=== PATIENT | male | born 1955 | race Caucasian/White ===

== ENCOUNTER 2016-12-28 21:23 | Emergency (ER) | payer MEDICARE ==
[~2016-12-28] VITALS: Ht 167.6 cm; Wt 59.0 kg
[~2016-12-28 21:23] MED LIST: ACHD5005 PO; ALPR.25T PO; ALPR.5T PO; BACL10TA PO; CELE50CA PO; CLCX100C; CLCX200C; CRS350T PO; CYCL10TA9 PO; DULO30CA3 PO; GABA-488 PO; GABA300C PO; HYDR-2890 PO; HYDR-2997 PO; HYDR-3061 PO; HYDR-3583 PO; HYDR-3720; HYDR-3720 PO; HYDR-3731 PO; HYDR-3812 PO; HYDR-3874 PO; HYDR-623 PO; IBUP-15 PO; MECL25TA56 PO; MELO7.5T46 PO; MEPE50TA PO; METH4TAB PO; MIRT15TA6 PO; MORP15TA8 PO; MORP15TA97 PO; NAPR-243 PO; NAPR500T PO; NF-ESOM40C PO; ONDA8TAB9 PO; ORPH100T PO; OXYC-272 PO; OXYC-465 PO; OXYC1CAP3 PO; OXYC1TAB28 PO; PRD20T PO; PREG100C PO; PREG50C PO; SULF1TAB35 PO; TRAM50TA2 PO; TRM50T PO; flexeril PO
[2016-12-28] MEDS ORDERED: DOXYCYCLINE 100 MG (VIBRAMYCIN) TABLET PO SCH (21:45)
[2016-12-28] MEDS ORDERED: DOXY100T2 PO (21:45)
--- NOTE | 2016-12-28 21:46 | ED Integumentary General ---
General Chief Complaint: Bite-Animal/Human/Insect Stated Complaint: TICK BITE Nursing Triage Note: PT TO ED 10 W/ C/O TICK BITE TO BACK. TICK STILL EMBEDDED IN BACK AT THIS TIME PT STATES HE CANNOT REMOVE IT. Source: patient Exam Limitations: no limitations History of Present Illness Time seen by provider: 21:42 Initial Comments To ER with complaints of a tick that is stuck to his back just below the right shoulder blade in such a location that he is unable to reach it himself. Believes this has been present for about 3 days. He complains of some nausea and general malaise but no fevers or joint pains or rash.. Timing/Duration: just prior to arrival Severity: moderate Associated Symptoms: No edema Allergies and Home Medications Allergies Coded Allergies: ibuprofen (Verified Allergy, Unknown, 04/05/15) HYPERTENSION Constitutional: see HPI EENTM: see HPI Respiratory: no symptoms reported Cardiovascular: no symptoms reported Genitourinary: no symptoms reported Musculoskeletal: no symptoms reported Skin: see HPI Endocrine: No Symptoms Reported Past Ijxppbe-Tvpdke-Jifbne Hx Patient Social History Alcohol Use: Denies Use Recreational Drug Use: No (DENIES TO THIS RN) Smoking Status: Current Everyday Smoker Type Used: Cigarettes Recent Foreign Travel: No Contact w/Someone Who Travel: No Recent Infectious Disease Expo: No Recent Hopitalizations: No Immunizations Up To Date Tetanus Booster (TDap): Less than 5yrs PED Vaccines UTD: No Date of Influenza Vaccine: Apr 17, 2014 Seasonal Allergies Seasonal Allergies: No Surgeries HX Surgeries: Yes (back) Surgeries: Appendectomy, Ear Surgery, Gallbladder, Orthopedic Respiratory Hx Respiratory Disorders: Yes (PER OLD RECORDS, PT HAS COPD, BUT PT DENIES) Respiratory Disorders: COPD Cardiovascular Hx Cardiac Disorders: No Neurological Hx Neurological Disorders: Yes (RESTLESS LEG SYNDROME) Reproductive System Hx Reproductive Disorders: No Sexually Transmitted Disease: No HIV/AIDS: No Genitourinary Hx Genitourinary Disorders: No Gastrointestinal Hx Gastrointestinal Disorders: Yes (CHRONIC DYSPHAGIA AND HOARSENESS; ESOPHAGEAL STRICTURE) Gastrointestinal Disorders: Gastroesophageal Reflux Musculoskeletal Hx Musculoskeletal Disorders: Yes (C2-C6 FUSION NECK,ROTATOR CUFF REPAIR; CHRONIC NECK AND BACK PAIN ) Musculoskeletal Disorders: Chronic Back Pain Endocrine Hx Endocrine Disorders: No HEENT HX ENT Disorders: Yes (CHRONIC HOARSENESS. HISTORY OF SKIN CA OF LIP AND EAR) Hearing Impairment: Hard of Hearing Cancer Hx Cancer: Yes Cancer: Skin Psychosocial Hx Psychiatric Problems: Yes (POLYSUBSTANCE ABUSE/OVERDOSES per old records) Behavioral Health Disorders: Anxiety, Suicide Attempts Integumentary HX Skin/Integumentary Disorder: No Blood Transfusions Hx Blood Disorders: No Adverse Reaction to a Blood Tr: No Family Medical History Significant Family History: Cancer Family Medial History: Cancer 03 FATHER (PROSTATE) 03 MOTHER (BREAST CA ) 09 BROTHER (THROAT/PANCREATIC) 09 SISTER (LIVER) DEAFNESS 03 FATHER 09 BROTHER Family history: Breast disease 03 MOTHER (BREAST CA) History of - respiratory disease Prostate cancer 03 FATHER Stroke 03 MOTHER Visual impairment Physical Exam Vital Signs Vital Sign - Last 12Hours 12/28/16 21:31 Temp 99.4 Pulse 82 Resp 20 B/P (MAP) 143/94 Pulse Ox 98 O2 Delivery Room Air Capillary Refill : Less Than 3 Seconds General Appearance: WD/WN, no apparent distress HEENT: PERRL/EOMI, normal ENT inspection Neck: non-tender, full range of motion Respiratory: no respiratory distress, no accessory muscle use Gastrointestinal: normal bowel sounds, non tender, soft Neurologic/Psychiatric: alert, normal mood/affect, oriented x 3 Skin: normal color, warm/dry Skin Problem Location: other (there is a small 2 millimeter in diameter flat brown tick attached to him just inferior to the inferior and medial border of the right scapula. There is about 1 cm of surrounding erythema. No erythema migrans. No other rash. Tick was easily removed with a pair of tweezers.) Progress/Results/Core Measures Results/Orders My Orders Orders - ALBA ROSA APRN Tick Panel With Lyme Eia (12/28/16 21:41) Doxycycline Hyclate Tablet (Vibramycin T (12/28/16 21:45) Vital Signs/I&O Vital Sign - Last 12Hours 12/28/16 21:31 Temp 99.4 Pulse 82 Resp 20 B/P (MAP) 143/94 Pulse Ox 98 O2 Delivery Room Air Blood Pressure Mean: 110 Departure Impression Impression: Primary Impression: Tick bite Disposition: 01 HOME, SELF-CARE Condition: Stable Departure-Patient Inst. Decision time for Depature: 21:45 Referrals: NO,LOCAL PHYSICIAN (PCP/Family) Primary Care Physician Patient Instructions: Insect Bites and Stings (DC) Add. Discharge Instructions: 1. Antibiotics as directed 2. Avoid direct sunlight while you're taking the antibiotics as this may cause a rash 3. Return to ER for any worsening All discharge instructions reviewed with patient and/or family. Voiced understanding. Scripts Doxycycline Hyclate (Doxycycline Hyclate) 100 Mg Tablet 100 MG PO BID, #20 TAB Prov: ALBA ROSA APRN 12/28/16 ALBA ROSA APRN December 28, 2016 21:45
[2016-12-28 21:56] VITALS: BP 0/0
[2016-12-30 13:59] LABS: EHRLICHIA CHAFFEENSIS G ABY <1:16 (<1:16)
[2016-12-30 15:23] LABS: IGG ROCKY MOUNTAIN SPOTTED FEV <1:16 (<1:16); IGM ROCKY MOUNTAIN SPOTTED FEV <1:10 (<1:10); TULAREMIA ANTIBODY <1:20
[2016-12-30 22:03] LABS: LYME AB G M 0.04 Index (0.00-0.89)
[2016-12-31 07:31] LABS: LYME AB INTERP Negative (Negative)
== END 2016-12-28 21:56 | disposition home or self-care (01) ==
LOC: EDUNIT# 21:23 → ER 21:26
DX: S20.461A Insect bite (nonvenomous) of right back wall of thorax, initial encounter (principal); J44.9 Chronic obstructive pulmonary disease, unspecified; F17.210 Nicotine dependence, cigarettes, uncomplicated; W57.XXXA Bitten or stung by nonvenomous insect and other nonvenomous arthropods, initial encounter; Y99.8 Other external cause status
CPT/HCPCS: 36415; 86618; 86666; 86668; 86757; 99283

== ENCOUNTER 2017-01-22 21:33 | Emergency (ER) | payer MEDICARE ==
[~2017-01-22] VITALS: Ht 182.9 cm; Wt 65.8 kg
[~2017-01-22 21:33] MED LIST changes: +DOXY100T2 PO
[2017-01-22 21:59] LABS: BASOPHILS % (AUTO) 1 % (0-10); EOSINOPHILS # (AUTO) 0.1 10^3/uL (0.0-0.3); EOSINOPHILS % (AUTO) 1 % (0-10); LYMPHOCYTES # (AUTO) 3.6 X 10^3 (1.0-4.0); LYMPHOCYTES % (AUTO) 43 % (12-44); MEAN CORPUSCULAR HEMOGLOBIN 32 PG (25-34); MEAN CORPUSCULAR HGB CONC 33 G/DL (32-36); MEAN CORPUSCULAR VOLUME 97 FL (80-99); MEAN PLATELET VOLUME 9.2 FL (7.4-10.4); MONOCYTES # (AUTO) 0.7 X 10^3 (0.0-1.0); MONOCYTES % (AUTO) 8 % (0-12); NEUTROPHILS # (AUTO) 4.1 X 10^3 (1.8-7.8); NEUTROPHILS % (AUTO) 48 % (42-75); PLATELET COUNT 210 10^3/uL (130-400); RED CELL DISTRIBUTION WIDTH 13.6 % (10.0-14.5); WHITE BLOOD COUNT 8.5 10^3/uL (4.3-11.0)
[2017-01-22 22:12] LABS: ALANINE AMINOTRANSFERASE 11 U/L (0-55); ALBUMIN 4.1 G/DL (3.2-4.5); ANION GAP 12 MMOL/L (5-14); ASPARTATE AMINO TRANSFERASE 14 U/L (5-34); BILIRUBIN,TOTAL 0.4 MG/DL (0.1-1.0); BLOOD UREA NITROGEN 18 MG/DL (7-18); BUN/CREATININE RATIO 21; CALCIUM 9.4 MG/DL (8.5-10.1); CARBON DIOXIDE 23 MMOL/L (21-32); CHLORIDE 106 MMOL/L (98-107); CREATININE SERUM 0.85 MG/DL (0.60-1.30); GFR ESTIMATED > 60; GLUCOSE 97 MG/DL (70-105); POTASSIUM 3.4 MMOL/L (3.6-5.0); SODIUM 141 MMOL/L (135-145); TOTAL PROTEIN 7.2 G/DL (6.4-8.2)
[2017-01-22 22:13] LABS: ALCOHOL < 10 MG/DL (<10)
[2017-01-22 22:14] LABS: CREATINE KINASE 109 U/L (30-200)
[2017-01-22 22:20] LABS: MYOGLOBIN SERUM 26.5 NG/ML (10.0-92.0)
[2017-01-22] MEDS: fentaNYL INJECTION 100 MCG/2 ML AMP IVP ONE ×2 (22:43→23:51)
[2017-01-22 23:56] LABS: BILIRUBIN,URINE NEGATIVE (NEGATIVE); KETONES,URINE NEGATIVE (NEGATIVE); LEUKOCYTE ESTERASE ,URINE NEGATIVE (NEGATIVE); NITRITE,URINE NEGATIVE (NEGATIVE); PH,URINE 5 (5-9); PROTEIN,URINE 1+ (NEGATIVE); UROBILINOGEN,URINE 1 MG/DL (NORMAL)
[2017-01-23 00:02] LABS: SQUAMOUS EPITHELIAL CELL,UR RARE /HPF
[2017-01-23 00:03] LABS: CALCIUM OXALATE CRYSTALS,UR FEW /LPF
[2017-01-23] MEDS: IOHEXOL 350 MG/ML 100 ML (OMNIPAQUE 350) VIAL IV ONE (00:12)
[2017-01-23] MEDS: NS 100 ML (IVPB) BAG IV ONE (00:12)
[2017-01-23] MEDS: FAMOTIDINE 20MG/2ML IV (PEPCID) IV STA (01:23)
[2017-01-23] MEDS: ANTACID SUSP 30 ML UDC (MYLANTA) PO ONE (01:23)
[2017-01-23] MEDS: LIDOCAINE 2% VISCOUS 15 ML UDC PO ONE (01:23)
--- NOTE | 2017-01-23 02:01 | ED General ---
General Chief Complaint: Dizziness/Syncope Stated Complaint: DIZZINESS/PT FELL OUTSIDE THE HOSPITAL Nursing Triage Note: PTS FAMILY BROUGHT THE PT TO ED, FAMILY STATES HE FELL IN THE PARKING LOT, C-COLLAR APPLIED UPON ARRIVAL INTO ED. THE PT STATES THAT HE HAS BEEN BLACKING OUT THE PAST FEW DAYS. IS ORIENTED TO PERSON ONLY AND VERY LETHARGIC Nursing Sepsis Screen: No Definite Risk Source of Information: Patient, Family Exam Limitations: No Limitations History of Present Illness Time Seen by Provider: 21:40 Initial Comments This 61-year-old man was brought to the emergency room by his family. They did not stay. They told nursing staff that they had not seen him in many years and did not know his history well. This provider did not have opportunity to visit with family. Patient is relatively poor historian. He reports that he has been having "blacking out" episodes over the past few days. He has generalized weakness. He had some chest pain over the past few days but none now. The symptoms of "blackouts" only happen upon standing. He is a 3 pack per day smoker. He reports head and neck pain at present. He is in a c-collar. He fell in the parking lot on the way into the building. Patient reports that he hurts all over. Allergies and Home Medications Allergies Coded Allergies: ibuprofen (Verified Allergy, Unknown, 04/05/15) HYPERTENSION Home Medications Doxycycline Hyclate 100 Mg Tablet, 100 MG PO BID, #20 Prescribed by: ALBA ROSA on 12/28/16 1975 Omeprazole 20 Mg Tablet.dr, 20 MG PO BID, #30 Prescribed by: KRISTINA GOMES on 01/23/17 0217 Constitutional: see HPI, weakness EENTM: see HPI Respiratory: no symptoms reported Cardiovascular: no symptoms reported Gastrointestinal: no symptoms reported Genitourinary: no symptoms reported Musculoskeletal: see HPI Skin: no symptoms reported Psychiatric/Neurological: See HPI Hematologic/Lymphatic: No Symptoms Reported Past Oescwri-Wavxpk-Xizeoj Hx Patient Social History Alcohol Use: Denies Use Recreational Drug Use: No Smoking Status: Current Everyday Smoker Type Used: Cigarettes Recent Foreign Travel: No Contact w/Someone Who Travel: No Recent Infectious Disease Expo: No Recent Hopitalizations: No Immunizations Up To Date Tetanus Booster (TDap): Less than 5yrs PED Vaccines UTD: No Date of Influenza Vaccine: Apr 17, 2014 Seasonal Allergies Seasonal Allergies: No Surgeries HX Surgeries: Yes (back) Surgeries: Appendectomy, Ear Surgery, Gallbladder, Orthopedic Respiratory Hx Respiratory Disorders: Yes (PER OLD RECORDS, PT HAS COPD, BUT PT DENIES) Respiratory Disorders: COPD Cardiovascular Hx Cardiac Disorders: No Neurological Hx Neurological Disorders: Yes (RESTLESS LEG SYNDROME) Reproductive System Hx Reproductive Disorders: No Sexually Transmitted Disease: No HIV/AIDS: No Genitourinary Hx Genitourinary Disorders: No Gastrointestinal Hx Gastrointestinal Disorders: Yes (CHRONIC DYSPHAGIA AND HOARSENESS; ESOPHAGEAL STRICTURE) Gastrointestinal Disorders: Gastroesophageal Reflux Musculoskeletal Hx Musculoskeletal Disorders: Yes (C2-C6 FUSION NECK,ROTATOR CUFF REPAIR; CHRONIC NECK AND BACK PAIN ) Musculoskeletal Disorders: Chronic Back Pain Endocrine Hx Endocrine Disorders: No HEENT HX ENT Disorders: Yes (CHRONIC HOARSENESS. HISTORY OF SKIN CA OF LIP AND EAR) Hearing Impairment: Hard of Hearing Cancer Hx Cancer: Yes Cancer: Skin Psychosocial Hx Psychiatric Problems: Yes (POLYSUBSTANCE ABUSE/OVERDOSES per old records) Behavioral Health Disorders: Anxiety, Suicide Attempts Integumentary HX Skin/Integumentary Disorder: No Blood Transfusions Hx Blood Disorders: No Adverse Reaction to a Blood Tr: No Family Medical History Significant Family History: Cancer Family Medial History: Cancer 03 FATHER (PROSTATE) 03 MOTHER (BREAST CA ) 09 BROTHER (THROAT/PANCREATIC) 09 SISTER (LIVER) DEAFNESS 03 FATHER 09 BROTHER Family history: Breast disease 03 MOTHER (BREAST CA) History of - respiratory disease Prostate cancer 03 FATHER Stroke 03 MOTHER Visual impairment Physical Exam Vital Signs Vital Sign - Last 12Hours 01/22/17 01/23/17 21:35 02:07 Temp 98.7 Pulse 79 Resp 22 B/P (MAP) 161/89 Pulse Ox 97 Capillary Refill : Less Than 3 Seconds General Appearance: No Apparent Distress, WD/WN HEENT: PERRL/EOMI, Normal ENT Inspection, Pharynx Normal Neck: Normal Inspection, Tender Midline, Other (In c-collar, tender posteriorly ) Respiratory: Lungs Clear, Normal Breath Sounds, No Accessory Muscle Use, No Respiratory Distress Cardiovascular: Regular Rate, Rhythm, No Edema, No Murmur Gastrointestinal: Normal Bowel Sounds, Non Tender, Soft Extremity: Normal Inspection, Non Tender, No Calf Tenderness, No Pedal Edema Neurologic/Psychiatric: Alert, No Motor/Sensory Deficits, pedigree researcher II-XII Norm as Tested, Other (Appears hypersomnolent and mildly confused. Somewhat poor historian) Skin: Normal Color, Warm/Dry Progress/Results/Core Measures Results/Orders Lab Results Laboratory Tests Test 01/22/17 21:39 01/22/17 23:49 Range/Units White Blood Count 8.5 4.3-11.0 10^3/uL Red Blood Count 4.50 4.35-5.85 10^6/uL Hemoglobin 14.5 13.3-17.7 G/DL Hematocrit 44 40-54 % Mean Corpuscular Volume 97 80-99 FL Mean Corpuscular Hemoglobin 32 25-34 PG Mean Corpuscular Hemoglobin Concent 33 32-36 G/DL Red Cell Distribution Width 13.6 10.0-14.5 % Platelet Count 210 130-400 10^3/uL Mean Platelet Volume 9.2 7.4-10.4 FL Neutrophils (%) (Auto) 48 42-75 % Lymphocytes (%) (Auto) 43 12-44 % Monocytes (%) (Auto) 8 0-12 % Eosinophils (%) (Auto) 1 0-10 % Basophils (%) (Auto) 1 0-10 % Neutrophils # (Auto) 4.1 1.8-7.8 X 10^3 Lymphocytes # (Auto) 3.6 1.0-4.0 X 10^3 Monocytes # (Auto) 0.7 0.0-1.0 X 10^3 Eosinophils # (Auto) 0.1 0.0-0.3 10^3/uL Basophils # (Auto) 0.0 0.0-0.1 10^3/uL Prothrombin Time 13.0 12.2-14.7 SEC INR Comment 1.0 0.8-1.4 Activated Partial Thromboplast Time 29 24-35 SEC Sodium Level 141 135-145 MMOL/L Potassium Level 3.4 L 3.6-5.0 MMOL/L Chloride Level 106 98-107 MMOL/L Carbon Dioxide Level 23 21-32 MMOL/L Anion Gap 12 5-14 MMOL/L Blood Urea Nitrogen 18 7-18 MG/DL Creatinine 0.85 0.60-1.30 MG/DL Estimat Glomerular Filtration Rate > 60 BUN/Creatinine Ratio 21 Glucose Level 97 70-105 MG/DL Calcium Level 9.4 8.5-10.1 MG/DL Magnesium Level 2.0 1.8-2.4 MG/DL Total Bilirubin 0.4 0.1-1.0 MG/DL Aspartate Amino Transf (AST/SGOT) 14 5-34 U/L Alanine Aminotransferase (ALT/SGPT) 11 0-55 U/L Alkaline Phosphatase 82 40-136 U/L Total Creatine Kinase 109 30-200 U/L Myoglobin 26.5 10.0-92.0 NG/ML Troponin I < 0.30 <0.30 NG/ML C-Reactive Protein High Sensitivity 0.17 0.00-0.50 MG/DL Total Protein 7.2 6.4-8.2 G/DL Albumin 4.1 3.2-4.5 G/DL Lipase 18 8-78 U/L Free Thyroxine 1.02 0.70-1.48 NG/DL TSH Benzie Testing 0.31 L 0.35-4.94 UIU/ML Serum Alcohol < 10 <10 MG/DL Urine Color YELLOW Urine Clarity CLEAR Urine pH 5 5-9 Urine Specific [place] 1.025 H 1.016-1.022 Urine Protein 1+ H NEGATIVE Urine Glucose (UA) NEGATIVE NEGATIVE Urine Ketones NEGATIVE NEGATIVE Urine Nitrite NEGATIVE NEGATIVE Urine Bilirubin NEGATIVE NEGATIVE Urine Urobilinogen 1 NORMAL MG/DL Urine Leukocyte Esterase NEGATIVE NEGATIVE Urine RBC (Auto) NEGATIVE NEGATIVE Urine RBC NONE /HPF Urine WBC NONE /HPF Urine Squamous Epithelial Cells RARE /HPF Urine Crystals PRESENT H /LPF Urine Calcium Oxalate Crystals FEW H /LPF Urine Bacteria TRACE /HPF Urine Casts NONE /LPF Urine Mucus MODERATE H /LPF Urine Culture Indicated NO Urine Opiates Screen POSITIVE H NEGATIVE Urine Oxycodone Screen NEGATIVE NEGATIVE Urine Methadone Screen NEGATIVE NEGATIVE Urine Propoxyphene Screen NEGATIVE NEGATIVE Urine Barbiturates Screen NEGATIVE NEGATIVE Ur Tricyclic Antidepressants Screen NEGATIVE NEGATIVE Urine Phencyclidine Screen NEGATIVE NEGATIVE Urine Amphetamines Screen NEGATIVE NEGATIVE Urine Methamphetamines Screen NEGATIVE NEGATIVE Urine Benzodiazepines Screen POSITIVE H NEGATIVE Urine Cocaine Screen NEGATIVE NEGATIVE Urine Cannabinoids Screen NEGATIVE NEGATIVE My Orders Orders - KRISTINA MONCADA MD Accucheck Stat ONCE (01/22/17 21:43) Saline Lock/Iv-Start (01/22/17 21:43) Ekg Tracing (01/22/17 21:43) Monitor-Rhythm Ecg Trace Only (01/22/17 21:43) Alcohol (01/22/17 21:43) Cbc With Automated Diff (01/22/17 21:43) Comprehensive Metabolic Panel (01/22/17 21:43) Magnesium (01/22/17 21:43) Thyroid Analyzer (01/22/17 21:43) Ua Culture If Indicated (01/22/17 21:43) Chest 1 View, Ap/Pa Only (01/22/17 21:43) Pelvis (01/22/17 21:43) Ct Head/Cervical Spine Wo (01/22/17 21:46) Cardiac Profile 1 (01/22/17 21:54) Myoglobin Serum (01/22/17 21:54) Protime With Inr (01/22/17 21:54) Partial Thromboplastin Time (01/22/17 21:54) O2 (01/22/17 21:54) Creatine Kinase (01/22/17 21:54) Fentanyl Injection (Sublimaze Injection (01/22/17 22:00) Hs C Reactive Protein (01/22/17 21:56) Tick Panel With Lyme Eia (01/22/17 21:56) Free T4 (Free Thyroxine) (01/22/17 21:39) Drug Screen Stat (Urine) (01/22/17 23:06) Straight Cath (Urinary) (01/22/17 23:43) Fentanyl Injection (Sublimaze Injection (01/22/17 23:45) Lipase (01/22/17 23:45) Ct Abdomen/Pelvis W (01/23/17 00:01) Iohexol Injection (Omnipaque 350 Mg/Ml 1 (01/23/17 00:15) Ns (Ivpb) (Sodium Chloride 0.9% Ivpb Bag (01/23/17 00:15) Lidocaine 2% Viscous 15 Ml (Xylocaine Vi (01/23/17 01:15) Antacid Suspension (Mylanta Suspension (01/23/17 01:15) Famotidine Injection (Pepcid Injection) (01/23/17 01:15) Medications Given in ED Current Medications Medications Dose Ordered Sig/Isabell Route Start Time Stop Time Status Last Admin Dose Admin Al Hydrox/Mg Hydrox/Simethicone 30 ml ONCE ONCE PO 01/23/17 01:15 01/23/17 01:18 DC 01/23/17 01:23 30 ML Fentanyl Citrate 50 mcg ONCE ONCE IVP 01/22/17 22:00 01/22/17 22:01 DC 01/22/17 22:43 50 MCG Fentanyl Citrate 50 mcg ONCE ONCE IVP 01/22/17 23:45 01/22/17 23:46 DC 01/22/17 23:51 50 MCG Iohexol 100 ml ONCE ONCE IV 01/23/17 00:15 01/23/17 00:16 DC 01/23/17 00:12 100 ML Lidocaine HCl 15 ml ONCE ONCE PO 01/23/17 01:15 01/23/17 01:18 DC 01/23/17 01:23 15 ML Sodium Chloride 100 ml ONCE ONCE IV 01/23/17 00:15 01/23/17 00:16 DC 01/23/17 00:12 80 ML Vital Signs/I&O Vital Sign - Last 12Hours 01/22/17 01/23/17 21:35 02:07 Temp 98.7 98.7 Pulse 79 72 Resp 22 18 B/P (MAP) 161/89 Pulse Ox 97 Blood Pressure Mean: 113 Progress Note : Progress Note Patient's workup is relatively unremarkable. His urine did test positive for benzodiazepines and opioids. He denies opioid use but states he does use anxiety medication prescribed by Dr. Lopez. His mentation gradually improved throughout his ER visit which makes benzodiazepine overdose suspicious. Patient was alert and freely ambulatory by the end of his ER stay. He did complain of significant abdominal pain. CT of the abdomen and pelvis showed no abnormalities to account for his pain. Pain improved significantly with GI cocktail and Pepcid. PPI therapy was advised for the abdominal pain ECG Initial ECG Impression Date: Jan 22, 2017 Initial ECG Impression Time: 21:38 Initial ECG Rate: 74 Initial ECG Rhythm: Normal Sinus Initial ECG Intervals: Normal Initial ECG Impression: Normal Comment Normal sinus rhythm with no ST elevation or depression. No abnormal intervals or axis deviation. Diagnostic Imaging Diagonstic Imaging: CT Plain Films/CT/US/NM/MRI: abdomen, pelvis Comments CT abdomen and pelvis viewed by me. Stat rad report reviewed. There were no findings to account for patient's pain. Diagonstic Imaging: CT Plain Films/CT/US/NM/MRI: c-spine, head Comments CT head and C-spine viewed by me. Stat rad report reviewed. No intracranial or school injuries appreciated. Slight loss of height in T2 and T1 without visible fracture. Likely chronic. Departure Impression Impression: Primary Impression: Benzodiazepine overdose Qualified Codes: T42.4X1A - Poisoning by benzodiazepines, accidental ( unintentional), initial encounter Additional Impressions: Altered mental status Qualified Codes: R41.82 - Altered mental status, unspecified Upper abdominal pain Fall on same level Qualified Codes: W18.30XA - Fall on same level, unspecified, initial encounter Disposition: HOME, SELF-CARE Condition: Improved Departure-Patient Inst. Decision time for Depature: 01:58 Referrals: NO,LOCAL PHYSICIAN (PCP/Family) Primary Care Physician Patient Instructions: Acute Abdomen (Belly Pain) Add. Discharge Instructions: Avoid use of any sedating anxiety medication until further conversation with Dr. Lopez. Your altered mental status tonight may have been related to overdose of benzodiazepines. Use your omeprazole as prescribed. Avoid the following: Eating large meals, eating close to bedtime, alcohol, tobacco, tomato products, carbonation, caffeine, chocolate, citrus fruits and juices, spicy foods, mint, NSAID medications such as ibuprofen or naproxen, fatty or greasy foods, or anything else you know irritates your stomach. All discharge instructions reviewed with patient and/or family. Voiced understanding. Scripts Omeprazole (Omeprazole) 20 Mg Tablet. 20 MG PO BID, #30 TAB Prov: KRISTINA MONCADA MD 01/23/17 KRISTINA MONCADA MD Jan 23, 2017 02:01
[2017-01-23 02:07] VITALS: BP 136/87
[2017-01-23] MEDS ORDERED: OMEP20TA7 PO (02:17)
--- NOTE | 2017-01-23 07:25 | Diagnostic Imaging Report ---
PROCEDURE: CT abdomen and pelvis with contrast. TECHNIQUE: Multiple contiguous axial images were obtained through the abdomen and pelvis after administration of intravenous contrast. INDICATION: Fall, left-sided pain. Exam compared 05/03/2015. FINDINGS: There is no hydronephrosis. No stone disease at this postcontrast enhanced exam found. The liver, spleen, adrenals and pancreas are nonacute. There is no biliary dilatation. There is no focal inflammatory process and there is no bowel obstruction. There is no ascites, abscess, hematoma or other fluid collection. The appendix could not be identified. No regional inflammatory changes. There is some thickening of the muñoz of the urinary bladder which may be chronic or reflect cystitis correlate clinically. There are postoperative changes to the lumbar spine. Lung base is nonacute. IMPRESSION: No obstructive features or free fluid. No fluid collection or perforation. Nonidentification of the appendix but no regional inflammation. Thickening of the urinary bladder muñoz may be chronic or reflect cystitis correlate clinically. No other potential acute finding. I agree with the preliminary. Dictated by: Dictated on workstation # [id number]
--- NOTE | 2017-01-23 07:26 | Diagnostic Imaging Report ---
AP view of the pelvis. INDICATION: Fall. FINDINGS: There is no fracture, dislocation or radiopaque foreign body. Mild degenerative changes in the hip joints seen and there is anterior and posterior fusion changes noted involving L3 to L5 levels. IMPRESSION: No acute process. Dictated by: Dictated on workstation # [id number]
--- NOTE | 2017-01-23 07:26 | Diagnostic Imaging Report ---
INDICATION: Fall, neck pain. COMPARISON: 08/17/2015 Lungs showed no focal consolidation with some air trapping similar to the prior. No failure, effusion, pneumothorax or displaced chest wall fracture. IMPRESSION: No acute appearing abnormality. Dictated by: Dictated on workstation # [id number]
--- NOTE | 2017-01-23 07:30 | Diagnostic Imaging Report ---
PROCEDURE: CT head and CT cervical spine without contrast. TECHNIQUE: Multiple contiguous axial images were obtained through the brain and cervical spine without the use of intravenous contrast. Sagittal and coronal reformations through the cervical spine were then performed. INDICATION: Fall, neck pain. Head CT compared 08/10/2016. CT head: Patchy areas of white matter hypodensity bilaterally are redemonstrated and showed no obvious change from the prior. There is no sulcal effacement and no findings of cortical edema. No evidence for elevation of the intracranial pressures. No mass effect. Calvarium is nonacute. There is opacification of right-sided mastoid air cells as well as the middle ear cavity as a new finding from prior. No asymmetry to the nasopharyngeal tissues. The paranasal sinus is clear. CT cervical spine: Study compared 05/03/2015. Cervical anterior and interbody cervical fusions from C3 through C7 levels redemonstrated. C6-C7 interbody fusion appears unincorporated with irregular sclerotic endplates this is unchanged. Solid fusion at C3-C4 present. There is no appreciable bony bridging across the C4-C5 levels. The C5-C6 fusion is solid. Findings all unchanged. Some mild wedging at T2 anteriorly with depression of its superior endplate stable from priors. An acute bony abnormality is not found. IMPRESSION: CT head: Fairly substantial multifocal areas of chronic white matter hypodensity stable from priors. No hemorrhage or acute pathology intracranially. Right-sided mastoid opacification and involvement of the right middle ear cavity. Correlate clinically as process such as otitis media could not be excluded. CT cervical spine: Unchanged from priors, extensive multilevel postoperative changes with levels of chronic pseudoarthrosis unchanged. No acute bony pathology or malalignment. Dictated by: Dictated on workstation # [id number]
== END 2017-01-23 02:08 | disposition home or self-care (01) ==
LOC: EDUNIT# 21:33 → ER 21:37
DX: R41.82 Altered mental status, unspecified (principal); R51 Headache; M54.2 Cervicalgia; R10.9 Unspecified abdominal pain; T42.4X1A Poisoning by benzodiazepines, accidental (unintentional), initial encounter; W18.30XA Fall on same level, unspecified, initial encounter; Y92.238 Other place in hospital as the place of occurrence of the external cause
CPT/HCPCS: 36415; 70450; 71010; 72125; 72170; 74177; 80053; 80306; 80320; 81000; 82550; 83690; 83735; 83874; 84439; 84443; 84484; 85025; 85610; 85730; 86141; 86618; 86666; 86668; 86757; 93041

== ENCOUNTER 2017-04-16 16:50 | Emergency (ER) | payer MEDICARE, MEDICAID ==
[~2017-04-16] VITALS: Ht 167.6 cm; Wt 59.0 kg
[~2017-04-16 16:50] MED LIST changes: +OMEP20TA7 PO
[2017-04-16] MEDS ORDERED: fentaNYL INJECTION 100 MCG/2 ML AMP IM STA (17:56)
[2017-04-16] MEDS ORDERED: CYCLOBENZAPRINE 10 MG (FLEXERIL) TAB PO STA (17:56)
--- NOTE | 2017-04-16 18:03 | ED Back Pain ---
General Chief Complaint: Back Problems Stated Complaint: BACK PAIN Nursing Triage Note: PT HAS HX OF CHRONIC PAIN BACK. STEPPED IN A HOLE YESTERDAY, NOW HAVING INCREASINGLY WORSE LOWER BACK PAIN. PT DENIES HITTING HEAD OR LOC. Nursing Sepsis Screen: No Definite Risk History of Present Illness Time Seen by Provider: 17:45 Initial Comments Patient reports yesterday he was helping a friend lift chicken pens, he stepped in a hole and twisted his lumbar spine. Since then he's been having pain in the lower lumbar spine that radiates into both legs. He denies any bowel or bladder incontinence or retention. He's had 2 previous spine surgeries by Dr. Castillo the last one being approximately 18 months ago. He reports no back pain prior to the injury yesterday. Location: Lumbar Spine, Paraspinous Muscles Timing/Duration: 1 Day Severity: Moderate Pain/Injury Location: Back Radiation: Lower Legs, Upper Legs Method of Injury: Other (twisted back) Modifying Factors: Improves With Rest Associated Symptoms: muscle spasms, numbness in legs/feet, tingling in legs/ feet, lower back pain, No loss of bladder control, No loss of bowel control Allergies and Home Medications Allergies Coded Allergies: ibuprofen (Verified Allergy, Unknown, 04/05/15) HYPERTENSION Home Medications Cyclobenzaprine HCl 10 Mg Tablet, 10 MG PO Q8H PRN for SPASMS, #12 Ref 0 Prescribed by: FRAN MORFIN on 04/16/171908 Doxycycline Hyclate 100 Mg Tablet, 100 MG PO BID, #20 Prescribed by: ALBA ROSA on 12/28/16 2145 Omeprazole 20 Mg Tablet., 20 MG PO BID, #30 Prescribed by: KRISTINA GOMES on 01/23/17 0217 Tramadol HCl 50 Mg Tablet, 50 MG PO Q8H, #12 Ref 0 Prescribed by: FRAN MORFIN on 04/16/171908 Constitutional: no symptoms reported, see HPI Musculoskeletal: see HPI, back pain, other (paresthesias and radicular symptoms bilateral lower extremities.) All Other Systems Reviewed Negative Unless Noted: Yes Past Kityvxg-Lnqalu-Nuryvs Hx Patient Social History Alcohol Use: Denies Use Recreational Drug Use: No Smoking Status: Current Everyday Smoker Type Used: Cigarettes Recent Foreign Travel: No Contact w/Someone Who Travel: No Recent Infectious Disease Expo: No Recent Hopitalizations: No Physical Abuse: No Sexual Abuse: No Immunizations Up To Date Tetanus Booster (TDap): Less than 5yrs PED Vaccines UTD: No Date of Influenza Vaccine: Apr 17, 2014 Seasonal Allergies Seasonal Allergies: No Surgeries History of Surgeries: Yes (BACK, NECK, CARPAL TUNNEL) Surgeries: Appendectomy, Ear Surgery, Gallbladder, Orthopedic Respiratory History of Respiratory Disorde: Yes (PER OLD RECORDS, PT HAS COPD, BUT PT DENIES) Respiratory Disorders: COPD Cardiovascular History of Cardiac Disorders: No Neurological History of Neurological Disord: Yes (RESTLESS LEG SYNDROME) Reproductive System Hx Reproductive Disorders: No Sexually Transmitted Disease: No HIV/AIDS: No Gastrointestinal History of Gastrointestinal Di: Yes (CHRONIC DYSPHAGIA AND HOARSENESS; ESOPHAGEAL STRICTURE) Gastrointestinal Disorders: Gastroesophageal Reflux Musculoskeletal History of Musculoskeletal Dis: Yes (C2-C6 FUSION NECK,ROTATOR CUFF REPAIR; CHRONIC NECK AND BACK PAIN ) Musculoskeletal Disorders: Chronic Back Pain Endocrine History of Endocrine Disorders: No HEENT Hearing Impairment: Hard of Hearing Cancer History of Cancer: Yes Cancer: Skin Psychosocial History of Psychiatric Problem: Yes (POLYSUBSTANCE ABUSE/OVERDOSES per old records) Behavioral Health Disorders: Anxiety, Suicide Attempts Suicide Risk Score: 0 Integumentary History of Skin or Integumenta: No Blood Transfusions History of Blood Disorders: No Adverse Reaction to a Blood Tr: No Reviewed Nursing Assessment Reviewed/Agree w Nursing PMH: Yes Family Medical History Significant Family History: Cancer Family Medial History: Cancer 03 FATHER (PROSTATE) 03 MOTHER (BREAST CA ) 09 BROTHER (THROAT/PANCREATIC) 09 SISTER (LIVER) DEAFNESS 03 FATHER 09 BROTHER Family history: Breast disease 03 MOTHER (BREAST CA) History of - respiratory disease Prostate cancer 03 FATHER Stroke 03 MOTHER Visual impairment Physical Exam Vital Signs Vital Sign - Last 12Hours 04/16/17 17:09 Temp 98.0 Pulse 69 Resp 16 B/P (MAP) 137/84 Pulse Ox 98 O2 Delivery Room Air Capillary Refill : Less Than 3 Seconds General Appearance: No Apparent Distress, WD/WN HEENT: PERRL/EOMI, TMs Normal, Normal ENT Inspection, Pharynx Normal Neck: Full Range of Motion, Normal Inspection, Non Tender, Supple Cardiovascular: Regular Rate, Rhythm, No Edema Respiratory: Chest Non Tender, Lungs Clear, Normal Breath Sounds Gastrointestinal: Normal Bowel Sounds, No Organomegaly, No Pulsatile Mass, Non Tender, Soft Back: Normal Inspection, No CVA Tenderness, Decreased Range of Motion ( secondary to pain), Muscle Spasm (lower lumbar spine), Other (able to ambulate with antalgic gait. Able to rise on tiptoes and heels. Power 5 over 5 L4 to S1. Pain reproduced in low back with straight leg raising.) Extremity: Normal Capillary Refill, Normal Inspection, Normal Range of Motion Neurologic/Psychiatric: Alert, Oriented x3, No Motor/Sensory Deficits, Normal Mood/Affect Skin: Normal Color, Warm/Dry Lymphatic: No Adenopathy Progress/Results/Core Measures Results/Orders My Orders Orders - FRAN MORFIN Cyclobenzaprine Tablet (Flexeril Tablet) (04/16/17 17:56) Fentanyl Injection (Sublimaze Injection (04/16/17 17:56) Lumbar Spine - 2-3 Views (04/16/17 17:56) Vital Signs/I&O Vital Sign - Last 12Hours 04/16/17 17:09 Temp 98.0 Pulse 69 Resp 16 B/P (MAP) 137/84 Pulse Ox 98 O2 Delivery Room Air Blood Pressure Mean: 101 Progress Note : Time: 17:45 Progress Note Initial evaluation completed, we'll do x-rays of the lumbar spine, fentanyl 50 g IM, Flexeril 10 mg by mouth. 1830 patient reports pain has improved significantly. Viewed x-ray results with patient. Discharge planning completed. Diagnostic Imaging Diagonstic Imaging: Xray Plain Films/CT/US/NM/MRI: other (lumbar spine) Comments NAME: LU[facility]LE[facility] REC#: [id number] PT STATUS: REG ER : 1955 PHYSICIAN: FRAN MORFIN ADMIT DATE: 04/16/17/ER Signed Date of Exam: 04/16/17 LUMBAR SPINE - 2-3 VIEWS INDICATION: Fall with low back pain which radiates into both legs. FINDINGS: AP and lateral views of the lumbar spine are obtained. COMPARISON is made to study of 08/03/2016. Posterior interlinked spinal fixation rods with intervening discectomies are present from L3-L5. There has been slight worsening of disc space narrowing and endplate spurring at the L1-2 and L2-3 levels. No fracture is identified. There is no evidence of orthopedic hardware complication. Stimulator device is also in stable position. IMPRESSION: Mild worsening of degenerative disc disease above the fused levels. Otherwise, no acute abnormality or adverse change is seen. Dictated by: Dictated on workstation # [id number] Dict: 04/16/17 1826 Trans: 04/16/171848 Interpreted by: LOUIE DUARTE MD Electronically signed by: LOUIE DUARTE MD 04/16/179 Reviewed: Reviewed by Me Departure Impression Impression: Primary Impression: Back pain Qualified Codes: M54.42 - Lumbago with sciatica, left side; M54.41 - Lumbago with sciatica, right side Additional Impression: Lumbar strain Qualified Codes: S39.012A - Strain of muscle, fascia and tendon of lower back , initial encounter Disposition: 01 HOME, SELF-CARE Condition: Stable Departure-Patient Inst. Decision time for Depature: 18:40 Referrals: NO,LOCAL PHYSICIAN (PCP/Family) Primary Care Physician Patient Instructions: Lumbar Muscle Strain (DC), Low Back Pain (DC) Add. Discharge Instructions: Ice to low back 20 minutes every 2-3 hours. Ibuprofen 600 mg every 8 hours. Use tramadol and Flexeril as needed. Follow-up with Dr. Castillo next week. Return to emergency department if symptoms worsen, inability to control or incontinence of urine or bowel movements, new problems or concerns. All discharge instructions reviewed with patient and/or family. Voiced understanding. Scripts Tramadol HCl (Tramadol HCl) 50 Mg Tablet 50 MG PO Q8H for Pain, #12 TAB 0 Refills Prov: FRAN MORFIN 04/16/17 Cyclobenzaprine HCl (Cyclobenzaprine HCl) 10 Mg Tablet 10 MG PO Q8H Y for SPASMS, #12 TAB 0 Refills Prov: FRAN MORFIN 04/16/17 Copy Copies To 1: KACEY CASTILLO MD, AMY ARNP Apr 16, 2017 18:02
--- NOTE | 2017-04-16 18:49 | Diagnostic Imaging Report ---
INDICATION: Fall with low back pain which radiates into both legs. FINDINGS: AP and lateral views of the lumbar spine are obtained. COMPARISON is made to study of 08/03/2016. Posterior interlinked spinal fixation rods with intervening discectomies are present from L3-L5. There has been slight worsening of disc space narrowing and endplate spurring at the L1-2 and L2-3 levels. No fracture is identified. There is no evidence of orthopedic hardware complication. Stimulator device is also in stable position. IMPRESSION: Mild worsening of degenerative disc disease above the fused levels. Otherwise, no acute abnormality or adverse change is seen. Dictated by: Dictated on workstation # [id number]
[2017-04-16] MEDS ORDERED: TRAM50TA2 PO (19:09)
[2017-04-16] MEDS ORDERED: CYCL10TA9 PO (19:09)
[2017-04-16 19:19] VITALS: BP 0/0
[2017-06-29] MEDS ORDERED: ASPI-586 PO (07:18)
[2017-06-29] MEDS ORDERED: CLOP75TA69 PO (07:18)
[2017-06-29] MEDS ORDERED: ATOR10TA PO (10:14)
== END 2017-04-16 19:21 | disposition home or self-care (01) ==
LOC: EDUNIT# 16:50 → ER 16:51
DX: S39.012A Strain of muscle, fascia and tendon of lower back, initial encounter (principal); J44.9 Chronic obstructive pulmonary disease, unspecified; G25.81 Restless legs syndrome; K21.9 Gastro-esophageal reflux disease without esophagitis; F41.9 Anxiety disorder, unspecified; F17.210 Nicotine dependence, cigarettes, uncomplicated; Z91.5 Personal history of self-harm; Z90.49 Acquired absence of other specified parts of digestive tract; Z80.42 Family history of malignant neoplasm of prostate; Z80.0 Family history of malignant neoplasm of digestive organs; W17.2XXA Fall into hole, initial encounter
CPT/HCPCS: 72100; 96372; 99281

== ENCOUNTER 2017-05-06 18:59 | Emergency (ER) | payer MEDICAID, MEDICARE ==
[~2017-05-06] VITALS: Ht 167.6 cm; Wt 59.0 kg
[2017-05-06] MEDS ORDERED: PRD20T PO (19:10)
[2017-05-06] MEDS ORDERED: CYCL5TAB PO (19:10)
--- NOTE | 2017-05-06 19:10 | ED Back Pain ---
General Stated Complaint: BACK PAIN Source of Information: Patient Exam Limitations: No Limitations History of Present Illness Time Seen by Provider: 19:08 Initial Comments To ER with low back pain radiating down left leg. No saddle anesthesia. No fevers or chills. No loss of bowel or bladder control. This is been ongoing for 3 days. He is brought to ER by his girlfriend would like him to be checked for "drugs" she believes that to be the only reason he is here. However she would like me to do this without telling him. Location: Lumbar Spine Severity: Mild Allergies and Home Medications Allergies Coded Allergies: ibuprofen (Verified Allergy, Unknown, 04/05/15) HYPERTENSION Home Medications Cyclobenzaprine HCl 10 Mg Tablet, 10 MG PO Q8H PRN for SPASMS, #12 Ref 0 Prescribed by: FRAN MORFIN on 04/16/17 190 Doxycycline Hyclate 100 Mg Tablet, 100 MG PO BID, #20 Prescribed by: ALBA ROSA on 12/28/16 2145 Omeprazole 20 Mg Tablet.dr, 20 MG PO BID, #30 Prescribed by: KRISTINA GOMES on 01/23/17 0217 Tramadol HCl 50 Mg Tablet, 50 MG PO Q8H, #12 Ref 0 Prescribed by: FRAN MORFIN on 04/16/171908 Constitutional: see HPI EENTM: see HPI Respiratory: no symptoms reported Cardiovascular: no symptoms reported Genitourinary: no symptoms reported Musculoskeletal: see HPI, back pain Skin: no symptoms reported Psychiatric/Neurological: No Symptoms Reported Past Slpxhtl-Vpevvm-Dhlxhg Hx Patient Social History Type Used: Cigarettes Recent Foreign Travel: No Contact w/Someone Who Travel: No Recent Hopitalizations: No Immunizations Up To Date Tetanus Booster (TDap): Less than 5yrs PED Vaccines UTD: No Date of Influenza Vaccine: Apr 17, 2014 Seasonal Allergies Seasonal Allergies: No Surgeries History of Surgeries: Yes (BACK, NECK, CARPAL TUNNEL) Surgeries: Appendectomy, Ear Surgery, Gallbladder, Orthopedic Respiratory History of Respiratory Disorde: Yes (PER OLD RECORDS, PT HAS COPD, BUT PT DENIES) Respiratory Disorders: COPD Cardiovascular History of Cardiac Disorders: No Neurological History of Neurological Disord: Yes (RESTLESS LEG SYNDROME) Reproductive System Hx Reproductive Disorders: No Sexually Transmitted Disease: No HIV/AIDS: No Gastrointestinal History of Gastrointestinal Di: Yes (CHRONIC DYSPHAGIA AND HOARSENESS; ESOPHAGEAL STRICTURE) Gastrointestinal Disorders: Gastroesophageal Reflux Musculoskeletal History of Musculoskeletal Dis: Yes (C2-C6 FUSION NECK,ROTATOR CUFF REPAIR; CHRONIC NECK AND BACK PAIN ) Musculoskeletal Disorders: Chronic Back Pain Endocrine History of Endocrine Disorders: No HEENT Hearing Impairment: Hard of Hearing Cancer History of Cancer: Yes Cancer: Skin Psychosocial History of Psychiatric Problem: Yes (POLYSUBSTANCE ABUSE/OVERDOSES per old records) Behavioral Health Disorders: Anxiety, Suicide Attempts Integumentary History of Skin or Integumenta: No Blood Transfusions History of Blood Disorders: No Adverse Reaction to a Blood Tr: No Family Medical History Significant Family History: Cancer Family Medial History: Cancer 03 FATHER (PROSTATE) 03 MOTHER (BREAST CA ) 09 BROTHER (THROAT/PANCREATIC) 09 SISTER (LIVER) DEAFNESS 03 FATHER 09 BROTHER Family history: Breast disease 03 MOTHER (BREAST CA) History of - respiratory disease Prostate cancer 03 FATHER Stroke 03 MOTHER Visual impairment Physical Exam Vital Signs Capillary Refill : General Appearance: No Apparent Distress, WD/WN HEENT: PERRL/EOMI, TMs Normal Neck: Full Range of Motion, Normal Inspection Respiratory: No Accessory Muscle Use, No Respiratory Distress Gastrointestinal: Non Tender, Soft Neurologic/Psychiatric: Alert, Oriented x3 Skin: Normal Color, Warm/Dry Departure Impression Impression: Primary Impression: Chronic pain Disposition: 01 HOME, SELF-CARE Condition: Stable Departure-Patient Inst. Decision time for Depature: 19:09 Referrals: NO,LOCAL PHYSICIAN (PCP/Family) Primary Care Physician Patient Instructions: CHRONIC PAIN Add. Discharge Instructions: 1. Call your regular doctor tomorrow to be seen Scripts Cyclobenzaprine HCl (Cyclobenzaprine HCl) 5 Mg Tablet 5 MG PO TID Y for PAIN-SEVERE, #15 TAB Prov: ALBA ROSA EMAIL DEVELOPER 05/06/17 Prednisone (Prednisone) 20 Mg Tab 40 MG PO DAILY, #8 TAB Prov: ALBA ROSA APRN 05/06/17 ALBA ROSA EMAIL DEVELOPER May 06, 2017 19:10
[2017-05-06 19:13] VITALS: BP 132/82
[2017-06-29] MEDS ORDERED: ASPI-586 PO (07:18)
[2017-06-29] MEDS ORDERED: CLOP75TA69 PO (07:18)
[2017-06-29] MEDS ORDERED: ATOR10TA PO (10:14)
== END 2017-05-06 19:15 | disposition home or self-care (01) ==
LOC: EDUNIT# 18:59 → ER 19:01
DX: M54.5 Low back pain; Z91.5 Personal history of self-harm; Z90.49 Acquired absence of other specified parts of digestive tract; F41.9 Anxiety disorder, unspecified; G89.29 Other chronic pain; Z87.39 Personal history of other diseases of the musculoskeletal system and connective tissue; J44.9 Chronic obstructive pulmonary disease, unspecified; K21.9 Gastro-esophageal reflux disease without esophagitis; G25.81 Restless legs syndrome; Z80.42 Family history of malignant neoplasm of prostate
CPT/HCPCS: 99281

== ENCOUNTER → 2017-06-17 | Outpatient (CLI) | payer MEDICAID, MEDICARE ==
[~2017-06-17] VITALS: Ht 167.6 cm; Wt 61.7 kg
[~2017-06-17] MED LIST changes: +CATHETER FLUSH 10 ML SYR IV PRN; +CYCL5TAB PO; +REGADENOSON 0.4 MG/5 ML SYR (LEXISCAN) IV ONE
[2017-06-17 12:49] VITALS: BP 137/83
--- NOTE | 2017-06-17 22:42 | STRESS TEST ---
DATE OF SERVICE: 06/17/2017 LEXISCAN MYOVIEW STRESS TEST REPORT Baseline heart rate is 83. Baseline blood pressure 137/85. Baseline EKG is sinus rhythm with no ischemic changes. SUMMARY: The patient was injected with 10.63 mCi of technetium-99 Myoview and the resting images were obtained. Then, the patient received 0.4 mg of Lexiscan followed by 31.6 mCi of technetium-99 Myoview. Throughout the test, there were no EKG changes. The resting and stress images were reviewed and compared in the short axis, horizontal long axis and vertical long axis views. Review of the images showed diaphragmatic attenuation with fixed defect at the inferior wall. SSS is 3. SDS 1. There is transient ischemic dilatation with TID value 1.22. On the gated images, the left ventricle appeared to be in normal size with normal contractility. Calculated ejection fraction 58%. CONCLUSION: 1. The patient tolerated Lexiscan well. 2. Transient ischemic dilatation with TID value 1.22. 3. Diaphragmatic attenuation with fixed defect at the inferior wall. Job ID: [id number] DocumentID: [id number] Dictated Date: 06/17/2017 14:59:49 Tumbling Barrel Painter Date: 06/17/2017 16:49:45 Dictated By: KEIRY GUIDO MD
== END ==
LOC: CARD 11:58
PROVIDERS: ATTEND Pediatrics
DX: R07.9 Chest pain, unspecified (principal)
CPT/HCPCS: 78452; 93017

== ENCOUNTER → 2017-07-03 | Outpatient (CLI) | payer MEDICARE ==
[~2017-07-03] MED LIST changes: +ASPI-586 PO; +ATOR10TA PO; -CATHETER FLUSH 10 ML SYR IV PRN; +CLOP75TA69 PO; -REGADENOSON 0.4 MG/5 ML SYR (LEXISCAN) IV ONE
--- NOTE | 2017-07-03 10:48 | Diagnostic Imaging Report ---
PROCEDURE: Lung cancer screening CT chest without contrast. TECHNIQUE: Multiple contiguous axial images were obtained through the chest without the use of intravenous contrast. This is performed with a low-dose protocol. INDICATION: Currently asymptomatic patient with 40 pack-year history of smoking COMPARISON: 05/03/2015. FINDINGS: There is a 7-mm nodule in the right lung base near the lateral right costophrenic angle stable from 05/03/2015, compatible with scarring. There is a 3-mm calcified granuloma in the left upper lobe also noted. There is no suspicious nodule, mass, or significant airspace consolidation. Advanced emphysema changes are seen predominantly involving the upper lobes. There is no mediastinal mass. No significantly enlarged lymph nodes are seen in the mediastinum. The hilar vessels are not opacified on this unenhanced exam with no obvious hilar mass seen. No axillary lymphadenopathy is noted. The thoracic aorta is normal in caliber. No cardiac enlargement. No pericardial or pleural effusion. Osseous structures demonstrate mild degenerative changes. Sections in the upper abdomen demonstrate a spine stimulator in the back. Air density in the anterior epidural space is noted in the visualized lumbar spine upper levels, presumably related to recent procedure. IMPRESSION: 1. No suspicious nodule or mass. 2. Advanced emphysema. 3. There is density in the anterior epidural space in the upper lumbar spine seen and is presumably related to recent procedure or air bubble leaked IV line placement. Correlate clinically. Report was faxed to office of Dr. Curry @ 10:47 AM/nimesh. The findings were called to Dr. Jessenia Curry at the time of dictation. Lung Rads Category 2. Benign findings. Recommendations: Annual screening low-dose CT scan. Dictated by: Dictated on workstation # [id number]
== END ==
LOC: RAD 08:40
PROVIDERS: ATTEND Pediatrics
DX: Z12.2 Encounter for screening for malignant neoplasm of respiratory organs (principal); J43.9 Emphysema, unspecified; F17.210 Nicotine dependence, cigarettes, uncomplicated; R93.7 Abnormal findings on diagnostic imaging of other parts of musculoskeletal system

== ENCOUNTER 2017-07-12 15:35 | Emergency (ER) | payer MEDICARE ==
[~2017-07-12] VITALS: Ht 167.6 cm; Wt 59.0 kg
[2017-07-12] MEDS ORDERED: NS IV 1000 ML 1,000 ML IV ONE (15:53)
[2017-07-12] MEDS ORDERED: ONDANSETRON 4 MG/2 ML (SDV) Z0FRAN IVP ONE (16:00)
[2017-07-12] MEDS ORDERED: ASPIRIN 81 MG CHEW (CHILDREN'S ASA) PO ONE (16:00)
--- NOTE | 2017-07-12 16:01 | ED Chest Pain ---
General Chief Complaint: Chest Pain Stated Complaint: CP/SOB Source: patient Exam Limitations: no limitations History of Present Illness Time seen by provider: 15:52 Initial Comments Patient has ER by private conveyance with his sister with a chief complaint of chest pain 30 minutes prior to arrival started in substernal mid chest was severe 7 out of 10. It radiates to his right arm and right neck. He is having nausea. He has no sweats. He has a history of a catheter 3 weeks ago on June 29, [address] Vargas which showed no large vessel obstructive disease but multiple areas of small vascular disease. He is a smoker 2-1/2 packs per day. He is having some shortness of breath but no productive cough recently. He' s had no fevers or chills. He has not been sedentary. No recent surgeries or injuries. He has no thyroid disease but he does have blood pressure and cholesterol disease. He's never had a heart attack or stents placed. He was recently taken off Plavix and just put on baby aspirin daily but he did not take one today. Review of prescription history at [facility] pharmacy shows that metoprolol XL 25 mg was written but the patient states he is not aware of it and has not been on metoprolol. He denies drinking alcohol but previous records demonstrates an overdose of benzodiazepines as well as he gives a history of opiate abuse in the past. He was recently seen at [facility] for back pain and prescribed cyclobenzaprine and tramadol. The patient states he took a couple of the tablets but that didn't help so he is not on them anymore. Allergies and Home Medications Allergies Coded Allergies: ibuprofen (Verified Allergy, Unknown, 04/05/15) HYPERTENSION Home Medications Aspirin 81 Mg Tablet., 81 MG PO HS, (Reported) Atorvastatin Calcium 10 Mg Tablet, 10 MG PO DAILY, #30 Ref 4 Prescribed by: KEIRY VARGAS on 06/29/17 1014 Review of Systems Constitutional: No chills, No diaphoresis EENTM: No Blurred Vision, No Double Vision Respiratory: Cough (baseline nonproductive), Shortness of Air (worse than normal) Cardiovascular: See HPI, Chest Pain, Denies Palpitations, Denies Syncope Gastrointestinal: Denies Constipated, Denies Diarrhea, Nausea, Denies Vomiting Genitourinary: Denies Burning, Denies Discharge, Denies Drainage Musculoskeletal: No back pain, No joint pain Skin: No pruritus, No rash Psychiatric/Neurological: Denies Headache, Denies Numbness, Denies Paresthesia Past Wqixwoh-Ahjbfb-Rjgkgn Hx Patient Social History Alcohol Use: Denies Use Recreational Drug Use: No Smoking Status: Current Everyday Smoker Type Used: Cigarettes (2.5) Recent Foreign Travel: No Contact w/Someone Who Travel: No Recent Hopitalizations: No Immunizations Up To Date Tetanus Booster (TDap): Less than 5yrs PED Vaccines UTD: No Date of Pneumonia Vaccine: May 26, 2017 Date of Influenza Vaccine: May 26, 2017 Seasonal Allergies Seasonal Allergies: No Surgeries History of Surgeries: Yes (BACK, NECK, CARPAL TUNNEL) Surgeries: Appendectomy, Ear Surgery, Gallbladder, Orthopedic Respiratory History of Respiratory Disorde: Yes (PER OLD RECORDS, PT HAS COPD, BUT PT DENIES) Respiratory Disorders: COPD Cardiovascular History of Cardiac Disorders: No Neurological History of Neurological Disord: Yes (RESTLESS LEG SYNDROME) Reproductive System Hx Reproductive Disorders: No Sexually Transmitted Disease: No HIV/AIDS: No Gastrointestinal History of Gastrointestinal Di: Yes (CHRONIC DYSPHAGIA AND HOARSENESS; ESOPHAGEAL STRICTURE) Gastrointestinal Disorders: Gastroesophageal Reflux Musculoskeletal History of Musculoskeletal Dis: Yes (C2-C6 FUSION NECK,ROTATOR CUFF REPAIR; CHRONIC NECK AND BACK PAIN ) Musculoskeletal Disorders: Chronic Back Pain Endocrine History of Endocrine Disorders: No HEENT Hearing Impairment: Hard of Hearing Cancer History of Cancer: Yes Cancer: Skin Psychosocial History of Psychiatric Problem: Yes (POLYSUBSTANCE ABUSE/OVERDOSES per old records) Behavioral Health Disorders: Anxiety, Suicide Attempts Integumentary History of Skin or Integumenta: No Blood Transfusions History of Blood Disorders: No Adverse Reaction to a Blood Tr: No Family Medical History Significant Family History: Cancer Family Medial History: Cancer 03 FATHER (PROSTATE) 03 MOTHER (BREAST CA ) 09 BROTHER (THROAT/PANCREATIC) 09 SISTER (LIVER) DEAFNESS 03 FATHER 09 BROTHER Family history: Breast disease 03 MOTHER (BREAST CA) History of - respiratory disease Prostate cancer 03 FATHER Stroke 03 MOTHER Visual impairment Physical Exam Vital Signs Vital Sign - Last 12Hours 07/12/17 15:37 Temp 97.2 Pulse 76 Resp 20 B/P (MAP) 159/100 Pulse Ox 97 O2 Delivery Room Air O2 Flow Rate 2.0 Capillary Refill : General Appearance: Moderate Distress, Thin HEENT: PERRL/EOMI, Pharynx Normal Neck: Full Range of Motion, Non Tender, Supple Respiratory: Lungs Clear, Decreased Breath Sounds, Respiratory Distress (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), Other (chest tender to palpation over the mid sternum.) Cardiovascular: Regular Rate, Rhythm, No Edema, No Murmur, Normal Peripheral Pulses Gastrointestinal: Normal Bowel Sounds, Non Tender, Soft, Other (no abdominal bruits heard) Extremity: Normal Capillary Refill, Normal Inspection, Non Tender, No Calf Tenderness, No Pedal Edema Neurologic/Psychiatric: Alert, Oriented x3 Skin: Normal Color, Warm/Dry Progress/Results/Core Measures Results/Orders Lab Results Laboratory Tests Test 07/12/17 15:47 07/12/17 17:45 Range/Units White Blood Count 8.5 4.3-11.0 10^3/uL Red Blood Count 4.81 4.35-5.85 10^6/uL Hemoglobin 15.5 13.3-17.7 G/DL Hematocrit 47 40-54 % Mean Corpuscular Volume 98 80-99 FL Mean Corpuscular Hemoglobin 32 25-34 PG Mean Corpuscular Hemoglobin Concent 33 32-36 G/DL Red Cell Distribution Width 13.7 10.0-14.5 % Platelet Count 292 130-400 10^3/uL Mean Platelet Volume 8.7 7.4-10.4 FL Neutrophils (%) (Auto) 62 42-75 % Lymphocytes (%) (Auto) 28 12-44 % Monocytes (%) (Auto) 9 0-12 % Eosinophils (%) (Auto) 1 0-10 % Basophils (%) (Auto) 1 0-10 % Neutrophils # (Auto) 5.3 1.8-7.8 X 10^3 Lymphocytes # (Auto) 2.4 1.0-4.0 X 10^3 Monocytes # (Auto) 0.7 0.0-1.0 X 10^3 Eosinophils # (Auto) 0.1 0.0-0.3 10^3/uL Basophils # (Auto) 0.1 0.0-0.1 10^3/uL Prothrombin Time 13.3 12.2-14.7 SEC INR Comment 1.0 0.8-1.4 Activated Partial Thromboplast Time 29 24-35 SEC Sodium Level 141 135-145 MMOL/L Potassium Level 3.5 L 3.6-5.0 MMOL/L Chloride Level 102 98-107 MMOL/L Carbon Dioxide Level 30 21-32 MMOL/L Anion Gap 9 5-14 MMOL/L Blood Urea Nitrogen 16 7-18 MG/DL Creatinine 0.81 0.60-1.30 MG/DL Estimat Glomerular Filtration Rate > 60 BUN/Creatinine Ratio 20 Glucose Level 114 H 70-105 MG/DL Calcium Level 10.0 8.5-10.1 MG/DL Magnesium Level 2.3 1.8-2.4 MG/DL Total Bilirubin 0.6 0.1-1.0 MG/DL Aspartate Amino Transf (AST/SGOT) 17 5-34 U/L Alanine Aminotransferase (ALT/SGPT) 17 0-55 U/L Alkaline Phosphatase 94 40-136 U/L Myoglobin 18.3 10.0-92.0 NG/ML Troponin I < 0.30 < 0.30 <0.30 NG/ML Total Protein 8.0 6.4-8.2 GM/DL Albumin 4.4 3.2-4.5 GM/DL My Orders Orders - VICKIROXANE J Ekg Tracing (07/12/17 15:39) Cbc With Automated Diff (07/12/17 15:53) Magnesium (07/12/17 15:53) Chest 1 View, Ap/Pa Only (07/12/17 15:53) Cardiac Profile 1 (07/12/17 15:53) Comprehensive Metabolic Panel (07/12/17 15:53) Myoglobin Serum (07/12/17 15:53) Protime With Inr (07/12/17 15:53) Partial Thromboplastin Time (07/12/17 15:53) O2 (07/12/17 15:53) Monitor-Rhythm Ecg Trace Only (07/12/17 15:53) Lipid Panel (07/13/17 06:00) Aspirin Chewable Tablet (Baby Aspirin Ch (07/12/17 16:00) Nitroglycerin 0.4 Mg Btl 25's (Nitrostat (07/12/17 16:00) Saline Lock/Iv-Start (07/12/17 15:53) Saline Lock/Iv-Start (07/12/17 15:53) Ns Iv 1000 Ml (Sodium Chloride 0.9%) (07/12/17 15:53) Ondansetron Injection (Zofran Injectio (07/12/17 16:00) Morphine Injection (Morphine Injection (07/12/17 16:30) Troponin I (07/12/17 17:45) Ekg Tracing (07/12/17 17:45) Medications Given in ED Current Medications Medications Dose Ordered Sig/Isabell Route Start Time Stop Time Status Last Admin Dose Admin Aspirin 324 mg ONCE ONCE PO 07/12/17 16:00 07/12/17 16:01 DC 07/12/17 16:01 324 MG Morphine Sulfate 4 mg ONCE ONCE IVP 07/12/17 16:30 07/12/17 16:31 DC 07/12/17 16:37 4 MG Nitroglycerin 0.4 mg UD PRN SL 07/12/17 16:00 07/12/17 16:23 DC 07/12/17 16:23 0.4 MG Ondansetron HCl 4 mg ONCE ONCE IVP 07/12/17 16:00 07/12/17 16:01 DC 07/12/17 16:01 4 MG Sodium Chloride 1,000 ml @ 0 mls/hr Q0M ONCE IV 07/12/17 15:53 07/12/17 15:56 DC 07/12/17 16:01 999 MLS/HR Vital Signs/I&O Vital Sign - Last 12Hours 07/12/17 07/12/17 07/12/17 15:37 15:37 15:45 Temp 97.2 Pulse 76 Resp 20 B/P (MAP) 159/100 Pulse Ox 97 97 O2 Delivery Room Air Nasal Cannula Nasal Cannula O2 Flow Rate 2.0 2.00 Intake and Output 07/13/17 00:00 Intake Total 1000 ml Balance 1000 ml Progress Note #1: Time: 16:30 Progress Note Patient's pain improved only marginally with nitroglycerin from 7 down to 6, then 4 with subsequent doses. We'll give him some morphine. He is on oxygen and he is received aspirin. Progress Note #2: Time: 16:43 Progress Note ED ACS scores 15. Initial EKG and troponin are normal. We'll discuss with cardiology before attempting to do a delta T and set up outpatient follow-up. Progress Note #3: Time: 17:52 Progress Note Patient is resting comfortable pain 2 out of 10. No shortness of breath. 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 ECG Initial ECG Impression Date: Jul 12, 2017 Initial ECG Impression Time: 15:37 Initial ECG Rate: 78 Initial ECG Rhythm: Normal Sinus Initial ECG Intervals: Normal Initial ECG Impression: Normal Initial ECG Comparisson: Unchanged Comment No T-wave elevation or depression. EKG : EKG Time: 17:43 Rate: 59 Rhythm: Normal Sinus Intervals: Normal ECG Comparisson: Unchanged ECG Impression: Normal Comment No T-wave elevation or depression noted. Diagnostic Imaging Diagonstic Imaging: Xray Plain Films/CT/US/NM/MRI: chest (1v) Comments NAME: LUZ ELENA [facility] REC#: [id number] PHYSICIAN: ROXANE COHEN MD CC: TAMMY JOHNSON MD; ROXANE COHEN Page 1 of 1 RADIOLOGY REPORT VIA [facility]. [place], [place] CC: TAMMY JOHNSON MD; ROXANE COHEN Page 1 of 1 RADIOLOGY REPORT NAME: LUZ ELENA [facility] REC#: [id number] PT STATUS: REG ER : 1955 PHYSICIAN: ROXANE COHEN MD ADMIT DATE: 07/12/17/ER Signed Date of Exam: 07/12/17 CHEST 1 VIEW, AP/PA ONLY INDICATION: Chest pain, short of air. EXAMINATION: Upright chest was obtained. FINDINGS: Normal heart size and vascularity. The lungs are clear. There is no effusion or pneumothorax. IMPRESSION: No acute abnormality is seen with no change from 06/29/2017. Dictated by: Dictated on workstation # [id number] Dict: 07/12/17 1626 Trans: 07/12/17 1634 Interpreted by: TAMMY JOHNSON MD Electronically signed by: TAMMY JOHNSON MD 07/12/17 1634 Reviewed: Reviewed by Me Consults Consults : Consulting Physician: KEIRY VARGAS MD Consults Notes Discussed the case imaging labs and findings with Dr. Vargas, cardiology and he feels it's okay to do a two-hour delta troponin rule out. Follow up tomorrow morning in the clinic. Departure Impression Impression: Primary Impression: Angina pectoris Disposition: HOME, SELF-CARE Condition: Improved Departure-Patient Inst. Decision time for Depature: 18:25 Referrals: ARIADNA ALAS MD (PCP/Family) Primary Care Physician Patient Instructions: Angina (DC) Add. 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 Thursday morning call Dr. Vargas at his clinic at [phone] to get an appointment to be followed up this week. Take an aspirin daily. If you begin to have some chest pain take one tablet of nitroglycerin under the tongue every 5 minutes. If you continue to have pain do this again. If you have to do this 3 times in a row you should return to the ER for evaluation. All discharge instructions reviewed with patient and/or family. Voiced understanding. Copy Copies To 1: ROSE KWONG DO Copies To 2: KEIRY VARGAS MD, TITUS J Jul 12, 2017 16:01
[2017-07-12 16:02] LABS: BASOPHILS # (AUTO) 0.1 10^3/uL (0.0-0.1); BASOPHILS % (AUTO) 1 % (0-10); EOSINOPHILS # (AUTO) 0.1 10^3/uL (0.0-0.3); EOSINOPHILS % (AUTO) 1 % (0-10); LYMPHOCYTES # (AUTO) 2.4 X 10^3 (1.0-4.0); LYMPHOCYTES % (AUTO) 28 % (12-44); MEAN CORPUSCULAR HEMOGLOBIN 32 PG (25-34); MEAN CORPUSCULAR HGB CONC 33 G/DL (32-36); MEAN CORPUSCULAR VOLUME 98 FL (80-99); MEAN PLATELET VOLUME 8.7 FL (7.4-10.4); MONOCYTES # (AUTO) 0.7 X 10^3 (0.0-1.0); MONOCYTES % (AUTO) 9 % (0-12); NEUTROPHILS # (AUTO) 5.3 X 10^3 (1.8-7.8); NEUTROPHILS % (AUTO) 62 % (42-75); PLATELET COUNT 292 10^3/uL (130-400); RED BLOOD COUNT 4.81 10^6/uL (4.35-5.85); RED CELL DISTRIBUTION WIDTH 13.7 % (10.0-14.5); WHITE BLOOD COUNT 8.5 10^3/uL (4.3-11.0)
[2017-07-12] MEDS: NITROGLYCERIN 0.4 MG SL TABS BTL 25'S SL PRN ×3 (16:02→16:23)
[2017-07-12 16:11] LABS: PROTHROMBIN TIME PATIENT 13.3 SEC (12.2-14.7)
[2017-07-12 16:22] LABS: ALANINE AMINOTRANSFERASE 17 U/L (0-55); ALBUMIN 4.4 GM/DL (3.2-4.5); ANION GAP 9 MMOL/L (5-14); ASPARTATE AMINO TRANSFERASE 17 U/L (5-34); BILIRUBIN,TOTAL 0.6 MG/DL (0.1-1.0); BLOOD UREA NITROGEN 16 MG/DL (7-18); BUN/CREATININE RATIO 20; CARBON DIOXIDE 30 MMOL/L (21-32); CHLORIDE 102 MMOL/L (98-107); CREATININE SERUM 0.81 MG/DL (0.60-1.30); GFR ESTIMATED > 60; GLUCOSE 114 MG/DL (70-105); MAGNESIUM 2.3 MG/DL (1.8-2.4); POTASSIUM 3.5 MMOL/L (3.6-5.0); SODIUM 141 MMOL/L (135-145)
[2017-07-12 16:28] LABS: MYOGLOBIN SERUM 18.3 NG/ML (10.0-92.0)
--- NOTE | 2017-07-12 16:28 | Diagnostic Imaging Report ---
INDICATION: Chest pain, short of air. EXAMINATION: Upright chest was obtained. FINDINGS: Normal heart size and vascularity. The lungs are clear. There is no effusion or pneumothorax. IMPRESSION: No acute abnormality is seen with no change from 06/29/2017. Dictated by: Dictated on workstation # [id number]
[2017-07-12] MEDS ORDERED: morphine INJ 10 MG/ML 1ML (SYR OR VIAL) IVP ONE (16:30)
[2017-07-12 18:48] VITALS: BP 117/109
== END 2017-07-12 18:48 | disposition home or self-care (01) ==
LOC: EDUNIT# 15:35 → ER 15:37
DX: I20.9 Angina pectoris, unspecified (principal); F41.9 Anxiety disorder, unspecified; K21.9 Gastro-esophageal reflux disease without esophagitis; G25.81 Restless legs syndrome; J44.9 Chronic obstructive pulmonary disease, unspecified; F17.210 Nicotine dependence, cigarettes, uncomplicated; Z79.82 Long term (current) use of aspirin; Z90.49 Acquired absence of other specified parts of digestive tract; Z91.5 Personal history of self-harm; Z80.3 Family history of malignant neoplasm of breast
CPT/HCPCS: 36415; 71010; 80053; 83735; 83874; 84484; 85025; 85610; 85730; 93005; 93041

== ENCOUNTER 2017-07-25 03:03 | Emergency (ER) | payer MEDICARE ==
[~2017-07-25] VITALS: Ht 167.6 cm; Wt 59.0 kg
[~2017-07-25 03:03] MED LIST changes: -IBUP-15 PO; +IBUP-16 PO; +NAPR-1071 PO; -NAPR500T PO
[2017-07-25] MEDS ORDERED: METO-387 (03:13)
[2017-07-25] MEDS ORDERED: NITR0.4T39 (03:13)
[2017-07-25] MEDS ORDERED: ISOS30TA3 (03:13)
[2017-07-25] MEDS ORDERED: TRAM50TA2 (03:13)
[2017-07-25] MEDS ORDERED: CYCL10TA9 (03:13)
[2017-07-25] MEDS ORDERED: ASPIRIN 81 MG CHEW (CHILDREN'S ASA) PO ONE (03:15)
[2017-07-25 03:21] LABS: BASOPHILS % (AUTO) 0 % (0-10); EOSINOPHILS # (AUTO) 0.1 10^3/uL (0.0-0.3); EOSINOPHILS % (AUTO) 1 % (0-10); LYMPHOCYTES # (AUTO) 3.2 X 10^3 (1.0-4.0); LYMPHOCYTES % (AUTO) 26 % (12-44); MEAN CORPUSCULAR HEMOGLOBIN 33 PG (25-34); MEAN CORPUSCULAR HGB CONC 33 G/DL (32-36); MEAN CORPUSCULAR VOLUME 98 FL (80-99); MEAN PLATELET VOLUME 8.8 FL (7.4-10.4); MONOCYTES # (AUTO) 0.8 X 10^3 (0.0-1.0); MONOCYTES % (AUTO) 7 % (0-12); NEUTROPHILS # (AUTO) 8.1 X 10^3 (1.8-7.8); NEUTROPHILS % (AUTO) 66 % (42-75); PLATELET COUNT 232 10^3/uL (130-400); RED BLOOD COUNT 4.15 10^6/uL (4.35-5.85); RED CELL DISTRIBUTION WIDTH 13.9 % (10.0-14.5); WHITE BLOOD COUNT 12.2 10^3/uL (4.3-11.0)
[2017-07-25 03:26] LABS: INR 0.9 (0.8-1.4); PROTHROMBIN TIME PATIENT 12.7 SEC (12.2-14.7)
[2017-07-25] MEDS ORDERED: NITROGLYCERIN 0.4 MG SL TABS BTL 25'S SL ONE (03:30)
[2017-07-25 03:44] LABS: ALANINE AMINOTRANSFERASE 11 U/L (0-55); ALBUMIN 3.9 GM/DL (3.2-4.5); AMYLASE 51 U/L (25-125); ANION GAP 12 MMOL/L (5-14); ASPARTATE AMINO TRANSFERASE 14 U/L (5-34); BILIRUBIN,TOTAL 0.3 MG/DL (0.1-1.0); BLOOD UREA NITROGEN 17 MG/DL (7-18); BUN/CREATININE RATIO 20; CALCIUM 9.3 MG/DL (8.5-10.1); CARBON DIOXIDE 24 MMOL/L (21-32); CHLORIDE 104 MMOL/L (98-107); CREATINE KINASE 59 U/L (30-200); CREATININE SERUM 0.83 MG/DL (0.60-1.30); GFR ESTIMATED > 60; GLUCOSE 107 MG/DL (70-105); LIPASE 41 U/L (8-78); MAGNESIUM 1.8 MG/DL (1.8-2.4); POTASSIUM 3.3 MMOL/L (3.6-5.0); SODIUM 140 MMOL/L (135-145); TOTAL PROTEIN 6.9 GM/DL (6.4-8.2)
[2017-07-25 03:52] LABS: TROPONIN I < 0.30 NG/ML (<0.30)
[2017-07-25] MEDS ORDERED: morphine INJ 10 MG/ML 1ML (SYR OR VIAL) IVP STA (04:05)
[2017-07-25] MEDS ORDERED: LORazepam INJ 2 MG/ML (ATIVAN) VIAL IVP ONE (04:15)
--- NOTE | 2017-07-25 04:33 | ED Chest Pain ---
General Chief Complaint: Chest Pain Stated Complaint: CP Nursing Triage Note: CHEST PAIN X2HRS Nursing Sepsis Screen: No Definite Risk Source: patient, old records History of Present Illness Time seen by provider: 03:15 Initial Comments PT ARRIVES VIA POV FROM HOME C/O MID CHEST PAIN FOR A COUPLE OF HOURS--RATES PAIN 8-9/10 PAIN BEGAN WHILE LAYING DOWN AND TRYING TO GO TO SLEEP PAIN RADIATES DOWN LEFT ARM AND RIGHT ARM FEELS NUMB ALSO HAS PAIN IN BACK OF NECK C/O SHORTNESS OF BREATH C/O SWEATS C/O NAUSEA AND VOMITED X 2 PT TOOK NTG X 2 WITHOUT RELIEF PT HAS HISTORY OF SAME, MULTIPLE TIMES PT HAD CARDIAC CATH 06/29/[address] GUIDO AND SHOWED MINIMAL/NON-OCCLUSIVE SMALL VESSEL DISEASE. NO INTERVENTION. EF 50% PT SEEN HERE 07/12/17 FOR SAME. WORK UP NEGATIVE AT THAT TIME. WAS SENT HOME WITH NTG AND INSTRUCTED TO FOLLOW UP WITH DR. GUIDO THAT WEEK. PT STATES HE DID FOLLOW UP WITH HIM AND PT STATES HE WAS INSTRUCTED NOT TO DO ANY HEAVY LIFTING. IS SUPPOSED TO FOLLOW UP NEXT MONTH. Allergies and Home Medications Allergies Coded Allergies: ibuprofen (Verified Allergy, Unknown, 04/05/15) HYPERTENSION Home Medications Aspirin 81 Mg Tablet.dr, 81 MG PO HS, (Reported) Atorvastatin Calcium 10 Mg Tablet, 10 MG PO DAILY, #30 Ref 4 Prescribed by: KEIRY GUIDO on 06/29/17 1014 Cyclobenzaprine HCl 10 Mg Tablet, (Reported) Isosorbide Mononitrate 30 Mg Tab.er.24h, (Reported) Metoprolol Succinate 25 Mg Tab.er.24h, (Reported) Nitroglycerin 0.4 Mg Tab.subl, (Reported) Tramadol HCl 50 Mg Tablet, (Reported) Review of Systems Constitutional: see HPI, dizziness EENTM: No Symptoms Reported Respiratory: See HPI, Shortness of Air Cardiovascular: See HPI, Chest Pain, Denies Edema, Denies Lightheadedness, Denies Palpitations Gastrointestinal: See HPI, Denies Abdominal Pain, Nausea, Vomiting Genitourinary: No Symptoms Reported Musculoskeletal: see HPI, neck pain, other (ARM PAIN ) Skin: no symptoms reported Psychiatric/Neurological: See HPI, Anxiety, Numbness, Paresthesia, Tingling Endocrine: No Symptoms Reported Hematologic/Lymphatic: No Symptoms Reported Past Qvrtuhp-Zkbslz-Zcepim Hx Patient Social History Alcohol Use: Denies Use Recreational Drug Use: Yes (PT WITH EXTENSIVE RX DRUG -POLY SUBSTANCE ABUSE/ OVERDOSES, ESPECIALLY BENZODIAZPINES ( XANAX ) AND NARCOTICS. HAS TESTED + FOR METHAPMPHETAMINES WELL. ) Smoking Status: Current Everyday Smoker (2-3 PPD) Type Used: Cigarettes 2nd Hand Smoke Exposure: Yes Recent Foreign Travel: No Contact w/Someone Who Travel: No Recent Infectious Disease Expo: No Recent Hopitalizations: No Immunizations Up To Date Tetanus Booster (TDap): Less than 5yrs PED Vaccines UTD: No Date of Pneumonia Vaccine: May 26, 2017 Date of Influenza Vaccine: May 26, 2017 Seasonal Allergies Seasonal Allergies: No Surgeries History of Surgeries: Yes (LUMBAR SPINE X 2; CERVICAL SPINE X 3; CARPAL TUNNEL ; EGD WITH REMOVAL OF FOOD BOLUS 01/2013; SKIN CANCER REMOVAL--LIP/EAR; BMT'S; ROTATOR CUFF REPAIR; CARDIAC CATH/ NO INTERVENTION--MOST RECENTLY 06/29/17) Surgeries: Appendectomy, Ear Surgery, Gallbladder, Orthopedic Respiratory History of Respiratory Disorde: Yes (PER OLD RECORDS, PT HAS COPD, BUT PT DENIES) Respiratory Disorders: Chronic Bronchitis, COPD, Emphysema Cardiovascular History of Cardiac Disorders: Yes Cardiac Disorders: Coronary Artery Disease, High Cholesterol, Hypertension Neurological History of Neurological Disord: Yes (RESTLESS LEG SYNDROME) Reproductive System Hx Reproductive Disorders: No Sexually Transmitted Disease: No HIV/AIDS: No Genitourinary History of Genitourinary Disor: No Gastrointestinal History of Gastrointestinal Di: Yes (CHRONIC DYSPHAGIA AND HOARSENESS; ESOPHAGEAL STRICTURE) Gastrointestinal Disorders: Gastroesophageal Reflux Musculoskeletal History of Musculoskeletal Dis: Yes (C2-C6 FUSION NECK,ROTATOR CUFF REPAIR; CHRONIC NECK AND BACK PAIN ) Musculoskeletal Disorders: Chronic Back Pain Endocrine History of Endocrine Disorders: No HEENT History of HEENT Disorders: No Hearing Impairment: Hard of Hearing Cancer History of Cancer: Yes Cancer: Skin Did You Recieve Any Treatments: Yes Type of Tx Receive: Surgical Intervention Psychosocial History of Psychiatric Problem: Yes (POLYSUBSTANCE ABUSE/OVERDOSES PER OLD RECORDS) Behavioral Health Disorders: Anxiety, Suicide Attempts, Depression ( POLYSUBSTANCE ABUSE/OVERDOSES PER OLD RECORDS-HX OF GETTING MULTIPLE RX'S FROM MULTIPLE PROVIDERS AND FILLING THEM AT MULTIPLE / DIFFERENT PHARMACIES; MULTIPLE OVERDOSES AND HAS BEEN KICKED OUT OF [facility] FOR NON-COMPLICANCE; MULTIPLE ACCIDENTS FROM "BEING HIGH" WHILE UNDER THE INFLUENCE OF MULTIPLE SUBSTANCES) Integumentary History of Skin or Integumenta: No Blood Transfusions History of Blood Disorders: No Adverse Reaction to a Blood Tr: No Family Medical History Significant Family History: Cancer Family Medial History: Cancer 03 FATHER (PROSTATE) 03 MOTHER (BREAST CA ) 09 BROTHER (THROAT/PANCREATIC) 09 SISTER (LIVER) DEAFNESS 03 FATHER 09 BROTHER Family history: Breast disease 03 MOTHER (BREAST CA) History of - respiratory disease Prostate cancer 03 FATHER Stroke 03 MOTHER Visual impairment Physical Exam Vital Signs Vital Sign - Last 12Hours 07/25/17 07/25/17 03:10 03:13 Temp 98.1 Pulse 81 Resp 22 B/P (MAP) 115/66 (82) Pulse Ox 97 O2 Delivery Room Air Capillary Refill : Less Than 3 Seconds General Appearance: Anxious (VERY ), Thin, Other (REEKS OF CIGARETTES) HEENT: Other (POOR DENTITION) Respiratory: Normal Breath Sounds, No Accessory Muscle Use, No Respiratory Distress, Other (MODERATE TENDERNESS TO MID AND LOWER CHEST/STERNUM--PALPATION DRAMATICALLY REPRODUCES PAIN ) Cardiovascular: Regular Rate, Rhythm, No Edema, No JVD, No Murmur, Normal Peripheral Pulses Gastrointestinal: Normal Bowel Sounds, No Organomegaly, No Pulsatile Mass, Non Tender, Soft Extremity: Normal Range of Motion, Non Tender, No Calf Tenderness, No Pedal Edema Neurologic/Psychiatric: Alert, Oriented x3, No Motor/Sensory Deficits, fagot maker II- XII Norm as Tested, Other (ANXIOUS) Skin: Normal Color, Warm/Dry Progress/Results/Core Measures Results/Orders Lab Results Laboratory Tests Test 07/25/17 03:10 07/25/17 05:40 Range/Units White Blood Count 12.2 H 4.3-11.0 10^3/uL Red Blood Count 4.15 L 4.35-5.85 10^6/uL Hemoglobin 13.5 13.3-17.7 G/DL Hematocrit 41 40-54 % Mean Corpuscular Volume 98 80-99 FL Mean Corpuscular Hemoglobin 33 25-34 PG Mean Corpuscular Hemoglobin Concent 33 32-36 G/DL Red Cell Distribution Width 13.9 10.0-14.5 % Platelet Count 232 130-400 10^3/uL Mean Platelet Volume 8.8 7.4-10.4 FL Neutrophils (%) (Auto) 66 42-75 % Lymphocytes (%) (Auto) 26 12-44 % Monocytes (%) (Auto) 7 0-12 % Eosinophils (%) (Auto) 1 0-10 % Basophils (%) (Auto) 0 0-10 % Neutrophils # (Auto) 8.1 H 1.8-7.8 X 10^3 Lymphocytes # (Auto) 3.2 1.0-4.0 X 10^3 Monocytes # (Auto) 0.8 0.0-1.0 X 10^3 Eosinophils # (Auto) 0.1 0.0-0.3 10^3/uL Basophils # (Auto) 0.0 0.0-0.1 10^3/uL Prothrombin Time 12.7 12.2-14.7 SEC INR Comment 0.9 0.8-1.4 Activated Partial Thromboplast Time 30 24-35 SEC Sodium Level 140 135-145 MMOL/L Potassium Level 3.3 L 3.6-5.0 MMOL/L Chloride Level 104 98-107 MMOL/L Carbon Dioxide Level 24 21-32 MMOL/L Anion Gap 12 5-14 MMOL/L Blood Urea Nitrogen 17 7-18 MG/DL Creatinine 0.83 0.60-1.30 MG/DL Estimat Glomerular Filtration Rate > 60 BUN/Creatinine Ratio 20 Glucose Level 107 H 70-105 MG/DL Calcium Level 9.3 8.5-10.1 MG/DL Magnesium Level 1.8 1.8-2.4 MG/DL Total Bilirubin 0.3 0.1-1.0 MG/DL Aspartate Amino Transf (AST/SGOT) 14 5-34 U/L Alanine Aminotransferase (ALT/SGPT) 11 0-55 U/L Alkaline Phosphatase 97 40-136 U/L Total Creatine Kinase 59 30-200 U/L Creatine Kinase MB 0.4 <6.6 NG/ML Troponin I < 0.30 <0.30 NG/ML B-Type Natriuretic Peptide 12.9 <100.0 PG/ML Total Protein 6.9 6.4-8.2 GM/DL Albumin 3.9 3.2-4.5 GM/DL Amylase Level 51 25-125 U/L Lipase 41 8-78 U/L Serum Alcohol < 10 <10 MG/DL Urine Color YELLOW Urine Clarity CLEAR Urine pH 6 5-9 Urine Specific [place] 1.015 L 1.016-1.022 Urine Protein 1+ H NEGATIVE Urine Glucose (UA) NEGATIVE NEGATIVE Urine Ketones NEGATIVE NEGATIVE Urine Nitrite NEGATIVE NEGATIVE Urine Bilirubin NEGATIVE NEGATIVE Urine Urobilinogen NORMAL NORMAL MG/DL Urine Leukocyte Esterase 1+ H NEGATIVE Urine RBC (Auto) NEGATIVE NEGATIVE Urine RBC NONE /HPF Urine WBC RARE /HPF Urine Squamous Epithelial Cells RARE /HPF Urine Crystals NONE /LPF Urine Bacteria NEGATIVE /HPF Urine Casts NONE /LPF Urine Mucus MODERATE H /LPF Urine Culture Indicated NO Urine Opiates Screen POSITIVE H NEGATIVE Urine Oxycodone Screen NEGATIVE NEGATIVE Urine Methadone Screen NEGATIVE NEGATIVE Urine Propoxyphene Screen NEGATIVE NEGATIVE Urine Barbiturates Screen NEGATIVE NEGATIVE Ur Tricyclic Antidepressants Screen POSITIVE H NEGATIVE Urine Phencyclidine Screen NEGATIVE NEGATIVE Urine Amphetamines Screen NEGATIVE NEGATIVE Urine Methamphetamines Screen NEGATIVE NEGATIVE Urine Benzodiazepines Screen NEGATIVE NEGATIVE Urine Cocaine Screen NEGATIVE NEGATIVE Urine Cannabinoids Screen NEGATIVE NEGATIVE My Orders Orders - TIMI MATTSON DO Amylase (07/25/17 03:15) Cbc With Automated Diff (07/25/17 03:15) Comprehensive Metabolic Panel (07/25/17 03:15) Creatine Kinase (07/25/17 03:15) Creatine Kinase Mb (07/25/17 03:15) Lipase (07/25/17 03:15) Partial Thromboplastin Time (07/25/17 03:15) Protime With Inr (07/25/17 03:15) Troponin I (07/25/17 03:15) Chest 1 View, Ap/Pa Only (07/25/17 03:15) O2 (07/25/17 03:15) Ekg Tracing (07/25/17 03:15) Aspirin Chewable Tablet (Baby Aspirin Ch (07/25/17 03:15) BNP (07/25/17 03:15) Monitor-Rhythm Ecg Trace Only (07/25/17 03:15) Magnesium (07/25/17 03:15) Nitroglycerin 0.4 Mg Btl 25's (Nitrostat (07/25/17 03:30) Lorazepam Injection (Ativan Injection) (07/25/17 04:15) Morphine Injection (Morphine Injection (07/25/17 04:05) Alcohol (07/25/17 04:17) Drug Screen Stat (Urine) (07/25/17 04:17) Ua Culture If Indicated (07/25/17 04:17) Ct Angio Chest W (07/25/17 04:17) Ekg Tracing (07/25/17 04:30) Iohexol Injection (Omnipaque 350 Mg/Ml 1 (07/25/17 05:15) Ns (Ivpb) (Sodium Chloride 0.9% Ivpb Bag (07/25/17 05:15) Medications Given in ED Current Medications Medications Dose Ordered Sig/Isabell Route Start Time Stop Time Status Last Admin Dose Admin Aspirin 324 mg ONCE ONCE PO 07/25/17 03:15 07/25/17 03:16 DC 07/25/17 03:19 324 MG Iohexol 150 ml ONCE ONCE IV 07/25/17 05:15 07/25/17 05:16 DC 07/25/17 05:09 125 ML Lorazepam 2 mg ONCE ONCE IVP 07/25/17 04:15 07/25/17 04:16 DC 07/25/17 04:23 2 MG Nitroglycerin 0.4 mg STK-MED ONCE SL 07/25/17 03:30 07/25/17 03:32 DC 07/25/17 03:32 0.4 MG Sodium Chloride 100 ml ONCE ONCE IV 07/25/17 05:15 07/25/17 05:16 DC 07/25/17 05:09 80 ML Vital Signs/I&O Vital Sign - Last 12Hours 07/25/17 07/25/17 07/25/17 07/25/17 03:10 03:13 03:13 03:19 Temp 98.1 98.1 Pulse 81 Resp 22 B/P (MAP) 115/66 (82) Pulse Ox 97 97 O2 Delivery Room Air Room Air Room Air Blood Pressure Mean: 82 Progress Note : Progress Note ALL SYMPTOMS COMPLETELY RESOLVED WITH MEDICATIONS AND PT SLEPT/ RESTED QUIETLY FOR REMAINDER OF ER STAY PT FEELS COMFORTABLE GOING HOME PT ADVISED TO FOLLOW UP WITH DR GUIDO THIS WEEK AND RETURN TO ER IF SYMPTOMS RETURN ECG Initial ECG Impression Time: 03:10 Initial ECG Rate: 72 Initial ECG Rhythm: Normal Sinus Initial ECG Comparisson: Unchanged EKG : EKG Time: 04:21 Rate: 77 Rhythm: Normal Sinus ECG Comparisson: Unchanged ECG Impression: Nonspecific Changes Diagnostic Imaging Comments CXR--NO ACUTE PROCESS, PENDING RADIOLOGIST REVIEW CT CHEST ANGIOGRAM--NO ACUTE PROCESS, NO P.E. --PER [facility] VIA FAX @ [phone] Reviewed: Reviewed by Me Departure Impression Impression: Primary Impression: Chest pain Additional Impressions: Anxiety Chest wall pain Disposition: HOME, SELF-CARE Condition: Improved Departure-Patient Inst. Referrals: KEIRY GUIDO MD, JULIE A MD (PCP/Family) Primary Care Physician Patient Instructions: Chest Pain (DC), Costochondritis (DC) Add. Discharge Instructions: TAKE YOUR MEDICATIONS PRESCRIBED FOLLOW UP WITH DR. GUIDO NEXT WEEK FOR FURTHER CARE RETURN TO ER IF SYMPTOMS RETURN All discharge instructions reviewed with patient and/or family. Voiced understanding. TIMI MATTSON DO Jul 25, 2017 04:33
[2017-07-25] MEDS ORDERED: NS 100 ML (IVPB) BAG IV ONE (05:15)
[2017-07-25] MEDS ORDERED: IOHEXOL 350 MG/ML 150 ML (OMNIPAQUE 350) VIAL IV ONE (05:15)
[2017-07-25 05:45] LABS: BILIRUBIN,URINE NEGATIVE (NEGATIVE); KETONES,URINE NEGATIVE (NEGATIVE); LEUKOCYTE ESTERASE ,URINE 1+ (NEGATIVE); NITRITE,URINE NEGATIVE (NEGATIVE); PH,URINE 6 (5-9); PROTEIN,URINE 1+ (NEGATIVE); UROBILINOGEN,URINE NORMAL (NORMAL)
[2017-07-25 05:52] LABS: SQUAMOUS EPITHELIAL CELL,UR RARE /HPF; WBC,URINE RARE /HPF
[2017-07-25 06:31] VITALS: BP 118/72
--- NOTE | 2017-07-25 07:22 | Diagnostic Imaging Report ---
INDICATION: Chest pain for 2 hours. Comparison with 07/12/2017. FINDINGS: The lungs are well-aerated. No acute infiltrates are demonstrated. Heart is not enlarged. No pulmonary edema. No hilar adenopathy. No pneumothorax or pleural effusions. IMPRESSION: Normal portable chest without significant change since previous exam. Dictated by: Dictated on workstation # [id number]
--- NOTE | 2017-07-25 07:25 | Diagnostic Imaging Report ---
PROCEDURE: CT angiography of the chest with contrast. TECHNIQUE: Multiple contiguous axial images were obtained through the chest after uneventful bolus administration of intravenous contrast. Reconstructed CTA MIP acquisitions were also performed. INDICATION: New onset of chest pain. Comparison with 07/03/2017. FINDINGS: There is good opacification of the aorta and pulmonary arteries. No evidence of aortic aneurysm or dissection. Pulmonary artery show normal enhancement with no filling defects to suggest pulmonary emboli. The lungs well-aerated. Findings are consistent with central lobar emphysematous changes throughout most prominently in the upper lobes. No mediastinal or hilar adenopathy. No pleural effusions or pericardial effusion. The small well-circumscribed hypodense area noted epidural region of L1 anteriorly measuring approximately 5 mm is again noted unchanged. IMPRESSION: 1. No evidence of pulmonary emboli. 2. Central lobar emphysema with most prominent findings in the upper lobes. Dictated by: Dictated on workstation # [id number]
== END 2017-07-25 06:23 | disposition home or self-care (01) ==
LOC: EDUNIT# 03:03 → ER 03:04
DX: F41.9 Anxiety disorder, unspecified (principal); R07.89 Other chest pain; K21.9 Gastro-esophageal reflux disease without esophagitis; F32.9 Major depressive disorder, single episode, unspecified; I25.10 Atherosclerotic heart disease of native coronary artery without angina pectoris; E78.00 Pure hypercholesterolemia, unspecified; I10 Essential (primary) hypertension; G25.81 Restless legs syndrome; J43.9 Emphysema, unspecified; F17.210 Nicotine dependence, cigarettes, uncomplicated; Z79.82 Long term (current) use of aspirin; Z90.49 Acquired absence of other specified parts of digestive tract; Z91.5 Personal history of self-harm; Z80.42 Family history of malignant neoplasm of prostate
CPT/HCPCS: 36415; 71010; 71275; 80053; 80306; 80320; 81000; 82150; 82550; 82553; 83690; 83735; 83880; 84484; 85025; 85610; 85730; 93041

== ENCOUNTER 2017-08-01 17:48 | Observation (INO) | payer MEDICARE ==
[~2017-08-01] VITALS: Ht 167.6 cm; Wt 61.7 kg
[2017-08-01] VITALS (12 sets, daily range): BP systolic 110–160; BP diastolic 71–105
[~2017-08-01 17:48] MED LIST changes: +ISOS30TA3 PO; +METO-387 PO; +NITR0.4T39 SL
[2017-08-01 18:21] LABS: BASOPHILS % (AUTO) 0 % (0-10); EOSINOPHILS % (AUTO) 1 % (0-10); LYMPHOCYTES # (AUTO) 2.2 X 10^3 (1.0-4.0); LYMPHOCYTES % (AUTO) 26 % (12-44); MEAN CORPUSCULAR HEMOGLOBIN 33 PG (25-34); MEAN CORPUSCULAR HGB CONC 34 G/DL (32-36); MEAN CORPUSCULAR VOLUME 98 FL (80-99); MEAN PLATELET VOLUME 9.1 FL (7.4-10.4); MONOCYTES # (AUTO) 0.6 X 10^3 (0.0-1.0); MONOCYTES % (AUTO) 7 % (0-12); NEUTROPHILS # (AUTO) 5.4 X 10^3 (1.8-7.8); NEUTROPHILS % (AUTO) 66 % (42-75); PLATELET COUNT 261 10^3/uL (130-400); RED BLOOD COUNT 3.96 10^6/uL (4.35-5.85); RED CELL DISTRIBUTION WIDTH 13.6 % (10.0-14.5); WHITE BLOOD COUNT 8.2 10^3/uL (4.3-11.0)
[2017-08-01 18:27] LABS: INR 1.1 (0.8-1.4); PROTHROMBIN TIME PATIENT 14.4 SEC (12.2-14.7)
[2017-08-01 18:40] LABS: ALANINE AMINOTRANSFERASE 12 U/L (0-55); ALBUMIN 3.9 GM/DL (3.2-4.5); AMYLASE 43 U/L (25-125); ANION GAP 13 MMOL/L (5-14); ASPARTATE AMINO TRANSFERASE 17 U/L (5-34); BILIRUBIN,TOTAL 0.4 MG/DL (0.1-1.0); BLOOD UREA NITROGEN 13 MG/DL (7-18); BUN/CREATININE RATIO 18; CALCIUM 8.9 MG/DL (8.5-10.1); CARBON DIOXIDE 23 MMOL/L (21-32); CHLORIDE 105 MMOL/L (98-107); CREATINE KINASE 199 U/L (30-200); CREATININE SERUM 0.74 MG/DL (0.60-1.30); GFR ESTIMATED > 60; GLUCOSE 122 MG/DL (70-105); LIPASE 16 U/L (8-78); MAGNESIUM 1.8 MG/DL (1.8-2.4); POTASSIUM 3.1 MMOL/L (3.6-5.0); SODIUM 141 MMOL/L (135-145); TOTAL PROTEIN 6.7 GM/DL (6.4-8.2)
--- NOTE | 2017-08-01 18:40 | Diagnostic Imaging Report ---
INDICATION: Chest pain. Compared 07/25/2017 FINDINGS: The heart size stable. No gross overdistention of the vascularity. Changes of COPD are chronic with heterogeneous air trapping, lucency greatest at the right upper lobe unchanged. Predominantly basilar interstitial opacity unchanged. No acute pathology. IMPRESSION: Stable chronic findings Dictated by: Dictated on workstation # [id number]
[2017-08-01 18:47] LABS: TROPONIN I < 0.30 NG/ML (<0.30)
--- NOTE | 2017-08-01 18:59 | ED Chest Pain ---
General Chief Complaint: Chest Pain Stated Complaint: CHEST PAIN Nursing Triage Note: chest pain starting last night at 2300. 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 GUIDO, WHICH SHOWED MINIMAL/NON-OCCLUSIVE SMALL VESSEL DISEASE. NO INTERVENTION. EF 50% PT SEEN HERE 07/12 AND 07/25 FOR SAME--WORK UP'S NEGATIVE, INCLUDING CT CHEST ANGIOGRAM ON 07/25/17 PT DOES HAVE EXTENSIVE RX DRUG ABUSE--POLYSUBSTANCE ABUSE/OVERDOSES, ESPECIALLY BENZODIAZEPINES ( XANAX ) AND NARCOTICS --HAS ALSO TESTED + FOR METHAMPHETAMINES WELL PT CONTINUES TO SMOKE 2-3 PPD PCP: [facility], DR. Bill ALAS CAFE MANAGER: DR. GUIDO Allergies and Home Medications Allergies Coded Allergies: ibuprofen (Verified Allergy, Unknown, 04/05/15) HYPERTENSION Home Medications Aspirin 81 Mg Tablet., 81 MG PO HS, (Reported) Atorvastatin Calcium 10 Mg Tablet, 10 MG PO DAILY, #30 Ref 4 Prescribed by: KEIRY GUIDO on 06/29/17 1014 Cyclobenzaprine HCl 10 Mg Tablet, (Reported) Isosorbide Mononitrate 30 Mg Tab.er.24h, (Reported) Metoprolol Succinate 25 Mg Tab.er.24h, (Reported) Nitroglycerin 0.4 Mg Tab.subl, (Reported) Tramadol HCl 50 Mg Tablet, (Reported) Review of Systems Constitutional: see HPI, diaphoresis, dizziness EENTM: No Symptoms Reported Respiratory: See HPI, Shortness of Air, SOA With Exertion, SOA at Rest Cardiovascular: See HPI, Chest Pain, Denies Edema, Lightheadedness, Denies Palpitations, Denies Syncope Gastrointestinal: See HPI, Denies Abdominal Pain, Nausea, Denies Vomiting Genitourinary: No Symptoms Reported Musculoskeletal: see HPI Skin: no symptoms reported Psychiatric/Neurological: Headache, Denies Numbness, Denies Paresthesia Endocrine: No Symptoms Reported Hematologic/Lymphatic: No Symptoms Reported Past Lpmpyxg-Nauipm-Gieytw Hx Patient Social History Alcohol Use: Denies Use Recreational Drug Use: Yes (EXTENSIVE RX DRUG ABUSE/POLYSUBSTANCE ABUSE/ OVERDOSES--BENZODIAZEPINES ( XANAX ), NARCOTICS. HAS ALSO TESTED + FOR METHAMPHETAMINES) Drug of Choice: XANAX, NARCOTICS, HAS ALSO TESTED + FOR METHAMPHETAMIES Smoking Status: Current Everyday Smoker (2-3 PPD) Type Used: Cigarettes (2-3 PPD) 2nd Hand Smoke Exposure: Yes Recent Foreign Travel: No Contact w/Someone Who Travel: No Recent Infectious Disease Expo: No Recent Hopitalizations: No Physical Abuse: No Sexual Abuse: No Immunizations Up To Date Tetanus Booster (TDap): Less than 5yrs PED Vaccines UTD: No Date of Pneumonia Vaccine: May 26, 2017 Date of Influenza Vaccine: May 26, 2017 Seasonal Allergies Seasonal Allergies: No Surgeries History of Surgeries: Yes (LUMBAR SPINE X2; CERVICAL SPINE X 3; CARPAL TUNNEL; EGD WITH REMOVAL OF FOOD BOLUS 01/2013; SKIN CANCER REMOVALS-LIP/EAR; BMT'S ROTATOR CUFF REPAIR; CARDIAC CATHS WITH NO INTERVENTION-MOST RECENTLY 06/29/17) Surgeries: Appendectomy, Ear Surgery, Gallbladder, Orthopedic Respiratory History of Respiratory Disorde: Yes (PER OLD RECORDS, PT HAS COPD, BUT PT DENIES) Respiratory Disorders: Chronic Bronchitis, COPD, Emphysema Cardiovascular History of Cardiac Disorders: Yes Cardiac Disorders: Coronary Artery Disease, High Cholesterol, Hypertension Neurological History of Neurological Disord: Yes (RESTLESS LEG SYNDROME) Reproductive System Hx Reproductive Disorders: No Sexually Transmitted Disease: No HIV/AIDS: No Genitourinary History of Genitourinary Disor: No Gastrointestinal History of Gastrointestinal Di: Yes (CHRONIC DYSPHAGIA AND HOARSENESS; ESOPHAGEAL STRICTURE) Gastrointestinal Disorders: Gastroesophageal Reflux Musculoskeletal History of Musculoskeletal Dis: Yes (C2-C6 FUSION NECK,ROTATOR CUFF REPAIR; CHRONIC NECK AND BACK PAIN ) Musculoskeletal Disorders: Chronic Back Pain Endocrine History of Endocrine Disorders: No HEENT History of HEENT Disorders: Yes (POOR DENTITION) Hearing Impairment: Hard of Hearing Cancer History of Cancer: Yes Cancer: Skin Did You Recieve Any Treatments: Yes Type of Tx Receive: Surgical Intervention Psychosocial History of Psychiatric Problem: Yes (POLYSUBSTANCE ABUSE/OVERDOSES PER OLD RECORDS;HX OF GETTING MULTIPLE RX'S FROM MULTIPLE PROVIDERS AND FILLING THEM AT MULTIPLE DIFFERENT PHARMACIES; MULTIPLE OVERDOSES AND HAS BEEN KICKED OUT OF [facility] FOR NON-COMPLIANCE; MULTIPLE ACCIDENTS FROM BEING "HIGH" WHILE UNDER THE INFLUENCE OF MULTIPLE SUBSTANCES. ) Behavioral Health Disorders: Anxiety, Suicide Attempts, Depression Suicide Risk Score: 0 Integumentary History of Skin or Integumenta: No Blood Transfusions History of Blood Disorders: No Adverse Reaction to a Blood Tr: No Family Medical History Significant Family History: Cancer Family Medial History: Cancer 03 FATHER (PROSTATE) 03 MOTHER (BREAST CA ) 09 BROTHER (THROAT/PANCREATIC) 09 SISTER (LIVER) DEAFNESS 03 FATHER 09 BROTHER Family history: Breast disease 03 MOTHER (BREAST CA) History of - respiratory disease Prostate cancer 03 FATHER Stroke 03 MOTHER Visual impairment Physical Exam Vital Signs Vital Sign - Last 12Hours 08/01/17 18:00 Temp 98.2 Pulse 79 Resp 15 B/P (MAP) 133/83 (100) Pulse Ox 96 Capillary Refill : Less Than 3 Seconds General Appearance: No Apparent Distress, WD/WN, Anxious, Thin, Other (REEKS OF CIGARETTES, DIRTY) HEENT: PERRL/EOMI, Other (EDENTULOUS/POOR DENTITION) Neck: Full Range of Motion, Normal Inspection, Non Tender, Supple Respiratory: Normal Breath Sounds, No Accessory Muscle Use, No Respiratory Distress, Other (MODERATE TENDERNESS TO MID STERNUM--PALPATION REPRODUCES PAIN) Cardiovascular: Regular Rate, Rhythm, No Edema, No JVD, No Murmur, Normal Peripheral Pulses Gastrointestinal: Normal Bowel Sounds, No Organomegaly, No Pulsatile Mass, Non Tender, Soft Extremity: Normal Capillary Refill, Normal Inspection, Normal Range of Motion, Non Tender, No Calf Tenderness Neurologic/Psychiatric: Alert, Oriented x3, No Motor/Sensory Deficits, cytotechnologist/histotechnologist II- XII Norm as Tested Skin: Normal Color, Warm/Dry, Other (MULTIPLE SORES/SCABS/SCARS TO FOREARMS) Progress/Results/Core Measures Results/Orders Lab Results Laboratory Tests Test 08/01/17 17:50 Range/Units White Blood Count 8.2 4.3-11.0 10^3/uL Red Blood Count 3.96 L 4.35-5.85 10^6/uL Hemoglobin 13.0 L 13.3-17.7 G/DL Hematocrit 39 L 40-54 % Mean Corpuscular Volume 98 80-99 FL Mean Corpuscular Hemoglobin 33 25-34 PG Mean Corpuscular Hemoglobin Concent 34 32-36 G/DL Red Cell Distribution Width 13.6 10.0-14.5 % Platelet Count 261 130-400 10^3/uL Mean Platelet Volume 9.1 7.4-10.4 FL Neutrophils (%) (Auto) 66 42-75 % Lymphocytes (%) (Auto) 26 12-44 % Monocytes (%) (Auto) 7 0-12 % Eosinophils (%) (Auto) 1 0-10 % Basophils (%) (Auto) 0 0-10 % Neutrophils # (Auto) 5.4 1.8-7.8 X 10^3 Lymphocytes # (Auto) 2.2 1.0-4.0 X 10^3 Monocytes # (Auto) 0.6 0.0-1.0 X 10^3 Eosinophils # (Auto) 0.0 0.0-0.3 10^3/uL Basophils # (Auto) 0.0 0.0-0.1 10^3/uL Prothrombin Time 14.4 12.2-14.7 SEC INR Comment 1.1 0.8-1.4 Activated Partial Thromboplast Time 31 24-35 SEC Sodium Level 141 135-145 MMOL/L Potassium Level 3.1 L 3.6-5.0 MMOL/L Chloride Level 105 98-107 MMOL/L Carbon Dioxide Level 23 21-32 MMOL/L Anion Gap 13 5-14 MMOL/L Blood Urea Nitrogen 13 7-18 MG/DL Creatinine 0.74 0.60-1.30 MG/DL Estimat Glomerular Filtration Rate > 60 BUN/Creatinine Ratio 18 Glucose Level 122 H 70-105 MG/DL Calcium Level 8.9 8.5-10.1 MG/DL Magnesium Level 1.8 1.8-2.4 MG/DL Total Bilirubin 0.4 0.1-1.0 MG/DL Aspartate Amino Transf (AST/SGOT) 17 5-34 U/L Alanine Aminotransferase (ALT/SGPT) 12 0-55 U/L Alkaline Phosphatase 73 40-136 U/L Total Creatine Kinase 199 30-200 U/L Creatine Kinase MB 1.0 <6.6 NG/ML Troponin I < 0.30 <0.30 NG/ML B-Type Natriuretic Peptide 36.0 <100.0 PG/ML Total Protein 6.7 6.4-8.2 GM/DL Albumin 3.9 3.2-4.5 GM/DL Amylase Level 43 25-125 U/L Lipase 16 8-78 U/L Serum Alcohol < 10 <10 MG/DL My Orders Orders - TIMI MATTSON DO Amylase (08/01/17 18:15) Cbc With Automated Diff (08/01/17 18:15) Comprehensive Metabolic Panel (08/01/17 18:15) Creatine Kinase (08/01/17 18:15) Creatine Kinase Mb (08/01/17 18:15) Lipase (08/01/17 18:15) Partial Thromboplastin Time (08/01/17 18:15) Protime With Inr (08/01/17 18:15) Troponin I (08/01/17 18:15) Chest 1 View, Ap/Pa Only (08/01/17 18:15) O2 (08/01/17 18:15) Ekg Tracing (08/01/17 18:15) BNP (08/01/17 18:15) Monitor-Rhythm Ecg Trace Only (08/01/17 18:15) Magnesium (08/01/17 18:15) Ketorolac Injection (Toradol Injection) (08/01/17 19:00) Orphenadrine Injection (Norflex Injectio (08/01/17 19:00) Medications Given in ED Current Medications Medications Dose Ordered Sig/Isabell Route Start Time Stop Time Status Last Admin Dose Admin Ketorolac Tromethamine 30 mg ONCE ONCE IVP 08/01/17 19:00 08/01/17 19:01 DC 08/01/17 19:08 30 MG Orphenadrine Citrate 60 mg ONCE ONCE IV 08/01/17 19:00 08/01/17 19:01 DC 08/01/17 19:07 60 MG Vital Signs/I&O Vital Sign - Last 12Hours 08/01/17 08/01/17 18:00 18:34 Temp 98.2 Pulse 79 68 75 85 Resp 15 B/P (MAP) 133/83 (100) 128/77 (94) 129/76 (93) 110/79 (89) Pulse Ox 96 Blood Pressure Mean: 89 Progress Note : Progress Note PAIN EASED AT TIME OF ADMIT ECG Initial ECG Impression Time: 17:47 Initial ECG Rate: 83 Initial ECG Rhythm: Normal Sinus EKG : EKG Time: 18:12 Rate: 73 Rhythm: Normal Sinus Diagnostic Imaging Comments CXR--NO ACUTE PROCESS, PER RADIOLOGIST REPORT @ 1125 Reviewed: Reviewed by Me Departure Communication (Admissions) Progress Notes SPOKE WITH DR. LANDRUM, CUSTOMER EXPERIENCE INTERN FOR [facility]. ACCEPTS PT FOR ADMIT SPOKE WITH DR. RAMIREZ FOR CARDIOLOGY CONSULT. HE ADVISES PLAVIX 300 MG PO NOW AND 75MG IN AM AND DAILY Impression Impression: Primary Impression: Chest pain Disposition: ADMITTED INPATIENT Condition: Improved Admissions Decision to Admit Reason: Admit from ER (General) Decision to Admit/Date: Aug 01, 2017 Time/Decision to Admit Time: 19:00 Departure-Patient Inst. Referrals: ARIADNA ALAS MD (PCP/Family) Primary Care Physician TIMI MATTSON DO Aug 01, 2017 18:59
[2017-08-01] MEDS ORDERED: ORPHENADRINE 60 MG/2 ML (NORFLEX) AMP IV ONE (19:00)
[2017-08-01] MEDS ORDERED: KETOROLAC 30 MG/ML VIAL IVP ONE (19:00)
[2017-08-01] MEDS ORDERED: CLOPIDOGREL 300 MG (PLAVIX) TABLET PO ONE (19:15)
[2017-08-01 19:25] LABS: BILIRUBIN,URINE NEGATIVE (NEGATIVE); KETONES,URINE NEGATIVE (NEGATIVE); LEUKOCYTE ESTERASE ,URINE 1+ (NEGATIVE); NITRITE,URINE NEGATIVE (NEGATIVE); PH,URINE 6.5 (5-9); PROTEIN,URINE NEGATIVE (NEGATIVE); UROBILINOGEN,URINE 1 MG/DL (NORMAL)
--- OUTSIDE RECORDS SUMMARY | 2017-08-01 19:25 | XMS REPORT | Clinical Summary ---
Author Author [facility] Organization [facility] Address Unknown Phone Unavailable Care Team Providers Care Stock Repairer Name Role Phone PCP Unavailable Source Comments Some departments are not documenting in the electronic medical record. If you do not see the information that you expected, contact Release of Information in the Health Information Management department at [phone] for further assistance in locating additional records.[facility] Allergies Not on File Current Medications Not on file Active Problems Not on file Social History Tobacco Use Types Packs/Day Years Used Date Never Assessed Sex Assigned at Date Recorded Not on file Last Filed Vital Signs Not on file Plan of Treatment Health Maintenance Due Date Last Done Comments HEPATITIS C SCREENING 1955 PHYSICAL (COMPREHENSIVE) 1962 EXAM PERTUSSIS VACCINE 1966 TETANUS VACCINE 02/14/1972 COLORECTAL CANCER 2005 SCREENING SHINGLES VACCINE 2015 INFLUENZA VACCINE 03/17/2017 Results Not on filefrom Last 3 Months
--- OUTSIDE RECORDS SUMMARY | 2017-08-01 19:30 | XMS REPORT | Continuity of Care Document ---
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 06/11/2017 KACEY BURCH MD Ot 724.02 SPINAL STENOSIS, LUMBAR REG, W/OUT NEURO 06/11/2017 ARNOLD GOFF MD Ot 724.2 LUMBAGO 06/11/2017 ARNOLD GOFF MD Ot 737.30 IDIOPATHIC SCOLIOSIS 06/11/2017 KACEY BURCH MD Ot M48.07 SPINAL STENOSIS, LUMBOSACRAL REGION 06/11/2017 BRADLEY NAYAK, CARYN R Ot R33.9 RETENTION OF URINE, UNSPECIFIED 06/18/2017 ARIADNA DYER MD Ot R07.9 CHEST PAIN, UNSPECIFIED 06/25/2017 ARIADNA DYER MD Ot Z12.2 ENCNTR SCREEN FOR MALIGNANT NEOPLASM OF 06/25/2017 TERESO BROWN MD, I Ot 729.2 NEURALGIA/NEURITIS NOS 06/25/2017 TERESO BROWN MD, I Ot 786.2 COUGH 06/25/2017 TERESO BROWN MD, I Ot V72.84 EXAM PRE-OPERATIVE NOS 06/25/2017 JOÃO KEY, KRISTINA M Ot 338.29 OTHER CHRONIC PAIN 06/25/2017 KRISTINA SERRATO M Ot 719.41 JOINT PAIN-SHLDER 06/25/2017 KRISTINA SERRATO M Ot 723.1 CERVICALGIA 06/25/2017 KRISTINA SERRATO M Ot 726.10 BURSAE TENDONS DIS SHLDER NOS 06/25/2017 JOÃO KEY, KRISTINA M Ot 726.13 PARTIAL TEAR OF ROTATOR CUFF 06/25/2017 KACEY BURCH MD Ot V45.4 ARTHRODESIS STATUS 06/25/2017 KACEY BURCH MD Ot V67.09 SURGERY FOLLOW-UP, OTHER SURGERY 06/25/2017 KACEY BURCH MD Ot 724.02 SPINAL STENOSIS, LUMBAR REG, W/OUT NEURO 06/25/2017 ARNOLD GOFF MD Ot 724.2 LUMBAGO 06/25/2017 ARNOLD OGFF MD Ot 737.30 IDIOPATHIC SCOLIOSIS 06/25/2017 KACEY BURCH MD Ot M48.07 SPINAL STENOSIS, LUMBOSACRAL REGION 06/25/2017 BRADLEY NAYAK, CARYN Grijalva Ot R33.9 RETENTION OF URINE, UNSPECIFIED 06/25/2017 ARIADNA DYER MD Ot R07.9 CHEST PAIN, UNSPECIFIED 06/25/2017 ARIADNA DYER MD Ot Z12.2 ENCNTR SCREEN FOR MALIGNANT NEOPLASM OF 06/30/2017 ARIADNA DYER MD, Ot Z12.2 ENCNTR SCREEN FOR MALIGNANT NEOPLASM OF 07/06/2017 ARIADNA DYER MD Ot F17.210 NICOTINE DEPENDENCE, CIGARETTES, UNCOMPL 07/06/2017 ARIADNA DYER MD Ot J43.9 EMPHYSEMA, UNSPECIFIED 07/06/2017 ARIADNA DYER MD Ot R93.7 ABNORMAL FINDINGS ON DIAGNOSTIC IMAGING 07/06/2017 ARIADNA DYER MD Ot Z12.2 ENCNTR SCREEN FOR MALIGNANT NEOPLASM OF 07/09/2017 ARIADNA DYER MD Ot F17.210 NICOTINE DEPENDENCE, CIGARETTES, UNCOMPL 07/09/2017 ARIADNA DYER MD, Ot J43.9 EMPHYSEMA, UNSPECIFIED 07/09/2017 ARIADNA DYER MD Ot R93.7 ABNORMAL FINDINGS ON DIAGNOSTIC IMAGING 07/09/2017 ARIADNA DYER MD, Ot Z12.2 ENCNTR SCREEN FOR MALIGNANT NEOPLASM OF 07/10/2017 ARIADNA DYER MD Ot R07.9 CHEST PAIN, UNSPECIFIED 07/24/2017 KEIRY GUIDO MD Ot E78.5 HYPERLIPIDEMIA, UNSPECIFIED 07/24/2017 KEIRY GUIDO MD Ot F17.210 NICOTINE DEPENDENCE, CIGARETTES, UNCOMPL 07/24/2017 KEIRY GUIDO MD Ot I10 ESSENTIAL (PRIMARY) HYPERTENSION 07/24/2017 KEIRY GUIDO MD, Ot I25.10 ATHSCL HEART DISEASE OF [place] CORONARY 07/24/2017 KEIRY GUIDO MD Ot M48.061 SPINAL STENOSIS, LUMBAR REGION WITHOUT N 07/24/2017 KERIY GUIDO MD, Ot M51.36 OTHER INTERVERTEBRAL DISC DEGENERATION, 07/24/2017 KEIRY GUIDO MD, Ot M96.1 POSTLAMINECTOMY SYNDROME, NOT ELSEWHERE 07/24/2017 KEIRY GUIDO MD Ot R06.02 SHORTNESS OF BREATH 07/24/2017 KEIRY GUIDO MD Ot R07.9 CHEST PAIN, UNSPECIFIED 07/24/2017 KEIRY GUIDO MD Ot R94.39 ABNORMAL RESULT OF OTHER CARDIOVASCULAR 07/24/2017 KEIRY GUIDO MD, Ot Z79.899 OTHER [employer] (CURRENT) DRUG THERAPY 07/28/2017 ARIADNA DYER MD, Ot F17.210 NICOTINE DEPENDENCE, CIGARETTES, UNCOMPL 07/28/2017 ARIADNA DYER MD, Ot J43.9 EMPHYSEMA, UNSPECIFIED 07/28/2017 ARIADNA DYER MD, Ot R93.7 ABNORMAL FINDINGS ON DIAGNOSTIC IMAGING 07/28/2017 ARIADNA DYER MD, Ot Z12.2 ENCNTR SCREEN FOR MALIGNANT NEOPLASM OF Procedures Code Description [place] [address] MRI EXTREMITY JOINT, UPPER RIGHT, W/O CONTRAST 11/21/2013 [facility] SCREEN 11/21/2013 82859 MRI EXTREMITY JOINT, UPPER RIGHT W & W/O CONTRAST 12/07/2013 [id number] [employer] [facility] SCREEN 12/09/2013 Results Test Result Range Complete blood count (CBC) with automated white blood cell (WBC) differential - 08/10/16 13:24 Blood leukocytes automated count (number/volume) 7.1 10*3/uL 4.3-11.0 Blood erythrocytes automated count (number/volume) 4.87 10*6/uL 4.35-5.85 Venous blood hemoglobin measurement (mass/volume) 15.5 g/dL 13.3-17.7 Blood hematocrit (volume fraction) 46 % 40-54 Automated erythrocyte mean corpuscular volume 95 [foz_us] 80-99 Automated erythrocyte mean corpuscular hemoglobin (mass per erythrocyte) 32 pg 25-34 Automated erythrocyte mean corpuscular hemoglobin concentration measurement ( mass/volume) 33 g/dL 32-36 Automated erythrocyte distribution width ratio 13.5 % 10.0-14.5 Automated blood platelet count (count/volume) 230 10*3/uL 130-400 Automated blood platelet mean volume measurement 9.4 [foz_us] 7.4-10.4 Automated blood neutrophils/100 leukocytes 64 % 42-75 Automated blood lymphocytes/100 leukocytes 29 % 12-44 Blood monocytes/100 leukocytes 7 % 0-12 Automated blood eosinophils/100 leukocytes 0 % 0-10 Automated blood basophils/100 leukocytes 0 % 0-10 Blood neutrophils automated count (number/volume) 4.6 10*3 1.8-7.8 Blood lymphocytes automated count (number/volume) 2.0 10*3 1.0-4.0 Blood monocytes automated count (number/volume) 0.5 10*3 0.0-1.0 Automated eosinophil count 0.0 10*3/uL 0.0-0.3 Automated blood basophil count (count/volume) 0.0 10*3/uL 0.0-0.1 Comprehensive metabolic panel - 08/10/16 13:24 Serum or plasma sodium measurement (moles/volume) 141 mmol/L 135-145 Serum or plasma potassium measurement (moles/volume) 3.3 mmol/L 3.6-5.0 Serum or plasma chloride measurement (moles/volume) 107 mmol/L 98-107 Carbon dioxide 24 mmol/L 21-32 Serum or plasma anion gap determination (moles/volume) 10 mmol/L 5-14 Serum or plasma urea nitrogen measurement (mass/volume) 13 mg/dL 7-18 Serum or plasma creatinine measurement (mass/volume) 0.69 mg/dL 0.60-1.30 Serum or plasma urea nitrogen/creatinine mass ratio 19 NRG Serum or plasma creatinine measurement with calculation of estimated glomerular filtration rate > NRG Serum or plasma glucose measurement (mass/volume) 102 mg/dL 70-105 Serum or plasma calcium measurement (mass/volume) 9.2 mg/dL 8.5-10.1 Serum or plasma total bilirubin measurement (mass/volume) 0.4 mg/dL 0.1-1.0 Serum or plasma alkaline phosphatase measurement (enzymatic activity/volume) 86 U/L 40-136 Serum or plasma aspartate aminotransferase measurement (enzymatic activity/ volume) 18 U/L 5-34 Serum or plasma alanine aminotransferase measurement (enzymatic activity/volume ) 14 U/L 0-55 Serum or plasma protein measurement (mass/volume) 6.9 g/dL 6.4-8.2 Serum or plasma albumin measurement (mass/volume) 4.1 g/dL 3.2-4.5 Serum or plasma ethanol measurement (mass/volume) - 08/10/16 13:24 Serum or plasma ethanol measurement (mass/volume) < mg/dL <10 Urine drug screening test - 08/10/16 14:48 Urine phencyclidine detection by screening method NEGATIVE NEGATIVE Urine benzodiazepines detection by screening method NEGATIVE NEGATIVE Urine cocaine detection NEGATIVE NEGATIVE Urine amphetamines detection by screening method NEGATIVE NEGATIVE Urine methamphetamine detection by screening method NEGATIVE NEGATIVE Urine cannabinoids detection by screening method NEGATIVE NEGATIVE Urine opiates detection by screening method NEGATIVE NEGATIVE Urine barbiturates detection NEGATIVE NEGATIVE Screening urine tricyclic antidepressants detection NEGATIVE NEGATIVE Urine methadone detection by screening method NEGATIVE NEGATIVE Urine oxycodone detection NEGATIVE NEGATIVE Urine propoxyphene detection NEGATIVE NEGATIVE Complete urinalysis with reflex to culture - 08/10/16 14:48 Urine color determination YELLOW NRG Urine clarity determination CLEAR NRG Urine pH measurement by test strip 6 5-9 Specific gravity of urine by test strip 1.020 1.016- 1.022 Urine protein assay by test strip, semi-quantitative NEGATIVE NEGATIVE Urine glucose detection by automated test strip NEGATIVE NEGATIVE Erythrocytes detection in urine sediment by light microscopy 4+ NEGATIVE Urine ketones detection by automated test strip NEGATIVE NEGATIVE Urine nitrite detection by test strip NEGATIVE NEGATIVE Urine total bilirubin detection by test strip NEGATIVE NEGATIVE Urine urobilinogen measurement by automated test strip (mass/volume) NORMAL NORMAL Urine leukocyte esterase detection by dipstick NEGATIVE NEGATIVE Automated urine sediment erythrocyte count by microscopy (number/high power field) [HPF] NRG Automated urine sediment leukocyte count by microscopy (number/high power field ) RARE NRG Bacteria detection in urine sediment by light microscopy FEW NRG Crystals detection in urine sediment by light microscopy NONE NRG Casts detection in urine sediment by light microscopy NONE NRG Mucus detection in urine sediment by light microscopy SMALL NRG Complete urinalysis with reflex to culture NO NRG Tick identification panel - 12/28/16 21:50 Serum Ehrlichia chaffeensis IgG antibody detection <1:16 <1:16 Serum Ehrlichia chaffeensis IgM antibody detection <1:10 <1:10 Serum Rickettsia rickettsii IgG antibody assay (units/volume) < <1:16 [place] spotted fever panel < <1:10 Francisella tularensis antibody assay <1:20 NRG LYME AB G M 0.04 % 0.00-0.89 Interpretation of Lyme disease antibody assay Negative Negative Complete blood count (CBC) with automated white blood cell (WBC) differential - 01/22/17 21:39 Blood leukocytes automated count (number/volume) 8.5 10*3/uL 4.3-11.0 Blood erythrocytes automated count (number/volume) 4.50 10*6/uL 4.35-5.85 Venous blood hemoglobin measurement (mass/volume) 14.5 g/dL 13.3-17.7 Blood hematocrit (volume fraction) 44 % 40-54 Automated erythrocyte mean corpuscular volume 97 [foz_us] 80-99 Automated erythrocyte mean corpuscular hemoglobin (mass per erythrocyte) 32 pg 25-34 Automated erythrocyte mean corpuscular hemoglobin concentration measurement ( mass/volume) 33 g/dL 32-36 Automated erythrocyte distribution width ratio 13.6 % 10.0-14.5 Automated blood platelet count (count/volume) 210 10*3/uL 130-400 Automated blood platelet mean volume measurement 9.2 [foz_us] 7.4-10.4 Automated blood neutrophils/100 leukocytes 48 % 42-75 Automated blood lymphocytes/100 leukocytes 43 % 12-44 Blood monocytes/100 leukocytes 8 % 0-12 Automated blood eosinophils/100 leukocytes 1 % 0-10 Automated blood basophils/100 leukocytes 1 % 0-10 Blood neutrophils automated count (number/volume) 4.1 10*3 1.8-7.8 Blood lymphocytes automated count (number/volume) 3.6 10*3 1.0-4.0 Blood monocytes automated count (number/volume) 0.7 10*3 0.0-1.0 Automated eosinophil count 0.1 10*3/uL 0.0-0.3 Automated blood basophil count (count/volume) 0.0 10*3/uL 0.0-0.1 PT panel in platelet poor plasma by coagulation assay - 01/22/17 21:39 Prothrombin time (PT) in platelet poor plasma by coagulation assay 13.0 s 12.2-14.7 INR in platelet poor plasma or blood by coagulation assay 1.0 0.8-1.4 Activated partial thromboplastin time (aPTT) in platelet poor plasma bycoagulation assay - 01/22/17 21:39 Activated partial thromboplastin time (aPTT) in platelet poor plasma bycoagulation assay 29 s 24-35 Comprehensive metabolic panel - 01/22/17 21:39 Serum or plasma sodium measurement (moles/volume) 141 mmol/L 135-145 Serum or plasma potassium measurement (moles/volume) 3.4 mmol/L 3.6-5.0 Serum or plasma chloride measurement (moles/volume) 106 mmol/L 98-107 Carbon dioxide 23 mmol/L 21-32 Serum or plasma anion gap determination (moles/volume) 12 mmol/L 5-14 Serum or plasma urea nitrogen measurement (mass/volume) 18 mg/dL 7-18 Serum or plasma creatinine measurement (mass/volume) 0.85 mg/dL 0.60-1.30 Serum or plasma urea nitrogen/creatinine mass ratio 21 NRG Serum or plasma creatinine measurement with calculation of estimated glomerular filtration rate > NRG Serum or plasma glucose measurement (mass/volume) 97 mg/dL 70-105 Serum or plasma calcium measurement (mass/volume) 9.4 mg/dL 8.5-10.1 Serum or plasma total bilirubin measurement (mass/volume) 0.4 mg/dL 0.1-1.0 Serum or plasma alkaline phosphatase measurement (enzymatic activity/volume) 82 U/L 40-136 Serum or plasma aspartate aminotransferase measurement (enzymatic activity/ volume) 14 U/L 5-34 Serum or plasma alanine aminotransferase measurement (enzymatic activity/volume ) 11 U/L 0-55 Serum or plasma protein measurement (mass/volume) 7.2 g/dL 6.4-8.2 Serum or plasma albumin measurement (mass/volume) 4.1 g/dL 3.2-4.5 Magnesium - 01/22/17 21:39 Magnesium 2.0 mg/dL 1.8-2.4 Serum or plasma thyroxine (T4) free measurement (mass/volume) - 01/22/17 21:39 Serum or plasma thyroxine (T4) free measurement (mass/volume) 1.02 ng/dL 0.70-1.48 Serum or plasma creatine kinase measurement (enzymatic activity/volume) - 01/22 21:39 Serum or plasma creatine kinase measurement (enzymatic activity/volume) 109 U/L 30-200 Serum or plasma C reactive protein measurement (mass/volume) - 01/22/17 21:39 Serum or plasma C reactive protein measurement (mass/volume) 0.17 mg /dL 0.00-0.50 Serum or plasma troponin i.cardiac measurement (mass/volume) - 01/22/17 21:39 Serum or plasma troponin i.cardiac measurement (mass/volume) < ng/ mL <0.30 Myoglobin, serum - 01/22/17 21:39 Myoglobin, serum 26.5 ng/mL 10.0-92.0 Serum or plasma thyrotropin measurement by detection limit <=0.05 miu/l (units/ volume) - 01/22/17 21:39 Serum or plasma thyrotropin measurement by detection limit <=0.05 miu/l (units/ volume) 0.31 u[iU]/mL 0.35-4.94 Serum or plasma ethanol measurement (mass/volume) - 01/22/17 21:39 Serum or plasma ethanol measurement (mass/volume) < mg/dL <10 Lipase - 01/22/17 21:39 Lipase 18 U/L 8-78 Tick identification panel - 01/22/17 21:39 Serum Ehrlichia chaffeensis IgG antibody detection <1:16 <1:16 Serum Ehrlichia chaffeensis IgM antibody detection <1:10 <1:10 Serum Rickettsia rickettsii IgG antibody assay (units/volume) < <1:16 [place] spotted fever panel < <1:10 Francisella tularensis antibody assay <1:20 NRG LYME AB G M 0.04 % 0.00-0.89 Interpretation of Lyme disease antibody assay Negative Negative Complete urinalysis with reflex to culture - 01/22/17 23:49 Urine color determination YELLOW NRG Urine clarity determination CLEAR NRG Urine pH measurement by test strip 5 5-9 Specific gravity of urine by test strip 1.025 1.016- 1.022 Urine protein assay by test strip, semi-quantitative 1+ NEGATIVE Urine glucose detection by automated test strip NEGATIVE NEGATIVE Erythrocytes detection in urine sediment by light microscopy NEGATIVE NEGATIVE Urine ketones detection by automated test strip NEGATIVE NEGATIVE Urine nitrite detection by test strip NEGATIVE NEGATIVE Urine total bilirubin detection by test strip NEGATIVE NEGATIVE Urine urobilinogen measurement by automated test strip (mass/volume) 1 mg/dL NORMAL Urine leukocyte esterase detection by dipstick NEGATIVE NEGATIVE Automated urine sediment erythrocyte count by microscopy (number/high power field) NONE NRG Automated urine sediment leukocyte count by microscopy (number/high power field ) NONE NRG Bacteria detection in urine sediment by light microscopy TRACE NRG Squamous epithelial cells detection in urine sediment by light microscopy RARE NRG Crystals detection in urine sediment by light microscopy PRESENT NRG Casts detection in urine sediment by light microscopy NONE NRG Mucus detection in urine sediment by light microscopy MODERATE NRG Complete urinalysis with reflex to culture NO NRG Calcium oxalate crystals detection in urine sediment by light microscopy FEW NRG Urine drug screening test - 01/22/17 23:49 Urine phencyclidine detection by screening method NEGATIVE NEGATIVE Urine benzodiazepines detection by screening method POSITIVE NEGATIVE Urine cocaine detection NEGATIVE NEGATIVE Urine amphetamines detection by screening method NEGATIVE NEGATIVE Urine methamphetamine detection by screening method NEGATIVE NEGATIVE Urine cannabinoids detection by screening method NEGATIVE NEGATIVE Urine opiates detection by screening method POSITIVE NEGATIVE Urine barbiturates detection NEGATIVE NEGATIVE Screening urine tricyclic antidepressants detection NEGATIVE NEGATIVE Urine methadone detection by screening method NEGATIVE NEGATIVE Urine oxycodone detection NEGATIVE NEGATIVE Urine propoxyphene detection NEGATIVE NEGATIVE Automated blood complete blood count (hemogram) panel - 06/29/17 07:12 Blood leukocytes automated count (number/volume) 14.4 10*3/uL 4.3-11.0 Blood erythrocytes automated count (number/volume) 4.36 10*6/uL 4.35-5.85 Venous blood hemoglobin measurement (mass/volume) 14.1 g/dL 13.3-17.7 Blood hematocrit (volume fraction) 42 % 40-54 Automated erythrocyte mean corpuscular volume 97 [foz_us] 80-99 Automated erythrocyte mean corpuscular hemoglobin (mass per erythrocyte) 32 pg 25-34 Automated erythrocyte mean corpuscular hemoglobin concentration measurement ( mass/volume) 33 g/dL 32-36 Automated erythrocyte distribution width ratio 13.0 % 10.0-14.5 Automated blood platelet count (count/volume) 307 10*3/uL 130-400 Automated blood platelet mean volume measurement 8.9 [foz_us] 7.4-10.4 PT panel in platelet poor plasma by coagulation assay - 06/29/17 07:12 Prothrombin time (PT) in platelet poor plasma by coagulation assay 13.4 s 12.2-14.7 INR in platelet poor plasma or blood by coagulation assay 1.0 0.8-1.4 Activated partial thromboplastin time (aPTT) in platelet poor plasma bycoagulation assay - 06/29/17 07:12 Activated partial thromboplastin time (aPTT) in platelet poor plasma bycoagulation assay 29 s 24-35 Comprehensive metabolic panel - 06/29/17 07:12 Serum or plasma sodium measurement (moles/volume) 141 mmol/L 135-145 Serum or plasma potassium measurement (moles/volume) 3.2 mmol/L 3.6-5.0 Serum or plasma chloride measurement (moles/volume) 104 mmol/L 98-107 Carbon dioxide 25 mmol/L 21-32 Serum or plasma anion gap determination (moles/volume) 12 mmol/L 5-14 Serum or plasma urea nitrogen measurement (mass/volume) 23 mg/dL 7-18 Serum or plasma creatinine measurement (mass/volume) 0.88 mg/dL 0.60-1.30 Serum or plasma urea nitrogen/creatinine mass ratio 26 NRG Serum or plasma creatinine measurement with calculation of estimated glomerular filtration rate > NRG Serum or plasma glucose measurement (mass/volume) 95 mg/dL 70-105 Serum or plasma calcium measurement (mass/volume) 9.2 mg/dL 8.5-10.1 Serum or plasma total bilirubin measurement (mass/volume) 0.6 mg/dL 0.1-1.0 Serum or plasma alkaline phosphatase measurement (enzymatic activity/volume) 86 U/L 40-136 Serum or plasma aspartate aminotransferase measurement (enzymatic activity/ volume) 14 U/L 5-34 Serum or plasma alanine aminotransferase measurement (enzymatic activity/volume ) 13 U/L 0-55 Serum or plasma protein measurement (mass/volume) 7.2 g/dL 6.4-8.2 Serum or plasma albumin measurement (mass/volume) 4.1 g/dL 3.2-4.5 Lipid 1996 panel - 06/29/17 07:12 Serum or plasma triglyceride measurement (mass/volume) 152 mg/dL <150 Serum or plasma cholesterol measurement (mass/volume) 206 mg/dL < 200 Serum or plasma cholesterol in HDL measurement (mass/volume) 47 mg/ dL 40-60 Cholesterol in LDL [mass/volume] in serum or plasma by direct assay 143 mg/dL 1-129 Serum or plasma cholesterol in VLDL measurement (mass/volume) 30 mg/ dL 5-40 Methicillin resistant Staphylococcus aureus (MRSA) screening culture - 11/13/ 17 07:12 Methicillin resistant Staphylococcus aureus (MRSA) screening culture NEG NRG Complete blood count (CBC) with automated white blood cell (WBC) differential - 07/12/17 15:47 Blood leukocytes automated count (number/volume) 8.5 10*3/uL 4.3-11.0 Blood erythrocytes automated count (number/volume) 4.81 10*6/uL 4.35-5.85 Venous blood hemoglobin measurement (mass/volume) 15.5 g/dL 13.3-17.7 Blood hematocrit (volume fraction) 47 % 40-54 Automated erythrocyte mean corpuscular volume 98 [foz_us] 80-99 Automated erythrocyte mean corpuscular hemoglobin (mass per erythrocyte) 32 pg 25-34 Automated erythrocyte mean corpuscular hemoglobin concentration measurement ( mass/volume) 33 g/dL 32-36 Automated erythrocyte distribution width ratio 13.7 % 10.0-14.5 Automated blood platelet count (count/volume) 292 10*3/uL 130-400 Automated blood platelet mean volume measurement 8.7 [foz_us] 7.4-10.4 Automated blood neutrophils/100 leukocytes 62 % 42-75 Automated blood lymphocytes/100 leukocytes 28 % 12-44 Blood monocytes/100 leukocytes 9 % 0-12 Automated blood eosinophils/100 leukocytes 1 % 0-10 Automated blood basophils/100 leukocytes 1 % 0-10 Blood neutrophils automated count (number/volume) 5.3 10*3 1.8-7.8 Blood lymphocytes automated count (number/volume) 2.4 10*3 1.0-4.0 Blood monocytes automated count (number/volume) 0.7 10*3 0.0-1.0 Automated eosinophil count 0.1 10*3/uL 0.0-0.3 Automated blood basophil count (count/volume) 0.1 10*3/uL 0.0-0.1 PT panel in platelet poor plasma by coagulation assay - 07/12/17 15:47 Prothrombin time (PT) in platelet poor plasma by coagulation assay 13.3 s 12.2-14.7 INR in platelet poor plasma or blood by coagulation assay 1.0 0.8-1.4 Activated partial thromboplastin time (aPTT) in platelet poor plasma bycoagulation assay - 07/12/17 15:47 Activated partial thromboplastin time (aPTT) in platelet poor plasma bycoagulation assay 29 s 24-35 Comprehensive metabolic panel - 07/12/17 15:47 Serum or plasma sodium measurement (moles/volume) 141 mmol/L 135-145 Serum or plasma potassium measurement (moles/volume) 3.5 mmol/L 3.6-5.0 Serum or plasma chloride measurement (moles/volume) 102 mmol/L 98-107 Carbon dioxide 30 mmol/L 21-32 Serum or plasma anion gap determination (moles/volume) 9 mmol/L 5-14 Serum or plasma urea nitrogen measurement (mass/volume) 16 mg/dL 7-18 Serum or plasma creatinine measurement (mass/volume) 0.81 mg/dL 0.60-1.30 Serum or plasma urea nitrogen/creatinine mass ratio 20 NRG Serum or plasma creatinine measurement with calculation of estimated glomerular filtration rate > NRG Serum or plasma glucose measurement (mass/volume) 114 mg/dL 70-105 Serum or plasma calcium measurement (mass/volume) 10.0 mg/dL 8.5-10.1 Serum or plasma total bilirubin measurement (mass/volume) 0.6 mg/dL 0.1-1.0 Serum or plasma alkaline phosphatase measurement (enzymatic activity/volume) 94 U/L 40-136 Serum or plasma aspartate aminotransferase measurement (enzymatic activity/ volume) 17 U/L 5-34 Serum or plasma alanine aminotransferase measurement (enzymatic activity/volume ) 17 U/L 0-55 Serum or plasma protein measurement (mass/volume) 8.0 g/dL 6.4-8.2 Serum or plasma albumin measurement (mass/volume) 4.4 g/dL 3.2-4.5 Magnesium - 07/12/17 15:47 Magnesium 2.3 mg/dL 1.8-2.4 Serum or plasma troponin i.cardiac measurement (mass/volume) - 07/12/17 15:47 Serum or plasma troponin i.cardiac measurement (mass/volume) < ng/ mL <0.30 Myoglobin, serum - 07/12/17 15:47 Myoglobin, serum 18.3 ng/mL 10.0-92.0 Serum or plasma troponin i.cardiac measurement (mass/volume) - 07/12/17 17:45 Serum or plasma troponin i.cardiac measurement (mass/volume) < ng/ mL <0.30 Complete blood count (CBC) with automated white blood cell (WBC) differential - 07/25/17 03:10 Blood leukocytes automated count (number/volume) 12.2 10*3/uL 4.3-11.0 Blood erythrocytes automated count (number/volume) 4.15 10*6/uL 4.35-5.85 Venous blood hemoglobin measurement (mass/volume) 13.5 g/dL 13.3-17.7 Blood hematocrit (volume fraction) 41 % 40-54 Automated erythrocyte mean corpuscular volume 98 [foz_us] 80-99 Automated erythrocyte mean corpuscular hemoglobin (mass per erythrocyte) 33 pg 25-34 Automated erythrocyte mean corpuscular hemoglobin concentration measurement ( mass/volume) 33 g/dL 32-36 Automated erythrocyte distribution width ratio 13.9 % 10.0-14.5 Automated blood platelet count (count/volume) 232 10*3/uL 130-400 Automated blood platelet mean volume measurement 8.8 [foz_us] 7.4-10.4 Automated blood neutrophils/100 leukocytes 66 % 42-75 Automated blood lymphocytes/100 leukocytes 26 % 12-44 Blood monocytes/100 leukocytes 7 % 0-12 Automated blood eosinophils/100 leukocytes 1 % 0-10 Automated blood basophils/100 leukocytes 0 % 0-10 Blood neutrophils automated count (number/volume) 8.1 10*3 1.8-7.8 Blood lymphocytes automated count (number/volume) 3.2 10*3 1.0-4.0 Blood monocytes automated count (number/volume) 0.8 10*3 0.0-1.0 Automated eosinophil count 0.1 10*3/uL 0.0-0.3 Automated blood basophil count (count/volume) 0.0 10*3/uL 0.0-0.1 PT panel in platelet poor plasma by coagulation assay - 07/25/17 03:10 Prothrombin time (PT) in platelet poor plasma by coagulation assay 12.7 s 12.2-14.7 INR in platelet poor plasma or blood by coagulation assay 0.9 0.8-1.4 Activated partial thromboplastin time (aPTT) in platelet poor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
[2017-08-01 19:32] LABS: WBC,URINE 0-2 /HPF
[2017-08-01] MEDS ORDERED: morphine INJ 4 MG/ML 1 ML (VIAL/SYRINGE) ONE (19:50)
[2017-08-01] MEDS ORDERED: NITROGLYCERIN 0.4 MG SL TABS BTL 25'S SL PRN (20:30)
[2017-08-01] MEDS: morphine INJ 4 MG/ML 1 ML (VIAL/SYRINGE) IV PRN (23:57)
[2017-08-02] VITALS: BP 148/83
[2017-08-02 04:00] VITALS: BP 160/100
[2017-08-02] MEDS: morphine INJ 4 MG/ML 1 ML (VIAL/SYRINGE) IV PRN (04:38)
[2017-08-02 05:09] LABS: BASOPHILS % (AUTO) 0 % (0-10); EOSINOPHILS # (AUTO) 0.1 10^3/uL (0.0-0.3); EOSINOPHILS % (AUTO) 2 % (0-10); LYMPHOCYTES # (AUTO) 3.2 X 10^3 (1.0-4.0); LYMPHOCYTES % (AUTO) 40 % (12-44); MEAN CORPUSCULAR HEMOGLOBIN 33 PG (25-34); MEAN CORPUSCULAR HGB CONC 34 G/DL (32-36); MEAN CORPUSCULAR VOLUME 98 FL (80-99); MONOCYTES # (AUTO) 0.7 X 10^3 (0.0-1.0); MONOCYTES % (AUTO) 8 % (0-12); NEUTROPHILS # (AUTO) 3.9 X 10^3 (1.8-7.8); NEUTROPHILS % (AUTO) 49 % (42-75); PLATELET COUNT 238 10^3/uL (130-400); RED CELL DISTRIBUTION WIDTH 13.6 % (10.0-14.5)
[2017-08-02 05:30] LABS: ALANINE AMINOTRANSFERASE 11 U/L (0-55); ALBUMIN 3.5 GM/DL (3.2-4.5); ANION GAP 12 MMOL/L (5-14); ASPARTATE AMINO TRANSFERASE 14 U/L (5-34); BILIRUBIN,TOTAL 0.3 MG/DL (0.1-1.0); BLOOD UREA NITROGEN 15 MG/DL (7-18); BUN/CREATININE RATIO 19; CARBON DIOXIDE 26 MMOL/L (21-32); CHLORIDE 106 MMOL/L (98-107); CHOLESTEROL 140 MG/DL (< 200); CREATININE SERUM 0.77 MG/DL (0.60-1.30); DIRECT LDL 77 MG/DL (1-129); GFR ESTIMATED > 60; GLUCOSE 92 MG/DL (70-105); POTASSIUM 3.2 MMOL/L (3.6-5.0); SODIUM 144 MMOL/L (135-145); TRIGLYCERIDES 137 MG/DL (<150); VLDL CHOLESTEROL 27 MG/DL (5-40)
--- NOTE | 2017-08-02 07:00 | History & Physicial (CHS) ---
HPI History of Present Illness: 62-year-old male presents to [facility] emergency department with chest pain which started during the evening the day prior. He reports the pain is fairly constant and radiates to the left neck as well as his arm. He did take nitroglycerin at home apparently 4 times with 3 times occurring in the last hour to presentation. Patient also admits that he did take aspirin on the day of admission. He does have associated shortness of breath, dizziness and sweats. Patient is a smoker and does have 2-3 pack per history per day. Patient has been seen in the emergency department recently and sent home. He does have history of cardiac catheterization in June 2017 which showed minimal nonocclusive small vessel disease. Source: patient Exam Limitations: clinical condition Date seen by provider: Aug 02, 2017 Time Seen by Provider: 07:20 Attending Physician Didier Landrum MD PCP Jessenia Curry MD Consult Date of Admission Aug 01, 2017 at 19:00 Home Medications Home Medications Reviewed patient Home Medication Reconciliation Form Allergies Coded Allergies: ibuprofen (Verified Allergy, Unknown, 04/05/15) HYPERTENSION UOY-Xckxns-Azcdgs Hx Patient Social History Alcohol Use: Denies Use Recreational Drug Use: Yes Drug of Choice: XANAX, NARCOTICS, HAS ALSO TESTED + FOR METHAMPHETAMIES Smoking Status: Current Everyday Smoker Type Used: Cigarettes 2nd Hand Smoke Exposure: Yes Recent Foreign Travel: No Contact w/other who traveled: No Recent Hopitalizations: No Recent Infectious Disease Expo: No Physical Abuse Screen: No Sexual Abuse: No Immunizations Up To Date Tetanus Booster (TDap): Less than 5yrs Date of Pneumonia Vaccine: May 26, 2017 Date of Influenza Vaccine: May 26, 2017 Family Medical History Significant Family History: Cancer Family History: Cancer 03 FATHER (PROSTATE) 03 MOTHER (BREAST CA ) 09 BROTHER (THROAT/PANCREATIC) 09 SISTER (LIVER) DEAFNESS 03 FATHER 09 BROTHER Family history: Breast disease 03 MOTHER (BREAST CA) History of - respiratory disease Prostate cancer 03 FATHER Stroke 03 MOTHER Visual impairment Review of Systems (CHC) Constitutional: see HPI Reviewed Test Results Reviewed Test Results Lab Laboratory Tests Test 08/01/17 17:50 08/01/17 19:18 08/02/17 00:20 08/02/17 04:35 Range/Units White Blood Count 8.2 8.0 4.3-11.0 10^3/uL Red Blood Count 3.96 L 4.10 L 4.35-5.85 10^6/uL Hemoglobin 13.0 L 13.4 13.3-17.7 G/DL Hematocrit 39 L 40 40-54 % Mean Corpuscular Volume 98 98 80-99 FL Mean Corpuscular Hemoglobin 33 33 25-34 PG Mean Corpuscular Hemoglobin Concent 34 34 32-36 G/DL Red Cell Distribution Width 13.6 13.6 10.0-14.5 % Platelet Count 261 238 130-400 10^3/uL Mean Platelet Volume 9.1 9.0 7.4-10.4 FL Neutrophils (%) (Auto) 66 49 42-75 % Lymphocytes (%) (Auto) 26 40 12-44 % Monocytes (%) (Auto) 7 8 0-12 % Eosinophils (%) (Auto) 1 2 0-10 % Basophils (%) (Auto) 0 0 0-10 % Neutrophils # (Auto) 5.4 3.9 1.8-7.8 X 10^3 Lymphocytes # (Auto) 2.2 3.2 1.0-4.0 X 10^3 Monocytes # (Auto) 0.6 0.7 0.0-1.0 X 10^3 Eosinophils # (Auto) 0.0 0.1 0.0-0.3 10^3/uL Basophils # (Auto) 0.0 0.0 0.0-0.1 10^3/uL Prothrombin Time 14.4 12.2-14.7 SEC INR Comment 1.1 0.8-1.4 Activated Partial Thromboplast Time 31 24-35 SEC Sodium Level 141 144 135-145 MMOL/L Potassium Level 3.1 L 3.2 L 3.6-5.0 MMOL/L Chloride Level 105 106 98-107 MMOL/L Carbon Dioxide Level 23 26 21-32 MMOL/L Anion Gap 13 12 5-14 MMOL/L Blood Urea Nitrogen 13 15 7-18 MG/DL Creatinine 0.74 0.77 0.60-1.30 MG/DL Estimat Glomerular Filtration Rate > 60 > 60 BUN/Creatinine Ratio 18 19 Glucose Level 122 H 92 70-105 MG/DL Calcium Level 8.9 9.0 8.5-10.1 MG/DL Magnesium Level 1.8 1.8-2.4 MG/DL Total Bilirubin 0.4 0.3 0.1-1.0 MG/DL Aspartate Amino Transf (AST/SGOT) 17 14 5-34 U/L Alanine Aminotransferase (ALT/SGPT) 12 11 0-55 U/L Alkaline Phosphatase 73 78 40-136 U/L Total Creatine Kinase 199 30-200 U/L Creatine Kinase MB 1.0 <6.6 NG/ML Troponin I < 0.30 < 0.30 <0.30 NG/ML B-Type Natriuretic Peptide 36.0 <100.0 PG/ML Total Protein 6.7 6.0 L 6.4-8.2 GM/DL Albumin 3.9 3.5 3.2-4.5 GM/DL Amylase Level 43 25-125 U/L Lipase 16 8-78 U/L Serum Alcohol < 10 <10 MG/DL Urine Color YELLOW Urine Clarity CLEAR Urine pH 6.5 5-9 Urine Specific [place] 1.010 L 1.016-1.022 Urine Protein NEGATIVE NEGATIVE Urine Glucose (UA) NEGATIVE NEGATIVE Urine Ketones NEGATIVE NEGATIVE Urine Nitrite NEGATIVE NEGATIVE Urine Bilirubin NEGATIVE NEGATIVE Urine Urobilinogen 1 NORMAL MG/DL Urine Leukocyte Esterase 1+ H NEGATIVE Urine RBC (Auto) NEGATIVE NEGATIVE Urine RBC NONE /HPF Urine WBC 0-2 /HPF Urine Crystals NONE /LPF Urine Bacteria NONE /HPF Urine Casts NONE /LPF Urine Mucus SMALL H /LPF Urine Culture Indicated NO Urine Opiates Screen POSITIVE H NEGATIVE Urine Oxycodone Screen NEGATIVE NEGATIVE Urine Methadone Screen NEGATIVE NEGATIVE Urine Propoxyphene Screen NEGATIVE NEGATIVE Urine Barbiturates Screen NEGATIVE NEGATIVE Ur Tricyclic Antidepressants Screen NEGATIVE NEGATIVE Urine Phencyclidine Screen NEGATIVE NEGATIVE Urine Amphetamines Screen NEGATIVE NEGATIVE Urine Methamphetamines Screen NEGATIVE NEGATIVE Urine Benzodiazepines Screen NEGATIVE NEGATIVE Urine Cocaine Screen NEGATIVE NEGATIVE Urine Cannabinoids Screen NEGATIVE NEGATIVE Myoglobin 27.0 10.0-92.0 NG/ML Triglycerides Level 137 <150 MG/DL Cholesterol Level 140 < 200 MG/DL LDL Cholesterol Direct 77 1-129 MG/DL VLDL Cholesterol 27 5-40 MG/DL HDL Cholesterol 39 L 40-60 MG/DL Radiology NAME: LUZ ELENA CALDWELL [place] REC#: [id number] PT STATUS: REG ER : 1955 PHYSICIAN: TIMI MATTSON DO ADMIT DATE: 08/01/17/ER Signed Date of Exam: 08/01/17 CHEST 1 VIEW, AP/PA ONLY INDICATION: Chest pain. Compared 07/25/2017 FINDINGS: The heart size stable. No gross overdistention of the vascularity. Changes of COPD are chronic with heterogeneous air trapping, lucency greatest at the right upper lobe unchanged. Predominantly basilar interstitial opacity unchanged. No acute pathology. IMPRESSION: Stable chronic findings Dictated by: Dictated on workstation # [id number] Dict: 08/01/171833 Trans: 08/01/171915 Interpreted by: LOUIE ORDONEZ Electronically signed by: LOUIE ORDONEZ 08/01/171915 Physical Exam-(CHC) Physical Exam Vital Signs VS - Last 72 Hours, by Label 08/01/17 08/01/17 08/01/17 08/01/17 18:00 18:34 19:33 19:45 Temp 98.2 98.2 96.9 Pulse 79 68 85 61 75 85 Resp 15 15 20 B/P (MAP) 133/83 (100) 128/77 (94) 139/85 (103) 129/76 (93) 110/79 (89) Pulse Ox 96 96 O2 Delivery Room Air 08/01/17 08/01/17 08/01/17 08/01/17 19:53 20:00 20:15 20:30 Pulse 59 66 62 74 B/P (MAP) 143/84 (103) 140/84 (102) 156/103 (120) O2 Delivery Room Air Room Air Room Air 08/01/17 08/01/17 08/01/17 08/01/17 20:45 21:00 21:00 21:15 Pulse 75 67 74 B/P (MAP) 160/105 (123) 140/85 (103) 141/73 (95) Pulse Ox 97 O2 Delivery Room Air Room Air Room Air Room Air 08/01/17 08/01/17 08/01/17 08/02/17 21:53 22:00 23:00 00:00 Pulse 78 69 B/P (MAP) 147/84 (105) 131/71 (91) Pulse Ox 97 97 O2 Delivery Room Air Room Air Room Air Room Air 08/02/17 08/02/17 08/02/17 08/02/17 00:00 01:00 04:00 04:00 Pulse 66 64 61 B/P (MAP) 148/83 (104) 160/100 (120) Pulse Ox 97 O2 Delivery Room Air Room Air Room Air 08/02/17 08/02/17 07:00 08:00 Pulse 59 54 B/P (MAP) 160/87 (111) O2 Delivery Room Air Capillary Refill : Less Than 3 Seconds General Appearance: no apparent distress HEENT: normal ENT inspection Neck: supple Respiratory: lungs clear Cardiovascular: regular rate, rhythm Gastrointestinal: normal bowel sounds, soft Rectal: deferred Extremities: normal capillary refill Neurologic/Psychiatric: alert, oriented x 3 Skin: normal color Clinical Quality Measures AMI/AHF: ASA po Prior to arrival: Yes DVT/VTE Risk/Contraindication: Risk Factor Score Per Nursin RFS Level Per Nursing on Admit: 3=High Assessment/Plan Assessment/Plan Admission Dx 1. Chest pain 2. History of minimal coronary artery disease 3. Tobaccoism Plan 1. Chest pain -Admit patient to cardiac stepdown -Cardiology consultation -Patient has been started on Plavix through ED at 300 mg and will be started on 75 mg daily 2. History of minimal coronary artery disease -Recent cardiac catheter June 2017 3. Tobaccoism DIDIER LANDRUM MD Aug 02, 2017 07:00
[2017-08-02 08:00] VITALS: BP 160/87
[2017-08-02] MEDS ORDERED: KCL 20 MEQ TAB (K-DUR) PO NR (08:15)
[2017-08-02] MEDS ORDERED: ASPIRIN E.C. 325 MG (ECOTRIN) TABLET PO SCH (09:00)
[2017-08-02] MEDS ORDERED: CLOPIDOGREL 75 MG (PLAVIX) TABLET PO SCH (09:00)
--- NOTE | 2017-08-02 12:00 | Consultation-Cardiology ---
HPI-Cardiology Cardiology Consultation: Date of Consultation 08/02/17 Date of Admission Attending Physician Didier Bajwa MD Admitting Physician Jessenia Curry MD Consulting Physician René RAMIREZ MD HPI: Time Seen by Provider: 11:57 Chief Complaint: chest pain this is a 62-year-old gentleman who has history of active smoking. He has previous history of recurrent chest pain. Coronary angiography was performed by Dr. Vargas in June 2017 which showed mild distal disease. He presents with recurrent chest pain. Patient denies any shortness of breath, syncope, near-syncope, palpitation, lower extremity swelling. Chest pain responded to morphine and has had no further chest pain. Chest pain was moderate in intensity with no significant radiation. There were no significant exacerbating or relieving factors. Review of Systems-Cardiology Review of Systems Constitutional: No As described under HPI, No no symptoms reported, No chills, No fever, No lightheadedness, No malaise, No tiredness, No weight loss, No weight gain, No other Eyes: No As described under HPI, No no symptoms reported, No blindness, No blurred vision, No contact lenses, No drainage, No decreased acuity, No foreign body sensation, No glasses, No inflammation, No pain, No photophobia, No previous injury, No shadows, No tunnel vision, No other, No vision change Ears/Nose/Throat: No As described under HPI, No no symptoms reported, No chronic hearing loss, No epistaxis, No ear discharge, No ear pain, No loose teeth, No mouth pain, No mouth swelling, No nasal drainage, No nose pain, No recent hearing loss, No throat pain, No throat swelling, No ulcerations, No other Respiratory: No no symptoms reported, No As described under HPI, No cough, No orthopnea, No shortness of breath, No SOB with excertion, No SOB at rest, No stridor, No wheezing, No other Cardiovascular: chest pain Gastrointestinal: No no symptoms reported, No As described under HPI, No abdomen distended, No abdominal pain, No blood streaked bowels, No constipation , No diarrhea, No difficulty swallowing, No nausea, No poor appetite, No poor fluid intake, No rectal bleeding, No vomiting, No other, No nausea/vomiting/ diarrhea, No stool coloration changes Genitourinary: No no symptoms reported, No As described under HPI, No burning, No dysuria, No discharge, No frequency, No flank pain, No hematuria, No incontinence, No pain, No urgency, No other, No urine frequency changes, No urine coloration changes Musculoskeletal: No no symptoms reported, No As describe under HPI, No back pain, No gout, No joint pain, No joint swelling, No muscle pain, No muscle stiffness, No neck pain, No other Skin: No no symptoms reported, No As described under HPI, No change in color, No change in hair/nails, No dryness, No lesions, No lumps, No rash, No other, No skin related problems, No ulcerations, No rash on exposed areas, No ulcerations on exposed areas Psychiatric/Neurological: No no symptoms reported, No As described under HPI, No anxiety, No depression, No emotional problems, No headache, No numbness, No pre-existing deficit, No seizure, No tingling, No tremors, No weakness, No other , No focal weakness, No syncope Hematologic: No no symptoms reported, No As described under HPI, No anemia, No blood clots, No easy bleeding, No easy bruising, No swollen glands, No other, No bleeding abnormalities FRR-[id number]-Rzugpp Hx Patient Social History Alcohol Use: Denies Use Recreational Drug Use: Yes Drug of Choice: XANAX, NARCOTICS, HAS ALSO TESTED + FOR METHAMPHETAMIES Smoking Status: Current Everyday Smoker Type Used: Cigarettes 2nd Hand Smoke Exposure: Yes Recent Foreign Travel: No Recent Infectious Disease Expo: No Hospitalization with Isolation: Denies Physical Abuse Screen: No Sexual Abuse: No Immunizations Up To Date Tetanus Booster (TDap): Less than 5yrs Date of Pneumonia Vaccine: May 26, 2017 Date of Influenza Vaccine: May 26, 2017 Past Medical History PMH As described under Assessment. Family Medical History Family History: Cancer 03 FATHER (PROSTATE) 03 MOTHER (BREAST CA ) 09 BROTHER (THROAT/PANCREATIC) 09 SISTER (LIVER) DEAFNESS 03 FATHER 09 BROTHER Family history: Breast disease 03 MOTHER (BREAST CA) History of - respiratory disease Prostate cancer 03 FATHER Stroke 03 MOTHER Visual impairment Allergies and Home Medications Allergies Coded Allergies: ibuprofen (Verified Allergy, Unknown, 04/05/15) HYPERTENSION Home Medications Aspirin 81 Mg Tablet.dr, 81 MG PO HS, (Reported) Atorvastatin Calcium 10 Mg Tablet, 10 MG PO DAILY, #30 Ref 4 Prescribed by: KEIRY VARGAS on 06/29/17 1014 Cyclobenzaprine HCl 10 Mg Tablet, (Reported) Isosorbide Mononitrate 30 Mg Tab.er.24h, (Reported) Metoprolol Succinate 25 Mg Tab.er.24h, (Reported) Nitroglycerin 0.4 Mg Tab.subl, (Reported) Tramadol HCl 50 Mg Tablet, (Reported) Physical Exam-Cardiology Physical Exam Vital Signs/I&O Vital Sign - Last 12Hours 08/02/17 08/02/17 08/02/17 08/02/17 00:00 00:00 01:00 04:00 Pulse 66 64 B/P (MAP) 148/83 (104) Pulse Ox 97 97 O2 Delivery Room Air Room Air Room Air 08/02/17 08/02/17 08/02/17 04:00 07:00 08:00 Pulse 61 59 54 B/P (MAP) 160/100 (120) 160/87 (111) O2 Delivery Room Air Room Air Intake and Output 08/02/17 00:00 Intake Total 300 ml Balance 300 ml Capillary Refill : Less Than 3 Seconds Constitutional: No appears stated age, No AAO x 3, No apparent distress, No PERRL, No well-developed, No well-nourished, No other HEENT: No PERRL, No normal ENT inspection, No TMs normal, No pharynx normal, No scleral icterus (R), No scleral icterus (L), No pale conjunctivae (R), No pale conjunctivae (L), No photophobia, No TM abnormal (R), No TM abnormal (L), No pharyngeal erythema, No tonsillar exudate, No other, No discharge, No EOMI, No hearing is well preserved, No hard of hearing, No oral hygience is good, No ulceration, No xanthelasmas are seen Neck: No non-tender, No full range of motion, No supple, No normal inspection, No carotid bruit, No limited range of motion, No lymphadenopathy (R), No lymphadenopathy (L), No tender lateral, No tender midline, No thyromegaly, No other, No carotid pulses are 2 + bilaterally, No with good upstrokes Respiratory: No accessory muscle use, No respiratory distress, No chest tender , No chest expansion is symmetric, No chest is bilaterally symmetric, No lungs clear to percussion, No lungs clear to auscultation, No crackles, No rhonchi, No rales, No stridor, No wheezing, No pleural rub, No other Cardiovascular: No regular rate-rhythm, No irregularly irregular, No extra beats, No parasternal heave is noted, No JVD, No edema, No bradycardia, No tachycardia, No point of maximal impulse, No cardiac thrills are palpable, No S1 and S2, No gallop/S3, No gallop/S4, No diastolic murmur, No systolic murmur, No friction rub, No click, No other Gastrointestinal: No tender, No soft, No round, No distended, No pulsatile mass , No organomegaly, No guarding, No rebound, No tenderness, No hernia, No mass, No audible bowel sounds, No abnormal bowel sounds, No abdominal bruits, No spleenomegaly, No other Rectal: deferred Extremities: No normal range of motion, No non-tender, No normal inspection, No pedal edema, No calf tenderness, No normal capillary refill, No pelvis stable , No calf tenderness, No inflammation, No pedal edema, No slow capillary refill , No swelling, No other, No abrasion, No clubbing, No cyanosis, No ecchymosis, No laceration, No no lower extremity edema bilateral, No significant edema, No tenderness, No wound Neurologic/Psychiatric: No java software developer II-XII nml as tested, No no motor/sensory deficits, No alert, No normal mood/affect, No oriented x 3, No abnormal cerebellar tests, No abnormal java software developer II-XII, No abnormal gait, No aphasia, No EOM palsy, No facial droop, No motor weakness, No sensory deficit, No depressed affect, No disoriented x 3, No other, No grossly intact, No power is 5/5 both on sides Skin: No normal color, No warm/dry, No cyanosis, No cool, No diaphoresis, No damp, No ecchymosis, No jaundice, No mottled, No pallor, No rash, No tattoos/ piercings, No ulcerations, No rash on exposed areas, No ulcerations on exposed areas, No other Lymphatic: No no adenopathy, No axilla node tender (R), No axilla node tender ( L), No inguinal node tender (R), No inguinal node tender (L), No other Data Review Labs Laboratory Tests 08/01/17 17:50: White Blood Count 8.2, Red Blood Count 3.96L, Hemoglobin 13.0L, Hematocrit 39L, Mean Corpuscular Volume 98, Mean Corpuscular Hemoglobin 33, Mean Corpuscular Hemoglobin Concent 34, Red Cell Distribution Width 13.6, Platelet Count 261, Mean Platelet Volume 9.1, Neutrophils (%) (Auto) 66, Lymphocytes (%) (Auto) 26, Monocytes (%) (Auto) 7, Eosinophils (%) (Auto) 1, Basophils (%) (Auto) 0, Neutrophils # (Auto) 5.4, Lymphocytes # (Auto) 2.2, Monocytes # (Auto) 0.6, Eosinophils # (Auto) 0.0, Basophils # (Auto) 0.0, Prothrombin Time 14.4, INR Comment 1.1, Activated Partial Thromboplast Time 31, Sodium Level 141, Potassium Level 3.1L, Chloride Level 105, Carbon Dioxide Level 23, Anion Gap 13 , Blood Urea Nitrogen 13, Creatinine 0.74, Estimat Glomerular Filtration Rate > 60, BUN/Creatinine Ratio 18, Glucose Level 122H, Calcium Level 8.9, Magnesium Level 1.8, Total Bilirubin 0.4, Aspartate Amino Transf (AST/SGOT) 17, Alanine Aminotransferase (ALT/SGPT) 12, Alkaline Phosphatase 73, Total Creatine Kinase 199, Creatine Kinase MB 1.0, Troponin I < 0.30, B-Type Natriuretic Peptide 36.0 , Total Protein 6.7, Albumin 3.9, Amylase Level 43, Lipase 16, Serum Alcohol < 10 08/01/17 19:18: Urine Color YELLOW, Urine Clarity CLEAR, Urine pH 6.5, Urine Specific [place] 1.010L, Urine Protein NEGATIVE, Urine Glucose (UA) NEGATIVE, Urine Ketones NEGATIVE, Urine Nitrite NEGATIVE, Urine Bilirubin NEGATIVE, Urine Urobilinogen 1 , Urine Leukocyte Esterase 1+H, Urine RBC (Auto) NEGATIVE, Urine RBC NONE, Urine WBC 0-2, Urine Crystals NONE, Urine Bacteria NONE, Urine Casts NONE, Urine Mucus SMALLH, Urine Culture Indicated NO, Urine Opiates Screen POSITIVEH, Urine Oxycodone Screen NEGATIVE, Urine Methadone Screen NEGATIVE, Urine Propoxyphene Screen NEGATIVE, Urine Barbiturates Screen NEGATIVE, Ur Tricyclic Antidepressants Screen NEGATIVE, Urine Phencyclidine Screen NEGATIVE, Urine Amphetamines Screen NEGATIVE, Urine Methamphetamines Screen NEGATIVE, Urine Benzodiazepines Screen NEGATIVE, Urine Cocaine Screen NEGATIVE, Urine Cannabinoids Screen NEGATIVE 08/02/17 00:20: Troponin I < 0.30, Myoglobin 27.0 08/02/17 04:35: White Blood Count 8.0, Red Blood Count 4.10L, Hemoglobin 13.4, Hematocrit 40, Mean Corpuscular Volume 98, Mean Corpuscular Hemoglobin 33, Mean Corpuscular Hemoglobin Concent 34, Red Cell Distribution Width 13.6, Platelet Count 238, Mean Platelet Volume 9.0, Neutrophils (%) (Auto) 49, Lymphocytes (%) (Auto) 40, Monocytes (%) (Auto) 8, Eosinophils (%) (Auto) 2, Basophils (%) (Auto) 0, Neutrophils # (Auto) 3.9, Lymphocytes # (Auto) 3.2, Monocytes # (Auto) 0.7, Eosinophils # (Auto) 0.1, Basophils # (Auto) 0.0, Sodium Level 144, Potassium Level 3.2L, Chloride Level 106, Carbon Dioxide Level 26, Anion Gap 12, Blood Urea Nitrogen 15, Creatinine 0.77, Estimat Glomerular Filtration Rate > 60, BUN/ Creatinine Ratio 19, Glucose Level 92, Calcium Level 9.0, Total Bilirubin 0.3, Aspartate Amino Transf (AST/SGOT) 14, Alanine Aminotransferase (ALT/SGPT) 11, Alkaline Phosphatase 78, Total Protein 6.0L, Albumin 3.5, Triglycerides Level 137, Cholesterol Level 140, LDL Cholesterol Direct 77, VLDL Cholesterol 27, HDL Cholesterol 39L ECG Impression ECG Initial ECG Rhythm: Normal Sinus Initial ECG Impression: Nonspecific Changes A/P-Cardiology Assessment/Admission Diagnosis chest pain, Mild CAD, Active smoking. Plan acute coronary syndrome has been ruled out with negative serial troponin. EKG does not have any significant ST-T wave abnormalities. Patient had a recent coronary angiography which showed mild distal disease. Patient was started on Plavix yesterday. I will discontinue further Plavix. Continue aspirin. Patient can be discharged from a cardiology perspective and follow-up with Dr. Vargas in the next week. Smoking cessation was strongly recommended. Thank you for your consultation. Please call me if you have any questions. M. Champ Khalid, MD, FACP, FACC, FSCAI, FHRS, CCDS Interventional Cardiology Cardiac Electrophysiology Vascular Medicine and Endovascular Interventions Clinical Quality Measures AMI/AHF: ASA po Prior to arrival: Yes DVT/VTE Risk/Contraindication: Risk Factor Score Per Nursin RFS Level Per Nursing on Admit: 3=High René RAMIREZ MD Aug 02, 2017 12:00 pm
[2017-08-02] MEDS ORDERED: ATOR10TA66 PO (12:37)
[2017-08-02 14:19] VITALS: BP 160/87
== END 2017-08-02 12:15 | disposition home or self-care (01) ==
LOC: EDUNIT# 17:48 → ER 17:50 → UNDOADMOB 19:00 → ICU 19:00 → UNDODISOB 08-02 14:05
PROVIDERS: ADMIT Family Medicine; ATTEND Family Medicine
DX: R07.9 Chest pain, unspecified (principal); I25.10 Atherosclerotic heart disease of native coronary artery without angina pectoris; I10 Essential (primary) hypertension; E78.5 Hyperlipidemia, unspecified; F17.210 Nicotine dependence, cigarettes, uncomplicated; K21.9 Gastro-esophageal reflux disease without esophagitis; G25.81 Restless legs syndrome; F41.9 Anxiety disorder, unspecified; F32.9 Major depressive disorder, single episode, unspecified; Z79.82 Long term (current) use of aspirin; Z79.899 Other long term (current) drug therapy
CPT/HCPCS: 36415; 71010; 80053; 80061; 80306; 80320; 81000; 82150; 82550; 82553; 83690; 83735; 83874; 83880; 84484; 85025; 85610; 85730; 93005; 96374; 96375

== ENCOUNTER 2017-08-07 13:22 | Emergency (ER) | payer MEDICARE ==
[~2017-08-07] VITALS: Ht 167.6 cm; Wt 60.8 kg
[~2017-08-07 13:22] MED LIST changes: +ATOR10TA66 PO
--- OUTSIDE RECORDS SUMMARY | 2017-08-07 13:28 | XMS REPORT | Clinical Summary ---
Author Author [facility] Organization [facility] Address Unknown Phone Unavailable Care Team Providers Care Fashion Director Party Plan Sales Name Role Phone PCP Unavailable Source Comments Some departments are not documenting in the electronic medical record. If you do not see the information that you expected, contact Release of Information in the Health Information Management department at [phone] for further assistance in locating additional records.[facility] Allergies Not on File Current [...]
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
[2017-08-07] MEDS ORDERED: ORPHENADRINE 60 MG/2 ML (NORFLEX) AMP IM STA (14:24)
--- NOTE | 2017-08-07 14:29 | ED Back Pain ---
General Chief Complaint: Back Problems Stated Complaint: LOWER BACK PAIN Nursing Triage Note: AMB TO ED C/O LOW BACK PAIN PMH OF CHRONIC PAIN MEDS FOR PAIN NOT HELPING. Nursing Sepsis Screen: No Definite Risk History of Present Illness Time Seen by Provider: 14:15 Initial Comments 62-year-old male reports increased back and leg pain over the last 2 days. He reports that he is nausea after taking his tramadol and cyclobenzaprine. He reports not taking either of these medications for the last 2 days. He had 2 previous spine surgeries. He had no new injuries. Denies bowel or bladder changes. Per [facility], he last filled Tramadol 50 mg #56 on 07/07/17 and prior to that 08/02 Location: [facility] Spine Timing/Duration: 2-3 Days Associated Symptoms: muscle spasms, No numbness in legs/feet, tingling in legs/ feet, lower back pain, No loss of bladder control, No loss of bowel control Allergies and Home Medications Allergies Coded Allergies: ibuprofen (Verified Allergy, Unknown, 04/05/15) HYPERTENSION Home Medications Aspirin 81 Mg Tablet.dr, 81 MG PO HS, (Reported) Atorvastatin Calcium 10 Mg Tablet, 10 MG PO HS, (Reported) Carisoprodol 250 Mg Tablet, 250 MG PO Q8H PRN for SPASMS, #15 Ref 0 Prescribed by: FRAN MORFIN on 08/07/17 1646 Cyclobenzaprine HCl 10 Mg Tablet, 10 MG PO TID PRN for MUSCLE SPASMS, (Reported) Isosorbide Mononitrate 30 Mg Tab.er.24h, 30 MG PO DAILY, (Reported) Metoprolol Succinate 25 Mg Tab.er.24h, 25 MG PO DAILY, (Reported) Nitroglycerin 0.4 Mg Tab.subl, 0.4 MG SL UD PRN for CHEST PAIN, (Reported) Prednisone 10 Mg Tab.ds.pk, 10 MG PO UD, #1 Ref 0 Prescribed by: FRAN MORFIN on 08/07/17 1651 Tramadol HCl 50 Mg Tablet, 50 MG PO BID PRN for PAIN-MODERATE, (Reported) Constitutional: no symptoms reported, see HPI Musculoskeletal: see HPI, back pain All Other Systems Reviewed Negative Unless Noted: Yes Past Ofujkqa-Tnchjs-Wbwckf Hx Patient Social History Alcohol Use: Denies Use Recreational Drug Use: Yes Drug of Choice: XANAX, NARCOTICS, HAS ALSO TESTED + FOR METHAMPHETAMIES Type Used: Cigarettes 2nd Hand Smoke Exposure: Yes Recent Foreign Travel: No Contact w/Someone Who Travel: No Recent Infectious Disease Expo: No Recent Hopitalizations: No Immunizations Up To Date Tetanus Booster (TDap): Less than 5yrs PED Vaccines UTD: No Date of Pneumonia Vaccine: May 26, 2017 Date of Influenza Vaccine: May 26, 2017 Seasonal Allergies Seasonal Allergies: No Surgeries History of Surgeries: Yes Surgeries: Appendectomy, Ear Surgery, Gallbladder, Orthopedic Respiratory History of Respiratory Disorde: Yes (PER OLD RECORDS, PT HAS COPD, BUT PT DENIES) Respiratory Disorders: Chronic Bronchitis, COPD, Emphysema Cardiovascular History of Cardiac Disorders: Yes Cardiac Disorders: Coronary Artery Disease, High Cholesterol, Hypertension Neurological History of Neurological Disord: Yes (RESTLESS LEG SYNDROME) Reproductive System Hx Reproductive Disorders: No Sexually Transmitted Disease: No HIV/AIDS: No Genitourinary History of Genitourinary Disor: No Gastrointestinal History of Gastrointestinal Di: Yes (CHRONIC DYSPHAGIA AND HOARSENESS; ESOPHAGEAL STRICTURE) Gastrointestinal Disorders: Gastroesophageal Reflux Musculoskeletal History of Musculoskeletal Dis: Yes (C2-C6 FUSION NECK,ROTATOR CUFF REPAIR; CHRONIC NECK AND BACK PAIN ) Musculoskeletal Disorders: Chronic Back Pain Endocrine History of Endocrine Disorders: No HEENT History of HEENT Disorders: Yes (POOR DENTITION) Hearing Impairment: Hard of Hearing Cancer History of Cancer: Yes Cancer: Skin Did You Recieve Any Treatments: Yes Type of Tx Receive: Surgical Intervention Psychosocial History of Psychiatric Problem: Yes Behavioral Health Disorders: Anxiety, Suicide Attempts, Depression Integumentary History of Skin or Integumenta: No Blood Transfusions History of Blood Disorders: No Adverse Reaction to a Blood Tr: No Reviewed Nursing Assessment Reviewed/Agree w Nursing PMH: Yes Family Medical History Significant Family History: Cancer Family Medial History: Cancer 03 FATHER (PROSTATE) 03 MOTHER (BREAST CA ) 09 BROTHER (THROAT/PANCREATIC) 09 SISTER (LIVER) DEAFNESS 03 FATHER 09 BROTHER Family history: Breast disease 03 MOTHER (BREAST CA) History of - respiratory disease Prostate cancer 03 FATHER Stroke 03 MOTHER Visual impairment Physical Exam Vital Signs Vital Sign - Last 12Hours 08/07/17 13:39 Temp 97.5 Pulse 94 Resp 18 B/P (MAP) 137/98 (111) Pulse Ox 98 Capillary Refill : Less Than 3 Seconds General Appearance: No Apparent Distress, WD/WN Neck: Full Range of Motion, Normal Inspection, Non Tender, Supple Cardiovascular: Regular Rate, Rhythm, No Edema Respiratory: Chest Non Tender, Lungs Clear Gastrointestinal: Normal Bowel Sounds, Non Tender, Soft Back: Normal Inspection, Decreased Range of Motion, Muscle Spasm, Vertebral Tenderness, Other (LOM lumbar spine secondary to pain. Power V/V L4-S1. Neurovascular status intact bilateral lower extremities.) Extremity: Normal Capillary Refill, Normal Inspection, Normal Range of Motion, Non Tender, No Calf Tenderness, No Pedal Edema Neurologic/Psychiatric: Alert, Oriented x3, No Motor/Sensory Deficits Skin: Normal Color, Warm/Dry Progress/Results/Core Measures Results/Orders Lab Results Laboratory Tests Test 08/07/17 14:30 Range/Units Urine Color YELLOW Urine Clarity CLEAR Urine pH 7 5-9 Urine Specific [place] 1.010 L 1.016-1.022 Urine Protein NEGATIVE NEGATIVE Urine Glucose (UA) NEGATIVE NEGATIVE Urine Ketones NEGATIVE NEGATIVE Urine Nitrite NEGATIVE NEGATIVE Urine Bilirubin NEGATIVE NEGATIVE Urine Urobilinogen NORMAL NORMAL MG/DL Urine Leukocyte Esterase NEGATIVE NEGATIVE Urine RBC (Auto) NEGATIVE NEGATIVE Urine RBC NONE /HPF Urine WBC NONE /HPF Urine Squamous Epithelial Cells 2-5 /HPF Urine Crystals NONE /LPF Urine Bacteria NEGATIVE /HPF Urine Casts NONE /LPF Urine Mucus NEGATIVE /LPF Urine Culture Indicated NO Urine Opiates Screen POSITIVE H NEGATIVE Urine Oxycodone Screen NEGATIVE NEGATIVE Urine Methadone Screen NEGATIVE NEGATIVE Urine Propoxyphene Screen NEGATIVE NEGATIVE Urine Barbiturates Screen NEGATIVE NEGATIVE Ur Tricyclic Antidepressants Screen NEGATIVE NEGATIVE Urine Phencyclidine Screen NEGATIVE NEGATIVE Urine Amphetamines Screen NEGATIVE NEGATIVE Urine Methamphetamines Screen NEGATIVE NEGATIVE Urine Benzodiazepines Screen POSITIVE H NEGATIVE Urine Cocaine Screen NEGATIVE NEGATIVE Urine Cannabinoids Screen NEGATIVE NEGATIVE My Orders Orders - FRAN MORFIN Ua Culture If Indicated (08/07/17 14:24) Drug Screen Stat (Urine) (08/07/17 14:24) Orphenadrine Injection (Norflex Injectio (08/07/17 14:24) Acetaminophen Tablet/Caplet (Tylenol T (08/07/17 16:05) Vital Signs/I&O Vital Sign - Last 12Hours 08/07/17 08/07/17 13:39 16:58 Temp 97.5 97.5 Pulse 94 94 Resp 18 18 B/P (MAP) 137/98 (111) Pulse Ox 98 98 Blood Pressure Mean: 111 Progress Note : Time: 14:15 Progress Note Initial evaluation completed. Recommended Norflex injection, UA and urine drug screen. 1500 patient denies using pain medication besides tramadol and cyclobenzaprine, yet benzodiazepines and opiates + on UDS. Discussed with patient. 1600 Tylenol 650 mg po for pain. 1630 discharge planning discussed with the patient, recommended he seek medical care from a pain specialist. Will use Soma for muscle relaxants at home since the cyclobenzaprine is not helping. Return precautions discussed with patient. All questions answered. Departure Impression Impression: Primary Impression: Lumbar radiculopathy Additional Impression: Back pain Qualified Codes: M54.42 - Lumbago with sciatica, left side; M54.41 - Lumbago with sciatica, right side; G89.29 - Other chronic pain Disposition: HOME, SELF-CARE Condition: Stable Departure-Patient Inst. Decision time for Depature: 16:20 Referrals: ARIADNA ALAS MD (PCP/Family) Primary Care Physician Patient Instructions: Low Back Pain (DC), Radiculopathy (DC) Add. Discharge Instructions: Consider scheduling with pain management at [place] [address] State: call [phone]. Follow-up with Dr. Alas after the holidays. Ice or heat to low back 20 min every 2 hours Take medication as prescribed, use Tylenol 650 mg every 6 hours for pain. Return to emergency department if changes in bowel or bladder habits, new injuries or problems. All discharge instructions reviewed with patient and/or family. Voiced understanding. Scripts Prednisone (Prednisone) 10 Mg Tab.ds.pk 10 MG PO UD, #1 PKG 0 Refills Prov: FRAN MORFIN 08/07/17 Carisoprodol (Soma) 250 Mg Tablet 250 MG PO Q8H Y for SPASMS, #15 TAB 0 Refills Prov: FRAN MORFIN 08/07/17 Copy Copies To 1: ARIADNA ALAS MD, AMY ARNP Aug 07, 2017 14:29
[2017-08-07 14:39] LABS: BILIRUBIN,URINE NEGATIVE (NEGATIVE); KETONES,URINE NEGATIVE (NEGATIVE); LEUKOCYTE ESTERASE ,URINE NEGATIVE (NEGATIVE); NITRITE,URINE NEGATIVE (NEGATIVE); PH,URINE 7 (5-9); PROTEIN,URINE NEGATIVE (NEGATIVE); UROBILINOGEN,URINE NORMAL (NORMAL)
[2017-08-07] MEDS ORDERED: ACETAMINOPHEN 325 MG TABLET/CAPLET (TYLENOL) PO STA (16:05)
[2017-08-07] MEDS ORDERED: CARI250T PO (16:46)
[2017-08-07] MEDS ORDERED: PRED10TA22 PO (16:51)
[2017-08-07 16:58] VITALS: BP 137/98
== END 2017-08-07 17:00 | disposition home or self-care (01) ==
LOC: EDUNIT# 13:22 → ER 13:24
DX: M54.16 Radiculopathy, lumbar region (principal); J43.9 Emphysema, unspecified; I25.10 Atherosclerotic heart disease of native coronary artery without angina pectoris; E78.00 Pure hypercholesterolemia, unspecified; I10 Essential (primary) hypertension; K21.9 Gastro-esophageal reflux disease without esophagitis; F41.9 Anxiety disorder, unspecified; F32.9 Major depressive disorder, single episode, unspecified; Z80.3 Family history of malignant neoplasm of breast; Z80.0 Family history of malignant neoplasm of digestive organs; Z80.59 Family history of malignant neoplasm of other urinary tract organ; Z79.82 Long term (current) use of aspirin; Z87.891 Personal history of nicotine dependence; Z90.79 Acquired absence of other genital organ(s)
CPT/HCPCS: 80306; 81000; 99283

== ENCOUNTER 2017-08-29 12:26 | Emergency (ER) | payer MEDICARE ==
[~2017-08-29] VITALS: Ht 165.1 cm; Wt 81.6 kg
[~2017-08-29 12:26] MED LIST changes: +CARI250T PO; -HYDR-3812 PO; +PRED10TA22 PO
--- OUTSIDE RECORDS SUMMARY | 2017-08-29 12:30 | XMS REPORT | Clinical Summary ---
Author Author [facility] Organization [facility] Address Unknown Phone Unavailable Care Team Providers Care Plug Shaper Hand Name Role Phone PCP Unavailable Source Comments Some departments are not documenting in the electronic medical record. If you do not see the information that you expected, contact Release of Information in the Health Information Management department at [phone] for further assistance in locating additional records.[facility] Allergies Not on File Current Medications Not [...]
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
[2017-08-29] MEDS ORDERED: KETOROLAC 30 MG/ML VIAL IVP ONE (13:30)
--- NOTE | 2017-08-29 13:33 | ED Fall/Injury ---
General Chief Complaint: Trauma-Non Activation Stated Complaint: BACK PAIN FROM FALL Nursing Triage Note: Patient advises he fell at approximately 2200 last night on ice. He advises blurred vision since the incident as well as neck and back pain that has become progressively worse. Source: patient Exam Limitations: no limitations History of Present Illness Time seen by provider: 13:20 Initial Comments Patient presents to ER by private conveyance with chief complaint that last night about 10:30 he was walking through the grass on some ice and he slipped and fell on the back of his head. He did not lose consciousness. He has a history of 2 fusions in his neck as well as some back surgeries and he is having increased amount of pain in his neck without any radiation anywhere as well as pain in his lumbar spine feels like an ice pick, sharp pain that radiates down either buttock and both legs to the level of his ankles. He's had no weakness, further falls, numbness, tingling, incontinence of urine or bowels , urinary hesitancy acutely for symptoms with his upper extremities. He is having no blindness, double vision, blurry vision. He has taken his tramadol that he is prescribed for history and additional back pain and does not feel this helped. He tried Tylenol the past he says he does not believe that it helps. He says he has an allergy to ibuprofen it causes his blood pressure to go up. He states he is taking his blood pressure medicine but is not sure what the name of it is. Location Injury Occurred: patients residence Allergies and Home Medications Allergies Coded Allergies: ibuprofen (Verified Allergy, Unknown, 04/05/15) HYPERTENSION Home Medications Aspirin 81 Mg Tablet.dr, 81 MG PO HS, (Reported) Atorvastatin Calcium 10 Mg Tablet, 10 MG PO HS, (Reported) Carisoprodol 250 Mg Tablet, 250 MG PO Q8H PRN for SPASMS, #15 Ref 0 Prescribed by: FRAN MORFIN on 08/07/17 1279 Cyclobenzaprine HCl 10 Mg Tablet, 10 MG PO TID PRN for MUSCLE SPASMS, (Reported) Isosorbide Mononitrate 30 Mg Tab.er.24h, 30 MG PO DAILY, (Reported) Metoprolol Succinate 25 Mg Tab.er.24h, 25 MG PO DAILY, (Reported) Nitroglycerin 0.4 Mg Tab.subl, 0.4 MG SL UD PRN for CHEST PAIN, (Reported) Prednisone 10 Mg Tab.ds.pk, 10 MG PO UD, #1 Ref 0 Prescribed by: FRAN MORFIN on 08/07/17 1651 Tramadol HCl 50 Mg Tablet, 50 MG PO BID PRN for PAIN-MODERATE, (Reported) Constitutional: No chills, No diaphoresis Eyes: Denies Blindness, Denies Blurred Vision, Denies Decreased Acuity Ears, Nose, Mouth, Throat: denies ear pain, denies ear discharge Respiratory: No cough, No short of breath Cardiovascular: No chest pain, No palpitations Gastrointestinal: No abdominal pain, No constipation, No diarrhea, No nausea, No vomiting Genitourinary: No discharge, No dysuria Musculoskeletal: see HPI, back pain, neck pain Skin: No pruritus, No rash Psychiatric/Neurological: Denies Headache, Denies Numbness, Denies Paresthesia , Denies Pre-Existing Deficit, Denies Seizure, Denies Tingling, Denies Weakness Past Eoolokm-Tvrhxr-Xejheb Hx Patient Social History Alcohol Use: Occasionally Uses Recreational Drug Use: Yes Drug of Choice: XANAX, NARCOTICS, HAS ALSO TESTED + FOR METHAMPHETAMIES Type Used: Cigarettes 2nd Hand Smoke Exposure: Yes Recent Foreign Travel: No Contact w/Someone Who Travel: No Recent Infectious Disease Expo: No Recent Hopitalizations: No Physical Abuse: No Sexual Abuse: No Immunizations Up To Date Tetanus Booster (TDap): Less than 5yrs PED Vaccines UTD: No Date of Pneumonia Vaccine: May 26, 2017 Date of Influenza Vaccine: May 26, 2017 Seasonal Allergies Seasonal Allergies: No Surgeries History of Surgeries: Yes Surgeries: Appendectomy, Ear Surgery, Gallbladder, Orthopedic Respiratory History of Respiratory Disorde: Yes (PER OLD RECORDS, PT HAS COPD, BUT PT DENIES) Respiratory Disorders: Chronic Bronchitis, COPD, Emphysema Cardiovascular History of Cardiac Disorders: Yes Cardiac Disorders: Coronary Artery Disease, High Cholesterol, Hypertension Neurological History of Neurological Disord: Yes (RESTLESS LEG SYNDROME) Reproductive System Hx Reproductive Disorders: No Sexually Transmitted Disease: No HIV/AIDS: No Genitourinary History of Genitourinary Disor: No Gastrointestinal History of Gastrointestinal Di: Yes (CHRONIC DYSPHAGIA AND HOARSENESS; ESOPHAGEAL STRICTURE) Gastrointestinal Disorders: Gastroesophageal Reflux Musculoskeletal History of Musculoskeletal Dis: Yes (C2-C6 FUSION NECK,ROTATOR CUFF REPAIR; CHRONIC NECK AND BACK PAIN ) Musculoskeletal Disorders: Chronic Back Pain Endocrine History of Endocrine Disorders: No HEENT History of HEENT Disorders: Yes (POOR DENTITION) Hearing Impairment: Hard of Hearing Cancer History of Cancer: Yes Cancer: Skin Did You Recieve Any Treatments: Yes Type of Tx Receive: Surgical Intervention Psychosocial History of Psychiatric Problem: Yes Behavioral Health Disorders: Anxiety, Suicide Attempts, Depression Suicide Risk Score: 0 Integumentary History of Skin or Integumenta: No Blood Transfusions History of Blood Disorders: No Adverse Reaction to a Blood Tr: No Family Medical History Significant Family History: Cancer Family Medial History: Cancer 03 FATHER (PROSTATE) 03 MOTHER (BREAST CA ) 09 BROTHER (THROAT/PANCREATIC) 09 SISTER (LIVER) DEAFNESS 03 FATHER 09 BROTHER Family history: Breast disease 03 MOTHER (BREAST CA) History of - respiratory disease Prostate cancer 03 FATHER Stroke 03 MOTHER Visual impairment Physical Exam Vital Signs Vital Sign - Last 12Hours Capillary Refill : Less Than 3 Seconds General Appearance: mild distress, thin HEENT: PERRL/EOMI, normal ENT inspection, TMs normal, pharynx normal Neck: non-tender, supple, normal inspection Cardiovascular: normal peripheral pulses, regular rate, rhythm Respiratory: chest non-tender, lungs clear, normal breath sounds, no respiratory distress, no accessory muscle use Gastrointestinal: normal bowel sounds, non tender, soft Back: normal inspection, vertebral tenderness (lumbar and neck bilateral) Extremities: normal range of motion, non-tender, normal inspection, no pedal edema, no calf tenderness, normal capillary refill 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, no motor/sensory deficits, alert, normal mood/affect, oriented x 3, other (deep tendon reflexes 2+ bilateral upper extremities biceps and 2+ bilateral, symmetric patellar reflexes.) Skin: normal color, warm/dry Emilee Coma Score Best Eye Response: (4) Open Spontaneously Best Verbal Response: (5) Oriented Best Motor Response: (6) Obeys Commands Emilee Total: 15 Progress/Results/Core Measures Results/Orders My Orders Orders - ROXANE COHEN Ct Head/Cervical Spine Wo (08/29/17 13:25) Ct Lumbar Spine Wo (08/29/17 13:25) Ketorolac Injection (Toradol Injection) (08/29/17 13:30) Iv/Invasive Line Insertion .on IV start (08/29/17 13:25) Hydrocodone/Apap 7.5/325 Tab (Lortab 7. (08/29/17 13:45) Medications Given in ED Current Medications Medications Dose Ordered Sig/Isabell Route Start Time Stop Time Status Last Admin Dose Admin Acetaminophen/ Hydrocodone Bitart 1 ea ONCE ONCE PO 08/29/17 13:45 08/29/17 13:46 DC 08/29/17 14:07 1 EA Vital Signs/I&O Vital Sign - Last 12Hours 08/29/17 08/29/17 13:02 13:02 Pulse 90 90 Resp 16 14 B/P (MAP) 174/117 (136) 174/117 (136) Pulse Ox 98 98 O2 Delivery Room Air Room Air Blood Pressure Mean: 136 Progress Note : Time: 13:32 Progress Note Patient with a history of back pain after a fall and possible aggravation of old injuries. We'll obtain CT of his head and neck and lumbar. His blood pressure is pretty high on admission which could partially be from pain but probably also represents under treated hypertension so we'll hold off on NSAIDs at this time. Diagnostic Imaging Diagonstic Imaging: CT Plain Films/CT/US/NM/MRI: c-spine, head Comments NAME: LUZ ELENA CALDWELL MED REC#: [id number] PHYSICIAN: ROXANE COHEN MD CC: JOY GUZMAN; ROXANE COHEN Page 2 of 2 RADIOLOGY REPORT VIA [facility]. [place], [place] CC: JOY GUZMAN; ROXANE COHEN Page 1 of 2 RADIOLOGY REPORT NAME: LUZ ELENA CALDWELL MED REC#: [id number] PT STATUS: REG ER : 1955 PHYSICIAN: ROXANE COHEN MD ADMIT DATE: 08/29/17/ER Signed Date of Exam: 08/29/17 CT HEAD/CERVICAL SPINE WO PROCEDURE: CT head and CT cervical spine without contrast. TECHNIQUE: Multiple contiguous axial images were obtained through the brain and cervical spine without the use of intravenous contrast. Sagittal and coronal reformations through the cervical spine were then performed. INDICATION: Fall, head injury. COMPARISON: None. CT HEAD: The ventricles are normal in size, shape and position. There is no midline shift or mass effect. There is no hemorrhage or evidence of acute ischemia. The bony calvarium is normal. Nonspecific effusion is seen in the right mastoid air cell. There is near complete opacification of the right maxillary sinus. IMPRESSION: 1. No acute intracranial abnormality. 2. Sinus disease. CT CERVICAL SPINE: There has been extensive anterior cervical fusion. Alignment is normal. There is no subluxation or fracture. Orthopedic hardware appears to be well seated. Diffuse degenerative disc disease and facet joint arthropathy is identified and stable. There is no osseous lesion. No paraspinous fluid collection. IMPRESSION: Stable anterior cervical fusion. No traumatic malalignment or fracture. Dictated by: Dictated on workstation # [id number] Dict: 08/29/17 1410 Trans: 08/29/17 141 Interpreted by: JOY GUZMAN Electronically signed by: JOY GUZMAN 08/29/171417 Reviewed: Reviewed by Me Diagonstic Imaging: CT Plain Films/CT/US/NM/MRI: other (lumbar spine w/o) Comments NAME: LUZ ELENA CALDWELL MED REC#: [id number] PHYSICIAN: ROXANE COHEN MD CC: JOY GUZMAN; ROXANE COHEN Page 2 of 2 RADIOLOGY REPORT VIA [place], [place] CC: JOY GUZMAN; ROXANE COHEN Page 1 of 2 RADIOLOGY REPORT NAME: LUZ ELENA CALDWELL MED REC#: [id number] PT STATUS: REG ER : 1955 PHYSICIAN: ROXANE COHEN MD ADMIT DATE: 08/29/17/ER Signed Date of Exam: 08/29/17 CT LUMBAR SPINE WO PROCEDURE: CT lumbar spine without contrast. TECHNIQUE: Multiple contiguous axial images were obtained through the lumbar spine without the use of intravenous contrast. Sagittal and coronal reformations were then performed. INDICATION: Back pain, radiculopathy, history of laminectomy and fusion. COMPARISON: 05/17/2015. FINDINGS: Stable appearing laminectomy and fusion is seen at L3-L4 and L4-L5. Pedicle screws and stabilization rods appear well seated. There are bilateral pars defects at the L4-L5 level. There is worsening diffuse degenerative disc disease and facet joint arthropathy. This is now most pronounced at L1-L2. There is severe disc space narrowing and Modic type endplate changes in posterior broad-based disc bulge. There is facet and ligamentum flavum hypertrophy. There is resultant severe central canal stenosis. Stable disc bulges are seen at L3-L4 and L5-S1. Additional moderate stenosis is seen at the L3-L4 level. There is no traumatic malalignment or fracture. There is some stable subsidence of the interbody fusion device at L4-L5. There is new subsidence or slight subsidence of the interbody fusion device at L3-L4. IMPRESSION: 1. No traumatic malalignment or fracture. 2. Stable laminectomy and fusion L3-L4 and L4-L5. No postoperative fluid collection seen. 3. New severe degenerative disc disease with Modic type endplate changes at L1-L2 with resultant severe central canal stenosis. 4. Degenerative disc disease with broad-based disc bulges at L2-L3 and L5-S1. There is resultant moderate central canal stenosis at the L2-L3 level. Dictated by: Dictated on workstation # [id number] Dict: 08/29/17 1407 Trans: 08/29/17 1418 Interpreted by: JOY GUZMAN Electronically signed by: JOY GUZMAN 08/29/17 1418 Reviewed: Reviewed by Me Departure Impression Impression: Primary Impression: Acute exacerbation of chronic low back pain Additional Impressions: Fall Qualified Codes: W19.XXXA - Unspecified fall, initial encounter Sciatic pain Qualified Codes: M54.30 - Sciatica, unspecified side Asymptomatic hypertension Disposition: 01 HOME, SELF-CARE Condition: Improved Departure-Patient Inst. Decision time for Depature: 15:58 Referrals: ARIADNA ALAS MD (PCP/Family) Primary Care Physician Patient Instructions: Low Back Pain (DC) Add. Discharge Instructions: For the first couple days apply an ice pack over your low back every 4-6 hours as needed for pain. Use heat in between then as well as creams such as icy hot or Biofreeze. Wear your back brace when active. The shot of steroids to kick in about 12-24 hours and last for 4-5 days. Follow-up in 4-5 days with your primary care physician to help decide if you need further steroids are physical therapy or other interventions. Use Tylenol 1000 g every 8 hours as needed for pain if this does not control your pain you may also use the hydrocodone every 6 hours. All discharge instructions reviewed with patient and/or family. Voiced understanding. Scripts Hydrocodone Bit/Acetaminophen (Hydrocodone/Acetaminophen 5/325mg Tablet) 1 Tab Tab 1 EACH PO Q6H Y for BREAKTHROUGH PAIN, #15 TAB 0 Refills Prov: ROXANE COHEN 08/29/17 Copy Copies To 1: ROSE KWONG DO ROXANE COHEN Aug 29, 2017 13:32
[2017-08-29] MEDS ORDERED: HYDROcodone/APAP 7.5 MG/325 MG (LORTAB, LORCET PLUS) TABLET PO ONE (13:45)
--- NOTE | 2017-08-29 14:15 | Diagnostic Imaging Report ---
PROCEDURE: CT head and CT cervical spine without contrast. TECHNIQUE: Multiple contiguous axial images were obtained through the brain and cervical spine without the use of intravenous contrast. Sagittal and coronal reformations through the cervical spine were then performed. INDICATION: Fall, head injury. COMPARISON: None. CT HEAD: The ventricles are normal in size, shape and position. There is no midline shift or mass effect. There is no hemorrhage or evidence of acute ischemia. The bony calvarium is normal. Nonspecific effusion is seen in the right mastoid air cell. There is near complete opacification of the right maxillary sinus. IMPRESSION: 1. No acute intracranial abnormality. 2. Sinus disease. CT CERVICAL SPINE: There has been extensive anterior cervical fusion. Alignment is normal. There is no subluxation or fracture. Orthopedic hardware appears to be well seated. Diffuse degenerative disc disease and facet joint arthropathy is identified and stable. There is no osseous lesion. No paraspinous fluid collection. IMPRESSION: Stable anterior cervical fusion. No traumatic malalignment or fracture. Dictated by: Dictated on workstation # [id number]
--- NOTE | 2017-08-29 14:17 | Diagnostic Imaging Report ---
PROCEDURE: CT lumbar spine without contrast. TECHNIQUE: Multiple contiguous axial images were obtained through the lumbar spine without the use of intravenous contrast. Sagittal and coronal reformations were then performed. INDICATION: Back pain, radiculopathy, history of laminectomy and fusion. COMPARISON: 05/17/2015. FINDINGS: Stable appearing laminectomy and fusion is seen at L3-L4 and L4-L5. Pedicle screws and stabilization rods appear well seated. There are bilateral pars defects at the L4-L5 level. There is worsening diffuse degenerative disc disease and facet joint arthropathy. This is now most pronounced at L1-L2. There is severe disc space narrowing and Modic type endplate changes in posterior broad-based disc bulge. There is facet and ligamentum flavum hypertrophy. There is resultant severe central canal stenosis. Stable disc bulges are seen at L3-L4 and L5-S1. Additional moderate stenosis is seen at the L3-L4 level. There is no traumatic malalignment or fracture. There is some stable subsidence of the interbody fusion device at L4-L5. There is new subsidence or slight subsidence of the interbody fusion device at L3-L4. IMPRESSION: 1. No traumatic malalignment or fracture. 2. Stable laminectomy and fusion L3-L4 and L4-L5. No postoperative fluid collection seen. 3. New severe degenerative disc disease with Modic type endplate changes at L1-L2 with resultant severe central canal stenosis. 4. Degenerative disc disease with broad-based disc bulges at L2-L3 and L5-S1. There is resultant moderate central canal stenosis at the L2-L3 level. Dictated by: Dictated on workstation # [id number]
[2017-08-29] MEDS ORDERED: DEXAMETHASONE 10 MG/ML (DECADRON) 1 ML VIAL IV ONE (16:00)
[2017-08-29] MEDS ORDERED: ACHD5005 PO (16:00)
[2017-08-29 16:57] VITALS: BP 174/106
== END 2017-08-29 16:58 | disposition home or self-care (01) ==
LOC: EDUNIT# 12:26 → ER 12:27
DX: M54.40 Lumbago with sciatica, unspecified side (principal); G89.29 Other chronic pain; I10 Essential (primary) hypertension; F32.9 Major depressive disorder, single episode, unspecified; F41.9 Anxiety disorder, unspecified; K21.9 Gastro-esophageal reflux disease without esophagitis; G25.81 Restless legs syndrome; J43.9 Emphysema, unspecified; I25.10 Atherosclerotic heart disease of native coronary artery without angina pectoris; E78.00 Pure hypercholesterolemia, unspecified; F15.90 Other stimulant use, unspecified, uncomplicated; Z77.22 Contact with and (suspected) exposure to environmental tobacco smoke (acute) (chronic); Z79.82 Long term (current) use of aspirin; Z90.49 Acquired absence of other specified parts of digestive tract; Z91.5 Personal history of self-harm; Z80.3 Family history of malignant neoplasm of breast; Z80.0 Family history of malignant neoplasm of digestive organs; W00.0XXA Fall on same level due to ice and snow, initial encounter
CPT/HCPCS: 70450; 72125; 72131; 99283

== ENCOUNTER 2017-09-02 15:10 | Emergency (ER) | payer MEDICARE ==
[~2017-09-02] VITALS: Ht 167.6 cm; Wt 59.0 kg
[2017-09-02 15:31] LABS: BASOPHILS % (AUTO) 0 % (0-10); EOSINOPHILS # (AUTO) 0.1 10^3/uL (0.0-0.3); EOSINOPHILS % (AUTO) 1 % (0-10); HEMATOCRIT 44 % (40-54); HEMOGLOBIN 14.5 G/DL (13.3-17.7); LYMPHOCYTES # (AUTO) 2.6 X 10^3 (1.0-4.0); LYMPHOCYTES % (AUTO) 24 % (12-44); MEAN CORPUSCULAR HEMOGLOBIN 32 PG (25-34); MEAN CORPUSCULAR HGB CONC 33 G/DL (32-36); MEAN CORPUSCULAR VOLUME 97 FL (80-99); MEAN PLATELET VOLUME 8.5 FL (7.4-10.4); MONOCYTES # (AUTO) 0.8 X 10^3 (0.0-1.0); MONOCYTES % (AUTO) 7 % (0-12); NEUTROPHILS # (AUTO) 7.5 X 10^3 (1.8-7.8); NEUTROPHILS % (AUTO) 68 % (42-75); PLATELET COUNT 319 10^3/uL (130-400); RED BLOOD COUNT 4.54 10^6/uL (4.35-5.85); RED CELL DISTRIBUTION WIDTH 13.6 % (10.0-14.5); WHITE BLOOD COUNT 10.9 10^3/uL (4.3-11.0)
[2017-09-02 15:44] LABS: INR 1.1 (0.8-1.4)
[2017-09-02 15:50] LABS: ALANINE AMINOTRANSFERASE 20 U/L (0-55); ALBUMIN 3.9 GM/DL (3.2-4.5); ALKALINE PHOSPHATASE 87 U/L (40-136); AMYLASE 63 U/L (25-125); BILIRUBIN,TOTAL 0.3 MG/DL (0.1-1.0); BUN/CREATININE RATIO 31; CALCIUM 9.1 MG/DL (8.5-10.1); CARBON DIOXIDE 26 MMOL/L (21-32); CHLORIDE 105 MMOL/L (98-107); CREATINE KINASE 32 U/L (30-200); GFR ESTIMATED > 60; GLUCOSE 95 MG/DL (70-105); LIPASE 42 U/L (8-78); MAGNESIUM 2.1 MG/DL (1.8-2.4); POTASSIUM 3.8 MMOL/L (3.6-5.0); SODIUM 140 MMOL/L (135-145); TOTAL PROTEIN 7.3 GM/DL (6.4-8.2)
[2017-09-02 15:57] LABS: CREATINE KINASE MB 0.5 NG/ML (<6.6)
--- NOTE | 2017-09-02 15:59 | Diagnostic Imaging Report ---
EXAMINATION: Portable erect AP chest at 3:42 p.m. INDICATION: Chest pain. FINDINGS: The heart size is within normal limits and stable when compared to 08/01/2017. The coarse perihilar markings seen on the prior study are again evident and no different. There is no sign of failure, pneumonia, or pleural effusion to suggest an acute abnormality. The mediastinum is not widened. The osseous structures are intact. One of the two sets of the orthopedic hardware overlying the lower cervical spine seen previously is again visualized. The defibrillator device battery pack lying just to the right of midline seen on the previous CT lumbar spine exam of 08/29/2017 is also again visualized. IMPRESSION: There is chronic pulmonary disease, but there is no sign of an acute cardiopulmonary abnormality. Dictated by: Dictated on workstation # [id number]
--- NOTE | 2017-09-02 16:50 | Diagnostic Imaging Report ---
PROCEDURE: CT head without contrast. TECHNIQUE: Multiple contiguous axial images were obtained through the brain without the use of intravenous contrast. INDICATION: Syncope, on blood thinners, possible head injury. COMPARISON: 01/22/2017. FINDINGS: There is extensive periventricular and subcortical white matter disease hypodense, unchanged from the prior exam. There is no intracranial hemorrhage and no acute extra-axial fluid collection. No hydrocephalus. No sulcal effacement. An incidental lipoma at the midline near the splenium of the corpus callosum is unchanged. Sclerosis and opacification of right-sided mastoid air cells are unchanged. There is likely some debris within the right middle ear cavity but not appreciably changed. There is lobular membrane thickening in the right maxillary sinus as a new finding. No paranasal sinus air/fluid level. IMPRESSION: Extensive subcortical and periventricular white matter disease, stable from the prior exam. No intracranial hemorrhage or acute intracerebral pathology. No fracture deformity. Redemonstration of likely chronic right-sided mastoid effusion and at least partial opacification of the right middle ear cavities. New lobular membrane thickening involving the right maxillary sinus without discrete air/fluid levels. Dictated by: Dictated on workstation # [id number]
--- NOTE | 2017-09-02 17:13 | ED Chest Pain ---
General Chief Complaint: Chest Pain Stated Complaint: CP Nursing Triage Note: ARRIVED VIA EMS. PT WENT TO PAY GAS BILL AND STARTED HAVING CHEST PAIN AND PASSED OUT. STATES HE DOES NOT KNOW IF HE HIT HIS HEAD AND IS ON BLOOD THINNERS. CONTINUES TO COMPLAIN OF PAIN DESPIT NITRO X3 AND ASA 324MG GIVEN BY EMS. Nursing Sepsis Screen: No Definite Risk Allergies and Home Medications Allergies Coded Allergies: ibuprofen (Verified Allergy, Unknown, 04/05/15) HYPERTENSION Home Medications Aspirin 81 Mg Tablet.dr, 81 MG PO HS, (Reported) Atorvastatin Calcium 10 Mg Tablet, 10 MG PO HS, (Reported) Carisoprodol 250 Mg Tablet, 250 MG PO Q8H PRN for SPASMS, #15 Ref 0 Prescribed by: FRAN MORFIN on 08/07/17 1646 Cyclobenzaprine HCl 10 Mg Tablet, 10 MG PO TID PRN for MUSCLE SPASMS, (Reported) Hydrocodone Bit/Acetaminophen 1 Tab Tab, 1 EACH PO Q6H PRN for BREAKTHROUGH PAIN , #15 Ref 0 Prescribed by: ROXANE COHEN on 08/29/17 1600 Isosorbide Mononitrate 30 Mg Tab.er.24h, 30 MG PO DAILY, (Reported) Metoprolol Succinate 25 Mg Tab.er.24h, 25 MG PO DAILY, (Reported) Nitroglycerin 0.4 Mg Tab.subl, 0.4 MG SL UD PRN for CHEST PAIN, (Reported) Prednisone 10 Mg Tab.ds.pk, 10 MG PO UD, #1 Ref 0 Prescribed by: FRAN MORFIN on 08/07/17 1651 Tramadol HCl 50 Mg Tablet, 50 MG PO BID PRN for PAIN-MODERATE, (Reported) Past [facility]-Wpaycp Hx Patient Social History Alcohol Use: Denies Use Recreational Drug Use: No Drug of Choice: XANAX, NARCOTICS, HAS ALSO TESTED + FOR METHAMPHETAMIES Smoking Status: Current Everyday Smoker Type Used: Cigarettes 2nd Hand Smoke Exposure: Yes Recent Foreign Travel: No Contact w/Someone Who Travel: No Recent Infectious Disease Expo: No Recent Hopitalizations: No Immunizations Up To Date Tetanus Booster (TDap): Less than 5yrs PED Vaccines UTD: No Date of Pneumonia Vaccine: May 26, 2017 Date of Influenza Vaccine: May 26, 2017 Seasonal Allergies Seasonal Allergies: No Surgeries History of Surgeries: Yes Surgeries: Appendectomy, Ear Surgery, Gallbladder, Orthopedic Respiratory History of Respiratory Disorde: Yes (PER OLD RECORDS, PT HAS COPD, BUT PT DENIES) Respiratory Disorders: Chronic Bronchitis, COPD, Emphysema Cardiovascular History of Cardiac Disorders: Yes Cardiac Disorders: Coronary Artery Disease, High Cholesterol, Hypertension Neurological History of Neurological Disord: Yes (RESTLESS LEG SYNDROME) Reproductive System Hx Reproductive Disorders: No Sexually Transmitted Disease: No HIV/AIDS: No Genitourinary History of Genitourinary Disor: No Gastrointestinal History of Gastrointestinal Di: Yes (CHRONIC DYSPHAGIA AND HOARSENESS; ESOPHAGEAL STRICTURE) Gastrointestinal Disorders: Gastroesophageal Reflux Musculoskeletal History of Musculoskeletal Dis: Yes (C2-C6 FUSION NECK,ROTATOR CUFF REPAIR; CHRONIC NECK AND BACK PAIN ) Musculoskeletal Disorders: Chronic Back Pain Endocrine History of Endocrine Disorders: No HEENT History of HEENT Disorders: Yes (POOR DENTITION) Hearing Impairment: Hard of Hearing Cancer History of Cancer: Yes Cancer: Skin Did You Recieve Any Treatments: Yes Type of Tx Receive: Surgical Intervention Psychosocial History of Psychiatric Problem: Yes Behavioral Health Disorders: Anxiety, Suicide Attempts, Depression Integumentary History of Skin or Integumenta: No Blood Transfusions History of Blood Disorders: No Adverse Reaction to a Blood Tr: No Family Medical History Significant Family History: Cancer Family Medial History: Cancer 03 FATHER (PROSTATE) 03 MOTHER (BREAST CA ) 09 BROTHER (THROAT/PANCREATIC) 09 SISTER (LIVER) DEAFNESS 03 FATHER 09 BROTHER Family history: Breast disease 03 MOTHER (BREAST CA) History of - respiratory disease Prostate cancer 03 FATHER Stroke 03 MOTHER Visual impairment Physical Exam Vital Signs Vital Sign - Last 12Hours 09/02/17 15:10 Temp 97.4 Pulse 88 Resp 18 B/P (MAP) 133/89 (104) Pulse Ox 98 O2 Delivery Room Air Capillary Refill : Less Than 3 Seconds Progress/Results/Core Measures Results/Orders Lab Results Laboratory Tests Test 09/02/17 15:23 Range/Units White Blood Count 10.9 4.3-11.0 10^3/uL Red Blood Count 4.54 4.35-5.85 10^6/uL Hemoglobin 14.5 13.3-17.7 G/DL Hematocrit 44 40-54 % Mean Corpuscular Volume 97 80-99 FL Mean Corpuscular Hemoglobin 32 25-34 PG Mean Corpuscular Hemoglobin Concent 33 32-36 G/DL Red Cell Distribution Width 13.6 10.0-14.5 % Platelet Count 319 130-400 10^3/uL Mean Platelet Volume 8.5 7.4-10.4 FL Neutrophils (%) (Auto) 68 42-75 % Lymphocytes (%) (Auto) 24 12-44 % Monocytes (%) (Auto) 7 0-12 % Eosinophils (%) (Auto) 1 0-10 % Basophils (%) (Auto) 0 0-10 % Neutrophils # (Auto) 7.5 1.8-7.8 X 10^3 Lymphocytes # (Auto) 2.6 1.0-4.0 X 10^3 Monocytes # (Auto) 0.8 0.0-1.0 X 10^3 Eosinophils # (Auto) 0.1 0.0-0.3 10^3/uL Basophils # (Auto) 0.0 0.0-0.1 10^3/uL Prothrombin Time 14.0 12.2-14.7 SEC INR Comment 1.1 0.8-1.4 Activated Partial Thromboplast Time 28 24-35 SEC Sodium Level 140 135-145 MMOL/L Potassium Level 3.8 3.6-5.0 MMOL/L Chloride Level 105 98-107 MMOL/L Carbon Dioxide Level 26 21-32 MMOL/L Anion Gap 9 5-14 MMOL/L Blood Urea Nitrogen 25 H 7-18 MG/DL Creatinine 0.80 0.60-1.30 MG/DL Estimat Glomerular Filtration Rate > 60 BUN/Creatinine Ratio 31 Glucose Level 95 70-105 MG/DL Calcium Level 9.1 8.5-10.1 MG/DL Magnesium Level 2.1 1.8-2.4 MG/DL Total Bilirubin 0.3 0.1-1.0 MG/DL Aspartate Amino Transf (AST/SGOT) 14 5-34 U/L Alanine Aminotransferase (ALT/SGPT) 20 0-55 U/L Alkaline Phosphatase 87 40-136 U/L Total Creatine Kinase 32 30-200 U/L Creatine Kinase MB 0.5 <6.6 NG/ML Troponin I < 0.30 <0.30 NG/ML B-Type Natriuretic Peptide < 10.0 <100.0 PG/ML Total Protein 7.3 6.4-8.2 GM/DL Albumin 3.9 3.2-4.5 GM/DL Amylase Level 63 25-125 U/L Lipase 42 8-78 U/L Serum Alcohol < 10 <10 MG/DL My Orders Orders - TIMI MATTSON DO Ekg Tracing (09/02/17 15:16) Amylase (09/02/17 15:23) Cbc With Automated Diff (09/02/17 15:23) Comprehensive Metabolic Panel (09/02/17 15:23) Creatine Kinase (09/02/17 15:23) Creatine Kinase Mb (09/02/17 15:23) Lipase (09/02/17 15:23) Partial Thromboplastin Time (09/02/17 15:23) Protime With Inr (09/02/17 15:23) Troponin I (09/02/17 15:23) Chest 1 View, Ap/Pa Only (09/02/17 15:23) O2 (09/02/17 15:23) BNP (09/02/17 15:23) Monitor-Rhythm Ecg Trace Only (09/02/17 15:23) Magnesium (09/02/17 15:23) Ct Head Wo (09/02/17 16:09) Alcohol (09/02/17 16:17) Drug Screen Stat (Urine) (09/02/17 16:17) Vital Signs/I&O Vital Sign - Last 12Hours 09/02/17 15:10 Temp 97.4 Pulse 88 Resp 18 B/P (MAP) 133/89 (104) Pulse Ox 98 O2 Delivery Room Air Blood Pressure Mean: 104 Diagnostic Imaging Comments CXR--NO ACUTE PROCESS, PER RADIOLOGIST REPORT CT HEAD--NO ACUTE INTRACRANIAL PROCESS, ACUTE APPEARING MAXILLARY SINUSITIS AND CHRONIC APPEARING RIGHT MASTOID FLUID PER RADIOLOGIST REPORTS @ 1710 Reviewed: Reviewed by Me Departure Impression Impression: Primary Impression: Syncope Additional Impressions: Chest pain Chest wall pain Disposition: HOME, SELF-CARE Condition: Stable Departure-Patient Inst. Referrals: ARIADNA ALAS MD (PCP/Family) Primary Care Physician Patient Instructions: Chest Pain (DC), Costochondritis (DC), Syncope (Fainting ) (DC) Add. Discharge Instructions: TAKE YOUR MEDICATIONS PRESCRIBED--DO NOT MISS DOSES !!!! FOLLOW UP WITH [facility] IN 1-2 DAYS FOR FURTHER CARE RETURN TO ER IF SYMPTOMS WORSEN All discharge instructions reviewed with patient and/or family. Voiced understanding. TIMI MATTSON DO Sep 02, 2017 17:13
[2017-09-02 17:37] VITALS: BP 159/102
[2017-09-02 18:05] LABS: AMPHETAMINE SCREEN, URINE NEGATIVE (NEGATIVE); BARBITURATE SCREEN URINE NEGATIVE (NEGATIVE); BENZODIAZEPINES SCREEN URINE NEGATIVE (NEGATIVE); CANNABINOID SCREEN, URINE NEGATIVE (NEGATIVE); COCAINE SCREEN URINE NEGATIVE (NEGATIVE); METHADONE STAT NEGATIVE (NEGATIVE); METHAMPHETAMINE SCREEN URINE S NEGATIVE (NEGATIVE); OPIATE SCREEN URINE NEGATIVE (NEGATIVE); OXYCODONE STAT NEGATIVE (NEGATIVE); PROPOXYPHENE STAT NEGATIVE (NEGATIVE); TRICYCLIC ANTIDEPRESSANTS SCRE NEGATIVE (NEGATIVE)
== END 2017-09-02 17:40 | disposition home or self-care (01) ==
LOC: EDUNIT# 15:10 → ER 15:11
DX: R55 Syncope and collapse (principal); R07.89 Other chest pain; F41.9 Anxiety disorder, unspecified; F32.9 Major depressive disorder, single episode, unspecified; K21.9 Gastro-esophageal reflux disease without esophagitis; G25.81 Restless legs syndrome; I25.10 Atherosclerotic heart disease of native coronary artery without angina pectoris; E78.00 Pure hypercholesterolemia, unspecified; J43.9 Emphysema, unspecified; I10 Essential (primary) hypertension; F15.90 Other stimulant use, unspecified, uncomplicated; F17.210 Nicotine dependence, cigarettes, uncomplicated; Z79.82 Long term (current) use of aspirin; Z90.49 Acquired absence of other specified parts of digestive tract; Z91.5 Personal history of self-harm
CPT/HCPCS: 36415; 70450; 71045; 80053; 80306; 80320; 82150; 82550; 82553; 83690; 83735; 83880; 84484; 85025; 85610; 85730; 93005; 93041

== ENCOUNTER 2017-11-30 09:56 | Emergency (ER) | payer MEDICARE ==
[~2017-11-30] VITALS: Ht 167.6 cm; Wt 59.0 kg
[~2017-11-30 09:56] MED LIST changes: +HYDR-3870 PO; -HYDR-3874 PO
--- OUTSIDE RECORDS SUMMARY | 2017-11-30 10:02 | XMS REPORT | Clinical Summary ---
Author Author [facility] Organization [facility] Address Unknown Phone Unavailable Care Team Providers Care Car Knocker Name Role Phone Unverified, Unverified Md PCP Unavailable Source Comments Some departments are not documenting in the electronic medical record. If you do not see the information that you expected, contact Release of Information in the Health Information Management department at [phone] for further assistance in locating additional records.[facility] Allergies Not on File Current Medications Not on file Active Problems Not on file Social History Tobacco Use Types Packs/Day Years Used Date Never Assessed Sex Assigned at Date Recorded Not on file Last Filed Vital Signs Not on file Plan of Treatment Health Maintenance Due Date Last Done Comments HEPATITIS C SCREENING 1955 PHYSICAL (COMPREHENSIVE) 1962 EXAM PERTUSSIS VACCINE 1966 HIV SCREENING 1970 TETANUS VACCINE 02/14/1972 COLORECTAL CANCER 2005 SCREENING SHINGLES VACCINE 2015 INFLUENZA VACCINE 05/17/2018 Results Not on filefrom Last 3 Months
--- OUTSIDE RECORDS SUMMARY | 2017-11-30 10:08 | XMS REPORT | Continuity of Care Document ---
Author Author [facility] Address Unknown Phone Unavailable Allergies Active Description Code Type Severity Reaction Onset Reported/Identified Relationship to Patient Clinical Status Yes NKANo Known Allergies NKA Miscellaneous Allergy Unknown N/A 08/03/2006 Yes No Known Drug Allergies [id number] Drug Allergy Mild N/A 12/24/2008 Yes amphetamine Drug Allergy N/A N/A 11/10/2013 Yes Benzodiazepines Drug Allergy N/A N/A 11/10/2013 Yes hydrocodone Drug Allergy N/A N/A 11/10/2013 Yes ibuprofen [id number] Drug Allergy Unknown N/A 04/05/2015 Medications There [...] ADV EFF BENZODIAZ TRANQ 07/02/2013 ALBA ROSA 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 Ot 723.1 CERVICALGIA 07/10/2013 KRISTINA MONCADA MD [...] NOS-PEDEST 10/06/2013 OLIVIA CARDOSO DO Ot V06.1 [id number], COMBINED [ 10/06/2013 WALKER OLIVIA TOPETE Ot [...] OTHER ACUTE POSTOPERATIVE PAIN 06/03/2014 ROSAALBA MERINO 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 Ot 338.18 OTHER ACUTE POSTOPERATIVE PAIN 06/03/2014 ALBA ROSA 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 Ot 724.2 LUMBAGO 07/01/2014 CORAL NAYAK, KRISTINA [...] BURCH MD Ot V67.09 01/25/2015 ALBA ROSA 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 Ot 338.18 OTHER ACUTE POSTOPERATIVE PAIN 01/26/2015 [...] ARNOLD GOFF MD, Ot 724.2 06/04/2015 ARNOLD OGFF MD Ot 737.30 06/08/2015 ARNOLD GOFF MD [...] MOYER PA, KRISTINA M Ot 723.1 10/08/2015 MOYRE PA, KRISTINA M Ot 726.10 10/08/2015 MOYER [...] Ot M54.5 LOW BACK PAIN 03/02/2016 ALBA RSOA APRN Ot F17.210 NICOTINE DEPENDENCE, CIGARETTES, UNCOMPL 03/02/2016 ALBA ROSA APRN Ot G89.29 OTHER CHRONIC PAIN 03/02/2016 ALBA ROSA APRN Ot M54.5 LOW BACK PAIN 03/04/2016 ALBA ROSA APRN Ot F17.210 NICOTINE DEPENDENCE, CIGARETTES, UNCOMPL 03/04/2016 ALBA ROSA APRN Ot G89.29 OTHER CHRONIC PAIN 03/04/2016 ALBA ROSA 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 Ot M54.5 LOW BACK PAIN 04/09/2016 SRINIVASAN [...] Ot G89.29 OTHER CHRONIC PAIN 05/07/2016 SRINIVASAN ITMI TOPETE Ot M54.5 LOW BACK PAIN 05/08/2016 [...] RETENTION OF URINE, UNSPECIFIED 08/10/2016 ALBA ROSA 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 Ot G89.29 OTHER CHRONIC PAIN 08/10/2016 ALBA ROSA 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 Ot R42 DIZZINESS AND GIDDINESS 08/10/2016 ALBA ROSA 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 Ot Z79.899 OTHER SENIOR CARE (CURRENT) DRUG THERAPY 08/12/2016 ALBA ROSA 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 Ot G89.29 OTHER CHRONIC PAIN 08/12/2016 ALBA ROSA 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 Ot R42 DIZZINESS AND GIDDINESS 08/12/2016 ALBA ROSA 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 Ot Z79.899 OTHER SENIOR CARE (CURRENT) DRUG THERAPY 08/27/2016 CARYN HUERTA MD [...] GASTRO-ESOPHAGEAL REFLUX DISEASE WITHOUT 04/16/2017 SHELBIE, FRAN NITROGLYCERIN SEPARATOR OPERATOR Ot M54.5 LOW BACK PAIN 04/16/2017 SHELBIE, FRAN NITROGLYCERIN SEPARATOR OPERATOR Ot S39.012A STRAIN OF MUSCLE, FASCIA AND TENDON OF L 04/16/2017 SHELBIE FRAN NITROGLYCERIN SEPARATOR OPERATOR Ot W17.2XXA FALL INTO HOLE, INITIAL ENCOUNTER 04/16/2017 FRAN MORFIN NITROGLYCERIN SEPARATOR OPERATOR Ot Z80.0 FAMILY HISTORY OF MALIGNANT NEOPLASM OF 04/16/2017 SHELBIE, FRAN NITROGLYCERIN SEPARATOR OPERATOR Ot Z80.42 FAMILY HISTORY OF MALIGNANT NEOPLASM OF 04/16/2017 SHELBIE, FRAN NITROGLYCERIN SEPARATOR OPERATOR Ot Z90.49 ACQUIRED ABSENCE OF OTHER SPECIFIED PART 04/16/2017 SHELBIE, FRAN NITROGLYCERIN SEPARATOR OPERATOR Ot Z91.5 PERSONAL HISTORY OF SELF-HARM 04/20/2017 SHELBIE, FRAN NITROGLYCERIN SEPARATOR OPERATOR Ot F17.210 NICOTINE DEPENDENCE, CIGARETTES, UNCOMPL 04/20/2017 SHELBIE, FRAN NITROGLYCERIN SEPARATOR OPERATOR Ot F41.9 ANXIETY DISORDER, UNSPECIFIED 04/20/2017 SHELBIE, FRAN NITROGLYCERIN SEPARATOR OPERATOR Ot G25.81 RESTLESS LEGS SYNDROME 04/20/2017 SHELBIE FRAN NITROGLYCERIN SEPARATOR OPERATOR Ot J44.9 CHRONIC OBSTRUCTIVE PULMONARY DISEASE, U 04/20/2017 SHELBIE, FRAN NITROGLYCERIN SEPARATOR OPERATOR Ot K21.9 GASTRO-ESOPHAGEAL REFLUX DISEASE WITHOUT 04/20/2017 SHELBIE, FRAN NITROGLYCERIN SEPARATOR OPERATOR Ot M54.5 LOW BACK PAIN 04/20/2017 SHELBIE, FRAN NITROGLYCERIN SEPARATOR OPERATOR Ot S39.012A STRAIN OF MUSCLE, FASCIA AND TENDON OF L 04/20/2017 SHELBIE FRAN NITROGLYCERIN SEPARATOR OPERATOR Ot W17.2XXA FALL INTO HOLE, INITIAL ENCOUNTER 04/20/2017 SHELBIE FRAN NITROGLYCERIN SEPARATOR OPERATOR Ot Z80.0 FAMILY HISTORY OF MALIGNANT NEOPLASM OF 04/20/2017 SHELBIE, FRAN NITROGLYCERIN SEPARATOR OPERATOR Ot Z80.42 FAMILY HISTORY OF MALIGNANT NEOPLASM OF 04/20/2017 SHELBIE, FRAN NITROGLYCERIN SEPARATOR OPERATOR Ot Z90.49 ACQUIRED ABSENCE OF OTHER SPECIFIED PART 04/20/2017 SHELBIE, FRAN NITROGLYCERIN SEPARATOR OPERATOR Ot Z91.5 PERSONAL HISTORY OF SELF-HARM 04/21/2017 SHELBIE, FRAN NITROGLYCERIN SEPARATOR OPERATOR Ot F17.210 NICOTINE DEPENDENCE, CIGARETTES, UNCOMPL 04/21/2017 SHELBIE, FRAN NITROGLYCERIN SEPARATOR OPERATOR Ot F41.9 ANXIETY DISORDER, UNSPECIFIED 04/21/2017 SHELBIE, FRAN NITROGLYCERIN SEPARATOR OPERATOR Ot G25.81 RESTLESS LEGS SYNDROME 04/21/2017 SHELBIE FRAN NITROGLYCERIN SEPARATOR OPERATOR Ot J44.9 CHRONIC OBSTRUCTIVE PULMONARY DISEASE, U [...] MD Ot I25.10 ATHSCL HEART DISEASE OF [place] CORONARY 06/29/2017 KEIRY GUIDO MD Ot M48.061 SPINAL STENOSIS, LUMBAR REGION WITHOUT N 06/29/2017 KEIRY GUIDO MD Ot M51.36 OTHER INTERVERTEBRAL DISC DEGENERATION, 06/29/2017 KEIRY GUIDO MD Ot M96.1 POSTLAMINECTOMY SYNDROME, NOT ELSEWHERE 06/29/2017 KEIRY GUIDO MD Ot R06.02 SHORTNESS OF BREATH 06/29/2017 KEIRY GUIDO MD Ot R07.9 CHEST PAIN, UNSPECIFIED 06/29/2017 KEIRY UGIDO MD Ot R94.39 ABNORMAL RESULT OF OTHER CARDIOVASCULAR 06/29/2017 KEIRY GUIDO MD Ot Z79.899 OTHER SENIOR CARE (CURRENT) DRUG THERAPY 06/30/2017 ARIADNA DYER MD [...] UNSPECIFIED 07/12/2017 ROXANE COHEN MD Ot Z79.82 SENIOR CARE (CURRENT) USE OF ASPIRIN 07/12/2017 ROXANE COHEN [...] MD, Ot I25.10 ATHSCL HEART DISEASE OF [place] CORONARY 07/24/2017 KEIRY GUIDO MD Ot M48.061 [...] 07/24/2017 KEIRY GUIDO MD Ot Z79.899 OTHER ORDNANCE TECHNICIAN (CURRENT) DRUG THERAPY 07/25/2017 TIMI MATTSON DO [...] DO Ot I25.10 ATHSCL HEART DISEASE OF [place] CORONARY 07/25/2017 TIMI MATTSON DO Ot J43.9 EMPHYSEMA, UNSPECIFIED 07/25/2017 TIMI MATTSON DO Ot K21.9 GASTRO-ESOPHAGEAL REFLUX DISEASE WITHOUT 07/25/2017 TIMI MATTSON DO Ot R07.89 OTHER CHEST PAIN 07/25/2017 TIMI MATTSON DO Ot R07.9 CHEST PAIN, UNSPECIFIED 07/25/2017 TIMI MATTSON DO Ot Z79.82 ORDNANCE TECHNICIAN (CURRENT) USE OF ASPIRIN 07/25/2017 TIMI MATTSON [...] F17.210 NICOTINE DEPENDENCE, CIGARETTES, UNCOMPL 08/02/2017 JOY LANDRMU MD, Ot F32.9 MAJOR DEPRESSIVE DISORDER, SINGLE EPISOD 08/02/2017 JOY LANDRUM MD, Ot F41.9 ANXIETY DISORDER, UNSPECIFIED 08/02/2017 JOY LANDRUM MD, Ot G25.81 RESTLESS LEGS SYNDROME 08/02/2017 JOY LANDRUM MD, Ot I10 ESSENTIAL (PRIMARY) HYPERTENSION 08/02/2017 JOY LANDRUM MD, Ot I25.10 ATHSCL HEART DISEASE OF [place] CORONARY 08/02/2017 JOY LANDRUM MD, Ot K21.9 GASTRO-ESOPHAGEAL REFLUX DISEASE WITHOUT 08/02/2017 JOY LANDRUM MD, Ot R07.9 CHEST PAIN, UNSPECIFIED 08/02/2017 JOY LANDRUM MD, Ot Z79.82 ORDNANCE TECHNICIAN (CURRENT) USE OF ASPIRIN 08/02/2017 JOY LANDRUM MD, Ot Z79.899 OTHER SENIOR CARE (CURRENT) DRUG THERAPY 08/02/2017 JOY LANDRUM MD, [...] MD, Ot I25.10 ATHSCL HEART DISEASE OF [place] CORONARY 08/02/2017 JOY LANDRUM MD Ot K21.9 GASTRO-ESOPHAGEAL REFLUX DISEASE WITHOUT 08/02/2017 JOY LANDRUM MD Ot R07.9 CHEST PAIN, UNSPECIFIED 08/02/2017 JOY LANDRUM MD, Ot Z79.82 SENIOR CARE (CURRENT) USE OF ASPIRIN 08/02/2017 JOY LANDRUM MD, Ot Z79.899 OTHER SENIOR CARE (CURRENT) DRUG THERAPY 08/03/2017 SRINIVASAN DO TIMI [...] K Ot I25.10 ATHSCL HEART DISEASE OF [place] CORONARY 08/03/2017 SRINIVASAN TIMI K Ot J43.9 EMPHYSEMA, UNSPECIFIED 08/03/2017 SRINIVASAN TIMI K Ot K21.9 GASTRO-ESOPHAGEAL REFLUX DISEASE WITHOUT 08/03/2017 SRINIVASAN DO TIMI K Ot R07.89 OTHER CHEST PAIN 08/03/2017 SRINIVASAN DO TIMI K Ot R07.9 CHEST PAIN, UNSPECIFIED 08/03/2017 SRINIVASAN DO TIMI K Ot Z79.82 ORDNANCE TECHNICIAN (CURRENT) USE OF ASPIRIN 08/03/2017 SRINIVASAN DO [...] K Ot I25.10 ATHSCL HEART DISEASE OF [place] CORONARY 08/04/2017 TIMI MATTSON DO Ot J43.9 EMPHYSEMA, UNSPECIFIED 08/04/2017 TIMI MATTSON DO Ot K21.9 GASTRO-ESOPHAGEAL REFLUX DISEASE WITHOUT 08/04/2017 TIMI MATTSON DO Ot R07.89 OTHER CHEST PAIN 08/04/2017 TIMI MATTSON DO Ot R07.9 CHEST PAIN, UNSPECIFIED 08/04/2017 TIMI MATTSON DO Ot Z79.82 SENIOR CARE (CURRENT) USE OF ASPIRIN 08/04/2017 TIMI MATTSON [...] MD, Ot I25.10 ATHSCL HEART DISEASE OF [place] CORONARY 08/05/2017 LUCITA MD, JOY J Ot K21.9 GASTRO-ESOPHAGEAL REFLUX DISEASE WITHOUT 08/05/2017 LUCITA NAYAK, JOY Ramires Ot R07.9 CHEST PAIN, UNSPECIFIED 08/05/2017 LUCITA NAYAK, JOY Ramires Ot Z79.82 ORDNANCE TECHNICIAN (CURRENT) USE OF ASPIRIN 08/05/2017 JOY LANDRUM MD Ot Z79.899 OTHER ORDNANCE TECHNICIAN (CURRENT) DRUG THERAPY 08/07/2017 SHELBIE, FRAN NITROGLYCERIN SEPARATOR OPERATOR Ot E78.00 PURE HYPERCHOLESTEROLEMIA, UNSPECIFIED 08/07/2017 SHELBIE, FRAN NITROGLYCERIN SEPARATOR OPERATOR Ot F32.9 MAJOR DEPRESSIVE DISORDER, SINGLE EPISOD 08/07/2017 SHELBIE, FRAN NITROGLYCERIN SEPARATOR OPERATOR Ot F41.9 ANXIETY DISORDER, UNSPECIFIED 08/07/2017 SHELBIE, FRAN NITROGLYCERIN SEPARATOR OPERATOR Ot I10 ESSENTIAL (PRIMARY) HYPERTENSION 08/07/2017 SHELBIE, FRAN NITROGLYCERIN SEPARATOR OPERATOR Ot I25.10 ATHSCL HEART DISEASE OF [place] CORONARY 08/07/2017 SHELBIE, FRAN NITROGLYCERIN SEPARATOR OPERATOR Ot J43.9 EMPHYSEMA, UNSPECIFIED 08/07/2017 SHELBIE, FRAN NITROGLYCERIN SEPARATOR OPERATOR Ot K21.9 GASTRO-ESOPHAGEAL REFLUX DISEASE WITHOUT 08/07/2017 SHELBIE, FRAN NITROGLYCERIN SEPARATOR OPERATOR Ot M54.16 RADICULOPATHY, LUMBAR REGION 08/07/2017 SHELBIE, FRAN NITROGLYCERIN SEPARATOR OPERATOR Ot M54.5 LOW BACK PAIN 08/07/2017 SHELBIE, FRAN NITROGLYCERIN SEPARATOR OPERATOR Ot Z79.82 ORDNANCE TECHNICIAN (CURRENT) USE OF ASPIRIN 08/07/2017 SHELBIE, FRAN NITROGLYCERIN SEPARATOR OPERATOR Ot Z80.0 FAMILY HISTORY OF MALIGNANT NEOPLASM OF 08/07/2017 SHELBIE, FRAN NITROGLYCERIN SEPARATOR OPERATOR Ot Z80.3 FAMILY HISTORY OF MALIGNANT NEOPLASM OF 08/07/2017 SHELBIE, FRAN NITROGLYCERIN SEPARATOR OPERATOR Ot Z80.59 FAMILY HISTORY OF MALIGNANT NEOPLASM OF 08/07/2017 SHELBIE, FRAN NITROGLYCERIN SEPARATOR OPERATOR Ot Z87.891 PERSONAL HISTORY OF NICOTINE DEPENDENCE 08/07/2017 SHELBIE, FRAN NITROGLYCERIN SEPARATOR OPERATOR Ot Z90.79 ACQUIRED ABSENCE OF OTHER GENITAL ORGAN( 08/11/2017 SHELBIE, FRAN NITROGLYCERIN SEPARATOR OPERATOR Ot E78.00 PURE HYPERCHOLESTEROLEMIA, UNSPECIFIED 08/11/2017 SHELBIE, FRAN NITROGLYCERIN SEPARATOR OPERATOR Ot F32.9 MAJOR DEPRESSIVE DISORDER, SINGLE EPISOD 08/11/2017 SHELBIE, FRAN NITROGLYCERIN SEPARATOR OPERATOR Ot F41.9 ANXIETY DISORDER, UNSPECIFIED 08/11/2017 SHELBIE, FRAN NITROGLYCERIN SEPARATOR OPERATOR Ot I10 ESSENTIAL (PRIMARY) HYPERTENSION 08/11/2017 FRAN MORFINP Ot I25.10 ATHSCL HEART DISEASE OF [place] CORONARY 08/11/2017 FRAN MORFINP Ot J43.9 EMPHYSEMA, UNSPECIFIED 08/11/2017 FRAN MORFINP Ot K21.9 GASTRO-ESOPHAGEAL REFLUX DISEASE WITHOUT 08/11/2017 FRAN MORFINP Ot M54.16 RADICULOPATHY, LUMBAR REGION 08/11/2017 FRAN MORFINP Ot M54.5 LOW BACK PAIN 08/11/2017 FRAN MORFIN NITROGLYCERIN SEPARATOR OPERATOR Ot Z79.82 ORDNANCE TECHNICIAN (CURRENT) USE OF ASPIRIN 08/11/2017 FRAN MORFIN NITROGLYCERIN SEPARATOR OPERATOR Ot Z80.0 FAMILY HISTORY OF MALIGNANT NEOPLASM OF 08/11/2017 FRAN MORFINP Ot Z80.3 FAMILY HISTORY OF MALIGNANT NEOPLASM OF 08/11/2017 FRAN MORFINP Ot Z80.59 FAMILY HISTORY OF MALIGNANT NEOPLASM OF 08/11/2017 FRAN MORFINP Ot Z87.891 PERSONAL HISTORY OF NICOTINE DEPENDENCE 08/11/2017 FRAN MORFIN NITROGLYCERIN SEPARATOR OPERATOR Ot Z90.79 ACQUIRED ABSENCE OF OTHER GENITAL ORGAN( 08/29/2017 ROXANE COHEN MD Ot E78.00 PURE HYPERCHOLESTEROLEMIA, UNSPECIFIED 08/29/2017 ROXANE COHEN MD Ot F15.90 OTHER STIMULANT USE, UNSPECIFIED, UNCOMP 08/29/2017 ROXANE COHEN MD Ot F32.9 MAJOR DEPRESSIVE DISORDER, SINGLE EPISOD 08/29/2017 ROXANE COHEN MD Ot F41.9 ANXIETY DISORDER, UNSPECIFIED 08/29/2017 ROXANE COHEN MD Ot G25.81 RESTLESS LEGS SYNDROME 08/29/2017 ROXANE COHEN MD Ot G89.29 OTHER CHRONIC PAIN 08/29/2017 ROXANE COHEN MD Ot I10 ESSENTIAL (PRIMARY) HYPERTENSION 08/29/2017 ROXANE COHEN MD Ot I25.10 ATHSCL HEART DISEASE OF [place] CORONARY 08/29/2017 ROXANE COHEN MD Ot J43.9 EMPHYSEMA, UNSPECIFIED 08/29/2017 ROXANE COHEN MD J Ot K21.9 GASTRO-ESOPHAGEAL REFLUX DISEASE WITHOUT 08/29/2017 ROXANE COHEN MD Ot M54.40 LUMBAGO WITH SCIATICA, UNSPECIFIED SIDE 08/29/2017 ROXANE COHEN MD, Ot M54.5 LOW BACK PAIN 08/29/2017 ROXANE COHEN MD, Ot W00.0XXA FALL ON SAME LEVEL DUE TO ICE AND SNOW, 08/29/2017 ROXANE COHEN MD Ot Z77.22 CNTCT W AND EXPSR TO ENVIRON TOBACCO SMO 08/29/2017 ROXANE COHEN MD, Ot Z79.82 ORDNANCE TECHNICIAN (CURRENT) USE OF ASPIRIN 08/29/2017 ROXANE COHEN MD, Ot Z80.0 FAMILY HISTORY OF MALIGNANT NEOPLASM OF 08/29/2017 ROXANE COHEN MD, Ot Z80.3 FAMILY HISTORY OF MALIGNANT NEOPLASM OF 08/29/2017 ROXANE COHEN MD, Ot Z90.49 ACQUIRED ABSENCE OF OTHER SPECIFIED PART 08/29/2017 ROXANE COHEN MD, Ot Z91.5 PERSONAL HISTORY OF SELF-HARM 09/02/2017 TIMI MATTSON DO Ot E78.00 PURE HYPERCHOLESTEROLEMIA, UNSPECIFIED 09/02/2017 TIMI MATTSON DO Ot F15.90 OTHER STIMULANT USE, UNSPECIFIED, UNCOMP 09/02/2017 DELTA MATTSON DOA Yash Ot F17.210 NICOTINE DEPENDENCE, CIGARETTES, UNCOMPL 09/02/2017 DELTA MATTSON DOA Yash Ot F32.9 MAJOR DEPRESSIVE DISORDER, SINGLE EPISOD 09/02/2017 TIMI MATTSON DO Ot F41.9 ANXIETY DISORDER, UNSPECIFIED 09/02/2017 SRINIVASAN TOPETE TIMI Yash Ot G25.81 RESTLESS LEGS SYNDROME 09/02/2017 DELTA MATTSON DOA Yash Ot I10 ESSENTIAL (PRIMARY) HYPERTENSION 09/02/2017 TIMI MATTSON DO Ot I25.10 ATHSCL HEART DISEASE OF [place] CORONARY 09/02/2017 DELTA MATTSON DOA Yash Ot J43.9 EMPHYSEMA, UNSPECIFIED 09/02/2017 DELTA MATTSON DOA Yash Ot K21.9 GASTRO-ESOPHAGEAL REFLUX DISEASE WITHOUT 09/02/2017 TIMI MATTSON DO Ot R05 COUGH 09/02/2017 DELTA MATTSON DOA Yash Ot R07.89 OTHER CHEST PAIN 09/02/2017 TIMI MATTSON DO Ot R55 SYNCOPE AND COLLAPSE 09/02/2017 TIMI MATTSON DO Ot Z79.82 SENIOR CARE (CURRENT) USE OF ASPIRIN 09/02/2017 SRINIVASAN DO, TIMI K Ot Z90.49 ACQUIRED ABSENCE OF OTHER SPECIFIED PART 09/02/2017 SRINIVASAN DO, TIMI K Ot Z91.5 PERSONAL HISTORY OF SELF-HARM 09/04/2017 SRINIVASAN DO, TIMI K Ot E78.00 PURE HYPERCHOLESTEROLEMIA, UNSPECIFIED 09/04/2017 SRINIVASAN DO, TIMI K Ot F15.90 OTHER STIMULANT USE, UNSPECIFIED, UNCOMP 09/04/2017 SRINIVASAN DO, TIMI K Ot F17.210 NICOTINE DEPENDENCE, CIGARETTES, UNCOMPL 09/04/2017 SHILOH DO, TIMI K Ot F32.9 MAJOR DEPRESSIVE DISORDER, SINGLE EPISOD 09/04/2017 SRINIVASAN DO, TIMI K Ot F41.9 ANXIETY DISORDER, UNSPECIFIED 09/04/2017 SHILOH DO, TIMI K Ot G25.81 RESTLESS LEGS SYNDROME 09/04/2017 SRINIVASAN DO, TIMI K Ot I10 ESSENTIAL (PRIMARY) HYPERTENSION 09/04/[address] [facility], TIMI K Ot I25.10 ATHSCL HEART DISEASE OF [place] CORONARY 09/04/[address] [facility] TIMI K Ot J43.9 EMPHYSEMA, UNSPECIFIED 09/04/[address] [facility], TIMI K Ot K21.9 GASTRO-ESOPHAGEAL REFLUX DISEASE WITHOUT 09/04/2017 SRINIVASAN DO, TIMI K Ot R05 COUGH 09/04/[address] [facility], TIMI K Ot R07.89 OTHER CHEST PAIN 09/04/[address] [facility], TIMI K Ot R55 SYNCOPE AND COLLAPSE 09/04/[address] [facility] TIMI K Ot Z79.82 ORDNANCE TECHNICIAN (CURRENT) USE OF ASPIRIN 09/04/[address] [facility] TIMI K Ot Z90.49 ACQUIRED ABSENCE OF OTHER SPECIFIED PART 09/04/[address] [facility], TIMI K Ot Z91.5 PERSONAL HISTORY OF SELF-HARM 09/08/2017 SRINIVASAN DO, TIMI K Ot E78.00 PURE HYPERCHOLESTEROLEMIA, UNSPECIFIED 09/08/2017 SRINIVASAN DO, TIMI K Ot F15.90 OTHER STIMULANT USE, UNSPECIFIED, UNCOMP 09/08/2017 SRINIVASAN DO, TIMI K Ot F17.210 NICOTINE DEPENDENCE, CIGARETTES, UNCOMPL 09/08/2017 SRINIVASAN DO, TIMI K Ot F32.9 MAJOR DEPRESSIVE DISORDER, SINGLE EPISOD 09/08/2017 SRINIVASAN DO, TIMI K Ot F41.9 ANXIETY DISORDER, UNSPECIFIED 09/08/2017 SRINIVASAN TOPETE TIMI Yash Ot G25.81 RESTLESS LEGS SYNDROME 09/08/2017 SRINIVASAN TOPETE TIMI K Ot I10 ESSENTIAL (PRIMARY) HYPERTENSION 09/08/2017 SRINIVASAN TOPETE TIMI Yash Ot I25.10 ATHSCL HEART DISEASE OF [place] CORONARY 09/08/2017 SRINIVASAN TOPETE TIMI Yash Ot J43.9 EMPHYSEMA, UNSPECIFIED 09/08/2017 SRINIVASAN TOPETE TIMI Yash Ot K21.9 GASTRO-ESOPHAGEAL REFLUX DISEASE WITHOUT 09/08/2017 SRINIVASAN TIMI TOPETE Ot R05 COUGH 09/08/2017 SRINIVASAN TOPETE TIMI Yash Ot R07.89 OTHER CHEST PAIN 09/08/2017 SRINIVASAN DO TIMI K Ot R55 SYNCOPE AND COLLAPSE 09/08/2017 SRINIVASAN TOPETE TIMI K Ot Z79.82 ORDNANCE TECHNICIAN (CURRENT) USE OF ASPIRIN 09/08/2017 SRINIVASAN TIMI Yash Ot Z90.49 ACQUIRED ABSENCE OF OTHER SPECIFIED PART 09/08/2017 SRINIVASAN DO TIMI Yash Chanel Z91.5 PERSONAL HISTORY OF SELF-HARM Procedures Code Description [place] [address] [place] EXTREMITY JOINT, UPPER RIGHT, W/O CONTRAST 11/21/2013 [facility] SCREEN 11/21/2013 [id number] MRI EXTREMITY JOINT, UPPER RIGHT W & W/O CONTRAST 12/07/2013 [id number] [facility] DRUG SCREEN 12/09/2013 Results Test Result [...] rickettsii IgG antibody assay (units/volume) < <1:16 [place] spotted fever panel < <1:10 Francisella tularensis [...] rickettsii IgG antibody assay (units/volume) < <1:16 [place] spotted fever panel < <1:10 Francisella tularensis [...] NEGATIVE NEGATIVE Urine propoxyphene detection NEGATIVE NEGATIVE PATHOLOGY REPORT - 05/28/17 16:45 . NRG . NRG . NRG . NRG . NRG . NRG . NRG . Comment: NRG . NRG . NRG Automated blood complete blood count (hemogram) panel [...] automated white blood cell (WBC) differential - 09/02/17 15:23 Blood leukocytes automated count (number/volume) 10.9 10*3/uL 4.3-11.0 Blood erythrocytes automated count (number/volume) 4.54 10*6/uL 4.35-5.85 Venous blood hemoglobin measurement (mass/volume) 14.5 g/dL 13.3-17.7 Blood hematocrit (volume fraction) 44 % 40-54 Automated erythrocyte mean corpuscular volume 97 [foz_us] 80-99 Automated erythrocyte mean corpuscular hemoglobin (mass per erythrocyte) 32 pg 25-34 Automated erythrocyte mean corpuscular hemoglobin concentration measurement ( mass/volume) 33 g/dL 32-36 Automated erythrocyte distribution width ratio 13.6 % 10.0-14.5 Automated blood platelet count (count/volume) 319 10*3/uL 130-400 Automated blood platelet mean volume measurement 8.5 [foz_us] 7.4-10.4 Automated blood neutrophils/100 leukocytes 68 % 42-75 Automated blood lymphocytes/100 leukocytes 24 % 12-44 Blood monocytes/100 leukocytes 7 % 0-12 Automated blood eosinophils/100 leukocytes 1 % 0-10 Automated blood basophils/100 leukocytes 0 % 0-10 Blood neutrophils automated count (number/volume) 7.5 10*3 1.8-7.8 Blood lymphocytes automated count (number/volume) 2.6 10*3 1.0-4.0 Blood monocytes automated count (number/volume) 0.8 10*3 0.0-1.0 Automated eosinophil count 0.1 10*3/uL 0.0-0.3 Automated blood basophil count (count/volume) 0.0 10*3/uL 0.0-0.1 PT panel in platelet poor plasma by coagulation assay - 09/02/17 15:23 Prothrombin time (PT) in platelet poor plasma by coagulation assay 14.0 s 12.2-14.7 INR in platelet poor plasma or blood by coagulation assay 1.1 0.8-1.4 Activated partial thromboplastin time (aPTT) in platelet poor plasma bycoagulation assay - 09/02/17 15:23 Activated partial thromboplastin time (aPTT) in platelet poor plasma bycoagulation assay 28 s 24-35 Comprehensive metabolic panel - 09/02/17 15:23 Serum or plasma sodium measurement (moles/volume) 140 mmol/L 135-145 Serum or plasma potassium measurement (moles/volume) 3.8 mmol/L 3.6-5.0 Serum or plasma chloride measurement (moles/volume) 105 mmol/L 98-107 Carbon dioxide 26 mmol/L 21-32 Serum or plasma anion gap determination (moles/volume) 9 mmol/L 5-14 Serum or plasma urea nitrogen measurement (mass/volume) 25 mg/dL 7-18 Serum or plasma creatinine measurement (mass/volume) 0.80 mg/dL 0.60-1.30 Serum or plasma urea nitrogen/creatinine mass ratio 31 NRG Serum or plasma creatinine measurement with calculation of estimated glomerular filtration rate > NRG Serum or plasma glucose measurement (mass/volume) 95 mg/dL 70-105 Serum or plasma calcium measurement (mass/volume) 9.1 mg/dL 8.5-10.1 Serum or plasma total bilirubin measurement (mass/volume) 0.3 mg/dL 0.1-1.0 Serum or plasma alkaline phosphatase measurement (enzymatic activity/volume) 87 U/L 40-136 Serum or plasma aspartate aminotransferase measurement (enzymatic activity/ volume) 14 U/L 5-34 Serum or plasma alanine aminotransferase measurement (enzymatic activity/volume ) 20 U/L 0-55 Serum or plasma protein measurement (mass/volume) 7.3 g/dL 6.4-8.2 Serum or plasma albumin measurement (mass/volume) 3.9 g/dL 3.2-4.5 Magnesium - 09/02/17 15:23 Magnesium 2.1 mg/dL 1.8-2.4 Serum or plasma creatine kinase measurement (enzymatic activity/volume) - 09/02 15:23 Serum or plasma creatine kinase measurement (enzymatic activity/volume) 32 U/L 30-200 Serum or plasma creatine kinase MB measurement (enzymatic activity/volume) - 15:23 Serum or plasma creatine kinase MB measurement (enzymatic activity/volume) 0.5 ng/mL <6.6 Serum or plasma troponin i.cardiac measurement (mass/volume) - 09/02/17 15:23 Serum or plasma troponin i.cardiac measurement (mass/volume) < ng/ mL <0.30 Serum or plasma amylase measurement (enzymatic activity/volume) - 09/02/17 15: 23 Serum or plasma amylase measurement (enzymatic activity/volume) 63 U /L 25-125 Lipase - 09/02/17 15:23 Lipase 42 U/L 8-78 Serum or plasma lithium measurement (moles/volume) - 09/02/17 15:23 BNP level < pg/mL <100.0 Serum or plasma ethanol measurement (mass/volume) - 09/02/17 15:23 Serum or plasma ethanol measurement (mass/volume) < mg/dL <10 Urine drug screening test - 09/02/17 17:25 Urine phencyclidine detection by screening method NEGATIVE [...] Status Pt. Type Provider Facility Loc./Unit Complaint [id number] 12/08/2013 12:44:00 12/08/2013 23:59:59 [facility] Outpatient ROSE KWONG DO [id number] 11/21/2013 13:29:00 11/21/2013 23:59:59 [facility] Outpatient ROSE KWONG DO [id number] 09/20/2013 11:00:00 09/20/2013 23:59:59 [facility] [place] [id number] 01/25/2009 16:24:00 01/25/2009 23:59:59 [facility] Outpatient SOLANGE GONZALEZ APRN [facility] 05/17/2015 13:45:38 ACT Document Registration [id number] 09/02/2017 15:11:00 09/02/2017 17:40:00 DIS Emergency SRINIVASAN TIMI TOPETE [facility] ER CP [id number] 08/29/2017 12:27:00 08/29/2017 16:58:00 DIS Emergency ROXANE COHEN MD [facility] ER BACK PAIN FROM FALL [id number] 08/07/2017 13:24:00 08/07/2017 17:00:00 DIS Emergency FRAN MORFINP [facility] ER LOWER BACK PAIN [id number] 08/01/2017 19:40:00 08/02/2017 12:15:00 DIS Inpatient JOY LANDRUM MD [facility] ICU CHEST PAIN [id number] 07/25/2017 03:04:00 07/25/2017 06:23:00 DIS Emergency SRINIVASAN TIMI TOPETE [facility] ER CP [id number] 07/12/2017 15:37:00 07/12/2017 18:48:00 DIS Emergency ROXANE COHEN MD [facility] ER CP/SOB [id number] 07/03/2017 08:40:00 07/03/2017 23:59:59 [facility] Outpatient ARIADNA DYER MD [facility] RAD CT LUNG SCREENING [id number] 06/29/2017 06:45:00 06/29/2017 15:50:00 DIS Outpatient KEIRY GUIDO MD [facility] CATH ABN STRESS,CVP,SOB,CAD, TOBACCOISM [id number] 06/17/2017 11:58:00 06/17/2017 23:59:59 [facility] Outpatient ARIADNA DYER MD [facility] CARD RO7.9 CHEST PAIN [id number] 05/06/2017 19:01:00 05/06/2017 19:15:00 DIS Emergency ROXANE COHEN MD [facility] ER BACK PAIN [id number] 04/16/2017 16:51:00 04/16/2017 19:21:00 DIS Emergency FRAN MORFIN [facility] ER BACK PAIN [id number] 01/22/2017 21:37:00 01/23/2017 02:08:00 DIS Emergency CORAL NAYAK, KRISTINA Garsia Via [facility] ER DIZZINESS/PT FELL OUTSIDE THE HOSPITAL [id number] 08/10/2016 13:14:00 08/10/2016 15:28:00 DIS Emergency ALBA ROSA APRN Via [facility] ER DIZZINESS [id number] 08/05/2016 13:48:00 08/05/2016 23:59:59 CLS Outpatient CARYN HUERTA MD Via [facility] SDC URINARY RETENTION [id number] 08/03/2016 12:52:00 08/03/2016 14:14:00 DIS Emergency MEREDITH GORDON MD Via [facility] ER FALL [id number] 05/07/2016 01:56:00 05/07/2016 02:50:00 DIS Emergency SRINIVASAN DO, TIMI K Via [facility] ER CHRONIC BACK PAIN [id number] 04/09/2016 02:25:00 04/09/2016 03:01:00 DIS Emergency SRINIVASAN DO, TIMI K Via [facility] ER BACK PAIN [id number] 03/02/2016 16:19:00 03/02/2016 18:05:00 DIS Emergency 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 Via [facility] ER BACK PAIN [id number] 10/08/2015 13:41:00 10/08/2015 23:59:59 CLS Outpatient KACEY BURCH MD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
--- NOTE | 2017-11-30 11:00 | ED Back Pain ---
General Chief Complaint: Back Problems Stated Complaint: LOWER BACK PAIN Nursing Triage Note: c/o low back pain. Symptoms worsened yesterday. States pain radiates down both legs. Hx of chronic low back pain. Nursing Sepsis Screen: No Definite Risk Source of Information: Patient Exam Limitations: No Limitations History of Present Illness Date Seen by Provider: Nov 30, 2017 Time Seen by Provider: 10:45 Initial Comments This 62-year-old gentleman presents to the emergency room with exacerbation of chronic back pain. He has not followed up with his primary care provider recently. He reports need for spine surgery which he cannot afford at this time. He has used steroids with some benefit in the past. He uses hydrocodone and tramadol intermittently for control of the chronic pain. He denies any new bowel or bladder dysfunction or new lower extremity weakness. He does have radiculopathy radiating into both legs frequently. He did have one bout of diarrhea recently which has resolved. Patient also has a painful burn blister on the palm of his right hand. Allergies and Home Medications Allergies Coded Allergies: ibuprofen (Verified Allergy, Unknown, 04/05/15) HYPERTENSION Home Medications Aspirin 81 Mg Tablet.dr, 81 MG PO HS, (Reported) Atorvastatin Calcium 10 Mg Tablet, 10 MG PO HS, (Reported) Carisoprodol 250 Mg Tablet, 250 MG PO Q8H PRN for SPASMS Prescribed by: FRAN MORFIN on 08/07/17 1646 Cyclobenzaprine HCl 10 Mg Tablet, 10 MG PO TID PRN for MUSCLE SPASMS, (Reported) Hydrocodone Bit/Acetaminophen 1 Tab Tab, 1 EACH PO Q6H PRN for BREAKTHROUGH PAIN Prescribed by: ROXANE COHEN on 08/29/17 1600 Isosorbide Mononitrate 30 Mg Tab.er.24h, 30 MG PO DAILY, (Reported) Metoprolol Succinate 25 Mg Tab.er.24h, 25 MG PO DAILY, (Reported) Nitroglycerin 0.4 Mg Tab.subl, 0.4 MG SL UD PRN for CHEST PAIN, (Reported) Prednisone 10 Mg Tab.ds.pk, 10 MG PO UD Prescribed by: FRAN MORFIN on 08/07/17 1651 Prednisone 20 Mg Tab, 20 MG PO DAILY Prescribed by: KRISTINA GOMES on 11/30/17 1108 Tramadol HCl 50 Mg Tablet, 50 MG PO BID PRN for PAIN-MODERATE, (Reported) Tramadol HCl 50 Mg Tablet, 50 MG PO Q6H PRN for PAIN-MODERATE TO SEVERE Prescribed by: KRISTINA GOMES on 11/30/17 1108 Patient Home Medication List Home Medication List Reviewed: Yes Constitutional: no symptoms reported EENTM: no symptoms reported Respiratory: no symptoms reported Cardiovascular: no symptoms reported Gastrointestinal: see HPI Genitourinary: no symptoms reported Musculoskeletal: see HPI Skin: no symptoms reported Psychiatric/Neurological: See HPI Past Rivwtxf-Rkotfi-Qvyuha Hx Patient Social History Alcohol Use: Denies Use Recreational Drug Use: Yes Drug of Choice: XANAX, NARCOTICS, HAS ALSO TESTED + FOR METHAMPHETAMIES Smoking Status: Current Everyday Smoker Type Used: Cigarettes 2nd Hand Smoke Exposure: Yes Recent Foreign Travel: No Contact w/Someone Who Travel: No Recent Infectious Disease Expo: No Recent Hopitalizations: No Immunizations Up To Date Tetanus Booster (TDap): Less than 5yrs PED Vaccines UTD: No Date of Pneumonia Vaccine: May 26, 2017 Date of Influenza Vaccine: May 26, 2017 Seasonal Allergies Seasonal Allergies: No Past Medical History Surgeries: Yes Appendectomy, Ear Surgery, Gallbladder, Orthopedic Respiratory: Yes (PER OLD RECORDS, PT HAS COPD, BUT PT DENIES) Chronic Bronchitis, COPD, Emphysema Cardiac: Yes (MINIMAL, NON-OCCLUSIVE SMALL VESSEL DISEASE, EF 50% PER CATH ) Coronary Artery Disease, High Cholesterol, Hypertension Neurological: Yes (RESTLESS LEG SYNDROME) Reproductive Disorders: No Sexually Transmitted Disease: No HIV/AIDS: No Genitourinary: No Gastrointestinal: Yes (CHRONIC DYSPHAGIA AND HOARSENESS; ESOPHAGEAL STRICTURE) Gastroesophageal Reflux Musculoskeletal: Yes Degenerate Disk Disease, Chronic Back Pain Endocrine: No HEENT: Yes (POOR DENTITION; BMT'S ) Chronic Ear Infection Hearing Impairment: Hard of Hearing Cancer: Yes Skin Did You Recieve Any Treatments: Yes What Type of Treatment Did You: Surgical Intervention Psychosocial: Yes Anxiety, Suicide Attempts, Depression Integumentary: No Blood Disorders: No Adverse Reaction/Blood Tranf: No Family Medical History Cancer 03 FATHER (PROSTATE) 03 MOTHER (BREAST CA ) 09 BROTHER (THROAT/PANCREATIC) 09 SISTER (LIVER) DEAFNESS 03 FATHER 09 BROTHER Family history: Breast disease 03 MOTHER (BREAST CA) History of - respiratory disease Prostate cancer 03 FATHER Stroke 03 MOTHER Visual impairment Cancer Physical Exam Vital Signs Vital Signs - First Documented 11/30/17 11/30/17 10:12 11:24 Temp 97.5 Pulse 82 Resp 16 B/P (MAP) 140/90 (107) Pulse Ox 96 O2 Delivery Room Air Capillary Refill : Less Than 3 Seconds General Appearance: No Apparent Distress, WD/WN, Thin HEENT: Normal ENT Inspection Cardiovascular: Regular Rate, Rhythm, No Edema, No Murmur Respiratory: Lungs Clear, Normal Breath Sounds, No Accessory Muscle Use, No Respiratory Distress Back: Vertebral Tenderness (lumbar spine) Extremity: Normal Inspection, No Pedal Edema Neurologic/Psychiatric: Alert, Oriented x3, No Motor/Sensory Deficits, Normal Mood/Affect, residential aide II-XII Norm as Tested Skin: Normal Color, Warm/Dry, Other Progress/Results/Core Measures My Orders Orders - KRISTINA MONCADA MD Tramadol Tablet (Ultram Tablet) (11/30/17 11:15) Medications Given in ED Vital Signs/I&O 11/30/17 11/30/17 10:12 11:24 Temp 97.5 97.5 Pulse 82 65 Resp 16 B/P (MAP) 140/90 (107) 140/89 (107) Pulse Ox 96 96 O2 Delivery Room Air Blood Pressure Mean: 107 Progress Note : Progress Note Patient was given a dose of Tramadol in the ER. A short term prescription was provided. He was encouraged to follow-up with his PCP for chronic pain management. Departure Impression Primary Impression: Acute exacerbation of chronic low back pain Disposition: 01 HOME, SELF-CARE Condition: Improved Departure-Patient Inst. Decision time for Depature: 11:00 Referrals: NO,LOCAL PHYSICIAN (PCP/Family) Primary Care Physician Patient Instructions: Low Back Pain (DC), MANAGING YOUR CHRONIC PAIN Add. Discharge Instructions: For primary pain control, take Tylenol (acetaminophen) up to 650 mg every 6 hours as needed. Add Ultram (tramadol) for pain not controlled by Tylenol. Follow-up with your primary care provider as soon as possible for further chronic pain management. Return to care if symptoms are worsening. All discharge instructions reviewed with patient and/or family. Voiced understanding. Scripts Tramadol HCl (Ultram) 50 Mg Tablet 50 MG PO Q6H PRN for PAIN-MODERATE TO SEVERE, #20 TAB Prov: KRISTINA MONCADA MD 11/30/17 Prednisone (Prednisone) 20 Mg Tab 20 MG PO DAILY, #4 TAB Prov: KRISTINA MONCDAA MD 11/30/17 KRISTINA MONCADA MD Nov 30, 2017 11:00
[2017-11-30] MEDS ORDERED: PRD20T PO (11:08)
[2017-11-30] MEDS ORDERED: TRAM-42 PO (11:08)
[2017-11-30 11:24] VITALS: BP 140/89
== END 2017-11-30 11:24 | disposition home or self-care (01) ==
LOC: EDUNIT# 09:56 → ER 09:58
DX: M54.5 Low back pain (principal); G89.29 Other chronic pain; F41.9 Anxiety disorder, unspecified; F32.9 Major depressive disorder, single episode, unspecified; K21.9 Gastro-esophageal reflux disease without esophagitis; M47.9 Spondylosis, unspecified; G25.81 Restless legs syndrome; I25.10 Atherosclerotic heart disease of native coronary artery without angina pectoris; E78.00 Pure hypercholesterolemia, unspecified; I10 Essential (primary) hypertension; J43.9 Emphysema, unspecified; F15.90 Other stimulant use, unspecified, uncomplicated; F17.210 Nicotine dependence, cigarettes, uncomplicated; Z91.5 Personal history of self-harm; Z85.828 Personal history of other malignant neoplasm of skin; Z90.49 Acquired absence of other specified parts of digestive tract; Z86.79 Personal history of other diseases of the circulatory system; Z87.19 Personal history of other diseases of the digestive system; Z79.82 Long term (current) use of aspirin; Z88.6 Allergy status to analgesic agent
CPT/HCPCS: 99283

== ENCOUNTER 2018-02-27 13:12 | Emergency (ER) | payer MEDICARE ==
[~2018-02-27] VITALS: Ht 167.6 cm; Wt 59.0 kg
[~2018-02-27 13:12] MED LIST changes: +TRAM-42 PO
[2018-02-27] MEDS ORDERED: HYDROcodone/APAP 5 MG/325 MG (LORTAB) TAB PO ONE (13:45)
[2018-02-27] MEDS ORDERED: ORPHENADRINE 60 MG/2 ML (NORFLEX) AMP IM ONE (13:45)
--- NOTE | 2018-02-27 13:53 | ED Back Pain ---
General Chief Complaint: Back Problems Stated Complaint: LOWER BACK PAIN Nursing Triage Note: PT CO OF LOW BACK PAIN , PT STATES HAS CHRONIC BACK PAIN, STATES HAS HAD SURG IN PAST. RATES PAIN 8/. DENIES TAKING ANY MEDS AT THIS X Nursing Sepsis Screen: No Definite Risk Source of Information: Patient Exam Limitations: No Limitations History of Present Illness Date Seen by Provider: Feb 27, 2018 Time Seen by Provider: 13:49 Initial Comments Patient is a 63-year-old male who presents to the emergency room with low back pain. He states he has chronic low back pain and multiple surgeries on his spine in the past. He reports that for the past week his lower back has been sore and feels like his muscles are tight and has had some tingling in the back of his thighs. He denies recent injury, loss of bowel or bladder, and saddle paresthesia. Location: Lumbar Spine Timing/Duration: 1 Week Severity: Mild Pain/Injury Location: Back Radiation: Upper Legs Modifying Factors: Worse With Movement Associated Symptoms: muscle spasms; No fever, No weakness, No numbness in legs/ feet; tingling in legs/feet (to the back of his thighs bilaterally); No sensory/ motor loss; lower back pain; No loss of bladder control, No loss of bowel control Allergies and Home Medications Allergies Coded Allergies: ibuprofen (Verified Allergy, Unknown, 04/05/15) HYPERTENSION Home Medications No Active Prescriptions or Reported Meds Patient Home Medication List Home Medication List Reviewed: Yes Constitutional: see HPI; No chills, No diaphoresis, No fever EENTM: no symptoms reported Respiratory: see HPI; No dyspnea on exertion, No short of breath, No wheezing Cardiovascular: see HPI; No chest pain, No edema Gastrointestinal: see HPI; No abdominal pain, No constipation, No diarrhea, No dysphagia Genitourinary: see HPI; No decreased output, No discharge Musculoskeletal: see HPI, back pain, muscle pain, muscle stiffness Skin: see HPI; No change in color, No change in hair/nails Psychiatric/Neurological: See HPI; Denies Anxiety, Denies Depressed Past Olqtabg-Xoswha-Neswod Hx Past Med/Social Hx: Reviewed Nursing Past Med/Soc Hx Patient Social History Alcohol Use: Denies Use Recreational Drug Use: Yes Drug of Choice: XANAX, NARCOTICS, HAS ALSO TESTED + FOR METHAMPHETAMIES Smoking Status: Current Everyday Smoker Type Used: Cigarettes 2nd Hand Smoke Exposure: Yes Recent Foreign Travel: No Contact w/Someone Who Travel: No Recent Infectious Disease Expo: No Recent Hopitalizations: No Physical Abuse: No Sexual Abuse: No Immunizations Up To Date Tetanus Booster (TDap): Less than 5yrs PED Vaccines UTD: No Date of Pneumonia Vaccine: May 26, 2017 Date of Influenza Vaccine: May 26, 2017 Seasonal Allergies Seasonal Allergies: No Past Medical History Surgeries: Yes Appendectomy, Ear Surgery, Gallbladder, Orthopedic Respiratory: Yes (PER OLD RECORDS, PT HAS COPD, BUT PT DENIES) Chronic Bronchitis, COPD, Emphysema Cardiac: Yes (MINIMAL, NON-OCCLUSIVE SMALL VESSEL DISEASE, EF 50% PER CATH ) Coronary Artery Disease, High Cholesterol, Hypertension Neurological: Yes (RESTLESS LEG SYNDROME) Reproductive Disorders: No Sexually Transmitted Disease: No HIV/AIDS: No Genitourinary: No Gastrointestinal: Yes (CHRONIC DYSPHAGIA AND HOARSENESS; ESOPHAGEAL STRICTURE) Gastroesophageal Reflux Musculoskeletal: Yes Degenerate Disk Disease, Chronic Back Pain Endocrine: No HEENT: Yes (POOR DENTITION; BMT'S ) Chronic Ear Infection Hearing Impairment: Hard of Hearing Cancer: Yes Skin Did You Recieve Any Treatments: Yes What Type of Treatment Did You: Surgical Intervention Psychosocial: Yes Anxiety, Suicide Attempts, Depression Nursing Suicide Risk Score: 0 Integumentary: No Blood Disorders: No Adverse Reaction/Blood Tranf: No Family Medical History Reviewed Nursing Family Hx Cancer 03 FATHER (PROSTATE) 03 MOTHER (BREAST CA ) 09 BROTHER (THROAT/PANCREATIC) 09 SISTER (LIVER) DEAFNESS 03 FATHER 09 BROTHER Family history: Breast disease 03 MOTHER (BREAST CA) History of - respiratory disease Prostate cancer 03 FATHER Stroke 03 MOTHER Visual impairment Cancer Physical Exam Vital Signs Vital Signs - First Documented 02/27/18 13:15 Temp 97.7 Pulse 68 Resp 18 B/P (MAP) 135/90 (105) Pulse Ox 98 Capillary Refill : Less Than 3 Seconds Height, Weight, BMI Height: 5'6.00" Weight: 130lbs. 0.0oz. 58.378892dh; 22.0 BMI Method:Stated General Appearance: No Apparent Distress, WD/WN HEENT: PERRL/EOMI, TMs Normal, Normal ENT Inspection, Pharynx Normal Neck: Full Range of Motion, Normal Inspection, Non Tender, Supple Cardiovascular: Regular Rate, Rhythm, No Edema, No Gallop, No JVD, No Murmur, Normal Peripheral Pulses Respiratory: Chest Non Tender, Lungs Clear, Normal Breath Sounds, No Accessory Muscle Use, No Respiratory Distress Gastrointestinal: Normal Bowel Sounds, No Organomegaly, No Pulsatile Mass, Non Tender, Soft Back: Normal Inspection, No CVA Tenderness, Vertebral Tenderness (lumbar vertebral tenderness on palpation.) Extremity: Normal Capillary Refill, Normal Inspection, Normal Range of Motion, Non Tender, No Calf Tenderness Neurologic/Psychiatric: Alert, Oriented x3, No Motor/Sensory Deficits Skin: Normal Color, Warm/Dry Lymphatic: No Adenopathy Progress/Results/Core Measures Results/Orders My Orders Orders - BERNOT,DONTA Orphenadrine Injection (Norflex Injectio (02/27/18 13:45) Hydrocodone/Apap 5/325 Tablet (Lortab 5 (02/27/18 13:45) Im/Sub-Q Injection Non-Ab Ed (02/27/18 ) Medications Given in ED Vital Signs/I&O 02/27/18 02/27/18 13:15 15:15 Temp 97.7 97.7 Pulse 68 68 Resp 18 18 B/P (MAP) 135/90 (105) 135/90 (105) Pulse Ox 98 98 Blood Pressure Mean: 105 Progress Progress Note : Time: 14:53 Progress Note Patient has had mild relief of pain but is not completely gone with the hydrocodone and Norflex. He is requesting a shot of fentanyl which she was informed that I will not be ordering for him for his pain control. He sees Dr. Alcocer for his primary care physician and has agreed to make an appointment Thursday for follow-up. A prescription for prednisone 20 mg daily for 4 days was given in the emergency room. Departure Impression Primary Impression: Acute exacerbation of chronic low back pain Disposition: HOME, SELF-CARE Condition: Stable/Unchanged Departure-Patient Inst. Decision time for Depature: 14:57 Referrals: MIGUEL ALCOCER,LOCAL PHYSICIAN (PCP) Primary Care Physician Patient Instructions: MANAGING YOUR CHRONIC PAIN, Low Back Pain (DC) Add. Discharge Instructions: Take medications as directed. You may use Tylenol 650 mg every 6 hours as needed for additional pain relief. Follow-up with Dr. Alcocer within 1 week. Call first thing Thursday for an appointment time. Return back to the emergency room for any concerns as needed. All discharge instructions reviewed with patient and/or family. Voiced understanding. Scripts No Active Prescriptions or Reported Meds DONTA MALONEY Feb 27, 2018 13:53
[2018-02-27 15:15] VITALS: BP 135/90
--- OUTSIDE RECORDS SUMMARY | 2018-02-28 16:20 | XMS REPORT | Clinical Summary ---
Author Author [facility] Organization [facility] Address Unknown Phone Unavailable Care Team Providers Care Pharmacology Teacher Name Role Phone Unverified, Unverified Md PCP Unavailable Source Comments Some departments are not documenting in the electronic medical record. If you do not see the information that you expected, contact Release of Information in the Health Information Management department at [phone] for further assistance in locating additional records.[facility] Allergies Not on File Current Medications Not [...] VACCINE 02/14/1972 COLORECTAL CANCER 2005 SCREENING SHINGLES RECOMBINANT 2005 VACCINE (1 of 2) INFLUENZA VACCINE 05/17/2018 Results Not on filefrom Last 3 Months
--- OUTSIDE RECORDS SUMMARY | 2018-02-28 16:21 | XMS REPORT ---
Author Author ARIADNA ALAS Organization [facility] Address [address] 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 06392209 ALLERGIES No Information ENCOUNTERS Encounter Location Date Diagnosis [place] [address] [address] Aug, Degenerative disc disease, lumbar M51.36 ; Blurry vision, bilateral H53.8 ; Bilateral hearing loss, unspecified hearing loss type H91.93 and Essential hypertension I10 [place] [id number] [place] [address] 31619- 0621 Jul, [place] [address] [place] [id number] [place] [address] 99547- 0312 Jul, [place] [address] 61925- 4852 Jun, [place] [address] [place] [id number] [place] [address] 24639- 2789 Jun, Other chronic pain G89.29 [facility] [address] 7[address]- 7524 Jun, [facility] [address] [place] [id number] [place] [address] 59071- 8620 May, 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 [facility] [address] [place] [id number] [place] [address] 90258- 7695 May, Personal history of nicotine dependence Z87.891 ; Nicotine dependence, uncomplicated, unspecified nicotine product type F17.200 ; Chest pain in adult R07.9 ; Other chronic pain G89.29 ; Encounter for immunization Z23 and Chronic dermatitis L30.9 [facility] [address] 43[address]- 0894 May, [facility] [address] 58163 -1652 Apr, Other eczema L30.8 [place] [address] 72066- 8516 Aug, Low back pain M54.5 ; Other chronic pain G89.29 and Lumbosacral radiculopathy M54.17 [facility] [address] 42705 -3382 Jul, Acute left-sided low back pain without sciatica M54.5 and Drug-seeking behavior Z76.5 [facility] [address] 70871 -3638 Jul, Urinary retention R33.9 [facility] [address] [place] [id number] [place] [address] 94388- 2212 Mar, [place] [address] [place] [id number] [place] [address] 73309- 2225 Nov, [place] [address] [place] [id number] [place] [address] 01445- 6706 Nov, [place] [address] 65002- 4798 December, [facility] [address] [place] [id number] [place] [address] 36286- 9353 December, [facility] [address] 40678- 6252 Nov, [facility] [place] [facility] [address] [id number] [place] [address]- 2006 Nov, [facility] [place] [facility] [address] [id number] [place] [address]- 4321 Nov, [facility] [place] [facility] [address] [id number] [place] [address]- 1678 Nov, [facility] [place] [facility] [address] [id number] [place] [address]- 6843 Nov, [facility] [place] [facility] [address] [id number] [place] [address]- 5826 Nov, [facility] [place] [facility] [address] [id number] [place] [address]- 3101 Nov, [facility] [place] [facility] [address] [id number] [place] [address]- 4081 Nov, [facility] [place] [facility] [address] [id number] [place] [address]- 2272 Nov, [facility] [place] [facility] [address] [id number] [place] [address]- 5737 Nov, [facility] [place] [facility] [address] [id number] [place] [address]- 9493 Oct, [facility] [place] [facility] [address] [id number] [place] [address]- 2548 Oct, [facility] [place] [facility] [address] [id number] [place] [address]- 8084 Sep, [facility] [place] [facility] [address] [id number] [place] [address]- 1845 Sep, [facility] [place] [facility] [address] [id number] [place] [address]- 6804 Jul, [facility] [place] [facility] [address] [id number] [place] [address]- 1271 Jul, [facility] [place] [facility] [address] [facility] [id number] [place] [address]- 5406 Jul, [facility] [address] [facility] [id number], [place] [address]- 7246 Jul, [facility] [address] [facility] [id number], [place] [address]- 3223 Jan, [facility] [address] [facility] [id number], [place] [address]- 5001 Nov, IMMUNIZATIONS No Known Immunizations SOCIAL HISTORY Never Assessed REASON FOR VISIT Lab Results PLAN OF CARE VITAL SIGNS MEDICATIONS Medication Instructions Dosage Frequency Start Date End Date Duration Status Fluconazole 150 MG Orally Once a day 1 tablet 24h May, Jun, 28 days Active RESULTS No Results PROCEDURES No Known procedures INSTRUCTIONS MEDICATIONS ADMINISTERED No Known Medications MEDICAL (GENERAL) HISTORY Type Description Date Medical History hypertension Medical History skin cancer Surgical History back surgery 2011 Surgical History back surgery 2013 Surgical History gallbladder 2013 Surgical History carpal tunnel left Surgical History rotator cuff right Surgical History skin cancer removed on right ear and bottom lip Surgical History neck surgery x 3 Surgical History appendectomy 2000 Hospitalization History Surgery(s) Hospitalization History stomach 2004
--- OUTSIDE RECORDS SUMMARY | 2018-02-28 16:21 | XMS REPORT ---
Author Author ARIADNA ALAS Organization [facility] Address [address] 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 42158966 ALLERGIES Substance Reaction Event Type Date Status Ibuprofen elevated blood pressure Drug Allergy May, Active ENCOUNTERS Encounter Location Date Diagnosis [place] [address] [address] Aug, Degenerative disc disease, lumbar M51.36 ; Blurry vision, bilateral H53.8 ; Bilateral hearing loss, unspecified hearing loss type H91.93 and Essential hypertension I10 [facility] [address] [place] [id number] [place] [address] 21500- 6102 Jul, [place] [address] [address] [place] [id number] [place] [address] 99546- 4861 Jul, [facility] [address] [place] [id number] [place] [address] 64818- 9775 Jun, [facility] [address] 81536- 4777 Jun, Other chronic pain G89.29 [facility] [address] [place] [id number] [place] [address] 82511- 0687 Jun, [facility] [address] 31318- 5798 May, 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 [facility] [address] [place] [id number] [place] [address] 95043- 3145 May, Personal history of nicotine dependence Z87.891 ; Nicotine dependence, uncomplicated, unspecified nicotine product type F17.200 ; Chest pain in adult R07.9 ; Other chronic pain G89.29 ; Encounter for immunization Z23 and Chronic dermatitis L30.9 [facility] [address] 9[address]- 1217 May, [facility] [address] 81271 -0863 Apr, Other eczema L30.8 [place] [address] 17139- 4970 Aug, Low back pain M54.5 ; Other chronic pain G89.29 and Lumbosacral radiculopathy M54.17 [facility] [address] 81130 -1508 Jul, Acute left-sided low back pain without sciatica M54.5 and Drug-seeking behavior Z76.5 [facility] [address] 48390 -3026 Jul, Urinary retention R33.9 [place] [address] 70629- 2259 Mar, [place] [address] 48221- 8900 Nov, [facility] [address] 35604- 5723 Nov, [place] [address] 18667- 2546 December, [facility] [address] 27783- 0796 December, [facility] [address] [place] [id number] [place] [address]- 1171 Nov, [facility] [place] [facility] [address] [id number] [place] [address]- 6134 Nov, [facility] [place] [facility] [address] [id number] [place] [address]- 3040 Nov, [facility] [place] [facility] [address] [id number] [place] [address]- 8577 Nov, [facility] [place] [facility] [address] [id number] [place] [address]- 5898 Nov, [facility] [place] [facility] [address] [id number] [place] [address]- 7486 Nov, [facility] [place] [facility] [address] [id number] [place] [address]- 1066 Nov, [facility] [place] [facility] [address] [id number] [place] [address]- 6873 Nov, [facility] [place] [facility] [address] [id number] [place] [address]- 8239 Nov, [facility] [place] [facility] [address] [id number] [place] [address]- 4432 Nov, [facility] [place] [facility] [address] [id number] [place] [address]- 0040 Oct, [facility] [place] [facility] [address] [id number] [place] [address]- 8790 Oct, [facility] [place] [facility] [address] [id number] [place] [address]- 3219 Sep, [facility] [place] [facility] [address] [id number] [place] [address]- 5552 Sep, [facility] [place] [facility] [address] [id number] [place] [address]- 3924 Jul, [facility] [place] [facility] [address] [id number] [place] [address]- 2561 Jul, [facility] [address] [facility] [id number], [place] [address]- 9853 Jul, [facility] [address] [facility] [id number], [place] [address]- 9796 Jul, [facility] [address] [facility] [id number], [place] [address]- 5184 Jan, [facility] [address] [facility] [id number], [place] [address]- 6686 Nov, IMMUNIZATIONS Vaccine Route Administration Date Status FLUARIX QUAD (3 AND UP) 2016 IM Intramuscular May 28, 2017 Administered PPSV23 (PNEUMOVAX) IM Intramuscular May 28, 2017 Administered SOCIAL HISTORY Never Assessed REASON FOR VISIT Establish Care---DBennettRN, chronic low back pain, worsened x 2 months PLAN OF CARE Activity Details Follow Up 4 Weeks Reason:FU test results VITAL SIGNS Height 66 in 2017-05-28 Weight 132 lbs 2017-05-28 Temperature 98.4 degrees Fahrenheit 2017-05-28 Heart Rate 70 bpm 2017-05-28 Respiratory Rate 20 2017-05-28 BMI 21.30 kg/m2 2017-05-28 Blood pressure systolic 144 mmHg 2017-05-28 Blood pressure diastolic 92 mmHg 2017-05-28 MEDICATIONS Medication Instructions Dosage Frequency Start Date End Date Duration Status Tramadol HCl 50 mg Orally 2 times a day 1 tablet as needed 12h May, Aug, 28 days Active Cyclobenzaprine HCl 10 mg Orally Three times a day 1 tablet as needed 8h 12 May, 2017 Aug, 30 days Active Flexeril 10 mg Orally Three times a day 1 tablet as needed 8h 12 May, 2017 Aug, 30 days Active RESULTS No Results PROCEDURES Procedure Date Ordered Result Body Site [facility] VISIT ESTABLISHED PATIENT May 28, 2017 BIOPSY SKIN LESION (SINGLE) 2017-05-28 N/A Counseling visit to discuss need for lung cancer screening using low-dose CT scan New Pt May 28, 2017 LAB NOT BILLED BY [facility] May 28, 2017 IMMUNIZATION ADMIN, EACH ADD (please include units) May 28, 2017 BIOPSY OF SKIN LESION May 28, 2017 PPSV23 (PNEUMOVAX) May 28, 2017 FLUARIX QUAD (3 & UP)--2014May 28, 2017 SINGLE IMMUNIZATION ADMIN May 28, 2017 ADMN PNEUMCOC VAC NO FEE SCHED DAY May 28, 2017 INSTRUCTIONS MEDICATIONS ADMINISTERED No Known Medications MEDICAL (GENERAL) HISTORY Type Description Date Medical History hypertension Medical History skin cancer Surgical History back surgery 2011 Surgical History back surgery 2014 Surgical History gallbladder 2014 Surgical History carpal tunnel left Surgical History rotator cuff right Surgical History skin cancer removed on right ear and bottom lip Surgical History neck surgery x 3 Surgical History appendectomy 2000 Hospitalization History Surgery(s) Hospitalization History stomach 2004
--- OUTSIDE RECORDS SUMMARY | 2018-02-28 16:29 | XMS REPORT ---
Author Author ARIADNA ALAS Organization [facility] Address [address] 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 24243569 ALLERGIES No Information ENCOUNTERS Encounter Location Date Diagnosis [place] [address] [address] Aug, Degenerative disc disease, lumbar M51.36 ; Blurry vision, bilateral H53.8 ; Bilateral hearing loss, unspecified hearing loss type H91.93 and Essential hypertension I10 [place] [address] [place] [id number] [place] [address] 64548- 3383 Jul, [place] [address] [address] [place] [id number] [place] [address] 80996- 7095 Jul, [place] [address] 74719- 0454 Jun, [place] [address] [place] [id number] [place] [address] 62639- 7725 Jun, Other chronic pain G89.29 [facility] [address] 11045- 8132 Jun, [facility] [address] [place] [id number] [place] [address] 13043- 0210 May, 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 [facility] [address] [place] [id number] [place] [address] 85806- 5229 May, Personal history of nicotine dependence Z87.891 ; Nicotine dependence, uncomplicated, unspecified nicotine product type F17.200 ; Chest pain in adult R07.9 ; Other chronic pain G89.29 ; Encounter for immunization Z23 and Chronic dermatitis L30.9 [facility] [address] 28559- 7422 May, [facility] [address] [address] -8109 Apr, Other eczema L30.8 [place] [address] 32199- 2391 Aug, Low back pain M54.5 ; Other chronic pain G89.29 and Lumbosacral radiculopathy M54.17 [facility] [address] 70308 -2562 Jul, Acute left-sided low back pain without sciatica M54.5 and Drug-seeking behavior Z76.5 [facility] [address] 02635 -6156 Jul, Urinary retention R33.9 [facility] [address] [place] [id number] [place] [address] 73504- 7007 Mar, [place] [address] [place] [id number] [place] [address] 81693- 0260 Nov, [place] [address] [place] [id number] [place] [address] 19544- 5063 Nov, [place] [address] 16036- 1006 December, [facility] [address] [place] [id number] [place] [address] 44635- 1826 December, [facility] [address] 10384- 8356 Nov, [facility] [place] [facility] [address] [id number] [place] [address]- 1720 Nov, [facility] [place] [facility] [address] [id number] [place] [address]- 3511 Nov, [facility] [place] [facility] [address] [id number] [place] [address]- 8698 Nov, [facility] [place] [facility] [address] [id number] [place] [address]- 9443 Nov, [facility] [place] [facility] [address] [id number] [place] [address]- 2543 Nov, [facility] [place] [facility] [address] [id number] [place] [address]- 8682 Nov, [facility] [place] [facility] [address] [id number] [place] [address]- 7045 Nov, [facility] [place] [facility] [address] [id number] [place] [address]- 4408 Nov, [facility] [place] [facility] [address] [id number] [place] [address]- 8656 Nov, [facility] [place] [facility] [address] [id number] [place] [address]- 6826 Oct, [facility] [place] [facility] [address] [id number] [place] [address]- 8740 Oct, [facility] [place] [facility] [address] [id number] [place] [address]- 4316 Sep, [facility] [place] [facility] [address] [id number] [place] [address]- 9948 Sep, [facility] [place] [facility] [address] [id number] [place] [address]- 7342 Jul, [facility] [place] [facility] [address] [id number] [place] [address]- 8504 Jul, [facility] [place] [facility] [address] [facility] [id number] [place]- 5395 18 Jul, 2012 [facility] [address] [facility] [id number], [place] [address]- 7367 Jul, [facility] [address] [facility] [id number][place] [address]- 7270 Jan, [facility] [address] [facility] [id number][place] [address]- 3616 Nov, IMMUNIZATIONS No Known Immunizations SOCIAL HISTORY Never Assessed REASON FOR VISIT Requests return call PLAN OF CARE VITAL SIGNS MEDICATIONS No Known Medications RESULTS No Results PROCEDURES No Known procedures [...] neck surgery x 3 Surgical History appendectomy 1999 Hospitalization History Surgery(s) Hospitalization History stomach 2004
--- OUTSIDE RECORDS SUMMARY | 2018-02-28 16:29 | XMS REPORT ---
Author Author ARIADNA ALAS Organization [facility] Address [address] 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 04953716 ALLERGIES No Information ENCOUNTERS Encounter Location Date Diagnosis [place] [address] [address] Aug, Degenerative disc disease, lumbar M51.36 ; Blurry vision, bilateral H53.8 ; Bilateral hearing loss, unspecified hearing loss type H91.93 and Essential hypertension I10 [place] [address] [place] [id number] [place] [address] 43128- 4225 Jul, [place] [address] [place] [id number] [place] [address] 47678- 2926 Jul, [place] [address] 86333- 8377 Jun, [place] [address] [place] [id number] [place] [address] 16164- 8348 Jun, Other chronic pain G89.29 [facility] [address] 81831- 6172 Jun, [facility] [address] [place] [id number] [place] [address] 06548- 4815 May, 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 [facility] [address] [place] [id number] [place] [address] 26647- 5276 May, Personal history of nicotine dependence Z87.891 ; Nicotine dependence, uncomplicated, unspecified nicotine product type F17.200 ; Chest pain in adult R07.9 ; Other chronic pain G89.29 ; Encounter for immunization Z23 and Chronic dermatitis L30.9 [facility] [address] 57963- 2537 May, [facility] [address] 34274 -3470 Apr, Other eczema L30.8 [place] [address] 45412- 5459 Aug, Low back pain M54.5 ; Other chronic pain G89.29 and Lumbosacral radiculopathy M54.17 [facility] [address] 734[address] -5671 Jul, Acute left-sided low back pain without sciatica M54.5 and Drug-seeking behavior Z76.5 [facility] [address] 35789 -9233 Jul, Urinary retention R33.9 [facility] [address] [place] [id number] [place] [address] 14164- 3011 Mar, [place] [address] [place] [id number] [place] [address] 01069- 3870 Nov, [place] [address] [place] [id number] [place] [address] 58387- 0189 Nov, [place] [address] 00480- 8977 December, [facility] [address] [place] [id number] [place] [address] 13913- 5522 December, [facility] [address] 14051- 0908 Nov, [facility] [place] [facility] [address] [id number] [place] [address]- 5239 Nov, [facility] [place] [facility] [address] [id number] [place] [address]- 3313 Nov, [facility] [place] [facility] [address] [id number] [place] [address]- 0650 Nov, [facility] [place] [facility] [address] [id number] [place] [address]- 1480 Nov, [facility] [place] [facility] [address] [id number] [place] [address]- 2783 Nov, [facility] [place] [facility] [address] [id number] [place] [address]- 4630 Nov, [facility] [place] [facility] [address] [id number] [place] [address]- 4461 Nov, [facility] [place] [facility] [address] [id number] [place] [address]- 2730 Nov, [facility] [place] [facility] [address] [id number] [place] [address]- 5080 Nov, [facility] [place] [facility] [address] [id number] [place] [address]- 4291 Oct, [facility] [place] [facility] [address] [id number] [place] [address]- 7903 Oct, [facility] [place] [facility] [address] [id number] [place] [address]- 1749 Sep, [facility] [place] [facility] [address] [id number] [place] [address]- 4203 Sep, [facility] [place] [facility] [address] [id number] [place] [address]- 7621 Jul, [facility] [place] [facility] [address] [id number] [place] [address]- 2459 Jul, [facility] [place] [facility] [address] [facility] [id number] [place] [address]- 1383 Jul, [facility] [address] [facility] [id number], [place] [address]- 5450 Jul, [facility] [address] [facility] [id number][place]- 9751 Jan, [facility] [address] [facility] [id number][place] [address]- 4084 Nov, IMMUNIZATIONS No Known Immunizations SOCIAL HISTORY Never Assessed REASON FOR VISIT CT results PLAN OF CARE VITAL SIGNS MEDICATIONS No [...]
--- OUTSIDE RECORDS SUMMARY | 2018-02-28 16:38 | XMS REPORT ---
Author Author ARIADNA ALAS Organization [facility] Address [address] 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 98572312 ALLERGIES No Information ENCOUNTERS Encounter Location Date Diagnosis [place] [id number] [address] Aug, Degenerative disc disease, lumbar M51.36 ; Blurry vision, bilateral H53.8 ; Bilateral hearing loss, unspecified hearing loss type H91.93 and Essential hypertension I10 [place] [address] [place] [id number] [place] [address]50- [address] Jul, [place] [address] [id number] [place] [address] 25205- 9714 Jul, [place] [address] 28068- 5184 Jun, [place] [address] [place] [id number] [place] [address] 63499- 5060 Jun, Other chronic pain G89.29 [facility] [address] [address]- 4361 Jun, [facility] [address] [place] [id number] [place] [address] 58292- 9072 May, 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 [facility] [address] [id number] [place] [address] 80967- 7896 May, Personal history of nicotine dependence Z87.891 ; Nicotine dependence, uncomplicated, unspecified nicotine product type F17.200 ; Chest pain in adult R07.9 ; Other chronic pain G89.29 ; Encounter for immunization Z23 and Chronic dermatitis L30.9 [facility] [address] [address]- [address]88 May, [facility] [address] 24[address]79 Apr, Other eczema L30.8 [place] [address] 30512- 2538 Aug, Low back pain M54.5 ; Other chronic pain G89.29 and Lumbosacral radiculopathy M54.17 [facility] [address] 24[address]2635 Jul, Acute left-sided low back pain without sciatica M54.5 and Drug-seeking behavior Z76.5 [facility] [address] 25083 [address] Jul, Urinary retention R33.9 [facility] [address] [place] [id number] [place] [address] 87702- 3283 Mar, [place] [address] [id number] [place] [address] 32624- 1793 Nov, [place] [address] [place] [id number] [place] [address] 93369- 1305 Nov, [place] [address] 41392- 7291 December, [facility] [address] [place] [id number] [place] [address] 06090- 9380 December, [facility] [address] 09189- 9096 Nov, [facility] [place] [facility] [address] [id number] [place] [address]- 3206 Nov, [facility] [place] [facility] [address] [id number] [place] [address]- 6846 Nov, [facility] [place] [facility] [address] [id number] [place] [address]- 5184 Nov, [facility] [place] [facility] [address] [id number] [place] [address]- 0293 Nov, [facility] [place] [facility] [address] [id number] [place] [address]- 1342 Nov, [facility] [place] [facility] [address] [id number] [place] [address]- 4164 Nov, [facility] [place] [facility] [address] [id number] [place] [address]- 6812 Nov, [facility] [place] [facility] [address] [id number] [place] [address]- 5937 Nov, [facility] [place] [facility] [address] [id number] [place] [address]- 1180 Nov, [facility] [place] [facility] [address] [id number] [place] [address]- 5180 Oct, [facility] [place] [facility] [address] [id number] [place] [address]- 0563 Oct, [facility] [place] [facility] [address] [id number] [place] [address]- 5245 Sep, [facility] [place] [facility] [address] [id number] [place] [address]- 4702 Sep, [facility] [place] [facility] [address] [id number] [place] [address]- 9761 Jul, [facility] [place] [facility] [address] [id number] [place] [address]- 1009 Jul, [facility] [place] [facility] [address] [facility] [id number] [place] [address]- 3756 18 Jul, 2012 [facility] [address] [facility] [id number], [place] [address]- 6122 Jul, [facility] [address] [facility] [id number], [place] [address]- 6334 Jan, [facility] [address] [facility] [id number] 3061 Nov, IMMUNIZATIONS No Known Immunizations SOCIAL HISTORY Never Assessed REASON FOR VISIT Schedule appt PLAN OF CARE VITAL SIGNS MEDICATIONS No [...]
--- OUTSIDE RECORDS SUMMARY | 2018-02-28 16:38 | XMS REPORT ---
Author Author ARIADNA ALAS Organization [facility] Address [address] 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 12138818 ALLERGIES Substance Reaction Event Type Date Status Ibuprofen elevated blood pressure Drug Allergy May, Active ENCOUNTERS Encounter Location Date Diagnosis [place] [address] [address] Aug, Degenerative disc disease, lumbar M51.36 ; Blurry vision, bilateral H53.8 ; Bilateral hearing loss, unspecified hearing loss type H91.93 and Essential hypertension I10 [facility] [address] [place] [id number] [place] [address] 24031- 0108 Jul, [place] [address] [place] [id number] [place] [address] 91646- 0658 Jul, [facility] [address] [place] [id number] [place] [address] 35247- 1624 Jun, [facility] [address] 76466- 3118 Jun, Other chronic pain G89.29 [facility] [address] [place] [id number] [place] [address] 93798- 1289 Jun, [facility] [address] 38033- 5547 May, 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 [facility] [address] [place] [id number] [place] [address] 44675- 5323 May, Personal history of nicotine dependence Z87.891 ; Nicotine dependence, uncomplicated, unspecified nicotine product type F17.200 ; Chest pain in adult R07.9 ; Other chronic pain G89.29 ; Encounter for immunization Z23 and Chronic dermatitis L30.9 [facility] [address] 21844- 5622 May, [facility] [address] [address] -3244 Apr, Other eczema L30.8 [place] [address] 86807- 2617 Aug, Low back pain M54.5 ; Other chronic pain G89.29 and Lumbosacral radiculopathy M54.17 [facility] [address] 32315 -1140 Jul, Acute left-sided low back pain without sciatica M54.5 and Drug-seeking behavior Z76.5 [facility] [address] 79838 -7878 Jul, Urinary retention R33.9 [place] [address] 48392- 0199 Mar, [place] [address] 43089- 8944 Nov, [facility] [address] 66359- 2391 Nov, [place] [address] 69794- 7598 December, [facility] [address] 69139- 8434 December, [facility] [address] [place] [address] [place] [address]- 6249 Nov, [facility] [place] [facility] [address] [id number] [place] [address]- 2689 Nov, [facility] [place] [facility] [address] [id number] [place] [address]- 1492 Nov, [facility] [place] [facility] [address] [id number] [place] [address]- 7003 Nov, [facility] [place] [facility] [address] [id number] [place] [address]- 7475 Nov, [facility] [place] [facility] [address] [id number] [place] [address]- 8960 Nov, [facility] [place] [facility] [address] [id number] [place] [address]- 9316 Nov, [facility] [place] [facility] [address] [id number] [place] [address]- 7959 Nov, [facility] [place] [facility] [address] [id number] [place] [address]- 2054 Nov, [facility] [place] [facility] [address] [id number] [place] [address]- 9410 Nov, [facility] [place] [facility] [address] [id number] [place] [address]- 9714 Oct, [facility] [place] [facility] [address] [id number] [place] [address]- 5403 Oct, [facility] [place] [facility] [address] [id number] [place] [address]- 4261 Sep, [facility] [place] [facility] [address] [id number] [place] [address]- 3311 Sep, [facility] [place] [facility] [address] [id number] [place] [address]- 7186 Jul, [facility] [place] [facility] [address] [id number] [place] [address]- 0400 Jul, [facility] [address] [facility] [id number], [place] [address]- 2226 Jul, [facility] [address] [facility] [id number], [place] [address]- 6836 Jul, [facility] [address] [facility] [id number], [place] [address]- 5726 Jan, [facility] [address] [facility] [id number], [place] [address]- 9206 Nov, IMMUNIZATIONS No Known Immunizations SOCIAL HISTORY Never Assessed REASON FOR VISIT PMH obtained. Luis Carlos RN PLAN OF CARE VITAL SIGNS MEDICATIONS No Known Medications RESULTS No Results PROCEDURES No Known procedures INSTRUCTIONS MEDICATIONS ADMINISTERED No Known Medications MEDICAL (GENERAL) HISTORY Type Description Date Medical History hypertension Medical History skin cancer Surgical History back surgery 2011 Surgical History back surgery 2013 Surgical History gallbladder 2014 Surgical History carpal tunnel left Surgical History rotator cuff right Surgical History skin cancer removed on right ear and bottom lip Surgical History neck surgery x 3 Surgical History appendectomy 2000 Hospitalization History Surgery(s) Hospitalization History stomach 2004
--- OUTSIDE RECORDS SUMMARY | 2018-02-28 16:42 | XMS REPORT ---
Author Author ARIADNA ALAS Organization [facility] Address [address] 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 68398590 ALLERGIES No Information ENCOUNTERS Encounter Location Date Diagnosis [place] [address] [address]- [address] Aug, Degenerative disc disease, lumbar M51.36 ; Blurry vision, bilateral H53.8 ; Bilateral hearing loss, unspecified hearing loss type H91.93 and Essential hypertension I10 [place] [address] [place] [id number] [place] [address] 13221- 2301 Jul, [place] [address] [place] [id number] [place] [address] 62497- 7385 Jul, [place] [address] 02473- 6052 Jun, [place] [address] [place] [id number] [place] [address] 76757- 0353 Jun, Other chronic pain G89.29 [facility] [address] 38237- 4989 Jun, [facility] [address] [place] [id number] [place] [address] 65732- 1262 May, 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 [facility] [address] [place] [id number] [place] [address] 57452- 4799 May, Personal history of nicotine dependence Z87.891 ; Nicotine dependence, uncomplicated, unspecified nicotine product type F17.200 ; Chest pain in adult R07.9 ; Other chronic pain G89.29 ; Encounter for immunization Z23 and Chronic dermatitis L30.9 [facility] [address] 54003- 6338 May, [facility] [address] 19720 -0296 Apr, Other eczema L30.8 [place] [address] 64653- 1128 Aug, Low back pain M54.5 ; Other chronic pain G89.29 and Lumbosacral radiculopathy M54.17 [facility] [address] 66800 -0175 Jul, Acute left-sided low back pain without sciatica M54.5 and Drug-seeking behavior Z76.5 [facility] [address] 12954 -7959 Jul, Urinary retention R33.9 [facility] [address] [place] [id number] [place] [address] 81691- 0022 Mar, [place] [address] [place] [id number] [place] [address] 31514- 2631 Nov, [place] [address] [place] [id number] [place] [address] 56082- 3453 Nov, [place] [address] 07409- 7053 December, [facility] [address] [place] [id number] [place] [address] 83931- 4677 December, [facility] [address] 84143- 0646 Nov, [facility] [place] [facility] [address] [id number] [place] [address]- 2821 Nov, [facility] [place] [facility] [address] [id number] [place] [address]- 0919 Nov, [facility] [place] [facility] [address] [id number] [place] [address]- 1995 Nov, [facility] [place] [facility] [address] [id number] [place] [address]- 6712 Nov, [facility] [place] [facility] [address] [id number] [place] [address]- 3523 Nov, [facility] [place] [facility] [address] [id number] [place] [address]- 8959 Nov, [facility] [place] [facility] [address] [id number] [place] [address]- 3531 Nov, [facility] [place] [facility] [address] [id number] [place] [address]- 8927 Nov, [facility] [place] [facility] [address] [id number] [place] [address]- 0903 Nov, [facility] [place] [facility] [address] [id number] [place] [address]- 8441 Oct, [facility] [place] [facility] [address] [id number] [place] [address]- 2132 Oct, [facility] [place] [facility] [address] [id number] [place] [address]- 3794 Sep, [facility] [place] [facility] [address] [id number] [place] [address]- 5438 Sep, [facility] [place] [facility] [address] [id number] [place] [address]- 2156 Jul, [facility] [place] [facility] [address] [id number] [place] [address]- 4201 Jul, [facility] [place] [facility] [address] [facility] [id number] [place] [address]- 3540 18 Jul, 2012 [facility] [address] [facility] [id number] [place] [address]- 0722 Jul, [facility] [address] [facility] [id number] [place] [address]- 0812 Jan, [facility] [address] [facility] [id number] [place] [address]- 0368 Nov, IMMUNIZATIONS No Known Immunizations SOCIAL HISTORY Never Assessed REASON FOR VISIT UDS Positive for Opiates in ER PLAN OF CARE VITAL SIGNS MEDICATIONS No [...]
--- OUTSIDE RECORDS SUMMARY | 2018-02-28 16:43 | XMS REPORT ---
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 78256525 ALLERGIES Substance Reaction Event Type Date Status Ibuprofen Unknown Drug Allergy Apr, Active ENCOUNTERS Encounter Location Date Diagnosis [place] [address] [address]- [address]89 Aug, Degenerative disc disease, lumbar M51.36 ; Blurry vision, bilateral H53.8 ; Bilateral hearing loss, unspecified hearing loss type H91.93 and Essential hypertension I10 [place] [address] [place] [id number] [place] [address] 84750- 6219 Jul, [place] [address] [place] [id number] [place] [address] 34564- 8766 Jul, [place] [address] [place] [id number] [place] [address] 29677- 0584 Jun, [place] [address] [place] [id number] [place] [address] 26343- 6959 Jun, Other chronic pain G89.29 [place] [address] [place] [id number] [place] [address] 96930- 4352 Jun, [place] [address] [place] [id number] [place] [address] 95829- 9470 May, 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 [facility] [address] [place] [id number] [place] [address] 33186- 5933 May, Personal history of nicotine dependence Z87.891 ; Nicotine dependence, uncomplicated, unspecified nicotine product type F17.200 ; Chest pain in adult R07.9 ; Other chronic pain G89.29 ; Encounter for immunization Z23 and Chronic dermatitis L30.9 [facility] [address] 49[address]- 4953 May, [facility] [address] 610[address] -3914 Apr, Other eczema L30.8 [place] [address] 57241- 5390 Aug, Low back pain M54.5 ; Other chronic pain G89.29 and Lumbosacral radiculopathy M54.17 [facility] [address] 29924 -0079 Jul, Acute left-sided low back pain without sciatica M54.5 and Drug-seeking behavior Z76.5 [facility] [address] [address] -8763 Jul, Urinary retention R33.9 [place] [address] [place] [id number] [place] [address] 30772- 4585 Mar, [place] [address] 06302- 5777 Nov, [place] [address] 89434- 3030 Nov, [place] [address] 61437- 1304 December, [facility] [address] 17647- 4685 December, [facility] [address] 18462- 1458 Nov, [facility] [address] [id number] [place] [address]- 2451 Nov, [facility] [place] [facility] [address] [id number] [place] [address]- 8658 Nov, [facility] [place] [facility] [address] [id number] [place] [address]- 1140 Nov, [facility] [place] [facility] [address] [id number] [place] [address]- 6119 Nov, [facility] [place] [facility] [address] [id number] [place] [address]- 5174 Nov, [facility] [place] [facility] [address] [id number] [place] [address]- 8616 Nov, [facility] [address] [id number] [place] [address]- 9124 Nov, [facility] [place] [facility] [address] [id number] [place] [address]- 1975 Nov, [facility] [place] [facility] [address] [id number] [place] [address]- 2290 Nov, [facility] [place] [facility] [address] [id number] [place] [address]- 4545 Oct, [facility] [place] [facility] [address] [id number] [place] [address]- 2439 Oct, [facility] [place] [facility] [address] [id number] [place] [address]- 0735 Sep, [facility] [place] [facility] [address] [id number] [place] [address]- 4143 Sep, [facility] [place] [facility] [address] [id number] [place] 3408 Jul, [facility] [place] [facility] [address] [id number] [place] 5349 Jul, [facility] [place] [facility] [address] [facility] [id number] [place] [address]- 6056 Jul, [facility] [address] [facility] [id number] [place] [address]- 9446 Jul, [facility] [address] [facility] [id number] [place] [address] 2546 Jan, [facility] [address] [facility] [id number] [place] [address]- 2786 Nov, IMMUNIZATIONS No Known Immunizations SOCIAL HISTORY Never Assessed REASON FOR VISIT Rash on L. hand that has spread for about 5 years Pam PATEL PLAN OF CARE VITAL SIGNS Height 66 in 2017-04-22 Weight 132.4 lbs 2017-04-22 Temperature 97.3 degrees Fahrenheit 2017-04-22 Heart Rate 80 bpm 2017-04-22 Respiratory Rate 18 2017-04-22 BMI 21.37 kg/m2 2017-04-22 Blood pressure systolic 140 mmHg 2017-04-22 Blood pressure diastolic 88 mmHg 2017-04-22 MEDICATIONS Medication Instructions Dosage Frequency Start Date End Date Duration Status Triamcinolone Acetonide 0.1 % Externally Twice a day 1 application to affected area 12h 06 Apr, 2017 14 days Active RESULTS No Results PROCEDURES Procedure Date Ordered Result Body Site [facility] VISIT ESTABLISHED PATIENT Apr 22, 2017 INSTRUCTIONS MEDICATIONS ADMINISTERED No Known Medications [...]
--- OUTSIDE RECORDS SUMMARY | 2018-02-28 17:41 | XMS REPORT | Continuity of Care Document ---
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 05/18/2013 19:50:00 DIS Inpatient OTONIELRED HYACINTH S [facility] 4TH BENZODIAZEPINE OVERDOSE [id number] 04/08/2013 13:53:00 04/08/2013 23:59:59 CLS Outpatient TERESO BROWN MD, I [facility] CARD C3-6 PLATE REPLACEMENT [id number] 01/25/2013 15:13:00 01/25/2013 23:59:59 CLS Outpatient TERESO BROWN MD, I [facility] RAD CERVICAL RADICULOPATHY [id number] 01/17/2013 17:20:00 01/18/2013 18:25:00 DIS Outpatient JESUS ALBERTO NAYAK, ANDRES Garcia [facility] SDC ESOPHAGEAL FOREIGN BODY [id number] 12/25/2017 11:25:00 Document Registration [id number] 12/25/2017 11:25:00 Document Registration [id number] 12/25/2017 11:25:00 Document Registration [id number] 12/25/2017 11:25:00 Document Registration [id number] 12/25/2017 11:25:00 Document Registration [id number] 12/25/2017 11:25:00 Document Registration [id number] 12/25/2017 11:25:00 Document Registration [id number] 12/25/2017 11:25:00 Document Registration [id number] 12/25/2017 11:25:00 Document Registration [id number] 12/25/2017 11:25:00 Document Registration [id number] 12/25/2017 11:25:00 Document Registration [id number] 12/25/2017 11:25:00 Document Registration [id number] 12/29/2016 10:16:00 Document Registration [id number] 02/03/2016 23:43:00 Document Registration [id number] 12/06/2014 15:32:00 Document Registration [id number] 12/06/2014 15:32:00 Document Registration [id number] 12/06/2014 15:32:00 Document Registration [id number] 12/06/2014 15:32:00 Document Registration [id number] 08/03/2012 18:02:00 Document Registration [id number] 03/12/2012 14:36:00 Document Registration [id number] 01/29/2012 05:38:00 Document Registration [id number] 01/26/2012 08:48:00 Document Registration [id number] 01/25/2012 11:08:00 Document Registration [id number] 08/30/2011 11:14:00 Document Registration [id number] 04/03/2011 16:18:00 Document Registration [id number] 02/18/2011 14:42:00 Document Registration [id number] 09/11/2010 11:03:00 Document Registration [id number] 08/20/2010 10:07:00 Document Registration [id number] 08/18/2010 11:25:00 Document Registration [id number] 08/12/2010 16:16:00 Document Registration [id number] 09/22/2009 15:46:00 Document Registration [id number] 11/08/2008 13:16:00 Document Registration [id number] 10/25/2005 12:46:00 Document Registration [id number] 08/31/2017 16:00:00 08/31/2017 23:59:59 EMILY DYER MD, ARIADNA Epperson [facility] [id number] 05/28/2017 15:00:00 Document Registration
== END 2018-02-27 15:15 | disposition home or self-care (01) ==
LOC: EDUNIT# 13:12 → ER 13:15
DX: M54.5 Low back pain (principal); G89.29 Other chronic pain; J43.9 Emphysema, unspecified; K21.9 Gastro-esophageal reflux disease without esophagitis; F17.210 Nicotine dependence, cigarettes, uncomplicated; F41.9 Anxiety disorder, unspecified; F32.9 Major depressive disorder, single episode, unspecified; Z85.828 Personal history of other malignant neoplasm of skin; Z88.6 Allergy status to analgesic agent; Z90.49 Acquired absence of other specified parts of digestive tract
CPT/HCPCS: 96372; 99284

== ENCOUNTER → 2018-05-22 | Day surgery (SDC) | payer MEDICARE ==
[~2018-05-22] VITALS: Ht 167.6 cm; Wt 59.0 kg
[~2018-05-22] MED LIST changes: +LACTATED RINGERS 1,000 ML IV ONE; +LACTATED RINGERS 1,000 ML IV SCH; +MIDAZOLAM 2 MG/2 ML (VERSED) VIAL ONE; +ONDANSETRON 4 MG/2 ML (SDV) Z0FRAN IVP ONE; +ONDANSETRON 4 MG/2 ML (SDV) Z0FRAN ONE; +PANT40TA2 PO; +SEVOFLURANE (ULTANE) 15 ML INHAL SOLN ONE; +SUCCINYLCHOLINE INJ 100 MG/5 ML SYR ONE; +SUCR1TAB36 PO; +fentaNYL INJECTION 100 MCG/2 ML AMP ONE; +proPOfol 200 MG/20 ML (DIPRIVAN) VIAL IV ONE
--- NOTE | 2018-05-22 12:06 | ED EENT ---
History of Present Illness General Chief Complaint: Oral/Throat Problems Stated Complaint: THROAT BLOCKAGE, TROUBLE SWALLOWING Nursing Triage Note: pt reports he has had difficulty swallowing/deating/drinking since eating fried chicken . pt has hx of esophageal strictures and has had 2 previous scopes to retrieve food boluses before. pt reprots currently he cannot keep down any liquids. Source: patient Exam Limitations: no limitations History of Present Illness Date Seen by Provider: May 22, 2018 Time Seen by Provider: 11:50 Initial Comments Patient is a 63-year-old male who presents to the emergency room with complaints of difficulty swallowing and drinking that started after eating fried chicken on of this week. He reports that he has had this 2 other times that required endo for removal of food bolus. He is unable to swallow his saliva or unable to keep any liquids down. Timing/Duration: other (05/20/18) Location: throat Prearrival Treatment: no prearrival treatment Allergies and Home Medications Allergies Coded Allergies: ibuprofen (Verified Allergy, Unknown, 04/05/15) HYPERTENSION Home Medications Pantoprazole Sodium 40 Mg Tablet.dr, 40 MG PO DAILY Prescribed by: FLORECITA ROMERO on 05/22/18 1556 Sucralfate 1 Gm Tablet, 1 GM PO QID crush pill and mix with teaspoon of water to make a slurry then drink. Prescribed by: FLORECITA ROMERO on 05/22/18 1557 Patient Home Medication List Home Medication List Reviewed: Yes Review of Systems Review of Systems Constitutional: see HPI; No chills, No fever Throat: see HPI, painful swallowing, difficulty with fluids All Other Systems Reviewed Negative Unless Noted: Yes Past Qfzabtl-Guumvt-Ncwvle Hx Patient Social History Alcohol Use: Denies Use Recreational Drug Use: Yes (reports none today) Drug of Choice: XANAX, NARCOTICS, HAS ALSO TESTED + FOR METHAMPHETAMIES Type Used: Cigarettes 2nd Hand Smoke Exposure: Yes Recent Foreign Travel: No Contact w/Someone Who Travel: No Recent Infectious Disease Expo: No Recent Hopitalizations: No Physical Abuse: No Sexual Abuse: No Mistreated: No Fear: No Immunizations Up To Date Tetanus Booster (TDap): Less than 5yrs PED Vaccines UTD: No Date of Pneumonia Vaccine: May 26, 2017 Date of Influenza Vaccine: May 26, 2017 Seasonal Allergies Seasonal Allergies: No Past Medical History Surgeries: Yes (3 upper scopes for food bolus) Appendectomy, Ear Surgery, Gallbladder, Orthopedic Respiratory: Yes (PER OLD RECORDS, PT HAS COPD, BUT PT DENIES) Chronic Bronchitis, COPD, Emphysema Cardiac: Yes (MINIMAL, NON-OCCLUSIVE SMALL VESSEL DISEASE, EF 50% PER CATH ) Coronary Artery Disease, High Cholesterol, Hypertension Neurological: Yes (RESTLESS LEG SYNDROME) Reproductive Disorders: No Sexually Transmitted Disease: No HIV/AIDS: No Genitourinary: No Gastrointestinal: Yes (CHRONIC DYSPHAGIA AND HOARSENESS; ESOPHAGEAL STRICTURE) Gastroesophageal Reflux Musculoskeletal: Yes Degenerate Disk Disease, Chronic Back Pain Endocrine: No HEENT: Yes (POOR DENTITION; BMT'S ) Chronic Ear Infection Hearing Impairment: Hard of Hearing Cancer: Yes Skin Did You Recieve Any Treatments: Yes What Type of Treatment Did You: Surgical Intervention Psychosocial: Yes Anxiety, Suicide Attempts, Depression Integumentary: No Blood Disorders: No Adverse Reaction/Blood Tranf: No Family Medical History Reviewed Nursing Family Hx Cancer 03 FATHER (PROSTATE) 03 MOTHER (BREAST CA ) 09 BROTHER (THROAT/PANCREATIC) 09 SISTER (LIVER) DEAFNESS 03 FATHER 09 BROTHER Family history: Breast disease 03 MOTHER (BREAST CA) History of - respiratory disease Prostate cancer 03 FATHER Stroke 03 MOTHER Visual impairment Cancer Physical Exam Vital Signs Vital Signs - First Documented 05/22/18 11:48 Temp 96.7 Pulse 65 Resp 20 B/P (MAP) 144/89 (107) Pulse Ox 98 Height, Weight, BMI Height: 5'6.00" Weight: 130lbs. 0.0oz. 58.934397vg; 22.0 BMI Method:Stated General Appearance: WD/WN, no apparent distress, mild distress, thin Eyes: bilateral eye normal inspection, bilateral eye PERRL, bilateral eye EOMI Ears: bilateral ear auricle normal, bilateral ear canal normal, bilateral ear TM normal Nose: normal inspection Mouth/Throat: normal mouth inspection, pharynx normal, excessive drooling, foreign body (unable to visualize foreign body suspected.) Cardiovascular: normal peripheral pulses, regular rate, rhythm, no edema, no gallop, no JVD, no murmur Respiratory: chest non-tender, lungs clear, normal breath sounds, no respiratory distress, no accessory muscle use Gastrointestinal: normal bowel sounds, non tender, soft, no organomegaly, no pulsatile mass, tenderness, spleenomegaly Neurologic/Psychiatric: alert, normal mood/affect, oriented x 3 Skin: normal color, warm/dry Progress/Results/Core Measures Results/Orders Lab Results Laboratory Tests Test 05/22/18 12:10 Range/Units White Blood Count 7.1 4.3-11.0 10^3/uL Red Blood Count 4.70 4.35-5.85 10^6/uL Hemoglobin 15.9 13.3-17.7 G/DL Hematocrit 45 40-54 % Mean Corpuscular Volume 96 80-99 FL Mean Corpuscular Hemoglobin 34 25-34 PG Mean Corpuscular Hemoglobin Concent 35 32-36 G/DL Red Cell Distribution Width 13.2 10.0-14.5 % Platelet Count 209 130-400 10^3/uL Mean Platelet Volume 8.9 7.4-10.4 FL Neutrophils (%) (Auto) 71 42-75 % Lymphocytes (%) (Auto) 22 12-44 % Monocytes (%) (Auto) 6 0-12 % Eosinophils (%) (Auto) 1 0-10 % Basophils (%) (Auto) 0 0-10 % Neutrophils # (Auto) 5.0 1.8-7.8 X 10^3 Lymphocytes # (Auto) 1.6 1.0-4.0 X 10^3 Monocytes # (Auto) 0.4 0.0-1.0 X 10^3 Eosinophils # (Auto) 0.0 0.0-0.3 10^3/uL Basophils # (Auto) 0.0 0.0-0.1 10^3/uL Sodium Level 141 135-145 MMOL/L Potassium Level 3.7 3.6-5.0 MMOL/L Chloride Level 106 98-107 MMOL/L Carbon Dioxide Level 23 21-32 MMOL/L Anion Gap 12 5-14 MMOL/L Blood Urea Nitrogen 19 H 7-18 MG/DL Creatinine 0.77 0.60-1.30 MG/DL Estimat Glomerular Filtration Rate > 60 BUN/Creatinine Ratio 25 Glucose Level 103 70-105 MG/DL Calcium Level 9.7 8.5-10.1 MG/DL Corrected Calcium 9.5 8.5-10.1 MG/DL Total Bilirubin 0.8 0.1-1.0 MG/DL Aspartate Amino Transf (AST/SGOT) 16 5-34 U/L Alanine Aminotransferase (ALT/SGPT) 11 0-55 U/L Alkaline Phosphatase 76 40-136 U/L Total Protein 7.5 6.4-8.2 GM/DL Albumin 4.3 3.2-4.5 GM/DL My Orders Orders - DONTA MALONEY Ondansetron Injection (Zofran Injectio (05/22/18 12:00) Comprehensive Metabolic Panel (05/22/18 11:53) Saline Lock/Iv-Start (05/22/18 11:53) Cbc With Automated Diff (05/22/18 11:53) Medications Given in ED Current Medications Medications Dose Ordered Sig/Isabell Route Start Time Stop Time Status Last Admin Dose Admin Ondansetron HCl 4 mg ONCE ONCE IVP 05/22/18 12:00 05/22/18 12:01 DC 05/22/18 12:12 4 MG Vital Signs/I&O 05/22/18 05/22/18 11:48 17:30 Temp 96.7 Pulse 65 68 Resp 20 20 B/P (MAP) 144/89 (107) 153/92 (112) Pulse Ox 98 94 Blood Pressure Mean: 107 Progress Progress Note : Time: 12:06 Progress Note I have seen and evaluated the patient. I have called Dr. Romero the on-call surgeon at this time. He is going to take the patient to Endo for food bolus removal. The patient agrees with plan of care and consent was signed. 1300: Dr. Romero here to see and evaluate the patient. 1630: Patient is back from Endo at this time. Dr. Romero was able to remove the food bolus. He has had his hour postprocedure. He will be discharged home shortly. Departure Impression Primary Impression: ESOPHAGEAL OBSTRUCTION FROM FOOD BOLUS Disposition: 01 HOME, SELF-CARE Condition: Stable/Unchanged Departure-Patient Inst. Decision time for Depature: 12:13 Referrals: FLORECITA ROMERO DO NO,LOCAL PHYSICIAN (PCP) Primary Care Physician Patient Instructions: Food Obstruction Add. Discharge Instructions: Continue Dr. Romero's plan of care for discharge. Liquid diet for 3 days. Follow -up with Dr. Romero within 1 week for recheck. Return back to the emergency room for any worsening symptoms or concerns as needed. All discharge instructions reviewed with patient and/or family. Voiced understanding. Scripts Sucralfate (Carafate) 1 Gm Tablet 1 GM PO QID, #120 TAB crush pill and mix with teaspoon of water to make a slurry then drink. Prov: FLORECITA ROMERO DO 05/22/18 Pantoprazole Sodium (Protonix) 40 Mg Tablet. 40 MG PO DAILY, #30 TAB 3 Refills Prov: FLORECITA ROMERO DO 05/22/18 DONTA MALONEY May 22, 2018 12:06
[2018-05-22 12:16] LABS: BASOPHILS % (AUTO) 0 % (0-10); EOSINOPHILS % (AUTO) 1 % (0-10); HEMATOCRIT 45 % (40-54); HEMOGLOBIN 15.9 G/DL (13.3-17.7); LYMPHOCYTES # (AUTO) 1.6 X 10^3 (1.0-4.0); LYMPHOCYTES % (AUTO) 22 % (12-44); MEAN CORPUSCULAR HEMOGLOBIN 34 PG (25-34); MEAN CORPUSCULAR HGB CONC 35 G/DL (32-36); MEAN CORPUSCULAR VOLUME 96 FL (80-99); MEAN PLATELET VOLUME 8.9 FL (7.4-10.4); MONOCYTES # (AUTO) 0.4 X 10^3 (0.0-1.0); MONOCYTES % (AUTO) 6 % (0-12); NEUTROPHILS % (AUTO) 71 % (42-75); PLATELET COUNT 209 10^3/uL (130-400); RED CELL DISTRIBUTION WIDTH 13.2 % (10.0-14.5); WHITE BLOOD COUNT 7.1 10^3/uL (4.3-11.0)
[2018-05-22 12:35] LABS: ALANINE AMINOTRANSFERASE 11 U/L (0-55); ALBUMIN 4.3 GM/DL (3.2-4.5); ALKALINE PHOSPHATASE 76 U/L (40-136); BILIRUBIN,TOTAL 0.8 MG/DL (0.1-1.0); BUN/CREATININE RATIO 25; CALCIUM 9.7 MG/DL (8.5-10.1); CARBON DIOXIDE 23 MMOL/L (21-32); CHLORIDE 106 MMOL/L (98-107); CREATININE SERUM 0.77 MG/DL (0.60-1.30); GFR ESTIMATED > 60; GLUCOSE 103 MG/DL (70-105); POTASSIUM 3.7 MMOL/L (3.6-5.0); SODIUM 141 MMOL/L (135-145); TOTAL PROTEIN 7.5 GM/DL (6.4-8.2)
--- OUTSIDE RECORDS SUMMARY | 2018-05-22 13:20 | XMS REPORT | Clinical Summary ---
Author Author [facility] Organization [facility] Address Unknown Phone Unavailable Care Team Providers Care Bobbin Cleaner Name Role Phone Unverified, Unverified Md PCP Unavailable Source Comments Some departments are not documenting in the electronic medical record. If you do not see the information that you expected, contact Release of Information in the Health Information Management department at [phone] for further assistance in locating additional records.[facility] Allergies Not on File Current Medications Not [...] 2005 VACCINE (1 of 2) INFLUENZA VACCINE 03/17/2018 Results Not on filefrom Last 3 Months
--- OUTSIDE RECORDS SUMMARY | 2018-05-22 13:29 | XMS REPORT | Clinical Summary ---
Author Author [facility] Organization [facility] Address Unknown Phone Unavailable Care Team Providers Care Hydrometer Calibrator Name Role Phone Unverified, Unverified Md PCP Unavailable Source Comments Some departments are not documenting in the electronic medical record. If you do not see the information that you expected, contact Release of Information in the Health Information Management department at [phone] for further assistance in locating additional records.[facility] Allergies Not on File Current Medications [...]
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
--- OUTSIDE RECORDS SUMMARY | 2018-05-22 13:37 | XMS REPORT | Continuity of Care Document ---
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 KRISTINA Garsia [facility] ER DIZZINESS/WEAKNESS [id number] 05/16/2013 01:00:00 05/18/2013 19:50:00 DIS Inpatient ELIZA TOPETE HYACINTH S [facility] 4TH BENZODIAZEPINE OVERDOSE [id number] 04/08/2013 13:53:00 04/08/2013 23:59:59 CLS Outpatient TERESO BROWN MD, I [facility] CARD C3-6 PLATE REPLACEMENT [id number] 01/25/2013 15:13:00 01/25/2013 23:59:59 CLS Outpatient TERESO BROWN MD, I [facility] RAD CERVICAL RADICULOPATHY [id number] 01/17/2013 17:20:00 01/18/2013 18:25:00 DIS [facility] [id number] 05/22/2018 12:17:00 Document Registration [id number] 12/25/2017 11:25:00 Document Registration [id number] 12/25/2017 11:25:00 Document Registration [id number] 12/25/2017 11:25:00 Document Registration [id number] 12/25/2017 11:25:00 Document Registration [id number] 12/25/2017 11:25:00 Document Registration [id number] 12/25/2017 11:25:00 Document Registration [id number] 12/25/2017 11:25:00 Document Registration [id number] 12/25/2017 11:25:00 Document Registration [id number] 12/25/2017 11:25:00 Document Registration [id number] 12/25/2017 11:25:00 Document Registration [id number] 12/25/2017 11:25:00 Document Registration [id number] 12/25/2017 11:25:00 Document Registration [id number] 12/29/2016 10:16:00 Document Registration [id number] 02/03/2016 23:43:00 Document Registration [id number] 12/06/2014 15:32:00 Document Registration [id number] 12/06/2014 15:32:00 Document Registration [id number] 12/06/2014 15:32:00 Document Registration [id number] 12/06/2014 15:32:00 Document Registration [id number] 08/03/2012 18:02:00 Document Registration [id number] 03/12/2012 14:36:00 Document Registration [id number] 01/29/2012 05:38:00 Document Registration [id number] 01/26/2012 08:48:00 Document Registration [id number] 01/25/2012 11:08:00 Document Registration [id number] 08/30/2011 11:14:00 Document Registration [id number] 04/03/2011 16:18:00 Document Registration [id number] 02/18/2011 14:42:00 Document Registration [id number] 09/11/2010 11:03:00 Document Registration [id number] 08/20/2010 10:07:00 Document Registration [id number] 08/18/2010 11:25:00 Document Registration [id number] 08/12/2010 16:16:00 Document Registration [id number] 09/22/2009 15:46:00 Document Registration [id number] 11/08/2008 13:16:00 Document Registration [id number] 10/25/2005 12:46:00 Document Registration [id number] 08/31/2017 16:00:00 08/31/2017 23:59:59 [facility] Outpatient GOMEZ NAYAK, ARIADNA Epperson [facility] [id number] 05/28/2017 15:00:00 Document Registration
--- NOTE | 2018-05-22 14:09 | Consultation ---
History of Present Illness History of Present Illness Patient Consulted On(shobha/time) 05/22/18 14:06 Date Seen by Provider: May 22, 2018 Time Seen by Provider: 14:06 History of Present Illness Patient seen and evaluated in the emergency department Patient is a 63-year-old male who was eating chicken on and felt like something is stuck in his distal esophagus. Patient states his continued to be there. He's had having problems with drinking any solids and saliva. Patient' s had a couple previous episodes of this. Patient states that he was trying to let it go down by itself but it just wasn't going down. Patient decided go to the emergency department today for further evaluation. Nothing makes it better. Nothing makes it worse. Patient has no other complaints at this time. He denies any fever sweats chills shortness of breath or chest pain. Allergies and Home Medications Allergies Coded Allergies: ibuprofen (Verified Allergy, Unknown, 04/05/15) HYPERTENSION Home Medications No Active Prescriptions or Reported Meds Patient Home Medication List Home Medication List Reviewed: Yes Past Ihvnkyg-Thmndh-Eqmtap Hx Patient Social History Alcohol Use: Denies Use Recreational Drug Use: Yes (reports none today) Drug of Choice: XANAX, NARCOTICS, HAS ALSO TESTED + FOR METHAMPHETAMIES Type Used: Cigarettes 2nd Hand Smoke Exposure: Yes Recent Foreign Travel: No Contact w/Someone Who Travel: No Recent Infectious Disease Expo: No Recent Hopitalizations: No Immunizations Up To Date Tetanus Booster (TDap): Less than 5yrs PED Vaccines UTD: No Date of Pneumonia Vaccine: May 26, 2017 Date of Influenza Vaccine: May 26, 2017 Seasonal Allergies Seasonal Allergies: No Surgeries History of Surgeries: Yes (3 upper scopes for food bolus) Surgeries: Appendectomy, Ear Surgery, Gallbladder, Orthopedic Respiratory History of Respiratory Disorde: Yes (PER OLD RECORDS, PT HAS COPD, BUT PT DENIES) Respiratory Disorders: Chronic Bronchitis, COPD, Emphysema Cardiovascular History of Cardiac Disorders: Yes (MINIMAL, NON-OCCLUSIVE SMALL VESSEL DISEASE , EF 50% PER CATH 06/29/17) Cardiac Disorders: Coronary Artery Disease, High Cholesterol, Hypertension Neurological History of Neurological Disord: Yes (RESTLESS LEG SYNDROME) Reproductive System Hx Reproductive Disorders: No Sexually Transmitted Disease: No HIV/AIDS: No Genitourinary History of Genitourinary Disor: No Gastrointestinal History of Gastrointestinal Di: Yes (CHRONIC DYSPHAGIA AND HOARSENESS; ESOPHAGEAL STRICTURE) Gastrointestinal Disorders: Gastroesophageal Reflux Musculoskeletal History of Musculoskeletal Dis: Yes Musculoskeletal Disorders: Degenerate Disk Disease, Chronic Back Pain Endocrine History of Endocrine Disorders: No HEENT History of HEENT Disorders: Yes (POOR DENTITION; BMT'S ) HEENT Disorders: Chronic Ear Infection Hearing Impairment: Hard of Hearing Cancer History of Cancer: Yes Cancer: Skin Psychosocial History of Psychiatric Problem: Yes Behavioral Health Disorders: Anxiety, Suicide Attempts, Depression Integumentary History of Skin or Integumenta: No Blood Transfusions History of Blood Disorders: No Adverse Reaction to a Blood Tr: No Family Medical History Significant Family History: Cancer Family Medial History: Cancer 03 FATHER (PROSTATE) 03 MOTHER (BREAST CA ) 09 BROTHER (THROAT/PANCREATIC) 09 SISTER (LIVER) DEAFNESS 03 FATHER 09 BROTHER Family history: Breast disease 03 MOTHER (BREAST CA) History of - respiratory disease Prostate cancer 03 FATHER Stroke 03 MOTHER Visual impairment Review of Systems-General Constitutional: no symptoms reported EENTM: no symptoms reported Respiratory: no symptoms reported Cardiovascular: no symptoms reported Gastrointestinal: see HPI Genitourinary: no symptoms reported Musculoskeletal: no symptoms reported Skin: no symptoms reported Psychiatric/Neurological: No Symptoms Reported Physical Exam-General Problems Physical Exam Vital Signs Vital Signs - First Documented 05/22/18 11:48 Temp 96.7 Pulse 65 Resp 20 B/P (MAP) 144/89 (107) Pulse Ox 98 Capillary Refill : Less Than 3 Seconds General Appearance: no apparent distress HEENT: PERRL/EOMI, normal ENT inspection Neck: non-tender, full range of motion Respiratory: no respiratory distress, no accessory muscle use Cardiovascular: regular rate, rhythm Gastrointestinal: non tender, soft Back: normal inspection Extremities: normal range of motion 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, no motor/sensory deficits, alert, normal mood/affect, oriented x 3 Skin: normal color, warm/dry Lymphatic: no adenopathy Data Review Labs Laboratory Tests 05/22/18 12:10: White Blood Count 7.1, Red Blood Count 4.70, Hemoglobin 15.9, Hematocrit 45, Mean Corpuscular Volume 96, Mean Corpuscular Hemoglobin 34, Mean Corpuscular Hemoglobin Concent 35, Red Cell Distribution Width 13.2, Platelet Count 209, Mean Platelet Volume 8.9, Neutrophils (%) (Auto) 71, Lymphocytes (%) (Auto) 22, Monocytes (%) (Auto) 6, Eosinophils (%) (Auto) 1, Basophils (%) (Auto) 0, Neutrophils # (Auto) 5.0, Lymphocytes # (Auto) 1.6, Monocytes # (Auto) 0.4, Eosinophils # (Auto) 0.0, Basophils # (Auto) 0.0, Sodium Level 141, Potassium Level 3.7, Chloride Level 106, Carbon Dioxide Level 23, Anion Gap 12, Blood Urea Nitrogen 19H, Creatinine 0.77, Estimat Glomerular Filtration Rate > 60, BUN /Creatinine Ratio 25, Glucose Level 103, Calcium Level 9.7, Corrected Calcium 9.5, Total Bilirubin 0.8, Aspartate Amino Transf (AST/SGOT) 16, Alanine Aminotransferase (ALT/SGPT) 11, Alkaline Phosphatase 76, Total Protein 7.5, Albumin 4.3 Assessment/Plan Assessment/Plan Assessment/Plan Dysphagia Food bolus esophagus Patient was discuss risk and benefits of having EGD and all other indicated procedures performed. He understands risk and benefits and wishes to proceed consent signed the chart. Patient to endoscopy for procedure. FLORECITA MORALES DO May 22, 2018 14:09
--- NOTE | 2018-05-22 15:56 | Progress Note-Post Operative ---
Post-Operative Progess Note Surgeon (s)/Blood Collector (s) Surgeon FLORECITA MORALES DO Blood Collector: na Pre-Operative Diagnosis dysphagia, esophageal food bolus Post-Operative Diagnosis same Procedure & Operative Findings Date of Procedure 05/22/18 Procedure Performed/Findings egd c removal esophageal food bolus. Anesthesia Type gen Estimated Blood Loss Estimated blood loss (mL): none Specimens/Packing Specimens Removed na FLORECITA MORALES DO May 22, 2018 15:56
--- NOTE | 2018-05-22 16:02 | Discharge Inst-Simple/Standard ---
Discharge Inst-Standard Discharge Medications New, Converted or Re-Newed RX: RX on Chart Patient Instructions/Follow Up Plan of Care/Instructions/FU: 1-2 weeks Heather Activity as Tolerated: Yes Discharge Diet: Liquid Diet (liquid diet for 3 days, then slowly advance as tolerates. Make sure you chew all your food and follow by a drink of water. If any difficulties, be seen at that time.) FLORECITA MORALES DO May 22, 2018 16:02
--- NOTE | 2018-05-22 17:00 | Anesthesia-General Post-Op ---
General Patient Condition Mental Status/LOC: Same as Preop Cardiovascular: Satisfactory Nausea/Vomiting: Absent Respiratory: Satisfactory Pain: Controlled Complications: Absent Post Op Complications Complications None Follow Up Care/Instructions Patient Instructions None needed. Anesthesia/Patient Condition Patient Condition Patient is doing well, no complaints, stable vital signs, no apparent adverse anesthesia problems. No complications reported per nursing. MELISSA VASQUEZ CRNA May 22, 2018 16:59
[2018-05-22 17:30] VITALS: BP 153/92
--- NOTE | 2018-05-22 19:37 | OPERATIVE REPORT ---
DATE OF SERVICE: 05/22/2018 PREOPERATIVE DIAGNOSES: Dysphagia and esophageal food bolus. POSTOPERATIVE DIAGNOSES: Dysphagia and esophageal food bolus. PROCEDURE: EGD with removal of esophageal food bolus. SURGEON: Florecita Romero DO ANESTHESIA: General. ESTIMATED BLOOD LOSS: None. COMPLICATIONS: None. INDICATIONS: The patient is a 63-year-old male, who was eating chicken 2 days ago and felt the chicken get stuck in his esophagus. He was continued to have nausea and inability to swallow liquids and saliva. He understands risks and benefits of procedure and wished to proceed with procedure. Consent was signed on the chart. DESCRIPTION OF PROCEDURE: The patient was taken to the endoscopy suite, placed in the supine position. General endotracheal anesthesia was provided and a timeout was performed. The scope was inserted into the mouth and partially down into esophagus where a lot of food particulate was present and a lot of fluid, this was then suctioned. At this time, the food particulate was then attempted to be removed. This had to be done in multiple insertions and retractions using multiple devices of a biopsy forceps, snare and a basket and the food bolus was continued to be removed in pieces until all of it was removed. Once removed, the scope was inserted down the esophagus, into the stomach and into the duodenum. There were no polyps, masses or ulcerations within the duodenum. Scope was slowly retracted back to the stomach where it is retroflexed noting a small polyp near the GE junction. Scope was returned to its normal position just demonstrating some food particulate as well. Scope was then slowly retracted back into the distal esophagus, which had a fairly normal appearance except for the distal portion did appear to be very tortuous. Scope was slowly retracted back until completely removed, just noting some erythematous changes secondary to the food bolus. There is also a small polyp present. Scope was continued to be slowly retracted back until completely removed, noting no other pathology. The patient tolerated the procedure well without any complications. He was taken to recovery room in stable condition. RECOMMENDATIONS: This patient will be on clear liquid diet for 3 days and slowly advance. We will start him on Protonix 40 mg daily and Carafate 1 gram 4 times a day to be made into slurry. We will follow up with him in 1 to 2 weeks. He will need a repeat EGD in 4 to 6 weeks to reevaluate at that time. Job ID: [id number] DocumentID: [id number] Dictated Date: 05/22/2018 16:06:57 [employer] Consultant Date: 05/22/2018 19:36:58 Dictated By: FLORECITA ROMERO DO
== END | disposition home or self-care (01) ==
LOC: EDUNIT# 11:34 → ER 11:36 → SDC 12:16
PROVIDERS: ATTEND Surgery
DX: T18.108A Unspecified foreign body in esophagus causing other injury, initial encounter (principal); K21.9 Gastro-esophageal reflux disease without esophagitis; J43.9 Emphysema, unspecified; I25.10 Atherosclerotic heart disease of native coronary artery without angina pectoris; I10 Essential (primary) hypertension; E78.00 Pure hypercholesterolemia, unspecified; G25.81 Restless legs syndrome; F17.210 Nicotine dependence, cigarettes, uncomplicated
CPT/HCPCS: 36415; 80053; 85025

== ENCOUNTER 2018-05-25 16:34 | Emergency (ER) | payer MEDICARE ==
[~2018-05-25] VITALS: Ht 167.6 cm; Wt 59.0 kg
[~2018-05-25 16:34] MED LIST changes: -LACTATED RINGERS 1,000 ML IV ONE; -LACTATED RINGERS 1,000 ML IV SCH; -MIDAZOLAM 2 MG/2 ML (VERSED) VIAL ONE; -ONDANSETRON 4 MG/2 ML (SDV) Z0FRAN IVP ONE; -ONDANSETRON 4 MG/2 ML (SDV) Z0FRAN ONE; -SEVOFLURANE (ULTANE) 15 ML INHAL SOLN ONE; -SUCCINYLCHOLINE INJ 100 MG/5 ML SYR ONE; -fentaNYL INJECTION 100 MCG/2 ML AMP ONE; -proPOfol 200 MG/20 ML (DIPRIVAN) VIAL IV ONE
--- NOTE | 2018-05-25 18:07 | Consultation ---
History of Present Illness History of Present Illness Patient Consulted On(shobha/time) 05/25/18 18:02 Date Seen by Provider: May 25, 2018 Time Seen by Provider: 18:02 History of Present Illness Patient seen and evaluated in the emergency department. Consult requested by Dr. Galeano Patient is a 63-year-old male who last Thursday had a food bolus of chicken and was having nausea and vomiting. Patient had this cleared by having EGD and was started on Protonix and Carafate and instructed to stay on a liquid diet for approximately 3 days and then go to more soft foods. Patient states that today he was eating a steak burrito when he felt food gets stuck. This was approximately 11 o'clock this morning. Patient then began having nausea and vomiting and unable to keep secretions down. Anything he drinks causes him to throw up. Nothing is making anything better. Nothing is making it worse. He denies any fever sweats chills shortness of breath or chest pain. Allergies and Home Medications Allergies Coded Allergies: ibuprofen (Verified Allergy, Unknown, 04/05/15) HYPERTENSION Home Medications Pantoprazole Sodium 40 Mg Tablet., 40 MG PO DAILY Prescribed by: FLORECITA MORALES on 05/22/18 [id number] Sucralfate 1 Gm Tablet, 1 GM PO QID crush pill and mix with teaspoon of water to make a slurry then drink. Prescribed by: FLORECITA MORALES on 05/22/181558 Patient Home Medication List Home Medication List Reviewed: Yes Past Faffylt-Wsopff-Reksmh Hx Patient Social History Alcohol Use: Denies Use Recreational Drug Use: Yes Drug of Choice: XANAX, NARCOTICS, HAS ALSO TESTED + FOR METHAMPHETAMIES Smoking Status: Current Everyday Smoker Type Used: Cigarettes 2nd Hand Smoke Exposure: Yes Recent Foreign Travel: No Contact w/Someone Who Travel: No Recent Infectious Disease Expo: No Recent Hopitalizations: No Immunizations Up To Date Tetanus Booster (TDap): Less than 5yrs PED Vaccines UTD: No Date of Pneumonia Vaccine: May 26, 2017 Date of Influenza Vaccine: May 26, 2017 Seasonal Allergies Seasonal Allergies: No Surgeries History of Surgeries: Yes (3 upper scopes for food bolus) Surgeries: Appendectomy, Ear Surgery, Gallbladder, Orthopedic Respiratory History of Respiratory Disorde: Yes (PER OLD RECORDS, PT HAS COPD, BUT PT DENIES) Respiratory Disorders: Chronic Bronchitis, COPD, Emphysema Cardiovascular History of Cardiac Disorders: Yes (MINIMAL, NON-OCCLUSIVE SMALL VESSEL DISEASE , EF 50% PER CATH 06/29/17) Cardiac Disorders: Coronary Artery Disease, High Cholesterol, Hypertension Neurological History of Neurological Disord: Yes (RESTLESS LEG SYNDROME) Reproductive System Hx Reproductive Disorders: No Sexually Transmitted Disease: No HIV/AIDS: No Genitourinary History of Genitourinary Disor: No Gastrointestinal History of Gastrointestinal Di: Yes (CHRONIC DYSPHAGIA AND HOARSENESS; ESOPHAGEAL STRICTURE) Gastrointestinal Disorders: Gastroesophageal Reflux Musculoskeletal History of Musculoskeletal Dis: Yes Musculoskeletal Disorders: Degenerate Disk Disease, Chronic Back Pain Endocrine History of Endocrine Disorders: No HEENT History of HEENT Disorders: Yes (POOR DENTITION; BMT'S ) HEENT Disorders: Chronic Ear Infection Hearing Impairment: Hard of Hearing Cancer History of Cancer: Yes Cancer: Skin Psychosocial History of Psychiatric Problem: Yes Behavioral Health Disorders: Anxiety, Suicide Attempts, Depression Integumentary History of Skin or Integumenta: No Blood Transfusions History of Blood Disorders: No Adverse Reaction to a Blood Tr: No Family Medical History Significant Family History: Cancer Family Medial History: Cancer 03 FATHER (PROSTATE) 03 MOTHER (BREAST CA ) 09 BROTHER (THROAT/PANCREATIC) 09 SISTER (LIVER) DEAFNESS 03 FATHER 09 BROTHER Family history: Breast disease 03 MOTHER (BREAST CA) History of - respiratory disease Prostate cancer 03 FATHER Stroke 03 MOTHER Visual impairment Review of Systems-General Constitutional: no symptoms reported EENTM: no symptoms reported Respiratory: no symptoms reported Cardiovascular: no symptoms reported Gastrointestinal: see HPI Genitourinary: no symptoms reported Musculoskeletal: no symptoms reported Skin: no symptoms reported Psychiatric/Neurological: No Symptoms Reported Physical Exam-General Problems Physical Exam Vital Signs Vital Signs - First Documented 05/25/18 16:48 Temp 96.8 Pulse 68 Resp 16 B/P (MAP) 157/98 (117) Pulse Ox 98 O2 Delivery Room Air Capillary Refill : Less Than 3 Seconds General Appearance: mild distress HEENT: PERRL/EOMI Neck: full range of motion, supple Respiratory: no respiratory distress, no accessory muscle use Cardiovascular: regular rate, rhythm Gastrointestinal: non tender, soft Back: normal inspection Extremities: normal range of motion, non-tender, normal inspection 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 He is unable to keep secretions down. We discussed risk and benefits of having EGD performed again. Patient understands risk and benefits and will proceed with EGD. Patient instructed that he stay on a liquid diet afterwards. To eat foods that are easy to swallow wishes was discussed with him. To avoid chicken and steak and to take small bites chewing well and drink plenty of liquids with it. FLORECITA MORALES DO May 25, 2018 18:07
--- NOTE | 2018-05-25 18:08 | ED GI ---
General Chief Complaint: Oral/Throat Problems Stated Complaint: 'THROAT PLUGGED UP' Nursing Triage Note: PT AMB TO ROOM #4 W/O DIFFICULTY. A&OX4. C/O BURRITO STUCK IN PT THROAT. PT REPORTS HE WAS EATING @ [facility] APPROX 1100 THIS AM AND CAN NOT PASS FOOD BOLUS. PT REPORTS HE HAS HAD THIS ISSUE IN THE PAST THAT REQUIRED SURGICAL INTERVENTION. UPON ARRIVAL TO ED PT NOTED TO BE VOMITING. PT DENIES SOB. Sepsis Screen: No Definite Risk Source of Information: Patient Exam Limitations: No Limitations History of Present Illness Date Seen by Provider: May 25, 2018 Time Seen by Provider: 17:40 Initial Comments Patient presents to ER by private conveyance with chief complaint that he was eating a steak burrito from [employer] today and had a lot of choking sensation and inability to swallow food. Just 3 days ago he had the same experience and had to come to the ER and have Dr. Romero, General Surgery extract the food bolus. He does not recall ever having to have his esophagus dilated. Denies a history of GERD. He does not drink but he does smoke about half pack per day of cigarettes. He's had EGDs before but never had any skin scarring, Hill's, ulcers etc. Allergies and Home Medications Allergies Coded Allergies: ibuprofen (Verified Allergy, Unknown, 04/05/15) HYPERTENSION Home Medications Pantoprazole Sodium 40 Mg Tablet.dr, 40 MG PO DAILY Prescribed by: FLORECITA ROMERO on 05/22/18 4615 Sucralfate 1 Gm Tablet, 1 GM PO QID crush pill and mix with teaspoon of water to make a slurry then drink. Prescribed by: FLORECITA ROMERO on 05/22/18 1904 Patient Home Medication List Home Medication List Reviewed: Yes Review of Systems Review of Systems Constitutional: No chills, No diaphoresis EENTM: No Blurred Vision, No Double Vision Respiratory: Denies Cough, Denies Shortness of Air Cardiovascular: Denies Chest Pain, Denies Edema Gastrointestinal: See HPI; Denies Abdomen Distended, Denies Abdominal Pain Genitourinary: Denies Burning, Denies Discharge Past Cobfoys-Equbvp-Jyrlth Hx Patient Social History Alcohol Use: Denies Use Recreational Drug Use: Yes Drug of Choice: XANAX, NARCOTICS, HAS ALSO TESTED + FOR METHAMPHETAMIES Smoking Status: Current Everyday Smoker Type Used: Cigarettes 2nd Hand Smoke Exposure: Yes Recent Foreign Travel: No Contact w/Someone Who Travel: No Recent Infectious Disease Expo: No Recent Hopitalizations: No Immunizations Up To Date Tetanus Booster (TDap): Less than 5yrs PED Vaccines UTD: No Date of Pneumonia Vaccine: May 26, 2017 Date of Influenza Vaccine: May 26, 2017 Seasonal Allergies Seasonal Allergies: No Past Medical History Surgeries: Yes (3 upper scopes for food bolus) Appendectomy, Ear Surgery, Gallbladder, Orthopedic Respiratory: Yes (PER OLD RECORDS, PT HAS COPD, BUT PT DENIES) Chronic Bronchitis, COPD, Emphysema Cardiac: Yes (MINIMAL, NON-OCCLUSIVE SMALL VESSEL DISEASE, EF 50% PER CATH ) Coronary Artery Disease, High Cholesterol, Hypertension Neurological: Yes (RESTLESS LEG SYNDROME) Reproductive Disorders: No Sexually Transmitted Disease: No HIV/AIDS: No Genitourinary: No Gastrointestinal: Yes (CHRONIC DYSPHAGIA AND HOARSENESS; ESOPHAGEAL STRICTURE) Gastroesophageal Reflux Musculoskeletal: Yes Degenerate Disk Disease, Chronic Back Pain Endocrine: No HEENT: Yes (POOR DENTITION; BMT'S ) Chronic Ear Infection Hearing Impairment: Hard of Hearing Cancer: Yes Skin Did You Recieve Any Treatments: Yes What Type of Treatment Did You: Surgical Intervention Psychosocial: Yes Anxiety, Suicide Attempts, Depression Integumentary: No Blood Disorders: No Adverse Reaction/Blood Tranf: No Family Medical History Cancer 03 FATHER (PROSTATE) 03 MOTHER (BREAST CA ) 09 BROTHER (THROAT/PANCREATIC) 09 SISTER (LIVER) DEAFNESS 03 FATHER 09 BROTHER Family history: Breast disease 03 MOTHER (BREAST CA) History of - respiratory disease Prostate cancer 03 FATHER Stroke 03 MOTHER Visual impairment Cancer Physical Exam Vital Signs Vital Signs - First Documented 05/25/18 16:48 Temp 96.8 Pulse 68 Resp 16 B/P (MAP) 157/98 (117) Pulse Ox 98 O2 Delivery Room Air Capillary Refill : Less Than 3 Seconds Height/Weight/BMI Height: 5'6.00" Weight: 130lbs. 0.0oz. 58.254081ye; 22.0 BMI Method:Stated General Appearance: WD/WN, mild distress HEENT: PERRL/EOMI, TMs normal, pharynx normal Neck: non-tender, full range of motion, supple, normal inspection Respiratory: chest non-tender, lungs clear, normal breath sounds, no respiratory distress, no accessory muscle use Cardiovascular: normal peripheral pulses, regular rate, rhythm Gastrointestinal: non tender, soft Progress/Results/Core Measures Results/Orders My Orders Orders - ROXANE COHEN Succinylcholine Injection (Succinylcholi (05/25/18 18:14) Propofol Injection (Diprivan Injection) (05/25/18 18:14) Fentanyl Injection (Sublimaze Injection (05/25/18 18:14) Midazolam Injection (Versed Injection) (05/25/18 18:14) Lactated Ringers (Lr 1000 Ml Iv Solution (05/25/18 18:23) Propofol Injection (Diprivan Injection) (05/25/18 18:38) Lactated Ringers (Lr 1000 Ml Iv Solution (05/25/18 18:59) Ondansetron Injection (Zofran Injectio (05/25/18 19:11) Glucagon Emergency Kit (Glucagon Emergen (05/25/18 19:12) Vital Signs/I&O 05/25/18 16:48 Temp 96.8 Pulse 68 Resp 16 B/P (MAP) 157/98 (117) Pulse Ox 98 O2 Delivery Room Air Blood Pressure Mean: 117 Progress Progress Note : Time: 20:58 Progress Note Patient is status post EGD and food bolus removal by Dr. Romero. He says he feels much better and has been instructed to be on a full liquid diet for 3 days. We have encouraged him to work his way back up to more solid foods. He has follow-up appointments. Consults : Consulting Physician: FLORECITA ROMERO DO Consults Notes Discussed the case with him and he remembers extracting food bolus 3 days ago putting the patient on a clear liquid diet. He will ready the EGD lab and form another EGD tonight. Departure Impression Primary Impression: ESOPHAGEAL OBSTRUCTION FROM FOOD BOLUS Disposition: 01 HOME, SELF-CARE Condition: Improved Departure-Patient Inst. Decision time for Depature: 20:59 Referrals: FLORECITA ROMERO DO NO,LOCAL PHYSICIAN (PCP) Primary Care Physician Patient Instructions: Food Obstruction Add. Discharge Instructions: Full liquid diet for the next 3 days and then slowly work your way back up to more solid foods. Chew your food very thoroughly before swallowing and cut it up in a very small pieces so even if you do choke on it and it will be a very small chunk and easier to pass. All discharge instructions reviewed with patient and/or family. Voiced understanding. ROXANE COHEN J May 25, 2018 18:08
[2018-05-25] MEDS ORDERED: fentaNYL INJECTION 100 MCG/2 ML AMP ONE (18:14)
[2018-05-25] MEDS ORDERED: MIDAZOLAM 2 MG/2 ML (VERSED) VIAL ONE (18:14)
[2018-05-25] MEDS ORDERED: SUCCINYLCHOLINE INJ 100 MG/5 ML SYR ONE (18:14)
[2018-05-25] MEDS ORDERED: proPOfol 200 MG/20 ML (DIPRIVAN) VIAL IV ONE ×2 (18:14→18:38)
[2018-05-25] MEDS ORDERED: LACTATED RINGERS 1,000 ML IV ONE ×2 (18:23→18:59)
[2018-05-25] MEDS ORDERED: ONDANSETRON 4 MG/2 ML (SDV) Z0FRAN ONE (19:11)
[2018-05-25] MEDS ORDERED: GLUCAGON EMERGENCY 1 MG/KIT ONE (19:12)
--- NOTE | 2018-05-25 19:41 | Discharge Inst-Simple/Standard ---
Discharge Inst-Standard Patient Instructions/Follow Up Plan of Care/Instructions/FU: Call Dr Mally Romero office and make appointment 1 week. Stay on liquid diet, nothing that can not be sucked through a straw for 1 week. No chicken, pork, or steak. Activity as Tolerated: Yes Discharge Diet: Liquid Diet FLORECITA ROMERO DO May 25, 2018 19:41
--- NOTE | 2018-05-25 19:42 | Progress Note-Post Operative ---
Post-Operative Progess Note Surgeon (s)/Periodontal Assistant (s) Surgeon FLORECITA MORALES DO Periodontal Assistant: na Pre-Operative Diagnosis dysphagia, esophageal food bolus Post-Operative Diagnosis same Procedure & Operative Findings Date of Procedure 05/25/18 Procedure Performed/Findings egd c removal food bolus Anesthesia Type gen Estimated Blood Loss Estimated blood loss (mL): none Specimens/Packing Specimens Removed na FLORECITA MOARLES DO May 25, 2018 19:42
[2018-05-25] MEDS ORDERED: MEPERIDINE (DEMEROL) INJ 50 MG/ML IVP ONE (20:00)
[2018-05-25] MEDS ORDERED: ONDANSETRON 4 MG/2 ML (SDV) Z0FRAN IVP PRN (20:00)
[2018-05-25] MEDS ORDERED: morphine INJ 10 MG/ML 1ML (SYR OR VIAL) IVP ONE (20:00)
[2018-05-25 21:09] VITALS: BP 150/91
--- NOTE | 2018-05-27 03:56 | OPERATIVE REPORT ---
DATE OF SERVICE: 05/25/2018 PREOPERATIVE DIAGNOSIS: Food bolus, dysphagia. POSTOPERATIVE DIAGNOSIS: Food bolus, dysphagia. PROCEDURE: EGD with removal of food bolus. SURGEON: Florecita Romero DO ANESTHESIA: General. ESTIMATED BLOOD LOSS: None. COMPLICATIONS: None. INDICATIONS: The patient is a 63-year-old male who 3 days ago had food bolus of chicken. He had EGD to remove the food bolus at that time. He was instructed to follow a liquid diet, but began eating steak burrito earlier today. He had food bolus get stuck again today of steak burrito. He has been unable to keep fluids down or his saliva. He has been having nausea and vomiting. The patient was discussed risks and benefits of procedure and wished to proceed with the procedure. Consent was signed in the chart. DESCRIPTION OF PROCEDURE: The patient was taken to the endoscopy suite, placed in the supine position. General anesthesia was provided with endotracheal tube intubation. A timeout was performed. Scope was inserted in the mouth down the esophagus encountering a large amount of salivary secretions. This was suctioned out. Multiple large pieces of steak was visualized in the distal portion of the esophagus. Using multiple tools, such as a basket endoloop forceps and foreign body grasper, they were all used to continue to remove the food bolus. Lot of this appears to be solid unchewed food. Multiple insertions and withdrawals were made in order to clear the esophagus. The esophagus then was able to be advanced through the esophagus into the stomach without difficulty. The GE junction was widely patent. The scope was inserted in the stomach, which just had some slight erythematous changes. Scope was continued to be inserted through the pylorus and into the duodenum. There were no polyps, masses or ulcerations in the duodenum. Scope was slowly retracted back into the stomach, which again had some slight erythematous changes. Scope was retroflexed noting no other significant pathology. Scope was returned to its normal position, slowly withdrawn back through the GE junction, which again appeared to be widely patent. Scope was slowly retracted back until completely removed. The patient instructed to stay on liquid diet. He is to continue on Protonix and Carafate. One of the major issues appears that the patient is not for some reason able to chew the food. Therefore, we will discuss further options. We will consider getting a barium swallow to see how the function of the esophagus is. The patient will have followup arranged. The patient tolerated the procedure well without complications. Job ID: [id number] DocumentID: [id number] Dictated Date: 05/26/2018 20:25:16 Continuous Dryout Operator Helper Date: 05/26/2018 20:54:53 Dictated By: FLORECITA ROMERO DO
== END 2018-05-25 21:10 | disposition home or self-care (01) ==
LOC: EDUNIT# 16:34 → ER 16:35
DX: T18.120A Food in esophagus causing compression of trachea, initial encounter (principal); J43.9 Emphysema, unspecified; E78.00 Pure hypercholesterolemia, unspecified; I10 Essential (primary) hypertension; G25.81 Restless legs syndrome; K21.9 Gastro-esophageal reflux disease without esophagitis; F41.9 Anxiety disorder, unspecified; F32.9 Major depressive disorder, single episode, unspecified; I25.10 Atherosclerotic heart disease of native coronary artery without angina pectoris; F15.10 Other stimulant abuse, uncomplicated; F17.210 Nicotine dependence, cigarettes, uncomplicated; Z85.828 Personal history of other malignant neoplasm of skin; Z91.5 Personal history of self-harm; Z80.8 Family history of malignant neoplasm of other organs or systems; Z80.3 Family history of malignant neoplasm of breast; Z80.0 Family history of malignant neoplasm of digestive organs; Z88.6 Allergy status to analgesic agent; Z90.89 Acquired absence of other organs
CPT/HCPCS: 99282

== ENCOUNTER 2018-08-15 18:52 | Emergency (ER) | payer MEDICARE ==
[~2018-08-15] VITALS: Ht 167.6 cm; Wt 59.0 kg
--- OUTSIDE RECORDS SUMMARY | 2018-08-15 18:58 | XMS REPORT | Clinical Summary ---
Author Author [facility] Organization [facility] Address Unknown Phone Unavailable Care Team Providers Care Pipeline Construction Inspector Name Role Phone Unverified, Unverified Md PCP Unavailable Source Comments Some departments are not documenting in the electronic medical record. If you do not see the information that you expected, contact Release of Information in the Health Information Management department at [phone] for further assistance in locating additional records.[facility] Allergies Not on File Medications Not on file Active Problems Not on file Social History Date Tobacco Use Types Packs/Day Years Used Never Assessed Sex Assigned at Date Recorded Not on file Industry Job Start Date Occupation Not on file Not on file Not on file Travel End Travel History Travel Start No recent travel history available. Last Filed Vital Signs Not on file Plan of Treatment Health Maintenance Due Date Last Done Comments HEPATITIS C SCREENING 1955 PHYSICAL (COMPREHENSIVE) 1962 EXAM HIV SCREENING 1970 DTAP/TDAP VACCINES (1 - 1973 Tdap) COLORECTAL CANCER 2005 SCREENING SHINGLES RECOMBINANT 2005 VACCINE (1 of 2) INFLUENZA VACCINE 03/17/2018 Results Not on filefrom Last 3 Months
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
[2018-08-15 19:08] VITALS: BP 144/84
[2018-08-15] MEDS ORDERED: GLUCAGON EMERGENCY 1 MG/KIT IV ONE (19:30)
[2018-08-15] MEDS ORDERED: ONDANSETRON 4 MG/2 ML (SDV) Z0FRAN IVP ONE (19:30)
--- NOTE | 2018-08-15 19:35 | ED GI ---
General Chief Complaint: Foreign Body Stated Complaint: FOOD STUCK IN THROAT Source of Information: Patient Exam Limitations: No Limitations History of Present Illness Date Seen by Provider: Aug 15, 2018 Time Seen by Provider: 19:34 Initial Comments To ER with reports of food stuck in his throat. He was eating steak today at 11 AM when it became stuck. He has been unable to swallow since then. He said this happened several times over the past year with several endoscopies done by Dr. Romero. Timing/Duration: 1/2 Hour Severity/Quality: Moderate Radiation: No Radiation Activities at Onset: None Allergies and Home Medications Allergies Coded Allergies: ibuprofen (Verified Allergy, Unknown, 04/05/15) HYPERTENSION Home Medications Pantoprazole Sodium 40 Mg Tablet., 40 MG PO DAILY Prescribed by: FLORECITA ROMERO on 05/22/18 697 Sucralfate 1 Gm Tablet, 1 GM PO QID crush pill and mix with teaspoon of water to make a slurry then drink. Prescribed by: FLORECITA ROMERO on 05/22/18 946 Patient Home Medication List Home Medication List Reviewed: Yes Review of Systems Review of Systems Constitutional: see HPI EENTM: No Symptoms Reported Respiratory: No Symptoms Reported Cardiovascular: No Symptoms Reported Gastrointestinal: See HPI, Other (dysphagia) Genitourinary: No Symptoms Reported Musculoskeletal: no symptoms reported Skin: no symptoms reported Psychiatric/Neurological: No Symptoms Reported Endocrine: No Symptoms Reported Hematologic/Lymphatic: No Symptoms Reported Past Mvvxoyl-Pjjyup-Tfydlg Hx Patient Social History Drug of Choice: XANAX, NARCOTICS, HAS ALSO TESTED + FOR METHAMPHETAMIES Type Used: Cigarettes 2nd Hand Smoke Exposure: Yes Recent Foreign Travel: No Contact w/Someone Who Travel: No Recent Hopitalizations: No Immunizations Up To Date Tetanus Booster (TDap): Less than 5yrs PED Vaccines UTD: No Date of Pneumonia Vaccine: May 26, 2017 Date of Influenza Vaccine: May 26, 2017 Seasonal Allergies Seasonal Allergies: No Past Medical History Surgeries: Yes (3 upper scopes for food bolus) Appendectomy, Ear Surgery, Gallbladder, Orthopedic Respiratory: Yes (PER OLD RECORDS, PT HAS COPD, BUT PT DENIES) Chronic Bronchitis, COPD, Emphysema Cardiac: Yes (MINIMAL, NON-OCCLUSIVE SMALL VESSEL DISEASE, EF 50% PER CATH ) Coronary Artery Disease, High Cholesterol, Hypertension Neurological: Yes (RESTLESS LEG SYNDROME) Reproductive Disorders: No Sexually Transmitted Disease: No HIV/AIDS: No Genitourinary: No Gastrointestinal: Yes (CHRONIC DYSPHAGIA AND HOARSENESS; ESOPHAGEAL STRICTURE) Gastroesophageal Reflux Musculoskeletal: Yes Degenerate Disk Disease, Chronic Back Pain Endocrine: No HEENT: Yes (POOR DENTITION; BMT'S ) Chronic Ear Infection Hearing Impairment: Hard of Hearing Cancer: Yes Skin Did You Recieve Any Treatments: Yes What Type of Treatment Did You: Surgical Intervention Psychosocial: Yes Anxiety, Suicide Attempts, Depression Integumentary: No Blood Disorders: No Adverse Reaction/Blood Tranf: No Family Medical History Cancer 03 FATHER (PROSTATE) 03 MOTHER (BREAST CA ) 09 BROTHER (THROAT/PANCREATIC) 09 SISTER (LIVER) DEAFNESS 03 FATHER 09 BROTHER Family history: Breast disease 03 MOTHER (BREAST CA) History of - respiratory disease Prostate cancer 03 FATHER Stroke 03 MOTHER Visual impairment Cancer Physical Exam Vital Signs Vital Signs - First Documented 08/15/18 19:08 Temp 96.9 Pulse 79 Resp 18 B/P (MAP) 144/84 (104) Pulse Ox 95 O2 Delivery Room Air Capillary Refill : Height/Weight/BMI Height: 5'6.00" Weight: 130lbs. 0.0oz. 58.946254nx; 22.0 BMI Method:Stated General Appearance: WD/WN, no apparent distress HEENT: PERRL/EOMI, normal ENT inspection Neck: non-tender, full range of motion Respiratory: no respiratory distress, no accessory muscle use Cardiovascular: regular rate, rhythm, no murmur Gastrointestinal: normal bowel sounds, non tender, soft Extremities: normal range of motion, non-tender Neurologic/Psychiatric: alert, normal mood/affect, oriented x 3 Skin: normal color, warm/dry Progress/Results/Core Measures Results/Orders Lab Results Laboratory Tests Test 08/15/18 19:45 Range/Units White Blood Count 9.8 4.3-11.0 10^3/uL Red Blood Count 4.59 4.35-5.85 10^6/uL Hemoglobin 14.5 13.3-17.7 G/DL Hematocrit 44 40-54 % Mean Corpuscular Volume 96 80-99 FL Mean Corpuscular Hemoglobin 32 25-34 PG Mean Corpuscular Hemoglobin Concent 33 32-36 G/DL Red Cell Distribution Width 13.5 10.0-14.5 % Platelet Count 225 130-400 10^3/uL Mean Platelet Volume 8.5 7.4-10.4 FL Neutrophils (%) (Auto) 67 42-75 % Lymphocytes (%) (Auto) 25 12-44 % Monocytes (%) (Auto) 7 0-12 % Eosinophils (%) (Auto) 0 0-10 % Basophils (%) (Auto) 0 0-10 % Neutrophils # (Auto) 6.6 1.8-7.8 X 10^3 Lymphocytes # (Auto) 2.4 1.0-4.0 X 10^3 Monocytes # (Auto) 0.7 0.0-1.0 X 10^3 Eosinophils # (Auto) 0.0 0.0-0.3 10^3/uL Basophils # (Auto) 0.0 0.0-0.1 10^3/uL Sodium Level 140 135-145 MMOL/L Potassium Level 3.4 L 3.6-5.0 MMOL/L Chloride Level 103 98-107 MMOL/L Carbon Dioxide Level 24 21-32 MMOL/L Anion Gap 13 5-14 MMOL/L Blood Urea Nitrogen 16 7-18 MG/DL Creatinine 0.79 0.60-1.30 MG/DL Estimat Glomerular Filtration Rate > 60 BUN/Creatinine Ratio 20 Glucose Level 106 H 70-105 MG/DL Calcium Level 9.3 8.5-10.1 MG/DL Corrected Calcium 9.2 8.5-10.1 MG/DL Total Bilirubin 0.4 0.1-1.0 MG/DL Aspartate Amino Transf (AST/SGOT) 14 5-34 U/L Alanine Aminotransferase (ALT/SGPT) 13 0-55 U/L Alkaline Phosphatase 82 40-136 U/L Total Protein 7.2 6.4-8.2 GM/DL Albumin 4.1 3.2-4.5 GM/DL My Orders Orders - ALBA ROSA CUSTOMER DEVELOPMENT MANAGER Ondansetron Injection (Zofran Injectio (08/15/18 19:30) Lorazepam Injection (Ativan Injection) (08/15/18 20:00) Medications Given in ED Current Medications Medications Dose Ordered Sig/Isabell Route Start Time Stop Time Status Last Admin Dose Admin Glucagon 1 mg ONCE ONCE IV 08/15/18 19:30 08/15/18 19:31 DC 08/15/18 19:59 1 MG Lorazepam 0.5 mg ONCE PRN IVP 08/15/18 20:00 08/15/18 19:58 0.5 MG Ondansetron HCl 4 mg ONCE ONCE IVP 08/15/18 19:30 08/15/18 19:31 DC 08/15/18 19:58 4 MG Vital Signs/I&O 08/15/18 19:08 Temp 96.9 Pulse 79 Resp 18 B/P (MAP) 144/84 (104) Pulse Ox 95 O2 Delivery Room Air Departure Communication (Admissions) Time/Spoke to Admitting Phy: 20:34 Discussed the case with Dr. No on-call for surgery. We will admit, IV fluids, glucagon has been attempted in the emergency room without success, Ativan 1 mg IV every 6 hours, Zofran for nausea, Protonix 40 mg IV twice a day, Espinoza at the bedside and scheduled for EGD at 930AM 2100-discussed the plan to admit observation with the patient and do EGD in the morning. Patient states he does not want to stay in the hospital and will sign out AGAINST MEDICAL ADVICE and come back to the emergency room in the morning Impression Primary Impression: ESOPHAGEAL OBSTRUCTION FROM FOOD BOLUS Disposition: 07 AGAINST MEDICAL ADVICE Condition: Against Medical Advice Admissions Decision to Admit Reason: Admit from ER (General) Decision to Admit/Date: Aug 15, 2018 Time/Decision to Admit Time: 20:34 Departure-Patient Inst. Referrals: NO,LOCAL PHYSICIAN (PCP/Family) Primary Care Physician ALBA ROSA APRN Aug 15, 2018 19:35
[2018-08-15 19:55] LABS: BASOPHILS % (AUTO) 0 % (0-10); EOSINOPHILS % (AUTO) 0 % (0-10); HEMATOCRIT 44 % (40-54); HEMOGLOBIN 14.5 G/DL (13.3-17.7); LYMPHOCYTES # (AUTO) 2.4 X 10^3 (1.0-4.0); LYMPHOCYTES % (AUTO) 25 % (12-44); MEAN CORPUSCULAR HEMOGLOBIN 32 PG (25-34); MEAN CORPUSCULAR HGB CONC 33 G/DL (32-36); MEAN CORPUSCULAR VOLUME 96 FL (80-99); MEAN PLATELET VOLUME 8.5 FL (7.4-10.4); MONOCYTES # (AUTO) 0.7 X 10^3 (0.0-1.0); MONOCYTES % (AUTO) 7 % (0-12); NEUTROPHILS # (AUTO) 6.6 X 10^3 (1.8-7.8); NEUTROPHILS % (AUTO) 67 % (42-75); PLATELET COUNT 225 10^3/uL (130-400); RED BLOOD COUNT 4.59 10^6/uL (4.35-5.85); RED CELL DISTRIBUTION WIDTH 13.5 % (10.0-14.5); WHITE BLOOD COUNT 9.8 10^3/uL (4.3-11.0)
[2018-08-15] MEDS ORDERED: LORazepam INJ 2 MG/ML (ATIVAN) VIAL IVP PRN (20:00)
[2018-08-15 20:14] LABS: ALANINE AMINOTRANSFERASE 13 U/L (0-55); ALBUMIN 4.1 GM/DL (3.2-4.5); ALKALINE PHOSPHATASE 82 U/L (40-136); BILIRUBIN,TOTAL 0.4 MG/DL (0.1-1.0); BUN/CREATININE RATIO 20; CALCIUM 9.3 MG/DL (8.5-10.1); CARBON DIOXIDE 24 MMOL/L (21-32); CHLORIDE 103 MMOL/L (98-107); CREATININE SERUM 0.79 MG/DL (0.60-1.30); GFR ESTIMATED > 60; GLUCOSE 106 MG/DL (70-105); POTASSIUM 3.4 MMOL/L (3.6-5.0); SODIUM 140 MMOL/L (135-145); TOTAL PROTEIN 7.2 GM/DL (6.4-8.2)
--- NOTE | 2018-08-15 20:31 | Diagnostic Imaging Report ---
INDICATION: Piece of steak stuck in throat. TECHNIQUE: Two view chest 8:36 PM CORRELATION STUDY: 09/02/2017 FINDINGS: Heart size, mediastinum, and vasculature overall within normal limits. Lung bradley are hyperinflated with changes of COPD. No infiltrate. No radiographic evidence for abnormal density over the trachea. Density posteriorly on the right unchanged, appearing to represent a battery pack. Multifocal cervical spinal fusion hardware present. IMPRESSION: 1. Chronic changes of the lung parenchyma. Negative for acute cardiopulmonary abnormality. Dictated by: Dictated on workstation # [id number]
== END 2018-08-15 21:05 | disposition left against medical advice (07) ==
LOC: EDUNIT# 18:52 → ER 18:54
DX: T18.120A Food in esophagus causing compression of trachea, initial encounter (principal); J43.9 Emphysema, unspecified; I25.10 Atherosclerotic heart disease of native coronary artery without angina pectoris; I10 Essential (primary) hypertension; E78.00 Pure hypercholesterolemia, unspecified; G25.81 Restless legs syndrome; K21.9 Gastro-esophageal reflux disease without esophagitis; F41.9 Anxiety disorder, unspecified; F32.9 Major depressive disorder, single episode, unspecified; Z80.0 Family history of malignant neoplasm of digestive organs; Z80.42 Family history of malignant neoplasm of prostate; Z91.5 Personal history of self-harm; Z92.21 Personal history of antineoplastic chemotherapy; Z85.828 Personal history of other malignant neoplasm of skin; Z87.19 Personal history of other diseases of the digestive system; Z95.9 Presence of cardiac and vascular implant and graft, unspecified; Z88.6 Allergy status to analgesic agent; Z77.22 Contact with and (suspected) exposure to environmental tobacco smoke (acute) (chronic); Z90.49 Acquired absence of other specified parts of digestive tract
CPT/HCPCS: 36415; 71046; 80053; 85025

== ENCOUNTER 2018-08-16 05:45 | Day surgery (SDC) | payer MEDICARE ==
[~2018-08-16] VITALS: Ht 167.6 cm; Wt 59.0 kg
[2018-08-16] MEDS ORDERED: fentaNYL INJECTION 100 MCG/2 ML AMP IVP STA ×2 (06:41→08:42)
[2018-08-16] MEDS ORDERED: NS IV 1000 ML 1,000 ML IV ONE (06:41)
[2018-08-16] MEDS ORDERED: ONDANSETRON 4 MG/2 ML (SDV) Z0FRAN IVP ONE (06:45)
--- NOTE | 2018-08-16 06:47 | ED GI ---
General Chief Complaint: Foreign Body Stated Complaint: THROAT PAIN Nursing Triage Note: STEAK FOOD BOLUS STUCK IN THROAT Sepsis Screen: No Definite Risk Source of Information: Patient Exam Limitations: No Limitations History of Present Illness Date Seen by Provider: Aug 16, 2018 Time Seen by Provider: 06:39 Initial Comments Here with complaint of food bolus still stuck in his throat. He was eating beef and got second-story yesterday at about 11 a.m. He was seen last night but did not want to be admitted and so he went home. Overnight he continued to vomit or spit and mucus. Returns this morning due to persistence of food bolus. This is not his first time with fluid bolus. Denies fever or chills. Timing/Duration: 24 Hours Severity/Quality: Moderate Location: Other (throat) Radiation: No Radiation Activities at Onset: Other (eating) Modifying Factors: Worsens With Eating; Improves With Resting Associated Symptoms: No Back Pain, No Chest Pain, No Fever/Chills; Nausea/ Vomiting; No Shortness of Air, No Swelling/Mass in Abdomen, No Weakness Allergies and Home Medications Allergies Coded Allergies: ibuprofen (Verified Allergy, Unknown, 04/05/15) HYPERTENSION Home Medications Pantoprazole Sodium 40 Mg Tablet.dr, 40 MG PO DAILY Prescribed by: FLORECITA MORALES on 05/22/18 202 Sucralfate 1 Gm Tablet, 1 GM PO QID crush pill and mix with teaspoon of water to make a slurry then drink. Prescribed by: FLORECITA MORALES on 05/22/181558 Patient Home Medication List Home Medication List Reviewed: Yes Review of Systems Review of Systems Constitutional: see HPI; No chills, No fever Respiratory: No Symptoms Reported Cardiovascular: No Symptoms Reported Gastrointestinal: Abdominal Pain ((esophageal), Vomiting Genitourinary: No Symptoms Reported Musculoskeletal: no symptoms reported Skin: no symptoms reported Psychiatric/Neurological: No Symptoms Reported; Denies Weakness Endocrine: No Symptoms Reported All Other Systems Reviewed Negative Unless Noted: Yes Past Rcdrpfj-Aiudjy-Kpmtaw Hx Past Med/Social Hx: Reviewed Nursing Past Med/Soc Hx Patient Social History Alcohol Use: Denies Use Recreational Drug Use: Yes Drug of Choice: XANAX, NARCOTICS, HAS ALSO TESTED + FOR METHAMPHETAMIES Smoking Status: Current Someday Smoker Type Used: Cigarettes 2nd Hand Smoke Exposure: Yes Recent Foreign Travel: No Contact w/Someone Who Travel: No Recent Infectious Disease Expo: No Recent Hopitalizations: No Physical Abuse: No Sexual Abuse: No Immunizations Up To Date Tetanus Booster (TDap): Less than 5yrs PED Vaccines UTD: No Date of Pneumonia Vaccine: May 26, 2017 Date of Influenza Vaccine: May 26, 2017 Seasonal Allergies Seasonal Allergies: No Past Medical History Surgeries: Yes (3 upper scopes for food bolus) Appendectomy, Ear Surgery, Gallbladder, Orthopedic Respiratory: Yes (PER OLD RECORDS, PT HAS COPD, BUT PT DENIES) Chronic Bronchitis, COPD, Emphysema Cardiac: Yes (MINIMAL, NON-OCCLUSIVE SMALL VESSEL DISEASE, EF 50% PER CATH ) Coronary Artery Disease, High Cholesterol, Hypertension Neurological: Yes (RESTLESS LEG SYNDROME) Reproductive Disorders: No Sexually Transmitted Disease: No HIV/AIDS: No Genitourinary: No Gastrointestinal: Yes (CHRONIC DYSPHAGIA AND HOARSENESS; ESOPHAGEAL STRICTURE) Gastroesophageal Reflux Musculoskeletal: Yes Degenerate Disk Disease, Chronic Back Pain Endocrine: No HEENT: Yes (POOR DENTITION; BMT'S ) Chronic Ear Infection Hearing Impairment: Hard of Hearing Cancer: Yes Skin Did You Recieve Any Treatments: Yes What Type of Treatment Did You: Surgical Intervention Psychosocial: Yes Anxiety, Suicide Attempts, Depression Integumentary: No Blood Disorders: No Adverse Reaction/Blood Tranf: No Family Medical History Reviewed Nursing Family Hx Cancer 03 FATHER (PROSTATE) 03 MOTHER (BREAST CA ) 09 BROTHER (THROAT/PANCREATIC) 09 SISTER (LIVER) DEAFNESS 03 FATHER 09 BROTHER Family history: Breast disease 03 MOTHER (BREAST CA) History of - respiratory disease Prostate cancer 03 FATHER Stroke 03 MOTHER Visual impairment Cancer Physical Exam Vital Signs Vital Signs - First Documented 08/16/18 06:14 Temp 97.3 Pulse 67 Resp 20 B/P (MAP) 136/93 (107) Pulse Ox 96 O2 Delivery Room Air Capillary Refill : Less Than 3 Seconds Height/Weight/BMI Height: 5'6.00" Weight: 130lbs. 0.0oz. 58.905828tc; 22.0 BMI Method:Stated General Appearance: WD/WN, no apparent distress Neck: full range of motion, supple Respiratory: lungs clear, normal breath sounds Cardiovascular: regular rate, rhythm, no murmur Gastrointestinal: non tender, soft Extremities: non-tender, normal inspection Back: normal inspection, no CVA tenderness, no vertebral tenderness Neurologic/Psychiatric: alert, oriented x 3 Skin: normal color, warm/dry Progress/Results/Core Measures Results/Orders My Orders Orders - DIEGO NEWBERRY MD Saline Lock/Iv-Start (08/16/18 06:41) Ns Iv 1000 Ml (Sodium Chloride 0.9%) (08/16/18 06:41) Ondansetron Injection (Zofran Injectio (08/16/18 06:45) Fentanyl Injection (Sublimaze Injection (08/16/18 06:41) Fentanyl Injection (Sublimaze Injection (08/16/18 08:42) Medications Given in ED Current Medications Medications Dose Ordered Sig/Isabell Route Start Time Stop Time Status Last Admin Dose Admin Ondansetron HCl 4 mg ONCE ONCE IVP 08/16/18 06:45 08/16/18 06:46 DC 08/16/18 06:48 4 MG Sodium Chloride 1,000 ml @ 0 mls/hr Q0M ONCE IV 08/16/18 06:41 08/16/18 06:43 DC 08/16/18 06:48 0 MLS/HR Vital Signs/I&O 08/16/18 06:14 Temp 97.3 Pulse 67 Resp 20 B/P (MAP) 136/93 (107) Pulse Ox 96 O2 Delivery Room Air Blood Pressure Mean: 107 Progress Progress Note : Progress Note Seen and evaluated. I did discuss the case with Dr. No at 0642. He will take the patient to endoscopy at 930. This was discussed with the patient who agrees. Nursing liquefaction supervisor notified. Departure Communication (Admissions) Time/Spoke to Admitting Phy: 06:42 Impression Primary Impression: Esophageal obstruction due to food impaction Disposition: ADMITTED INPATIENT Condition: Stable Admissions Decision to Admit Reason: Admit from ER (General) Decision to Admit/Date: Aug 16, 2018 Time/Decision to Admit Time: 06:42 Departure-Patient Inst. Referrals: NO,LOCAL PHYSICIAN (PCP/Family) Primary Care Physician DIEGO NEWBERRY MD Aug 16, 2018 06:47
--- OUTSIDE RECORDS SUMMARY | 2018-08-16 09:31 | XMS REPORT | Clinical Summary ---
Author Author [facility] Organization [facility] Address Unknown Phone Unavailable Care Team Providers Care Senior Accounting Specialist Name Role Phone Unverified, Unverified Md PCP Unavailable Source Comments Some departments are not documenting in the electronic medical record. If you do not see the information that you expected, contact Release of Information in the Health Information Management department at [phone] for further assistance in locating additional records.[facility] Allergies Not on File Medications Not on [...]
--- OUTSIDE RECORDS SUMMARY | 2018-08-16 09:39 | XMS REPORT | Continuity of Care Document ---
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 12/25/2017 11:25:00 Document Registration [id number] 12/25/2017 11:25:00 Document Registration [id number] 12/25/2017 11:25:00 Document Registration [id number] 12/25/2017 11:25:00 Document Registration [id number] 12/25/2017 11:25:00 Document Registration [id number] 12/25/2017 11:25:00 Document Registration [id number] 12/25/2017 11:25:00 Document Registration [id number] 12/29/2016 10:16:00 Document Registration [id number] 02/03/2016 23:43:00 Document Registration [id number] 12/06/2014 15:32:00 Document Registration [id number] 12/06/2014 15:32:00 Document Registration [id number] 12/06/2014 15:32:00 Document Registration [id number] 12/06/2014 15:32:00 Document Registration [id number] 08/03/2012 18:02:00 Document Registration [id number] 03/12/2012 14:36:00 Document Registration [id number] 01/29/2012 05:38:00 Document Registration [id number] 01/26/2012 08:48:00 Document Registration [id number] 01/25/2012 11:08:00 Document Registration [id number] 08/30/2011 11:14:00 Document Registration [id number] 04/03/2011 16:18:00 Document Registration [id number] 02/18/2011 14:42:00 Document Registration [id number] 09/11/2010 11:03:00 Document Registration [id number] 08/20/2010 10:07:00 Document Registration [id number] 08/18/2010 11:25:00 Document Registration [id number] 08/12/2010 16:16:00 Document Registration [id number] 09/22/2009 15:46:00 Document Registration [id number] 11/08/2008 13:16:00 Document Registration [id number] 10/25/2005 12:46:00 Document Registration [id number] 08/31/2017 16:00:00 08/31/2017 23:59:59 [facility]AD[facility]YER [facility] [id number] 05/28/2017 15:00:00 Document Registration
[2018-08-16] MEDS ORDERED: NS IV 500 ML 500 ML IV PRN (09:47)
--- NOTE | 2018-08-16 09:50 | NUR ---
PT TRANSFERRED PER CART FROM ED #10 TO ENDO RM #6 FOR EGD WITH REMOVAL OF FOOD BOLUS. PT A/O X4. COLOR PINK, SKIN W/D. RESP. EVEN AND UNLABORED ON RA. ORIENTED TO RM AND STAFF. DENIES PAIN OR DISCOMFORT; NO RESP. DISTRESS NOTED WITH FOOD BOLUS. HL INTACT RT AC SPACE; NO S/SX INFILLTRATION NOTED. 1000 500ml NS HUNG PER GRAVITY TO RT AC HL SITE; INFUSING WITHOUT DIFFICULTY. NO S/SX OF INFILLTRATION NOTED. 1005 PT TRANSFERRED PER CART TO ENDO RM #2 FOR EGD PROC. WITH POSSIBLE DILATATION AND FOREIGN BODY REMOVAL; SIDERAILS UP X2. ACCOMPANIED BY RN; NO CHANGE IN ASSESSMENT.
[2018-08-16] MEDS ORDERED: LIDOCAINE JELLY 2% 6 ML SYRINGE MM PRN (10:00)
[2018-08-16] MEDS ORDERED: NS IV 500 ML 500 ML ONE (10:00)
[2018-08-16] MEDS ORDERED: HURRICAINE EXT TUBE (BENZOCAINE) XX PRN (10:00)
[2018-08-16] MEDS ORDERED: MIDAZOLAM 2 MG/2 ML (VERSED) VIAL IVP ONE (10:00)
[2018-08-16] MEDS ORDERED: fentaNYL INJECTION 100 MCG/2 ML AMP IVP ONE (10:00)
[2018-08-16] MEDS ORDERED: LIDOCAINE JELLY 2% 6 ML SYRINGE ONE (10:09)
[2018-08-16] MEDS ORDERED: MIDAZOLAM 2 MG/2 ML (VERSED) VIAL ONE ×6 (10:09→10:19)
[2018-08-16] MEDS ORDERED: fentaNYL INJECTION 100 MCG/2 ML AMP ONE ×2 (10:09)
[2018-08-16] MEDS ORDERED: HURRICAINE EXT TUBE (BENZOCAINE) ONE (10:10)
--- NOTE | 2018-08-16 10:31 | HISTORY AND PHYSICAL ---
DATE OF SERVICE: HISTORY OF PRESENT ILLNESS: The patient is a 63-year-old male with a history of dysphagia, gastroesophageal reflux disease and noncompliance. He has had esophageal foreign bodies done three previous times and was placed on medication; however, never followed up with any physicians. He came in last night; however, left AMA and returned this morning with the same issue with dysphagia. He does not report any hematemesis, no coffee ground emesis. He does feel substernal pressure sensation. PAST MEDICAL HISTORY: Esophageal stricture, gastroesophageal reflux disease, coronary artery disease, hypercholesterolemia, hypertension, COPD, degenerative joint disease, anxiety, and depression. PAST SURGICAL HISTORY: Cholecystectomy, orthopedic procedure. ALLERGIES: IBUPROFEN. MEDICATIONS: Protonix, Carafate. SOCIAL HISTORY: Positive smoke, history of opioid and other illicit drugs. FAMILY HISTORY: Mother with breast cancer. Father with prostate cancer. Brother with pancreatic cancer. Sister with liver cancer. REVIEW OF SYSTEMS: A well-nourished male, currently in no acute distress. He is not experiencing any shortness of breath or difficulty breathing. He does have substernal chest pressure sensation and difficulty swallowing as well as regurgitation on an intermittent basis of saliva. No hematemesis, no coffee ground emesis, no diarrhea or constipation, no red blood per rectum, and no dark tarry stools. No fever or chills, no recent inadvertent weight loss. All other review of systems is negative. PHYSICAL EXAMINATION: VITAL SIGNS: Temperature is 96.9, blood pressure 144/84, pulse 79, respirations 18, and pulse ox 95% on room air. CHEST: Scattered expiratory wheezes bilaterally. HEART: Regular, no murmurs. EXTREMITIES: No lower extremity edema, negative Homans sign. HEENT: No scleral icterus. NECK: No cervical lymphadenopathy. ABDOMEN: Soft, nondistended. There is mild discomfort in the epigastric region upon deep palpation. No peritoneal signs. SKIN: Warm, dry. ASSESSMENT AND PLAN: A 63-year-old male with a history of esophageal stricture, gastroesophageal reflux disease and history of noncompliance with multiple esophageal foreign bodies as well as noncompliance. He continues to smoke and eat the wrong foods and proceed with the necessary lifestyle changes and also is noncompliant medically. He again presents with esophageal foreign body. We will proceed with EGD, removal of the foreign body as well as dilatation. Job ID: [id number] DocumentID: [id number] Dictated Date: 08/16/2018 10:07:55 Prep Manager Date: 08/16/2018 10:31:09 Dictated By: RIK BRADY MD
--- NOTE | 2018-08-16 10:51 | Conscious Sedation/ASA ---
Conscious Sedation Pre-Proced Time 09:00 ASA Score 3 For ASA 3 and 4: Consider anesthesia and medical clearance. Also, for patients with a history of failed moderate sedation consider anesthesia. Airway Lungs Heart ASA score ASA 1: a normal healthy patient ASA 2: a patient with a mild systemic disease (mid diabetes, controlled hypertension, obesity ASA 3: a patient with a severe systemic disease that limits activity (angina , COPD, prior Myocardial infarction) ASA 4: a patient with an incapacitating disease that is a constant threat to life (CHF, renal failure) ASA 5: a moribund patient not expected to survive 24 hrs. (ruptured aneurysm) ASA 6: a declared brain patient whose organs are being harvested. For emergent operations, add the letter E after the classification Mallampati Classification Grade 2 Sedation Plan Analgesia, Amnesia, Plan communicated to team members, Discussed options with patient/fam, Discussed risks with patient/fam The patient is an appropriate candidate to undergo the planned procedure, sedation, and anesthesia. The patient immediately re-assessed prior to indication. RIK BRADY MD Aug 16, 2018 10:51
--- NOTE | 2018-08-16 10:52 | Progress Note-Pre Operative ---
Pre-Operative Progress Note H&P Reviewed The H&P was reviewed, patient examined and no changes noted. Date Seen by Provider: Aug 16, 2018 Time Seen by Provider: 09:00 Date H&P Reviewed: Aug 16, 2018 Time H&P Reviewed: 09:00 Pre-Operative Diagnosis: GERD, esoph stricture, recurrent FB RIK BRADY MD Aug 16, 2018 10:52
--- NOTE | 2018-08-16 10:54 | Progress Note-Post Operative ---
Post-Operative Progess Note Surgeon (s)/Scale Clerk (s) Surgeon RIK BRADY MD Scale Clerk: none Pre-Operative Diagnosis GERD, esoph stricture, recurrent FB Post-Operative Diagnosis reflux esophagitis(grade 3), esophageal foreign body, esophageal stricture, moderate gastritis. Procedure & Operative Findings Date of Procedure 08/16/18 Procedure Performed/Findings EGD with removal foreign body, biopsy, balloon dilation. Anesthesia Type CS Estimated Blood Loss Estimated blood loss (mL): minimal Specimens/Packing Specimens Removed none RIK BRADY MD Aug 16, 2018 10:54
--- NOTE | 2018-08-16 10:56 | Discharge Inst-Surgical ---
D/C Lap Instructions-CAITLYN Follow Up Appt in 6 weeks Activity as tolerated High Fiber Diet 25g or more per day Avoid Alcohol, Caffeine, Spicy [place] and Acid foods. Drink 64 fluid oz or more of fluids per day. Symptoms to Report: Fever over 101 degree F, Nausea/Vomiting If any problems/questions: Contact your physician or go to Emergency Room RIK BRADY MD Aug 16, 2018 10:55
[2018-08-16] MEDS ORDERED: HYDROcodone/APAP 5 MG/325 MG (LORTAB) TAB PO PRN (11:00)
[2018-08-16] MEDS ORDERED: ONDANSETRON 4 MG/2 ML (SDV) Z0FRAN IV PRN (11:00)
[2018-08-16] MEDS ORDERED: ACETAMINOPHEN 325 MG TABLET PO PRN (11:00)
[2018-08-16] MEDS ORDERED: morphine INJ 10 MG/ML 1ML (SYR OR VIAL) IV PRN (11:00)
[2018-08-16 11:30] VITALS: BP 144/84
[2018-08-16 12:00] VITALS: BP 143/89
[2018-08-16 12:35] VITALS: BP 148/86
[2018-08-16 12:45] VITALS: BP 148/86
--- NOTE | 2018-08-16 15:14 | OPERATIVE REPORT ---
DATE OF SERVICE: 08/16/2018 PREOPERATIVE DIAGNOSIS: Esophageal stricture and gastroesophageal reflux disease and recurrent esophageal foreign body. POSTOPERATIVE DIAGNOSES: Reflux esophagitis grade III, distal esophageal stricture, no hiatal hernia, moderate gastritis. Pylorus and duodenum appeared normal and no distal obstructions. Esophageal foreign body. PROCEDURES: EGD with biopsy and removal of esophageal foreign body and balloon dilation. SURGEON: Rik Brady MD. ANESTHESIA: Conscious sedation. ESTIMATED BLOOD LOSS: Minimal. FINDINGS: As above. INDICATIONS: The patient is a 63-year-old male with a longstanding history of gastroesophageal reflux disease, stricture and esophageal foreign bodies as well as noncompliance. He is currently a smoker and also has had issues with drug abuse in the past. He also has had issues with gastroesophageal reflux disease and known food impaction and esophageal foreign bodies requiring 3 to 4 different esophageal foreign body removals in the past. He is noncompliant and was placed on Protonix and Carafate; however, does not take those medications. He states that he was eating a steak and then he felt a substernal pressure sensation and then was unable to swallow his saliva. DESCRIPTION OF PROCEDURE: The patient was brought to the endoscopy suite and laid in the left lateral decubitus position with the head slightly elevated. After adequate IV pain and sedating medications and conscious sedation anesthesia, the mouthpiece was applied. The endoscope was then placed in the mouth visualizing the pharynx and hypopharyngeal region. Vocal cords, epiglottis and vallecula were identified and appeared to be normal. Endoscope was then gently intubated in the esophageal opening and esophagus was insufflated. The endoscope was then advanced to the first, second and third portion of the esophagus. At the distal esophagus, an esophageal foreign body was identified consistent with a steak. A stricture was also apparent. The steak from the saliva was from the amylase and lipase and the saliva appeared very soft and with gentle pressure, the esophageal foreign body was able to be dislodged distally with minimal pressure. Again, the stricture was identified as well as a reflux esophagitis grade III. A biopsy was taken of the GE junction using forceps with visualization of good hemostasis. The endoscope was then advanced into the stomach and endoscope retroflexed visualizing no significant hiatal hernia. There was moderate severity gastritis. No formal ulcerations, polyps or any neoplasms. A biopsy was taken of the antrum with forceps with visualization of good hemostasis. The endoscope was then advanced to the pylorus and the first and second portion of the duodenum, which appeared normal with no distal obstructions. We then proceeded with the dilatation of the esophageal stricture. A balloon dilator was placed into the stomach under direct visualization and pulled back to the area of the stricture next to the GE junction. The balloon was dilated at first to 2 atmospheres of pressure or 18 mm in diameter with minimal resistance. We then proceeded to 4 atmospheres of pressure with mild to moderate resistance. We then proceeded to 5 atmospheres of pressure or approximately 19.5 mm in circumferential diameter with moderate resistance and left this in place for approximately 60 seconds. The balloon was then desufflated and removed. There were no mucosal tears identified as well as no bleeding. The endoscope was then slowly withdrawn while taking a second look and suctioning of residual air with no additional findings. The patient tolerated the procedure well. We will recommend a proper medical compliance with smoking cessation as well as avoidance of caffeinated beverages, spicy, greasy and acidic foods as well as small and more frequent meals and avoid eating at night. He also needs to take his prescribed medications including the Protonix 40 mg daily as well as Carafate 1 gram q.i.d. for the next 2 weeks, then on a p.r.n. basis. Due to this history, he may benefit from a gradual graded esophageal dilatation procedures if he chooses to be compliant. Job ID: [id number] DocumentID: [id number] Dictated Date: 08/16/2018 10:48:04 Etcher Hand Date: 08/16/2018 15:13:36 Dictated By: RIK BRADY MD [facility]
== END 2018-08-16 12:45 | disposition home or self-care (01) ==
LOC: EDUNIT# 05:45 → ER 05:46 → SDC 09:27
PROVIDERS: ATTEND Surgery
DX: T18.198A Other foreign object in esophagus causing other injury, initial encounter (principal); K22.2 Esophageal obstruction; K21.0 Gastro-esophageal reflux disease with esophagitis; K29.70 Gastritis, unspecified, without bleeding; Z91.19 Patient's noncompliance with other medical treatment and regimen; I10 Essential (primary) hypertension; J44.9 Chronic obstructive pulmonary disease, unspecified; F41.9 Anxiety disorder, unspecified; F32.9 Major depressive disorder, single episode, unspecified; I25.10 Atherosclerotic heart disease of native coronary artery without angina pectoris; E78.00 Pure hypercholesterolemia, unspecified; Z79.899 Other long term (current) drug therapy; Z80.3 Family history of malignant neoplasm of breast; Z80.0 Family history of malignant neoplasm of digestive organs; Z80.42 Family history of malignant neoplasm of prostate; Z85.828 Personal history of other malignant neoplasm of skin

== ENCOUNTER 2018-10-03 16:25 | Emergency (ER) | payer MEDICARE ==
[~2018-10-03] VITALS: Ht 167.6 cm; Wt 61.2 kg
--- OUTSIDE RECORDS SUMMARY | 2018-10-03 16:30 | XMS REPORT | Clinical Summary ---
Author Author [facility] Organization [facility] Address Unknown Phone Unavailable Care Team Providers Care Communication Assistant Name Role Phone Unverified, Unverified Md PCP Unavailable Source Comments Some departments are not documenting in the electronic medical record. If you do not see the information that you expected, contact Release of Information in the Health Information Management department at [phone] for further assistance in locating additional records.[facility] Allergies Not on File Medications Not [...]
--- OUTSIDE RECORDS SUMMARY | 2018-10-03 16:38 | XMS REPORT | Continuity of Care Document ---
Author Author [facility] Address Unknown Phone Unavailable Allergies Active Description Code Type Severity Reaction Onset Reported/Identified Relationship to Patient Clinical Status Yes NKANo Known Allergies NKA Miscellaneous Allergy Unknown N/A 08/03/2006 Yes No Known Drug Allergies [id number] Drug Allergy Mild N/A 12/24/2008 Yes amphetamine Drug Allergy N/A N/A 11/10/2013 Yes Benzodiazepines Drug Allergy N/A N/A 11/10/2013 Yes hydrocodone Drug Allergy N/A N/A 11/10/2013 Yes ibuprofen [id number] Drug Allergy Unknown N/A 04/05/2015 Medications There [...] CAUSE STATUS 08/12/2010 Ot E812.0 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-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 SPECIALIST 08/12/2010 Ot V45.4 ARTHRODESIS STATUS 08/18/2010 Ot 723.1 CERVICALGIA 08/18/2010 Ot 959.09 INJURY OF FACE AND NECK 08/18/2010 Ot E000.8 OTHER EXTERNAL CAUSE STATUS 08/18/2010 Ot E812.0 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-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 SPECIALIST 08/20/2010 Ot 723.1 CERVICALGIA 08/20/2010 Ot 959.09 INJURY OF FACE AND NECK 08/20/2010 Ot E000.8 OTHER EXTERNAL CAUSE STATUS 08/20/2010 Ot E812.0 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-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 SPECIALIST 02/18/2011 Ot 924.11 CONTUSION OF KNEE 02/18/2011 [...] Garcia Ot 935.1 FOREIGN BODY ESOPHAGUS 01/18/2013 ANRDES GRANDA MD Ot E000.8 OTHER EXTERNAL CAUSE [...] NOS-PEDEST 10/06/2013 OLIVIA CARDOSO DO Ot V06.1 ECOSHGYPBB-ZUTDFZE-MXHUGYYWS, COMBINED [ 10/06/2013 OLIVIA CARDOSO DO Ot [...] OTHER ACUTE POSTOPERATIVE PAIN 06/03/2014 ALBA ROSA CALENDER SUPERVISOR Ot 338.18 OTHER ACUTE POSTOPERATIVE PAIN 06/03/2014 ALBA ROSA CALENDER SUPERVISOR Ot 724.2 LUMBAGO 07/01/2014 KRISTINA MONCADA MD [...] Ot E816.0 LOSS CONTROL MV ACC-DRIV 05/03/2015 DEIGO NEWBERRY MD Ot V45.4 ARTHRODESIS STATUS 05/08/2015 [...] GOFF MD Ot 737.30 08/20/2015 ALBA ROSA CALENDER SUPERVISOR Ot F17.210 NICOTINE DEPENDENCE, CIGARETTES, UNCOMPL 08/20/2015 ALBA ROSA CALENDER SUPERVISOR Ot G89.29 OTHER CHRONIC PAIN 08/20/2015 ALBA ROSA CALENDER SUPERVISOR Ot M25.512 PAIN IN LEFT SHOULDER 10/08/2015 [...] M54.5 LOW BACK PAIN 03/02/2016 ALBA ROSA CALENDER SUPERVISOR Ot F17.210 NICOTINE DEPENDENCE, CIGARETTES, UNCOMPL 03/02/2016 ALBA ROSA CALENDER SUPERVISOR Ot G89.29 OTHER CHRONIC PAIN 03/02/2016 ALBA ROSA CALENDER SUPERVISOR Ot M54.5 LOW BACK PAIN 03/04/2016 ALBA ROSA CALENDER SUPERVISOR Ot F17.210 NICOTINE DEPENDENCE, CIGARETTES, UNCOMPL 03/04/2016 ALBA ROSA CALENDER SUPERVISOR Ot G89.29 OTHER CHRONIC PAIN 03/04/2016 ALBA ROSA CALENDER SUPERVISOR Ot M54.5 LOW BACK PAIN 04/09/2016 [...] 08/10/2016 ALBA ROSA APRN Ot 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 08/12/2016 ALBA ROSA APRN Ot G89.29 OTHER CHRONIC PAIN 08/12/2016 ALBA ROSA APRN Ot R42 DIZZINESS AND GIDDINESS 08/12/2016 ALBA ROSA APRN Ot 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 08/27/2016 CARYN HUERTA MD [...] PLACE IN HOSPITAL PLACE 04/16/2017 FRAN MORFIN SALES ORDER ADMINISTRATOR Ot F17.210 NICOTINE DEPENDENCE, CIGARETTES, UNCOMPL 04/16/2017 SHELBIE, FRAN SALES ORDER ADMINISTRATOR Ot F41.9 ANXIETY DISORDER, UNSPECIFIED 04/16/2017 SHELBIE, FRAN SALES ORDER ADMINISTRATOR Ot G25.81 RESTLESS LEGS SYNDROME 04/16/2017 SHELBIE, FRAN SALES ORDER ADMINISTRATOR Ot J44.9 CHRONIC OBSTRUCTIVE PULMONARY DISEASE, U 04/16/2017 SHELBIE, FRAN SALES ORDER ADMINISTRATOR Ot K21.9 GASTRO-ESOPHAGEAL REFLUX DISEASE WITHOUT 04/16/2017 SHELBIE, FRAN SALES ORDER ADMINISTRATOR Ot M54.5 LOW BACK PAIN 04/16/2017 SHELBIE, FRAN SALES ORDER ADMINISTRATOR Ot S39.012A STRAIN OF MUSCLE, FASCIA AND TENDON OF L 04/16/2017 SHELBIE, FRAN SALES ORDER ADMINISTRATOR Ot W17.2XXA FALL INTO HOLE, INITIAL ENCOUNTER 04/16/2017 SHELBIE FRAN SALES ORDER ADMINISTRATOR Ot Z80.0 FAMILY HISTORY OF MALIGNANT NEOPLASM OF 04/16/2017 SHELBIE, FRAN SALES ORDER ADMINISTRATOR Ot Z80.42 FAMILY HISTORY OF MALIGNANT NEOPLASM OF 04/16/2017 SHELBIE FRAN SALES ORDER ADMINISTRATOR Ot Z90.49 ACQUIRED ABSENCE OF OTHER SPECIFIED PART 04/16/2017 SHELBIE FRAN SALES ORDER ADMINISTRATOR Ot Z91.5 PERSONAL HISTORY OF SELF-HARM 04/20/2017 SHELBIE, FRAN SALES ORDER ADMINISTRATOR Ot F17.210 NICOTINE DEPENDENCE, CIGARETTES, UNCOMPL 04/20/2017 SHELBIE, FRAN SALES ORDER ADMINISTRATOR Ot F41.9 ANXIETY DISORDER, UNSPECIFIED 04/20/2017 SHELBIE, FRAN SALES ORDER ADMINISTRATOR Ot G25.81 RESTLESS LEGS SYNDROME 04/20/2017 SHELBIE, FRAN SALES ORDER ADMINISTRATOR Ot J44.9 CHRONIC OBSTRUCTIVE PULMONARY DISEASE, U 04/20/2017 SHELBIE, FRAN SALES ORDER ADMINISTRATOR Ot K21.9 GASTRO-ESOPHAGEAL REFLUX DISEASE WITHOUT 04/20/2017 SHELBIE, FRAN SALES ORDER ADMINISTRATOR Ot M54.5 LOW BACK PAIN 04/20/2017 SHELBIE, FRAN SALES ORDER ADMINISTRATOR Ot S39.012A STRAIN OF MUSCLE, FASCIA AND TENDON OF L 04/20/2017 SHELBIE, FRAN SALES ORDER ADMINISTRATOR Ot W17.2XXA FALL INTO HOLE, INITIAL ENCOUNTER 04/20/2017 FRAN MORFIN SALES ORDER ADMINISTRATOR Ot Z80.0 FAMILY HISTORY OF MALIGNANT NEOPLASM OF 04/20/2017 FRAN MORFIN SALES ORDER ADMINISTRATOR Ot Z80.42 FAMILY HISTORY OF MALIGNANT NEOPLASM OF 04/20/2017 FRAN MORFIN SALES ORDER ADMINISTRATOR Ot Z90.49 ACQUIRED ABSENCE OF OTHER SPECIFIED PART 04/20/2017 FRAN MORFIN SALES ORDER ADMINISTRATOR Ot Z91.5 PERSONAL HISTORY OF SELF-HARM 04/21/2017 SHELBIE FRAN SALES ORDER ADMINISTRATOR Ot F17.210 NICOTINE DEPENDENCE, CIGARETTES, UNCOMPL 04/21/2017 SHELBIE FRAN SALES ORDER ADMINISTRATOR Ot F41.9 ANXIETY DISORDER, UNSPECIFIED 04/21/2017 SHELBIE, FRAN SALES ORDER ADMINISTRATOR Ot G25.81 RESTLESS LEGS SYNDROME 04/21/2017 SHELBIE FRAN SALES ORDER ADMINISTRATOR Ot J44.9 CHRONIC OBSTRUCTIVE PULMONARY DISEASE, U 04/21/2017 FRAN MORFIN SALES ORDER ADMINISTRATOR Ot K21.9 GASTRO-ESOPHAGEAL REFLUX DISEASE WITHOUT 04/21/2017 FRAN MORFIN SALES ORDER ADMINISTRATOR Ot M54.5 LOW BACK PAIN 04/21/2017 SHELBIE FRAN SALES ORDER ADMINISTRATOR Ot S39.012A STRAIN OF MUSCLE, FASCIA AND TENDON OF L 04/21/2017 FRAN MORFIN SALES ORDER ADMINISTRATOR Ot W17.2XXA FALL INTO HOLE, INITIAL ENCOUNTER 04/21/2017 FRAN MORFINP Ot Z80.0 FAMILY HISTORY OF MALIGNANT NEOPLASM OF 04/21/2017 FRAN MORFIN SALES ORDER ADMINISTRATOR Ot Z80.42 FAMILY HISTORY OF MALIGNANT NEOPLASM OF 04/21/2017 FRAN MORFIN SALES ORDER ADMINISTRATOR Ot Z90.49 ACQUIRED ABSENCE OF OTHER SPECIFIED PART 04/21/2017 FRAN MORFIN SALES ORDER ADMINISTRATOR Ot Z91.5 PERSONAL HISTORY OF SELF-HARM 05/06/2017 [...] MD Ot I25.10 ATHSCL HEART DISEASE OF [place] CORONARY 06/29/2017 KEIRY GUIDO MD Ot M48.061 [...] 06/29/2017 KEIRY GUIDO MD Ot 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 06/30/2017 ARIADNA DYER MD, [...] UNSPECIFIED 07/12/2017 ROXANE COHEN MD Ot Z79.82 GROUP HOME (CURRENT) USE OF ASPIRIN 07/12/2017 ROXANE COHEN [...] MD Ot I25.10 ATHSCL HEART DISEASE OF [place] CORONARY 07/24/2017 KEIRY GUIDO MD Ot M48.061 [...] 07/24/2017 KEIRY GUIDO MD Ot Z79.899 OTHER GROUP HOME (CURRENT) DRUG THERAPY 07/25/2017 TIMI MATTSON DO [...] DO Ot I25.10 ATHSCL HEART DISEASE OF [place] CORONARY 07/25/2017 TIMI MATTSON DO Ot J43.9 EMPHYSEMA, UNSPECIFIED 07/25/2017 TIMI MATTSON DO Ot K21.9 GASTRO-ESOPHAGEAL REFLUX DISEASE WITHOUT 07/25/2017 SRINIVASANTIMI Walsh DO Ot R07.89 OTHER CHEST PAIN 07/25/2017 TIMI MATTSON DO Ot R07.9 CHEST PAIN, UNSPECIFIED 07/25/2017 TIMI MATTSON DO Ot Z79.82 LEADERSHIP DEVELOPMENT INSTRUCTOR (CURRENT) USE OF ASPIRIN 07/25/2017 TIMI MATTSON DO Ot Z80.42 FAMILY HISTORY OF MALIGNANT NEOPLASM OF 07/25/2017 TMII MATTSON DO Ot Z90.49 ACQUIRED ABSENCE OF [...] MD Ot I25.10 ATHSCL HEART DISEASE OF [place] CORONARY 08/02/2017 JOY LANDRUM MD Ot K21.9 GASTRO-ESOPHAGEAL REFLUX DISEASE WITHOUT 08/02/2017 LUCITAJOY WELSH MD, Ot R07.9 CHEST PAIN, UNSPECIFIED 08/02/2017 JOY LANDRUM MD, Ot Z79.82 LEADERSHIP DEVELOPMENT INSTRUCTOR (CURRENT) USE OF ASPIRIN 08/02/2017 JOY LANDRUM MD, Ot Z79.899 OTHER GROUP HOME (CURRENT) DRUG THERAPY 08/02/2017 JOY LANDRUM MD [...] MD, Ot I25.10 ATHSCL HEART DISEASE OF [place] CORONARY 08/02/2017 JOY LANDRUM MD Ot K21.9 GASTRO-ESOPHAGEAL REFLUX DISEASE WITHOUT 08/02/2017 JOY LANDRUM MD, Ot R07.9 CHEST PAIN, UNSPECIFIED 08/02/2017 JOY LANDRUM MD, Ot Z79.82 GROUP HOME (CURRENT) USE OF ASPIRIN 08/02/2017 JOY LANDRUM MD, Ot Z79.899 OTHER GROUP HOME (CURRENT) DRUG THERAPY 08/03/2017 SRINIVASAN TOPETE TIMI [...] K Ot I25.10 ATHSCL HEART DISEASE OF [place] CORONARY 08/03/2017 SRINIVASAN TOPETE TIMI K Ot J43.9 EMPHYSEMA, UNSPECIFIED 08/03/2017 SRINIVASAN DELTA TOPETEA K Ot K21.9 GASTRO-ESOPHAGEAL REFLUX DISEASE WITHOUT 08/03/2017 SRINIVASAN TIMI K Ot R07.89 OTHER CHEST PAIN 08/03/2017 SRINIVASAN DELTA TPOETEA K Ot R07.9 CHEST PAIN, UNSPECIFIED 08/03/2017 SRINIVASAN DELTA TOPETEA K Ot Z79.82 GROUP HOME (CURRENT) USE OF ASPIRIN 08/03/2017 SRINIVASAN TIMI [...] K Ot I25.10 ATHSCL HEART DISEASE OF [place] CORONARY 08/04/2017 SRINIVASAN TOPETE TIMI Yash Ot J43.9 EMPHYSEMA, UNSPECIFIED 08/04/2017 SRINIVASAN TIMI K Ot K21.9 GASTRO-ESOPHAGEAL REFLUX DISEASE WITHOUT 08/04/2017 SRINIVASAN TIMI K Ot R07.89 OTHER CHEST PAIN 08/04/2017 SRINIVASAN TIMI K Ot R07.9 CHEST PAIN, UNSPECIFIED 08/04/2017 SRINIVASAN TIMI K Ot Z79.82 LEADERSHIP DEVELOPMENT INSTRUCTOR (CURRENT) USE OF ASPIRIN 08/04/2017 SRINIVASAN TIMI [...] MD, Ot I25.10 ATHSCL HEART DISEASE OF [place] CORONARY 08/05/2017 JOY LANDRUM MD Ot K21.9 GASTRO-ESOPHAGEAL REFLUX DISEASE WITHOUT 08/05/2017 JOY LANDRUM MD Ot R07.9 CHEST PAIN, UNSPECIFIED 08/05/2017 JOY LANDRUM MD, Ot Z79.82 GROUP HOME (CURRENT) USE OF ASPIRIN 08/05/2017 JOY LANDRUM MD, Ot Z79.899 OTHER GROUP HOME (CURRENT) DRUG THERAPY 08/07/2017 SHELBIE FRAN SALES ORDER ADMINISTRATOR Ot E78.00 PURE HYPERCHOLESTEROLEMIA, UNSPECIFIED 08/07/2017 SHELBIE, FRAN SALES ORDER ADMINISTRATOR Ot F32.9 MAJOR DEPRESSIVE DISORDER, SINGLE EPISOD 08/07/2017 SHELBIE, FRAN SALES ORDER ADMINISTRATOR Ot F41.9 ANXIETY DISORDER, UNSPECIFIED 08/07/2017 SHELBIE FRAN SALES ORDER ADMINISTRATOR Ot I10 ESSENTIAL (PRIMARY) HYPERTENSION 08/07/2017 SHELBIE FRAN SALES ORDER ADMINISTRATOR Ot I25.10 ATHSCL HEART DISEASE OF [place] CORONARY 08/07/2017 SHELBIE, FRAN SALES ORDER ADMINISTRATOR Ot J43.9 EMPHYSEMA, UNSPECIFIED 08/07/2017 SHELBIE, FRAN SALES ORDER ADMINISTRATOR Ot K21.9 GASTRO-ESOPHAGEAL REFLUX DISEASE WITHOUT 08/07/2017 SHELBIE, FRAN SALES ORDER ADMINISTRATOR Ot M54.16 RADICULOPATHY, LUMBAR REGION 08/07/2017 SHELBIE, FRAN SALES ORDER ADMINISTRATOR Ot M54.5 LOW BACK PAIN 08/07/2017 SHELBIE FRAN SALES ORDER ADMINISTRATOR Ot Z79.82 GROUP HOME (CURRENT) USE OF ASPIRIN 08/07/2017 SHELBIE FRAN SALES ORDER ADMINISTRATOR Ot Z80.0 FAMILY HISTORY OF MALIGNANT NEOPLASM OF 08/07/2017 FRAN MORFIN SALES ORDER ADMINISTRATOR Ot Z80.3 FAMILY HISTORY OF MALIGNANT NEOPLASM OF 08/07/2017 SHELBIE FRAN SALES ORDER ADMINISTRATOR Ot Z80.59 FAMILY HISTORY OF MALIGNANT NEOPLASM OF 08/07/2017 SHELBIE FRAN SALES ORDER ADMINISTRATOR Ot Z87.891 PERSONAL HISTORY OF NICOTINE DEPENDENCE 08/07/2017 SHELBIE FRNA SALES ORDER ADMINISTRATOR Ot Z90.79 ACQUIRED ABSENCE OF OTHER GENITAL ORGAN( 08/11/2017 SHELBIE, FRAN SALES ORDER ADMINISTRATOR Ot E78.00 PURE HYPERCHOLESTEROLEMIA, UNSPECIFIED 08/11/2017 SHELBIE, FRAN SALES ORDER ADMINISTRATOR Ot F32.9 MAJOR DEPRESSIVE DISORDER, SINGLE EPISOD 08/11/2017 SHELBIE, FRAN SALES ORDER ADMINISTRATOR Ot F41.9 ANXIETY DISORDER, UNSPECIFIED 08/11/2017 SHELBIE FRAN SALES ORDER ADMINISTRATOR Ot I10 ESSENTIAL (PRIMARY) HYPERTENSION 08/11/2017 SHELBIE FRAN SALES ORDER ADMINISTRATOR Ot I25.10 ATHSCL HEART DISEASE OF [place] CORONARY 08/11/2017 SHELBIE FRAN SALES ORDER ADMINISTRATOR Ot J43.9 EMPHYSEMA, UNSPECIFIED 08/11/2017 SHELBIE FRAN SALES ORDER ADMINISTRATOR Ot K21.9 GASTRO-ESOPHAGEAL REFLUX DISEASE WITHOUT 08/11/2017 SHELBIE FRAN SALES ORDER ADMINISTRATOR Ot M54.16 RADICULOPATHY, LUMBAR REGION 08/11/2017 SHELBIE FRAN SALES ORDER ADMINISTRATOR Ot M54.5 LOW BACK PAIN 08/11/2017 SHELBIE FRAN SALES ORDER ADMINISTRATOR Ot Z79.82 GROUP HOME (CURRENT) USE OF ASPIRIN 08/11/2017 SHELBIE FRAN SALES ORDER ADMINISTRATOR Ot Z80.0 FAMILY HISTORY OF MALIGNANT NEOPLASM OF 08/11/2017 FRAN MORFIN SALES ORDER ADMINISTRATOR Ot Z80.3 FAMILY HISTORY OF MALIGNANT NEOPLASM OF 08/11/2017 FRAN MORFIN SALES ORDER ADMINISTRATOR Ot Z80.59 FAMILY HISTORY OF MALIGNANT NEOPLASM OF 08/11/2017 FRAN MORFIN SALES ORDER ADMINISTRATOR Ot Z87.891 PERSONAL HISTORY OF NICOTINE DEPENDENCE 08/11/2017 FRAN MORFIN SALES ORDER ADMINISTRATOR Ot Z90.79 ACQUIRED ABSENCE OF OTHER GENITAL [...] MD Ot I25.10 ATHSCL HEART DISEASE OF [place] CORONARY 08/29/2017 ROXANE COHEN MD Ot J43.9 [...] SMO 08/29/2017 ROXANE COHEN MD Ot Z79.82 LEADERSHIP DEVELOPMENT INSTRUCTOR (CURRENT) USE OF ASPIRIN 08/29/2017 ROXANE COHEN [...] F17.210 NICOTINE DEPENDENCE, CIGARETTES, UNCOMPL 09/02/2017 TIMI MATSTON DO Ot F32.9 MAJOR DEPRESSIVE DISORDER, SINGLE EPISOD 09/02/2017 TIMI MATTSON DO Ot F41.9 ANXIETY DISORDER, UNSPECIFIED 09/02/2017 SRINIVASAN DO, TIMI K Ot G25.81 RESTLESS LEGS SYNDROME 09/02/2017 SRINIVASAN DO, TIMI K Ot I10 ESSENTIAL (PRIMARY) HYPERTENSION 09/02/2017 SRINIVASAN DO TIMI K Ot I25.10 ATHSCL HEART DISEASE OF [place] CORONARY 09/02/2017 SRINIVASAN DO TIMI K Ot J43.9 EMPHYSEMA, UNSPECIFIED 09/02/2017 SRINIVASAN DO TIMI K Ot K21.9 GASTRO-ESOPHAGEAL REFLUX DISEASE WITHOUT 09/02/2017 SRINIVASAN DO TIMI K Ot R05 COUGH 09/02/2017 SRINIVASAN DO, TIMI K Ot R07.89 OTHER CHEST PAIN 09/02/2017 SRINIVASAN DO, TIMI K Ot R55 SYNCOPE AND COLLAPSE 09/02/2017 SRINIVASAN DO TIMI K Ot Z79.82 LEADERSHIP DEVELOPMENT INSTRUCTOR (CURRENT) USE OF ASPIRIN 09/02/2017 SRINIVASAN TIMI [...] K Ot I25.10 ATHSCL HEART DISEASE OF [place] CORONARY 09/04/2017 SRINIVASAN TIMI Berrios Ot J43.9 EMPHYSEMA, UNSPECIFIED 09/04/2017 SRINIVASAN DO TIMI K Ot K21.9 GASTRO-ESOPHAGEAL REFLUX DISEASE WITHOUT 09/04/2017 SRINIVASAN DO TIMI K Ot R05 COUGH 09/04/2017 SRINIVASAN DODELTAA K Ot R07.89 OTHER CHEST PAIN 09/04/2017 SRINIVASAN DO TIMI K Ot R55 SYNCOPE AND COLLAPSE 09/04/2017 SRINIVASAN TIMI K Ot Z79.82 GROUP HOME (CURRENT) USE OF ASPIRIN 09/04/2017 SRINIVASAN TIMI [...] K Ot I25.10 ATHSCL HEART DISEASE OF [place] CORONARY 09/08/2017 SRINIVASAN TOPETE TIMI Berrios Ot J43.9 EMPHYSEMA, UNSPECIFIED 09/08/2017 SRINIVASAN TOPETE TIMI K Ot K21.9 GASTRO-ESOPHAGEAL REFLUX DISEASE WITHOUT 09/08/2017 SRINIVASAN TOPETE TIMI K Ot R05 COUGH 09/08/2017 SRINIVASAN TIMI K Ot R07.89 OTHER CHEST PAIN 09/08/2017 SRINIVASAN TIMI Yash Ot R55 SYNCOPE AND COLLAPSE 09/08/2017 SRINIVASAN TIMI Yash Ot Z79.82 GROUP HOME (CURRENT) USE OF ASPIRIN 09/08/2017 SRINIVASAN TIMI [...] MD Ot I25.10 ATHSCL HEART DISEASE OF [place] CORONARY 11/30/2017 KRISTINA MONCADA MD Ot J43.9 EMPHYSEMA, UNSPECIFIED 11/30/2017 KRISTINA MONCADA MD, Ot K21.9 GASTRO-ESOPHAGEAL REFLUX DISEASE WITHOUT 11/30/2017 KRISTINA MONCADA MD Ot M47.9 SPONDYLOSIS, UNSPECIFIED 11/30/2017 KRISTINA MONCADA MD, Ot M54.5 LOW BACK PAIN 11/30/2017 KRISTINA MONCADA MD, Ot Z79.82 LEADERSHIP DEVELOPMENT INSTRUCTOR (CURRENT) USE OF ASPIRIN 11/30/2017 KRISTINA MONCADA MD Ot Z85.828 PERSONAL HISTORY OF OTHER MALIGNANT NEOP 11/30/2017 KRISTINA MONCADA MD, Ot Z86.79 PERSONAL HISTORY OF OTHER DISEASES OF TH 11/30/2017 KRISTINA MONCADA MD, Ot Z87.19 PERSONAL HISTORY OF OTHER DISEASES OF TH 11/30/2017 KRISTINA MONCADA MD, Ot Z88.6 ALLERGY STATUS TO ANALGESIC AGENT STATUS 11/30/2017 KRISTINA OMNCADA MD, Ot Z90.49 ACQUIRED ABSENCE OF OTHER [...] MD Ot I25.10 ATHSCL HEART DISEASE OF [place] CORONARY 12/02/2017 KRISTINA MONCADA MD, Ot J43.9 EMPHYSEMA, UNSPECIFIED 12/02/2017 KRISTINA MONCADA MD, Ot K21.9 GASTRO-ESOPHAGEAL REFLUX DISEASE WITHOUT 12/02/2017 KRISTINA MONCADA MD, Ot M47.9 SPONDYLOSIS, UNSPECIFIED 12/02/2017 KRISTINA MONCADA MD, Ot M54.5 LOW BACK PAIN 12/02/2017 KRISTINA MONCADA MD Ot Z79.82 LEADERSHIP DEVELOPMENT INSTRUCTOR (CURRENT) USE OF ASPIRIN 12/02/2017 KRISTINA MONCADA [...] ARNOLD Ramires Ot 737.30 IDIOPATHIC SCOLIOSIS 02/27/2018 KIERSETN NAYAK, KACEY Ramires Ot M48.07 SPINAL STENOSIS, [...] 726.13 PARTIAL TEAR OF ROTATOR CUFF [facility]2018 [facility] E78.00 PURE HYPERCHOLESTEROLEMIA, UNSPECIFIED 05/25/2018 [facility] FLORECITA D Ot F17.210 NICOTINE DEPENDENCE, CIGARETTES, UNCOMPL 05/25/2018 MORALES DO FLORECITA D Ot G25.81 RESTLESS LEGS SYNDROME 05/25/2018 MORALES DO FLORECITA D Ot I10 ESSENTIAL (PRIMARY) HYPERTENSION 05/25/2018 [facility] FLORECITA D Ot I25.10 ATHSCL HEART DISEASE OF [place] CORONARY 05/25/2018 [facility] FLORECITA D Ot J43.9 EMPHYSEMA, UNSPECIFIED 05/25/2018 [facility] FLORECITA D Ot K21.9 GASTRO-ESOPHAGEAL REFLUX DISEASE WITHOUT 05/25/2018 [facility] FLORECITA D Ot T18.108A UNSP FOREIGN BODY IN ESOPHAGUS CAUSING O 05/25/2018 ROXANE COHEN MD Ot E78.00 PURE HYPERCHOLESTEROLEMIA, UNSPECIFIED 05/25/2018 ROXANE COHEN MD Ot F15.10 OTHER STIMULANT ABUSE, UNCOMPLICATED 05/25/2018 ROXANE COHEN MD Ot F17.210 NICOTINE DEPENDENCE, CIGARETTES, UNCOMPL 05/25/2018 ROXANE COHEN MD Ot F32.9 MAJOR DEPRESSIVE DISORDER, SINGLE EPISOD 05/25/2018 ROXANE COHEN MD Ot F41.9 ANXIETY DISORDER, UNSPECIFIED 05/25/2018 ROXANE COHEN MD Ot G25.81 RESTLESS LEGS SYNDROME 05/25/2018 ROXANE COHEN MD Ot I10 ESSENTIAL (PRIMARY) HYPERTENSION 05/25/2018 ROXANE COHEN MD Ot I25.10 ATHSCL HEART DISEASE OF [place] CORONARY 05/25/2018 ROXAEN COHEN MD Ot J43.9 EMPHYSEMA, UNSPECIFIED 05/25/2018 ROXANE COHEN MD Ot K21.9 GASTRO-ESOPHAGEAL REFLUX DISEASE WITHOUT 05/25/2018 ROXANE COHEN MD Ot T18.120A FOOD IN ESOPHAGUS CAUSING COMPRESSION OF 05/25/2018 ROXANE COHEN MD Ot Z80.0 FAMILY HISTORY OF MALIGNANT NEOPLASM OF 05/25/2018 ROXANE COHEN MD Ot Z80.3 FAMILY HISTORY OF MALIGNANT NEOPLASM OF 05/25/2018 ROXANE COHEN MD Ot Z80.8 FAMILY HISTORY OF MALIGNANT NEOPLASM OF 05/25/2018 ROXANE COHEN MD Ot Z85.828 PERSONAL HISTORY OF OTHER MALIGNANT NEOP 05/25/2018 ROXANE COHEN MD Ot Z88.6 ALLERGY STATUS TO ANALGESIC AGENT STATUS 05/25/2018 ROXANE COHEN MD Ot Z90.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 05/25/2018 ROXANE COHEN MD Ot Z91.5 PERSONAL HISTORY OF SELF-HARM 05/27/2018 ROXANE COHEN MD Ot E78.00 PURE [...] MD Ot I25.10 ATHSCL HEART DISEASE OF [place] CORONARY 05/27/2018 ROXANE COHEN MD Ot J43.9 [...] Z90.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 05/27/2018 VICKI NAYAK ROXANE Ramires Ot Z91.5 PERSONAL HISTORY OF SELF-HARM 05/28/2018 MORALES DO, FLORECITA D Ot E78.00 PURE HYPERCHOLESTEROLEMIA, UNSPECIFIED 05/28/2018 MORALES DO, FLORECITA D Ot F17.210 NICOTINE DEPENDENCE, CIGARETTES, UNCOMPL 05/28/2018 MORALES DO, FLORECITA D Ot G25.81 RESTLESS LEGS SYNDROME 05/28/2018 MORALES DO, FLORECITA D Ot I10 ESSENTIAL (PRIMARY) HYPERTENSION 05/28/2018 MORALES DO, FLORECITA D Ot I25.10 ATHSCL HEART DISEASE OF [place] CORONARY 05/28/2018 MORALES DO, FLORECITA D Ot [...] D Ot I25.10 ATHSCL HEART DISEASE OF [place] CORONARY 06/15/2018 MORALES DO, FLORECITA D Ot J43.9 EMPHYSEMA, UNSPECIFIED 06/15/2018 MORALES DO, FLORECITA D Ot K21.9 GASTRO-ESOPHAGEAL REFLUX DISEASE WITHOUT 06/15/2018 MORALES DO, FLORECITA D Ot T18.108A UNSP FOREIGN BODY IN ESOPHAGUS CAUSING O 07/30/2018 VICKI NAYAK, ROXANE Ramires Ot E78.00 PURE HYPERCHOLESTEROLEMIA, UNSPECIFIED 07/30/2018 VICKI NAYAK, ROXANE Ramires Ot F15.10 OTHER STIMULANT ABUSE, UNCOMPLICATED 07/30/2018 VICKI NAYAK, ROXANE Ramires Ot F17.210 NICOTINE DEPENDENCE, CIGARETTES, UNCOMPL 07/30/2018 VICKI NAYAK, ROXANE Ramires Ot F32.9 MAJOR DEPRESSIVE DISORDER, SINGLE EPISOD 07/30/2018 VICKI NAYAK, ROXANE Ramires Ot F41.9 ANXIETY DISORDER, UNSPECIFIED 07/30/2018 ROXANE COHEN MD Ot G25.81 RESTLESS LEGS SYNDROME 07/30/2018 ROXANE COHEN MD Ot I10 ESSENTIAL (PRIMARY) HYPERTENSION 07/30/2018 ROXANE COHEN MD Ot I25.10 ATHSCL HEART DISEASE OF [place] CORONARY 07/30/2018 ROXANE COHEN MD Ot J43.9 [...] MD Ot Z91.5 PERSONAL HISTORY OF SELF-HARM 08/15/2018 ALBA ROSA APRN Ot E78.00 PURE HYPERCHOLESTEROLEMIA, UNSPECIFIED 08/15/2018 ALBA ROSA APRN Ot F32.9 MAJOR DEPRESSIVE DISORDER, SINGLE EPISOD 08/15/2018 ALBA ROSA APRN Ot F41.9 ANXIETY DISORDER, UNSPECIFIED 08/15/2018 ALBA ROSA APRN Ot G25.81 RESTLESS LEGS SYNDROME 08/15/2018 ALBA ROSA APRN Ot I10 ESSENTIAL (PRIMARY) HYPERTENSION 08/15/2018 ALBA ROSA APRN Ot I25.10 ATHSCL HEART DISEASE OF [place] CORONARY 08/15/2018 ALBA ROSA APRN Ot J43.9 EMPHYSEMA, UNSPECIFIED 08/15/2018 ALBA ROSA APRN Ot K21.9 GASTRO-ESOPHAGEAL REFLUX DISEASE WITHOUT 08/15/2018 ALBA ROSA APRN Ot T18.120A FOOD IN ESOPHAGUS CAUSING COMPRESSION OF 08/15/2018 ALBA ROSA APRN Ot Z77.22 CNTCT W AND EXPSR TO ENVIRON TOBACCO SMO 08/15/2018 ALBA ROSA APRN Ot Z80.0 FAMILY HISTORY OF MALIGNANT NEOPLASM OF 08/15/2018 ALBA ROSA APRN Ot Z80.42 FAMILY HISTORY OF MALIGNANT NEOPLASM OF 08/15/2018 ALBA ROSA APRN Ot Z85.828 PERSONAL HISTORY OF OTHER MALIGNANT NEOP 08/15/2018 ALBA ROSA APRN Ot Z87.19 PERSONAL HISTORY OF OTHER DISEASES OF TH 08/15/2018 ALBA ROSA APRN Ot Z88.6 ALLERGY STATUS TO ANALGESIC AGENT STATUS 08/15/2018 ALBA ROSA APRN Ot Z90.49 ACQUIRED ABSENCE OF OTHER SPECIFIED PART 08/15/2018 ALBA ROSA APRN Ot Z91.5 PERSONAL HISTORY OF SELF-HARM 08/15/2018 ALBA ROSA APRN Ot Z92.21 PERSONAL HISTORY OF ANTINEOPLASTIC CHEMO 08/15/2018 ALBA ROSA APRN Ot Z95.9 PRESENCE OF CARDIAC AND VASCULAR IMPLANT 08/16/2018 RIK BRADY MD Ot E78.00 PURE HYPERCHOLESTEROLEMIA, UNSPECIFIED 08/16/2018 RIK BRADY MD Ot F32.9 MAJOR DEPRESSIVE DISORDER, SINGLE EPISOD 08/16/2018 RIK BRADY MD, Ot F41.9 ANXIETY DISORDER, UNSPECIFIED 08/16/2018 RIK BRADY MD Ot I10 ESSENTIAL (PRIMARY) HYPERTENSION 08/16/2018 RIK BRADY MD, Ot I25.10 ATHSCL HEART DISEASE OF [place] CORONARY 08/16/2018 RIK BRADY MD, Ot J44.9 CHRONIC OBSTRUCTIVE PULMONARY DISEASE, U 08/16/2018 RIK BRADY MD, Ot K21.0 GASTRO-ESOPHAGEAL REFLUX DISEASE WITH ES 08/16/2018 RIK BRADY MD, Ot K22.2 ESOPHAGEAL OBSTRUCTION 08/16/2018 RIK BRADY MD, Ot K29.70 GASTRITIS, UNSPECIFIED, WITHOUT BLEEDING 08/16/2018 RIK BRADY MD, Ot T18.198A OTH FOREIGN OBJECT IN ESOPHAGUS CAUSING 08/16/2018 RIK BRADY MD, Ot 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 08/16/2018 RIK BRADY MD, Ot Z80.0 FAMILY HISTORY OF MALIGNANT NEOPLASM OF 08/16/2018 RIK BRADY MD, Ot Z80.3 FAMILY HISTORY OF MALIGNANT NEOPLASM OF 08/16/2018 RIK BRADY MD, Ot Z80.42 FAMILY HISTORY OF MALIGNANT NEOPLASM OF 08/16/2018 RIK BRADY MD, Ot Z85.828 PERSONAL HISTORY OF OTHER MALIGNANT NEOP 08/16/2018 RIK BRADY MD, Ot Z91.19 PATIENT'S NONCOMPLIANCE W OT MEDICAL TR 08/18/2018 ALBA ROSA APRN Ot E78.00 PURE HYPERCHOLESTEROLEMIA, UNSPECIFIED 08/18/2018 ALBA ROSA APRN Ot F32.9 MAJOR DEPRESSIVE DISORDER, SINGLE EPISOD 08/18/2018 ALBA ROSA APRN Ot F41.9 ANXIETY DISORDER, UNSPECIFIED 08/18/2018 ALBA ROSA APRN Ot G25.81 RESTLESS LEGS SYNDROME 08/18/2018 ALBA ROSA APRN Ot I10 ESSENTIAL (PRIMARY) HYPERTENSION 08/18/2018 ALBA ROSA APRN Ot I25.10 ATHSCL HEART DISEASE OF [place] CORONARY 08/18/2018 ALBA ROSA APRN, Ot J43.9 EMPHYSEMA, UNSPECIFIED 08/18/2018 ALBA ROSA APRN Ot K21.9 GASTRO-ESOPHAGEAL REFLUX DISEASE WITHOUT 08/18/2018 ALBA ROSA APRN Ot T18.120A FOOD IN ESOPHAGUS CAUSING COMPRESSION OF 08/18/2018 ALBA ROSA APRN Ot Z77.22 CNTCT W AND EXPSR TO ENVIRON TOBACCO SMO 08/18/2018 ALBA ROSA APRN Ot Z80.0 FAMILY HISTORY OF MALIGNANT NEOPLASM OF 08/18/2018 ALBA ROSA APRN, Ot Z80.42 FAMILY HISTORY OF MALIGNANT NEOPLASM OF 08/18/2018 ALBA ROSA APRN, Ot Z85.828 PERSONAL HISTORY OF OTHER MALIGNANT NEOP 08/18/2018 ALBA ROSA APRN, Ot Z87.19 PERSONAL HISTORY OF OTHER DISEASES OF [place] 08/18/2018 ALBA ROSA APRN, Ot Z88.6 ALLERGY STATUS TO ANALGESIC AGENT STATUS 08/18/2018 ALBA ROSA APRN, Ot Z90.49 ACQUIRED ABSENCE OF OTHER SPECIFIED PART 08/18/2018 ALBA ROSA APRN, Ot Z91.5 PERSONAL HISTORY OF SELF-HARM 08/18/2018 ALBA ROSA APRN Ot Z92.21 PERSONAL HISTORY OF ANTINEOPLASTIC CHEMO 08/18/2018 ALBA ROSA APRN Ot Z95.9 PRESENCE OF CARDIAC AND VASCULAR IMPLANT 08/19/2018 RIK BRADY MD, Ot E78.00 PURE HYPERCHOLESTEROLEMIA, UNSPECIFIED 08/19/2018 RIK BRADY MD, Ot F32.9 MAJOR DEPRESSIVE DISORDER, SINGLE EPISOD 08/19/2018 RIK BRADY MD, Ot F41.9 ANXIETY DISORDER, UNSPECIFIED 08/19/2018 RIK BRADY MD, Ot I10 ESSENTIAL (PRIMARY) HYPERTENSION 08/19/2018 RIK BRADY MD, Ot I25.10 ATHSCL HEART DISEASE OF [place] CORONARY 08/19/2018 RIK BRADY MD, Ot J44.9 CHRONIC OBSTRUCTIVE PULMONARY DISEASE, U 08/19/2018 RIK BRADY MD, Ot K21.0 GASTRO-ESOPHAGEAL REFLUX DISEASE WITH ES 08/19/2018 RIK BRADY MD, Ot K22.2 ESOPHAGEAL OBSTRUCTION 08/19/2018 RIK BRADY MD, Ot K29.70 GASTRITIS, UNSPECIFIED, WITHOUT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
[2018-10-03] MEDS ORDERED: HYDROcodone/APAP 5 MG/325 MG (LORTAB) TAB PO ONE (18:00)
[2018-10-03] MEDS ORDERED: ONDN4T PO (18:15)
--- NOTE | 2018-10-03 18:16 | ED EENT ---
History of Present Illness General Chief Complaint: Ear Problems Stated Complaint: EAR PAIN Nursing Triage Note: STATES HE IS SCHEDULED TO HAVE A CANCER REMOVED FROM THE TOP PART OF HIS EAR ON THURSDAY WITH KIDO. STATES HE IS UNABLE TO SLEEP DUE TO THE PAIN. WAS GIVEN TRAMADOL BUT IT MAKES HIM VOMIT. Source: patient Exam Limitations: no limitations History of Present Illness Date Seen by Provider: Oct 03, 2018 Time Seen by Provider: 17:00 Initial Comments 63-year-old male who presents to the emergency room for complaints of pain to the top of his right ear. He does have a skin cancer to the area that he is scheduled to have removed on of this week. He reports that he is unable to sleep due to the pain and was given tramadol but it does make him vomit. He denies trying any Tylenol. He does have an allergy to ibuprofen. Location: ear (R) Prearrival Treatment: prescription meds Allergies and Home Medications Allergies Coded Allergies: ibuprofen (Verified Allergy, Unknown, 04/05/15) HYPERTENSION tramadol (Verified Adverse Reaction, Unknown, VOMIT, 10/03/18) Past Aixygph-Yxlkwi-Bxxmrl Hx Patient Social History Alcohol Use: Denies Use Recreational Drug Use: No Drug of Choice: XANAX, NARCOTICS, HAS ALSO TESTED + FOR METHAMPHETAMIES Smoking Status: Current Everyday Smoker Type Used: Cigarettes 2nd Hand Smoke Exposure: Yes Recent Foreign Travel: No Contact w/Someone Who Travel: No Recent Infectious Disease Expo: No Recent Hopitalizations: No Immunizations Up To Date Tetanus Booster (TDap): Less than 5yrs PED Vaccines UTD: No Date of Pneumonia Vaccine: May 26, 2017 Date of Influenza Vaccine: May 26, 2017 Seasonal Allergies Seasonal Allergies: No Past Medical History Surgeries: Yes (3 upper scopes for food bolus) Appendectomy, Ear Surgery, Gallbladder, Orthopedic Respiratory: Yes (PER OLD RECORDS, PT HAS COPD, BUT PT DENIES) Chronic Bronchitis, COPD, Emphysema Cardiac: Yes (MINIMAL, NON-OCCLUSIVE SMALL VESSEL DISEASE, EF 50% PER CATH ) Coronary Artery Disease, High Cholesterol, Hypertension Neurological: Yes (RESTLESS LEG SYNDROME) Reproductive Disorders: No Sexually Transmitted Disease: No HIV/AIDS: No Genitourinary: No Gastrointestinal: Yes (CHRONIC DYSPHAGIA AND HOARSENESS; ESOPHAGEAL STRICTURE) Gastroesophageal Reflux Musculoskeletal: Yes Degenerate Disk Disease, Chronic Back Pain Endocrine: No HEENT: Yes (POOR DENTITION; BMT'S ) Chronic Ear Infection Hearing Impairment: Hard of Hearing Cancer: Yes Skin Did You Recieve Any Treatments: Yes What Type of Treatment Did You: Surgical Intervention Psychosocial: Yes Anxiety, Suicide Attempts, Depression Integumentary: No Blood Disorders: No Adverse Reaction/Blood Tranf: No Family Medical History Cancer 03 FATHER (PROSTATE) 03 MOTHER (BREAST CA ) 09 BROTHER (THROAT/PANCREATIC) 09 SISTER (LIVER) DEAFNESS 03 FATHER 09 BROTHER Family history: Breast disease 03 MOTHER (BREAST CA) History of - respiratory disease Prostate cancer 03 FATHER Stroke 03 MOTHER Visual impairment Cancer Physical Exam Vital Signs Vital Signs - First Documented 10/03/18 16:38 Temp 98.1 Pulse 86 Resp 16 B/P (MAP) 158/82 (107) Pulse Ox 98 O2 Delivery Room Air Height, Weight, BMI Height: 5'6.00" Weight: 135lbs. 0.0oz. 61.436877zl; 22.0 BMI Method:Stated Progress/Results/Core Measures Results/Orders My Orders Orders - DONTA MALONEY Hydrocodone/Apap 5/325 Tablet (Lortab 5 (10/03/18 18:00) Medications Given in ED Current Medications Medications Dose Ordered Sig/Isabell Route Start Time Stop Time Status Last Admin Dose Admin Acetaminophen/ Hydrocodone Bitart 1 tab ONCE ONCE PO 10/03/18 18:00 10/03/18 18:01 DC 10/03/18 18:07 1 TAB Vital Signs/I&O 10/03/18 16:38 Temp 98.1 Pulse 86 Resp 16 B/P (MAP) 158/82 (107) Pulse Ox 98 O2 Delivery Room Air Blood Pressure Mean: 107 Departure Impression Primary Impression: Cancer of skin of right ear Disposition: HOME, SELF-CARE Condition: Stable/Unchanged Departure-Patient Inst. Decision time for Depature: 18:13 Referrals: NO,LOCAL PHYSICIAN (PCP/Family) Primary Care Physician Patient Instructions: Skin Cancer (Non-Melanoma) (DC) Add. Discharge Instructions: Take medications as directed. You may use khfv-cia-[id number] Tylenol as directed by the bottle for pain relief. I have prescribed use Zofran to take prior to taking her tramadol to prevent nausea vomiting. Keep your appointment with Dr. BRADY on to have the cancer removed. Return back to the emergency room for worsening symptoms or concerns as needed. All discharge instructions reviewed with patient and/or family. Voiced understanding. Scripts Ondansetron HCl (Zofran) 4 Mg Tab 4 MG PO Q4H, #14 TAB Prov: DONTA MALONEY 10/03/18 DONTA MALONEY Oct 03, 2018 18:15
[2018-10-03 18:21] VITALS: BP 158/82
== END 2018-10-03 18:21 | disposition home or self-care (01) ==
LOC: EDUNIT# 16:25 → ER 16:26
DX: C44.202 Unspecified malignant neoplasm of skin of right ear and external auricular canal (principal); J43.9 Emphysema, unspecified; I25.10 Atherosclerotic heart disease of native coronary artery without angina pectoris; E78.00 Pure hypercholesterolemia, unspecified; I10 Essential (primary) hypertension; K21.9 Gastro-esophageal reflux disease without esophagitis; F41.9 Anxiety disorder, unspecified; F32.9 Major depressive disorder, single episode, unspecified; F17.210 Nicotine dependence, cigarettes, uncomplicated; Z85.828 Personal history of other malignant neoplasm of skin; Z90.49 Acquired absence of other specified parts of digestive tract; Z88.6 Allergy status to analgesic agent; Z88.5 Allergy status to narcotic agent; Z80.3 Family history of malignant neoplasm of breast; Z80.42 Family history of malignant neoplasm of prostate
CPT/HCPCS: 99283

== ENCOUNTER 2018-10-07 14:30 | Day surgery (SDC) | payer MEDICARE ==
[~2018-10-07] VITALS: Ht 167.6 cm; Wt 61.2 kg
[~2018-10-07 14:30] MED LIST changes: +ONDN4T PO
--- NOTE | 2018-10-07 14:37 | Progress Note-Pre Operative ---
Pre-Operative Progress Note H&P Reviewed The H&P was reviewed, patient examined and no changes noted. Date Seen by Provider: Oct 07, 2018 Time Seen by Provider: 14:30 Date H&P Reviewed: Oct 07, 2018 Time H&P Reviewed: 14:30 Pre-Operative Diagnosis: sx lesion right ear 2cm, right dorsal hand x2(1 cm) RIK BRADY MD Oct 07, 2018 14:37
[2018-10-07] MEDS ORDERED: HYDR-34 PO (14:39)
[2018-10-07] MEDS ORDERED: LACTATED RINGERS 1,000 ML IV PRN (14:39)
--- NOTE | 2018-10-07 14:40 | Discharge Inst-Surgical ---
D/C Lap Instructions-KIDJillian New, Converted, or Re-Newed RX: RX on Chart Follow Up Appt in 1 week Activity as tolerated Regular Diet Symptoms to Report: Fever over 101 degree F, Nausea/Vomiting Infection Signs and Symptoms to report: Increased redness, Foul odor of wound, Increased drainage Bathing instructions: May shower Operative Area Clean/Dry; Keep incision clean/dry If any problems/questions: Contact your physician or go to Emergency Room RIK BRADY MD Oct 07, 2018 14:40
[2018-10-07] MEDS ORDERED: ONDANSETRON 4 MG/2 ML (SDV) Z0FRAN IVP PRN (14:45)
[2018-10-07] MEDS ORDERED: ceFAZolin 1,000 MG/SWFI 10 ML IV PUSH IV ONE ×2 (14:45)
[2018-10-07] MEDS ORDERED: HYDROcodone/APAP 5 MG/325 MG (LORTAB) TAB PO ONE (14:45)
[2018-10-07] MEDS ORDERED: morphine INJ 10 MG/ML 1ML (SYR OR VIAL) IVP PRN (14:45)
[2018-10-07] MEDS ORDERED: ACETAMINOPHEN 325 MG TABLET PO PRN (14:45)
[2018-10-07 15:00] VITALS: BP 140/87
[2018-10-07] MEDS ORDERED: PROPOFOL INJECTION 50 ML IV ONE (15:15)
[2018-10-07] MEDS ORDERED: fentaNYL INJECTION 100 MCG/2 ML AMP ONE (15:15)
[2018-10-07] MEDS ORDERED: MIDAZOLAM 2 MG/2 ML (VERSED) VIAL ONE (15:16)
[2018-10-07] MEDS ORDERED: ASPI-586 PO (15:22)
[2018-10-07] MEDS ORDERED: BUPIVACAINE 0.5% 30 ML (SENSORCAINE) VIAL ONE (16:01)
--- NOTE | 2018-10-07 17:08 | Progress Note-Post Operative ---
Post-Operative Progess Note Surgeon (s)/Piping Drafter (s) Surgeon RIK BRADY MD Piping Drafter: adan rodrigues FLEXO PRESS OPERATOR Pre-Operative Diagnosis sx lesion right ear 2cm, right dorsal hand x2(1 cm) Post-Operative Diagnosis same(ear lesion 3cm in greatest length) Procedure & Operative Findings Date of Procedure 10/07/18 Procedure Performed/Findings excision sx lesion right ear, right dorsal hand x2 Anesthesia Type MAC with local Estimated Blood Loss Estimated blood loss (mL): minimal Specimens/Packing Specimens Removed right ear lesion, right hand lesion x2 RIK BRADY MD Oct 07, 2018 17:08
[2018-10-07 17:25] VITALS: BP 143/91
[2018-10-07] MEDS ORDERED: HYDROcodone/APAP 5 MG/325 MG (LORTAB) TAB ONE (17:47)
[2018-10-07 17:55] VITALS: BP 138/88
[2018-10-07 18:05] VITALS: BP 138/88
--- NOTE | 2018-10-08 00:49 | OPERATIVE REPORT ---
DATE OF SERVICE: 10/07/2018 PREOPERATIVE DIAGNOSES: Symptomatic skin lesions of the dorsal aspect of the right hand, both approximately 1 cm in size, symptomatic lesion of the right ear along the external superior and lateral aspect, which follows the curvature of the ear on the sun exposed area. This is approximately 3 cm in longest length. POSTOPERATIVE DIAGNOSES: Symptomatic skin lesions of the dorsal aspect of the right hand, both approximately 1 cm in size, symptomatic lesion of the right ear along the external superior and lateral aspect, which follows the curvature of the ear on the sun exposed area. This is approximately 3 cm in longest length. PROCEDURE: Excision dorsal aspect right hand lesion x2, 1 cm in size, excision lesion right ear 3 cm in greatest length. SURGEON: Rik Brady MD LOGISTICS TECH: Rojas Pierson APRN ANESTHESIA: Monitored anesthesia care with local. ESTIMATED BLOOD LOSS: Minimal. FINDINGS: Raised hyperkeratotic lesions, which may indicate benign seborrheic keratosis; however, may also encompassed basal cell or squamous cell skin cancer. DISPOSITION: The patient tolerated the procedure well. INDICATIONS: The patient is a 63-year-old male who we have seen before in the past for significant gastroesophageal reflux disease as well as distal esophageal stricture. He returned to the office with painful, dry symptomatic lesions, which would bleed. There are two lesions along the dorsal aspect of his right hand, which have grown larger in size and painful. He also reports that the similar lesion of the right ear has also developed. This lesion follows along the curvature of the ear along the external pinna starting at the superior aspect of the ear and then following laterally. The length of the lesion was approximately 3 cm in size and is raised and hyperkeratotic and states that this lesion is also painful. DESCRIPTION OF PROCEDURE: The patient was brought to the operating room, laid supine on the table. After adequate IV pain and sedative medications and monitored anesthesia care, the hand and ear were prepped and draped in standard surgical fashion. A 0.5% Marcaine was then used to anesthetize the lesions overlying the right hand and both of them were fully excised using a 15 blade. Good hemostasis was observed with direct pressure and electrocautery. Skin edges were approximated using 4-0 nylon interrupted sutures. We then proceeded with excision of the right ear lesion. The lesion was excised along the length of the ear starting at the superior aspect following along the left lateral aspect and grossly encompassing all the aspects of the lesion. The open superior and lateral aspect of the ear were then sutured using 3-0 and 4-0 nylon running suture. The lesions were then cleaned and covered with sterile gauze. The patient tolerated the procedure well. We will have him follow up in office in approximately 1 week to remove the sutures as well as to discuss the pathology results. Job ID: [id number] DocumentID: [id number] Dictated Date: 10/07/2018 17:20:29 Supervisor Publications Production Date: 10/08/2018 00:48:51 Dictated By: RIK BRADY MD
== END 2018-10-07 18:05 | disposition home or self-care (01) ==
LOC: SDC 14:30
PROVIDERS: ATTEND Surgery
DX: L57.0 Actinic keratosis (principal); K21.9 Gastro-esophageal reflux disease without esophagitis; Z87.891 Personal history of nicotine dependence
CPT/HCPCS: 87081

== ENCOUNTER 2018-11-20 15:35 | Emergency (ER) | payer MEDICARE ==
[~2018-11-20] VITALS: Ht 167.6 cm; Wt 59.0 kg
[~2018-11-20 15:35] MED LIST changes: +HYDR-34 PO
[2018-11-20] MEDS ORDERED: CELE200C PO (15:51)
--- NOTE | 2018-11-20 15:51 | ED Upper Extremity ---
General Stated Complaint: L SHOULDER PAIN Source: patient Exam Limitations: no limitations History of Present Illness Date Seen by Provider: Nov 20, 2018 Time Seen by Provider: 15:46 Initial Comments To ER with left shoulder pain ongoing without known precipitating injury times one month. He was just seen at the walk-in clinic and given an injection in the left shoulder 1 hour ago but denies improvement so came to the emergency room .he is wearing a sling. He also complains of pain to the right inner ear Onset: other Severity: moderate Pain/Injury Location: left shoulder Method of Injury: unknown Modifying Factors: Worse With Movement Allergies and Home Medications Allergies Coded Allergies: ibuprofen (Verified Allergy, Unknown, 04/05/15) HYPERTENSION tramadol (Verified Adverse Reaction, Unknown, VOMIT, 10/03/18) Home Medications Aspirin 81 Mg Tablet.dr, 81 MG PO DAILY, (Reported) Celecoxib 200 Mg Capsule, 200 MG PO DAILY Prescribed by: ALBA ROSA on 11/20/18 1551 Hydrocodone Bit/Acetaminophen 1 Ea Tablet, 1 EACH PO Q4H PRN for PAIN-MODERATE Prescribed by: RIK BRADY on 10/07/18 1439 Patient Home Medication List Home Medication List Reviewed: Yes Review of Systems Constitutional: see HPI EENTM: see HPI Respiratory: no symptoms reported Cardiovascular: no symptoms reported Musculoskeletal: see HPI Skin: no symptoms reported Psychiatric/Neurological: No Symptoms Reported Past Jgktuiy-Hboowp-Ewqvbg Hx Patient Social History Drug of Choice: XANAX, NARCOTICS, HAS ALSO HX OF TESTING + FOR METHAMPHETAMIES Type Used: Cigarettes 2nd Hand Smoke Exposure: Yes Recent Foreign Travel: No Contact w/Someone Who Travel: No Recent Hopitalizations: No Immunizations Up To Date Tetanus Booster (TDap): Less than 5yrs PED Vaccines UTD: No Date of Pneumonia Vaccine: May 26, 2017 Date of Influenza Vaccine: May 24, 2018 Seasonal Allergies Seasonal Allergies: No Past Medical History Surgeries: Yes (3 upper scopes for food bolus, BACK X2, NECK X3, R RCR) Appendectomy, Ear Surgery, Gallbladder, Orthopedic Respiratory: Yes (PER OLD RECORDS, PT HAS COPD, BUT PT DENIES) Chronic Bronchitis, COPD, Emphysema Cardiac: Yes (MINIMAL, NON-OCCLUSIVE SMALL VESSEL DISEASE, EF 50% PER CATH ) Coronary Artery Disease, High Cholesterol, Hypertension Neurological: Yes (RESTLESS LEG SYNDROME) Reproductive Disorders: No Sexually Transmitted Disease: No HIV/AIDS: No Genitourinary: No Gastrointestinal: Yes (CHRONIC DYSPHAGIA AND HOARSENESS; ESOPHAGEAL STRICTURE) Gastroesophageal Reflux Musculoskeletal: Yes Degenerate Disk Disease, Chronic Back Pain Endocrine: No HEENT: Yes (POOR DENTITION; BMT'S ) Chronic Ear Infection Hearing Impairment: Hard of Hearing Cancer: Yes Skin Did You Recieve Any Treatments: Yes What Type of Treatment Did You: Surgical Intervention Psychosocial: Yes Anxiety, Suicide Attempts, Depression Integumentary: No Blood Disorders: No Adverse Reaction/Blood Tranf: No (N/A) Family Medical History Cancer 03 FATHER (PROSTATE) 03 MOTHER (BREAST CA ) 09 BROTHER (THROAT/PANCREATIC) 09 SISTER (LIVER) DEAFNESS 03 FATHER 09 BROTHER Family history: Breast disease 03 MOTHER (BREAST CA) History of - respiratory disease Prostate cancer 03 FATHER Stroke 03 MOTHER Visual impairment Cancer Physical Exam Vital Signs Capillary Refill : Height, Weight, BMI Height: 5'6.00" Weight: 135lbs. 0.0oz. 61.025919ey; 21.8 BMI Method:Stated General Appearance: WD/WN, no apparent distress HEENT: PERRL/EOMI, normal ENT inspection, other (right TM is dull and bulging with a moist and swollen outer ear canal) Neck: non-tender, full range of motion Respiratory: no respiratory distress, no accessory muscle use Shoulder: normal inspection, non-tender, limited ROM, pain Elbow/Forearm: normal inspection, non-tender Wrist: Yes normal inspection, Yes non-tender Hand: normal inspection, non-tender Neurologic/Psychiatric: alert, normal mood/affect, oriented x 3 Skin: normal color, warm/dry Departure Impression Primary Impression: Shoulder pain, left Qualified Codes: M25.512 - Pain in left shoulder; G89.29 - Other chronic pain Additional Impression: Otitis externa of right ear Qualified Codes: H60.501 - Unspecified acute noninfective otitis externa, right ear Disposition: 01 HOME, SELF-CARE Condition: Stable Departure-Patient Inst. Decision time for Depature: 15:47 Referrals: LUPE SUH MD, BRIAN J MD NO,LOCAL PHYSICIAN (PCP) Primary Care Physician EMILIA DAO MD, ROBERT F DO ZAFUTA,SEN Maya MD Patient Instructions: Shoulder Pain (DC), Outer Ear Infection (DC) Add. Discharge Instructions: 1. Anti-inflammatories as directed 2. Wear the sling as needed 3. Call one of the orthopedic surgeons listed to make an appointment to be seen for follow-up or call [facility] to make an appointment to be seen and referral to an orthopedist. Scripts Ofloxacin (Floxin (Non-Formulary)) 5 Ml Drops 5 DROPS RIGHT EAR BID for 5 Days, #1 DROPS 0 Refills Prov: ALBA ROSA APRN 11/20/18 Amoxicillin (Amoxicillin) 500 Mg Capsule 500 MG PO TID, #21 CAP Prov: ALBA ROSA APRN 11/20/18 Celecoxib (Celebrex) 200 Mg Capsule 200 MG PO DAILY, #14 EA Prov: ALBA ROSA APRN 11/20/18 ALBA ROSA APRN Nov 20, 2018 15:51
[2018-11-20] MEDS ORDERED: OFLO5DRO7 RIGHT EAR (15:53)
[2018-11-20] MEDS ORDERED: AMOX500C2 PO (15:53)
[2018-11-20] MEDS ORDERED: HYDROcodone/APAP 5 MG/325 MG (LORTAB) TAB PO ONE (16:00)
--- NOTE | 2018-11-20 16:21 | Diagnostic Imaging Report ---
INDICATION: Shoulder pain. EXAMINATION: Three views of the left shoulder were obtained. FINDINGS: There is kyphosis of the acromioclavicular joint. Alignment is otherwise normal. There is no fracture dislocation. Left lung is clear. Soft tissues are unremarkable. IMPRESSION: Arthrosis of the left acromioclavicular joint, otherwise unremarkable. Dictated by: Dictated on workstation # [id number]
[2018-11-20 16:45] VITALS: BP 145/76
[2018-11-24] MEDS ORDERED: PANT40TA2 PO (17:08)
== END 2018-11-20 16:45 | disposition home or self-care (01) ==
LOC: EDUNIT# 15:35 → ER 15:36
DX: M25.512 Pain in left shoulder (principal); H60.91 Unspecified otitis externa, right ear; J43.9 Emphysema, unspecified; I25.10 Atherosclerotic heart disease of native coronary artery without angina pectoris; E78.00 Pure hypercholesterolemia, unspecified; K21.9 Gastro-esophageal reflux disease without esophagitis; I10 Essential (primary) hypertension; G25.81 Restless legs syndrome; F41.9 Anxiety disorder, unspecified; F32.9 Major depressive disorder, single episode, unspecified; Z88.6 Allergy status to analgesic agent; Z79.82 Long term (current) use of aspirin; Z85.828 Personal history of other malignant neoplasm of skin; Z80.3 Family history of malignant neoplasm of breast; Z80.0 Family history of malignant neoplasm of digestive organs; Z80.42 Family history of malignant neoplasm of prostate; Z82.49 Family history of ischemic heart disease and other diseases of the circulatory system; Z91.5 Personal history of self-harm; Z77.22 Contact with and (suspected) exposure to environmental tobacco smoke (acute) (chronic); Z90.49 Acquired absence of other specified parts of digestive tract; Z98.890 Other specified postprocedural states; X58.XXXA Exposure to other specified factors, initial encounter
CPT/HCPCS: 73030

== ENCOUNTER → 2018-11-24 | Day surgery (SDC) | payer MEDICARE ==
[~2018-11-24] VITALS: Ht 167.6 cm; Wt 59.0 kg
[~2018-11-24] MED LIST changes: +ACETAMINOPHEN 325 MG TABLET PO PRN; +AMOX500C2 PO; +CELE200C PO; +HURRICAINE EXT TUBE (BENZOCAINE) ONE; +HURRICAINE EXT TUBE (BENZOCAINE) XX ONE; +HYDROcodone/APAP 5 MG/325 MG (LORTAB) TAB PO PRN; +LACTATED RINGERS 1,000 ML IV ONE; +LACTATED RINGERS 1,000 ML IV PRN; +LACTATED RINGERS 1,000 ML IV SCH; +LIDOCAINE JELLY 2% 6 ML SYRINGE ONE; +LIDOCAINE JELLY 2% 6 ML SYRINGE TOP ONE; +MIDAZOLAM 2 MG/2 ML (VERSED) VIAL IVP ONE; +MIDAZOLAM 2 MG/2 ML (VERSED) VIAL ONE; +OFLO5DRO7 RIGHT EAR; +ONDANSETRON 4 MG/2 ML (SDV) Z0FRAN IV PRN; +fentaNYL INJECTION 100 MCG/2 ML AMP IVP ONE; +fentaNYL INJECTION 100 MCG/2 ML AMP ONE; +morphine INJ 10 MG/ML 1ML (SYR OR VIAL) IV PRN
--- NOTE | 2018-11-24 16:39 | ED GI ---
General Stated Complaint: TROUBLE SWALLOWING Source of Information: Patient Exam Limitations: No Limitations History of Present Illness Date Seen by Provider: Nov 24, 2018 Time Seen by Provider: 16:34 Initial Comments To ER with inability to swallow any foods or liquids or his own saliva and eating a turkey sandwich yesterday at about 1 PM when he felt this become lodged in his in his esophagus. This is a recurrent problem for him, most recently had EGD in July 2018 for the same, stricture was noted and balloon dilated Timing/Duration: 1-2 Days Severity/Quality: Moderate Location: Epigastric Radiation: No Radiation Activities at Onset: None Associated Symptoms: Denies Symptoms Allergies and Home Medications Allergies Coded Allergies: ibuprofen (Verified Allergy, Unknown, 04/05/15) HYPERTENSION tramadol (Verified Adverse Reaction, Unknown, VOMIT, 10/03/18) Home Medications Amoxicillin 500 Mg Capsule, 500 MG PO TID Prescribed by: ALBA ROSA on 11/20/18 1553 Aspirin 81 Mg Tablet.dr, 81 MG PO DAILY, (Reported) Celecoxib 200 Mg Capsule, 200 MG PO DAILY Prescribed by: ALBA ROSA on 11/20/18 1551 Hydrocodone Bit/Acetaminophen 1 Ea Tablet, 1 EACH PO Q4H PRN for PAIN-MODERATE Prescribed by: RIK BRADY on 10/07/18 1439 Ofloxacin 5 Ml Drops, 5 DROPS RIGHT EAR BID Prescribed by: ALBA ROSA on 11/20/18 1553 Pantoprazole Sodium 40 Mg Tablet.dr, 40 MG PO DAILY Prescribed by: RIK BRADY on 11/24/18 1708 Patient Home Medication List Home Medication List Reviewed: Yes Review of Systems Review of Systems Constitutional: see HPI EENTM: No Symptoms Reported Respiratory: No Symptoms Reported Cardiovascular: No Symptoms Reported Gastrointestinal: See HPI Genitourinary: No Symptoms Reported Musculoskeletal: no symptoms reported Skin: no symptoms reported Psychiatric/Neurological: No Symptoms Reported Endocrine: No Symptoms Reported Past Gcohddg-Mdjyde-Ddhiys Hx Patient Social History Drug of Choice: XANAX, NARCOTICS, HAS ALSO HX OF TESTING + FOR METHAMPHETAMIES Type Used: Cigarettes 2nd Hand Smoke Exposure: Yes Recent Foreign Travel: No Contact w/Someone Who Travel: No Recent Hopitalizations: No Immunizations Up To Date Tetanus Booster (TDap): Less than 5yrs PED Vaccines UTD: No Date of Pneumonia Vaccine: May 26, 2017 Date of Influenza Vaccine: May 24, 2018 Seasonal Allergies Seasonal Allergies: No Past Medical History Surgeries: Yes (3 upper scopes for food bolus, BACK X2, NECK X3, R RCR) Appendectomy, Ear Surgery, Gallbladder, Orthopedic Respiratory: Yes (PER OLD RECORDS, PT HAS COPD, BUT PT DENIES) Chronic Bronchitis, COPD, Emphysema Cardiac: Yes (MINIMAL, NON-OCCLUSIVE SMALL VESSEL DISEASE, EF 50% PER CATH ) Coronary Artery Disease, High Cholesterol, Hypertension Neurological: Yes (RESTLESS LEG SYNDROME) Reproductive Disorders: No Sexually Transmitted Disease: No HIV/AIDS: No Genitourinary: No Gastrointestinal: Yes (CHRONIC DYSPHAGIA AND HOARSENESS; ESOPHAGEAL STRICTURE) Gastroesophageal Reflux Musculoskeletal: Yes Degenerate Disk Disease, Chronic Back Pain Endocrine: No HEENT: Yes (POOR DENTITION; BMT'S ) Chronic Ear Infection Hearing Impairment: Hard of Hearing Cancer: Yes Skin Did You Recieve Any Treatments: Yes What Type of Treatment Did You: Surgical Intervention Psychosocial: Yes Anxiety, Suicide Attempts, Depression Integumentary: No Blood Disorders: No Adverse Reaction/Blood Tranf: No (N/A) Family Medical History Cancer 03 FATHER (PROSTATE) 03 MOTHER (BREAST CA ) 09 BROTHER (THROAT/PANCREATIC) 09 SISTER (LIVER) DEAFNESS 03 FATHER 09 BROTHER Family history: Breast disease 03 MOTHER (BREAST CA) History of - respiratory disease Prostate cancer 03 FATHER Stroke 03 MOTHER Visual impairment Cancer Physical Exam Vital Signs Vital Signs - First Documented 11/24/18 16:23 Temp 98.1 Pulse 78 Resp 16 B/P (MAP) 153/98 (116) Pulse Ox 97 Capillary Refill : Height/Weight/BMI Height: 5'6.00" Weight: 130lbs. 0.0oz. 58.387187hg; 21.8 BMI Method:Stated General Appearance: WD/WN, no apparent distress, other HEENT: PERRL/EOMI, normal ENT inspection Respiratory: no respiratory distress, no accessory muscle use Gastrointestinal: normal bowel sounds, non tender, soft Extremities: normal range of motion, non-tender Neurologic/Psychiatric: alert, normal mood/affect, oriented x 3 Skin: normal color, warm/dry Progress/Results/Core Measures Results/Orders My Orders Orders - ALBA ROSA APRN Iv Heplock-Insert (Order) (11/24/18 16:28) Lactated Ringers (Lr 1000 Ml Iv Solution (11/24/18 16:30) Vital Signs/I&O 11/24/18 16:23 Temp 98.1 Pulse 78 Resp 16 B/P (MAP) 153/98 (116) Pulse Ox 97 Departure Communication (Admissions) 2150-I discussed the case with Dr. Brady, recommends notifying endoscopy crew with intent to do upper GI scope/removal. Impression Primary Impression: Dysphagia Qualified Codes: R13.10 - Dysphagia, unspecified Disposition: HOME, SELF-CARE Condition: Stable Departure-Patient Inst. Decision time for Depature: 19:40 Referrals: NO,LOCAL PHYSICIAN (PCP/Family) Primary Care Physician Patient Instructions: Dysphagia Add. Discharge Instructions: . Follow-up with Dr. Brady.soft diet for the next 1-2 days.follow any other dietary restrictions given to you by Dr. Brady Scripts Pantoprazole Sodium (Protonix) 40 Mg Tablet. 40 MG PO DAILY, #90 TAB Prov: RIK BRADY MD 11/24/18 ALBA ROSA APRN Nov 24, 2018 16:39
--- OUTSIDE RECORDS SUMMARY | 2018-11-24 16:42 | XMS REPORT ---
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 98712806 Problem Bilateral hearing loss, unspecified hearing loss type H91.93 Active 95984950 ALLERGIES No Information ENCOUNTERS Encounter Location Date Diagnosis [place] [address] [address] Aug, Degenerative disc disease, lumbar M51.36 ; Blurry vision, bilateral H53.8 ; Bilateral hearing loss, unspecified hearing loss type H91.93 and Essential hypertension I10 [place] [address] [place] [id number] [place] [address] Jul, [place] [address] [address] Jul, [place] [address] [place] [id number] [place] [address] Jun, [facility] [address] [address] Jun, Other chronic pain G89.29 [facility] [address] [place] [id number] [place] [address] Jun, [place] [address] [address] May, 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 [address] [address] Apr, Other eczema L30.8 [facility] [address] [address] Aug, Low back pain M54.5 ; Other chronic pain G89.29 and Lumbosacral radiculopathy M54.[address] [facility] [address] [address] Jul, Acute left-sided low back pain without sciatica M54.5 and Drug-seeking behavior Z76.[address] [facility] [address] [address] Jul, Urinary retention R33.9 [facility] [address] [address] Mar, [facility] [address] [place] [id number] [place] [address] Nov, [facility] [address] [place] [id number] [place] [address] Nov, [facility] [address] [place] [id number] [place] [address] December, [facility] [address] [address] December, [facility] [address] [place] [id number] [place] [address] Nov, [facility] [address] [address] Nov, [facility] [address] [id number] [place] [address] Nov, [facility] [place] [facility] [address] [id number] [place] [address] Nov, [facility] [place] [facility] [address] [id number] [place] [address] Nov, [facility] [place] [facility] [address] [id number] [place] [address] Nov, [facility] [place] [facility] [address] [id number] [place] [address] Nov, [facility] [place] [facility] [address] [id number] [place] [address] Nov, [facility] [place] [facility] [address] [id number] [place] [address] Nov, [facility] [place] [facility] [address] [id number] [place] [address] Nov, [facility] [place] [facility] [address] [id number] [place] [address] Oct, [facility] [place] [facility] [address] [id number] [place] [address] Oct, [facility] [place] [facility] [address] [id number] [place] [address] Sep, [facility] [place] [facility] [address] [id number] [place] [address] Sep, [facility] [place] [facility] [address] [id number] [place] [address] Jul, [facility] [place] [facility] [address] [id number] [place] [address] Jul, [facility] [place] [facility] [address] [id number] [place] [address] Jul, [facility] [place] [facility] [address] [facility] [id number] [place] [address] Jul, [facility] [address] [facility] [id number], [place] [address] Jan, [facility] [address] [facility] [id number] [place] [address] Nov, IMMUNIZATIONS No Known Immunizations SOCIAL HISTORY Never Assessed REASON FOR VISIT [facility] [place] VITAL SIGNS MEDICATIONS Medication Instructions Dosage Frequency Start Date End Date Duration Status Hydrocodone-Acetaminophen 5-325 mg take 1 tablet by Oral route every 6 hours as needed for pain PRN Must last 15 days Nov, Active RESULTS No Results PROCEDURES No Known [...]
--- OUTSIDE RECORDS SUMMARY | 2018-11-24 16:42 | XMS REPORT | Clinical Summary ---
Author Author [facility] Organization [facility] Address Unknown Phone Unavailable Care Team Providers Care Lehr Cutter Name Role Phone Unverified, Unverified Md PCP Unavailable Source Comments Some departments are not documenting in the electronic medical record. If you do not see the information that you expected, contact Release of Information in the Health Information Management department at [phone] for further assistance in locating additional records.[facility] Allergies Not on File Medications Not [...] 2005 VACCINE (1 of 2) INFLUENZA VACCINE 03/17/2019 Results Not on filefrom Last 3 Months
--- NOTE | 2018-11-24 16:48 | NUR ---
MEHUL CALLED PER DR BRADY
--- OUTSIDE RECORDS SUMMARY | 2018-11-24 16:52 | XMS REPORT | Continuity of Care Document ---
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 [facility] SURGICAL HEAD INJURY, CHEST CONTUSION, NECK PAIN [id number] 09/10/2013 09:21:00 09/10/2013 12:38:00 DIS Emergency TIMI MATTSON DO [facility] ER THROAT PAIN [id number] 07/20/2013 21:11:00 07/21/2013 18:15:00 DIS Inpatient JULIETA GUAMAN MD [facility] SURGICAL MULTIPLE BLUNT TRAUMA;DRUG OVERDOSE [id number] 07/10/2013 20:00:00 07/10/2013 21:13:00 DIS Emergency KRISTINA MONCADA MD [facility] ER ANXIETY [id number] 07/02/2013 16:50:00 07/02/2013 18:17:00 DIS Emergency ALBA ROSA APRN [facility] ER NECK PAIN [id number] 06/01/2013 14:51:00 06/01/2013 19:02:00 DIS Emergency KRISTINA MONCADA MD [facility] ER DIZZINESS/WEAKNESS [id number] 05/16/2013 01:00:00 05/18/2013 19:50:00 DIS Inpatient ELIZA TOPETE HYACINTH Garcia [facility] 4TH BENZODIAZEPINE OVERDOSE [id number] 04/08/2013 13:53:00 04/08/2013 23:59:59 CLS Outpatient TERESO BROWN MD, I [facility] CARD C3-6 PLATE REPLACEMENT [id number] 01/25/2013 15:13:00 01/25/2013 23:59:59 CLS Outpatient TERESO BROWN MD, I [facility] RAD CERVICAL RADICULOPATHY [id number] 01/17/2013 17:20:00 01/18/2013 18:25:00 DIS Outpatient ANDRES GRANDA MD [facility] SDC ESOPHAGEAL FOREIGN BODY [id number] 11/24/2018 16:38:00 ACT Outpatient RIK BRADY MD [facility] ENDO SCOPE [id number] 12/25/2017 11:25:00 Document Registration [id number] 12/25/2017 11:25:00 Document Registration [id number] 12/25/2017 11:25:00 Document Registration [id number] 12/25/2017 11:25:00 Document Registration [id number] 12/25/2017 11:25:00 Document Registration [id number] 12/25/2017 11:25:00 Document Registration [id number] 12/25/2017 11:25:00 Document Registration [id number] 12/25/2017 11:25:00 Document Registration [id number] 12/25/2017 11:25:00 Document Registration [id number] 12/25/2017 11:25:00 Document Registration [id number] 12/25/2017 11:25:00 Document Registration [id number] 12/25/2017 11:25:00 Document Registration [id number] 12/29/2016 10:16:00 Document Registration [id number] 02/03/2016 23:43:00 Document Registration [id number] 12/06/2014 15:32:00 Document Registration [id number] 12/06/2014 15:32:00 Document Registration [id number] 12/06/2014 15:32:00 Document Registration [id number] 12/06/2014 15:32:00 Document Registration [id number] 08/03/2012 18:02:00 Document Registration [id number] 03/12/2012 14:36:00 Document Registration [id number] 01/29/2012 05:38:00 Document Registration [id number] 01/26/2012 08:48:00 Document Registration [id number] 01/25/2012 11:08:00 Document Registration [id number] 08/30/2011 11:14:00 Document Registration [id number] 04/03/2011 16:18:00 Document Registration [id number] 02/18/2011 14:42:00 Document Registration [id number] 09/11/2010 11:03:00 Document Registration [id number] 08/20/2010 10:07:00 Document Registration [id number] 08/18/2010 11:25:00 Document Registration [id number] 08/12/2010 16:16:00 Document Registration [id number] 09/22/2009 15:46:00 Document Registration [id number] 11/08/2008 13:16:00 Document Registration [id number] 10/25/2005 12:46:00 Document Registration [id number] 11/20/2018 14:40:00 11/20/2018 23:59:59 [facility] Outpatient GOMEZ NAYAK, ARIADNA PAYNE [facility] [id number] 05/28/2017 15:00:00 Document Registration
--- NOTE | 2018-11-24 17:06 | Conscious Sedation/ASA ---
Conscious Sedation Pre-Proced Time 17:00 ASA Score 2 For ASA 3 and 4: Consider anesthesia and medical clearance. Also, for patients with a history of failed moderate sedation consider anesthesia. Airway Lungs Heart ASA score ASA 1: a normal healthy patient ASA 2: a patient with a mild systemic disease (mid diabetes, controlled hypertension, obesity ASA 3: a patient with a severe systemic disease that limits activity (angina , COPD, prior Myocardial infarction) ASA 4: a patient with an incapacitating disease that is a constant threat to life (CHF, renal failure) ASA 5: a moribund patient not expected to survive 24 hrs. (ruptured aneurysm) ASA 6: a declared brain- patient whose organs are being harvested. For emergent operations, add the letter E after the classification Mallampati Classification Grade 2 Sedation Plan Analgesia, Amnesia, Plan communicated to team members, Discussed options with patient/fam, Discussed risks with patient/fam The patient is an appropriate candidate to undergo the planned procedure, sedation, and anesthesia. The patient immediately re-assessed prior to indication. RIK BRADY MD Nov 24, 2018 17:06
--- NOTE | 2018-11-24 17:07 | Progress Note-Pre Operative ---
Pre-Operative Progress Note H&P Reviewed The H&P was reviewed, patient examined and no changes noted. Date Seen by Provider: Nov 24, 2018 Time Seen by Provider: 17:00 Date H&P Reviewed: Nov 24, 2018 Time H&P Reviewed: 17:00 Pre-Operative Diagnosis: dysphagia, esopageal FB, recurrent stricture RIK BRADY MD Nov 24, 2018 17:07
--- NOTE | 2018-11-24 17:09 | Discharge Inst-Surgical ---
D/C Lap Instructions-KIDO New, Converted, or Re-Newed RX: RX on Chart Follow Up Appt in 6 weeks Activity as tolerated High Fiber Diet 25g or more per day Avoid Alcohol, Caffeine, Spicy [place] and Acid foods. Drink 64 fluid oz or more of fluids per day. Symptoms to Report: Fever over 101 degree F, Nausea/Vomiting If any problems/questions: Contact your physician or go to Emergency Room RIK BRADY MD Nov 24, 2018 17:09
--- NOTE | 2018-11-24 17:21 | NUR ---
TO ENDO PER W/C
--- NOTE | 2018-11-24 18:23 | Progress Note-Post Operative ---
Post-Operative Progess Note Surgeon (s)/Account Administrator (s) Surgeon RIK BRADY MD Account Administrator: none Pre-Operative Diagnosis dysphagia, esopageal FB, recurrent stricture Post-Operative Diagnosis esophageal FB, reflux esophagitis(stage2-3), mild distal esophageal stricture, moderate gastritis, small HH(1cm). Procedure & Operative Findings Date of Procedure 11/24/18 Procedure Performed/Findings EGD, removal FB, balloon dilatation. Anesthesia Type cs Estimated Blood Loss Estimated blood loss (mL): minimal Specimens/Packing Specimens Removed none RIK BRADY MD Nov 24, 2018 18:23
--- NOTE | 2018-11-24 18:44 | NUR ---
BACK FROM ENDO Addendum: 11/24/18 at 1847 by PMCCLURE STAFF REPORTS THAT NOTHING FOUND IN ESOPHAGUS DID DILATE OK FOR HIM TO DRINK NOW.
[2018-11-24 20:40] VITALS: BP 155/108
--- NOTE | 2018-11-25 04:16 | OPERATIVE REPORT ---
DATE OF SERVICE: 11/24/2018 PREOPERATIVE DIAGNOSES: Recurrent dysphagia, stricture, as well as esophageal foreign body. POSTOPERATIVE DIAGNOSES: 1. Distal esophageal foreign body. 2. Mild distal esophageal stricture. 3. Reflux esophagitis between stage II and III. 4. Mild gastritis. 5. No distal obstructions. PROCEDURE: EGD with removal of foreign body and balloon dilatation. SURGEON: Rik Brady MD ANESTHESIA: Conscious sedation. ESTIMATED BLOOD LOSS: Minimal. FINDINGS: Distal esophageal foreign body, mild distal esophageal stricture, reflux esophagitis between stage II and III. Small hiatal hernia, less than 1 cm in size, moderate severity gastritis. Pylorus and duodenum appeared normal with no distal obstructions. DISPOSITION: The patient tolerated the procedure well. INDICATIONS: The patient is a 63-year-old male with a longstanding history of gastroesophageal reflux disease, dysphagia, esophageal stricture and recurrent esophageal foreign bodies as well as noncompliance. He has undergone approximately 5 to 6 previous EGDs as well as removal of esophageal foreign body. The last one was done on 08/16/2018 by us where the food bolus was removed and esophageal dilatation was first performed. He was started on Protonix; however, this gentleman has a longstanding history of noncompliance, did not fill the prescription. He does take multiple nonsteroidal anti-inflammatories as well as other narcotic pain medications. He also does smoke and drink alcoholic beverages. He states that he was eating a sandwich at around 1 p.m. and then felt a pressure sensation in the substernal region and was then unable to swallow any liquids as well as saliva. DESCRIPTION OF PROCEDURE: The patient was brought to the endoscopy suite, laid in the left lateral decubitus position with the head slightly elevated. After adequate IV pain and sedative medications and conscious sedation anesthesia, the mouthpiece was applied. The endoscope was placed in the mouth, visualizing the pharynx and hypopharyngeal region. Vocal cords, epiglottis and vallecula identified, appeared to be normal. The endoscope was then gently intubated in the esophageal opening and esophagus insufflated. The endoscope was then advanced to the first, second and third portions of esophagus at the level of the GE junction. A distal esophageal foreign body was identified, which was reduced with pressure of the endoscope. A reflux esophagitis stage between stage II and III identified. There was also a mild distal esophageal stricture. The endoscope was then advanced into the stomach and endoscope retroflexed, visualizing a small hiatal hernia, less than 1 cm in size. There was moderate gastritis. No formal ulcerations or polyps or neoplasms. Pylorus and duodenum appeared normal with no distal obstructions. We then proceeded with dilatation of esophageal stricture. The balloon was placed in the stomach and pulled back to the area of the stricture. We first proceeded to two atmospheres of pressure with no resistance. We then proceeded to 4 atmospheres of pressure with mild resistance. We then proceeded to 6 atmospheres of pressure with mild to moderate resistance and left this in place for approximately 60 seconds. The balloon was then desufflated and removed with visualization of good hemostasis as well as no mucosal tears. The endoscope was then slowly withdrawn while taking a second look and suctioning residual air with no additional findings. The patient tolerated the procedure well. We will start him on Protonix 40 mg daily as well as again recommend the necessary lifestyle and diet accommodation including smoking, alcohol cessation as well as small and more frequent meals, avoidance of eating at night as well as head elevation while lying supine. He also needs to avoid caffeinated beverages, spicy, greasy and acidic foods. 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 We will recommend that he follow up in approximately 6 weeks. Job ID: [id number] DocumentID: [id number] Dictated Date: 11/24/2018 18:17:52 Coal [employer]er Date: 11/25/2018 04:15:59 Dictated By: RIK BRADY MD
== END | disposition home or self-care (01) ==
LOC: EDUNIT# 16:20 → ER 16:21 → ENDO 16:38
PROVIDERS: ATTEND Surgery
DX: T18.198A Other foreign object in esophagus causing other injury, initial encounter (principal); K22.2 Esophageal obstruction; K21.0 Gastro-esophageal reflux disease with esophagitis; K29.70 Gastritis, unspecified, without bleeding; Z91.19 Patient's noncompliance with other medical treatment and regimen; I10 Essential (primary) hypertension; F41.9 Anxiety disorder, unspecified; F32.9 Major depressive disorder, single episode, unspecified; I25.10 Atherosclerotic heart disease of native coronary artery without angina pectoris; E78.00 Pure hypercholesterolemia, unspecified; Z79.899 Other long term (current) drug therapy; Z80.3 Family history of malignant neoplasm of breast; Z80.0 Family history of malignant neoplasm of digestive organs; Z80.42 Family history of malignant neoplasm of prostate; Z85.828 Personal history of other malignant neoplasm of skin; J43.9 Emphysema, unspecified; F17.210 Nicotine dependence, cigarettes, uncomplicated

== ENCOUNTER 2019-01-06 04:12 | Emergency (ER) | payer MEDICARE ==
[~2019-01-06] VITALS: Ht 167.6 cm; Wt 61.2 kg
[~2019-01-06 04:12] MED LIST changes: -ACETAMINOPHEN 325 MG TABLET PO PRN; -HURRICAINE EXT TUBE (BENZOCAINE) ONE; -HURRICAINE EXT TUBE (BENZOCAINE) XX ONE; -HYDROcodone/APAP 5 MG/325 MG (LORTAB) TAB PO PRN; -LACTATED RINGERS 1,000 ML IV ONE; -LACTATED RINGERS 1,000 ML IV PRN; -LACTATED RINGERS 1,000 ML IV SCH; -LIDOCAINE JELLY 2% 6 ML SYRINGE ONE; -LIDOCAINE JELLY 2% 6 ML SYRINGE TOP ONE; -MIDAZOLAM 2 MG/2 ML (VERSED) VIAL IVP ONE; -MIDAZOLAM 2 MG/2 ML (VERSED) VIAL ONE; -ONDANSETRON 4 MG/2 ML (SDV) Z0FRAN IV PRN; -fentaNYL INJECTION 100 MCG/2 ML AMP IVP ONE; -fentaNYL INJECTION 100 MCG/2 ML AMP ONE; -morphine INJ 10 MG/ML 1ML (SYR OR VIAL) IV PRN
[2019-01-06] MEDS ORDERED: methylPREDNISolone 125 MG (Solu-MEDROL) VIAL IM ONE (04:30)
[2019-01-06] MEDS ORDERED: CYCL10TA9 PO (04:33)
[2019-01-06] MEDS ORDERED: METH4TAB PO (04:33)
--- NOTE | 2019-01-06 04:33 | ED Back Pain ---
General Chief Complaint: Back Problems Stated Complaint: LOWER BACK PAIN Nursing Triage Note: PT STATES X 2 DAYS, LOWER BACK PAIN, MOVING A POOL. STATES WOKE FROM SLEEP Nursing Sepsis Screen: No Definite Risk Source of Information: Patient, Old Records History of Present Illness Date Seen by Provider: January 06, 2019 Time Seen by Provider: 04:25 Initial Comments PT ARRIVES VIA POV IN EXTREME WEATHER CONDITIONS C/O LOWER BACK PAIN IS CHRONIC PROBLEM FOR YEARS AND IS NO DIFFERENT THAN PAIN HE HAS HAD BEFORE--GOT WORSE TONIGHT PT HAS HAD 2 LOWER BACK SURGERIES IN THE PAST DENIES ANY INJURY TO ME--TOLD RN HE WAS "MOVING A POOL" PT ALWAYS HAS SOME NUMBNESS/TINGLING IN BOTH LEGS FOR YEARS AND IS NO DIFFERENT TODAY NO CHANGES IN BOWEL OR BLADDER FUNCTION HAS NOT TAKEN ANYTHING FOR PAIN AT ANY TIME ON ARRIVAL, PT STATES "I CAN'T TAKE TORADOL" BUT CANNOT GIVE REASON WHY HE CANNOT TAKE IT PT HAS HAD A MULTITUDE OF VISITS TO THIS ER FOR SAME, WELL VARIOUS OTHER COMPLAINTS PT HAS BEEN ADVISED MULTIPLE TIMES THAT HE NEEDS TO ESTABLISH WITH PCP FOR ONGOING CARE OF THIS AND OTHER CHRONIC PROBLEMS, AND PT HAS REFUSED TO DO SO. PT HAS AN EXTENSIVE HISTORY OF NON-COMPLIANCE IN ALL ASPECTS OF CARE Other Comments PCP: PT STATES "NONE"--BUT PT HAS BEEN A [facility] [place], DR. 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 Allergies and Home Medications Allergies Coded Allergies: ibuprofen (Verified Allergy, Unknown, 04/05/15) HYPERTENSION tramadol (Verified Adverse Reaction, Unknown, VOMIT, 10/03/18) Home Medications Amoxicillin 500 Mg Capsule, 500 MG PO TID Prescribed by: ALBA ROSA on 11/20/18 1553 Aspirin 81 Mg Tablet.dr, 81 MG PO DAILY, (Reported) Celecoxib 200 Mg Capsule, 200 MG PO DAILY Prescribed by: ALBA ROSA on 11/20/18 1551 Cyclobenzaprine HCl 10 Mg Tablet, 10 MG PO Q8H Prescribed by: TIMI MATTSON on 01/06/19 0433 Hydrocodone Bit/Acetaminophen 1 Ea Tablet, 1 EACH PO Q4H PRN for PAIN-MODERATE Prescribed by: RIK BRADY on 10/07/18 1439 Methylprednisolone 4 Mg Tab.ds.pk, 4 MG PO UD Prescribed by: TIMI MATTSON on 01/06/19 0433 Ofloxacin 5 Ml Drops, 5 DROPS RIGHT EAR BID Prescribed by: ALBA ROSA on 11/20/18 1553 Pantoprazole Sodium 40 Mg Tablet.dr, 40 MG PO DAILY Prescribed by: RIK BRADY on 11/24/18 1708 Patient Home Medication List Home Medication List Reviewed: Yes Review of Systems Constitutional: no symptoms reported Respiratory: no symptoms reported Cardiovascular: no symptoms reported Gastrointestinal: no symptoms reported Genitourinary: no symptoms reported Musculoskeletal: see HPI, back pain Skin: no symptoms reported Psychiatric/Neurological: See HPI Past Wxtrmql-Vvplgt-Nszekj Hx Patient Social History Alcohol Use: Denies Use Recreational Drug Use: Yes (EXTENSIVE POLYSUBSTANCE ABUSE AND OVERDOSES, ESPECIALLY XANAX/BENZODIAZEPINES AND NARCOTICS; ALSO TESTED + FOR METHAMPHETAMINES) Drug of Choice: XANAX, NARCOTICS, HAS ALSO HX OF TESTING + FOR METHAMPHETAMIES Smoking Status: Current Everyday Smoker (2-3 PPD) Type Used: Cigarettes (2-3 PPD) 2nd Hand Smoke Exposure: Yes Recent Foreign Travel: No Contact w/Someone Who Travel: No Recent Infectious Disease Expo: No Recent Hopitalizations: No Immunizations Up To Date Tetanus Booster (TDap): Less than 5yrs PED Vaccines UTD: No Date of Pneumonia Vaccine: May 26, 2017 Date of Influenza Vaccine: May 24, 2018 Seasonal Allergies Seasonal Allergies: No Past Medical History Surgeries: Yes (LUMBAR SPINE SURGERY X 2; CERVICAL SPINE SURGERY X 3; RIGHT ROTATOR CUFF REPAIR;BILATERAL CARPAL TUNNEL REPAIR; MULTIPLE EGD'S/DILATIONS AND REMOVAL OF FOOD BOLUSES; SKIN CANCER REMOVALS-LIP/EAR; BMT'S; CARDIAC CATHS- NO INTERVENTION--LAST ONE 06/29/17) Appendectomy, Ear Surgery, Gallbladder, Orthopedic Respiratory: Yes (PER OLD RECORDS, PT HAS COPD, BUT PT DENIES) Chronic Bronchitis, COPD, Emphysema Cardiac: Yes (MINIMAL, NON-OCCLUSIVE SMALL VESSEL DISEASE, EF 50% PER CATH 06/29/17) Coronary Artery Disease, High Cholesterol, Hypertension Neurological: Yes (RESTLESS LEG SYNDROME) Reproductive Disorders: No Sexually Transmitted Disease: No HIV/AIDS: No Genitourinary: No Gastrointestinal: Yes (CHRONIC DYSPHAGIA AND HOARSENESS; ESOPHAGEAL STRICTURE; MULTIPLE EGD'S / DILATIONS WITH REMOVAL OF FOOD BOLUSES) Gastroesophageal Reflux Musculoskeletal: Yes (CHRONIC NECK AND BACK PAIN ; C2-C6 CERVICAL SPINE FUSION- X 3 SURGERIES; LUMBAR SPINE SURGERY X 2; RIGHT ROTATOR CUFF REPAIR; BILATERAL CARPAL TUNNEL REPAIR) Degenerate Disk Disease, Chronic Back Pain Endocrine: No HEENT: Yes (POOR DENTITION; BMT'S ) Chronic Ear Infection Hearing Impairment: Hard of Hearing Cancer: Yes Skin Did You Recieve Any Treatments: Yes What Type of Treatment Did You: Surgical Intervention Psychosocial: Yes (EXTENSIVE POLYSUBSTANCE ABUSE/OVERDOSES--RIKKI. BENZODIAZEPINES/XANAX, OPIATES AND HAS TESTED + FOR METH; MULTIPLE ACCIDENTS DUE TO SUBSTANCE ABUSE; HX OF GETTING MULTIPLE RX'S FOR MULTIPLE PROVIDERS USING MULTIPLE PHARMACIES; HAS BEEN EVICTED FOR MULTIPLE REHAB TREATMENT FACILITIES, INCLUDING [facility]; DUE TO EXTREME NON-COMPLIANCE. ) Anxiety, Suicide Attempts, Depression Integumentary: No Blood Disorders: No Adverse Reaction/Blood Tranf: No (N/A) Family Medical History Cancer 03 FATHER (PROSTATE) 03 MOTHER (BREAST CA ) 09 BROTHER (THROAT/PANCREATIC) 09 SISTER (LIVER) DEAFNESS 03 FATHER 09 BROTHER Family history: Breast disease 03 MOTHER (BREAST CA) History of - respiratory disease Prostate cancer 03 FATHER Stroke 03 MOTHER Visual impairment Cancer Physical Exam Vital Signs Vital Signs - First Documented 01/06/19 04:21 Temp 98.0 Pulse 75 Resp 18 B/P (MAP) 164/91 (115) Pulse Ox 100 O2 Delivery Room Air Capillary Refill : Less Than 3 Seconds Height, Weight, BMI Height: 5'6.00" Weight: 135lbs. 0.0oz. 61.746175hk; 21.8 BMI Method:Stated General Appearance: No Apparent Distress, WD/WN, Other (REEKS OF CIGARETTES; DIRTY, UNKEMPT. AMBULATES WITHOUT DIFFICULTY. DOES NOT APPEAR TO BE IN ANY DISCOMFORT. 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 Norm as Tested, Other (DTR'S INTACT BILATERALLY) Skin: Normal Color, Warm/Dry; No Rash Progress/Results/Core Measures Results/Orders My Orders Orders - TIMI MATTSON DO Methylprednisolone Sod Succ (Solu-Medrol (01/06/19 04:30) Vital Signs/I&O 01/06/19 04:21 Temp 98.0 Pulse 75 Resp 18 B/P (MAP) 164/91 (115) Pulse Ox 100 O2 Delivery Room Air Blood Pressure Mean: 115 Progress Progress Note : Progress Note PT REFUSES TO GIVE URINE SAMPLE PT WALKS UPRIGHT AND MOVES WITHOUT DIFFICULTY, DOES NOT APPEAR TO BE IN ANY DISCOMFORT Departure Impression Primary Impression: Acute exacerbation of chronic low back pain Disposition: HOME, SELF-CARE Condition: Stable Departure-Patient Inst. Referrals: NO,LOCAL PHYSICIAN (PCP/Family) Primary Care Physician Patient Instructions: MANAGING YOUR CHRONIC PAIN, Low Back Pain (DC) Add. Discharge Instructions: ESTABLISH WITH LOCAL DR FOR ONGOING CARE OF CHRONIC PROBLEMS--CALL TODAY TO MAKE APPOINTMENT--LIST PROVIDED All discharge instructions reviewed with patient and/or family. Voiced understanding. Scripts Cyclobenzaprine HCl (Cyclobenzaprine HCl) 10 Mg Tablet 10 MG PO Q8H, #15 TAB Prov: TIMI MATTSON DO 01/06/19 Methylprednisolone (Medrol) 4 Mg Tab.ds.pk 4 MG PO UD, #1 PKG Prov: TIMI MATTSON DO 01/06/19 TIMI MATTSON DO January 06, 2019 04:33
[2019-01-06 04:40] VITALS: BP 164/91
== END 2019-01-06 04:41 | disposition home or self-care (01) ==
LOC: EDUNIT# 04:12 → ER 04:14
DX: M54.5 Low back pain (principal); G89.29 Other chronic pain; G56.03 Carpal tunnel syndrome, bilateral upper limbs; J43.9 Emphysema, unspecified; I25.10 Atherosclerotic heart disease of native coronary artery without angina pectoris; E78.00 Pure hypercholesterolemia, unspecified; I10 Essential (primary) hypertension; F41.9 Anxiety disorder, unspecified; F32.9 Major depressive disorder, single episode, unspecified; G25.81 Restless legs syndrome; K21.9 Gastro-esophageal reflux disease without esophagitis; F19.10 Other psychoactive substance abuse, uncomplicated; F15.10 Other stimulant abuse, uncomplicated; F17.210 Nicotine dependence, cigarettes, uncomplicated; Z80.42 Family history of malignant neoplasm of prostate; Z98.890 Other specified postprocedural states; Z80.3 Family history of malignant neoplasm of breast; Z80.0 Family history of malignant neoplasm of digestive organs; Z91.5 Personal history of self-harm; Z98.1 Arthrodesis status; Z87.19 Personal history of other diseases of the digestive system; Z85.828 Personal history of other malignant neoplasm of skin; Z95.9 Presence of cardiac and vascular implant and graft, unspecified; Z91.19 Patient's noncompliance with other medical treatment and regimen; Z88.6 Allergy status to analgesic agent; Z88.8 Allergy status to other drugs, medicaments and biological substances; Z79.82 Long term (current) use of aspirin; Z79.52 Long term (current) use of systemic steroids
CPT/HCPCS: 96372; 99284

== ENCOUNTER 2019-03-26 12:37 | Day surgery (SDC) | payer MEDICARE ==
[~2019-03-26] VITALS: Ht 167.6 cm; Wt 61.3 kg
--- NOTE | 2019-03-26 12:42 | NUR ---
. pt here by self alert gcs 15. pt does say other people here with him. not in room currently. 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 pt relates he ate steak 2 days ago and since then when he drinks " it comes back up". pt has h/o same. no sridor or wheezes noted. pt speaks full sentences. no cyanosis or duskiness noted. no rhonchi in bronchi noted. pt c/o throat pain and dyspnea and no acute sighns of dyspnea noted. pt denies chest and abd pain. lungs equal cta bilaterally. abd soft nondistended neg pain with palpation. pt also wants right wrist ? wound looked at for " precancerous" done ilir pt at 1248.
--- OUTSIDE RECORDS SUMMARY | 2019-03-26 12:42 | XMS REPORT ---
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 05441128 Problem Bilateral hearing loss, unspecified hearing loss type H91.93 Active 95723370 ALLERGIES No Information ENCOUNTERS Encounter Location Date Diagnosis [facility] [address] [address] Nov, Left anterior shoulder pain M25.512 [place] [address] [address] Aug, Degenerative disc disease, lumbar M51.36 ; Blurry vision, bilateral H53.8 ; Bilateral hearing loss, unspecified hearing loss type H91.93 and Essential hypertension I10 [facility] [address] [address] Jul, [facility] [address] [address] Jul, [facility] [address] [address] Jun, [facility] [address] [address] Jun, Other chronic pain G89.29 [facility] [address] [address] Jun, [facility] [address] [address] May, 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 [facility] [address] [place] [id number] [place] [address] May, Personal history of nicotine dependence Z87.891 ; Nicotine dependence, uncomplicated, unspecified nicotine product type F17.200 ; Chest pain in adult R07.9 ; Other chronic pain G89.29 ; Encounter for immunization Z23 and Chronic dermatitis L30.9 [facility] [address] [address] May, [facility] [address] [address] Apr, Other eczema L30.8 [place] [address] [address] Aug, Low back pain M54.5 ; Other chronic pain G89.29 and Lumbosacral radiculopathy M54.17 [facility] [address] [address] Jul, Acute left-sided low back pain without sciatica M54.5 and Drug-seeking behavior Z76.5 [facility] [address] [address] Jul, Urinary retention R33.9 [place] [address] [address] Mar, [place] [address] [address] Nov, [facility] [address] [address] Nov, [place] [address] [address] December, [facility] [address] [address] December, [facility] [address] [place] [address] [place] [address] Nov, [facility] [place] [facility] [address] [id number] [place] [address] Nov, [facility] [place] [facility] [address] [id number] [place] [address] Nov, [facility] [place] [facility] [address] [id number] [place] [address] Nov, [facility] [place] [facility] [address] [id number] [place] [address] Nov, [facility] [place] [facility] [address] [id number] [place] [address] Nov, [facility] [place] [facility] [address] [id number] [place] [address] Nov, [facility] [place] [facility] [address] [id number] [place] [address] Nov, [facility] [place] [facility] [address] [id number] [place] [address] Nov, [facility] [place] [facility] [address] [id number] [place] [address] Nov, [facility] [place] [facility] [address] [id number] [place] [address] Oct, [facility] [place] [facility] [address] [id number] [place] [address] Oct, [facility] [place] [facility] [address] [id number] [place] [address] Sep, [facility] [place] [facility] [address] [id number] [place] [address] Sep, [facility] [place] [facility] [address] [id number] [place] [address] Jul, [facility] [place] [facility] [address] [id number] [place] [address] Jul, [facility] [address] [facility] [id number] [place] [address] Jul, [facility] [address] [facility] [id number] [place] [address] Jul, [facility] [address] [facility] [id number] [place] [address] Jan, [facility] [address] [facility] [id number] [place] [address] Nov, IMMUNIZATIONS No Known Immunizations SOCIAL HISTORY Never Assessed REASON FOR VISIT EMR-[facility] PLAN OF CARE VITAL SIGNS MEDICATIONS No [...] 1999 Hospitalization History Surgery(s) Hospitalization History stomach 2003 Hospitalization History [facility] ED- CP/SOB 07/12/2017 Hospitalization History [facility] ED- CP 07/25/2017 Hospitalization History [facility] ED- Chest Pain 08/01/2017 Hospitalization History [facility] ED- Chest Pain 08/02/2017 Hospitalization History [facility] ED- Lower Back Pain 08/07/2017 Hospitalization History [facility] ED- Back pain from fall 08/29/2017 Hospitalization History [facility] ED- Chest Pain 09/02/2017 Hospitalization History [facility] ED- Lower back pain 11/30/2017 Hospitalization History [facility] ED- Lower back pain 02/27/2018
--- OUTSIDE RECORDS SUMMARY | 2019-03-26 12:42 | XMS REPORT | Clinical Summary ---
Author Author [facility] Organization [facility] Address Unknown Phone Unavailable Care Team Providers Care Category Planner Name Role Phone Unverified, Unverified Md PCP Unavailable Source Comments Some departments are not documenting in the electronic medical record. If you d o not see the information that you expected, contact Release of Information in [facility] Information Management department at [phone] for further assistan ce in locating additional records.[facility] Allergies Not on File Medications Not [...] 2005 VACCINE (1 of 2) INFLUENZA VACCINE 05/17/2019 Results Not on filefrom Last 3 Months
--- OUTSIDE RECORDS SUMMARY | 2019-03-26 12:52 | XMS REPORT | Continuity of Care Document ---
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 DISEASES OF TH 08/18/2018 ALBA ROSA APRN Ot Z88.6 ALLERGY STATUS TO ANALGESIC AGENT STATUS 08/18/2018 ALBA ROSA APRN Ot Z90.49 ACQUIRED ABSENCE OF OTHER SPECIFIED PART 08/18/2018 ALBA ROSA APRN Ot Z91.5 PERSONAL HISTORY OF SELF-HARM 08/18/2018 [...] MD, Ot I25.10 ATHSCL HEART DISEASE OF [place] CORONARY 08/19/2018 RIK BRADY MD, Ot J44.9 CHRONIC OBSTRUCTIVE PULMONARY DISEASE, U 08/19/2018 RIK BRADY MD, Ot K21.0 GASTRO-ESOPHAGEAL REFLUX DISEASE WITH ES 08/19/2018 RIK BRADY MD, Ot K22.2 ESOPHAGEAL OBSTRUCTION 08/19/2018 RIK BRADY MD, Ot K29.70 GASTRITIS, UNSPECIFIED, WITHOUT BLEEDING 08/19/2018 RIK BRADY MD, Ot T18.198A OT FOREIGN OBJECT IN ESOPHAGUS CAUSING 08/19/2018 RIK BRADY MD, Ot Z79.899 OTHER DETENTION (CURRENT) DRUG THERAPY 08/19/2018 RIK BRADY MD, [...] MD, Ot I25.10 ATHSCL HEART DISEASE OF [place] CORONARY 08/22/2018 RIK BRADY MD, Ot J44.9 CHRONIC OBSTRUCTIVE PULMONARY DISEASE, U 08/22/2018 RIK BRADY MD, Ot K21.0 GASTRO-ESOPHAGEAL REFLUX DISEASE WITH ES 08/22/2018 RIK BRADY MD, Ot K22.2 ESOPHAGEAL OBSTRUCTION 08/22/2018 RIK BRADY MD, Ot K29.70 GASTRITIS, UNSPECIFIED, WITHOUT BLEEDING 08/22/2018 RIK BRADY MD, Ot T18.198A OTH FOREIGN OBJECT IN ESOPHAGUS CAUSING 08/22/2018 RIK BRADY MD, Ot Z79.899 OTHER DETENTION (CURRENT) DRUG THERAPY 08/22/2018 RIK BRADY MD, Ot Z80.0 FAMILY HISTORY OF MALIGNANT NEOPLASM OF 08/22/2018 RIK BRADY MD, Ot Z80.3 FAMILY HISTORY OF MALIGNANT NEOPLASM OF 08/22/2018 RIK BRADY MD, Ot Z80.42 FAMILY HISTORY OF MALIGNANT NEOPLASM OF 08/22/2018 RIK BRADY MD, Ot Z85.828 PERSONAL HISTORY OF OTHER MALIGNANT NEOP 08/22/2018 RIK BRADY MD, Ot Z91.19 [facility] 10/03/2018 DONTA MALONEY Ot C44.202 [...] MALONEY Ot I25.10 ATHSCL HEART DISEASE OF [place] CORONARY 10/03/2018 DONTA MALONEY Ot J43.9 EMPHYSEMA, UNSPECIFIED 10/03/2018 DONTA MALONEY Ot K21.9 GASTRO- ESOPHAGEAL REFLUX DISEASE WITHOUT 10/03/2018 DONTA MALONEY Ot [...] 726.13 PARTIAL TEAR OF ROTATOR CUFF 10/03/2018 KACEY BURCH MD Ot V45.4 ARTHRODESIS STATUS 10/03/2018 KACEY BURCH MD Ot V67.09 SURGERY FOLLOW-UP, OTHER SURGERY 10/03/2018 KACEY BURCH MD Ot 724.02 SPINAL STENOSIS, LUMBAR REG, W/OUT NEURO 10/03/2018 ARNOLD GOFF MD Ot 724.2 LUMBAGO 10/03/2018 ARNOLD GOFF MD Ot 737.30 IDIOPATHIC SCOLIOSIS 10/03/2018 KACEY BURCH MD Ot M48.07 SPINAL STENOSIS, LUMBOSACRAL REGION 10/03/2018 BRADLEY NAYAK, CARYN Grijalva Ot R33.9 RETENTION OF URINE, UNSPECIFIED 10/03/2018 ARIADNA DYER MD Ot R07.9 CHEST PAIN, UNSPECIFIED 10/03/2018 ARIADNA DYER MD Ot F17.210 NICOTINE DEPENDENCE, CIGARETTES, UNCOMPL 10/03/2018 ARIADNA DYER MD Ot J43.9 EMPHYSEMA, UNSPECIFIED 10/03/2018 ARIADNA DYER MD Ot R93.7 ABNORMAL FINDINGS ON DIAGNOSTIC IMAGING 10/03/2018 ARIADNA DYER MD Ot Z12.2 ENCNTR SCREEN FOR MALIGNANT NEOPLASM OF 10/03/2018 MORALES DO, FLORECITA D Ot E78.00 PURE HYPERCHOLESTEROLEMIA, UNSPECIFIED 10/03/2018 MORALES DOFLORECITA D Ot F17.210 NICOTINE DEPENDENCE, CIGARETTES, UNCOMPL 10/03/2018 MORALES DOMARY CARMENTT D Ot G25.81 RESTLESS LEGS SYNDROME 10/03/2018 MORALES DO FLORECITA D Ot I10 ESSENTIAL (PRIMARY) HYPERTENSION 10/03/2018 MORALES DO FLORECITA D Ot I25.10 ATHSCL HEART DISEASE OF [place] CORONARY 10/03/2018 MORALES DOMARY CARMENTT D Ot J43.9 EMPHYSEMA, UNSPECIFIED 10/03/2018 MORALES DO FLORECITA D Ot K21.9 GASTRO-ESOPHAGEAL REFLUX DISEASE WITHOUT 10/03/2018 MORALES DO, FLORECITA D Ot T18.108A UNSP [...] MALONEY Ot I25.10 ATHSCL HEART DISEASE OF [place] CORONARY 10/05/2018 DONTA MALONEY Ot J43.9 EMPHYSEMA, UNSPECIFIED 10/05/2018 DONTA MALONEY Ot K21.9 GASTRO- ESOPHAGEAL REFLUX DISEASE WITHOUT 10/05/2018 DONTA MALONEY Ot [...] Z01.818 ENCOUNTER FOR OTHER PREPROCEDURAL EXAMIN 10/07/2018 JOÃO KEY, KRISTINA M Ot 338.29 OTHER CHRONIC PAIN 10/07/2018 KRISTINA SERRATO Ot 719.41 JOINT PAIN-SHLDER 10/07/2018 KRISTINA SERRATO Ot 723.1 CERVICALGIA 10/07/2018 KRISTINA SERRATO Ot 726.10 BURSAE TENDONS DIS SHLDER NOS 10/07/2018 KRISTINA SERRATO M Ot 726.13 PARTIAL TEAR [...] DYER MD Ot J43.9 EMPHYSEMA, UNSPECIFIED 10/07/2018 ARIADNA DYER MD Ot R93.7 ABNORMAL FINDINGS ON DIAGNOSTIC IMAGING 10/07/2018 GOMEZ NAYAK, ARIADNA Epperson Ot Z12.2 ENCNTR SCREEN FOR MALIGNANT NEOPLASM OF 10/07/2018 MORALES FLORECITA D Ot E78.00 PURE HYPERCHOLESTEROLEMIA, UNSPECIFIED 10/07/2018 [facility] FLORECITA D Ot F17.210 NICOTINE DEPENDENCE, CIGARETTES, UNCOMPL 10/07/2018 MORALES FLORECITA D Ot G25.81 RESTLESS LEGS SYNDROME 10/07/2018 MORALES FLORECITA Ot I10 ESSENTIAL (PRIMARY) HYPERTENSION 10/07/2018 [facility] FLORECITA D Ot I25.10 ATHSCL HEART DISEASE OF [place] CORONARY 10/07/2018 [facility] J43.9 EMPHYSEMA, UNSPECIFIED 10/07/2018 [facility] Ot K21.9 GASTRO-ESOPHAGEAL REFLUX DISEASE WITHOUT 10/07/2018 [facility] FLORECITA Ot T18.108A UNSP FOREIGN BODY IN ESOPHAGUS CAUSING O 10/07/2018 RIK BRADY MD, Ot K21.9 GASTRO-ESOPHAGEAL REFLUX DISEASE WITHOUT 10/07/2018 RIK BRADY MD Ot L57.0 ACTINIC KERATOSIS 10/07/2018 RIK BRADY MD Ot Z87.891 PERSONAL HISTORY OF NICOTINE DEPENDENCE 10/12/2018 RIK BRADY MD, Ot K21.9 GASTRO-ESOPHAGEAL REFLUX DISEASE WITHOUT 10/12/2018 RIK BRADY MD Ot L57.0 ACTINIC KERATOSIS 10/12/2018 RIK BRADY MD, Ot Z87.891 PERSONAL HISTORY OF NICOTINE DEPENDENCE 10/12/2018 RIK BRADY MD, Ot K21.9 GASTRO-ESOPHAGEAL REFLUX DISEASE WITHOUT 10/12/2018 RIK BRADY MD Ot L57.0 ACTINIC KERATOSIS 10/12/2018 RIK BRADY MD, Ot Z87.891 PERSONAL HISTORY OF NICOTINE DEPENDENCE 11/20/2018 ALBA ROSA APRN Ot E78.00 PURE HYPERCHOLESTEROLEMIA, UNSPECIFIED 11/20/2018 ALBA ROSA APRN Ot F32.9 MAJOR DEPRESSIVE DISORDER, SINGLE EPISOD 11/20/2018 ALBA ROSA APRN Ot F41.9 ANXIETY DISORDER, UNSPECIFIED 11/20/2018 ALBA ROSA APRN Ot G25.81 RESTLESS LEGS SYNDROME 11/20/2018 ALBA ROSA APRN Ot H60.91 UNSPECIFIED OTITIS EXTERNA, RIGHT EAR 11/20/2018 ALBA ROSA APRN Ot I10 ESSENTIAL (PRIMARY) HYPERTENSION 11/20/2018 ALBA ROSA APRN Ot I25.10 ATHSCL HEART DISEASE OF [place] CORONARY 11/20/2018 ALBA ROSA APRN Ot J43.9 EMPHYSEMA, UNSPECIFIED 11/20/2018 ALBA ROSA APRN Ot K21.9 GASTRO-ESOPHAGEAL REFLUX DISEASE WITHOUT 11/20/2018 ALBA ROSA APRN Ot M25.512 PAIN IN LEFT SHOULDER 11/20/2018 ALBA ROSA APRN Ot X58.XXXA EXPOSURE TO OTHER SPECIFIED FACTORS, INI 11/20/2018 ALBA ROSA APRN Ot Z77.22 CNTCT W AND EXPSR TO ENVIRON TOBACCO SMO 11/20/2018 ALBA ROSA APRN Ot Z79.82 DETENTION (CURRENT) USE OF ASPIRIN 11/20/2018 ALBA ROSA APRN Ot Z80.0 FAMILY HISTORY OF MALIGNANT NEOPLASM OF 11/20/2018 ALBA ROSA APRN Ot Z80.3 FAMILY HISTORY OF MALIGNANT NEOPLASM OF 11/20/2018 ALBA ROSA APRN Ot Z80.42 FAMILY HISTORY OF MALIGNANT NEOPLASM OF 11/20/2018 ALBA ROSA APRN Ot Z82.49 FAMILY HX OF ISCHEM HEART DIS AND OTH DI 11/20/2018 ALBA ROSA APRN Ot Z85.828 PERSONAL HISTORY OF OTHER MALIGNANT NEOP 11/20/2018 ALBA ROSA APRN Ot Z88.6 ALLERGY STATUS TO ANALGESIC AGENT STATUS 11/20/2018 ALBA ROSA APRN Ot Z90.49 ACQUIRED ABSENCE OF OTHER SPECIFIED PART 11/20/2018 ALBA ROSA APRN Ot Z91.5 PERSONAL HISTORY OF SELF-HARM 11/20/2018 ALBA ROSA APRN Ot Z98.890 OTHER SPECIFIED POSTPROCEDURAL STATES 11/23/2018 ALBA ROSA APRN Ot E78.00 PURE [...] APRN Ot I25.10 ATHSCL HEART DISEASE OF [place] CORONARY 11/23/2018 ALBA ROSA APRN Ot J43.9 EMPHYSEMA, UNSPECIFIED 11/23/2018 ALBA ROSA APRN Ot K21.9 GASTRO-ESOPHAGEAL REFLUX DISEASE WITHOUT 11/23/2018 ALBA ROSA APRN Ot M25.512 PAIN IN LEFT SHOULDER 11/23/2018 ALBA ROSA APRN Ot X58.XXXA EXPOSURE TO OTHER SPECIFIED FACTORS, INI 11/23/2018 ALBA ROSA APRN Ot Z77.22 CNTCT W AND EXPSR TO ENVIRON TOBACCO SMO 11/23/2018 ALBA ROSA APRN Ot Z79.82 RIFFLER TENDER (CURRENT) USE OF ASPIRIN 11/23/2018 ALBA ROSA [...] APRN Ot Z98.890 OTHER SPECIFIED POSTPROCEDURAL STATES 11/25/2018 RIK BRADY MD Ot E78.00 PURE HYPERCHOLESTEROLEMIA, UNSPECIFIED 11/25/2018 RIK BRADY MD Ot F17.210 NICOTINE DEPENDENCE, CIGARETTES, UNCOMPL 11/25/2018 RIK BRADY MD, Ot F32.9 MAJOR DEPRESSIVE DISORDER, SINGLE EPISOD 11/25/2018 RIK BRADY MD, Ot F41.9 ANXIETY DISORDER, UNSPECIFIED 11/25/2018 RIK BRADY MD, Ot I10 ESSENTIAL (PRIMARY) HYPERTENSION 11/25/2018 RIK BRADY MD, Ot I25.10 ATHSCL HEART DISEASE OF [place] CORONARY 11/25/2018 RIK BRADY MD, Ot J43.9 EMPHYSEMA, UNSPECIFIED 11/25/2018 RIK BRADY MD, Ot K21.0 GASTRO-ESOPHAGEAL REFLUX DISEASE WITH ES 11/25/2018 RIK BRADY MD, Ot K22.2 ESOPHAGEAL OBSTRUCTION 11/25/2018 RIK BRADY MD, Ot K29.70 GASTRITIS, UNSPECIFIED, WITHOUT BLEEDING 11/25/2018 RIK BRADY MD, Ot T18.198A OTH FOREIGN OBJECT IN ESOPHAGUS CAUSING 11/25/2018 RIK BRADY MD, Ot Z79.899 OTHER RIFFLER TENDER (CURRENT) DRUG THERAPY 11/25/2018 RIK BRADY MD, Ot Z80.0 FAMILY HISTORY OF MALIGNANT NEOPLASM OF 11/25/2018 RIK BRADY MD, Ot Z80.3 FAMILY HISTORY OF MALIGNANT NEOPLASM OF 11/25/2018 RIK BRADY MD, Ot Z80.42 FAMILY HISTORY OF MALIGNANT NEOPLASM OF 11/25/2018 RIK BRADY MD, Ot Z85.828 PERSONAL HISTORY OF OTHER MALIGNANT NEOP 11/25/2018 RIK BRADY MD, Ot Z91.19 PATIENT'S NONCOMPLIANCE W OT MEDICAL TR 11/30/2018 RIK BRADY MD, Ot E78.00 PURE HYPERCHOLESTEROLEMIA, UNSPECIFIED 11/30/2018 RIK BRADY MD Ot F17.210 NICOTINE DEPENDENCE, CIGARETTES, UNCOMPL 11/30/2018 RIK BRADY MD, Ot F32.9 MAJOR DEPRESSIVE DISORDER, SINGLE EPISOD 11/30/2018 RIK BRADY MD, Ot F41.9 ANXIETY DISORDER, UNSPECIFIED 11/30/2018 RIK BRADY MD Ot I10 ESSENTIAL (PRIMARY) HYPERTENSION 11/30/2018 RIK BRADY MD, Ot I25.10 ATHSCL HEART DISEASE OF [place] CORONARY 11/30/2018 RIK BRADY MD, Ot J43.9 EMPHYSEMA, UNSPECIFIED 11/30/2018 RIK BRADY MD, Ot K21.0 GASTRO-ESOPHAGEAL REFLUX DISEASE WITH ES 11/30/2018 RIK BRADY MD, Ot K22.2 ESOPHAGEAL OBSTRUCTION 11/30/2018 RIK BRADY MD, Ot K29.70 GASTRITIS, UNSPECIFIED, WITHOUT BLEEDING 11/30/2018 RIK BRADY MD, Ot T18.198A OTH FOREIGN OBJECT IN ESOPHAGUS CAUSING 11/30/2018 RIK BRADY MD, Ot Z79.899 OTHER DETENTION (CURRENT) DRUG THERAPY 11/30/2018 RIK BRADY MD, Ot Z80.0 FAMILY HISTORY OF MALIGNANT NEOPLASM OF 11/30/2018 RIK BRADY MD, Ot Z80.3 FAMILY HISTORY OF MALIGNANT NEOPLASM OF 11/30/2018 RIK BRADY MD, Ot Z80.42 FAMILY HISTORY OF MALIGNANT NEOPLASM OF 11/30/2018 RIK BRADY MD, Ot Z85.828 PERSONAL HISTORY OF OTHER MALIGNANT NEOP 11/30/2018 RIK BRADY MD, Ot Z91.19 PATIENT'S NONCOMPLIANCE W OT MEDICAL TR 12/14/2018 RIK BRADY MD, Ot E78.00 PURE HYPERCHOLESTEROLEMIA, UNSPECIFIED 12/14/2018 RIK BRADY MD, Ot F17.210 NICOTINE DEPENDENCE, CIGARETTES, UNCOMPL 12/14/2018 RIK BRADY MD, Ot F32.9 MAJOR DEPRESSIVE DISORDER, SINGLE EPISOD 12/14/2018 RIK BRADY MD, Ot F41.9 ANXIETY DISORDER, UNSPECIFIED 12/14/2018 RIK BRADY MD, Ot I10 ESSENTIAL (PRIMARY) HYPERTENSION 12/14/2018 RIK BRADY MD, Ot I25.10 ATHSCL HEART DISEASE OF [place] CORONARY 12/14/2018 RIK BRADY MD, Ot J43.9 EMPHYSEMA, UNSPECIFIED 12/14/2018 RIK BRADY MD, Ot K21.0 GASTRO-ESOPHAGEAL REFLUX DISEASE WITH ES 12/14/2018 RIK BRADY MD, Ot K22.2 ESOPHAGEAL OBSTRUCTION 12/14/2018 RIK BRADY MD, Ot K29.70 GASTRITIS, UNSPECIFIED, WITHOUT BLEEDING 12/14/2018 RIK BRADY MD, Ot T18.198A OTH FOREIGN OBJECT IN ESOPHAGUS CAUSING 12/14/2018 RIK BRADY MD, Ot Z79.899 OTHER DETENTION (CURRENT) DRUG THERAPY 12/14/2018 RIK BRADY MD, Ot Z80.0 FAMILY HISTORY OF MALIGNANT NEOPLASM OF 12/14/2018 RIK BRADY MD, Ot Z80.3 FAMILY HISTORY OF MALIGNANT NEOPLASM OF 12/14/2018 RIK BRADY MD, Ot Z80.42 FAMILY HISTORY OF MALIGNANT NEOPLASM OF 12/14/2018 RIK BRADY MD, Ot Z85.828 PERSONAL HISTORY OF OTHER MALIGNANT NEOP 12/14/2018 RIK BRADY MD, Ot Z91.19 [facility]'S [facility]COMPL[facility] 01/06/2019 KRISTINA SERRATO Ot 338.29 OTHER CHRONIC PAIN 01/06/2019 KRISTINA SERRATO Ot 719.41 JOINT PAIN-SHLDER 01/06/2019 KRISTINA SERRATO Ot 723.1 CERVICALGIA 01/06/2019 KRISTINA SERRATO Ot 726.10 BURSAE TENDONS DIS SHLDER NOS 01/06/2019 KRISTINA SERRATO Ot 726.13 PARTIAL TEAR OF ROTATOR CUFF 01/06/2019 KACEY BURCH MD Ot V45.4 ARTHRODESIS STATUS 01/06/2019 KACEY BURCH MD Ot V67.09 SURGERY FOLLOW-UP, OTHER SURGERY 01/06/2019 KACEY BURCH MD Ot 724.02 SPINAL STENOSIS, LUMBAR REG, W/OUT NEURO 01/06/2019 ARNOLD GOFF MD Ot 724.2 LUMBAGO 01/06/2019 ARNOLD GOFF MD Ot 737.30 IDIOPATHIC SCOLIOSIS 01/06/2019 KACEY BURCH MD Ot M48.07 SPINAL STENOSIS, LUMBOSACRAL REGION 01/06/2019 BRADLEY NAYAK, CARYN Grijalva Ot R33.9 RETENTION OF URINE, UNSPECIFIED 01/06/2019 ARIADNA DYER MD Ot R07.9 CHEST PAIN, UNSPECIFIED 01/06/2019 RAIADNA DYER MD Ot F17.210 NICOTINE DEPENDENCE, CIGARETTES, UNCOMPL 01/06/2019 ARIADNA DYER MD, Ot J43.9 EMPHYSEMA, UNSPECIFIED 01/06/2019 ARIADNA DYER MD Ot R93.7 ABNORMAL FINDINGS ON DIAGNOSTIC IMAGING 01/06/2019 GOMEZ MD, ARIADNA A Ot Z12.2 ENCNTR SCREEN FOR MALIGNANT NEOPLASM OF 01/06/2019 MORALES DOMARY CARMENTT D Ot E78.00 PURE HYPERCHOLESTEROLEMIA, UNSPECIFIED 01/06/2019 MORALES DO FLORECITA D Ot F17.210 NICOTINE DEPENDENCE, CIGARETTES, UNCOMPL 01/06/2019 [facility] FLORECITA D Ot G25.81 RESTLESS LEGS SYNDROME 01/06/2019 MORALES DO FLORECITA D Ot I10 ESSENTIAL (PRIMARY) HYPERTENSION 01/06/2019 [facility] FLORECITA D Ot I25.10 ATHSCL HEART DISEASE OF [place] CORONARY 01/06/2019 [facility] FLORECITA D Ot J43.9 EMPHYSEMA, UNSPECIFIED 01/06/2019 [facility] FLORECITA D Ot K21.9 GASTRO-ESOPHAGEAL REFLUX DISEASE WITHOUT 01/06/2019 [facility], FLORECITA D Ot T18.108A UNSP FOREIGN BODY IN ESOPHAGUS CAUSING O 01/06/2019 RIK BRADY MD, Ot E78.00 PURE HYPERCHOLESTEROLEMIA, UNSPECIFIED 01/06/2019 RIK BRADY MD, Ot F17.210 NICOTINE DEPENDENCE, CIGARETTES, UNCOMPL 01/06/2019 RIK BRADY MD, Ot F32.9 MAJOR DEPRESSIVE DISORDER, SINGLE EPISOD 01/06/2019 RIK BRADY MD, Ot F41.9 ANXIETY DISORDER, UNSPECIFIED 01/06/2019 RIK BRADY MD Ot I10 ESSENTIAL (PRIMARY) HYPERTENSION 01/06/2019 RIK BRADY MD, Ot I25.10 ATHSCL HEART DISEASE OF [place] CORONARY 01/06/2019 RIK BRADY MD, Ot J43.9 EMPHYSEMA, UNSPECIFIED 01/06/2019 RIK BRADY MD, Ot K21.0 GASTRO-ESOPHAGEAL REFLUX DISEASE WITH ES 01/06/2019 RIK BRADY MD, Ot K22.2 ESOPHAGEAL OBSTRUCTION 01/06/2019 RIK BRADY MD, Ot K29.70 GASTRITIS, UNSPECIFIED, WITHOUT BLEEDING 01/06/2019 RIK BRADY MD, Ot T18.198A OTH FOREIGN OBJECT IN ESOPHAGUS CAUSING 01/06/2019 RIK BRADY MD, Ot Z79.899 OTHER RIFFLER TENDER (CURRENT) DRUG THERAPY 01/06/2019 RIK BRADY MD, Ot Z80.0 FAMILY HISTORY OF MALIGNANT NEOPLASM OF 01/06/2019 RIK BRADY MD, Ot Z80.3 FAMILY HISTORY OF MALIGNANT NEOPLASM OF 01/06/2019 RIK BRADY MD, Ot Z80.42 FAMILY HISTORY OF MALIGNANT NEOPLASM OF 01/06/2019 RIK BRADY MD, Ot Z85.828 PERSONAL HISTORY OF OTHER MALIGNANT NEOP 01/06/2019 RIK BRADY MD, Ot Z91.19 PATIENT'S NONCOMPLIANCE W OT MEDICAL TR 01/06/2019 TIMI MATTSON DO Ot E78.00 PURE HYPERCHOLESTEROLEMIA, UNSPECIFIED 01/06/2019 TIMI MATTSON DO Ot F15.10 OTHER STIMULANT ABUSE, UNCOMPLICATED 01/06/2019 TIMI MATTSON DO Ot F17.210 NICOTINE DEPENDENCE, CIGARETTES, UNCOMPL 01/06/2019 TIMI MATTSON DO Ot F19.10 OTHER PSYCHOACTIVE SUBSTANCE ABUSE, UNCO 01/06/2019 TIMI MATTSON DO Ot F32.9 MAJOR DEPRESSIVE DISORDER, SINGLE EPISOD 01/06/2019 TIMI MATTSON DO Ot F41.9 ANXIETY DISORDER, UNSPECIFIED 01/06/2019 TIMI MATTSON DO Ot G25.81 RESTLESS LEGS SYNDROME 01/06/2019 TIMI MATTSON DO Ot G56.03 CARPAL TUNNEL SYNDROME, BILATERAL UPPER 01/06/2019 TIMI MATTSON DO Ot G89.29 OTHER CHRONIC PAIN 01/06/2019 TIMI MATTSON DO Ot I10 ESSENTIAL (PRIMARY) HYPERTENSION 01/06/2019 TIMI MATTSON DO Ot I25.10 ATHSCL HEART DISEASE OF [place] CORONARY 01/06/2019 TIMI MATTSON DO Ot J43.9 EMPHYSEMA, UNSPECIFIED 01/06/2019 TIMI MATTSON DO Ot K21.9 GASTRO-ESOPHAGEAL REFLUX DISEASE WITHOUT 01/06/2019 TIMI MATTSON DO Ot M54.5 LOW BACK PAIN 01/06/2019 TIMI MATTSON DO Ot Z79.52 RIFFLER TENDER (CURRENT) USE OF SYSTEMIC STER 01/06/2019 TIMI MATTSON DO Ot Z79.82 DETENTION (CURRENT) USE OF ASPIRIN 01/06/2019 TIMI MATTSON DO Ot Z80.0 FAMILY HISTORY OF MALIGNANT NEOPLASM OF 01/06/2019 TIMI MATTSON DO Ot Z80.3 FAMILY HISTORY OF MALIGNANT NEOPLASM OF 01/06/2019 SRINIVASAN TOPETE TIMI Yash Ot Z80.42 FAMILY HISTORY OF MALIGNANT NEOPLASM OF 01/06/2019 TIMI MATTSON DO Ot Z85.828 PERSONAL HISTORY OF OTHER MALIGNANT NEOP 01/06/2019 TIMI MATTSON DO Ot Z87.19 PERSONAL HISTORY OF OTHER DISEASES OF TH 01/06/2019 SRINIVASAN TIMI TOPETE Ot Z88.6 ALLERGY STATUS TO ANALGESIC AGENT STATUS 01/06/2019 TIMI AMTTSON DO Ot Z88.8 ALLERGY STATUS TO OTH DRUG/MEDS/BIOL SUB 01/06/2019 TIMI MATTSON DO Ot Z91.19 PATIENT'S NONCOMPLIANCE W OT MEDICAL TR 01/06/2019 TIMI MATTSON DO Ot Z91.5 PERSONAL HISTORY OF SELF-HARM 01/06/2019 TIMI MATTSON DO Ot Z95.9 PRESENCE OF CARDIAC AND VASCULAR IMPLANT 01/06/2019 TIMI MATTSON DO Ot Z98.1 ARTHRODESIS STATUS 01/06/2019 TIMI MATTSON DO Ot Z98.890 OTHER SPECIFIED POSTPROCEDURAL STATES 01/12/2019 TIMI MATTSON DO Ot E78.00 PURE HYPERCHOLESTEROLEMIA, UNSPECIFIED 01/12/2019 TIMI MATTSON DO Ot F15.10 OTHER STIMULANT ABUSE, UNCOMPLICATED 01/12/2019 TIMI MATTSON DO Ot F17.210 NICOTINE DEPENDENCE, CIGARETTES, UNCOMPL 01/12/2019 TIMI MATTSON DO Ot F19.10 OTHER PSYCHOACTIVE SUBSTANCE ABUSE, UNCO 01/12/2019 TIMI MATTSON DO Ot F32.9 MAJOR DEPRESSIVE DISORDER, SINGLE EPISOD 01/12/2019 TIMI MATTSON DO Ot F41.9 ANXIETY DISORDER, UNSPECIFIED 01/12/2019 TIMI MATTSON DO Ot G25.81 RESTLESS LEGS SYNDROME 01/12/2019 TIMI MATTSON DO Ot G56.03 CARPAL TUNNEL SYNDROME, BILATERAL UPPER 01/12/2019 TIMI MATTSON DO Ot G89.29 OTHER CHRONIC PAIN 01/12/2019 TIMI MATTSON DO Ot I10 ESSENTIAL (PRIMARY) HYPERTENSION 01/12/2019 TIMI MATTSON DO Ot I25.10 ATHSCL HEART DISEASE OF [place] CORONARY 01/12/2019 SRINIVASAN TOPETE TIMI K Ot J43.9 EMPHYSEMA, UNSPECIFIED 01/12/2019 SRINIVASAN TOPETE TIMI K Ot K21.9 GASTRO-ESOPHAGEAL REFLUX DISEASE WITHOUT 01/12/2019 SRINIVASAN TOPETE TIMI Yash Ot M54.5 LOW BACK PAIN 01/12/2019 SRINIVASAN TOPETETIMI Ot Z79.52 DETENTION (CURRENT) USE OF SYSTEMIC STER 01/12/2019 SRINIVASAN TOPETETIMI Ot Z79.82 RIFFLER TENDER (CURRENT) USE OF ASPIRIN 01/12/2019 SRINIVASAN TIMI K Ot Z80.0 FAMILY HISTORY OF MALIGNANT NEOPLASM OF 01/12/2019 SRINIVASAN TOPETETIMI Ot Z80.3 FAMILY HISTORY OF MALIGNANT NEOPLASM OF 01/12/2019 SRINIVASAN TOPETE TIMI Yash Chanel Z80.42 FAMILY HISTORY OF MALIGNANT NEOPLASM OF 01/12/2019 SRINIVASAN TOPETETIMI Ot Z85.828 PERSONAL HISTORY OF OTHER MALIGNANT NEOP 01/12/2019 SRINIVASAN TOPETETIMI Ot Z87.19 PERSONAL HISTORY OF OTHER DISEASES OF 01/12/2019 SRINIVASAN TOPETETIMI Ot Z88.6 ALLERGY STATUS TO ANALGESIC AGENT STATUS 01/12/2019 SRINIVASAN TOPETETIMI Ot Z88.8 ALLERGY STATUS TO OT DRUG/MEDS/BIOL SUB 01/12/2019 SRINIVASAN TOPETETIMI Ot Z91.19 PATIENT'S NONCOMPLIANCE W OT MEDICAL TR 01/12/2019 SRINIVASAN TOPETETIMI Ot Z91.5 PERSONAL HISTORY OF SELF-HARM 01/12/2019 SRINIVASAN DOTIMI Ot Z95.9 PRESENCE OF CARDIAC AND VASCULAR IMPLANT 01/12/2019 SRINIVASAN DOTIMI Ot Z98.1 ARTHRODESIS STATUS 01/12/2019 SRINIVASAN DOTIMI Ot Z98.890 OTHER SPECIFIED POSTPROCEDURAL STATES 02/08/2019 RIK BRADY MD, Ot E78.00 PURE HYPERCHOLESTEROLEMIA, UNSPECIFIED 02/08/2019 RIK BRADY MD, Ot F17.210 NICOTINE DEPENDENCE, CIGARETTES, UNCOMPL 02/08/2019 RIK BRADY MD, Ot F32.9 MAJOR DEPRESSIVE DISORDER, SINGLE EPISOD 02/08/2019 RIK BRADY MD, Ot F41.9 ANXIETY DISORDER, UNSPECIFIED 02/08/2019 RIK BRADY MD, Ot I10 ESSENTIAL (PRIMARY) HYPERTENSION 02/08/2019 RIK BRADY MD, Ot I25.10 ATHSCL HEART DISEASE OF [place] CORONARY 02/08/2019 RIK BRADY MD, Ot J43.9 EMPHYSEMA, UNSPECIFIED 02/08/2019 RIK BRADY MD, Ot K21.0 GASTRO-ESOPHAGEAL REFLUX DISEASE WITH ES 02/08/2019 RIK BRADY MD, Ot K22.2 ESOPHAGEAL OBSTRUCTION 02/08/2019 RIK BRADY MD, Ot K29.70 GASTRITIS, UNSPECIFIED, WITHOUT BLEEDING 02/08/2019 RIK BRADY MD, Ot T18.198A OTH FOREIGN OBJECT IN ESOPHAGUS CAUSING 02/08/2019 RIK BRADY MD, Ot Z79.899 OTHER DETENTION (CURRENT) DRUG THERAPY 02/08/2019 RIK BRADY MD, Ot Z80.0 FAMILY HISTORY OF MALIGNANT NEOPLASM OF 02/08/2019 RIK BRADY MD, Ot Z80.3 FAMILY HISTORY OF MALIGNANT NEOPLASM OF 02/08/2019 RIK BRADY MD, Ot Z80.42 FAMILY HISTORY OF MALIGNANT NEOPLASM OF 02/08/2019 RIK BRADY MD, Ot Z85.828 PERSONAL HISTORY OF OTHER MALIGNANT NEOP 02/08/2019 RIK BRADY MD, Ot Z91.19 PAT[facility]'S [facility]COMPLIANCE [facility] Procedures Code Description Performed By Performed On 45.16 ESOPHAGOGASTRODUODENOSCOPY [EGD] W/CLOSE 09/25/2009 48949 MRI EXTREMITY JOINT, UPPER RIGHT, W/O CONTRAST 11/21/2013 [employer] SCREEN 11/21/2013 71020 MRI EXTREMITY JOINT, UPPER RIGHT W & W/O CONTRAST 12/07/2013 [id number] [employer] DRUG SCREEN 12/09/2013 Results Test Result [...] Automated erythrocyte mean corpuscular hemoglobin concentration measurement (mass/volume) 33 g/dL 32-36 Automated erythrocyte distribution width ratio 13.5 % 10.0- 14.5 Automated blood platelet count (count/volume) 230 10*3/uL [...] Blood monocytes automated count (number/volume) 0.5 10*3 0.0- 1.0 Automated eosinophil count 0.0 10*3/uL 0.0-0.3 Automated [...] Serum or plasma aspartate aminotransferase measurement (enzymatic activity/volume) 18 U/L 5-34 Serum or plasma alanine aminotransferase measurement (enzymatic activity/volume) 14 U/L 0-55 Serum or plasma protein [...] gravity of urine by test strip 1.020 1.016-1.022 Urine protein assay by test strip, semi-quantitative [...] sediment leukocyte count by microscopy (number/high power field) RARE NRG Bacteria detection in urine sediment [...] rickettsii IgG antibody assay (units/volume) < <1:16 [place] spotted fever panel < <1:10 Francisella tularensis [...] Automated erythrocyte mean corpuscular hemoglobin concentration measurement (mass/volume) 33 g/dL 32-36 Automated erythrocyte distribution width ratio 13.6 % 10.0- 14.5 Automated blood platelet count (count/volume) 210 10*3/uL [...] Blood monocytes automated count (number/volume) 0.7 10*3 0.0- 1.0 Automated eosinophil count 0.1 10*3/uL 0.0-0.3 Automated [...] Serum or plasma aspartate aminotransferase measurement (enzymatic activity/volume) 14 U/L 5-34 Serum or plasma alanine aminotransferase measurement (enzymatic activity/volume) 11 U/L 0-55 Serum or plasma protein measurement (mass/volume) 7.2 g/dL 6.4-8.2 Serum or plasma albumin measurement (mass/volume) 4.1 g/dL 3.2-4.5 Magnesium - 01/22/17 21:39 Magnesium 2.0 mg/dL 1.8-2.4 Serum or plasma thyroxine (T4) free measurement (mass/volume) - 01/22/17 21:39 Serum or plasma thyroxine (T4) free measurement (mass/volume) 1.02 ng/dL 0.70-1.48 Serum or plasma creatine kinase measurement (enzymatic activity/volume) - 01/22/17 21:39 Serum or plasma creatine kinase measurement (enzymatic activity/volume) 109 U/L 30-200 Serum or plasma C reactive protein measurement (mass/volume) - 01/22/17 21:39 Serum or plasma C reactive protein measurement (mass/volume) 0.17 mg/dL 0.00-0.50 Serum or plasma troponin i.cardiac measurement (mass/volume) - 01/22/17 21:39 Serum or plasma troponin i.cardiac measurement (mass/volume) < ng/mL <0.30 Myoglobin, serum - 01/22/17 21:39 Myoglobin, serum 26.5 ng/mL 10.0-92.0 Serum or plasma thyrotropin measurement by detection limit <=0.05 miu/l (units/volume) - 01/22/17 21:39 Serum or plasma thyrotropin measurement by detection limit <=0.05 miu/l (units/volume) 0.31 u[iU]/mL 0.35-4.94 Serum or plasma ethanol measurement (mass/volume) - 01/22/17 21:39 Serum or plasma ethanol measurement (mass/volume) < mg/dL <10 Lipase - 01/22/17 21:39 Lipase 18 U/L 8-78 Tick identification panel - 01/22/17 21:39 Serum Ehrlichia chaffeensis IgG antibody detection <1:16 <1:16 Serum Ehrlichia chaffeensis IgM antibody detection <1:10 <1:10 Serum Rickettsia rickettsii IgG antibody assay (units/volume) < <1:16 [place] spotted fever panel < <1:10 Francisella tularensis antibody assay <1:20 NRG LYME AB G M 0.04 % 0.00-0.89 Interpretation of Lyme disease antibody assay Negative Negative Complete urinalysis with reflex to culture - 01/22/17 23:49 Urine color determination YELLOW NRG Urine clarity determination CLEAR NRG Urine pH measurement by test strip 5 5-9 Specific gravity of urine by test strip 1.025 1.016-1.022 Urine protein assay by test strip, semi-quantitative [...] sediment leukocyte count by microscopy (number/high power field) NONE NRG Bacteria detection in urine sediment [...] Automated erythrocyte mean corpuscular hemoglobin concentration measurement (mass/volume) 33 g/dL 32-36 Automated erythrocyte distribution width ratio 13.0 % 10.0- 14.5 Automated blood platelet count (count/volume) 307 10*3/uL [...] Serum or plasma aspartate aminotransferase measurement (enzymatic activity/volume) 14 U/L 5-34 Serum or plasma alanine aminotransferase measurement (enzymatic activity/volume) 13 U/L 0-55 Serum or plasma protein measurement (mass/volume) 7.2 g/dL 6.4-8.2 Serum or plasma albumin measurement (mass/volume) 4.1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
[2019-03-26] MEDS ORDERED: NS IV 1000 ML 1,000 ML IV ONE ×2 (12:59→13:42)
[2019-03-26] MEDS ORDERED: fentaNYL INJECTION 100 MCG/2 ML AMP IVP STA (12:59)
[2019-03-26] MEDS ORDERED: ONDANSETRON 4 MG/2 ML (SDV) Z0FRAN IVP ONE (13:00)
[2019-03-26] MEDS ORDERED: DEXAMETHASONE 4 MG/ML SDV (DECADRON) IV ONE (13:00)
[2019-03-26] MEDS ORDERED: GLUCAGON EMERGENCY 1 MG/KIT IV ONE (13:00)
--- NOTE | 2019-03-26 13:03 | ED GI ---
General Chief Complaint: Oral/Throat Problems Stated Complaint: STEAK STUCK IN THROAT Nursing Triage Note: f/b throat x 2 days Sepsis Screen: No Definite Risk Source of Information: Patient Exam Limitations: No Limitations History of Present Illness Date Seen by Provider: Mar 26, 2019 Time Seen by Provider: 13:03 Initial Comments 64-year-old male patient presents to the emergency Department with reports of a piece of steak in the esophagus 2 days. Patient states he did not come to the emergency department due to "not wanting to bother rest." Patient states he is not able to eat or drink anything. He is not able to swallow saliva. Patient has a history of esophageal stricture, multiple foreign bodies of the esophagus, and multiple EGD"s with dilations. The last EGD with dilation was in November [address] No. Timing/Duration: Constant, Other (2 day onset) Severity/Quality: Severe Location: Other (esophageal) Activities at Onset: Other (heating) Modifying Factors: Worsens With Eating, Worsens With Other (drinking) Allergies and Home Medications Allergies Coded Allergies: ibuprofen (Verified Allergy, Unknown, 04/05/15) HYPERTENSION tramadol (Verified Adverse Reaction, Unknown, VOMIT, 10/03/18) Home Medications Amoxicillin 500 Mg Capsule, 500 MG PO TID Prescribed by: ALBA ROSA on 11/20/18 155 Aspirin 81 Mg Tablet., 81 MG PO DAILY, (Reported) Celecoxib 200 Mg Capsule, 200 MG PO DAILY Prescribed by: ALBA ROSA on 11/20/18 1551 Cyclobenzaprine HCl 10 Mg Tablet, 10 MG PO Q8H Prescribed by: TIMI MATTSON on 01/06/19 0433 Hydrocodone Bit/Acetaminophen 1 Ea Tablet, 1 EACH PO Q4H PRN for PAIN-MODERATE Prescribed by: RIK NO on 10/07/18 1439 Methylprednisolone 4 Mg Tab.ds.pk, 4 MG PO UD Prescribed by: TIMI MATTSON on 01/06/19 0433 Ofloxacin 5 Ml Drops, 5 DROPS RIGHT EAR BID Prescribed by: ALBA ROSA on 11/20/18 155 Pantoprazole Sodium 40 Mg Tablet., 40 MG PO DAILY Prescribed by: RIK NO on 11/24/18 1708 Patient Home Medication List Home Medication List Reviewed: Yes Review of Systems Review of Systems Constitutional: No chills, No diaphoresis, No dizziness, No fever, No malaise Respiratory: Denies Cough, Denies Orthopnea, Denies Shortness of Air, Denies Stridor, Denies Wheezing Cardiovascular: Denies Chest Pain, Denies Lightheadedness, Denies Palpitations, Denies Syncope Gastrointestinal: See HPI Genitourinary: No Symptoms Reported Musculoskeletal: no symptoms reported Skin: no symptoms reported Psychiatric/Neurological: No Symptoms Reported All Other Systems Reviewed Negative Unless Noted: Yes (Negative excepted noted.) Past Enuxtez-Brqvhe-Mmoiph Hx Past Med/Social Hx: Reviewed and Corrections made Patient Social History Alcohol Use: Denies Use Recreational Drug Use: No Drug of Choice: XANAX, NARCOTICS, HAS ALSO HX OF TESTING + FOR METHAMPHETAMIES Smoking Status: Current Everyday Smoker Type Used: Cigarettes 2nd Hand Smoke Exposure: Yes Recent Foreign Travel: No Contact w/Someone Who Travel: No Recent Infectious Disease Expo: No Recent Hopitalizations: No Physical Abuse: No Sexual Abuse: No Immunizations Up To Date Tetanus Booster (TDap): Less than 5yrs PED Vaccines UTD: No Date of Pneumonia Vaccine: May 26, 2017 Date of Influenza Vaccine: May 24, 2018 Seasonal Allergies Seasonal Allergies: No Past Medical History Surgeries: Yes Appendectomy, Ear Surgery, Gallbladder, Orthopedic Respiratory: Yes (PER OLD RECORDS, PT HAS COPD, BUT PT DENIES) Chronic Bronchitis, COPD, Emphysema Cardiac: Yes (MINIMAL, NON-OCCLUSIVE SMALL VESSEL DISEASE, EF 50% PER CATH 06/29/17) Coronary Artery Disease, High Cholesterol, Hypertension Neurological: Yes (RESTLESS LEG SYNDROME) Reproductive Disorders: No Sexually Transmitted Disease: No HIV/AIDS: No Genitourinary: No Gastrointestinal: Yes (esophageal stricture) Gastroesophageal Reflux Musculoskeletal: Yes Degenerate Disk Disease, Chronic Back Pain Endocrine: No HEENT: Yes (POOR DENTITION; BMT'S ) Chronic Ear Infection Hearing Impairment: Hard of Hearing Cancer: Yes Skin Did You Recieve Any Treatments: Yes What Type of Treatment Did You: Surgical Intervention Psychosocial: Yes Anxiety, Suicide Attempts, Depression Integumentary: No Blood Disorders: No Adverse Reaction/Blood Tranf: No (N/A) Family Medical History Reviewed Nursing Family Hx Cancer 03 FATHER (PROSTATE) 03 MOTHER (BREAST CA ) 09 BROTHER (THROAT/PANCREATIC) 09 SISTER (LIVER) DEAFNESS 03 FATHER 09 BROTHER Family history: Breast disease 03 MOTHER (BREAST CA) History of - respiratory disease Prostate cancer 03 FATHER Stroke 03 MOTHER Visual impairment No Pertinent Family Hx, Cancer Physical Exam Vital Signs Vital Signs - First Documented 03/26/19 12:42 Temp 98.2 Pulse 76 Resp 20 B/P (MAP) 150/81 (104) Pulse Ox 97 O2 Delivery Room Air Capillary Refill : Less Than 3 Seconds Height/Weight/BMI Height: 5'6.00" Weight: 130lbs. 0.0oz. [id number]; 21.8 BMI Method:Stated General Appearance: WD/WN, no apparent distress HEENT: PERRL/EOMI, pharynx normal Neck: supple, normal inspection Respiratory: lungs clear, normal breath sounds, no respiratory distress, no accessory muscle use Cardiovascular: normal peripheral pulses, regular rate, rhythm, no edema, no murmur Gastrointestinal: normal bowel sounds, non tender, soft, no organomegaly; No other (patient is not able to swallow his own saliva.) Extremities: no pedal edema, normal capillary refill Neurologic/Psychiatric: alert, normal mood/affect, oriented x 3 Skin: normal color, warm/dry Progress/Results/Core Measures Results/Orders Lab Results Laboratory Tests Test 03/26/19 13:10 Range/Units White Blood Count 6.6 4.3-11.0 10^3/uL Red Blood Count 4.63 4.35-5.85 10^6/uL Hemoglobin 14.9 13.3-17.7 G/DL Hematocrit 45 40-54 % Mean Corpuscular Volume 97 80-99 FL Mean Corpuscular Hemoglobin 32 25-34 PG Mean Corpuscular Hemoglobin Concent 33 32-36 G/DL Red Cell Distribution Width 13.8 10.0-14.5 % Platelet Count 212 130-400 10^3/uL Mean Platelet Volume 8.8 7.4-10.4 FL Neutrophils (%) (Auto) 68 42-75 % Lymphocytes (%) (Auto) 24 12-44 % Monocytes (%) (Auto) 7 0-12 % Eosinophils (%) (Auto) 0 0-10 % Basophils (%) (Auto) 0 0-10 % Neutrophils # (Auto) 4.5 1.8-7.8 X 10^3 Lymphocytes # (Auto) 1.6 1.0-4.0 X 10^3 Monocytes # (Auto) 0.5 0.0-1.0 X 10^3 Eosinophils # (Auto) 0.0 0.0-0.3 10^3/uL Basophils # (Auto) 0.0 0.0-0.1 10^3/uL Prothrombin Time 14.1 12.2-14.7 SEC INR Comment 1.1 0.8-1.4 Activated Partial Thromboplast Time 30 24-35 SEC Sodium Level 140 135-145 MMOL/L Potassium Level 4.2 3.6-5.0 MMOL/L Chloride Level 104 98-107 MMOL/L Carbon Dioxide Level 25 21-32 MMOL/L Anion Gap 11 5-14 MMOL/L Blood Urea Nitrogen 10 7-18 MG/DL Creatinine 0.77 0.60-1.30 MG/DL Estimat Glomerular Filtration Rate > 60 BUN/Creatinine Ratio 13 Glucose Level 103 70-105 MG/DL Calcium Level 9.9 8.5-10.1 MG/DL Corrected Calcium 9.9 8.5-10.1 MG/DL Total Bilirubin 0.4 0.1-1.0 MG/DL Aspartate Amino Transf (AST/SGOT) 16 5-34 U/L Alanine Aminotransferase (ALT/SGPT) 16 0-55 U/L Alkaline Phosphatase 74 40-136 U/L Total Protein 7.3 6.4-8.2 GM/DL Albumin 4.0 3.2-4.5 GM/DL My Orders Orders - GIDEON THAKUR Ed Iv/Invasive Line Start (03/26/19 12:59) Cbc With Automated Diff (03/26/19 12:59) Comprehensive Metabolic Panel (03/26/19 12:59) Protime With Inr (03/26/19 12:59) Partial Thromboplastin Time (03/26/19 12:59) Ondansetron Injection (Zofran Injectio (03/26/19 13:00) Fentanyl Injection (Sublimaze Injection (03/26/19 12:59) Ns Iv 1000 Ml (Sodium Chloride 0.9%) (03/26/19 12:59) Glucagon Emergency Kit (Glucagon Emergen (03/26/19 13:00) Dexamethasone Injection (Decadron Inject (03/26/19 13:00) Chest Pa/Lat (2 View) (03/26/19 13:22) Medications Given in ED Current Medications Medications Dose Ordered Sig/Isabell Route Start Time Stop Time Status Last Admin Dose Admin Dexamethasone Sodium Phosphate 4 mg ONCE ONCE IV 03/26/19 13:00 03/26/19 13:02 DC 03/26/19 13:22 4 MG Glucagon 1 mg ONCE ONCE IV 03/26/19 13:00 03/26/19 13:02 DC 03/26/19 13:26 1 MG Ondansetron HCl 4 mg ONCE ONCE IVP 03/26/19 13:00 03/26/19 13:02 DC 03/26/19 13:18 4 MG Sodium Chloride 1,000 ml @ 0 mls/hr Q0M ONCE IV 03/26/19 12:59 03/26/19 13:02 DC 03/26/19 13:15 1,000 MLS/HR Vital Signs/I&O 03/26/19 12:42 Temp 98.2 Pulse 76 Resp 20 B/P (MAP) 150/81 (104) Pulse Ox 97 O2 Delivery Room Air Blood Pressure Mean: 104 Diagnostic Imaging Diagonstic Imaging: Xray Plain Films/CT/US/NM/MRI: chest Comments CHEST PA/LAT (2 VIEW) EXAMINATION: Chest, PA and lateral views. INDICATION: Foreign body sensation in throat. Patient reports a piece of steak getting caught in his esophagus. Patient reports coughing ever since then. COMPARISON: Multiple priors, most recent performed on 08/15/2018. FINDINGS: There is mild biapical pleural-parenchymal scarring. There is flattening of the hemidiaphragms and mild hyperexpansion of lungs, likely reflecting chronic changes of COPD. No focal consolidation is demonstrated. No pneumothorax or pleural effusion. The cardiomediastinal silhouette is normal. No acute osseous abnormality is identified. Spinal stimulator is demonstrated in the superficial soft tissues in the lower back. Partially visualized cervical spinal fusion hardware is demonstrated. IMPRESSION: No radiographic evidence of acute chest disease. No significant change from prior. Dictated on workstation # [id number] Reviewed: Reviewed by Me (radiology report reviewed by me) Departure Communication (Admissions) Time/Spoke to Admitting Phy: 13:17 Dr. No graciously accepts patient to his surgical service for IV fluids, pain control, antiemetics, and EGD with dilation in the a.m. Patient seen and evaluated. Initial labs and CXR obtained. Patient given fentanyl, decadron, glucagon, 1 liter NS, and zofran. Patient reports mild improvement in esophageal spasms and pain. All laboratory findings, diagnostic study findings, and plan for admission discussed with the patient. Patient verbalizes understanding and agrees with the treatment plan. Plan for admission discussed with Dr. Arteaga, he agrees with the plan of care. Impression Primary Impression: Foreign body in esophagus Qualified Codes: T18.108A - Unspecified foreign body in esophagus causing other injury, initial encounter Additional Impressions: Esophageal stricture Personal history of chronic obstructive pulmonary disease Disposition: ADMITTED INPATIENT Condition: Stable Admissions Decision to Admit Reason: Admit from ER (General) Decision to Admit/Date: Mar 26, 2019 Time/Decision to Admit Time: 13:17 Departure-Patient Inst. Referrals: NO,LOCAL PHYSICIAN (PCP/Family) Primary Care Physician GIDEON THAKUR Mar 26, 2019 13:03
--- NOTE | 2019-03-26 13:20 | NUR ---
pt has no t had any loss of saliva control in er visit thus far.
--- NOTE | 2019-03-26 13:20 | NUR ---
DR DID NOT HAVE PT DRINK ANYTHING YET AND I HERE AUDIBLE RHONCHI IN THE BRONCHI. NO OTHER ACUTE SIGHNS OF DYSPNEA NOTED.
[2019-03-26 13:24] LABS: BASOPHILS % (AUTO) 0 % (0-10); EOSINOPHILS % (AUTO) 0 % (0-10); HEMATOCRIT 45 % (40-54); HEMOGLOBIN 14.9 G/DL (13.3-17.7); LYMPHOCYTES # (AUTO) 1.6 X 10^3 (1.0-4.0); LYMPHOCYTES % (AUTO) 24 % (12-44); MEAN CORPUSCULAR HEMOGLOBIN 32 PG (25-34); MEAN CORPUSCULAR HGB CONC 33 G/DL (32-36); MEAN CORPUSCULAR VOLUME 97 FL (80-99); MEAN PLATELET VOLUME 8.8 FL (7.4-10.4); MONOCYTES # (AUTO) 0.5 X 10^3 (0.0-1.0); MONOCYTES % (AUTO) 7 % (0-12); NEUTROPHILS # (AUTO) 4.5 X 10^3 (1.8-7.8); NEUTROPHILS % (AUTO) 68 % (42-75); PLATELET COUNT 212 10^3/uL (130-400); RED CELL DISTRIBUTION WIDTH 13.8 % (10.0-14.5); WHITE BLOOD COUNT 6.6 10^3/uL (4.3-11.0)
[2019-03-26 13:34] LABS: INR 1.1 (0.8-1.4); PROTHROMBIN TIME PATIENT 14.1 SEC (12.2-14.7)
[2019-03-26 13:40] LABS: ALANINE AMINOTRANSFERASE 16 U/L (0-55); ALKALINE PHOSPHATASE 74 U/L (40-136); BILIRUBIN,TOTAL 0.4 MG/DL (0.1-1.0); BUN/CREATININE RATIO 13; CALCIUM 9.9 MG/DL (8.5-10.1); CARBON DIOXIDE 25 MMOL/L (21-32); CHLORIDE 104 MMOL/L (98-107); CREATININE SERUM 0.77 MG/DL (0.60-1.30); GFR ESTIMATED > 60; GLUCOSE 103 MG/DL (70-105); POTASSIUM 4.2 MMOL/L (3.6-5.0); SODIUM 140 MMOL/L (135-145); TOTAL PROTEIN 7.3 GM/DL (6.4-8.2)
[2019-03-26] MEDS ORDERED: LORazepam INJ 2 MG/ML (ATIVAN) VIAL IVP ONE (13:45)
--- NOTE | 2019-03-26 13:50 | NUR ---
2nd ns bolus piggybacked into 1st one which is 1/2 - 3/4 completed.
--- NOTE | 2019-03-26 14:11 | Diagnostic Imaging Report ---
EXAMINATION: Chest, PA and lateral views. INDICATION: Foreign body sensation in throat. Patient reports a piece of steak getting caught in his esophagus. Patient reports coughing ever since then. COMPARISON: Multiple priors, most recent performed on 08/15/2018. FINDINGS: There is mild biapical pleural-parenchymal scarring. There is flattening of the hemidiaphragms and mild hyperexpansion of lungs, likely reflecting chronic changes of COPD. No focal consolidation is demonstrated. No pneumothorax or pleural effusion. The cardiomediastinal silhouette is normal. No acute osseous abnormality is identified. Spinal stimulator is demonstrated in the superficial soft tissues in the lower back. Partially visualized cervical spinal fusion hardware is demonstrated. IMPRESSION: No radiographic evidence of acute chest disease. No significant change from prior. Dictated by: Dictated on workstation # [id number]
--- NOTE | 2019-03-26 14:39 | NUR ---
pt remains here by self alert gcs 15. no stridor or wheezes or acute sighns of dyspnea noted. pt relates he has had no loss of saliva control in er visit thus far. no rhonchi in bronchi noted. bp machine is 159/91 ausc hr 60 reg ausc resp 16 normal recheck temp 98.2 p ox r/a is 96. 1500 of 2 liter bolus completed.
--- NOTE | 2019-03-26 14:49 | NUR ---
i just called report to admit nurse celaya. someone will take pt to admit room anna. the 2 liter. bolus might be completed before pt gets to the admit room
--- NOTE | 2019-03-26 14:55 | NUR ---
i am taking pt to admit room now. bolus has 50-100 left . i will cory it off now.
--- NOTE | 2019-03-26 15:01 | NUR ---
SOMEONE ELSE TAKING PT TO ADMIT ROOM AND 2 LITER BOLUS HAS BEEN COMPLETED.
--- OUTSIDE RECORDS SUMMARY | 2019-03-26 15:05 | XMS REPORT | Clinical Summary ---
Author Author [facility] Organization [facility] Address Unknown Phone Unavailable Care Team Providers Care Java Sy[employer] Developer Name Role Phone Unverified, Unverified Md PCP Unavailable Source Comments Some departments are not documenting in the electronic medical record. If you d o not see the information that you expected, contact Release of Information in [facility] [employer] Information Management department at [phone] for further assistan ce in locating additional records.[facility] Allergies Not on File Medications Not on [...]
--- NOTE | 2019-03-26 15:10 | NUR ---
LUZ ELENA CALDWELL admitted to room 423-1, with an admitting diagnosis of FOREIGN BODY ESOPHAGUS, ESOPAGEALSTRICTURE, COPD, on 03/26/19 from ER via W/C, accompanied by ER STAFF.LUZ ELENA CALDWELL introduced to surroundings, call light, bed controls, phone, TV, temperature control, lights, meal times, smoking policy, visitor policy, side rail policy, bathrooms and showers. Patient Rights given to patient in the handbook. LUZ ELENA CALDWELL verbalizes understanding that [facility] is not responsible for the loss or damage to any personal effects or valuables that are kept in the patients posession during their hospitalization. The following Patient Care Plans were discussed with the PT: Discharge Planning, ANX, DSYSPHAGIA, FATIGUE, FEAR, HIGH RISK ASPIRATION, HIGH RISK FL VOL DEFICIT . LUZ ELENA CALDWELL verbalizes understanding of Interdisciplinary Patient Education. Patient and/or family were informed about the Rapid Response Team and its purpose. PT CAME TO FLOOR FROM ER W/ IV IN
[2019-03-26 15:15] VITALS: BP 162/88
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
[2019-03-26 15:18] VITALS: BP 162/88
[2019-03-26] MEDS: NS IV 1000 ML 1,000 ML IV SCH ×2 (15:59→20:20)
[2019-03-26] MEDS ORDERED: fentaNYL INJECTION 100 MCG/2 ML AMP IV PRN (16:00)
[2019-03-26] MEDS ORDERED: PANTOPRAZOLE 40 MG (PROTONIX) VIAL IV SCH (16:00)
--- NOTE | 2019-03-26 16:45 | NUR ---
NOTE THAT PT VOICED HE HD BEEN OFF FLOOR TO SMOKE REMINDED PT THAT THIS IS A NON SMOKING FACILITY AND THAT DUE TO HIS SWALLOWING PROBLEMS HE CAN NOT BE GOING DOWN TO SMOKE DUE TO CHOKING AND ASPIRATION RISK, AND THAT HE IS GETTING SCHEDULED ATIVAN AND NEEDS TO STAY IN HIS ROOM -- REMINDED HIM HE IS ON BEDREST WITH [facility] -- PT VOICED HE WOULD STAY ON FLOOR
--- NOTE | 2019-03-26 18:39 | Conscious Sedation/ASA ---
Conscious Sedation Pre-Proced Time 18:00 ASA Score 2 For ASA 3 and 4: Consider anesthesia and medical clearance. Also, for patients with a history of failed moderate sedation consider anesthesia. Airway Lungs Heart ASA score ASA 1: a normal healthy patient ASA 2: a patient with a mild systemic disease (mid diabetes, controlled hypertension, obesity ASA 3: a patient with a severe systemic disease that limits activity (angina, COPD, prior Myocardial infarction) ASA 4: a patient with an incapacitating disease that is a constant threat to life (CHF, renal failure) ASA 5: a moribund patient not expected to survive 24 hrs. (ruptured aneurysm) ASA 6: a declared brain- patient whose organs are being harvested. For emergent operations, add the letter E after the classification Mallampati Classification Grade 2 Sedation Plan Analgesia, Amnesia, Plan communicated to team members, Discussed options with patient/fam, Discussed risks with patient/fam The patient is an appropriate candidate to undergo the planned procedure, sedation, and anesthesia. The patient immediately re-assessed prior to indication. RIK BRADY MD Mar 26, 2019 18:39
[2019-03-26] MEDS: ONDANSETRON 4 MG/2 ML (SDV) Z0FRAN IV SCH (18:40)
--- NOTE | 2019-03-26 18:41 | Progress Note-Pre Operative ---
Pre-Operative Progress Note H&P Reviewed The H&P was reviewed, patient examined and no changes noted. Date Seen by Provider: Mar 26, 2019 Time Seen by Provider: 18:00 Date H&P Reviewed: Mar 26, 2019 Time H&P Reviewed: 18:00 Pre-Operative Diagnosis: recurrent GERD, stricture, sx eosphageal FB RIK BRADY MD Mar 26, 2019 18:40
--- NOTE | 2019-03-26 19:50 | HISTORY AND PHYSICAL ---
DATE OF SERVICE: HISTORY OF PRESENT ILLNESS: The patient is a 64-year-old male well known to us. He has a longstanding history of gastroesophageal reflux disease as well as multiple episodes of dysphagia and impacted esophageal foreign body requiring removal of foreign body as well as balloon dilatation. His last one was done on 11/24/2018. He again does have a longstanding history of gastroesophageal reflux disease, however, is noncompliant. It appears that he has had a total of 6 esophageal foreign bodies in the past requiring removal as well as dilatation. He has been placed on PPI acid reducers as well as Carafate, however, has been noncompliant with medications. He also does have risk factors including alcohol as well as greater than 40 pack years of smoking. He also takes celecoxib as well as hydrocodone for degenerative joint disease pain. He again presented with dysphagia and substernal pressure sensation for the past two days. He states that this lingers, so he decided to come to the Emergency Department. His vital signs are stable and his laboratory work is normal. PAST MEDICAL HISTORY: Esophageal stricture, gastroesophageal reflux disease, coronary artery disease, hypercholesterolemia, hypertension, COPD, degenerative joint disease, anxiety, depression. PAST SURGICAL HISTORY: Cholecystectomy, orthopedic procedures, multiple EGDs as well as removal of foreign body and dilatation. ALLERGIES: IBUPROFEN. MEDICATIONS: Aspirin 81 mg daily, celecoxib 200 mg daily, hydrocodone p.r.n., ofloxacin ear drops b.i.d. SOCIAL HISTORY: 40 pack year, social alcohol. FAMILY HISTORY: Father prostate cancer, mother breast cancer. REVIEW OF SYSTEMS: Well-nourished male, currently in no acute distress. He is not experiencing any shortness of breath or difficulty breathing. No chest pain, palpitations or diaphoresis. Substernal pressure sensation as well as dysphagia and mild regurgitation of saliva. No hematemesis, no coffee ground emesis. He is having regular bowel movements. No fever or chills. No recent inadvertent weight loss. All other review of systems negative. PHYSICAL EXAMINATION: VITAL SIGNS: Temperature 98.1, blood pressure 155/108, pulse 73, respirations 17, pulse ox 96% on room air. CHEST: Distant breath sounds and scattered wheezes bilaterally. HEART: Regular, no murmurs. EXTREMITIES: No lower extremity edema, negative Homans sign. HEENT: No scleral icterus. NECK: No cervical lymphadenopathy. ABDOMEN: Soft, nontender, nondistended. There is mild discomfort in the epigastric region upon deep palpation. SKIN: Warm, dry. LABORATORY DATA: WBC 6.6, hemoglobin 14.9, hematocrit 45, platelets 212. BUN 10, creatinine 0.77. ASSESSMENT AND PLAN: A 64-year-old male with medical noncompliance and longstanding history of gastroesophageal reflux disease as well as recurrent episodes of esophageal foreign body secondary to stricture formation. We will start IV fluids as well as glucagon and antinausea medications as well as antipain and antianxiety medications and hopefully allowing this to reduce on its own. Either way, we will proceed with an EGD as well as balloon dilatation of the stricture. Due to his noncompliance as well, he may need further consultation with a thoracic surgeon for the recurrent symptomatic episodes of stricture and esophageal foreign body and the further evaluation may encompass potential esophageal resection and anastomosis. Job ID: [id number] DocumentID: [id number] Dictated Date: 03/26/2019 18:38:02 Pole Framer Machine Date: 03/26/2019 19:50:06 Dictated By: RIK BRADY MD
[2019-03-26 20:00] VITALS: BP 162/80
[2019-03-26] MEDS: LORazepam INJ 2 MG/ML (ATIVAN) VIAL IV SCH (20:17)
[2019-03-26] MEDS: FAMOTIDINE 20MG/2ML IV (PEPCID) IV SCH (22:15)
[2019-03-26] MEDS ORDERED: NICOTINE 21 MG (NICODERM) PATCH ONE (22:20)
[2019-03-26] MEDS ORDERED: HALOPERIDOL 5 MG/ML (HALDOL) AMP IM/IV PRN (22:30)
[2019-03-26] MEDS ORDERED: HALOPERIDOL 5 MG/ML (HALDOL) AMP IM/IV ONE (22:30)
[2019-03-27] VITALS (24 sets, daily range): BP systolic 138–173; BP diastolic 63–80
[2019-03-27] MEDS: ONDANSETRON 4 MG/2 ML (SDV) Z0FRAN IV SCH ×2 (01:13→08:00)
[2019-03-27] MEDS: NS IV 1000 ML 1,000 ML IV SCH ×4 (01:13→12:02)
[2019-03-27] MEDS: LORazepam INJ 2 MG/ML (ATIVAN) VIAL IV SCH ×2 (01:14→07:53)
[2019-03-27 06:00] LABS: BASOPHILS % (AUTO) 0 % (0-10); EOSINOPHILS % (AUTO) 0 % (0-10); HEMATOCRIT 41 % (40-54); HEMOGLOBIN 13.4 G/DL (13.3-17.7); LYMPHOCYTES # (AUTO) 1.5 X 10^3 (1.0-4.0); LYMPHOCYTES % (AUTO) 18 % (12-44); MEAN CORPUSCULAR HEMOGLOBIN 32 PG (25-34); MEAN CORPUSCULAR HGB CONC 33 G/DL (32-36); MEAN CORPUSCULAR VOLUME 96 FL (80-99); MONOCYTES # (AUTO) 0.5 X 10^3 (0.0-1.0); MONOCYTES % (AUTO) 6 % (0-12); NEUTROPHILS # (AUTO) 6.5 X 10^3 (1.8-7.8); NEUTROPHILS % (AUTO) 76 % (42-75); PLATELET COUNT 209 10^3/uL (130-400); RED CELL DISTRIBUTION WIDTH 13.8 % (10.0-14.5); WHITE BLOOD COUNT 8.6 10^3/uL (4.3-11.0)
[2019-03-27 06:26] LABS: ALANINE AMINOTRANSFERASE 11 U/L (0-55); ALBUMIN 3.5 GM/DL (3.2-4.5); ALKALINE PHOSPHATASE 71 U/L (40-136); BILIRUBIN,TOTAL 0.6 MG/DL (0.1-1.0); BUN/CREATININE RATIO 16; CALCIUM 8.9 MG/DL (8.5-10.1); CARBON DIOXIDE 18 MMOL/L (21-32); CHLORIDE 107 MMOL/L (98-107); CREATININE SERUM 0.75 MG/DL (0.60-1.30); GFR ESTIMATED > 60; GLUCOSE 102 MG/DL (70-105); SODIUM 139 MMOL/L (135-145); TOTAL PROTEIN 6.2 GM/DL (6.4-8.2)
[2019-03-27] MEDS: FAMOTIDINE 20MG/2ML IV (PEPCID) IV SCH (08:04)
[2019-03-27] MEDS ORDERED: MIDAZOLAM 2 MG/2 ML (VERSED) VIAL ONE ×4 (08:53→09:45)
[2019-03-27] MEDS ORDERED: LIDOCAINE JELLY 2% 6 ML SYRINGE ONE (08:53)
[2019-03-27] MEDS ORDERED: HURRICAINE EXT TUBE (BENZOCAINE) ONE (08:53)
[2019-03-27] MEDS ORDERED: fentaNYL INJECTION 100 MCG/2 ML AMP ONE (08:58)
[2019-03-27] MEDS ORDERED: NICOTINE 21 MG (NICODERM) PATCH TD SCH (09:00)
[2019-03-27] MEDS ORDERED: NS IV 500 ML 500 ML IV PRN (09:09)
[2019-03-27] MEDS ORDERED: MIDAZOLAM 2 MG/2 ML (VERSED) VIAL IVP ONE (09:15)
[2019-03-27] MEDS ORDERED: fentaNYL INJECTION 100 MCG/2 ML AMP IVP ONE (09:15)
[2019-03-27] MEDS ORDERED: LIDOCAINE JELLY 2% 6 ML SYRINGE MM PRN (09:15)
[2019-03-27] MEDS ORDERED: HURRICAINE EXT TUBE (BENZOCAINE) XX PRN (09:15)
--- NOTE | 2019-03-27 10:32 | Progress Note-Post Operative ---
Post-Operative Progess Note Surgeon (s)/Warehouse Pricing And Inventory Clerk (s) Surgeon RIK BRADY MD Warehouse Pricing And Inventory Clerk: none Pre-Operative Diagnosis recurrent GERD, stricture, sx eosphageal FB Post-Operative Diagnosis same with passed esophageal FB Procedure & Operative Findings Date of Procedure 03/27/19 Procedure Performed/Findings EGD with bx and balloon dilatation. Anesthesia Type cs Estimated Blood Loss Estimated blood loss (mL): minimal Specimens/Packing Specimens Removed ge jxn, antrum RIK BRADY MD Mar 27, 2019 10:32
[2019-03-27] MEDS ORDERED: PANT40TA2 PO (10:34)
--- NOTE | 2019-03-27 10:35 | Discharge Inst-Surgical ---
D/C Lap Instructions-KIDO New, Converted, or Re-Newed RX: RX on Chart Follow Up Appt in 6-8 weeks Activity as tolerated High Fiber Diet 25g or more per day Avoid Alcohol, Caffeine, Spicy [place] and Acid foods. Drink 64 fluid oz or more of fluids per day. Symptoms to Report: Fever over 101 degree F, Nausea/Vomiting If any problems/questions: Contact your physician or go to Emergency Room RIK BRADY MD Mar 27, 2019 10:35
--- NOTE | 2019-03-27 13:12 | NUR ---
reported of patient attempting to drive home , staff redirect for the girlfriend to drive, staff waited till they drove off the parking - patient left with girlfriend driving him home
--- NOTE | 2019-03-27 14:04 | OPERATIVE REPORT ---
DATE OF SERVICE: 03/27/2019 PREOPERATIVE DIAGNOSES: Dysphagia, esophageal foreign body. POSTOPERATIVE DIAGNOSES: Reflux esophagitis stage III with distal esophageal stricture, passed foreign body, no hiatal hernia, moderate gastritis, no distal obstructions. PROCEDURE: EGD with biopsy and balloon dilatation. SURGEON: Rik Brady MD ANESTHESIA: Conscious sedation. ESTIMATED BLOOD LOSS: Minimal. FINDINGS: Reflux esophagitis stage III with distal esophageal stricture, passed foreign body, no hiatal hernia, moderate gastritis, no distal obstructions. DISPOSITION: The patient tolerated the procedure well. INDICATIONS: The patient is a 64-year-old male known to us. He has had multiple issues with gastroesophageal reflux disease, distal esophageal stricture and recurrent episodes of dysphagia and impacted esophageal foreign body. He has had approximately five foreign bodies removed in the past; however, the patient is noncompliant, does have risk factors including smoking as well as caffeinated beverages. He states that he was eating steak, felt a pressure sensation two days ago; however, tried a lot of time to pass; however, it did not. He was otherwise doing well. Vital signs are stable and no respiratory issues. DESCRIPTION OF PROCEDURE: The patient was brought to the endoscopy suite, laid in the left lateral decubitus position. After adequate IV pain and sedative medications and conscious sedation anesthesia, the mouthpiece was applied. The endoscope was then placed in the mouth, visualizing the pharynx and hypopharyngeal region. Vocal cords, epiglottis and vallecula were identified and appeared to be normal. The endoscope was then gently intubated. The esophageal opening and esophagus was insufflated. The endoscope was then advanced to the first, second and third portions of the esophagus. There was no esophageal foreign body identified, which had passed. There was a reflux esophagitis stage III with a mild distal esophageal stricture. This was biopsied to rule out Hill's esophagus with visualization of good hemostasis. The endoscope was then advanced into the stomach and endoscope was retroflexed. There was no significant hiatal hernia identified. There was a moderate gastritis identified throughout the majority of the stomach; however, more focal in the antrum. There were no formal ulcerations, polyps or any neoplasms. A biopsy was taken of the antrum to rule out H. pylori. The endoscope was then advanced to the pylorus and the first and second portion of the duodenum, which appeared normal with no distal obstructions. We then proceeded with balloon dilatation of the distal esophageal stricture. The balloon was placed in the stomach and pulled back to the area of the stricture. We first proceeded to two atmospheres of pressure with no resistance. We then proceeded to four, then six atmospheres of pressure until moderate resistance was met and left this in place for approximately 60 seconds. The balloon was then desufflated and removed with visualization of good hemostasis as well as no mucosal tears. The endoscope was then slowly withdrawn while taking a second look and suctioning of residual air with no additional findings. The patient tolerated the procedure well. We will recommend medical compliance with smoking cessation as well as avoidance of caffeinated beverages as well as taking in small and more frequent meals, avoidance of eating at night as well as head elevation while lying supine. He also needs to proceed with smoking cessation. 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 We will start him on pantoprazole 40 mg daily. Job ID: [id number] DocumentID: [id number] Dictated Date: 03/27/2019 10:19:10 Mdm Sr Date: 03/27/2019 14:04:07 Dictated By: RIK BRADY MD
== END 2019-03-27 13:16 | disposition home or self-care (01) ==
LOC: EDUNIT# 12:37 → ER 12:38 → 4TH 13:26 → UNDOADMOB 13:26 → 4TH 13:26 → SDC 13:26 → 4TH 03-27 09:00 → UNDODISOB 03-27 13:16 → 4TH 03-27 13:16 → SDC 03-27 13:16
PROVIDERS: ATTEND Surgery
DX: K21.0 Gastro-esophageal reflux disease with esophagitis (principal); K22.2 Esophageal obstruction; K29.70 Gastritis, unspecified, without bleeding; K31.89 Other diseases of stomach and duodenum; I25.10 Atherosclerotic heart disease of native coronary artery without angina pectoris; E78.00 Pure hypercholesterolemia, unspecified; I10 Essential (primary) hypertension; J44.9 Chronic obstructive pulmonary disease, unspecified; F41.9 Anxiety disorder, unspecified; F32.9 Major depressive disorder, single episode, unspecified; M19.91 Primary osteoarthritis, unspecified site; H91.90 Unspecified hearing loss, unspecified ear; F17.210 Nicotine dependence, cigarettes, uncomplicated; Z79.82 Long term (current) use of aspirin; Z79.899 Other long term (current) drug therapy; Z80.3 Family history of malignant neoplasm of breast; Z80.42 Family history of malignant neoplasm of prostate; Z91.19 Patient's noncompliance with other medical treatment and regimen; Z85.828 Personal history of other malignant neoplasm of skin
CPT/HCPCS: 36415; 71046; 80053; 85025; 85610; 85730; 88305; 88312; 96374; 96375

== ENCOUNTER 2019-04-01 15:03 | Emergency (ER) | payer MEDICARE ==
[~2019-04-01] VITALS: Ht 167.6 cm; Wt 59.0 kg
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
[2019-04-01] MEDS ORDERED: HOLD METFORMIN - RECEIVED CONTRAST 20 ML VIAL IV SCH (15:30)
[2019-04-01] MEDS ORDERED: NS 100 ML (IVPB) BAG IV ONE (15:30)
[2019-04-01] MEDS ORDERED: IOHEXOL 350 MG/ML 100 ML (OMNIPAQUE 350) VIAL IV ONE (15:30)
[2019-04-01 15:31] LABS: BASOPHILS % (AUTO) 0 % (0-10); EOSINOPHILS # (AUTO) 0.1 10^3/uL (0.0-0.3); EOSINOPHILS % (AUTO) 1 % (0-10); HEMATOCRIT 42 % (40-54); HEMOGLOBIN 13.8 G/DL (13.3-17.7); LYMPHOCYTES # (AUTO) 2.5 X 10^3 (1.0-4.0); LYMPHOCYTES % (AUTO) 26 % (12-44); MEAN CORPUSCULAR HEMOGLOBIN 32 PG (25-34); MEAN CORPUSCULAR HGB CONC 33 G/DL (32-36); MEAN CORPUSCULAR VOLUME 99 FL (80-99); MEAN PLATELET VOLUME 8.8 FL (7.4-10.4); MONOCYTES # (AUTO) 0.8 X 10^3 (0.0-1.0); MONOCYTES % (AUTO) 9 % (0-12); NEUTROPHILS # (AUTO) 6.2 X 10^3 (1.8-7.8); NEUTROPHILS % (AUTO) 65 % (42-75); PLATELET COUNT 242 10^3/uL (130-400); RED CELL DISTRIBUTION WIDTH 13.8 % (10.0-14.5); WHITE BLOOD COUNT 9.6 10^3/uL (4.3-11.0)
[2019-04-01 15:54] LABS: ALANINE AMINOTRANSFERASE 13 U/L (0-55); ALBUMIN 3.9 GM/DL (3.2-4.5); ALKALINE PHOSPHATASE 68 U/L (40-136); BILIRUBIN,TOTAL 0.4 MG/DL (0.1-1.0); BUN/CREATININE RATIO 19; CALCIUM 8.9 MG/DL (8.5-10.1); CARBON DIOXIDE 29 MMOL/L (21-32); CHLORIDE 104 MMOL/L (98-107); CREATININE SERUM 0.79 MG/DL (0.60-1.30); GFR ESTIMATED > 60; GLUCOSE 119 MG/DL (70-105); POTASSIUM 3.6 MMOL/L (3.6-5.0); SODIUM 139 MMOL/L (135-145); TOTAL PROTEIN 7.2 GM/DL (6.4-8.2)
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
--- NOTE | 2019-04-01 16:20 | Diagnostic Imaging Report ---
INDICATION: Injury to left thumb. AP, oblique, and lateral views of the left thumb are obtained. There appears to be underlying degenerative change of the first carpometacarpal joint and first MCP joint. There is however partial subluxation of the first MCP joint. On the lateral view, there appear to be small calcifications adjacent to the MCP joint which may represent small avulsions versus chronic change. IMPRESSION: Underlying degenerative findings as described above. There is partial subluxation of the first MCP joint of uncertain chronicity. There are small calcifications adjacent to the MCP joint of the first digit on the lateral view which may represent small avulsions or chronic calcifications. Correlate for point tenderness in this area and consider follow-up as clinically warranted. Dictated by: Dictated on workstation # [id number]
[2019-04-01] MEDS ORDERED: HYDR-4226 PO (16:27)
[2019-04-01] MEDS ORDERED: HYDROcodone/APAP 5 MG/325 MG (LORTAB) TAB PO ONE (16:30)
--- NOTE | 2019-04-01 16:39 | NUR ---
Velcro Splint placed on left thumb and hand. Patient verbalized comfort.
[2019-04-01 16:40] VITALS: BP 158/96
== END 2019-04-01 16:41 | disposition home or self-care (01) ==
LOC: EDUNIT# 15:03 → ER 15:04
DX: S62.502A Fracture of unspecified phalanx of left thumb, initial encounter for closed fracture (principal); S00.83XA Contusion of other part of head, initial encounter; I10 Essential (primary) hypertension; I25.10 Atherosclerotic heart disease of native coronary artery without angina pectoris; E78.00 Pure hypercholesterolemia, unspecified; J43.9 Emphysema, unspecified; K21.9 Gastro-esophageal reflux disease without esophagitis; F41.9 Anxiety disorder, unspecified; F32.9 Major depressive disorder, single episode, unspecified; R40.2142 Coma scale, eyes open, spontaneous, at arrival to emergency department; R40.2252 Coma scale, best verbal response, oriented, at arrival to emergency department; R40.2362 Coma scale, best motor response, obeys commands, at arrival to emergency department; Z91.5 Personal history of self-harm; Z90.49 Acquired absence of other specified parts of digestive tract; Z85.828 Personal history of other malignant neoplasm of skin; Z88.6 Allergy status to analgesic agent; Z79.82 Long term (current) use of aspirin; Z77.22 Contact with and (suspected) exposure to environmental tobacco smoke (acute) (chronic); Z88.5 Allergy status to narcotic agent; Z80.42 Family history of malignant neoplasm of prostate; V86.99XA Unspecified occupant of other special all-terrain or other off-road motor vehicle injured in nontraffic accident, initial encounter
CPT/HCPCS: 36415; 71260; 73130; 74177; 80053; 85025

== ENCOUNTER 2019-04-15 19:45 | Emergency (ER) | payer MEDICARE ==
[~2019-04-15] VITALS: Ht 167.6 cm; Wt 59.0 kg
[~2019-04-15 19:45] MED LIST changes: +HYDR-4226 PO
--- NOTE | 2019-04-15 19:53 | ED Cardiac General ---
History of Present Illness General Chief Complaint: Chest Pain Stated Complaint: CP,SOB Source: patient Exam Limitations: no limitations History of Present Illness Date Seen by Provider: Apr 15, 2019 Time Seen by Provider: 19:51 Initial Comments To ER per EMS from home with reports of chest pain shortness of breath. The pain is left-sided worsened by deep breathing feels like an elephant sitting on his chest. It radiates to the right arm. No history of this. He was given aspirin in route. He was given 2 nitroglycerin sublingual which reduced the pain from 9 out of 10-6 out of 10. Chest pain has been constant for the past 4 hours. EKG done by EMS shows no ST segment changes Timing/Duration: 4-6 hours Severity: moderate Location: central Activities at Onset: none NTG SL CLOTH WINDER: Yes ASA po CLOTH WINDER: Yes Allergies and Home Medications Allergies Coded Allergies: ibuprofen (Verified Allergy, Unknown, 04/05/15) HYPERTENSION tramadol (Verified Adverse Reaction, Unknown, VOMIT, 10/03/18) Patient Home Medication List Home Medication List Reviewed: Yes Review of Systems Review of Systems Constitutional: see HPI EENTM: No Symptoms Reported Respiratory: No Symptoms Reported Cardiovascular: See HPI, Chest Pain Gastrointestinal: See HPI, Abdominal Pain Genitourinary: No Symptoms Reported Musculoskeletal: no symptoms reported Skin: no symptoms reported Psychiatric/Neurological: No Symptoms Reported Endocrine: No Symptoms Reported Hematologic/Lymphatic: No Symptoms Reported Past Qmplxbw-Sddyfk-Zlelmd Hx Patient Social History Drug of Choice: XANAX, NARCOTICS, HAS ALSO HX OF TESTING + FOR METHAMPHETAMIES Type Used: Cigarettes 2nd Hand Smoke Exposure: Yes Recent Foreign Travel: No Contact w/Someone Who Travel: No Recent Hopitalizations: No Immunizations Up To Date Tetanus Booster (TDap): Less than 5yrs PED Vaccines UTD: Yes Date of Pneumonia Vaccine: May 26, 2017 Date of Influenza Vaccine: May 24, 2018 Seasonal Allergies Seasonal Allergies: No Past Medical History Surgeries: Yes (3 back and 3 neck surgeries ) Appendectomy, Ear Surgery, Gallbladder, Orthopedic Respiratory: Yes (PER OLD RECORDS, PT HAS COPD, BUT PT DENIES) Chronic Bronchitis, COPD, Emphysema Cardiac: Yes (MINIMAL, NON-OCCLUSIVE SMALL VESSEL DISEASE, EF 50% PER CATH 06/29/17) Coronary Artery Disease, High Cholesterol, Hypertension Neurological: Yes (RESTLESS LEG SYNDROME) Reproductive Disorders: No Sexually Transmitted Disease: No HIV/AIDS: No Genitourinary: No Gastrointestinal: Yes (esophageal stricture) Gastroesophageal Reflux Musculoskeletal: Yes Degenerate Disk Disease, Chronic Back Pain Endocrine: No HEENT: Yes (POOR DENTITION; BMT'S ) Chronic Ear Infection Hearing Impairment: Hard of Hearing Cancer: Yes Skin Did You Recieve Any Treatments: Yes What Type of Treatment Did You: Surgical Intervention Psychosocial: Yes Anxiety, Suicide Attempts, Depression Integumentary: No Blood Disorders: No Adverse Reaction/Blood Tranf: No (N/A) Family Medical History Cancer 03 FATHER (PROSTATE) 03 MOTHER (BREAST CA ) 09 BROTHER (THROAT/PANCREATIC) 09 SISTER (LIVER) DEAFNESS 03 FATHER 09 BROTHER Family history: Breast disease 03 MOTHER (BREAST CA) History of - respiratory disease Prostate cancer 03 FATHER Stroke 03 MOTHER Visual impairment No Pertinent Family Hx, Cancer Physical Exam Vital Signs Vital Signs - First Documented 04/15/19 04/15/19 19:45 19:55 Temp 97.8 Pulse 89 Resp 26 B/P (MAP) 111/78 (89) Pulse Ox 94 O2 Delivery Room Air O2 Flow Rate 2.00 Capillary Refill : Height, Weight, BMI Height: 5'6.00" Weight: 130lbs. 2.0oz. 58.305639pe; 21.8 BMI Method:Stated General Appearance: No Apparent Distress, WD/WN HEENT: PERRL/EOMI, Normal ENT Inspection Respiratory: Chest Non Tender, Normal Breath Sounds, No Accessory Muscle Use, No Respiratory Distress Cardiovascular: Regular Rate, Rhythm, Normal Peripheral Pulses Gastrointestinal: Normal Bowel Sounds, Non Tender, Soft Extremity: Normal Capillary Refill, Normal Inspection Neurologic/Psychiatric: Alert, Oriented x3 Skin: Normal Color, Warm/Dry Progress/Results/Core Measures Results/Orders Lab Results Laboratory Tests Test 04/15/19 19:55 04/15/19 21:35 Range/Units White Blood Count 6.6 4.3-11.0 10^3/uL Red Blood Count 4.40 4.35-5.85 10^6/uL Hemoglobin 13.8 13.3-17.7 G/DL Hematocrit 42 40-54 % Mean Corpuscular Volume 96 80-99 FL Mean Corpuscular Hemoglobin 31 25-34 PG Mean Corpuscular Hemoglobin Concent 33 32-36 G/DL Red Cell Distribution Width 14.0 10.0-14.5 % Platelet Count 264 130-400 10^3/uL Mean Platelet Volume 8.9 7.4-10.4 FL Neutrophils (%) (Auto) 48 42-75 % Lymphocytes (%) (Auto) 40 12-44 % Monocytes (%) (Auto) 11 0-12 % Eosinophils (%) (Auto) 1 0-10 % Basophils (%) (Auto) 0 0-10 % Neutrophils # (Auto) 3.2 1.8-7.8 X 10^3 Lymphocytes # (Auto) 2.6 1.0-4.0 X 10^3 Monocytes # (Auto) 0.7 0.0-1.0 X 10^3 Eosinophils # (Auto) 0.1 0.0-0.3 10^3/uL Basophils # (Auto) 0.0 0.0-0.1 10^3/uL Prothrombin Time 14.0 12.2-14.7 SEC INR Comment 1.0 0.8-1.4 Activated Partial Thromboplast Time 32 24-35 SEC D-Dimer 0.51 H 0.00-0.49 UG/ML Sodium Level 142 135-145 MMOL/L Potassium Level 3.5 L 3.6-5.0 MMOL/L Chloride Level 107 98-107 MMOL/L Carbon Dioxide Level 22 21-32 MMOL/L Anion Gap 13 5-14 MMOL/L Blood Urea Nitrogen 20 H 7-18 MG/DL Creatinine 0.87 0.60-1.30 MG/DL Estimat Glomerular Filtration Rate > 60 BUN/Creatinine Ratio 23 Glucose Level 122 H 70-105 MG/DL Calcium Level 9.4 8.5-10.1 MG/DL Corrected Calcium 9.4 8.5-10.1 MG/DL Magnesium Level 1.9 1.6-2.4 MG/DL Total Bilirubin 0.5 0.1-1.0 MG/DL Aspartate Amino Transf (AST/SGOT) 16 5-34 U/L Alanine Aminotransferase (ALT/SGPT) 12 0-55 U/L Alkaline Phosphatase 78 40-136 U/L Myoglobin 26.4 10.0-92.0 NG/ML Troponin I < 0.028 < 0.028 <0.028 NG/ML Total Protein 7.0 6.4-8.2 GM/DL Albumin 4.0 3.2-4.5 GM/DL My Orders Orders - ALBA ROSA APRN Cbc With Automated Diff (04/15/19 19:50) Magnesium (04/15/19 19:50) Chest 1 View, Ap/Pa Only (04/15/19 19:50) Ekg Tracing (04/15/19 19:50) Cardiac Profile 1 (04/15/19 19:50) Comprehensive Metabolic Panel (04/15/19 19:50) Myoglobin Serum (04/15/19 19:50) Protime With Inr (04/15/19 19:50) Partial Thromboplastin Time (04/15/19 19:50) O2 (04/15/19 19:50) Monitor-Rhythm Ecg Trace Only (04/15/19 19:50) Lipid Panel (04/16/19 06:00) Ed Iv/Invasive Line Start (04/15/19 19:50) Aspirin Chewable Tablet (Baby Aspirin Ch (04/15/19 20:00) Fentanyl Injection (Sublimaze Injection (04/15/19 20:00) Fibrin Degradation Products (04/15/19 19:55) Troponin I (04/15/19 21:55) Medications Given in ED Current Medications Medications Dose Ordered Sig/Isabell Route Start Time Stop Time Status Last Admin Dose Admin Fentanyl Citrate 50 mcg ONCE ONCE IVP 04/15/19 20:00 04/15/19 20:01 DC 04/15/19 20:01 50 MCG Vital Signs/I&O 04/15/19 04/15/19 04/15/19 19:45 19:45 19:55 Temp 97.8 Pulse 89 Resp 26 B/P (MAP) 111/78 (89) Pulse Ox 94 97 O2 Delivery Room Air Room Air Nasal Cannula O2 Flow Rate 2.00 Departure Impression Primary Impression: Chest pain Qualified Codes: R07.9 - Chest pain, unspecified Disposition: HOME, SELF-CARE Condition: Stable Departure-Patient Inst. Decision time for Depature: 22:13 Referrals: NO,LOCAL PHYSICIAN (PCP/Family) Primary Care Physician Patient Instructions: Chest Pain (DC) ALBA ROSA APRN Apr 15, 2019 19:53
[2019-04-15] MEDS ORDERED: ASPIRIN 81 MG CHEW (CHILDREN'S ASA) PO ONE (20:00)
[2019-04-15] MEDS ORDERED: fentaNYL INJECTION 100 MCG/2 ML AMP IVP ONE (20:00)
[2019-04-15 20:03] LABS: BASOPHILS % (AUTO) 0 % (0-10); EOSINOPHILS # (AUTO) 0.1 10^3/uL (0.0-0.3); EOSINOPHILS % (AUTO) 1 % (0-10); HEMATOCRIT 42 % (40-54); HEMOGLOBIN 13.8 G/DL (13.3-17.7); LYMPHOCYTES # (AUTO) 2.6 X 10^3 (1.0-4.0); LYMPHOCYTES % (AUTO) 40 % (12-44); MEAN CORPUSCULAR HEMOGLOBIN 31 PG (25-34); MEAN CORPUSCULAR HGB CONC 33 G/DL (32-36); MEAN CORPUSCULAR VOLUME 96 FL (80-99); MEAN PLATELET VOLUME 8.9 FL (7.4-10.4); MONOCYTES # (AUTO) 0.7 X 10^3 (0.0-1.0); MONOCYTES % (AUTO) 11 % (0-12); NEUTROPHILS # (AUTO) 3.2 X 10^3 (1.8-7.8); NEUTROPHILS % (AUTO) 48 % (42-75); PLATELET COUNT 264 10^3/uL (130-400); WHITE BLOOD COUNT 6.6 10^3/uL (4.3-11.0)
[2019-04-15 20:15] LABS: FIBRIN DEGRADATION PRODUCTS 0.51 UG/ML (0.00-0.49)
[2019-04-15 20:21] LABS: ALANINE AMINOTRANSFERASE 12 U/L (0-55); ALKALINE PHOSPHATASE 78 U/L (40-136); BILIRUBIN,TOTAL 0.5 MG/DL (0.1-1.0); BUN/CREATININE RATIO 23; CALCIUM 9.4 MG/DL (8.5-10.1); CARBON DIOXIDE 22 MMOL/L (21-32); CREATININE SERUM 0.87 MG/DL (0.60-1.30); GFR ESTIMATED > 60; GLUCOSE 122 MG/DL (70-105); MAGNESIUM 1.9 MG/DL (1.6-2.4)
[2019-04-15 20:35] LABS: CHLORIDE 107 MMOL/L (98-107); POTASSIUM 3.5 MMOL/L (3.6-5.0); SODIUM 142 MMOL/L (135-145)
--- NOTE | 2019-04-15 20:46 | Diagnostic Imaging Report ---
INDICATION: Right-sided chest pain. EXAMINATION: A single view of the chest was obtained. FINDINGS: Normal heart size and vascularity. The lungs are clear. There is no effusion or pneumothorax. There is no acute bony abnormality. IMPRESSION: No acute abnormality is seen with no change from 03/26/2019. Dictated by: Dictated on workstation # [id number]
[2019-04-15] MEDS ORDERED: fentaNYL INJECTION 100 MCG/2 ML AMP IVP PRN (22:30)
[2019-04-15 22:43] VITALS: BP 128/85
== END 2019-04-15 22:45 | disposition home or self-care (01) ==
LOC: EDUNIT# 19:46 → ER 19:48
DX: R07.9 Chest pain, unspecified (principal); J43.9 Emphysema, unspecified; I10 Essential (primary) hypertension; E78.00 Pure hypercholesterolemia, unspecified; I25.10 Atherosclerotic heart disease of native coronary artery without angina pectoris; K21.9 Gastro-esophageal reflux disease without esophagitis; F41.9 Anxiety disorder, unspecified; F32.9 Major depressive disorder, single episode, unspecified; Z80.3 Family history of malignant neoplasm of breast; Z80.0 Family history of malignant neoplasm of digestive organs; Z80.8 Family history of malignant neoplasm of other organs or systems; Z80.42 Family history of malignant neoplasm of prostate; Z85.828 Personal history of other malignant neoplasm of skin; Z88.5 Allergy status to narcotic agent; Z88.6 Allergy status to analgesic agent; Z77.22 Contact with and (suspected) exposure to environmental tobacco smoke (acute) (chronic); Z90.49 Acquired absence of other specified parts of digestive tract
CPT/HCPCS: 36415; 71045; 80053; 83735; 83874; 84484; 85025; 85379; 85610; 85730; 93005; 93041

== ENCOUNTER 2019-07-25 14:35 | Emergency (ER) | payer MEDICARE ==
[~2019-07-25] VITALS: Ht 167.7 cm; Wt 60.8 kg
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
[2019-07-25] MEDS ORDERED: PROMETHAZINE/ CODEINE SYRUP 5 ML UDC PO ONE (15:45)
--- NOTE | 2019-07-25 15:55 | Diagnostic Imaging Report ---
INDICATION: Productive cough. Febrile. COMPARISON: 04/15/2019. FINDINGS: Frontal and lateral views of the chest demonstrate normal heart size and pulmonary vascularity. The lungs are clear. There are no signs of infiltrate, pleural effusions or pneumothoraces. The visualized osseous structures show no acute abnormalities. IMPRESSION: 1. No acute process. No signs of infiltrates, effusions or pneumothoraces. Dictated by: Dictated on workstation # [id number]
--- NOTE | 2019-07-25 15:58 | Diagnostic Imaging Report ---
INDICATION: Thumb injury and pain AP, oblique and lateral views of the left thumb are obtained. There is joint space narrowing, subchondral sclerosis and marginal spurring with subluxation at the first metacarpophalangeal joint. There is flattening of the articular surfaces. This is likely related to chronic underlying ligamentous injury. Otherwise, no acute fracture or malalignment is seen. IMPRESSION: Degenerative changes with subluxation at first metatarsophalangeal joint. This may be related to chronic ligamentous injury with flattening of the articular surfaces. Dictated by: Dictated on workstation # [id number]
[2019-07-25] MEDS ORDERED: PROM118S4 PO (16:26)
[2019-07-25] MEDS ORDERED: PRD20T PO (16:26)
[2019-07-25 16:52] VITALS: BP 141/90
== END 2019-07-25 16:52 | disposition home or self-care (01) ==
LOC: EDUNIT# 14:35 → ER 14:38
DX: J40 Bronchitis, not specified as acute or chronic (principal); G89.29 Other chronic pain; M79.645 Pain in left finger(s); I25.10 Atherosclerotic heart disease of native coronary artery without angina pectoris; E78.00 Pure hypercholesterolemia, unspecified; I10 Essential (primary) hypertension; J44.0 Chronic obstructive pulmonary disease with (acute) lower respiratory infection; K21.9 Gastro-esophageal reflux disease without esophagitis; F41.9 Anxiety disorder, unspecified; F32.9 Major depressive disorder, single episode, unspecified; F17.210 Nicotine dependence, cigarettes, uncomplicated; Z90.49 Acquired absence of other specified parts of digestive tract; Z88.5 Allergy status to narcotic agent; Z88.6 Allergy status to analgesic agent; Z85.828 Personal history of other malignant neoplasm of skin; Z87.828 Personal history of other (healed) physical injury and trauma; Z87.81 Personal history of (healed) traumatic fracture
CPT/HCPCS: 71046; 73140; 87804

== ENCOUNTER 2019-10-12 00:15 | Emergency (ER) | payer MEDICARE ==
[~2019-10-12] VITALS: Ht 168 cm; Wt 60.2 kg
[~2019-10-12 00:15] MED LIST changes: -METO-387 PO; +MTP25TSR PO; +OFLO5DRO33 RIGHT EAR; -OFLO5DRO7 RIGHT EAR; +PROM118S4 PO
[2019-10-12] MEDS ORDERED: PRD20T PO (01:25)
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
[2019-10-12] MEDS ORDERED: HYDROcodone/APAP 5 MG/325 MG (LORTAB) TAB PO ONE (01:30)
[2019-10-12 01:32] VITALS: BP 125/90
--- NOTE | 2019-10-12 07:44 | Diagnostic Imaging Report ---
Indication: Left shoulder pain 3 views of left shoulder show no fracture, dislocation or other acute abnormalities. IMPRESSION: Negative left shoulder Dictated by: Dictated on workstation # [id number]
== END 2019-10-12 01:32 | disposition home or self-care (01) ==
LOC: EDUNIT# 00:15 → ER 00:19
DX: M25.512 Pain in left shoulder (principal); G89.29 Other chronic pain; J43.9 Emphysema, unspecified; F17.210 Nicotine dependence, cigarettes, uncomplicated; Z80.3 Family history of malignant neoplasm of breast; Z80.0 Family history of malignant neoplasm of digestive organs; Z85.828 Personal history of other malignant neoplasm of skin; Z88.6 Allergy status to analgesic agent; Z88.5 Allergy status to narcotic agent; Z80.8 Family history of malignant neoplasm of other organs or systems
CPT/HCPCS: 73030

== ENCOUNTER 2019-10-30 16:52 | Emergency (ER) | payer MEDICARE ==
[~2019-10-30] VITALS: Ht 167.4 cm; Wt 61.2 kg
[2019-10-30] VITALS (7 sets, daily range): BP systolic 128–162; BP diastolic 79–94
[2019-10-30] MEDS ORDERED: LACTATED RINGERS 1,000 ML IV ONE (17:11)
[2019-10-30] MEDS ORDERED: HYOSCYAMINE 0.125 MG (LEVSIN) TAB PO ONE (17:15)
[2019-10-30 17:21] LABS: BASOPHILS # (AUTO) 0.1 10^3/uL (0.0-0.1); BASOPHILS % (AUTO) 1 % (0-10); EOSINOPHILS # (AUTO) 0.1 10^3/uL (0.0-0.3); EOSINOPHILS % (AUTO) 1 % (0-10); HEMATOCRIT 49 % (40-54); LYMPHOCYTES # (AUTO) 3.2 X 10^3 (1.0-4.0); LYMPHOCYTES % (AUTO) 40 % (12-44); MEAN CORPUSCULAR HEMOGLOBIN 32 PG (25-34); MEAN CORPUSCULAR HGB CONC 33 G/DL (32-36); MEAN CORPUSCULAR VOLUME 97 FL (80-99); MEAN PLATELET VOLUME 8.9 FL (7.4-10.4); MONOCYTES # (AUTO) 0.6 X 10^3 (0.0-1.0); MONOCYTES % (AUTO) 7 % (0-12); NEUTROPHILS # (AUTO) 4.2 X 10^3 (1.8-7.8); NEUTROPHILS % (AUTO) 52 % (42-75); PLATELET COUNT 245 10^3/uL (130-400); RED CELL DISTRIBUTION WIDTH 14.2 % (10.0-14.5)
--- NOTE | 2019-10-30 17:26 | ED GI ---
General Chief Complaint: Foreign Body Stated Complaint: FOOD STUCK IN THROAT Nursing Triage Note: piece of hotdog and bun in throat. Sepsis Screen: No Definite Risk History of Present Illness Date Seen by Provider: Oct 30, 2019 Time Seen by Provider: 17:03 Initial Comments 64-year-old male with history of esophageal strictures and multiple EGDs to remove food boluses, reports that he ate a hotdog and bun yesterday at approximately 1900. Since then has been unable to swallow water and feels something is stuck in his throat. He last had an EGD for steak in his throat November 2018. He can swallow saliva but can not swallow water or any food. He is not taking any medications and denies having a medical provider. Normally smokes 1 pack of cigarettes daily, has only smoked 1/2 pack today. Timing/Duration: 12-24 Hours Severity/Quality: Mild Associated Symptoms: Denies Symptoms Allergies and Home Medications Allergies Coded Allergies: ibuprofen (Verified Allergy, Unknown, 04/05/15) HYPERTENSION tramadol (Verified Adverse Reaction, Unknown, VOMIT, 10/03/18) Home Medications Prednisone 20 Mg Tab, 20 MG PO DAILY Prescribed by: KRISTINA GOMES on 10/12/19 0125 Patient Home Medication List Home Medication List Reviewed: Yes Review of Systems Review of Systems Constitutional: no symptoms reported, see HPI Gastrointestinal: See HPI, Difficulty Swallowing, Nausea All Other Systems Reviewed Negative Unless Noted: Yes Past Xqezmro-Luxrwv-Suokxu Hx Past Med/Social Hx: Reviewed Nursing Past Med/Soc Hx Patient Social History Alcohol Use: Denies Use Recreational Drug Use: No Drug of Choice: denies Smoking Status: Current Everyday Smoker Type Used: Cigarettes 2nd Hand Smoke Exposure: Yes Recent Foreign Travel: No Contact w/Someone Who Travel: No Recent Infectious Disease Expo: No Recent Hopitalizations: No Physical Abuse: No Sexual Abuse: No Mistreated: No Fear: No Immunizations Up To Date Tetanus Booster (TDap): Less than 5yrs PED Vaccines UTD: Yes Date of Pneumonia Vaccine: May 26, 2017 Date of Influenza Vaccine: May 24, 2018 Seasonal Allergies Seasonal Allergies: No Past Medical History Surgeries: Yes Appendectomy, Ear Surgery, Gallbladder, Orthopedic Respiratory: Yes Chronic Bronchitis, COPD, Emphysema Cardiac: Yes Coronary Artery Disease, High Cholesterol, Hypertension Neurological: No Reproductive Disorders: No Sexually Transmitted Disease: No HIV/AIDS: No Genitourinary: No Gastrointestinal: Yes Gastroesophageal Reflux Musculoskeletal: Yes (chronic left shoulder pain) Degenerate Disk Disease, Arthritis, Chronic Back Pain Endocrine: No HEENT: Yes (POOR DENTITION; BMT'S ) Chronic Ear Infection Hearing Impairment: Hard of Hearing Cancer: Yes Skin Did You Recieve Any Treatments: Yes What Type of Treatment Did You: Surgical Intervention Psychosocial: Yes Anxiety, Suicide Attempts, Depression Integumentary: No Blood Disorders: No Adverse Reaction/Blood Tranf: No (N/A) Family Medical History Cancer 03 FATHER (PROSTATE) 03 MOTHER (BREAST CA ) 09 BROTHER (THROAT/PANCREATIC) 09 SISTER (LIVER) DEAFNESS 03 FATHER 09 BROTHER Family history: Breast disease 03 MOTHER (BREAST CA) History of - respiratory disease Prostate cancer 03 FATHER Stroke 03 MOTHER Visual impairment No Pertinent Family Hx, Cancer Physical Exam Vital Signs Vital Signs - First Documented 10/30/19 16:57 Temp 36.5 Pulse 87 Resp 22 B/P (MAP) 174/100 (124) Pulse Ox 98 O2 Delivery Room Air Capillary Refill : Less Than 3 Seconds Height/Weight/BMI Height: 5'6.00" Weight: 130lbs. 2.0oz. 59.502166yl; 21.00 BMI Method:Stated General Appearance: WD/WN, no apparent distress HEENT: PERRL/EOMI, normal ENT inspection, TMs normal, pharynx normal, other (No teeth present in mouth) Neck: non-tender, full range of motion, supple, normal inspection Respiratory: chest non-tender, lungs clear, normal breath sounds Cardiovascular: normal peripheral pulses, regular rate, rhythm Gastrointestinal: normal bowel sounds, non tender, soft Neurologic/Psychiatric: no motor/sensory deficits, alert, normal mood/affect, oriented x 3 Skin: normal color, warm/dry Progress/Results/Core Measures Results/Orders Lab Results Laboratory Tests Test 10/30/19 17:00 Range/Units White Blood Count 8.0 4.3-11.0 10^3/uL Red Blood Count 5.02 4.35-5.85 10^6/uL Hemoglobin 16.0 13.3-17.7 G/DL Hematocrit 49 40-54 % Mean Corpuscular Volume 97 80-99 FL Mean Corpuscular Hemoglobin 32 25-34 PG Mean Corpuscular Hemoglobin Concent 33 32-36 G/DL Red Cell Distribution Width 14.2 10.0-14.5 % Platelet Count 245 130-400 10^3/uL Mean Platelet Volume 8.9 7.4-10.4 FL Neutrophils (%) (Auto) 52 42-75 % Lymphocytes (%) (Auto) 40 12-44 % Monocytes (%) (Auto) 7 0-12 % Eosinophils (%) (Auto) 1 0-10 % Basophils (%) (Auto) 1 0-10 % Neutrophils # (Auto) 4.2 1.8-7.8 X 10^3 Lymphocytes # (Auto) 3.2 1.0-4.0 X 10^3 Monocytes # (Auto) 0.6 0.0-1.0 X 10^3 Eosinophils # (Auto) 0.1 0.0-0.3 10^3/uL Basophils # (Auto) 0.1 0.0-0.1 10^3/uL Sodium Level 143 135-145 MMOL/L Potassium Level 3.4 L 3.6-5.0 MMOL/L Chloride Level 106 98-107 MMOL/L Carbon Dioxide Level 23 21-32 MMOL/L Anion Gap 14 5-14 MMOL/L Blood Urea Nitrogen 9 7-18 MG/DL Creatinine 0.81 0.60-1.30 MG/DL Estimat Glomerular Filtration Rate > 60 BUN/Creatinine Ratio 11 Glucose Level 76 70-105 MG/DL Calcium Level 9.2 8.5-10.1 MG/DL Corrected Calcium 9.0 8.5-10.1 MG/DL Total Bilirubin 0.3 0.1-1.0 MG/DL Aspartate Amino Transf (AST/SGOT) 14 5-34 U/L Alanine Aminotransferase (ALT/SGPT) 11 0-55 U/L Alkaline Phosphatase 94 40-136 U/L Total Protein 7.5 6.4-8.2 GM/DL Albumin 4.3 3.2-4.5 GM/DL My Orders Orders - FRAN MORFIN Hyoscyamine Sl Tablet (Levsin Sl Tablet) (10/30/19 17:15) Ed Iv/Invasive Line Start (10/30/19 17:11) Lactated Ringers (Lr 1000 Ml Iv Solution (10/30/19 17:11) Cbc With Automated Diff (10/30/19 17:16) Comprehensive Metabolic Panel (10/30/19 17:16) Succinylcholine Injection (Succinylcholi (10/30/19 17:55) Propofol Injection (Diprivan Injection) (10/30/19 17:55) Ondansetron Injection (Zofran Injectio (10/30/19 17:55) Fentanyl Injection (Sublimaze Injection (10/30/19 17:55) Midazolam Injection (Versed Injection) (10/30/19 17:55) Lidocaine 2% Pf 5 Ml (Xylocaine 2% Pf) (10/30/19 18:27) Propofol Injection (Diprivan Injection) (10/30/19 18:46) Sevoflurane (15 Min) Inhal Jaimee (Ultane ( (10/30/19 18:46) Medications Given in ED Current Medications Medications Dose Ordered Sig/Isabell Route Start Time Stop Time Status Last Admin Dose Admin Hyoscyamine Sulfate 0.125 mg ONCE ONCE PO 10/30/19 17:15 10/30/19 17:16 DC 10/30/19 17:19 0.125 MG Lactated Ringer's 1,000 ml @ 0 mls/hr Q0M ONCE IV 10/30/19 17:11 10/30/19 17:12 DC 10/30/19 17:20 0 MLS/HR Vital Signs/I&O 10/30/19 10/30/19 10/30/19 10/30/19 16:57 19:06 19:06 19:10 Temp 36.5 36.9 Pulse 87 Resp 22 16 18 B/P (MAP) 174/100 (124) 128/83 (98) 136/89 (105) Pulse Ox 98 99 98 O2 Delivery Room Air OxyMask OxyMask OxyMask O2 Flow Rate 10 10 6 10/30/19 10/30/19 10/30/19 10/30/19 19:20 19:20 19:30 19:35 Resp 21 18 B/P (MAP) 138/87 (104) 135/83 (100) Pulse Ox 97 96 O2 Delivery OxyMask OxyMask Room Air Room Air O2 Flow Rate 3 3 10/30/19 10/30/19 10/30/19 19:40 19:50 19:50 Resp 18 17 B/P (MAP) 135/82 (99) 129/79 (96) Pulse Ox 96 93 O2 Delivery Room Air Room Air Room Air Blood Pressure Mean: 124 Progress Progress Note : Time: 17:03 Progress Note Patient seen and evaluated, will obtain labs, LR 1 L per IV, Levsin one tab sublingual. [address] Romero by phone, agreed with recommendation for EGD. Anesthesia will be notified and endoscopy nurse by greenhouse grower. 1749 Anesthesia here to evaluate patient. 1814 Dr. Romero here to evaluate patient. 2004 Patient returned from [facility] on cart, no complaints at this time. 2014 take ice chips, no dysphagia. 2034 discharge instructions and return precautions reviewed with the patient. He does have a family member who will be driving him home and staying with him. Departure Impression Primary Impression: ESOPHAGEAL OBSTRUCTION FROM FOOD BOLUS Disposition: HOME, SELF-CARE Condition: Improved Departure-Patient Inst. Decision time for Depature: 20:15 Ref[place]: [facility] [place] Primary Care Physician Patient Instructions: EGD-ESOPHAGOGASTRODUODENOSCOPY, Foreign Body, Swallowed, Adult (DC) Add. Discharge Instructions: Ice chips and clear liquid diet for the next 4-6 hours. Then bland, blended to soft food as tolerated. Follow up at [facility] to see about dentures. Follow-up with your primary care provider if symptoms are not improving or worsen. You may alternate between Tylenol 650 mg and ibuprofen 600 mg every 4 hours for pain. You may use Cepacol lozenges for throat pain. Return to the emergency department for new, urgent health care needs. All discharge instructions reviewed with patient and/or family. Voiced understanding. Copy Copies To 1: FLORECITA ROMERO AMY ARNP Oct 30, 2019 17:26
[2019-10-30 17:43] LABS: ALANINE AMINOTRANSFERASE 11 U/L (0-55); ALBUMIN 4.3 GM/DL (3.2-4.5); ALKALINE PHOSPHATASE 94 U/L (40-136); BILIRUBIN,TOTAL 0.3 MG/DL (0.1-1.0); BUN/CREATININE RATIO 11; CALCIUM 9.2 MG/DL (8.5-10.1); CARBON DIOXIDE 23 MMOL/L (21-32); CHLORIDE 106 MMOL/L (98-107); CREATININE SERUM 0.81 MG/DL (0.60-1.30); GFR ESTIMATED > 60; GLUCOSE 76 MG/DL (70-105); POTASSIUM 3.4 MMOL/L (3.6-5.0); SODIUM 143 MMOL/L (135-145); TOTAL PROTEIN 7.5 GM/DL (6.4-8.2)
--- NOTE | 2019-10-30 17:44 | NUR ---
MELISSA MONTES HERE TO SEE PT
[2019-10-30] MEDS ORDERED: SUCCINYLCHOLINE INJ 100 MG/5 ML SYR ONE (17:55)
[2019-10-30] MEDS ORDERED: MIDAZOLAM 2 MG/2 ML (VERSED) VIAL ONE (17:55)
[2019-10-30] MEDS ORDERED: proPOfol 200 MG/20 ML (DIPRIVAN) VIAL IV ONE ×2 (17:55→18:46)
[2019-10-30] MEDS ORDERED: ONDANSETRON 4 MG/2 ML (SDV) Z0FRAN ONE (17:55)
[2019-10-30] MEDS ORDERED: fentaNYL INJECTION 100 MCG/2 ML AMP ONE (17:55)
--- NOTE | 2019-10-30 18:05 | NUR ---
DR MORALES HERE TO SEE PT, CONSENT FORM FILLED OUT. CONSENT FORM SIGNED BY PT
--- NOTE | 2019-10-30 18:24 | NUR ---
PT TO ENDO PER BED, PLAN TO RETURN TO ED FOR DISCHARGE
--- NOTE | 2019-10-30 18:26 | History & Physical-Surgical ---
[facility] 10/30/19 1826: History of Present Illness History of Present Illness Reason for visit/HPI C/C: food stuck in throat Anjel is a 64 y/o male that presented to the [facility] ER with food stuck in his throat. The patient was eating a hot dog last night 10/29/2019 around 7pm when it became stuck in throat. The patient has been unable to clear it since yesterday. He admits to this being the sixth time this has happened. He michael de león has pain that is 6-7/10 and is located mid esophagus. Denies radiation of pain. Nothing he has done has made it better and drinking fluids to wash it down makes it worse. He has associated symptoms of nausea and shortness of breath. Date of Admission Date Seen by a Provider: Oct 30, 2019 Time Seen by a Provider: 18:00 I consulted on this patient on 10/30/19 18:21 Attending Physician Admitting Physician [place] [place] [place] Allergies and Home Medications Allergies Coded Allergies: ibuprofen (Verified Allergy, Unknown, 04/05/15) HYPERTENSION tramadol (Verified Adverse Reaction, Unknown, VOMIT, 10/03/18) Home Medications Prednisone 20 Mg Tab, 20 MG PO DAILY Prescribed by: KRISTINA GOMES on 10/12/19 0125 Past Iiepgco-Yctiey-Zelilo Hx Patient Social History Alcohol Use: Denies Use Recreational Drug Use: No Drug of Choice: denies Smoking Status: Current Everyday Smoker Type Used: Cigarettes 2nd Hand Smoke Exposure: Yes Recent Foreign Travel: No Contact w/Someone Who Travel: No Recent Infectious Disease Expo: No Recent Hopitalizations: No Immunizations Up To Date Tetanus Booster (TDap): Less than 5yrs PED Vaccines UTD: Yes Date of Pneumonia Vaccine: May 26, 2017 Date of Influenza Vaccine: May 24, 2018 Seasonal Allergies Seasonal Allergies: No Surgeries History of Surgeries: Yes Surgeries: Appendectomy, Ear Surgery, Gallbladder, Orthopedic Respiratory History of Respiratory Disorde: Yes Respiratory Disorders: Chronic Bronchitis, COPD, Emphysema Cardiovascular History of Cardiac Disorders: Yes Cardiac Disorders: Coronary Artery Disease, High Cholesterol, Hypertension Neurological History of Neurological Disord: No Reproductive System Hx Reproductive Disorders: No Sexually Transmitted Disease: No HIV/AIDS: No Genitourinary History of Genitourinary Disor: No Gastrointestinal History of Gastrointestinal Di: Yes Gastrointestinal Disorders: Gastroesophageal Reflux Musculoskeletal History of Musculoskeletal Dis: Yes (chronic left shoulder pain) Musculoskeletal Disorders: Degenerate Disk Disease, Arthritis, Chronic Back Pain Endocrine History of Endocrine Disorders: No HEENT History of HEENT Disorders: Yes (POOR DENTITION; BMT'S ) HEENT Disorders: Chronic Ear Infection Hearing Impairment: Hard of Hearing Cancer History of Cancer: Yes Cancer: Skin Psychosocial History of Psychiatric Problem: Yes Behavioral Health Disorders: Anxiety, Suicide Attempts, Depression Integumentary History of Skin or Integumenta: No Blood Transfusions History of Blood Disorders: No Adverse Reaction to a Blood Tr: No (N/A) Family Medical History Significant Family History: No Pertinent Family Hx, Cancer Family Medial History: Cancer 03 FATHER (PROSTATE) 03 MOTHER (BREAST CA ) 09 BROTHER (THROAT/PANCREATIC) 09 SISTER (LIVER) DEAFNESS 03 FATHER 09 BROTHER Family history: Breast disease 03 MOTHER (BREAST CA) History of - respiratory disease Prostate cancer 03 FATHER Stroke 03 MOTHER Visual impairment Review of Systems Constitutional: No chills, No weight loss EENTM: hoarseness; No blurred vision Respiratory: No cough; short of breath Cardiovascular: No chest pain, No palpitations Gastrointestinal: No abdominal pain; dysphagia; No hematemesis; nausea; No vomiting Physical Exam Vital Signs Vital Signs - First Documented 10/30/19 16:57 Temp 36.5 Pulse 87 Resp 22 B/P (MAP) 174/100 (124) Pulse Ox 98 O2 Delivery Room Air Capillary Refill : Less Than 3 Seconds Height, Weight, BMI Height: 5'6.00" Weight: 130lbs. 2.0oz. [id number]; 21.00 BMI Method:Stated General Appearance: WD/WN, Mild Distress HEENT: PERRL/EOMI, Moist Mucous Membranes Neck: Normal Inspection, Non Tender Respiratory: Chest Non Tender, No Accessory Muscle Use Cardiovascular: No Edema, Normal Peripheral Pulses Gastrointestinal: Non Tender, Soft; No Distended, No Guarding Extremity: Normal Capillary Refill, No Calf Tenderness, No Pedal Edema Neurologic/Psychiatric: Alert, Oriented x3 Skin: Normal Color, Warm/Dry Lymphatic: No Adenopathy (No anterior or posterior cervical lymphadenothy ) Data Review Labs Laboratory Tests 10/30/19 17:00: White Blood Count 8.0, Red Blood Count 5.02, Hemoglobin 16.0, Hematocrit 49, Mean Corpuscular Volume 97, Mean Corpuscular Hemoglobin 32, Mean Corpuscular Hemoglobin Concent 33, Red Cell Distribution Width 14.2, Platelet Count 245, Mean Platelet Volume 8.9, Neutrophils (%) (Auto) 52, Lymphocytes (%) (Auto) 40, Monocytes (%) (Auto) 7, Eosinophils (%) (Auto) 1, Basophils (%) (Auto) 1, Neutrophils # (Auto) 4.2, Lymphocytes # (Auto) 3.2, Monocytes # (Auto) 0.6, Eosinophils # (Auto) 0.1, Basophils # (Auto) 0.1, Sodium Level 143, Potassium Level 3.4L, Chloride Level 106, Carbon Dioxide Level 23, Anion Gap 14, Blood Urea Nitrogen 9, Creatinine 0.81, Estimat Glomerular Filtration Rate > 60, BUN/Creatinine Ratio 11, Glucose Level 76, Calcium Level 9.2, Corrected Calcium 9.0, Total Bilirubin 0.3, Aspartate Amino Transf (AST/SGOT) 14, Alanine Aminotransferase (ALT/SGPT) 11, Alkaline Phosphatase 94, Total Protein 7.5, Albumin 4.3 Assessment/Plan Assessment/Plan Assessment/Plan Esophageal food bolus obstruction Nausua Shortness of breath The patient will need EGD with disimpaction. The patient was informed of the risk and benefits of this procedure. He understands and wishes to proceed. Educated on obtaining dentures, and properly organizing food at home to avoid these types of situations. FLORECITA MORALES DO 10/30/191936: History of Present Illness History of Present Illness Reason for visit/HPI Seen and evaluated in ER for esophageal food bolus 64 year old male with history of multiple esophageal obstructions. Unable to chew food for he has no teeth. Has been eating hot dog and bun last night around 7 and it got stuck. Unable to swallow now and having discomfort. Had a hard time sleeping last night. Having nausea and shortness of breath. Date of Admission N Allergies and Home Medications Allergies Coded Allergies: ibuprofen (Verified Allergy, Unknown, 04/05/15) HYPERTENSION tramadol (Verified Adverse Reaction, Unknown, VOMIT, 10/03/18) Home Medications Prednisone 20 Mg Tab, 20 MG PO DAILY Prescribed by: KRISTINA GOMES on 10/12/19 4469 Patient Home Medication List Home Medication List Reviewed: Yes Past Bubqaqr-Iswmzb-Rdavfb Hx Reviewed Nursing Assessment Reviewed/Agree w Nursing PMH: Yes Family Medical History Significant Family History: No Pertinent Family Hx Family Medial History: Cancer 03 FATHER (PROSTATE) 03 MOTHER (BREAST CA ) 09 BROTHER (THROAT/PANCREATIC) 09 SISTER (LIVER) DEAFNESS 03 FATHER 09 BROTHER Family history: Breast disease 03 MOTHER (BREAST CA) History of - respiratory disease Prostate cancer 03 FATHER Stroke 03 MOTHER Visual impairment Review of Systems Constitutional: No chills, No diaphoresis EENTM: hoarseness; No blurred vision Respiratory: No cough; short of breath Cardiovascular: No chest pain, No palpitations Gastrointestinal: No abdominal pain; dysphagia; No hematemesis; nausea; No vomiting Genitourinary: no symptoms reported; No decreased output, No discharge Musculoskeletal: no symptoms reported Skin: no symptoms reported Psychiatric/Neurological: No Symptoms Reported Physical Exam General Appearance: WD/WN, Mild Distress HEENT: Other (edentulous) Neck: Normal Inspection, Non Tender Respiratory: Chest Non Tender, No Accessory Muscle Use, No Respiratory Distress Cardiovascular: Regular Rate, Rhythm Gastrointestinal: No Distended, No Guarding Rectal: Deferred Extremity: Normal Capillary Refill, No Calf Tenderness Neurologic/Psychiatric: Alert, Oriented x3 Skin: Normal Color, Warm/Dry Lymphatic: No Adenopathy (No anterior or posterior cervical lymphadenothy ) Assessment/Plan Assessment/Plan Admission Diagonsis esophageal food bolus/obstruction Admission Status: Other (Outpt Proc) Assessment/Plan Esophageal food bolus/obstruction Nausea Shortness of breath secondary to above discussed risks and benefits of egd to remove food bolus and he understands and wishes to proceed patient discuss getting with [facility] dentist to work on dentures, he has had multiple episodes where this would likely be solved if could chew his food. Supervisory-Addendum Brief Verification & Attestation Participated in pt care: history, MDM, physical Personally performed: exam, history, MDM, supervision of care Care discussed with: Medical Student Procedures: n/a Results interpretation: Verified all documentation Verification and Attestation of Medical Student E/M Service A medical student performed and documented this service in my presence. I reviewed and verified all information documented by the medical student and made modifications to such information, when appropriate. I personally performed the physical exam and medical decision making. Florecita Morales, Oct 30, 2019,18:01 NICOLE MONTES Oct 30, 2019 18:26 FLORECITA MORALES DO Oct 30, 2019 19:37
[2019-10-30] MEDS ORDERED: LIDOCAINE PF 2% 5 ML (XYLOCAINE) VIAL ONE (18:27)
[2019-10-30] MEDS ORDERED: SEVOFLURANE (ULTANE) 15 ML INHAL SOLN ONE (18:46)
--- NOTE | 2019-10-30 19:00 | NUR ---
assumed primary nurse role.
[2019-10-30] MEDS ORDERED: morphine INJ 10 MG/ML 1ML (SYR OR VIAL) IVP ONE (19:15)
[2019-10-30] MEDS ORDERED: MEPERIDINE (DEMEROL) INJ 50 MG/ML IVP ONE (19:15)
--- NOTE | 2019-10-30 19:15 | NUR ---
REPORT RECIEVED FROM OMER CARVER. DARREN THAT PT IS RECOVERING WELL IN HER DEPT. ETA 30MIN TO THIS DEPT.
--- NOTE | 2019-10-30 19:23 | Progress Note-Post Operative ---
Post-Operative Progess Note Surgeon (s)/Career Development Specialist (s) Surgeon FLORECITA MORALES DO Career Development Specialist: NA Pre-Operative Diagnosis Esophageal food bolus Post-Operative Diagnosis same Procedure & Operative Findings Date of Procedure 10/30/19 Procedure Performed/Findings EGD with removal of food bolus Anesthesia Type general Estimated Blood Loss Estimated blood loss (mL): none Specimens/Packing Specimens Removed none FLORECITA MORALES DO Oct 30, 2019 19:23
--- NOTE | 2019-10-30 19:27 | Discharge Inst-Simple/Standard ---
Discharge Inst-Standard Patient Instructions/Follow Up Plan of Care/Instructions/FU: 1 week Heather Follow up with Dentist in regards to dentures. If not able to go to dentist look into [facility] dental Activity as Tolerated: Yes Discharge Diet: Soft Diet FLORECITA MORALES DO Oct 30, 2019 19:27
--- NOTE | 2019-10-30 20:58 | OPERATIVE REPORT ---
DATE OF SERVICE: 10/30/2019 PREOPERATIVE DIAGNOSIS: Esophageal food bolus. POSTOPERATIVE DIAGNOSIS: Esophageal food bolus. PROCEDURE: EGD with removal of food bolus of esophagus. SURGEON: Florecita Romero DO ANESTHESIA: General. ESTIMATED BLOOD LOSS: None. COMPLICATIONS: None. INDICATIONS: The patient is a 64-year-old male who is edentulous and has issues with chewing. He yesterday evening around 7 p.m. was eating hot dog and bread, which then got stuck and the patient has been having difficulty since he is unable to tolerate any food or liquids, which he just vomits back up. The patient has had multiple episodes in the last 2 years. The patient does not have any dentures and unable to chew his food. The patient understands risks and benefits of procedure and wished to proceed with procedure. Consent was signed in the chart. DESCRIPTION OF PROCEDURE: The patient was taken to the operating suite. He was intubated for airway protection. Timeout was performed. Scope was inserted in the mouth and esophagus demonstrating significant food bolus, which was able to be suctioned and then once the fluid and part of the food particulate was suctioned and removed, the food bolus was able to be pushed into the stomach without any difficulty. Scope was continued to be inserted into the stomach and then through the pylorus into the duodenum without difficulties. There were no polyps, masses or ulcerations visualized within the duodenum. Scope was slowly retracted back into the stomach, further insufflated noting food particulate. Scope was retroflexed noting no other pathology. Scope was returned to its normal position, slowly withdrawn to the distal esophagus, which had open appearance. No evidence of any stricture at this point. Scope was then slowly retracted back noting no other pathology. The patient tolerated procedure well without any complications. He was taken to recovery room in stable condition. RECOMMENDATIONS: The patient had recommended to see dentist to work on dentures. The patient recommended a soft diet and stats that he is able to tolerate chewing to swallow. The patient will follow up with myself in approximately 1 to 2 weeks to make sure he is arranging the services. Job ID: [id number] DocumentID: [id number] Dictated Date: 10/30/2019 19:30:07 Lasting Machine Operator Date: 10/30/2019 20:56:50 Dictated By: FLORECITA ROMERO DO
--- NOTE | 2019-10-31 06:56 | Anesthesia-General Post-Op ---
General Patient Condition Mental Status/LOC: Same as Preop Cardiovascular: Satisfactory Nausea/Vomiting: Absent Respiratory: Satisfactory Pain: Controlled Complications: Absent Post Op Complications Complications None Follow Up Care/Instructions Patient Instructions None needed. Anesthesia/Patient Condition Patient Condition Patient is doing well, no complaints, stable vital signs, no apparent adverse anesthesia problems. No complications reported per nursing. MELISSA VASQUEZ CRNA Oct 31, 2019 06:56
== END 2019-10-30 20:30 | disposition home or self-care (01) ==
LOC: EDUNIT# 16:52 → ER 16:53
DX: T18.128A Food in esophagus causing other injury, initial encounter (principal); J43.9 Emphysema, unspecified; F17.210 Nicotine dependence, cigarettes, uncomplicated; Z88.6 Allergy status to analgesic agent; Z88.5 Allergy status to narcotic agent; Z85.828 Personal history of other malignant neoplasm of skin; Z80.3 Family history of malignant neoplasm of breast; Z80.0 Family history of malignant neoplasm of digestive organs; Z80.8 Family history of malignant neoplasm of other organs or systems; Z80.42 Family history of malignant neoplasm of prostate
CPT/HCPCS: 36415; 80053; 85025

== ENCOUNTER → 2020-01-31 | Outpatient (CLI) | payer MEDICARE ==
[~2020-01-31] MED LIST changes: -PROM118S4 PO; +PROM118S5 PO
--- NOTE | 2020-01-31 16:10 | Diagnostic Imaging Report ---
PROCEDURE: MRI lumbar spine without contrast. TECHNIQUE: Multiplanar, multisequence MRI of the lumbar spine was performed without contrast. INDICATION: Back pain with left-sided sciatica. COMPARISON: 10/08/2015. FINDINGS: 5 lumbar type vertebral bodies are visualized with the last well-formed disc space designated L5-S1. Posterior fusion changes are visualized from L3 to L5. No acute fracture or dislocation is seen in the lumbar spine. There is straightening of the lumbar spine with reversal of the normal lordotic curvature centered at the L1-L2 level. Vertebral body heights are well-maintained. Endplate degenerative changes are present at the L1-L2 level. The conus terminates at the L1 level. No masses are seen associated with the conus or nerve roots of the cauda equina. No epidural collections are identified. Multilevel degenerative changes are seen in the lumbar spine with disc bulges, facet hypertrophy, and buckling of the ligamentum flavum. T12-L1: No significant spinal canal or foraminal stenosis. L1-L2: Broad-based disc bulge, facet hypertrophy, and buckling of ligamentum flavum results in vxhjmpye-wg-uqbivb spinal canal stenosis and timmsrmv-cu-zuskdn left and moderate right foraminal stenosis. L2-L3: Broad-based disc bulge, facet hypertrophy, and buckling of ligamentum flavum results in severe spinal canal stenosis and funnkqov-mj-kquwwz bilateral foraminal stenosis. L3-L4: Facet hypertrophy and marginal osteophytes result in no significant spinal canal narrowing and mild bilateral foraminal narrowing. L4-L5: Facet hypertrophy and buckling of the ligamentum flavum results in no significant spinal canal narrowing and yxfrkkat-hi-rltvhv bilateral foraminal stenosis. L5-S1: Broad-based disc bulge, facet hypertrophy, and buckling of the ligamentum flavum results in no significant spinal canal narrowing and moderate left and fxjn-xr-bxrhrdsj right foraminal stenosis. Paravertebral soft tissues are unremarkable. IMPRESSION: 1. No acute fracture or dislocation in the lumbar spine. 2. Multilevel degenerative changes in the lumbar spine, greatest at L1-L2 and L2-L3. Endplate degenerative changes are also present at the L1-L2 level. These degenerative changes have progressed since the prior exam in 2016. 3. Postsurgical changes of posterior fusion from L3 to L5. Dictated by: Dictated on workstation # [id number]
== END ==
LOC: RAD 13:58
PROVIDERS: ATTEND Physician Assistant
DX: M54.42 Lumbago with sciatica, left side (principal); M47.896 Other spondylosis, lumbar region; Z98.1 Arthrodesis status
CPT/HCPCS: 72148

== ENCOUNTER 2020-03-09 13:33 | Emergency (ER) | payer MEDICARE ==
[~2020-03-09] VITALS: Ht 167.7 cm; Wt 55.3 kg
[2020-03-09 13:35] VITALS: BP 180/102
[2020-03-09] MEDS ORDERED: LACTATED RINGERS 1,000 ML IV ONE (13:39)
[2020-03-09] MEDS ORDERED: ACETAMINOPHEN 325 MG TABLET PO ONE (13:45)
--- NOTE | 2020-03-09 13:51 | ED General ---
General Chief Complaint: General Problems/Pain Stated Complaint: HEAT EXHAUSTION Nursing Triage Note: PT BROUGHT IN BY [facility] AFTER FOUND WALKING DOWN THE ROAD. PER PT, HE WAS WALKING FROM [place] BACK TO [place]. PT IS COMPLAINING OF LEG PAIN. STATES HAS NOT HAD WATER SINCE THIS MORNING AND HAS NOT EATEN SINCE THURSDAY. Nursing Sepsis Screen: No Definite Risk Source of Information: Patient Exam Limitations: No Limitations History of Present Illness Date Seen by Provider: Mar 09, 2020 Time Seen by Provider: 13:31 Initial Comments Patient presents to ER by [facility] with chief complaint he was walking on the [place] from [facility] back to [place] today with no water on his person. Police found and gave him a bottle of water. He is having cramping sharp stabbing pains in both legs. He denies history of drug use but does smoke cigarettes about pack a day. He denies any alcohol use. He has a history of high blood pressure but no other significant medical problems. He has not had anything for the pain yet. He rates pain as an 8 out of 10. No chest pain shortness of breath fevers chills or nausea. Allergies and Home Medications Allergies Coded Allergies: ibuprofen (Verified Allergy, Unknown, 04/05/15) HYPERTENSION tramadol (Verified Adverse Reaction, Unknown, VOMIT, 10/03/18) Home Medications Prednisone 20 Mg Tab, 20 MG PO DAILY Prescribed by: KRISTINA GOMES on 10/12/19 0125 Patient Home Medication List Home Medication List Reviewed: Yes Review of Systems Review of Systems Constitutional: No chills, No diaphoresis EENTM: No ear discharge, No eye pain Respiratory: No cough, No short of breath Cardiovascular: No chest pain, No edema Gastrointestinal: No abdominal pain, No constipation, No diarrhea, No nausea Genitourinary: No discharge, No dysuria Musculoskeletal: No back pain, No joint pain Skin: No pruritus, No rash All Other Systems Reviewed Negative Unless Noted: Yes Past Yxzedht-Gimhmo-Ebcbdi Hx Patient Social History Alcohol Use: Denies Use Recreational Drug Use: No Drug of Choice: denies Smoking Status: Current Everyday Smoker Type Used: Cigarettes 2nd Hand Smoke Exposure: Yes Recent Foreign Travel: No Contact w/Someone Who Travel: No Recent Infectious Disease Expo: No Recent Hopitalizations: No Immunizations Up To Date Tetanus Booster (TDap): Less than 5yrs PED Vaccines UTD: Yes Date of Pneumonia Vaccine: May 26, 2017 Date of Influenza Vaccine: May 24, 2018 Seasonal Allergies Seasonal Allergies: No Past Medical History Surgeries: Yes Appendectomy, Ear Surgery, Gallbladder, Orthopedic Respiratory: Yes Chronic Bronchitis, COPD, Emphysema Cardiac: Yes Coronary Artery Disease, High Cholesterol, Hypertension Neurological: No Reproductive Disorders: No Sexually Transmitted Disease: No HIV/AIDS: No Genitourinary: No Gastrointestinal: Yes Gastroesophageal Reflux Musculoskeletal: Yes (chronic left shoulder pain) Degenerate Disk Disease, Arthritis, Chronic Back Pain Endocrine: No HEENT: Yes (POOR DENTITION; BMT'S ) Chronic Ear Infection Hearing Impairment: Hard of Hearing Cancer: Yes Skin Did You Recieve Any Treatments: Yes What Type of Treatment Did You: Surgical Intervention Psychosocial: Yes Anxiety, Suicide Attempts, Depression Integumentary: No Blood Disorders: No Adverse Reaction/Blood Tranf: No (N/A) Family Medical History Cancer 03 FATHER (PROSTATE) 03 MOTHER (BREAST CA ) 09 BROTHER (THROAT/PANCREATIC) 09 SISTER (LIVER) DEAFNESS 03 FATHER 09 BROTHER Family history: Breast disease 03 MOTHER (BREAST CA) History of - respiratory disease Prostate cancer 03 FATHER Stroke 03 MOTHER Visual impairment No Pertinent Family Hx Physical Exam Vital Signs Vital Signs - First Documented 03/09/20 13:35 Temp 36.9 Pulse 63 Resp 20 B/P (MAP) 180/102 (128) Pulse Ox 99 O2 Delivery Room Air Capillary Refill : Less Than 3 Seconds Height, Weight, BMI Height: 5'6.00" Weight: 130lbs. 2.0oz. [id number]; 19.00 BMI Method:Stated General Appearance: WD/WN, Mild Distress Eyes: Bilateral Eye Normal Inspection, Bilateral Eye PERRL, Bilateral Eye EOMI HEENT: PERRL/EOMI, Normal ENT Inspection, Pharynx Normal; No Moist Mucous Membranes Neck: Full Range of Motion, Normal Inspection Respiratory: Lungs Clear, Normal Breath Sounds, No Accessory Muscle Use, No Respiratory Distress Cardiovascular: Regular Rate, Rhythm, No Edema, Normal Peripheral Pulses Gastrointestinal: Normal Bowel Sounds, Non Tender, Soft Extremity: Normal Capillary Refill, Normal Inspection, No Pedal Edema Neurologic/Psychiatric: Alert, Oriented x3, No Motor/Sensory Deficits, Normal Mood/Affect Skin: Normal Color, Warm/Dry Progress/Results/Core Measures Suspected Sepsis Recent Fever Within 48 Hours: No Infection Criteria Present: None New/Unexplained Altered Menta: No Sepsis Screen: No Definite Risk SIRS Temperature: Pulse: 63 Respiratory Rate: 20 Laboratory Tests 03/09/20 13:58: White Blood Count 6.7 Blood Pressure 180 /102 Mean: 128 Laboratory Tests 03/09/20 13:58: Creatinine 0.78, Platelet Count 203, Total Bilirubin 0.8 Results/Orders Lab Results Laboratory Tests Test 03/09/20 13:58 Range/Units White Blood Count 6.7 4.3-11.0 10^3/uL Red Blood Count 4.43 4.35-5.85 10^6/uL Hemoglobin 14.2 13.3-17.7 G/DL Hematocrit 43 40-54 % Mean Corpuscular Volume 98 80-99 FL Mean Corpuscular Hemoglobin 32 25-34 PG Mean Corpuscular Hemoglobin Concent 33 32-36 G/DL Red Cell Distribution Width 14.0 10.0-14.5 % Platelet Count 203 130-400 10^3/uL Mean Platelet Volume 8.9 7.4-10.4 FL Neutrophils (%) (Auto) 65 42-75 % Lymphocytes (%) (Auto) 25 12-44 % Monocytes (%) (Auto) 9 0-12 % Eosinophils (%) (Auto) 0 0-10 % Basophils (%) (Auto) 0 0-10 % Neutrophils # (Auto) 4.4 1.8-7.8 X 10^3 Lymphocytes # (Auto) 1.7 1.0-4.0 X 10^3 Monocytes # (Auto) 0.6 0.0-1.0 X 10^3 Eosinophils # (Auto) 0.0 0.0-0.3 10^3/uL Basophils # (Auto) 0.0 0.0-0.1 10^3/uL Sodium Level 144 135-145 MMOL/L Potassium Level 3.5 L 3.6-5.0 MMOL/L Chloride Level 110 H 98-107 MMOL/L Carbon Dioxide Level 29 21-32 MMOL/L Anion Gap 5 5-14 MMOL/L Blood Urea Nitrogen 11 7-18 MG/DL Creatinine 0.78 0.60-1.30 MG/DL Estimat Glomerular Filtration Rate > 60 BUN/Creatinine Ratio 14 Glucose Level 89 70-105 MG/DL Calcium Level 8.6 8.5-10.1 MG/DL Corrected Calcium 8.6 8.5-10.1 MG/DL Magnesium Level 1.9 1.6-2.4 MG/DL Total Bilirubin 0.8 0.1-1.0 MG/DL Aspartate Amino Transf (AST/SGOT) 14 5-34 U/L Alanine Aminotransferase (ALT/SGPT) 9 0-55 U/L Alkaline Phosphatase 70 40-136 U/L Total Creatine Kinase 89 30-200 U/L Total Protein 6.7 6.4-8.2 GM/DL Albumin 4.0 3.2-4.5 GM/DL My Orders Orders - ROXANE COHEN Cbc With Automated Diff (03/09/20 13:39) Comprehensive Metabolic Panel (03/09/20 13:39) Creatine Kinase (03/09/20 13:39) Acetaminophen Tablet/Caplet (Tylenol T (03/09/20 13:45) Magnesium (03/09/20 13:39) Ed Iv/Invasive Line Start (03/09/20 13:39) Lactated Ringers (Lr 1000 Ml Iv Solution (03/09/20 13:39) Ketorolac Injection (Toradol Injection) (03/09/20 14:45) Vital Signs/I&O 03/10/20 00:00 Intake Total 2000 ml Balance 2000 ml Capillary Refill : Less Than 3 Seconds Blood Pressure Mean: 128 Progress Note #1: Time: 13:50 Progress Note Heat exposure/exhaustion. Patient has aseptic vital signs and elevated blood pressure with no temperature lability and no neurologic symptoms. Liter lactated Ringer's in addition to the liter he is already receiving from EMS. Tylenol for his pain. He states ibuprofen allergy is that it causes his heart stop. If his kidney functions okay and he still having significant pain then we can give him Toradol. We'll check a magnesium level as well. The bottle of water provided to him by police has about one or 2 ounces missing out of it. Progress Note #2: Time: 15:00 Progress Note Patient decided he felt better and did not have any understanding waiting for his labs. He left AGAINST MEDICAL ADVICE before we could speak to him. Departure Impression Primary Impression: Dehydration Additional Impression: Leg cramps Disposition: 07 AGAINST MEDICAL ADVICE Condition: Against Medical Advice Departure-Patient Inst. Decision time for Depature: 06:26 Referrals: [facility] (PCP/Family) Primary Care Physician Patient Instructions: Dehydration, Adult (DC) Add. Discharge Instructions: Follow-up with primary care doctor. Return to the ER should you experience intractable pain, chest pain, shortness of air. All discharge instructions reviewed with patient and/or family. Voiced understanding. ROXANE COHEN Mar 09, 2020 13:51
[2020-03-09 14:03] LABS: BASOPHILS % (AUTO) 0 % (0-10); EOSINOPHILS % (AUTO) 0 % (0-10); HEMATOCRIT 43 % (40-54); HEMOGLOBIN 14.2 G/DL (13.3-17.7); LYMPHOCYTES # (AUTO) 1.7 X 10^3 (1.0-4.0); LYMPHOCYTES % (AUTO) 25 % (12-44); MEAN CORPUSCULAR HEMOGLOBIN 32 PG (25-34); MEAN CORPUSCULAR HGB CONC 33 G/DL (32-36); MEAN CORPUSCULAR VOLUME 98 FL (80-99); MEAN PLATELET VOLUME 8.9 FL (7.4-10.4); MONOCYTES # (AUTO) 0.6 X 10^3 (0.0-1.0); MONOCYTES % (AUTO) 9 % (0-12); NEUTROPHILS # (AUTO) 4.4 X 10^3 (1.8-7.8); NEUTROPHILS % (AUTO) 65 % (42-75); PLATELET COUNT 203 10^3/uL (130-400); WHITE BLOOD COUNT 6.7 10^3/uL (4.3-11.0)
[2020-03-09 14:14] LABS: CHLORIDE 110 MMOL/L (98-107); POTASSIUM 3.5 MMOL/L (3.6-5.0); SODIUM 144 MMOL/L (135-145)
[2020-03-09 14:15] LABS: CALCIUM 8.6 MG/DL (8.5-10.1)
[2020-03-09 14:16] LABS: GLUCOSE 89 MG/DL (70-105); TOTAL PROTEIN 6.7 GM/DL (6.4-8.2)
[2020-03-09 14:17] LABS: CARBON DIOXIDE 29 MMOL/L (21-32)
[2020-03-09 14:18] LABS: BILIRUBIN,TOTAL 0.8 MG/DL (0.1-1.0)
[2020-03-09 14:19] LABS: ALKALINE PHOSPHATASE 70 U/L (40-136)
[2020-03-09 14:20] LABS: CREATININE SERUM 0.78 MG/DL (0.60-1.30); GFR ESTIMATED > 60
[2020-03-09 14:21] LABS: BUN/CREATININE RATIO 14
[2020-03-09 14:22] LABS: ALANINE AMINOTRANSFERASE 9 U/L (0-55)
[2020-03-09 14:23] LABS: MAGNESIUM 1.9 MG/DL (1.6-2.4)
[2020-03-09 14:24] LABS: CREATINE KINASE 89 U/L (30-200)
[2020-03-09] MEDS ORDERED: KETOROLAC 30 MG/ML VIAL IVP ONE (14:45)
== END 2020-03-09 15:27 | disposition left against medical advice (07) ==
LOC: EDUNIT# 13:33 → ER 13:34
DX: E86.0 Dehydration (principal); R25.2 Cramp and spasm; J43.9 Emphysema, unspecified; F17.210 Nicotine dependence, cigarettes, uncomplicated; I10 Essential (primary) hypertension; Z88.6 Allergy status to analgesic agent; Z88.5 Allergy status to narcotic agent; Z79.52 Long term (current) use of systemic steroids; Z85.828 Personal history of other malignant neoplasm of skin; Z80.3 Family history of malignant neoplasm of breast; Z80.42 Family history of malignant neoplasm of prostate; Z80.0 Family history of malignant neoplasm of digestive organs; Z80.8 Family history of malignant neoplasm of other organs or systems
CPT/HCPCS: 36415; 80053; 82550; 83735; 85025

== ENCOUNTER 2020-06-26 13:04 | Emergency (ER) | payer MEDICARE ==
[~2020-06-26] VITALS: Ht 167 cm; Wt 61.0 kg
[2020-06-26] VITALS (9 sets, daily range): BP systolic 132–145; BP diastolic 79–95
[~2020-06-26 13:04] MED LIST changes: -OXYC-465 PO; +OXYC-556 PO
--- NOTE | 2020-06-26 13:48 | ED EENT ---
History of Present Illness General Chief Complaint: Oral/Throat Problems Stated Complaint: FOOD STUCK IN THROAT Source: patient Exam Limitations: no limitations History of Present Illness Date Seen by Provider: Jun 26, 2020 Time Seen by Provider: 13:28 Initial Comments Here with complaint of food bolus stuck in his throat. States that he was eating breakfast at around 9 AM and was eating potato wedges when it became lodged. He has not been able to swallow anything since. He is not even able to drink bits of water. He has had this problem previously and required endoscopy to remove the bolus. Denies fever, chills, upper respiratory symptoms or contact with COVID-19. Timing/Duration: abrupt Severity: moderate Modifying Factors: Improves With Rest; Worse With Other (Swallowing) Associated Symptoms: No cough, No fever, No nasal congestion/drainage, No voice change Allergies and Home Medications Allergies Coded Allergies: ibuprofen (Verified Allergy, Unknown, 04/05/15) HYPERTENSION tramadol (Verified Adverse Reaction, Unknown, VOMIT, 10/03/18) Home Medications Prednisone 20 Mg Tab, 20 MG PO DAILY Prescribed by: KRISTINA GOMES on 10/12/19 0125 Patient Home Medication List Home Medication List Reviewed: Yes Review of Systems Review of Systems Constitutional: No chills, No fever Ears: No Symptoms Reported Nose: no symptoms reported Mouth: no symptoms reported Throat: see HPI; denies hoarse; other (Food bolus and unable to swallow) Respiratory: No cough, No short of breath Cardiovascular: no symptoms reported Gastrointestinal: No abdominal pain, No nausea, No vomiting Musculoskeletal: no symptoms reported Neurological: No Symptoms Reported Past Sxxkoxj-Lraejl-Fsmhwe Hx Past Med/Social Hx: Reviewed Nursing Past Med/Soc Hx Patient Social History Alcohol Use: Denies Use Recreational Drug Use: No Drug of Choice: denies Smoking Status: Current Everyday Smoker Type Used: Cigarettes 2nd Hand Smoke Exposure: Yes Recent Foreign Travel: No Contact w/Someone Who Travel: No Recent Hopitalizations: No Immunizations Up To Date Tetanus Booster (TDap): Less than 5yrs PED Vaccines UTD: Yes Date of Pneumonia Vaccine: May 26, 2017 Date of Influenza Vaccine: May 24, 2018 Seasonal Allergies Seasonal Allergies: No Past Medical History Surgeries: Yes Appendectomy, Ear Surgery, Gallbladder, Orthopedic Respiratory: Yes Chronic Bronchitis, COPD, Emphysema Cardiac: Yes Coronary Artery Disease, High Cholesterol, Hypertension Neurological: No Reproductive Disorders: No Sexually Transmitted Disease: No HIV/AIDS: No Genitourinary: No Gastrointestinal: Yes Gastroesophageal Reflux Musculoskeletal: Yes (chronic left shoulder pain) Degenerate Disk Disease, Arthritis, Chronic Back Pain Endocrine: No HEENT: Yes (POOR DENTITION; BMT'S ) Chronic Ear Infection Hearing Impairment: Hard of Hearing Cancer: Yes Skin Did You Recieve Any Treatments: Yes What Type of Treatment Did You: Surgical Intervention Psychosocial: Yes Anxiety, Suicide Attempts, Depression Integumentary: No Blood Disorders: No Adverse Reaction/Blood Tranf: No (N/A) Family Medical History Reviewed Nursing Family Hx Cancer 03 FATHER (PROSTATE) 03 MOTHER (BREAST CA ) 09 BROTHER (THROAT/PANCREATIC) 09 SISTER (LIVER) DEAFNESS 03 FATHER 09 BROTHER Family history: Breast disease 03 MOTHER (BREAST CA) History of - respiratory disease Prostate cancer 03 FATHER Stroke 03 MOTHER Visual impairment No Pertinent Family Hx Physical Exam Height, Weight, BMI Height: 5'6.00" Weight: 130lbs. 2.0oz. 59.197046yl; 19.00 BMI Method:Stated General Appearance: WD/WN, mild distress Nose: normal inspection Mouth/Throat: pharynx normal, other (Unable to swallow saliva) Neck: full range of motion, supple Cardiovascular: regular rate, rhythm, no murmur Respiratory: lungs clear, normal breath sounds Gastrointestinal: non tender, soft Neurologic/Psychiatric: alert, oriented x 3 Skin: normal color, warm/dry Progress/Results/Core Measures Results/Orders My Orders Orders - DIEGO NEWBERRY MD Covid 19 Inhouse Test (06/26/20 13:41) Progress Progress Note : Progress Note Seen and evaluated. IV established. I did discuss the case with Dr. Romero at 1338. He request Covid screening test which was ordered. He will take the patient to endoscopy to remove food bolus. Monitor patient. Departure Communication (Admissions) Time/Spoke to Admitting Phy: 13:38 Impression Primary Impression: Esophageal obstruction due to food impaction Disposition: ADMITTED INPATIENT Condition: Stable Admissions Decision to Admit Reason: Admit from ER (General) Decision to Admit/Date: Jun 26, 2020 Time/Decision to Admit Time: 13:38 Departure-Patient Inst. Referrals: [facility] (PCP/Family) Primary Care Physician DIEGO NEWBERRY MD Jun 26, 2020 13:47
--- NOTE | 2020-06-26 14:26 | History & Physical-Surgical ---
MARY PHELAN MED STUDENT 06/26/20 1426: History of Present Illness History of Present Illness Reason for visit/HPI CC: food bolus HPI: Anjel Tidwell is a 65 YO male who presented to the ED after getting potato wedges stuck in his throat at around 9:00 this morning. Pt throws up any liquid he tries to drink. Has pain in his throat that worsens with talking, but denies any fever, chills, chest pain, or abdominal pain. Says he feels like he is having some difficulty breathing, but O2 sat is 98% on room air. Pt says this has happened multiple times in the past with foods like hot dogs and steak. Previous abdominal surgeries include appendectomy and cholecystectomy. Has history of HTN, but is unsure what medication he takes for it. Not on blood thinners. Smokes 1/2 ppd for the past 45 years. Hard of hearing. Date of Admission 06/26/2020 Time Seen by a Provider: 14:15 I consulted on this patient on 06/26/20 14:20 Attending Physician Admitting Physician [place]/Pending Sale To [facility] Consult Allergies and Home Medications Allergies Coded Allergies: ibuprofen (Verified Allergy, Unknown, 04/05/15) HYPERTENSION tramadol (Verified Adverse Reaction, Unknown, VOMIT, 10/03/18) Home Medications Prednisone 20 Mg Tab, 20 MG PO DAILY Prescribed by: KRISTINA GOMES on 10/12/19 0125 Past Sanbngp-Gzkllz-Qvwngy Hx Patient Social History Alcohol Use: Denies Use Recreational Drug Use: No Drug of Choice: denies Smoking Status: Current Everyday Smoker Type Used: Cigarettes 2nd Hand Smoke Exposure: Yes Recent Foreign Travel: No Contact w/Someone Who Travel: No Recent Infectious Disease Expo: No Recent Hopitalizations: No Immunizations Up To Date Tetanus Booster (TDap): Less than 5yrs PED Vaccines UTD: Yes Date of Pneumonia Vaccine: Jun 05, 2020 Date of Influenza Vaccine: Jun 05, 2020 Seasonal Allergies Seasonal Allergies: No Surgeries History of Surgeries: Yes Surgeries: Appendectomy, Ear Surgery, Gallbladder, Orthopedic Respiratory History of Respiratory Disorde: Yes Respiratory Disorders: Chronic Bronchitis Cardiovascular History of Cardiac Disorders: Yes Cardiac Disorders: Coronary Artery Disease, High Cholesterol, Hypertension Neurological History of Neurological Disord: No Reproductive System Hx Reproductive Disorders: No Sexually Transmitted Disease: No HIV/AIDS: No Genitourinary History of Genitourinary Disor: No Gastrointestinal History of Gastrointestinal Di: Yes Gastrointestinal Disorders: Gastroesophageal Reflux Musculoskeletal History of Musculoskeletal Dis: Yes (chronic left shoulder pain) Musculoskeletal Disorders: Degenerate Disk Disease, Arthritis, Chronic Back Pain Endocrine History of Endocrine Disorders: No HEENT History of HEENT Disorders: Yes (POOR DENTITION; BMT'S ) HEENT Disorders: Chronic Ear Infection Hearing Impairment: Hard of Hearing Cancer History of Cancer: Yes Cancer: Skin Psychosocial History of Psychiatric Problem: Yes Behavioral Health Disorders: Anxiety, Suicide Attempts, Depression Integumentary History of Skin or Integumenta: No Blood Transfusions History of Blood Disorders: No Adverse Reaction to a Blood Tr: No (N/A) Family Medical History Significant Family History: No Pertinent Family Hx Family Medial History: Cancer 03 FATHER (PROSTATE) 03 MOTHER (BREAST CA ) 09 BROTHER (THROAT/PANCREATIC) 09 SISTER (LIVER) DEAFNESS 03 FATHER 09 BROTHER Family history: Breast disease 03 MOTHER (BREAST CA) History of - respiratory disease Prostate cancer 03 FATHER Stroke 03 MOTHER Visual impairment Review of Systems Constitutional: No chills, No fever EENTM: No blurred vision, No double vision Respiratory: No cough, No hemoptysis Cardiovascular: No chest pain, No palpitations Gastrointestinal: No abdominal pain; dysphagia Genitourinary: No frequency, No hematuria Musculoskeletal: No back pain, No joint pain Skin: No change in color, No change in hair/nails Psychiatric/Neurological: Denies Headache, Denies Numbness All Other Systems Reviewed Negative Unless Noted: Yes Physical Exam Vital Signs Vital Signs - First Documented 06/26/20 13:31 Temp 36.7 Pulse 77 Resp 24 B/P (MAP) 179/99 (125) Pulse Ox 98 O2 Delivery Room Air Capillary Refill : Less Than 3 Seconds Height, Weight, BMI Height: 5'6.00" Weight: 130lbs. 2.0oz. 59.106383ei; 21.00 BMI Method:Stated General Appearance: WD/WN, Other (appears uncomfortable) Eyes: Bilateral Eye Normal Inspection, Bilateral Eye EOMI HEENT: PERRL/EOMI, Pharynx Normal, Moist Mucous Membranes, Other (hard of hearing; edentulous) Neck: Normal Inspection, Supple Respiratory: Lungs Clear, Normal Breath Sounds, No Accessory Muscle Use, No Respiratory Distress Cardiovascular: Regular Rate, Rhythm, No Edema, No Murmur Gastrointestinal: Non Tender, Soft; No Distended Back: No No CVA Tenderness, No No Vertebral Tenderness Extremity: Normal Inspection, No Calf Tenderness, No Pedal Edema Neurologic/Psychiatric: Alert, Oriented x3, No Motor/Sensory Deficits, Normal Mood/Affect Skin: Normal Color, Warm/Dry Lymphatic: No Adenopathy Data Review Labs Laboratory Tests 06/26/20 13:42: Coronavirus 2019 ([facility]) Negative Assessment/Plan Assessment/Plan Admission Diagonsis food bolus Assessment/Plan food bolus GERD egd to retrieve food bolus CARMENFLORECITA Luz DO 06/26/20 1519: History of Present Illness History of Present Illness Reason for visit/HPI eating potato wedged today around 9 am. Couldn't get them down. Tried water no luck. Having to spit up secretions. Has difficulty chewing food. Multiple issues with esophageal obstructions. Denies fever sweats chills shortness of breath or chest pain. Allergies and Home Medications Allergies Coded Allergies: ibuprofen (Verified Allergy, Unknown, 04/05/15) HYPERTENSION tramadol (Verified Adverse Reaction, Unknown, VOMIT, 10/03/18) Home Medications Prednisone 20 Mg Tab, 20 MG PO DAILY Prescribed by: KRISTINA GOMES on 10/12/19 0125 Patient Home Medication List Home Medication List Reviewed: Yes Past Lzcipzo-Acfhkr-Wswsrw Hx Reviewed Nursing Assessment Reviewed/Agree w Nursing PMH: Yes Family Medical History Significant Family History: No Pertinent Family Hx Family Medial History: Cancer 03 FATHER (PROSTATE) 03 MOTHER (BREAST CA ) 09 BROTHER (THROAT/PANCREATIC) 09 SISTER (LIVER) DEAFNESS 03 FATHER 09 BROTHER Family history: Breast disease 03 MOTHER (BREAST CA) History of - respiratory disease Prostate cancer 03 FATHER Stroke 03 MOTHER Visual impairment Review of Systems Constitutional: No chills, No fever EENTM: other (spits up secretions); No blurred vision, No double vision Respiratory: No cough, No hemoptysis Cardiovascular: No chest pain, No palpitations Gastrointestinal: No abdominal pain; dysphagia Genitourinary: No frequency, No hematuria Musculoskeletal: No back pain, No joint pain Skin: No change in color, No change in hair/nails Psychiatric/Neurological: Denies Headache, Denies Numbness All Other Systems Reviewed Negative Unless Noted: Yes (Negative excepted noted.) Physical Exam General Appearance: WD/WN, Other (appears uncomfortable) HEENT: PERRL/EOMI, Moist Mucous Membranes, Other (hard of hearing; edentulous) Neck: Normal Inspection, Supple Respiratory: Lungs Clear, No Accessory Muscle Use, No Respiratory Distress Cardiovascular: Regular Rate, Rhythm, No Edema Gastrointestinal: Non Tender, Soft; No Distended Rectal: Deferred Back: No No CVA Tenderness, No No Vertebral Tenderness Extremity: Normal Inspection, No Calf Tenderness Neurologic/Psychiatric: Alert, Oriented x3, No Motor/Sensory Deficits, Normal Mood/Affect Skin: Normal Color, Warm/Dry Lymphatic: No Adenopathy Assessment/Plan Assessment/Plan Admission Diagonsis esophageal obstruction food bolus Admission Status: Other (Same Day Surgery) Assessment/Plan esophageal obstruction food bolus discussed risks and benefits of EGD to further evaluate and remove food bolus patient agrees with plan to or Supervisory-Addendum Brief Verification & Attestation Participated in pt care: history, MDM, physical Personally performed: exam, history, MDM, supervision of care Care discussed with: Medical Student Procedures: n/a Results interpretation: Verified all documentation Verification and Attestation of Medical Student E/M Service A medical student performed and documented this service in my presence. I reviewed and verified all information documented by the medical student and made modifications to such information, when appropriate. I personally performed the physical exam and medical decision making. Florecita Morales, Jun 26, 2020,15:17 MARY PHELAN MED STUDENT Jun 26, 2020 14:26 FLORECITA MORALES DO Jun 26, 2020 15:19
[2020-06-26] MEDS ORDERED: fentaNYL INJECTION 100 MCG/2 ML AMP ONE (14:37)
[2020-06-26] MEDS ORDERED: MIDAZOLAM 2 MG/2 ML (VERSED) VIAL ONE (14:38)
[2020-06-26] MEDS ORDERED: ONDANSETRON 4 MG/2 ML (SDV) Z0FRAN ONE (14:42)
[2020-06-26] MEDS ORDERED: LIDOCAINE PF 0.5% 50 ML (XYLOCAINE) VIAL ONE (14:43)
[2020-06-26] MEDS ORDERED: proPOfol 200 MG/20 ML (DIPRIVAN) VIAL IV ONE (14:43)
[2020-06-26] MEDS ORDERED: NITROGLYCERIN 0.4 MG SL TABS BTL 25'S SL ONE (15:02)
--- NOTE | 2020-06-26 15:05 | NUR ---
TO EGD WITH KORY MOLINA RN
--- NOTE | 2020-06-26 15:33 | NUR ---
Anamaria Wang RN came to get patients belongings, clothes, shoes, sunglasses, because he is going to same day surgery and not coming back to ER.
[2020-06-26] MEDS ORDERED: LACTATED RINGERS 1,000 ML IV PRN (15:34)
[2020-06-26] MEDS ORDERED: SEVOFLURANE (ULTANE) 15 ML INHAL SOLN ONE (15:35)
--- NOTE | 2020-06-26 15:39 | Anesthesia-General Post-Op ---
General Patient Condition Mental Status/LOC: Same as Preop Cardiovascular: Satisfactory Nausea/Vomiting: Absent Respiratory: Satisfactory Pain: Controlled Complications: Absent Post Op Complications Complications None Follow Up Care/Instructions Patient Instructions None needed. Anesthesia/Patient Condition Patient Condition Patient is doing well, no complaints, stable vital signs, no apparent adverse anesthesia problems. No complications reported per nursing. D/C home per [facility] Criteria: Yes MURTAZA SANCHEZ CRNA Jun 26, 2020 15:39
[2020-06-26] MEDS ORDERED: ONDANSETRON 4 MG/2 ML (SDV) Z0FRAN IVP PRN (15:45)
[2020-06-26] MEDS ORDERED: HYDROmorphone 2 MG/ML VIAL (DILAUDID) IV ONE (15:45)
--- NOTE | 2020-06-26 15:46 | Discharge Inst-Simple/Standard ---
Discharge Inst-Standard Discharge Medications New, Converted or Re-Newed RX: RX on Chart Patient Instructions/Follow Up Plan of Care/Instructions/FU: 2 weeks Heather Activity as Tolerated: Yes Discharge Diet: Regular Diet FLORECITA MORALES DO Jun 26, 2020 15:46
--- NOTE | 2020-06-26 15:49 | Progress Note-Post Operative ---
Post-Operative Progess Note Surgeon (s)/Residential Sales Associate (s) Surgeon FLORECITA MORALES DO Residential Sales Associate: na Pre-Operative Diagnosis Esophageal food bolus Post-Operative Diagnosis normal egd Procedure & Operative Findings Date of Procedure 06/26/20 Procedure Performed/Findings egd Anesthesia Type gen Estimated Blood Loss Estimated blood loss (mL): none Specimens/Packing Specimens Removed na FLORECITA MORALES DO Jun 26, 2020 15:49
--- NOTE | 2020-06-26 16:30 | NUR ---
TO AMB SURG FROM PAR PER CART. FULLY ALERT, DENIES PAIN. HARD OF HEARING. ABLE TO TAKE SIPS OF WATER WITHOUT PROBLEM. PO FLUIDS PROVIDED.
--- NOTE | 2020-06-26 17:20 | NUR ---
PT HAD PROVIDED PHONE NUMBER TO CONTACT FAMILY MEMBER FOR [facility] HOME AFTER BEING TOLD HE IS NOT TO DRIVE. PT DROVE HIMSELF TO ED TODAY. CONTACTED FAMILY MEMBER, JENISE, FOR PICKUP, HOWEVER JENISE STATES HE CANNOT COME PICK PT UP. PT STATES HE HAS NO OTHER WAY TO LEAVE HOSPITAL. CONTACTED MACHINE WORKER, ARRANGEMENTS MADE FOR HOSPITAL PAID TAXI TO PICK PT UP FOR TRANSPORT TO JENISE' HOME. PT REMAINS ALERT, DENIES COMPLAINTS.
--- NOTE | 2020-06-27 00:30 | OPERATIVE REPORT ---
DATE OF SERVICE: 06/26/2020 PREOPERATIVE DIAGNOSIS: Esophageal food bolus. POSTOPERATIVE DIAGNOSIS: Normal esophagogastroduodenoscopy. PROCEDURE: EGD. SURGEON: Florecita Romero DO ANESTHESIA: General. ESTIMATED BLOOD LOSS: None. COMPLICATIONS: None. SPECIMENS: None. INDICATIONS: The patient is a 65-year-old male who was eating potatoes at approximately 9 a.m. He is unable to pass potatoes and was spitting secretions. The patient understands risks and benefits of procedure and wished to proceed with procedure. Consent was signed in the chart. DESCRIPTION OF PROCEDURE: The patient was taken to the OR and he was intubated for airway protection. Timeout was performed. Scope was inserted in mouth, down the esophagus without any food bolus or obstruction. Scope was continued to be advanced into the stomach and into the duodenum without difficulty. No polyps, masses or ulcerations of the duodenum. Scope was slowly retracted back into the stomach where it was further insufflated. No polyps, masses or ulcerations. Scope was retroflexed noting just some slight erythematous changes around the GE junction. Scope was returned to its normal position, slowly withdrawn to distal esophagus, which had normal appearance. No polyps, masses or ulcerations. No evidence of any stricture. Scope was then slowly retracted back until completely removed. The patient tolerated procedure well without any complications, taken to recovery room in stable condition. RECOMMENDATIONS: The patient is edentulous. We will consider working on better mastication and will have the patient follow up in 2 weeks to discuss further. Job ID: [id number] DocumentID: [id number] Dictated Date: 06/26/2020 16:06:06 Fur Finisher Tailor Date: 06/27/2020 00:29:13 Dictated By: FLORECITA ROMERO DO
== END 2020-06-26 17:20 | disposition home or self-care (01) ==
LOC: EDUNIT# 13:04 → ER 13:06
DX: K22.2 Esophageal obstruction (principal); J44.9 Chronic obstructive pulmonary disease, unspecified; F17.210 Nicotine dependence, cigarettes, uncomplicated; Z20.828 Contact with and (suspected) exposure to other viral communicable diseases; Z80.42 Family history of malignant neoplasm of prostate; Z80.3 Family history of malignant neoplasm of breast; Z80.0 Family history of malignant neoplasm of digestive organs; Z85.828 Personal history of other malignant neoplasm of skin; Z88.5 Allergy status to narcotic agent; Z88.6 Allergy status to analgesic agent; Z79.52 Long term (current) use of systemic steroids
CPT/HCPCS: 99284; U0002; 87635

== ENCOUNTER 2021-01-11 16:39 | Emergency (ER) | payer MEDICARE ==
[~2021-01-11] VITALS: Ht 167.7 cm; Wt 58.9 kg
[~2021-01-11 16:39] MED LIST changes: -ISOS30TA3 PO; +ISOS30TA82 PO
[2021-01-11] MEDS ORDERED: ASPIRIN 81 MG CHEW (CHILDREN'S ASA) PO ONE (16:45)
[2021-01-11 16:52] VITALS: BP_SYST 120; BP_SYST 126; BP_SYST 136; BP_DIAS 71; BP_DIAS 77; BP_DIAS 79
[2021-01-11 16:52] LABS: BASOPHILS % (AUTO) 1 % (0-10); EOSINOPHILS # (AUTO) 0.1 10^3/uL (0.0-0.3); EOSINOPHILS % (AUTO) 1 % (0-10); HEMATOCRIT 43 % (40-54); HEMOGLOBIN 13.9 g/dL (13.3-17.7); LYMPHOCYTES # (AUTO) 2.2 10^3/uL (1.0-4.0); LYMPHOCYTES % (AUTO) 31 % (12-44); MEAN CORPUSCULAR HEMOGLOBIN 31 pg (25-34); MEAN CORPUSCULAR HGB CONC 32 g/dL (32-36); MEAN CORPUSCULAR VOLUME 95 fL (80-99); MEAN PLATELET VOLUME 8.8 fL (9.0-12.2); MONOCYTES # (AUTO) 0.6 10^3/uL (0.0-1.0); MONOCYTES % (AUTO) 9 % (0-12); NEUTROPHILS # (AUTO) 4.2 10^3/uL (1.8-7.8); NEUTROPHILS % (AUTO) 59 % (42-75); PLATELET COUNT 242 10^3/uL (130-400); WHITE BLOOD COUNT 7.2 10^3/uL (4.3-11.0)
--- NOTE | 2021-01-11 16:53 | ED Chest Pain ---
General Chief Complaint: Chest Pain Stated Complaint: PASSING OUT,CP Source: patient Exam Limitations: no limitations (ALBA ROSA APRN) History of Present Illness Date Seen by Provider: January 11, 2021 Time Seen by Provider: 16:00 Initial Comments To ER by private vehicle with reports of syncope and chest pain. He said sy ncope about 5-10 times a day every day. He states that he passes out for a few seconds and then comes back to consciousness. He has occasionally fallen striking the back of his head. He states that he feels lightheaded and then collapses. Denies palpitations or shortness of breath or chest pain preceding syncopal events. Today he developed some chest pain about 1 hour prior to arrival. Chest pain is gone now. He smokes 1 pack of cigarettes per day. He states that the syncopal event has been ongoing since he had back surgery fairly recently Timing/Duration: changing over time Severity/Quality: moderate Radiation: no radiation Activities at Onset: none ASA po JAVA DEVELOPER: No NTG SL JAVA DEVELOPER: No (ALBA ROSA APRN) Allergies and Home Medications Allergies Coded Allergies: ibuprofen (Verified Allergy, Unknown, 04/05/15) HYPERTENSION tramadol (Verified Adverse Reaction, Unknown, VOMIT, 10/03/18) Home Medications Amoxicillin/Potassium Clav 1 Each Tablet, 1 EACH PO BID Prescribed by: ALBA ROSA on 01/11/211815 Ofloxacin 5 Ml Drops, 5 DROPS RIGHT EAR BID Prescribed by: ALBA ROSA on 01/11/211815 Prednisone 20 Mg Tab, 20 MG PO DAILY Prescribed by: KRISTINA GOMES on 10/12/19 0125 Patient Home Medication List Home Medication List Reviewed: Yes (ALBA ROSA APRN) Review of Systems Review of Systems Constitutional: see HPI EENTM: No Symptoms Reported Respiratory: No Symptoms Reported Cardiovascular: See HPI, Chest Pain; Denies Irregular Heart Rate; Lightheadedness; Denies Palpitations; Syncope Gastrointestinal: No Symptoms Reported Genitourinary: No Symptoms Reported Musculoskeletal: no symptoms reported Skin: no symptoms reported Psychiatric/Neurological: No Symptoms Reported Endocrine: No Symptoms Reported Hematologic/Lymphatic: No Symptoms Reported (He is pain-free now) (ALBA ROSA APRN) Past Ztckgll-Sxooba-Kzpaxo Hx Patient Social History Drug of Choice: denies Type Used: Cigarettes 2nd Hand Smoke Exposure: Yes Recent Hopitalizations: No (ALBA ROSA APRN) Immunizations Up To Date Tetanus Booster (TDap): Less than 5yrs PED Vaccines UTD: Yes Date of Pneumonia Vaccine: Jun 05, 2020 Date of Influenza Vaccine: Jun 05, 2020 (ALBA ROSA APRN) Seasonal Allergies Seasonal Allergies: No (ALBA ROSA APRN) Past Medical History Surgeries: Yes Appendectomy, Ear Surgery, Gallbladder, Orthopedic Respiratory: Yes Chronic Bronchitis Currently Using CPAP: No Currently Using BIPAP: No Cardiac: Yes Coronary Artery Disease, High Cholesterol, Hypertension Neurological: No Reproductive Disorders: No Sexually Transmitted Disease: No HIV/AIDS: No Genitourinary: No Gastrointestinal: Yes Gastroesophageal Reflux Musculoskeletal: Yes (chronic left shoulder pain) Degenerate Disk Disease, Arthritis, Chronic Back Pain Endocrine: No HEENT: Yes (POOR DENTITION; BMT'S ) Chronic Ear Infection Hearing Impairment: Hard of Hearing Cancer: Yes Skin Did You Recieve Any Treatments: Yes What Type of Treatment Did You: Surgical Intervention Psychosocial: Yes Anxiety, Suicide Attempts, Depression Integumentary: No Blood Disorders: No Adverse Reaction/Blood Tranf: No (N/A) (ALBA ROSA APRN) Family Medical History Cancer 03 FATHER (PROSTATE) 03 MOTHER (BREAST CA ) 09 BROTHER (THROAT/PANCREATIC) 09 SISTER (LIVER) DEAFNESS 03 FATHER 09 BROTHER Family history: Breast disease 03 MOTHER (BREAST CA) History of - respiratory disease Prostate cancer 03 FATHER Stroke 03 MOTHER Visual impairment No Pertinent Family Hx (ALBA ROSA APRN) Physical Exam Vital Signs Vital Signs - First Documented (KRISTINA MONCADA MD) Vital Signs Capillary Refill : (ALBA ROSA APRN) Height, Weight, BMI Height: 5'6.00" Weight: 130lbs. 2.0oz. 59.049621fx; 21.00 BMI Method:Stated General Appearance: No Apparent Distress, WD/WN, Thin, Other (Alert and oriented no distress heart rate is 73 sinus without ectopy blood pressure 140s systolic mentating well ambulatory to room 6 on his own accord without assistive device) HEENT: PERRL/EOMI, Other (Bilat t-tubes in place, on the right there is purulent drainage in canal. No mastoid tenderness or erythema. ) Neck: Full Range of Motion, Normal Inspection Respiratory: Normal Breath Sounds, No Accessory Muscle Use, No Respiratory Distress Cardiovascular: Regular Rate, Rhythm, Normal Peripheral Pulses Gastrointestinal: Normal Bowel Sounds, Non Tender, Soft Extremity: Normal Capillary Refill, Normal Inspection Neurologic/Psychiatric: Alert, Oriented x3 Skin: Normal Color, Warm/Dry (ALBA ROSA APRN) Progress/Results/Core Measures Results/Orders Lab Results Laboratory Tests Test 01/11/21 16:42 01/11/21 18:10 Range/Units White Blood Count 7.2 4.3-11.0 10^3/uL Red Blood Count 4.53 4.30-5.52 10^6/uL Hemoglobin 13.9 13.3-17.7 g/dL Hematocrit 43 40-54 % Mean Corpuscular Volume 95 80-99 fL Mean Corpuscular Hemoglobin 31 25-34 pg Mean Corpuscular Hemoglobin Concent 32 32-36 g/dL Red Cell Distribution Width 15.1 H 10.0-14.5 % Platelet Count 242 130-400 10^3/uL Mean Platelet Volume 8.8 L 9.0-12.2 fL Immature Granulocyte % (Auto) 0 % Neutrophils (%) (Auto) 59 42-75 % Lymphocytes (%) (Auto) 31 12-44 % Monocytes (%) (Auto) 9 0-12 % Eosinophils (%) (Auto) 1 0-10 % Basophils (%) (Auto) 1 0-10 % Neutrophils # (Auto) 4.2 1.8-7.8 10^3/uL Lymphocytes # (Auto) 2.2 1.0-4.0 10^3/uL Monocytes # (Auto) 0.6 0.0-1.0 10^3/uL Eosinophils # (Auto) 0.1 0.0-0.3 10^3/uL Basophils # (Auto) 0.0 0.0-0.1 10^3/uL Immature Granulocyte # (Auto) 0.0 0.0-0.1 10^3/uL Prothrombin Time 13.7 12.2-14.7 SEC INR Comment 1.0 0.8-1.4 Activated Partial Thromboplast Time 29 24-35 SEC Sodium Level 140 135-145 MMOL/L Potassium Level 4.0 3.6-5.0 MMOL/L Chloride Level 103 98-107 MMOL/L Carbon Dioxide Level 25 21-32 MMOL/L Anion Gap 12 5-14 MMOL/L Blood Urea Nitrogen 14 7-18 MG/DL Creatinine 0.83 0.60-1.30 MG/DL Estimat Glomerular Filtration Rate > 60 BUN/Creatinine Ratio 17 Glucose Level 90 70-105 MG/DL Calcium Level 9.3 8.5-10.1 MG/DL Corrected Calcium 9.2 8.5-10.1 MG/DL Magnesium Level 1.9 1.6-2.4 MG/DL Total Bilirubin 0.4 0.1-1.0 MG/DL Aspartate Amino Transf (AST/SGOT) 16 5-34 U/L Alanine Aminotransferase (ALT/SGPT) 9 0-55 U/L Alkaline Phosphatase 77 40-136 U/L Myoglobin 19.8 10.0-92.0 NG/ML Troponin I < 0.028 < 0.028 <0.028 NG/ML B-Type Natriuretic Peptide 46.6 <100.0 PG/ML Total Protein 7.4 6.4-8.2 GM/DL Albumin 4.1 3.2-4.5 GM/DL (KRISTINA MONCADA MD) Vital Signs/I&O 01/11/21 01/11/21 01/11/21 01/11/21 16:40 16:40 16:52 19:20 Temp 36.5 Pulse 77 72 74 79 80 Resp 18 16 B/P (MAP) 143/89 (107) 136/77 (96) 139/81 126/79 (95) 120/71 (87) Pulse Ox 97 97 O2 Delivery Room Air Room Air Room Air (KRISTINA MONCADA MD) Progress Progress Note : Progress Note I was the attending physician physically present in the emergency department during the care of this patient. I was not directly involved in this patient's care. (KRISTINA MONCADA MD) Diagnostic Imaging Diagonstic Imaging: Xray, CT Comments NAME: LUZ ELENA [facility]WELL [facility] REC#: [id number] PT STATUS: REG ER : 1955 PHYSICIAN: ALBA ROSA APRN ADMIT DATE: 01/11/21/ER Draft Date of Exam:01/11/21 CHEST 1 VIEW, AP/PA ONLY INDICATION: Chest pain. FINDINGS: The heart size is normal. There is air trapping compatible with COPD. There is no pleural effusion, pneumothorax or pneumonia. Mediastinum is unremarkable. There are postsurgical changes in the thoracolumbar spine. IMPRESSION: COPD, otherwise unremarkable. Dictated on workstation # [id number] Dict: 01/11/21 1708 Trans: 01/11/21 1711 PJE [id number] Interpreted by: ASHA KAN MD Electronically signed by: (ALBA ROSA APRN) Departure Communication (Admissions) Family Conversation NAME: LUZ ELENA CALDWELL [facility] REC#: [id number] PT STATUS: REG ER : 1955 PHYSICIAN: ALBA ROSA APRN ADMIT DATE: 01/11/21/ER Draft Date of Exam:01/11/21 CT HEAD/CERVICAL SPINE WO PROCEDURE: CT head and CT cervical spine without contrast. TECHNIQUE: Multiple contiguous axial images were obtained through the brain and cervical spine without the use of intravenous contrast. Sagittal and coronal reformations through the cervical spine were then performed. Auto Exposure Controls were utilized during the CT exam to meet ALARA standards for radiation dose reduction. INDICATION: Head and neck pain after fall. FINDINGS: The ventricles and sulci are within normal limits. There is no hydrocephalus. There is no midline shift. There is no mass, hemorrhage or extra-axial fluid collection. There is some mild chronic microvascular ischemic disease. The calvarium is intact. The sinuses and mastoid air cells are clear. There are previous postsurgical changes in the anterocervical fusion from C3 through C7. The hardware is intact. The vertebral body heights are well maintained. There is no acute fracture or traumatic subluxation. Odontoids intact and the lateral masses well aligned. The prevertebral soft tissues are within normal limits. IMPRESSION: 1. Atrophy and some chronic microvascular ischemic disease; however, no acute intracranial abnormality. 2. Stable postsurgical changes in the cervical spine without acute fracture or traumatic subluxation. Dictated on workstation # [id number] Dict: 01/11/21 170 Trans: 01/11/21 171 PJE [id number] Interpreted by: ASHA KAN MD Electronically signed by: 1654-orthostatic vital signs were as follows, lying 136/77 heart rate 72, sitting 126/79 heart rate 79, standing 120/71 heart rate 80. On arrival to room he was 143/89. From his initial blood pressure of 143/89 down to 120/71 is a drop of 23 mmHg. Consistent with orthostatic hypotension. We will give him some fluids. (ALBA ROSA APRN) Impression Primary Impression: Otitis media Qualified Codes: H66.11 - Chronic tubotympanic suppurative otitis media, right ear Additional Impressions: Chest pain Qualified Codes: R07.9 - Chest pain, unspecified Chronic pain Qualified Codes: G89.29 - Other chronic pain Orthostatic hypotension Disposition: HOME, SELF-CARE Condition: Stable Departure-Patient Inst. Decision time for Depature: 18:14 (ALBA ROSA APRN) [place]: [facility] [place] Primary Care Physician Patient Instructions: Ear Infection ED Add. Discharge Instructions: 1. Eardrops and oral antibiotics as directed. Return to ER for any concerns. Follow-up with your doctor next week. All discharge instructions reviewed with patient and/or family. Voiced understanding. Scripts Amoxicillin/Potassium Clav (Augmentin 875-125 Tablet) 1 Each Tablet 1 EACH PO BID, #14 TAB 0 Refills Prov: ALBA ROSA APRN 01/11/21 Ofloxacin (Floxin (Non-Formulary)) 5 Ml Drops 5 DROPS RIGHT EAR BID for 5 Days, #1 DROPS 1 Refill Prov: ALBA ROSA APRN 01/11/21 ALBA ROSA APRN January 11, 2021 16:53 KRISTINA MONCADA MD January 13, 2021 07:12
[2021-01-11] MEDS ORDERED: LACTATED RINGERS 1,000 ML IV SCH (17:00)
[2021-01-11 17:05] LABS: ALBUMIN 4.1 GM/DL (3.2-4.5); CHLORIDE 103 MMOL/L (98-107); PROTHROMBIN TIME PATIENT 13.7 SEC (12.2-14.7); SODIUM 140 MMOL/L (135-145)
[2021-01-11 17:06] LABS: CALCIUM 9.3 MG/DL (8.5-10.1)
[2021-01-11 17:08] LABS: GLUCOSE 90 MG/DL (70-105); TOTAL PROTEIN 7.4 GM/DL (6.4-8.2)
[2021-01-11 17:09] LABS: BILIRUBIN,TOTAL 0.4 MG/DL (0.1-1.0); CARBON DIOXIDE 25 MMOL/L (21-32)
[2021-01-11 17:11] LABS: ALKALINE PHOSPHATASE 77 U/L (40-136); CREATININE SERUM 0.83 MG/DL (0.60-1.30); GFR ESTIMATED > 60
--- NOTE | 2021-01-11 17:11 | Diagnostic Imaging Report ---
INDICATION: Chest pain. FINDINGS: The heart size is normal. There is air trapping compatible with COPD. There is no pleural effusion, pneumothorax or pneumonia. Mediastinum is unremarkable. There are postsurgical changes in the thoracolumbar spine. IMPRESSION: COPD, otherwise unremarkable. Dictated by: Dictated on workstation # [id number]
[2021-01-11 17:12] LABS: BUN/CREATININE RATIO 17
[2021-01-11 17:14] LABS: ALANINE AMINOTRANSFERASE 9 U/L (0-55); MAGNESIUM 1.9 MG/DL (1.6-2.4)
[2021-01-11] MEDS ORDERED: HYDROcodone/APAP 5 MG/325 MG (LORTAB) TAB PO ONE ×2 (17:15→17:30)
--- NOTE | 2021-01-11 17:15 | Diagnostic Imaging Report ---
PROCEDURE: CT head and CT cervical spine without contrast. TECHNIQUE: Multiple contiguous axial images were obtained through the brain and cervical spine without the use of intravenous contrast. Sagittal and coronal reformations through the cervical spine were then performed. Auto Exposure Controls were utilized during the CT exam to meet ALARA standards for radiation dose reduction. INDICATION: Head and neck pain after fall. FINDINGS: The ventricles and sulci are within normal limits. There is no hydrocephalus. There is no midline shift. There is no mass, hemorrhage or extra-axial fluid collection. There is some mild chronic microvascular ischemic disease. The calvarium is intact. The sinuses and mastoid air cells are clear. There are previous postsurgical changes in the anterocervical fusion from C3 through C7. The hardware is intact. The vertebral body heights are well maintained. There is no acute fracture or traumatic subluxation. Odontoids intact and the lateral masses well aligned. The prevertebral soft tissues are within normal limits. IMPRESSION: 1. Atrophy and some chronic microvascular ischemic disease; however, no acute intracranial abnormality. 2. Stable postsurgical changes in the cervical spine without acute fracture or traumatic subluxation. Dictated by: Dictated on workstation # [id number]
[2021-01-11] MEDS ORDERED: cefTRIAXone FOR IV USE 1,000 MG in WATER (STERILE) FOR INJECTION 10 ML IV ONE (17:30)
[2021-01-11] MEDS ORDERED: OFLO5DRO33 RIGHT EAR (18:16)
[2021-01-11] MEDS ORDERED: AMOX-358 PO (18:16)
[2021-01-11 19:20] VITALS: BP 139/81
== END 2021-01-11 19:20 | disposition home or self-care (01) ==
LOC: EDUNIT# 16:39 → ER 16:41
DX: R07.9 Chest pain, unspecified (principal); I95.1 Orthostatic hypotension; G89.29 Other chronic pain; H66.91 Otitis media, unspecified, right ear; I10 Essential (primary) hypertension; F17.210 Nicotine dependence, cigarettes, uncomplicated; Z98.890 Other specified postprocedural states
CPT/HCPCS: 36415; 70450; 71045; 72125; 80053; 83735; 83874; 83880; 84484; 85025; 85610; 85730; 87070; 93005; 93041

== ENCOUNTER 2021-01-24 21:38 | Inpatient (IN) | payer MEDICARE ==
[~2021-01-24] VITALS: Ht 172 cm; Wt 57.7 kg
[2021-01-24 21:38] VITALS: BP 91/66
[~2021-01-24 21:38] MED LIST changes: +AMOX-358 PO
[2021-01-24 21:54] LABS: BASOPHILS % (AUTO) 0 % (0-10); EOSINOPHILS # (AUTO) 0.1 10^3/uL (0.0-0.3); EOSINOPHILS % (AUTO) 0 % (0-10); HEMATOCRIT 42 % (40-54); HEMOGLOBIN 13.8 g/dL (13.3-17.7); LYMPHOCYTES # (AUTO) 2.8 10^3/uL (1.0-4.0); LYMPHOCYTES % (AUTO) 21 % (12-44); MEAN CORPUSCULAR HEMOGLOBIN 31 pg (25-34); MEAN CORPUSCULAR HGB CONC 33 g/dL (32-36); MEAN CORPUSCULAR VOLUME 95 fL (80-99); MEAN PLATELET VOLUME 8.5 fL (9.0-12.2); MONOCYTES # (AUTO) 1.5 10^3/uL (0.0-1.0); MONOCYTES % (AUTO) 11 % (0-12); NEUTROPHILS # (AUTO) 8.8 10^3/uL (1.8-7.8); NEUTROPHILS % (AUTO) 67 % (42-75); PLATELET COUNT 238 10^3/uL (130-400); WHITE BLOOD COUNT 13.1 10^3/uL (4.3-11.0)
[2021-01-24] MEDS ORDERED: NALOXONE 0.4 MG/ML 1 ML (NARCAN) VIAL IV ONE (22:00)
[2021-01-24 22:10] LABS: FIBRIN DEGRADATION PRODUCTS 0.61 UG/ML (0.00-0.49); INR 1.1 (0.8-1.4); PROTHROMBIN TIME PATIENT 14.4 SEC (12.2-14.7)
[2021-01-24 22:18] LABS: ALANINE AMINOTRANSFERASE 11 U/L (0-55); ALKALINE PHOSPHATASE 80 U/L (40-136); BILIRUBIN,TOTAL 0.3 MG/DL (0.1-1.0); BUN/CREATININE RATIO 9; CALCIUM 9.3 MG/DL (8.5-10.1); CARBON DIOXIDE 24 MMOL/L (21-32); CHLORIDE 105 MMOL/L (98-107); CREATINE KINASE 44 U/L (30-200); CREATININE SERUM 1.79 MG/DL (0.60-1.30); GFR ESTIMATED 38; GLUCOSE 122 MG/DL (70-105); POTASSIUM 3.6 MMOL/L (3.6-5.0); SODIUM 140 MMOL/L (135-145); TOTAL PROTEIN 7.4 GM/DL (6.4-8.2)
[2021-01-24 22:18] LABS: SALICYLATE < 5.0 MG/DL (5.0-20.0)
[2021-01-24 22:19] LABS: ACETAMINOPHEN < 10 UG/ML (10-30)
[2021-01-24] MEDS ORDERED: LACTATED RINGERS 1,000 ML IV ONE (22:30)
[2021-01-24 22:50] LABS: BILIRUBIN,URINE NEGATIVE (NEGATIVE); CLARITY,URINE CLEAR; COLOR,URINE YELLOW; GLUCOSE, URINE (UA) NEGATIVE (NEGATIVE); KETONES,URINE NEGATIVE (NEGATIVE); LEUKOCYTE ESTERASE ,URINE TRACE (NEGATIVE); NITRITE,URINE NEGATIVE (NEGATIVE); PROTEIN,URINE 2+ (NEGATIVE)
[2021-01-24 23:07] LABS: BACTERIA,URINE NEGATIVE /HPF; RBC,URINE RARE /HPF; WBC,URINE RARE /HPF
[2021-01-24 23:08] LABS: AMPHETAMINE SCREEN, URINE NEGATIVE (NEGATIVE); BARBITURATE SCREEN URINE NEGATIVE (NEGATIVE); BENZODIAZEPINES SCREEN URINE POSITIVE (NEGATIVE); CANNABINOID SCREEN, URINE NEGATIVE (NEGATIVE); COCAINE SCREEN URINE NEGATIVE (NEGATIVE); METHADONE STAT NEGATIVE (NEGATIVE); METHAMPHETAMINE SCREEN URINE S NEGATIVE (NEGATIVE); OPIATE SCREEN URINE POSITIVE (NEGATIVE); OXYCODONE STAT NEGATIVE (NEGATIVE); PROPOXYPHENE STAT NEGATIVE (NEGATIVE); TRICYCLIC ANTIDEPRESSANTS SCRE NEGATIVE (NEGATIVE)
--- NOTE | 2021-01-25 00:54 | ED Neurological Problem ---
General Chief Complaint: Neuro-Stroke Like Symptoms Stated Complaint: STROKE Nursing Triage Note: PATIENT FOUND SITTING ON PORCH BY FAMILY AT 1630, FAMILY CALLED EMS AROUND 21 DUE TO PATIENT NOT RESPONDING TO FAMILY. FAMILY STATES LAST KNOWN WELL TIME LAST NIGHT. STATES THEY THOUGHT HE WAS JUST BEING STUBBORN AND NOT TALKING TO THEM. PT HAS GENERALIZED WEAKNESS. EMS STARTED IVF AND PLACED PT ON OXYGEN DUE TO 88 TO 89 PERCENT OXYGEN UPON THEIR ARRIVAL. Nursing Sepsis Screen: No Definite Risk Source: patient, family, EMS, old records Exam Limitations: clinical condition History of Present Illness Date Seen by Provider: Jan 24, 2021 Time Seen by Provider: 21:42 Initial Comments This 65-year-old gentleman presents to the emergency room via EMS after being found by his niece at her home with decreased responsiveness. He was at their house when they returned home somewhere around 16:15. They had not seen him for about a week prior to that. Patient was sitting on the porch and would not respond to them. Initially they thought this was elective behavior, but they later determined he was having a problem and activated EMS. On arrival patient is minimally responsive and does answer some questions with 1 word answers. He seems globally weak. Family notes a history of problems with inappropriate use of prescribed medications. They described him as a "pill popper". Vital signs are stable on nasal cannula oxygen with borderline hypotension. Blood sugar was 116. Oxygen saturation on room air was about 88%. There was no known trauma. FSBS by EMS was 116. Allergies and Home Medications Allergies Coded Allergies: ibuprofen (Verified Allergy, Unknown, 04/05/15) HYPERTENSION tramadol (Verified Adverse Reaction, Unknown, VOMIT, 10/03/18) Home Medications No Active Prescriptions or Reported Meds Patient Home Medication List Home Medication List Reviewed: Yes Review of Systems Review of Systems Constitutional: see HPI Eyes: See HPI, Other (Left eye pain and drainage) Ears, Nose, Mouth, Throat: no symptoms reported Respiratory: see HPI Cardiovascular: see HPI Gastrointestinal: no symptoms reported Genitourinary: no symptoms reported Musculoskeletal: no symptoms reported Skin: no symptoms reported Psychiatric/Neurological: See HPI Endocrine: No Symptoms Reported Hematologic/Lymphatic: No Symptoms Reported Past Dfaiwxc-Snatqi-Hbbwge Hx Past Med/Social Hx: Reviewed Nursing Past Med/Soc Hx Patient Social History Alcohol Use: Denies Use Drug of Choice: denies Type Used: Cigarettes 2nd Hand Smoke Exposure: Yes Recent Infectious Disease Expo: No Recent Hopitalizations: No Immunizations Up To Date Tetanus Booster (TDap): Less than 5yrs PED Vaccines UTD: Yes Date of Pneumonia Vaccine: Jun 05, 2020 Date of Influenza Vaccine: Jun 05, 2020 Seasonal Allergies Seasonal Allergies: No Past Medical History Surgeries: Yes Appendectomy, Ear Surgery, Gallbladder, Orthopedic Respiratory: Yes Chronic Bronchitis Currently Using CPAP: No Currently Using BIPAP: No Cardiac: Yes Coronary Artery Disease, High Cholesterol, Hypertension Neurological: No Reproductive Disorders: No Sexually Transmitted Disease: No HIV/AIDS: No Genitourinary: No Gastrointestinal: Yes Gastroesophageal Reflux Musculoskeletal: Yes (chronic left shoulder pain) Degenerate Disk Disease, Arthritis, Chronic Back Pain Endocrine: No HEENT: Yes (POOR DENTITION; BMT'S ) Chronic Ear Infection Hearing Impairment: Hard of Hearing Cancer: Yes Skin Did You Recieve Any Treatments: Yes What Type of Treatment Did You: Surgical Intervention Psychosocial: Yes Anxiety, Suicide Attempts, Depression Integumentary: No Blood Disorders: No Adverse Reaction/Blood Tranf: No (N/A) Family Medical History Cancer 03 FATHER (PROSTATE) 03 MOTHER (BREAST CA ) 09 BROTHER (THROAT/PANCREATIC) 09 SISTER (LIVER) DEAFNESS 03 FATHER 09 BROTHER Family history: Breast disease 03 MOTHER (BREAST CA) History of - respiratory disease Prostate cancer 03 FATHER Stroke 03 MOTHER Visual impairment No Pertinent Family Hx Physical Exam Vital Signs Vital Signs - First Documented 01/24/21 01/24/21 21:38 21:40 Temp 37.0 Pulse 77 Resp 17 B/P (MAP) 91/66 Pulse Ox 92 O2 Delivery Nasal Cannula O2 Flow Rate 2.00 Capillary Refill : Less Than 3 Seconds Height, Weight, BMI Height: 5'6.00" Weight: 130lbs. 2.0oz. 59.732807gh; 24.00 BMI Method:Stated General Appearance: WD/WN, no apparent distress, thin HEENT: PERRL/EOMI, normal ENT inspection, other (Mucous membranes somewhat dry. Purulent drainage on the conjunctiva of the left eye) Neck: non-tender, normal inspection Respiratory: lungs clear, normal breath sounds, no respiratory distress, no accessory muscle use Cardiovascular: regular rate, rhythm, no edema, no murmur Gastrointestinal: other (Firm, slightly distended abdomen with tenderness on the right lower aspect) Neurologic/Psychiatric: pocket builder II-XII nml as tested, motor weakness (Right upper and lower extremity), sensory deficit (Decreased sensation on the right extremities) Crainal Nerves: normal speech, PERRL, hearing deficit (R), hearing deficit (L) Coordination/Gait: normal finger to nose (Slightly sluggish mwtduw-gd-[id number] on the right) Skin: normal color, warm/dry Stroke NIH Stroke Scale Assessment Select: Post CT Level of Consciousness: 0=Alert (0), Level of Consciousness- Questions: 1=Answers one question (1), LOC Commands: 0=Performs both tasks (0), Gaze: Normal (0), Visual Davalos: 0=No visual loss (0), Facial Movement (Facial Paresis): 0=Normal symmetrical mnt (0), Motor Function-Arms Right: 1=Drift (1), Motor Function-Arms Left: 0=No drift (0), Motor Function-Legs Right: 3=No effort/gravity (3), Motor Function-Legs Left: 0=No drift (0), Limb Ataxia: 1=Present in one limb (1), Sensory: 1=Mild to Moderate loss (1), Dysarthria: 0=Normal (0), Extinction & Inattention: 0=No abnormality (0), Total: 7 Progress/Results/Core Measures Results/Orders Lab Results Laboratory Tests Test 01/24/21 21:40 01/24/21 21:50 01/24/21 21:51 01/24/21 22:35 Range/Units White Blood Count 13.1 H 4.3-11.0 10^3/uL Red Blood Count 4.46 4.30-5.52 10^6/uL Hemoglobin 13.8 13.3-17.7 g/dL Hematocrit 42 40-54 % Mean Corpuscular Volume 95 80-99 fL Mean Corpuscular Hemoglobin 31 25-34 pg Mean Corpuscular Hemoglobin Concent 33 32-36 g/dL Red Cell Distribution Width 15.6 H 10.0-14.5 % Platelet Count 238 130-400 10^3/uL Mean Platelet Volume 8.5 L 9.0-12.2 fL Immature Granulocyte % (Auto) 0 % Neutrophils (%) (Auto) 67 42-75 % Lymphocytes (%) (Auto) 21 12-44 % Monocytes (%) (Auto) 11 0-12 % Eosinophils (%) (Auto) 0 0-10 % Basophils (%) (Auto) 0 0-10 % Neutrophils # (Auto) 8.8 H 1.8-7.8 10^3/uL Lymphocytes # (Auto) 2.8 1.0-4.0 10^3/uL Monocytes # (Auto) 1.5 H 0.0-1.0 10^3/uL Eosinophils # (Auto) 0.1 0.0-0.3 10^3/uL Basophils # (Auto) 0.0 0.0-0.1 10^3/uL Immature Granulocyte # (Auto) 0.0 0.0-0.1 10^3/uL Prothrombin Time 14.4 12.2-14.7 SEC INR Comment 1.1 0.8-1.4 Activated Partial Thromboplast Time 22 L 24-35 SEC D-Dimer 0.61 H 0.00-0.49 UG/ML Sodium Level 140 135-145 MMOL/L Potassium Level 3.6 3.6-5.0 MMOL/L Chloride Level 105 98-107 MMOL/L Carbon Dioxide Level 24 21-32 MMOL/L Anion Gap 11 5-14 MMOL/L Blood Urea Nitrogen 16 7-18 MG/DL Creatinine 1.79 H 0.60-1.30 MG/DL Estimat Glomerular Filtration Rate 38 BUN/Creatinine Ratio 9 Glucose Level 122 H 70-105 MG/DL Calcium Level 9.3 8.5-10.1 MG/DL Corrected Calcium 9.3 8.5-10.1 MG/DL Total Bilirubin 0.3 0.1-1.0 MG/DL Aspartate Amino Transf (AST/SGOT) 15 5-34 U/L Alanine Aminotransferase (ALT/SGPT) 11 0-55 U/L Alkaline Phosphatase 80 40-136 U/L Total Creatine Kinase 44 30-200 U/L Troponin I < 0.028 <0.028 NG/ML Total Protein 7.4 6.4-8.2 GM/DL Albumin 4.0 3.2-4.5 GM/DL Serum Alcohol < 10 <10 MG/DL C-Reactive Protein High Sensitivity 0.29 0.00-0.50 MG/DL Salicylates Level < 5.0 L 5.0-20.0 MG/DL Acetaminophen Level < 10 L 10-30 UG/ML Influenza Type A (RT-PCR) Not Detected Not Detecte Influenza Type B (RT-PCR) Not Detected Not Detecte SARS-CoV-2 RNA (RT-PCR) Not Detected Not Detecte Urine Color YELLOW Urine Clarity CLEAR Urine pH 6.0 5-9 Urine Specific Protection 1.025 H 1.016-1.022 Urine Protein 2+ H NEGATIVE Urine Glucose (UA) NEGATIVE NEGATIVE Urine Ketones NEGATIVE NEGATIVE Urine Nitrite NEGATIVE NEGATIVE Urine Bilirubin NEGATIVE NEGATIVE Urine Urobilinogen 0.2 < = 1.0 MG/DL Urine Leukocyte Esterase TRACE H NEGATIVE Urine RBC (Auto) TRACE-I NEGATIVE Urine RBC RARE /HPF Urine WBC RARE /HPF Urine Squamous Epithelial Cells 10-25 H /HPF Urine Crystals NONE /LPF Urine Bacteria NEGATIVE /HPF Urine Casts PRESENT /LPF Urine Hyaline Casts 10-25 H /LPF Urine Mucus LARGE H /LPF Urine Culture Indicated NO Urine Opiates Screen POSITIVE H NEGATIVE Urine Oxycodone Screen NEGATIVE NEGATIVE Urine Methadone Screen NEGATIVE NEGATIVE Urine Propoxyphene Screen NEGATIVE NEGATIVE Urine Barbiturates Screen NEGATIVE NEGATIVE Ur Tricyclic Antidepressants Screen NEGATIVE NEGATIVE Urine Phencyclidine Screen NEGATIVE NEGATIVE Urine Amphetamines Screen NEGATIVE NEGATIVE Urine Methamphetamines Screen NEGATIVE NEGATIVE Urine Benzodiazepines Screen POSITIVE H NEGATIVE Urine Cocaine Screen NEGATIVE NEGATIVE Urine Cannabinoids Screen NEGATIVE NEGATIVE Test 01/24/21 22:47 Range/Units Glucometer 109 70-110 MG/DL My Orders Orders - KRISTINA MONCADA MD Cbc With Automated Diff (01/24/21 21:43) Protime With Inr (01/24/21 21:43) Partial Thromboplastin Time (01/24/21 21:43) Comprehensive Metabolic Panel (01/24/21 21:43) Fibrin Degradation Products (01/24/21 21:43) Troponin I (01/24/21 21:43) Ua Culture If Indicated (01/24/21 21:43) Chest 1 View, Ap/Pa Only (01/24/21 21:43) Ekg Tracing (01/24/21 21:43) Nothing By Mouth (01/25/21 Breakfast) Accucheck Stat ONCE (01/24/21 21:43) Ed Iv/Invasive Line Start (01/24/21 21:43) Ed Iv/Invasive Line Start (01/24/21 21:43) Vital Signs Stroke Patient Q15M (01/24/21 21:43) Ct Head Wo-R/O Stroke (01/24/21 21:43) O2 (01/24/21 21:43) Intake & Output 06,14,22 (01/24/21 21:43) Monitor-Rhythm Ecg Trace Only (01/24/21 21:43) Dysphagia Screening Tool (01/24/21 21:43) Post Thrombolytic Adminstratio (01/24/21 21:43) Lipid Panel (01/25/21 06:00) Alcohol (01/24/21 21:43) Drug Screen Stat (Urine) (01/24/21 21:43) Creatine Kinase (01/24/21 21:43) Covid 19 Inhouse Test (01/24/21 21:45) Influenza A And B By Pcr (01/24/21 21:45) Ct Cervical Spine Wo (01/24/21 21:46) Acetaminophen (01/24/21 21:52) Hs C Reactive Protein (01/24/21 21:52) Salicylate (01/24/21 21:52) Naloxone Injection (Narcan Injection) (01/24/21 22:00) Ed Iv/Invasive Line Start (01/24/21 22:30) Lactated Ringers (Lr 1000 Ml Iv Solution (01/24/21 22:30) Ct Chest/Abdomen/Pelvis Wo (01/24/21 23:22) Tetracaine 0.5% Ophth Jaimee Sdv (Tetracai (01/25/21 01:00) Fluorescein Strips (Twkxh-W-Sbubbf) (01/25/21 01:00) Balanced Salt Irrigation Soln (Bss Irrig (01/25/21 01:00) Lactated Ringers (Lr 1000 Ml Iv Solution (01/25/21 01:15) Gentamicin 0.3% Ophth Solution (Garamyci (01/25/21 01:30) Medications Given in ED Vital Signs/I&O 01/24/21 01/24/21 01/24/21 21:38 21:38 21:40 Temp 37.0 Pulse 77 77 Resp 17 17 B/P (MAP) 91/66 91/66 (74) Pulse Ox 92 91 91 O2 Delivery Nasal Cannula Room Air O2 Flow Rate 2.00 01/25/21 00:00 Intake Total 1200 ml Balance 1200 ml Blood Pressure Mean: 74 FSBG Bedside Testing Finger Stick Blood Glucose: 108 Progress Progress Note : Time: 01:10 Progress Note Nasal cannula was applied and patient's hypoxia resolved. Stroke activation was paged and c-collar was applied. Patient was taken to CT. No acute findings were seen on CT of the head or cervical spine. C-collar was cleared. When patient returned from CT he was given Narcan 0.4 mg IV. This had a positive result and patient became conversational. He went through a brief period of withdrawal with tremors. He remained alert afterward. NIH score could then be obtained. He scored a 7 for deficits on the right side. IV fluids were infused due to acute kidney injury and marginal blood pressures. He is now receiving his third liter of IV fluid with minimal urine output. After patient became alert he complained of right-sided abdominal pain. He does have some firmness and fullness in that region. CT is pending at this time. I did discuss this case with Dr. Castillo, stroke neurologist at [facility] at 23:15. Because of the prolonged time from last known well status and his notable renal dysfunction, CT angiogram of the head and neck was not recommended. At this time we are awaiting CT results for disposition on admission. I also evaluated his left eye. Jhony-Pen measurement was 17. I was evaluated with fluorescein. No abrasions were noted but there is a general haziness of the cornea. There appears to be a stye on the lower left eyelid upon retraction. No foreign b odies were appreciated. Vision is grossly intact. Eye was irrigated with balanced saline and gentamicin drops were applied. Initial ECG Impression Date: Jan 24, 2021 Initial ECG Impression Time: 21:40 Initial ECG Rate: 77 Initial ECG Rhythm: Normal Sinus Initial ECG Intervals: Normal Initial ECG Impression: Normal Comment Normal sinus rhythm with no ST elevation or depression. No abnormal intervals or axis deviation. Diagnostic Imaging Diagonstic Imaging: Xray Plain Films/CT/US/NM/MRI: chest Comments Chest x-ray viewed by me. Report not yet available. Chronic fibrotic changes noted appearing interstitial changes noted without acute abnormality. Diagonstic Imaging: CT Plain Films/CT/US/NM/MRI: c-spine, head Comments CT head and C-spine viewed by me. Stat rad report reviewed and discussed with the radiologist. No acute findings appreciated. Diagonstic Imaging: CT Plain Films/CT/US/NM/MRI: chest, abdomen, pelvis Comments CT chest, abdomen, and pelvis viewed by me. Stat rad report reviewed. Departure Communication (Admissions) Time/Spoke to Admitting Phy: 02:00 Dr. Fitzgerald Impression Primary Impression: Right sided weakness Additional Impressions: Altered mental status Qualified Codes: R41.82 - Altered mental status, unspecified Acute kidney injury Right-sided abdominal pain of unknown cause Opioid overdose Qualified Codes: T40.2X4A - Poisoning by other opioids, undetermined, initial encounter Hordeolum of left eye Qualified Codes: H00.025 - Hordeolum internum left lower eyelid Disposition: ADMITTED INPATIENT Condition: Improved Admissions Decision to Admit Reason: Admit from ER (General) Decision to Admit/Date: Jan 24, 2021 Time/Decision to Admit Time: 23:00 Departure-Patient Inst. Referrals: [facility] (PCP/Family) Primary Care Physician Scripts No Active Prescriptions or Reported Meds KRISTINA MONCADA MD Jan 25, 2021 00:54
[2021-01-25] MEDS ORDERED: TETRACAINE 0.5% OPHTH SOLN 4 ML BTL (SINGLE DOSE ONLY) OU ONE (01:00)
[2021-01-25] MEDS ORDERED: BSS 15 ML IR ONE (01:00)
[2021-01-25] MEDS ORDERED: FLUORESCEIN (FLUOR-I-STRIPS) 1 MG STRP OU ONE (01:00)
[2021-01-25] MEDS ORDERED: LACTATED RINGERS 1,000 ML IV ONE (01:15)
[2021-01-25] MEDS: GENTAMICIN 0.3% OPHTH SOLN 5 ML OP SCH ×13 (01:23→22:59)
[2021-01-25] MEDS ORDERED: ASPIRIN 325 MG (5 GR) TABLET PO ONE (02:30)
[2021-01-25] MEDS ORDERED: ONDANSETRON 4 MG/2 ML (SDV) Z0FRAN IV PRN (04:15)
[2021-01-25] MEDS ORDERED: ACETAMINOPHEN 500 MG TAB (TYLENOL) PO PRN ×2 (04:15→18:00)
[2021-01-25] MEDS ORDERED: ASPIRIN 325 MG (5 GR) TABLET ONE (04:49)
[2021-01-25] MEDS: NS IV 1000 ML 1,000 ML IV SCH ×5 (04:53→19:53)
[2021-01-25 05:19] LABS: CHLORIDE 105 MMOL/L (98-107); SODIUM 140 MMOL/L (135-145)
[2021-01-25 05:21] LABS: GLUCOSE 101 MG/DL (70-105); TRIGLYCERIDES 186 MG/DL (<150); VLDL CHOLESTEROL 37 MG/DL (5-40)
[2021-01-25 05:22] LABS: CARBON DIOXIDE 22 MMOL/L (21-32)
[2021-01-25 05:25] LABS: CREATININE SERUM 1.15 MG/DL (0.60-1.30); GFR ESTIMATED > 60
[2021-01-25 05:26] LABS: BUN/CREATININE RATIO 14; CHOLESTEROL 191 MG/DL (< 200)
[2021-01-25 05:27] LABS: HDL CHOLESTEROL 36 MG/DL (40-60)
--- NOTE | 2021-01-25 06:20 | History & Physical-Hospitalist ---
History of Present Illness HPI/Chief Complaint Chief complaint: Right-sided weakness History of present illness: This is a 65-year-old white male patient of [facility] who presented with to the ER with right-sided weakness and acute kidney injury. He underwent the stroke protocol revealing no acute CVA but needed risk ratification with echocardiogram and MRI with ultrasound of carotids to fully evaluate. Sisters are at the bedside currently. Patient is very hard of hearing making it difficult to communicate. IV fluids were given for elevated creatinine and dehydration. He has worked with PT and OT and actually done very well. We will try to move to fourth floor. Spoke with cardiology. Source: patient, family Exam Limitations: clinical condition Date Seen 01/25/21 Time Seen by a Provider: 11:00 Attending Physician Mercedez Fitzgerald MD [facility] Referring Physician Date of Admission Jan 25, 2021 at 02:13 Home Medications & Allergies Home Medications Reviewed patient Home Medication Reconciliation performed by pharmacy medication reconciliations quick service technician and/or nursing. Patients Allergies have been reviewed. Allergies Allergies Coded Allergies ibuprofen (Verified Allergy, Unknown, 04/05/15) HYPERTENSION tramadol (Verified Adverse Reaction, Unknown, VOMIT, 10/03/18) Past Tozaysf-Iotzkd-Grlufp Hx Patient Social History Marrital Status: single Employed/Student: unemployed Tobacco Use?: Yes Tobacco type used: Cigarettes Smoking Status: Current Everyday Smoker Use of E-Cig and/or Vaping dev: No Substance use?: No Alcohol Use?: No Pt feels they are or have been: No Immunizations Up To Date Date of Influenza Vaccine: Jun 05, 2020 Tetanus Booster (TDap): Less Than 5 Years Hepatitis A: No Hepatitis B: No PED Vaccines UTD: Yes Date of Pneumonia Vaccine: Jun 05, 2020 Seasonal Allergies Seasonal Allergies: No Current Status Advance Directives: No Communicates: Verbally Primary Language: Gabonese Preferred Spoken Language: Gabonese Is interpretation needed?: No Implanted or Applied Medical D: None Past Medical History Surgeries: Appendectomy, Ear Surgery, Gallbladder, Orthopedic Chronic Bronchitis Currently Using CPAP: No Currently Using BIPAP: No Coronary Artery Disease, High Cholesterol, Hypertension Sexually Transmitted Disease: No HIV/AIDS: No Gastroesophageal Reflux Degenerate Disk Disease, Arthritis, Chronic Back Pain Chronic Ear Infection Hearing Impairment: Hard of Hearing Skin Did You Recieve Any Treatments: Yes What Type of Treatment Did You: Surgical Intervention Anxiety, Suicide Attempts, Depression Blood Disorders: No Adverse Reaction/Blood Tranf: No (N/A) Family Medical History Cancer 03 FATHER (PROSTATE) 03 MOTHER (BREAST CA ) 09 BROTHER (THROAT/PANCREATIC) 09 SISTER (LIVER) DEAFNESS 03 FATHER 09 BROTHER Family history: Breast disease 03 MOTHER (BREAST CA) History of - respiratory disease Prostate cancer 03 FATHER Stroke 03 MOTHER Visual impairment No Pertinent Family Hx Review of Systems Constitutional: malaise, weakness Psychiatric/Neurological: Depressed Physical Exam Physical Exam Vital Signs Vital Signs - First Documented 01/24/21 01/24/21 21:38 21:40 Temp 37.0 Pulse 77 Resp 17 B/P (MAP) 91/66 Pulse Ox 92 O2 Delivery Nasal Cannula O2 Flow Rate 2.00 Capillary Refill : Less Than 3 Seconds Height, Weight, BMI Height: 5'6.00" Weight: 130lbs. 2.0oz. 59.923739lu; 22.07 BMI Method:Stated General Appearance: No Apparent Distress, Chronically ill Eyes: Right Eye Normal Inspection, Right Eye PERRL HEENT: PERRL/EOMI, Normal ENT Inspection, Pharynx Normal, Moist Mucous Membranes, Other (Hard of hearing) Neck: Full Range of Motion, Normal Inspection, Non Tender Respiratory: Chest Non Tender, Lungs Clear, Normal Breath Sounds, No Accessory Muscle Use, No Respiratory Distress Cardiovascular: Regular Rate, Rhythm, No Edema, No Gallop, No JVD, No Murmur, Normal Peripheral Pulses Gastrointestinal: Normal Bowel Sounds, No Organomegaly, No Pulsatile Mass, Non Tender, Soft Back: Normal Inspection, No CVA Tenderness, No Vertebral Tenderness Extremity: Normal Capillary Refill, Normal Inspection, Normal Range of Motion, Non Tender, No Calf Tenderness, No Pedal Edema Neurologic/Psychiatric: Alert, Oriented x3, No Motor/Sensory Deficits, Normal Mood/Affect, Abnormal Gait, Motor Weakness (Generalized) Skin: Normal Color, Warm/Dry Lymphatic: No Adenopathy Results Results/Procedures Labs Laboratory Tests 01/24/21 21:40 01/25/21 04:35 01/26/21 03:25 Patient resulted labs reviewed. Assessment/Plan Admission Diagnosis Assessment: Right-sided weakness now improved CAD Hypertension Hyperlipidemia Severe presbycusis Current smoker COPD Plan: Appreciate cardiology consult Echo MRI PT and OT Admission Status: Inpatient Order (span 2 midnights) Reason for Inpatient Admission: Neurological deficit Diagnosis/Problems Diagnosis/Problems (1) Right sided weakness Status: Acute (2) Acute kidney injury Status: Acute (3) Altered mental status Status: Acute Qualifiers: Altered mental status type: unspecified Qualified Codes: R41.82 - Altered mental status, unspecified STALIN KISER DO Jan 25, 2021 06:20
--- NOTE | 2021-01-25 06:23 | Diagnostic Imaging Report ---
INDICATION: Hypoxemia Portable chest 10:13 PM There are emphysematous changes in the lungs. There are no infiltrates, effusions or pneumothoraces. IMPRESSION: COPD. No acute abnormality seen. Dictated by: Dictated on workstation # [id number]
--- NOTE | 2021-01-25 06:39 | Diagnostic Imaging Report ---
Clinical indications: Patient with altered mental status. Unknown fall. Exam: Axial CT scan of the brain without IV contrast with coronal and sagittal reformatted images. Auto Exposure Controls were utilized during the CT exam to meet ALARA standards for radiation dose reduction. Comparison: Head CT without contrast dated 01/11/2021. Findings: There is no evidence of acute cerebral infarct, intracranial hemorrhage, or gross mass effect. The brain parenchymal volume appears appropriate for patient's age. There is no significant change to the patchy areas of low-attenuation white matter changes involving both cerebral hemispheres, likely representing chronic small vessel ischemic disease. There is normal aguilar-white matter distinction. There is no significant midline shift or herniation. There is no evidence of hydrocephalus. The basal cisterns are unremarkable. The skull, extracranial soft tissue, and orbits are unremarkable. The paranasal sinuses are unremarkable. There is stable complete consolidation of the right mastoid air cells and right middle ear region. Impression: 1: There is no evidence of acute intracranial process. 2: Stable complete consolidation of the right middle ear and right mastoid air cells which may related to otomastoiditis. I agree with [facility] report. Dictated by: Dictated on workstation # [id number]
--- NOTE | 2021-01-25 06:59 | Diagnostic Imaging Report ---
CLINICAL INDICATION: Patient with altered mental status. Unknown fall. EXAM: Axial CT scan of the cervical spine performed without IV contrast. Sagittal and coronal reformatted images were created. Auto Exposure Controls were utilized during the CT exam to meet ALARA standards for radiation dose reduction. COMPARISON: Axial CT scan of the cervical spine without contrast dated 01/11/2021. CT scan of the cervical spine without contrast dated 08/29/2017. FINDINGS: There is no acute cervical spine fracture or dislocation. Again seen C3-C5 anterior cervical disk fusion and C6-C7 anterior cervical disk fusion. There is solid bony bridging/fusion seen at the C3-C4 region and C5-C6 region. The other regions show no significant bony bridging/fusion and pseudoarthrosis may be considered. Patient was noted to have this cervical spine hardware on comparison CT scan of the cervical spine dated 08/29/2017. There is a fracture of the right C5 screw which is new compared to the prior study. There is no evidence of ostial lysis. There are hypertrophic anterior spurs involving the upper cervical and lower cervical spine regions. There is no significant bony central canal stenosis. There is stable moderate to severe right C4-C5 and C5-C6 bilateral neural foramen narrowing from facet arthropathy and uncinate spurs. Multiple low-density areas involving the thyroid gland is seen bilaterally. Emphysematous lung disease is partially visualized. IMPRESSION: 1: There is no evidence of acute cervical spine fracture or dislocation. 2: C3-C5 and C6-C7 anterior cervical disk fusion hardware is seen. There is no significant bony bridging/fusion at the C5-C6 and C6-C7 levels which correlates to pseudoarthrosis. There is interval fracture of the right C5 screw. 3: Multiple thyroid lobe nodules. Nonemergent thyroid ultrasound would better evaluate. 4: Emphysematous lung disease. I agree with [facility] report. Dictated by: Dictated on workstation # [id number]
--- NOTE | 2021-01-25 07:25 | Diagnostic Imaging Report ---
PROCEDURE: CT chest, abdomen, and pelvis without contrast. TECHNIQUE: Multiple contiguous axial images were obtained through the chest, abdomen, and pelvis without the use of intravenous contrast. Auto Exposure Controls were utilized during the CT exam to meet ALARA standards for radiation dose reduction. INDICATION: Abdominal pain and distention. There are emphysematous changes in the lungs. There are no infiltrates, effusions or pneumothoraces. There are no mediastinal masses. Liver appears normal. Gallbladder surgically absent. Spleen is not enlarged. Pancreas is unremarkable. There is atherosclerosis of aorta. Kidneys and adrenals appear normal. Patient has had extensive fusion of the thoracolumbar spine. Small bowel is not dilated. Colon is unremarkable. There is diffuse thickening of the urinary bladder wall. Urinary bladder is decompressed with Parada catheter. IMPRESSION: Cystitis. COPD. Agree with preliminary interpretation. Dictated by: Dictated on workstation # [id number]
[2021-01-25] MEDS ORDERED: ASPIRIN 300 MG (5 GR) SUPPOSITORY PR PRN (09:00)
[2021-01-25] MEDS: ASPIRIN E.C. 325 MG (ECOTRIN) TABLET PO SCH (09:09)
[2021-01-25] MEDS: DOCUSATE SODIUM 100 MG (COLACE) CAP PO SCH ×2 (09:31→19:50)
--- NOTE | 2021-01-25 10:12 | Physical Therapy Evaluation ---
PT Evaluation-General Medical Diagnosis Admission Date Jan 25, 2021 at 02:13 Medical Diagnosis: right sided weakness/DAKOTA/opoid OD Onset Date: Jan 25, 2021 Therapy Diagnosis Therapy Diagnosis: generalized weakness Height/Weight Height (Feet): 5 Height (Inches): 6.00 Weight (Pounds): 130 Weight (Ounces): 2.0 Precautions Precautions/Isolations: Fall Prevention, Standard Precautions Referral Physician: Amilcar Reason for Referral: Evaluation/Treatment Medical History Pertinent Medical History: CAD, HTN Additional Medical History suicide attempts Current History EMS secondary family found patient sitting on the porch minimally responsive Reviewed History: Yes Social History Home: Single Level Current Living Status: Alone Prior Prior Level of Function SCALE: Activities may be completed with or without assistive devices. 8-Vgalscdnkx-gghoobd completes the activity by him/herself with no assistance from a helper. 5-Set-up or Clean-up Assistance-helper sets up or cleans up; patient completes activity. [place] assists only prior to or following the activity. 4-Supervision or Touching Assistance-helper provides verbal cues and/or touching/steadying and/or contact guard assistance as patient completes activity. Assistance may be provided throughout the activity or intermittently. 3-Partial/Moderate Assistance-helper does LESS THAN HALF the effort. [place] lifts, holds or supports trunk or limbs, but provides less than half the effort. 2-Substantial/Maximal Assistance-helper does MORE THAN HALF the effort. [place] l ifts or holds trunk or limbs and provides more than half the effort. 0-Sowsoezjk-hoppjx does ALL the effort. Patient does none of the effort to complete the activity. Or, the assistance of 2 or more helpers is required for the patient to complete the activity. If activity was not attempted, code reason: 7-Patient Refused. 9-Not Applicable-not attempted and the patient did not perform the activity before the current illness, exacerbation or injury. 10-Not Attempted due to Environmental Limitations-(lack of equipment, weather restraints, etc.). 88-Not Attempted due to Medical Conditions or Safety Concerns. Bed Mobility: 6 Transfers (B,C,W/C): 6 Gait: 6 Stairs: 6 Indoor Mobility (Ambulation): Independent Stairs: Independent Prior Devices Use: None PT Evaluation-Current Subjective Patient reluctantly agrees to PT. Patient very PILOT STATION and states, "My right leg doesn't work." Objective Patient Orientation: Person, Time, Situation Attachments: Parada Catheter, IV ROM/Strength ROM Lower Extremities bilateral LE WFL Strength Lower Extremities 4/5 grossly bilateral LE all planes Integumentary/Posture Bowel Incontinence: No Bladder Incontinence: Parada Cath Posture flexed bilateral knees and trunk in stand to FWW Neuromuscular (Tone, Coordination, Reflexes) grossly intact Sensory Vision: Functional Hearing: Impaired Transfers Roll Left to Right (QC): 6 Sit to Lying (QC): 6 Lying to Sitting/Side of Bed(Q: 6 Sit to Stand (QC): 4 (CGA for safety) Chair/Kbz-se-Dkwsq Xfer(QC): 4 (CGA for safety) Gait Does the Patient Walk?: Yes Mode of Locomotion: Walk Anticipated Mode of Locomotion: Walk Walk 10 feet (QC): 4 (CGA for safety) Walk 50 ft with 2 Turns(QC): 4 (CGA for safety) Walk 150 ft (QC): 4 (CGA for safety) Distance: 300' Gait Assistive Device: FWW Comments/Gait Description NBOS, shuffle gait sequence/flexed knees Balance Sitting Static: Normal Sitting Dynamic: Normal Standing Static: Normal Standing Dynamic: Normal Assessment/Needs 65 y.o. male, will be seen short term by skilled PT to address functional strength and mobility to improve current LOF to safely return to home at maximum LOF. Rehab Potential: Fair PT Elevated Guard Goals Long-Term Goals PT Long-Term Goals Time Frame: Feb 02, 2021 Roll Left & Right (QC): 6 Sit to Lying (QC): 6 Lying-Sitting on Side/Bed(QC): 6 Sit to Stand (QC): 6 Chair/Zbs-qz-Zzsux Xfer(QC): 6 Toilet Transfer (QC): 6 Does the Patient Walk: Yes Walk 10 feet (QC): 6 Walk 50ft with 2 Turns (QC): 6 Walk 150 ft (QC): 6 PT Plan Problem List Problem List: Activity Tolerance, Functional Strength, Safety, Balance, Gait, Transfer, Bed Mobility Treatment/Plan Treatment Plan: Continue Plan of Care Treatment Plan: Bed Mobility, Education, Functional Activity Lizett, Functional Strength, Gait, Safety, Therapeutic Exercise, Transfers Treatment Duration: Feb 02, 2021 Frequency: 6 times per week Estimated Hrs Per Day: .25 hour per day Time/GCodes Time In: 805 Time Out: 823 Total Billed Treatment Time: 15 Total Billed Treatment 1 visit EVModC 15 min MAG ZULETA PT Jan 25, 2021 10:12
--- NOTE | 2021-01-25 11:42 | Consultation-Cardiology ---
HPI-Cardiology Cardiology Consultation: Date of Consultation 01/25/21 Date of Admission Attending Physician Mercedez Fitzgerald MD Admitting Physician [place] Consulting Physician LUZ ELENA ARVIZU JR, MD HPI: Time Seen by a Provider: 11:36 Chief Complaint: Reason for consultation: Possible transient ischemic attack. He is a pleasant 65-year-old male with no known history of coronary artery disease or previous cerebrovascular disease. He has a history of hypertension, hyperlipidemia, chronic obstructive pulmonary disease noted on previous chest x- rays, and cigarette smoking. Yesterday he was visiting one of his nieces and according to his sister who was at the bedside, he had been sitting outside on the porch for approximately 4 hours. He remembers sitting there and tells me he was smoking cigarettes and drinking Mountain Dew. After a while, his niece went to check on him and he was sitting on the porch but unresponsive. He was not following commands. His niece called her aunt who then went to the house to check on him. He was also unresponsive to his sister so she called 911 and he was brought to the hospital for further evaluation. Overnight, his neurologic symptoms resolved spontaneously. When I saw the patient he was alert and oriented x3. He told me he needs to quit smoking because he has been having worsening dyspnea on exertion. He denies any chest discomfort. He denies any paroxysmal nocturnal dyspnea, orthopnea, palpitations, lightheadedness, or syncope. He tells me he gets occasional mild ankle edema and this is because he does a lot of walking. He tells me 5 or 6 days a week he will walk 15 miles a day. He smokes approximately 1 pack of cigarettes per day. He does not drink alcohol or use any illegal drugs. Review of Systems-Cardiology Review of Systems Other comments Review of 10 organ systems is as per the history of present illness, otherwise negative. IZU-Xrbuvw-Eyghot Hx Patient Social History Smoking Status: Current Everyday Smoker 2nd Hand Smoke Exposure: Yes Have you traveled recently?: No Alcohol Use?: No Substance type: Caffeine Pt feels they are or have been: No Tobacco type used: Cigarettes Immunizations Up To Date Tetanus Booster (TDap): Less than 5yrs Date of Pneumonia Vaccine: Jun 05, 2020 Date of Influenza Vaccine: Jun 05, 2020 Past Medical History PMH As described under Assessment. Family Medical History Family Medical History: He does not know of any family history of premature coronary artery disease. Family History: Cancer 03 FATHER (PROSTATE) 03 MOTHER (BREAST CA ) 09 BROTHER (THROAT/PANCREATIC) 09 SISTER (LIVER) DEAFNESS 03 FATHER 09 BROTHER Family history: Breast disease 03 MOTHER (BREAST CA) History of - respiratory disease Prostate cancer 03 FATHER Stroke 03 MOTHER Visual impairment Allergies and Home Medications Allergies Coded Allergies: ibuprofen (Verified Allergy, Unknown, 04/05/15) HYPERTENSION tramadol (Verified Adverse Reaction, Unknown, VOMIT, 10/03/18) Home Medications Amoxicillin/Potassium Clav 1 Each Tablet, 1 EACH PO BID Prescribed by: ALBA ROSA on 01/11/211815 Ofloxacin 5 Ml Drops, 5 DROPS RIGHT EAR BID Prescribed by: ALBA ROSA on 01/11/211815 Prednisone 20 Mg Tab, 20 MG PO DAILY Prescribed by: KRISTINA GOMES on 10/12/19 0125 Patient Home Medication List Home Medication List Reviewed: Yes Physical Exam-Cardiology Physical Exam Vital Signs/I&O 01/25/21 01/25/21 01/25/21 01/25/21 03:45 03:55 04:00 04:05 Temp 37.2 Pulse 72 72 66 Resp 16 18 B/P (MAP) 120/70 135/80 (98) Pulse Ox 94 94 93 O2 Delivery Nasal Cannula Room Air Room Air O2 Flow Rate 2.00 01/25/21 01/25/21 01/25/21 01/25/21 07:00 07:39 08:00 12:00 Temp 36.3 Pulse 69 69 Resp 18 B/P (MAP) 141/77 (98) Pulse Ox 95 O2 Delivery Room Air Room Air Room Air 01/25/21 01/25/21 12:14 12:47 Temp 37.4 Pulse 65 66 Resp 18 B/P (MAP) 117/76 (90) Pulse Ox 95 O2 Delivery Room Air 01/25/21 00:00 Intake Total 1200 ml Balance 1200 ml Capillary Refill : Less Than 3 Seconds Constitutional: appears stated age, AAO x 3, apparent distress, well-developed, well-nourished HEENT: EOMI Neck: non-tender, full range of motion, supple, normal inspection, carotid pulses are 2 + bilaterally, with good upstrokes Respiratory: chest expansion is symmetric (Scattered inspiratory wheezes. No crackles or rhonchi.), other Cardiovascular: regular rate-rhythm, other (No murmurs, rubs or gallops appreciated.) Gastrointestinal: other (The abdomen is soft, nontender and nondistended.) Rectal: deferred Extremities: normal range of motion, non-tender, normal inspection, no lower extremity edema bilateral Neurologic/Psychiatric: precipitator II-XII nml as tested, alert, normal mood/affect, oriented x 3, power is 5/5 both on sides Skin: normal color, warm/dry Data Review Labs Laboratory Tests 01/24/21 21:40: White Blood Count 13.1H, Red Blood Count 4.46, Hemoglobin 13.8, Hematocrit 42, Mean Corpuscular Volume 95, Mean Corpuscular Hemoglobin 31, Mean Corpuscular Hemoglobin Concent 33, Red Cell Distribution Width 15.6H, Platelet Count 238, Mean Platelet Volume 8.5L, Immature Granulocyte % (Auto) 0, Neutrophils (%) (Auto) 67, Lymphocytes (%) (Auto) 21, Monocytes (%) (Auto) 11, Eosinophils (%) (Auto) 0, Basophils (%) (Auto) 0, Neutrophils # (Auto) 8.8H, Lymphocytes # (Auto) 2.8, Monocytes # (Auto) 1.5H, Eosinophils # (Auto) 0.1, Basophils # (Auto) 0.0, Immature Granulocyte # (Auto) 0.0, Prothrombin Time 14.4, INR Comment 1.1, Activated Partial Thromboplast Time 22L, D-Dimer 0.61H, Sodium Le ang 140, Potassium Level 3.6, Chloride Level 105, Carbon Dioxide Level 24, Anion Gap 11, Blood Urea Nitrogen 16, Creatinine 1.79H, Estimat Glomerular Filtration Rate 38, BUN/Creatinine Ratio 9, Glucose Level 122H, Calcium Level 9.3, Corrected Calcium 9.3, Total Bilirubin 0.3, Aspartate Amino Transf (AST/SGOT) 15, Alanine Aminotransferase (ALT/SGPT) 11, Alkaline Phosphatase 80, Total Creatine Kinase 44, Troponin I < 0.028, Total Protein 7.4, Albumin 4.0, Serum Alcohol < 10 01/24/21 21:50: C-Reactive Protein High Sensitivity 0.29, Salicylates Level < 5.0L, Acetaminophen Level < 10L 01/24/21 21:51: Influenza Type A (RT-PCR) Not Detected, Influenza Type B (RT-PCR) Not Detected, SARS-CoV-2 RNA (RT-PCR) Not Detected 01/24/21 22:35: Urine Color YELLOW, Urine Clarity CLEAR, Urine pH 6.0, Urine Specific [place] 1.025H, Urine Protein 2+H, Urine Glucose (UA) NEGATIVE, Urine Ketones NEGATIVE, Urine Nitrite NEGATIVE, Urine Bilirubin NEGATIVE, Urine Urobilinogen 0.2, Urine Leukocyte Esterase TRACEH, Urine RBC (Auto) TRACE-I, Urine RBC RARE, Urine WBC RARE, Urine Squamous Epithelial Cells 10-25H, Urine Crystals NONE, Urine Bacteria NEGATIVE, Urine Casts PRESENT, Urine Hyaline Casts 10-25H, Urine Mucus LARGEH, Urine Culture Indicated NO, Urine Opiates Screen POSITIVEH, Urine Oxycodone Screen NEGATIVE, Urine Methadone Screen NEGATIVE, Urine Propoxyphene Screen NEGATIVE, Urine Barbiturates Screen NEGATIVE, Ur Tricyclic Antidepressants Screen NEGATIVE, Urine Phencyclidine Screen NEGATIVE, Urine Amphetamines Screen NEGATIVE, Urine Methamphetamines Screen NEGATIVE, Urine Benzodiazepines Screen POSITIVEH, Urine Cocaine Screen NEGATIVE, Urine Cannabinoids Screen NEGATIVE 01/24/21 22:47: Glucometer 109 01/25/21 04:35: Sodium Level 140, Potassium Level 4.0, Chloride Level 105, Carbon Dioxide Level 22, Anion Gap 13, Blood Urea Nitrogen 16, Creatinine 1.15, Estimat Glomerular Filtration Rate > 60, BUN/Creatinine Ratio 14, Glucose Level 101, Calcium Level 9.0, Triglycerides Level 186H, Cholesterol Level 191, LDL Cholesterol Direct 134H, VLDL Cholesterol 37, HDL Cholesterol 36L ECG Impression ECG Comment Sinus rhythm. A/P-Cardiology Assessment/Admission Diagnosis Transient ischemic attack. Unclear whether or not he had a transient ischemic attack or possibly just was suffering from heat stroke. His head CT did not show any evidence of subacute stroke. He should be undergoing an MRI of the brain later today. I recommend he start on low strength aspirin and statin medication. His echocardiogram did not show a room in the structural heart disease to explain the symptoms. We may need to consider an outpatient event monitor after discharge. We will await the results of the brain MRI. Essential hypertension. He tells me he has not taken his blood pressure medications for 3 months. He ran out of refills and did not go back to the doctor for more refills. He will need to be placed on the appropriate antihypertensive therapy. Mixed hyperlipidemia. Start high-dose statin in light of the acute neurologic findings. Cigarette smoker. Cigarette smoking cessation was strongly encouraged. He seems like he really knows he needs to quit. LUZ ELENA ARVIZU JR, MD Jan 25, 2021 11:42
--- NOTE | 2021-01-25 12:48 | Diagnostic Imaging Report ---
PROCEDURE: US carotid duplex, bilateral. INDICATION: Right-sided weakness. History of tobacco use and hypertension. TECHNIQUE: Multiple real-time grayscale images were obtained over the carotid arteries in various projections bilaterally. Additional spectral analysis and color Doppler and Duplex images were also obtained. CORRELATION: None FINDINGS: Right carotid circulation: The right common carotid artery is normal in course and caliber. Very mild calcification at the carotid bifurcation including origin of the internal and external carotid artery. No hemodynamically significant stenosis is present. Left carotid circulation: The left common carotid artery is normal in course and caliber. Very mild calcification at the carotid bifurcation including origin of the internal and external carotid artery. No hemodynamically significant stenosis is present. Antegrade flow in the bilateral vertebral arteries. DOPPLER (peak systolic velocity M/S Right Left CCA .45 .71 ICA Proximal .61 .53 ICA Mid .74 .62 ICA Distal .65 .92 RATIO 1.6 1.3 ECA 1.4 .80 VERT .50 .53 IMPRESSION: 1. Mild atherosclerosis involving carotid bifurcation and proximal internal and external carotid arteries. 2. No sonographic evidence of hemodynamically significant stenosis based on flow velocity criteria. Parameters based on the consensus panel Orta-Scale and Doppler ultrasound criteria published June 2003, Radiology, Volume 229. Dictated by: Dictated on workstation # [id number]
--- NOTE | 2021-01-25 14:44 | Diagnostic Imaging Report ---
PROCEDURE: MR imaging of the brain without contrast. TECHNIQUE: Multiplanar, multisequence MR imaging of the brain was performed without contrast. INDICATION: Strokelike symptoms. Left-sided weakness. Opioid overdose. COMPARISON: CT head on 01/24/2021. Findings: No acute ischemia, mass, or hemorrhage. Focal and confluent areas of T2 hyperintense signal are seen throughout the periventricular and subcortical white matter of the bilateral cerebral hemispheres. The ventricles, cortical sulci, and basilar cisterns are symmetric and unremarkable. The sellar and suprasellar regions have a normal appearance. The brainstem and posterior fossa are unremarkable. The paranasal sinuses demonstrate normal signal characteristics. Fluid is seen throughout the right mastoid air cells and right middle ear cavity. The globes and orbits are symmetric and unremarkable. The scalp and calvarium have a normal appearance. Impression: 1. No acute ischemia, mass, or hemorrhage. 2. Chronic microvascular disease. 3. Fluid in the right mastoid air cells and right middle ear cavity, which may represent otomastoiditis. Dictated by: Dictated on workstation # [id number]
--- NOTE | 2021-01-25 14:49 | Diagnostic Imaging Report ---
PROCEDURE: MR imaging cervical spine without contrast. TECHNIQUE: Multiplanar, multisequence MR imaging of the cervical spine was performed without contrast. INDICATION: Right-sided weakness. Stroke like symptoms. Opioid overdose. COMPARISON: 01/24/2021. 01/25/2013. FINDINGS: No acute fracture or dislocation is seen in the cervical spine. ACDF changes are visualized from C3 to C5 and C6 to C7. The vertebral body heights are well maintained. No focal osseous lesions. The craniocervical junction is maintained. The cervical spinal cord demonstrates normal intrinsic signal. No epidural collections are seen. The included brainstem and posterior fossa have normal appearance. Multilevel degenerative changes are seen in the cervical spine with posterior disc bulges and uncovertebral arthropathy. C2-C3: Posterior disc bulge, buckling of ligamentum flavum, and uncovertebral arthropathy results in moderate spinal canal stenosis and moderate right and mild left foraminal stenosis. C3-C4: Uncovertebral arthropathy results in no significant spinal canal narrowing and mild bilateral foraminal narrowing. C4-C5: Uncovertebral arthropathy and buckling of ligamentum flavum results in mild spinal canal narrowing and mild to moderate right and mild left foraminal narrowing. C5-C6: Uncovertebral arthropathy results in mild spinal canal narrowing and errt-bl-jtvsoxzw bilateral foraminal narrowing. C6-C7: Buckling of ligamentum flavum and uncovertebral arthropathy results in moderate spinal canal stenosis and mild to moderate right and moderate left foraminal stenosis. C7-T1: Posterior disc bulge and buckling of ligamentum flavum results in mild spinal canal narrowing and no significant foraminal narrowing. The soft tissues of neck are unremarkable. Impression: 1. No acute fracture or dislocation of the cervical spine. 2. Multilevel degenerative changes in the cervical spine, greatest at C2-C3 and C6-C7. Findings have progressed since the prior MRI cervical spine from 2012, particularly at the C2-C3 level. 3. ACDF changes from C3 to C5 and C6 to C7. Dictated by: Dictated on workstation # [id number]
--- NOTE | 2021-01-25 14:56 | Occupational Therapy Eval ---
OT Evaluation-General/PLF Medical Diagnosis Admission Date Jan 25, 2021 at 02:13 Medical Diagnosis: right sided weakness/DAKOTA/opoid OD Onset Date: Jan 24, 2021 Therapy Diagnosis Therapy Diagnosis: decreased self care, weakness, decr activity brenda, decr funct mobility Height/Weight Height (Feet): 5 Height (Inches): 6.00 Weight (Pounds): 130 Weight (Ounces): 2.0 Precautions Precautions/Isolations: Fall Prevention, Standard Precautions Referral Physician: Amilcar Referral Reason: Evaluation/Treatment Medical History Pertinent Medical History: Arthritis, CAD, GERD, HTN, Smoking Additional Medical History Chronic bronchitis. Chronic L shoulder pain. Degenerative disc disease. Chronic back pain. Chronic ear infection. Hard of hearing. Anxiety, suicide attempts, depression. Current History Unresponsive on porch. EMS admission.R sided weakness, altered mental status. Acute kidney injury. Opioid overdose Reviewed History: Yes Social History Home: Single Level Current Living Status: Friend ADL-Prior Level of Function SCALE: Activities may be completed with or without assistive devices. 2-Rsouuejwae-uuewtwk completes the activity by him/herself with no assistance from a helper. 5-Set-up or Clean-up Assistance-helper sets up or cleans up; patient completes activity. [place] assists only prior to or following the activity. 4-Supervision or Touching Assistance-helper provides verbal cues and/or touching/steadying and/or contact guard assistance as patient completes activity. Assistance may be provided throughout the activity or intermittently. 3-Partial/Moderate Assistance-helper does LESS THAN HALF the effort. [place] lifts, holds or supports trunk or limbs, but provides less than half the effort. 2-Substantial/Maximal Assistance-helper does MORE THAN HALF the effort. [place] lifts or holds trunk or limbs and provides more than half the effort. 5-Yltlhtybh-anrxtr does ALL the effort. Patient does none of the effort to complete the activity. Or, the assistance of 2 or more helpers is required for the patient to complete the activity. If activity was not attempted, code reason: 7-Patient Refused. 9-Not Applicable-not attempted and the patient did not perform the activity before the current illness, exacerbation or injury. 10-Not Attempted due to Environmental Limitations-(lack of equipment, weather restraints, etc.). 88-Not Attempted due to Medical Conditions or Safety Concerns. ADL PLOF Comments Pt reported that he has been able to manage his basic self care needs. He helps around the house and is able to do dishes, laundry, simple cooking. 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 He is able to drive currently. Self Care: Independent Functional Cognition: Independent OT Current Status Subjective Pt seen in room, up in bed, agreeable to OT. No pain mentioned. Appearance Alert, cooperative Mental Status/Objective Attachments: Parada Catheter, Saline Lock, Telemetry Current Glasses/Contacts: No Hearing Aids: No Dentures/Partials: No (no teeth) Hand Dominance: Right Upper Extremity ROM Grossly WFL bilat. No lag on R side. Some arthritic changes in hands Upper Extremity Strength Grossly 5/5 bilaterally ADL-Treatment ADL-Current Pt declined ADLs. Per PT eval, he was able to walk 300" CGA, FWW with narrow base of support. He was able to transition to sitting EOB without help for testing and also able to lie back down without assistance. Education OT Patient Education: Purpose of tx/functional activities, Rehab process Teaching Recipient: Patient Teaching Methods: Discussion Response to Teaching: Verbalize Understanding OT Long-Term Goals Long-Term Goals Time Frame: Feb 01, 2021 Eating (QC): 6 Oral Hygiene (QC): 6 Toileting Hygiene (QC): 6 Shower/Bathe Self (QC): 5 Upper Body Dressing (QC): 5 Lower Body Dressing (QC): 5 On/Off Footwear (QC): 5 Additional Goals: 1-Demonstrate ADL Tasks, 2-Verbalize Understanding, 3-ImproveStrength/[place] 1=Demonstrate adherence to instructed precautions during ADL tasks. 2=Patient will verbalize/demonstrate understanding of assistive devices/modifications for ADL. 3=Patient will improve strength/tolerance for activity to enable patient to perform ADL's. OT Education/Plan Problem List/Assessment Assessment: Decreased Activ Tolerance, Decreased UE Strength (generalized weakness), Dependent Transfers, Impaired Funct Balance, Impaired Self-Care Skills Pt would benefit from skilled OT to increase his independence in basic self care to allow him to safely return home. Discharge Recommendations Plan/Recommendations: Continue POC Treatment Plan/Plan of Care Treatment,Training & Education: Yes Patient would benefit from OT for education, treatment and training to promote independence in ADL's, mobility, safety and/or upper extremity function for ADL's. Plan of Care: ADL Retraining, Functional Mobility, UE Funct Exercise/Act Treatment Duration: Feb 01, 2021 Frequency: 5 times per week Estimated Hrs Per Day: .25 hour per day Agreement: Yes Rehab Potential: Fair Time/GCodes Start Time: 14:30 Stop Time: 14:41 Total Time Billed (hr/min): 11 Billed Treatment Time visit, 11 minutes evaluation moderate intensity MARCELA GONZALEZ OT Jan 25, 2021 14:56
[2021-01-25] MEDS ORDERED: CALCIUM CARBONATE 500 MG (TUMS) TAB.CHEW PO PRN (18:00)
[2021-01-25] MEDS ORDERED: diphenhydrAMINE 25 MG TAB (BENADRYL) PO PRN (18:00)
[2021-01-25] MEDS ORDERED: ONDANSETRON 4 MG/2 ML (SDV) Z0FRAN IVP PRN (18:00)
[2021-01-25] MEDS ORDERED: DOCUSATE SODIUM 100 MG (COLACE) CAP PO PRN (18:00)
[2021-01-25] MEDS ORDERED: MELATONIN 3 MG TABLET PO PRN (18:00)
[2021-01-25] MEDS ORDERED: LOPERAMIDE 2 MG (IMODIUM) TABLET PO PRN (18:00)
[2021-01-25] MEDS ORDERED: ALPRAZolam 0.25 MG (XANAX) TAB PO PRN (18:00)
[2021-01-25] MEDS ORDERED: ACETAMINOPHEN 325 MG TABLET PO PRN (18:15)
[2021-01-25] MEDS: ENOXAPARIN 40 MG/0.4 ML (LOVENOX) SYR SC SCH (18:51)
[2021-01-25] MEDS: SENNA W/DOCUSATE (SENOKOT S) TABLET PO SCH (19:50)
[2021-01-25] MEDS: HYDROcodone/APAP 5 MG/325 MG (LORTAB) TAB PO PRN (22:57)
[2021-01-26] MEDS: GENTAMICIN 0.3% OPHTH SOLN 5 ML OP SCH ×11 (01:18→21:23)
[2021-01-26] MEDS: HYDROcodone/APAP 5 MG/325 MG (LORTAB) TAB PO PRN ×3 (02:46→19:54)
[2021-01-26 03:58] LABS: BASOPHILS % (AUTO) 0 % (0-10); EOSINOPHILS # (AUTO) 0.1 10^3/uL (0.0-0.3); EOSINOPHILS % (AUTO) 1 % (0-10); HEMATOCRIT 36 % (40-54); HEMOGLOBIN 11.6 g/dL (13.3-17.7); LYMPHOCYTES # (AUTO) 2.4 10^3/uL (1.0-4.0); LYMPHOCYTES % (AUTO) 34 % (12-44); MEAN CORPUSCULAR HEMOGLOBIN 30 pg (25-34); MEAN CORPUSCULAR HGB CONC 32 g/dL (32-36); MEAN CORPUSCULAR VOLUME 95 fL (80-99); MEAN PLATELET VOLUME 9.1 fL (9.0-12.2); MONOCYTES # (AUTO) 0.7 10^3/uL (0.0-1.0); MONOCYTES % (AUTO) 10 % (0-12); NEUTROPHILS # (AUTO) 3.9 10^3/uL (1.8-7.8); NEUTROPHILS % (AUTO) 55 % (42-75); PLATELET COUNT 166 10^3/uL (130-400); WHITE BLOOD COUNT 7.1 10^3/uL (4.3-11.0)
[2021-01-26 04:09] LABS: ALBUMIN 3.2 GM/DL (3.2-4.5); CHLORIDE 108 MMOL/L (98-107); POTASSIUM 3.5 MMOL/L (3.6-5.0); SODIUM 139 MMOL/L (135-145)
[2021-01-26 04:11] LABS: CALCIUM 8.8 MG/DL (8.5-10.1)
[2021-01-26 04:12] LABS: GLUCOSE 87 MG/DL (70-105)
[2021-01-26 04:13] LABS: CARBON DIOXIDE 21 MMOL/L (21-32)
[2021-01-26 04:14] LABS: BILIRUBIN,TOTAL 0.6 MG/DL (0.1-1.0)
[2021-01-26 04:15] LABS: ALKALINE PHOSPHATASE 68 U/L (40-136); CREATININE SERUM 0.74 MG/DL (0.60-1.30); GFR ESTIMATED > 60
[2021-01-26 04:16] LABS: BUN/CREATININE RATIO 18
[2021-01-26 04:18] LABS: ALANINE AMINOTRANSFERASE 11 U/L (0-55)
--- NOTE | 2021-01-26 06:27 | Progress Note - Hospitalist ---
Subjective HPI/CC On Admission Date Seen by Provider: Jan 26, 2021 Time Seen by Provider: 10:00 Chief complaint: Right-sided weakness History of present illness: This is a 65-year-old white male [facility] who presented with to the ER with right-sided weakness and acute kidney injury. He underwent the stroke protocol revealing no acute CVA but needed risk ratification with echocardiogram and MRI with ultrasound of carotids to fully evaluate. Sisters are at the bedside currently. Patient is very hard of hearing making it difficult to communicate. IV fluids were given for elevated creatinine and dehydration. He has worked with PT and OT and actually done very well. We will try to move to fourth floor. Spoke with cardiology. Subjective/Events-last exam Patient doing well Weakness still very vague MRI no CVA reported and I updated him on that Family reports he takes all sorts of pills of any type that are not rxed to him Checked meds and labs Review of Systems General: Fatigue, Malaise Neurological: Weakness, Incoordination Objective Exam Vital Signs Vital Signs Date Time Temp Pulse Resp B/P (MAP) Pulse Ox O2 Delivery O2 Flow Rate FiO2 01/27/21 04:03 36.7 42 18 159/65 (96) 97 Room Air 01/25/21 03:45 2.00 Capillary Refill : Less Than 3 Seconds General Appearance: No Apparent Distress, WD/WN, Chronically ill Respiratory: Lungs Clear Cardiovascular: Regular Rate, Rhythm Neurologic/Psychiatric: Alert, Oriented x3, Depressed Affect Results/Procedures Lab Patient resulted labs reviewed. Assessment/Plan Assessment and Plan Assess & Plan/Chief Complaint Assessment: Right-sided weakness now improved CAD Hypertension Hyperlipidemia Severe presbycusis Current smoker COPD Plan: Appreciate cardiology consult Echo MRI PT and OT 01/26/21: Monitor closely No CVA on MRI Diagnosis/Problems Diagnosis/Problems (1) Right sided weakness Status: Acute (2) Acute kidney injury Status: Acute (3) Altered mental status Status: Acute Qualifiers: Altered mental status type: unspecified Qualified Codes: R41.82 - Altered mental status, unspecified STALIN KISER DO Jan 26, 2021 06:27
[2021-01-26] MEDS: SENNA W/DOCUSATE (SENOKOT S) TABLET PO SCH ×2 (09:57→21:23)
[2021-01-26] MEDS: ASPIRIN E.C. 325 MG (ECOTRIN) TABLET PO SCH (09:57)
[2021-01-26] MEDS: DOCUSATE SODIUM 100 MG (COLACE) CAP PO SCH ×2 (09:57→21:23)
[2021-01-26] MEDS: NS IV 1000 ML 1,000 ML IV SCH (11:31)
--- NOTE | 2021-01-26 12:35 | Physical Therapy Progress Note ---
Therapy Progress Note Pt. in bed, refuses PT this date saying "I just don't feel like it today. I'm not feeling that good." Therapist respects patient request, we will return 01/28 for PT treatment. [id number] CHRISTAL CARVER PT Jan 26, 2021 12:35
--- NOTE | 2021-01-26 13:13 | Cardiology Progress Note ---
Cardiology Progess Note Progress Date Seen by Provider: Jan 26, 2021 Time Seen by Provider: 13:08 We are seeing him due to possible transient ischemic attack. Overnight he had been having some bradycardia down into the 30-40 bpm range both while he was asleep and while awake. He was asymptomatic with this. He denies chest pain, dyspnea, palpitations, syncope, or lower extremity edema. He wants to go home. Focused Exam Respiratory: Lungs Clear Cardiovascular: Regular Rate, Rhythm, No Edema, No Gallop, No JVD, No Murmur Skin: normal color, warm/dry A/P-Cardiology Assessment/Plan Plan See below. Diagnosis/Problems Diagnosis/Problems (1) Transient ischemic attack Assessment & Plan: No recurrent neurologic symptoms. His brain MRI did not show any evidence of a stroke. In light of the surrounding circumstances, I suspect he may have had heat stroke. Nonetheless, since we cannot be completely sure of the etiology of his altered mental status at the time of admission, I will have my office set him up for a 30-day outpatient event recorder. (2) Sinus bradycardia Status: Acute Assessment & Plan: He has had asymptomatic sinus bradycardia. He is not on any AV yaya blocking agents. Despite his disheveled appearance, I would question whether or not he might actually be in very good physical shape given that he walks 8 hours a day many days of the week. There is no indication for permanent pacing at this time. I will add a TSH level to his labs from this morning just to be sure he does not have hypothyroidism. (3) Essential hypertension Status: Chronic Assessment & Plan: Blood pressures are intermittently elevated. He states he had been on blood pressure medication this past but stopped this prior to admission because he did not have refills. I am concerned about an GURJIT inhibitor or ARB given his acute kidney injury at the time of admission. Beta- blockers could worsen the bradycardia. I will start him on low-dose amlodipine. (4) Mixed hyperlipidemia Status: Chronic Assessment & Plan: He has been started on high-dose statin medication in light of the possible transient ischemic attack. (5) Cigarette smoker Assessment & Plan: He was again encouraged to quit smoking (6) Acute kidney injury Status: Acute Assessment & Plan: This improved with IV fluids. The IV fluids can probably be stopped at this point in time. I will leave this up to the discretion of the hospital physician LUZ ELENA ARVIZU JR, MD Jan 26, 2021 13:13
[2021-01-26] MEDS ORDERED: amLODIPine 2.5MG (NORVASC) TAB PO ONE (13:15)
[2021-01-26 16:00] VITALS: BP 116/66
[2021-01-26] MEDS: ENOXAPARIN 40 MG/0.4 ML (LOVENOX) SYR SC SCH (17:45)
[2021-01-26 19:47] VITALS: BP 120/61
[2021-01-27] MEDS: HYDROcodone/APAP 5 MG/325 MG (LORTAB) TAB PO PRN ×4 (00:06→12:09)
[2021-01-27] MEDS: GENTAMICIN 0.3% OPHTH SOLN 5 ML OP SCH ×7 (00:07→11:46)
[2021-01-27 00:09] VITALS: BP 148/73
[2021-01-27] MEDS: NS IV 1000 ML 1,000 ML IV SCH (01:40)
[2021-01-27 04:03] VITALS: BP 159/65
[2021-01-27 05:55] LABS: BASOPHILS # (AUTO) 0.1 10^3/uL (0.0-0.1); BASOPHILS % (AUTO) 1 % (0-10); EOSINOPHILS # (AUTO) 0.1 10^3/uL (0.0-0.3); EOSINOPHILS % (AUTO) 2 % (0-10); HEMATOCRIT 36 % (40-54); HEMOGLOBIN 11.6 g/dL (13.3-17.7); LYMPHOCYTES % (AUTO) 38 % (12-44); MEAN CORPUSCULAR HEMOGLOBIN 31 pg (25-34); MEAN CORPUSCULAR HGB CONC 32 g/dL (32-36); MEAN CORPUSCULAR VOLUME 94 fL (80-99); MEAN PLATELET VOLUME 9.2 fL (9.0-12.2); MONOCYTES # (AUTO) 0.6 10^3/uL (0.0-1.0); MONOCYTES % (AUTO) 11 % (0-12); NEUTROPHILS # (AUTO) 2.5 10^3/uL (1.8-7.8); NEUTROPHILS % (AUTO) 48 % (42-75); PLATELET COUNT 164 10^3/uL (130-400); WHITE BLOOD COUNT 5.2 10^3/uL (4.3-11.0)
[2021-01-27 06:15] LABS: ALBUMIN 3.2 GM/DL (3.2-4.5)
[2021-01-27 06:16] LABS: CHLORIDE 109 MMOL/L (98-107); POTASSIUM 3.6 MMOL/L (3.6-5.0); SODIUM 139 MMOL/L (135-145)
[2021-01-27 06:17] LABS: CALCIUM 8.5 MG/DL (8.5-10.1)
[2021-01-27 06:18] LABS: GLUCOSE 90 MG/DL (70-105); TOTAL PROTEIN 5.9 GM/DL (6.4-8.2)
[2021-01-27 06:19] LABS: CARBON DIOXIDE 22 MMOL/L (21-32)
[2021-01-27 06:20] LABS: BILIRUBIN,TOTAL 0.4 MG/DL (0.1-1.0)
[2021-01-27 06:21] LABS: ALKALINE PHOSPHATASE 63 U/L (40-136)
[2021-01-27 06:22] LABS: CREATININE SERUM 0.72 MG/DL (0.60-1.30); GFR ESTIMATED > 60
[2021-01-27 06:23] LABS: BUN/CREATININE RATIO 21
[2021-01-27 06:25] LABS: ALANINE AMINOTRANSFERASE 10 U/L (0-55)
[2021-01-27] MEDS: ASPIRIN E.C. 325 MG (ECOTRIN) TABLET PO SCH (08:04)
[2021-01-27] MEDS: SENNA W/DOCUSATE (SENOKOT S) TABLET PO SCH (08:04)
[2021-01-27] MEDS: DOCUSATE SODIUM 100 MG (COLACE) CAP PO SCH (08:04)
[2021-01-27 08:20] VITALS: BP 159/76
[2021-01-27] MEDS ORDERED: amLODIPine 2.5MG (NORVASC) TAB PO SCH (09:00)
--- NOTE | 2021-01-27 09:34 | Progress Note - Hospitalist ---
Subjective HPI/CC On Admission Date Seen by Provider: Jan 27, 2021 Chief complaint: Right-sided weakness History of present illness: This is a 65-year-old white male patient of [facility] who presented with to the ER with right-sided weakness and acute kidney injury. He underwent the stroke protocol revealing no acute CVA but needed risk ratification with echocardiogram and MRI with ultrasound of carotids to fully evaluate. Sisters are at the bedside currently. Patient is very hard of hearing making it difficult to communicate. IV fluids were given for elevated creatinine and dehydration. He has worked with PT and OT and actually done very well. We will try to move to fourth floor. Spoke with cardiology. Objective Exam Vital Signs Vital Signs Date Time Temp Pulse Resp B/P (MAP) Pulse Ox O2 Delivery O2 Flow Rate FiO2 01/27/21 08:20 35.9 48 18 159/76 (103) 97 Room Air 01/25/21 03:45 2.00 Capillary Refill : Less Than 3 Seconds Results/Procedures Lab Laboratory Tests 01/27/21 05:30 Patient resulted labs reviewed. Assessment/Plan Assessment and Plan Assess & Plan/Chief Complaint Assessment: Right-sided weakness now improved CAD Hypertension Hyperlipidemia Severe presbycusis Current smoker COPD Plan: Appreciate cardiology consult Echo MRI PT and OT 01/26/21: Monitor closely No CVA on MRI Diagnosis/Problems Diagnosis/Problems (1) Right sided weakness Status: Acute (2) Acute kidney injury Status: Acute (3) Altered mental status Status: Acute Qualifiers: Altered mental status type: unspecified Qualified Codes: R41.82 - Altered mental status, unspecified STALIN KISER DO Jan 27, 2021 09:34
[2021-01-27] MEDS ORDERED: ASPI325T32 PO (10:46)
[2021-01-27] MEDS ORDERED: ATOR80TA76 PO (10:46)
[2021-01-27] MEDS ORDERED: AMLO2.5T4 PO (10:46)
--- NOTE | 2021-01-27 10:47 | Discharge Summary ---
Discharge Summary Hospital Course Was the Problem List Reviewed?: Yes Problems/Dx: (1) Transient ischemic attack (2) Sinus bradycardia Status: Acute (3) Essential hypertension Status: Chronic (4) Mixed hyperlipidemia Status: Chronic (5) Cigarette smoker (6) Acute kidney injury Status: Acute Hospital Course Date of Admission: Jan 25, 2021 at 02:13 Admission Diagnosis : Family Physician/Provider: [place] Date of Discharge: 01/27/21 Discharge Diagnosis: Heatstroke, right-sided weakness resolved with MRI negative for CVA, illicit drug use prescription type of meds, severe presbycusis, smoker Hospital Course: Patient had a lengthy hospital course he was admitted for right-sided weakness and underwent stroke work-up and MRI ultimately showed no evidence of an acute stroke. Right-sided weakness resolved. PT and OT were able to work with him. IV fluids and supportive care initiated with good results and patient was discharged in improved condition. Labs and Pending Lab Test: Laboratory Tests 01/27/21 05:30: White Blood Count 5.2, Red Blood Count 3.80L, Hemoglobin 11.6L, Hematocrit 36L, Mean Corpuscular Volume 94, Mean Corpuscular Hemoglobin 31, Mean Corpuscular Hemoglobin Concent 32, Red Cell Distribution Width 15.2H, Platelet Count 164, Mean Platelet Volume 9.2, Immature Granulocyte % (Auto) 0, Neutrophils (%) (Auto) 48, Lymphocytes (%) (Auto) 38, Monocytes (%) (Auto) 11, Eosinophils (%) (Auto) 2, Basophils (%) (Auto) 1, Neutrophils # (Auto) 2.5, Lymphocytes # (Auto) 2.0, Monocytes # (Auto) 0.6, Eosinophils # (Auto) 0.1, Basophils # (Auto) 0.1, Immature Granulocyte # (Auto) 0.0, Sodium Level 139, Potassium Level 3.6, Chloride Level 109H, Carbon Dioxide Level 22, Anion Gap 8, Blood Urea Nitrogen 15, Creatinine 0.72, Estimat Glomerular Filtration Rate > 60, BUN/Creatinine Ratio 21, Glucose Level 90, Calcium Level 8.5, Corrected Calcium 9.1, Total Bilirubin 0.4, Aspartate Amino Transf (AST/SGOT) 14, Alanine Aminotransferase (ALT/SGPT) 10, Alkaline Phosphatase 63, Total Protein 5.9L, Albumin 3.2 Home Meds Active Aspirin EC (Aspirin) 325 Mg Tablet. 325 Mg PO DAILY Amlodipine Besylate 2.5 Mg Tablet 2.5 Mg PO DAILY Atorvastatin Calcium 80 Mg Tablet 80 Mg PO DAILY Assessment/Pt Instructions [facility] clinic in 1 week Discharge Planning: <30 minutes discharge planning Discharge Instructions Discharge Diet: No Restrictions Activity as Tolerated: Yes Discharge Physical Examination Vital Signs Vital Signs Date Time Temp Pulse Resp B/P (MAP) Pulse Ox O2 Delivery O2 Flow Rate FiO2 01/27/21 08:20 35.9 48 18 159/76 (103) 97 Room Air 01/25/21 03:45 2.00 General Appearance: No Apparent Distress, WD/WN, Chronically ill Respiratory: Lungs Clear Cardiovascular: Regular Rate, Rhythm Neurologic/Psychiatric: Alert, Oriented x3, No Motor/Sensory Deficits, Normal Mood/Affect Allergies: Coded Allergies: ibuprofen (Verified Allergy, Unknown, 04/05/15) HYPERTENSION tramadol (Verified Adverse Reaction, Unknown, VOMIT, 10/03/18) Discharge Summary Date of Admission Jan 25, 2021 at 02:13 Date of Discharge Discharge Date: Jan 27, 2021 Admission Diagnosis Assessment: Right-sided weakness now improved CAD Hypertension Hyperlipidemia Severe presbycusis Current smoker COPD Plan: Appreciate cardiology consult Echo MRI PT and OT Discharge Diagnosis Assessment: Right-sided weakness now improved CAD Hypertension Hyperlipidemia Severe presbycusis Current smoker COPD Plan: Appreciate cardiology consult Echo MRI PT and OT 01/26/21: Monitor closely No CVA on MRI (1) Transient ischemic attack Assessment & Plan: No recurrent neurologic symptoms. His brain MRI did not show any evidence of a stroke. In light of the surrounding circumstances, I suspect he may have had heat stroke. Nonetheless, since we cannot be completely sure of the etiology of his altered mental status at the time of admission, I will have my office set him up for a 30-day outpatient event recorder. (2) Sinus bradycardia Status: Acute Assessment & Plan: He has had asymptomatic sinus bradycardia. He is not on any AV yaya blocking agents. Despite his disheveled appearance, I would question whether or not he might actually be in very good physical shape given that he walks 8 hours a day many days of the week. There is no indication for permanent pacing at this time. I will add a TSH level to his labs from this morning just to be sure he does not have hypothyroidism. (3) Essential hypertension Status: Chronic Assessment & Plan: Blood pressures are intermittently elevated. He states he had been on blood pressure medication this past but stopped this prior to admission because he did not have refills. I am concerned about an GURJIT inhibitor or ARB given his acute kidney injury at the time of admission. Beta- blockers could worsen the bradycardia. I will start him on low-dose amlodipine. (4) Mixed hyperlipidemia Status: Chronic Assessment & Plan: He has been started on high-dose statin medication in light of the possible transient ischemic attack. (5) Cigarette smoker Assessment & Plan: He was again encouraged to quit smoking (6) Acute kidney injury Status: Acute Assessment & Plan: This improved with IV fluids. The IV fluids can probably be stopped at this point in time. I will leave this up to the discretion of the hospital physician STALIN KISER DO Jan 27, 2021 10:47
--- NOTE | 2021-01-27 12:05 | Cardiology Progress Note ---
Subjective Date Seen by Provider: Jan 27, 2021 Time Seen by Provider: 12:00 Subjective/Events-last exam We are seeing him due to a possible transient ischemic attack. He has been up ambulating in his room. He denies chest discomfort, dyspnea, palpitations, lightheadedness, syncope, or ankle edema. He wants to go home. Objective-Cardiology Exam Last Set of Vital Signs Vital Signs 01/25/21 01/27/21 03:45 08:20 Temp 35.9 Pulse 48 Resp 18 B/P (MAP) 159/76 (103) Pulse Ox 97 O2 Delivery Room Air O2 Flow Rate 2.00 Capillary Refill : Less Than 3 Seconds I&O Intake and Output 01/27/21 00:00 Intake Total 1590 ml Output Total 1100 ml Balance 490 ml Intake Oral 590 ml IV Total 1000 ml Output Urine Total 1100 ml # Voids 1 General: Alert, Oriented X3, Cooperative, No Acute Distress, Other (He is very hard of hearing.) HEENT: Atraumatic, EOMI Neck: Supple, No JVD Lungs: Clear to Auscultation, Normal Air Movement Heart: Regular Rate, Normal S1, Normal S2, No Murmurs Abdomen: Normal Bowel Sounds, Soft, No Tenderness Extremities: No Clubbing, No Cyanosis, No Edema Skin: No Rashes Neuro: Normal Gait, Normal Speech, Cranial Nerves 3-12 NL Psych/Mental Status: Mental Status NL, Mood NL Results Lab Laboratory Tests 01/27/21 05:30 A/P-Cardiology Admission Diagnosis (1) Transient ischemic attack Assessment & Plan: No recurrent neurologic symptoms. Exact etiology of his presenting symptoms is unclear. His MRI of the brain did not show any evidence of an acute stroke. This may still have been a transient ischemic attack. My office will arrange for a 30-day event recorder as an outpatient and then I will plan to see him in about 6 weeks in the office. From a cardiac standpoint, he can be discharged to home today. (2) Sinus bradycardia Status: Acute Assessment & Plan: He continues to have asymptomatic sinus bradycardia. His TSH level was normal. He has normal ejection fraction. His heart rate does go up with activity. We will monitor this with the outpatient event recorder. At this time, there are no indications for permanent pacing. (3) Essential hypertension Status: Chronic Assessment & Plan: I started him on low-dose amlodipine on 01/26. He will need to be discharged with this. I can follow his blood pressures after discharge. (4) Mixed hyperlipidemia Status: Chronic Assessment & Plan: In light of the possible transient ischemic attack, he has been started on high-dose statin medication. He should be discharged with this medication. I will arrange for a follow-up lipid panel in approximately 6 weeks. (5) Cigarette smoker Assessment & Plan: He tells me he plans to quit smoking after discharge. Assessment/Plan See below. LUZ ELENA ARVIZU JR, MD Jan 27, 2021 12:05
[2021-01-27 12:18] VITALS: BP 146/82
== END 2021-01-27 14:00 | disposition home or self-care (01) | DRG 923 ==
LOC: EDUNIT# 21:41 → ER 21:42 → CSD 01-25 02:13 → 4TH 01-26 15:25
PROVIDERS: ADMIT Family Medicine; ATTEND Family Medicine
DX: T67.01XA Heatstroke and sunstroke, initial encounter (principal); N17.9 Acute kidney failure, unspecified; R41.82 Altered mental status, unspecified; R29.898 Other symptoms and signs involving the musculoskeletal system; R29.707 NIHSS score 7; E86.0 Dehydration; J44.9 Chronic obstructive pulmonary disease, unspecified; F11.90 Opioid use, unspecified, uncomplicated; Z20.822 Contact with and (suspected) exposure to COVID-19; I25.10 Atherosclerotic heart disease of native coronary artery without angina pectoris; E78.00 Pure hypercholesterolemia, unspecified; E78.2 Mixed hyperlipidemia; I10 Essential (primary) hypertension; F17.210 Nicotine dependence, cigarettes, uncomplicated; R00.1 Bradycardia, unspecified; K21.9 Gastro-esophageal reflux disease without esophagitis; M19.91 Primary osteoarthritis, unspecified site; F41.9 Anxiety disorder, unspecified; F32.9 Major depressive disorder, single episode, unspecified; H00.015 Hordeolum externum left lower eyelid; Z88.6 Allergy status to analgesic agent; H91.10 Presbycusis, unspecified ear; Z82.5 Family history of asthma and other chronic lower respiratory diseases; Z82.3 Family history of stroke; X30.XXXA Exposure to excessive natural heat, initial encounter
CPT/HCPCS: 36415; 51702; 70450; 70551; 71045; 71250; 72125; 72141; 74176; 80048; 80053; 80061; 80306; 80320; 80329; 81000; 82550; 82947; 84443; 84484; 85025; 85379; 85610; 85730; 86141; 87636; 93005; 93041; 93306; 93880

== ENCOUNTER 2021-02-20 14:17 | Emergency (ER) | payer MEDICARE ==
[~2021-02-20] VITALS: Ht 167 cm; Wt 58.9 kg
[~2021-02-20 14:17] MED LIST changes: +AMLO2.5T4 PO; +ASPI325T32 PO; +ATOR80TA76 PO
[2021-02-20 14:51] LABS: BASOPHILS % (AUTO) 0 % (0-10); EOSINOPHILS # (AUTO) 0.1 10^3/uL (0.0-0.3); EOSINOPHILS % (AUTO) 1 % (0-10); HEMATOCRIT 43 % (40-54); HEMOGLOBIN 13.9 g/dL (13.3-17.7); LYMPHOCYTES # (AUTO) 1.9 10^3/uL (1.0-4.0); LYMPHOCYTES % (AUTO) 19 % (12-44); MEAN CORPUSCULAR HEMOGLOBIN 31 pg (25-34); MEAN CORPUSCULAR HGB CONC 33 g/dL (32-36); MEAN CORPUSCULAR VOLUME 95 fL (80-99); MEAN PLATELET VOLUME 9.2 fL (9.0-12.2); MONOCYTES % (AUTO) 10 % (0-12); NEUTROPHILS # (AUTO) 7.1 10^3/uL (1.8-7.8); NEUTROPHILS % (AUTO) 71 % (42-75); PLATELET COUNT 230 10^3/uL (130-400); WHITE BLOOD COUNT 10.1 10^3/uL (4.3-11.0)
[2021-02-20 14:58] LABS: CHLORIDE 107 MMOL/L (98-107); POTASSIUM 3.5 MMOL/L (3.6-5.0); SODIUM 144 MMOL/L (135-145)
[2021-02-20 14:59] LABS: CALCIUM 9.3 MG/DL (8.5-10.1); GLUCOSE 107 MG/DL (70-105)
[2021-02-20 15:01] LABS: CARBON DIOXIDE 28 MMOL/L (21-32)
[2021-02-20 15:03] LABS: CREATININE SERUM 0.77 MG/DL (0.60-1.30); GFR ESTIMATED > 60
[2021-02-20 15:04] LABS: BUN/CREATININE RATIO 23
[2021-02-20 15:06] LABS: CREATINE KINASE 312 U/L (30-200)
[2021-02-20 15:14] LABS: CREATINE KINASE MB 0.5 NG/ML (<6.6)
--- NOTE | 2021-02-20 15:39 | Diagnostic Imaging Report ---
INDICATION: Syncope and chest tightness. Frontal chest obtained 3:11 p.m. and compared to 01/24/2021. Heart is normal in size. Mediastinal silhouette is unremarkable. There are chronic appearing increased residual markings. There is no pneumothorax or pleural fluid or new infiltrate. IMPRESSION: COPD changes and chronic increased interstitial markings in the lung bases. No acute infiltrate. Dictated by: Dictated on workstation # [id number]
--- NOTE | 2021-02-20 16:03 | ED Syncope ---
General Chief Complaint: Dizziness/Syncope Stated Complaint: SYNCOPE,DIZZINESS Nursing Triage Note: PT PRESENTS TO ED WITH COMPLAINTS OF SYNCOPAL EPISODES X 2 WEEKS. PT ALSO REPORTS DIAHRREA X 3-4 DAYS. Source of Information: Patient Exam Limitations: No Limitations History of Present Illness Date Seen by Provider: Feb 20, 2021 Time Seen by Provider: 14:30 Initial Comments Patient is a 66-year-old male who presents to the emergency department today with a chief complaint of multiple syncopal episodes today. Patient states that he has had at least 5 episodes today where he just "drops". He states it is like "a light switch going off". Patient states that he scraped up his arms today when he fell walking his dog. He does not know how long he is unconscious for. He has not injured himself. He mentions that he believes it is with activity and sometimes occasionally with sitting. He states that he talk to his bingo usher about it when he was in the hospital a few weeks ago and was told that it was because his pulse was "too low". Patient denies any antecedent s ymptoms such as lightheadedness dizziness nausea chest pain. He states he seems to be having these more often since he had lower back surgery a couple of months ago. Patient denies any numbness tingling or weakness unilaterally. He has never seen a neurologist. He denies any recent illnesses such as fevers, chills, cough or congestion. He has been having diarrhea for the last couple of days. He states occasionally he is incontinent of urine but he was not today. All other review of systems reviewed and negative except as stated above. Timing/Prior Episodes: Multiple Episodes Today Symptoms Prior to Episode: None Precipitating Factors: Activity Loss of Consciousness: Unsure Current Symptoms: Back to Normal, Weakness Allergies and Home Medications Allergies Coded Allergies: ibuprofen (Verified Allergy, Unknown, 04/05/15) HYPERTENSION tramadol (Verified Adverse Reaction, Unknown, VOMIT, 10/03/18) Home Medications Amlodipine Besylate 2.5 Mg Tablet, 2.5 MG PO DAILY Prescribed by: STALIN KISER on 01/27/21 1046 Aspirin 325 Mg Tablet.dr, 325 MG PO DAILY Prescribed by: STALIN KISER on 01/27/21 1046 Atorvastatin Calcium 80 Mg Tablet, 80 MG PO DAILY Prescribed by: STALIN KISER on 01/27/21 1046 Patient Home Medication List Home Medication List Reviewed: Yes Review of Systems Constitutional: see HPI EENTM: no symptoms reported Respiratory: no symptoms reported Cardiovascular: no symptoms reported Gastrointestinal: no symptoms reported Genitourinary: no symptoms reported Musculoskeletal: no symptoms reported Skin: no symptoms reported Psychiatric/Neurological: Weakness, Other (syncope) All Other Systems Reviewed Negative Unless Noted: Yes Past Yabeurt-Ontmtn-Wxistf Hx Patient Social History Tobacco Use?: Yes Tobacco type used: Cigarettes Smoking Status: Current Everyday Smoker Use of E-Cig and/or Vaping dev: No Substance use?: No Alcohol Use?: No Pt feels they are or have been: No Immunizations Up To Date Tetanus Booster (TDap): Less than 5yrs PED Vaccines UTD: Yes Seasonal Allergies Seasonal Allergies: No Past Medical History Surgeries: Yes Appendectomy, Ear Surgery, Gallbladder, Orthopedic Respiratory: Yes Chronic Bronchitis Currently Using CPAP: No Currently Using BIPAP: No Cardiac: Yes Coronary Artery Disease, High Cholesterol, Hypertension Neurological: No Reproductive Disorders: No Sexually Transmitted Disease: No HIV/AIDS: No Genitourinary: No Gastrointestinal: Yes Gastroesophageal Reflux Musculoskeletal: Yes (chronic left shoulder pain) Degenerate Disk Disease, Arthritis, Chronic Back Pain Endocrine: No HEENT: Yes (POOR DENTITION; BMT'S ) Chronic Ear Infection Hearing Impairment: Hard of Hearing Cancer: Yes Skin Did You Recieve Any Treatments: Yes What Type of Treatment Did You: Surgical Intervention Psychosocial: Yes Anxiety, Suicide Attempts, Depression Integumentary: No Blood Disorders: No Adverse Reaction/Blood Tranf: No (N/A) Family Medical History Cancer 03 FATHER (PROSTATE) 03 MOTHER (BREAST CA ) 09 BROTHER (THROAT/PANCREATIC) 09 SISTER (LIVER) DEAFNESS 03 FATHER 09 BROTHER Family history: Breast disease 03 MOTHER (BREAST CA) History of - respiratory disease Prostate cancer 03 FATHER Stroke 03 MOTHER Visual impairment No Pertinent Family Hx Physical Exam Vital Signs Vital Signs - First Documented 02/20/21 14:22 Temp 37.1 Pulse 85 Resp 14 B/P (MAP) 126/84 (98) Pulse Ox 97 O2 Delivery Room Air Capillary Refill : Less Than 3 Seconds Height, Weight, BMI Height: 5'6.00" Weight: 130lbs. 2.0oz. [id number]; 21.00 BMI Method:Stated General Appearance: No Apparent Distress, WD/WN HEENT: PERRL/EOMI, Normal ENT Inspection Neck: Normal Inspection, Non Tender, Supple Cardiovascular: Regular Rate, Rhythm, Normal Peripheral Pulses Respiratory: Lungs Clear, Normal Breath Sounds, No Accessory Muscle Use, No Respiratory Distress Gastrointestinal: Non Tender, Soft Extremities: Normal Capillary Refill, Normal Inspection, Normal Range of Motion Neurologic/Psychiatric: Alert, Oriented x3, No Motor/Sensory Deficits, Normal Mood/Affect Cranial Nerves: Normal Hearing, Normal Speech, PERRL Coordination/Gait: Normal Finger to Nose, Negative Romberg's Sign Motor/Sensory: No Motor Deficit, No Sensory Deficit, No Pronator Drift, Other (Patient is unable to straight leg raise with either leg secondary to chronic longstanding back pain) Skin: Normal Color, Warm/Dry, Other (Some small abrasions noted to the bilateral forearms) Progress/Results/Core Measures Results/Orders Lab Results Laboratory Tests Test 02/20/21 14:24 Range/Units White Blood Count 10.1 4.3-11.0 10^3/uL Red Blood Count 4.51 4.30-5.52 10^6/uL Hemoglobin 13.9 13.3-17.7 g/dL Hematocrit 43 40-54 % Mean Corpuscular Volume 95 80-99 fL Mean Corpuscular Hemoglobin 31 25-34 pg Mean Corpuscular Hemoglobin Concent 33 32-36 g/dL Red Cell Distribution Width 15.0 H 10.0-14.5 % Platelet Count 230 130-400 10^3/uL Mean Platelet Volume 9.2 9.0-12.2 fL Immature Granulocyte % (Auto) 0 % Neutrophils (%) (Auto) 71 42-75 % Lymphocytes (%) (Auto) 19 12-44 % Monocytes (%) (Auto) 10 0-12 % Eosinophils (%) (Auto) 1 0-10 % Basophils (%) (Auto) 0 0-10 % Neutrophils # (Auto) 7.1 1.8-7.8 10^3/uL Lymphocytes # (Auto) 1.9 1.0-4.0 10^3/uL Monocytes # (Auto) 1.0 0.0-1.0 10^3/uL Eosinophils # (Auto) 0.1 0.0-0.3 10^3/uL Basophils # (Auto) 0.0 0.0-0.1 10^3/uL Immature Granulocyte # (Auto) 0.0 0.0-0.1 10^3/uL Sodium Level 144 135-145 MMOL/L Potassium Level 3.5 L 3.6-5.0 MMOL/L Chloride Level 107 98-107 MMOL/L Carbon Dioxide Level 28 21-32 MMOL/L Anion Gap 9 5-14 MMOL/L Blood Urea Nitrogen 18 7-18 MG/DL Creatinine 0.77 0.60-1.30 MG/DL Estimat Glomerular Filtration Rate > 60 BUN/Creatinine Ratio 23 Glucose Level 107 H 70-105 MG/DL Calcium Level 9.3 8.5-10.1 MG/DL Total Creatine Kinase 312 H 30-200 U/L Creatine Kinase MB 0.5 <6.6 NG/ML Troponin I < 0.028 <0.028 NG/ML My Orders Orders - LUCIA COLEMAN MD Ed Iv/Invasive Line Start (02/20/21 14:37) Cbc With Automated Diff (02/20/21 14:37) Basic Metabolic Panel (02/20/21 14:37) Troponin I (02/20/21 14:37) Creatine Kinase Mb (02/20/21 14:37) Creatine Kinase (02/20/21 14:37) Chest 1 View, Ap/Pa Only (02/20/21 14:37) Ekg Tracing (02/20/21 14:37) Ns Iv 1000 Ml (Sodium Chloride 0.9%) (02/20/21 16:30) Vital Signs/I&O 02/20/21 02/20/21 14:22 16:17 Temp 37.1 Pulse 85 70 87 84 Resp 14 B/P (MAP) 126/84 (98) 124/85 (98) 91/71 (78) 134/82 (99) Pulse Ox 97 O2 Delivery Room Air Blood Pressure Mean: 98 Progress Progress Note : Time: 16:09 Progress Note Discussion with [facility] neurology, . He recommended checking orthostatics lying and standing and then 3 minutes after the second blood pressure recheck them. He recommended the patient have telemetry/Holter monitor for 48 hours or perhaps longer an implanted loop recorder to monitor these episo clint. He recommends that the patient drink 32 ounces of water daily. He states that if the patient is indeed orthostatic and abdominal binder can be helpful in preventing orthostasis. He states that outpatient neurology follow-up would be appropriate and [facility] can refer him to neurology. [phone]. patient noted to have orthostasis on standing, became very symptomatic. will gi ve a liter of NS and follow up with [facility], I will recommend an abdominal binder that he can get from the pharmacy and it will probably help him and refer him back to Luz Cisneros for further evaluatin and management of his orthostasis. 1722 I was told by the patient that he is having a pacemaker placed on Thursday. I reassured him that this would likely cure his syncopal episodes. I did again recommend that he get an abdominal binder in the interim. This may help his orthostasis. Patient is to continue his other medications. He verbalizes understanding. He does have a roommate that can help watch him over the course of the next couple of days until he follows up for his pacemaker. All questions have been sought and answered. Patient is stable for discharge. Initial ECG Impression Date: Feb 20, 2021 Initial ECG Impression Time: 14:30 Initial ECG Rate: 80 Initial ECG Rhythm: Normal Sinus Initial ECG Intervals: Normal Initial ECG Impression: Normal Initial ECG Comparisson: Unchanged Diagnostic Imaging Diagonstic Imaging: Xray Plain Films/CT/US/NM/MRI: chest Comments [facility], [place] NAME: LUZ ELENA CALDWELL [facility] REC#: [id number] PT STATUS: REG ER : 1955 PHYSICIAN: LUCIA COLEMAN MD ADMIT DATE: 02/20/21/ER Signed Date of Exam:02/20/21 CHEST 1 VIEW, AP/PA ONLY INDICATION: Syncope and chest tightness. Frontal chest obtained 3:11 p.m. and compared to 01/24/2021. Heart is normal in size. Mediastinal silhouette is unremarkable. There are chronic appearing increased residual markings. There is no pneumothorax or pleural fluid or new infiltrate. IMPRESSION: COPD changes and chronic increased interstitial markings in the lung bases. No acute infiltrate. Dictated by: Dictated on workstation # [id number] Dict: 02/20/21 1535 Trans: 02/20/21 1559 CVB [id number] Interpreted by: ANDRES WATSON MD Electronically signed by: ANDRES WATSON MD 02/20/21 1559 Departure Impression Primary Impression: Syncope Qualified Codes: R55 - Syncope and collapse Additional Impression: Orthostasis Disposition: 01 HOME, SELF-CARE Condition: Stable Departure-Patient Inst. Decision time for Depature: 17:23 Referrals: [facility] [place] (PCP/Family) Primary Care Physician LUZ ELENA CISNEROS JR, MD Patient Instructions: Orthostatic Hypotension, Syncope (Fainting) (DC) Add. Discharge Instructions: Please follow-up with your pacemaker on Thursday with Dr. Cisneros as scheduled. Get an abdominal binder from [facility] or [facility] pharmacy where this to help prevent your blood pressure from dropping and having passing out spells. Return to the emergency room for any new, concerning or emergent complaints. LUCIA COLEMAN MD Feb 20, 2021 16:03
[2021-02-20 16:17] VITALS: BP_SYST 124; BP_SYST 134; BP_SYST 91; BP_DIAS 71; BP_DIAS 82; BP_DIAS 85
[2021-02-20] MEDS ORDERED: NS IV 1000 ML 1,000 ML IV SCH (16:30)
[2021-02-20 18:12] VITALS: BP 148/83
== END 2021-02-20 18:12 | disposition home or self-care (01) ==
LOC: EDUNIT# 14:17 → ER 14:19
DX: S50.812A Abrasion of left forearm, initial encounter (principal); S50.811A Abrasion of right forearm, initial encounter; R55 Syncope and collapse; I10 Essential (primary) hypertension; E78.00 Pure hypercholesterolemia, unspecified; I25.10 Atherosclerotic heart disease of native coronary artery without angina pectoris; F17.210 Nicotine dependence, cigarettes, uncomplicated; Z79.83 Long term (current) use of bisphosphonates; Z79.899 Other long term (current) drug therapy; W18.30XA Fall on same level, unspecified, initial encounter; Y93.K1 Activity, walking an animal
CPT/HCPCS: 36415; 71045; 80048; 82550; 82553; 84484; 85025; 93005

== ENCOUNTER 2021-02-25 12:30 | Outpatient (RCR) | payer MEDICARE ==
[2021-03-03] MEDS ORDERED: CEFD300C3 PO (19:26)
[2021-03-13] MEDS ORDERED: OFLO5DRO33 LEFT EAR (14:11)
[2021-03-13] MEDS ORDERED: PRD20T PO (14:11)
[2021-03-13] MEDS ORDERED: AMOX-358 PO (14:11)
--- NOTE | 2021-03-28 19:22 | 30 Day Event Recorder ---
30-DAY EVENT RECORDER 30-DAY EVENT RECORDER DATE OF PROCEDURE: 02/25/2021-03/26/2021. INDICATION: Transient ischemic attack. PROCEDURE: A 30-day mobile cardiac outpatient telemetry was obtained for a total of 1 day and 14 hours. 6 rhythm strips were presented for review. The study quality is limited due to the patient only wearing the device for just over one day. RESULTS: 1. Baseline sinus rhythm with an average heart rate of 78 bpm, ranging from 50- 120 bpm with rare, isolated premature supraventricular and premature ventricular complexes each representing less than 1% of the total recording time. 2. There were no pauses exceeding 2 seconds in duration. 3. There was no evidence of atrial fibrillation. 4. There were 3 patient events that correlated to sinus rhythm with heart rates ranging from 78-88 bpm with no arrhythmias. IMPRESSION; 1. This is a 30-day mobile cardiac outpatient telemetry report that was obtained for 1 day and 14 hours. The study was compromised by limited data. 2. Baseline sinus rhythm with an average heart rate of 78 bpm, ranging from 50- 120 bpm with rare, isolated premature supraventricular and premature ventricular complexes each representing less than 1% of the total recording time. 3. There was no evidence of atrial fibrillation. 4. There were 3 patient events that correlated to sinus rhythm with heart rates ranging from 78-88 bpm with no arrhythmias. Certain portions of this document may have been dictated utilizing voice recognition technology. Inherent to this technology, typographical and grammatical errors may exist. As much as I am diligent to identify and correct these mistakes, some errors may remain in the document. LUZ ELENA ARVIZU JR, MD Mar 28, 2021 19:22
== END 2021-05-26 | disposition home or self-care (01) ==
LOC: CARD 12:30
PROVIDERS: ATTEND Internal Medicine Cardiovascular Disease
DX: G45.9 Transient cerebral ischemic attack, unspecified (principal)

== ENCOUNTER 2021-03-03 17:09 | Emergency (ER) | payer MEDICARE ==
[~2021-03-03] VITALS: Ht 167.7 cm; Wt 59.0 kg
--- NOTE | 2021-03-03 17:19 | ED Syncope ---
General Chief Complaint: Dizziness/Syncope Stated Complaint: SYNCOPE Source of Information: Patient, EMS, Old Records (TIMI MATTSON DO) History of Present Illness Date Seen by Provider: Mar 03, 2021 Time Seen by Provider: 17:07 Initial Comments PT ARRIVES VIA [facility] FROM A FRIEND'S HOUSE PT HAS HAD 5 SYNCOPAL EPISODES THIS AFTERNOON--WAS WALKING THE FIRST TIME, THEN WAS SITTING IN A CHAIR THE OTHER TIMES NO INJURY FROM THE EPISODES PT STATES HE IS REAL DIZZY AND WORSE WHEN HE GETS UP AND WALKS STATES IT FEELS REAL DIZZY AND FEELS LIKE HIS HEART IS "RACING LIKE A FREIGHT TRAIN" PRIOR TO THE EPISODES NO CHEST PAIN NO CHANGE IN CHRONIC SHORTNESS OF BREATH NO SWEATS MILD NAUSEA NO COUGH NO FEVER OR RECENT ILLNESS NO SWELLING IN LEGS/ FEET OR PAIN IN CALVES NO HEADACHE NO VISION CHANGES NO PARESTHESIAS OR MOTOR DEFICITS NO REPORTED SEIZURE ACTIVITY NO POST ICTAL SYMPTOMS NO INCONTINENCE HAS BEEN EATING AND DRINKING NORMALLY URINATING NORMALLY PT STATES SHE HAS BEEN PASSING OUT EVERY DAY FOR THE LAST MONTH--OCCURS A COUPLE OF TIMES A DAY, BUT TODAY IT HAPPENED 5 TIMES STATES HE IS NOT SURE HOW LONG THE EPISODES LASTED TODAY--MAYBE A FEW SECONDS, BUT STATES "SOMETIMES IT'S 45 MINUTES, AND THE LAST TIME I CAME HERE I WAS OUT FOR 4 HOURS" WAS HOSPITALIZED HERE LAST WEEK FOR SAME AND HOLTER MONITOR/EVENT RECORDER WAS PLACED OUTPATIENT ON 02/25/21--PT TOOK IT OFF HIMSELF 2 DAYS AGO, FOR NO PARTICULAR REASON--STATES HE THOUGHT HE COULD TAKE IT OFF FOR THE WEEKEN D--STATES HE LEFT IT AT HOME. 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 ALCOCER TENTERING MACHINE OFF BEARER: DR. CISNEROS (TIMI MATTSON DO) Initial Comments I agree with the above documented history and physical exam. Echocardiogram by Dr. Cisneros from 1 month ago demonstrating EF of 65 to 70% and grade 1 diastolic dysfunction. Mild dilatation of the aortic root. (ROXANE COHEN) Allergies and Home Medications Allergies Coded Allergies: ibuprofen (Verified Allergy, Unknown, 04/05/15) HYPERTENSION tramadol (Verified Adverse Reaction, Unknown, VOMIT, 10/03/18) Home Medications Amlodipine Besylate 2.5 Mg Tablet, 2.5 MG PO DAILY Prescribed by: STALIN KISER on 01/27/21 1046 Aspirin 325 Mg Tablet.dr, 325 MG PO DAILY Prescribed by: STALIN KISER on 01/27/21 1046 Atorvastatin Calcium 80 Mg Tablet, 80 MG PO DAILY Prescribed by: STALIN KISER on 01/27/21 1046 Cefdinir 300 Mg Capsule, 300 MG PO BID Prescribed by: ROXANE COHEN on 03/03/21 192 Patient Home Medication List Home Medication List Reviewed: Yes (ROXANE COHEN) Review of Systems Constitutional: see HPI; No diaphoresis; dizziness; No fever EENTM: no symptoms reported Respiratory: see HPI; No cough; short of breath Cardiovascular: see HPI; No chest pain, No edema; palpitations, syncope Gastrointestinal: see HPI; No abdominal pain; nausea; No vomiting Genitourinary: no symptoms reported Musculoskeletal: no symptoms reported Skin: no symptoms reported Psychiatric/Neurological: See HPI (SYNCOPE); Denies Headache, Denies Numbness, Denies Paresthesia, Denies Seizure, Denies Tingling, Denies Weakness (TIMI MATTSON DO) Past Dhunlju-Prnpif-Jasgxu Hx Patient Social History Tobacco Use?: Yes (1 PPD) Tobacco type used: Cigarettes Smoking Status: Current Everyday Smoker Substance use?: No (DENIES, BUT FAMILY REPORTS HE IS A "PILL POPPER" ) Alcohol Use?: No (DENIES) (TIMI MATTSON DO) Immunizations Up To Date Tetanus Booster (TDap): Less than 5yrs PED Vaccines UTD: Yes (TIMI MATTSON DO) Seasonal Allergies Seasonal Allergies: No (TIMI MATTSON DO) Past Medical History Surgery/Hospitalization HX: CERVICAL SPINE SURGERY X 3 LUMBAR SPINE SURGERY X 3 CHOLECYSTECTOMY APPENDECTOMY SKIN CANCERS/LESIONS REMOVED FROM LIPS, EARS, HANDS BMT'S EGD'S WITH ESOPHAGEAL DILATIONS Surgeries: Yes Appendectomy, Ear Surgery, Gallbladder, Orthopedic Respiratory: Yes Chronic Bronchitis Currently Using CPAP: No Currently Using BIPAP: No Cardiac: Yes Coronary Artery Disease, High Cholesterol, Hypertension, Syncope Neurological: Yes (TIA 01/2021) TIA Reproductive Disorders: No Sexually Transmitted Disease: No HIV/AIDS: No Genitourinary: No Gastrointestinal: Yes (ESOPAGEAL STRICTURE/DILATIONS) Gastroesophageal Reflux Musculoskeletal: Yes (chronic left shoulder pain;CHRONIC NECK/BACK PAIN ) Degenerate Disk Disease, Arthritis, Chronic Back Pain Endocrine: No HEENT: Yes (POOR DENTITION; BMT'S ) Chronic Ear Infection Hearing Impairment: Hard of Hearing Cancer: Yes Skin Did You Recieve Any Treatments: Yes What Type of Treatment Did You: Surgical Intervention Psychosocial: Yes Anxiety, Suicide Attempts, Depression Integumentary: No Blood Disorders: No Adverse Reaction/Blood Tranf: No (N/A) (TIMI MATTSON DO) Family Medical History Cancer 03 FATHER (PROSTATE) 03 MOTHER (BREAST CA ) 09 BROTHER (THROAT/PANCREATIC) 09 SISTER (LIVER) DEAFNESS 03 FATHER 09 BROTHER Family history: Breast disease 03 MOTHER (BREAST CA) History of - respiratory disease Prostate cancer 03 FATHER Stroke 03 MOTHER Visual impairment No Pertinent Family Hx (TIMI MATTSON DO) Physical Exam Vital Signs Vital Signs - First Documented 03/03/21 03/03/21 17:10 19:32 Temp 36.1 Pulse 88 Resp 17 B/P (MAP) 132/85 (101) Pulse Ox 96 O2 Delivery Room Air (ROXANE COHEN) Vital Signs Capillary Refill : (TIMI MATTSON DO) Height, Weight, BMI Height: 5'6.00" Weight: 130lbs. 2.0oz. 59.485525gx; 21.00 BMI Method:Stated General Appearance: Thin, Other (DIRTY, MALODOROUS, UNKEMPT, DOES NOT APPEAR TO BE ILL OR TO BE IN ANY DISCOMFORT OR DISTRESS. ) HEENT: PERRL/EOMI Neck: Full Range of Motion, Normal Inspection, Non Tender, Supple; No Carotid Bruit, No JVD Cardiovascular: Regular Rate, Rhythm, No Edema, No JVD, No Murmur, Normal Peripheral Pulses Respiratory: Normal Breath Sounds, No Accessory Muscle Use, No Respiratory Distress Gastrointestinal: Normal Bowel Sounds, No Organomegaly, No Pulsatile Mass, Non Tender, Soft Extremities: Normal Capillary Refill, Normal Inspection, Normal Range of Motion, Non Tender, No Calf Tenderness, No Pedal Edema Neurologic/Psychiatric: Alert, Oriented x3, No Motor/Sensory Deficits, Normal Mood/Affect, powerhouse attendant II-XII Norm as Tested; No Abnormal Cerebellar Tests; Other (DIFFICULTY RAISING BOTH LEGS OFF BED, DUE TO BACK PAIN--STATES IS NORMAL FOR HIM) Cranial Nerves: Normal Hearing, Normal Speech, PERRL Motor/Sensory: No Motor Deficit, No Sensory Deficit Skin: Normal Color, Warm/Dry (TIMI MATTSON DO) Progress/Results/Core Measures Results/Orders Lab Results Laboratory Tests Test 03/03/21 17:20 03/03/21 17:44 Range/Units White Blood Count 7.6 4.3-11.0 10^3/uL Red Blood Count 4.49 4.30-5.52 10^6/uL Hemoglobin 13.7 13.3-17.7 g/dL Hematocrit 42 40-54 % Mean Corpuscular Volume 93 80-99 fL Mean Corpuscular Hemoglobin 31 25-34 pg Mean Corpuscular Hemoglobin Concent 33 32-36 g/dL Red Cell Distribution Width 14.4 10.0-14.5 % Platelet Count 256 130-400 10^3/uL Mean Platelet Volume 9.1 9.0-12.2 fL Immature Granulocyte % (Auto) 0 % Neutrophils (%) (Auto) 57 42-75 % Lymphocytes (%) (Auto) 31 12-44 % Monocytes (%) (Auto) 10 0-12 % Eosinophils (%) (Auto) 1 0-10 % Basophils (%) (Auto) 1 0-10 % Neutrophils # (Auto) 4.3 1.8-7.8 10^3/uL Lymphocytes # (Auto) 2.4 1.0-4.0 10^3/uL Monocytes # (Auto) 0.7 0.0-1.0 10^3/uL Eosinophils # (Auto) 0.1 0.0-0.3 10^3/uL Basophils # (Auto) 0.1 0.0-0.1 10^3/uL Immature Granulocyte # (Auto) 0.0 0.0-0.1 10^3/uL Sodium Level 141 135-145 MMOL/L Potassium Level 3.4 L 3.6-5.0 MMOL/L Chloride Level 104 98-107 MMOL/L Carbon Dioxide Level 23 21-32 MMOL/L Anion Gap 14 5-14 MMOL/L Blood Urea Nitrogen 18 7-18 MG/DL Creatinine 0.81 0.60-1.30 MG/DL Estimat Glomerular Filtration Rate > 60 BUN/Creatinine Ratio 22 Glucose Level 109 H 70-105 MG/DL Calcium Level 9.1 8.5-10.1 MG/DL Corrected Calcium 9.2 8.5-10.1 MG/DL Magnesium Level 1.9 1.6-2.4 MG/DL Total Bilirubin 0.5 0.1-1.0 MG/DL Aspartate Amino Transf (AST/SGOT) 19 5-34 U/L Alanine Aminotransferase (ALT/SGPT) 20 0-55 U/L Alkaline Phosphatase 92 40-136 U/L Total Creatine Kinase 84 30-200 U/L Creatine Kinase MB 0.9 <6.6 NG/ML Myoglobin 16.1 10.0-92.0 NG/ML Troponin I < 0.028 <0.028 NG/ML B-Type Natriuretic Peptide < 10.0 <100.0 PG/ML Total Protein 7.1 6.4-8.2 GM/DL Albumin 3.9 3.2-4.5 GM/DL TSH Smyer Testing 0.52 0.35-4.94 UIU/ML Salicylates Level < 5.0 L 5.0-20.0 MG/DL Acetaminophen Level < 10 L 10-30 UG/ML Serum Alcohol 18 H <10 MG/DL Urine Color YELLOW Urine Clarity CLEAR Urine pH 6.0 5-9 Urine Specific [place] >=1.030 1.016-1.022 Urine Protein NEGATIVE NEGATIVE Urine Glucose (UA) NEGATIVE NEGATIVE Urine Ketones NEGATIVE NEGATIVE Urine Nitrite POSITIVE H NEGATIVE Urine Bilirubin NEGATIVE NEGATIVE Urine Urobilinogen 0.2 < = 1.0 MG/DL Urine Leukocyte Esterase 1+ H NEGATIVE Urine RBC (Auto) TRACE-I NEGATIVE Urine RBC NONE /HPF Urine WBC 10-25 H /HPF Urine Squamous Epithelial Cells NONE /HPF Urine Crystals NONE /LPF Urine Bacteria LARGE H /HPF Urine Casts NONE /LPF Urine Mucus NEGATIVE /LPF Urine Culture Indicated YES Urine Opiates Screen NEGATIVE NEGATIVE Urine Oxycodone Screen NEGATIVE NEGATIVE Urine Methadone Screen NEGATIVE NEGATIVE Urine Propoxyphene Screen NEGATIVE NEGATIVE Urine Barbiturates Screen NEGATIVE NEGATIVE Ur Tricyclic Antidepressants Screen NEGATIVE NEGATIVE Urine Phencyclidine Screen NEGATIVE NEGATIVE Urine Amphetamines Screen NEGATIVE NEGATIVE Urine Methamphetamines Screen NEGATIVE NEGATIVE Urine Benzodiazepines Screen NEGATIVE NEGATIVE Urine Cocaine Screen NEGATIVE NEGATIVE Urine Cannabinoids Screen NEGATIVE NEGATIVE (ROXANE COHEN) My Orders Orders - ROXANE COHEN Hydrocodone/Apap 5/325 Tablet (Lortab 5 (03/03/21 19:30) Cefdinir Capsule (Omnicef Capsule) (03/03/21 19:30) (ROXANE COHEN) Medications Given in ED Current Medications Medications Dose Ordered Sig/Isabell Route Start Time Stop Time Status Last Admin Dose Admin Acetaminophen/ Hydrocodone Bitart 1 ea ONCE ONCE PO 03/03/21 19:30 03/03/21 19:31 DC 03/03/21 19:26 1 EA Cefdinir 300 mg ONCE ONCE PO 03/03/21 19:30 03/03/21 19:31 DC 03/03/21 19:25 300 MG (ROXANE COHEN) Vital Signs/I&O 03/03/21 03/03/21 03/03/21 17:10 17:38 19:32 Temp 36.1 Pulse 88 86 71 94 98 Resp 17 17 B/P (MAP) 132/85 (101) 117/73 (88) 117/68 102/72 (82) 103/72 (82) Pulse Ox 96 O2 Delivery Room Air Room Air 03/03/21 23:59 Intake Total 1000 ml Balance 1000 ml (ROXANE COHEN) Progress Progress Note : Progress Note ORTHOSTATICS MILDLY ABNORMAL--IV FLUIDS ORDERED 1800--CARE TURNED OVER TO DR. COHEN AT SHIFT CHANGE, LAB PENDING (TIMI MATTSON DO) Progress Note #1: Progress Note Assumed care of the patient at shift change. Labs are pending. Patient has yet to produce a urine. LR is going. Borderline orthostatics noted. No stress test on file. Patient is on the monitor. After he recovers her labs we will discussed the case with cardiology, Dr. Cisneros. Progress Note #2: Time: 19:18 Progress Note Patient has concerns about his back pain and says he has DrMally BURCH is a surgeon and Luz Elena Jang is a primary care provider. He says he is out of his hydrocodone and would like to. We will give him a single dose to address his pain presently but have directed him back to his doctors to address chronic pain issues. We have suggested to him that his back pain may be exacerbated by his bladder infection and will be giving him some antibiotics. The patient has aseptic vital signs. We discussed the case with Dr. Cisneros his certified hyperbaric technician he says the patient needs to get his monitor back on and wear it for the full 30 days. He already has a scheduled appointment and the patient is aware of this. We are going to allow him to go home and the patient is okay with this plan. (ROXANE COHEN) Initial ECG Impression Date: Mar 03, 2021 Initial ECG Impression Time: 17:12 Initial ECG Rate: 86 Initial ECG Rhythm: Normal Sinus Initial ECG Impression: Normal (TIMI MATTSON DO) Comment Normal sinus rhythm without clinically relevant ST changes. (ROXANE COHEN) Departure Impression Primary Impression: Syncope Qualified Codes: R55 - Syncope and collapse Additional Impression: UTI (urinary tract infection) Qualified Codes: N30.00 - Acute cystitis without hematuria Disposition: 01 HOME, SELF-CARE Condition: Stable Departure-Patient Inst. Decision time for Depature: 19:23 (ROXANE COHEN) Referrals: [facility] [place] (PCP/Family) Primary Care Physician LUZ ELENA CISNEROS JR, MD Patient Instructions: Urinary Tract Infection, Adult ED Add. Discharge Instructions: Cefdinir 1 capsule twice a day for the next 10 days to treat your bladder infec tion. This will help with your back pain. Take it with food. Drink lots of fluids. Follow-up with your primary care doctor as necessary to address your chronic pain issues. Immediately put your monitor back on when you get home and continue to wear it for the next 30 days until your scheduled appointment with Dr. Cisneros. Return to the ER for chest pain, shortness of air or other worrisome symptoms. All discharge instructions reviewed with patient and/or family. Voiced understanding. Scripts Cefdinir (Cefdinir) 300 Mg Capsule 300 MG PO BID for 10 Days, #20 CAP 0 Refills Prov: ROXANE COHEN 03/03/21 Copy Copies To 1: LUZ ELENA CISNEROS JR, TIMI BIRCH DO Mar 03, 2021 17:19 ROXANE COHEN Mar 03, 2021 18:15
[2021-03-03 17:38] VITALS: BP_SYST 102; BP_SYST 103; BP_SYST 117; BP_DIAS 72; BP_DIAS 73
[2021-03-03] MEDS ORDERED: LACTATED RINGERS 1,000 ML IV ONE (17:45)
[2021-03-03 17:51] LABS: BASOPHILS # (AUTO) 0.1 10^3/uL (0.0-0.1); BASOPHILS % (AUTO) 1 % (0-10); EOSINOPHILS # (AUTO) 0.1 10^3/uL (0.0-0.3); EOSINOPHILS % (AUTO) 1 % (0-10); HEMATOCRIT 42 % (40-54); HEMOGLOBIN 13.7 g/dL (13.3-17.7); LYMPHOCYTES # (AUTO) 2.4 10^3/uL (1.0-4.0); LYMPHOCYTES % (AUTO) 31 % (12-44); MEAN CORPUSCULAR HEMOGLOBIN 31 pg (25-34); MEAN CORPUSCULAR HGB CONC 33 g/dL (32-36); MEAN CORPUSCULAR VOLUME 93 fL (80-99); MEAN PLATELET VOLUME 9.1 fL (9.0-12.2); MONOCYTES # (AUTO) 0.7 10^3/uL (0.0-1.0); MONOCYTES % (AUTO) 10 % (0-12); NEUTROPHILS # (AUTO) 4.3 10^3/uL (1.8-7.8); NEUTROPHILS % (AUTO) 57 % (42-75); PLATELET COUNT 256 10^3/uL (130-400); WHITE BLOOD COUNT 7.6 10^3/uL (4.3-11.0)
[2021-03-03 18:02] LABS: ALBUMIN 3.9 GM/DL (3.2-4.5); CHLORIDE 104 MMOL/L (98-107); POTASSIUM 3.4 MMOL/L (3.6-5.0); SODIUM 141 MMOL/L (135-145)
[2021-03-03 18:04] LABS: CALCIUM 9.1 MG/DL (8.5-10.1)
[2021-03-03 18:05] LABS: GLUCOSE 109 MG/DL (70-105); TOTAL PROTEIN 7.1 GM/DL (6.4-8.2)
[2021-03-03 18:06] LABS: CARBON DIOXIDE 23 MMOL/L (21-32)
[2021-03-03 18:07] LABS: BILIRUBIN,TOTAL 0.5 MG/DL (0.1-1.0)
[2021-03-03 18:09] LABS: ALKALINE PHOSPHATASE 92 U/L (40-136); CREATININE SERUM 0.81 MG/DL (0.60-1.30); GFR ESTIMATED > 60
[2021-03-03 18:10] LABS: BUN/CREATININE RATIO 22
[2021-03-03 18:12] LABS: ALANINE AMINOTRANSFERASE 20 U/L (0-55); MAGNESIUM 1.9 MG/DL (1.6-2.4); SALICYLATE < 5.0 MG/DL (5.0-20.0)
[2021-03-03 18:13] LABS: CREATINE KINASE 84 U/L (30-200)
[2021-03-03 18:21] LABS: CREATINE KINASE MB 0.9 NG/ML (<6.6)
[2021-03-03 18:28] LABS: ACETAMINOPHEN < 10 UG/ML (10-30)
[2021-03-03 18:29] LABS: BILIRUBIN,URINE NEGATIVE (NEGATIVE); CLARITY,URINE CLEAR; COLOR,URINE YELLOW; GLUCOSE, URINE (UA) NEGATIVE (NEGATIVE); KETONES,URINE NEGATIVE (NEGATIVE); LEUKOCYTE ESTERASE ,URINE 1+ (NEGATIVE); NITRITE,URINE POSITIVE (NEGATIVE); PROTEIN,URINE NEGATIVE (NEGATIVE)
[2021-03-03 18:33] LABS: TSH (THYROID ANALYZER) 0.52 UIU/ML (0.35-4.94)
[2021-03-03 18:36] LABS: BACTERIA,URINE LARGE /HPF
[2021-03-03 18:50] LABS: AMPHETAMINE SCREEN, URINE NEGATIVE (NEGATIVE); BARBITURATE SCREEN URINE NEGATIVE (NEGATIVE); BENZODIAZEPINES SCREEN URINE NEGATIVE (NEGATIVE); CANNABINOID SCREEN, URINE NEGATIVE (NEGATIVE); COCAINE SCREEN URINE NEGATIVE (NEGATIVE); METHADONE STAT NEGATIVE (NEGATIVE); METHAMPHETAMINE SCREEN URINE S NEGATIVE (NEGATIVE); OPIATE SCREEN URINE NEGATIVE (NEGATIVE); OXYCODONE STAT NEGATIVE (NEGATIVE); PROPOXYPHENE STAT NEGATIVE (NEGATIVE); TRICYCLIC ANTIDEPRESSANTS SCRE NEGATIVE (NEGATIVE)
[2021-03-03] MEDS ORDERED: CEFD300C3 PO (19:26)
[2021-03-03] MEDS ORDERED: HYDROcodone/APAP 5 MG/325 MG (LORTAB) TAB PO ONE (19:30)
[2021-03-03] MEDS ORDERED: CEFDINIR 300 MG (OMNICEF) CAP PO ONE (19:30)
[2021-03-03 19:32] VITALS: BP 117/68
== END 2021-03-03 19:32 | disposition home or self-care (01) ==
LOC: EDUNIT# 17:09 → ER 17:10
DX: R55 Syncope and collapse (principal); N39.0 Urinary tract infection, site not specified; I10 Essential (primary) hypertension; E78.00 Pure hypercholesterolemia, unspecified; I25.10 Atherosclerotic heart disease of native coronary artery without angina pectoris; F17.210 Nicotine dependence, cigarettes, uncomplicated; Z86.73 Personal history of transient ischemic attack (TIA), and cerebral infarction without residual deficits; Z79.899 Other long term (current) drug therapy; Z79.82 Long term (current) use of aspirin
CPT/HCPCS: 80053; 80306; 81000; 82550; 82553; 83735; 83874; 83880; 84443; 84484; 85025; 87077; 87088; 87186; 93005; 93041; 96360; 99284; G0480 ×3; 36415; 80320; 80329

== ENCOUNTER 2021-03-13 12:59 | Emergency (ER) | payer MEDICARE ==
[~2021-03-13] VITALS: Ht 177 cm; Wt 54.0 kg
[~2021-03-13 12:59] MED LIST changes: +CEFD300C3 PO
[2021-03-13] MEDS ORDERED: PRD20T PO (14:11)
[2021-03-13] MEDS ORDERED: AMOX-358 PO (14:11)
[2021-03-13] MEDS ORDERED: OFLO5DRO33 LEFT EAR (14:11)
--- NOTE | 2021-03-13 14:12 | ED EENT ---
History of Present Illness General Chief Complaint: Ear Problems Stated Complaint: EAR INFECTION;STOMACH PAIN Nursing Triage Note: THE PT IS AMBULATORY TO THE ROOM WITHOUT DIFFICULTY. NO DISTRESS IS SEEN ON ARRIVAL. LOC IS NORMAL FOR THE PT. THE PT C/O OF LOSS OF HEARING IN BOTH EARS. Source: patient Exam Limitations: no limitations (ALBA ROSA APRN) History of Present Illness Date Seen by Provider: Mar 13, 2021 Time Seen by Provider: 14:07 Initial Comments bilat hearing loss, left ear drainage, bilat ear pain x a few days. Timing/Duration: gradual Location: ear (R), ear (L) Prearrival Treatment: no prearrival treatment Associated Symptoms: ear drainage (ALBA ROSA APRN) Allergies and Home Medications Allergies Coded Allergies: ibuprofen (Verified Allergy, Unknown, 04/05/15) HYPERTENSION tramadol (Verified Adverse Reaction, Unknown, VOMIT, 10/03/18) Home Medications Amlodipine Besylate 2.5 Mg Tablet, 2.5 MG PO DAILY Prescribed by: STALIN KISER on 01/27/21 1046 Amoxicillin/Potassium Clav 1 Each Tablet, 1 EACH PO BID Prescribed by: ALBA ROSA on 03/13/21 141 Aspirin 325 Mg Tablet.dr, 325 MG PO DAILY Prescribed by: STALIN KISER on 01/27/21 104 Atorvastatin Calcium 80 Mg Tablet, 80 MG PO DAILY Prescribed by: STALIN KISER on 01/27/21 104 Cefdinir 300 Mg Capsule, 300 MG PO BID Prescribed by: ROXANE COHEN on 03/03/21 192 Ofloxacin 5 Ml Drops, 5 DROPS LEFT EAR BID Prescribed by: ALBA ROSA on 03/13/21 141 Prednisone 20 Mg Tab, 40 MG PO DAILY Prescribed by: ALBA ROSA on 03/13/21 141 Patient Home Medication List Home Medication List Reviewed: Yes (ALBA ROSA APRN) Review of Systems Review of Systems Constitutional: see HPI Eyes: No Symptoms Reported Ears: See HPI, Pain, Purulent Discharge Nose: no symptoms reported Mouth: no symptoms reported Throat: no symptoms reported Respiratory: no symptoms reported Cardiovascular: no symptoms reported Musculoskeletal: no symptoms reported Skin: no symptoms reported (ALBA ROSA APRN) Past Iwxagjq-Nfbepz-Yrbobz Hx Immunizations Up To Date Tetanus Booster (TDap): Less than 5yrs PED Vaccines UTD: Yes (ALBA ROSA APRN) Seasonal Allergies Seasonal Allergies: No (ALBA ROSA APRN) Past Medical History Surgery/Hospitalization HX: CERVICAL SPINE SURGERY X 3 LUMBAR SPINE SURGERY X 3 CHOLECYSTECTOMY APPENDECTOMY SKIN CANCERS/LESIONS REMOVED FROM LIPS, EARS, HANDS BMT'S EGD'S WITH ESOPHAGEAL DILATIONS Surgeries: Yes Appendectomy, Ear Surgery, Gallbladder, Orthopedic Respiratory: Yes Chronic Bronchitis Currently Using CPAP: No Currently Using BIPAP: No Cardiac: Yes Coronary Artery Disease, High Cholesterol, Hypertension, Syncope Neurological: Yes (TIA 01/2021) TIA Reproductive Disorders: No Sexually Transmitted Disease: No HIV/AIDS: No Genitourinary: No Gastrointestinal: Yes (ESOPAGEAL STRICTURE/DILATIONS) Gastroesophageal Reflux Musculoskeletal: Yes (chronic left shoulder pain;CHRONIC NECK/BACK PAIN ) Degenerate Disk Disease, Arthritis, Chronic Back Pain Endocrine: No HEENT: Yes (POOR DENTITION; BMT'S ) Chronic Ear Infection Hearing Impairment: Hard of Hearing Cancer: Yes Skin Did You Recieve Any Treatments: Yes What Type of Treatment Did You: Surgical Intervention Psychosocial: Yes Anxiety, Suicide Attempts, Depression Integumentary: No Blood Disorders: No Adverse Reaction/Blood Tranf: No (N/A) (ALBA ROSA APRN) Family Medical History Cancer 03 FATHER (PROSTATE) 03 MOTHER (BREAST CA ) 09 BROTHER (THROAT/PANCREATIC) 09 SISTER (LIVER) DEAFNESS 03 FATHER 09 BROTHER Family history: Breast disease 03 MOTHER (BREAST CA) History of - respiratory disease Prostate cancer 03 FATHER Stroke 03 MOTHER Visual impairment No Pertinent Family Hx (ALBA ROSA APRN) Physical Exam Vital Signs Vital Signs - First Documented 03/13/21 13:17 Temp 36.8 Pulse 87 Resp 18 B/P (MAP) 150/90 (110) Pulse Ox 97 (KRISTINA MONCADA MD) Height, Weight, BMI Height: 5'6.00" Weight: 130lbs. 2.0oz. 59.317603wi; 17.00 BMI Method:Stated General Appearance: WD/WN, no apparent distress Eyes: bilateral eye normal inspection, bilateral eye PERRL, bilateral eye EOMI Ears: right ear TM red, right ear TM bulging; left ear discharge, left ear other (The right ear canal is normal with a bulging and erythematous tympanic membrane. The left ear canal is swollen and with purulent discharge that obscures view of the tympanic membrane.); bilateral ear auricle normal Mouth/Throat: normal mouth inspection, pharynx normal Neck: non-tender, full range of motion Respiratory: no respiratory distress, no accessory muscle use Gastrointestinal: normal bowel sounds, non tender Neurologic/Psychiatric: alert, normal mood/affect, oriented x 3 Skin: normal color, warm/dry (ALBA ROSA APRN) Progress/Results/Core Measures Results/Orders Vital Signs/I&O 03/13/21 03/13/21 13:17 14:31 Temp 36.8 36.8 Pulse 87 87 Resp 18 18 B/P (MAP) 150/90 (110) 150/90 Pulse Ox 97 97 (KRISTINA MONCADA MD) 2 Blood Pressure Mean: 110 Departure Impression Primary Impression: Otitis externa Additional Impression: Otitis media Disposition: 01 HOME, SELF-CARE Condition: Stable Departure-Patient Inst. Decision time for Depature: 14:09 (ALBA ROSA APRN) Referrals: [facility] [place] (PCP/Family) Primary Care Physician Patient Instructions: Ear Infection ED Add. Discharge Instructions: 1. Eardrops as directed 5 drops into the left ear twice a day for 7 days. Oral antibiotics as directed. All discharge instructions reviewed with patient and/or family. Voiced understanding. Scripts Ofloxacin (Floxin (Non-Formulary)) 5 Ml Drops 5 DROPS LEFT EAR BID for 5 Days, #1 DROPS 0 Refills Prov: ALBA ROSA APRN 03/13/21 Amoxicillin/Potassium Clav (Augmentin 875-125 Tablet) 1 Each Tablet 1 EACH PO BID, #14 TAB 0 Refills Prov: ALBA ROSA APRN 03/13/21 Prednisone (Prednisone) 20 Mg Tab 40 MG PO DAILY, #8 TAB 0 Refills Prov: ALBA ROSA APRN 03/13/21 ATTENDING PHYSICIAN NOTE: I was physically present as attending physician in the emergency department during the care of this patient, but I was not directly involved in the decision making or delivery of care for this patient. (KRISTINA MONCADA MD) ALBA ROSA APRN Mar 13, 2021 14:12 KRISTINA MONCADA MD Mar 13, 2021 19:13
[2021-03-13 14:31] VITALS: BP 150/90
== END 2021-03-13 14:33 | disposition home or self-care (01) ==
LOC: EDUNIT# 12:59 → ER 13:01
DX: H60.91 Unspecified otitis externa, right ear (principal); H66.91 Otitis media, unspecified, right ear; I10 Essential (primary) hypertension; I25.10 Atherosclerotic heart disease of native coronary artery without angina pectoris; Z86.73 Personal history of transient ischemic attack (TIA), and cerebral infarction without residual deficits; Z88.6 Allergy status to analgesic agent; Z79.82 Long term (current) use of aspirin; Z79.899 Other long term (current) drug therapy
CPT/HCPCS: 99282

== ENCOUNTER 2021-09-01 22:04 | Inpatient (IN) | payer MEDICARE ==
[~2021-09-01] VITALS: Ht 167.7 cm; Wt 63.7 kg
[~2021-09-01 22:04] MED LIST changes: +CYCL10TA25 PO; +OFLO5DRO33 LEFT EAR
[2021-09-01] MEDS ORDERED: LACTATED RINGERS 1,000 ML IV STA (22:30)
[2021-09-01] MEDS ORDERED: ACETAMINOPHEN 325 MG TABLET PO STA (22:30)
[2021-09-01 22:40] LABS: BASOPHILS % (AUTO) 0 % (0-10); EOSINOPHILS % (AUTO) 0 % (0-10); HEMATOCRIT 44 % (40-54); HEMOGLOBIN 14.7 g/dL (13.3-17.7); LYMPHOCYTES % (AUTO) 18 % (12-44); MEAN CORPUSCULAR HEMOGLOBIN 35 pg (25-34); MEAN CORPUSCULAR HGB CONC 33 g/dL (32-36); MEAN CORPUSCULAR VOLUME 105 fL (80-99); MEAN PLATELET VOLUME 8.9 fL (9.0-12.2); MONOCYTES # (AUTO) 0.4 10^3/uL (0.0-1.0); MONOCYTES % (AUTO) 8 % (0-12); NEUTROPHILS # (AUTO) 3.7 10^3/uL (1.8-7.8); NEUTROPHILS % (AUTO) 73 % (42-75); PLATELET COUNT 152 10^3/uL (130-400); WHITE BLOOD COUNT 5.2 10^3/uL (4.3-11.0)
[2021-09-01 22:41] LABS: SMEAR SCAN COMMENT YES
[2021-09-01 22:42] LABS: ALBUMIN 3.8 GM/DL (3.2-4.5); CHLORIDE 103 MMOL/L (98-107); POTASSIUM 3.1 MMOL/L (3.6-5.0); SODIUM 142 MMOL/L (135-145)
[2021-09-01 22:43] LABS: CALCIUM 9.3 MG/DL (8.5-10.1)
[2021-09-01 22:45] LABS: GLUCOSE 113 MG/DL (70-105); TOTAL PROTEIN 7.1 GM/DL (6.4-8.2)
[2021-09-01 22:46] LABS: BILIRUBIN,TOTAL 0.5 MG/DL (0.1-1.0); CARBON DIOXIDE 23 MMOL/L (21-32)
[2021-09-01 22:48] LABS: ALKALINE PHOSPHATASE 241 U/L (40-136); CREATININE SERUM 0.82 MG/DL (0.60-1.30); GFR ESTIMATED 97
[2021-09-01 22:50] LABS: BUN/CREATININE RATIO 17
[2021-09-01 22:51] LABS: ALANINE AMINOTRANSFERASE 47 U/L (0-55); SALICYLATE < 5.0 MG/DL (5.0-20.0)
[2021-09-01 22:53] LABS: ACETAMINOPHEN < 10 UG/ML (10-30); FIBRIN DEGRADATION PRODUCTS 0.98 UG/ML (0.00-0.49); INR 0.9 (0.8-1.4); PROTHROMBIN TIME PATIENT 12.9 SEC (12.2-14.7)
[2021-09-01 22:57] LABS: BILIRUBIN,URINE NEGATIVE (NEGATIVE); CLARITY,URINE CLEAR; COLOR,URINE YELLOW; GLUCOSE, URINE (UA) NEGATIVE (NEGATIVE); KETONES,URINE NEGATIVE (NEGATIVE); LEUKOCYTE ESTERASE ,URINE 1+ (NEGATIVE); NITRITE,URINE NEGATIVE (NEGATIVE); PROTEIN,URINE 1+ (NEGATIVE)
--- NOTE | 2021-09-01 23:02 | ED General ---
General Chief Complaint: General Problems/Pain Stated Complaint: COLD EXPOSURE X5 HOURS Nursing Triage Note: PT TO ER WITH NEPHEW BY WC WITH C/O BEING FOUND OUTSIDE FOR NUMEROUS HOURS AND PT STATES HE HAS HAD DIARRHIA FOR A MONTH AND HAS BEEN TAKING OVER A BOTTLE OF NYQUIL DAILY FOR A WHILE. PT ALSO IS A DAILY WHISKEY DRINKER Source of Information: Patient Exam Limitations: No Limitations History of Present Illness Date Seen by Provider: Sep 01, 2021 Time Seen by Provider: 22:19 Initial Comments Here after being brought in by nephew with report of being outside for many hours this evening. Also has had diarrhea for the last month. He is drinking NyQuil daily, at least a whole bottle, for some concern of symptoms. He is a known alcoholic is also reportedly drinking quite a bit. He says he was outside looking for his little dog who cannot handle the cold. The dog was apparently in the house the whole time. Arrives febrile with chills. He admits to diarrhea. Patient is moderately confused and this makes history limited. Denies chest pain or breathing problems. Does state that he did get COVID vaccination completed 2 series and this was verified May of this year with [email or web address]. Patient reports he is too weak to walk and he had to be assisted from car to wheelchair and wheelchair to bed. He has to be assisted to sit up due to weakness. Timing/Duration: 4-6 Hours (Tonight), 1 Week, Getting Worse Severity: Moderate, Severe Associated Systoms: No Chest Pain, No Cough; Fever/Chills; No Nausea/Vomiting, No Shortness of Air; Weakness Allergies and Home Medications Allergies Coded Allergies: ibuprofen (Verified Allergy, Unknown, 04/05/15) HYPERTENSION tramadol (Verified Adverse Reaction, Unknown, VOMIT, 10/03/18) Patient Home Medication List Home Medication List Reviewed: Yes Amlodipine Besylate (Amlodipine Besylate) 2.5 Mg Tablet, 2.5 MG PO DAILY Prescribed by: STALIN KISER on 01/27/21 1046 Amoxicillin/Potassium Clav (Augmentin 875-125 Tablet) 1 Each Tablet, 1 EACH PO BID Prescribed by: ALBA ROSA on 03/13/21 1411 Aspirin (Aspirin EC) 325 Mg Tablet.dr, 325 MG PO DAILY Prescribed by: STALIN KISER on 01/27/21 1046 Atorvastatin Calcium (Atorvastatin Calcium) 80 Mg Tablet, 80 MG PO DAILY Prescribed by: STALIN KISER on 01/27/21 1046 Cefdinir (Cefdinir) 300 Mg Capsule, 300 MG PO BID Prescribed by: ROXANE COHEN on 03/03/21 1926 Ofloxacin (Floxin (Non-Formulary)) 5 Ml Drops, 5 DROPS LEFT EAR BID Prescribed by: ALBA ROSA on 03/13/21 141 Prednisone (Prednisone) 20 Mg Tab, 40 MG PO DAILY Prescribed by: ALBA ROSA on 03/13/21 1411 Review of Systems Review of Systems Constitutional: see HPI, fever, malaise, weakness EENTM: No nose congestion, No throat pain Respiratory: No cough, No short of breath Cardiovascular: No chest pain, No edema Gastrointestinal: No abdominal pain; diarrhea; No nausea, No vomiting Genitourinary: no symptoms reported Musculoskeletal: No back pain; muscle weakness Skin: no symptoms reported Psychiatric/Neurological: Tremors, Weakness All Other Systems Reviewed Negative Unless Noted: No (Review of systems limited due to underlying altered mental status and current illness.) Past Iixlhyf-Fgijsa-Fxdhqw Hx Patient Social History Tobacco Use?: Yes Tobacco type used: Cigarettes Smoking Status: Current Everyday Smoker Substance use?: No Alcohol Use?: Yes Alcohol type: Hard Liquor Alcohol Frequency: Daily Pt feels they are or have been: No Immunizations Up To Date Tetanus Booster (TDap): Less than 5yrs PED Vaccines UTD: Yes Influenza Vaccine Up-to-Date: No; Not Current First/Initial COVID19 Vaccinat: 04/06 Second COVID19 Vaccination Jl: 05/07 COVID19 Vaccine [employer]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: [employer] Seasonal Allergies Seasonal Allergies: No Past Medical History Surgery/Hospitalization HX: CERVICAL SPINE SURGERY X 3 LUMBAR SPINE SURGERY X 3 CHOLECYSTECTOMY APPENDECTOMY SKIN CANCERS/LESIONS REMOVED FROM LIPS, EARS, HANDS BMT'S EGD'S WITH ESOPHAGEAL DILATIONS Surgeries: Yes Appendectomy, Ear Surgery, Gallbladder, Orthopedic Respiratory: Yes Chronic Bronchitis Currently Using CPAP: No Currently Using BIPAP: No Cardiac: Yes Coronary Artery Disease, High Cholesterol, Hypertension, Syncope Neurological: Yes (TIA 01/2021) TIA Reproductive Disorders: No Sexually Transmitted Disease: No HIV/AIDS: No Genitourinary: No Gastrointestinal: Yes (ESOPAGEAL STRICTURE/DILATIONS) Gastroesophageal Reflux Musculoskeletal: Yes (chronic left shoulder pain;CHRONIC NECK/BACK PAIN ) Degenerate Disk Disease, Arthritis, Chronic Back Pain Endocrine: No HEENT: Yes (POOR DENTITION; BMT'S ) Chronic Ear Infection Hearing Impairment: Hard of Hearing Cancer: Yes Skin Did You Recieve Any Treatments: Yes What Type of Treatment Did You: Surgical Intervention Psychosocial: Yes Anxiety, Suicide Attempts, Depression Integumentary: No Blood Disorders: No Adverse Reaction/Blood Tranf: No (N/A) Family Medical History Reviewed Nursing Family Hx Cancer 03 FATHER (PROSTATE) 03 MOTHER (BREAST CA ) 09 BROTHER (THROAT/PANCREATIC) 09 SISTER (LIVER) DEAFNESS 03 FATHER 09 BROTHER Family history: Breast disease 03 MOTHER (BREAST CA) History of - respiratory disease Prostate cancer 03 FATHER Stroke 03 MOTHER Visual impairment No Pertinent Family Hx Physical Exam-Suspected Sepsis Physical Exam Vital Signs Vital Signs - First Documented 09/01/21 22:10 Temp 39.1 Pulse 104 Resp 20 B/P (MAP) 171/102 (125) Pulse Ox 97 O2 Delivery Nasal Cannula O2 Flow Rate 2.00 Capillary Refill : Blood Pressure Mean: 125 Height, Weight, BMI Height: 5'6.00" Weight: 130lbs. 2.0oz. [id number]; 17.00 BMI Method:Stated General Appearance: Moderate Distress, Thin HEENT: PERRL/EOMI, Other (Mucous membranes dry) Neck: Full Range of Motion, Normal Inspection, Non Tender, Supple Respiratory: No Accessory Muscle Use; No Crackles; Decreased Breath Sounds; No Wheezing Cardiovascular: No Murmur, Tachycardia Gastrointestinal: Non Tender, Soft, Abnormal Bowel Sounds (Hyperactive bowel sounds) Back: Normal Inspection, No CVA Tenderness, No Vertebral Tenderness Extremity: Normal Range of Motion, Non Tender Neurologic/Psychiatric: Alert, Motor Weakness (Global), Other (Confused as to time and situation but knows self) Skin: other (Very warm skin with abrasion to the left boyer anterior area approximately 2 cm with some surrounding erythema and without purulent drainage) Focused Exam Lactate Level 09/01/21 22:19: Lactic Acid Level 3.28*H Lactic Acid Level Laboratory Tests Test 09/01/21 22:19 Lactic Acid Level 3.28 MMOL/L (0.50-2.00) *H Progress/Results/Core Measures Suspected Sepsis SIRS Temperature: Pulse: 104 Respiratory Rate: 20 Laboratory Tests 09/01/21 22:19: White Blood Count 5.2 Blood Pressure 171 /102 Mean: 125 09/01/21 22:19: Lactic Acid Level 3.28*H Laboratory Tests 09/01/21 22:19: Creatinine 0.82, INR Comment 0.9, Platelet Count 152, Total Bilirubin 0.5 Results/Orders Lab Results Laboratory Tests Test 09/01/21 22:19 09/01/21 22:23 09/01/21 22:24 Range/Units White Blood Count 5.2 4.3-11.0 10^3/uL Red Blood Count 4.20 L 4.30-5.52 10^6/uL Hemoglobin 14.7 13.3-17.7 g/dL Hematocrit 44 40-54 % Mean Corpuscular Volume 105 H 80-99 fL Mean Corpuscular Hemoglobin 35 H 25-34 pg Mean Corpuscular Hemoglobin Concent 33 32-36 g/dL Red Cell Distribution Width 13.9 10.0-14.5 % Platelet Count 152 130-400 10^3/uL Mean Platelet Volume 8.9 L 9.0-12.2 fL Immature Granulocyte % (Auto) 0 % Neutrophils (%) (Auto) 73 42-75 % Lymphocytes (%) (Auto) 18 12-44 % Monocytes (%) (Auto) 8 0-12 % Eosinophils (%) (Auto) 0 0-10 % Basophils (%) (Auto) 0 0-10 % Neutrophils # (Auto) 3.7 1.8-7.8 10^3/uL Lymphocytes # (Auto) 1.0 1.0-4.0 10^3/uL Monocytes # (Auto) 0.4 0.0-1.0 10^3/uL Eosinophils # (Auto) 0.0 0.0-0.3 10^3/uL Basophils # (Auto) 0.0 0.0-0.1 10^3/uL Immature Granulocyte # (Auto) 0.0 0.0-0.1 10^3/uL Prothrombin Time 12.9 12.2-14.7 SEC INR Comment 0.9 0.8-1.4 Activated Partial Thromboplast Time 21 L 24-35 SEC D-Dimer 0.98 H 0.00-0.49 UG/ML Sodium Level 142 135-145 MMOL/L Potassium Level 3.1 L 3.6-5.0 MMOL/L Chloride Level 103 98-107 MMOL/L Carbon Dioxide Level 23 21-32 MMOL/L Anion Gap 16 H 5-14 MMOL/L Blood Urea Nitrogen 14 7-18 MG/DL Creatinine 0.82 0.60-1.30 MG/DL Estimat Glomerular Filtration Rate 97 BUN/Creatinine Ratio 17 Glucose Level 113 H 70-105 MG/DL Lactic Acid Level 3.28 *H 0.50-2.00 MMOL/L Calcium Level 9.3 8.5-10.1 MG/DL Corrected Calcium 9.5 8.5-10.1 MG/DL Total Bilirubin 0.5 0.1-1.0 MG/DL Aspartate Amino Transf (AST/SGOT) 94 H 5-34 U/L Alanine Aminotransferase (ALT/SGPT) 47 0-55 U/L Alkaline Phosphatase 241 H 40-136 U/L C-Reactive Protein High Sensitivity 1.36 H 0.00-0.50 MG/DL Total Protein 7.1 6.4-8.2 GM/DL Albumin 3.8 3.2-4.5 GM/DL Procalcitonin 0.08 <0.10 NG/ML Salicylates Level < 5.0 L 5.0-20.0 MG/DL Acetaminophen Level < 10 L 10-30 UG/ML Serum Alcohol < 10 <10 MG/DL Smear Scan YES Influenza Type A (RT-PCR) Not Detected Not Detecte Influenza Type B (RT-PCR) Not Detected Not Detecte SARS-CoV-2 RNA (RT-PCR) Detected H Not Detecte Urine Color YELLOW Urine Clarity CLEAR Urine pH 6.0 5-9 Urine Specific [place] 1.025 H 1.016-1.022 Urine Protein 1+ H NEGATIVE Urine Glucose (UA) NEGATIVE NEGATIVE Urine Ketones NEGATIVE NEGATIVE Urine Nitrite NEGATIVE NEGATIVE Urine Bilirubin NEGATIVE NEGATIVE Urine Urobilinogen 0.2 < = 1.0 MG/DL Urine Leukocyte Esterase 1+ H NEGATIVE Urine RBC (Auto) TRACE-I H NEGATIVE Urine RBC NONE /HPF Urine WBC 25-50 H /HPF Urine Crystals NONE /LPF Urine Bacteria LARGE H /HPF Urine Casts NONE /LPF Urine Mucus NEGATIVE /LPF Urine Culture Indicated CULTURE PENDING Urine Opiates Screen POSITIVE H NEGATIVE Urine Oxycodone Screen NEGATIVE NEGATIVE Urine Methadone Screen NEGATIVE NEGATIVE Urine Propoxyphene Screen NEGATIVE NEGATIVE Urine Barbiturates Screen NEGATIVE NEGATIVE Ur Tricyclic Antidepressants Screen NEGATIVE NEGATIVE Urine Phencyclidine Screen NEGATIVE NEGATIVE Urine Amphetamines Screen NEGATIVE NEGATIVE Urine Methamphetamines Screen NEGATIVE NEGATIVE Urine Benzodiazepines Screen POSITIVE H NEGATIVE Urine Cocaine Screen NEGATIVE NEGATIVE Urine Cannabinoids Screen NEGATIVE NEGATIVE My Orders Orders - DIEGO NEWBERRY MD Cbc With Automated Diff (09/01/21 22:30) Comprehensive Metabolic Panel (09/01/21 22:30) Blood Culture (09/01/21 22:30) Sputum Culture (09/01/21 22:30) Urinalysis (09/01/21 22:30) Urine Culture (09/01/21 22:30) Protime With Inr (09/01/21 22:30) Partial Thromboplastin Time (09/01/21 22:30) Chest 1 View, Ap/Pa Only (09/01/21 22:30) Ed Iv/Invasive Line Start (09/01/21 22:30) Ed Iv/Invasive Line Start (09/01/21 22:30) Vital Signs Adult Sepsis Patie Q15M (09/01/21 22:30) O2 (09/01/21 22:30) Remove Rings In Anticipation O (09/01/21 22:30) Lactic Acid Analyzer (09/01/21 22:30) Influenza A And B By Pcr (09/01/21 22:30) Fibrin Degradation Products (09/01/21 22:30) Procalcitonin (Pct) (09/01/21 22:30) Hs C Reactive Protein (09/01/21 22:30) Covid 19 Inhouse Test (09/01/21 22:30) Lactated Ringers (Lr 1000 Ml Iv Solution (09/01/21 22:30) Acetaminophen Tablet/Caplet (Tylenol T (09/01/21 22:30) Acetaminophen (09/01/21 22:30) Alcohol (09/01/21 22:30) Drug Screen Stat (Urine) (09/01/21 22:30) Salicylate (09/01/21 22:30) Ceftriaxone 1 Gm Pre-Mix (Rocephin 1 Gm (09/01/21 23:51) Dexamethasone Injection (Decadron Inje (09/02/21 00:00) Vital Signs/I&O 09/01/21 1 22:10 22:20 Temp 39.1 Pulse 104 Resp 20 B/P (MAP) 171/102 (125) Pulse Ox 97 98 O2 Delivery Nasal Cannula Nasal Cannula O2 Flow Rate 2.00 2.00 09/02/21 00:00 Intake Total 1000 ml Balance 1000 ml Capillary Refill : Blood Pressure Mean: 125 Progress Note : Progress Note Seen and evaluated. Sepsis protocol initiated. LR 1 L bolus. We will check influenza and COVID screens. Parada catheter placed as patient is too weak to sit up and for accurate output. Monitor patient. 2350: Patient is COVID- positive. Does have findings consistent with urinary tract infection. We will give Rocephin 1 g IV. He is not hypotensive and is not in septic shock so does not require high-volume fluid resuscitation but did receive 1 L of LR. We will continue that inpatient. There is concerns about alcohol withdrawal and his alcohol was negative currently. I did discuss the case with Dr. Cramer, on- call for [facility]. We will initiate Decadron 6 mg IV and initiate COVID order set as well as continue Rocephin daily and treat possible UTI until cult ure results obtained. Procalcitonin is negative and white count is normal so I do not believe he has bacterial septic findings and do not believe he has bacterial pneumonia at this point. He will also be on alcohol withdrawal protocol. Admit to [facility], inpatient status. Patient and family agree with plan. Diagnostic Imaging Diagonstic Imaging: Xray Plain Films/CT/US/NM/MRI: chest Comments Bilateral infiltrates consistent with COVID infection. Departure Communication (Admissions) Time/Spoke to Admitting Phy: 23:50 Impression Primary Impression: Pneumonia due to COVID-19 virus Additional Impressions: Urinary tract infection Qualified Codes: N30.00 - Acute cystitis without hematuria ETOH abuse Disposition: ADMITTED INPATIENT Condition: Stable Admissions Decision to Admit Reason: Admit from ER (General) Decision to Admit/Date: Sep 01, 2021 Time/Decision to Admit Time: 23:50 Departure-Patient Inst. Ref[facility]: [facility] [place] Primary Care Physician DIEGO NEWBERRY MD Sep 01, 2021 23:02
[2021-09-01 23:11] LABS: BACTERIA,URINE LARGE /HPF; WBC,URINE 25-50 /HPF
[2021-09-01 23:12] LABS: AMPHETAMINE SCREEN, URINE NEGATIVE (NEGATIVE); BARBITURATE SCREEN URINE NEGATIVE (NEGATIVE); BENZODIAZEPINES SCREEN URINE POSITIVE (NEGATIVE); CANNABINOID SCREEN, URINE NEGATIVE (NEGATIVE); COCAINE SCREEN URINE NEGATIVE (NEGATIVE); METHADONE STAT NEGATIVE (NEGATIVE); METHAMPHETAMINE SCREEN URINE S NEGATIVE (NEGATIVE); OPIATE SCREEN URINE POSITIVE (NEGATIVE); OXYCODONE STAT NEGATIVE (NEGATIVE); PROPOXYPHENE STAT NEGATIVE (NEGATIVE); TRICYCLIC ANTIDEPRESSANTS SCRE NEGATIVE (NEGATIVE)
[2021-09-01] MEDS ORDERED: cefTRIAXone 1 GM PRE-MIX 50 ML IV STA (23:51)
[2021-09-02] VITALS (7 sets, daily range): BP systolic 120–171; BP diastolic 61–102
[2021-09-02] MEDS ORDERED: LACTATED RINGERS 1,000 ML IV ONE (01:02)
[2021-09-02] MEDS ORDERED: ACETAMINOPHEN 325 MG TABLET ONE (01:15)
[2021-09-02] MEDS ORDERED: ONDANSETRON 4 MG/5 ML ORAL SOLN (ZOFRAN) 5 ML PO PRN (02:00)
[2021-09-02] MEDS ORDERED: ACETAMINOPHEN 325 MG TABLET PO PRN (02:00)
[2021-09-02] MEDS ORDERED: ONDANSETRON 4 MG/2 ML (SDV) Z0FRAN IV PRN (02:00)
[2021-09-02] MEDS ORDERED: ACETAMINOPHEN 650 MG SUPP (TYLENOL) PR PRN (02:00)
[2021-09-02] MEDS ORDERED: RT-ALBUTEROL HFA 8.5 GM INHALER IH PRN ×2 (02:15→03:30)
[2021-09-02] MEDS ORDERED: LORazepam INJ 2 MG/ML (ATIVAN) VIAL IM/IV PRN (02:15)
[2021-09-02] MEDS ORDERED: LORazepam INJ 2 MG/ML (ATIVAN) VIAL IV PRN (02:15)
[2021-09-02] MEDS ORDERED: SENNA W/DOCUSATE (SENOKOT S) TABLET PO PRN (02:15)
[2021-09-02] MEDS ORDERED: ANTACID SUSP 30 ML UDC (MYLANTA) PO PRN (02:15)
[2021-09-02] MEDS ORDERED: 1/2 NS IV SOLUTION 1,000 ML IV PRN (02:15)
[2021-09-02] MEDS ORDERED: D5 1/2 NS 1000 ML IV SOLUTION 1,000 ML IV PRN (02:15)
[2021-09-02] MEDS: LACTATED RINGERS 1,000 ML IV SCH ×3 (02:24→18:37)
[2021-09-02 06:31] LABS: BASOPHILS % (AUTO) 0 % (0-10); EOSINOPHILS % (AUTO) 0 % (0-10); HEMATOCRIT 42 % (40-54); LYMPHOCYTES # (AUTO) 0.6 10^3/uL (1.0-4.0); LYMPHOCYTES % (AUTO) 29 % (12-44); MEAN CORPUSCULAR HEMOGLOBIN 36 pg (25-34); MEAN CORPUSCULAR HGB CONC 34 g/dL (32-36); MEAN CORPUSCULAR VOLUME 105 fL (80-99); MEAN PLATELET VOLUME 9.1 fL (9.0-12.2); MONOCYTES # (AUTO) 0.1 10^3/uL (0.0-1.0); MONOCYTES % (AUTO) 6 % (0-12); NEUTROPHILS # (AUTO) 1.4 10^3/uL (1.8-7.8); NEUTROPHILS % (AUTO) 65 % (42-75); PLATELET COUNT 126 10^3/uL (130-400); WHITE BLOOD COUNT 2.1 10^3/uL (4.3-11.0)
[2021-09-02 06:59] LABS: POTASSIUM 3.1 MMOL/L (3.6-5.0)
[2021-09-02 07:00] LABS: CALCIUM 8.7 MG/DL (8.5-10.1)
[2021-09-02] MEDS ORDERED: MULTIVIT W/MINERALS TAB (THERAGRAN M) PO SCH (07:00)
[2021-09-02] MEDS ORDERED: THIAMINE 100 MG (VITAMIN B-1) TAB PO SCH (07:00)
[2021-09-02 07:05] LABS: CREATININE SERUM 0.76 MG/DL (0.60-1.30)
--- NOTE | 2021-09-02 07:06 | Diagnostic Imaging Report ---
INDICATION: Sepsis. Comparison made with prior examination of 02/20/2021. FINDINGS: There is cardiomegaly. There is mild venous congestion. There are bibasilar infiltrates. No pleural effusion or pneumothorax. Mediastinum unremarkable. IMPRESSION: Bibasilar pulmonary infiltrates, right greater than left. Cardiomegaly and some central pulmonary venous congestion. Dictated by: Dictated on workstation # [id number]
[2021-09-02] MEDS: RT-ALBUTEROL HFA 8.5 GM INHALER IH SCH ×3 (08:39→22:08)
[2021-09-02] MEDS: UMECLIDINIUM BROMIDE (INCRUSE ELLIPTA) 7'S IH SCH (08:39)
[2021-09-02] MEDS ORDERED: RT-ALBUTEROL HFA 8.5 GM INHALER IH SCH (09:00)
[2021-09-02] MEDS ORDERED: MAGNESIUM OXIDE (MAG-OX)400 MG TAB PO SCH (09:00)
[2021-09-02] MEDS ORDERED: FOLIC ACID 1 MG TAB PO SCH (09:00)
[2021-09-02] MEDS: ENOXAPARIN 40 MG/0.4 ML (LOVENOX) SYR SC SCH (09:24)
[2021-09-02] MEDS: THIAMINE INJECTION 100 MG, FOLIC ACID INJECTION 1 MG, VITAMIN MULTI INJECTION 10 ML, MA... IV SCH ×5 (09:24)
[2021-09-02] MEDS: dexAMETHasone 6 MG TAB (DECADRON) PO SCH (09:27)
--- NOTE | 2021-09-02 12:16 | History & Physical-Hospitalist ---
History of Present Illness HPI/Chief Complaint Here after being brought in by nephew with report of being outside for many hours this evening. Also has had diarrhea for the last month. He is drinking NyQuil daily, at least a whole bottle, for some concern of symptoms. He is a known alcoholic is also reportedly drinking quite a bit. He says he was outside looking for his little dog who cannot handle the cold. The dog was apparently in the house the whole time. Arrives febrile with chills. He admits to diarrhea. Patient is moderately confused and this makes history limited. Denies chest pain or breathing problems. Does state that he did get COVID vacc ination completed 2 series and this was verified May of this year with [employer]. Patient reports he is too weak to walk and he had to be assisted from car to wheelchair and wheelchair to bed. He has to be assisted to sit up due to weakness Patient was sleeping soundly on my arrival last reported agitation per staff with no evidence for urinary retention and no patient complaints this morning t olerating liquids.Gait reportedly not ataxic no nystagmus noted. Date Seen 09/02/21 Time Seen by a Provider: 07:00 Attending Physician Chris Acuña MD PCP Center/[facility] Referring Physician Date of Admission Sep 01, 2021 at 23:55 Home Medications & Allergies Home Medications Reviewed patient Home Medication Reconciliation performed by pharmacy medication reconciliations data communications technician and/or nursing. Patients Allergies have been reviewed. Allergies Allergies Coded Allergies ibuprofen (Verified Allergy, Unknown, 04/05/15) HYPERTENSION tramadol (Verified Adverse Reaction, Unknown, VOMIT, 10/03/18) Past Gxjxjph-Ekwcrt-Jnazdr Hx Patient Social History Tobacco Use?: Yes Tobacco type used: Cigarettes Smoking Status: Current Everyday Smoker Use of E-Cig and/or Vaping dev: No Substance use?: Yes Substance type: Caffeine, Opiates/Opioids Alcohol Use?: Yes Alcohol type: Hard Liquor Alcohol Frequency: Daily Pt feels they are or have been: No Immunizations Up To Date Date of Influenza Vaccine: Jun 05, 2020 First/Initial COVID19 Vaccinat: 03/2021 Second COVID19 Vaccination Jl: 04/2021 Tetanus Booster (TDap): Less Than 5 Years Hepatitis A: No Hepatitis B: No PED Vaccines UTD: Yes Date of Pneumonia Vaccine: Jun 05, 2020 Seasonal Allergies Seasonal Allergies: No Current Status Advance Directives: Yes Communicates: Verbally Primary Language: Ukrainian Preferred Spoken Language: Ukrainian Is interpretation needed?: No Sensory deficits: Hearing impairment Implanted or Applied Medical D: Orthopedic hardware Past Medical History Surgeries: Appendectomy, Ear Surgery, Gallbladder, Orthopedic Chronic Bronchitis Currently Using CPAP: No Currently Using BIPAP: No Coronary Artery Disease, High Cholesterol, Hypertension, Syncope TIA Sexually Transmitted Disease: No HIV/AIDS: No Gastroesophageal Reflux Degenerate Disk Disease, Arthritis, Chronic Back Pain Chronic Ear Infection Hearing Impairment: Hard of Hearing Skin Did You Recieve Any Treatments: Yes What Type of Treatment Did You: Surgical Intervention Anxiety, Suicide Attempts, Depression Blood Disorders: No Adverse Reaction/Blood Tranf: No (N/A) Family Medical History Reviewed Nursing Family Hx Cancer 03 FATHER (PROSTATE) 03 MOTHER (BREAST CA ) 09 BROTHER (THROAT/PANCREATIC) 09 SISTER (LIVER) DEAFNESS 03 FATHER 09 BROTHER Family history: Breast disease 03 MOTHER (BREAST CA) History of - respiratory disease Prostate cancer 03 FATHER Stroke 03 MOTHER Visual impairment No Pertinent Family Hx Review of Systems Constitutional: see HPI Physical Exam Physical Exam Vital Signs Vital Signs - First Documented 09/01/21 22:10 Temp 39.1 Pulse 104 Resp 20 B/P (MAP) 171/102 (125) Pulse Ox 97 O2 Delivery Nasal Cannula O2 Flow Rate 2.00 Capillary Refill : Height, Weight, BMI Height: 5'6.00" Weight: 130lbs. 2.0oz. 59.509953me; 22.65 BMI Method:Stated General Appearance: No Apparent Distress, Chronically ill, Thin Neck: Full Range of Motion, Normal Inspection, Non Tender Respiratory: No Accessory Muscle Use, No Respiratory Distress, Other (Few dry sounding basilar rales chest clear otherwise) Cardiovascular: Regular Rate, Rhythm, No Edema, No Gallop, No JVD, No Murmur, Normal Peripheral Pulses Gastrointestinal: Normal Bowel Sounds, No Pulsatile Mass, Non Tender, Soft Extremity: Normal Capillary Refill, Normal Inspection, Normal Range of Motion, Non Tender, No Calf Tenderness, No Pedal Edema Results Results/Procedures Labs Laboratory Tests 09/01/21 22:19 09/02/21 06:21 Patient resulted labs reviewed. Assessment/Plan Admission Diagnosis 1. Probable COVID-related pneumonia in addition to underlying urinary tract infection resulting in elevated procalcitonin level with sepsis. Lactic acid has returned to normal vital signs are stable so underlying sepsis criteria have resolved we will continue Rocephin and Decadron. Stable oxygenation requirement. 2. Delirium secondary to #1 as well as diphenhydramine as the patient was reportedly drinking a bottle of NyQuil daily for an unknown length of time. Agitation improving. 3. Alcohol use disorder underlying malnutrition continue IV thiamine re placement etc. in the form of banana bag for the next 3 days and then switch to oral replacement and monitor for evidence for withdrawal currently no evidence for. Admission Status: Inpatient Order (span 2 midnights) Reason for Inpatient Admission: See admission diagnosis CHRIS ACUÑA MD Sep 02, 2021 12:16
[2021-09-02] MEDS: cefTRIAXone 1 GM IV (PRE-MIX) 50 ML IV SCH (21:40)
[2021-09-03] VITALS (7 sets, daily range): BP systolic 134–164; BP diastolic 67–84
[2021-09-03] MEDS: RT-ALBUTEROL HFA 8.5 GM INHALER IH SCH ×4 (02:40→21:24)
[2021-09-03] MEDS: LACTATED RINGERS 1,000 ML IV SCH ×2 (06:35→09:26)
[2021-09-03 06:43] LABS: BASOPHILS % (AUTO) 0 % (0-10); EOSINOPHILS % (AUTO) 0 % (0-10); HEMATOCRIT 37 % (40-54); HEMOGLOBIN 12.4 g/dL (13.3-17.7); LYMPHOCYTES # (AUTO) 0.9 10^3/uL (1.0-4.0); LYMPHOCYTES % (AUTO) 15 % (12-44); MEAN CORPUSCULAR HEMOGLOBIN 35 pg (25-34); MEAN CORPUSCULAR HGB CONC 34 g/dL (32-36); MEAN CORPUSCULAR VOLUME 105 fL (80-99); MEAN PLATELET VOLUME 9.7 fL (9.0-12.2); MONOCYTES # (AUTO) 0.5 10^3/uL (0.0-1.0); MONOCYTES % (AUTO) 9 % (0-12); NEUTROPHILS # (AUTO) 4.3 10^3/uL (1.8-7.8); NEUTROPHILS % (AUTO) 76 % (42-75); PLATELET COUNT 130 10^3/uL (130-400); WHITE BLOOD COUNT 5.7 10^3/uL (4.3-11.0)
[2021-09-03 07:05] LABS: BILIRUBIN,TOTAL 0.3 MG/DL (0.1-1.0); CALCIUM 8.4 MG/DL (8.5-10.1); CREATININE SERUM 0.66 MG/DL (0.60-1.30); POTASSIUM 2.9 MMOL/L (3.6-5.0); TOTAL PROTEIN 5.8 GM/DL (6.4-8.2)
[2021-09-03] MEDS: UMECLIDINIUM BROMIDE (INCRUSE ELLIPTA) 7'S IH SCH (08:38)
[2021-09-03] MEDS: THIAMINE INJECTION 100 MG, FOLIC ACID INJECTION 1 MG, VITAMIN MULTI INJECTION 10 ML, MA... IV SCH ×5 (09:24)
[2021-09-03] MEDS: ENOXAPARIN 40 MG/0.4 ML (LOVENOX) SYR SC SCH (09:26)
[2021-09-03] MEDS: dexAMETHasone 6 MG TAB (DECADRON) PO SCH (09:26)
--- NOTE | 2021-09-03 09:42 | Progress Note - Hospitalist ---
Subjective HPI/CC On Admission Date Seen by Provider: Sep 03, 2021 Time Seen by Provider: 10:00 Here after being brought in by nephew with report of being outside for many hours this evening. Also has had diarrhea for the last month. He is drinking NyQuil daily, at least a whole bottle, for some concern of symptoms. He is a known alcoholic is also reportedly drinking quite a bit. He says he was outside looking for his little dog who cannot handle the cold. The dog was apparently in the house the whole time. Arrives febrile with chills. He admits to diarrhea. Patient is moderately confused and this makes history limited. Denies chest pain or breathing problems. Does state that he did get COVID vaccination completed 2 series and this was verified May of this year with [facility]. Patient reports he is too weak to walk and he had to be assisted from car to wheelchair and wheelchair to bed. He has to be assisted to sit up due to weakness Patient was sleeping soundly on my arrival last reported agitation per staff with no evidence for urinary retention and no patient complaints this morning tolerating liquids.Gait reportedly not ataxic no nystagmus noted. Subjective/Events-last exam Pt is doing about the same Feels like he is doing better He doesn't use oxygen at home Alcohol abuse He has telesitter Banana bag will be changed to a multivitamin Feels pretty good otherwise and wants to go home soon Checked meds and labs Review of Systems General: Fatigue, Malaise Pulmonary: Dyspnea Neurological: Confusion Focused Exam Lactate Level 09/01/21 22:19: Lactic Acid Level 3.28*H 09/02/21 01:10: Lactic Acid Level 0.98 Objective Exam Vital Signs Vital Signs Date Time Temp Pulse Resp B/P (MAP) Pulse Ox O2 Delivery O2 Flow Rate FiO2 09/04/21 02:40 97 Nasal Cannula 2.00 09/03/21 23:57 36.0 60 20 164/84 (110) Capillary Refill : General Appearance: No Apparent Distress, WD/WN, Anxious, Chronically ill Respiratory: No Accessory Muscle Use, No Respiratory Distress, Decreased Breath Sounds Cardiovascular: Regular Rate, Rhythm Neurologic/Psychiatric: Alert, Oriented x3, No Motor/Sensory Deficits, Normal Mood/Affect Results/Procedures Lab Laboratory Tests 09/03/21 06:30 Patient resulted labs reviewed. Assessment/Plan Assessment and Plan Assess & Plan/Chief Complaint Assessment: 1. COVID-related pneumonia in addition to underlying urinary tract infection resulting in elevated procalcitonin level with sepsis. Lactic acid has returned to normal vital signs are stable so underlying sepsis criteria have resolved we will continue Rocephin and Decadron. Stable oxygenation requirement. 2. Delirium secondary to #1 as well as diphenhydramine as the patient was reportedly drinking a bottle of NyQuil daily for an unknown length of time. Agitation improving. 3. Alcohol use disorder underlying malnutrition continue IV thiamine replacement etc. in the form of banana bag for the next 3 days and then switch to oral replacement and monitor for evidence for withdrawal currently no evidence for. 4. Hypokalemia Plan: Replace potassium Monitor etoh withdrawal STALIN KISER DO Sep 03, 2021 09:42
[2021-09-03] MEDS ORDERED: KCL 20 MEQ TAB (K-DUR) PO ONE (14:30)
[2021-09-03] MEDS ORDERED: LOPERAMIDE 2 MG (IMODIUM) TABLET PO PRN (14:30)
[2021-09-03] MEDS: LACTOBACILLUS ACIDOPHILUS (PROBIOTIC) CAPSULE PO SCH ×2 (14:43→20:20)
[2021-09-03] MEDS: KCL 20 MEQ TAB (K-DUR) PO SCH (17:59)
[2021-09-03] MEDS: LORazepam 1 MG (ATIVAN) TAB PO PRN (20:20)
[2021-09-03] MEDS: cefTRIAXone 1 GM IV (PRE-MIX) 50 ML IV SCH (20:23)
[2021-09-04] VITALS (7 sets, daily range): BP systolic 134–190; BP diastolic 81–99
[2021-09-04] MEDS: RT-ALBUTEROL HFA 8.5 GM INHALER IH SCH ×4 (02:40→21:27)
[2021-09-04] MEDS: MULTIVIT W/MINERALS TAB (THERAGRAN M) PO SCH (05:50)
[2021-09-04] MEDS: THIAMINE 100 MG (VITAMIN B-1) TAB PO SCH (05:50)
[2021-09-04] MEDS: LACTOBACILLUS ACIDOPHILUS (PROBIOTIC) CAPSULE PO SCH ×4 (05:50→21:24)
[2021-09-04 06:46] LABS: BASOPHILS % (AUTO) 0 % (0-10); EOSINOPHILS % (AUTO) 0 % (0-10); HEMOGLOBIN 12.5 g/dL (13.3-17.7)
[2021-09-04 06:48] LABS: HEMATOCRIT 38 % (40-54); LYMPHOCYTES % (AUTO) 13 % (12-44); MEAN CORPUSCULAR HEMOGLOBIN 35 pg (25-34); MEAN CORPUSCULAR HGB CONC 33 g/dL (32-36); MEAN CORPUSCULAR VOLUME 107 fL (80-99); MEAN PLATELET VOLUME 9.6 fL (9.0-12.2); MONOCYTES # (AUTO) 0.5 10^3/uL (0.0-1.0); MONOCYTES % (AUTO) 7 % (0-12); NEUTROPHILS # (AUTO) 5.7 10^3/uL (1.8-7.8); NEUTROPHILS % (AUTO) 79 % (42-75); PLATELET COUNT 133 10^3/uL (130-400); WHITE BLOOD COUNT 7.3 10^3/uL (4.3-11.0)
--- NOTE | 2021-09-04 06:57 | Progress Note - Hospitalist ---
Subjective HPI/CC On Admission Date Seen by Provider: Sep 04, 2021 Time Seen by Provider: 11:00 Here after being brought in by nephew with report of being outside for many hours this evening. Also has had diarrhea for the last month. He is drinking NyQuil daily, at least a whole bottle, for some concern of symptoms. He is a known alcoholic is also reportedly drinking quite a bit. He says he was outside looking for his little dog who cannot handle the cold. The dog was apparently in the house the whole time. Arrives febrile with chills. He admits to diarrhea. Patient is moderately confused and this makes history limited. Denies chest pain or breathing problems. Does state that he did get COVID vaccination completed 2 series and this was verified May of this year with [employer]. Patient reports he is too weak to walk and he had to be assisted from car to wheelchair and wheelchair to bed. He has to be assisted to sit up due to weakness Patient was sleeping soundly on my arrival last reported agitation per staff with no evidence for urinary retention and no patient complaints this morning tolerating liquids.Gait reportedly not ataxic no nystagmus noted. Subjective/Events-last exam Pt is doing about the same Remains on oxygen Hydrocodone requested Alcohol withdrawal still maintained with a high score Elevated BP will be managed with addition of Norvasc 5 mg BID first dose now and Clonidine Review of Systems General: Fatigue, Malaise Pulmonary: Dyspnea, Cough Focused Exam Lactate Level Objective Exam Vital Signs Vital Signs Date Time Temp Pulse Resp B/P (MAP) Pulse Ox O2 Delivery O2 Flow Rate FiO2 09/05/21 03:58 35.9 80 100 21 09/05/21 03:15 Room Air 09/05/21 00:14 20 161/89 (113) 09/04/21 15:30 2.00 Capillary Refill : General Appearance: No Apparent Distress, WD/WN, Chronically ill Respiratory: No Accessory Muscle Use, No Respiratory Distress, Decreased Breath Sounds Cardiovascular: Regular Rate, Rhythm Neurologic/Psychiatric: Alert, Oriented x3, No Motor/Sensory Deficits, Normal Mood/Affect Results/Procedures Lab Laboratory Tests 09/04/21 06:37 Patient resulted labs reviewed. Assessment/Plan Assessment and Plan Assess & Plan/Chief Complaint Assessment: 1. COVID-related pneumonia in addition to underlying urinary tract infection resulting in elevated procalcitonin level with sepsis. Lactic acid has returned to normal vital signs are stable so underlying sepsis criteria have resolved we will continue Rocephin and Decadron. Stable oxygenation requirement. 2. Delirium secondary to #1 as well as diphenhydramine as the patient was reportedly drinking a bottle of NyQuil daily for an unknown length of time. Agitation improving. 3. Alcohol use disorder underlying malnutrition continue IV thiamine replacem ent etc. in the form of banana bag for the next 3 days and then switch to oral replacement and monitor for evidence for withdrawal currently no evidence for. 4. Hypokalemia Plan: Replace potassium Monitor etoh withdrawal 09/04/2021: Blood pressure control Oxygen COVID protocol Alcohol withdrawal protocol STALIN KISER DO Sep 04, 2021 06:57
[2021-09-04 07:07] LABS: ALBUMIN 3.2 GM/DL (3.2-4.5); BILIRUBIN,TOTAL 0.3 MG/DL (0.1-1.0); CALCIUM 8.3 MG/DL (8.5-10.1); CREATININE SERUM 0.69 MG/DL (0.60-1.30); MAGNESIUM 1.8 MG/DL (1.6-2.4); TOTAL PROTEIN 5.8 GM/DL (6.4-8.2)
[2021-09-04] MEDS: ENOXAPARIN 40 MG/0.4 ML (LOVENOX) SYR SC SCH (09:07)
[2021-09-04] MEDS: FOLIC ACID 1 MG TAB PO SCH (09:07)
[2021-09-04] MEDS: dexAMETHasone 6 MG TAB (DECADRON) PO SCH (09:07)
[2021-09-04] MEDS: LORazepam 1 MG (ATIVAN) TAB PO PRN ×2 (09:07→11:57)
[2021-09-04] MEDS: KCL 20 MEQ TAB (K-DUR) PO SCH ×2 (09:08→17:30)
[2021-09-04] MEDS: UMECLIDINIUM BROMIDE (INCRUSE ELLIPTA) 7'S IH SCH (10:49)
[2021-09-04] MEDS ORDERED: cloNIDine 0.1 MG (CATAPRES) TAB PO PRN (12:15)
[2021-09-04] MEDS ORDERED: amLODIPine 5 MG (NORVASC) TAB PO NR (12:30)
[2021-09-04] MEDS: amLODIPine 5 MG (NORVASC) TAB PO SCH (21:24)
[2021-09-04] MEDS: cefTRIAXone 1 GM IV (PRE-MIX) 50 ML IV SCH (21:25)
[2021-09-05] VITALS (9 sets, daily range): BP systolic 114–170; BP diastolic 72–103
[2021-09-05] MEDS: RT-ALBUTEROL HFA 8.5 GM INHALER IH SCH ×3 (03:15→19:20)
[2021-09-05] MEDS: THIAMINE 100 MG (VITAMIN B-1) TAB PO SCH (05:17)
[2021-09-05] MEDS: LACTOBACILLUS ACIDOPHILUS (PROBIOTIC) CAPSULE PO SCH ×4 (05:17→19:55)
[2021-09-05] MEDS: MULTIVIT W/MINERALS TAB (THERAGRAN M) PO SCH (05:17)
--- NOTE | 2021-09-05 05:56 | Progress Note - Hospitalist ---
Subjective HPI/CC On Admission Date Seen by Provider: Sep 05, 2021 Time Seen by Provider: 11:00 Here after being brought in by nephew with report of being outside for many hours this evening. Also has had diarrhea for the last month. He is drinking NyQuil daily, at least a whole bottle, for some concern of symptoms. He is a known alcoholic is also reportedly drinking quite a bit. He says he was outside looking for his little dog who cannot handle the cold. The dog was apparently in the house the whole time. Arrives febrile with chills. He admits to diarrhea. Patient is moderately confused and this makes history limited. Denies chest pain or breathing problems. Does state that he did get COVID vaccination completed 2 series and this was verified May of this year with [employer]. Patient reports he is too weak to walk and he had to be assisted from car to wheelchair and wheelchair to bed. He has to be assisted to sit up due to weakness Patient was sleeping soundly on my arrival last reported agitation per staff with no evidence for urinary retention and no patient complaints this morning tolerating liquids.Gait reportedly not ataxic no nystagmus noted. Subjective/Events-last exam Patient doing really well On room air now Home O2 eval completed since we were preparing for discharge and he did not need home oxygen Alcohol withdrawal is the biggest problem he has right now Will need to continue supportive care for alcohol withdrawal not discharge today Review of Systems General: Fatigue Objective Exam Vital Signs Vital Signs Date Time Temp Pulse Resp B/P (MAP) Pulse Ox O2 Delivery O2 Flow Rate FiO2 09/05/21 23:54 36.4 69 20 161/89 (113) 100 Room Air 09/05/21 03:58 21 09/04/21 15:30 2.00 Capillary Refill : General Appearance: Anxious, Moderate Distress, Thin Respiratory: No Accessory Muscle Use, No Respiratory Distress, Decreased Breath Sounds Cardiovascular: Regular Rate, Rhythm Neurologic/Psychiatric: Alert, Oriented x3, No Motor/Sensory Deficits, Normal Mood/Affect Results/Procedures Lab Laboratory Tests 09/05/21 05:53 Patient resulted labs reviewed. Assessment/Plan Assessment and Plan Assess & Plan/Chief Complaint Assessment: 1. COVID-related pneumonia in addition to underlying urinary tract infection resulting in elevated procalcitonin level with sepsis. Lactic acid has returned to normal vital signs are stable so underlying sepsis criteria have resolved we will continue Rocephin and Decadron. Stable oxygenation requirement. 2. Delirium secondary to #1 as well as diphenhydramine as the patient was reportedly drinking a bottle of NyQuil daily for an unknown length of time. Agitation improving. 3. Alcohol use disorder underlying malnutrition continue IV thiamine replacement etc. in the form of banana bag for the next 3 days and then switch to oral replacement and monitor for evidence for withdrawal currently no evidence for. 4. Hypokalemia Plan: Replace potassium Monitor etoh withdrawal 09/04/2021: Blood pressure control Oxygen COVID protocol Alcohol withdrawal protocol 09/05/2021: Doing well from the COVID standpoint Supportive care for alcohol withdrawal Attempt to discharge tomorrow perhaps STALIN KISER DO Sep 05, 2021 05:56
[2021-09-05 06:11] LABS: BASOPHILS % (AUTO) 0 % (0-10); EOSINOPHILS % (AUTO) 0 % (0-10)
[2021-09-05 06:12] LABS: HEMATOCRIT 42 % (40-54); HEMOGLOBIN 13.9 g/dL (13.3-17.7); LYMPHOCYTES # (AUTO) 0.9 10^3/uL (1.0-4.0); LYMPHOCYTES % (AUTO) 21 % (12-44); MEAN CORPUSCULAR HEMOGLOBIN 35 pg (25-34); MEAN CORPUSCULAR HGB CONC 33 g/dL (32-36); MEAN CORPUSCULAR VOLUME 105 fL (80-99); MEAN PLATELET VOLUME 9.2 fL (9.0-12.2); MONOCYTES # (AUTO) 0.6 10^3/uL (0.0-1.0); MONOCYTES % (AUTO) 14 % (0-12); NEUTROPHILS # (AUTO) 2.7 10^3/uL (1.8-7.8); NEUTROPHILS % (AUTO) 65 % (42-75); PLATELET COUNT 142 10^3/uL (130-400); WHITE BLOOD COUNT 4.2 10^3/uL (4.3-11.0)
[2021-09-05 06:52] LABS: ALBUMIN 3.5 GM/DL (3.2-4.5)
[2021-09-05 06:53] LABS: POTASSIUM 3.6 MMOL/L (3.6-5.0)
[2021-09-05 06:54] LABS: CALCIUM 8.6 MG/DL (8.5-10.1)
[2021-09-05 06:55] LABS: TOTAL PROTEIN 6.7 GM/DL (6.4-8.2)
[2021-09-05 06:57] LABS: BILIRUBIN,TOTAL 0.4 MG/DL (0.1-1.0)
[2021-09-05 06:58] LABS: CREATININE SERUM 0.65 MG/DL (0.60-1.30)
[2021-09-05] MEDS: UMECLIDINIUM BROMIDE (INCRUSE ELLIPTA) 7'S IH SCH (07:45)
[2021-09-05] MEDS: KCL 20 MEQ TAB (K-DUR) PO SCH ×2 (08:56→17:41)
[2021-09-05] MEDS: ENOXAPARIN 40 MG/0.4 ML (LOVENOX) SYR SC SCH (08:56)
[2021-09-05] MEDS: FOLIC ACID 1 MG TAB PO SCH (08:57)
[2021-09-05] MEDS: amLODIPine 5 MG (NORVASC) TAB PO SCH ×2 (08:57→19:55)
[2021-09-05] MEDS: dexAMETHasone 6 MG TAB (DECADRON) PO SCH (08:57)
[2021-09-05] MEDS: LORazepam 1 MG (ATIVAN) TAB PO PRN ×2 (08:58→15:41)
[2021-09-05] MEDS: cefTRIAXone 1 GM IV (PRE-MIX) 50 ML IV SCH (19:51)
[2021-09-06 04:59] VITALS: BP 155/93
[2021-09-06] MEDS: THIAMINE 100 MG (VITAMIN B-1) TAB PO SCH (05:22)
[2021-09-06] MEDS: MULTIVIT W/MINERALS TAB (THERAGRAN M) PO SCH (05:22)
[2021-09-06] MEDS: LACTOBACILLUS ACIDOPHILUS (PROBIOTIC) CAPSULE PO SCH ×2 (05:22→12:21)
[2021-09-06 06:30] LABS: BASOPHILS % (AUTO) 0 % (0-10); EOSINOPHILS % (AUTO) 0 % (0-10); HEMATOCRIT 41 % (40-54); HEMOGLOBIN 13.8 g/dL (13.3-17.7); LYMPHOCYTES % (AUTO) 20 % (12-44); MEAN CORPUSCULAR HEMOGLOBIN 35 pg (25-34); MEAN CORPUSCULAR HGB CONC 33 g/dL (32-36); MEAN CORPUSCULAR VOLUME 105 fL (80-99); MONOCYTES % (AUTO) 20 % (0-12); NEUTROPHILS # (AUTO) 2.9 10^3/uL (1.8-7.8); NEUTROPHILS % (AUTO) 59 % (42-75); PLATELET COUNT 137 10^3/uL (130-400); WHITE BLOOD COUNT 4.9 10^3/uL (4.3-11.0)
--- NOTE | 2021-09-06 06:46 | Progress Note - Hospitalist ---
Subjective HPI/CC On Admission Date Seen by Provider: Sep 06, 2021 Here after being brought in by nephew with report of being outside for many hours this evening. Also has had diarrhea for the last month. He is drinking NyQuil daily, at least a whole bottle, for some concern of symptoms. He is a known alcoholic is also reportedly drinking quite a bit. He says he was outside looking for his little dog who cannot handle the cold. The dog was apparently in the house the whole time. Arrives febrile with chills. He admits to diarrhea. Patient is moderately confused and this makes history limited. Denies chest pain or breathing problems. Does state that he did get COVID vaccination completed 2 series and this was verified May of this year with [employer]. Patient reports he is too weak to walk and he had to be assisted from car to wheelchair and wheelchair to bed. He has to be assisted to sit up due to weakness Patient was sleeping soundly on my arrival last reported agitation per staff with no evidence for urinary retention and no patient complaints this morning tolerating liquids.Gait reportedly not ataxic no nystagmus noted. Objective Exam Vital Signs Vital Signs Date Time Temp Pulse Resp B/P (MAP) Pulse Ox O2 Delivery O2 Flow Rate FiO2 09/06/21 08:49 Room Air 09/06/21 08:45 92 09/06/21 07:55 36.8 82 17 142/80 (100) 09/05/21 03:58 21 09/04/21 15:30 2.00 Capillary Refill : Results/Procedures Lab Laboratory Tests 09/06/21 06:25 Patient resulted labs reviewed. Assessment/Plan Assessment and Plan Assess & Plan/Chief Complaint Assessment: 1. COVID-related pneumonia in addition to underlying urinary tract infection resulting in elevated procalcitonin level with sepsis. Lactic acid has returned to normal vital signs are stable so underlying sepsis criteria have resolved we will continue Rocephin and Decadron. Stable oxygenation requirement. 2. Delirium secondary to #1 as well as diphenhydramine as the patient was reportedly drinking a bottle of NyQuil daily for an unknown length of time. Agitation improving. 3. Alcohol use disorder underlying malnutrition continue IV thiamine replacement etc. in the form of banana bag for the next 3 days and then switch to oral replacement and monitor for evidence for withdrawal currently no evidence for. 4. Hypokalemia Plan: Replace potassium Monitor etoh withdrawal 09/04/2021: Blood pressure control Oxygen COVID protocol Alcohol withdrawal protocol 09/05/2021: Doing well from the COVID standpoint Supportive care for alcohol withdrawal Attempt to discharge tomorrow perhaps STALIN KISER DO Sep 06, 2021 06:46
[2021-09-06 06:52] LABS: ALBUMIN 3.4 GM/DL (3.2-4.5); BILIRUBIN,TOTAL 0.4 MG/DL (0.1-1.0); CALCIUM 8.9 MG/DL (8.5-10.1); CREATININE SERUM 0.67 MG/DL (0.60-1.30); POTASSIUM 4.2 MMOL/L (3.6-5.0); TOTAL PROTEIN 6.5 GM/DL (6.4-8.2)
[2021-09-06 07:55] VITALS: BP 142/80
[2021-09-06] MEDS: RT-ALBUTEROL HFA 8.5 GM INHALER IH SCH (08:45)
[2021-09-06] MEDS: UMECLIDINIUM BROMIDE (INCRUSE ELLIPTA) 7'S IH SCH (08:45)
[2021-09-06] MEDS: KCL 20 MEQ TAB (K-DUR) PO SCH (09:14)
[2021-09-06] MEDS: amLODIPine 5 MG (NORVASC) TAB PO SCH (09:14)
[2021-09-06] MEDS: FOLIC ACID 1 MG TAB PO SCH (09:14)
[2021-09-06] MEDS: ENOXAPARIN 40 MG/0.4 ML (LOVENOX) SYR SC SCH (09:15)
[2021-09-06] MEDS: dexAMETHasone 6 MG TAB (DECADRON) PO SCH (09:15)
[2021-09-06] MEDS ORDERED: VITA-189 PO (11:37)
[2021-09-06] MEDS ORDERED: ATOR40TA PO (11:37)
[2021-09-06] MEDS ORDERED: ACHYD1T PO (11:37)
[2021-09-06] MEDS ORDERED: AMLO-250 PO (11:37)
[2021-09-06] MEDS ORDERED: LORA-404 PO (11:37)
[2021-09-06] MEDS ORDERED: DEXA6TAB PO (11:37)
--- NOTE | 2021-09-06 11:55 | Discharge Summary ---
Discharge Summary Hospital Course Was the Problem List Reviewed?: Yes Problems/Dx: (1) Pneumonia due to COVID-19 virus Status: Acute (2) ETOH abuse Status: Acute Hospital Course Date of Admission: Sep 01, 2021 at 23:55 Admission Diagnosis : Family Physician/Provider: [facility] Date of Discharge: 09/06/21 Discharge Diagnosis: Acute hypoxic respiratory failure, COVID-19 pneumonia, alcohol withdrawal, hypertension Hospital Course: Pt had a lengthy hospital course for 6 days after he was admitted for COVID-19 pneumonia with alcohol abuse and diarrhea. Pt did go through alcohol withdrawal. He completed his antibiotics and Decadron. He was needing additional 4 days at discharge. I did send all medications in including anti-hypertensives and recommended alcohol cessation. Labs and Pending Lab Test: Laboratory Tests 09/06/21 06:25: White Blood Count 4.9, Red Blood Count 3.93L, Hemoglobin 13.8, Hematocrit 41, Mean Corpuscular Volume 105H, Mean Corpuscular Hemoglobin 35H, Mean Corpuscular Hemoglobin Concent 33, Red Cell Distribution Width 13.8, Platelet Count 137, Mean Platelet Volume 9.0, Immature Granulocyte % (Auto) 1, Neutrophils (%) (Auto) 59, Lymphocytes (%) (Auto) 20, Monocytes (%) (Auto) 20H, Eosinophils (%) (Auto) 0, Basophils (%) (Auto) 0, Neutrophils # (Auto) 2.9, Lymphocytes # (Auto) 1.0, Monocytes # (Auto) 1.0, Eosinophils # (Auto) 0.0, Basophils # (Auto) 0.0, Immature Granulocyte # (Auto) 0.0, Sodium Level 135, Potassium Level 4.2, Chloride Level 99, Carbon Dioxide Level 24, Anion Gap 12, Blood Urea Nitrogen 18, Creatinine 0.67, Estimat Glomerular Filtration Rate 103, BUN/Creatinine Ratio 27, Glucose Level 107H, Calcium Level 8.9, Corrected Calcium 9.4, Total Bilirubin 0.4, Aspartate Amino Transf (AST/SGOT) 28, Alanine Aminotransferase (ALT/SGPT) 29, Alkaline Phosphatase 116, Total Protein 6.5, Albumin 3.4 Microbiology 09/01/21 Blood Culture - Preliminary, Resulted No growth 09/01/21 Urine Culture - Final, Complete Klebsiella aerogenes Home Meds Active Ativan (Lorazepam) 0.5 Mg Tablet 0.5 Mg PO TID PRN B Complex (Vitamin B Complex) 1 Each Tablet 1 Each PO DAILY Dexamethasone 6 Mg Tablet 6 Mg PO DAILY HYDROcodone/APAP 10/325 TABLET (Acetaminophen/Hydrocodone Bitart) 1 Ea Tab 1 Ea PO Q4H PRN Amlodipine Besylate 5 Mg Tablet 5 Mg PO DAILY Lipitor (Atorvastatin Calcium) 40 Mg Tablet 40 Mg PO HS Assessment/Pt Instructions PCP in 1 week Discharge Planning: <30 minutes discharge planning Discharge Instructions Discharge Diet: No Restrictions Activity as Tolerated: Yes Discharge Physical Examination Vital Signs Vital Signs Date Time Temp Pulse Resp B/P (MAP) Pulse Ox O2 Delivery O2 Flow Rate FiO2 09/06/21 08:49 Room Air 09/06/21 08:45 92 09/06/21 07:55 36.8 82 17 142/80 (100) 09/05/21 03:58 21 09/04/21 15:30 2.00 General Appearance: No Apparent Distress, WD/WN, Chronically ill Respiratory: Lungs Clear, Normal Breath Sounds Neurologic/Psychiatric: Alert, Oriented x3, No Motor/Sensory Deficits, Normal Mood/Affect Allergies: Coded Allergies: ibuprofen (Verified Allergy, Unknown, 04/05/15) HYPERTENSION tramadol (Verified Adverse Reaction, Unknown, VOMIT, 10/03/18) Discharge Summary Date of Admission Sep 01, 2021 at 23:55 Date of Discharge Discharge Date: Sep 06, 2021 Admission Diagnosis 1. Probable COVID-related pneumonia in addition to underlying urinary tract infection resulting in elevated procalcitonin level with sepsis. Lactic acid has returned to normal vital signs are stable so underlying sepsis criteria have resolved we will continue Rocephin and Decadron. Stable oxygenation requirement. 2. Delirium secondary to #1 as well as diphenhydramine as the patient was reportedly drinking a bottle of NyQuil daily for an unknown length of time. Agitation improving. 3. Alcohol use disorder underlying malnutrition continue IV thiamine replacement etc. in the form of banana bag for the next 3 days and then switch to oral replacement and monitor for evidence for withdrawal currently no evidence for. Discharge Diagnosis Assessment: 1. COVID-related pneumonia in addition to underlying urinary tract infection resulting in elevated procalcitonin level with sepsis. Lactic acid has returned to normal vital signs are stable so underlying sepsis criteria have resolved we will continue Rocephin and Decadron. Stable oxygenation requirement. 2. Delirium secondary to #1 as well as diphenhydramine as the patient was reportedly drinking a bottle of NyQuil daily for an unknown length of time. Agitation improving. 3. Alcohol use disorder underlying malnutrition continue IV thiamine replacement etc. in the form of banana bag for the next 3 days and then switch to oral replacement and monitor for evidence for withdrawal currently no evidence for. 4. Hypokalemia Plan: Replace potassium Monitor etoh withdrawal 09/04/2021: Blood pressure control Oxygen COVID protocol Alcohol withdrawal protocol 09/05/2021: Doing well from the COVID standpoint Supportive care for alcohol withdrawal Attempt to discharge tomorrow perhaps STALIN KISER DO Sep 06, 2021 11:55
== END 2021-09-06 13:14 | disposition home or self-care (01) | DRG 177 ==
LOC: EDUNIT# 22:04 → ER 22:07 → 4TH 23:55
PROVIDERS: ADMIT Internal Medicine; ATTEND Internal Medicine
DX: U07.1 COVID-19 (principal); J12.82 Pneumonia due to coronavirus disease 2019; J96.01 Acute respiratory failure with hypoxia; N39.0 Urinary tract infection, site not specified; F10.139 Alcohol abuse with withdrawal, unspecified; Z79.82 Long term (current) use of aspirin; Z79.899 Other long term (current) drug therapy; F17.210 Nicotine dependence, cigarettes, uncomplicated; I25.10 Atherosclerotic heart disease of native coronary artery without angina pectoris; E78.00 Pure hypercholesterolemia, unspecified; I10 Essential (primary) hypertension; K21.9 Gastro-esophageal reflux disease without esophagitis; M19.90 Unspecified osteoarthritis, unspecified site; G89.29 Other chronic pain; M54.9 Dorsalgia, unspecified; F41.9 Anxiety disorder, unspecified; F32.A Depression, unspecified; E87.6 Hypokalemia; R19.7 Diarrhea, unspecified
CPT/HCPCS: 36415; 51702; 71045; 80048; 80053; 80306; 80320; 80329; 81000; 83605; 83735; 84145; 85025; 85379; 85610; 85730; 86141; 87040; 87077; 87088; 87186; 87636; 94640; 94760; 94761; 96361; 96365; 96375

== ENCOUNTER 2021-10-28 19:21 | Emergency (ER) | payer MEDICARE ==
[~2021-10-28] VITALS: Ht 167 cm; Wt 58.9 kg
[~2021-10-28 19:21] MED LIST changes: +ACHYD1T PO; +AMLO-250 PO; +ATOR40TA PO; +DEXA6TAB PO; +LORA-404 PO; +VITA-189 PO
--- NOTE | 2021-10-28 19:29 | ED General ---
General Stated Complaint: N/V/D Source of Information: Patient Exam Limitations: No Limitations History of Present Illness Date Seen by Provider: Oct 28, 2021 Time Seen by Provider: 19:28 Initial Comments To ER by EMS from home with reports of nausea vomiting diarrhea for 2 weeks. He is not called a primary care provider about this because he states he does not have one. He is well-known to the emergency room. Timing/Duration: 1-2 Days Severity: Moderate Associated Systoms: Nausea/Vomiting Allergies and Home Medications Allergies Coded Allergies: ibuprofen (Verified Allergy, Unknown, 04/05/15) HYPERTENSION tramadol (Verified Adverse Reaction, Unknown, VOMIT, 10/03/18) Patient Home Medication List Home Medication List Reviewed: Yes Amlodipine Besylate (Amlodipine Besylate) 5 Mg Tablet, 5 MG PO DAILY Prescribed by: STALIN KISER on 09/06/21 113 Atorvastatin Calcium (Lipitor) 40 Mg Tablet, 40 MG PO HS Prescribed by: STALIN KISER on 09/06/21 113 Dexamethasone (Dexamethasone) 6 Mg Tablet, 6 MG PO DAILY Prescribed by: STALIN KISER on 09/06/21 113 Hydrocodone Bit/Acetaminophen (HYDROcodone/APAP 10/325 TABLET) 1 Ea Tab, 1 EA PO Q4H PRN for PAIN-MODERATE (5-7) Prescribed by: STALIN KISER on 09/06/21 113 Loperamide HCl (Imodium A-D) 2 Mg Tablet, 2 MG PO TID Prescribed by: ALBA ROSA on 10/28/212009 Lorazepam (Ativan) 0.5 Mg Tablet, 0.5 MG PO TID PRN for ANXIETY Prescribed by: STALIN KISER on 09/06/21 113 Ondansetron (Ondansetron Odt) 8 Mg Tab.rapdis, 8 MG PO Q6H PRN for NAUSEA/V OMITING Prescribed by: ALBA ROSA on 10/28/212009 Potassium Chloride (Potassium Chloride) 20 Meq Tablet.er, 20 MEQ PO BID Prescribed by: ALBA ROSA on 10/28/212009 Vitamin B Complex (B Complex) 1 Each Tablet, 1 EACH PO DAILY Prescribed by: STALIN KISER on 09/06/21 113 Review of Systems Review of Systems Constitutional: see HPI EENTM: see HPI Respiratory: no symptoms reported Cardiovascular: no symptoms reported Genitourinary: no symptoms reported Musculoskeletal: no symptoms reported Past Jnzezlv-Rcwije-Sojoty Hx Immunizations Up To Date Tetanus Booster (TDap): Less than 5yrs PED Vaccines UTD: Yes First/Initial COVID19 Vaccinat: 03/2021 Second COVID19 Vaccination Jl: 04/2021 Seasonal Allergies Seasonal Allergies: No Past Medical History Surgery/Hospitalization HX: CERVICAL SPINE SURGERY X 3 LUMBAR SPINE SURGERY X 3 CHOLECYSTECTOMY APPENDECTOMY SKIN CANCERS/LESIONS REMOVED FROM LIPS, EARS, HANDS BMT'S EGD'S WITH ESOPHAGEAL DILATIONS Surgeries: Yes Appendectomy, Ear Surgery, Gallbladder, Orthopedic Respiratory: Yes Chronic Bronchitis Currently Using CPAP: No Currently Using BIPAP: No Cardiac: Yes Coronary Artery Disease, High Cholesterol, Hypertension, Syncope Neurological: Yes (TIA 01/2021) TIA Reproductive Disorders: No Sexually Transmitted Disease: No HIV/AIDS: No Genitourinary: No Gastrointestinal: Yes (ESOPAGEAL STRICTURE/DILATIONS) Gastroesophageal Reflux Musculoskeletal: Yes (chronic left shoulder pain;CHRONIC NECK/BACK PAIN ) Degenerate Disk Disease, Arthritis, Chronic Back Pain Endocrine: No HEENT: Yes (POOR DENTITION; BMT'S ) Chronic Ear Infection Hearing Impairment: Hard of Hearing Cancer: Yes Skin Did You Recieve Any Treatments: Yes What Type of Treatment Did You: Surgical Intervention Psychosocial: Yes Anxiety, Suicide Attempts, Depression Integumentary: No Blood Disorders: No Adverse Reaction/Blood Tranf: No (N/A) Family Medical History Cancer 03 FATHER (PROSTATE) 03 MOTHER (BREAST CA ) 09 BROTHER (THROAT/PANCREATIC) 09 SISTER (LIVER) DEAFNESS 03 FATHER 09 BROTHER Family history: Breast disease 03 MOTHER (BREAST CA) History of - respiratory disease Prostate cancer 03 FATHER Stroke 03 MOTHER Visual impairment No Pertinent Family Hx Physical Exam Vital Signs Vital Signs - First Documented 10/28/21 19:23 Temp 36.3 Pulse 87 Resp 18 B/P (MAP) 140/90 (107) Pulse Ox 97 O2 Delivery Room Air Capillary Refill : Height, Weight, BMI Height: 5'6.00" Weight: 130lbs. 2.0oz. 59.489607kv; 22.65 BMI Method:Stated General Appearance: No Apparent Distress, WD/WN, Chronically ill Eyes: Bilateral Eye Normal Inspection, Bilateral Eye PERRL, Bilateral Eye EOMI Neck: Full Range of Motion, Normal Inspection Respiratory: Normal Breath Sounds, No Accessory Muscle Use, No Respiratory Distress Cardiovascular: Regular Rate, Rhythm, Normal Peripheral Pulses Gastrointestinal: Normal Bowel Sounds, Non Tender, Soft Extremity: Normal Capillary Refill, No Calf Tenderness Neurologic/Psychiatric: Alert, Oriented x3 Skin: Normal Color, Warm/Dry Progress/Results/Core Measures Suspected Sepsis SIRS Temperature: Pulse: Respiratory Rate: Laboratory Tests 10/28/21 19:28: White Blood Count 4.4 Blood Pressure / Mean: Laboratory Tests 10/28/21 19:28: Creatinine 0.75, Platelet Count 188, Total Bilirubin 0.8 Results/Orders Lab Results Laboratory Tests Test 10/28/21 19:28 10/28/21 21:36 Range/Units White Blood Count 4.4 4.3-11.0 10^3/uL Red Blood Count 4.67 4.30-5.52 10^6/uL Hemoglobin 15.7 13.3-17.7 g/dL Hematocrit 47 40-54 % Mean Corpuscular Volume 100 H 80-99 fL Mean Corpuscular Hemoglobin 34 25-34 pg Mean Corpuscular Hemoglobin Concent 34 32-36 g/dL Red Cell Distribution Width 12.8 10.0-14.5 % Platelet Count 188 130-400 10^3/uL Mean Platelet Volume 8.7 L 9.0-12.2 fL Immature Granulocyte % (Auto) 1 % Neutrophils (%) (Auto) 59 42-75 % Lymphocytes (%) (Auto) 27 12-44 % Monocytes (%) (Auto) 11 0-12 % Eosinophils (%) (Auto) 1 0-10 % Basophils (%) (Auto) 1 0-10 % Neutrophils # (Auto) 2.6 1.8-7.8 10^3/uL Lymphocytes # (Auto) 1.2 1.0-4.0 10^3/uL Monocytes # (Auto) 0.5 0.0-1.0 10^3/uL Eosinophils # (Auto) 0.1 0.0-0.3 10^3/uL Basophils # (Auto) 0.0 0.0-0.1 10^3/uL Immature Granulocyte # (Auto) 0.0 0.0-0.1 10^3/uL Sodium Level 139 135-145 MMOL/L Potassium Level 2.7 L 3.6-5.0 MMOL/L Chloride Level 99 98-107 MMOL/L Carbon Dioxide Level 26 21-32 MMOL/L Anion Gap 14 5-14 MMOL/L Blood Urea Nitrogen 7 7-18 MG/DL Creatinine 0.75 0.60-1.30 MG/DL Estimat Glomerular Filtration Rate 100 BUN/Creatinine Ratio 9 Glucose Level 112 H 70-105 MG/DL Calcium Level 8.6 8.5-10.1 MG/DL Corrected Calcium 9.2 8.5-10.1 MG/DL Total Bilirubin 0.8 0.1-1.0 MG/DL Aspartate Amino Transf (AST/SGOT) 20 5-34 U/L Alanine Aminotransferase (ALT/SGPT) 13 0-55 U/L Alkaline Phosphatase 128 40-136 U/L Total Protein 6.6 6.4-8.2 GM/DL Albumin 3.2 3.2-4.5 GM/DL Lipase 159 H 8-78 U/L Urine Color YELLOW Urine Clarity SL CLOUDY Urine pH 6.0 5-9 Urine Specific [place] <=1.005 1.016-1.022 Urine Protein NEGATIVE NEGATIVE Urine Glucose (UA) NEGATIVE NEGATIVE Urine Ketones NEGATIVE NEGATIVE Urine Nitrite NEGATIVE NEGATIVE Urine Bilirubin NEGATIVE NEGATIVE Urine Urobilinogen 0.2 < = 1.0 MG/DL Urine Leukocyte Esterase 2+ H NEGATIVE Urine RBC (Auto) TRACE-I H NEGATIVE Urine RBC 2-5 H /HPF Urine WBC 25-50 H /HPF Urine Crystals PRESENT H /LPF Urine Amorphous Sediment FEW [place] URATES H /LPF Urine Bacteria LARGE H /HPF Urine Casts NONE /LPF Urine Mucus NEGATIVE /LPF Urine Culture Indicated YES Urine Opiates Screen NEGATIVE NEGATIVE Urine Oxycodone Screen NEGATIVE NEGATIVE Urine Methadone Screen NEGATIVE NEGATIVE Urine Propoxyphene Screen NEGATIVE NEGATIVE Urine Barbiturates Screen NEGATIVE NEGATIVE Ur Tricyclic Antidepressants Screen NEGATIVE NEGATIVE Urine Phencyclidine Screen NEGATIVE NEGATIVE Urine Amphetamines Screen NEGATIVE NEGATIVE Urine Methamphetamines Screen NEGATIVE NEGATIVE Urine Benzodiazepines Screen NEGATIVE NEGATIVE Urine Cocaine Screen NEGATIVE NEGATIVE Urine Cannabinoids Screen NEGATIVE NEGATIVE Micro Results Microbiology 10/28/21 Urine Culture - Preliminary, Resulted Gram Negative James My Orders Orders - ALBA ROSA [employer] Cbc With Automated Diff (10/28/21 19:27) Comprehensive Metabolic Panel (10/28/21 19:27) Ua Culture If Indicated (10/28/21 19:27) Lipase (10/28/21 19:27) Ed Iv/Invasive Line Start (10/28/21 19:27) Drug Screen Stat (Urine) (10/28/21 19:27) Lactated Ringers (Lr 1000 Ml Iv Solution (10/28/21 19:30) Promethazine Injection (Phenergan Injec (10/28/21 19:30) Potassium Cl 10meq/50ml Ivpb (Kcl 10 Meq (10/28/21 20:15) Potassium Chloride (Tablet) (K Dur Table (10/28/21 20:15) Ns Iv 500 Ml (Sodium Chloride 0.9%) (10/28/21 20:15) Loperamide Tablet (Imodium Tablet) (10/28/21 20:15) Urine Culture (10/28/21 21:36) Medications Given in ED Vital Signs/I&O 10/28/21 10/28/21 19:23 21:56 Temp 36.3 36.5 Pulse 87 73 Resp 18 16 B/P (MAP) 140/90 (107) 156/90 Pulse Ox 97 98 O2 Delivery Room Air Room Air Capillary Refill : Departure Impression Primary Impression: Nausea & vomiting Additional Impressions: Diarrhea Hypokalemia Disposition: 01 HOME, SELF-CARE Condition: Stable Departure-Patient Inst. Decision time for Depature: 20:08 Referrals: [facility] (PCP/Family) Primary Care Physician Patient Instructions: Nausea and Vomiting, Adult Add. Discharge Instructions: 1. Call critical access hospital to make an appointment to be seen. Medication as directed. Scripts Potassium Chloride (Potassium Chloride) 20 Meq Tablet.er 20 MEQ PO BID, #8 TAB Prov: ALBA ROSA APRN 10/28/21 Loperamide HCl (Imodium A-D) 2 Mg Tablet 2 MG PO TID, #10 TAB Prov: ALBA ROSA APRN 10/28/21 Ondansetron (Ondansetron Odt) 8 Mg Tab.rapdis 8 MG PO Q6H PRN for NAUSEA/VOMITING, #14 TAB Prov: ALBA ROSA APRN 10/28/21 ALBA ROSA APRN Oct 28, 2021 19:29
[2021-10-28] MEDS ORDERED: PROMETHAZINE INJ 25 MG/ML (PHENERGAN) AMP IVP ONE (19:30)
[2021-10-28] MEDS ORDERED: LACTATED RINGERS 1,000 ML IV SCH (19:30)
[2021-10-28 19:37] LABS: BASOPHILS % (AUTO) 1 % (0-10); EOSINOPHILS # (AUTO) 0.1 10^3/uL (0.0-0.3); EOSINOPHILS % (AUTO) 1 % (0-10); HEMATOCRIT 47 % (40-54); HEMOGLOBIN 15.7 g/dL (13.3-17.7); LYMPHOCYTES # (AUTO) 1.2 10^3/uL (1.0-4.0); LYMPHOCYTES % (AUTO) 27 % (12-44); MEAN CORPUSCULAR HEMOGLOBIN 34 pg (25-34); MEAN CORPUSCULAR HGB CONC 34 g/dL (32-36); MEAN CORPUSCULAR VOLUME 100 fL (80-99); MEAN PLATELET VOLUME 8.7 fL (9.0-12.2); MONOCYTES # (AUTO) 0.5 10^3/uL (0.0-1.0); MONOCYTES % (AUTO) 11 % (0-12); NEUTROPHILS # (AUTO) 2.6 10^3/uL (1.8-7.8); NEUTROPHILS % (AUTO) 59 % (42-75); PLATELET COUNT 188 10^3/uL (130-400); WHITE BLOOD COUNT 4.4 10^3/uL (4.3-11.0)
[2021-10-28 19:50] LABS: ALBUMIN 3.2 GM/DL (3.2-4.5); BILIRUBIN,TOTAL 0.8 MG/DL (0.1-1.0); CALCIUM 8.6 MG/DL (8.5-10.1); CREATININE SERUM 0.75 MG/DL (0.60-1.30); POTASSIUM 2.7 MMOL/L (3.6-5.0); TOTAL PROTEIN 6.6 GM/DL (6.4-8.2)
[2021-10-28] MEDS ORDERED: ONDA8TAB13 PO (20:10)
[2021-10-28] MEDS ORDERED: POTA-51 PO (20:10)
[2021-10-28] MEDS ORDERED: LOPE-134 PO (20:10)
[2021-10-28] MEDS ORDERED: POTASSIUM CL 10MEQ/50ML IVPB 50 ML IV ONE (20:15)
[2021-10-28] MEDS ORDERED: KCL 20 MEQ TAB (K-DUR) PO ONE (20:15)
[2021-10-28] MEDS ORDERED: NS IV 500 ML 500 ML IV SCH (20:15)
[2021-10-28] MEDS ORDERED: LOPERAMIDE 2 MG (IMODIUM) TABLET PO ONE (20:15)
[2021-10-28 21:44] LABS: BILIRUBIN,URINE NEGATIVE (NEGATIVE); CLARITY,URINE SL CLOUDY; COLOR,URINE YELLOW; GLUCOSE, URINE (UA) NEGATIVE (NEGATIVE); KETONES,URINE NEGATIVE (NEGATIVE); LEUKOCYTE ESTERASE ,URINE 2+ (NEGATIVE); NITRITE,URINE NEGATIVE (NEGATIVE); PROTEIN,URINE NEGATIVE (NEGATIVE)
[2021-10-28 21:56] VITALS: BP 156/90
[2021-10-28 22:20] LABS: AMORPHOUS SEDIMENT,UR FEW AMOR URATES /LPF; BACTERIA,URINE LARGE /HPF; WBC,URINE 25-50 /HPF
[2021-10-28 22:30] LABS: AMPHETAMINE SCREEN, URINE NEGATIVE (NEGATIVE); BARBITURATE SCREEN URINE NEGATIVE (NEGATIVE); BENZODIAZEPINES SCREEN URINE NEGATIVE (NEGATIVE); CANNABINOID SCREEN, URINE NEGATIVE (NEGATIVE); COCAINE SCREEN URINE NEGATIVE (NEGATIVE); METHADONE STAT NEGATIVE (NEGATIVE); METHAMPHETAMINE SCREEN URINE S NEGATIVE (NEGATIVE); OPIATE SCREEN URINE NEGATIVE (NEGATIVE); OXYCODONE STAT NEGATIVE (NEGATIVE); PROPOXYPHENE STAT NEGATIVE (NEGATIVE); TRICYCLIC ANTIDEPRESSANTS SCRE NEGATIVE (NEGATIVE)
== END 2021-10-28 21:58 | disposition home or self-care (01) ==
LOC: EDUNIT# 19:21 → ER 19:22
DX: R11.2 Nausea with vomiting, unspecified (principal); R19.7 Diarrhea, unspecified; E87.6 Hypokalemia
CPT/HCPCS: 36415; 80053; 80306; 81000; 83690; 85025; 87088

== ENCOUNTER 2021-11-04 02:42 | Inpatient (IN) | payer MEDICARE ==
[~2021-11-04] VITALS: Ht 167 cm; Wt 59.0 kg
[~2021-11-04 02:42] MED LIST changes: +LOPE-134 PO; +ONDA8TAB13 PO; +POTA-51 PO
[2021-11-04 03:09] LABS: BASOPHILS % (AUTO) 0 % (0-10); EOSINOPHILS % (AUTO) 0 % (0-10); HEMATOCRIT 44 % (40-54); HEMOGLOBIN 14.8 g/dL (13.3-17.7); LYMPHOCYTES # (AUTO) 0.7 10^3/uL (1.0-4.0); LYMPHOCYTES % (AUTO) 4 % (12-44); MEAN CORPUSCULAR HEMOGLOBIN 34 pg (25-34); MEAN CORPUSCULAR HGB CONC 34 g/dL (32-36); MEAN CORPUSCULAR VOLUME 101 fL (80-99); MEAN PLATELET VOLUME 9.3 fL (9.0-12.2); MONOCYTES # (AUTO) 1.2 10^3/uL (0.0-1.0); MONOCYTES % (AUTO) 7 % (0-12); NEUTROPHILS # (AUTO) 14.6 10^3/uL (1.8-7.8); NEUTROPHILS % (AUTO) 88 % (42-75); PLATELET COUNT 252 10^3/uL (130-400); WHITE BLOOD COUNT 16.5 10^3/uL (4.3-11.0)
[2021-11-04 03:13] LABS: ALBUMIN 3.4 GM/DL (3.2-4.5); POTASSIUM 2.7 MMOL/L (3.6-5.0)
[2021-11-04] MEDS ORDERED: LORazepam INJ 2 MG/ML (ATIVAN) VIAL IVP ONE ×2 (03:15→07:30)
[2021-11-04 03:16] LABS: TOTAL PROTEIN 6.5 GM/DL (6.4-8.2)
[2021-11-04 03:17] LABS: INR 1.1 (0.8-1.4); PROTHROMBIN TIME PATIENT 14.3 SEC (12.2-14.7)
[2021-11-04 03:19] LABS: CREATININE SERUM 1.16 MG/DL (0.60-1.30)
[2021-11-04 03:22] LABS: MAGNESIUM 1.4 MG/DL (1.6-2.4)
[2021-11-04 03:29] LABS: LYMPHOCYTES % (MANUAL) 3 %; MONOCYTES % (MANUAL) 9 %; NEUTROPHILS % (MANUAL) 88 %; RBC MORPH NORMAL
[2021-11-04 03:31] LABS: CREATINE KINASE MB 0.8 NG/ML (<6.6)
--- NOTE | 2021-11-04 03:57 | ED Chest Pain ---
General Chief Complaint: Chest Pain Stated Complaint: CHEST PAIN Nursing Triage Note: Patient presented to the ER tonight via EMS with complaints of heavy, sharp chest pain for approx. 4-5 hours, patient states pain radiates to his back. Rating pain 8/10 improved to a 5/10 post nitro, fentanyl adm Source: patient (VERY LIMITED AND POOR HISTORIAN. ), EMS, old records (ALL PMH IS FROM OLD RECORDS) History of Present Illness Date Seen by Provider: Nov 04, 2021 Time Seen by Provider: 02:45 Initial Comments PT ARRIVES VIA EMS FROM HOME PT WALKED OUT TO AMBULANCE ON HIS OWN AT THE SCENE. PT WANTING WATER HE IS BEING WHEELED IN TO ER PT C/O MID CHEST PAIN AND SHORTNESS OF BREATH X 4-5 HOURS PAIN RADIATES INTO HIS BACK PT HAD NAUSEA AND VOMITED AT HOME NO ABDOMINAL PAIN NO COUGH EMS GAVE 4 BABY ASPIRIN PT RATED CHEST PAIN 8/10 AT HOME, EMS GAVE NTG X 1, WITH DROP IN BP FROM 166 SYSTOLIC TO 114 SYSTOLIC, AND PAIN DOWN TO 6/10 EMS THEN GAVE FENTANYL 50 MCG AND PT STATES PAIN IS BETTER ON ARRIVAL, AND NAUSEA IS BETTER ON ARRIVAL, PT STATES HE HAS NO MEDICAL PROBLEMS,TAKES NO MEDICATIONS, HAS NOT HAD ANY SURGERIES, HAS NOT SEEN A DR IN "20 YEARS" CLAIMS HE SMOKES, BUT CLAIMS HE HAS NEVER DRANK ALCOHOL IN HIS LIFE AND NEVER USED DRUGS IN HIS LIFE. HOWEVER ON REVIEW OF OLD CHARTS, PT HAS HAD MULTIPLE VISITS HERE AND ADMITS FOR VARIOUS COMPLAINTS PT WAS JUST HERE IN ER 10/28/21 FOR COMPLAINT OF NAUSEA/VOMITING/DIARRHEA AND WAS GIVEN RX'S FOR ZOFRAN, KCL, AND IMMODIUM PT WAS ADMITTED HERE 09/01/21-09/07/21 FOR COVID-19 PNEUMONIA AND ALCOHOL ABUSE AND HAD ALCOHOL WITHDRAWL SYMPTOMS WHILE HOSPITALIZED. PT HAS ALSO HAD MULTIPLE SURGERIES INCLUDING BACK SURGERY X 3, APPENDECTOMY, CHOLECYSTECTOMY AND ROTATOR CUFF SURGERY. PT HAS LONG HISTORY OF DRUG ABUSE WELL, INCLUDING METHAMPHETAMINES. Allergies and Home Medications Allergies Coded Allergies: ibuprofen (Verified Adverse Reaction, Unknown, Hypertension, pt has rec ASA in the past, 11/05/21) HYPERTENSION tramadol (Verified Adverse Reaction, Unknown, VOMIT, 10/03/18) Patient Home Medication List Home Medication List Reviewed: Yes No Active Prescriptions or Reported Meds Review of Systems Review of Systems Constitutional: no symptoms reported Respiratory: See HPI Cardiovascular: See HPI Gastrointestinal: See HPI Psychiatric/Neurological: Anxiety Past Fbltlam-Pwbahd-Bhtqvi Hx Patient Social History Tobacco Use?: Yes Tobacco type used: Cigarettes Smoking Status: Current Everyday Smoker Substance use?: Yes Alcohol Use?: Yes Immunizations Up To Date Tetanus Booster (TDap): Less than 5yrs PED Vaccines UTD: Yes First/Initial COVID19 Vaccinat: 09/2021 Second COVID19 Vaccination Jl: 09/2021 Third COVID19 Vaccination Date: 09/2021 Seasonal Allergies Seasonal Allergies: No Past Medical History Surgery/Hospitalization HX: BACK X 3, ROTATOR CUFF X 3, APPENDIX, GALLBLADDER Surgeries: Yes Appendectomy, Ear Surgery, Gallbladder, Orthopedic Respiratory: Yes (COVID PNEUMONIA 08/2021) Chronic Bronchitis Currently Using CPAP: No Currently Using BIPAP: No Cardiac: Yes Coronary Artery Disease, High Cholesterol, Hypertension, Syncope Neurological: Yes (TIA 01/2021; RESTLESS LEG SYNDROME) TIA Reproductive Disorders: No Sexually Transmitted Disease: No HIV/AIDS: No Genitourinary: No Gastrointestinal: Yes (ESOPHAGEAL STRICTURES/DILATIONS) Gastroesophageal Reflux Musculoskeletal: Yes (CHRONIC LEFT SHOULDER PAIN;CHRONIC NECK/BACK PAIN ) Degenerate Disk Disease, Arthritis, Chronic Back Pain Endocrine: No HEENT: Yes (POOR DENTITION; BMT'S;CHRONIC DYSPHAGIA AND HOARSENESS ) Dysphagia, Chronic Ear Infection Hearing Impairment: Hard of Hearing Cancer: Yes Skin Did You Recieve Any Treatments: Yes What Type of Treatment Did You: Surgical Intervention Psychosocial: Yes (POLYSUBSTANCE ABUSE AND OVERDOSES) Anxiety, Suicide Attempts, Depression Integumentary: No Blood Disorders: No Adverse Reaction/Blood Tranf: No (N/A) Family Medical History Cancer 03 FATHER (PROSTATE) 03 MOTHER (BREAST CA ) 09 BROTHER (THROAT/PANCREATIC) 09 SISTER (LIVER) DEAFNESS 03 FATHER 09 BROTHER Family history: Breast disease 03 MOTHER (BREAST CA) History of - respiratory disease Prostate cancer 03 FATHER Stroke 03 MOTHER Visual impairment No Pertinent Family Hx LONG HISTORY OF EXTREME NON-COMPLIANCE IN ALL ASPECTS OF CARE SOCIAL HISTORY: -SMOKES 2-3 PPD -ETOH--ABUSE/DAILY USE--ALSO DRINKS LARGE AMOUNTS OF NYQUIL DAILY -DRUGS-EXTENSIVE POLYSUBSTANCE ABUSE AND OVERDOSES--ESPECIALLY XANAX/BENZODIAZEPINES AND NARCOTICS/OPIATES; METHAMPHETAMINES -HAS HAD A MULTITUDE OF ACCIDENTS DUE TO SUBSTANCE ABUSE, HISTORY OF GETTING MULTIPLE RX'S FROM MULTIPROVIDERS USING MULTIPLE PHARMACIES; -HAS BEEN EVICTED FROM MULTIPLE REHAB /SUBSTANCE ABUSE TREATMENT FACILITIES, INCLUDING [facility], FOR EXTREME NON-COMPLIANCE. 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 2.0oz. 59.026885mn; 21.00 BMI Method:Stated General Appearance: Anxious, Thin, Other (VERY ANXIOUS AND VERY TREMULOUS. VERY HARD OF HEARING. PT IS DIRTY, VERY UNKEMPT AND REEKS OF CIGARETTES. 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 Norm as Tested Skin: Normal Color, Warm/Dry; No Rash Progress/Results/Core Measures Results/Orders Lab Results Laboratory Tests Test 11/04/21 02:46 11/04/21 06:28 Range/Units White Blood Count 16.5 H 4.3-11.0 10^3/uL Red Blood Count 4.37 4.30-5.52 10^6/uL Hemoglobin 14.8 13.3-17.7 g/dL Hematocrit 44 40-54 % Mean Corpuscular Volume 101 H 80-99 fL Mean Corpuscular Hemoglobin 34 25-34 pg Mean Corpuscular Hemoglobin Concent 34 32-36 g/dL Red Cell Distribution Width 13.0 10.0-14.5 % Platelet Count 252 130-400 10^3/uL Mean Platelet Volume 9.3 9.0-12.2 fL Immature Granulocyte % (Auto) 0 % Neutrophils (%) (Auto) 88 H 42-75 % Lymphocytes (%) (Auto) 4 L 12-44 % Monocytes (%) (Auto) 7 0-12 % Eosinophils (%) (Auto) 0 0-10 % Basophils (%) (Auto) 0 0-10 % Neutrophils # (Auto) 14.6 H 1.8-7.8 10^3/uL Lymphocytes # (Auto) 0.7 L 1.0-4.0 10^3/uL Monocytes # (Auto) 1.2 H 0.0-1.0 10^3/uL Eosinophils # (Auto) 0.0 0.0-0.3 10^3/uL Basophils # (Auto) 0.0 0.0-0.1 10^3/uL Immature Granulocyte # (Auto) 0.1 0.0-0.1 10^3/uL Neutrophils % (Manual) 88 % Lymphocytes % (Manual) 3 % Monocytes % (Manual) 9 % Blood Morphology Comment NORMAL Prothrombin Time 14.3 12.2-14.7 SEC INR Comment 1.1 0.8-1.4 Activated Partial Thromboplast Time 31 24-35 SEC D-Dimer 2.09 H 0.00-0.49 UG/ML Sodium Level 137 135-145 MMOL/L Potassium Level 2.7 L 3.6-5.0 MMOL/L Chloride Level 97 L 98-107 MMOL/L Carbon Dioxide Level 13 L 21-32 MMOL/L Anion Gap 27 H 5-14 MMOL/L Blood Urea Nitrogen 13 7-18 MG/DL Creatinine 1.16 0.60-1.30 MG/DL Estimat Glomerular Filtration Rate 69 BUN/Creatinine Ratio 11 Glucose Level 234 H 70-105 MG/DL Calcium Level 9.0 8.5-10.1 MG/DL Corrected Calcium 9.5 8.5-10.1 MG/DL Magnesium Level 1.4 L 1.6-2.4 MG/DL Total Bilirubin 1.0 0.1-1.0 MG/DL Aspartate Amino Transf (AST/SGOT) 18 5-34 U/L Alanine Aminotransferase (ALT/SGPT) 12 0-55 U/L Alkaline Phosphatase 127 40-136 U/L Total Creatine Kinase 109 30-200 U/L Creatine Kinase MB 0.8 <6.6 NG/ML Myoglobin 55.5 10.0-92.0 NG/ML Troponin I < 0.028 <0.028 NG/ML B-Type Natriuretic Peptide 17.1 <100.0 PG/ML Total Protein 6.5 6.4-8.2 GM/DL Albumin 3.4 3.2-4.5 GM/DL Amylase Level 117 25-125 U/L Lipase 744 H 8-78 U/L Serum Alcohol < 10 <10 MG/DL Influenza Type A (RT-PCR) Not Detected Not Detecte Influenza Type B (RT-PCR) Not Detected Not Detecte SARS-CoV-2 RNA (RT-PCR) Not Detected Not Detecte Urine Color YELLOW Urine Clarity SL CLOUDY Urine pH 6.0 5-9 Urine Specific [place] 1.020 1.016-1.022 Urine Protein 1+ H NEGATIVE Urine Glucose (UA) 1+ H NEGATIVE Urine Ketones NEGATIVE NEGATIVE Urine Nitrite POSITIVE H NEGATIVE Urine Bilirubin NEGATIVE NEGATIVE Urine Urobilinogen 0.2 < = 1.0 MG/DL Urine Leukocyte Esterase 1+ H NEGATIVE Urine RBC (Auto) TRACE-I H NEGATIVE Urine RBC 2-5 H /HPF Urine WBC 25-50 H /HPF Urine Crystals NONE /LPF Urine Bacteria FEW H /HPF Urine Casts NONE /LPF Urine Mucus NEGATIVE /LPF Urine Culture Indicated YES Urine Opiates Screen NEGATIVE NEGATIVE Urine Oxycodone Screen NEGATIVE NEGATIVE Urine Methadone Screen NEGATIVE NEGATIVE Urine Propoxyphene Screen NEGATIVE NEGATIVE Urine Barbiturates Screen NEGATIVE NEGATIVE Ur Tricyclic Antidepressants Screen NEGATIVE NEGATIVE Urine Phencyclidine Screen NEGATIVE NEGATIVE Urine Amphetamines Screen NEGATIVE NEGATIVE Urine Methamphetamines Screen NEGATIVE NEGATIVE Urine Benzodiazepines Screen NEGATIVE NEGATIVE Urine Cocaine Screen NEGATIVE NEGATIVE Urine Cannabinoids Screen NEGATIVE NEGATIVE Micro Results Microbiology 11/04/21 Urine Culture - Final, Complete Klebsiella aerogenes My Orders Orders - TIMI MATTSON DO Cbc With Automated Diff (11/04/21 02:59) Magnesium (11/04/21 02:59) Chest 1 View, Ap/Pa Only (11/04/21 02:59) Ekg Tracing (11/04/21 02:59) Comprehensive Metabolic Panel (11/04/21 02:59) Myoglobin Serum (11/04/21 02:59) Protime With Inr (11/04/21 02:59) Partial Thromboplastin Time (11/04/21 02:59) O2 (11/04/21 02:59) Monitor-Rhythm Ecg Trace Only (11/04/21 02:59) Ed Iv/Invasive Line Start (11/04/21 02:59) Creatine Kinase (11/04/21 02:59) Creatine Kinase Mb (11/04/21 02:59) Lipase (11/04/21 02:59) Amylase (11/04/21 02:59) Bnp [place] (11/04/21 02:59) Fibrin Degradation Products (11/04/21 02:59) Troponin I [place] (11/04/21 02:59) Covid 19 Inhouse Test (11/04/21 02:59) Influenza A And B By Pcr (11/04/21 02:59) Isolation Central Supply Req (11/04/21 02:59) Alcohol (11/04/21 03:02) Drug Screen Stat (Urine) (11/04/21 03:02) Ua Culture If Indicated (11/04/21 03:02) Lorazepam Injection (Ativan Injection) (11/04/21 03:15) Manual Differential (11/04/21 02:46) Ct Mylene Chest/Noang Abd-Pelv W (11/04/21 03:39) Ed Iv/Invasive Line Start (11/04/21 03:49) Lactated Ringers (Lr 1000 Ml Iv Solution (11/04/21 04:00) Magnesium 1 Gm/100 Ml Ivpb (Magnesium [place] (11/04/21 04:15) Iohexol Injection (Omnipaque 350 Mg/Ml 1 (11/04/21 06:00) Received Contrast (Hold Metformin- Contr (11/04/21 06:00) Ns (Ivpb) (Sodium Chloride 0.9% Ivpb Bag (11/04/21 06:00) Ed Iv/Invasive Line Start (11/04/21 05:48) Ns Iv 1000 Ml (Sodium Chloride 0.9%) (11/04/21 06:00) Catheter(Urinary) Insert & Ass 03,15 (11/04/21 05:48) Urine Culture (11/04/21 06:28) Medications Given in ED Vital Signs/I&O 11/04/21 11/04/21 02:45 02:47 Temp 36.5 Pulse 113 Resp 18 B/P (MAP) 136/100 (112) Pulse Ox 97 98 O2 Delivery Room Air Room Air Blood Pressure Mean: 112 Progress Progress Note : Progress Note NO COMPLAINTS FOR ENTIRE ER STAY. PT DENIES CHEST PAIN OR SHORTNESS OF BREATH FOR REMAINDER OF ER STAY GIVEN ATIVAN FOR ANXIETY AND TREMORS WITH IMPROVEMENT UNEVENTFUL ER STAY Initial ECG Impression Date: Nov 04, 2021 Initial ECG Impression Time: 02:47 Initial ECG Rate: 109 Initial ECG Rhythm: S.Tach Diagnostic Imaging Comments CXR--NO ACUTE PROCESS, PENDING RADIOLOGIST REVIEW CT ANGIO CHEST/ABDOMEN AND PELVIS--NO P.E., CHRONIC EMPHYSEMATOUS CHANGES. + ACUTE PANCREATITIS. URINARY BLADDER WALL THICKENING. PER [facility] VIA FAX AT [phone] Reviewed: Reviewed by Me Departure Communication (Admissions) 0607--SPOKE WITH DR. KISER, HOSPITALIST FOR [facility]. ACCEPTS PT FOR ADMIT. SHE WILL DO ADMIT ORDERS. WOULD LIKE DR. BRADY AND DR. ARVIZU CONSULTED. 0610--SPOKE WITH DR. BRADY FOR SURGICAL CONSULT 0612--SPOKE WITH DR. ARVIZU FOR CARDIOLOGY CONSULT. Impression Primary Impression: Pancreatitis Additional Impressions: Alcoholism Chest pain Hyperglycemia Hypokalemia Hypomagnesemia Urinary tract infection Disposition: ADMITTED INPATIENT Condition: Improved Admissions Decision to Admit Reason: Admit from ER (General) Decision to Admit/Date: Nov 04, 2021 Time/Decision to Admit Time: 06:10 Departure-Patient Inst. Referrals: [facility] (PCP/Family) Primary Care Physician Scripts No Active Prescriptions or Reported Meds TIMI MATTSON DO Nov 04, 2021 03:57
[2021-11-04] MEDS ORDERED: LACTATED RINGERS 1,000 ML IV ONE (04:00)
[2021-11-04] MEDS ORDERED: MAGNESIUM 1 GM/100 ML IVPB 100 ML IV ONE ×2 (04:15→11:45)
--- NOTE | 2021-11-04 05:42 | Diagnostic Imaging Report ---
INDICATION: Chest pain COMPARISON: 09/01/2021 FINDINGS: Single frontal view of the chest demonstrates normal heart size and pulmonary vascularity. The lungs are well aerated and clear. No large pleural effusion or pneumothorax is seen. The visualized osseous structures show no acute abnormalities. IMPRESSION: 1. No acute cardiopulmonary process. Dictated by: Dictated on workstation # [id number]
[2021-11-04] MEDS ORDERED: IOHEXOL 350 MG/ML 100 ML (OMNIPAQUE 350) VIAL IV ONE (06:00)
[2021-11-04] MEDS ORDERED: NS IV 1000 ML 1,000 ML IV SCH (06:00)
[2021-11-04] MEDS ORDERED: HOLD METFORMIN - RECEIVED CONTRAST 20 ML VIAL IV SCH (06:00)
[2021-11-04] MEDS ORDERED: NS 100 ML (IVPB) BAG IV ONE (06:00)
--- NOTE | 2021-11-04 06:33 | Diagnostic Imaging Report ---
INDICATION: Chest pain CTA chest, abdomen and pelvis Thin axial sections through the chest, abdomen and pelvis are obtained following intravenous contrast bolus. Multiplanar MIP images were reconstructed and reviewed. All CT scans use one or more of the following dose optimizing techniques: automated exposure control, MA and/or KvP adjustment based on patient size and exam type or iterative reconstruction. FINDINGS: CTA chest: Evaluation of the thoracic aorta demonstrates moderate scattered calcified and noncalcified atherosclerosis. By NASCET criteria, there is no focal significant stenosis. Additionally, there is no dissection or aneurysm. Pulmonary arteries are suboptimally opacified to assess for PE. This is due to poor opacification by the contrast bolus. Heart size is within normal limits. There is no large pericardial effusion. No pathologically enlarged or morphologically abnormal adenopathy is seen within the mediastinum, prashant, nor axilla. Evaluation of the lung bradley demonstrates background advanced emphysematous disease. There is otherwise moderate image degradation secondary to motion artifact. Mild dependent posterior atelectasis is present. There is no large effusion or pneumothorax. No suspicious pulmonary nodules or masses are seen. Osseous structures show no acute abnormalities. CT ABDOMEN: There is moderate stranding of the peripancreatic fat. Evaluation of the pancreas is partially obscured secondary to beam hardening artifact from indwelling thoracolumbar fusion hardware, but no distinct pancreatic mass type lesion is seen. There is no loculated fluid collection to suggest abscess. There is no evidence of hypoenhancement to suggest pancreatic necrosis. The kidneys, adrenal glands, spleen, and liver have a normal CT appearance. Small bowel loops are nondistended. Normal appendix cannot be adequately identified, but there is no pericecal inflammation. No abnormal mesenteric or retroperitoneal adenopathy is seen. There is moderate diffuse calcified aortic and arterial atherosclerosis. Osseous structures show no acute abnormalities. CT PELVIS: Urinary bladder wall is mildly thickened in appearance. It measures 6 mm. Urinary bladder is unopacified. No calculi are seen within the urinary bladder. There is no loculated fluid collection, free fluid or free air within the pelvis. No abnormal adenopathy is seen. Osseous structures show no acute abnormalities. IMPRESSION: 1. No acute abnormalities of the thoracic aorta. 2. Exam is nondiagnostic for pulmonary emboli. 3. No additional acute cardiopulmonary process. 4. Advanced moderate emphysematous disease. 5. Probable acute pancreatitis. No evidence of pseudocyst, abscess, nor pancreatic necrosis. 6. Thickened appearance to the urinary bladder wall. Findings may be exaggerated by under distention. Appearance, however, may also be seen with cystitis. Clinical correlation is recommended. Dictated by: Dictated on workstation # [id number]
[2021-11-04 06:35] LABS: BILIRUBIN,URINE NEGATIVE (NEGATIVE); CLARITY,URINE SL CLOUDY; COLOR,URINE YELLOW; GLUCOSE, URINE (UA) 1+ (NEGATIVE); KETONES,URINE NEGATIVE (NEGATIVE); LEUKOCYTE ESTERASE ,URINE 1+ (NEGATIVE); NITRITE,URINE POSITIVE (NEGATIVE); PROTEIN,URINE 1+ (NEGATIVE)
[2021-11-04 06:49] LABS: BACTERIA,URINE FEW /HPF; WBC,URINE 25-50 /HPF
[2021-11-04 06:50] LABS: AMPHETAMINE SCREEN, URINE NEGATIVE (NEGATIVE); BARBITURATE SCREEN URINE NEGATIVE (NEGATIVE); BENZODIAZEPINES SCREEN URINE NEGATIVE (NEGATIVE); CANNABINOID SCREEN, URINE NEGATIVE (NEGATIVE); COCAINE SCREEN URINE NEGATIVE (NEGATIVE); METHADONE STAT NEGATIVE (NEGATIVE); METHAMPHETAMINE SCREEN URINE S NEGATIVE (NEGATIVE); OPIATE SCREEN URINE NEGATIVE (NEGATIVE); OXYCODONE STAT NEGATIVE (NEGATIVE); PROPOXYPHENE STAT NEGATIVE (NEGATIVE); TRICYCLIC ANTIDEPRESSANTS SCRE NEGATIVE (NEGATIVE)
[2021-11-04] MEDS ORDERED: cefTRIAXone 1 GM PRE-MIX 50 ML IV ONE (08:15)
[2021-11-04] MEDS ORDERED: ONDANSETRON 4 MG (ZOFRAN) ORAL DISSOLVE TAB PO PRN (09:45)
[2021-11-04] MEDS ORDERED: MILK OF MAGNESIA 400 MG/5 ML 30 ML UDC PO PRN (09:45)
[2021-11-04] MEDS ORDERED: BISACODYL 10 MG SUPP (DULCOLAX) PR PRN (09:45)
[2021-11-04] MEDS ORDERED: ONDANSETRON 4 MG/2 ML (SDV) Z0FRAN IV PRN (09:45)
[2021-11-04] MEDS ORDERED: LACTULOSE SYRUP 10GM/15ML (ENULOSE) 30ML UDC PO PRN (09:45)
[2021-11-04] MEDS ORDERED: diphenhydrAMINE 25 MG TAB (BENADRYL) PO PRN (09:45)
[2021-11-04] MEDS ORDERED: ANTACID SUSP 30 ML UDC (MYLANTA) PO PRN (09:45)
[2021-11-04] MEDS ORDERED: ACETAMINOPHEN 325 MG TABLET PO PRN (09:45)
[2021-11-04] MEDS ORDERED: CALCIUM CARBONATE 500 MG (TUMS) TAB.CHEW PO PRN (09:45)
[2021-11-04] MEDS ORDERED: D5 1/2 NS 1000 ML IV SOLUTION 1,000 ML IV PRN (09:45)
[2021-11-04] MEDS ORDERED: diphenhydrAMINE 50 MG/ML INJ (BENADRYL) IVP PRN (09:45)
[2021-11-04] MEDS ORDERED: polyethylene glycoL POWDER 17 GM (MIRALAX) PACK PO PRN (09:45)
[2021-11-04] MEDS ORDERED: MELATONIN 3 MG TABLET PO PRN (09:45)
[2021-11-04] MEDS ORDERED: LORazepam INJ 2 MG/ML (ATIVAN) VIAL IM/IV PRN (09:45)
[2021-11-04] MEDS ORDERED: 1/2 NS IV SOLUTION 1,000 ML IV PRN (09:45)
[2021-11-04] MEDS: ENOXAPARIN 40 MG/0.4 ML (LOVENOX) SYR SC SCH (10:14)
[2021-11-04 10:32] VITALS: BP 144/88
[2021-11-04] MEDS ORDERED: 1/2 NS W/KCL 20 MEQ/L 0 ML IV ONE (10:50)
[2021-11-04] MEDS ORDERED: NS W/KCL 20 MEQ/L 1,000 ML IV ONE (11:27)
[2021-11-04] MEDS: FOLIC ACID 1 MG TAB PO SCH (11:29)
[2021-11-04] MEDS: MAGNESIUM OXIDE (MAG-OX)400 MG TAB PO SCH ×2 (11:29→20:32)
[2021-11-04] MEDS: MULTIVIT W/MINERALS TAB (THERAGRAN M) PO SCH (11:29)
[2021-11-04] MEDS: THIAMINE 100 MG (VITAMIN B-1) TAB PO SCH (11:29)
[2021-11-04 11:34] VITALS: BP 156/80
[2021-11-04] MEDS: inSUlin ASPART (NovoLOG) 1 UNIT/0.01 ML (CHARGE PER UNIT) SC SCH ×3 (11:40→21:00)
[2021-11-04] MEDS: POTASSIUM CL 10MEQ/50ML IVPB 50 ML IV SCH ×3 (11:48→15:55)
--- NOTE | 2021-11-04 11:59 | History & Physical-Hospitalist ---
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 initial labs on 11/04 show WBC elevated at 16.5, Troponin I normal, CKMB normal, BNP normal. amylase normal, Lipase elevated at 744. Toxicology screen is unremarkable. Urinalysis is nitrite positive and leukocyte esterase positive. D-dimer is elevated at 2.5. INR at 1.1. CXR is unremarkable. CTA is negative for pulmonary embolism, and shows probable acute pancreatitis wi th no pseudocyst or necroses, also a thickened bladder wall. When visiting the patient he appears in no acute distress and is hard of hearing. Is still having chest pain that has not improved since admission, points just inferiorly to the xiphoid process and says that the pain radiates to his back. Source: patient, other (ER notes reviewed) Exam Limitations: other Date Seen 11/04/21 Time Seen by a Provider: 11:21 Attending Physician Brittnee Garcia DO [facility] Referring Physician Date of Admission Nov 04, 2021 at 09:23 Home Medications & Allergies Home Medications Reviewed patient Home Medication Reconciliation performed by pharmacy medication reconciliations pathology lab technician and/or nursing. Patients Allergies have been reviewed. Allergies Allergies Coded Allergies ibuprofen (Verified Allergy, Unknown, 04/05/15) HYPERTENSION tramadol (Verified Adverse Reaction, Unknown, VOMIT, 10/03/18) Past Ipsuvfc-Ritutk-Gjdwou Hx Patient Social History Tobacco Use?: Yes Tobacco type used: Cigarettes Smoking Status: Current Everyday Smoker Substance use?: No Alcohol Use?: No Pt feels they are or have been: Unable to obtain Immunizations Up To Date Date of Influenza Vaccine: Jun 05, 2020 First/Initial COVID19 Vaccinat: 09/2021 Second COVID19 Vaccination Jl: 09/2021 Tetanus Booster (TDap): Less Than 5 Years Hepatitis A: No Hepatitis B: No PED Vaccines UTD: Yes Date of Pneumonia Vaccine: Jun 05, 2020 Seasonal Allergies Seasonal Allergies: No Current Status Advance Directives: No Communicates: Verbally Primary Language: Estonian Preferred Spoken Language: Estonian Past Medical History Surgeries: Appendectomy, Ear Surgery, Gallbladder, Orthopedic Chronic Bronchitis Currently Using CPAP: No Currently Using BIPAP: No Coronary Artery Disease, High Cholesterol, Hypertension, Syncope TIA Sexually Transmitted Disease: No HIV/AIDS: No Gastroesophageal Reflux Degenerate Disk Disease, Arthritis, Chronic Back Pain Dysphagia, Chronic Ear Infection Hearing Impairment: Hard of Hearing Skin Did You Recieve Any Treatments: Yes What Type of Treatment Did You: Surgical Intervention Anxiety, Suicide Attempts, Depression Blood Disorders: No Adverse Reaction/Blood Tranf: No (N/A) Family Medical History Cancer 03 FATHER (PROSTATE) 03 MOTHER (BREAST CA ) 09 BROTHER (THROAT/PANCREATIC) 09 SISTER (LIVER) DEAFNESS 03 FATHER 09 BROTHER Family history: Breast disease 03 MOTHER (BREAST CA) History of - respiratory disease Prostate cancer 03 FATHER Stroke 03 MOTHER Visual impairment No Pertinent Family Hx LONG HISTORY OF EXTREME NON-COMPLIANCE IN ALL ASPECTS OF CARE SOCIAL HISTORY: -SMOKES 2-3 PPD -ETOH--ABUSE/DAILY USE--ALSO DRINKS LARGE AMOUNTS OF NYQUIL DAILY -DRUGS-EXTENSIVE POLYSUBSTANCE ABUSE AND OVERDOSES--ESPECIALLY XANAX/BENZODIAZEPINES AND NARCOTICS/OPIATES; METHAMPHETAMINES -HAS HAD A MULTITUDE OF ACCIDENTS DUE TO SUBSTANCE ABUSE, HISTORY OF GETTING MULTIPLE RX'S FROM MULTIPROVIDERS USING MULTIPLE PHARMACIES; -HAS BEEN EVICTED FROM MULTIPLE REHAB /SUBSTANCE ABUSE TREATMENT FACILITIES, INCLUDING [facility], FOR EXTREME NON-COMPLIANCE. 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 % Review of Systems Constitutional: No chills, No diaphoresis, No fever EENTM: No hearing loss, No blurred vision Respiratory: No cough, No dyspnea on exertion, No short of breath Cardiovascular: chest pain (pain just inferior to xiphoid process that radiates to the back.) Gastrointestinal: abdominal pain (pain just inferior to xiphoid process that radiates to the back.); No diarrhea, No nausea, No vomiting Genitourinary: No decreased output, No dysuria Musculoskeletal: back pain Skin: No change in color, No dryness Psychiatric/Neurological: Denies Anxiety, Denies Depressed, Denies Headache, Denies Numbness, Denies Paresthesia Physical Exam Physical Exam Vital Signs Vital Signs - First Documented 11/04/21 11/04/21 11/04/21 02:45 11:03 12:52 Temp 36.5 Pulse 113 Resp 18 B/P (MAP) 136/100 (112) Pulse Ox 97 O2 Delivery Room Air O2 Flow Rate 2.00 FiO2 21 Capillary Refill : Less Than 3 Seconds Height, Weight, BMI Height: 5'6.00" Weight: 130lbs. 2.0oz. [id number]; 21.15 BMI Method:Stated General Appearance: Moderate Distress HEENT: PERRL/EOMI Neck: Full Range of Motion Respiratory: Chest Non Tender, Lungs Clear, Normal Breath Sounds, No Accessory Muscle Use, No Respiratory Distress Cardiovascular: Regular Rate, Rhythm Gastrointestinal: Normal Bowel Sounds, No Organomegaly, No Pulsatile Mass, Tenderness (just inferior to the xiphoid process) Extremity: No Pedal Edema Neurologic/Psychiatric: Alert, Oriented x3, No Motor/Sensory Deficits, Normal Mood/Affect Skin: Normal Color, Warm/Dry Results Results/Procedures Labs Laboratory Tests 11/04/21 02:46 Patient resulted labs reviewed. Assessment/Plan Admission Diagnosis Assessment: Pancreatitis Hyperglycemia Hypokalemia Leukocytosis HTN Assessment and Plan Assessment: Pancreatitis- CTA on 11/04 Hyperglycemia Hypokalemia Leukocytosis- WBC 16.5 on 11/04 HTN Plan: Consult surgery pain control supportive care Novolog sliding scale IV abx Clinical Quality Measures AMI/AHF: ASA po Prior to arrival: Yes BRITTNEE GARCIA DO 11/05/21 0522: History of Present Illness HPI/Chief Complaint Chief complaint: Acute pancreatitis History of present illness: This is a 66-year-old white male clinic patient [facility] who has a past medical history of alcoholism who presen ts to the ER with complaints of chest pain and abdominal pain. ER work-up ensued patient was found to have acute pancreatitis. General surgery and cardiology consulted due to risk factors of decompensation from pancreatitis and CAD respectively. Patient is a poor historian no other details obtained Source: patient Past Yvycohg-Oevtgk-Gmifmu Hx Patient Social History Marrital Status: single Employed/Student: unemployed Smoking Status: Current Everyday Smoker Alcohol type: Hard Liquor Alcohol Frequency: Daily Past Medical History High Cholesterol, Hypertension Family Medical History Cancer 03 FATHER (PROSTATE) 03 MOTHER (BREAST CA ) 09 BROTHER (THROAT/PANCREATIC) 09 SISTER (LIVER) DEAFNESS 03 FATHER 09 BROTHER Family history: Breast disease 03 MOTHER (BREAST CA) History of - respiratory disease Prostate cancer 03 FATHER Stroke 03 MOTHER Visual impairment Review of Systems Constitutional: see HPI, malaise, weakness Gastrointestinal: abdominal pain (pain just inferior to xiphoid process that ra diates to the back.), loss of appetite, nausea, vomiting Physical Exam Physical Exam General Appearance: Anxious, Chronically ill, Mild Distress Respiratory: Lungs Clear, Normal Breath Sounds Cardiovascular: Regular Rate, Rhythm Neurologic/Psychiatric: Alert, Disoriented Assessment/Plan Admission Diagnosis Assessment: Pancreatitis Alcoholism Abdominal pain Hypokalemia Plan: Pain control IV fluids General surgery consult Admission Status: Inpatient Order (span 2 midnights) Reason for Inpatient Admission: Pancreatitis Supervisory-Addendum Brief Verification & Attestation Participated in pt care: history, MDM, physical Personally performed: exam, history, MDM, supervision of care Care discussed with: Medical Student Procedures: n/a Results interpretation: Verified all documentation Verification and Attestation of Medical Student E/M Service A medical student performed and documented this service in my presence. I reviewed and verified all information documented by the medical student and made modifications to such information, when appropriate. I personally performed the physical exam and medical decision making. Brittnee Garcia Nov 05, 2021,05:22 CHANDANA WEST Nov 04, 2021 11:59 BRITTNEE GARCIA DO Nov 05, 2021 05:22
[2021-11-04] MEDS: NS W/KCL 20 MEQ/L 1,000 ML IV SCH ×2 (12:21→20:44)
[2021-11-04] MEDS: LORazepam INJ 2 MG/ML (ATIVAN) VIAL IV PRN ×2 (12:45→23:55)
[2021-11-04 12:52] VITALS: BP 136/100
[2021-11-04] MEDS ORDERED: RT-ALBUTEROL SULF 2.5 MG/3 ML PRE-MIX VIAL INH PRN (14:00)
[2021-11-04] MEDS ORDERED: NS W/KCL 20 MEQ/L 1,000 ML IV SCH (14:00)
[2021-11-04 14:16] LABS: BILIRUBIN,URINE NEGATIVE (NEGATIVE); CLARITY,URINE CLEAR; COLOR,URINE YELLOW; GLUCOSE, URINE (UA) NEGATIVE (NEGATIVE); KETONES,URINE NEGATIVE (NEGATIVE); LEUKOCYTE ESTERASE ,URINE TRACE (NEGATIVE); NITRITE,URINE POSITIVE (NEGATIVE); PROTEIN,URINE 1+ (NEGATIVE)
[2021-11-04 14:20] LABS: BACTERIA,URINE TRACE /HPF; WBC,URINE 25-50 /HPF
[2021-11-04 16:00] VITALS: BP 137/82
--- NOTE | 2021-11-04 16:39 | Consultation-Cardiology ---
HPI-Cardiology Cardiology Consultation: Date of Consultation 11/04/21 Date of Admission 11/04/21 Attending Physician Brittnee Garcia DO Admitting Physician [place] Consulting Physician LUZ ELENA ARVIZU JR, MD HPI: Time Seen by a Provider: 16:34 Chief Complaint: Reason for consultation: Chest pain. I had the pleasure of seeing Luz Elena on the medical/surgical unit at [facility] in [place], [place] this afternoon. He is known to me from previous hospitalizations as well as being seen in my office in the past. However, the last time I saw him in the office was in February 2021. At that time I ordered a 30-day event recorder which he only wore for about 1 day and then he never returned for his follow-up appointment. He has a history of a possible transient ischemic attack in January 2021, hypertension, hyperlipidemia, gastroesophageal reflux disease with previous strictures requiring dilatation, chronic back pain, hearing loss, polysubstance abuse, and cigarette smoking. He presented to the hospital early this morning with chest pain. Due to his hearing loss, it is very difficult to communicate with him. It also appears as though he has some altered mental status at the present time. While he was being evaluated in the emergency room, his lipase was found to be elevated and he was felt to be suffering pancreatitis and was admitted for further treatment and evaluation. He is also being treated for alcohol detox although is ethanol level was undetectable at the time of admission. When I saw him this afternoon, he tells me he still has substernal chest discomfort. He also has bilateral upper quadrant abdominal pain. He states that he has been very fatigued and short of breath when he tries to walk. He does not report paroxysmal nocturnal dyspnea or orthopnea. After I started asking him a few more questions, he see med to become more confused and was not answering any of my subsequent questions appropriately. Again, unclear whether or not this was due to his extreme hearing loss or altered mental status. Certain portions of this document may have been dictated utilizing voice recognition technology. Inherent to this technology, typographical and grammatical errors may exist. As much as I am diligent to identify and correct these mistakes, some errors may remain in the document. Review of Systems-Cardiology Review of Systems Other comments Review of 10 organ systems is as per the history of present illness, otherwise negative. However, his answers may not be entirely reliable due to some baseline confusion as well as his hearing loss. JMH-Lonimi-Dgbcck Hx Patient Social History Marrital Status: single Smoking Status: Current Everyday Smoker 2nd Hand Smoke Exposure: Yes Have you traveled recently?: No Alcohol Use?: No Pt feels they are or have been: Unable to obtain Tobacco type used: Cigarettes Immunizations Up To Date Tetanus Booster (TDap): Less than 5yrs Date of Pneumonia Vaccine: Jun 05, 2020 Date of Influenza Vaccine: Jun 05, 2020 Past Medical History PMH As described under Assessment. Family Medical History Family Medical History: He does not know of any family history of premature coronary artery disease. Family History: Cancer 03 FATHER (PROSTATE) 03 MOTHER (BREAST CA ) 09 BROTHER (THROAT/PANCREATIC) 09 SISTER (LIVER) DEAFNESS 03 FATHER 09 BROTHER Family history: Breast disease 03 MOTHER (BREAST CA) History of - respiratory disease Prostate cancer 03 FATHER Stroke 03 MOTHER Visual impairment Allergies and Home Medications Allergies Coded Allergies: ibuprofen (Verified Allergy, Unknown, 04/05/15) HYPERTENSION tramadol (Verified Adverse Reaction, Unknown, VOMIT, 10/03/18) Patient Home Medication List Home Medication List Reviewed: Yes Amlodipine Besylate (Amlodipine Besylate) 5 Mg Tablet, 5 MG PO DAILY Prescribed by: BRITTNEE GARCIA on 09/06/21 113 Atorvastatin Calcium (Lipitor) 40 Mg Tablet, 40 MG PO HS Prescribed by: BRITTNEE GARCIA on 09/06/21 113 Dexamethasone (Dexamethasone) 6 Mg Tablet, 6 MG PO DAILY Prescribed by: BRITTNEE GARCIA on 09/06/21 113 Hydrocodone Bit/Acetaminophen (HYDROcodone/APAP 10/325 TABLET) 1 Ea Tab, 1 EA PO Q4H PRN for PAIN-MODERATE (5-7) Prescribed by: BRITTNEE GARCIA on 09/06/21 113 Loperamide HCl (Imodium A-D) 2 Mg Tablet, 2 MG PO TID Prescribed by: ALBA ROSA on 10/28/212009 Lorazepam (Ativan) 0.5 Mg Tablet, 0.5 MG PO TID PRN for ANXIETY Prescribed by: BRITTNEE GARCIA on 09/06/21 113 Ondansetron (Ondansetron Odt) 8 Mg Tab.rapdis, 8 MG PO Q6H PRN for NAUSEA/V OMITING Prescribed by: ALBA ROSA on 10/28/212009 Potassium Chloride (Potassium Chloride) 20 Meq Tablet.er, 20 MEQ PO BID Prescribed by: ALBA ROSA on 10/28/212009 Vitamin B Complex (B Complex) 1 Each Tablet, 1 EACH PO DAILY Prescribed by: BRITTNEE GARCIA on 09/06/21 1137 Exam Vital Signs Vital Signs Date Time Temp Pulse Resp B/P (MAP) Pulse Ox O2 Delivery O2 Flow Rate FiO2 11/04/21 16:00 37.5 96 16 137/82 (100) 91 Room Air 11/04/21 12:52 21 11/04/21 11:03 2.00 Physical Exam General: Alert. No acute distress. He is disheveled. Well nourished and appears stated age. He is extremely hard of hearing. Eye: Extraocular movements are intact. Conjunctivae are clear. There are no xanthelasma. HENT: Normocephalic. Atraumatic. Carotid pulsations 2/2 without bruits. Neck: Jugular venous pressure does not appear elevated. No thyromegaly appreciated. Respiratory: Lungs are clear to auscultation. Respirations are non-labored. Breath sounds are equal. Symmetrical chest wall expansion. Cardiovascular: Normal rate. Regular rhythm. No murmur. No gallop. Point of maximal impulse is not appear displaced. Good pulses equal in all extremities. No edema. Gastrointestinal: Soft. Normal bowel sounds. Skin: Skin turgor is normal. There is no pallor. Musculoskeletal: No kyphosis or scoliosis appreciated. Neurologic: Alert and oriented to person only. Cranial nerves 3-12 appear grossly intact. The patient has good motor tone strength in the upper and lower extremities bilaterally. Psychiatric: Cooperative but seems somewhat confused. Labs Laboratory Tests Test 11/04/21 02:46 11/04/21 06:28 11/04/21 11:13 11/04/21 11:47 Range/Units White Blood Count 16.5 H 4.3-11.0 10^3/uL Red Blood Count 4.37 4.30-5.52 10^6/uL Hemoglobin 14.8 13.3-17.7 g/dL Hematocrit 44 40-54 % Mean Corpuscular Volume 101 H 80-99 fL Mean Corpuscular Hemoglobin 34 25-34 pg Mean Corpuscular Hemoglobin Concent 34 32-36 g/dL Red Cell Distribution Width 13.0 10.0-14.5 % Platelet Count 252 130-400 10^3/uL Mean Platelet Volume 9.3 9.0-12.2 fL Immature Granulocyte % (Auto) 0 % Neutrophils (%) (Auto) 88 H 42-75 % Lymphocytes (%) (Auto) 4 L 12-44 % Monocytes (%) (Auto) 7 0-12 % Eosinophils (%) (Auto) 0 0-10 % Basophils (%) (Auto) 0 0-10 % Neutrophils # (Auto) 14.6 H 1.8-7.8 10^3/uL Lymphocytes # (Auto) 0.7 L 1.0-4.0 10^3/uL Monocytes # (Auto) 1.2 H 0.0-1.0 10^3/uL Eosinophils # (Auto) 0.0 0.0-0.3 10^3/uL Basophils # (Auto) 0.0 0.0-0.1 10^3/uL Immature Granulocyte # (Auto) 0.1 0.0-0.1 10^3/uL Neutrophils % (Manual) 88 % Lymphocytes % (Manual) 3 % Monocytes % (Manual) 9 % Blood Morphology Comment NORMAL Prothrombin Time 14.3 12.2-14.7 SEC INR Comment 1.1 0.8-1.4 Activated Partial Thromboplast Time 31 24-35 SEC D-Dimer 2.09 H 0.00-0.49 UG/ML Sodium Level 137 135-145 MMOL/L Potassium Level 2.7 L 3.6-5.0 MMOL/L Chloride Level 97 L 98-107 MMOL/L Carbon Dioxide Level 13 L 21-32 MMOL/L Anion Gap 27 H 5-14 MMOL/L Blood Urea Nitrogen 13 7-18 MG/DL Creatinine 1.16 0.60-1.30 MG/DL Estimat Glomerular Filtration Rate 69 BUN/Creatinine Ratio 11 Glucose Level 234 H 70-105 MG/DL Calcium Level 9.0 8.5-10.1 MG/DL Corrected Calcium 9.5 8.5-10.1 MG/DL Magnesium Level 1.4 L 1.7 1.6-2.4 MG/DL Total Bilirubin 1.0 0.1-1.0 MG/DL Aspartate Amino Transf (AST/SGOT) 18 5-34 U/L Alanine Aminotransferase (ALT/SGPT) 12 0-55 U/L Alkaline Phosphatase 127 40-136 U/L Total Creatine Kinase 109 30-200 U/L Creatine Kinase MB 0.8 <6.6 NG/ML Myoglobin 55.5 10.0-92.0 NG/ML Troponin I < 0.028 <0.028 NG/ML B-Type Natriuretic Peptide 17.1 <100.0 PG/ML Total Protein 6.5 6.4-8.2 GM/DL Albumin 3.4 3.2-4.5 GM/DL Amylase Level 117 25-125 U/L Lipase 744 H 8-78 U/L Serum Alcohol < 10 <10 MG/DL Influenza Type A (RT-PCR) Not Detected Not Detecte Influenza Type B (RT-PCR) Not Detected Not Detecte SARS-CoV-2 RNA (RT-PCR) Not Detected Not Detecte Urine Color YELLOW Urine Clarity SL CLOUDY Urine pH 6.0 5-9 Urine Specific [place] 1.020 1.016-1.022 Urine Protein 1+ H NEGATIVE Urine Glucose (UA) 1+ H NEGATIVE Urine Ketones NEGATIVE NEGATIVE Urine Nitrite POSITIVE H NEGATIVE Urine Bilirubin NEGATIVE NEGATIVE Urine Urobilinogen 0.2 < = 1.0 MG/DL Urine Leukocyte Esterase 1+ H NEGATIVE Urine RBC (Auto) TRACE-I H NEGATIVE Urine RBC 2-5 H /HPF Urine WBC 25-50 H /HPF Urine Crystals NONE /LPF Urine Bacteria FEW H /HPF Urine Casts NONE /LPF Urine Mucus NEGATIVE /LPF Urine Culture Indicated YES Urine Opiates Screen NEGATIVE NEGATIVE Urine Oxycodone Screen NEGATIVE NEGATIVE Urine Methadone Screen NEGATIVE NEGATIVE Urine Propoxyphene Screen NEGATIVE NEGATIVE Urine Barbiturates Screen NEGATIVE NEGATIVE Ur Tricyclic Antidepressants Screen NEGATIVE NEGATIVE Urine Phencyclidine Screen NEGATIVE NEGATIVE Urine Amphetamines Screen NEGATIVE NEGATIVE Urine Methamphetamines Screen NEGATIVE NEGATIVE Urine Benzodiazepines Screen NEGATIVE NEGATIVE Urine Cocaine Screen NEGATIVE NEGATIVE Urine Cannabinoids Screen NEGATIVE NEGATIVE Glucometer 134 H 70-110 MG/DL Radiology 30-DAY EVENT MONITOR (02/25/2021-03/26/2021): 1. This is a 30-day mobile cardiac outpatient telemetry report that was obtained for 1 day and 14 hours. The study was compromised by limited data. 2. Baseline sinus rhythm with an average heart rate of 78 bpm, ranging from 50- 120 bpm with rare, isolated premature supraventricular and premature ventricular complexes each representing less than 1% of the total recording time. 3. There was no evidence of atrial fibrillation. 4. There were 3 patient events that correlated to sinus rhythm with heart rates ranging from 78-88 bpm with no arrhythmias. ELECTROCARDIOGRAM (02/01/2021): Sinus rhythm with a ventricular rate of 73 bpm with prominent voltages, otherwise unremarkable tracing. LABS (01/27/2021): Hemoglobin 11.6. Platelets 164,000. Potassium 3.6. Creatinine 0.72. MRI BRAIN WITHOUT CONTRAST (01/25/2021): 1. No acute ischemia, mass, or hemorrhage. 2. Chronic microvascular disease. 3. Fluid in the right mastoid air cells and right middle ear cavity, which may represent otomastoiditis. CT HEAD WITHOUT-RULE OUT STROKE (01/24/2021): 1. There is no evidence of acute intracranial process. 2. Stable complete consolidation of the right middle ear and right mastoid air cells which may be related to otomastoiditis. ECHOCARDIOGRAM (01/25/2021): 1. Normal left ventricular chamber size and wall thickness with normal left ventricular systolic function with an estimated ejection fraction of 65-70%. 2. Grade 1 left ventricular diastolic dysfunction. 3. Mild mitral regurgitation. 4. The estimated pulmonary artery pressure is [address] CHEST/ABDOMEN/PELVIS WITHOUT CONTRAST (01/24/2021): 1. Cystitis. 2. Chronic obstructive pulmonary disease. CHEST 1 VIEW, AP/PA ONLY (01/24/2021): 1. Chronic obstructive pulmonary disease. 2. No acute abnormality seen. ELECTROCARDIOGRAM (01/24/2021): Sinus rhythm with nonspecific T wave changes. ECG Impression ECG Comment Electrocardiogram from the emergency room earlier this morning shows sinus tachycardia at a heart rate of [address] depression in diffuse leads. Diagnosis/Problems Diagnosis/Problems (1) Chest pain Status: Acute Assessment & Plan: As above, obtaining a history from this patient is very difficult as it has been in the past. I cannot quite gather whether or not this chest pain sounds consistent with cardiac chest pain versus noncardiac chest pain. He is being treated for pancreatitis which could certainly cause some chest pain. Nonetheless, given his cardiac risk factors, I recommend further evaluation with a nuclear stress test. I will start him on low strength aspirin and restart his outpatient dose of atorvastatin. (2) Abnormal electrocardiogram Assessment & Plan: He has nonspecific ST depression on his electrocardiogram from this morning but no signs of a prior infarct or obvious ischemic changes. In light of his chest pain, we will proceed with a stress test as above. (3) Primary hypertension Assessment & Plan: Blood pressures have been intermittently elevated. If this persists, we may need to restart his outpatient antihypertensive medication. However, I am not sure that he was even taking any medication as prescribed prior to admission. (4) Mixed hyperlipidemia Status: Chronic Assessment & Plan: He is supposed to be taking atorvastatin at home which I will restart. I have also added a lipid panel to blood work from this morning. (5) Sinus bradycardia Status: Acute Assessment & Plan: He has a previous history of profound sinus bradycardia. I had previously felt that this may have contributed to his lightheaded spells. Beta-kelly and diltiazem should be avoided. (6) Cigarette smoker Assessment & Plan: He tells me he cannot remember the last time he had a cigarette although again, his history was very difficult to obtain. LUZ ELENA ARVIZU JR, MD Nov 04, 2021 16:39
[2021-11-04] MEDS ORDERED: REGADENOSON 0.4 MG/5 ML SYR (LEXISCAN) IV ONE (17:00)
[2021-11-04 17:37] LABS: TRIGLYCERIDES 93 MG/DL (<150); VLDL CHOLESTEROL 19 MG/DL (5-40)
[2021-11-04 17:42] LABS: CHOLESTEROL 122 MG/DL (< 200); HDL CHOLESTEROL 43 MG/DL (40-60)
--- NOTE | 2021-11-04 18:03 | CONSULTATION REPORT ---
DATE OF SERVICE: DATE OF ADMISSION: 11/04/2021 ATTENDING PRIMARY CARE PHYSICIAN: Dr. Garcia. HISTORY OF PRESENT ILLNESS: The patient is a 66-year-old male who presented to the Emergency Department by EMS with epigastric as well as chest pain. He has had this before in the past; however, is a very poor historian. He underwent a CT scan, which did show inflammation of the pancreas consistent with acute pancreatitis. No signs of any pancreatic necrosis. The patient has had multiple issues with alcohol abuse, requiring admission. He was also admitted in September 07 for COVID pneumonia and did have alcohol withdrawal symptoms during that hospitalization. PAST MEDICAL HISTORY: Coronary artery disease, hypercholesterolemia, history of TIA, gastroesophageal reflux disease, history of esophageal stricture, degenerative joint disease, history of polysubstance abuse as well as alcohol abuse. PAST SURGICAL HISTORY: Back surgery x3, rotator cuff repair x3, appendectomy, laparoscopic cholecystectomy, bilateral carpal tunnel release, bilateral myringotomy, cardiac catheterization. SOCIAL HISTORY: Positive smoke 40 pack years. Positive alcohol. FAMILY HISTORY: Father with prostate cancer. Mother, breast cancer. Brother, pancreatic cancer. Sister with liver cancer. VITAL SIGNS: Temperature 37.5, blood pressure 137/82, pulse 96, respirations 16, pulse ox 91% on room air. REVIEW OF SYSTEMS: Well-nourished male currently in no acute distress. He is not experiencing any shortness of breath or difficulty breathing. No chest pain, palpitations, diaphoresis. No nausea, vomiting, no diarrhea or constipation. No red blood per rectum, no dark tarry stools. No fever, chills, no recent inadvertent weight loss. All other review of systems negative. PHYSICAL EXAMINATION: CHEST: Distant breath sounds and scattered wheezes bilaterally. HEART: Regular, no murmurs. EXTREMITIES: No lower extremity edema, negative Homans sign. HEENT: No scleral icterus. NECK: No cervical lymphadenopathy. ABDOMEN: Soft, nondistended. There is pain in the epigastric region with radiation towards the back. SKIN: Warm, dry. LABORATORY DATA: WBC 16.5, hemoglobin 14.8, hematocrit 44, platelets 252. BUN 13, creatinine 1.16. Potassium 2.7, lipase 744, amylase 117. Urinalysis, nitrite positive, leukocyte esterase positive, few bacteria. ASSESSMENT AND PLAN: A 66-year-old male with alcohol-induced acute pancreatitis. He will need to proceed with refraining from alcohol and for now, treatment with IV hydration and pain control as well as alcohol withdrawal therapy with thiamine, riboflavin and benzodiazepines for agitation. Job ID: [id number] DocumentID: [id number] Dictated Date: 11/04/2021 17:40:29 Development Coach Date: 11/04/2021 18:02:43 Dictated By: RIK BRADY MD MTDD
[2021-11-04 20:00] VITALS: BP 151/92
[2021-11-04] MEDS: PANTOPRAZOLE 40 MG (PROTONIX) VIAL IV SCH (20:32)
[2021-11-04] MEDS: DOCUSATE SODIUM 100 MG (COLACE) CAP PO SCH (20:33)
[2021-11-04] MEDS: LORazepam 1 MG (ATIVAN) TAB PO PRN (20:33)
[2021-11-04] MEDS: SENNOSIDES 8.6 MG (SENOKOT) TAB PO SCH (20:33)
[2021-11-04] MEDS: morphine INJ 4 MG/ML 1 ML (VIAL/SYRINGE) IV PRN (23:08)
[2021-11-05 00:21] VITALS: BP 136/76
[2021-11-05 03:30] VITALS: BP 137/86
[2021-11-05] MEDS: NS W/KCL 20 MEQ/L 1,000 ML IV SCH ×3 (03:44→14:51)
[2021-11-05] MEDS: LORazepam INJ 2 MG/ML (ATIVAN) VIAL IV PRN ×5 (03:45→22:25)
[2021-11-05 05:48] LABS: BASOPHILS % (AUTO) 0 % (0-10); EOSINOPHILS % (AUTO) 0 % (0-10); HEMATOCRIT 40 % (40-54); HEMOGLOBIN 13.1 g/dL (13.3-17.7); LYMPHOCYTES # (AUTO) 0.9 10^3/uL (1.0-4.0); LYMPHOCYTES % (AUTO) 9 % (12-44); MEAN CORPUSCULAR HEMOGLOBIN 34 pg (25-34); MEAN CORPUSCULAR HGB CONC 33 g/dL (32-36); MEAN CORPUSCULAR VOLUME 101 fL (80-99); MEAN PLATELET VOLUME 9.7 fL (9.0-12.2); MONOCYTES # (AUTO) 0.5 10^3/uL (0.0-1.0); MONOCYTES % (AUTO) 5 % (0-12); NEUTROPHILS % (AUTO) 84 % (42-75); PLATELET COUNT 137 10^3/uL (130-400); WHITE BLOOD COUNT 9.6 10^3/uL (4.3-11.0)
[2021-11-05] MEDS: FOLIC ACID 1 MG TAB PO SCH (05:57)
[2021-11-05] MEDS: MULTIVIT W/MINERALS TAB (THERAGRAN M) PO SCH (05:57)
[2021-11-05] MEDS: THIAMINE 100 MG (VITAMIN B-1) TAB PO SCH (05:57)
[2021-11-05 06:24] LABS: ALBUMIN 2.6 GM/DL (3.2-4.5)
[2021-11-05 06:25] LABS: POTASSIUM 3.5 MMOL/L (3.6-5.0)
[2021-11-05 06:26] LABS: CALCIUM 7.9 MG/DL (8.5-10.1)
[2021-11-05 06:27] LABS: TOTAL PROTEIN 5.3 GM/DL (6.4-8.2)
[2021-11-05 06:29] LABS: BILIRUBIN,TOTAL 1.4 MG/DL (0.1-1.0)
[2021-11-05] MEDS: inSUlin ASPART (NovoLOG) 1 UNIT/0.01 ML (CHARGE PER UNIT) SC SCH ×4 (06:30→20:12)
[2021-11-05 06:31] LABS: CREATININE SERUM 0.6 MG/DL (0.60-1.30)
[2021-11-05] MEDS: morphine INJ 4 MG/ML 1 ML (VIAL/SYRINGE) IV PRN ×3 (06:37→20:12)
[2021-11-05] MEDS ORDERED: POTASSIUM CL 10MEQ/50ML IVPB 50 ML IV ONE (06:44)
[2021-11-05] MEDS: POTASSIUM CL 10MEQ/50ML IVPB 50 ML IV SCH ×4 (06:46→10:52)
[2021-11-05 07:17] VITALS: BP 140/87
[2021-11-05] MEDS ORDERED: PANTOPRAZOLE 40 MG (PROTONIX) VIAL IV SCH (09:00)
[2021-11-05] MEDS ORDERED: THIAMINE INJECTION 100 MG, FOLIC ACID INJECTION 1 MG, MAGNESIUM SULFATE 2 GM, VITAMIN M... IV SCH ×5 (09:00)
--- NOTE | 2021-11-05 09:18 | Cardiology Progress Note ---
Progress Note-Cardiology Events since last exam Date Seen by Provider: Nov 05, 2021 Time Seen by Provider: 09:17 Events since last exam I am following him due to the chest pain. He remains on the medical floor. He is still very confused. However, he denies chest pain. He denies lightheadedness, syncope, dyspnea at rest, palpitations, or ankle edema. However, due to his confusion and extreme hearing loss, his answers may not be reliable. Certain portions of this document may have been dictated utilizing voice recognition technology. Inherent to this technology, typographical and grammatical errors may exist. As much as I am diligent to identify and correct these mistakes, some errors may remain in the document. Vitals Last set of Vitals Signs Vital Signs 11/04/21 11/05/21 12:52 11:53 Temp 38.0 Pulse 96 Resp 20 B/P (MAP) 155/88 (110) Pulse Ox 94 O2 Delivery Nasal Cannula O2 Flow Rate 4.00 FiO2 21 Labs Labs Laboratory Tests 11/05/21 05:00 Exam Vital Signs Vital Signs Date Time Temp Pulse Resp B/P (MAP) Pulse Ox O2 Delivery O2 Flow Rate FiO2 11/05/21 11:53 38.0 96 20 155/88 (110) 94 Nasal Cannula 4.00 11/04/21 12:52 21 Physical Exam General: Alert but confused. No acute distress. Eye: No xanthelasma. HENT: Normocephalic. Neck: Jugular venous pressure does not appear elevated. Respiratory: Lungs are clear to auscultation. Respirations are non-labored. Breath sounds are equal. Symmetrical chest wall expansion. Cardiovascular: Normal rate. Regular rhythm. No murmur. No gallop. No edema. Gastrointestinal: Soft. Normal bowel sounds. Skin: Warm. Dry. Neurologic: Alert and oriented to person only. He cannot even tell me where he lives. Cranial nerves 3-11 grossly intact. Psychiatric: Cooperative but confused. Labs Laboratory Tests Test 11/04/21 16:34 11/04/21 20:58 11/05/21 05:00 11/05/21 10:49 Range/Units Glucometer 106 115 H 86 70-110 MG/DL White Blood Count 9.6 4.3-11.0 10^3/uL Red Blood Count 3.91 L 4.30-5.52 10^6/uL Hemoglobin 13.1 L 13.3-17.7 g/dL Hematocrit 40 40-54 % Mean Corpuscular Volume 101 H 80-99 fL Mean Corpuscular Hemoglobin 34 25-34 pg Mean Corpuscular Hemoglobin Concent 33 32-36 g/dL Red Cell Distribution Width 13.2 10.0-14.5 % Platelet Count 137 130-400 10^3/uL Mean Platelet Volume 9.7 9.0-12.2 fL Immature Granulocyte % (Auto) 0 % Neutrophils (%) (Auto) 84 H 42-75 % Lymphocytes (%) (Auto) 9 L 12-44 % Monocytes (%) (Auto) 5 0-12 % Eosinophils (%) (Auto) 0 0-10 % Basophils (%) (Auto) 0 0-10 % Neutrophils # (Auto) 8.0 H 1.8-7.8 10^3/uL Lymphocytes # (Auto) 0.9 L 1.0-4.0 10^3/uL Monocytes # (Auto) 0.5 0.0-1.0 10^3/uL Eosinophils # (Auto) 0.0 0.0-0.3 10^3/uL Basophils # (Auto) 0.0 0.0-0.1 10^3/uL Immature Granulocyte # (Auto) 0.0 0.0-0.1 10^3/uL Sodium Level 137 135-145 MMOL/L Potassium Level 3.5 L 3.6-5.0 MMOL/L Chloride Level 103 98-107 MMOL/L Carbon Dioxide Level 23 21-32 MMOL/L Anion Gap 11 5-14 MMOL/L Blood Urea Nitrogen 8 7-18 MG/DL Creatinine 0.60 0.60-1.30 MG/DL Estimat Glomerular Filtration Rate 106 BUN/Creatinine Ratio 13 Glucose Level 90 70-105 MG/DL Calcium Level 7.9 L 8.5-10.1 MG/DL Corrected Calcium 9.0 8.5-10.1 MG/DL Total Bilirubin 1.4 H 0.1-1.0 MG/DL Aspartate Amino Transf (AST/SGOT) 21 5-34 U/L Alanine Aminotransferase (ALT/SGPT) 9 0-55 U/L Alkaline Phosphatase 99 40-136 U/L Total Protein 5.3 L 6.4-8.2 GM/DL Albumin 2.6 L 3.2-4.5 GM/DL Lipase 391 H 8-78 U/L Diagnosis/Problems Diagnosis/Problems (1) Chest pain Status: Acute Assessment & Plan: As above, obtaining a history from this patient is very difficult as it has been in the past. I cannot quite gather whether or not this chest pain sounds consistent with cardiac chest pain versus noncardiac chest pain. He is being treated for pancreatitis which could certainly cause some chest pain. Nonetheless, given his cardiac risk factors, I recommend further evaluation with a nuclear stress test. I directed him on low strength aspirin and restarted his outpatient dose of atorvastatin. I had him scheduled for a stress test today but he was too confused to undergo the test. We will get this rescheduled for another day. If his stress test is abnormal, I would be inclined to treat him medically. He would not be a good candidate for revascularization due to his history of noncompliance with medication and follow-up visits. (2) Abnormal electrocardiogram Assessment & Plan: He has nonspecific ST depression on his electrocardiogram from admission but no signs of a prior infarct or obvious ischemic changes. In light of his chest pain, we will proceed with a stress test as above. However, as above, this is now on hold until his mental status improves. (3) Primary hypertension Assessment & Plan: Blood pressures have been intermittently elevated. If this persists, we may need to restart his outpatient antihypertensive medication. However, I am not sure that he was even taking any medication as prescribed prior to admission. (4) Mixed hyperlipidemia Status: Chronic Assessment & Plan: He is supposed to be taking atorvastatin at home which I I have restarted. His LDL level is well controlled on blood work from this admission although unclear whether or not he was taking statin medication at home. (5) Sinus bradycardia Status: Acute Assessment & Plan: He has a previous history of profound sinus bradycardia. I had previously felt that this may have contributed to his lightheaded spells. Beta-kelly and diltiazem should be avoided. (6) Cigarette smoker Assessment & Plan: He tells me he cannot remember the last time he had a cigarette although again, his history was very difficult to obtain. (7) Encephalopathy acute Assessment & Plan: He has no electrolyte derangements to explain encephalopathy. He has been treated for alcohol withdrawal during this admiss ion but his alcohol level was undetectable at the time of admission. Because of the mental status changes, we will have to hold off on additional cardiac testing until this clears. The primary hospitalist is managing this condition. LUZ ELENA ARVIZU JR, MD Nov 05, 2021 09:18
[2021-11-05] MEDS: PANTOPRAZOLE 40 MG (PROTONIX) VIAL IV SCH ×2 (09:31→20:10)
[2021-11-05] MEDS: DOCUSATE SODIUM 100 MG (COLACE) CAP PO SCH ×2 (09:32→19:44)
[2021-11-05] MEDS: ENOXAPARIN 40 MG/0.4 ML (LOVENOX) SYR SC SCH (09:32)
[2021-11-05] MEDS: SENNOSIDES 8.6 MG (SENOKOT) TAB PO SCH ×2 (09:32→19:45)
[2021-11-05] MEDS: cefTRIAXone 1 GM PRE-MIX 50 ML IV SCH (09:46)
[2021-11-05] MEDS ORDERED: CATHETER FLUSH 10 ML SYR IVP PRN (10:30)
--- NOTE | 2021-11-05 10:30 | Progress Note - Hospitalist ---
CHANDANA WEST 11/05/21 1030: Subjective HPI/CC On Admission Date Seen by Provider: Nov 05, 2021 Time Seen by Provider: 08:38 Subjective/Events-last exam Chief complaint: Acute pancreatitis History of present illness: This is a 66-year-old white male clinic patient [facility] who has a past medical history of alcoholism who presents to the ER with complaints of chest pain and abdominal pain. ER work-up ensued patient was found to have acute pancreatitis. General surgery and cardio logy consulted due to risk factors of decompensation from pancreatitis and CAD respectively. Patient is a poor historian no other details obtained. Subjective/Events-last exam Patient barely awakened when I visited and his speech is not fully comprehensive. Vitals and labs are stable. Review of Systems General: Malaise Neurological: Weakness, Confusion Patient is not fully understandable and ROS obtained from him is limited Objective Exam Vital Signs Vital Signs Date Time Temp Pulse Resp B/P (MAP) Pulse Ox O2 Delivery O2 Flow Rate FiO2 11/05/21 21:24 Nasal Cannula 4.00 11/05/21 20:41 36.9 91 18 100/98 (99) 91 11/04/21 12:52 21 Capillary Refill : Less Than 3 Seconds General Appearance: Anxious, Chronically ill, Mild Distress Respiratory: Lungs Clear, Normal Breath Sounds Cardiovascular: Regular Rate, Rhythm Neurologic/Psychiatric: Disoriented (He was able to awake when I entered though barely and seeming less alert than yesterday.) Skin: Normal Color, Warm/Dry Results/Procedures Lab Laboratory Tests 11/05/21 05:00 Patient resulted labs reviewed. Assessment/Plan Assessment and Plan Assess & Plan/Chief Complaint Assessment: Pancreatitis Alcoholism Abdominal pain Hypokalemia Plan: Pain control IV fluids General surgery consult 11/05/2021 Alcohol withdrawal protocol pain control IV fluids General surgery has been consulted Clinical Quality Measures AMI/AHF: ASA po Prior to arrival: Yes BRITTNEE KISER DO 11/06/21 0521: Subjective Subjective/Events-last exam Pt is sleeping soundly Detox protocol maintained Lipase down to 391 Overall doing okay Review of Systems General: Fatigue, Malaise Neurological: Confusion Objective Exam General Appearance: Anxious, Chronically ill, Mild Distress Respiratory: Lungs Clear, Normal Breath Sounds Cardiovascular: Regular Rate, Rhythm Neurologic/Psychiatric: Alert Assessment/Plan Assessment and Plan Assess & Plan/Chief Complaint Supportive care Pain control Alcohol withdrawal protocol Supervisory-Addendum Brief Verification & Attestation Participated in pt care: history, MDM, physical Personally performed: exam, history, MDM, supervision of care Care discussed with: Medical Student Procedures: n/a Results interpretation: Verified all documentation Verification and Attestation of Medical Student E/M Service A medical student performed and documented this service in my presence. I reviewed and verified all information documented by the medical student and made modifications to such information, when appropriate. I personally performed the physical exam and medical decision making. Brittnee Kiser, Nov 06, 2021,05:20 CHANDANA WEST Nov 05, 2021 10:30 BRITTNEE KISER DO Nov 06, 2021 05:21
[2021-11-05 11:53] VITALS: BP 155/88
[2021-11-05] MEDS: MAGNESIUM OXIDE (MAG-OX)400 MG TAB PO SCH ×3 (12:26→19:45)
[2021-11-05] MEDS: ASPIRIN E.C. 81 MG (ECOTRIN) TAB PO SCH ×2 (12:26→12:33)
[2021-11-05 15:33] VITALS: BP 161/95
--- NOTE | 2021-11-05 18:54 | Progress Note ---
Subjective Date Seen by a Provider: Nov 05, 2021 Time Seen by a Provider: 18:00 Subjective/Events-last exam still very much confused. mild abd pain. VSS. labs about the same. Objective Exam Vital Signs Date Time Temp Pulse Resp B/P (MAP) Pulse Ox O2 Delivery O2 Flow Rate FiO2 11/05/21 15:33 37.0 90 20 161/95 (117) 93 Room Air 11/05/21 13:00 94 11/05/21 11:53 38.0 96 20 155/88 (110) 94 Nasal Cannula 4.00 11/05/21 08:00 Room Air 11/05/21 07:17 37.3 99 20 140/87 (104) 91 Nasal Cannula 4.00 11/05/21 07:00 98 11/05/21 03:30 37.8 107 20 137/86 (103) 92 Nasal Cannula 4.00 11/05/21 01:53 99 11/05/21 00:21 37.7 95 18 136/76 (96) 90 Nasal Cannula 2.00 11/04/21 20:00 37.2 92 16 151/92 (111) 87 Room Air 11/04/21 20:00 Room Air 11/04/21 19:00 95 I & O 11/05/21 07:00 Intake Total 3900 ml Output Total 1050 ml Balance 2850 ml Capillary Refill : Less Than 3 Seconds General Appearance: No Apparent Distress HEENT: PERRL/EOMI Neck: Full Range of Motion Respiratory: Decreased Breath Sounds, Rhonci Cardiovascular: Regular Rate, Rhythm Gastrointestinal: soft, tenderness Extremity: Normal Capillary Refill Neurologic/Psychiatric: Alert, Oriented x3 Skin: Normal Color Lymphatic: No Adenopathy Results Lab Laboratory Tests 11/04/21 20:58: Glucometer 115H 11/05/21 05:00: White Blood Count 9.6, Red Blood Count 3.91L, Hemoglobin 13.1L, Hematocrit 40, Mean Corpuscular Volume 101H, Mean Corpuscular Hemoglobin 34, Mean Corpuscular Hemoglobin Concent 33, Red Cell Distribution Width 13.2, Platelet Count 137, Mean Platelet Volume 9.7, Immature Granulocyte % (Auto) 0, Neutrophils (%) (Auto) 84H, Lymphocytes (%) (Auto) 9L, Monocytes (%) (Auto) 5, Eosinophils (%) (Auto) 0, Basophils (%) (Auto) 0, Neutrophils # (Auto) 8.0H, Lymphocytes # (Auto) 0.9L, Monocytes # (Auto) 0.5, Eosinophils # (Auto) 0.0, Basophils # (Auto) 0.0, Immature Granulocyte # (Auto) 0.0, Sodium Level 137, Potassium Level 3.5L, Chloride Level 103, Carbon Dioxide Level 23, Anion Gap 11, Blood Urea Nitrogen 8, Creatinine 0.60, Estimat Glomerular Filtration Rate 106, BUN/Creatinine Ratio 13, Glucose Level 90, Calcium Level 7.9L, Corrected Calcium 9.0, Total Bilirubin 1.4H, Aspartate Amino Transf (AST/SGOT) 21, Alanine Aminotransferase (ALT/SGPT) 9, Alkaline Phosphatase 99, Total Protein 5.3L, Albumin 2.6L, Lipase 391H 11/05/21 10:49: Glucometer 86 11/05/21 15:38: Glucometer 92 Microbiology 11/04/21 Urine Culture - Preliminary, Resulted Klebsiella aerogenes Assessment/Plan Assessment/Plan Assess & Plan/Chief Complaint ETOH induced pancreatitis. IV fluids, bowel rest, PPI. DT prophylaxis. Clinical Quality Measures AMI/AHF: ASA po Prior to arrival: Yes RIK BRADY MD Nov 05, 2021 18:54
[2021-11-05 20:41] VITALS: BP 100/98
[2021-11-06 00:06] VITALS: BP 144/105
[2021-11-06] MEDS: LORazepam INJ 2 MG/ML (ATIVAN) VIAL IV PRN ×6 (01:33→06:48)
[2021-11-06] MEDS: NS W/KCL 20 MEQ/L 1,000 ML IV SCH ×3 (01:34→22:45)
[2021-11-06 04:04] VITALS: BP 156/97
[2021-11-06] MEDS ORDERED: DEXTROSE 50% 50 ML (IMS) SYR IV PRN (05:15)
[2021-11-06 05:45] LABS: LYMPHOCYTES # (AUTO) 1.1 10^3/uL (1.0-4.0); MEAN CORPUSCULAR VOLUME 102 fL (80-99); NEUTROPHILS % (AUTO) 79 % (42-75)
[2021-11-06 05:47] LABS: BASOPHILS # (AUTO) 0.1 10^3/uL (0.0-0.1); BASOPHILS % (AUTO) 1 % (0-10); EOSINOPHILS # (AUTO) 0.1 10^3/uL (0.0-0.3); EOSINOPHILS % (AUTO) 1 % (0-10); HEMATOCRIT 38 % (40-54); HEMOGLOBIN 12.6 g/dL (13.3-17.7); LYMPHOCYTES % (AUTO) 13 % (12-44); MEAN CORPUSCULAR HEMOGLOBIN 34 pg (25-34); MEAN CORPUSCULAR HGB CONC 33 g/dL (32-36); MEAN PLATELET VOLUME 9.7 fL (9.0-12.2); MONOCYTES # (AUTO) 0.5 10^3/uL (0.0-1.0); MONOCYTES % (AUTO) 6 % (0-12); NEUTROPHILS # (AUTO) 6.7 10^3/uL (1.8-7.8); PLATELET COUNT 133 10^3/uL (130-400); WHITE BLOOD COUNT 8.4 10^3/uL (4.3-11.0)
[2021-11-06] MEDS: THIAMINE 100 MG (VITAMIN B-1) TAB PO SCH (05:49)
[2021-11-06] MEDS: inSUlin ASPART (NovoLOG) 1 UNIT/0.01 ML (CHARGE PER UNIT) SC SCH ×4 (05:49→20:21)
[2021-11-06] MEDS: MULTIVIT W/MINERALS TAB (THERAGRAN M) PO SCH (05:49)
[2021-11-06] MEDS: FOLIC ACID 1 MG TAB PO SCH (05:49)
[2021-11-06 06:03] LABS: ALBUMIN 2.7 GM/DL (3.2-4.5); POTASSIUM 4.7 MMOL/L (3.6-5.0)
[2021-11-06 06:04] LABS: CALCIUM 8.3 MG/DL (8.5-10.1)
[2021-11-06 06:06] LABS: TOTAL PROTEIN 5.6 GM/DL (6.4-8.2)
[2021-11-06 06:08] LABS: BILIRUBIN,TOTAL 1.3 MG/DL (0.1-1.0)
[2021-11-06 06:09] LABS: CREATININE SERUM 0.57 MG/DL (0.60-1.30)
[2021-11-06 08:00] VITALS: BP 161/96
--- NOTE | 2021-11-06 08:35 | Cardiology Progress Note ---
Progress Note-Cardiology Events since last exam Date Seen by Provider: Nov 06, 2021 Time Seen by Provider: 08:34 Events since last exam I am following him due to chest pain. He has somnolent but arousable to light touch. He is still very confused. He was not answering any of my questions this morning. As such, I cannot obtain any interval history from the patient today. Certain portions of this document may have been dictated utilizing voice recognition technology. Inherent to this technology, typographical and grammatical errors may exist. As much as I am diligent to identify and correct these mistakes, some errors may remain in the document. Vitals Last set of Vitals Signs Vital Signs 11/04/21 11/06/21 11/06/21 11/06/21 12:52 04:04 07:00 09:17 Temp 36.8 Pulse 83 Resp 22 B/P (MAP) 156/97 (116) Pulse Ox 91 O2 Delivery Nasal Cannula O2 Flow Rate 4.00 FiO2 21 Labs Labs Laboratory Tests 11/06/21 05:10 Exam Vital Signs Vital Signs Date Time Temp Pulse Resp B/P (MAP) Pulse Ox O2 Delivery O2 Flow Rate FiO2 11/06/21 09:17 91 Nasal Cannula 4.00 11/06/21 07:00 83 11/06/21 04:04 36.8 22 156/97 (116) 11/04/21 12:52 21 Physical Exam General: Somnolent but arousable to light touch. No acute distress. Extremely hard of hearing. Confused. Eye: No xanthelasma. HENT: Normocephalic. Neck: Jugular venous pressure does not appear elevated. Respiratory: Lungs are clear to auscultation. Respirations are non-labored. Breath sounds are equal. Symmetrical chest wall expansion. Cardiovascular: Normal rate. Regular rhythm. No murmur. No gallop. No edema. Gastrointestinal: Soft. Normal bowel sounds. Skin: Warm. Dry. Neurologic: Confused. Cranial nerves 3-11 grossly intact. Psychiatric: Confused. Labs Laboratory Tests Test 11/05/21 10:49 11/05/21 15:38 11/05/21 20:09 11/06/21 05:01 Range/Units Glucometer 86 92 75 58 *L 70-110 MG/DL Test 11/06/21 05:10 11/06/21 05:43 Range/Units White Blood Count 8.4 4.3-11.0 10^3/uL Red Blood Count 3.74 L 4.30-5.52 10^6/uL Hemoglobin 12.6 L 13.3-17.7 g/dL Hematocrit 38 L 40-54 % Mean Corpuscular Volume 102 H 80-99 fL Mean Corpuscular Hemoglobin 34 25-34 pg Mean Corpuscular Hemoglobin Concent 33 32-36 g/dL Red Cell Distribution Width 12.8 10.0-14.5 % Platelet Count 133 130-400 10^3/uL Mean Platelet Volume 9.7 9.0-12.2 fL Immature Granulocyte % (Auto) 0 % Neutrophils (%) (Auto) 79 H 42-75 % Lymphocytes (%) (Auto) 13 12-44 % Monocytes (%) (Auto) 6 0-12 % Eosinophils (%) (Auto) 1 0-10 % Basophils (%) (Auto) 1 0-10 % Neutrophils # (Auto) 6.7 1.8-7.8 10^3/uL Lymphocytes # (Auto) 1.1 1.0-4.0 10^3/uL Monocytes # (Auto) 0.5 0.0-1.0 10^3/uL Eosinophils # (Auto) 0.1 0.0-0.3 10^3/uL Basophils # (Auto) 0.1 0.0-0.1 10^3/uL Immature Granulocyte # (Auto) 0.0 0.0-0.1 10^3/uL Percent Immature Platelet Fraction 2.8 0.0-7.6 % Sodium Level 135 135-145 MMOL/L Potassium Level 4.7 3.6-5.0 MMOL/L Chloride Level 103 98-107 MMOL/L Carbon Dioxide Level 22 21-32 MMOL/L Anion Gap 10 5-14 MMOL/L Blood Urea Nitrogen 7 7-18 MG/DL Creatinine 0.57 L 0.60-1.30 MG/DL Estimat Glomerular Filtration Rate 108 BUN/Creatinine Ratio 12 Glucose Level 60 *L 70-105 MG/DL Calcium Level 8.3 L 8.5-10.1 MG/DL Corrected Calcium 9.3 8.5-10.1 MG/DL Total Bilirubin 1.3 H 0.1-1.0 MG/DL Aspartate Amino Transf (AST/SGOT) 34 5-34 U/L Alanine Aminotransferase (ALT/SGPT) 12 0-55 U/L Alkaline Phosphatase 91 40-136 U/L Total Protein 5.6 L 6.4-8.2 GM/DL Albumin 2.7 L 3.2-4.5 GM/DL Glucometer 183 H 70-110 MG/DL Diagnosis/Problems Diagnosis/Problems (1) Chest pain Status: Acute Assessment & Plan: As above, obtaining a history from this patient is very difficult as it has been in the past. I cannot quite gather whether or not this chest pain sounds consistent with cardiac chest pain versus noncardiac chest pain. He is being treated for pancreatitis which could certainly cause some chest pain. Nonetheless, given his cardiac risk factors, I recommend further evaluation with a nuclear stress test. I started him on low strength aspirin and restarted his outpatient dose of atorvastatin. I had him scheduled for a stress test on 11/05 but he was too confused to undergo the test. We will get this rescheduled for another day. If his stress test is abnormal, I would be inclined to treat him medically. He would not be a good candidate for revascularization due to his history of noncompliance with medication and follow-up visits. However, knowing whether or not he has evidence of coronary ischemia on a stress test will be helpful if he presents to the emergency room again in the future with chest pain. If we can get a stress test and he does have evidence of ischemia, then I would consider starting long-acting nitrates. Due to previous bradycardia, he is not a good candidate for beta-kelly. (2) Abnormal electrocardiogram Assessment & Plan: He has nonspecific ST depression on his electrocardiogram from admission but no signs of a prior infarct or obvious ischemic changes. In light of his chest pain, we will proceed with a stress test as above. However, as above, this is now on hold until his mental status improves. (3) Primary hypertension Assessment & Plan: Blood pressures have been intermittently elevated. If this persists, we may need to restart his outpatient antihypertensive medication. However, I am not sure that he was even taking any medication as prescribed prior to admission. I suspect he may have a tendency towards developing dehydration when he has home. This did happen to him in the past that resulted in at least one hospitalization. We may want to allow for some permissive hypertension while he is here in the hospital to help avoid hypotension when he is ultimately discharged to home. (4) Mixed hyperlipidemia Status: Chronic Assessment & Plan: He is supposed to be taking atorvastatin at home which I I have restarted. His LDL level is well controlled on blood work from this admission although unclear whether or not he was taking statin medication at home. (5) Sinus bradycardia Status: Acute Assessment & Plan: He has a previous history of profound sinus bradycardia. I had previously felt that this may have contributed to his lightheaded spells in the past. Beta-kelly and diltiazem should be avoided. (6) Cigarette smoker Assessment & Plan: He tells me he cannot remember the last time he had a cigarette although again, his history was very difficult to obtain. (7) Encephalopathy acute Assessment & Plan: He has no electrolyte derangements to explain encephalopathy although his blood sugar has been intermittently low. He has been treated for alcohol withdrawal during this admission but his alcohol level was undetectable at the time of admission. Because of the mental status changes, we will have to hold off on additional cardiac testing until this clears. The primary hospitalist is managing this condition. LUZ ELENA ARVIZU JR, MD Nov 06, 2021 08:35
[2021-11-06] MEDS: cefTRIAXone 1 GM PRE-MIX 50 ML IV SCH (09:17)
[2021-11-06] MEDS: ENOXAPARIN 40 MG/0.4 ML (LOVENOX) SYR SC SCH (09:18)
[2021-11-06] MEDS: MAGNESIUM OXIDE (MAG-OX)400 MG TAB PO SCH ×2 (09:18→20:19)
[2021-11-06] MEDS: DOCUSATE SODIUM 100 MG (COLACE) CAP PO SCH ×2 (09:18→20:19)
[2021-11-06] MEDS: ASPIRIN E.C. 81 MG (ECOTRIN) TAB PO SCH (09:18)
[2021-11-06] MEDS: SENNOSIDES 8.6 MG (SENOKOT) TAB PO SCH ×2 (09:19→20:19)
[2021-11-06] MEDS: PANTOPRAZOLE 40 MG (PROTONIX) VIAL IV SCH ×2 (09:19→20:19)
--- NOTE | 2021-11-06 11:35 | Progress Note - Hospitalist ---
CHANDANA WEST 11/06/21 1135: Subjective HPI/CC On Admission Date Seen by Provider: Nov 06, 2021 Time Seen by Provider: 08:58 Chief complaint: Acute pancreatitis History of present illness: This is a 66-year-old white male clinic patient [facility] who has a past medical history of alcoholism who presents to the ER with complaints of chest pain and abdominal pain. ER work-up ensued patient was found to have acute pancreatitis. General surgery and cardiology consulted due to risk factors of decompensation from pancreatitis and CAD respectively. Patient is a poor historian no other details obtained. Subjective/Events-last exam Patient sleeping heavily when I visited. Has some coughing as well as wheezing in the right lung. Vitals and labs are stable. Review of Systems General: Fatigue, Malaise Neurological: Weakness, Confusion Patient is not fully understandable and ROS obtained from him is limited Objective Exam Vital Signs Vital Signs Date Time Temp Pulse Resp B/P (MAP) Pulse Ox O2 Delivery O2 Flow Rate FiO2 11/06/21 13:00 75 11/06/21 11:37 36.1 20 160/98 (118) 94 Nasal Cannula 3.50 11/04/21 12:52 21 Capillary Refill : Less Than 3 Seconds General Appearance: Chronically ill, Mild Distress, Thin, Other (Sleeping heavily) Respiratory: No Accessory Muscle Use, No Respiratory Distress, Wheezing, Other (Snoring during sleep) Cardiovascular: Regular Rate, Rhythm, No Edema, No Murmur Skin: Normal Color, Warm/Dry Results/Procedures Lab Laboratory Tests 11/06/21 05:10 Patient resulted labs reviewed. Assessment/Plan Assessment and Plan Assess & Plan/Chief Complaint Assessment: Pancreatitis Alcoholism Abdominal pain Hypokalemia Plan: Pain control IV fluids General surgery consult 11/05/2021: Supportive care Pain control Alcohol withdrawal protocol 11/06/2021: Supportive care Pain control Alcohol withdrawal protocol Clinical Quality Measures AMI/AHF: ASA po Prior to arrival: Yes BRITTNEE KISER DO 11/07/21 0525: Subjective Subjective/Events-last exam Pt is still very sedated Woke up enough to take some pills today by nurse Overall seems to be in deep alcohol withdrawal but no concerns about vital signs stability Review of Systems General: Fatigue, Malaise Neurological: Confusion Objective Exam General Appearance: Chronically ill Respiratory: Lungs Clear, Normal Breath Sounds Cardiovascular: Regular Rate, Rhythm Assessment/Plan Assessment and Plan Assess & Plan/Chief Complaint Supportive care Long alcohol withdrawal process Supervisory-Addendum Brief Verification & Attestation Participated in pt care: history, MDM, physical Personally performed: exam, history, MDM, supervision of care Care discussed with: Medical Student Procedures: n/a Results interpretation: Verified all documentation Verification and Attestation of Medical Student E/M Service A medical student performed and documented this service in my presence. I reviewed and verified all information documented by the medical student and made modifications to such information, when appropriate. I personally performed the physical exam and medical decision making. Brittnee Kiser, Nov 07, 2021,05:24 CHANDANA WEST Nov 06, 2021 11:35 BRITTNEE KISER DO Nov 07, 2021 05:25
[2021-11-06 11:37] VITALS: BP 160/98
[2021-11-06 16:00] VITALS: BP 168/85
--- NOTE | 2021-11-06 17:17 | Progress Note ---
Subjective Date Seen by a Provider: Nov 06, 2021 Time Seen by a Provider: 17:00 Subjective/Events-last exam doing ok. states pain issues improved. still somewhat confused and feels tired. tolerating clears. no vomiting. Objective Exam Vital Signs Date Time Temp Pulse Resp B/P (MAP) Pulse Ox O2 Delivery O2 Flow Rate FiO2 11/06/21 13:00 75 11/06/21 11:37 36.1 76 20 160/98 (118) 94 Nasal Cannula 3.50 11/06/21 09:17 91 Nasal Cannula 4.00 11/06/21 08:00 36.6 82 18 161/96 (117) 96 Nasal Cannula 4.00 11/06/21 08:00 Nasal Cannula 2.00 11/06/21 07:00 83 11/06/21 04:04 36.8 92 22 156/97 (116) 91 Nasal Cannula 4.00 4.00 11/06/21 01:00 85 11/06/21 00:06 36.8 88 20 144/105 (118) 93 Nasal Cannula 4.00 11/05/21 21:24 Nasal Cannula 4.00 11/05/21 20:41 36.9 91 18 100/98 (99) 91 Nasal Cannula 4.00 11/05/21 20:30 Room Air 11/05/21 19:00 92 I & O 11/06/21 07:00 Intake Total 230 ml Output Total 1800 ml Balance -1570 ml Capillary Refill : Less Than 3 Seconds General Appearance: No Apparent Distress HEENT: PERRL/EOMI Neck: Full Range of Motion Respiratory: Decreased Breath Sounds, Rhonci Cardiovascular: Regular Rate, Rhythm Gastrointestinal: normal bowel sounds, soft, tenderness Extremity: Normal Capillary Refill Neurologic/Psychiatric: Alert Skin: Normal Color Lymphatic: No Adenopathy Results Lab Laboratory Tests 11/05/21 20:09: Glucometer 75 11/06/21 05:01: Glucometer 58*L 11/06/21 05:10: White Blood Count 8.4, Red Blood Count 3.74L, Hemoglobin 12.6L, Hematocrit 38L, Mean Corpuscular Volume 102H, Mean Corpuscular Hemoglobin 34, Mean Corpuscular Hemoglobin Concent 33, Red Cell Distribution Width 12.8, Platelet Count 133, Mean Platelet Volume 9.7, Immature Granulocyte % (Auto) 0, Neutrophils (%) (Auto) 79H, Lymphocytes (%) (Auto) 13, Monocytes (%) (Auto) 6, Eosinophils (%) (Auto) 1, Basophils (%) (Auto) 1, Neutrophils # (Auto) 6.7, Lymphocytes # (Auto) 1.1, Monocytes # (Auto) 0.5, Eosinophils # (Auto) 0.1, Basophils # (Auto) 0.1, Immature Granulocyte # (Auto) 0.0, Percent Immature Platelet Fraction 2.8, Sodium Level 135, Potassium Level 4.7, Chloride Level 103, Carbon Dioxide Level 22, Anion Gap 10, Blood Urea Nitrogen 7, Creatinine 0.57L, Estimat Glomerular Filtration Rate 108, BUN/Creatinine Ratio 12, Glucose Level 60*L, Calcium Level 8.3L, Corrected Calcium 9.3, Total Bilirubin 1.3H, Aspartate Amino Transf (AST/SGOT) 34, Alanine Aminotransferase (ALT/SGPT) 12, Alkaline Phosphatase 91, Total Protein 5.6L, Albumin 2.7L 11/06/21 05:43: Glucometer 183H 11/06/21 11:23: Glucometer 70 11/06/21 15:32: Glucometer 66L 11/06/21 16:21: Glucometer 82 Microbiology 11/04/21 Urine Culture - Final, Complete Klebsiella aerogenes Assessment/Plan Assessment/Plan Assess & Plan/Chief Complaint ETOH induced pancreatitis. IV fluids, bowel rest, PPI. DT prophylaxis. cont clears for now until speech therapy. Clinical Quality Measures AMI/AHF: ASA po Prior to arrival: Yes RIK BRADY MD Nov 06, 2021 17:17
[2021-11-06 19:51] VITALS: BP 159/93
[2021-11-07] VITALS: BP 147/90
[2021-11-07 04:00] VITALS: BP 170/100
[2021-11-07] MEDS: inSUlin ASPART (NovoLOG) 1 UNIT/0.01 ML (CHARGE PER UNIT) SC SCH ×4 (05:31→21:41)
[2021-11-07 06:05] LABS: BASOPHILS % (AUTO) 1 % (0-10); EOSINOPHILS # (AUTO) 0.1 10^3/uL (0.0-0.3); EOSINOPHILS % (AUTO) 1 % (0-10); HEMATOCRIT 39 % (40-54); HEMOGLOBIN 12.9 g/dL (13.3-17.7); LYMPHOCYTES # (AUTO) 0.7 10^3/uL (1.0-4.0); LYMPHOCYTES % (AUTO) 11 % (12-44); MEAN CORPUSCULAR HEMOGLOBIN 33 pg (25-34); MEAN CORPUSCULAR HGB CONC 33 g/dL (32-36); MEAN CORPUSCULAR VOLUME 101 fL (80-99); MEAN PLATELET VOLUME 9.2 fL (9.0-12.2); MONOCYTES # (AUTO) 0.6 10^3/uL (0.0-1.0); MONOCYTES % (AUTO) 9 % (0-12); NEUTROPHILS # (AUTO) 4.9 10^3/uL (1.8-7.8); NEUTROPHILS % (AUTO) 78 % (42-75); PLATELET COUNT 142 10^3/uL (130-400); WHITE BLOOD COUNT 6.3 10^3/uL (4.3-11.0)
--- NOTE | 2021-11-07 06:06 | Progress Note - Hospitalist ---
Subjective HPI/CC On Admission Date Seen by Provider: Nov 07, 2021 Time Seen by Provider: 10:00 Chief complaint: Acute pancreatitis History of present illness: This is a 66-year-old white male clinic patient [facility] who has a past medical history of alcoholism who presents to the ER with complaints of chest pain and abdominal pain. ER work-up ensued patient was found to have acute pancreatitis. General surgery and cardiology consulted due to risk factors of decompensation from pancreatitis and CAD respectively. Patient is a poor historian no other details obtained. Subjective/Events-last exam Patient waking up a bit but then goes back to sleep No pain reported Labs reviewed Very poor prognosis Review of Systems General: Fatigue, Malaise Neurological: Confusion Objective Exam Vital Signs Vital Signs Date Time Temp Pulse Resp B/P (MAP) Pulse Ox O2 Delivery O2 Flow Rate FiO2 11/08/21 03:56 37.5 68 18 179/84 (115) 95 Nasal Cannula 3.00 11/07/21 03:13 2 Capillary Refill : Less Than 3 Seconds General Appearance: No Apparent Distress, WD/WN, Chronically ill Respiratory: Decreased Breath Sounds Cardiovascular: Regular Rate, Rhythm Results/Procedures Lab Laboratory Tests 11/07/21 05:56 Patient resulted labs reviewed. Assessment/Plan Assessment and Plan Assess & Plan/Chief Complaint Assessment: Acute pancreatitis Alcoholism Alcohol withdrawal Plan: Supportive care IV fluid Clinical Quality Measures AMI/AHF: ASA po Prior to arrival: Yes STALIN KISER DO Nov 07, 2021 06:06
[2021-11-07 06:16] LABS: ALBUMIN 2.7 GM/DL (3.2-4.5); POTASSIUM 4.6 MMOL/L (3.6-5.0)
[2021-11-07 06:17] LABS: CALCIUM 8.5 MG/DL (8.5-10.1)
[2021-11-07 06:18] LABS: TOTAL PROTEIN 5.8 GM/DL (6.4-8.2)
[2021-11-07 06:20] LABS: BILIRUBIN,TOTAL 1.1 MG/DL (0.1-1.0)
[2021-11-07 06:22] LABS: CREATININE SERUM 0.59 MG/DL (0.60-1.30)
[2021-11-07 08:00] VITALS: BP 169/94
--- NOTE | 2021-11-07 08:54 | ST Dysphagia Evaluation ---
Speech Evaluation-General Medical Diagnosis Acute Pancreatitis Onset Date: Nov 04, 2021 Therapy Diagnosis Therapy Diagnosis: Suspected Oral Dysphagia Precautions Precautions: Fall, Aspiration Precautions/Isolations: Aspiration, Fall Prevention, Standard Precautions Referral Referring Physician: Dr. Brittnee Garcia Reason for Referral: Evaluation/Treatment Medical History Pertinent Medical History: Arthritis, CAD, GERD, HTN, Smoking Current History The patient is a 66 year-old male with a past medical history of CAD, HTN, high cholesterol, syncope, GERD, arthritis, and dysphagia, who presented to [facility] on 11/04/21 with complaints of sharp chest pain which radiates to his back. The patient was diagnosed with acute pancreatitis and admitted to acute inpatient care for additional care and monitoring. CXR: 11/04/21: IMPRESSION: 1. No acute cardiopulmonary process. Speech PLF/Current-Dysphagia Prior Level of Function The patient reports consumption of a regular consistency diet with thin liquids prior to hospitalization. Regardless of edentulous state, the patient reports appropriate and adequate mastication of dry solid consistencies (the patient denied the presence of dentures). Subjective The patient was lying in bed, awake and alert upon entrance to the patient's room. The patient has his breakfast tray with clear liquids present at bedside. The patient greeted the clinician appropriately and was agreeable to participation in the clinical bedside swallowing evaluation. The patient remains significantly confused, requiring consistent redirection to task and topic. The patient displays a productive cough at baseline in isolation of P.O. trials. Cognitive Status Patient Orientation: Confused Oral Motor Skills Dentition: Edentalous (Denies the presence of dentures.) Current Food Consistancy: Clear Liquids Ability to Follow Directions: Fair Oral Expression Ability: Moderate Impairment Voice Voice Phonatory-Based Quality: Weak Voice Pitch: Normal Voice Loudness: Mildly Soft/Quiet Face Facial Symmetry: Symmetrical Oral-Facial Assessment Oral-Facial Dentition: Normal Labial Seal Description: Normal Smile: Normal Lingual Protrusion: Normal Lingual ROM: Normal Lingual Strength: Normal Pharynx Velopharyngeal Move.: Normal Volitional Dry Swallow: Yes Voluntary Cough: Yes Can Clear Throat Volitionally: Yes Productive Cough: Yes Productive Throat Clear: Yes Dysphagia Evaluation Consistencies Presented: Regular (One saltine cracker.), Thin Liquid (Two cup drinks.), Pureed (Two teaspoons of pudding.) Increased mastication and prolonged bolus formation and posterior transfer time were appreciated of solid consistencies. Pharyngeal Phase: Clears Throat The patient displayed throat clearing behavior prior to, throughout, and following P.O. bolus trials. The presence of the throat clear does not appear to increase in frequency or intensity throughout the P.O. bolus trials. Recommendations: - Due to the patient's consistent refusal, the clinician is unable to provide recommendations for the least restrictive diet consistency. - Increased appropriate participation will be necessary prior to the recommendation of a diet consistency from this clinician. - The patient did consume two puree boluses without s/s of suspected aspiration. If essential medications are necessary, speech pathology would recommend medication crushed and placed in puree. The RN was able to observe the interactions between the patient and the clinician throughout the evaluation attempt. ST will reattempt as appropriate. Dysphagia Evaluation Summary The patient demonstrated probable oral dysphagia, however, full evaluation could not be completed secondary to patient refusal. The patient was offered multiple different consistencies and options in attempts to improve participation and cooperation. The patient continuously refused. The patient consumed two cup edge drinks, two teaspoons of puree, and one saltine cracker. Additional P.O. trials are necessary for completion of a full assessment. Speech Short Term Goals Short Term Goals Short Term Goals 1. The patient will appropriately participate in a clinical bedside swallowing evaluation for determination of the least restrictive diet consistency. Time Frame-STG: Three Days. Speech Skilled Nursing Goals Manager Corporate Marketing Goals 1. The patient will tolerate the least restrictive diet consistency without s/s of suspected aspiration. Time Frame: One Week. Speech-Plan Treatment Plan Speech Therapy Treatment Plan: Continue Plan of Care Treatment Duration: Nov 14, 2021 Frequency: 2 times per week Estimated Hrs Per Day: .25 hour per day Rehab Potential: Poor Safety Risks/Education Teaching Recipient: Patient Teaching Methods: Discussion Response to Teaching: Unable to Comprehend Education Topics Provided: Rationale for Speech Pathology Swallowing Evaluation, Recommendations Time Speech Therapy Time In: 08:17 Speech Therapy Time Out: 08:35 Total Billed Time: 18 Billed Treatment Time 1, BEBETO FAYE ELIZABETH ST Nov 07, 2021 08:54
[2021-11-07] MEDS: cefTRIAXone 1 GM PRE-MIX 50 ML IV SCH (09:02)
[2021-11-07] MEDS: NS W/KCL 20 MEQ/L 1,000 ML IV SCH ×3 (09:02→21:45)
[2021-11-07] MEDS: LORazepam 1 MG (ATIVAN) TAB PO PRN (09:03)
[2021-11-07] MEDS: ENOXAPARIN 40 MG/0.4 ML (LOVENOX) SYR SC SCH (09:03)
[2021-11-07] MEDS: ASPIRIN E.C. 81 MG (ECOTRIN) TAB PO SCH (09:03)
[2021-11-07] MEDS: SENNOSIDES 8.6 MG (SENOKOT) TAB PO SCH ×2 (09:03→21:44)
[2021-11-07] MEDS: PANTOPRAZOLE 40 MG (PROTONIX) VIAL IV SCH ×2 (09:04→21:44)
[2021-11-07] MEDS: DOCUSATE SODIUM 100 MG (COLACE) CAP PO SCH ×2 (09:04→21:43)
--- NOTE | 2021-11-07 09:05 | Cardiology Progress Note ---
Progress Note-Cardiology Events since last exam Date Seen by Provider: Nov 07, 2021 Time Seen by Provider: 09:03 Events since last exam I am following him due to chest pain. He is much more awake today but still seems confused. Up related but it is difficult to tell if this is due to his hearing loss or confusion. He denies chest pain. His main complaint is neck and back pain and he wants to go home to feed his dog. He does not report dyspnea, palpitations, syncope, or ankle edema. Certain portions of this document may have been dictated utilizing voice recognition technology. Inherent to this technology, typographical and grammatical errors may exist. As much as I am diligent to identify and correct these mistakes, some errors may remain in the document. Vitals Last set of Vitals Signs Vital Signs 11/07/21 11/07/21 11/07/21 11/07/21 00:00 03:13 08:00 08:25 Temp 36.8 Pulse 87 Resp 22 B/P (MAP) 169/94 (119) Pulse Ox 92 O2 Delivery Room Air O2 Flow Rate 3.50 3.50 FiO2 2 Labs Labs Laboratory Tests 11/07/21 05:56 Exam Vital Signs Vital Signs Date Time Temp Pulse Resp B/P (MAP) Pulse Ox O2 Delivery O2 Flow Rate FiO2 11/07/21 08:25 92 Room Air 11/07/21 08:00 36.8 87 22 169/94 (119) 11/07/21 03:13 2 11/07/21 00:00 3.50 3.50 Physical Exam General: Alert but confused. No acute distress. Extreme hearing loss. Eye: No xanthelasma. HENT: Normocephalic. Neck: Jugular venous pressure does not appear elevated. Respiratory: Lungs are clear to auscultation. Respirations are non-labored. Breath sounds are equal. Symmetrical chest wall expansion. Cardiovascular: Normal rate. Regular rhythm. No murmur. No gallop. No edema. Gastrointestinal: Soft. Normal bowel sounds. Skin: Warm. Dry. Neurologic: Alert and oriented to person only. Cranial nerves 3-11 grossly intact. Psychiatric: Cooperative but confused. Labs Laboratory Tests Test 11/06/21 11:23 11/06/21 15:32 11/06/21 16:21 11/06/21 20:02 Range/Units Glucometer 70 66 L 82 73 70-110 MG/DL Test 11/07/21 05:14 11/07/21 05:56 Range/Units Glucometer 75 70-110 MG/DL White Blood Count 6.3 4.3-11.0 10^3/uL Red Blood Count 3.86 L 4.30-5.52 10^6/uL Hemoglobin 12.9 L 13.3-17.7 g/dL Hematocrit 39 L 40-54 % Mean Corpuscular Volume 101 H 80-99 fL Mean Corpuscular Hemoglobin 33 25-34 pg Mean Corpuscular Hemoglobin Concent 33 32-36 g/dL Red Cell Distribution Width 12.8 10.0-14.5 % Platelet Count 142 130-400 10^3/uL Mean Platelet Volume 9.2 9.0-12.2 fL Immature Granulocyte % (Auto) 0 % Neutrophils (%) (Auto) 78 H 42-75 % Lymphocytes (%) (Auto) 11 L 12-44 % Monocytes (%) (Auto) 9 0-12 % Eosinophils (%) (Auto) 1 0-10 % Basophils (%) (Auto) 1 0-10 % Neutrophils # (Auto) 4.9 1.8-7.8 10^3/uL Lymphocytes # (Auto) 0.7 L 1.0-4.0 10^3/uL Monocytes # (Auto) 0.6 0.0-1.0 10^3/uL Eosinophils # (Auto) 0.1 0.0-0.3 10^3/uL Basophils # (Auto) 0.0 0.0-0.1 10^3/uL Immature Granulocyte # (Auto) 0.0 0.0-0.1 10^3/uL Sodium Level 135 135-145 MMOL/L Potassium Level 4.6 3.6-5.0 MMOL/L Chloride Level 101 98-107 MMOL/L Carbon Dioxide Level 20 L 21-32 MMOL/L Anion Gap 14 5-14 MMOL/L Blood Urea Nitrogen 5 L 7-18 MG/DL Creatinine 0.59 L 0.60-1.30 MG/DL Estimat Glomerular Filtration Rate 107 BUN/Creatinine Ratio 8 Glucose Level 65 L 70-105 MG/DL Calcium Level 8.5 8.5-10.1 MG/DL Corrected Calcium 9.5 8.5-10.1 MG/DL Total Bilirubin 1.1 H 0.1-1.0 MG/DL Aspartate Amino Transf (AST/SGOT) 31 5-34 U/L Alanine Aminotransferase (ALT/SGPT) 14 0-55 U/L Alkaline Phosphatase 86 40-136 U/L Total Protein 5.8 L 6.4-8.2 GM/DL Albumin 2.7 L 3.2-4.5 GM/DL Diagnosis/Problems Diagnosis/Problems (1) Chest pain Status: Acute Assessment & Plan: As above, obtaining a history from this patient is very difficult as it has been in the past. I cannot quite gather whether or not this chest pain sounds consistent with cardiac chest pain versus noncardiac chest pain. He is being treated for pancreatitis which could certainly cause some chest pain. Nonetheless, given his cardiac risk factors, I recommend further evaluation with a nuclear stress test. I started him on low strength aspirin and restarted his outpatient dose of atorvastatin. I had him scheduled for a stress test on 11/05 but he was too confused to undergo the test. We will get this rescheduled for another day. If his stress test is abnormal, I would be inclined to treat him medically. He would not be a good candidate for revascularization due to his history of noncompliance with medication and follow-up visits. However, knowing whether or not he has evidence of coronary ischemia on a stress test will be helpful if he presents to the emergency room again in the future with chest pain. If we can get a stress test and he does have evidence of ischemia, then I would consider starting long-acting nitrates. Due to previous bradycardia, he is not a good candidate for beta-kelly. I will wait to schedule a stress test when he is more oriented. (2) Abnormal electrocardiogram Assessment & Plan: He has nonspecific ST depression on his electrocardiogram from admission but no signs of a prior infarct or obvious ischemic changes. In light of his chest pain, we will proceed with a stress test as above. However, as above, this is now on hold until his mental status improves. (3) Primary hypertension Assessment & Plan: Blood pressures are remaining elevated elevated. I will start him on a moderate dose of lisinopril. However, I am not sure that he was even taking any medication as prescribed prior to admission. I suspect he may have a tendency towards developing dehydration when he is home. This did happen to him in the past that resulted in at least one hospitalization. We may want to allow for some permissive hypertension while he is here in the hospital to help avoid hypotension when he is ultimately discharged to home. (4) Mixed hyperlipidemia Status: Chronic Assessment & Plan: He is supposed to be taking atorvastatin at home which I I have restarted. His LDL level is well controlled on blood work from this admission although unclear whether or not he was taking statin medication at home. (5) Sinus bradycardia Status: Acute Assessment & Plan: He has a previous history of profound sinus bradycardia. I had previously felt that this may have contributed to his lightheaded spells in the past. Beta-kelly and diltiazem should be avoided. (6) Cigarette smoker Assessment & Plan: He tells me he cannot remember the last time he had a cigarette although again, his history was very difficult to obtain. (7) Encephalopathy acute Assessment & Plan: He has no electrolyte derangements to explain encephalopathy although his blood sugar has been intermittently low. He has been treated for alcohol withdrawal during this admission but his alcohol level was undetectable at the time of admission. Because of the mental status changes, we will have to hold off on additional cardiac testing until this clears. The primary hospitalist is managing this condition. (8) Noncompliance with medication regimen Assessment & Plan: We need to keep this in mind when considering long-term treatment and medications. LUZ ELENA ARVIZU JR, MD Nov 07, 2021 09:04
[2021-11-07] MEDS ORDERED: lisINopril 20 MG (PRINIVIL) TABLET PO ONE (09:45)
[2021-11-07 12:00] VITALS: BP 170/76
--- NOTE | 2021-11-07 15:16 | Progress Note ---
Subjective Date Seen by a Provider: Nov 07, 2021 Time Seen by a Provider: 15:00 Subjective/Events-last exam Patient seen with Dr. No. Patient reports doing ok. Denies any abdominal pain. Tolerating clear liquid diet. Objective Exam Vital Signs Date Time Temp Pulse Resp B/P (MAP) Pulse Ox O2 Delivery O2 Flow Rate FiO2 11/07/21 12:29 90 11/07/21 12:00 36.0 75 22 170/76 (107) 94 Nasal Cannula 3.50 11/07/21 10:44 93 Nasal Cannula 3.00 11/07/21 08:25 92 Room Air 11/07/21 08:00 36.8 87 22 169/94 (119) 93 Nasal Cannula 11/07/21 06:43 82 11/07/21 04:00 37.3 84 18 170/100 (123) 92 Room Air 11/07/21 03:13 36.1 76 94 2 11/07/21 01:00 70 11/07/21 00:00 37.2 82 18 147/90 (109) 98 Nasal Cannula 3.50 3.50 11/06/21 19:51 36.1 83 18 159/93 (115) 93 Nasal Cannula 3.50 11/06/21 19:39 Nasal Cannula 2.00 11/06/21 19:15 94 Nasal Cannula 3.50 11/06/21 19:00 77 11/06/21 16:00 35.9 68 18 168/85 (112) 95 Nasal Cannula 3.50 I & O 11/07/21 06:59 Intake Total 195 ml Output Total 3900 ml Balance -3705 ml Capillary Refill : Less Than 3 Seconds General Appearance: No Apparent Distress, WD/WN Neck: Normal Inspection, Supple Respiratory: No Accessory Muscle Use, No Respiratory Distress Cardiovascular: Regular Rate, Rhythm, No Edema Gastrointestinal: normal bowel sounds, non tender, soft Extremity: Normal Inspection, Normal Range of Motion Neurologic/Psychiatric: Alert Skin: Normal Color, Warm/Dry Results Lab Laboratory Tests 11/06/21 15:32: Glucometer 66L 11/06/21 16:21: Glucometer 82 11/06/21 20:02: Glucometer 73 11/07/21 05:14: Glucometer 75 11/07/21 05:56: White Blood Count 6.3, Red Blood Count 3.86L, Hemoglobin 12.9L, Hematocrit 39L, Mean Corpuscular Volume 101H, Mean Corpuscular Hemoglobin 33, Mean Corpuscular Hemoglobin Concent 33, Red Cell Distribution Width 12.8, Platelet Count 142, Mean Platelet Volume 9.2, Immature Granulocyte % (Auto) 0, Neutrophils (%) (Auto) 78H, Lymphocytes (%) (Auto) 11L, Monocytes (%) (Auto) 9, Eosinophils (%) (Auto) 1, Basophils (%) (Auto) 1, Neutrophils # (Auto) 4.9, Lymphocytes # (Auto) 0.7L, Monocytes # (Auto) 0.6, Eosinophils # (Auto) 0.1, Basophils # (Auto) 0.0, Immature Granulocyte # (Auto) 0.0, Sodium Level 135, Potassium Level 4.6, Chloride Level 101, Carbon Dioxide Level 20L, Anion Gap 14, Blood Urea Nitrogen 5L, Creatinine 0.59L, Estimat Glomerular Filtration Rate 107, BUN/Creatinine Ratio 8, Glucose Level 65L, Calcium Level 8.5, Corrected Calcium 9.5, Total Bilirubin 1.1H, Aspartate Amino Transf (AST/SGOT) 31, Alanine Aminotransferase (ALT/SGPT) 14, Alkaline Phosphatase 86, Total Protein 5.8L, Albumin 2.7L Microbiology 11/04/21 Urine Culture - Final, Complete Klebsiella aerogenes Assessment/Plan Assessment/Plan Assess & Plan/Chief Complaint A 66 year old male with ETOH induced pancreatitis. VSS IV fluids, bowel rest, PPI. DT prophylaxis. cont clears for now until speech therapy. Clinical Quality Measures AMI/AHF: ASA po Prior to arrival: Yes TEJ CHOW PRODUCT MARKETING MANAGER Nov 07, 2021 15:16
[2021-11-07 16:00] VITALS: BP 167/96
[2021-11-07 19:23] VITALS: BP 134/85
[2021-11-08] VITALS: BP 175/95
[2021-11-08 03:56] VITALS: BP 179/84
[2021-11-08] MEDS: NS W/KCL 20 MEQ/L 1,000 ML IV SCH (04:38)
[2021-11-08] MEDS: inSUlin ASPART (NovoLOG) 1 UNIT/0.01 ML (CHARGE PER UNIT) SC SCH ×4 (05:51→20:31)
--- NOTE | 2021-11-08 06:08 | Progress Note - Hospitalist ---
Subjective HPI/CC On Admission Date Seen by Provider: Nov 08, 2021 Time Seen by Provider: 12:30 Chief complaint: Acute pancreatitis History of present illness: This is a 66-year-old white male clinic patient [facility] who has a past medical history of alcoholism who presents to the ER with complaints of chest pain and abdominal pain. ER work-up ensued patient was found to have acute pancreatitis. General surgery and cardiology consulted due to risk factors of decompensation from pancreatitis and CAD respectively. Patient is a poor historian no other details obtained. Subjective/Events-last exam Pt is much improved PT and OT ordered Discontinue catheter Hep lock IV fluid Much improved after sleeping for 3 days Review of Systems General: Fatigue, Malaise Objective Exam Vital Signs Vital Signs Date Time Temp Pulse Resp B/P (MAP) Pulse Ox O2 Delivery O2 Flow Rate FiO2 11/08/21 20:25 37.5 73 20 155/81 (105) 93 Room Air 11/08/21 10:55 3.00 11/07/21 03:13 2 Capillary Refill : Less Than 3 Seconds General Appearance: No Apparent Distress, WD/WN, Chronically ill Respiratory: Lungs Clear, Normal Breath Sounds Cardiovascular: Regular Rate, Rhythm Neurologic/Psychiatric: Alert, Oriented x3 Results/Procedures Lab Laboratory Tests 11/08/21 05:36 Patient resulted labs reviewed. Assessment/Plan Assessment and Plan Assess & Plan/Chief Complaint Assessment: Acute pancreatitis Alcoholism Alcohol withdrawal Plan: Supportive care IV fluid 11/08/2021: Supportive care PT and OT Clinical Quality Measures AMI/AHF: ASA po Prior to arrival: Yes STALIN KISER DO Nov 08, 2021 06:08
[2021-11-08 06:12] LABS: BASOPHILS % (AUTO) 0 % (0-10); EOSINOPHILS # (AUTO) 0.1 10^3/uL (0.0-0.3); EOSINOPHILS % (AUTO) 1 % (0-10); HEMATOCRIT 38 % (40-54); HEMOGLOBIN 12.6 g/dL (13.3-17.7); LYMPHOCYTES # (AUTO) 0.7 10^3/uL (1.0-4.0); LYMPHOCYTES % (AUTO) 12 % (12-44); MEAN CORPUSCULAR HEMOGLOBIN 33 pg (25-34); MEAN CORPUSCULAR HGB CONC 33 g/dL (32-36); MEAN CORPUSCULAR VOLUME 101 fL (80-99); MEAN PLATELET VOLUME 9.5 fL (9.0-12.2); MONOCYTES # (AUTO) 0.6 10^3/uL (0.0-1.0); MONOCYTES % (AUTO) 11 % (0-12); NEUTROPHILS # (AUTO) 4.3 10^3/uL (1.8-7.8); NEUTROPHILS % (AUTO) 76 % (42-75); PLATELET COUNT 146 10^3/uL (130-400); WHITE BLOOD COUNT 5.6 10^3/uL (4.3-11.0)
[2021-11-08 06:32] LABS: ALBUMIN 2.8 GM/DL (3.2-4.5); POTASSIUM 4.3 MMOL/L (3.6-5.0)
[2021-11-08 06:33] LABS: CALCIUM 8.4 MG/DL (8.5-10.1)
[2021-11-08 06:35] LABS: TOTAL PROTEIN 5.8 GM/DL (6.4-8.2)
[2021-11-08 06:36] LABS: BILIRUBIN,TOTAL 0.8 MG/DL (0.1-1.0)
[2021-11-08 06:38] LABS: CREATININE SERUM 0.6 MG/DL (0.60-1.30)
[2021-11-08 08:00] VITALS: BP 187/96
[2021-11-08] MEDS: DOCUSATE SODIUM 100 MG (COLACE) CAP PO SCH ×2 (08:08→20:11)
[2021-11-08] MEDS: ASPIRIN E.C. 81 MG (ECOTRIN) TAB PO SCH (08:08)
[2021-11-08] MEDS: PANTOPRAZOLE 40 MG (PROTONIX) VIAL IV SCH (08:09)
[2021-11-08] MEDS: cefTRIAXone 1 GM PRE-MIX 50 ML IV SCH (08:09)
[2021-11-08] MEDS ORDERED: REGADENOSON 0.4 MG/5 ML SYR (LEXISCAN) IV ONE (08:45)
[2021-11-08] MEDS ORDERED: lisINopril 20 MG (PRINIVIL) TABLET PO SCH (09:00)
--- NOTE | 2021-11-08 09:12 | Cardiology Progress Note ---
Progress Note-Cardiology Events since last exam Date Seen by Provider: Nov 08, 2021 Time Seen by Provider: 09:11 Events since last exam I am following him due to chest pain. He is awake and alert but still very difficult to obtain a history either due to some baseline confusion or extreme hearing loss. He denies chest pain. He does not report dyspnea, palpitations, syncope, or ankle edema. He wants to know when he can go home. Certain portions of this document may have been dictated utilizing voice rec ognition technology. Inherent to this technology, typographical and grammatical errors may exist. As much as I am diligent to identify and correct these mistakes, some errors may remain in the document. Vitals Last set of Vitals Signs Vital Signs 11/07/21 11/08/21 03:13 08:00 Temp 36.0 Pulse 88 Resp 18 B/P (MAP) 187/96 (126) Pulse Ox 96 O2 Delivery Nasal Cannula O2 Flow Rate 3.00 FiO2 2 Labs Labs Laboratory Tests 11/08/21 05:36 Exam Vital Signs Vital Signs Date Time Temp Pulse Resp B/P (MAP) Pulse Ox O2 Delivery O2 Flow Rate FiO2 11/08/21 08:00 36.0 88 18 187/96 (126) 96 Nasal Cannula 3.00 11/07/21 03:13 2 Physical Exam General: Alert. No acute distress. Extremely hard of hearing. Eye: No xanthelasma. HENT: Normocephalic. Neck: Jugular venous pressure does not appear elevated. Respiratory: Lungs are clear to auscultation. Respirations are non-labored. Breath sounds are equal. Symmetrical chest wall expansion. Cardiovascular: Normal rate. Regular rhythm. No murmur. No gallop. No edema. Gastrointestinal: Soft. Normal bowel sounds. Skin: Warm. Dry. Neurologic: Alert and oriented to person only. Cranial nerves 3-11 grossly intact. Psychiatric: Cooperative. Seems confused. Labs Laboratory Tests Test 11/07/21 16:03 11/07/21 20:06 11/08/21 05:35 11/08/21 05:36 Range/Units Glucometer 98 91 95 70-110 MG/DL White Blood Count 5.6 4.3-11.0 10^3/uL Red Blood Count 3.81 L 4.30-5.52 10^6/uL Hemoglobin 12.6 L 13.3-17.7 g/dL Hematocrit 38 L 40-54 % Mean Corpuscular Volume 101 H 80-99 fL Mean Corpuscular Hemoglobin 33 25-34 pg Mean Corpuscular Hemoglobin Concent 33 32-36 g/dL Red Cell Distribution Width 12.8 10.0-14.5 % Platelet Count 146 130-400 10^3/uL Mean Platelet Volume 9.5 9.0-12.2 fL Immature Granulocyte % (Auto) 0 % Neutrophils (%) (Auto) 76 H 42-75 % Lymphocytes (%) (Auto) 12 12-44 % Monocytes (%) (Auto) 11 0-12 % Eosinophils (%) (Auto) 1 0-10 % Basophils (%) (Auto) 0 0-10 % Neutrophils # (Auto) 4.3 1.8-7.8 10^3/uL Lymphocytes # (Auto) 0.7 L 1.0-4.0 10^3/uL Monocytes # (Auto) 0.6 0.0-1.0 10^3/uL Eosinophils # (Auto) 0.1 0.0-0.3 10^3/uL Basophils # (Auto) 0.0 0.0-0.1 10^3/uL Immature Granulocyte # (Auto) 0.0 0.0-0.1 10^3/uL Sodium Level 134 L 135-145 MMOL/L Potassium Level 4.3 3.6-5.0 MMOL/L Chloride Level 101 98-107 MMOL/L Carbon Dioxide Level 20 L 21-32 MMOL/L Anion Gap 13 5-14 MMOL/L Blood Urea Nitrogen 4 L 7-18 MG/DL Creatinine 0.60 0.60-1.30 MG/DL Estimat Glomerular Filtration Rate 106 BUN/Creatinine Ratio 7 Glucose Level 94 70-105 MG/DL Calcium Level 8.4 L 8.5-10.1 MG/DL Corrected Calcium 9.4 8.5-10.1 MG/DL Total Bilirubin 0.8 0.1-1.0 MG/DL Aspartate Amino Transf (AST/SGOT) 24 5-34 U/L Alanine Aminotransferase (ALT/SGPT) 13 0-55 U/L Alkaline Phosphatase 74 40-136 U/L Total Protein 5.8 L 6.4-8.2 GM/DL Albumin 2.8 L 3.2-4.5 GM/DL Diagnosis/Problems Diagnosis/Problems (1) Chest pain Status: Acute Assessment & Plan: As above, obtaining a history from this patient is very difficult as it has been in the past. I cannot quite gather whether or not this chest pain sounds consistent with cardiac chest pain versus noncardiac chest pain. He is being treated for pancreatitis which could certainly cause some chest pain. He also has chronic neck and back pain which could be causing chest pain. Nonetheless, given his cardiac risk factors, I recommend further evaluation with a nuclear stress test. I started him on low strength aspirin and restarted his outpatient dose of atorvastatin. I had him scheduled for a stress test on 11/05 but he was too confused to undergo the test. We will get this rescheduled for another day. If his stress test is abnormal, I would be inclined to treat him medically. He would not be a good candidate for revascularization due to his history of noncompliance with medication and follow-up visits. However, knowing whether or not he has evidence of coronary ischemia on a stress test will be helpful if he presents to the emergency room again in the future with chest pain. If we can get a stress test and he does have evidence of ischemia, then I would consider starting long-acting nitrates. Due to previous bradycardia, he is not a good candidate for beta-kelly. I will wait to schedule a stress test when he is more oriented. I have his stress test tentatively scheduled for Thursday. However, if he is ready to go home before then, he can be discharged home. He does not need to wait in the hospital for a stress test. I can attempt to arrange this through my office if he goes home before Thursday. Has telemetry can be discontinued at this point in time. (2) Abnormal electrocardiogram Assessment & Plan: He has nonspecific ST depression on his electrocardiogram from admission but no signs of a prior infarct or obvious ischemic changes. In light of his chest pain, we will proceed with a stress test as above. However, as above, this is now on hold until his mental status improves. (3) Primary hypertension Assessment & Plan: Blood pressures are remaining elevated elevated. I started him on a moderate dose of lisinopril on 11/07 but his blood pressure still remains quite elevated. I will increase the dose of lisinopril to 40 mg daily and give him an extra dose of 20 mg today so that he receives a total of 40 mg today. I suspect he may have a tendency towards developing dehydration when he is home. This did happen to him in the past that resulted in at least one hospitalization. We may want to allow for some permissive hypertension while he is here in the hospital to help avoid hypotension when he is ultimately discharged to home. (4) Mixed hyperlipidemia Status: Chronic Assessment & Plan: He is supposed to be taking atorvastatin at home which I restarted. His LDL level is well controlled on blood work from this admission although unclear whether or not he was taking statin medication at home. (5) Sinus bradycardia Status: Acute Assessment & Plan: He has a previous history of profound sinus bradycardia. I had previously felt that this may have contributed to his lightheaded spells in the past. Beta-kelly and diltiazem should be avoided. (6) Cigarette smoker Assessment & Plan: He tells me he cannot remember the last time he had a cigare tte although again, his history was very difficult to obtain. (7) Encephalopathy acute Assessment & Plan: He has no electrolyte derangements to explain encephalopathy although his blood sugar has been intermittently low. He has been treated for alcohol withdrawal during this admission but his alcohol level was undetectable at the time of admission. Because of the mental status changes, we will have to hold off on additional cardiac testing until this clears. The primary hospitalist is managing this condition. (8) Noncompliance with medication regimen Assessment & Plan: We need to keep this in mind when considering long-term treatment and medications. LUZ ELENA ARVIZU JR, MD Nov 08, 2021 09:12
[2021-11-08] MEDS: SENNOSIDES 8.6 MG (SENOKOT) TAB PO SCH ×2 (09:14→20:11)
[2021-11-08] MEDS: ENOXAPARIN 40 MG/0.4 ML (LOVENOX) SYR SC SCH (09:15)
[2021-11-08] MEDS ORDERED: lisINopril 20 MG (PRINIVIL) TABLET PO ONE (09:30)
--- NOTE | 2021-11-08 11:01 | Progress Note ---
Subjective Date Seen by a Provider: Nov 08, 2021 Time Seen by a Provider: 11:00 Subjective/Events-last exam doing ok. weak with limited ambulatory ability. tolerating diet. no fev er/chills. Objective Exam Vital Signs Date Time Temp Pulse Resp B/P (MAP) Pulse Ox O2 Delivery O2 Flow Rate FiO2 11/08/21 10:55 92 Nasal Cannula 3.00 11/08/21 08:00 Room Air 11/08/21 08:00 36.0 88 18 187/96 (126) 96 Nasal Cannula 3.00 11/08/21 07:00 70 11/08/21 03:56 37.5 68 18 179/84 (115) 95 Nasal Cannula 3.00 11/08/21 01:00 53 11/08/21 00:00 36.6 67 19 175/95 (121) 95 Nasal Cannula 3.00 11/07/21 20:59 Room Air 11/07/21 19:23 36.1 76 18 134/85 (101) 94 Nasal Cannula 3.00 11/07/21 19:06 92 Nasal Cannula 3.00 11/07/21 19:00 67 11/07/21 16:00 35.9 74 18 167/96 (119) 96 Nasal Cannula 3.00 11/07/21 12:29 90 11/07/21 12:00 36.0 75 22 170/76 (107) 94 Nasal Cannula 3.50 I & O 11/08/21 07:00 Intake Total 1920 ml Output Total 2775 ml Balance -855 ml Capillary Refill : Less Than 3 Seconds General Appearance: No Apparent Distress HEENT: PERRL/EOMI Neck: Full Range of Motion Respiratory: Chest Non Tender, Decreased Breath Sounds Cardiovascular: Regular Rate, Rhythm Gastrointestinal: soft, tenderness Extremity: Normal Capillary Refill Neurologic/Psychiatric: Alert, Oriented x3 Skin: Normal Color Lymphatic: No Adenopathy Results Lab Laboratory Tests 11/07/21 16:03: Glucometer 98 11/07/21 20:06: Glucometer 91 11/08/21 05:35: Glucometer 95 11/08/21 05:36: White Blood Count 5.6, Red Blood Count 3.81L, Hemoglobin 12.6L, Hematocrit 38L, Mean Corpuscular Volume 101H, Mean Corpuscular Hemoglobin 33, Mean Corpuscular Hemoglobin Concent 33, Red Cell Distribution Width 12.8, Platelet Count 146, Mean Platelet Volume 9.5, Immature Granulocyte % (Auto) 0, Neutrophils (%) (Auto) 76H, Lymphocytes (%) (Auto) 12, Monocytes (%) (Auto) 11, Eosinophils (%) (Auto) 1, Basophils (%) (Auto) 0, Neutrophils # (Auto) 4.3, Lymphocytes # (Auto) 0.7L, Monocytes # (Auto) 0.6, Eosinophils # (Auto) 0.1, Basophils # (Auto) 0.0, Immature Granulocyte # (Auto) 0.0, Sodium Level 134L, Potassium Level 4.3, Chloride Level 101, Carbon Dioxide Level 20L, Anion Gap 13, Blood Urea Nitrogen 4L, Creatinine 0.60, Estimat Glomerular Filtration Rate 106, BUN/Creatinine Ratio 7, Glucose Level 94, Calcium Level 8.4L, Corrected Calcium 9.4, Total Bilirubin 0.8, Aspartate Amino Transf (AST/SGOT) 24, Alanine Aminotransferase (ALT/SGPT) 13, Alkaline Phosphatase 74, Total Protein 5.8L, Albumin 2.8L Microbiology 11/04/21 Urine Culture - Final, Complete Klebsiella aerogenes Assessment/Plan Assessment/Plan Assess & Plan/Chief Complaint ETOH induced pancreatitis. IV fluids, bowel rest, PPI. DT prophylaxis. cont clears for now until speech therapy continues with repeat testing and therapy. Clinical Quality Measures AMI/AHF: ASA po Prior to arrival: Yes RIK BRADY MD Nov 08, 2021 11:01
--- NOTE | 2021-11-08 11:38 | Speech Therapy Daily Note ---
Speech Daily Progress Note Subjective Date Seen by Provider: Nov 08, 2021 Time Seen by Provider: 10:50 The patient was seated upright in his bed, awake and alert upon entrance to his room by the clinician. The patient greeted the clinician appropriately and was agreeable to participation in the dysphagia treatment session. The patient was consuming pills via water upon entrance (administered by RN). Overt s/s of suspected aspiration were not demonstrated with pill administration. The patient's RN reported the patient has tolerated pill administration well. Objective The patient's confusion appears decreased on this date. The appearance of confusion may be compounded by the patient's significant hard of hearing status. Elevated vocal intensity is required for participation in the evaluation. The patient consumes multiple straw drinks of thin liquid (water and Sprite), four teaspoons of pudding, and two saltine crackers. The patient demonstrated one delayed throat clear following a straw drink of Sprite. To note, the patient does display a throat clearing behavior at baseline. Additional overt s/s of suspected aspiration were not demonstrated with additional P.O. trials. The patient's vocal quality remained consistently clear throughout the evaluation and following P.O. trials. Per patient, "I don't know what all this swallowing stuff is all about. I eat cheeseburgers, pork chops, all of it." Recommendations: - Following physician clearance from a clear liquid diet, the patient appears to tolerate: - Dysphagia two consistency diet with thin liquids, as tolerated. - Fully upright and alert for P.O. intake. - Small, single bites and sips. - Monitor for s/s of suspected aspiration with P.O. intake. If demonstrated, contact speech pathology. - Speech pathology to assess diet tolerance two times weekly or as appropriate. The results and recommendations were discussed with the patient and the patient's RN immediately following the evaluation. Assessment Assessment Current Status: Fair Progress Treatment Plan Continue Plan of Care Speech Short Term Goals Short Term Goals Short Term Goals 1. The patient will appropriately participate in a clinical bedside swallowing evaluation for determination of the least restrictive diet consistency. Time Frame-STG: Three Days. Speech Seafood Technology Specialist Goals Seafood Technology Specialist Goals 1. The patient will tolerate the least restrictive diet consistency without s/s of suspected aspiration. Time Frame: One Week. Speech-Plan Treatment Plan Speech Therapy Treatment Plan: Continue Plan of Care Treatment Duration: Nov 14, 2021 Frequency: 2 times per week Estimated Hrs Per Day: .25 hour per day Rehab Potential: Poor Safety Risks/Education Teaching Recipient: Patient Teaching Methods: Discussion Response to Teaching: Verbalize Understanding Education Topics Provided: Results and Recommendations, Safe Swallowing Strategies Time Speech Therapy Time In: 10:50 Speech Therapy Time Out: 11:07 Total Billed Time: 17 Billed Treatment Time 1BEBETO OSCAR MARI Nov 08, 2021 11:38
[2021-11-08 12:00] VITALS: BP 137/78
--- NOTE | 2021-11-08 13:01 | Physical Therapy Daily Note ---
PT Daily Note-Current Subjective Nursing was with patient prior to tx. Patient consented to PT. Pain Location: No Pain Reported Comment: no pain verbalized Mental Status Patient Orientation: Person, Place, Situation Attachments: Oxygen, Parada Catheter Transfers SCALE: Activities may be completed with or without assistive devices. 7-Grhnnapctg-kpseafd completes the activity by him/herself with no assistance from a helper. 5-Set-up or Clean-up Assistance-helper sets up or cleans up; patient completes activity. [place] assists only prior to or following the activity. 4-Supervision or Touching Assistance-helper provides verbal cues and/or touching/steadying and/or contact guard assistance as patient completes activity. Assistance may be provided throughout the activity or intermittently. 3-Partial/Moderate Assistance-helper does LESS THAN HALF the effort. [place] lifts, holds or supports trunk or limbs, but provides less than half the effort. 2-Substantial/Maximal Assistance-helper does MORE THAN HALF the effort. [place] lifts or holds trunk or limbs and provides more than half the effort. 1-Tgytlchmh-kjzfzj does ALL the effort. Patient does none of the effort to complete the activity. Or, the assistance of 2 or more helpers is required for the patient to complete the activity. If activity was not attempted, code reason: 7-Patient Refused. 9-Not Applicable-not attempted and the patient did not perform the activity before the current illness, exacerbation or injury. 10-Not Attempted due to Environmental Limitations-(lack of equipment, weather restraints, etc.). 88-Not Attempted due to Medical Conditions or Safety Concerns. Lying to Sitting/Side of Bed(Q: 5 Sit to Stand (QC): 5 Gait Training Does the Patient Walk?: Yes Distance: 10' Walk 10 feet (QC): 4 Gait Assistive Device: FWW Wheelchair Training Does the Pt Use a Wheelchair?: No Type of Wheelchair: N/A Treatments Ambulation, transfers Assessment Current Status: Fair Progress Patient was had difficulty following directions, secondary to difficulty of hearing. Patient was SBA with transfers, and ambulation. PT Plan Problem List Problem List: Activity Tolerance, Functional Strength, Safety, Balance, Gait, Transfer, ROM Treatment/Plan Treatment Plan: Continue Plan of Care Treatment Plan: Education, Functional Activity Lizett, Functional Strength, Gait, Safety, Therapeutic Exercise, Transfers Treatment Duration: Oct 25, 2021 Frequency: 6 times per week Estimated Hrs Per Day: .25 hour per day MAG ZULETA PT Nov 08, 2021 13:01
--- NOTE | 2021-11-08 13:08 | Physical Therapy Evaluation ---
PT Evaluation-General Medical Diagnosis Admission Date Nov 04, 2021 at 09:23 Medical Diagnosis: Acute Pancreatitis Onset Date: Nov 04, 2021 Therapy Diagnosis Therapy Diagnosis: Impaired Strength, activity tolerance Height/Weight Height (Feet): 5 Height (Inches): 6.00 Weight (Pounds): 130 Weight (Ounces): 2.0 Precautions Precautions/Isolations: Fall Prevention, Standard Precautions Weight Bear Status Full Weight Bearing Full Weight Bearing Referral Physician: Jose Reason for Referral: Evaluation/Treatment Medical History Pertinent Medical History: Alcoholism, Arthritis, CAD, GERD, HTN, Smoking Current History EMS secondary to CP Reviewed History: Yes Social History Home: Single Level Prior Prior Level of Function SCALE: Activities may be completed with or without assistive devices. 6-Jsptieiatg-zlcoihb completes the activity by him/herself with no assistance from a helper. 5-Set-up or Clean-up Assistance-helper sets up or cleans up; patient completes activity. [place] assists only prior to or following the activity. 4-Supervision or Touching Assistance-helper provides verbal cues and/or touching/steadying and/or contact guard assistance as patient completes activity. Assistance may be provided throughout the activity or intermittently. 3-Partial/Moderate Assistance-helper does LESS THAN HALF the effort. [place] lifts, holds or supports trunk or limbs, but provides less than half the effort. 2-Substantial/Maximal Assistance-helper does MORE THAN HALF the effort. [place] lifts or holds trunk or limbs and provides more than half the effort. 4-Tugbvmsdz-yqbxxq does ALL the effort. Patient does none of the effort to complete the activity. Or, the assistance of 2 or more helpers is required for the patient to complete the activity. If activity was not attempted, code reason: 7-Patient Refused. 9-Not Applicable-not attempted and the patient did not perform the activity before the current illness, exacerbation or injury. 10-Not Attempted due to Environmental Limitations-(lack of equipment, weather restraints, etc.). 88-Not Attempted due to Medical Conditions or Safety Concerns. Bed Mobility: 6 Transfers (B,C,W/C): 6 Gait: 6 Stairs: 6 Indoor Mobility (Ambulation): Independent Stairs: Independent PT Evaluation-Current Subjective Patient was with nursing upon entering and consented to PT Objective Patient Orientation: Person, Place, Situation Attachments: Parada Catheter, IV chair alarm ROM/Strength ROM Lower Extremities Grossly Bilaterally WFL Strength Lower Extremities Grossly Bilaterally WFL Neuromuscular (Tone, Coordination, Reflexes) Grossly intact Sensory Vision: Functional Hearing: Impaired Transfers Roll Left to Right (QC): 4 Lying to Sitting/Side of Bed(Q: 4 Sit to Stand (QC): 4 Gait Does the Patient Walk?: Yes Mode of Locomotion: Walk Anticipated Mode of Locomotion: Walk Walk 10 feet (QC): 4 Distance: 10' Gait Assistive Device: FWW Wheelchair Training Does the Pt Use a Wheelchair?: No Balance Sitting Static: Normal Sitting Dynamic: Good Standing Static: Good Standing Dynamic: Good Assessment/Needs Patient had difficulty following instructions secondary to hearing difficulties. Patient demonstrated good strength with transfers and walking, requiring only SBA. Patient was left in chair with tray, call light, and all needs met. Rehab Potential: Fair PT Scada Operator Goals Alf Goals PT Scada Operator Goals Time Frame: Nov 22, 2021 Roll Left & Right (QC): 6 Sit to Lying (QC): 6 Lying-Sitting on Side/Bed(QC): 6 Sit to Stand (QC): 6 Chair/Bcu-ne-Omiag Xfer(QC): 6 Toilet Transfer (QC): 6 Car Transfer (QC): 6 Does the Patient Walk: Yes Walk 10 feet (QC): 6 Walk 50ft with 2 Turns (QC): 6 Walk 150 ft (QC): 6 Does the Pt use WC or Scooter?: No Type: N/A Type: N/A PT Plan Problem List Problem List: Activity Tolerance, Functional Strength, Safety, Balance, Gait, Transfer, Bed Mobility Treatment/Plan Treatment Plan: Continue Plan of Care Treatment Plan: Education, Functional Activity Lizett, Functional Strength, Gait, Safety, Therapeutic Exercise, Transfers Treatment Duration: Nov 22, 2021 Frequency: 6 times per week Estimated Hrs Per Day: .25 hour per day Safety Risks/Education Patient Education: Gait Training, Transfer Techniques, Correct Positioning, Safety Issues Teaching Recipient: Patient Teaching Methods: Discussion Response to Teaching: Verbalize Understanding Time/GCodes Time In: 1233 Time Out: 1243 Total Billed Treatment Time: 10 Total Billed Treatment 1 Visit EV Low 10min MAG ZULETA PT Nov 08, 2021 13:08
--- NOTE | 2021-11-08 13:21 | Occupational Therapy Eval ---
OT Evaluation-General/PLF Medical Diagnosis Admission Date Nov 04, 2021 at 09:23 Medical Diagnosis: Acute Pancreatitis Onset Date: Nov 04, 2021 Therapy Diagnosis Therapy Diagnosis: decreased ADL status Height/Weight Height (Feet): 5 Height (Inches): 6.00 Weight (Pounds): 130 Weight (Ounces): 2.0 Precautions Precautions/Isolations: Fall Prevention, Standard Precautions Referral Physician: Jose Referral Reason: Evaluation/Treatment Medical History Pertinent Medical History: Arthritis, CAD, GERD, HTN, Smoking Additional Medical History chronic bronchitis, CAD, HTN, syncope, TIA, GERD, DDD, arthritis, dysphagia, skin cancer, anxiety, depression, suicide attempts. Current History ED 11/04/21 via EMS with heavy, sharp chest pain that radiates to his back for 4- 5 hours. Social History Home: Single Level Current Living Status: Alone Entry Into Home: Level Entry ADL-Prior Level of Function SCALE: Activities may be completed with or without assistive devices. 8-Ckyeefktuu-frubcfd completes the activity by him/herself with no assistance from a helper. 5-Set-up or Clean-up Assistance-helper sets up or cleans up; patient completes activity. [place] assists only prior to or following the activity. 4-Supervision or Touching Assistance-helper provides verbal cues and/or touching/steadying and/or contact guard assistance as patient completes activity. Assistance may be provided throughout the activity or intermittently. 3-Partial/Moderate Assistance-helper does LESS THAN HALF the effort. [place] lifts, holds or supports trunk or limbs, but provides less than half the effort. 2-Substantial/Maximal Assistance-helper does MORE THAN HALF the effort. [place] lifts or holds trunk or limbs and provides more than half the effort. 3-Fiykhcmuu-bpybow does ALL the effort. Patient does none of the effort to complete the activity. Or, the assistance of 2 or more helpers is required for the patient to complete the activity. If activity was not attempted, code reason: 7-Patient Refused. 9-Not Applicable-not attempted and the patient did not perform the activity before the current illness, exacerbation or injury. 10-Not Attempted due to Environmental Limitations-(lack of equipment, weather restraints, etc.). 88-Not Attempted due to Medical Conditions or Safety Concerns. ADL PLOF Comments Pt reports IND with ADLs at PLOF using a cane. Self Care: Independent Functional Cognition: Independent DME/Equipment Comments cane OT Current Status Subjective Pt up in recliner eating lunch, agreeable to OT Tx. Telesitter present. Mental Status/Objective Patient Orientation: Person, Confused Current Upper Extremity ROM WFL, BUE shoulder flexion to approx 160 degrees Upper Extremity Strength grossly 3/5 ADL-Treatment Eating (QC): 5 (set up with dysphagia 2 diet) Oral Hygiene (QC): 4 (per clinical judgment.) Other Treatments Pt up in recliner, very SUN'AQ. Pt had difficulty with hearing OT, often answering a question similar to the topic, but not fully answering the question as he didn't hear the question completely. Pt participated in UE screening and provided information about PLOF and home set up to his ability. Pt continued eating lunch throughout tx, able to bring milk carton to his lips with BUEs in order to take drink, pt able to use utensils to eat dysphagia 2 diet. Per PT report, pt required SBA with transfers and mobility using FWW (10'). Post tx, pt in bed, call light in reach and all needs met. telesitter present. Education OT Patient Education: Correct positioning, Energy conservation, Modified ADL techniques, Progress toward Goal/Update tx plan, Purpose of tx/functional activities, Rehab process Teaching Recipient: Patient Teaching Methods: Discussion Response to Teaching: Verbalize Understanding OT Day Trader Goals Retirement Goals Time Frame: Nov 15, 2021 Eating (QC): 6 Oral Hygiene (QC): 6 Toileting Hygiene (QC): 4 Shower/Bathe Self (QC): 4 Upper Body Dressing (QC): 5 Lower Body Dressing (QC): 4 On/Off Footwear (QC): 4 Additional Goals: 1-Demonstrate ADL Tasks, 2-Verbalize Understanding, 3- ImproveStrength/Lizett 1=Demonstrate adherence to instructed precautions during ADL tasks. 2=Patient will verbalize/demonstrate understanding of assistive devices/modifications for ADL. 3=Patient will improve strength/tolerance for activity to enable patient to perform ADL's. OT Education/Plan Problem List/Assessment Assessment: Decreased Activ Tolerance, Decreased Safety Aware, Decreased UE Strength, Impaired Cognition, Impaired Coordination, Impaired Funct Balance, Impaired I ADL's, Impaired Self-Care Skills Discharge Recommendations Plan/Recommendations: Continue POC Treatment Plan/Plan of Care Patient would benefit from OT for education, treatment and training to promote independence in ADL's, mobility, safety and/or upper extremity function for ADL' s. Plan of Care: ADL Retraining, Functional Mobility, UE Funct Exercise/Act Treatment Duration: Nov 15, 2021 Frequency: 3 times per week (3-5 times per week) Estimated Hrs Per Day: .25 hour per day Agreement: Yes Rehab Potential: Fair Time/GCodes Start Time: 12:55 Stop Time: 13:05 Total Time Billed (hr/min): 10 Billed Treatment Time 1, RENE RENEE OT Nov 08, 2021 13:21
[2021-11-08 17:00] VITALS: BP 156/77
[2021-11-08] MEDS: PANTOPRAZOLE 40 MG (PROTONIX) TAB PO SCH (20:11)
[2021-11-08 20:25] VITALS: BP 155/81
[2021-11-09] VITALS (7 sets, daily range): BP systolic 139–172; BP diastolic 77–101
[2021-11-09] MEDS: inSUlin ASPART (NovoLOG) 1 UNIT/0.01 ML (CHARGE PER UNIT) SC SCH ×4 (05:57→20:21)
[2021-11-09 06:08] LABS: BASOPHILS % (AUTO) 1 % (0-10); EOSINOPHILS # (AUTO) 0.1 10^3/uL (0.0-0.3); EOSINOPHILS % (AUTO) 1 % (0-10); HEMATOCRIT 38 % (40-54); HEMOGLOBIN 12.5 g/dL (13.3-17.7); LYMPHOCYTES # (AUTO) 0.8 10^3/uL (1.0-4.0); LYMPHOCYTES % (AUTO) 13 % (12-44); MEAN CORPUSCULAR HEMOGLOBIN 33 pg (25-34); MEAN CORPUSCULAR HGB CONC 33 g/dL (32-36); MEAN CORPUSCULAR VOLUME 98 fL (80-99); MEAN PLATELET VOLUME 9.3 fL (9.0-12.2); MONOCYTES # (AUTO) 0.8 10^3/uL (0.0-1.0); MONOCYTES % (AUTO) 13 % (0-12); NEUTROPHILS # (AUTO) 4.5 10^3/uL (1.8-7.8); NEUTROPHILS % (AUTO) 72 % (42-75); PLATELET COUNT 187 10^3/uL (130-400); WHITE BLOOD COUNT 6.3 10^3/uL (4.3-11.0)
[2021-11-09 06:28] LABS: POTASSIUM 3.6 MMOL/L (3.6-5.0)
[2021-11-09 06:29] LABS: CALCIUM 8.8 MG/DL (8.5-10.1)
[2021-11-09 06:30] LABS: TOTAL PROTEIN 6.1 GM/DL (6.4-8.2)
[2021-11-09 06:32] LABS: BILIRUBIN,TOTAL 0.8 MG/DL (0.1-1.0)
[2021-11-09 06:34] LABS: CREATININE SERUM 0.62 MG/DL (0.60-1.30)
[2021-11-09] MEDS: DOCUSATE SODIUM 100 MG (COLACE) CAP PO SCH ×2 (08:32→20:21)
[2021-11-09] MEDS: cefTRIAXone 1 GM PRE-MIX 50 ML IV SCH (08:32)
[2021-11-09] MEDS: SENNOSIDES 8.6 MG (SENOKOT) TAB PO SCH ×2 (08:32→20:21)
[2021-11-09] MEDS: PANTOPRAZOLE 40 MG (PROTONIX) TAB PO SCH ×2 (08:33→20:21)
[2021-11-09] MEDS: ASPIRIN E.C. 81 MG (ECOTRIN) TAB PO SCH (08:33)
[2021-11-09] MEDS: ENOXAPARIN 40 MG/0.4 ML (LOVENOX) SYR SC SCH (08:33)
[2021-11-09] MEDS: lisINopril 20 MG (PRINIVIL) TABLET PO SCH (08:33)
--- NOTE | 2021-11-09 09:10 | Physical Therapy Daily Note ---
PT Daily Note-Current Subjective Pt sitting up in bed finishing breakfast upon arrival to room, pt agreeable to PT treatment. Appearance Following session. pt sitting up in chair with call light, tray table and phone within reach. Chair alarm activated, all needs met at this time, Mental Status Patient Orientation: Person Attachments: Parada Catheter Transfers SCALE: Activities may be completed with or without assistive devices. 8-Dcwmuuwcwo-nybnfzk completes the activity by him/herself with no assistance from a helper. 5-Set-up or Clean-up Assistance-helper sets up or cleans up; patient completes activity. [place] assists only prior to or following the activity. 4-Supervision or Touching Assistance-helper provides verbal cues and/or harry stephanie/steadying and/or contact guard assistance as patient completes activity. Assistance may be provided throughout the activity or intermittently. 3-Partial/Moderate Assistance-helper does LESS THAN HALF the effort. [place] lifts, holds or supports trunk or limbs, but provides less than half the effort. 2-Substantial/Maximal Assistance-helper does MORE THAN HALF the effort. [place] lifts or holds trunk or limbs and provides more than half the effort. 5-Dinjzfxhv-cjdtos does ALL the effort. Patient does none of the effort to complete the activity. Or, the assistance of 2 or more helpers is required for the patient to complete the activity. If activity was not attempted, code reason: 7-Patient Refused. 9-Not Applicable-not attempted and the patient did not perform the activity before the current illness, exacerbation or injury. 10-Not Attempted due to Environmental Limitations-(lack of equipment, weather restraints, etc.). 88-Not Attempted due to Medical Conditions or Safety Concerns. Roll Left & Right (QC): 4 Sit to Lying (QC): 4 Sit to Stand (QC): 4 Weight Bearing Full Weight Bearing Full Weight Bearing Gait Training Distance: 300' Walk 10 feet (QC): 4 Walk 50 ft with 2 Turns(QC): 4 Walk 150 ft (QC): 4 Gait Assistive Device: FWW Pt required occasional cueing for wider LILLY, as he occasionally had scissoring gait. Pt tolerated well, no LOB noted. Assessment Current Status: Good Progress Pt able to increase ambulation distance this date, no LOB noted. PT Chief Cloth Finishing Range Operator Goals Penitentiary Goals PT Penitentiary Goals Time Frame: Nov 22, 2021 Roll Left & Right (QC): 6 Sit to Lying (QC): 6 Lying-Sitting on Side/Bed(QC): 6 Sit to Stand (QC): 6 Chair/Fil-es-Zqagj Xfer(QC): 6 Toilet Transfer (QC): 6 Car Transfer (QC): 6 Does the Patient Walk: Yes Walk 10 feet (QC): 6 Walk 50ft with 2 Turns (QC): 6 Walk 150 ft (QC): 6 Does the Pt use WC or Scooter?: No Type: N/A Type: N/A PT Plan Problem List Problem List: Activity Tolerance, Functional Strength, Safety, Balance, Gait, Transfer, Bed Mobility, ROM Treatment/Plan Treatment Plan: Continue Plan of Care Treatment Plan: Education, Functional Activity Lizett, Functional Strength, Gait, Safety, Therapeutic Exercise, Transfers Treatment Duration: Nov 22, 2021 Frequency: 6 times per week Estimated Hrs Per Day: .25 hour per day Time/GCodes Time In: 810 Time Out: 823 Total Billed Treatment 1 visit GT (10') JN GALAN PT Nov 09, 2021 09:10
--- NOTE | 2021-11-09 09:40 | Progress Note - Surgery ---
RUTHIE PETERS 11/09/21 0940: Subjective Date Seen by a Provider: Nov 09, 2021 Time Seen by a Provider: 09:06 Subjective/Events-last exam Pt reports that he is doing well this morning and is improving. States that his epigastric pain is a 6/10 and seems to be controlled with pain medication. He is on a regular diet which he says he is tolerating well. Denies any nausea, vomiting, or diarrhea. Reports that he has been getting up and walking, says that it is going well. Denies having any other concerns when asked. Review of Systems General: No Chills, No Night Sweats HEENT: No Head Aches, No Visual Changes Pulmonary: No Dyspnea, No Cough Cardiovascular: No: Chest Pain, Palpitations Gastrointestinal: Abdominal Pain; No: Nausea, Vomiting, Diarrhea Genitourinary: No Dysuria, No Frequency Musculoskeletal: No: neck pain, back pain Neurological: No: Weakness, Numbness Objective Exam Vital Signs Date Time Temp Pulse Resp B/P (MAP) Pulse Ox O2 Delivery O2 Flow Rate FiO2 11/09/21 08:44 Room Air 11/09/21 08:00 37.6 86 18 139/101 (114) 96 Room Air 11/09/21 07:00 75 11/09/21 04:00 36.9 73 19 165/90 (115) 93 Room Air 11/09/21 01:00 67 11/09/21 00:00 36.8 79 17 159/79 (105) 94 Room Air 11/08/21 21:19 93 Nasal Cannula 3.00 11/08/21 20:25 37.5 73 20 155/81 (105) 93 Room Air 11/08/21 20:20 Room Air 11/08/21 19:00 77 11/08/21 17:00 37.5 62 17 156/77 (103) 92 Room Air 11/08/21 12:29 70 11/08/21 12:00 36.7 59 18 137/78 (97) 97 Room Air 11/08/21 11:32 96 Room Air 11/08/21 10:55 92 Nasal Cannula 3.00 I & O 11/09/21 07:00 Intake Total 1390 ml Output Total 1875 ml Balance -485 ml Capillary Refill : Less Than 3 Seconds General Appearance: No Apparent Distress, WD/WN, Chronically ill Neck: Non Tender, Supple Respiratory: Lungs Clear, Normal Breath Sounds, No Accessory Muscle Use, No Respiratory Distress Cardiovascular: Regular Rate, Rhythm, No Murmur, Normal Peripheral Pulses Gastrointestinal: soft, tenderness (RUQ and LUQ, worse over epigastric region) Extremity: Normal Capillary Refill, Non Tender, No Calf Tenderness, No Pedal Edema Neurologic/Psychiatric: Alert, Oriented x3 Skin: Normal Color, Warm/Dry Lymphatic: No Adenopathy (cervical ) Results Lab Laboratory Tests 11/08/21 11:09: Glucometer 135H 11/08/21 17:03: Glucometer 115H 11/08/21 20:26: Glucometer 135H 11/09/21 05:16: Glucometer 130H 11/09/21 05:26: White Blood Count 6.3, Red Blood Count 3.81L, Hemoglobin 12.5L, Hematocrit 38L, Mean Corpuscular Volume 98, Mean Corpuscular Hemoglobin 33, Mean Corpuscular Hemoglobin Concent 33, Red Cell Distribution Width 13.1, Platelet Count 187, Mean Platelet Volume 9.3, Immature Granulocyte % (Auto) 1, Neutrophils (%) (Auto) 72, Lymphocytes (%) (Auto) 13, Monocytes (%) (Auto) 13H, Eosinophils (%) (Auto) 1, Basophils (%) (Auto) 1, Neutrophils # (Auto) 4.5, Lymphocytes # (Auto) 0.8L, Monocytes # (Auto) 0.8, Eosinophils # (Auto) 0.1, Basophils # (Auto) 0.0, Immature Granulocyte # (Auto) 0.0, Sodium Level 134L, Potassium Level 3.6, Chloride Level 101, Carbon Dioxide Level 21, Anion Gap 12, Blood Urea Nitrogen 4L, Creatinine 0.62, Estimat Glomerular Filtration Rate 105, BUN/Creatinine Ratio 6, Glucose Level 109H, Calcium Level 8.8, Corrected Calcium 9.6, Total Bilirubin 0.8, Aspartate Amino Transf (AST/SGOT) 19, Alanine Aminotransferase (ALT/SGPT) 13, Alkaline Phosphatase 78, Total Protein 6.1L, Albumin 3.0L Microbiology 11/04/21 Urine Culture - Final, Complete Klebsiella aerogenes Assessment/Plan Assessment/Plan Assessment/Plan ETOH induced pancreatitis. Alcoholism Alcohol withdrawal Plan Continue IV fluids, pain control, protonix, sliding scale insulin On CIWA protocol Continue Lovenox for DVT prophylaxis Tolerating regular diet well, continue PT Clinical Quality Measures AMI/AHF: ASA po Prior to arrival: Yes FLORECITA ROMERO DO 11/10/21 1320: Subjective Subjective/Events-last exam Patient still with epigastric abdominal pain. Pain medication is keeping it fairly under control. He is tolerating diet. He is not having nausea or vomiting no fever sweats chills shortness of breath or chest pain at this time. Objective Exam General Appearance: No Apparent Distress, Chronically ill HEENT: PERRL/EOMI, Normal ENT Inspection, Other (Hard of hearing) Neck: Non Tender, Supple Respiratory: Chest Non Tender, No Accessory Muscle Use, No Respiratory Distress Cardiovascular: Regular Rate, Rhythm, No JVD Gastrointestinal: soft, tenderness (RUQ and LUQ, worse over epigastric region) Extremity: Normal Capillary Refill, Non Tender, No Calf Tenderness Neurologic/Psychiatric: Alert, Oriented x3 Skin: Normal Color, Warm/Dry Lymphatic: No Adenopathy (cervical ) Assessment/Plan Assessment/Plan Assessment/Plan ETOH induced pancreatitis. Alcoholism Alcohol withdrawal Chest pain Plan Continue IV fluids, pain control, protonix, sliding scale insulin On CIWA protocol Continue Lovenox for DVT prophylaxis Tolerating regular diet well, continue PT Stress test planned Thursday. Supervisory-Addendum Brief Verification & Attestation Participated in pt care: history, MDM, physical Personally performed: exam, history, MDM, supervision of care Care discussed with: Medical Student Procedures: n/a Results interpretation: Verified all documentation Verification and Attestation of Medical Student E/M Service A medical student performed and documented this service in my presence. I reviewed and verified all information documented by the medical student and made modifications to such information, when appropriate. I personally performed the physical exam and medical decision making. Florecita Romero, Nov 09, 2021,13:20 RUTHIE PETERS Nov 09, 2021 09:40 FLORECITA ROMERO DO Nov 10, 2021 13:20
--- NOTE | 2021-11-09 10:46 | Progress Note - Hospitalist ---
Subjective HPI/CC On Admission Date Seen by Provider: Nov 09, 2021 Time Seen by Provider: 10:00 Chief complaint: Acute pancreatitis History of present illness: This is a 66-year-old white male clinic patient [facility] who has a past medical history of alcoholism who presents to the ER with complaints of chest pain and abdominal pain. ER work-up ensued patient was found to have acute pancreatitis. General surgery and cardiology consulted due to risk factors of decompensation from pancreatitis and CAD respectively. Patient is a poor historian no other details obtained. Subjective/Events-last exam Patient reports abdominal pain about a 4 out of 10 which is improved. He denies confusion but nursing staff report that there was some confusion last night without agitation and he was easily redirected. He denies dysuria and denies chest pain with chronic neck and low back pain longstanding. Objective Exam Vital Signs Vital Signs Date Time Temp Pulse Resp B/P (MAP) Pulse Ox O2 Delivery O2 Flow Rate FiO2 11/09/21 08:44 Room Air 11/09/21 08:00 37.6 86 18 139/101 (114) 96 11/08/21 21:19 3.00 11/07/21 03:13 2 Capillary Refill : Less Than 3 Seconds General Appearance: No Apparent Distress Respiratory: Chest Non Tender, Lungs Clear, Normal Breath Sounds, No Accessory Muscle Use, No Respiratory Distress Cardiovascular: Regular Rate, Rhythm, No Edema, No Gallop, No JVD, No Murmur, Normal Peripheral Pulses Gastrointestinal: Other (Epigastric and periumbilical discomfort to palpation abdomen is somewhat firm diffusely there is no rebound or guarding bowel sounds are positive. ) Extremity: Normal Inspection, No Pedal Edema Results/Procedures Lab Laboratory Tests 11/09/21 05:26 Patient resulted labs reviewed. Assessment/Plan Assessment and Plan Assess & Plan/Chief Complaint Assessment: Acute pancreatitis Alcoholism Alcohol withdrawal Plan: Supportive care IV fluid 11/08/2021: Supportive care PT and OT 11/08/2021 Acute pancreatitis resolving patient reports it has been 2 weeks since his last drink that he is through with alcohol and understands that it is the cause of his current hospitalization and discussed the fact that acute pancreatitis with severe abdominal pain would return if he went back to drinking. Delirium appears to be improving if he has had a reasonable night tonight consider discharge tomorrow with cardiology follow-up per the recommendation versus stress test inpatient before discharge again per their recommendation. Clinical Quality Measures AMI/AHF: ASA po Prior to arrival: Yes RUSSELL ACUÑA MD Nov 09, 2021 10:46
[2021-11-10 04:00] VITALS: BP 177/86
[2021-11-10] MEDS: inSUlin ASPART (NovoLOG) 1 UNIT/0.01 ML (CHARGE PER UNIT) SC SCH ×3 (05:01→16:07)
[2021-11-10 06:37] LABS: BASOPHILS % (AUTO) 0 % (0-10); EOSINOPHILS # (AUTO) 0.1 10^3/uL (0.0-0.3); EOSINOPHILS % (AUTO) 2 % (0-10); HEMATOCRIT 39 % (40-54); HEMOGLOBIN 12.9 g/dL (13.3-17.7); LYMPHOCYTES # (AUTO) 0.9 10^3/uL (1.0-4.0); LYMPHOCYTES % (AUTO) 14 % (12-44); MEAN CORPUSCULAR HEMOGLOBIN 33 pg (25-34); MEAN CORPUSCULAR HGB CONC 34 g/dL (32-36); MEAN CORPUSCULAR VOLUME 99 fL (80-99); MEAN PLATELET VOLUME 9.2 fL (9.0-12.2); MONOCYTES # (AUTO) 0.8 10^3/uL (0.0-1.0); MONOCYTES % (AUTO) 13 % (0-12); NEUTROPHILS # (AUTO) 4.5 10^3/uL (1.8-7.8); NEUTROPHILS % (AUTO) 70 % (42-75); PLATELET COUNT 216 10^3/uL (130-400); WHITE BLOOD COUNT 6.4 10^3/uL (4.3-11.0)
[2021-11-10 07:16] LABS: ALBUMIN 3.6 GM/DL (3.2-4.5); POTASSIUM 3.8 MMOL/L (3.6-5.0)
[2021-11-10 07:17] LABS: CALCIUM 9.6 MG/DL (8.5-10.1)
[2021-11-10 07:18] LABS: TOTAL PROTEIN 7.1 GM/DL (6.4-8.2)
[2021-11-10 07:20] LABS: BILIRUBIN,TOTAL 0.8 MG/DL (0.1-1.0)
[2021-11-10 07:22] LABS: CREATININE SERUM 0.68 MG/DL (0.60-1.30)
[2021-11-10 07:30] VITALS: BP 157/94
--- NOTE | 2021-11-10 07:39 | Progress Note - Surgery ---
DOM IVEY A MED STUDENT 11/10/21 0739: Subjective Date Seen by a Provider: Nov 10, 2021 Time Seen by a Provider: 07:00 Subjective/Events-last exam Pt up in chair this morning, asking when he can be discharged from hospital. Pt states his abdominal pain is 8/10, but oral pain medication is helping. Pt reports he is tolerating regular diet well. Last BM was this morning and it was solid. Pt denies fever, chills, CP, palpitations, SOA, cough, N/V/D. Pt has no further concerns. Review of Systems General: No Chills, No Fatigue HEENT: No Head Aches, No Visual Changes Pulmonary: No Dyspnea, No Cough Cardiovascular: No: Chest Pain, Palpitations Gastrointestinal: Abdominal Pain; No: Nausea, Vomiting Genitourinary: No Dysuria, No Frequency Neurological: No: Weakness, Numbness Objective Exam Vital Signs Date Time Temp Pulse Resp B/P (MAP) Pulse Ox O2 Delivery O2 Flow Rate FiO2 11/10/21 07:00 75 11/10/21 04:00 36.2 73 17 177/86 (116) 93 Room Air 11/10/21 01:00 70 11/09/21 23:59 36.1 78 18 168/93 (118) 96 Room Air 11/09/21 21:53 Room Air 11/09/21 20:20 Room Air 11/09/21 19:44 36.8 94 20 153/91 (111) 92 Room Air 11/09/21 16:22 35.9 84 18 172/93 (119) 92 Room Air 11/09/21 13:00 87 11/09/21 11:15 37.4 65 18 143/77 (99) 95 Room Air 11/09/21 09:18 95 Room Air 11/09/21 08:44 Room Air 11/09/21 08:00 37.6 86 18 139/101 (114) 96 Room Air I & O 11/10/21 07:00 Intake Total 1040 ml Output Total 1625 ml Balance -585 ml Capillary Refill : Less Than 3 Seconds General Appearance: No Apparent Distress, Thin HEENT: PERRL/EOMI Neck: Non Tender, Supple Respiratory: Chest Non Tender, Lungs Clear, Normal Breath Sounds, No Accessory Muscle Use, No Respiratory Distress Cardiovascular: Regular Rate, Rhythm, No JVD, No Murmur Gastrointestinal: non tender, soft Extremity: Normal Inspection, No Pedal Edema Neurologic/Psychiatric: Alert, Normal Mood/Affect Skin: Normal Color, Warm/Dry Lymphatic: No Adenopathy (cervical ) Results Lab Laboratory Tests 11/09/21 10:38: Glucometer 117H 11/09/21 15:26: Glucometer 126H 11/09/21 20:21: Glucometer 132H 11/10/21 04:57: Glucometer 130H 11/10/21 06:15: White Blood Count 6.4, Red Blood Count 3.88L, Hemoglobin 12.9L, Hematocrit 39L, Mean Corpuscular Volume 99, Mean Corpuscular Hemoglobin 33, Mean Corpuscular Hemoglobin Concent 34, Red Cell Distribution Width 13.2, Platelet Count 216, Mean Platelet Volume 9.2, Immature Granulocyte % (Auto) 1, Neutrophils (%) (Auto) 70, Lymphocytes (%) (Auto) 14, Monocytes (%) (Auto) 13H, Eosinophils (%) (Auto) 2, Basophils (%) (Auto) 0, Neutrophils # (Auto) 4.5, Lymphocytes # (Auto) 0.9L, Monocytes # (Auto) 0.8, Eosinophils # (Auto) 0.1, Basophils # (Auto) 0.0, Immature Granulocyte # (Auto) 0.0 11/10/21 06:26: Sodium Level 134L, Potassium Level 3.8, Chloride Level 102, Carbon Dioxide Level 24, Anion Gap 8, Blood Urea Nitrogen 7, Creatinine 0.68, Estimat Glomerular Filtration Rate 103, BUN/Creatinine Ratio 10, Glucose Level 141H, Calcium Level 9.6, Corrected Calcium 9.9, Total Bilirubin 0.8, Aspartate Amino Transf (AST/ SGOT) 17, Alanine Aminotransferase (ALT/SGPT) 13, Alkaline Phosphatase 77, Total Protein 7.1, Albumin 3.6 Microbiology 11/04/21 Urine Culture - Final, Complete Klebsiella aerogenes Assessment/Plan Assessment/Plan Assessment/Plan ETOH induced pancreatitis Alcoholism Alcohol withdrawal Plan Continue IV fluids, oral pain control, protonix, sliding scale insulin On CIWA protocol Continue Lovenox for DVT prophylaxis Tolerating regular diet well, continue PT Consider d/c today with outpatient stress test tomorrow. Clinical Quality Measures AMI/AHF: ASA po Prior to arrival: Yes FLORECITA ROMERO DO 11/10/21 1324: Subjective Subjective/Events-last exam Patient up in the chair. Willing to be discharged home. Still with abdominal pain but he states that it is under good control with oral pain medication. He is tolerating diet. He is having bowel function. Denies nausea vomiting fever sweats chills shortness of breath or chest pain at this time. Objective Exam General Appearance: No Apparent Distress, Thin HEENT: PERRL/EOMI, Normal ENT Inspection Neck: Non Tender, Supple Respiratory: Chest Non Tender, No Accessory Muscle Use, No Respiratory Distress Cardiovascular: Regular Rate, Rhythm, No JVD Gastrointestinal: non tender, soft Extremity: Normal Inspection, Non Tender Neurologic/Psychiatric: Alert, Normal Mood/Affect Skin: Normal Color, Warm/Dry Lymphatic: No Adenopathy (cervical ) Assessment/Plan Assessment/Plan Assessment/Plan ETOH induced pancreatitis Alcoholism Alcohol withdrawal Chest pain Plan oral pain control, protonix, sliding scale insulin On CIWA protocol Continue Lovenox for DVT prophylaxis Tolerating regular diet well, continue PT Consider d/c today with outpatient stress test tomorrow with cardiology. Supervisory-Addendum Brief Verification & Attestation Participated in pt care: history, MDM, physical Personally performed: exam, history, MDM, supervision of care Care discussed with: Medical Student Procedures: n/a Results interpretation: Verified all documentation Verification and Attestation of Medical Student E/M Service A medical student performed and documented this service in my presence. I reviewed and verified all information documented by the medical student and made modifications to such information, when appropriate. I personally performed the physical exam and medical decision making. Florecita Romero, Nov 10, 2021,13:23 DOM IVEY MED STUDENT Nov 10, 2021 07:39 FLORECITA ROMERO DO Nov 10, 2021 13:24
[2021-11-10] MEDS: lisINopril 20 MG (PRINIVIL) TABLET PO SCH (07:57)
[2021-11-10] MEDS: ASPIRIN E.C. 81 MG (ECOTRIN) TAB PO SCH (07:57)
[2021-11-10] MEDS: DOCUSATE SODIUM 100 MG (COLACE) CAP PO SCH (07:58)
[2021-11-10] MEDS: PANTOPRAZOLE 40 MG (PROTONIX) TAB PO SCH (07:58)
[2021-11-10] MEDS: SENNOSIDES 8.6 MG (SENOKOT) TAB PO SCH (07:58)
[2021-11-10] MEDS ORDERED: ASPI-1238 PO ×2 (09:07→15:14)
[2021-11-10] MEDS ORDERED: ATOR40TA PO ×2 (09:07→15:14)
[2021-11-10] MEDS ORDERED: LISI20TA26 PO ×2 (09:07→15:14)
[2021-11-10] MEDS ORDERED: OXC5T PO (09:07)
[2021-11-10 11:00] VITALS: BP 166/76
[2021-11-10] MEDS: ENOXAPARIN 40 MG/0.4 ML (LOVENOX) SYR SC SCH (11:59)
--- NOTE | 2021-11-10 15:05 | Progress Note - Cardiology ---
Cardiology SOAP Progress Note Subjective: Wishes to home. Does not want to be in the hosp any longer No cp Continue mid abd pain, but much improved No palp or syncope No shortness of breath No swelling Gen malaise and weakness present, but has improved compared to time of admission Objective: I&O/Vital Signs 11/10/21 11/10/21 11/10/21 11/10/21 04:00 07:00 07:30 08:12 Temp 36.2 37.3 Pulse 73 75 78 Resp 17 20 B/P (MAP) 177/86 (116) 157/94 (115) Pulse Ox 93 95 O2 Delivery Room Air Room Air Room Air 11/10/21 11/10/21 09:16 11:00 Temp 36.9 Pulse 82 Resp 18 B/P (MAP) 166/76 (106) Pulse Ox 95 O2 Delivery Room Air Room Air O2 Flow Rate 0.00 11/10/21 00:00 Intake Total 790 ml Output Total 1025 ml Balance -235 ml Weight (Pounds): 130 Weight (Ounces): 2.0 Weight (Calculated Kilograms): 59.597229 Constitutional: AAO x 3, well-developed, well-nourished Respiratory: No accessory muscle use; other (fair, bilat air entry) Cardiovascular: regular rate-rhythm, S1 and S2, systolic murmur (soft GUILLERMO at card base) Gastrointestional: No tender; soft; No guarding, No rebound; audible bowel sounds Extremities: No clubbing, No cyanosis, No significant edema Neurologic/Psychiatric: other (moves all limbs equally) Skin: No rash, No ulcerations Results/Procedures: Labs Laboratory Tests 11/09/21 15:26: Glucometer 126H 11/09/21 20:21: Glucometer 132H 11/10/21 04:57: Glucometer 130H 11/10/21 06:15: White Blood Count 6.4, Red Blood Count 3.88L, Hemoglobin 12.9L, Hematocrit 39L, Mean Corpuscular Volume 99, Mean Corpuscular Hemoglobin 33, Mean Corpuscular Hemoglobin Concent 34, Red Cell Distribution Width 13.2, Platelet Count 216, Mean Platelet Volume 9.2, Immature Granulocyte % (Auto) 1, Neutrophils (%) (Auto) 70, Lymphocytes (%) (Auto) 14, Monocytes (%) (Auto) 13H, Eosinophils (%) (Auto) 2, Basophils (%) (Auto) 0, Neutrophils # (Auto) 4.5, Lymphocytes # (Auto) 0.9L, Monocytes # (Auto) 0.8, Eosinophils # (Auto) 0.1, Basophils # (Auto) 0.0, Immature Granulocyte # (Auto) 0.0 11/10/21 06:26: Sodium Level 134L, Potassium Level 3.8, Chloride Level 102, Carbon Dioxide Level 24, Anion Gap 8, Blood Urea Nitrogen 7, Creatinine 0.68, Estimat Glomerular Filtration Rate 103, BUN/Creatinine Ratio 10, Glucose Level 141H, Calcium Level 9.6, Corrected Calcium 9.9, Total Bilirubin 0.8, Aspartate Amino Transf (AST/SGOT) 17, Alanine Aminotransferase (ALT/SGPT) 13, Alkaline Phosphatase 77, Total Protein 7.1, Albumin 3.6 11/10/21 11:29: Glucometer 109 Microbiology 11/04/21 Urine Culture - Final, Complete Klebsiella aerogenes Laboratory Tests 11/09/21 05:26 11/10/21 06:15 11/10/21 06:26 A/P: Assessment: Alcohol-related pancreatitis, improving, managed by Med and Surg svces Non-specific chest discomfort, none currently - nonspecific ST depression on his electrocardiogram from admission but no signs of a prior infarct or obvious ischemic changes Hypertension - treated with lisinopril Mixed hyperlipidemia - treated with atorvastatin H/o tobacco and alcohol abuse - advised to refrain Acute encephalopathy, probably alcohol-related, managed by the Med Svce, resolved H/o noncompliance - compliance advised Plan: * I interviewed and examined the patient and reviewed his records * Advised avoidance of tobacco and alcohol use * Advised compliance with meds * Dr Cisneros, his detective and intelligence analyst, plans stress test for tomorrow. Orders written and compliance advised Clinical Quality Measures AMI/AHF: ASA po Prior to arrival: Yes CHITO RAE MD FACP [facility]S Nov 10, 2021 15:05
[2021-11-10 15:46] VITALS: BP 146/90
== END 2021-11-10 16:25 | disposition home or self-care (01) | DRG 439 ==
LOC: EDUNIT# 02:42 → ER 02:43 → 4TH 09:23
PROVIDERS: ADMIT Internal Medicine; ATTEND Internal Medicine
DX: K85.20 Alcohol induced acute pancreatitis without necrosis or infection (principal); F10.239 Alcohol dependence with withdrawal, unspecified; E87.6 Hypokalemia; F17.210 Nicotine dependence, cigarettes, uncomplicated; E78.00 Pure hypercholesterolemia, unspecified; I10 Essential (primary) hypertension; R73.9 Hyperglycemia, unspecified; D72.829 Elevated white blood cell count, unspecified; I25.10 Atherosclerotic heart disease of native coronary artery without angina pectoris; K21.9 Gastro-esophageal reflux disease without esophagitis; M19.90 Unspecified osteoarthritis, unspecified site; G89.29 Other chronic pain; R13.10 Dysphagia, unspecified; Z86.73 Personal history of transient ischemic attack (TIA), and cerebral infarction without residual deficits; R07.9 Chest pain, unspecified; E78.2 Mixed hyperlipidemia; R00.1 Bradycardia, unspecified; Z91.14 Patient's other noncompliance with medication regimen; G31.2 Degeneration of nervous system due to alcohol; Z20.822 Contact with and (suspected) exposure to COVID-19
CPT/HCPCS: 36415; 71045; 71275; 74177; 80053; 80061; 80306; 80320; 81000; 82150; 82550; 82553; 82947; 83690; 83735; 83874; 83880; 84484; 85007; 85025; 85027; 85379; 85610; 85730; 87077; 87088; 87186; 87636; 93005; 93041; 94760; 96361; 96365; 96375; 96376

== ENCOUNTER 2021-12-07 18:15 | Emergency (ER) | payer MEDICARE ==
[~2021-12-07] VITALS: Ht 167.7 cm; Wt 58.9 kg
[~2021-12-07 18:15] MED LIST changes: +ASPI-1238 PO; +LISI20TA26 PO; +OMEP20TA56 PO; -OMEP20TA7 PO; +OXC5T PO
[2021-12-07] MEDS ORDERED: ONDANSETRON 4 MG/2 ML (SDV) Z0FRAN IVP ONE (18:30)
[2021-12-07 18:37] LABS: BASOPHILS % (AUTO) 1 % (0-10); EOSINOPHILS # (AUTO) 0.1 10^3/uL (0.0-0.3); EOSINOPHILS % (AUTO) 1 % (0-10); HEMATOCRIT 43 % (40-54); HEMOGLOBIN 14.6 g/dL (13.3-17.7); LYMPHOCYTES # (AUTO) 1.8 10^3/uL (1.0-4.0); LYMPHOCYTES % (AUTO) 37 % (12-44); MEAN CORPUSCULAR HEMOGLOBIN 33 pg (25-34); MEAN CORPUSCULAR HGB CONC 34 g/dL (32-36); MEAN CORPUSCULAR VOLUME 96 fL (80-99); MEAN PLATELET VOLUME 8.6 fL (9.0-12.2); MONOCYTES # (AUTO) 0.5 10^3/uL (0.0-1.0); MONOCYTES % (AUTO) 9 % (0-12); NEUTROPHILS # (AUTO) 2.5 10^3/uL (1.8-7.8); NEUTROPHILS % (AUTO) 52 % (42-75); PLATELET COUNT 172 10^3/uL (130-400); WHITE BLOOD COUNT 4.8 10^3/uL (4.3-11.0)
[2021-12-07 18:49] LABS: ALBUMIN 3.3 GM/DL (3.2-4.5)
[2021-12-07 18:50] LABS: CALCIUM 8.6 MG/DL (8.5-10.1)
[2021-12-07 18:52] LABS: TOTAL PROTEIN 6.2 GM/DL (6.4-8.2)
[2021-12-07 18:53] LABS: BILIRUBIN,TOTAL 0.4 MG/DL (0.1-1.0)
[2021-12-07 18:55] LABS: CREATININE SERUM 0.78 MG/DL (0.60-1.30); PROTHROMBIN TIME PATIENT 13.2 SEC (12.2-14.7)
[2021-12-07 18:58] LABS: MAGNESIUM 1.7 MG/DL (1.6-2.4)
[2021-12-07 19:06] LABS: CREATINE KINASE MB 0.3 NG/ML (<6.6)
[2021-12-07] MEDS ORDERED: NS IV 1000 ML 1,000 ML IV SCH (19:15)
[2021-12-07] MEDS ORDERED: NITROGLYCERIN 0.4 MG SL TABS BTL 25'S SL PRN (19:15)
[2021-12-07] MEDS ORDERED: HOLD METFORMIN - RECEIVED CONTRAST 20 ML VIAL IV SCH (19:30)
[2021-12-07] MEDS ORDERED: CATHETER FLUSH 10 ML SYR IV PRN (19:30)
[2021-12-07] MEDS ORDERED: NS 100 ML (IVPB) BAG IV ONE (19:30)
[2021-12-07] MEDS ORDERED: IOHEXOL 350 MG/ML 100 ML (OMNIPAQUE 350) VIAL IV ONE (19:30)
--- NOTE | 2021-12-07 19:35 | Diagnostic Imaging Report ---
EXAMINATION: Chest radiograph, portable AP view. DATE: 12/07/2021 6:48 PM INDICATION: 66-year-old male, chest pain. COMPARISON: November 04, 2021. FINDINGS: Heart size and mediastinal contours are unchanged. There is no identified pneumothorax. There is no large pleural effusion. There is thoracolumbar spine hardware. There is incompletely imaged cervical spine hardware. There is no identified interval focal airspace consolidation. There are right upper quadrant surgical clips. IMPRESSION: No identified acute cardiopulmonary abnormality. Dictated by: Dictated on workstation # [id number]
--- NOTE | 2021-12-07 20:04 | ED Cardiac General ---
History of Present Illness General Chief Complaint: Chest Pain Stated Complaint: CHEST PAIN Nursing Triage Note: PT ARRIVES BY [facility] FROM HOME. PT STATES HE HAS HAD CP, WEAKNESS, AND NO APPETITE FOR 3 DAYS. PT STATES HIS CP IS MIDDLE STERNUM TO RIGHT SIDED PAIN. PT STATES NOTHING BRINGS THE PAIN ON OR RELIEVES IT, AND HAS BEEN NONSTOP FOR THE 3 DAYS. PT WAS GIVEN 4 BABY ASPIRIN EN ROUTE Source: patient (POOR/LIMITED/DIFFICULT HISTORIAN), EMS, old records History of Present Illness Date Seen by Provider: Dec 07, 2021 Time Seen by Provider: 18:23 Initial Comments PT ARRIVES VIA EMS FROM HOME C/O CHEST PAIN X 3 DAYS HAS ALSO HAD GENERALIZED WEAKNESS AND NO APPETITE PAIN IS FROM MID STERNUM TO RIGHT CHEST NOTHING WORSENS OR IMPROVES PAIN PAIN IS CONSTANT C/O NAUSEA, NO VOMITING HAS HAD SOME EPIGASTRIC DISCOMFORT WELL EMS GAVE 4 BABY ASPIRIN, NO OTHER MEDICATIONS NO EKG BY EMS. PT ADMITTED 11/04-11/10/21 FOR PANCREATITIS PT ADMITTED IN AUGUST 2021 FOR COVID-19 PNEUMONIA PT HAS LONGSTANDING AND EXTENSIVE HISTORY OF ALCOHOL AND DRUG ABUSE--INCLUDING METHAMPHETAMINES-- NOTED IN PREVIOUS RECORDS, BUT PT DENIES EVER USING ALCOHOL OR DRUGS IN HIS WHOLE LIFE ASA po BELLMAN: Yes (324 ASA GIVEN PER EMS) PCP: CAMELIA-K Allergies and Home Medications Allergies Coded Allergies: ibuprofen (Verified Adverse Reaction, Unknown, Hypertension, pt has rec ASA in the past, 11/05/21) HYPERTENSION tramadol (Verified Adverse Reaction, Unknown, VOMIT, 10/03/18) Patient Home Medication List Home Medication List Reviewed: Yes Aspirin (Aspirin EC) 81 Mg Tablet.dr, 81 MG PO DAILY Prescribed by: KAYLIN BURDEN on 11/10/211513 Atorvastatin Calcium (Lipitor) 40 Mg Tablet, 40 MG PO HS Prescribed by: KAYLIN BURDEN on 11/10/211513 Ciprofloxacin HCl (Ciprofloxacin HCl) 500 Mg Tablet, 500 MG PO BID Prescribed by: TIMI MATTSNO on 12/07/212233 Lisinopril (Lisinopril) 20 Mg Tablet, 40 MG PO DAILY Prescribed by: KAYLIN BURDEN on 11/10/211513 Metronidazole (Metronidazole) 500 Mg Tablet, 500 MG PO QID Prescribed by: TIMI MATTSON on 12/07/212233 Ondansetron (Ondansetron Odt) 4 Mg Tab.rapdis, 4 MG PO Q4H Prescribed by: TIMI MATTSON on 12/07/212234 Oxycodone Hcl (Oxyir Tablet) 5 Mg Tab, 5 MG PO Q4HR PRN for PAIN-SEE DOSE INSTRUCTIONS Prescribed by: RUSSELL ACUÑA on 11/10/21 09 Pantoprazole Sodium (Protonix) 40 Mg Tablet.dr, 40 MG PO DAILY Prescribed by: TIMI MATTSON on 12/07/212234 Review of Systems Review of Systems Constitutional: malaise, weakness Respiratory: No Symptoms Reported Cardiovascular: See HPI, Chest Pain Gastrointestinal: See HPI, Abdominal Pain, Nausea, Vomiting Genitourinary: No Symptoms Reported Musculoskeletal: back pain Skin: no symptoms reported Psychiatric/Neurological: No Symptoms Reported Endocrine: No Symptoms Reported Hematologic/Lymphatic: No Symptoms Reported Past Pmyxafo-Vngqno-Kdedpr Hx Patient Social History Tobacco Use?: Yes Tobacco type used: Cigarettes Smoking Status: Current Everyday Smoker Use of E-Cig and/or Vaping dev: No Substance use?: Yes Alcohol Use?: Yes Alcohol Frequency: Daily Immunizations Up To Date Tetanus Booster (TDap): Less than 5yrs PED Vaccines UTD: Yes Influenza Vaccine Up-to-Date: Yes; Up-to-Date First/Initial COVID19 Vaccinat: 09/2021 Second COVID19 Vaccination Jl: 09/2021 Third COVID19 Vaccination Date: 09/2021 Seasonal Allergies Seasonal Allergies: No Past Medical History Surgery/Hospitalization HX: BACK X 3, ROTATOR CUFF X 3, APPENDIX, GALLBLADDER Surgeries: Yes Appendectomy, Ear Surgery, Gallbladder, Orthopedic Respiratory: Yes (COVID PNEUMONIA 08/2021) Chronic Bronchitis Currently Using CPAP: No Currently Using BIPAP: No Cardiac: Yes High Cholesterol, Hypertension Neurological: Yes (TIA 01/2021; RESTLESS LEG SYNDROME) TIA Reproductive Disorders: No Sexually Transmitted Disease: No HIV/AIDS: No Genitourinary: No Gastrointestinal: Yes (ESOPHAGEAL STRICTURES/DILATIONS) Gastroesophageal Reflux Musculoskeletal: Yes (CHRONIC LEFT SHOULDER PAIN;CHRONIC NECK/BACK PAIN ) Degenerate Disk Disease, Arthritis, Chronic Back Pain Endocrine: No HEENT: Yes (POOR DENTITION; BMT'S;CHRONIC DYSPHAGIA AND HOARSENESS ) Dysphagia, Chronic Ear Infection Hearing Impairment: Hard of Hearing Cancer: Yes Skin Did You Recieve Any Treatments: Yes What Type of Treatment Did You: Surgical Intervention Psychosocial: Yes (POLYSUBSTANCE ABUSE AND OVERDOSES) Anxiety, Suicide Attempts, Depression Integumentary: No Blood Disorders: No Adverse Reaction/Blood Tranf: No (N/A) Family Medical History Cancer 03 FATHER (PROSTATE) 03 MOTHER (BREAST CA ) 09 BROTHER (THROAT/PANCREATIC) 09 SISTER (LIVER) DEAFNESS 03 FATHER 09 BROTHER Family history: Breast disease 03 MOTHER (BREAST CA) History of - respiratory disease Prostate cancer 03 FATHER Stroke 03 MOTHER Visual impairment No Pertinent Family Hx LONG HISTORY OF EXTREME NON-COMPLIANCE IN ALL ASPECTS OF CARE SOCIAL HISTORY: -SMOKES 2-3 PPD -ETOH--ABUSE/DAILY USE--ALSO DRINKS LARGE AMOUNTS OF NYQUIL DAILY; WITH HISTORY OF ALCOHOL WITHDRAWL SYMPTOMS -DRUGS-EXTENSIVE POLYSUBSTANCE ABUSE AND OVERDOSES--ESPECIALLY XANAX/BENZODIAZEPINES AND NARCOTICS/OPIATES; METHAMPHETAMINES -HAS HAD A MULTITUDE OF ACCIDENTS DUE TO SUBSTANCE ABUSE, HISTORY OF GETTING MULTIPLE RX'S FROM MULTIPROVIDERS USING MULTIPLE PHARMACIES; -HAS BEEN EVICTED FROM MULTIPLE REHAB /SUBSTANCE ABUSE TREATMENT FACILITIES, INCLUDING [facility], FOR EXTREME NON-COMPLIANCE. 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 % Physical Exam Vital Signs Vital Signs - First Documented 12/07/21 12/07/21 18:19 18:44 Temp 36.7 Pulse 93 Resp 20 B/P (MAP) 128/81 (97) Pulse Ox 97 O2 Delivery Nasal Cannula O2 Flow Rate 2.50 Capillary Refill : Height, Weight, BMI Height: 5'6.00" Weight: 130lbs. 2.0oz. 59.943637ir; 20.00 BMI Method:Stated General Appearance: No Apparent Distress, WD/WN, Chronically ill (LOOKS MUCH OLDER THAN STATED AGE), Other (DIRTY, REEKS OF CIGARETTES AND ALCOHOL) HEENT: Other (POOR DENTITION) Neck: Normal Inspection Respiratory: Normal Breath Sounds, No Accessory Muscle Use, No Respiratory Distress Cardiovascular: Regular Rate, Rhythm, No Edema, No Murmur Gastrointestinal: Soft Extremity: Normal Capillary Refill, No Calf Tenderness, No Pedal Edema Neurologic/Psychiatric: Alert, Oriented x3 (BUT POOR MEMORY), No Motor/Sensory Deficits, mineral mixer II-XII Norm as Tested Skin: Normal Color, Warm/Dry Progress/Results/Core Measures Results/Orders Lab Results Laboratory Tests Test 12/07/21 18:27 12/07/21 21:15 12/07/21 21:28 Range/Units White Blood Count 4.8 4.3-11.0 10^3/uL Red Blood Count 4.44 4.30-5.52 10^6/uL Hemoglobin 14.6 13.3-17.7 g/dL Hematocrit 43 40-54 % Mean Corpuscular Volume 96 80-99 fL Mean Corpuscular Hemoglobin 33 25-34 pg Mean Corpuscular Hemoglobin Concent 34 32-36 g/dL Red Cell Distribution Width 13.8 10.0-14.5 % Platelet Count 172 130-400 10^3/uL Mean Platelet Volume 8.6 L 9.0-12.2 fL Immature Granulocyte % (Auto) 0 % Neutrophils (%) (Auto) 52 42-75 % Lymphocytes (%) (Auto) 37 12-44 % Monocytes (%) (Auto) 9 0-12 % Eosinophils (%) (Auto) 1 0-10 % Basophils (%) (Auto) 1 0-10 % Neutrophils # (Auto) 2.5 1.8-7.8 10^3/uL Lymphocytes # (Auto) 1.8 1.0-4.0 10^3/uL Monocytes # (Auto) 0.5 0.0-1.0 10^3/uL Eosinophils # (Auto) 0.1 0.0-0.3 10^3/uL Basophils # (Auto) 0.0 0.0-0.1 10^3/uL Immature Granulocyte # (Auto) 0.0 0.0-0.1 10^3/uL Prothrombin Time 13.2 12.2-14.7 SEC INR Comment 1.0 0.8-1.4 Activated Partial Thromboplast Time 28 24-35 SEC D-Dimer 1.08 H 0.00-0.49 UG/ML Sodium Level 139 135-145 MMOL/L Potassium Level 3.0 L 3.6-5.0 MMOL/L Chloride Level 95 L 98-107 MMOL/L Carbon Dioxide Level 23 21-32 MMOL/L Anion Gap 21 H 5-14 MMOL/L Blood Urea Nitrogen 11 7-18 MG/DL Creatinine 0.78 0.60-1.30 MG/DL Estimat Glomerular Filtration Rate 98 BUN/Creatinine Ratio 14 Glucose Level 106 H 70-105 MG/DL Calcium Level 8.6 8.5-10.1 MG/DL Corrected Calcium 9.2 8.5-10.1 MG/DL Magnesium Level 1.7 1.6-2.4 MG/DL Total Bilirubin 0.4 0.1-1.0 MG/DL Aspartate Amino Transf (AST/SGOT) 19 5-34 U/L Alanine Aminotransferase (ALT/SGPT) 14 0-55 U/L Alkaline Phosphatase 116 40-136 U/L Total Creatine Kinase 38 30-200 U/L Creatine Kinase MB 0.3 <6.6 NG/ML Myoglobin 27.6 10.0-92.0 NG/ML Troponin I < 0.028 < 0.028 <0.028 NG/ML B-Type Natriuretic Peptide < 10.0 <100.0 PG/ML Total Protein 6.2 L 6.4-8.2 GM/DL Albumin 3.3 3.2-4.5 GM/DL Amylase Level 42 25-125 U/L Lipase 80 H 8-78 U/L Serum Alcohol 155 H <10 MG/DL Urine Color YELLOW Urine Clarity CLOUDY Urine pH 6.0 5-9 Urine Specific [place] >=1.030 1.016-1.022 Urine Protein 2+ H NEGATIVE Urine Glucose (UA) NEGATIVE NEGATIVE Urine Ketones NEGATIVE NEGATIVE Urine Nitrite POSITIVE H NEGATIVE Urine Bilirubin NEGATIVE NEGATIVE Urine Urobilinogen 1.0 < = 1.0 MG/DL Urine Leukocyte Esterase 2+ H NEGATIVE Urine RBC (Auto) 2+ H NEGATIVE Urine RBC 25-50 H /HPF Urine WBC 50-100 H /HPF Urine Squamous Epithelial Cells RARE /HPF Urine Crystals NONE /LPF Urine Bacteria LARGE H /HPF Urine Casts NONE /LPF Urine Mucus SMALL H /LPF Urine Culture Indicated YES Urine Opiates Screen NEGATIVE NEGATIVE Urine Oxycodone Screen NEGATIVE NEGATIVE Urine Methadone Screen NEGATIVE NEGATIVE Urine Propoxyphene Screen NEGATIVE NEGATIVE Urine Barbiturates Screen NEGATIVE NEGATIVE Ur Tricyclic Antidepressants Screen NEGATIVE NEGATIVE Urine Phencyclidine Screen NEGATIVE NEGATIVE Urine Amphetamines Screen NEGATIVE NEGATIVE Urine Methamphetamines Screen NEGATIVE NEGATIVE Urine Benzodiazepines Screen NEGATIVE NEGATIVE Urine Cocaine Screen NEGATIVE NEGATIVE Urine Cannabinoids Screen NEGATIVE NEGATIVE My Orders Orders - TIMI MATTSON DO Ondansetron Injection (Zofran Injectio (12/07/21 18:30) Cbc With Automated Diff (12/07/21 18:) Magnesium (12/07/21 18:) Chest 1 View, Ap/Pa Only (12/07/21 18:) Ekg Tracing (12/07/21 18:) Comprehensive Metabolic Panel (12/07/21 18:) Myoglobin Serum (12/07/21:) Protime With Inr (12/07/21:) Partial Thromboplastin Time (12/07/21:) O2 (12/07/21:) Monitor-Rhythm Ecg Trace Only (12/07/21:) Ed Iv/Invasive Line Start (12/07/21:) Creatine Kinase (12/07/21 18:) Creatine Kinase Mb (12/07/21 18:) Lipase (12/07/21 18:) Amylase (12/07/21 18:) Bnp [place] (12/07/21:) Fibrin Degradation Products (12/07/21 18:) Troponin I [place] (12/07/21 18:) Ct Mylene Chest/Noang Abd-Pelv W (12/07/21 19:14) Ns Iv 1000 Ml (Sodium Chloride 0.9%) (12/07/21 19:15) Nitroglycerin 0.4 Mg Btl 25's (Nitrostat (12/07/21 19:15) Iohexol Injection (Omnipaque 350 Mg/Ml 1 (12/07/21 19:30) Received Contrast (Hold Metformin- Contr (12/07/21 19:30) Sodium Chloride Flush (Catheter Flush Sy (12/07/21 19:30) Ns (Ivpb) (Sodium Chloride 0.9% Ivpb Bag (12/07/21 19:30) Alcohol (12/07/21 20:04) Drug Screen Stat (Urine) (12/07/21 20:04) Ua Culture If Indicated (4/23/22 20:04) Pantoprazole Injection (Protonix Injecti (12/07/21 20:15) Ekg Tracing (12/07/21 20:29) Ed Iv/Invasive Line Start (12/07/21 20:45) Lactated Ringers (Lr 1000 Ml Iv Solution (12/07/21 20:45) Ketorolac Injection (Toradol Injection) (12/07/21 21:15) Ekg Tracing (12/07/21 21:27) Troponin I [place] (12/07/21 21:27) Urine Culture (12/07/21 21:15) Ceftriaxone 1 Gm Pre-Mix (Rocephin 1 Gm (12/07/21 22:30) Hydrocodone/Apap 5/325 Tablet (Lortab 5 (12/07/21 22:45) Medications Given in ED Current Medications Medications Dose Ordered Sig/Isabell Route Start Time Stop Time Status Last Admin Dose Admin Acetaminophen/ Hydrocodone Bitart 1 ea ONCE ONCE PO 12/07/21 22:45 12/07/21 22:46 DC 12/07/21 22:56 1 EA Ceftriaxone Sodium/Dextrose 50 ml @ 100 mls/hr ONCE ONCE IV 12/07/21 22:30 12/07/21 22:59 DC 12/07/21 22:33 100 MLS/HR Iohexol 100 ml ONCE ONCE IV 12/07/21 19:30 12/07/21 19:31 DC 12/07/21 19:39 59 ML Lactated Ringer's 1,000 ml @ 0 mls/hr Q0M ONCE IV 12/07/21 20:45 12/07/21 20:46 DC 12/07/21 21:23 0 MLS/HR Nitroglycerin 0.4 mg UD PRN SL 12/07/21 19:15 12/07/21 23:10 DC 12/07/21 19:26 0.4 MG Ondansetron HCl 4 mg ONCE ONCE IVP 12/07/21 18:30 12/07/21 18:31 DC 12/07/21 18:32 4 MG Pantoprazole 40 mg ONCE ONCE IV 12/07/21 20:15 12/07/21 20:16 DC 12/07/21 20:23 40 MG Sodium Chloride 10 ml NEEDED PRN IV 12/07/21 19:30 12/07/21 23:10 DC 12/07/21 19:40 10 ML Sodium Chloride 100 ml ONCE ONCE IV 12/07/21 19:30 12/07/21 19:31 DC 12/07/21 19:40 80 ML Vital Signs/I&O 12/07/21 12/07/21 12/07/21 18:19 18:44 23:00 Temp 36.7 Pulse 93 89 Resp 20 14 B/P (MAP) 128/81 (97) 143/94 Pulse Ox 97 94 96 O2 Delivery Nasal Cannula O2 Flow Rate 2.50 12/07/21 23:59 Intake Total 0 ml Balance 2049 ml Blood Pressure Mean: 97 Progress Progress Note : Progress Note PT RAPIDLY COMPLAINING OF A MULTITUDE OF GENERALIZED PAIN COMPLAINTS SHORTLY AFTER ARRIVAL--STATES HE "HURTS EVERYWHERE" NO SPECIFIC COMPLAINTS OF CHEST OR ABDOMINAL PAIN AT ANY OTHER TIME DURING ER STAY FIXATED ON CHRONIC LOW BACK PAIN FOR REMAINDER OF ER STAY REPEATEDLY WANTING PAIN MEDICATIONS FOR CHRONIC GENERALIZED PAIN ORDERED TORADOL, THEN PT REFUSED STATING "IT'S A WASTE" OFFERED HYDROCODONE, WHICH PT TOOK, BUT STATES "IF IT'S ONLY A "5" IT'S NOT GOING TO WORK" --WANTING "SOMETHING STRONGER THAN THAT" ADVISED THAT HE WOULD NEED TO FOLLOW UP WITH HIS DR FOR ANY FURTHER PAIN MEDICATION FOR HIS CHRONIC PAIN ISSUES. PT HELD FOR REPEAT EKG AND TROPONIN, BOTH WERE UNCHANGED AND ESSENTIALLY NORMAL NO FURTHER NAUSEA WITH ZOFRAN NO DETERIORATION IN PT'S CONDITION DURING ER STAY Initial ECG Impression Date: Dec 07, 2021 Initial ECG Impression Time: 18:27 Initial ECG Rate: 93 Initial ECG Rhythm: Normal Sinus (PVC'S) EKG : EKG Time: 18:32 Rate: 90 Rhythm: Normal Sinus (PVC'S) Comment EKG #3 AT 2131--NSR RATE 79, UNCHANGED, NO PVC'S Diagnostic Imaging Comments CXR--PER RADIOLOGIST REPORT FINDINGS: Heart size and mediastinal contours are unchanged. There is no identified pneumothorax. There is no large pleural effusion. There is thoracolumbar spine hardware. There is incompletely imaged cervical spine hardware. There is no identified interval focal airspace consolidation. There are right upper quadrant surgical clips. IMPRESSION: No identified acute cardiopulmonary abnormality. CT CHEST ANGIOGRAM/ABDOMEN-PELVIS--PER RADIOLOGIST REPORT AT 2007 Findings: There is mild pleural parenchymal scarring in the lung apices. There are findings of emphysema. There is a 3 mm calcified left upper lobe granuloma on axial image 58. There is no identified focal airspace consolidation. There is no pneumothorax. There is no pleural effusion. The central airways are patent. There is no identified pulmonary embolus. The heart is not enlarged. There is no pericardial effusion. There are atherosclerotic calcifications. There is no identified abnormally enlarged mediastinal, hilar or axillary lymph node meeting CT size criteria for adenopathy. The liver is unremarkable in size and contour. There is no identified liver lesion. The main, right and left portal veins are patent. The gallbladder is surgically absent. There is no intrahepatic or extrahepatic bile duct dilation. The main pancreatic duct is not abnormally dilated. Unremarkable appearance of the pancreatic parenchyma. The spleen is normal in size. The adrenal glands are unremarkable. Unremarkable appearance of the renal parenchyma. The urinary collecting systems are not distended. There is no identified renal or ureteral stone. There is very mild diffuse urinary bladder wall thickening which may reflect cystitis and/or chronic outlet obstruction. There is diffuse mild wall thickening of the colon. There is no free intraperitoneal air. There is no drainable fluid collection. There is no free pelvic fluid. The intestinal tract is not distended. There are atherosclerotic calcifications. There is no identified abnormally enlarged lymph node in the abdomen or pelvis which meets CT size criteria for adenopathy. There are postoperative findings of the lumbar spine and thoracic spine with hardware present. There is hardware at the level of the cervical spine. Impression: 1. No identified pulmonary embolus or other acute cardiopulmonary abnormality. 2. Findings of emphysema. 3. Mild diffuse urinary bladder wall thickening which may reflect cystitis and/or chronic outlet obstruction. 4. Diffuse wall thickening of the colon likely reflecting a nonspecific colitis. Infectious and inflammatory etiologies would be favored. Reviewed: Reviewed by Me Departure Impression Primary Impression: UTI (urinary tract infection) Additional Impressions: Chest pain Alcohol intoxication in active alcoholic Chronic generalized pain Colitis Disposition: 01 HOME, SELF-CARE Condition: Stable Departure-Patient Inst. Decision time for Depature: 22:20 Referrals: [facility] (PCP/Family) Primary Care Physician Patient Instructions: Alcohol Intoxication ED, Chest Pain, Adult ED, Urinary Tract Infection, Adult ED, Chronic Pain, Colitis (DC) Add. Discharge Instructions: NO ALCOHOL TYLENOL NEEDED FOR PAIN CONTINUE YOUR REGULAR MEDICATIONS PRESCRIBED CLEAR LIQUIDS--WATER, BROTH, JELLO, GATORADE BRAFOREIGN DIET--BANANAS, RICE, APPLESAUCE, TOAST, SALTINES FOLLOW UP WITH YOUR DR IN 2-3 DAYS IF NO BETTER, RETURN TO ER IF WORSE All discharge instructions reviewed with patient and/or family. Voiced understanding. Scripts Pantoprazole Sodium (Protonix) 40 Mg Tablet.dr 40 MG PO DAILY, #15 TAB Prov: TIMI MATTSON DO 12/07/21 Ondansetron (Ondansetron Odt) 4 Mg Tab.rapdis 4 MG PO Q4H for Nausea/Vomiting, #10 TAB Prov: TIMI MATTSON DO 12/07/21 Metronidazole (Metronidazole) 500 Mg Tablet 500 MG PO QID, #28 TAB 0 Refills Prov: TIMI MATTSON DO 12/07/21 Ciprofloxacin HCl (Ciprofloxacin HCl) 500 Mg Tablet 500 MG PO BID, #14 TAB Prov: TIMI MATTSON DO 12/07/21 TIMI MATTSON DO Dec 07, 2021 20:04
--- NOTE | 2021-12-07 20:05 | Diagnostic Imaging Report ---
Exam: CT angiography of the chest, abdomen and pelvis with intravenous contrast. Date: December 07, 2021. Indication: 66-year-old male, chest pain, weakness. Abdominal pain. Comparison: CT chest, abdomen and pelvis November 04, 2021. Technique: Axial CT angiographic images of the chest, abdomen and pelvis were obtained with intravenous contrast. Coronal and sagittal reformats were obtained and provided. All CT scans use one or more of the following dose optimizing techniques: automated exposure control, MA and/or KvP adjustment based on patient size and exam type or iterative reconstruction. Findings: There is mild pleural parenchymal scarring in the lung apices. There are findings of emphysema. There is a 3 mm calcified left upper lobe granuloma on axial image 58. There is no identified focal airspace consolidation. There is no pneumothorax. There is no pleural effusion. The central airways are patent. There is no identified pulmonary embolus. The heart is not enlarged. There is no pericardial effusion. There are atherosclerotic calcifications. There is no identified abnormally enlarged mediastinal, hilar or axillary lymph node meeting CT size criteria for adenopathy. The liver is unremarkable in size and contour. There is no identified liver lesion. The main, right and left portal veins are patent. The gallbladder is surgically absent. There is no intrahepatic or extrahepatic bile duct dilation. The main pancreatic duct is not abnormally dilated. Unremarkable appearance of the pancreatic parenchyma. The spleen is normal in size. The adrenal glands are unremarkable. Unremarkable appearance of the renal parenchyma. The urinary collecting systems are not distended. There is no identified renal or ureteral stone. There is very mild diffuse urinary bladder wall thickening which may reflect cystitis and/or chronic outlet obstruction. There is diffuse mild wall thickening of the colon. There is no free intraperitoneal air. There is no drainable fluid collection. There is no free pelvic fluid. The intestinal tract is not distended. There are atherosclerotic calcifications. There is no identified abnormally enlarged lymph node in the abdomen or pelvis which meets CT size criteria for adenopathy. There are postoperative findings of the lumbar spine and thoracic spine with hardware present. There is hardware at the level of the cervical spine. Impression: 1. No identified pulmonary embolus or other acute cardiopulmonary abnormality. 2. Findings of emphysema. 3. Mild diffuse urinary bladder wall thickening which may reflect cystitis and/or chronic outlet obstruction. 4. Diffuse wall thickening of the colon likely reflecting a nonspecific colitis. Infectious and inflammatory etiologies would be favored. Dictated by: Dictated on workstation # [id number]
[2021-12-07] MEDS ORDERED: PANTOPRAZOLE 40 MG (PROTONIX) VIAL IV ONE (20:15)
[2021-12-07] MEDS ORDERED: LACTATED RINGERS 1,000 ML IV ONE (20:45)
[2021-12-07] MEDS ORDERED: KETOROLAC 30 MG/ML VIAL IVP ONE (21:15)
[2021-12-07 21:21] LABS: BILIRUBIN,URINE NEGATIVE (NEGATIVE); CLARITY,URINE CLOUDY; COLOR,URINE YELLOW; GLUCOSE, URINE (UA) NEGATIVE (NEGATIVE); KETONES,URINE NEGATIVE (NEGATIVE); LEUKOCYTE ESTERASE ,URINE 2+ (NEGATIVE); NITRITE,URINE POSITIVE (NEGATIVE); PROTEIN,URINE 2+ (NEGATIVE)
[2021-12-07 21:37] LABS: BACTERIA,URINE LARGE /HPF; RBC,URINE 25-50 /HPF; SQUAMOUS EPITHELIAL CELL,UR RARE /HPF; WBC,URINE 50-100 /HPF
[2021-12-07 21:41] LABS: AMPHETAMINE SCREEN, URINE NEGATIVE (NEGATIVE); BARBITURATE SCREEN URINE NEGATIVE (NEGATIVE); BENZODIAZEPINES SCREEN URINE NEGATIVE (NEGATIVE); CANNABINOID SCREEN, URINE NEGATIVE (NEGATIVE); COCAINE SCREEN URINE NEGATIVE (NEGATIVE); METHADONE STAT NEGATIVE (NEGATIVE); OPIATE SCREEN URINE NEGATIVE (NEGATIVE); OXYCODONE STAT NEGATIVE (NEGATIVE); PROPOXYPHENE STAT NEGATIVE (NEGATIVE); TRICYCLIC ANTIDEPRESSANTS SCRE NEGATIVE (NEGATIVE)
[2021-12-07] MEDS ORDERED: cefTRIAXone 1 GM PRE-MIX 50 ML IV ONE (22:30)
[2021-12-07] MEDS ORDERED: CIPR500T5 PO (22:34)
[2021-12-07] MEDS ORDERED: METR-145 PO (22:34)
[2021-12-07] MEDS ORDERED: PANT40TA2 PO (22:35)
[2021-12-07] MEDS ORDERED: ONDA4TAB11 PO (22:35)
[2021-12-07] MEDS ORDERED: HYDROcodone/APAP 5 MG/325 MG (LORTAB) TAB PO ONE (22:45)
[2021-12-07 23:00] VITALS: BP 143/94
== END 2021-12-07 23:10 | disposition home or self-care (01) ==
LOC: EDUNIT# 18:15 → ER 18:16
DX: R07.9 Chest pain, unspecified (principal); N39.0 Urinary tract infection, site not specified; K52.9 Noninfective gastroenteritis and colitis, unspecified; F10.229 Alcohol dependence with intoxication, unspecified; G89.29 Other chronic pain; F17.210 Nicotine dependence, cigarettes, uncomplicated; Y90.6 Blood alcohol level of 120-199 mg/100 ml; Z86.79 Personal history of other diseases of the circulatory system
CPT/HCPCS: 71045; 71275; 74177; 80053; 80306; 81000; 82150; 82550; 82553; 83690; 83735; 83874; 83880; 84484; 85025; 85379; 85610; 85730; 87077; 87088; 87186; 93005; 93041; 96361; 96365; 96375; 99284; G0480; 36415; 80320

== ENCOUNTER 2022-01-03 15:48 | Inpatient (IN) | payer MEDICARE ==
[~2022-01-03] VITALS: Ht 172 cm; Wt 54.9 kg
[~2022-01-03 15:48] MED LIST changes: +CIPR500T5 PO; +METR-145 PO; +ONDA4TAB11 PO
[2022-01-03] MEDS ORDERED: FAMOTIDINE 20MG/2ML IV (PEPCID) IVP ONE (16:00)
[2022-01-03] MEDS ORDERED: LACTATED RINGERS 1,000 ML IV ONE (16:00)
[2022-01-03] MEDS ORDERED: fentaNYL INJ 100 MCG/2 ML AMP IVP ONE ×2 (16:00→19:00)
[2022-01-03 16:08] LABS: BASOPHILS % (AUTO) 0 % (0-10); EOSINOPHILS # (AUTO) 0.1 10^3/uL (0.0-0.3); EOSINOPHILS % (AUTO) 1 % (0-10); HEMATOCRIT 41 % (40-54); HEMOGLOBIN 13.6 g/dL (13.3-17.7); LYMPHOCYTES # (AUTO) 1.2 X 10^3 (1.0-4.0); LYMPHOCYTES % (AUTO) 18 % (12-44); MEAN CORPUSCULAR HEMOGLOBIN 33 pg (25-34); MEAN CORPUSCULAR HGB CONC 33 g/dL (32-36); MEAN CORPUSCULAR VOLUME 99 fL (80-99); MEAN PLATELET VOLUME 9.4 fL (9.0-12.2); MONOCYTES # (AUTO) 0.5 X 10^3 (0.0-1.0); MONOCYTES % (AUTO) 7 % (0-12); NEUTROPHILS # (AUTO) 5.1 X 10^3 (1.8-7.8); NEUTROPHILS % (AUTO) 74 % (42-75); PLATELET COUNT 104 10^3/uL (130-400); WHITE BLOOD COUNT 6.9 10^3/uL (4.3-11.0)
[2022-01-03 16:26] LABS: ALBUMIN 3.4 GM/DL (3.2-4.5)
[2022-01-03 16:27] LABS: POTASSIUM 3.1 MMOL/L (3.6-5.0)
[2022-01-03 16:28] LABS: CALCIUM 8.9 MG/DL (8.5-10.1)
[2022-01-03 16:29] LABS: TOTAL PROTEIN 6.5 GM/DL (6.4-8.2)
[2022-01-03] MEDS ORDERED: NS IV 1000 ML 1,000 ML IV SCH (16:30)
[2022-01-03] MEDS ORDERED: POTASSIUM CL 10MEQ/50ML IVPB 50 ML IV ONE (16:30)
[2022-01-03 16:31] LABS: BILIRUBIN,TOTAL 0.9 MG/DL (0.1-1.0)
[2022-01-03 16:33] LABS: CREATININE SERUM 0.72 MG/DL (0.60-1.30)
[2022-01-03 16:36] LABS: MAGNESIUM 1.4 MG/DL (1.6-2.4)
[2022-01-03] MEDS ORDERED: ONDANSETRON 4 MG/2 ML (SDV) Z0FRAN IVP ONE (17:00)
[2022-01-03] MEDS ORDERED: ANTACID SUSP 30 ML UDC (MYLANTA) PO ONE (17:00)
[2022-01-03] MEDS ORDERED: LIDOCAINE 2% VISCOUS 15 ML UDC PO ONE (17:00)
[2022-01-03] MEDS ORDERED: MAGNESIUM 1 GM/100 ML IVPB 100 ML IV ONE (17:00)
[2022-01-03 17:27] LABS: CLARITY,URINE CLEAR; COLOR,URINE YELLOW; GLUCOSE, URINE (UA) NEGATIVE (NEGATIVE); KETONES,URINE TRACE (NEGATIVE); LEUKOCYTE ESTERASE ,URINE TRACE (NEGATIVE); NITRITE,URINE NEGATIVE (NEGATIVE); PH,URINE 6.5 (5-9); PROTEIN,URINE 1+ (NEGATIVE)
[2022-01-03 17:45] LABS: AMPHETAMINE SCREEN, URINE NEGATIVE (NEGATIVE); BARBITURATE SCREEN URINE NEGATIVE (NEGATIVE); BENZODIAZEPINES SCREEN URINE NEGATIVE (NEGATIVE); CANNABINOID SCREEN, URINE NEGATIVE (NEGATIVE); COCAINE SCREEN URINE NEGATIVE (NEGATIVE); METHADONE STAT NEGATIVE (NEGATIVE); OPIATE SCREEN URINE NEGATIVE (NEGATIVE); OXYCODONE STAT NEGATIVE (NEGATIVE); PROPOXYPHENE STAT NEGATIVE (NEGATIVE); TRICYCLIC ANTIDEPRESSANTS SCRE NEGATIVE (NEGATIVE)
[2022-01-03 17:47] LABS: BACTERIA,URINE TRACE /HPF; BILIRUBIN,URINE 1+ (NEGATIVE); CALCIUM OXALATE CRYSTALS,UR RARE /LPF; SQUAMOUS EPITHELIAL CELL,UR RARE /HPF; WBC,URINE 0-2 /HPF
[2022-01-03 17:48] LABS: HYALINE CASTS, URINE RARE /LPF
--- NOTE | 2022-01-03 18:55 | ED General ---
General Chief Complaint: General Problems/Pain Stated Complaint: GENERALIZED WEAKNESS/PAIN Nursing Triage Note: pt states he is weak, dizzy, can't keep anything down x 1 week Source of Information: Patient, EMS, Old Records Exam Limitations: No Limitations History of Present Illness Date Seen by Provider: January 03, 2022 Time Seen by Provider: 15:49 Initial Comments This 66-year-old gentleman presents to the emergency room with 2 months of abdominal pain, nausea, vomiting, and diarrhea. Symptoms have been much worse at over the past 1 to 2 weeks. He is now getting dizzy and weak. He reports he has not able to keep anything down. He has had some recent admissions that include diagnosis of pancreatitis. He was most recently admitted in October. Allergies and Home Medications Allergies Coded Allergies: ibuprofen (Verified Adverse Reaction, Unknown, Hypertension, pt has rec ASA in the past, 11/05/21) HYPERTENSION tramadol (Verified Adverse Reaction, Unknown, VOMIT, 10/03/18) Patient Home Medication List Home Medication List Reviewed: Yes Aspirin (Aspirin EC) 81 Mg Tablet., 81 MG PO DAILY Prescribed by: KAYLIN BURDEN on 11/10/21 151 Atorvastatin Calcium (Lipitor) 40 Mg Tablet, 40 MG PO HS Prescribed by: KAYLIN BURDEN on 11/10/211513 Ciprofloxacin HCl (Ciprofloxacin HCl) 500 Mg Tablet, 500 MG PO BID Prescribed by: TIMI MATTSON on 12/07/212233 Lisinopril (Lisinopril) 20 Mg Tablet, 40 MG PO DAILY Prescribed by: KAYLIN BURDEN on 11/10/21 151 Metronidazole (Metronidazole) 500 Mg Tablet, 500 MG PO QID Prescribed by: TIMI MATTSON on 12/07/212233 Ondansetron (Ondansetron Odt) 4 Mg Tab.rapdis, 4 MG PO Q4H Prescribed by: TIMI MATTSON on 12/07/212234 Oxycodone Hcl (Oxyir Tablet) 5 Mg Tab, 5 MG PO Q4HR PRN for PAIN-SEE DOSE INSTRUCTIONS Prescribed by: RUSSELL CRAMER on 11/10/21 09 Pantoprazole Sodium (Protonix) 40 Mg Tablet.dr, 40 MG PO DAILY Prescribed by: TIMI MATTSON on 12/07/212234 Review of Systems Review of Systems Constitutional: see HPI; No fever; weakness EENTM: no symptoms reported Respiratory: no symptoms reported Cardiovascular: see HPI, other (Dizzy) Gastrointestinal: see HPI Genitourinary: no symptoms reported Musculoskeletal: no symptoms reported Skin: no symptoms reported Psychiatric/Neurological: No Symptoms Reported Hematologic/Lymphatic: No Symptoms Reported Immunological/Allergic: no symptoms reported Past Yanwsdm-Hwkgnd-Bhordo Hx Patient Social History Tobacco Use?: Yes Use of E-Cig and/or Vaping dev: No Substance use?: No Alcohol Use?: Yes Alcohol Frequency: Rarely Pt feels they are or have been: No Immunizations Up To Date Tetanus Booster (TDap): Less than 5yrs PED Vaccines UTD: Yes First/Initial COVID19 Vaccinat: 09/2021 Second COVID19 Vaccination Jl: 10/2021 Third COVID19 Vaccination Date: 09/2021 Seasonal Allergies Seasonal Allergies: No Past Medical History Surgery/Hospitalization HX: BACK X 3, ROTATOR CUFF X 3, APPENDIX, GALLBLADDER Surgeries: Yes Appendectomy, Ear Surgery, Gallbladder, Orthopedic Respiratory: Yes (COVID PNEUMONIA 08/2021) Chronic Bronchitis Currently Using CPAP: No Currently Using BIPAP: No Cardiac: Yes High Cholesterol, Hypertension Neurological: Yes (TIA 01/2021; RESTLESS LEG SYNDROME) TIA Reproductive Disorders: No Sexually Transmitted Disease: No HIV/AIDS: No Genitourinary: No Gastrointestinal: Yes (ESOPHAGEAL STRICTURES/DILATIONS) Gastroesophageal Reflux Musculoskeletal: Yes (CHRONIC LEFT SHOULDER PAIN;CHRONIC NECK/BACK PAIN ) Degenerate Disk Disease, Arthritis, Chronic Back Pain Endocrine: No HEENT: Yes (POOR DENTITION; BMT'S;CHRONIC DYSPHAGIA AND HOARSENESS ) Dysphagia, Chronic Ear Infection Hearing Impairment: Hard of Hearing Cancer: Yes Skin Did You Recieve Any Treatments: Yes What Type of Treatment Did You: Surgical Intervention Psychosocial: Yes (POLYSUBSTANCE ABUSE AND OVERDOSES) Anxiety, Suicide Attempts, Depression Integumentary: No Blood Disorders: No Adverse Reaction/Blood Tranf: No (N/A) Family Medical History Reviewed Nursing Family Hx Cancer 03 FATHER (PROSTATE) 03 MOTHER (BREAST CA ) 09 BROTHER (THROAT/PANCREATIC) 09 SISTER (LIVER) DEAFNESS 03 FATHER 09 BROTHER Family history: Breast disease 03 MOTHER (BREAST CA) History of - respiratory disease Prostate cancer 03 FATHER Stroke 03 MOTHER Visual impairment No Pertinent Family Hx LONG HISTORY OF EXTREME NON-COMPLIANCE IN ALL ASPECTS OF CARE SOCIAL HISTORY: -SMOKES 2-3 PPD -ETOH--ABUSE/DAILY USE--ALSO DRINKS LARGE AMOUNTS OF NYQUIL DAILY; WITH HISTORY OF ALCOHOL WITHDRAWL SYMPTOMS -DRUGS-EXTENSIVE POLYSUBSTANCE ABUSE AND OVERDOSES--ESPECIALLY XANAX/BENZODIAZEPINES AND NARCOTICS/OPIATES; METHAMPHETAMINES -HAS HAD A MULTITUDE OF ACCIDENTS DUE TO SUBSTANCE ABUSE, HISTORY OF GETTING MULTIPLE RX'S FROM MULTIPROVIDERS USING MULTIPLE PHARMACIES; -HAS BEEN EVICTED FROM MULTIPLE REHAB /SUBSTANCE ABUSE TREATMENT FACILITIES, INCLUDING [facility], FOR EXTREME NON-COMPLIANCE. 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 % Physical Exam Vital Signs Vital Signs - First Documented 01/03/22 16:03 Temp 36.2 Pulse 95 Resp 20 B/P (MAP) 127/95 (106) Pulse Ox 95 O2 Delivery Room Air Capillary Refill : Less Than 3 Seconds Height, Weight, BMI Height: 5'6.00" Weight: 130lbs. 2.0oz. [id number]; 18.00 BMI Method:Stated General Appearance: No Apparent Distress, WD/WN, Thin HEENT: PERRL/EOMI, Normal ENT Inspection Neck: Normal Inspection Respiratory: Lungs Clear, Normal Breath Sounds, No Accessory Muscle Use Cardiovascular: Regular Rate, Rhythm, No Edema, No Murmur Gastrointestinal: Normal Bowel Sounds, Soft; No Distended; Tenderness (Across the upper abdomen, right greater than left) Extremity: Normal Inspection, No Pedal Edema Neurologic/Psychiatric: Alert, Oriented x3, No Motor/Sensory Deficits, Normal Mood/Affect, trimmer loader II-XII Norm as Tested Skin: Normal Color, Warm/Dry Progress/Results/Core Measures Suspected Sepsis SIRS Temperature: Pulse: 95 Respiratory Rate: 20 Laboratory Tests 01/03/22 15:55: White Blood Count 6.9 Blood Pressure 127 /95 Mean: 106 Laboratory Tests 01/03/22 15:55: Creatinine 0.72, Platelet Count 104L, Total Bilirubin 0.9 Results/Orders Lab Results Laboratory Tests Test 01/03/22 15:51 01/03/22 15:55 01/03/22 17:13 Range/Units Influenza Type A (RT-PCR) Not Detected Not Detecte Influenza Type B (RT-PCR) Not Detected Not Detecte SARS-CoV-2 RNA (RT-PCR) Not Detected Not Detecte White Blood Count 6.9 4.3-11.0 10^3/uL Red Blood Count 4.10 L 4.30-5.52 10^6/uL Hemoglobin 13.6 13.3-17.7 g/dL Hematocrit 41 40-54 % Mean Corpuscular Volume 99 80-99 fL Mean Corpuscular Hemoglobin 33 25-34 pg Mean Corpuscular Hemoglobin Concent 33 32-36 g/dL Red Cell Distribution Width 15.6 H 10.0-14.5 % Platelet Count 104 L 130-400 10^3/uL Mean Platelet Volume 9.4 9.0-12.2 fL Immature Granulocyte % (Auto) 0 % Neutrophils (%) (Auto) 74 42-75 % Lymphocytes (%) (Auto) 18 12-44 % Monocytes (%) (Auto) 7 0-12 % Eosinophils (%) (Auto) 1 0-10 % Basophils (%) (Auto) 0 0-10 % Neutrophils # (Auto) 5.1 1.8-7.8 X 10^3 Lymphocytes # (Auto) 1.2 1.0-4.0 X 10^3 Monocytes # (Auto) 0.5 0.0-1.0 X 10^3 Eosinophils # (Auto) 0.1 0.0-0.3 10^3/uL Basophils # (Auto) 0.0 0.0-0.1 10^3/uL Immature Granulocyte # (Auto) 0.0 0.0-0.1 10^3/uL Sodium Level 139 135-145 MMOL/L Potassium Level 3.1 L 3.6-5.0 MMOL/L Chloride Level 100 98-107 MMOL/L Carbon Dioxide Level 24 21-32 MMOL/L Anion Gap 15 H 5-14 MMOL/L Blood Urea Nitrogen 16 7-18 MG/DL Creatinine 0.72 0.60-1.30 MG/DL Estimat Glomerular Filtration Rate 101 BUN/Creatinine Ratio 22 Glucose Level 119 H 70-105 MG/DL Calcium Level 8.9 8.5-10.1 MG/DL Corrected Calcium 9.4 8.5-10.1 MG/DL Magnesium Level 1.4 L 1.6-2.4 MG/DL Total Bilirubin 0.9 0.1-1.0 MG/DL Aspartate Amino Transf (AST/SGOT) 18 5-34 U/L Alanine Aminotransferase (ALT/SGPT) 9 0-55 U/L Alkaline Phosphatase 100 40-136 U/L C-Reactive Protein High Sensitivity 2.11 H 0.00-0.50 MG/DL Total Protein 6.5 6.4-8.2 GM/DL Albumin 3.4 3.2-4.5 GM/DL Lipase 300 H 8-78 U/L Serum Alcohol < 10 <10 MG/DL Urine Color YELLOW Urine Clarity CLEAR Urine pH 6.5 5-9 Urine Specific [place] 1.020 1.016-1.022 Urine Protein 1+ H NEGATIVE Urine Glucose (UA) NEGATIVE NEGATIVE Urine Ketones TRACE H NEGATIVE Urine Nitrite NEGATIVE NEGATIVE Urine Bilirubin 1+ H NEGATIVE Urine Urobilinogen 0.2 < = 1.0 MG/DL Urine Leukocyte Esterase TRACE H NEGATIVE Urine RBC (Auto) NEGATIVE NEGATIVE Urine RBC NONE /HPF Urine WBC 0-2 /HPF Urine Squamous Epithelial Cells RARE /HPF Urine Crystals PRESENT H /LPF Urine Calcium Oxalate Crystals RARE H /LPF Urine Bacteria TRACE /HPF Urine Casts PRESENT /LPF Urine Hyaline Casts RARE /LPF Urine Mucus MODERATE H /LPF Urine Culture Indicated NO Urine Opiates Screen NEGATIVE NEGATIVE Urine Oxycodone Screen NEGATIVE NEGATIVE Urine Methadone Screen NEGATIVE NEGATIVE Urine Propoxyphene Screen NEGATIVE NEGATIVE Urine Barbiturates Screen NEGATIVE NEGATIVE Ur Tricyclic Antidepressants Screen NEGATIVE NEGATIVE Urine Phencyclidine Screen NEGATIVE NEGATIVE Urine Amphetamines Screen NEGATIVE NEGATIVE Urine Methamphetamines Screen NEGATIVE NEGATIVE Urine Benzodiazepines Screen NEGATIVE NEGATIVE Urine Cocaine Screen NEGATIVE NEGATIVE Urine Cannabinoids Screen NEGATIVE NEGATIVE My Orders Orders - KRISTINA MONCADA MD Cbc With Automated Diff (01/03/22 15:53) Comprehensive Metabolic Panel (01/03/22 15:53) Hs C Reactive Protein (01/03/22 15:53) Lipase (01/03/22 15:53) Magnesium (01/03/22 15:53) Ua Culture If Indicated (01/03/22 15:53) Ed Iv/Invasive Line Start (01/03/22 15:53) Lactated Ringers (Lr 1000 Ml Iv Solution (01/03/22 16:00) Covid 19 Inhouse Test (01/03/22 15:53) Influenza A And B By Pcr (01/03/22 15:53) Famotidine Injection (Pepcid Injection) (01/03/22 16:00) Fentanyl Inj (Sublimaze Injection) (01/03/22 16:00) Potassium Cl 10meq/50ml Ivpb (Kcl 10 Meq (01/03/22 16:30) Ns Iv 1000 Ml (Sodium Chloride 0.9%) (01/03/22 16:30) Magnesium 1 Gm/100 Ml Ivpb (Magnesium Eubanks (01/03/22 17:00) Alcohol (01/03/22 16:49) Drug Screen Stat (Urine) (01/03/22 16:49) Ondansetron Injection (Zofran Injectio (01/03/22 17:00) Lidocaine 2% Viscous 15 Ml (Xylocaine Vi (01/03/22 17:00) Antacid Suspension (Mylanta Suspension (01/03/22 17:00) Hyoscyamine Sl Tablet (Levsin Sl Tablet) (01/03/22 19:00) Fentanyl Inj (Sublimaze Injection) (01/03/22 19:00) Stool Culture (01/03/22 18:57) Fecal Wbc (01/03/22 18:57) C Difficile Ag + Toxin A/B. (01/03/22 18:57) Occult Blood Stool (01/03/22 19:06) Medications Given in ED Current Medications Medications Dose Ordered Sig/Isabell Route Start Time Stop Time Status Last Admin Dose Admin Al Hydrox/Mg Hydrox/Simethicone 30 ml ONCE ONCE PO 01/03/22 17:00 01/03/22 17:01 DC 01/03/22 17:17 30 ML Famotidine 20 mg ONCE ONCE IVP 01/03/22 16:00 01/03/22 16:01 DC 01/03/22 16:12 20 MG Fentanyl Citrate 50 mcg ONCE ONCE IVP 01/03/22 16:00 01/03/22 16:01 DC 01/03/22 16:13 50 MCG Fentanyl Citrate 50 mcg ONCE ONCE IVP 01/03/22 19:00 01/03/22 19:01 DC 01/03/22 19:08 50 MCG Hyoscyamine Sulfate 0.25 mg ONCE ONCE SL 01/03/22 19:00 01/03/22 19:01 DC 01/03/22 19:08 0.25 MG Lactated Ringer's 1,000 ml @ 0 mls/hr Q0M ONCE IV 01/03/22 16:00 01/03/22 16:01 DC 01/03/22 16:13 999 MLS/HR Lidocaine HCl 15 ml ONCE ONCE PO 01/03/22 17:00 01/03/22 17:01 DC 01/03/22 17:17 15 ML Magnesium Sulfate/ Dextrose 100 ml @ 100 mls/hr ONCE ONCE IV 01/03/22 17:00 01/03/22 17:59 DC 01/03/22 16:52 100 MLS/HR Ondansetron HCl 8 mg ONCE ONCE IVP 01/03/22 17:00 01/03/22 17:01 DC 01/03/22 17:17 8 MG Potassium Chloride 50 ml @ 50 mls/hr ONCE ONCE IV 01/03/22 16:30 01/03/22 17:29 DC 01/03/22 16:52 50 MLS/HR Vital Signs/I&O 01/03/22 16:03 Temp 36.2 Pulse 95 Resp 20 B/P (MAP) 127/95 (106) Pulse Ox 95 O2 Delivery Room Air Capillary Refill : Less Than 3 Seconds Blood Pressure Mean: 106 Progress Note : Time: 19:02 Progress Note Patient was seen and examined upon arrival. Fentanyl was used to treat his pain. He did receive a second dose later in the ER visit. Zofran was used for nausea. A GI cocktail was used as a trial therapy. He did not notice any improvement with GI cocktail. Stool specimen was sent. He received a liter of LR initially. When hypokalemia was noted, he also received a liter of normal saline accompanying 10 mEq of potassium chloride. He additionally received a gram of magnesium sulfate to treat hypomagnesemia. Patient did not feel he could tolerate his symptoms at home. Even though he was concerned about leaving his dog at home, he felt admission was necessary as he was not able to tolerate his symptoms at home. Patient did have a history of alcohol and substance abuse but denies any recent use. He had a couple drinks of alcohol more than a week ago to try to treat the pain. It was not effective so he did not drink any further. I discussed CODE STATUS with the patient, and he elects full code. Departure Communication (Admissions) Time/Spoke to Admitting Phy: 18:45 Dr. Cramer Impression Primary Impression: Pancreatitis Qualified Codes: K85.90 - Acute pancreatitis without necrosis or infection, unspecified Additional Impressions: Upper abdominal pain Hypokalemia Hypomagnesemia Nausea vomiting and diarrhea Disposition: ADMITTED INPATIENT Condition: Improved Admissions Decision to Admit Reason: Admit from ER (General) Decision to Admit/Date: January 03, 2022 Time/Decision to Admit Time: 18:45 Departure-Patient Inst. Referrals: [facility]/LAY (PCP/Family) Primary Care Physician Copy Copies To 1: [facility]/KRISTINA SANCHEZ MD January 03, 2022 18:55
[2022-01-03] MEDS ORDERED: HYOSCYAMINE 0.125 MG (LEVSIN) TAB SL ONE (19:00)
[2022-01-03 20:46] VITALS: BP 156/92
[2022-01-03] MEDS ORDERED: HYOSCYAMINE 0.125 MG (LEVSIN) TAB SL PRN (21:30)
[2022-01-03] MEDS ORDERED: ONDANSETRON 4 MG/2 ML (SDV) Z0FRAN IV PRN (21:30)
[2022-01-03] MEDS: NS W/KCL 40 MEQ/L 1,000 ML IV SCH (21:35)
[2022-01-03] MEDS: fentaNYL INJ 100 MCG/2 ML AMP IV PRN (21:41)
[2022-01-04] MEDS: fentaNYL INJ 100 MCG/2 ML AMP IV PRN ×4 (00:01→06:06)
[2022-01-04 00:26] VITALS: BP 160/97
[2022-01-04] MEDS: NS W/KCL 40 MEQ/L 1,000 ML IV SCH ×3 (04:06→16:50)
[2022-01-04 04:29] VITALS: BP 163/68
[2022-01-04 06:31] LABS: NEUTROPHILS % (AUTO) 58 % (42-75)
[2022-01-04 06:33] LABS: BASOPHILS % (AUTO) 1 % (0-10); EOSINOPHILS # (AUTO) 0.1 10^3/uL (0.0-0.3); EOSINOPHILS % (AUTO) 2 % (0-10); HEMATOCRIT 36 % (40-54); HEMOGLOBIN 11.6 g/dL (13.3-17.7); LYMPHOCYTES # (AUTO) 1.5 10^3/uL (1.0-4.0); LYMPHOCYTES % (AUTO) 32 % (12-44); MEAN CORPUSCULAR HEMOGLOBIN 33 pg (25-34); MEAN CORPUSCULAR HGB CONC 33 g/dL (32-36); MEAN CORPUSCULAR VOLUME 102 fL (80-99); MEAN PLATELET VOLUME 10.4 fL (9.0-12.2); MONOCYTES # (AUTO) 0.3 10^3/uL (0.0-1.0); MONOCYTES % (AUTO) 7 % (0-12); NEUTROPHILS # (AUTO) 2.8 10^3/uL (1.8-7.8); PLATELET COUNT 85 10^3/uL (130-400); WHITE BLOOD COUNT 4.8 10^3/uL (4.3-11.0)
[2022-01-04 06:48] LABS: ALBUMIN 2.8 GM/DL (3.2-4.5); BILIRUBIN,TOTAL 0.7 MG/DL (0.1-1.0); CALCIUM 7.7 MG/DL (8.5-10.1); CREATININE SERUM 0.59 MG/DL (0.60-1.30); MAGNESIUM 1.7 MG/DL (1.6-2.4); POTASSIUM 4.1 MMOL/L (3.6-5.0); TOTAL PROTEIN 5.3 GM/DL (6.4-8.2)
[2022-01-04 07:44] VITALS: BP 156/68
[2022-01-04] MEDS: morphine INJ 4 MG/ML 1 ML (VIAL/SYRINGE) IV PRN ×4 (08:42→20:57)
[2022-01-04] MEDS: PANTOPRAZOLE 40 MG (PROTONIX) VIAL IV SCH (08:42)
[2022-01-04] MEDS ORDERED: HOLD METFORMIN - RECEIVED CONTRAST 20 ML VIAL IV SCH (10:00)
[2022-01-04] MEDS ORDERED: NS 100 ML (IVPB) BAG IV ONE (10:00)
[2022-01-04] MEDS ORDERED: IOHEXOL 350 MG/ML 100 ML (OMNIPAQUE 350) VIAL IV ONE (10:00)
--- NOTE | 2022-01-04 10:31 | History & Physical-Hospitalist ---
History of Present Illness HPI/Chief Complaint This 66-year-old gentleman presents to the emergency room with 2 months of abdominal pain, nausea, vomiting, and diarrhea. Symptoms have been much worse at over the past 1 to 2 weeks. He is now getting dizzy and weak. He reports he has not able to keep anything down. He has had some recent admissions that include diagnosis of pancreatitis. He was most recently admitted in October. Upon my arrival the patient reports pain predominantly left precordial and has been that way for the past several months worse with inspiration. He reports stable cough and sputum production nonpurulent without blood. He reports it does not matter whether he eats or not he was still having watery diarrhea although he has only been once since admission yesterday evening. He has had no night sweats chills or fever but over the past 2 months has had a 3 kg weight loss reporting poor p.o. intake. He is noted no melena or bright red blood per rectum. Date Seen 01/04/22 Time Seen by a Provider: 09:00 Attending Physician [facility] PCP Admitting Physician: Chris Acuña MD Attending Physician: Chris Acuña MD Referring Physician Date of Admission January 03, 2022 at 18:53 Home Medications & Allergies Home Medications Reviewed patient Home Medication Reconciliation performed by pharmacy medication reconciliations library technician and/or nursing. Patients Allergies have been reviewed. Allergies Allergies Coded Allergies ibuprofen (Verified Adverse Reaction, Unknown, Hypertension, pt has rec ASA in the past, 11/05/21) HYPERTENSION tramadol (Verified Adverse Reaction, Unknown, VOMIT, 10/03/18) Past Ntuczhg-Lwxdqu-Cgizdm Hx Patient Social History Tobacco Use?: Yes Tobacco type used: Cigarettes Smoking Status: Current Everyday Smoker Use of E-Cig and/or Vaping dev: No Substance use?: No Alcohol Use?: No Alcohol Frequency: Rarely Pt feels they are or have been: No Immunizations Up To Date Date of Influenza Vaccine: Jun 05, 2020 First/Initial COVID19 Vaccinat: 09/2021 Second COVID19 Vaccination Jl: 10/2021 Tetanus Booster (TDap): Less Than 5 Years Hepatitis A: No Hepatitis B: No PED Vaccines UTD: Yes Date of Pneumonia Vaccine: Jun 05, 2020 Seasonal Allergies Seasonal Allergies: No Current Status Advance Directives: No Communicates: Verbally Primary Language: Faroese Preferred Spoken Language: Faroese Is interpretation needed?: No Implanted or Applied Medical D: None Past Medical History Surgeries: Appendectomy, Ear Surgery, Gallbladder, Orthopedic Chronic Bronchitis Currently Using CPAP: No Currently Using BIPAP: No High Cholesterol, Hypertension TIA Sexually Transmitted Disease: No HIV/AIDS: No Gastroesophageal Reflux Degenerate Disk Disease, Arthritis, Chronic Back Pain Dysphagia, Chronic Ear Infection Hearing Impairment: Hard of Hearing Skin Did You Recieve Any Treatments: Yes What Type of Treatment Did You: Surgical Intervention Anxiety, Suicide Attempts, Depression Blood Disorders: No Adverse Reaction/Blood Tranf: No (N/A) Family Medical History Reviewed Nursing Family Hx Cancer 03 FATHER (PROSTATE) 03 MOTHER (BREAST CA ) 09 BROTHER (THROAT/PANCREATIC) 09 SISTER (LIVER) DEAFNESS 03 FATHER 09 BROTHER Family history: Breast disease 03 MOTHER (BREAST CA) History of - respiratory disease Prostate cancer 03 FATHER Stroke 03 MOTHER Visual impairment No Pertinent Family Hx LONG HISTORY OF EXTREME NON-COMPLIANCE IN ALL ASPECTS OF CARE SOCIAL HISTORY: -SMOKES 2-3 PPD -ETOH--ABUSE/DAILY USE--ALSO DRINKS LARGE AMOUNTS OF NYQUIL DAILY; WITH HISTORY OF ALCOHOL WITHDRAWL SYMPTOMS -DRUGS-EXTENSIVE POLYSUBSTANCE ABUSE AND OVERDOSES--ESPECIALLY XANAX/BENZODIAZEPINES AND NARCOTICS/OPIATES; METHAMPHETAMINES -HAS HAD A MULTITUDE OF ACCIDENTS DUE TO SUBSTANCE ABUSE, HISTORY OF GETTING MULTIPLE RX'S FROM MULTIPROVIDERS USING MULTIPLE PHARMACIES; -HAS BEEN EVICTED FROM MULTIPLE REHAB /SUBSTANCE ABUSE TREATMENT FACILITIES, INCLUDING [facility], FOR EXTREME NON-COMPLIANCE. 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 % Review of Systems Constitutional: see HPI Physical Exam Physical Exam Vital Signs Vital Signs - First Documented 01/03/22 16:03 Temp 36.2 Pulse 95 Resp 20 B/P (MAP) 127/95 (106) Pulse Ox 95 O2 Delivery Room Air Capillary Refill : Less Than 3 Seconds Height, Weight, BMI Height: 5'6.00" Weight: 130lbs. 2.0oz. 59.395428mo; 18.55 BMI Method:Stated General Appearance: Mild Distress Respiratory: No Accessory Muscle Use, No Respiratory Distress, Other (Scattered rhonchi with mild inspiratory and expiratory wheezing no focal consolidative findings noted. Left chest wall pain to palpation predominantly over the ribs no costochondral pain to palpation. No overt bony abnormality noted to palpation.) Cardiovascular: Regular Rate, Rhythm, No Edema, No Gallop, No JVD, No Murmur ( Difficult to hear however over breath sounds), Normal Peripheral Pulses Gastrointestinal: Normal Bowel Sounds, No Organomegaly, No Pulsatile Mass, Non Tender, Soft Extremity: Normal Capillary Refill, Normal Inspection, Normal Range of Motion, Non Tender, No Calf Tenderness, No Pedal Edema Results Results/Procedures Labs Laboratory Tests 01/03/22 15:55 01/04/22 05:14 Patient resulted labs reviewed. Assessment/Plan Admission Diagnosis Probable pancreatitis however now with predominant chest pain and a heavy smoker with no significant abdominal pain reported or noted to palpation diagnosis is questionable. Will obtain CT scan of the chest and abdomen with oral and IV contrast for further investigation. Diarrhea with bouts of pancreatitis is not classic for steatorrhea will observe quantity of volume etc. in the hospital as he is only gone once I will hold pancreatic replacement for now but if significant diarrhea is noted we will likely give a trial this will also be pending what is noted on above CT results. Stool for C. difficile and fecal leukocytes negative. Dehydration secondary to diarrhea improving on IV fluids. Hypomagnesemia and hypokalemia corrected also likely due to diarrhea. Patient also reports that he does not wish to be resuscitated in any way or end up on a ventilator so we will initiate DNR status. Admission Status: Inpatient Order (span 2 midnights) Reason for Inpatient Admission: See admission diagnosis CHRIS ACUÑA MD January 04, 2022 10:31
--- NOTE | 2022-01-04 10:52 | Diagnostic Imaging Report ---
PROCEDURE: CT abdomen with contrast only. TECHNIQUE: Multiple contiguous axial images were obtained through the abdomen after the administration of intravenous contrast. Auto Exposure Controls were utilized during the CT exam to meet ALARA standards for radiation dose reduction. Date: January 04, 2022. Indication: 66-year-old male, pancreatitis. Abdominal pain. Comparison: CT chest, abdomen and pelvis December 07, 2021. Findings: There is a 5 mm nodular opacity in the right lower lobe which is fairly para middle in shape. This is unchanged since the comparison study. The heart is not enlarged. There is no pericardial effusion. The liver is unremarkable in size and contour. There is a 3 mm low-attenuation lesion of the left lobe of liver on axial image 42 which is too small to characterize as well as the lesion on axial image 26 in the left lobe of liver also measuring 3 mm in size. The main, right, and left portal veins are patent. There is mild to moderate intrahepatic bile duct dilation. The common bile duct is not abnormally dilated. The gallbladder surgically absent. The main pancreatic duct is not abnormally dilated. There is very mild inflammatory stranding adjacent to the pancreas without loss of normal pancreatic parenchymal architecture. There is no evidence of pancreatic necrosis. The spleen is normal in size. The adrenal glands are unremarkable. Unremarkable appearance of the renal parenchyma. The urinary collecting systems are not distended. The imaged portions of the intestinal tract are not distended. There is no free intraperitoneal air. There is no drainable fluid collection. There is no sizable volume free fluid in the abdomen. There are atherosclerotic calcifications. There is no identified abnormally enlarged lymph node in the abdomen meeting CT size criteria for adenopathy. There is spinal hardware noted. There is no identified acute bony abnormality. Impression: 1. Very mild inflammatory stranding adjacent to the pancreas without loss of pancreatic parenchymal architecture. This potentially could reflect mild acute pancreatitis. Recommend correlation with laboratory values. No evidence of pancreatic necrosis. 2. Mild to moderate intrahepatic bile duct dilation which is a new finding since December 07, 2021. There is no dilation of the common bile duct. Dictated by: Dictated on workstation # [id number]
[2022-01-04 11:05] VITALS: BP 129/72
[2022-01-04 15:36] VITALS: BP 147/75
[2022-01-04 19:20] VITALS: BP 134/64
[2022-01-05] VITALS: BP 126/70
[2022-01-05] MEDS: morphine INJ 4 MG/ML 1 ML (VIAL/SYRINGE) IV PRN ×3 (00:37→08:48)
[2022-01-05] MEDS: NS W/KCL 40 MEQ/L 1,000 ML IV SCH ×3 (01:27→12:39)
[2022-01-05 04:00] VITALS: BP 159/93
[2022-01-05 07:46] VITALS: BP 126/79
[2022-01-05] MEDS: PANTOPRAZOLE 40 MG (PROTONIX) VIAL IV SCH (08:48)
[2022-01-05] MEDS ORDERED: NICOTINE 14 MG (NICODERM) PATCH TD ONE (09:30)
--- NOTE | 2022-01-05 10:55 | Discharge Summary ---
Diagnosis/Chief Complaint Date of Admission January 03, 2022 at 18:53 Date of Discharge Admission Diagnosis Probable pancreatitis however now with predominant chest pain and a heavy smoker with no significant abdominal pain reported or noted to palpation diagnosis is questionable. Will obtain CT scan of the chest and abdomen with oral and IV contrast for further investigation. Diarrhea with bouts of pancreatitis is not classic for steatorrhea will observe quantity of volume etc. in the hospital as he is only gone once I will hold pancreatic replacement for now but if significant diarrhea is noted we will likely give a trial this will also be pending what is noted on above CT results. Stool for C. difficile and fecal leukocytes negative. Dehydration secondary to diarrhea improving on IV fluids. Hypomagnesemia and hypokalemia corrected also likely due to diarrhea. Patient also reports that he does not wish to be resuscitated in any way or end up on a ventilator so we will initiate DNR status. Primary Care Center/[facility] Discharge Summary Discharge Physical Exam Allergies: Coded Allergies: ibuprofen (Verified Adverse Reaction, Unknown, Hypertension, pt has rec ASA in the past, 11/05/21) HYPERTENSION tramadol (Verified Adverse Reaction, Unknown, VOMIT, 10/03/18) Vitals & I&Os Vital Signs Date Time Temp Pulse Resp B/P (MAP) Pulse Ox O2 Delivery O2 Flow Rate FiO2 01/05/22 08:00 97 Room Air 01/05/22 07:46 36.8 73 18 126/79 (95) General Appearance: No Apparent Distress Respiratory: Chest Non Tender, Lungs Clear, Normal Breath Sounds, No Accessory Muscle Use, No Respiratory Distress Cardiovascular: Regular Rate, Rhythm, No Edema, No Gallop, No JVD, No Murmur, Normal Peripheral Pulses Gastrointestinal: Normal Bowel Sounds, No Organomegaly, No Pulsatile Mass, Non Tender, Soft Neurologic/Psychiatric: Alert, Oriented x3 Hospital Course Was the Problem List Reviewed?: Yes This 66-year-old gentleman presents to the emergency room with 2 months of abdominal pain, nausea, vomiting, and diarrhea. Symptoms have been much worse at over the past 1 to 2 weeks. He is now getting dizzy and weak. He reports he has not able to keep anything down. He has had some recent admissions that i nclude diagnosis of pancreatitis. He was most recently admitted in October. Upon my arrival the patient reports pain predominantly left precordial and has been that way for the past several months worse with inspiration. He reports stable cough and sputum production nonpurulent without blood. He reports it does not matter whether he eats or not he was still having watery diarrhea although he has only been once since admission yesterday evening. He has had no night sweats chills or fever but over the past 2 months has had a 3 kg weight loss reporting poor p.o. intake. He is noted no melena or bright red blood per rectum.During his hospital stay he exhibited no diarrhea and complained of no abdominal pain. Repeat CT scan of the abdomen compared to November did reveal some stranding about the head of the pancreas without evidence for mass. The common duct was not dilated but intrahepatic ducts did appear to be dilated. CT scan specifically CTA done in November was reviewed and did not reveal any evidence for malignancy and no bony abnormalities were noted with no evidence for pulmonary embolism. Emphysema changes were noted. Patient has a long history of polysubstance abuse including alcohol with longstanding noncompliance. Did discuss need to see a GI specialist for consideration for endoscopic ultrasound and/or ERCP considering recurrent pancreatitis and intrahepatic ductal dilatati on. Discussed today's CT scan in no way rule out the possibility of common duct stone stricturing or pancreatic duct stones as well as the fact that underlying malignancy has not been ruled out either. He was strongly encouraged to follow- up with Dr. Denton at [facility]. Labs (last 24 hrs) Microbiology 01/03/22 Fecal Leukocyte Stain - Final, Resulted 01/03/22 C. difficile GDH Antigen & Toxins - Final, Resulted 01/03/22 Stool Culture, Resulted Pending Patient resulted labs reviewed. Discussion & Recommendations Discharge Planning: >30 minutes discharge planning Discharge Home Medications: Active Scripts Active Protonix (Pantoprazole Sodium) 40 Mg Tablet. 40 Mg PO DAILY Ondansetron Odt (Ondansetron) 4 Mg Tab.rapdis 4 Mg PO Q4H Metronidazole 500 Mg Tablet 500 Mg PO QID Ciprofloxacin HCl 500 Mg Tablet 500 Mg PO BID Aspirin EC (Aspirin) 81 Mg Tablet. 81 Mg PO DAILY 30 Days SENT TO [facility] Lisinopril 20 Mg Tablet 40 Mg PO DAILY 30 Days SENT TO [facility] Lipitor (Atorvastatin Calcium) 40 Mg Tablet 40 Mg PO HS 30 Days SENT TO [facility] Oxyir Tablet (Oxycodone HCl) 5 Mg Tab 5 Mg PO Q4HR PRN 7 Days Instructions to patient/family Please see electronic discharge instructions given to patient. Copy Copies To 1: LUZ ELENA DENTON MD, MARK D MD January 05, 2022 10:55
[2022-01-05 11:00] VITALS: BP 126/79
[2022-01-06] MEDS ORDERED: NICOTINE PATCH REMOVAL TP SCH (08:59)
[2022-01-06] MEDS ORDERED: NICOTINE 14 MG (NICODERM) PATCH TD SCH (09:00)
--- NOTE | 2022-01-06 14:35 | Physician Query-Final Dx ---
MARY ROWE 01/06/22 1435: Final Diagnosis Give Final Diagnosis Please give Final Diagnosis RUSSELL ACUÑA MD 01/07/22 1101: Final Diagnosis Give Final Diagnosis acute pancreatitis MARY ROWE January 06, 2022 14:35 RUSSELL ACUÑA MD January 07, 2022 11:01
== END 2022-01-05 13:40 | disposition home or self-care (01) | DRG 440 ==
LOC: EDUNIT# 15:48 → ER 15:49 → 4TH 18:53
PROVIDERS: ADMIT Internal Medicine; ATTEND Internal Medicine
DX: K85.90 Acute pancreatitis without necrosis or infection, unspecified (principal); E86.0 Dehydration; E87.6 Hypokalemia; E83.42 Hypomagnesemia; J43.9 Emphysema, unspecified; F17.210 Nicotine dependence, cigarettes, uncomplicated; K21.9 Gastro-esophageal reflux disease without esophagitis; G25.81 Restless legs syndrome; Z66 Do not resuscitate; I10 Essential (primary) hypertension; E78.00 Pure hypercholesterolemia, unspecified; F41.9 Anxiety disorder, unspecified; F32.A Depression, unspecified; F19.10 Other psychoactive substance abuse, uncomplicated; F10.10 Alcohol abuse, uncomplicated; Y90.0 Blood alcohol level of less than 20 mg/100 ml; K76.89 Other specified diseases of liver; Z91.19 Patient's noncompliance with other medical treatment and regimen; Z88.6 Allergy status to analgesic agent; Z88.5 Allergy status to narcotic agent; Z79.82 Long term (current) use of aspirin; Z86.73 Personal history of transient ischemic attack (TIA), and cerebral infarction without residual deficits
CPT/HCPCS: 36415; 74160; 80053; 80306; 80320; 81000; 82274; 83690; 83735; 85025; 86141; 87015; 87045; 87046; 87077; 87324; 87449; 87636; 87899; 89055; 96374; 96375; 96376

== ENCOUNTER 2022-03-11 17:54 | Emergency (ER) | payer MEDICARE ==
[~2022-03-11] VITALS: Ht 167.7 cm; Wt 55.0 kg
[2022-03-11 18:15] VITALS: BP_SYST 104; BP_SYST 99; BP_DIAS 64; BP_DIAS 71
[2022-03-11] MEDS ORDERED: NS IV 1000 ML 1,000 ML IV SCH ×2 (18:15→18:45)
[2022-03-11 18:20] LABS: BASOPHILS # (AUTO) 0.1 10^3/uL (0.0-0.1); BASOPHILS % (AUTO) 1 % (0-10); EOSINOPHILS % (AUTO) 0 % (0-10); HEMATOCRIT 48 % (40-54); HEMOGLOBIN 15.7 g/dL (13.3-17.7); LYMPHOCYTES # (AUTO) 2.6 10^3/uL (1.0-4.0); LYMPHOCYTES % (AUTO) 27 % (12-44); MEAN CORPUSCULAR HEMOGLOBIN 34 pg (25-34); MEAN CORPUSCULAR HGB CONC 32 g/dL (32-36); MEAN CORPUSCULAR VOLUME 105 fL (80-99); MEAN PLATELET VOLUME 9.5 fL (9.0-12.2); MONOCYTES # (AUTO) 0.7 10^3/uL (0.0-1.0); MONOCYTES % (AUTO) 8 % (0-12); NEUTROPHILS # (AUTO) 6.4 10^3/uL (1.8-7.8); NEUTROPHILS % (AUTO) 65 % (42-75); PLATELET COUNT 370 10^3/uL (130-400); WHITE BLOOD COUNT 9.9 10^3/uL (4.3-11.0)
[2022-03-11 18:25] LABS: ALBUMIN 4.7 GM/DL (3.2-4.5)
[2022-03-11 18:26] LABS: CHLORIDE 104 MMOL/L (98-107); POTASSIUM 3.7 MMOL/L (3.6-5.0); SODIUM 139 MMOL/L (135-145)
[2022-03-11 18:27] LABS: CALCIUM 10.1 MG/DL (8.5-10.1)
[2022-03-11 18:28] LABS: GLUCOSE 158 MG/DL (70-105); TOTAL PROTEIN 8.1 GM/DL (6.4-8.2)
[2022-03-11 18:29] LABS: CARBON DIOXIDE 20 MMOL/L (21-32)
[2022-03-11 18:30] LABS: BILIRUBIN,TOTAL 0.5 MG/DL (0.1-1.0)
[2022-03-11 18:31] LABS: ALKALINE PHOSPHATASE 82 U/L (40-136)
[2022-03-11 18:32] LABS: CREATININE SERUM 2.07 MG/DL (0.60-1.30); GFR ESTIMATED 34
[2022-03-11 18:33] LABS: BUN/CREATININE RATIO 11
[2022-03-11 18:35] LABS: ALANINE AMINOTRANSFERASE 26 U/L (0-55)
--- NOTE | 2022-03-11 18:37 | ED Syncope ---
General Chief Complaint: Dizziness/Syncope Stated Complaint: SYNCOPE, HYPOTENSION Nursing Triage Note: pt to room by [facility]. ems reports pt passes out this am, hit his head on a curb, and is complaining of neck pain. pt reports having neck pain for a month or more, but this fall made the neck pain worse. pt arrived with c-collar in place. ems report pt passed out again this afternoon and was caught by a friend with no trauma reported. pt A&Ox4, speech normal on arrival Source of Information: Patient Exam Limitations: No Limitations History of Present Illness Date Seen by Provider: Mar 11, 2022 Time Seen by Provider: 18:08 Initial Comments Patient to ER by EMS from home with chief complaint he was in his apartment in her conditioning when he had a syncopal episode this afternoon and was caught by a friend. Another time where he hit his head this morning on a curb while outside. He has a history of chronic neck and low back pain that has been aggravated by this. Has had surgery on his neck. He has constant problems with loose stools and poor control of his bowels going on for years. No numbness or tingling but he feels weak all over and says that he walks back and forth from [place] to [place] on a daily basis for the past 3 days. He has been taking lisinopril for blood pressure but denies taking it recently. He has a history of esophageal strictures and had Dr. Elise scoped him in the past. He has not seen anybody recently but he feels like it is getting bad again. Allergies and Home Medications Allergies Coded Allergies: ibuprofen (Verified Adverse Reaction, Unknown, Hypertension, pt has rec ASA in the past, 11/05/21) HYPERTENSION tramadol (Verified Adverse Reaction, Unknown, VOMIT, 10/03/18) Patient Home Medication List Home Medication List Reviewed: Yes Aspirin (Aspirin EC) 81 Mg Tablet.dr 81 MG PO DAILY Prescribed by: KAYLIN BURDEN on 11/10/211513 Atorvastatin Calcium (Lipitor) 40 Mg Tablet, 40 MG PO HS Prescribed by: KAYLIN BURDEN on 11/10/211513 Lisinopril (Lisinopril) 20 Mg Tablet, 40 MG PO DAILY Prescribed by: KAYLIN BURDEN on 11/10/21 151 Ondansetron (Ondansetron Odt) 4 Mg Tab.rapdis, 4 MG PO Q4H Prescribed by: TIMI MATTSON on 12/07/212234 Pantoprazole Sodium (Protonix) 40 Mg Tablet.dr, 40 MG PO DAILY Prescribed by: TIMI MATTSON on 12/07/212234 Review of Systems Constitutional: No chills, No diaphoresis; dizziness; No fever EENTM: No ear discharge, No hearing loss Respiratory: No cough, No short of breath Cardiovascular: No chest pain, No edema Gastrointestinal: see HPI; No abdominal pain, No constipation, No diarrhea, No nausea Genitourinary: No discharge, No dysuria Past Knuezkz-Pusags-Avzpuf Hx Patient Social History Tobacco Use?: No Use of E-Cig and/or Vaping dev: No Substance use?: No Immunizations Up To Date Tetanus Booster (TDap): Less than 5yrs PED Vaccines UTD: Yes First/Initial COVID19 Vaccinat: 09/2021 Second COVID19 Vaccination Jl: 10/2021 Third COVID19 Vaccination Date: 09/2021 Seasonal Allergies Seasonal Allergies: No Past Medical History Surgery/Hospitalization HX: BACK X 3, ROTATOR CUFF X 3, APPENDIX, GALLBLADDER Surgeries: Yes Appendectomy, Ear Surgery, Gallbladder, Orthopedic Respiratory: Yes (COVID PNEUMONIA 08/2021) Chronic Bronchitis Currently Using CPAP: No Currently Using BIPAP: No Cardiac: Yes High Cholesterol, Hypertension Neurological: Yes (TIA 01/2021; RESTLESS LEG SYNDROME) TIA Reproductive Disorders: No Sexually Transmitted Disease: No HIV/AIDS: No Genitourinary: No Gastrointestinal: Yes (ESOPHAGEAL STRICTURES/DILATIONS) Gastroesophageal Reflux Musculoskeletal: Yes (CHRONIC LEFT SHOULDER PAIN;CHRONIC NECK/BACK PAIN ) Degenerate Disk Disease, Arthritis, Chronic Back Pain Endocrine: No HEENT: Yes (POOR DENTITION; BMT'S;CHRONIC DYSPHAGIA AND HOARSENESS ) Dysphagia, Chronic Ear Infection Hearing Impairment: Hard of Hearing Cancer: Yes Skin Did You Recieve Any Treatments: Yes What Type of Treatment Did You: Surgical Intervention Psychosocial: Yes (POLYSUBSTANCE ABUSE AND OVERDOSES) Anxiety, Suicide Attempts, Depression Integumentary: No Blood Disorders: No Adverse Reaction/Blood Tranf: No (N/A) Family Medical History Cancer 03 FATHER (PROSTATE) 03 MOTHER (BREAST CA ) 09 BROTHER (THROAT/PANCREATIC) 09 SISTER (LIVER) DEAFNESS 03 FATHER 09 BROTHER Family history: Breast disease 03 MOTHER (BREAST CA) History of - respiratory disease Prostate cancer 03 FATHER Stroke 03 MOTHER Visual impairment No Pertinent Family Hx LONG HISTORY OF EXTREME NON-COMPLIANCE IN ALL ASPECTS OF CARE SOCIAL HISTORY: -SMOKES 2-3 PPD -ETOH--ABUSE/DAILY USE--ALSO DRINKS LARGE AMOUNTS OF NYQUIL DAILY; WITH HISTORY OF ALCOHOL WITHDRAWL SYMPTOMS -DRUGS-EXTENSIVE POLYSUBSTANCE ABUSE AND OVERDOSES--ESPECIALLY XANAX/BENZODIAZEPINES AND NARCOTICS/OPIATES; METHAMPHETAMINES -HAS HAD A MULTITUDE OF ACCIDENTS DUE TO SUBSTANCE ABUSE, HISTORY OF GETTING MULTIPLE RX'S FROM MULTIPROVIDERS USING MULTIPLE PHARMACIES; -HAS BEEN EVICTED FROM MULTIPLE REHAB /SUBSTANCE ABUSE TREATMENT FACILITIES, INCLUDING [facility], FOR EXTREME NON-COMPLIANCE. 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 % Physical Exam Vital Signs Vital Signs - First Documented 03/11/22 17:55 Temp 36.8 Pulse 74 Resp 21 B/P (MAP) 98/69 (79) Pulse Ox 98 Capillary Refill : Height, Weight, BMI Height: 5'6.00" Weight: 130lbs. 2.0oz. 59.145032to; 19.00 BMI Method:Stated General Appearance: No Apparent Distress, WD/WN HEENT: PERRL/EOMI; No Pharynx Normal (Dry oral mucosa), No Moist Mucous Membranes Neck: Full Range of Motion, Normal Inspection Cardiovascular: Regular Rate, Rhythm, No Edema, Normal Peripheral Pulses Respiratory: Lungs Clear, Normal Breath Sounds, No Accessory Muscle Use, No Respiratory Distress Gastrointestinal: Normal Bowel Sounds, Non Tender, Soft Extremities: Normal Capillary Refill, Normal Inspection, No Pedal Edema Neurologic/Psychiatric: Alert, Oriented x3 Cranial Nerves: Normal Hearing, Normal Speech, PERRL Motor/Sensory: No Motor Deficit, No Sensory Deficit Skin: Normal Color, Warm/Dry Progress/Results/Core Measures Results/Orders Lab Results Laboratory Tests Test 03/11/22 18:01 Range/Units White Blood Count 9.9 4.3-11.0 10^3/uL Red Blood Count 4.60 4.30-5.52 10^6/uL Hemoglobin 15.7 13.3-17.7 g/dL Hematocrit 48 40-54 % Mean Corpuscular Volume 105 H 80-99 fL Mean Corpuscular Hemoglobin 34 25-34 pg Mean Corpuscular Hemoglobin Concent 32 32-36 g/dL Red Cell Distribution Width 13.7 10.0-14.5 % Platelet Count 370 130-400 10^3/uL Mean Platelet Volume 9.5 9.0-12.2 fL Immature Granulocyte % (Auto) 0 % Neutrophils (%) (Auto) 65 42-75 % Lymphocytes (%) (Auto) 27 12-44 % Monocytes (%) (Auto) 8 0-12 % Eosinophils (%) (Auto) 0 0-10 % Basophils (%) (Auto) 1 0-10 % Neutrophils # (Auto) 6.4 1.8-7.8 10^3/uL Lymphocytes # (Auto) 2.6 1.0-4.0 10^3/uL Monocytes # (Auto) 0.7 0.0-1.0 10^3/uL Eosinophils # (Auto) 0.0 0.0-0.3 10^3/uL Basophils # (Auto) 0.1 0.0-0.1 10^3/uL Immature Granulocyte # (Auto) 0.0 0.0-0.1 10^3/uL Sodium Level 139 135-145 MMOL/L Potassium Level 3.7 3.6-5.0 MMOL/L Chloride Level 104 98-107 MMOL/L Carbon Dioxide Level 20 L 21-32 MMOL/L Anion Gap 15 H 5-14 MMOL/L Blood Urea Nitrogen 23 H 7-18 MG/DL Creatinine 2.07 H 0.60-1.30 MG/DL Estimat Glomerular Filtration Rate 34 BUN/Creatinine Ratio 11 Glucose Level 158 H 70-105 MG/DL Calcium Level 10.1 8.5-10.1 MG/DL Corrected Calcium 8.5-10.1 MG/DL Total Bilirubin 0.5 0.1-1.0 MG/DL Aspartate Amino Transf (AST/SGOT) 25 5-34 U/L Alanine Aminotransferase (ALT/SGPT) 26 0-55 U/L Alkaline Phosphatase 82 40-136 U/L Total Creatine Kinase 57 30-200 U/L Total Protein 8.1 6.4-8.2 GM/DL Albumin 4.7 H 3.2-4.5 GM/DL Serum Alcohol < 10 <10 MG/DL My Orders Orders - ROXANE COHEN Ike Cbc With Automated Diff (03/11/22 18:09) Comprehensive Metabolic Panel (03/11/22 18:09) Orthostatic Vital Signs (Adult (03/11/22 18:09) Ed Iv/Invasive Line Start (03/11/22 18:09) Ns Iv 1000 Ml (Sodium Chloride 0.9%) (03/11/22 18:15) Ct Head/Cervical Spine Wo (03/11/22 18:09) Ed Iv/Invasive Line Start (03/11/22 18:34) Ns Iv 1000 Ml (Sodium Chloride 0.9%) (03/11/22 18:45) Ua Culture If Indicated (03/11/22 18:34) Drug Screen Stat (Urine) (03/11/22 18:34) Alcohol (03/11/22 18:34) Creatine Kinase (03/11/22 18:34) Thoracic Spine, 2 Views Only (03/11/22 18:44) Lumbar Spine - 2-3 Views (03/11/22 18:44) Vital Signs/I&O 03/11/22 03/11/22 17:55 18:15 Temp 36.8 Pulse 74 80 75 Resp 21 B/P (MAP) 98/69 (79) 104/71 (82) 99/64 (76) Pulse Ox 98 Blood Pressure Mean: 76 Progress Progress Note #1: Time: 20:14 Progress Note After 2 L of normal saline his mouth is not as dry. We will get him up and walk him and if he does not have any more near syncope can go home and follow-up with general surgery, Dr. Rosa to discuss esophageal strictures and appropriate endoscopy. Progress Note #2: Time: 20:22 Progress Note About shelter down the [place] the patient was stumbling with nurse standby assist. He is very unstable on his feet. His creatinine is elevated with an DAKOTA. We recommend that he stay overnight for some IV fluids and monitoring given his history of frequent falls in the last day. The patient declined stating he really just wants to go home and he will follow-up outpatient. We will make this recommendation that he can go AGAINST MEDICAL ADVICE as long as he has someone to take him home and look after him which she does have someone will come for him. We have encouraged him strongly to drink lots of fluids tonight which she said he would do. He also declined any further fluids here in the ER Initial ECG Impression Date: Mar 11, 2022 Initial ECG Impression Time: 17:59 Initial ECG Rate: 80 Initial ECG Rhythm: Normal Sinus Initial ECG Intervals: Normal Initial ECG Impression: Normal Comment Normal sinus rhythm without clinically relevant ST changes Diagnostic Imaging Diagonstic Imaging: Xray Plain Films/CT/US/NM/MRI: other (Thoracic spine) Comments [facility] [place] NAME: LUZ ELENA [facility] REC#: [id number] PT STATUS: REG ER : 1955 PHYSICIAN: ROXANE COHEN MD ADMIT DATE: 03/11/22/ER Signed Date of Exam:03/11/22 THORACIC SPINE, 2 VIEWS ONLY INDICATION: Back pain and fall. CORRELATION made with lumbar radiographs from the same day. FINDINGS: There are previous operative changes of a thoracolumbar spinal fusion. Pedicle screws in the thoracic spine begin at the T10 level. There is an interbody device at L1-L2. AP and lateral alignment of the thoracic spine appear appropriate. The T12 vertebral body demonstrates compression with no further height loss compared to a prior CT of the abdomen and pelvis from January 042021. The remainder of the vertebral body heights appear maintained. There are no findings of a screw fracture. IMPRESSION: Thoracolumbar fusion construct with chronic depression of the superior endplate of T12. The remainder of the vertebral body heights are maintained. Alignment appears appropriate. No hardware complication is evident. Dictated by: Dictated on workstation # [id number] Dict: 03/11/221918 Trans: 03/11/221929 [facility] [id number] Interpreted by: MIYA GARCIA MD Electronically signed by: MIYA GARCIA MD 03/11/221929 Reviewed: Reviewed by Me Diagonstic Imaging: Xray Plain Films/CT/US/NM/MRI: other (Lumbar) Comments [facility] [place] [place] NAME: LUZ ELENA [facility] REC#: [id number] PT STATUS: REG ER : 1955 PHYSICIAN: ROXANE COHEN MD ADMIT DATE: 03/11/22/ER Draft Date of Exam:03/11/22 LUMBAR SPINE - 2-3 VIEWS EXAMINATION: Lumbosacral spine 2 or 3 views HISTORY: Low back pain COMPARISON: 11/14/2016 FINDINGS: There has been posterior spinal fusion and anterior spinal fusion of the lumbar spine. Vertebral body heights are normal. No acute fracture is seen. IMPRESSION: 1. Lumbar spine fusion, no acute fracture. Dictated on workstation # [id number] Dict: 03/11/221918 Trans: 03/11/221920 [facility] [id number] Interpreted by: EMILIA SOW MD Electronically signed by: Reviewed: Reviewed by Ga Diagonstic Imaging: CT Plain Films/CT/US/NM/MRI: c-spine, head Comments [facility] [place] [place] NAME: LUZ ELENA [facility] REC#: [id number] PT STATUS: REG ER : 1955 PHYSICIAN: ROXANE COHEN MD ADMIT DATE: 03/11/22/ER Draft Date of Exam:03/11/22 CT HEAD/CERVICAL SPINE WO EXAMINATION: CT head and CT cervical spine without contrast. TECHNIQUE: Multiple contiguous axial images were obtained through the brain and cervical spine without the use of intravenous contrast. Sagittal and coronal reformations through the cervical spine were then performed. All CT scans use one or more of the following dose optimizing techniques: automated exposure control, MA and/or KvP adjustment based on patient size and exam type or iterative reconstruction. HISTORY: Head and neck injury. COMPARISON: 01/24/2021 FINDINGS: The aguilar-white matter differentiation is normal. No mass effect or midline shift. The ventricles are normal in size and configuration. Basilar cisterns are patent. There are no intra- or extra-axial fluid collections. There is no intracranial hemorrhage. White matter hypoattenuation is in keeping with chronic small vessel ischemic changes. The orbits are normal. Paranasal sinuses are normal. Mastoid air cells are clear. No soft tissue abnormality is seen. No osseus lesions or fractures are seen. The alignment of the cervical spine is normal. No fracture is seen. Vertebral body heights are normal. The craniocervical junction is normal. There is anterior fusion of C2-C6. No soft tissue abnormality is seen in the neck. Limited views of the superior thorax are normal. IMPRESSION: 1. No acute intracranial abnormality. 2. No cervical spine fracture. Dictated on workstation # [id number] Dict: 03/11/22 1834 Trans: 03/11/22 1840 [facility] [id number] Interpreted by: EMILIA SOW MD Electronically signed by: Departure Impression Primary Impression: Syncope Qualified Codes: T67.1XXA - Heat syncope, initial encounter Additional Impressions: Esophageal stricture Dehydration Disposition: AGAINST MEDICAL ADVICE Condition: Against Medical Advice Departure-Patient Inst. Decision time for Depature: 20:23 Referrals: [facility] (PCP/Family) Primary Care Physician JAIME ROSA DO Patient Instructions: Orthostatic Hypotension (DC), Esophageal Dilation Add. Discharge Instructions: Go home and drink lots of fluids. Be careful getting up after seated or laying down for long periods as you may be more prone to passing out or near passing out. Call Dr. Rosa, general surgery at your leisure and request follow-up for your potential esophageal dilatation. Return to the ER for chest pain, continued passing out episodes or other worrisome symptoms. All discharge instructions reviewed with patient and/or family. Voiced und erstanding. Copy Copies To 1: JAIME ROSA DO ROXANE COHEN Mar 11, 2022 18:37
--- NOTE | 2022-03-11 18:40 | Diagnostic Imaging Report ---
EXAMINATION: CT head and CT cervical spine without contrast. TECHNIQUE: Multiple contiguous axial images were obtained through the brain and cervical spine without the use of intravenous contrast. Sagittal and coronal reformations through the cervical spine were then performed. All CT scans use one or more of the following dose optimizing techniques: automated exposure control, MA and/or KvP adjustment based on patient size and exam type or iterative reconstruction. HISTORY: Head and neck injury. COMPARISON: 01/24/2021 FINDINGS: The aguilar-white matter differentiation is normal. No mass effect or midline shift. The ventricles are normal in size and configuration. Basilar cisterns are patent. There are no intra- or extra-axial fluid collections. There is no intracranial hemorrhage. White matter hypoattenuation is in keeping with chronic small vessel ischemic changes. The orbits are normal. Paranasal sinuses are normal. Mastoid air cells are clear. No soft tissue abnormality is seen. No osseus lesions or fractures are seen. The alignment of the cervical spine is normal. No fracture is seen. Vertebral body heights are normal. The craniocervical junction is normal. There is anterior fusion of C2-C6. No soft tissue abnormality is seen in the neck. Limited views of the superior thorax are normal. IMPRESSION: 1. No acute intracranial abnormality. 2. No cervical spine fracture. Dictated by: Dictated on workstation # [id number]
[2022-03-11 18:55] LABS: CREATINE KINASE 57 U/L (30-200)
--- NOTE | 2022-03-11 19:21 | Diagnostic Imaging Report ---
EXAMINATION: Lumbosacral spine 2 or 3 views HISTORY: Low back pain COMPARISON: 11/14/2016 FINDINGS: There has been posterior spinal fusion and anterior spinal fusion of the lumbar spine. Vertebral body heights are normal. No acute fracture is seen. IMPRESSION: 1. Lumbar spine fusion, no acute fracture. Dictated by: Dictated on workstation # [id number]
--- NOTE | 2022-03-11 19:25 | Diagnostic Imaging Report ---
INDICATION: Back pain and fall. CORRELATION made with lumbar radiographs from the same day. FINDINGS: There are previous operative changes of a thoracolumbar spinal fusion. Pedicle screws in the thoracic spine begin at the T10 level. There is an interbody device at L1-L2. AP and lateral alignment of the thoracic spine appear appropriate. The T12 vertebral body demonstrates compression with no further height loss compared to a prior CT of the abdomen and pelvis from January 042021. The remainder of the vertebral body heights appear maintained. There are no findings of a screw fracture. IMPRESSION: Thoracolumbar fusion construct with chronic depression of the superior endplate of T12. The remainder of the vertebral body heights are maintained. Alignment appears appropriate. No hardware complication is evident. Dictated by: Dictated on workstation # [id number]
[2022-03-11 20:30] VITALS: BP 133/83
[2022-03-11 20:43] LABS: BILIRUBIN,URINE NEGATIVE (NEGATIVE); CLARITY,URINE CLEAR; COLOR,URINE YELLOW; GLUCOSE, URINE (UA) NEGATIVE (NEGATIVE); KETONES,URINE NEGATIVE (NEGATIVE); LEUKOCYTE ESTERASE ,URINE NEGATIVE (NEGATIVE); NITRITE,URINE NEGATIVE (NEGATIVE); PH,URINE 5.5 (5-9); PROTEIN,URINE NEGATIVE (NEGATIVE)
[2022-03-11 21:04] LABS: AMPHETAMINE SCREEN, URINE NEGATIVE (NEGATIVE); BARBITURATE SCREEN URINE NEGATIVE (NEGATIVE); BENZODIAZEPINES SCREEN URINE POSITIVE (NEGATIVE); CANNABINOID SCREEN, URINE NEGATIVE (NEGATIVE); COCAINE SCREEN URINE NEGATIVE (NEGATIVE); METHADONE STAT NEGATIVE (NEGATIVE); OPIATE SCREEN URINE NEGATIVE (NEGATIVE); OXYCODONE STAT NEGATIVE (NEGATIVE); PROPOXYPHENE STAT NEGATIVE (NEGATIVE); TRICYCLIC ANTIDEPRESSANTS SCRE NEGATIVE (NEGATIVE)
[2022-03-11 21:09] LABS: BACTERIA,URINE FEW /HPF; RBC,URINE RARE /HPF; SQUAMOUS EPITHELIAL CELL,UR RARE /HPF; WBC,URINE RARE /HPF
== END 2022-03-11 20:33 | disposition left against medical advice (07) ==
LOC: EDUNIT# 17:54 → ER 17:57
DX: T67.1XXA Heat syncope, initial encounter (principal); E86.0 Dehydration; K22.2 Esophageal obstruction; I10 Essential (primary) hypertension; T46.4X6A Underdosing of angiotensin-converting-enzyme inhibitors, initial encounter; Z91.14 Patient's other noncompliance with medication regimen; Z87.19 Personal history of other diseases of the digestive system; Z90.49 Acquired absence of other specified parts of digestive tract; Z86.16 Personal history of COVID-19; Z79.899 Other long term (current) drug therapy
CPT/HCPCS: 70450; 72070; 72100; 72125; 80053; 80306; 81000; 82550; 85025; 87088; G0480; 36415; 80320; 93005

== ENCOUNTER 2022-05-22 09:25 | Emergency (ER) | payer MEDICARE ==
[~2022-05-22] VITALS: Ht 175 cm; Wt 55.0 kg
[2022-05-22 09:26] VITALS: BP 168/105
--- NOTE | 2022-05-22 09:40 | ED General ---
General Chief Complaint: General Problems/Pain Stated Complaint: WEAKNESS Nursing Triage Note: PT TO [facility] BY [facility] WITH CC OF WEAKNESS FOR A COUPLE WEEKS, PAIN IN NECK, BACK, DISORIENTED, EYES WATERING, DIZZY, COULDN'T HARDLY STAND OR WALK, DIABETIC (GLUCOSE 101), STATES CARDIAC ISSUES. WAS SITTING OUTSIDE WITH FRIENDS SMOKING ON EMS ARRIVAL Source of Information: Patient, EMS History of Present Illness Date Seen by Provider: May 22, 2022 Time Seen by Provider: 09:28 Initial Comments Patient is a 67-year-old male who appears older than stated age presents by ambulance to the emergency department for increasing generalized weakness, his eyes are "watering" he has felt dizzy and nauseous. EMS reports that he was having a "smoke" prior to their arrival. He was able to ambulate to the ambulance. No chest pain, he denies shortness of breath. He is extremely hard of hearing. No headache. No recent trauma or falls. Suffers from longstanding chronic back pain after multiple back surgeries. Pleasant in no acute distress. Vital signs are stable, oxygen saturations at 94 to 96% on room air. No increased work of breathing. He does have bilateral expiratory wheezes. Denies fevers or chills. No known sick contacts. Review of systems in HPI are difficult secondary the patient's hearing impaired status and overall debility. Timing/Duration: Getting Worse Associated Systoms: Malaise, Nausea/Vomiting, Weakness Allergies and Home Medications Allergies Coded Allergies: ibuprofen (Verified Adverse Reaction, Unknown, Hypertension, pt has rec ASA in the past, 11/05/21) HYPERTENSION tramadol (Verified Adverse Reaction, Unknown, VOMIT, 10/03/18) Patient Home Medication List Home Medication List Reviewed: Yes Aspirin (Aspirin EC) 81 Mg Tablet.dr, 81 MG PO DAILY Prescribed by: KAYLIN BURDEN on 11/10/21 151 Atorvastatin Calcium (Lipitor) 40 Mg Tablet, 40 MG PO HS Prescribed by: KAYLIN BURDEN on 11/10/21 151 Lisinopril (Lisinopril) 20 Mg Tablet, 40 MG PO DAILY Prescribed by: KAYLIN BURDEN on 11/10/21 151 Ondansetron (Ondansetron Odt) 4 Mg Tab.rapdis, 4 MG PO Q4H Prescribed by: TIMI MATTSON on 4/23/22 2235 Ondansetron (Ondansetron Odt) 4 Mg Tab.rapdis, 4 MG SL Q8H PRN for NAUSEA/ VOMITING Prescribed by: LUCIA COLEMAN on 05/22/22 1151 Pantoprazole Sodium (Protonix) 40 Mg Tablet.dr, 40 MG PO DAILY Prescribed by: TIMI MATTSON on 12/07/21 2235 Review of Systems Review of Systems Constitutional: see HPI EENTM: no symptoms reported Respiratory: no symptoms reported Cardiovascular: no symptoms reported Gastrointestinal: nausea, vomiting Genitourinary: no symptoms reported Musculoskeletal: back pain (chronic) Skin: no symptoms reported Psychiatric/Neurological: No Symptoms Reported All Other Systems Reviewed Negative Unless Noted: Yes Past Cwxtemn-Coiing-Bgroxd Hx Immunizations Up To Date Tetanus Booster (TDap): Less than 5yrs PED Vaccines UTD: Yes First/Initial COVID19 Vaccinat: 09/2021 Second COVID19 Vaccination Lj: 10/2021 Third COVID19 Vaccination Date: 09/2021 Seasonal Allergies Seasonal Allergies: No Past Medical History Surgery/Hospitalization HX: BACK X 3, ROTATOR CUFF X 3, APPENDIX, GALLBLADDER Surgeries: Yes Appendectomy, Ear Surgery, Gallbladder, Orthopedic Respiratory: Yes (COVID PNEUMONIA 08/2021) Chronic Bronchitis Currently Using CPAP: No Currently Using BIPAP: No Cardiac: Yes High Cholesterol, Hypertension Neurological: Yes (TIA 01/2021; RESTLESS LEG SYNDROME) TIA Reproductive Disorders: No Sexually Transmitted Disease: No HIV/AIDS: No Genitourinary: No Gastrointestinal: Yes (ESOPHAGEAL STRICTURES/DILATIONS) Gastroesophageal Reflux Musculoskeletal: Yes (CHRONIC LEFT SHOULDER PAIN;CHRONIC NECK/BACK PAIN ) Degenerate Disk Disease, Arthritis, Chronic Back Pain Endocrine: No HEENT: Yes (POOR DENTITION; BMT'S;CHRONIC DYSPHAGIA AND HOARSENESS ) Dysphagia, Chronic Ear Infection Hearing Impairment: Hard of Hearing Cancer: Yes Skin Did You Recieve Any Treatments: Yes What Type of Treatment Did You: Surgical Intervention Psychosocial: Yes (POLYSUBSTANCE ABUSE AND OVERDOSES) Anxiety, Suicide Attempts, Depression Integumentary: No Blood Disorders: No Adverse Reaction/Blood Tranf: No (N/A) Family Medical History Cancer 03 FATHER (PROSTATE) 03 MOTHER (BREAST CA ) 09 BROTHER (THROAT/PANCREATIC) 09 SISTER (LIVER) DEAFNESS 03 FATHER 09 BROTHER Family history: Breast disease 03 MOTHER (BREAST CA) History of - respiratory disease Prostate cancer 03 FATHER Stroke 03 MOTHER Visual impairment No Pertinent Family Hx LONG HISTORY OF EXTREME NON-COMPLIANCE IN ALL ASPECTS OF CARE SOCIAL HISTORY: -SMOKES 2-3 PPD -ETOH--ABUSE/DAILY USE--ALSO DRINKS LARGE AMOUNTS OF NYQUIL DAILY; WITH HISTORY OF ALCOHOL WITHDRAWL SYMPTOMS -DRUGS-EXTENSIVE POLYSUBSTANCE ABUSE AND OVERDOSES--ESPECIALLY XANAX/BENZODIAZEPINES AND NARCOTICS/OPIATES; METHAMPHETAMINES -HAS HAD A MULTITUDE OF ACCIDENTS DUE TO SUBSTANCE ABUSE, HISTORY OF GETTING MULTIPLE RX'S FROM MULTIPROVIDERS USING MULTIPLE PHARMACIES; -HAS BEEN EVICTED FROM MULTIPLE REHAB /SUBSTANCE ABUSE TREATMENT FACILITIES, INCLUDING [facility], FOR EXTREME NON-COMPLIANCE. 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 2.0oz. 59.283138gk; 17.00 BMI Method:Stated General Appearance: No Apparent Distress, Chronically ill, Thin Eyes: Bilateral Eye Normal Inspection, Bilateral Eye PERRL, Bilateral Eye EOMI HEENT: PERRL/EOMI, Pharynx Normal, Other (dried vomit noted to chin) Neck: Normal Inspection Respiratory: No Accessory Muscle Use, No Respiratory Distress, Wheezing (bilateral scant expiratory wheezing noted) Cardiovascular: Regular Rate, Rhythm, Normal Peripheral Pulses Gastrointestinal: Normal Bowel Sounds, Non Tender, Soft Back: Normal Inspection, No Vertebral Tenderness; No Vertebral Tenderness Extremity: Normal Inspection, Normal Range of Motion Neurologic/Psychiatric: Alert, Oriented x3, No Motor/Sensory Deficits, Normal Mood/Affect, 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 II-XII Norm as Tested Skin: Normal Color, Warm/Dry Focused Exam Lactate Level 05/22/22 09:52: Lactic Acid Level 1.22 Lactic Acid Level Laboratory Tests Test 05/22/22 09:52 Lactic Acid Level 1.22 MMOL/L (0.50-2.00) Progress/Results/Core Measures Suspected Sepsis SIRS Temperature: Pulse: 75 Respiratory Rate: 18 Laboratory Tests 05/22/22 09:45: White Blood Count 4.9 Blood Pressure 168 /105 Mean: 126 05/22/22 09:52: Lactic Acid Level 1.22 Laboratory Tests 05/22/22 09:45: Creatinine 0.82, INR Comment 1.0, Platelet Count 172, Total Bilirubin 0.6 Results/Orders Lab Results Laboratory Tests Test 05/22/22 09:45 05/22/22 09:47 05/22/22 09:52 05/22/22 10:25 Range/Units White Blood Count 4.9 4.3-11.0 10^3/uL Red Blood Count 4.16 L 4.30-5.52 10^6/uL Hemoglobin 14.2 13.3-17.7 g/dL Hematocrit 43 40-54 % Mean Corpuscular Volume 103 H 80-99 fL Mean Corpuscular Hemoglobin 34 25-34 pg Mean Corpuscular Hemoglobin Concent 33 32-36 g/dL Red Cell Distribution Width 13.1 10.0-14.5 % Platelet Count 172 130-400 10^3/uL Mean Platelet Volume 9.0 9.0-12.2 fL Immature Granulocyte % (Auto) 0 % Neutrophils (%) (Auto) 59 42-75 % Lymphocytes (%) (Auto) 27 12-44 % Monocytes (%) (Auto) 12 0-12 % Eosinophils (%) (Auto) 1 0-10 % Basophils (%) (Auto) 1 0-10 % Neutrophils # (Auto) 2.9 1.8-7.8 10^3/uL Lymphocytes # (Auto) 1.3 1.0-4.0 10^3/uL Monocytes # (Auto) 0.6 0.0-1.0 10^3/uL Eosinophils # (Auto) 0.1 0.0-0.3 10^3/uL Basophils # (Auto) 0.0 0.0-0.1 10^3/uL Immature Granulocyte # (Auto) 0.0 0.0-0.1 10^3/uL Prothrombin Time 13.7 12.2-14.7 SEC INR Comment 1.0 0.8-1.4 Activated Partial Thromboplast Time 30 24-35 SEC Sodium Level 140 135-145 MMOL/L Potassium Level 3.7 3.6-5.0 MMOL/L Chloride Level 106 98-107 MMOL/L Carbon Dioxide Level 28 21-32 MMOL/L Anion Gap 6 5-14 MMOL/L Blood Urea Nitrogen 10 7-18 MG/DL Creatinine 0.82 0.60-1.30 MG/DL Estimat Glomerular Filtration Rate 96 BUN/Creatinine Ratio 12 Glucose Level 92 70-105 MG/DL Calcium Level 9.2 8.5-10.1 MG/DL Corrected Calcium 9.4 8.5-10.1 MG/DL Total Bilirubin 0.6 0.1-1.0 MG/DL Aspartate Amino Transf (AST/SGOT) 19 5-34 U/L Alanine Aminotransferase (ALT/SGPT) 12 0-55 U/L Alkaline Phosphatase 76 40-136 U/L C-Reactive Protein High Sensitivity 0.09 0.00-0.50 MG/DL Total Protein 6.6 6.4-8.2 GM/DL Albumin 3.7 3.2-4.5 GM/DL Procalcitonin 0.02 <0.10 NG/ML Serum Alcohol < 10 <10 MG/DL SARS-CoV-2 RNA (RT-PCR) Not Detected Not Detecte Lactic Acid Level 1.22 0.50-2.00 MMOL/L Urine Color YELLOW Urine Clarity CLEAR Urine pH 6.0 5-9 Urine Specific [place] 1.010 L 1.016-1.022 Urine Protein NEGATIVE NEGATIVE Urine Glucose (UA) NEGATIVE NEGATIVE Urine Ketones NEGATIVE NEGATIVE Urine Nitrite NEGATIVE NEGATIVE Urine Bilirubin NEGATIVE NEGATIVE Urine Urobilinogen 0.2 < = 1.0 MG/DL Urine Leukocyte Esterase NEGATIVE NEGATIVE Urine RBC (Auto) NEGATIVE NEGATIVE Urine RBC NONE /HPF Urine WBC NONE /HPF Urine Squamous Epithelial Cells RARE /HPF Urine Crystals NONE /LPF Urine Bacteria NEGATIVE /HPF Urine Casts NONE /LPF Urine Mucus NEGATIVE /LPF Urine Culture Indicated NO My Orders Orders - LUCIA COLEMAN MD Cbc With Automated Diff (05/22/22 09:38) Comprehensive Metabolic Panel (05/22/22 09:38) Blood Culture (05/22/22 09:38) Sputum Culture (05/22/22 09:38) Urinalysis (05/22/22 09:38) Urine Culture (05/22/22 09:38) Protime With Inr (05/22/22 09:38) Partial Thromboplastin Time (05/22/22 09:38) Chest 1 View, Ap/Pa Only (05/22/22 09:38) Ed Iv/Invasive Line Start (05/22/22 09:38) Ed Iv/Invasive Line Start (05/22/22 09:38) Vital Signs Adult Sepsis Patie Q15M (05/22/22 09:38) O2 (05/22/22 09:38) Remove Rings In Anticipation O (05/22/22 09:38) Lactic Acid Analyzer (05/22/22 09:38) Hs C Reactive Protein (05/22/22 09:38) Ondansetron Injection (Zofran Injectio (05/22/22 09:45) Ekg Tracing (05/22/22 09:38) Procalcitonin (Pct) (05/22/22 09:38) Covid 19 Inhouse Test (05/22/22 09:58) Isolation Central Supply Req (05/22/22 09:58) Alcohol (05/22/22 10:38) Ns Iv 1000 Ml (Sodium Chloride 0.9%) (05/22/22 10:45) Medications Given in ED Current Medications Medications Dose Ordered Sig/Isabell Route Start Time Stop Time Status Last Admin Dose Admin Ondansetron HCl 4 mg ONCE ONCE IVP 05/22/22 09:45 05/22/22 09:46 DC 05/22/22 09:48 4 MG Vital Signs/I&O 05/22/22 09:26 Temp 36.1 Pulse 75 Resp 18 B/P (MAP) 168/105 (126) Pulse Ox 97 O2 Delivery Room Air Capillary Refill : Less Than 3 Seconds Blood Pressure Mean: 126 Progress Note : Time: 11:48 Progress Note Patient is becoming a little bit more agitated, trying to crawl out of the end of the bed. He states that he does not really feel much better but he can feel like he feels now at home. I have reviewed his labs with him, he has no abnormal lab findings whatsoever. He does have a little increased pulmonary va scular congestion on chest x-ray however his oxygen saturations have been between 94 to 96% with no increased work of breathing. He has no significant pulmonary edema nothing to suggest acute exacerbation of congestive heart failure. His EKG is unremarkable, sinus rhythm at 71 beats a minute without any findings concerning for NSTEMI/STEMI. No findings concerning for infection/s epsis. He has not been nauseated or vomited since he received his Zofran. Return precautions discussed. I encouraged him to follow-up with [facility] next week. He has completed 1 L of fluids. His vital signs are stable. All questions are sought and answered ECG Initial ECG Impression Date: May 22, 2022 Initial ECG Impression Time: 09:46 Initial ECG Rate: 71 Initial ECG Rhythm: Normal Sinus Initial ECG Impression: Normal Comment rtifact at the baseline anteriorly; no ST segment elevation or depression or ectopy seen. Normal intervals Diagnostic Imaging Diagonstic Imaging: Xray Plain Films/CT/US/NM/MRI: chest Comments [facility], [place] NAME: LUZ ELENA CALDWELL [facility] REC#: [id number] PT STATUS: REG ER : 1955 PHYSICIAN: LUCIA COLEMAN MD ADMIT DATE: 05/22/22/ER Draft Date of Exam:05/22/22 CHEST 1 VIEW, AP/PA ONLY Indication: Weakness Frontal chest obtained at 1008 a.m. compared to 12/07/2021 Heart is mildly enlarged. There is central vascular congestion with interstitial edema, with increased vascularity compared to the prior study. There is no pneumothorax or pleural fluid or consolidation. IMPRESSION: Cardiomegaly with increasing central vascular congestion compared to the prior study with some interstitial edema. No consolidation or pleural fluid. Dictated on workstation # [id number] Dict: 05/22/22 1008 Trans: 05/22/22 1012 [facility] [id number] Interpreted by: ANDRES WATSON MD Electronically signed by: Departure Impression Primary Impression: Generalized weakness Additional Impression: Vomiting Qualified Codes: R11.2 - Nausea with vomiting, unspecified Disposition: 01 HOME, SELF-CARE Condition: Improved Departure-Patient Inst. Decision time for Depature: 11:50 Referrals: [facility] (PCP/Family) Primary Care Physician Patient Instructions: Generalized Weakness (DC) Add. Discharge Instructions: You should limit your activity for the next 1 to 2 days. Drink plenty of fluids to stay well-hydrated. Try and have several small meals throughout the day. Continue your daily medications as prescribed by your doctor at [facility]. Please call [facility] today for a follow-up appointment early next week. Come back to the emergency room for any worsening symptoms, persistent vomiting, fever or difficulty breathing. I have sent a prescription for nausea medication to [facility]. You can take 1 tablet every 8 hours as needed for nausea Scripts Ondansetron (Ondansetron Odt) 4 Mg Tab.rapdis 4 MG SL Q8H PRN for NAUSEA/VOMITING, #10 TAB Prov: LUCIA COLEMAN MD 05/22/22 Copy Copies To 1: ROSE KWONG KATHRYN M MD May 22, 2022 09:40
[2022-05-22] MEDS ORDERED: ONDANSETRON 4 MG/2 ML (SDV) Z0FRAN IVP ONE (09:45)
[2022-05-22 09:50] LABS: BASOPHILS % (AUTO) 1 % (0-10); EOSINOPHILS # (AUTO) 0.1 10^3/uL (0.0-0.3); EOSINOPHILS % (AUTO) 1 % (0-10); HEMATOCRIT 43 % (40-54); HEMOGLOBIN 14.2 g/dL (13.3-17.7); LYMPHOCYTES # (AUTO) 1.3 10^3/uL (1.0-4.0); LYMPHOCYTES % (AUTO) 27 % (12-44); MEAN CORPUSCULAR HEMOGLOBIN 34 pg (25-34); MEAN CORPUSCULAR HGB CONC 33 g/dL (32-36); MEAN CORPUSCULAR VOLUME 103 fL (80-99); MONOCYTES # (AUTO) 0.6 10^3/uL (0.0-1.0); MONOCYTES % (AUTO) 12 % (0-12); NEUTROPHILS # (AUTO) 2.9 10^3/uL (1.8-7.8); NEUTROPHILS % (AUTO) 59 % (42-75); PLATELET COUNT 172 10^3/uL (130-400); WHITE BLOOD COUNT 4.9 10^3/uL (4.3-11.0)
[2022-05-22 09:58] LABS: ALBUMIN 3.7 GM/DL (3.2-4.5); POTASSIUM 3.7 MMOL/L (3.6-5.0)
[2022-05-22 09:59] LABS: CALCIUM 9.2 MG/DL (8.5-10.1)
[2022-05-22 10:00] LABS: TOTAL PROTEIN 6.6 GM/DL (6.4-8.2)
[2022-05-22 10:01] LABS: PROTHROMBIN TIME PATIENT 13.7 SEC (12.2-14.7)
[2022-05-22 10:02] LABS: BILIRUBIN,TOTAL 0.6 MG/DL (0.1-1.0)
[2022-05-22 10:04] LABS: CREATININE SERUM 0.82 MG/DL (0.60-1.30)
--- NOTE | 2022-05-22 10:13 | Diagnostic Imaging Report ---
Indication: Weakness Frontal chest obtained at 1008 a.m. compared to 12/07/2021 Heart is mildly enlarged. There is central vascular congestion with interstitial edema, with increased vascularity compared to the prior study. There is no pneumothorax or pleural fluid or consolidation. IMPRESSION: Cardiomegaly with increasing central vascular congestion compared to the prior study with some interstitial edema. No consolidation or pleural fluid. Dictated by: Dictated on workstation # [id number]
[2022-05-22] MEDS ORDERED: NS IV 1000 ML 1,000 ML IV SCH (10:45)
[2022-05-22 10:52] LABS: BILIRUBIN,URINE NEGATIVE (NEGATIVE); CLARITY,URINE CLEAR; COLOR,URINE YELLOW; GLUCOSE, URINE (UA) NEGATIVE (NEGATIVE); KETONES,URINE NEGATIVE (NEGATIVE); LEUKOCYTE ESTERASE ,URINE NEGATIVE (NEGATIVE); NITRITE,URINE NEGATIVE (NEGATIVE); PROTEIN,URINE NEGATIVE (NEGATIVE)
[2022-05-22 11:10] LABS: BACTERIA,URINE NEGATIVE /HPF; SQUAMOUS EPITHELIAL CELL,UR RARE /HPF
[2022-05-22] MEDS ORDERED: ONDA4TAB11 SL (11:51)
== END 2022-05-22 11:55 | disposition home or self-care (01) ==
LOC: EDUNIT# 09:25 → ER 09:26
DX: R53.1 Weakness (principal); R11.2 Nausea with vomiting, unspecified; F17.210 Nicotine dependence, cigarettes, uncomplicated; Z20.822 Contact with and (suspected) exposure to COVID-19
CPT/HCPCS: 71045; 80053; 81000; 83605; 84145; 85025; 85610; 85730; 86141; 87040; 87088; 87636; 93005; 96361; 96374; 99284; G0480; 36415; 80320

== ENCOUNTER 2022-09-30 22:24 | Emergency (ER) | payer MEDICARE ==
[~2022-09-30] VITALS: Ht 172 cm; Wt 66.0 kg
[~2022-09-30 22:24] MED LIST changes: +CLOP-31 PO; -CLOP75TA69 PO; +ONDA4TAB11 SL
[2022-09-30 22:47] LABS: BASOPHILS % (AUTO) 1 % (0-10); EOSINOPHILS # (AUTO) 0.1 10^3/uL (0.0-0.3); EOSINOPHILS % (AUTO) 1 % (0-10); HEMATOCRIT 43 % (40-54); HEMOGLOBIN 14.6 g/dL (13.3-17.7); LYMPHOCYTES # (AUTO) 1.3 10^3/uL (1.0-4.0); LYMPHOCYTES % (AUTO) 24 % (12-44); MEAN CORPUSCULAR HEMOGLOBIN 34 pg (25-34); MEAN CORPUSCULAR HGB CONC 34 g/dL (32-36); MEAN CORPUSCULAR VOLUME 101 fL (80-99); MEAN PLATELET VOLUME 8.8 fL (9.0-12.2); MONOCYTES # (AUTO) 0.5 10^3/uL (0.0-1.0); MONOCYTES % (AUTO) 10 % (0-12); NEUTROPHILS # (AUTO) 3.2 10^3/uL (1.8-7.8); NEUTROPHILS % (AUTO) 63 % (42-75); PLATELET COUNT 170 10^3/uL (130-400); WHITE BLOOD COUNT 5.1 10^3/uL (4.3-11.0)
[2022-09-30 22:57] LABS: ALBUMIN 3.9 GM/DL (3.2-4.5); POTASSIUM 3.3 MMOL/L (3.6-5.0)
[2022-09-30 22:58] LABS: CALCIUM 8.8 MG/DL (8.5-10.1)
[2022-09-30 23:00] LABS: TOTAL PROTEIN 6.9 GM/DL (6.4-8.2)
[2022-09-30 23:01] LABS: BILIRUBIN,TOTAL 0.4 MG/DL (0.1-1.0)
[2022-09-30 23:03] LABS: CREATININE SERUM 0.91 MG/DL (0.60-1.30)
--- NOTE | 2022-09-30 23:08 | ED General ---
General Chief Complaint: Substance Abuse Stated Complaint: ALCOHOL INTOXICATION Nursing Triage Note: pt brought in by ems after being found passed out in sister's backyard after reportedly drinking half a pint of vodka today. pt aggressive and hostile at triage when awake, security called for standby. Source of Information: Patient, EMS, Old Records Exam Limitations: Intoxication History of Present Illness Date Seen by Provider: Sep 30, 2022 Time Seen by Provider: 22:25 Initial Comments This 67-year-old man is brought to the emergency room via EMS due to altered mental status presumably from intoxication. He had been drinking a significant amount of alcohol today and was found "passed out" in his sister's backyard. EMS found him on the floor of a shed. On their assessment he was initially hypotensive with blood pressure of 85/46. Oxygen saturation was in the 80s. Patient was cool. He was responsive but not oriented. During triage with collection of vitals and other manipulation for assessment he became agitated yelling out and becoming aggressive. Security was called to standby. There is no evidence of trauma and patient denies any pain. He is oriented to self and age but not location, date, or month. Vital signs here are normal and unremarkable. Oxygen saturation is mid 90s on room air. IV fluids are infusing. Patient moves all 4 extremities. He denies any pain with palpation of the neck, abdomen, hips, etc. during exam. Allergies and Home Medications Allergies Coded Allergies: ibuprofen (Verified Adverse Reaction, Unknown, Hypertension, pt has rec ASA in the past, 11/05/21) HYPERTENSION tramadol (Verified Adverse Reaction, Unknown, VOMIT, 10/03/18) Patient Home Medication List Home Medication List Reviewed: Yes Aspirin (Aspirin EC) 81 Mg Tablet.dr, 81 MG PO DAILY Prescribed by: KAYLIN BURDEN on 11/10/21 151 Atorvastatin Calcium (Lipitor) 40 Mg Tablet, 40 MG PO HS Prescribed by: KAYLIN BURDEN on 11/10/21 151 Lisinopril (Lisinopril) 20 Mg Tablet, 40 MG PO DAILY Prescribed by: KAYLIN BURDEN on 11/10/21 151 Ondansetron (Ondansetron Odt) 4 Mg Tab.rapdis, 4 MG PO Q4H Prescribed by: TIMI MATTSON on 12/07/212234 Ondansetron (Ondansetron Odt) 4 Mg Tab.rapdis, 4 MG SL Q8H PRN for FREDRICK SEA/VOMITING Prescribed by: LUCIA COLEMAN on 05/22/22 1151 Pantoprazole Sodium (Protonix) 40 Mg Tablet.dr, 40 MG PO DAILY Prescribed by: TIMI MATTSON on 12/07/21 2235 Review of Systems Review of Systems Constitutional: see HPI EENTM: no symptoms reported Respiratory: see HPI Cardiovascular: see HPI Gastrointestinal: no symptoms reported Genitourinary: no symptoms reported Musculoskeletal: no symptoms reported Skin: no symptoms reported Psychiatric/Neurological: See HPI Hematologic/Lymphatic: No Symptoms Reported Immunological/Allergic: no symptoms reported Past Vdldcts-Naejno-Kmqqzi Hx Patient Social History Tobacco Use?: Yes Smoking Status: Current Everyday Smoker Substance use?: Unable to obtain (History of polysubstance abuse) Alcohol Use?: Yes Pt feels they are or have been: Unable to obtain Immunizations Up To Date Tetanus Booster (TDap): Less than 5yrs PED Vaccines UTD: Yes First/Initial COVID19 Vaccinat: 09/2021 Second COVID19 Vaccination Jl: 10/2021 Third COVID19 Vaccination Date: 09/2021 Seasonal Allergies Seasonal Allergies: No Past Medical History Surgery/Hospitalization HX: BACK X 3, ROTATOR CUFF X 3, APPENDIX, GALLBLADDER Surgeries: Yes Appendectomy, Ear Surgery, Gallbladder, Orthopedic Respiratory: Yes (COVID PNEUMONIA 08/2021) Chronic Bronchitis Currently Using CPAP: No Currently Using BIPAP: No Cardiac: Yes High Cholesterol, Hypertension Neurological: Yes (TIA 01/2021; RESTLESS LEG SYNDROME) TIA Reproductive Disorders: No Sexually Transmitted Disease: No HIV/AIDS: No Genitourinary: No Gastrointestinal: Yes (ESOPHAGEAL STRICTURES/DILATIONS) Gastroesophageal Reflux Musculoskeletal: Yes (CHRONIC LEFT SHOULDER PAIN;CHRONIC NECK/BACK PAIN ) Degenerate Disk Disease, Arthritis, Chronic Back Pain Endocrine: No HEENT: Yes (POOR DENTITION; BMT'S;CHRONIC DYSPHAGIA AND HOARSENESS ) Dysphagia, Chronic Ear Infection Hearing Impairment: Hard of Hearing Cancer: Yes Skin Did You Recieve Any Treatments: Yes What Type of Treatment Did You: Surgical Intervention Psychosocial: Yes (POLYSUBSTANCE ABUSE AND OVERDOSES) Anxiety, Suicide Attempts, Depression Integumentary: No Blood Disorders: No Adverse Reaction/Blood Tranf: No (N/A) Family Medical History Cancer 03 FATHER (PROSTATE) 03 MOTHER (BREAST CA ) 09 BROTHER (THROAT/PANCREATIC) 09 SISTER (LIVER) DEAFNESS 03 FATHER 09 BROTHER Family history: Breast disease 03 MOTHER (BREAST CA) History of - respiratory disease Prostate cancer 03 FATHER Stroke 03 MOTHER Visual impairment No Pertinent Family Hx LONG HISTORY OF EXTREME NON-COMPLIANCE IN ALL ASPECTS OF CARE SOCIAL HISTORY: -SMOKES 2-3 PPD -ETOH--ABUSE/DAILY USE--ALSO DRINKS LARGE AMOUNTS OF NYQUIL DAILY; WITH HISTORY OF ALCOHOL WITHDRAWL SYMPTOMS -DRUGS-EXTENSIVE POLYSUBSTANCE ABUSE AND OVERDOSES--ESPECIALLY XANAX/BENZODIAZEPINES AND NARCOTICS/OPIATES; METHAMPHETAMINES -HAS HAD A MULTITUDE OF ACCIDENTS DUE TO SUBSTANCE ABUSE, HISTORY OF GETTING MULTIPLE RX'S FROM MULTIPROVIDERS USING MULTIPLE PHARMACIES; -HAS BEEN EVICTED FROM MULTIPLE REHAB /SUBSTANCE ABUSE TREATMENT FACILITIES, INCLUDING [facility], FOR EXTREME NON-COMPLIANCE. 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 2.0oz. [id number]; 22.00 BMI Method:Stated General Appearance: No Apparent Distress, WD/WN, Thin, Other (Lying quietly in bed. Becomes agitated and verbally aggressive when started during assessment) HEENT: Normal ENT Inspection Neck: Normal Inspection, Non Tender Respiratory: Lungs Clear, Normal Breath Sounds, No Accessory Muscle Use Cardiovascular: Regular Rate, Rhythm, No Edema, No Murmur Gastrointestinal: Non Tender, Soft; No Distended Extremity: Normal Inspection, Non Tender, No Pedal Edema Neurologic/Psychiatric: Disoriented, Other (Arouses with stimulation and becomes aggressive. Moves all 4 extremities. Disoriented to date, year, and location) Skin: Normal Color, Warm/Dry Progress/Results/Core Measures Suspected Sepsis SIRS Temperature: Pulse: 73 Respiratory Rate: 15 Laboratory Tests 09/30/22 22:40: White Blood Count 5.1 Blood Pressure 122 /70 Mean: 87 Laboratory Tests 09/30/22 22:40: Creatinine 0.91, Platelet Count 170, Total Bilirubin 0.4 Results/Orders Lab Results Laboratory Tests Test 09/30/22 04:00 09/30/22 22:40 Range/Units Urine Color YELLOW Urine Clarity CLEAR Urine pH 6.0 5-9 Urine Specific [place] <=1.005 1.016-1.022 Urine Protein NEGATIVE NEGATIVE Urine Glucose (UA) NEGATIVE NEGATIVE Urine Ketones NEGATIVE NEGATIVE Urine Nitrite NEGATIVE NEGATIVE Urine Bilirubin NEGATIVE NEGATIVE Urine Urobilinogen 0.2 < = 1.0 MG/DL Urine Leukocyte Esterase NEGATIVE NEGATIVE Urine RBC (Auto) NEGATIVE NEGATIVE Urine RBC NONE /HPF Urine WBC NONE /HPF Urine Crystals NONE /LPF Urine Bacteria NEGATIVE /HPF Urine Casts NONE /LPF Urine Mucus NEGATIVE /LPF Urine Culture Indicated NO Urine Opiates Screen NEGATIVE NEGATIVE Urine Oxycodone Screen POSITIVE H NEGATIVE Urine Methadone Screen NEGATIVE NEGATIVE Urine Propoxyphene Screen NEGATIVE NEGATIVE Urine Barbiturates Screen NEGATIVE NEGATIVE Ur Tricyclic Antidepressants Screen NEGATIVE NEGATIVE Urine Phencyclidine Screen NEGATIVE NEGATIVE Urine Amphetamines Screen NEGATIVE NEGATIVE Urine Methamphetamines Screen NEGATIVE NEGATIVE Urine Benzodiazepines Screen NEGATIVE NEGATIVE Urine Cocaine Screen NEGATIVE NEGATIVE Urine Cannabinoids Screen NEGATIVE NEGATIVE White Blood Count 5.1 4.3-11.0 10^3/uL Red Blood Count 4.27 L 4.30-5.52 10^6/uL Hemoglobin 14.6 13.3-17.7 g/dL Hematocrit 43 40-54 % Mean Corpuscular Volume 101 H 80-99 fL Mean Corpuscular Hemoglobin 34 25-34 pg Mean Corpuscular Hemoglobin Concent 34 32-36 g/dL Red Cell Distribution Width 13.2 10.0-14.5 % Platelet Count 170 130-400 10^3/uL Mean Platelet Volume 8.8 L 9.0-12.2 fL Immature Granulocyte % (Auto) 0 % Neutrophils (%) (Auto) 63 42-75 % Lymphocytes (%) (Auto) 24 12-44 % Monocytes (%) (Auto) 10 0-12 % Eosinophils (%) (Auto) 1 0-10 % Basophils (%) (Auto) 1 0-10 % Neutrophils # (Auto) 3.2 1.8-7.8 10^3/uL Lymphocytes # (Auto) 1.3 1.0-4.0 10^3/uL Monocytes # (Auto) 0.5 0.0-1.0 10^3/uL Eosinophils # (Auto) 0.1 0.0-0.3 10^3/uL Basophils # (Auto) 0.0 0.0-0.1 10^3/uL Immature Granulocyte # (Auto) 0.0 0.0-0.1 10^3/uL Sodium Level 137 135-145 MMOL/L Potassium Level 3.3 L 3.6-5.0 MMOL/L Chloride Level 102 98-107 MMOL/L Carbon Dioxide Level 18 L 21-32 MMOL/L Anion Gap 17 H 5-14 MMOL/L Blood Urea Nitrogen 15 7-18 MG/DL Creatinine 0.91 0.60-1.30 MG/DL Estimat Glomerular Filtration Rate 92 BUN/Creatinine Ratio 16 Glucose Level 114 H 70-105 MG/DL Calcium Level 8.8 8.5-10.1 MG/DL Corrected Calcium 8.9 8.5-10.1 MG/DL Total Bilirubin 0.4 0.1-1.0 MG/DL Aspartate Amino Transf (AST/SGOT) 41 H 5-34 U/L Alanine Aminotransferase (ALT/SGPT) 47 0-55 U/L Alkaline Phosphatase 131 40-136 U/L C-Reactive Protein High Sensitivity 0.44 0.00-0.50 MG/DL Total Protein 6.9 6.4-8.2 GM/DL Albumin 3.9 3.2-4.5 GM/DL Serum Alcohol 243 H <10 MG/DL My Orders Orders - KRISTINA MONCADA MD Alcohol (09/30/22 22:32) Cbc With Automated Diff (09/30/22 22:32) Comprehensive Metabolic Panel (09/30/22 22:32) Hs C Reactive Protein (09/30/22 22:32) Drug Screen Stat (Urine) (09/30/22 22:32) Ua Culture If Indicated (09/30/22 22:32) Ed Iv/Invasive Line Start (09/30/22 22:32) Ct Head/Cervical Spine Wo (09/30/22 22:32) Vital Signs/I&O 09/30/22 22:27 Temp 36.4 Pulse 73 Resp 15 B/P (MAP) 122/70 (87) Pulse Ox 95 O2 Delivery Room Air 10/01/22 00:00 Intake Total 150 ml Balance 150 ml Capillary Refill : Less Than 3 Seconds Blood Pressure Mean: 87 Progress Note #1: Time: 23:11 Progress Note Patient's blood alcohol level is 243. He is being assessed with CBC, CMP, CRP, urinalysis, and drug screen. CT of the head and cervical spine has been obtained and report is pending. No acute intracranial or bony injuries are identified on my interpretation. Progress Note #2: Time: 05:[address] head and C-spine were unremarkable for acute injury. Patient has sobered up and is ready for discharge. He is waiting for his ride. Diagnostic Imaging Diagonstic Imaging: CT Plain Films/CT/US/NM/MRI: c-spine, head Comments CT head and C-spine reviewed by me. No acute injuries were identified by my interpretation. [facility] report also reviewed and likewise noted no acute injuries. Departure Impression Primary Impression: Acute alcoholic intoxication Qualified Codes: F10.929 - Alcohol use, unspecified with intoxication, unspecified Disposition: 01 HOME, SELF-CARE Condition: Improved Departure-Patient Inst. Decision time for Depature: 04:50 Referrals: [facility] (PCP/Family) Primary Care Physician Patient Instructions: ALCOHOL AND SUBSTANCE ABUSE, Alcohol Use Disorder ED Add. Discharge Instructions: Drink plenty of clear liquids to stay well-hydrated. Follow-up with your primary care provider if you have any problems or concerns related to your ER visit tonight. Return to the emergency room if you have worsening symptoms. Avoid drinking alcohol in excess or to intoxication. All discharge instructions reviewed with patient and/or family. Voiced understanding. KRISTINA MONCADA MD Sep 30, 2022 23:08
[2022-10-01 04:08] LABS: BILIRUBIN,URINE NEGATIVE (NEGATIVE); CLARITY,URINE CLEAR; COLOR,URINE YELLOW; GLUCOSE, URINE (UA) NEGATIVE (NEGATIVE); KETONES,URINE NEGATIVE (NEGATIVE); LEUKOCYTE ESTERASE ,URINE NEGATIVE (NEGATIVE); NITRITE,URINE NEGATIVE (NEGATIVE); PROTEIN,URINE NEGATIVE (NEGATIVE)
[2022-10-01 04:19] LABS: AMPHETAMINE SCREEN, URINE NEGATIVE (NEGATIVE); BARBITURATE SCREEN URINE NEGATIVE (NEGATIVE); BENZODIAZEPINES SCREEN URINE NEGATIVE (NEGATIVE); CANNABINOID SCREEN, URINE NEGATIVE (NEGATIVE); COCAINE SCREEN URINE NEGATIVE (NEGATIVE); METHADONE STAT NEGATIVE (NEGATIVE); OPIATE SCREEN URINE NEGATIVE (NEGATIVE); OXYCODONE STAT POSITIVE (NEGATIVE); PROPOXYPHENE STAT NEGATIVE (NEGATIVE); TRICYCLIC ANTIDEPRESSANTS SCRE NEGATIVE (NEGATIVE)
[2022-10-01 04:23] LABS: BACTERIA,URINE NEGATIVE /HPF
--- NOTE | 2022-10-01 06:10 | Diagnostic Imaging Report ---
PROCEDURE: CT head and CT cervical spine without contrast. TECHNIQUE: Multiple contiguous axial images were obtained through the brain and cervical spine without the use of intravenous contrast. Sagittal and coronal reformations through the cervical spine were then performed. Auto Exposure Controls were utilized during the CT exam to meet ALARA standards for radiation dose reduction. INDICATION: Trauma, pain, found down COMPARISON: 03/11/2022. FINDINGS: Mild atrophy. No intracranial hemorrhage. No intracranial mass, mass effect, midline shift, herniation, hydrocephalus, or extra-axial fluid collections. Periventricular and subcortical white matter hypodensities are again identified, mild background chronic small vessel white matter ischemic disease. No definite CT evidence of an acute ischemic infarction. The orbits are unremarkable. The paranasal sinuses are clear. The calvarium and extracalvarial soft tissues are unremarkable. Anterior plate and screw fixation of C3-C7 is noted without evidence of hardware complication. Alignment of the cervical spine is well maintained. Alignment of the atlantooccipital joint is well maintained. The vertebral body heights appear unchanged from prior examination. No acute fracture or dislocation. No destructive osseous process. High-grade disc space height loss is noted throughout essentially all levels. Scattered facet joint degenerative changes. Mild central canal stenosis at the C3/C4 level. Bilateral neural foraminal stenosis present. No apical pneumothorax. Emphysematous changes within the upper lungs. Background vascular calcifications. IMPRESSION: No acute intracranial abnormality with mild atrophy and mild background chronic small vessel white matter ischemic disease. No acute osseous abnormality within the cervical spine with extensive postsurgical changes as above without hardware complication. Emphysematous changes within the upper lungs. Agree with preliminary interpretation. Dictated by: Dictated on workstation # [id number]
[2022-10-01 06:55] VITALS: BP 124/63
== END 2022-10-01 06:45 | disposition home or self-care (01) ==
LOC: EDUNIT# 22:24 → ER 22:25
DX: F10.229 Alcohol dependence with intoxication, unspecified (principal); F17.210 Nicotine dependence, cigarettes, uncomplicated; Y90.8 Blood alcohol level of 240 mg/100 ml or more
CPT/HCPCS: 70450; 72125; 80053; 80306; 81000; 85025; 86141; 99283; G0480; 36415; 80320

== ENCOUNTER 2022-10-27 16:38 | Emergency (ER) | payer MEDICARE ==
[~2022-10-27] VITALS: Ht 167.7 cm; Wt 61.7 kg
[2022-10-27] MEDS ORDERED: NS IV 1000 ML 1,000 ML IV STA (16:53)
--- NOTE | 2022-10-27 16:59 | ED Cough/URI ---
General Chief Complaint: Cough/Cold/Flu Symptoms Stated Complaint: COUGH/WEAKNESS/SOA Nursing Triage Note: PT AMB TO ED BY POV WITH C/O SOB. PT REPORTS HE TESTED POSITIVE FOR FLU 3 DAYS AGO AT [facility] AND HAS SINCE HAD INCREASED DIFFICULTY BREATHING. Source: patient Exam Limitations: no limitations History of Present Illness Date Seen by Provider: Oct 27, 2022 Time Seen by Provider: 16:56 Initial Comments Patient is a 67-year-old male with a history of COPD, coronary artery disease, TIA who presents ED with flulike symptoms. Patient states he has had flulike symptoms over the past 5 days. He states he tested +5 days ago at [facility] for the flu A. Patient was placed nasal steroid and cetirizine. He states his symptoms are getting worse. Reports decreased appetite feels weak and fatigue over the past 3 days. States he slept out in a cold car yesterday made his symptoms worse. Reports some chest discomfort tightness with cough and shortness of breath. Denies history of coronary artery disease, CHF, asthma or COPD. Everyday smoker. Reports some associated diarrhea without any vomiting. Denies fever, headache, sore throat, ear pain, vomiting, abdominal pain. Patient denies of any alcohol use Allergies and Home Medications Allergies Coded Allergies: ibuprofen (Verified Adverse Reaction, Unknown, Hypertension, pt has rec ASA in the past, 11/05/21) HYPERTENSION tramadol (Verified Adverse Reaction, Unknown, VOMIT, 10/03/18) Patient Home Medication List Home Medication List Reviewed: Yes Albuterol Sulfate (Ventolin Hfa) 1 Puff Puff, 2 PUFF INH Q4H Prescribed by: YESI ROGERS on 10/27/221820 Aspirin (Aspirin EC) 81 Mg Tablet.dr, 81 MG PO DAILY Prescribed by: KAYLIN BURDEN on 11/10/211513 Atorvastatin Calcium (Lipitor) 40 Mg Tablet, 40 MG PO HS Prescribed by: KAYLIN BURDEN on 11/10/211513 Azithromycin (Azithromycin) 250 Mg Tablet, 250 MG PO UD Prescribed by: YESI ROGERS on 10/27/221820 Lisinopril (Lisinopril) 20 Mg Tablet, 40 MG PO DAILY Prescribed by: KAYLIN BURDEN on 11/10/211513 Ondansetron (Ondansetron Odt) 4 Mg Tab.rapdis, 4 MG PO Q4H Prescribed by: TIMI MATTSON on 12/07/212234 Ondansetron (Ondansetron Odt) 4 Mg Tab.rapdis, 4 MG SL Q8H PRN for NAUSEA/VOMITING Prescribed by: LUCIA COLEMAN on 05/22/22 1151 Pantoprazole Sodium (Protonix) 40 Mg Tablet.dr, 40 MG PO DAILY Prescribed by: TIMI MATTSON on 12/07/212234 Prednisone (Prednisone) 20 Mg Tab, 40 MG PO DAILY Prescribed by: YESI ROGERS on 10/27/22 182 Review of Systems Review of Systems Constitutional: chills; No diaphoresis; malaise, weakness EENTM: No ear pain, No blurred vision, No double vision, No hoarseness, No mouth pain, No mouth swelling Respiratory: cough, short of breath Cardiovascular: chest pain Gastrointestinal: No abdominal pain; diarrhea; No nausea, No vomiting Genitourinary: No decreased output, No dysuria, No frequency Musculoskeletal: No back pain, No joint pain, No joint swelling, No muscle pain, No muscle stiffness, No muscle twitching, No muscle weakness All Other Systems Reviewed Negative Unless Noted: Yes Past Hkdyvpr-Zuaaic-Efcnrs Hx Immunizations Up To Date Tetanus Booster (TDap): Less than 5yrs PED Vaccines UTD: Yes First/Initial COVID19 Vaccinat: 09/2021 Second COVID19 Vaccination Jl: 10/2021 Third COVID19 Vaccination Date: 09/2021 Seasonal Allergies Seasonal Allergies: No Past Medical History Surgery/Hospitalization HX: BACK X 3, ROTATOR CUFF X 3, APPENDIX, GALLBLADDER Surgeries: Yes Appendectomy, Ear Surgery, Gallbladder, Orthopedic Respiratory: Yes (COVID PNEUMONIA 08/2021) Chronic Bronchitis Currently Using CPAP: No Currently Using BIPAP: No Cardiac: Yes High Cholesterol, Hypertension Neurological: Yes (TIA 01/2021; RESTLESS LEG SYNDROME) TIA Reproductive Disorders: No Sexually Transmitted Disease: No HIV/AIDS: No Genitourinary: No Gastrointestinal: Yes (ESOPHAGEAL STRICTURES/DILATIONS) Gastroesophageal Reflux Musculoskeletal: Yes (CHRONIC LEFT SHOULDER PAIN;CHRONIC NECK/BACK PAIN ) Degenerate Disk Disease, Arthritis, Chronic Back Pain Endocrine: No HEENT: Yes (POOR DENTITION; BMT'S;CHRONIC DYSPHAGIA AND HOARSENESS ) Dysphagia, Chronic Ear Infection Hearing Impairment: Hard of Hearing Cancer: Yes Skin Did You Recieve Any Treatments: Yes What Type of Treatment Did You: Surgical Intervention Psychosocial: Yes (POLYSUBSTANCE ABUSE AND OVERDOSES) Anxiety, Suicide Attempts, Depression Integumentary: No Blood Disorders: No Adverse Reaction/Blood Tranf: No (N/A) Family Medical History Cancer 03 FATHER (PROSTATE) 03 MOTHER (BREAST CA ) 09 BROTHER (THROAT/PANCREATIC) 09 SISTER (LIVER) DEAFNESS 03 FATHER 09 BROTHER Family history: Breast disease 03 MOTHER (BREAST CA) History of - respiratory disease Prostate cancer 03 FATHER Stroke 03 MOTHER Visual impairment No Pertinent Family Hx LONG HISTORY OF EXTREME NON-COMPLIANCE IN ALL ASPECTS OF CARE SOCIAL HISTORY: -SMOKES 2-3 PPD -ETOH--ABUSE/DAILY USE--ALSO DRINKS LARGE AMOUNTS OF NYQUIL DAILY; WITH HISTORY OF ALCOHOL WITHDRAWL SYMPTOMS -DRUGS-EXTENSIVE POLYSUBSTANCE ABUSE AND OVERDOSES--ESPECIALLY XANAX/BENZODIAZEPINES AND NARCOTICS/OPIATES; METHAMPHETAMINES -HAS HAD A MULTITUDE OF ACCIDENTS DUE TO SUBSTANCE ABUSE, HISTORY OF GETTING MULTIPLE RX'S FROM MULTIPROVIDERS USING MULTIPLE PHARMACIES; -HAS BEEN EVICTED FROM MULTIPLE REHAB /SUBSTANCE ABUSE TREATMENT FACILITIES, INCLUDING [facility], FOR EXTREME NON-COMPLIANCE. 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 % Physical Exam Vital Signs - First Documented 10/27/22 16:44 Temp 36.4 Pulse 77 Resp 20 B/P (MAP) 141/86 (104) Pulse Ox 98 O2 Delivery Room Air Capillary Refill : Less Than 3 Seconds Height: 5'6.00" Weight: 130lbs. 2.0oz. [id number]; 21.00 BMI Method:Stated General Appearance: WD/WN, no apparent distress Eyes: Bilateral Eye Normal Inspection, Bilateral Eye PERRL, Bilateral Eye EOMI HEENT: PERRL/EOMI, normal ENT inspection, TMs normal, pharynx normal Neck: non-tender, full range of motion, supple, normal inspection Respiratory: chest non-tender, lungs clear, normal breath sounds, no respiratory distress, no accessory muscle use Cardiovascular: regular rate, rhythm, no edema, no gallop, no JVD Gastrointestinal: normal bowel sounds, non tender, soft, no organomegaly Extremities: normal range of motion, non-tender, normal inspection, no pedal edema 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, no motor/sensory deficits, alert, normal mood/affect, oriented x 3 Skin: normal color, warm/dry Progress/Results/Core Measures Suspected Sepsis SIRS Temperature: Pulse: 77 Respiratory Rate: 20 Laboratory Tests 10/27/22 17:28: White Blood Count 7.9 Blood Pressure 141 /86 Mean: 104 Laboratory Tests 10/27/22 17:28: Creatinine 0.78, Platelet Count 234, Total Bilirubin 0.3 Results/Orders Lab Results Laboratory Tests Test 10/27/22 17:28 Range/Units White Blood Count 7.9 4.3-11.0 10^3/uL Red Blood Count 4.16 L 4.30-5.52 10^6/uL Hemoglobin 14.1 13.3-17.7 g/dL Hematocrit 42 40-54 % Mean Corpuscular Volume 101 H 80-99 fL Mean Corpuscular Hemoglobin 34 25-34 pg Mean Corpuscular Hemoglobin Concent 34 32-36 g/dL Red Cell Distribution Width 13.1 10.0-14.5 % Platelet Count 234 130-400 10^3/uL Mean Platelet Volume 8.6 L 9.0-12.2 fL Immature Granulocyte % (Auto) 0 % Neutrophils (%) (Auto) 61 42-75 % Lymphocytes (%) (Auto) 29 12-44 % Monocytes (%) (Auto) 9 0-12 % Eosinophils (%) (Auto) 1 0-10 % Basophils (%) (Auto) 0 0-10 % Neutrophils # (Auto) 4.8 1.8-7.8 10^3/uL Lymphocytes # (Auto) 2.2 1.0-4.0 10^3/uL Monocytes # (Auto) 0.7 0.0-1.0 10^3/uL Eosinophils # (Auto) 0.1 0.0-0.3 10^3/uL Basophils # (Auto) 0.0 0.0-0.1 10^3/uL Immature Granulocyte # (Auto) 0.0 0.0-0.1 10^3/uL Sodium Level 140 135-145 MMOL/L Potassium Level 3.3 L 3.6-5.0 MMOL/L Chloride Level 105 98-107 MMOL/L Carbon Dioxide Level 24 21-32 MMOL/L Anion Gap 11 5-14 MMOL/L Blood Urea Nitrogen 9 7-18 MG/DL Creatinine 0.78 0.60-1.30 MG/DL Estimat Glomerular Filtration Rate 98 BUN/Creatinine Ratio 12 Glucose Level 121 H 70-105 MG/DL Calcium Level 8.8 8.5-10.1 MG/DL Corrected Calcium 9.0 8.5-10.1 MG/DL Magnesium Level 1.8 1.6-2.4 MG/DL Total Bilirubin 0.3 0.1-1.0 MG/DL Aspartate Amino Transf (AST/SGOT) 17 5-34 U/L Alanine Aminotransferase (ALT/SGPT) 14 0-55 U/L Alkaline Phosphatase 76 40-136 U/L Troponin I < 0.028 <0.028 NG/ML B-Type Natriuretic Peptide 148.1 H <100.0 PG/ML Total Protein 6.7 6.4-8.2 GM/DL Albumin 3.7 3.2-4.5 GM/DL My Orders Orders - STEFANI STUART PA Cbc With Automated Diff (10/27/22 16:53) Comprehensive Metabolic Panel (10/27/22 16:53) Bnp Young (10/27/22 16:53) Troponin I Marina (10/27/22 16:53) Ekg Tracing (10/27/22 16:53) Magnesium (10/27/22 16:53) Chest 1 View, Ap/Pa Only (10/27/22 16:53) Ns Iv 1000 Ml (Sodium Chloride 0.9%) (10/27/22 16:53) Vital Signs/I&O 10/27/22 10/27/22 10/27/22 16:44 16:44 18:32 Temp 36.4 Pulse 77 62 Resp 20 18 B/P (MAP) 141/86 (104) 138/72 Pulse Ox 98 97 O2 Delivery Room Air Room Air Room Air Capillary Refill : Less Than 3 Seconds Blood Pressure Mean: 104 ECG Comment Normal sinus rhythm, 69 bpm, QRS duration 81 MS, QTc 418 MS Departure Communication (PCP) Reviewed previous ER visits, H&P's, lab testing. patient states he was diagnosed with flu 5 days ago. Reports to the ED with flulike symptoms. Patient with chest pain, shortness of breath, body aches, decreased appetite. Due to current complaints and worsening of symptoms, CBC, CMP, cardiac work-up was initiated. Differential diagnosis of COPD, coronary artery disease, flu, dehydration. Patient EKG showed normal sinus rhythm without evidence of ST elevation or obvious depression. CBC, CMP was otherwise unremarkable. Besides potassium 3.3. Patient troponin was negative. BNP 148. No appreciation of leg swelling. No increasing shortness of breath with lying down. Chest x-ray did not show any evidence of pleural effusion, pneumonia. Patient was afebrile with stable vital signs. Does not appear in respiratory distress. Tolerating p.o. fluids. Refused IV fluids. Refused oral potassium. Patient had a echocardiogram on 01/25/2021 with ejection fraction is 65 to 70%. Prior cardiac catheterization in 2016 with mild obstructive disease. Patient was admitted in October with cardiac consult. They were not able to obtain a cardiac c atheterization due to change in mental status. Patient's symptoms appear to be more viral secondary to the flu. Continue with conservative treatment at home. Refused his dose of steroid and breathing treatment. Did have some subtle wheezing but does have a known history of COPD. Discharge with short burst steroids, azithromycin COPD exacerbation and albuterol inhaler. Follow-up your PCP in 2 to 3 days for reevaluation. Return precaution were discussed with patient Impression Primary Impression: COPD (chronic obstructive pulmonary disease) Disposition: 01 HOME, SELF-CARE Condition: Stable Departure-Patient Inst. Decision time for Depature: 18:20 Referrals: [facility] (PCP/Family) Primary Care Physician Patient Instructions: COPD Exacerbation, Adult ED, Flu Scripts Azithromycin (Azithromycin) 250 Mg Tablet 250 MG PO UD, #6 TAB TAKE 2 TABLETS ON DAY ONE THEN TAKE 1 TABLET DAILY FOR FOUR MORE DAYS Prov: STEFANI STUART 10/27/22 Albuterol Sulfate (VENTOLIN HFA) 1 Puff Puff 2 PUFF INH Q4H, #1 EA 1 PUFF = 90 MCG Prov: STEFANI STUART 10/27/22 Prednisone (Prednisone) 20 Mg Tab 40 MG PO DAILY for 5 Days, #10 TAB Prov: STEFANI STUART 10/27/22 STEFANI STUART Oct 27, 2022 16:59
--- NOTE | 2022-10-27 17:31 | Diagnostic Imaging Report ---
INDICATION: Lower respiratory infection Portable chest 5:17 PM Heart size and pulmonary vascularity are normal. There are emphysematous changes in the lungs. There are no infiltrates, effusions or pneumothoraces. IMPRESSION: COPD. No acute abnormality seen Dictated by: Dictated on workstation # [id number]
[2022-10-27 17:35] LABS: BASOPHILS % (AUTO) 0 % (0-10); EOSINOPHILS # (AUTO) 0.1 10^3/uL (0.0-0.3); EOSINOPHILS % (AUTO) 1 % (0-10); HEMATOCRIT 42 % (40-54); HEMOGLOBIN 14.1 g/dL (13.3-17.7); LYMPHOCYTES # (AUTO) 2.2 10^3/uL (1.0-4.0); LYMPHOCYTES % (AUTO) 29 % (12-44); MEAN CORPUSCULAR HEMOGLOBIN 34 pg (25-34); MEAN CORPUSCULAR HGB CONC 34 g/dL (32-36); MEAN CORPUSCULAR VOLUME 101 fL (80-99); MEAN PLATELET VOLUME 8.6 fL (9.0-12.2); MONOCYTES # (AUTO) 0.7 10^3/uL (0.0-1.0); MONOCYTES % (AUTO) 9 % (0-12); NEUTROPHILS # (AUTO) 4.8 10^3/uL (1.8-7.8); NEUTROPHILS % (AUTO) 61 % (42-75); PLATELET COUNT 234 10^3/uL (130-400); WHITE BLOOD COUNT 7.9 10^3/uL (4.3-11.0)
[2022-10-27 17:43] LABS: ALBUMIN 3.7 GM/DL (3.2-4.5); CHLORIDE 105 MMOL/L (98-107); POTASSIUM 3.3 MMOL/L (3.6-5.0); SODIUM 140 MMOL/L (135-145)
[2022-10-27 17:45] LABS: CALCIUM 8.8 MG/DL (8.5-10.1)
[2022-10-27 17:46] LABS: GLUCOSE 121 MG/DL (70-105); TOTAL PROTEIN 6.7 GM/DL (6.4-8.2)
[2022-10-27 17:47] LABS: CARBON DIOXIDE 24 MMOL/L (21-32)
[2022-10-27 17:48] LABS: BILIRUBIN,TOTAL 0.3 MG/DL (0.1-1.0)
[2022-10-27 17:49] LABS: ALKALINE PHOSPHATASE 76 U/L (40-136); CREATININE SERUM 0.78 MG/DL (0.60-1.30); GFR ESTIMATED 98
[2022-10-27 17:51] LABS: BUN/CREATININE RATIO 12
[2022-10-27 17:52] LABS: ALANINE AMINOTRANSFERASE 14 U/L (0-55); MAGNESIUM 1.8 MG/DL (1.6-2.4)
[2022-10-27] MEDS ORDERED: PRD20T PO (18:21)
[2022-10-27] MEDS ORDERED: AZIT250T12 PO (18:21)
[2022-10-27] MEDS ORDERED: RT-ALBUINH INH (18:21)
[2022-10-27 18:32] VITALS: BP 138/72
== END 2022-10-27 18:32 | disposition home or self-care (01) ==
LOC: EDUNIT# 16:38 → ER 16:40
DX: J44.9 Chronic obstructive pulmonary disease, unspecified (principal); E87.1 Hypo-osmolality and hyponatremia; I10 Essential (primary) hypertension; F17.210 Nicotine dependence, cigarettes, uncomplicated
CPT/HCPCS: 36415; 71045; 80053; 83735; 83880; 84484; 85025; 93005

== ENCOUNTER 2022-11-06 14:53 | Emergency (ER) | payer MEDICARE ==
[~2022-11-06] VITALS: Ht 167 cm; Wt 68.0 kg
[~2022-11-06 14:53] MED LIST changes: +AZIT250T12 PO; +RT-ALBUINH INH
[2022-11-06] MEDS ORDERED: NS IV 1000 ML 1,000 ML IV STA (15:20)
[2022-11-06 15:28] LABS: BASOPHILS % (AUTO) 0 % (0-10); EOSINOPHILS % (AUTO) 0 % (0-10); HEMATOCRIT 43 % (40-54); HEMOGLOBIN 14.5 g/dL (13.3-17.7); LYMPHOCYTES # (AUTO) 0.7 10^3/uL (1.0-4.0); LYMPHOCYTES % (AUTO) 10 % (12-44); MEAN CORPUSCULAR HEMOGLOBIN 34 pg (25-34); MEAN CORPUSCULAR HGB CONC 34 g/dL (32-36); MEAN CORPUSCULAR VOLUME 101 fL (80-99); MEAN PLATELET VOLUME 9.2 fL (9.0-12.2); MONOCYTES # (AUTO) 0.1 10^3/uL (0.0-1.0); MONOCYTES % (AUTO) 2 % (0-12); NEUTROPHILS # (AUTO) 6.5 10^3/uL (1.8-7.8); NEUTROPHILS % (AUTO) 88 % (42-75); PLATELET COUNT 300 10^3/uL (130-400); WHITE BLOOD COUNT 7.4 10^3/uL (4.3-11.0)
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
[2022-11-06 15:34] LABS: ALBUMIN 3.8 GM/DL (3.2-4.5); CHLORIDE 106 MMOL/L (98-107); SODIUM 141 MMOL/L (135-145)
[2022-11-06 15:36] LABS: CALCIUM 9.3 MG/DL (8.5-10.1)
[2022-11-06 15:37] LABS: GLUCOSE 137 MG/DL (70-105); TOTAL PROTEIN 7.3 GM/DL (6.4-8.2)
[2022-11-06 15:38] LABS: BILIRUBIN,TOTAL 0.5 MG/DL (0.1-1.0); CARBON DIOXIDE 27 MMOL/L (21-32)
[2022-11-06 15:40] LABS: ALKALINE PHOSPHATASE 79 U/L (40-136); CREATININE SERUM 0.83 MG/DL (0.60-1.30); GFR ESTIMATED 96
[2022-11-06 15:41] LABS: BUN/CREATININE RATIO 16
[2022-11-06 15:43] LABS: ALANINE AMINOTRANSFERASE 23 U/L (0-55)
[2022-11-06 15:47] LABS: BASOPHILS % (MANUAL) 1 %; LYMPHOCYTES % (MANUAL) 11 %; MONOCYTES % (MANUAL) 2 %; NEUTROPHILS % (MANUAL) 86 %; RBC MORPH NORMAL
[2022-11-06 15:51] LABS: POTASSIUM 4.5 MMOL/L (3.6-5.0)
[2022-11-06 15:54] LABS: BILIRUBIN,URINE NEGATIVE (NEGATIVE); CLARITY,URINE CLEAR; COLOR,URINE YELLOW; GLUCOSE, URINE (UA) NEGATIVE (NEGATIVE); KETONES,URINE NEGATIVE (NEGATIVE); LEUKOCYTE ESTERASE ,URINE NEGATIVE (NEGATIVE); NITRITE,URINE NEGATIVE (NEGATIVE); PROTEIN,URINE NEGATIVE (NEGATIVE)
[2022-11-06 16:09] LABS: AMPHETAMINE SCREEN, URINE NEGATIVE (NEGATIVE); BARBITURATE SCREEN URINE NEGATIVE (NEGATIVE); BENZODIAZEPINES SCREEN URINE POSITIVE (NEGATIVE); CANNABINOID SCREEN, URINE NEGATIVE (NEGATIVE); COCAINE SCREEN URINE NEGATIVE (NEGATIVE); METHADONE STAT NEGATIVE (NEGATIVE); OPIATE SCREEN URINE NEGATIVE (NEGATIVE); OXYCODONE STAT NEGATIVE (NEGATIVE); PROPOXYPHENE STAT NEGATIVE (NEGATIVE); TRICYCLIC ANTIDEPRESSANTS SCRE NEGATIVE (NEGATIVE)
[2022-11-06 16:14] LABS: BACTERIA,URINE NEGATIVE /HPF
--- NOTE | 2022-11-06 16:22 | Diagnostic Imaging Report ---
INDICATION: Cough. EXAMINATION: Chest, 11/06/2022. COMPARISON: 10/27/2022. FINDINGS: Heart is prominent. Pulmonary vasculature is stable from previous. Coarsened markings throughout the lungs are chronic in appearance and similar to the previous examination. There is hyperinflation of the lungs. No pneumothorax or effusions. Postoperative changes are again noted in the cervical spine and thoracolumbar spine. IMPRESSION: 1. Chronic findings including changes suggesting COPD. No acute cardiopulmonary process. Dictated by: Dictated on workstation # [id number]
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
[2022-11-06] MEDS ORDERED: fentaNYL INJ 100 MCG/2 ML AMP IVP STA (16:44)
[2022-11-06 18:27] VITALS: BP 124/72
== END 2022-11-06 18:25 | disposition home or self-care (01) ==
LOC: EDUNIT# 14:53 → ER 14:55
DX: S02.2XXA Fracture of nasal bones, initial encounter for closed fracture (principal); R55 Syncope and collapse; F17.210 Nicotine dependence, cigarettes, uncomplicated; Z86.16 Personal history of COVID-19; W18.30XA Fall on same level, unspecified, initial encounter
CPT/HCPCS: 70450; 70486; 71045; 72125; 80053; 80306; 81000; 83690; 83735; 83880; 84484; 85007; 85027; 93005; 99284; G0480; 36415; 80320

== ENCOUNTER 2023-01-30 14:01 | Emergency (ER) | payer MEDICARE, MEDICAID ==
[~2023-01-30] VITALS: Ht 167.7 cm; Wt 68.0 kg
[~2023-01-30 14:01] MED LIST changes: +POTA-330 PO; -POTA-51 PO
--- NOTE | 2023-01-30 14:37 | ED General ---
General Chief Complaint: General Problems/Pain Stated Complaint: [facility] Nursing Triage Note: PT TO ROOM BY WHEELCHAIR. PT STATES HE FELL WHILE WALKING OUTSIDE TODAY. STATES HE HAS HAD INCREASED WEAKNESS FOR APPROX 1 MONTH. STATES HE HAS NOT BEEN EATING AND HAS BEEN DRY HEAVING. PT IS A&OX4, SPEECH NORMAL Source of Information: Patient Exam Limitations: No Limitations History of Present Illness Date Seen by Provider: Jan 30, 2023 Time Seen by Provider: 14:23 Initial Comments Patient is a 67-year-old male who presents to the emergency room with his nephew by private vehicle chief complaint generalized weakness, back pain, nausea and vomiting and decreased appetite over the last 3 days. He lives alone. He states that he was a former resident of a local snf but could not afford it. He was on prescription medicines but he is not sure what they were for and is currently not taking any medications. He apparently was walking outside today from [place], [place] to [place] to his nephew's house and became so weak he fell. He thinks he may have passed out. He states 5 or 6 days ago he had some chest pain, it did not radiate. He does not have a history of known coronary artery disease. He states he smokes "1 cigarette every 6 hours" and he is "trying to quit". He denies any unilateral numbness weakness or tingling. He is nauseated currently. He states he has not had food in 3 days. He denies diarrhea, black or bloody stools. He states he has urinated only once today at around 10 AM (usually only goes twice a day). He is requesting pain medication due to back pain. He tells me he has had 3 back surgeries - chronic pain (no family doctor). He has not had hydrocodone for many months. Timing/Duration: 3-4 Days Associated Systoms: Loss of Appetite, Malaise, Nausea/Vomiting, Shortness of Air, Weakness Allergies and Home Medications Allergies Coded Allergies: ibuprofen (Verified Adverse Reaction, Unknown, Hypertension, pt has rec ASA in the past, 11/05/21) HYPERTENSION tramadol (Verified Adverse Reaction, Unknown, VOMIT, 10/03/18) Patient Home Medication List Home Medication List Reviewed: Yes Albuterol Sulfate (Ventolin Hfa) 1 Puff Puff, 2 PUFF INH Q4H Prescribed by: YESI ROGERS on 10/27/221820 Aspirin (Aspirin EC) 81 Mg Tablet.dr, 81 MG PO DAILY Prescribed by: KAYLIN BURDEN on 11/10/211513 Atorvastatin Calcium (Lipitor) 40 Mg Tablet, 40 MG PO HS Prescribed by: KAYLIN BURDEN on 11/10/211513 Azithromycin (Azithromycin) 250 Mg Tablet, 250 MG PO UD Prescribed by: YESI ROGERS on 10/27/221820 Lisinopril (Lisinopril) 20 Mg Tablet, 40 MG PO DAILY Prescribed by: KAYLIN BURDEN on 11/10/211513 Ondansetron (Ondansetron Odt) 4 Mg Tab.rapdis, 4 MG PO Q4H Prescribed by: TIMI MATTSON on 12/07/212234 Ondansetron (Ondansetron Odt) 4 Mg Tab.rapdis, 4 MG SL Q8H PRN for NAUSEA/VOMITING Prescribed by: LUCIA COLEMAN on 05/22/22 115 Pantoprazole Sodium (Protonix) 40 Mg Tablet.dr, 40 MG PO DAILY Prescribed by: TIMI MATTSON on 12/07/212234 Prednisone (Prednisone) 20 Mg Tab, 40 MG PO DAILY Prescribed by: YESI ROGERS on 10/27/221820 Review of Systems Review of Systems Constitutional: see HPI, malaise, weakness EENTM: no symptoms reported Respiratory: short of breath Cardiovascular: palpitations Gastrointestinal: loss of appetite, nausea, vomiting Genitourinary: decreased output Musculoskeletal: back pain Psychiatric/Neurological: No Symptoms Reported All Other Systems Reviewed Negative Unless Noted: Yes Past Qaiabug-Ebfqde-Ifluan Hx Patient Social History Tobacco Use?: Yes Tobacco type used: Cigarettes Smoking Status: Current Everyday Smoker Substance use?: No Alcohol Use?: No Immunizations Up To Date Tetanus Booster (TDap): Less than 5yrs PED Vaccines UTD: Yes Influenza Vaccine Up-to-Date: Yes; Up-to-Date First/Initial COVID19 Vaccinat: 09/2021 Second COVID19 Vaccination Jl: 10/2021 Third COVID19 Vaccination Date: 09/2021 Seasonal Allergies Seasonal Allergies: No Past Medical History Surgery/Hospitalization HX: BACK X 3, ROTATOR CUFF X 3, APPENDIX, GALLBLADDER Surgeries: Yes Appendectomy, Ear Surgery, Gallbladder, Orthopedic Respiratory: Yes (COVID PNEUMONIA 08/2021) Chronic Bronchitis Currently Using CPAP: No Currently Using BIPAP: No Cardiac: Yes High Cholesterol, Hypertension Neurological: Yes (TIA 01/2021; RESTLESS LEG SYNDROME) TIA Reproductive Disorders: No Sexually Transmitted Disease: No HIV/AIDS: No Genitourinary: No Gastrointestinal: Yes (ESOPHAGEAL STRICTURES/DILATIONS) Gastroesophageal Reflux Musculoskeletal: Yes (CHRONIC LEFT SHOULDER PAIN;CHRONIC NECK/BACK PAIN ) Degenerate Disk Disease, Arthritis, Chronic Back Pain Endocrine: No HEENT: Yes (POOR DENTITION; BMT'S;CHRONIC DYSPHAGIA AND HOARSENESS ) Dysphagia, Chronic Ear Infection Hearing Impairment: Hard of Hearing Cancer: Yes Skin Did You Recieve Any Treatments: Yes What Type of Treatment Did You: Surgical Intervention Psychosocial: Yes (POLYSUBSTANCE ABUSE AND OVERDOSES) Anxiety, Suicide Attempts, Depression Integumentary: No Blood Disorders: No Adverse Reaction/Blood Tranf: No (N/A) Family Medical History Cancer 03 FATHER (PROSTATE) 03 MOTHER (BREAST CA ) 09 BROTHER (THROAT/PANCREATIC) 09 SISTER (LIVER) DEAFNESS 03 FATHER 09 BROTHER Family history: Breast disease 03 MOTHER (BREAST CA) History of - respiratory disease Prostate cancer 03 FATHER Stroke 03 MOTHER Visual impairment No Pertinent Family Hx LONG HISTORY OF EXTREME NON-COMPLIANCE IN ALL ASPECTS OF CARE SOCIAL HISTORY: -SMOKES 2-3 PPD -ETOH--ABUSE/DAILY USE--ALSO DRINKS LARGE AMOUNTS OF NYQUIL DAILY; WITH HISTORY OF ALCOHOL WITHDRAWL SYMPTOMS -DRUGS-EXTENSIVE POLYSUBSTANCE ABUSE AND OVERDOSES--ESPECIALLY XANAX/BENZODIAZEPINES AND NARCOTICS/OPIATES; METHAMPHETAMINES -HAS HAD A MULTITUDE OF ACCIDENTS DUE TO SUBSTANCE ABUSE, HISTORY OF GETTING MULTIPLE RX'S FROM MULTIPROVIDERS USING MULTIPLE PHARMACIES; -HAS BEEN EVICTED FROM MULTIPLE REHAB /SUBSTANCE ABUSE TREATMENT FACILITIES, INCLUDING [facility], FOR EXTREME NON-COMPLIANCE. 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 % Physical Exam Vital Signs Vital Signs - First Documented 01/30/23 14:19 Temp 36.4 Pulse 101 Resp 19 B/P (MAP) 114/84 (94) Pulse Ox 96 Capillary Refill : Height, Weight, BMI Height: 5'6.00" Weight: 130lbs. 2.0oz. 59.367102vi; 24.00 BMI Method:Stated General Appearance: No Apparent Distress, WD/WN, Other (dirty and dishevelled) Eyes: Bilateral Eye Normal Inspection, Bilateral Eye PERRL, Bilateral Eye EOMI Neck: Normal Inspection Respiratory: Lungs Clear, Normal Breath Sounds, No Accessory Muscle Use, No Respiratory Distress Cardiovascular: Regular Rate, Rhythm, Normal Peripheral Pulses Gastrointestinal: Normal Bowel Sounds, No Organomegaly, Non Tender, Soft Back: No Vertebral Tenderness Extremity: Normal Inspection, Normal Range of Motion, Non Tender, No Calf Tende rness, No Pedal Edema Neurologic/Psychiatric: Alert, Oriented x3, No Motor/Sensory Deficits, Normal Mood/Affect, 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 Norm as Tested Skin: Normal Color, Warm/Dry Progress/Results/Core Measures Suspected Sepsis SIRS Temperature: Pulse: 101 Respiratory Rate: 19 Laboratory Tests 01/30/23 14:20: White Blood Count 9.7 Blood Pressure 114 /84 Mean: 94 Laboratory Tests 01/30/23 14:20: Creatinine 0.92, Platelet Count 317, Total Bilirubin 1.1H Results/Orders Lab Results Laboratory Tests Test 01/30/23 14:20 01/30/23 14:21 Range/Units White Blood Count 9.7 4.3-11.0 10^3/uL Red Blood Count 4.46 4.30-5.52 10^6/uL Hemoglobin 15.0 13.3-17.7 g/dL Hematocrit 44 40-54 % Mean Corpuscular Volume 100 H 80-99 fL Mean Corpuscular Hemoglobin 34 25-34 pg Mean Corpuscular Hemoglobin Concent 34 32-36 g/dL Red Cell Distribution Width 14.3 10.0-14.5 % Platelet Count 317 130-400 10^3/uL Mean Platelet Volume 8.7 L 9.0-12.2 fL Immature Granulocyte % (Auto) 1 % Neutrophils (%) (Auto) 72 42-75 % Lymphocytes (%) (Auto) 15 12-44 % Monocytes (%) (Auto) 12 0-12 % Eosinophils (%) (Auto) 0 0-10 % Basophils (%) (Auto) 0 0-10 % Neutrophils # (Auto) 6.9 1.8-7.8 X 10^3 Lymphocytes # (Auto) 1.5 1.0-4.0 X 10^3 Monocytes # (Auto) 1.2 H 0.0-1.0 X 10^3 Eosinophils # (Auto) 0.0 0.0-0.3 10^3/uL Basophils # (Auto) 0.0 0.0-0.1 10^3/uL Immature Granulocyte # (Auto) 0.1 0.0-0.1 10^3/uL Sodium Level 138 135-145 MMOL/L Potassium Level 3.0 L 3.6-5.0 MMOL/L Chloride Level 99 98-107 MMOL/L Carbon Dioxide Level 26 21-32 MMOL/L Anion Gap 13 5-14 MMOL/L Blood Urea Nitrogen 15 7-18 MG/DL Creatinine 0.92 0.60-1.30 MG/DL Estimat Glomerular Filtration Rate 91 BUN/Creatinine Ratio 16 Glucose Level 138 H 70-105 MG/DL Calcium Level 9.8 8.5-10.1 MG/DL Corrected Calcium 9.9 8.5-10.1 MG/DL Total Bilirubin 1.1 H 0.1-1.0 MG/DL Aspartate Amino Transf (AST/SGOT) 26 5-34 U/L Alanine Aminotransferase (ALT/SGPT) 24 0-55 U/L Alkaline Phosphatase 107 40-136 U/L Total Creatine Kinase 270 H 30-200 U/L Total Protein 7.0 6.4-8.2 GM/DL Albumin 3.9 3.2-4.5 GM/DL Glucometer 143 H 70-110 MG/DL My Orders Orders - LUCIA COLEMAN MD Ed Iv/Invasive Line Start (01/30/23 15:03) Cbc With Automated Diff (01/30/23 15:03) Comprehensive Metabolic Panel (01/30/23 15:03) Creatine Kinase (01/30/23 15:03) Ns Iv 1000 Ml (Sodium Chloride 0.9%) (01/30/23 15:03) Ondansetron Injection (Zofran Injectio (01/30/23 15:15) Hydrocodone/Apap 5/325 Tablet (Lortab 5 (01/30/23 15:30) Medications Given in ED Current Medications Medications Dose Ordered Sig/Isabell Route Start Time Stop Time Status Last Admin Dose Admin Acetaminophen/ Hydrocodone Bitart 1 ea ONCE ONCE PO 01/30/23 15:30 01/30/23 15:31 DC 01/30/23 15:52 1 EA Ondansetron HCl 4 mg ONCE ONCE IVP 01/30/23 15:15 01/30/23 15:16 DC 01/30/23 15:14 4 MG Vital Signs/I&O 01/30/23 14:19 Temp 36.4 Pulse 101 Resp 19 B/P (MAP) 114/84 (94) Pulse Ox 96 Capillary Refill : Blood Pressure Mean: 94 Progress Note : Time: 16:42 Progress Note Patient reassessed at this time states he is feeling much better. Departure Impression Primary Impression: Generalized weakness Additional Impressions: Mild dehydration Chronic back pain Qualified Codes: M54.50 - Low back pain, unspecified; G89.29 - Other chronic pain Hypokalemia Disposition: 01 HOME, SELF-CARE Condition: Improved Departure-Patient Inst. Decision time for Depature: 16:48 Referrals: [facility] (PCP/Family) Primary Care Physician Patient Instructions: High Potassium Diet, Dehydration, Adult ED Add. Discharge Instructions: Use the Ondansetron tablets (they dissolve in your mouth) every 8 hours for nausea/upset stomach. Take the hydrocodone every 6 hours as needed for pain. Alternate with extra strength tylenol (2 tablets) every 6 hours. You NEED to follow up with a primary care doctor; please call [facility] for a follow up appointment next week. You should take the medications prescribed to you at the end of December - the Lisinopril (for blood pressure), the Atorvastatin (for cholesterol) and the Pantoprazole (for upset stomach). Increase the potassium in your diet. Return to the Emergency Department for any new, emergent or concerning symptoms. Scripts Hydrocodone/Acetaminophen (Hydrocodone-Acetamin 5-325 mg) 5 Mg-325 Mg Tablet 1 TAB PO Q6H PRN for PAIN-MODERATE (5-7), #12 TAB Prov: LUCIA COLEMAN MD 01/30/23 Ondansetron (Ondansetron Odt) 4 Mg Tab.rapdis 4 MG SL Q8H PRN for NAUSEA/VOMITING, #12 TAB Prov: LUCIA COLEMAN MD 01/30/23 Copy Copies To 1: ROSE KWONG KATHRYN M MD Jan 30, 2023 14:37
[2023-01-30] MEDS ORDERED: NS IV 1000 ML 1,000 ML IV STA (15:03)
[2023-01-30 15:15] LABS: BASOPHILS % (AUTO) 0 % (0-10); EOSINOPHILS % (AUTO) 0 % (0-10); HEMATOCRIT 44 % (40-54); LYMPHOCYTES # (AUTO) 1.5 X 10^3 (1.0-4.0); LYMPHOCYTES % (AUTO) 15 % (12-44); MEAN CORPUSCULAR HEMOGLOBIN 34 pg (25-34); MEAN CORPUSCULAR HGB CONC 34 g/dL (32-36); MEAN CORPUSCULAR VOLUME 100 fL (80-99); MEAN PLATELET VOLUME 8.7 fL (9.0-12.2); MONOCYTES # (AUTO) 1.2 X 10^3 (0.0-1.0); MONOCYTES % (AUTO) 12 % (0-12); NEUTROPHILS # (AUTO) 6.9 X 10^3 (1.8-7.8); NEUTROPHILS % (AUTO) 72 % (42-75); PLATELET COUNT 317 10^3/uL (130-400); WHITE BLOOD COUNT 9.7 10^3/uL (4.3-11.0)
[2023-01-30] MEDS ORDERED: ONDANSETRON 4 MG/2 ML (SDV) Z0FRAN IVP ONE (15:15)
[2023-01-30 15:16] LABS: ALBUMIN 3.9 GM/DL (3.2-4.5)
[2023-01-30 15:17] LABS: CALCIUM 9.8 MG/DL (8.5-10.1)
[2023-01-30 15:20] LABS: BILIRUBIN,TOTAL 1.1 MG/DL (0.1-1.0)
[2023-01-30 15:22] LABS: CREATININE SERUM 0.92 MG/DL (0.60-1.30)
[2023-01-30] MEDS ORDERED: HYDROcodone/APAP 5 MG/325 MG (LORTAB) TAB PO ONE (15:30)
[2023-01-30] MEDS ORDERED: ACHD5005 PO (16:48)
[2023-01-30] MEDS ORDERED: ONDA4TAB11 SL (16:48)
[2023-01-30] MEDS ORDERED: KCL 20 MEQ TAB (K-DUR) PO ONE (17:00)
[2023-01-30 17:20] VITALS: BP 116/72
== END 2023-01-30 17:40 | disposition home or self-care (01) ==
LOC: EDUNIT# 14:01 → ER 14:02
DX: E87.6 Hypokalemia (principal); E86.0 Dehydration; G89.29 Other chronic pain; M54.9 Dorsalgia, unspecified; R11.2 Nausea with vomiting, unspecified; F17.210 Nicotine dependence, cigarettes, uncomplicated; Z98.890 Other specified postprocedural states; Z86.16 Personal history of COVID-19; Z88.6 Allergy status to analgesic agent; W18.30XA Fall on same level, unspecified, initial encounter; Y93.01 Activity, walking, marching and hiking
CPT/HCPCS: 36415; 80053; 82550; 82947; 85025

== ENCOUNTER 2023-02-22 20:18 | Emergency (ER) | payer MEDICARE, MEDICAID ==
[~2023-02-22] VITALS: Ht 167.7 cm; Wt 68.3 kg
[2023-02-22] MEDS ORDERED: TETANUS,DIPTH,PERTUSS P/F (BOOSTRIX) 0.5 ML VIAL IM ONE (20:30)
[2023-02-22] MEDS ORDERED: PANTOPRAZOLE 40 MG (PROTONIX) VIAL IV ONE (20:30)
[2023-02-22] MEDS ORDERED: ONDANSETRON 4 MG/2 ML (SDV) Z0FRAN IVP ONE (20:30)
[2023-02-22] MEDS ORDERED: LACTATED RINGERS 1,000 ML IV ONE ×2 (20:30→22:45)
[2023-02-22 20:44] LABS: BASOPHILS # (AUTO) 0.1 10^3/uL (0.0-0.1); BASOPHILS % (AUTO) 1 % (0-10); EOSINOPHILS # (AUTO) 0.2 10^3/uL (0.0-0.3); EOSINOPHILS % (AUTO) 2 % (0-10); HEMATOCRIT 44 % (40-54); HEMOGLOBIN 15.3 g/dL (13.3-17.7); LYMPHOCYTES # (AUTO) 1.7 10^3/uL (1.0-4.0); LYMPHOCYTES % (AUTO) 23 % (12-44); MEAN CORPUSCULAR HEMOGLOBIN 34 pg (25-34); MEAN CORPUSCULAR HGB CONC 35 g/dL (32-36); MEAN CORPUSCULAR VOLUME 98 fL (80-99); MEAN PLATELET VOLUME 8.7 fL (9.0-12.2); MONOCYTES % (AUTO) 13 % (0-12); NEUTROPHILS # (AUTO) 4.5 10^3/uL (1.8-7.8); NEUTROPHILS % (AUTO) 60 % (42-75); PLATELET COUNT 244 10^3/uL (130-400); WHITE BLOOD COUNT 7.5 10^3/uL (4.3-11.0)
[2023-02-22 20:59] LABS: PROTHROMBIN TIME PATIENT 13.7 SEC (12.2-14.7)
[2023-02-22 21:11] LABS: ALANINE AMINOTRANSFERASE 18 U/L (0-55); ALBUMIN 3.7 GM/DL (3.2-4.5); ALKALINE PHOSPHATASE 108 U/L (40-136); AMMONIA 38 UMOL/L (11-32); AMYLASE 30 U/L (25-125); BILIRUBIN,TOTAL 0.9 MG/DL (0.1-1.0); BUN/CREATININE RATIO 15; CARBON DIOXIDE 25 MMOL/L (21-32); CHLORIDE 97 MMOL/L (98-107); CREATINE KINASE 68 U/L (30-200); CREATININE SERUM 0.87 MG/DL (0.60-1.30); GFR ESTIMATED 94; GLUCOSE 103 MG/DL (70-105); LIPASE 16 U/L (8-78); MAGNESIUM 1.6 MG/DL (1.6-2.4); POTASSIUM 2.7 MMOL/L (3.6-5.0); SODIUM 137 MMOL/L (135-145); TOTAL PROTEIN 6.5 GM/DL (6.4-8.2)
[2023-02-22 21:16] LABS: ERYTHROCYTE SEDIMENTATION RATE 8 MM/HR (0-30)
--- NOTE | 2023-02-22 21:16 | Diagnostic Imaging Report ---
INDICATION: Trauma, fall with head and neck pain. TECHNIQUE: Multiple contiguous axial images were obtained through the brain and cervical spine without the use of intravenous contrast. Sagittal and coronal reformations through the cervical spine were then performed. Auto Exposure Controls were utilized during the CT exam to meet ALARA standards for radiation dose reduction. Comparison made to 11/06/2022. CTA head findings: There are mild diffuse atrophic changes. There are mild chronic changes in deep white matter compatible with chronic ischemic change. There is no acute hemorrhage or subdural or epidural collection. The ventricles are normal in size. There is no acute territorial ischemia. Calvarial windows are unremarkable. CT cervical spine findings: There was no evidence of cervical spine fracture. There is no subluxation or malalignment. There is previous anterior fusion from C3 through C7. The facets are in good alignment. There are prominent osteophytes at C7-T1. There is marked erythematous change of the lung apices. IMPRESSION: CT head shows mild chronic changes with no acute intracranial abnormality or calvarial fracture. CT cervical spine shows extensive degenerative changes with no acute fracture or subluxation. The appearance is unchanged from 11/06/2022. Dictated by: Dictated on workstation # [id number]
--- NOTE | 2023-02-22 21:17 | Diagnostic Imaging Report ---
Indication: Vomiting, multiple falls. Frontal chest obtained at 8:49 p.m. and compared to 11/06/2022. Heart is normal in size. There is COPD change with hyperinflation. There is no focal infiltrate or pneumothorax or pleural fluid. There is prior lower cervical spine fusion and thoracolumbar spine fusion. Impression: COPD changes with no acute process in the chest. Dictated by: Dictated on workstation # [id number]
--- NOTE | 2023-02-22 21:18 | Diagnostic Imaging Report ---
INDICATION: Left elbow pain post fall. AP, oblique, and lateral views of the left elbow are obtained. No fracture or acute bony abnormality seen. Joint spaces appear unremarkable. IMPRESSION: Negative left elbow. Dictated by: Dictated on workstation # [id number]
--- NOTE | 2023-02-22 21:18 | Diagnostic Imaging Report ---
Indication: Left forearm pain AP and lateral views of the left forearm are obtained. No fracture or acute bony abnormality seen. Impression: Negative left forearm. Dictated by: Dictated on workstation # [id number]
--- NOTE | 2023-02-22 21:18 | Diagnostic Imaging Report ---
INDICATION: Pelvic pain post fall. AP pelvis obtained at 8:50 p.m. and compared with 01/22/2017. No fracture or acute bony abnormality seen. There is generalized demineralization. Joint spaces are unremarkable. IMPRESSION: No acute bone abnormality of the pelvis. Dictated by: Dictated on workstation # [id number]
[2023-02-22 21:31] LABS: CREATINE KINASE MB 0.6 NG/ML (<6.6)
--- NOTE | 2023-02-22 21:32 | Diagnostic Imaging Report ---
INDICATION: Multiple falls with back pain. TECHNIQUE: Multiple contiguous axial images were obtained through the thoracic and lumbar spine without the use of intravenous contrast. Sagittal and coronal reformations were then performed. All CT scans use one or more of the following dose optimizing techniques: automated exposure control, MA and/or KvP adjustment based on a patient size and exam type, or iterative reconstruction. CT thoracic spine findings: There has been prior fusion from T10 through L5 with pedicle screws. The thoracic vertebrae are normal in height and alignment with no acute compression deformity or subluxation. There is no overt canal stenosis. CT lumbar spine findings: Patient has had posterior fusion as above from T10 through L5. There are disc prostheses at L1-L2, L2-L3, L3-L4, and L4-L5. There is no acute fracture or malalignment or acute bone abnormality in the lumbar spine. IMPRESSION: Extensive postop changes throughout the thoracic and lumbar spine as above with no evidence of acute fracture or subluxation or significant canal narrowing. Dictated by: Dictated on workstation # [id number]
--- NOTE | 2023-02-22 21:56 | ED General ---
General Chief Complaint: Respiratory Problems Stated Complaint: VOMITING/DIARRHEA Nursing Triage Note: PATIENT ARRIVED VIA EMS TO ED WITH MULTIPLE COMPLAINTS, PATIENT STATES HE HAS BEEN NOT FEELING WELL FOR FIVE DAYS. PATIENT STATES HAS FALLEN, STATES SOB WITH EXERTION. PT REPORTS HE USUALLY TRAVELS FROM [place] TO [place] DAILY WITH NO ISSUES AND THIS PAST WEEK HASNT BEEN ABLE TO DO THIS. STATES HAS FALLEN MULTIPLE TIMES. PATIENT STATES MOST RECENT FALL INJURED LEFT ARM, NOTICABLE SCABED OVER AREA. COMPLAINT OF PAIN IN THIS ARM. PATIENT STATES HAS A COUGH ALSO. PATIENT REPORTS DIARRHEA AND VOMITTING X5 DAYS. STATES NOW DIARRHEA IS "RED". PATIENT IS HOMELESS, STATES HASN'T REALLY EATEN OR HAD ANYTHING TO DRINK IN LAST WEEK. PATIENT ALSO REPORTS HE HAS REMOVED A FEW TICKS. STATES OVERALL WEAKNESS Source of Information: Patient History of Present Illness Date Seen by Provider: Feb 22, 2023 Initial Comments PT ARRIVES VIA EMS--PT IS HOMELESS PT WITH A MULTITUDE OF COMPLAINTS Allergies and Home Medications Allergies Coded Allergies: ibuprofen (Verified Adverse Reaction, Unknown, Hypertension, pt has rec ASA in the past, 11/05/21) HYPERTENSION tramadol (Verified Adverse Reaction, Unknown, VOMIT, 10/03/18) Patient Home Medication List Albuterol Sulfate (Ventolin Hfa) 1 Puff Puff, 2 PUFF INH Q4H Prescribed by: YESI ROGERS on 10/27/22 182 Aspirin (Aspirin EC) 81 Mg Tablet.dr, 81 MG PO DAILY Prescribed by: KAYLIN BURDEN on 11/10/21 151 Atorvastatin Calcium (Lipitor) 40 Mg Tablet, 40 MG PO HS Prescribed by: KAYLIN BURDEN on 11/10/21 151 Azithromycin (Azithromycin) 250 Mg Tablet, 250 MG PO UD Prescribed by: YESI ROGERS on 10/27/22 182 Hydrocodone/Acetaminophen (Hydrocodone-Acetamin 5-325 mg) 5 Mg-325 Mg Tablet, 1 TAB PO Q6H PRN for PAIN-MODERATE (5-7) Prescribed by: LUCIA COLEMAN on 01/30/23 1648 Lisinopril (Lisinopril) 20 Mg Tablet, 40 MG PO DAILY Prescribed by: KAYLIN BURDEN on 11/10/21 151 Ondansetron (Ondansetron Odt) 4 Mg Tab.rapdis, 4 MG PO Q4H Prescribed by: TIMI MATTSON on 12/07/212234 Ondansetron (Ondansetron Odt) 4 Mg Tab.rapdis, 4 MG SL Q8H PRN for NAUSEA/VOMITING Prescribed by: LUCIA COLEMAN on 05/22/22 1151 Ondansetron (Ondansetron Odt) 4 Mg Tab.rapdis, 4 MG SL Q8H PRN for NAUSEA/VOMITING Prescribed by: LUCIA COLEMAN on 01/30/23 1648 Pantoprazole Sodium (Protonix) 40 Mg Tablet.dr, 40 MG PO DAILY Prescribed by: TIMI MATTSON on 12/07/212234 Prednisone (Prednisone) 20 Mg Tab, 40 MG PO DAILY Prescribed by: YESI ROGERS on 10/27/22 1821 Past Rfoctwb-Rpscpt-Vnwqyg Hx Patient Social History Tobacco Use?: Yes Tobacco type used: Cigarettes Smoking Status: Current Everyday Smoker Substance use?: No Alcohol Use?: Yes Alcohol type: Hard Liquor Alcohol Frequency: Daily Immunizations Up To Date Tetanus Booster (TDap): Less than 5yrs PED Vaccines UTD: Yes Influenza Vaccine Up-to-Date: No; Not Current First/Initial COVID19 Vaccinat: 09/2021 Second COVID19 Vaccination Jl: 10/2021 Third COVID19 Vaccination Date: 09/2021 Seasonal Allergies Seasonal Allergies: No Past Medical History Surgery/Hospitalization HX: BACK X 3, ROTATOR CUFF X 3, APPENDIX, GALLBLADDER Surgeries: Yes Appendectomy, Ear Surgery, Gallbladder, Orthopedic Respiratory: Yes (COVID PNEUMONIA 08/2021) Chronic Bronchitis Currently Using CPAP: No Currently Using BIPAP: No Cardiac: Yes High Cholesterol, Hypertension Neurological: Yes (TIA 01/2021; RESTLESS LEG SYNDROME) TIA Reproductive Disorders: No Sexually Transmitted Disease: No HIV/AIDS: No Genitourinary: No Gastrointestinal: Yes (ESOPHAGEAL STRICTURES/DILATIONS) Gastroesophageal Reflux Musculoskeletal: Yes (CHRONIC LEFT SHOULDER PAIN;CHRONIC NECK/BACK PAIN ) Degenerate Disk Disease, Arthritis, Chronic Back Pain Endocrine: No HEENT: Yes (POOR DENTITION; BMT'S;CHRONIC DYSPHAGIA AND HOARSENESS ) Dysphagia, Chronic Ear Infection Hearing Impairment: Hard of Hearing Cancer: Yes Skin Did You Recieve Any Treatments: Yes What Type of Treatment Did You: Surgical Intervention Psychosocial: Yes (POLYSUBSTANCE ABUSE AND OVERDOSES) Anxiety, Suicide Attempts, Depression Integumentary: No Blood Disorders: No Adverse Reaction/Blood Tranf: No (N/A) Family Medical History Cancer 03 FATHER (PROSTATE) 03 MOTHER (BREAST CA ) 09 BROTHER (THROAT/PANCREATIC) 09 SISTER (LIVER) DEAFNESS 03 FATHER 09 BROTHER Family history: Breast disease 03 MOTHER (BREAST CA) History of - respiratory disease Prostate cancer 03 FATHER Stroke 03 MOTHER Visual impairment No Pertinent Family Hx LONG HISTORY OF EXTREME NON-COMPLIANCE IN ALL ASPECTS OF CARE SOCIAL HISTORY: -SMOKES 2-3 PPD -ETOH--ABUSE/DAILY USE--ALSO DRINKS LARGE AMOUNTS OF NYQUIL DAILY; WITH HISTORY OF ALCOHOL WITHDRAWL SYMPTOMS -DRUGS-EXTENSIVE POLYSUBSTANCE ABUSE AND OVERDOSES--ESPECIALLY XANAX/BENZODIAZEPINES AND NARCOTICS/OPIATES; METHAMPHETAMINES -HAS HAD A MULTITUDE OF ACCIDENTS DUE TO SUBSTANCE ABUSE, HISTORY OF GETTING MULTIPLE RX'S FROM MULTIPROVIDERS USING MULTIPLE PHARMACIES; -HAS BEEN EVICTED FROM MULTIPLE REHAB /SUBSTANCE ABUSE TREATMENT FACILITIES, INCLUDING HEALTH SYSTEM, FOR EXTREME NON-COMPLIANCE. 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 2.0oz. [id number]; 24.00 BMI Method:Stated Focused Exam Lactate Level 02/22/23 20:23: Lactic Acid Level 2.08*H 02/22/23 22:40: Lactic Acid Level 0.91 Lactic Acid Level Laboratory Tests Test 02/22/23 20:23 02/22/23 22:40 Lactic Acid Level 2.08 MMOL/L (0.50-2.00) *H 0.91 MMOL/L (0.50-2.00) Progress/Results/Core Measures Suspected Sepsis SIRS Temperature: Pulse: Respiratory Rate: 18 Laboratory Tests 02/22/23 20:23: White Blood Count 7.5 Blood Pressure 124 /77 Mean: 93 02/22/23 20:23: Lactic Acid Level 2.08*H 02/22/23 22:40: Lactic Acid Level 0.91 Laboratory Tests 02/22/23 20:23: Creatinine 0.87, INR Comment 1.0, Platelet Count 244, Total Bilirubin 0.9 Results/Orders Lab Results Laboratory Tests Test 02/22/23 20:23 02/22/23 21:40 02/22/23 22:40 02/22/23 22:45 Range/Units White Blood Count 7.5 4.3-11.0 10^3/uL Red Blood Count 4.46 4.30-5.52 10^6/uL Hemoglobin 15.3 13.3-17.7 g/dL Hematocrit 44 40-54 % Mean Corpuscular Volume 98 80-99 fL Mean Corpuscular Hemoglobin 34 25-34 pg Mean Corpuscular Hemoglobin Concent 35 32-36 g/dL Red Cell Distribution Width 13.4 10.0-14.5 % Platelet Count 244 130-400 10^3/uL Mean Platelet Volume 8.7 L 9.0-12.2 fL Immature Granulocyte % (Auto) 0 % Neutrophils (%) (Auto) 60 42-75 % Lymphocytes (%) (Auto) 23 12-44 % Monocytes (%) (Auto) 13 H 0-12 % Eosinophils (%) (Auto) 2 0-10 % Basophils (%) (Auto) 1 0-10 % Neutrophils # (Auto) 4.5 1.8-7.8 10^3/uL Lymphocytes # (Auto) 1.7 1.0-4.0 10^3/uL Monocytes # (Auto) 1.0 0.0-1.0 10^3/uL Eosinophils # (Auto) 0.2 0.0-0.3 10^3/uL Basophils # (Auto) 0.1 0.0-0.1 10^3/uL Immature Granulocyte # (Auto) 0.0 0.0-0.1 10^3/uL Erythrocyte Sedimentation Rate 8 0-30 MM/HR Prothrombin Time 13.7 12.2-14.7 SEC INR Comment 1.0 0.8-1.4 Activated Partial Thromboplast Time 29 24-35 SEC Sodium Level 137 135-145 MMOL/L Potassium Level 2.7 L 3.6-5.0 MMOL/L Chloride Level 97 L 98-107 MMOL/L Carbon Dioxide Level 25 21-32 MMOL/L Anion Gap 15 H 5-14 MMOL/L Blood Urea Nitrogen 13 7-18 MG/DL Creatinine 0.87 0.60-1.30 MG/DL Estimat Glomerular Filtration Rate 94 BUN/Creatinine Ratio 15 Glucose Level 103 70-105 MG/DL Lactic Acid Level 2.08 *H 0.91 0.50-2.00 MMOL/L Calcium Level 9.0 8.5-10.1 MG/DL Corrected Calcium 9.2 8.5-10.1 MG/DL Magnesium Level 1.6 1.6-2.4 MG/DL Total Bilirubin 0.9 0.1-1.0 MG/DL Aspartate Amino Transf (AST/SGOT) 18 5-34 U/L Alanine Aminotransferase (ALT/SGPT) 18 0-55 U/L Alkaline Phosphatase 108 40-136 U/L Ammonia 38 H 11-32 UMOL/L Total Creatine Kinase 68 30-200 U/L Creatine Kinase MB 0.6 <6.6 NG/ML Myoglobin 39.8 10.0-92.0 NG/ML Troponin I < 0.028 <0.028 NG/ML C-Reactive Protein High Sensitivity 0.88 H 0.00-0.50 MG/DL B-Type Natriuretic Peptide 34.5 <100.0 PG/ML Total Protein 6.5 6.4-8.2 GM/DL Albumin 3.7 3.2-4.5 GM/DL Amylase Level 30 25-125 U/L Lipase 16 8-78 U/L TSH Bland Testing 0.60 0.35-4.94 UIU/ML Serum Alcohol < 10 <10 MG/DL Influenza Type A (RT-PCR) Not Detected Not Detecte Influenza Type B (RT-PCR) Not Detected Not Detecte SARS-CoV-2 RNA (RT-PCR) Not Detected Not Detecte Urine Color DARK YELLOW Urine Clarity CLEAR Urine pH 5.5 5-9 Urine Specific [place] 1.020 1.016-1.022 Urine Protein TRACE H NEGATIVE Urine Glucose (UA) NEGATIVE NEGATIVE Urine Ketones TRACE H NEGATIVE Urine Nitrite NEGATIVE NEGATIVE Urine Bilirubin 2+ H NEGATIVE Urine Urobilinogen 1.0 < = 1.0 MG/DL Urine Leukocyte Esterase NEGATIVE NEGATIVE Urine RBC (Auto) NEGATIVE NEGATIVE Urine RBC RARE /HPF Urine WBC 0-2 /HPF Urine Crystals NONE /LPF Urine Bacteria TRACE /HPF Urine Casts NONE /LPF Urine Mucus SMALL H /LPF Urine Culture Indicated NO Urine Opiates Screen NEGATIVE NEGATIVE Urine Oxycodone Screen NEGATIVE NEGATIVE Urine Methadone Screen NEGATIVE NEGATIVE Urine Propoxyphene Screen NEGATIVE NEGATIVE Urine Barbiturates Screen NEGATIVE NEGATIVE Ur Tricyclic Antidepressants Screen NEGATIVE NEGATIVE Urine Phencyclidine Screen NEGATIVE NEGATIVE Urine Amphetamines Screen NEGATIVE NEGATIVE Urine Methamphetamines Screen NEGATIVE NEGATIVE Urine Benzodiazepines Screen POSITIVE H NEGATIVE Urine Cocaine Screen NEGATIVE NEGATIVE Urine Cannabinoids Screen NEGATIVE NEGATIVE My Orders Orders - TIMI MATTSON DO Ed Iv/Invasive Line Start (02/22/23 20:20) Ekg Tracing (02/22/23 20:20) O2 (02/22/23 20:20) Monitor-Rhythm Ecg Trace Only (02/22/23 20:20) Amylase (02/22/23 20:20) Cbc With Automated Diff (02/22/23 20:20) Comprehensive Metabolic Panel (02/22/23 20:20) Lipase (02/22/23 20:20) Magnesium (02/22/23 20:20) Protime With Inr (02/22/23 20:20) Partial Thromboplastin Time (02/22/23 20:20) Ua Culture If Indicated (02/22/23 20:20) Troponin I [place] (02/22/23 20:20) Chest 1 View, Ap/Pa Only (02/22/23 20:20) Covid 19 Inhouse Test (02/22/23 20:20) Influenza A And B By Pcr (02/22/23 20:20) Ct Head/Cervical Spine Wo (02/22/23 20:27) Ct Thoracic/Lumbar Spine Wo (02/22/23 20:27) Forearm, Left, 2 Views (02/22/23 20:27) Elbow, Left, 3 Views (02/22/23 20:27) Pelvis 1 To 2 Views (02/22/23 20:27) Alcohol (02/22/23 20:27) Ammonia (02/22/23 20:27) Bnp [place] (02/22/23 20:27) Creatine Kinase (02/22/23 20:27) Creatine Kinase Mb (02/22/23 20:27) Hs C Reactive Protein (02/22/23 20:27) Drug Screen Stat (Urine) (02/22/23 20:27) Lactic Acid Analyzer (02/22/23 20:27) Thyroid Analyzer (02/22/23 20:27) Erythrocyte Sedimentation Rate (02/22/23 20:27) Myoglobin Serum (02/22/23 20:27) Ed Iv/Invasive Line Start (02/22/23 20:27) Lactated Ringers (Lr 1000 Ml Iv Solution (02/22/23 20:30) Ondansetron Injection (Zofran Injectio (02/22/23 20:30) Ct Mylene Chest/Noang Abd-Pelv W (02/22/23 20:27) Pantoprazole Injection (Protonix Injecti (02/22/23 20:30) Dipht,Pertuss(Acell),Tet Adult (Boostrix (02/22/23 20:30) Tick Panel With Lyme Eia (02/22/23 20:31) Straight Cath For Spec.-Adult (02/22/23 22:29) Potassium Chloride (Tablet) (Klor Con Ta (02/22/23 22:45) Ed Iv/Invasive Line Start (02/22/23 22:40) Lactated Ringers (Lr 1000 Ml Iv Solution (02/22/23 22:45) Medications Given in ED Current Medications Medications Dose Ordered Sig/Isabell Route Start Time Stop Time Status Last Admin Dose Admin Diphtheria/ Tetanus/Acell Pertussis 0.5 ml ONCE ONCE IM 02/22/23 20:30 02/22/23 20:31 DC 02/22/23 21:38 0.5 ML Lactated Ringer's 1,000 ml @ 0 mls/hr Q0M ONCE IV 02/22/23 20:30 02/22/23 20:31 DC 02/22/23 21:37 0 MLS/HR Lactated Ringer's 1,000 ml @ 0 mls/hr Q0M ONCE IV 02/22/23 22:45 02/22/23 22:46 DC 02/22/23 22:49 0 MLS/HR Ondansetron HCl 4 mg ONCE ONCE IVP 02/22/23 20:30 02/22/23 20:31 DC 02/22/23 21:38 4 MG Pantoprazole 40 mg ONCE ONCE IV 02/22/23 20:30 02/22/23 20:31 DC 02/22/23 21:37 40 MG Potassium Chloride 40 meq ONCE ONCE PO 02/22/23 22:45 02/22/23 22:46 DC 02/22/23 22:49 40 MEQ Vital Signs/I&O 02/22/23 02/22/23 20:21 20:21 Temp 37.2 Resp 18 B/P (MAP) 124/77 (93) Pulse Ox 94 O2 Delivery Room Air Room Air Capillary Refill : Less Than 3 Seconds Blood Pressure Mean: 93 Progress Note : Progress Note ONLY WANTING PAIN MEDICATIONS PT HAD NO NAUSEA, VOMITING, DIARRHEA OR ABDOMINAL PAIN NO COUGH NO CHEST PAIN NO SHORTNESS OF BREATH OR DYSPNEA OR HYPOXIA Departure Impression Primary Impression: CHRONIC PAIN COMPLAINTS Disposition: 01 HOME, SELF-CARE Condition: Stable Departure-Patient Inst. Decision time for Depature: 23:20 Referrals: [facility] (PCP/Family) Primary Care Physician Patient Instructions: CHRONIC PAIN Add. Discharge Instructions: TAKE YOUR REGULAR MEDICATIONS PRESCRIBED FOLLOW UP WITH YOUR DR THIS WEEK FOR FURTHER CARE All discharge instructions reviewed with patient and/or family. Voiced unde rstanding. TIMI MATTSON DO Feb 22, 2023 21:56
--- NOTE | 2023-02-22 22:00 | Diagnostic Imaging Report ---
INDICATION: Trauma with chest and abdominal pain. CTA chest, abdomen and pelvis Thin axial sections through the chest, abdomen and pelvis are obtained following intravenous contrast bolus. Multiplanar MIP images were reconstructed and reviewed. All CT scans use one or more of the following dose optimizing techniques: automated exposure control, MA and/or KvP adjustment based on patient size and exam type or iterative reconstruction. CTA chest findings: Pulmonary parenchymal vessels appear unremarkable with no evidence of pulmonary emboli. The thoracic aorta shows no evidence of dissection or aneurysm. Great vessel origins are patent. There is no mediastinal hematoma. There is no pleural or pericardial fluid. Bony windows in the chest show no overt acute bone abnormality. There are postoperative changes in the thoracolumbar spine, see separate dictation. Lung parenchymal windows demonstrate extensive emphysematous changes throughout both lungs. There is no consolidation or discrete pulmonary parenchymal lesion. CT abdomen and pelvis findings: The liver shows no focal lesion. Gallbladder is surgically absent. The spleen, adrenals, and pancreas are normal. The kidneys bilaterally appear unremarkable. There is atherosclerotic change of aorta without evidence of aneurysm. There is no retroperitoneal hematoma or mass. There is no ascites or hemoperitoneum. Visualized bowel loops are unremarkable. There is no pelvic mass or adenopathy. There is no evidence of pelvic fracture. IMPRESSION: CTA chest shows no pulmonary emboli or aortic injury or acute traumatic process in the chest. There is severe emphysematous change. There is no acute abnormality in the chest. CT abdomen and pelvis demonstrates no evidence of solid organ injury or free fluid. There is no acute process in the abdomen or pelvis. There are extensive postop changes in the thoracolumbar spine as above. There is no pelvic fracture. Dictated by: Dictated on workstation # [id number]
[2023-02-22] MEDS ORDERED: KCL 10 MEQ TAB (MICRO K) PO ONE (22:45)
[2023-02-22 22:52] LABS: CLARITY,URINE CLEAR; COLOR,URINE DARK YELLOW; GLUCOSE, URINE (UA) NEGATIVE (NEGATIVE); KETONES,URINE TRACE (NEGATIVE); LEUKOCYTE ESTERASE ,URINE NEGATIVE (NEGATIVE); NITRITE,URINE NEGATIVE (NEGATIVE); PH,URINE 5.5 (5-9); PROTEIN,URINE TRACE (NEGATIVE)
[2023-02-22 23:00] LABS: BACTERIA,URINE TRACE /HPF; RBC,URINE RARE /HPF; WBC,URINE 0-2 /HPF
[2023-02-22 23:01] LABS: BILIRUBIN,URINE 2+ (NEGATIVE)
[2023-02-22 23:02] LABS: AMPHETAMINE SCREEN, URINE NEGATIVE (NEGATIVE); BARBITURATE SCREEN URINE NEGATIVE (NEGATIVE); BENZODIAZEPINES SCREEN URINE POSITIVE (NEGATIVE); CANNABINOID SCREEN, URINE NEGATIVE (NEGATIVE); COCAINE SCREEN URINE NEGATIVE (NEGATIVE); METHADONE STAT NEGATIVE (NEGATIVE); OPIATE SCREEN URINE NEGATIVE (NEGATIVE); OXYCODONE STAT NEGATIVE (NEGATIVE); PROPOXYPHENE STAT NEGATIVE (NEGATIVE); TRICYCLIC ANTIDEPRESSANTS SCRE NEGATIVE (NEGATIVE)
[2023-02-22 23:45] VITALS: BP 113/70
== END 2023-02-22 23:49 | disposition home or self-care (01) ==
LOC: EDUNIT# 20:18 → ER 20:19
DX: G89.29 Other chronic pain (principal); M79.632 Pain in left forearm; M25.522 Pain in left elbow; F17.210 Nicotine dependence, cigarettes, uncomplicated; Z86.16 Personal history of COVID-19; Z23 Encounter for immunization; Z20.822 Contact with and (suspected) exposure to COVID-19; W18.30XA Fall on same level, unspecified, initial encounter
CPT/HCPCS: 51701; 70450; 71045; 71275; 72125; 72128; 72131; 72170; 73080; 73090; 74177; 80053; 80306; 81000; 82140; 82150; 82550; 82553; 83605; 83690; 83735; 83874; 83880; 84443; 84484; 85025; 85610; 85652; 85730; 86141; 86618; 86666 ×2; 86668; 86757 ×2; 87636; 93005; 93041; 99284; G0480; 36415; 80320; 90715

== ENCOUNTER 2023-03-22 17:06 | Inpatient (IN) | payer MEDICARE, MEDICAID ==
[~2023-03-22] VITALS: Ht 167 cm; Wt 62.2 kg
[2023-03-22] MEDS ORDERED: NS IV 1000 ML 1,000 ML IV SCH (17:45)
[2023-03-22] MEDS ORDERED: morphine INJ 4 MG/ML 1 ML (VIAL/SYRINGE) IVP ONE (17:45)
[2023-03-22] MEDS ORDERED: ONDANSETRON 4 MG/2 ML (SDV) Z0FRAN IVP ONE (17:45)
--- NOTE | 2023-03-22 17:51 | ED Abdominal Pain ---
General Chief Complaint: General Problems/Pain Stated Complaint: LOSS OF APETITE/AB AND BACK PAIN Nursing Triage Note: pt is homeless, nephew brought pt in because a nurse a [facility] called and stated that he had labs that needed evaluated at the ER. Pt drinks daily and complains of stomach and back pain. Source of Information: Patient, Family Exam Limitations: No Limitations History of Present Illness Date Seen by Provider: Mar 22, 2023 Time Seen by Provider: 17:20 Initial Comments 68-year-old male was sent to the ER by [facility] for elevated lipase. He presents today with his nephew. He reports he has been having mid upper abdominal pain that radiates straight through to his back for the last couple months, but states has been getting worse. He reports nausea, denies vomiting. Reports intermittent chest pain, last episode of chest pain was 1 hour prior to arrival. He reports intermittent fevers. States he has had 3 episodes of loose stools t cornelius. Denies dysuria. Patient is a daily drinker, drinks 1 pint of vodka a day. Patient's nephew states that patient has been falling a lot. Patient denies hitting his head, no obvious signs of head trauma, patient denies any pain elsewhere on his body besides his abdomen. Nephew states that patient is homeless, he found him tonight sleeping behind a building. Patient's nephew states that he had gotten patient into [facility] and rehab, but patient checked himself out a couple months ago. Nephew is concerned that patient is not caring for himself. Patient was unable to list his medical conditions, states he does not take any medications regularly. Patient's nephew states that patient's primary care provider took him off of all of his medication because patient is an alcoholic. Patient states he has not seen his primary care provider in over 6 months. Allergies and Home Medications Allergies Coded Allergies: ibuprofen (Verified Adverse Reaction, Unknown, Hypertension, pt has rec ASA in the past, 11/05/21) HYPERTENSION tramadol (Verified Adverse Reaction, Unknown, VOMIT, 10/03/18) Patient Home Medication List Home Medication List Reviewed: Yes Albuterol Sulfate (Ventolin Hfa) 1 Puff Puff, 2 PUFF INH Q4H Prescribed by: YESI ROGERS on 10/27/22 2695 Last Action: Continued Aspirin (Aspirin EC) 81 Mg Tablet.dr, 81 MG PO DAILY Prescribed by: KAYLIN BURDEN on 11/10/211513 Last Action: Continued Atorvastatin Calcium (Lipitor) 40 Mg Tablet, 40 MG PO HS Prescribed by: KAYLIN BURDEN on 11/10/211513 Last Action: Continued Azithromycin (Azithromycin) 250 Mg Tablet, 250 MG PO UD Prescribed by: YESI ROGERS on 10/27/221820 Last Action: Held Hydrocodone/Acetaminophen (Hydrocodone-Acetamin 5-325 mg) 5 Mg-325 Mg Tablet, 1 TAB PO Q6H PRN for PAIN-MODERATE (5-7) Prescribed by: LUCIA COLEMAN on 01/30/231647 Last Action: Held Lisinopril (Lisinopril) 20 Mg Tablet, 40 MG PO DAILY Prescribed by: KAYLIN BURDEN on 11/10/211513 Last Action: Held Ondansetron (Ondansetron Odt) 4 Mg Tab.rapdis, 4 MG PO Q4H Prescribed by: TIMI MATTSON on 12/07/212234 Last Action: Held Ondansetron (Ondansetron Odt) 4 Mg Tab.rapdis, 4 MG SL Q8H PRN for NAUSEA/VOMITING Prescribed by: LUCIA COLEMAN on 05/22/22 1151 Last Action: Held Ondansetron (Ondansetron Odt) 4 Mg Tab.rapdis, 4 MG SL Q8H PRN for NAUSEA/VOMITING Prescribed by: LUCIA COLEMAN on 01/30/231647 Last Action: Held Pantoprazole Sodium (Protonix) 40 Mg Tablet.dr, 40 MG PO DAILY Prescribed by: TIMI MATTSON on 12/07/212234 Last Action: Held Prednisone (Prednisone) 20 Mg Tab, 40 MG PO DAILY Prescribed by: YESI ROGERS on 10/27/221820 Last Action: Held Review of Systems Review of Systems Constitutional: see HPI Past Sxdktcg-Rwsqqq-Tiwnlv Hx Patient Social History Tobacco Use?: Yes Tobacco type used: Cigarettes Smoking Status: Current Everyday Smoker Use of E-Cig and/or Vaping dev: No Substance use?: No Alcohol Use?: Yes Alcohol type: Hard Liquor Alcohol Frequency: Daily Pt feels they are or have been: No Immunizations Up To Date Tetanus Booster (TDap): Less than 5yrs PED Vaccines UTD: Yes Influenza Vaccine Up-to-Date: No; Not Current First/Initial COVID19 Vaccinat: 09/2021 Second COVID19 Vaccination Jl: 10/2021 Third COVID19 Vaccination Date: 09/2021 Seasonal Allergies Seasonal Allergies: No Past Medical History Surgery/Hospitalization HX: BACK X 3, ROTATOR CUFF X 3, APPENDIX, GALLBLADDER Surgeries: Yes Appendectomy, Ear Surgery, Gallbladder, Orthopedic Respiratory: Yes (COVID PNEUMONIA 08/2021) Chronic Bronchitis Currently Using CPAP: No Currently Using BIPAP: No Cardiac: Yes High Cholesterol, Hypertension Neurological: Yes (TIA 01/2021; RESTLESS LEG SYNDROME) TIA Reproductive Disorders: No Sexually Transmitted Disease: No HIV/AIDS: No Genitourinary: No Gastrointestinal: Yes (ESOPHAGEAL STRICTURES/DILATIONS) Gastroesophageal Reflux Musculoskeletal: Yes (CHRONIC LEFT SHOULDER PAIN;CHRONIC NECK/BACK PAIN ) Degenerate Disk Disease, Arthritis, Chronic Back Pain Endocrine: No HEENT: Yes (POOR DENTITION; BMT'S;CHRONIC DYSPHAGIA AND HOARSENESS ) Dysphagia, Chronic Ear Infection Hearing Impairment: Hard of Hearing Cancer: Yes Skin Did You Recieve Any Treatments: Yes What Type of Treatment Did You: Surgical Intervention Psychosocial: Yes (POLYSUBSTANCE ABUSE AND OVERDOSES) Anxiety, Suicide Attempts, Depression Integumentary: No Blood Disorders: No Adverse Reaction/Blood Tranf: No (N/A) Family Medical History Cancer 03 FATHER (PROSTATE) 03 MOTHER (BREAST CA ) 09 BROTHER (THROAT/PANCREATIC) 09 SISTER (LIVER) DEAFNESS 03 FATHER 09 BROTHER Family history: Breast disease 03 MOTHER (BREAST CA) History of - respiratory disease Prostate cancer 03 FATHER Stroke 03 MOTHER Visual impairment No Pertinent Family Hx LONG HISTORY OF EXTREME NON-COMPLIANCE IN ALL ASPECTS OF CARE SOCIAL HISTORY: -SMOKES 2-3 PPD -ETOH--ABUSE/DAILY USE--ALSO DRINKS LARGE AMOUNTS OF NYQUIL DAILY; WITH HISTORY OF ALCOHOL WITHDRAWL SYMPTOMS -DRUGS-EXTENSIVE POLYSUBSTANCE ABUSE AND OVERDOSES--ESPECIALLY XANAX/BENZODIAZEPINES AND NARCOTICS/OPIATES; METHAMPHETAMINES -HAS HAD A MULTITUDE OF ACCIDENTS DUE TO SUBSTANCE ABUSE, HISTORY OF GETTING MULTIPLE RX'S FROM MULTIPROVIDERS USING MULTIPLE PHARMACIES; -HAS BEEN EVICTED FROM MULTIPLE REHAB /SUBSTANCE ABUSE TREATMENT FACILITIES, INCLUDING [facility], FOR EXTREME NON-COMPLIANCE. 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 % Physical Exam Vital Signs Vital Signs - First Documented 03/22/23 17:27 Temp 36.5 Pulse 77 Resp 18 B/P (MAP) 117/83 (94) Pulse Ox 95 O2 Delivery Room Air Capillary Refill : Less Than 3 Seconds Height/Weight/BMI Height: 5'6.00" Weight: 130lbs. 2.0oz. 59.644010yn; 22.00 BMI Method:Stated General Appearance: WD/WN, no apparent distress Neck: non-tender, full range of motion, supple, normal inspection Respiratory: lungs clear, normal breath sounds, no respiratory distress, no accessory muscle use Cardiovascular: regular rate, rhythm Gastrointestinal: normal bowel sounds, soft, guarding (Right mid, middle abdomen, and epigastric region), tenderness (Right mid, middle abdomen, and epigastric region) Extremities: normal range of motion, normal inspection Neurologic/Psychiatric: alert, normal mood/affect, oriented x 3 Skin: normal color, warm/dry Progress/Results/Core Measures Results/Orders Lab Results Laboratory Tests Test 03/22/23 17:48 03/22/23 18:03 Range/Units White Blood Count 4.6 4.3-11.0 10^3/uL Red Blood Count 4.35 4.30-5.52 10^6/uL Hemoglobin 14.9 13.3-17.7 g/dL Hematocrit 44 40-54 % Mean Corpuscular Volume 101 H 80-99 fL Mean Corpuscular Hemoglobin 34 25-34 pg Mean Corpuscular Hemoglobin Concent 34 32-36 g/dL Red Cell Distribution Width 13.9 10.0-14.5 % Platelet Count 125 L 130-400 10^3/uL Mean Platelet Volume 8.8 L 9.0-12.2 fL Immature Granulocyte % (Auto) 0 % Neutrophils (%) (Auto) 63 42-75 % Lymphocytes (%) (Auto) 21 12-44 % Monocytes (%) (Auto) 15 H 0-12 % Eosinophils (%) (Auto) 1 0-10 % Basophils (%) (Auto) 0 0-10 % Neutrophils # (Auto) 2.9 1.8-7.8 10^3/uL Lymphocytes # (Auto) 1.0 1.0-4.0 10^3/uL Monocytes # (Auto) 0.7 0.0-1.0 10^3/uL Eosinophils # (Auto) 0.0 0.0-0.3 10^3/uL Basophils # (Auto) 0.0 0.0-0.1 10^3/uL Immature Granulocyte # (Auto) 0.0 0.0-0.1 10^3/uL Percent Immature Platelet Fraction 2.4 0.0-7.6 % Prothrombin Time 13.4 12.2-14.7 SEC INR Comment 1.0 0.8-1.4 Activated Partial Thromboplast Time 34 24-35 SEC Sodium Level 139 135-145 MMOL/L Potassium Level 2.6 L 3.6-5.0 MMOL/L Chloride Level 101 98-107 MMOL/L Carbon Dioxide Level 23 21-32 MMOL/L Anion Gap 15 H 5-14 MMOL/L Blood Urea Nitrogen 9 7-18 MG/DL Creatinine 0.73 0.60-1.30 MG/DL Estimat Glomerular Filtration Rate 99 BUN/Creatinine Ratio 12 Glucose Level 106 H 70-105 MG/DL Calcium Level 8.2 L 8.5-10.1 MG/DL Corrected Calcium 8.9 8.5-10.1 MG/DL Magnesium Level 1.9 1.6-2.4 MG/DL Total Bilirubin 0.5 0.1-1.0 MG/DL Aspartate Amino Transf (AST/SGOT) 30 5-34 U/L Alanine Aminotransferase (ALT/SGPT) 22 0-55 U/L Alkaline Phosphatase 108 40-136 U/L Troponin I < 0.028 <0.028 NG/ML Total Protein 6.0 L 6.4-8.2 GM/DL Albumin 3.1 L 3.2-4.5 GM/DL Lipase 367 H 8-78 U/L Salicylates Level < 5.0 L 5.0-20.0 MG/DL Acetaminophen Level < 10 L 10-30 UG/ML Serum Alcohol 70 H <10 MG/DL My Orders Orders - [place] CHEUNG APRN Comprehensive Metabolic Panel (03/22/23 17:41) Lipase (03/22/23 17:41) Ua Culture If Indicated (03/22/23 17:41) Ed Iv/Invasive Line Start (03/22/23 17:41) Cbc With Automated Diff (03/22/23 17:41) Ns Iv 1000 Ml (Sodium Chloride 0.9%) (03/22/23 17:45) Ondansetron Injection (Zofran Injectio (03/22/23 17:45) Morphine Injection (Morphine Injection (03/22/23 17:45) Ekg Tracing (03/22/23 17:47) Magnesium (03/22/23 17:47) Chest 1 View, Ap/Pa Only (03/22/23 17:47) Protime With Inr (03/22/23 17:47) Partial Thromboplastin Time (03/22/23 17:47) Troponin I Marina (03/22/23 17:47) Ct Head/Cervical Spine Wo (03/22/23 17:48) Iohexol Injection (Omnipaque 350 Mg/Ml 1 (03/22/23 18:00) Received Contrast (Hold Metformin- Contr (03/22/23 18:00) Ns (Ivpb) 100 Ml (Sodium Chloride 0.9% 1 (03/22/23 18:00) Ct Angio Chst/Abd/Pelv W (03/22/23 17:59) Alcohol (03/22/23 17:59) Acetaminophen (03/22/23 17:59) Salicylate (03/22/23 17:59) Drug Screen Stat (Urine) (03/22/23 17:59) Potassium Chloride (Tablet) (K Dur Table (03/22/23 18:45) Fentanyl Inj (Sublimaze Injection) (03/22/23 19:00) Ed Admission (Communication) (03/22/23 19:31) Medications Given in ED Current Medications Medications Dose Ordered Sig/Isabell Route Start Time Stop Time Status Last Admin Dose Admin Fentanyl Citrate 75 mcg ONCE ONCE IVP 03/22/23 19:00 03/22/23 19:02 DC 03/22/23 19:07 75 MCG Iohexol 100 ml ONCE ONCE IV 03/22/23 18:00 03/22/23 18:01 DC 03/22/23 18:08 80 ML Morphine Sulfate 4 mg ONCE ONCE IVP 03/22/23 17:45 03/22/23 17:48 DC 03/22/23 17:56 4 MG Ondansetron HCl 4 mg ONCE ONCE IVP 03/22/23 17:45 03/22/23 17:48 DC 03/22/23 17:56 4 MG Potassium Chloride 40 meq ONCE ONCE PO 03/22/23 18:45 03/22/23 18:46 DC 03/22/23 18:39 40 MEQ Sodium Chloride 100 ml ONCE ONCE IV 03/22/23 18:00 03/22/23 18:01 DC 03/22/23 18:08 100 ML Vital Signs/I&O 03/22/23 17:27 Temp 36.5 Pulse 77 Resp 18 B/P (MAP) 117/83 (94) Pulse Ox 95 O2 Delivery Room Air Blood Pressure Mean: 94 Progress Progress Note : Progress Note Patient seen and evaluated, resting comfortably in bed, no acute distress. Based on exam and symptoms, work-up initiated including CBC, CMP, magnesium, troponin, coags, lipase, UA, EKG, CT head and neck, CT abdomen pelvis. IV fluids, Zofran, morphine ordered. 1848 Labs, CT, chest x-ray reviewed. CBC shows slightly elevated MCV 101, has a slightly decreased platelet 125. CMP shows decreased potassium 2.6, total protein slightly low 6.0, albumin slightly low 3.1. Lipase elevated 367. Coags normal. Serum alcohol 70. Tylenol and salicylate negative. Patient has not yet given a urine sample. Chest x-ray shows interstitial opacities in the mid and lower lungs, great on the right than the left. This possibly pulmonary edema, pneumonia, or atelectasis. CT chest, abdomen, pelvis shows that the lungs are clear, no evidence of pulmonary embolism or aortic dissection. Mild peripancreatic inflammatory stranding which is likely acute pancreatitis. Since CT shows no consolidation and clear lungs, I am not concerned for pneumonia. CT head and neck shows no acute intracranial abnormality, chronic microangiopathy and volume loss, degenerative changes of the cervical spine without acute osseous abnormality. Oral potassium ordered. I called and spoke with the [facility] resident, Dr. Michelle, for admission for acute alcoholic pancreatitis. She agrees to admit, she states she will come down and see patient here in the ER and place admission orders. Initial ECG Impression Date: Mar 22, 2023 Initial ECG Impression Time: 18:24 Initial ECG Rate: 79 Initial ECG Rhythm: Normal Sinus Initial ECG Intervals: Normal Initial ECG Impression: Normal Initial ECG Comparisson: Unchanged Diagnostic Imaging Diagonstic Imaging: Xray Plain Films/CT/US/NM/MRI: chest Comments [facility] [place] NAME: LUZ ELENA CALDWELL J [facility] REC#: [id number] PT STATUS: REG ER : 1955 PHYSICIAN: NY CHEUNG APRN ADMIT DATE: 03/22/23/ER Draft Date of Exam:03/22/23 CHEST 1 VIEW, AP/PA ONLY EXAMINATION: Chest 1 view. HISTORY: Chest pain. COMPARISON: 02/22/2023. FINDINGS: Heart size and pulmonary vasculature are normal. There are patchy interstitial opacities within the mid and lower lungs, right greater than left. No pleural effusion or pneumothorax. Surgical changes of the spine. IMPRESSION: Interstitial opacities within the mid and lower lungs, right greater than left. Findings can be seen with pulmonary edema, pneumonia or atelectasis. Dictated on workstation # [id number] Dict: 03/22/231804 Trans: 03/22/231807 [facility] [phone] Interpreted by: TAMMY OLMSTEAD DO Electronically signed by: Diagonstic Imaging: CT Plain Films/CT/US/NM/MRI: chest, abdomen, pelvis Comments [facility] [place] NAME: LUZ ELENA CALDWELL [email or web address] REC#: [id number] PT STATUS: REG ER : 1955 PHYSICIAN: NY CHEUNG APRN ADMIT DATE: 03/22/23/ER Draft Date of Exam:03/22/23 CT ANGIO CHST/ABD/PELV W EXAMINATION: CT angiography of the chest, CT of the abdomen and pelvis. TECHNIQUE: Contrast enhanced thin section helical images were obtained through the chest, abdomen and pelvis with intravenous contrast timed for the optimal opacification of the arterial structures of the chest per CTA protocol. Post-processing, reconstructions and interpretation of angiographic images of the vessels was performed. 3D MIP reconstructions were performed and reviewed. All CT scans use one or more of the following dose optimizing techniques: automated exposure control, MA and/or KvP adjustment based on patient size and exam type or iterative reconstruction. HISTORY: Abdominal and back pain. COMPARISON: 02/22/2023. FINDINGS: Vascular: There is no filling defect within the pulmonary arteries. There are vascular calcifications of the aorta and coronary vessels without aneurysm. Thyroid: The thyroid is normal. Mediastinum: Heart size is normal without significant pericardial effusion. No suspicious lymphadenopathy. Lungs and airways: The lungs are clear without consolidation, pleural effusion or pneumothorax. There are background emphysematous changes of the lungs. The airways are normal. Solid organs: The liver is normal without focal lesion. The gallbladder is surgically absent. There is no biliary ductal dilation. There is mild peripancreatic inflammatory stranding. No peripancreatic fluid collection or evidence of necrosis. Spleen is normal. Adrenal glands are normal. The kidneys are normal without hydronephrosis. Bowel: The stomach and small bowel are normal without obstruction. The colon is normal. There is no secondary sign of acute appendicitis. Peritoneum: There is no intraperitoneal free fluid or free air. No suspicious lymphadenopathy. Vasculature: Calcification of the aorta without aneurysm. Musculoskeletal: Multilevel surgical and degenerative changes of the spine. Pelvis: The prostate gland is normal. The urinary bladder is normal. IMPRESSION: 1. No finding of pulmonary embolus or other acute abnormality in the chest. 2. Mild peripancreatic inflammatory stranding which can be seen with acute pancreatitis in the appropriate clinical setting. Dictated on workstation # [id number] Dict: 03/22/23 1822 Trans: 03/22/23 1831 [facility] [id number] Interpreted by: TAMMY OLMSTEAD DO Electronically signed by: Kathryntic Imaging: CT Plain Films/CT/US/NM/MRI: c-spine, head Comments [facility] [employer] [place] [place] NAME: LUZ ELENA CLADWELL REC#: [id number] PT STATUS: REG ER : 1955 PHYSICIAN: NY CHEUNG APRN ADMIT DATE: 03/22/23/ER Draft Date of Exam:03/22/23 CT HEAD/CERVICAL SPINE WO EXAMINATION: CT head and CT cervical spine without contrast. TECHNIQUE: Multiple contiguous axial images were obtained through the brain and cervical spine without the use of intravenous contrast. Sagittal and coronal reformations through the cervical spine were then performed. All CT scans use one or more of the following dose optimizing techniques: automated exposure control, MA and/or KvP adjustment based on patient size and exam type or iterative reconstruction. HISTORY: Head and neck pain. COMPARISON: 02/22/2023. FINDINGS: HEAD: Mild diffuse cerebral volume loss with proportional enlargement of the ventricles and sulci. Mild hypodensities throughout the supratentorial white matter of both cerebral hemispheres. No acute intracranial hemorrhage or abnormal extra-axial fluid collection is present. No hyperdense vessel. The calvarium is intact. The mastoid air cells are clear. The visualized paranasal sinuses are clear. The orbits are normal. C-SPINE: Surgical changes from multilevel cervical spinal fusion. Vertebral body heights and alignment are otherwise normal. No acute fracture, dislocation or destructive osseous process. No significant facet hypertrophy. No significant central canal or neuroforaminal stenosis. The paraspinous soft tissues are normal. The visualized thyroid gland is normal. Emphysematous changes of the lung apices. IMPRESSION: 1. No acute intracranial abnormality. Chronic microangiopathy and volume loss. 2. Degenerative changes of the cervical spine without acute osseous abnormality. Dictated on workstation # [id number] Dict: 03/22/23 1817 Trans: 03/22/23 1822 [facility] [phone] Interpreted by: TAMMY LOMSTEAD DO Electronically signed by: Departure Communication (Admissions) Time/Spoke to Admitting Phy: 18:49 Dr. Michelle, [facility] resident, see progress note. Impression Primary Impression: Acute alcoholic pancreatitis Qualified Codes: K85.20 - Alcohol induced acute pancreatitis without necrosis or infection Additional Impression: Hypokalemia Disposition: ADMITTED INPATIENT Condition: Stable Admissions Decision to Admit Reason: Admit from ER (General) Decision to Admit/Date: Mar 22, 2023 Time/Decision to Admit Time: 18:49 Departure-Patient Inst. Referrals: [facility] (PCP/Family) Primary Care Physician NY CHEUNG APRN Mar 22, 2023 17:51
[2023-03-22 17:56] LABS: BASOPHILS % (AUTO) 0 % (0-10); HEMOGLOBIN 14.9 g/dL (13.3-17.7)
[2023-03-22 17:57] LABS: EOSINOPHILS % (AUTO) 1 % (0-10); HEMATOCRIT 44 % (40-54); LYMPHOCYTES % (AUTO) 21 % (12-44); MEAN CORPUSCULAR HEMOGLOBIN 34 pg (25-34); MEAN CORPUSCULAR HGB CONC 34 g/dL (32-36); MEAN CORPUSCULAR VOLUME 101 fL (80-99); MEAN PLATELET VOLUME 8.8 fL (9.0-12.2); MONOCYTES # (AUTO) 0.7 10^3/uL (0.0-1.0); MONOCYTES % (AUTO) 15 % (0-12); NEUTROPHILS # (AUTO) 2.9 10^3/uL (1.8-7.8); NEUTROPHILS % (AUTO) 63 % (42-75); PLATELET COUNT 125 10^3/uL (130-400); WHITE BLOOD COUNT 4.6 10^3/uL (4.3-11.0)
[2023-03-22] MEDS ORDERED: NS 100 ML (IVPB) BAG IV ONE (18:00)
[2023-03-22] MEDS ORDERED: HOLD METFORMIN - RECEIVED CONTRAST 20 ML VIAL IV SCH (18:00)
[2023-03-22] MEDS ORDERED: IOHEXOL 350 MG/ML 100 ML (OMNIPAQUE 350) VIAL IV ONE (18:00)
--- NOTE | 2023-03-22 18:08 | Diagnostic Imaging Report ---
EXAMINATION: Chest 1 view. HISTORY: Chest pain. COMPARISON: 02/22/2023. FINDINGS: Heart size and pulmonary vasculature are normal. There are patchy interstitial opacities within the mid and lower lungs, right greater than left. No pleural effusion or pneumothorax. Surgical changes of the spine. IMPRESSION: Interstitial opacities within the mid and lower lungs, right greater than left. Findings can be seen with pulmonary edema, pneumonia or atelectasis. Dictated by: Dictated on workstation # [id number]
[2023-03-22 18:11] LABS: ALBUMIN 3.1 GM/DL (3.2-4.5)
[2023-03-22 18:12] LABS: CHLORIDE 101 MMOL/L (98-107); POTASSIUM 2.6 MMOL/L (3.6-5.0); SODIUM 139 MMOL/L (135-145)
[2023-03-22 18:13] LABS: CALCIUM 8.2 MG/DL (8.5-10.1)
[2023-03-22 18:14] LABS: GLUCOSE 106 MG/DL (70-105)
[2023-03-22 18:15] LABS: CARBON DIOXIDE 23 MMOL/L (21-32)
[2023-03-22 18:16] LABS: BILIRUBIN,TOTAL 0.5 MG/DL (0.1-1.0)
[2023-03-22 18:17] LABS: ALKALINE PHOSPHATASE 108 U/L (40-136)
[2023-03-22 18:18] LABS: CREATININE SERUM 0.73 MG/DL (0.60-1.30); GFR ESTIMATED 99
[2023-03-22 18:19] LABS: BUN/CREATININE RATIO 12
[2023-03-22 18:20] LABS: PROTHROMBIN TIME PATIENT 13.4 SEC (12.2-14.7)
[2023-03-22 18:21] LABS: ALANINE AMINOTRANSFERASE 22 U/L (0-55); MAGNESIUM 1.9 MG/DL (1.6-2.4)
[2023-03-22 18:22] LABS: LIPASE 367 U/L (8-78)
--- NOTE | 2023-03-22 18:23 | Diagnostic Imaging Report ---
EXAMINATION: CT head and CT cervical spine without contrast. TECHNIQUE: Multiple contiguous axial images were obtained through the brain and cervical spine without the use of intravenous contrast. Sagittal and coronal reformations through the cervical spine were then performed. All CT scans use one or more of the following dose optimizing techniques: automated exposure control, MA and/or KvP adjustment based on patient size and exam type or iterative reconstruction. HISTORY: Head and neck pain. COMPARISON: 02/22/2023. FINDINGS: HEAD: Mild diffuse cerebral volume loss with proportional enlargement of the ventricles and sulci. Mild hypodensities throughout the supratentorial white matter of both cerebral hemispheres. No acute intracranial hemorrhage or abnormal extra-axial fluid collection is present. No hyperdense vessel. The calvarium is intact. The mastoid air cells are clear. The visualized paranasal sinuses are clear. The orbits are normal. C-SPINE: Surgical changes from multilevel cervical spinal fusion. Vertebral body heights and alignment are otherwise normal. No acute fracture, dislocation or destructive osseous process. No significant facet hypertrophy. No significant central canal or neuroforaminal stenosis. The paraspinous soft tissues are normal. The visualized thyroid gland is normal. Emphysematous changes of the lung apices. IMPRESSION: 1. No acute intracranial abnormality. Chronic microangiopathy and volume loss. 2. Degenerative changes of the cervical spine without acute osseous abnormality. Dictated by: Dictated on workstation # [id number]
[2023-03-22 18:30] LABS: ACETAMINOPHEN < 10 UG/ML (10-30); SALICYLATE < 5.0 MG/DL (5.0-20.0)
--- NOTE | 2023-03-22 18:32 | Diagnostic Imaging Report ---
EXAMINATION: CT angiography of the chest, CT of the abdomen and pelvis. TECHNIQUE: Contrast enhanced thin section helical images were obtained through the chest, abdomen and pelvis with intravenous contrast timed for the optimal opacification of the arterial structures of the chest per CTA protocol. Post-processing, reconstructions and interpretation of angiographic images of the vessels was performed. 3D MIP reconstructions were performed and reviewed. All CT scans use one or more of the following dose optimizing techniques: automated exposure control, MA and/or KvP adjustment based on patient size and exam type or iterative reconstruction. HISTORY: Abdominal and back pain. COMPARISON: 02/22/2023. FINDINGS: Vascular: There is no filling defect within the pulmonary arteries. There are vascular calcifications of the aorta and coronary vessels without aneurysm. Thyroid: The thyroid is normal. Mediastinum: Heart size is normal without significant pericardial effusion. No suspicious lymphadenopathy. Lungs and airways: The lungs are clear without consolidation, pleural effusion or pneumothorax. There are background emphysematous changes of the lungs. The airways are normal. Solid organs: The liver is normal without focal lesion. The gallbladder is surgically absent. There is no biliary ductal dilation. There is mild peripancreatic inflammatory stranding. No peripancreatic fluid collection or evidence of necrosis. Spleen is normal. Adrenal glands are normal. The kidneys are normal without hydronephrosis. Bowel: The stomach and small bowel are normal without obstruction. The colon is normal. There is no secondary sign of acute appendicitis. Peritoneum: There is no intraperitoneal free fluid or free air. No suspicious lymphadenopathy. Vasculature: Calcification of the aorta without aneurysm. Musculoskeletal: Multilevel surgical and degenerative changes of the spine. Pelvis: The prostate gland is normal. The urinary bladder is normal. IMPRESSION: 1. No finding of pulmonary embolus or other acute abnormality in the chest. 2. Mild peripancreatic inflammatory stranding which can be seen with acute pancreatitis in the appropriate clinical setting. Dictated by: Dictated on workstation # [id number]
[2023-03-22] MEDS ORDERED: POTASSIUM CHLORIDE 20 MEQ TABLET PO ONE (18:45)
[2023-03-22] MEDS ORDERED: fentaNYL INJECTION 100 MCG/2 ML VIAL IVP ONE (19:00)
--- NOTE | 2023-03-22 19:46 | History & Physical-Hospitalist ---
VELMA PALACIOS MD 03/22/231945: History of Present Illness HPI/Chief Complaint CC: Abdominal pain Patient presents today after recommendation from [facility] for elevated lipase and evaluation for abdominal pain. Patient states he has been having epigastric abdominal pain for 3 months and rated it 8 out of 10 today. It was noted in the outpatient that patient's lipase was elevated and thus it was recommended that he come to the ED for further evaluation. He otherwise denies any nausea, vomiting, episodes similar to this in the past. He did was having some midsternal chest pain that has been going on for 8 months. Denies any dysuria. He denies any past medical history and does not take any medications currently. Patient states that he drinks a quart a pint of alcohol per day and has been doing so for the last 8 months. Last drink was around 7 PM yesterday. He denies any withdrawal symptoms or history of alcoholic related seizures. Patient smokes 1 pack/day for 45 years. Denies any drug use. Source: patient Exam Limitations: no limitations Date Seen 03/22/23 Time Seen by a Provider: 07:15 Attending Physician [facility] PCP Admitting Physician: Dr. Brittnee Garcia Attending Physician: Dr. Brittnee Garcia Referring Physician Date of Admission 03/22/2023 Home Medications & Allergies Home Medications Reviewed patient Home Medication Reconciliation performed by pharmacy medication reconciliations computed tomography technician and/or nursing. Patients Allergies have been reviewed. Allergies Allergies Coded Allergies ibuprofen (Verified Adverse Reaction, Unknown, Hypertension, pt has rec ASA in the past, 11/05/21) HYPERTENSION tramadol (Verified Adverse Reaction, Unknown, VOMIT, 10/03/18) Past Aaigovj-Pywhsi-Rxyecr Hx Patient Social History Tobacco Use?: Yes Tobacco type used: Cigarettes Smoking Status: Current Everyday Smoker Use of E-Cig and/or Vaping dev: No Substance use?: No Alcohol Use?: Yes Alcohol type: Hard Liquor Alcohol Frequency: Daily Pt feels they are or have been: No Immunizations Up To Date Date of Influenza Vaccine: Jun 05, 2020 First/Initial COVID19 Vaccinat: 09/2021 Second COVID19 Vaccination Jl: 10/2021 Tetanus Booster (TDap): Less Than 5 Years Hepatitis A: No Hepatitis B: No PED Vaccines UTD: Yes Date of Pneumonia Vaccine: Jun 05, 2020 Seasonal Allergies Seasonal Allergies: No Current Status Advance Directives: No Communicates: Verbally Primary Language: Indonesian Preferred Spoken Language: Indonesian Is interpretation needed?: No Past Medical History Surgeries: Appendectomy, Ear Surgery, Gallbladder, Orthopedic Chronic Bronchitis Currently Using CPAP: No Currently Using BIPAP: No High Cholesterol, Hypertension TIA Sexually Transmitted Disease: No HIV/AIDS: No Gastroesophageal Reflux Degenerate Disk Disease, Arthritis, Chronic Back Pain Dysphagia, Chronic Ear Infection Hearing Impairment: Hard of Hearing Skin Did You Recieve Any Treatments: Yes What Type of Treatment Did You: Surgical Intervention Anxiety, Suicide Attempts, Depression Blood Disorders: No Adverse Reaction/Blood Tranf: No (N/A) Family Medical History Cancer 03 FATHER (PROSTATE) 03 MOTHER (BREAST CA ) 09 BROTHER (THROAT/PANCREATIC) 09 SISTER (LIVER) DEAFNESS 03 FATHER 09 BROTHER Family history: Breast disease 03 MOTHER (BREAST CA) History of - respiratory disease Prostate cancer 03 FATHER Stroke 03 MOTHER Visual impairment No Pertinent Family Hx LONG HISTORY OF EXTREME NON-COMPLIANCE IN ALL ASPECTS OF CARE SOCIAL HISTORY: -SMOKES 2-3 PPD -ETOH--ABUSE/DAILY USE--ALSO DRINKS LARGE AMOUNTS OF NYQUIL DAILY; WITH HISTORY OF ALCOHOL WITHDRAWL SYMPTOMS -DRUGS-EXTENSIVE POLYSUBSTANCE ABUSE AND OVERDOSES--ESPECIALLY XANAX/BENZODIAZEPINES AND NARCOTICS/OPIATES; METHAMPHETAMINES -HAS HAD A MULTITUDE OF ACCIDENTS DUE TO SUBSTANCE ABUSE, HISTORY OF GETTING MULTIPLE RX'S FROM MULTIPROVIDERS USING MULTIPLE PHARMACIES; -HAS BEEN EVICTED FROM MULTIPLE REHAB /SUBSTANCE ABUSE TREATMENT FACILITIES, INCLUDING [facility], FOR EXTREME NON-COMPLIANCE. 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 % Review of Systems Constitutional: No dizziness, No fever EENTM: No blurred vision, No nose congestion Respiratory: No cough, No dyspnea on exertion, No short of breath, No wheezing Cardiovascular: No chest pain, No edema, No palpitations Gastrointestinal: abdominal pain (Epigastric); No constipation, No diarrhea; heartburn; No nausea, No vomiting Genitourinary: No dysuria Musculoskeletal: back pain Skin: No rash Psychiatric/Neurological: Denies Headache, Denies Numbness Physical Exam Physical Exam Vital Signs Vital Signs - First Documented 03/22/23 17:27 Temp 36.5 Pulse 77 Resp 18 B/P (MAP) 117/83 (94) Pulse Ox 95 O2 Delivery Room Air Capillary Refill : Less Than 3 Seconds Height, Weight, BMI Height: 5'6.00" Weight: 130lbs. 2.0oz. 59.063818gq; 22.00 BMI Method:Stated General Appearance: No Apparent Distress HEENT: PERRL/EOMI, Pharynx Normal, Moist Mucous Membranes Neck: Full Range of Motion Respiratory: Chest Non Tender, Lungs Clear, Normal Breath Sounds, No Accessory Muscle Use, No Respiratory Distress Cardiovascular: Regular Rate, Rhythm, No Edema, No Murmur Gastrointestinal: Normal Bowel Sounds, Soft, Tenderness (Epigastric) Neurologic/Psychiatric: Alert, Oriented x3 Skin: Warm/Dry Results Results/Procedures Labs Laboratory Tests 03/22/23 17:48 Patient resulted labs reviewed. Imaging: Reviewed Imaging Films, Reviewed Imaging Report Imaging Chest x-ray: IMPRESSION: Interstitial opacities within the mid and lower lungs, right greater than left. Findings can be seen with pulmonary edema, pneumonia or atelectasis. Head/cervical spine CT: IMPRESSION: 1. No acute intracranial abnormality. Chronic microangiopathy and volume loss. 2. Degenerative changes of the cervical spine without acute osseous abnormality. CTA chest/abdomen/pelvis: IMPRESSION: 1. No finding of pulmonary embolus or other acute abnormality in the chest. 2. Mild peripancreatic inflammatory stranding which can be seen with acute pancreatitis in the appropriate clinical setting. Assessment/Plan Admission Diagnosis Acute alcoholic pancreatitis Admission Status: Inpatient Order (span 2 midnights) Reason for Inpatient Admission: Long-term fluid resuscitation and pain management needed, ability to demonstrate oral intake tolerance Assessment and Plan 68-year-old male presenting with epigastric abdominal pain consistent with acute alcoholic pancreatitis. Diagnosis/Problems Diagnosis/Problems (1) Acute alcoholic pancreatitis Status: Acute Assessment & Plan: CT scan, elevated lipase and physical exam findings consistent with pancreatitis Alcohol level elevated on admission Likely secondary to alcohol use No nausea or vomiting at this time Will do clear liquid diet as tolerated Continue fluid resuscitation with LR Antiemetics on board if needed Pain management with oral nonopioid medications as well as morphine IV on board Qualifiers: Acute pancreatitis complication: unspecified Qualified Codes: K85.20 - Alcohol induced acute pancreatitis without necrosis or infection (2) Hypokalemia Status: Acute Assessment & Plan: Likely secondary to alcohol use Status post 40 mEq p.o. potassium in the ED Follow hypokalemia replacement protocol (3) Alcoholism Status: Chronic Assessment & Plan: Last drink was 7 PM yesterday Will have CIWA monitoring on board Patient will be given thiamine and folic acid (4) Homeless Status: Acute Assessment & Plan: Consulting social work for assistance with safe discharge plan BRITTNEE GARCIA DO 03/23/232133: Past Gfflfbi-Esomnc-Wchohr Hx Patient Social History Marrital Status: single Employed/Student: retired Smoking Status: Current Everyday Smoker Family Medical History Cancer 03 FATHER (PROSTATE) 03 MOTHER (BREAST CA ) 09 BROTHER (THROAT/PANCREATIC) 09 SISTER (LIVER) DEAFNESS 03 FATHER 09 BROTHER Family history: Breast disease 03 MOTHER (BREAST CA) History of - respiratory disease Prostate cancer 03 FATHER Stroke 03 MOTHER Visual impairment Review of Systems Constitutional: see HPI Assessment/Plan Admission Diagnosis I performed history and physical and conferred with resident and agree with medical management Admission Status: Inpatient Order (span 2 midnights) Reason for Inpatient Admission: Alcoholic pancreatitis VELMA PALACIOS MD Mar 22, 2023 19:46 BRITTNEE GARCIA DO Mar 23, 2023 21:34
[2023-03-22 20:20] VITALS: BP 148/57
--- OUTSIDE RECORDS SUMMARY | 2023-03-22 20:24 | XMS REPORT ---
Author Author [facility] Address Unknown Phone Unavailable Care Team Providers Care Roustabout Head Name Role Phone ANJEL AMADO Unavailable PROBLEMS ALLERGIES ENCOUNTERS from 1955 to 2023-02-20 IMMUNIZATIONS SOCIAL HISTORY No smoking Hx information available REASON FOR REFERRAL No Information VITAL SIGNS MEDICATIONS PROCEDURES No Information RESULTS No Results REASON FOR VISIT MEDICAL (GENERAL) HISTORY Goals Section Health Concerns MEDICAL EQUIPMENT No Information MENTAL STATUS FUNCTIONAL STATUS ASSESSMENTS No Information PLAN OF TREATMENT Insurance Providers
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
--- OUTSIDE RECORDS SUMMARY | 2023-03-22 20:24 | XMS REPORT | Clinical Summary ---
Author Author [facility] Organization [facility] Address Unknown Phone Unavailable Care Team Providers Care Gun Tester Name Role Phone Unverified, Unverified Md PCP Unavailable Source Comments Some departments are not documenting in the electronic medical record. If you d o not see the information that you expected, contact Release of Information in [facility] Information Management department at [phone] for further assistan ce in locating additional records.[facility] Allergies Not on File Medications Not on file Active Problems Not on file Social History Date Tobacco Use Types Packs/Day Years Used Smoking Tobacco: Never Assessed Date Recorded Sex and Gender Information Value Sex Assigned at Not on file Gender Identity Not on file Sexual Orientation Not on file Last Filed Vital Signs Not on file Plan of Treatment Health Maintenance Due Date Last Done Comments COVID-19 VACCINE (#1) 1955 DTAP/TDAP VACCINES (1 - 1973 Tdap) HEPATITIS C SCREENING 1973 PHYSICAL (COMPREHENSIVE) 1973 EXAM COLORECTAL CANCER 02/14/2000 SCREENING SHINGLES RECOMBINANT 2005 VACCINE (1 of 2) PNEUMOCOCCAL VACCINE 65+ 02/14/2020 YRS (1 - PCV) DEPRESSION SCREENING 08/17/2022 INFLUENZA VACCINE (#1) 2023 Results Not on filefrom Last 3 Months Care Teams Start Date End Date Gun Tester Relationship Specialty 02/27/12 Unverified, Unverified, PCP - General
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
[2023-03-22] MEDS ORDERED: NS IV 500 ML 500 ML IV PRN (20:30)
[2023-03-22] MEDS ORDERED: BISACODYL 10 MG SUPPOSITORY PR PRN (20:30)
[2023-03-22] MEDS ORDERED: CALCIUM CARBONATE 500 MG CHEW TABLET PO PRN (20:30)
[2023-03-22] MEDS ORDERED: polyethylene glycoL POWDER 17 GM (MIRALAX) PACK PO PRN (20:30)
[2023-03-22] MEDS ORDERED: LORazepam 1 MG TABLET PO PRN (20:30)
[2023-03-22] MEDS ORDERED: ANTACID SUSP 30 ML UDC (MYLANTA) PO PRN (20:30)
[2023-03-22] MEDS ORDERED: NALOXONE 0.4 MG/ML 1 ML (NARCAN) VIAL IV PRN (20:30)
[2023-03-22] MEDS ORDERED: ONDANSETRON 4 MG (ZOFRAN) ORAL DISSOLVE TAB PO PRN (20:30)
[2023-03-22] MEDS ORDERED: ONDANSETRON 4 MG/2 ML (SDV) Z0FRAN IV PRN (20:30)
[2023-03-22] MEDS ORDERED: LACTATED RINGERS 1,000 ML IV ONE (20:34)
[2023-03-22] MEDS: LACTATED RINGERS 1,000 ML IV SCH (20:36)
[2023-03-22] MEDS ORDERED: RT-ALBUTEROL SULF 2.5 MG/3 ML PRE-MIX VIAL INH SCH (21:00)
[2023-03-22 21:07] LABS: BACTERIA,URINE TRACE /HPF; BILIRUBIN,URINE NEGATIVE (NEGATIVE); CLARITY,URINE CLEAR; COLOR,URINE YELLOW; GLUCOSE, URINE (UA) NEGATIVE (NEGATIVE); KETONES,URINE NEGATIVE (NEGATIVE); LEUKOCYTE ESTERASE ,URINE NEGATIVE (NEGATIVE); NITRITE,URINE NEGATIVE (NEGATIVE); PROTEIN,URINE TRACE (NEGATIVE)
[2023-03-22 21:23] LABS: AMPHETAMINE SCREEN, URINE NEGATIVE (NEGATIVE); BARBITURATE SCREEN URINE NEGATIVE (NEGATIVE); BENZODIAZEPINES SCREEN URINE NEGATIVE (NEGATIVE); CANNABINOID SCREEN, URINE NEGATIVE (NEGATIVE); COCAINE SCREEN URINE NEGATIVE (NEGATIVE); METHADONE STAT NEGATIVE (NEGATIVE); OPIATE SCREEN URINE POSITIVE (NEGATIVE); OXYCODONE STAT NEGATIVE (NEGATIVE); PROPOXYPHENE STAT NEGATIVE (NEGATIVE); TRICYCLIC ANTIDEPRESSANTS SCRE NEGATIVE (NEGATIVE)
[2023-03-22] MEDS: ENOXAPARIN 40 MG/0.4 ML SYRINGE SC SCH ×2 (21:43→21:46)
[2023-03-22 22:06] VITALS: BP 148/57
[2023-03-22] MEDS ORDERED: RT-ALBUTEROL SULF 2.5 MG/3 ML PRE-MIX VIAL INH PRN (22:15)
[2023-03-22 23:49] VITALS: BP 163/92
[2023-03-22] MEDS: morphine INJ 4 MG/ML 1 ML (VIAL/SYRINGE) IV PRN (23:51)
[2023-03-23] VITALS (7 sets, daily range): BP systolic 125–153; BP diastolic 60–92
[2023-03-23] MEDS ORDERED: RT-ALBUTEROL SULF 2.5 MG/3 ML PRE-MIX VIAL INH SCH (01:00)
[2023-03-23] MEDS: morphine INJ 4 MG/ML 1 ML (VIAL/SYRINGE) IV PRN ×5 (04:18→21:17)
[2023-03-23 05:37] LABS: HEMOGLOBIN 14.7 g/dL (13.3-17.7); MEAN PLATELET VOLUME 9.3 fL (9.0-12.2); WHITE BLOOD COUNT 3.6 10^3/uL (4.3-11.0)
[2023-03-23 05:46] LABS: ALBUMIN 2.8 GM/DL (3.2-4.5)
[2023-03-23 05:48] LABS: CALCIUM 8.1 MG/DL (8.5-10.1)
[2023-03-23 05:49] LABS: TOTAL PROTEIN 5.6 GM/DL (6.4-8.2)
[2023-03-23 05:51] LABS: BILIRUBIN,TOTAL 0.9 MG/DL (0.1-1.0)
[2023-03-23 05:52] LABS: PHOSPHORUS 2.3 MG/DL (2.3-4.7)
[2023-03-23 05:53] LABS: CREATININE SERUM 0.71 MG/DL (0.60-1.30)
[2023-03-23 05:57] LABS: MAGNESIUM 1.7 MG/DL (1.6-2.4)
[2023-03-23] MEDS: POTASSIUM CHLORIDE 20 MEQ TABLET PO SCH (06:00)
[2023-03-23] MEDS: MAGNESIUM 1 GM/100 ML IVPB 100 ML IV SCH ×5 (06:00→09:59)
[2023-03-23] MEDS: POTASSIUM CL 10MEQ/50ML IVPB 50 ML IV SCH ×9 (06:01→13:52)
[2023-03-23] MEDS: MULTIVIT W/MINERALS TAB (THERAGRAN M) PO SCH (06:23)
[2023-03-23] MEDS: THIAMINE 100 MG (VITAMIN B-1) TAB PO SCH (06:23)
[2023-03-23] MEDS: FOLIC ACID 1 MG TAB PO SCH (08:56)
[2023-03-23] MEDS: ASPIRIN enteric coated 81MG TABLET PO SCH (08:56)
--- NOTE | 2023-03-23 12:47 | Consultation - Surgery ---
STEFANI FOX 03/23/23 1247: History of Present Illness History of Present Illness Patient Consulted On(shobha/time) 03/23/23 12:41 Time Seen by Provider: 12:42 History of Present Illness 68 year olf male px to the clinic for abdominal pain that start 1 week ago. It is a sharp pain with no radiation. He states it is localized in his umbilicus area. He states he came to the hospital [facility] from [facility] due to the abdominal problems. The pain has been intermittent. He feels like he could pass out from the pain. He rates it a 9/10 currently. He denies having pain like this before or any similar admissions. The only thing that aggravates this is touching/applying pressure to his belly area. The only thing alleviating his pain is the pain medications he is currently receiving in the hospital. PT states that he got his appendix removed 25+ years ago and thinks it was done at [place]. He reports that his gallbladder was removed 5-10 years ago at [place]. He believes he has an US/xrays of his abdomen during his GB surgery but denies any imaging of his abdomen since. Allergies and Home Medications Allergies Coded Allergies: ibuprofen (Verified Adverse Reaction, Unknown, Hypertension, pt has rec ASA in the past, 11/05/21) HYPERTENSION tramadol (Verified Adverse Reaction, Unknown, VOMIT, 10/03/18) Patient Home Medication List Home Medication List Reviewed: Yes (pt denies home medications) No Active Prescriptions or Reported Meds Past Ftpayjz-Kfdpcr-Bcdjzk Hx Patient Social History Drug of Choice: denies Smoking Status: Former Smoker (pt states he has not been smoking since in the abdominal pain, but has smoked in the past) Type Used: Cigarettes 2nd Hand Smoke Exposure: Yes Recent Hopitalizations: No Alcohol Use?: Yes (drinks half of a half pint of vodka daily for the past 3 months) Have you traveled recently?: No Immunizations Up To Date Tetanus Booster (TDap): Unknown Date of Pneumonia Vaccine: Jun 05, 2020 Date of Influenza Vaccine: Jun 05, 2020 Seasonal Allergies Seasonal Allergies: No Surgeries History of Surgeries: Yes Surgeries: Appendectomy (25+ years ago), Gallbladder (5-10 years ago), Orthopedic Cardiovascular History of Cardiac Disorders: Yes Cardiac Disorders: High Cholesterol, Hypertension Gastrointestinal History of Gastrointestinal Di: Yes (ESOPHAGEAL STRICTURES/DILATIONS) Gastrointestinal Disorders: Gastroesophageal Reflux Musculoskeletal History of Musculoskeletal Dis: Yes Musculoskeletal Disorders: Degenerate Disk Disease, Arthritis, Chronic Back Pain Endocrine History of Endocrine Disorders: No HEENT Hearing Impairment: Hard of Hearing Cancer History of Cancer: Yes Cancer: Skin Blood Transfusions Adverse Reaction to a Blood Tr: No Family Medical History Significant Family History: Cancer (mother- breast; father - prostate), Stroke (mother) Family Medial History: Cancer 03 FATHER (PROSTATE) 03 MOTHER (BREAST CA ) 09 BROTHER (THROAT/PANCREATIC) 09 SISTER (LIVER) DEAFNESS 03 FATHER 09 BROTHER Family history: Breast disease 03 MOTHER (BREAST CA) History of - respiratory disease Prostate cancer 03 FATHER Stroke 03 MOTHER Visual impairment Review of Systems-General Constitutional: malaise, weakness EENTM: hearing loss Respiratory: No cough Cardiovascular: No chest pain Gastrointestinal: RUQ, LUQ, RLQ, LLQ, abdominal pain; No jaundice, No nausea, No vomiting Psychiatric/Neurological: Tremors Physical Exam-General Problems Physical Exam Vital Signs Vital Signs - First Documented 03/22/23 03/22/23 03/23/23 17:27 22:06 04:22 Temp 36.5 Pulse 77 Resp 18 B/P (MAP) 117/83 (94) Pulse Ox 95 O2 Delivery Room Air O2 Flow Rate 2.00 FiO2 21 Capillary Refill : Less Than 3 Seconds General Appearance: moderate distress Eyes: Bilateral Eye PERRL, Bilateral Eye EOMI HEENT: No scleral icterus (R), No scleral icterus (L), No photophobia Respiratory: chest non-tender, lungs clear, normal breath sounds, no respiratory distress Cardiovascular: regular rate, rhythm, no murmur Peripheral Pulses: 2+ Dorsalis Pedis (R), 2+ Left Dors-Pedis (L), 2+ Radial Pulses (R), 2+ Radial Pulses (L) Gastrointestinal: abnormal bowel sounds (hyper active in all 4 quadrants), distended, guarding, rebound, tenderness, other (no Millan Arredondo's sign. no Geovanni's sign.) Neurologic/Psychiatric: alert, oriented x 3 Data Review Labs Laboratory Tests 03/22/23 17:48: White Blood Count 4.6, Red Blood Count 4.35, Hemoglobin 14.9, Hematocrit 44, Mean Corpuscular Volume 101H, Mean Corpuscular Hemoglobin 34, Mean Corpuscular Hemoglobin Concent 34, Red Cell Distribution Width 13.9, Platelet Count 125L, Mean Platelet Volume 8.8L, Immature Granulocyte % (Auto) 0, Neutrophils (%) (Auto) 63, Lymphocytes (%) (Auto) 21, Monocytes (%) (Auto) 15H, Eosinophils (%) (Auto) 1, Basophils (%) (Auto) 0, Neutrophils # (Auto) 2.9, Lymphocytes # (Auto) 1.0, Monocytes # (Auto) 0.7, Eosinophils # (Auto) 0.0, Basophils # (Auto) 0.0, Immature Granulocyte # (Auto) 0.0, Percent Immature Platelet Fraction 2.4, Prothrombin Time 13.4, INR Comment 1.0, Activated Partial Thromboplast Time 34, Sodium Level 139, Potassium Level 2.6L, Chloride Level 101, Carbon Dioxide Level 23, Anion Gap 15H, Blood Urea Nitrogen 9, Creatinine 0.73, Estimat Glomerular Filtration Rate 99, BUN/Creatinine Ratio 12, Glucose Level 106H, Calcium Level 8.2L, Corrected Calcium 8.9, Magnesium Level 1.9, Total Bilirubin 0.5, Aspartate Amino Transf (AST/SGOT) 30, Alanine Aminotransferase (ALT/SGPT) 22, Alkaline Phosphatase 108, Troponin I < 0.028, Total Protein 6.0L, Albumin 3.1L, Lipase 367H 03/22/23 18:03: Salicylates Level < 5.0L, Acetaminophen Level < 10L, Serum Alcohol 70H 03/22/23 20:46: Urine Color YELLOW, Urine Clarity CLEAR, Urine pH 6.0, Urine Specific [place] 1.010L, Urine Protein TRACEH, Urine Glucose (UA) NEGATIVE, Urine Ketones NEGATIVE, Urine Nitrite NEGATIVE, Urine Bilirubin NEGATIVE, Urine Urobilinogen 0.2, Urine Leukocyte Esterase NEGATIVE, Urine RBC (Auto) NEGATIVE, Urine RBC NONE, Urine WBC 2-5, Urine Squamous Epithelial Cells NONE, Urine Crystals NONE, Urine Bacteria TRACE, Urine Casts NONE, Urine Mucus NEGATIVE, Urine Culture Indicated NO, Urine Opiates Screen POSITIVEH, Urine Oxycodone Screen NEGATIVE, Urine Methadone Screen NEGATIVE, Urine Propoxyphene Screen NEGATIVE, Urine Barbiturates Screen NEGATIVE, Ur Tricyclic Antidepressants Screen NEGATIVE, Urine Phencyclidine Screen NEGATIVE, Urine Amphetamines Screen NEGATIVE, Urine Methamphetamines Screen NEGATIVE, Urine Benzodiazepines Screen NEGATIVE, Urine Cocaine Screen NEGATIVE, Urine Cannabinoids Screen NEGATIVE 03/23/23 05:06: White Blood Count 3.6L, Red Blood Count 4.29L, Hemoglobin 14.7, Hematocrit 44, Mean Corpuscular Volume 103H, Mean Corpuscular Hemoglobin 34, Mean Corpuscular Hemoglobin Concent 33, Red Cell Distribution Width 14.0, Platelet Count 119L, Mean Platelet Volume 9.3, Percent Immature Platelet Fraction 2.8, Sodium Level 140, Potassium Level 3.0L, Chloride Level 103, Carbon Dioxide Level 27, Anion Gap 10, Blood Urea Nitrogen 7, Creatinine 0.71, Estimat Glomerular Filtration Rate 100, BUN/Creatinine Ratio 10, Glucose Level 123H, Calcium Level 8.1L, Corrected Calcium 9.1, Magnesium Level 1.7, Total Bilirubin 0.9, Aspartate Amino Transf (AST/SGOT) 22, Alanine Aminotransferase (ALT/SGPT) 19, Alkaline Phosphatase 104, Total Protein 5.6L, Albumin 2.8L, Lipase 225H, Phosphorus Level 2.[address] ANGIO CHST/ABD/PELV W EXAMINATION: CT angiography of the chest, CT of the abdomen and pelvis. TECHNIQUE: Contrast enhanced thin section helical images were obtained through the chest, abdomen and pelvis with intravenous contrast timed for the optimal opacification of the arterial structures of the chest per CTA protocol. Post-processing, reconstructions and interpretation of angiographic images of the vessels was performed. 3D MIP reconstructions were performed and reviewed. All CT scans use one or more of the following dose optimizing techniques: automated exposure control, MA and/or KvP adjustment based on patient size and exam type or iterative reconstruction. HISTORY: Abdominal and back pain. COMPARISON: 02/22/2023. FINDINGS: Vascular: There is no filling defect within the pulmonary arteries. There are vascular calcifications of the aorta and coronary vessels without aneurysm. Thyroid: The thyroid is normal. Mediastinum: Heart size is normal without significant pericardial effusion. No suspicious lymphadenopathy. Lungs and airways: The lungs are clear without consolidation, pleural effusion or pneumothorax. There are background emphysematous changes of the lungs. The airways are normal. Solid organs: The liver is normal without focal lesion. The gallbladder is surgically absent. There is no biliary ductal dilation. There is mild peripancreatic inflammatory stranding. No peripancreatic fluid collection or evidence of necrosis. Spleen is normal. Adrenal glands are normal. The kidneys are normal without hydronephrosis. Bowel: The stomach and small bowel are normal without obstruction. The colon is normal. There is no secondary sign of acute appendicitis. Peritoneum: There is no intraperitoneal free fluid or free air. No suspicious lymphadenopathy. Vasculature: Calcification of the aorta without aneurysm. Musculoskeletal: Multilevel surgical and degenerative changes of the spine. Pelvis: The prostate gland is normal. The urinary bladder is normal. Assessment/Plan Assessment/Plan Admission Diagonsis Assessment/Plan Assessment; Acute Pancreatitis Hypokalemia Alcoholism Plan; Order a CRP to monitor levels. Will recheck in one week. Continue to monitor potassium, lipase, and BUN. Start Lactated Ringers for pancreatitis. Will discuss MRCP or MRI imaging with surgeon to see if necessary. No food per mouth unless symptoms improve to avoid further complications. JAIME ROSA DO 03/23/23 1500: History of Present Illness History of Present Illness Time Seen by Provider: 14:31 History of Present Illness Surgery asked to consult regarding Pancreatitis. HPI per ED: 68-year-old male was sent to the ER by [facility] for elevated lipase. He presents today with his nephew. He reports he has been having mid upper abdominal pain that radiates straight through to his back for the last couple months, but states has been getting worse. He reports nausea, denies vomiting. Reports intermittent chest pain, last episode of chest pain was 1 hour prior to arrival. He reports intermittent fevers. States he has had 3 episodes of loose stools today. Denies dysuria. Patient is a daily drinker, drinks 1 pint of vodka a day. Patient's nephew states that patient has been falling a lot. Patient denies hitting his head, no obvious signs of head trauma, patient denies any pain elsewhere on his body besides his abdomen. Nephew states that patient is homeless, he found him tonight sleeping behind a building. Patient's nephew states that he had gotten patient into [facility] and rehab, but patient checked himself out a couple months ago. Nephew is concerned that patient is not caring for himself. Patient was unable to list his medical conditions, states he does not take any medications regularly. Patient's nephew states that patient's primary care provider took him off of all of his medication because patient is an alcoholic. Patient states he has not seen his primary care provider in over 6 months. When I saw pt he stated that he had abdominal pain, but it was better than previously. He ate some clears, but his tray is still mostly full; it sounds like he might not have eat because of pain. Pain controlled with meds. Allergies and Home Medications Allergies Coded Allergies: ibuprofen (Verified Adverse Reaction, Unknown, Hypertension, pt has rec ASA in the past, 11/05/21) HYPERTENSION tramadol (Verified Adverse Reaction, Unknown, VOMIT, 10/03/18) Patient Home Medication List Home Medication List Reviewed: Yes (pt denies home medications) No Active Prescriptions or Reported Meds Past Ugyhmyx-Fijilx-Gebncx Hx Patient Social History Smoking Status: Former Smoker (pt states he has not been smoking since in the abdominal pain, but has smoked in the past) Alcohol Use?: Yes (drinks half of a half pint of vodka daily for the past 3 months) Surgeries History of Surgeries: Yes Surgeries: Appendectomy (25+ years ago), Gallbladder (5-10 years ago), Orthopedic Respiratory History of Respiratory Disorde: No Cardiovascular History of Cardiac Disorders: Yes Cardiac Disorders: High Cholesterol, Hypertension Neurological History of Neurological Disord: Yes Neurological Disorders: TIA (hx) Gastrointestinal History of Gastrointestinal Di: Yes Gastrointestinal Disorders: Gastroesophageal Reflux, Pancreatitis, Gall Bladder Disease Musculoskeletal History of Musculoskeletal Dis: Yes Musculoskeletal Disorders: Arthritis, Chronic Back Pain Endocrine History of Endocrine Disorders: No HEENT History of HEENT Disorders: Yes Hearing Impairment: Hard of Hearing Cancer History of Cancer: No Blood Transfusions Adverse Reaction to a Blood Tr: No Family Medical History Significant Family History: Cancer (mother- breast; father - prostate), Stroke (mother) Family Medial History: Cancer 03 FATHER (PROSTATE) 03 MOTHER (BREAST CA ) 09 BROTHER (THROAT/PANCREATIC) 09 SISTER (LIVER) DEAFNESS 03 FATHER 09 BROTHER Family history: Breast disease 03 MOTHER (BREAST CA) History of - respiratory disease Prostate cancer 03 FATHER Stroke 03 MOTHER Visual impairment Review of Systems-General Constitutional: malaise, weakness EENTM: hearing loss; No mouth swelling, No epistaxis Respiratory: No cough; dyspnea on exertion, short of breath Cardiovascular: chest pain; No edema, No palpitations Gastrointestinal: RUQ, LUQ, RLQ, LLQ, abdominal pain; No jaundice; loss of appetite, nausea; No vomiting Genitourinary: No dysuria, No frequency, No hematuria Musculoskeletal: back pain, muscle stiffness, muscle cramps Skin: No change in color, No change in hair/nails Psychiatric/Neurological: Tremors Physical Exam-General Problems Physical Exam General Appearance: WD/WN, mild distress Eyes: Bilateral Eye PERRL, Bilateral Eye EOMI HEENT: pharynx normal; No scleral icterus (R), No scleral icterus (L), No photophobia Neck: non-tender, supple Respiratory: chest non-tender, lungs clear, normal breath sounds, no respiratory distress Cardiovascular: regular rate, rhythm, no murmur Gastrointestinal: abnormal bowel sounds (hypo active in all 4 quadrants), distended, guarding, rebound, tenderness, other (no Millan Arredondo's sign. no Geovanni's sign.) Extremities: no pedal edema, no calf tenderness Neurologic/Psychiatric: alert, oriented x 3 Skin: normal color, warm/dry Lymphatic: no adenopathy (neck, axilla or groin) Assessment/Plan Assessment/Plan Assessment/Plan Acute Pancreatitis Hypokalemia Alcoholism IV fluids, NPO if pain persists or gets worse. Monitor labs; Lipase and Potassium. No surgical indications at this time. Will follow along Supervisory-Addendum Brief Verification & Attestation Participated in pt care: history, MDM, physical Personally performed: exam, history, MDM, supervision of care Care discussed with: Medical Student Procedures: n/a Verification and Attestation of Medical Student E/M Service A medical student performed and documented this service. I then reviewed and verified all information documented by the medical student and made modifications to such information, when appropriate. I personally performed a physical exam, medical decision making and then discussed any differences between the notes and made revisions as necessary to create one note. Jaime Rosa , 03/23/23 , 15:23 STEFANI FOX Mar 23, 2023 12:47 JAIME ROSA DO Mar 23, 2023 15:00
--- NOTE | 2023-03-23 13:09 | Progress Note - Hospitalist ---
ARTEMHALLEY 03/23/23 1309: Subjective HPI/CC On Admission Date Seen by Provider: Mar 23, 2023 Time Seen by Provider: 11:30 CC: Abdominal pain Subjective/Events-last exam 68-year-old male presents to the ED with abdominal pain and elevated lipase. Epigastric pain has been happening for past 3 months. Pain is severe and located at episgastric region and ride side of abdomen. Touching his abdomen makes it worse and the pain medications have helped a bit. Review of Systems General: Malaise, Other (Weakness) Gastrointestinal: Abdominal Pain Neurological: Other (Tremors) Objective Exam Vital Signs Vital Signs Date Time Temp Pulse Resp B/P (MAP) Pulse Ox O2 Delivery O2 Flow Rate FiO2 03/23/23 11:27 36.9 77 20 125/60 (81) 94 Room Air 03/23/23 08:00 2.00 03/22/23 22:06 21 Capillary Refill : Less Than 3 Seconds General Appearance: Chronically ill, Mild Distress HEENT: PERRL/EOMI, Normal ENT Inspection, Pharynx Normal, Moist Mucous Membranes Neck: Full Range of Motion, Normal Inspection Respiratory: Chest Non Tender, Lungs Clear, Normal Breath Sounds, No Accessory Muscle Use, No Respiratory Distress Cardiovascular: Regular Rate, Rhythm, No Edema, No Gallop, No JVD, No Murmur, Normal Peripheral Pulses Gastrointestinal: No Pulsatile Mass, Abnormal Bowel Sounds (Hyperactive bowel sounds), Guarding, Tenderness (RLQ, RUQ, and epigastric) Extremity: Normal Capillary Refill, Normal Inspection, Normal Range of Motion, Non Tender Neurologic/Psychiatric: Alert, Oriented x3, No Motor/Sensory Deficits, Normal Mood/Affect Skin: Normal Color, Warm/Dry Results/Procedures Lab Laboratory Tests 03/22/23 17:48 03/23/23 05:06 Patient resulted labs reviewed. Imaging: Reviewed Imaging Films, Reviewed Imaging Report Assessment/Plan Assessment and Plan Assess & Plan/Chief Complaint Assessment: Acute alcoholic pancreatitis Hypokalemia Alcoholism Homeless Presbycusis making communication difficult Plan: Continue lactated ringers Pain management Follow hypokalemia replacement protocol Monitor Surgery consult Critical Care: Critically Ill Patient BRITTNEE KISER DO 03/24/23 0551: Supervisory-Addendum Brief Verification & Attestation Participated in pt care: history, MDM, physical Personally performed: exam, history, MDM, supervision of care Care discussed with: Medical Student Procedures: n/a Results interpretation: Verified all documentation Verification and Attestation of Medical Student E/M Service A medical student performed and documented this service in my presence. I reviewed and verified all information documented by the medical student and made modifications to such information, when appropriate. I personally performed the physical exam and medical decision making. Brittnee Kiser, Mar 24, 2023,05:51 HALLEY MCGILL Mar 23, 2023 13:09 BRITTNEE KISER DO Mar 24, 2023 05:51
[2023-03-23] MEDS: LACTATED RINGERS 1,000 ML IV SCH ×2 (17:06→17:26)
[2023-03-23] MEDS: ENOXAPARIN 40 MG/0.4 ML SYRINGE SC SCH (19:51)
[2023-03-24] MEDS: morphine INJ 4 MG/ML 1 ML (VIAL/SYRINGE) IV PRN ×2 (01:45→06:40)
[2023-03-24] MEDS: LACTATED RINGERS 1,000 ML IV SCH ×3 (01:47→22:32)
[2023-03-24 03:32] VITALS: BP 149/89
[2023-03-24] MEDS: THIAMINE 100 MG (VITAMIN B-1) TAB PO SCH (05:27)
[2023-03-24] MEDS: MULTIVIT W/MINERALS TAB (THERAGRAN M) PO SCH (05:27)
[2023-03-24 06:07] LABS: HEMOGLOBIN 14.8 g/dL (13.3-17.7)
[2023-03-24 06:09] LABS: MEAN PLATELET VOLUME 9.4 fL (9.0-12.2); WHITE BLOOD COUNT 3.9 10^3/uL (4.3-11.0)
[2023-03-24 06:20] LABS: ALBUMIN 2.7 GM/DL (3.2-4.5); POTASSIUM 3.6 MMOL/L (3.6-5.0)
[2023-03-24 06:22] LABS: CALCIUM 7.9 MG/DL (8.5-10.1)
[2023-03-24 06:23] LABS: TOTAL PROTEIN 5.5 GM/DL (6.4-8.2)
[2023-03-24 06:25] LABS: BILIRUBIN,TOTAL 1.1 MG/DL (0.1-1.0)
[2023-03-24 06:26] LABS: CREATININE SERUM 0.62 MG/DL (0.60-1.30)
[2023-03-24] MEDS: POTASSIUM CHLORIDE 20 MEQ TABLET PO SCH (06:35)
[2023-03-24] MEDS: MAGNESIUM 1 GM/100 ML IVPB 100 ML IV SCH (06:35)
[2023-03-24] MEDS: POTASSIUM CL 10MEQ/50ML IVPB 50 ML IV SCH ×4 (06:36→10:06)
[2023-03-24 07:45] VITALS: BP 140/70
--- NOTE | 2023-03-24 08:01 | Progress Note - Surgery ---
STEFANI FOX 03/24/23 0801: Subjective Time Seen by a Provider: 07:56 Subjective/Events-last exam 68 M states that he is feeling a lot better than yesterday. He states that his pain currently is a 0/10. He is able to press on his abdomen with no pain or radiation pain. He states he is very hungry and would like to eat. He ate chicken broth and grape juice last night for dinner. He states that his stomach did not hurt after he ate. He said he slept well. He had some pain throughout the night, intermittently, then around 6:30 am the pain went away. The pain during the night was a sharp sensation in his abdomen, right above his umbilicus. He has not felt this sensation since 6:30 am. Focused Exam Skin: normal color, warm/dry Objective Exam Vital Signs Date Time Temp Pulse Resp B/P (MAP) Pulse Ox O2 Delivery O2 Flow Rate FiO2 03/24/23 03:32 36.4 71 16 149/89 (109) 96 Room Air 2.00 2.00 03/23/23 23:29 36.5 68 16 153/92 (112) 96 Room Air 03/23/23 20:00 Room Air 03/23/23 19:06 37.3 70 17 136/75 (95) 94 Room Air 03/23/23 15:33 36.1 60 17 148/67 (94) 100 Room Air 03/23/23 11:27 36.9 77 20 125/60 (81) 94 Room Air 03/23/23 08:00 97 Room Air 2.00 I & O 03/24/23 07:00 Intake Total 560 ml Output Total 675 ml Balance -115 ml Capillary Refill : Less Than 3 Seconds General Appearance: No Apparent Distress HEENT: PERRL/EOMI Respiratory: Chest Non Tender, Lungs Clear, Normal Breath Sounds, No Respiratory Distress Cardiovascular: Regular Rate, Rhythm, No Murmur Peripheral Pulses: 2+ Dorsalis Pedis (R), 2+ Left Dors-Pedis (L), 2+ Radial Pulses (R), 2+ Radial Pulses (L) Gastrointestinal: No soft; abnormal bowel sounds (hypo active in RUQ and LUQ), distended (RUQ + LUQ mostly); No guarding, No rebound, No tenderness; other (no Millan Arredondo's sign. no [place]'s sign.) Extremity: No Calf Tenderness Neurologic/Psychiatric: Alert, Oriented x3 Results Lab Laboratory Tests 03/24/23 05:36: White Blood Count 3.9L, Red Blood Count 4.34, Hemoglobin 14.8, Hematocrit 45, Mean Corpuscular Volume 103H, Mean Corpuscular Hemoglobin 34, Mean Corpuscular Hemoglobin Concent 33, Red Cell Distribution Width 13.7, Platelet Count 142, Mean Platelet Volume 9.4, Percent Immature Platelet Fraction 2.8, Sodium Level 137, Potassium Level 3.6, Chloride Level 105, Carbon Dioxide Level 23, Anion Gap 9, Blood Urea Nitrogen 4L, Creatinine 0.62, Estimat Glomerular Filtration Rate 104, BUN/Creatinine Ratio 6, Glucose Level 99, Calcium Level 7.9L, Corrected Calcium 8.9, Phosphorus Level 2.0L, Magnesium Level 2.0, Total Bilirubin 1.1H, Aspartate Amino Transf (AST/SGOT) 25, Alanine Aminotransferase (ALT/SGPT) 18, Alkaline Phosphatase 99, Total Protein 5.5L, Albumin 2.7L, Lipase 198H Assessment/Plan Assessment/Plan Assessment/Plan Acute Pancreatitis Alcoholism Will continue IV fluids. The is no longer hypokalemic, recent labs were 3.0L. Lipase is trending downwards. Will continue to monitor. Surgery is not indicated at this time. GREGORY ROSA DO 03/24/23 1146: Subjective Time Seen by a Provider: 11:34 Subjective/Events-last exam Pt seen and examined, he told me no pain today and he is hungry. Review of Systems Pulmonary: No Dyspnea, No Cough Cardiovascular: No: Chest Pain, Palpitations Gastrointestinal: No: Nausea, Vomiting, Abdominal Pain Objective Exam General Appearance: No Apparent Distress, WD/WN HEENT: PERRL/EOMI, Other (edentulous) Respiratory: Lungs Clear, Normal Breath Sounds, No Accessory Muscle Use, No Respiratory Distress Cardiovascular: Regular Rate, Rhythm, No Murmur Gastrointestinal: non tender, soft; No guarding, No rebound Extremity: No Calf Tenderness Neurologic/Psychiatric: Alert, Oriented x3 Assessment/Plan Assessment/Plan Assessment/Plan Acute Pancreatitis Alcoholism Hypokalemia - resolved Will continue IV fluids. Lipase is 198 from 225; will continue to monitor. Would retry clear liquids and assess for abdominal pain. Will get PT/OT assessment for possible jail placement. Continue CIAZ protocol. Supervisory-Addendum Brief Verification & Attestation Participated in pt care: history, MDM, physical Personally performed: exam, history, MDM, supervision of care Care discussed with: Medical Student Procedures: n/a Verification and Attestation of Medical Student E/M Service A medical student performed and documented this service. I then reviewed and verified all information documented by the medical student and made modifications to such information, when appropriate. I personally performed a physical exam, medical decision making and then discussed any differences between the notes and made revisions as necessary to create one note. Gregory Rosa , 03/24/23 , 11:46 STEFANI FOX Mar 24, 2023 08:01 GREGORY ROSA DO Mar 24, 2023 11:46
[2023-03-24] MEDS: FOLIC ACID 1 MG TAB PO SCH (09:07)
[2023-03-24] MEDS: ASPIRIN enteric coated 81MG TABLET PO SCH (09:07)
[2023-03-24] MEDS: ACETAMINOPHEN 325 MG TABLET PO PRN ×2 (10:47→15:17)
[2023-03-24 11:22] VITALS: BP 164/89
--- NOTE | 2023-03-24 12:06 | Progress Note - Hospitalist ---
HALLEY MCGILL 03/24/23 1206: Subjective HPI/CC On Admission Date Seen by Provider: Mar 24, 2023 Time Seen by Provider: 10:30 CC: Abdominal pain Subjective/Events-last exam 68-year-old male who presented with abdominal pain, acute pancreatitis, and hypokalemia is feeling much better than yesterday. He was not been experiencing any abdominal pain. Did not get the best sleep last night as he was experiencing intermittent pain throughout the night which then ended around 6:30 am this morning. He described the pain as sharp & located above umbilicus. He was able to have chicken broth and grape fruit juice last night and reported he did not have any stomach pain after eating. Lastly, patient exhibited no tremors and was comfortable, and was trying to get some sleep. Lipase is continuing to decrease and potassium is steadily rising. Objective Exam Vital Signs Vital Signs Date Time Temp Pulse Resp B/P (MAP) Pulse Ox O2 Delivery O2 Flow Rate FiO2 03/24/23 11:22 36.3 66 18 164/89 (114) 98 Room Air 03/24/23 08:34 0.00 03/22/23 22:06 21 Capillary Refill : Less Than 3 Seconds General Appearance: No Apparent Distress HEENT: PERRL/EOMI, Pharynx Normal, Moist Mucous Membranes Respiratory: Lungs Clear, Normal Breath Sounds, No Accessory Muscle Use, No Respiratory Distress Cardiovascular: Regular Rate, Rhythm, No Gallop, No JVD, No Murmur Gastrointestinal: Distended (Some, not as bad as yesterday), Other (Hypoactive bowel sounds) Extremity: Normal Capillary Refill, Normal Inspection Neurologic/Psychiatric: Alert, Oriented x3, Normal Mood/Affect Skin: Normal Color, Warm/Dry Results/Procedures Lab Laboratory Tests 03/24/23 05:36 Patient resulted labs reviewed. Imaging: Reviewed Imaging Films, Reviewed Imaging Report Assessment/Plan Assessment and Plan Assess & Plan/Chief Complaint Assessment: Acute alcoholic pancreatitis Hypokalemia Alcoholism Homeless Presbycusis making communication difficult Plan: Continue IVF PT assessment Continue CIWA protocol Continue hypokalemia replacement protocol Monitor lipase BRITTNEE KISER DO 03/25/23 0519: Supervisory-Addendum Brief Verification & Attestation Participated in pt care: history, MDM, physical Personally performed: exam, history, MDM, supervision of care Care discussed with: Medical Student Procedures: n/a Results interpretation: Verified all documentation Verification and Attestation of Medical Student E/M Service A medical student performed and documented this service in my presence. I reviewed and verified all information documented by the medical student and made modifications to such information, when appropriate. I personally performed the physical exam and medical decision making. Brittnee Kiser, Mar 25, 2023,05:19 HALLEY MCGILL Mar 24, 2023 12:06 BRITTNEE KISER DO Mar 25, 2023 05:19
--- NOTE | 2023-03-24 14:25 | Physical Therapy Evaluation ---
PT Evaluation-General Medical Diagnosis Admission Date Mar 22, 2023 at 20:15 Medical Diagnosis: acute alcoholic pancreatitis Onset Date: Mar 22, 2023 Therapy Diagnosis Therapy Diagnosis: debility Height/Weight Height (Feet): 5 Height (Inches): 6.00 Weight (Pounds): 130 Weight (Ounces): 2.0 Precautions Precautions/Isolations: Seizure, Fall Prevention, Standard Precautions Weight Bear Status Right Lower Extremity: Right Full Weight Bearing Left Lower Extremity: Left Full Weight Bearing Referral Physician: Ethan Reason for Referral: Evaluation/Treatment Medical History Pertinent Medical History: Alcoholism, Arthritis, CAD, GERD, HTN, Smoking Current History ER secondary to abdominal pain Reviewed History: Yes Social History Current Living Status: Homeless Prior Prior Level of Function SCALE: Activities may be completed with or without assistive devices. 4-Kblflrxfrc-rdoizsg completes the activity by him/herself with no assistance from a helper. 5-Set-up or Clean-up Assistance-helper sets up or cleans up; patient completes activity. [place] assists only prior to or following the activity. 4-Supervision or Touching Assistance-helper provides verbal cues and/or touching/steadying and/or contact guard assistance as patient completes activity. Assistance may be provided throughout the activity or intermittently. 3-Partial/Moderate Assistance-helper does LESS THAN HALF the effort. [place] lifts, holds or supports trunk or limbs, but provides less than half the effort. 2-Substantial/Maximal Assistance-helper does MORE THAN HALF the effort. [place] lifts or holds trunk or limbs and provides more than half the effort. 7-Dkmpfsxmu-rpwksq does ALL the effort. Patient does none of the effort to complete the activity. Or, the assistance of 2 or more helpers is required for the patient to complete the activity. If activity was not attempted, code reason: 7-Patient Refused. 9-Not Applicable-not attempted and the patient did not perform the activity before the current illness, exacerbation or injury. 10-Not Attempted due to Environmental Limitations-(lack of equipment, weather restraints, etc.). 88-Not Attempted due to Medical Conditions or Safety Concerns. Bed Mobility: 6 Transfers (B,C,W/C): 6 Gait: 6 Stairs: 6 Indoor Mobility (Ambulation): Independent Stairs: Independent Prior Devices Use: None PT Evaluation-Current Subjective Patient agrees to PT. Objective Patient Orientation: Person, Time, Situation Attachments: IV ROM/Strength ROM Lower Extremities bilateral LE WFL Strength Lower Extremities 4/5 grossly bilateral LE all planes Integumentary/Posture Bowel Incontinence: No Bladder Incontinence: No Posture WFL Neuromuscular (Tone, Coordination, Reflexes) grossly intact Sensory Vision: Functional Hearing: Impaired Transfers Sit to Lying (QC): 6 Lying to Sitting/Side of Bed(Q: 6 Sit to Stand (QC): 6 Gait Mode of Locomotion: Walk Anticipated Mode of Locomotion: Walk Walk 10 feet (QC): 6 Walk 50 ft with 2 Turns(QC): 6 Walk 150 ft (QC): 6 Distance: 400' Gait Assistive Device: FWW Comments/Gait Description safe and functional with no deviation Balance Sitting Static: Normal Sitting Dynamic: Normal Standing Static: Normal Standing Dynamic: Normal Assessment/Needs Patient is currently at independent [facility] with all gross motor skills and does not require skilled PT intervention at this time. Rehab Potential: Fair PT Plan Treatment/Plan Treatment Plan: Discontinue PT, goals met Treatment Duration: Mar 24, 2023 Frequency: 1 time per week Estimated Hrs Per Day: .25 hour per day Patient and/or Family Agrees t: Yes Time Time In: 1330 Time Out: 1340 DATE: Mar 24, 2023 Total Billed Treatment Time: 10 Total Billed Treatment 1 visit EVMod 10 min MAG ZULETA PT Mar 24, 2023 14:25
[2023-03-24 15:24] VITALS: BP 160/80
[2023-03-24 16:07] VITALS: BP 142/82
[2023-03-24 19:26] VITALS: BP 166/75
[2023-03-24] MEDS: ENOXAPARIN 40 MG/0.4 ML SYRINGE SC SCH (19:31)
[2023-03-24] MEDS: LOPERAMIDE 2 MG CAPSULE PO PRN (22:19)
[2023-03-25] VITALS (8 sets, daily range): BP systolic 129–169; BP diastolic 57–90
[2023-03-25] MEDS: LACTATED RINGERS 1,000 ML IV SCH ×2 (00:40→14:09)
[2023-03-25] MEDS: THIAMINE 100 MG (VITAMIN B-1) TAB PO SCH (05:19)
[2023-03-25] MEDS: MULTIVIT W/MINERALS TAB (THERAGRAN M) PO SCH (05:19)
[2023-03-25 05:57] LABS: HEMATOCRIT 44 % (40-54); HEMOGLOBIN 14.6 g/dL (13.3-17.7); MEAN CORPUSCULAR HEMOGLOBIN 34 pg (25-34); MEAN CORPUSCULAR HGB CONC 33 g/dL (32-36); MEAN CORPUSCULAR VOLUME 102 fL (80-99); MEAN PLATELET VOLUME 9.6 fL (9.0-12.2); PLATELET COUNT 144 10^3/uL (130-400); WHITE BLOOD COUNT 4.7 10^3/uL (4.3-11.0)
[2023-03-25 06:14] LABS: ALBUMIN 2.6 GM/DL (3.2-4.5); BILIRUBIN,TOTAL 0.9 MG/DL (0.1-1.0); CALCIUM 7.9 MG/DL (8.5-10.1); CREATININE SERUM 0.57 MG/DL (0.60-1.30); MAGNESIUM 1.7 MG/DL (1.6-2.4); PHOSPHORUS 2.2 MG/DL (2.3-4.7); POTASSIUM 3.4 MMOL/L (3.6-5.0); TOTAL PROTEIN 5.1 GM/DL (6.4-8.2)
[2023-03-25] MEDS: MAGNESIUM 1 GM/100 ML IVPB 100 ML IV SCH ×5 (06:21→10:42)
[2023-03-25] MEDS: POTASSIUM CHLORIDE 20 MEQ TABLET PO SCH (06:21)
[2023-03-25] MEDS: POTASSIUM CL 10MEQ/50ML IVPB 50 ML IV SCH (06:22)
--- NOTE | 2023-03-25 07:05 | Progress Note - Surgery ---
STEFANI FOX 03/25/23 0705: Subjective Time Seen by a Provider: 07:00 Subjective/Events-last exam Pt states that his abdomen is hurting this morning. He describes the pain as a "knife stabbing into me" into his belly button. He woke up during the middle of the night with some pain, it has been slowly increasing in pain. He rates the pain as a 7/10. The pain radiates to his back. He denies eating or drinking anything throughout the night. He states that touching his belly button increases the pain. He says that the only thing that makes the pain better is the pain medicine. Review of Systems General: Chills, Fatigue; No Appetite HEENT: No Head Aches, No Visual Changes, No Ear Pain Pulmonary: Cough Cardiovascular: No: Chest Pain, Palpitations Gastrointestinal: Abdominal Pain (central); No: Nausea, Vomiting Neurological: No: Change in speech, Confusion Objective Exam Vital Signs Date Time Temp Pulse Resp B/P (MAP) Pulse Ox O2 Delivery O2 Flow Rate FiO2 03/25/23 04:07 36.7 68 18 155/69 (97) 97 Room Air 0.00 0.00 03/25/23 01:34 36.8 88 96 21 03/25/23 00:00 36.4 63 18 169/90 (116) 98 Room Air 03/24/23 20:00 Room Air 03/24/23 19:26 36.2 51 18 166/75 (105) 98 Room Air 03/24/23 16:07 142/82 (102) 03/24/23 15:24 37.2 105 18 160/80 (106) 97 Room Air 03/24/23 11:22 36.3 66 18 164/89 (114) 98 Room Air 03/24/23 08:34 Room Air 0.00 03/24/23 08:09 99 Room Air 0.00 03/24/23 07:45 36.5 53 18 140/70 (93) 96 Room Air I & O 03/25/23 07:00 Intake Total 1415 ml Output Total 1470 ml Balance -55 ml Capillary Refill : Less Than 3 Seconds General Appearance: No Apparent Distress HEENT: PERRL/EOMI; No Photophobia, No Scleral Icterus (L), No Scleral Icterus (R) Respiratory: Lungs Clear, Normal Breath Sounds, No Accessory Muscle Use, No Respiratory Distress Cardiovascular: Regular Rate, Rhythm, No Murmur Peripheral Pulses: 2+ Carotid (R), 2+ Carotid (L), 2+ Dorsalis Pedis (R), 2+ Left Dors-Pedis (L), 2+ Radial Pulses (R), 2+ Radial Pulses (L) Gastrointestinal: normal bowel sounds, distended (RUQ, LUQ), guarding, rebound, tenderness Neurologic/Psychiatric: Alert, Oriented x3, Normal Mood/Affect Skin: Normal Color, Warm/Dry Results Lab Laboratory Tests 03/25/23 05:39: White Blood Count 4.7, Red Blood Count 4.30, Hemoglobin 14.6, Hematocrit 44, Mean Corpuscular Volume 102H, Mean Corpuscular Hemoglobin 34, Mean Corpuscular Hemoglobin Concent 33, Red Cell Distribution Width 13.5, Platelet Count 144, Mean Platelet Volume 9.6, Sodium Level 136, Potassium Level 3.4L, Chloride Level 104, Carbon Dioxide Level 23, Anion Gap 9, Blood Urea Nitrogen 4L, Creatinine 0.57L, Estimat Glomerular Filtration Rate 107, BUN/Creatinine Ratio 7, Glucose Level 102, Calcium Level 7.9L, Corrected Calcium 9.0, Phosphorus Level 2.2L, Magnesium Level 1.7, Total Bilirubin 0.9, Aspartate Amino Transf (AST/SGOT) 24, Alanine Aminotransferase (ALT/SGPT) 17, Alkaline Phosphatase 90, Total Protein 5.1L, Albumin 2.6L, Lipase 164H Assessment/Plan Assessment/Plan Assessment/Plan Acute Pancreatitis Alcoholism Will continue IV fluids. Lipase is 164 from 198; will continue to monitor. Continue CIWA protocol. GREGORY ROSA DO 03/25/23 1254: Subjective Time Seen by a Provider: 12:41 Subjective/Events-last exam Pt seen and examined, states he has sme abdominal pain; but is very hungry. Review of Systems General: Chills, Fatigue HEENT: No Head Aches, No Visual Changes Pulmonary: Cough Cardiovascular: No: Chest Pain, Palpitations Gastrointestinal: Abdominal Pain (central); No: Nausea, Vomiting Objective Exam General Appearance: No Apparent Distress HEENT: PERRL/EOMI; No Scleral Icterus (L), No Scleral Icterus (R) Respiratory: Lungs Clear, Normal Breath Sounds, No Accessory Muscle Use, No Respiratory Distress Cardiovascular: Regular Rate, Rhythm, No Murmur Gastrointestinal: normal bowel sounds, distended (RUQ, LUQ), guarding (voluntary), tenderness Neurologic/Psychiatric: Alert, Oriented x3 Assessment/Plan Assessment/Plan Assessment/Plan Acute Pancreatitis Alcoholism Will continue IV fluids. Lipase is 164 from 198; will continue to monitor. Would try increasing to regular diet. Continue CIWA protocol. Supervisory-Addendum Brief Verification & Attestation Participated in pt care: history, MDM, physical Personally performed: exam, history, MDM, supervision of care Care discussed with: Medical Student Procedures: n/a Verification and Attestation of Medical Student E/M Service A medical student performed and documented this service. I then reviewed and verified all information documented by the medical student and made modifications to such information, when appropriate. I personally performed a physical exam, medical decision making and then discussed any differences between the notes and made revisions as necessary to create one note. Gregory Rosa , 03/25/23 , 12:54 STEFANI FOX Mar 25, 2023 07:05 GREGORY ROSA DO Mar 25, 2023 12:54
[2023-03-25] MEDS: ASPIRIN enteric coated 81MG TABLET PO SCH (07:56)
[2023-03-25] MEDS: FOLIC ACID 1 MG TAB PO SCH (07:56)
[2023-03-25] MEDS ORDERED: POTASSIUM CHLORIDE 20 MEQ TABLET PO ONE (09:00)
[2023-03-25] MEDS: ACETAMINOPHEN 325 MG TABLET PO PRN ×2 (13:57→17:56)
--- NOTE | 2023-03-25 14:10 | Progress Note - Hospitalist ---
HALLEY MCGILL 03/25/23 1410: Subjective HPI/CC On Admission Date Seen by Provider: Mar 25, 2023 Time Seen by Provider: 10:30 CC: Abdominal pain Subjective/Events-last exam 68-year-old male with acute alcoholic pancreatitis is still experiencing abdominal pain. He woke up last night with some pain and was having pain this morning. The pain slowly increased through the night and up till this morning. Described the pain as a "sharp stabbing" in his umbilical area that radiates to his back. Patient denied having anything to eat or drink last night. Only the pain medicine has help with the pain and was inquiring if he could receive some more. Objective Exam Vital Signs Vital Signs Date Time Temp Pulse Resp B/P (MAP) Pulse Ox O2 Delivery O2 Flow Rate FiO2 03/25/23 11:54 36.4 69 18 146/85 (105) 96 Room Air 03/25/23 08:41 0.00 03/25/23 01:34 21 Capillary Refill : Less Than 3 Seconds General Appearance: No Apparent Distress HEENT: PERRL/EOMI, Pharynx Normal Respiratory: Normal Breath Sounds, No Accessory Muscle Use, No Respiratory Distress Cardiovascular: Regular Rate, Rhythm, No Murmur Gastrointestinal: Normal Bowel Sounds, Distended, Guarding, Tenderness Neurologic/Psychiatric: Alert, Oriented x3, Normal Mood/Affect Skin: Normal Color, Warm/Dry Results/Procedures Lab Laboratory Tests 03/25/23 05:39 Patient resulted labs reviewed. Imaging: Reviewed Imaging Films, Reviewed Imaging Report Assessment/Plan Assessment and Plan Assess & Plan/Chief Complaint Assessment: Acute alcoholic pancreatitis Hypokalemia Alcoholism Homeless Presbycusis making communication difficult Plan: Continue IVF Continue CIWA protocol Continue hypokalemia replacement protocol Pain management Monitor lipase BRITTNEE KISER DO 03/25/23 2016: Supervisory-Addendum Brief Verification & Attestation Participated in pt care: history, MDM, physical Personally performed: exam, history, MDM, supervision of care Care discussed with: Medical Student Procedures: n/a Results interpretation: Verified all documentation Verification and Attestation of Medical Student E/M Service A medical student performed and documented this service in my presence. I reviewed and verified all information documented by the medical student and made modifications to such information, when appropriate. I personally performed the physical exam and medical decision making. Brittnee Kiser, Mar 25, 2023,20:16 HALLEY MCGILL Mar 25, 2023 14:10 BRITTNEE KISER DO Mar 25, 2023 20:16
[2023-03-25] MEDS: ENOXAPARIN 40 MG/0.4 ML SYRINGE SC SCH (19:37)
[2023-03-25] MEDS: LOPERAMIDE 2 MG CAPSULE PO PRN (20:51)
[2023-03-26] MEDS: ACETAMINOPHEN 325 MG TABLET PO PRN ×2 (00:26→05:18)
[2023-03-26] MEDS: LACTATED RINGERS 1,000 ML IV SCH (00:26)
[2023-03-26 03:07] VITALS: BP 146/84
[2023-03-26] MEDS: MULTIVIT W/MINERALS TAB (THERAGRAN M) PO SCH (05:17)
[2023-03-26 05:18] LABS: HEMATOCRIT 45 % (40-54); MEAN CORPUSCULAR HEMOGLOBIN 34 pg (25-34); MEAN CORPUSCULAR HGB CONC 34 g/dL (32-36); MEAN CORPUSCULAR VOLUME 102 fL (80-99); MEAN PLATELET VOLUME 9.3 fL (9.0-12.2); PLATELET COUNT 153 10^3/uL (130-400); WHITE BLOOD COUNT 4.6 10^3/uL (4.3-11.0)
[2023-03-26 05:46] LABS: ALBUMIN 2.7 GM/DL (3.2-4.5); BILIRUBIN,TOTAL 0.6 MG/DL (0.1-1.0); CALCIUM 8.1 MG/DL (8.5-10.1); CREATININE SERUM 0.66 MG/DL (0.60-1.30); MAGNESIUM 1.8 MG/DL (1.6-2.4); PHOSPHORUS 2.7 MG/DL (2.3-4.7); POTASSIUM 3.4 MMOL/L (3.6-5.0); TOTAL PROTEIN 5.2 GM/DL (6.4-8.2)
[2023-03-26] MEDS: POTASSIUM CHLORIDE 20 MEQ TABLET PO SCH (06:04)
[2023-03-26] MEDS: POTASSIUM CL 10MEQ/50ML IVPB 50 ML IV SCH (06:04)
[2023-03-26] MEDS: MAGNESIUM 1 GM/100 ML IVPB 100 ML IV SCH ×3 (06:04→07:26)
--- NOTE | 2023-03-26 07:06 | Progress Note - Surgery ---
STEFANI FOX 03/26/23 0706: Subjective Time Seen by a Provider: 07:00 Subjective/Events-last exam Pt states that he still has abdominal pain but it is less than yesterday. He states that the last meal he had was last night and the pain went away after he ate, but returned this morning. He says it hurts when I was touching his abdomen for the physical exam. Review of Systems General: No Chills, No Night Sweats, No Fatigue, No Malaise; Appetite HEENT: No Head Aches, No Visual Changes, No Eye Pain, No Ear Pain Pulmonary: No Cough Cardiovascular: No: Chest Pain Gastrointestinal: Abdominal Pain (central); No: Nausea, Vomiting Neurological: No: Change in speech, Confusion Objective Exam Vital Signs Date Time Temp Pulse Resp B/P (MAP) Pulse Ox O2 Delivery O2 Flow Rate FiO2 03/26/23 03:07 36.2 61 18 146/84 (104) 98 Room Air 0.00 0.00 03/25/23 23:23 36.5 59 18 152/82 (105) 96 Room Air 0.00 0.00 03/25/23 20:29 97 Room Air 03/25/23 20:00 Room Air 03/25/23 19:21 36.6 61 18 129/72 (91) 97 Room Air 03/25/23 15:21 36.6 62 18 130/82 (98) 97 Room Air 03/25/23 11:54 36.4 69 18 146/85 (105) 96 Room Air 03/25/23 08:41 96 Room Air 0.00 03/25/23 08:00 Room Air 03/25/23 07:33 36.5 64 18 140/73 (95) 97 Room Air I & O 03/26/23 07:00 Intake Total 2920 ml Output Total 1900 ml Balance 1020 ml Capillary Refill : Less Than 3 Seconds General Appearance: No Apparent Distress HEENT: PERRL/EOMI; No Photophobia, No Scleral Icterus (L), No Scleral Icterus (R) Respiratory: Normal Breath Sounds, No Accessory Muscle Use, No Respiratory Distress Cardiovascular: Regular Rate, Rhythm, No Murmur Peripheral Pulses: 2+ Dorsalis Pedis (R), 2+ Left Dors-Pedis (L), 2+ Radial Pulses (R), 2+ Radial Pulses (L) Gastrointestinal: abnormal bowel sounds (hyperactive in RUQ and LUQ), distended (RUQ, LUQ); No guarding, No rebound; tenderness (RUQ and LUQ) Neurologic/Psychiatric: Alert, Oriented x3, Normal Mood/Affect Skin: Normal Color, Warm/Dry Results Lab Laboratory Tests 03/26/23 05:11: White Blood Count 4.6, Red Blood Count 4.38, Hemoglobin 15.0, Hematocrit 45, Mean Corpuscular Volume 102H, Mean Corpuscular Hemoglobin 34, Mean Corpuscular Hemoglobin Concent 34, Red Cell Distribution Width 13.6, Platelet Count 153, Me an Platelet Volume 9.3, Sodium Level 136, Potassium Level 3.4L, Chloride Level 104, Carbon Dioxide Level 24, Anion Gap 8, Blood Urea Nitrogen 5L, Creatinine 0.66, Estimat Glomerular Filtration Rate 102, BUN/Creatinine Ratio 8, Glucose Level 102, Calcium Level 8.1L, Corrected Calcium 9.1, Phosphorus Level 2.7, Magnesium Level 1.8, Total Bilirubin 0.6, Aspartate Amino Transf (AST/SGOT) 21, Alanine Aminotransferase (ALT/SGPT) 15, Alkaline Phosphatase 97, Total Protein 5.2L, Albumin 2.7L, Lipase 216H Assessment/Plan Assessment/Plan Assessment/Plan Acute Pancreatitis Alcoholism Will continue IV fluids. Lipase increased from 164 to 216; will continue to monitor. Will continue increasing to regular diet. Continue CIWA protocol. GREGORY ROSA DO 03/26/23 1011: Subjective Time Seen by a Provider: 09:57 Subjective/Events-last exam Pt seen and examined, basically same as yesterday. Does have some abdominal pain, but yesterday it got better after eating. Review of Systems HEENT: No Head Aches, No Visual Changes Pulmonary: No Cough Cardiovascular: No: Chest Pain Gastrointestinal: Abdominal Pain (central); No: Nausea, Vomiting Objective Exam General Appearance: No Apparent Distress HEENT: PERRL/EOMI Respiratory: Lungs Clear, Normal Breath Sounds, No Accessory Muscle Use, No Respiratory Distress Cardiovascular: Regular Rate, Rhythm, No Murmur Gastrointestinal: abnormal bowel sounds (hyperactive in RUQ and LUQ), distended (RUQ, LUQ), guarding (voluntary); No rebound; tenderness (RUQ and LUQ) Neurologic/Psychiatric: Alert, Oriented x3 Assessment/Plan Assessment/Plan Assessment/Plan Acute Pancreatitis Alcoholism Will continue IV fluids. Lipase increased from 164 to 216; will continue to monitor. Will continue increasing to regular diet. Continue CIWA protocol. Nothing further surgical, will sign off and can reconsult if needed. Supervisory-Addendum Brief Verification & Attestation Participated in pt care: history, MDM, physical Personally performed: exam, history, MDM, supervision of care Care discussed with: Medical Student Procedures: n/a Verification and Attestation of Medical Student E/M Service A medical student performed and documented this service. I then reviewed and verified all information documented by the medical student and made modifications to such information, when appropriate. I personally performed a physical exam, medical decision making and then discussed any differences between the notes and made revisions as necessary to create one note. Gregory oRsa , 03/26/23 , 10:11 STEFANI FOX Mar 26, 2023 07:06 GREGORY ROSA DO Mar 26, 2023 10:11
[2023-03-26 07:44] VITALS: BP 136/78
[2023-03-26] MEDS: ASPIRIN enteric coated 81MG TABLET PO SCH (08:11)
[2023-03-26] MEDS: FOLIC ACID 1 MG TAB PO SCH (08:11)
[2023-03-26] MEDS ORDERED: POTASSIUM CHLORIDE 20 MEQ TABLET PO ONE (09:00)
[2023-03-26 11:33] VITALS: BP 142/79
[2023-03-26] MEDS ORDERED: MULT-1137 PO (12:02)
[2023-03-26] MEDS ORDERED: ASPI-1238 PO (12:02)
[2023-03-26] MEDS ORDERED: ATOR40TA PO (12:02)
[2023-03-26] MEDS ORDERED: OXC5T PO (12:02)
--- NOTE | 2023-03-26 12:03 | Discharge Summary ---
Discharge Summary Hospital Course Was the Problem List Reviewed?: Yes Problems/Dx: (1) Acute alcoholic pancreatitis Status: Acute Qualifiers: Qualified Codes: K85.20 - Alcohol induced acute pancreatitis without necrosis or infection (2) Hypokalemia Status: Acute (3) Alcoholism Status: Chronic (4) Homeless Status: Acute Hospital Course Date of Admission: Mar 22, 2023 at 20:15 Admission Diagnosis : Family Physician/Provider: [place] Date of Discharge: 03/26/23 Discharge Diagnosis: [ ] Hospital Course: Hospital course: 58-year-old male presented to ED by [facility] for elevated lipase and upper abdominal pain. Lipase was 367 and patient was found to have a potassium of 2.6 mEq/L. A head/cervical spine CT showed no acute intracranial abnormality. CT of the chest/abdomen/pelvis showed mild peripancreatic inflammation. Patient was admitted with acute alcoholic pancreatitis & hypokalemia with a history of alcoholism. He is homeless and has presbycusis which makes communication difficult. During his hospital stay, patient was treated with Lactated Ringer's, potassium chloride, and magnesium sulfate/dextrose. Patient was given thiamine & folic acid and received CIWA protocol for his chronic alcoholism. Patient was placed on NPO status and had a surgery consult to evaluate if his diet could be change. His pain fluctuated everyday, but had a steady decline in lipase. Patient was able to achieve a regular diet and reported no pain after eating solid food. On the day of discharge, his lipase was 216 and potassium 3.4. Labs and Pending Lab Test: Laboratory Tests 03/26/23 05:11: White Blood Count 4.6, Red Blood Count 4.38, Hemoglobin 15.0, Hematocrit 45, Mean Corpuscular Volume 102H, Mean Corpuscular Hemoglobin 34, Mean Corpuscular Hemoglobin Concent 34, Red Cell Distribution Width 13.6, Platelet Count 153, Mean Platelet Volume 9.3, Sodium Level 136, Potassium Level 3.4L, Chloride Level 104, Carbon Dioxide Level 24, Anion Gap 8, Blood Urea Nitrogen 5L, Creatinine 0.66, Estimat Glomerular Filtration Rate 102, BUN/Creatinine Ratio 8, Glucose Level 102, Calcium Level 8.1L, Corrected Calcium 9.1, Phosphorus Level 2.7, Magnesium Level 1.8, Total Bilirubin 0.6, Aspartate Amino Transf (AST/SGOT) 21, Alanine Aminotransferase (ALT/SGPT) 15, Alkaline Phosphatase 97, Total Protein 5.2L, Albumin 2.7L, Lipase 216H Home Meds Active Tab-A-Carole Multivit with Iron (Multivitamin/Iron/Folic Acid) 18 Mg Iron-400 Mcg Tablet 1 Ea PO DAILY@0700 Aspirin EC (Aspirin) 81 Mg Tablet. 81 Mg PO DAILY Lipitor (Atorvastatin Calcium) 40 Mg Tablet 40 Mg PO HS Assessment/Pt Instructions PCP 1 week Discharge Planning: <30 minutes discharge planning Discharge Instructions Discharge Diet: No Restrictions Discharge Physical Examination Vital Signs Vital Signs Date Time Temp Pulse Resp B/P (MAP) Pulse Ox O2 Delivery O2 Flow Rate FiO2 03/26/23 11:33 37.0 74 22 142/79 (100) 98 Room Air 03/26/23 03:07 0.00 0.00 03/25/23 01:34 21 General Appearance: No Apparent Distress, WD/WN, Chronically ill Allergies: Coded Allergies: ibuprofen (Verified Adverse Reaction, Unknown, Hypertension, pt has rec ASA in the past, 11/05/21) HYPERTENSION tramadol (Verified Adverse Reaction, Unknown, VOMIT, 10/03/18) Discharge Summary Date of Admission Mar 22, 2023 at 20:15 Date of Discharge Discharge Date: Mar 26, 2023 Admission Diagnosis I performed history and physical and conferred with resident and agree with medical management Discharge Diagnosis (1) Acute alcoholic pancreatitis Status: Acute Assessment & Plan: CT scan, elevated lipase and physical exam findings consistent with pancreatitis Alcohol level elevated on admission Likely secondary to alcohol use No nausea or vomiting at this time Will do clear liquid diet as tolerated Continue fluid resuscitation with LR Antiemetics on board if needed Pain management with oral nonopioid medications as well as morphine IV on board Qualifiers: Qualified Codes: K85.20 - Alcohol induced acute pancreatitis without necrosis or infection (2) Hypokalemia Status: Acute Assessment & Plan: Likely secondary to alcohol use Status post 40 mEq p.o. potassium in the ED Follow hypokalemia replacement protocol (3) Alcoholism Status: Chronic Assessment & Plan: Last drink was 7 PM yesterday Will have CIWA monitoring on board Patient will be given thiamine and folic acid (4) Homeless Status: Acute Assessment & Plan: Consulting social work for assistance with safe discharge plan STALIN KISER DO Mar 26, 2023 12:03
--- NOTE | 2023-03-26 13:10 | Progress Note ---
HALLEY MCGILL 03/26/23 1310: Progress Note Hospital course: 58-year-old male presented to ED by [facility] for elevated lipase and upper abdominal pain. Lipase was 367 and patient was found to have a potassium of 2.6 mEq/L. A head/cervical spine CT showed no acute intracranial abnormality. CT of the chest/abdomen/pelvis showed mild peripancreatic inflammation. Patient was admitted with acute alcoholic pancreatitis & hypokalemia with a history of alcoholism. He is homeless and has presbycusis which makes communication difficult. During his hospital stay, patient was treated with Lactated Ringer's, potassium chloride, and magnesium sulfate/dextrose. Patient was given thiamine & folic acid and received CIWA protocol for his chronic alcoholism. Patient was placed on NPO status and had a surgery consult to evaluate if his diet could be change. His pain fluctuated everyday, but had a steady decline in lipase. Patient was able to achieve a regular diet and reported no pain after eating solid food. On the day of discharge, his lipase was 216 and potassium 3.4. BRITTNEE KISER DO 03/26/23 2207: Supervisory-Addendum Brief Verification & Attestation Participated in pt care: history, MDM, physical Personally performed: exam, history, MDM, supervision of care Care discussed with: Medical Student Procedures: n/a Results interpretation: Verified all documentation Verification and Attestation of Medical Student E/M Service A medical student performed and documented this service in my presence. I reviewed and verified all information documented by the medical student and made modifications to such information, when appropriate. I personally performed the physical exam and medical decision making. Brittnee Kiser Mar 26, 2023,22:07 HALLEY MCGILL Mar 26, 2023 13:10 BRITTNEE KISER DO Mar 26, 2023 22:07
== END 2023-03-26 14:55 | disposition home or self-care (01) | DRG 440 ==
LOC: EDUNIT# 17:06 → ER 17:10 → 4TH 20:15
PROVIDERS: ADMIT Internal Medicine; ATTEND Internal Medicine
PROC: HZ2ZZZZ Detoxification Services for Substance Abuse Treatment (ICD-10-PCS; principal; 2023-03-26)
DX: K85.20 Alcohol induced acute pancreatitis without necrosis or infection (principal); E87.6 Hypokalemia; F10.20 Alcohol dependence, uncomplicated; Z59.00 Homelessness unspecified; Z79.82 Long term (current) use of aspirin; Z79.899 Other long term (current) drug therapy; F17.210 Nicotine dependence, cigarettes, uncomplicated; Z86.16 Personal history of COVID-19; E78.00 Pure hypercholesterolemia, unspecified; I10 Essential (primary) hypertension; K21.9 Gastro-esophageal reflux disease without esophagitis; M19.90 Unspecified osteoarthritis, unspecified site; G89.29 Other chronic pain; M54.9 Dorsalgia, unspecified; F41.9 Anxiety disorder, unspecified; F32.A Depression, unspecified; H91.10 Presbycusis, unspecified ear
CPT/HCPCS: 36415; 70450; 71045; 71275; 72125; 74174; 80053; 80306; 80320; 80329; 81000; 83690; 83735; 84100; 84484; 85025; 85027; 85610; 85730; 93005; 94760

== ENCOUNTER 2023-04-02 17:52 | Observation (INO) | payer MEDICARE, MEDICAID ==
[~2023-04-02] VITALS: Ht 167.7 cm; Wt 64.6 kg
[~2023-04-02 17:52] MED LIST changes: +MULT-1137 PO
--- NOTE | 2023-04-02 18:09 | ED General ---
General Chief Complaint: Dizziness/Syncope Stated Complaint: FALL/HEAD INJURY Nursing Triage Note: PT TO RM 6 WITH C/O DIZZINESS, SYNCOPE AND MULTIPLE FALLS SINCE D/C FROM HOSPITAL Source of Information: Patient (LIMITED HISTORIAN), Old Records History of Present Illness Date Seen by Provider: Apr 02, 2023 Time Seen by Provider: 18:00 Initial Comments PT ARRIVES VIA POV--PT IS HOMELESS. STATES HIS NEPHEW DROPPED HIM OFF PT STATES ABOUT AN HOUR AGO, HE "PASSED OUT" --TEMP IS > 90 DEGREES OUTSIDE WITH HEAT INDEX > 100--STATES HE HAS JUST BEEN WALKING AROUND ALL DAY. PT STATES THAT HE WAS "JUST WALKING AND I DROPPED" . HIT HIS HEAD ON CONCRETE--HAS ABRASIONS/EARLY BRUISING TO BOTH SIDES OF FOREHEAD THIS IS A FREQUENT ISSUE WITH THE PATIENT. STATES "I CAN'T WALK 20 FEET" AND THEN HE "FALLS DOWN" --HE STATES HE HAS HAD MULTIPLE "FALLS" SINCE BEING DISMISSED. STATES HE IS "JUST WEAK" AND HIS LEGS WON'T HOLD HIM UP PT WAS ADMITTED HERE 03/22/23-03/26/23 FOR ALCOHOLIC PANCREATITIS. HE HAS NOT FOLLOWED UP WITH ANYONE SINCE THEN, HAS NOT TAKEN ANY MEDICATIONS, DID NOT RESIDENT CARE SUPERVISOR ANY RX'S. HE HAS CONTINUED TO DRINK DAILY--"1/3 OF A PINT" THIS MORNING HE DENIES ANY NECK PAIN DENIES ANY NEW BACK PAIN--HAS CHRONIC BACK PAIN AND HAS HAD 4 BACK SURGERIES. NO VISION CHANGES NO PARESTHESIAS OR MOTOR DEFICITS NO CHEST PAIN OR PALPITATIONS NO SHORTNESS OF BREATH NO COUGH OR URI SYMPTOMS NO FEVER/SWEATS/CHILLS NO EXTREMITY PAIN NO NAUSEA/VOMITING/DIARRHEA/ABDOMINAL PAIN NO URINARY SYMPTOMS PT WITH MULTITUDE VISITS HERE FOR VARIOUS COMPLAINTS--HE HAS BEEN HERE MULTIPLE TIMES FOR THIS SAME COMPLAINT OF SYNCOPE AND GENERALIZED WEAKNESS LONGSTANDING NON-COMPLIANCE IN ALL ASPECTS OF CARE PCP: [facility] Allergies and Home Medications Allergies Coded Allergies: ibuprofen (Verified Adverse Reaction, Unknown, Hypertension, pt has rec ASA in the past, 11/05/21) HYPERTENSION tramadol (Verified Adverse Reaction, Unknown, VOMIT, 10/03/18) Patient Home Medication List Aspirin (Aspirin EC) 81 Mg Tablet., 81 MG PO DAILY Prescribed by: STALIN KISER on 03/26/23 1202 Atorvastatin Calcium (Lipitor) 40 Mg Tablet, 40 MG PO HS Prescribed by: STALIN KISER on 03/26/23 1202 Multivitamin/Iron/Folic Acid (Tab-A-Carole Multivit with Iron) 18 Mg Iron-400 Mcg Tablet, 1 EA PO DAILY@0700 Prescribed by: STALIN KISER on 03/26/23 1202 Oxycodone Hcl (Oxyir Tablet) 5 Mg Tab, 5 MG PO TID Prescribed by: STALIN KISER on 03/26/23 1203 Review of Systems Review of Systems Constitutional: no symptoms reported EENTM: no symptoms reported Respiratory: no symptoms reported Cardiovascular: see HPI, syncope Past Ymeugkf-Wolpxk-Wxexcs Hx Patient Social History Tobacco Use?: Yes Tobacco type used: Cigarettes Substance use?: No Alcohol Use?: No Pt feels they are or have been: No Immunizations Up To Date Tetanus Booster (TDap): Unknown First/Initial COVID19 Vaccinat: 09/2021 Second COVID19 Vaccination Jl: 10/2021 Third COVID19 Vaccination Date: 09/2021 Seasonal Allergies Seasonal Allergies: No Past Medical History Surgery/Hospitalization HX: BACK X 3, ROTATOR CUFF X 3, APPENDIX, GALLBLADDER Surgeries: Yes Appendectomy, Gallbladder, Orthopedic Respiratory: No Currently Using CPAP: No Currently Using BIPAP: No Cardiac: Yes High Cholesterol, Hypertension Neurological: Yes TIA Gastrointestinal: Yes Gastroesophageal Reflux, Pancreatitis, Gall Bladder Disease Musculoskeletal: Yes Arthritis, Chronic Back Pain Endocrine: No HEENT: Yes Hearing Impairment: Hard of Hearing Cancer: No Skin Did You Recieve Any Treatments: Yes What Type of Treatment Did You: Surgical Intervention Adverse Reaction/Blood Tranf: No Family Medical History Cancer 03 FATHER (PROSTATE) 03 MOTHER (BREAST CA ) 09 BROTHER (THROAT/PANCREATIC) 09 SISTER (LIVER) DEAFNESS 03 FATHER 09 BROTHER Family history: Breast disease 03 MOTHER (BREAST CA) History of - respiratory disease Prostate cancer 03 FATHER Stroke 03 MOTHER Visual impairment Cancer, Stroke LONG HISTORY OF EXTREME NON-COMPLIANCE IN ALL ASPECTS OF CARE PT IS HOMELESS, AND HAS BEEN FOR A LONG TIME SOCIAL HISTORY: -SMOKES 2-3 PPD -ETOH--ABUSE/DAILY USE--ALSO DRINKS LARGE AMOUNTS OF NYQUIL DAILY; WITH HISTORY OF ALCOHOL WITHDRAWL SYMPTOMS -DRUGS-EXTENSIVE POLYSUBSTANCE ABUSE AND OVERDOSES--ESPECIALLY XANAX/BENZODIAZEPINES AND NARCOTICS/OPIATES; METHAMPHETAMINES -HAS HAD A MULTITUDE OF ACCIDENTS DUE TO SUBSTANCE ABUSE, HISTORY OF GETTING MULTIPLE RX'S FROM MULTIPROVIDERS USING MULTIPLE PHARMACIES; -HAS BEEN EVICTED FROM MULTIPLE REHAB /SUBSTANCE ABUSE TREATMENT FACILITIES, INCLUDING [facility], FOR EXTREME NON-COMPLIANCE. 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 % Physical Exam Vital Signs Vital Signs - First Documented 04/02/23 18:00 Temp 37.6 Pulse 90 Resp 17 B/P (MAP) 125/80 (95) Capillary Refill : Height, Weight, BMI Height: 5'6.00" Weight: 130lbs. 2.0oz. [id number]; 22.30 BMI Method:Stated General Appearance: No Apparent Distress, WD/WN, Other (FILTHY, UNKEMPT, MALODOROUS. 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 Skin: Normal Color, Warm/Dry Progress/Results/Core Measures Suspected Sepsis SIRS Temperature: Pulse: 90 Respiratory Rate: 17 Laboratory Tests 04/02/23 18:06: White Blood Count 6.0 Blood Pressure 125 /80 Mean: 95 Laboratory Tests 04/02/23 18:06: Creatinine 0.81, INR Comment 1.1, Platelet Count 303, Total Bilirubin 0.3 Results/Orders Lab Results Laboratory Tests Test 04/02/23 18:06 04/02/23 18:13 8/17/23 18:17 Range/Units White Blood Count 6.0 4.3-11.0 10^3/uL Red Blood Count 4.24 L 4.30-5.52 10^6/uL Hemoglobin 14.4 13.3-17.7 g/dL Hematocrit 44 40-54 % Mean Corpuscular Volume 103 H 80-99 fL Mean Corpuscular Hemoglobin 34 25-34 pg Mean Corpuscular Hemoglobin Concent 33 32-36 g/dL Red Cell Distribution Width 13.5 10.0-14.5 % Platelet Count 303 130-400 10^3/uL Mean Platelet Volume 8.6 L 9.0-12.2 fL Immature Granulocyte % (Auto) 0 % Neutrophils (%) (Auto) 58 42-75 % Lymphocytes (%) (Auto) 29 12-44 % Monocytes (%) (Auto) 10 0-12 % Eosinophils (%) (Auto) 2 0-10 % Basophils (%) (Auto) 1 0-10 % Neutrophils # (Auto) 3.5 1.8-7.8 10^3/uL Lymphocytes # (Auto) 1.7 1.0-4.0 10^3/uL Monocytes # (Auto) 0.6 0.0-1.0 10^3/uL Eosinophils # (Auto) 0.1 0.0-0.3 10^3/uL Basophils # (Auto) 0.1 0.0-0.1 10^3/uL Immature Granulocyte # (Auto) 0.0 0.0-0.1 10^3/uL Prothrombin Time 13.9 12.2-14.7 SEC INR Comment 1.1 0.8-1.4 Activated Partial Thromboplast Time 29 24-35 SEC D-Dimer 1.09 H 0.00-0.49 UG/ML Sodium Level 143 135-145 MMOL/L Potassium Level 3.6 3.6-5.0 MMOL/L Chloride Level 106 98-107 MMOL/L Carbon Dioxide Level 25 21-32 MMOL/L Anion Gap 12 5-14 MMOL/L Blood Urea Nitrogen 9 7-18 MG/DL Creatinine 0.81 0.60-1.30 MG/DL Estimat Glomerular Filtration Rate 96 BUN/Creatinine Ratio 11 Glucose Level 121 H 70-105 MG/DL Calcium Level 8.7 8.5-10.1 MG/DL Corrected Calcium 9.3 8.5-10.1 MG/DL Magnesium Level 1.9 1.6-2.4 MG/DL Total Bilirubin 0.3 0.1-1.0 MG/DL Aspartate Amino Transf (AST/SGOT) 23 5-34 U/L Alanine Aminotransferase (ALT/SGPT) 17 0-55 U/L Alkaline Phosphatase 101 40-136 U/L Ammonia 31 11-32 UMOL/L Total Creatine Kinase 66 30-200 U/L Creatine Kinase MB 1.5 <6.6 NG/ML Myoglobin 34.4 10.0-92.0 NG/ML Troponin I < 0.028 <0.028 NG/ML C-Reactive Protein High Sensitivity 0.25 0.00-0.50 MG/DL Total Protein 6.5 6.4-8.2 GM/DL Albumin 3.2 3.2-4.5 GM/DL Amylase Level 53 25-125 U/L Lipase 143 H 8-78 U/L Serum Alcohol 13 H <10 MG/DL Glucometer 112 H 70-110 MG/DL Influenza Type A (RT-PCR) Not Detected Not Detecte Influenza Type B (RT-PCR) Not Detected Not Detecte SARS-CoV-2 RNA (RT-PCR) Not Detected Not Detecte My Orders Orders - TIMI MATTSON DO Ed Iv/Invasive Line Start (04/02/23 18:04) Ekg Tracing (04/02/23 18:04) Monitor-Rhythm Ecg Trace Only (04/02/23 18:04) Chest 1 View, Ap/Pa Only (04/02/23 18:04) Alcohol (04/02/23 18:04) Ammonia (04/02/23 18:04) Cbc With Automated Diff (04/02/23 18:04) Comprehensive Metabolic Panel (04/02/23 18:04) Creatine Kinase (04/02/23 18:04) Creatine Kinase Mb (04/02/23 18:04) Hs C Reactive Protein (04/02/23 18:04) Fibrin Degradation Products (04/02/23 18:04) Drug Screen Stat (Urine) (04/02/23 18:04) Lipase (04/02/23 18:04) Magnesium (04/02/23 18:04) Protime With Inr (04/02/23 18:04) Partial Thromboplastin Time (04/02/23 18:04) Ua Culture If Indicated (04/02/23 18:04) Myoglobin Serum (04/02/23 18:04) Troponin I Marina (04/02/23 18:04) Ed Iv/Invasive Line Start (04/02/23 18:04) Lactated Ringers (Lr 1000 Ml Iv Solution (04/02/23 18:15) Amylase (04/02/23 18:05) Lipase (04/02/23 18:05) Ct Head/Face/Cervical Wo (04/02/23 18:09) Accucheck Stat ONCE (04/02/23 18:10) Covid 19 Inhouse Test (04/02/23 18:16) Influenza A And B By Pcr (04/02/23 18:16) Ct Angio Head/Neck (04/02/23 19:16) Ed Iv/Invasive Line Start (04/02/23 19:29) Lactated Ringers (Lr 1000 Ml Iv Solution (04/02/23 19:30) Ct Mylene Chest/Noang Abd-Pelv W (04/02/23 19:16) Iohexol Injection (Omnipaque 350 Mg/Ml 1 (04/02/23 20:00) Received Contrast (Hold Metformin- Contr (04/02/23 20:00) Ns (Ivpb) 100 Ml (Sodium Chloride 0.9% 1 (04/02/23 20:00) Iohexol Injection (Omnipaque 350 Mg/Ml 1 (04/02/23 20:00) Received Contrast (Hold Metformin- Contr (04/02/23 20:00) Ns (Ivpb) 100 Ml (Sodium Chloride 0.9% 1 (04/02/23 20:00) Medications Given in ED Current Medications Medications Dose Ordered Sig/Isabell Route Start Time Stop Time Status Last Admin Dose Admin Iohexol 100 ml ONCE ONCE IV 04/02/23 20:00 04/02/23 20:01 DC 04/02/23 20:05 61 ML Iohexol 100 ml ONCE ONCE IV 04/02/23 20:00 04/02/23 20:01 DC 04/02/23 20:05 75 ML Lactated Ringer's 1,000 ml @ 0 mls/hr Q0M ONCE IV 04/02/23 18:15 04/02/23 18:16 DC 04/02/23 18:32 1,000 MLS/HR Lactated Ringer's 1,000 ml @ 0 mls/hr Q0M ONCE IV 04/02/23 19:30 04/02/23 19:32 DC 04/02/23 19:43 0 MLS/HR Sodium Chloride 100 ml ONCE ONCE IV 04/02/23 20:00 04/02/23 20:01 DC 04/02/23 20:05 80 ML Sodium Chloride 100 ml ONCE ONCE IV 04/02/23 20:00 04/02/23 20:01 DC 04/02/23 20:05 80 ML Vital Signs/I&O 04/02/23 18:00 Temp 37.6 Pulse 90 Resp 17 B/P (MAP) 125/80 (95) Capillary Refill : Blood Pressure Mean: 95 Progress Note : Progress Note ACCUCHECK 112 VITALS ON ARRIVAL: TEMP 37.6=99.6, HR90, RR 17, BP 125/80, O2 SAT 96% ON ROOM AIR GIVEN:- -IV FLUIDS LABS: -CBC UNREMARKABLE -CMP UNREMARKABLE -TROPONIN NEGATIVE -LIPASE 146 -PT/PTT/INR 13.9/29/1.1 -D-DIMER 1.90 -COVID/FLU NEGATIVE -ETOH 13 EKG IS NORMAL CXR BIBASILAR ATELECTASIS/INFILTRATE CT HEAD SHOWS NO ACUTE PROCESS CT ANGIOGRAM HEAD/NECK ECG Initial ECG Impression Date: Apr 02, 2023 Initial ECG Impression Time: 18:25 Initial ECG Rate: 84 Initial ECG Rhythm: Normal Sinus Initial ECG Intervals: Normal Initial ECG Comparisson: Unchanged Comment INTERPRETED BY ME Diagnostic Imaging Comments CXR--PER RADIOLOGIST REPORT AT 1917 COMPARISON: 03/22/2023. FINDINGS: Hyperinflation. Cardiomegaly with normal central pulmonary vascularity. Persistent perihilar and bibasilar atelectasis or infiltrate. No pleural effusion or pneumothorax. No acute osseous finding. Postoperative changes in the spine. IMPRESSION: . 1. COPD. 2. Persistent perihilar and bibasilar atelectasis or infiltrate. CT HEAD/MAXILLOFACIALS/CERVICAL SPINE--PER RADIOLOGIST REPORT AT 1917 Comparison: CT head and cervical spine March 22, 2023. Findings: The temporomandibular joints are normally aligned. The mandible is intact. There is no identified acute displaced nasal bone fracture. There is a mild chronic appearing left nasal bone deformity. There is no identified acute maxillofacial bone fracture. There is nonspecific opacification in the right middle ear. There is no air-fluid level in the paranasal sinuses. There is a small polypoid lesion in the right maxillary sinus which may reflect a small mucous retention cyst. The globes are grossly intact. There is no retro-orbital hematoma. There are areas of low-attenuation in the subcortical and periventricular white matter which are nonspecific but most likely reflect mild findings of chronic small vessel ischemic disease. There is no hydrocephalus. There is no prominent cerebral volume loss. There is no identified abnormal extra-axial fluid collection. There is no evidence of an acute intracranial hemorrhage. There is no mass effect or midline shift. There is no identified skull fracture. There is no identified facet joint subluxation or dislocation. There is no pronounced facet arthritis of the cervical spine. There is multilevel anterior cervical spine fusion hardware which spans C3-C5 and C6-C7. There is a posterior disc osteophyte complex at C2-C3. Head CT is limited for assessment of disc pathology as well as additional non-bony causes of pathology in the spinal canal. There is prominent osteophyte formation and/or heterotopic ossification adjacent to the anterior aspect of the C2-C3 disc space and also at C7-T1. There is no identified acute fracture of the cervical spine. There are upper lobe findings of emphysema with pleural parenchymal scarring in the lung apices. Impression: 1. No identified acute intracranial abnormality. 2. Mild findings of chronic small vessel ischemic disease. 3. No identified acute maxillofacial bone fracture. 4. Nonspecific opacification in the right middle ear. 5. No identified acute fracture of the cervical spine. 6. Cervical spine hardware and degenerative changes of the cervical spine, as above. Reviewed: Reviewed by Me Departure Impression Primary Impression: SELF REPORTED SYNCOPAL EPISODE Additional Impressions: Minor head injury Alcoholism Homeless Departure-Patient Inst. Referrals: [facility] (PCP/Family) Primary Care Physician TIMI MATTSON DO Apr 02, 2023 18:09
[2023-04-02 18:14] LABS: BASOPHILS # (AUTO) 0.1 10^3/uL (0.0-0.1); BASOPHILS % (AUTO) 1 % (0-10); EOSINOPHILS # (AUTO) 0.1 10^3/uL (0.0-0.3); EOSINOPHILS % (AUTO) 2 % (0-10); HEMATOCRIT 44 % (40-54); HEMOGLOBIN 14.4 g/dL (13.3-17.7); LYMPHOCYTES # (AUTO) 1.7 10^3/uL (1.0-4.0); LYMPHOCYTES % (AUTO) 29 % (12-44); MEAN CORPUSCULAR HEMOGLOBIN 34 pg (25-34); MEAN CORPUSCULAR HGB CONC 33 g/dL (32-36); MEAN CORPUSCULAR VOLUME 103 fL (80-99); MEAN PLATELET VOLUME 8.6 fL (9.0-12.2); MONOCYTES # (AUTO) 0.6 10^3/uL (0.0-1.0); MONOCYTES % (AUTO) 10 % (0-12); NEUTROPHILS # (AUTO) 3.5 10^3/uL (1.8-7.8); NEUTROPHILS % (AUTO) 58 % (42-75); PLATELET COUNT 303 10^3/uL (130-400)
[2023-04-02] MEDS ORDERED: LACTATED RINGERS 1,000 ML 1,000 ML IV ONE ×2 (18:15→19:30)
[2023-04-02 18:23] LABS: ALBUMIN 3.2 GM/DL (3.2-4.5); CHLORIDE 106 MMOL/L (98-107); POTASSIUM 3.6 MMOL/L (3.6-5.0); SODIUM 143 MMOL/L (135-145)
[2023-04-02 18:24] LABS: AMYLASE 53 U/L (25-125); CALCIUM 8.7 MG/DL (8.5-10.1)
[2023-04-02 18:25] LABS: AMMONIA 31 UMOL/L (11-32); GLUCOSE 121 MG/DL (70-105); TOTAL PROTEIN 6.5 GM/DL (6.4-8.2)
[2023-04-02 18:26] LABS: CARBON DIOXIDE 25 MMOL/L (21-32)
[2023-04-02 18:27] LABS: BILIRUBIN,TOTAL 0.3 MG/DL (0.1-1.0); INR 1.1 (0.8-1.4); PROTHROMBIN TIME PATIENT 13.9 SEC (12.2-14.7)
[2023-04-02 18:29] LABS: ALKALINE PHOSPHATASE 101 U/L (40-136); CREATININE SERUM 0.81 MG/DL (0.60-1.30); GFR ESTIMATED 96
[2023-04-02 18:30] LABS: BUN/CREATININE RATIO 11; FIBRIN DEGRADATION PRODUCTS 1.09 UG/ML (0.00-0.49)
[2023-04-02 18:32] LABS: ALANINE AMINOTRANSFERASE 17 U/L (0-55); MAGNESIUM 1.9 MG/DL (1.6-2.4)
[2023-04-02 18:33] LABS: CREATINE KINASE 66 U/L (30-200); LIPASE 146 U/L (8-78)
[2023-04-02 18:41] LABS: CREATINE KINASE MB 1.5 NG/ML (<6.6)
--- NOTE | 2023-04-02 18:59 | Diagnostic Imaging Report ---
EXAM: Chest 1 view, AP/PA only INDICATION: Syncope. Dizziness. Multiple falls. COMPARISON: 03/22/2023. FINDINGS: Hyperinflation. Cardiomegaly with normal central pulmonary vascularity. Persistent perihilar and bibasilar atelectasis or infiltrate. No pleural effusion or pneumothorax. No acute osseous finding. Postoperative changes in the spine. IMPRESSION: . 1. COPD. 2. Persistent perihilar and bibasilar atelectasis or infiltrate. Dictated by: Dictated on workstation # [id number]
--- NOTE | 2023-04-02 19:13 | Diagnostic Imaging Report ---
PROCEDURE: CT head, face, and cervical spine without contrast. TECHNIQUE: Multiple contiguous axial images were obtained through the head, neck, and facial bones without the use of intravenous contrast. Sagittal and coronal reformations through the cervical spine and facial bones were also performed. Auto Exposure Controls were utilized during the CT exam to meet ALARA standards for radiation dose reduction. Date: April 02, 2023. Indication: 68-year-old male, multiple falls, head, face, neck pain. Dizziness and syncope. Comparison: CT head and cervical spine March 22, 2023. Findings: The temporomandibular joints are normally aligned. The mandible is intact. There is no identified acute displaced nasal bone fracture. There is a mild chronic appearing left nasal bone deformity. There is no identified acute maxillofacial bone fracture. There is nonspecific opacification in the right middle ear. There is no air-fluid level in the paranasal sinuses. There is a small polypoid lesion in the right maxillary sinus which may reflect a small mucous retention cyst. The globes are grossly intact. There is no retro-orbital hematoma. There are areas of low-attenuation in the subcortical and periventricular white matter which are nonspecific but most likely reflect mild findings of chronic small vessel ischemic disease. There is no hydrocephalus. There is no prominent cerebral volume loss. There is no identified abnormal extra-axial fluid collection. There is no evidence of an acute intracranial hemorrhage. There is no mass effect or midline shift. There is no identified skull fracture. There is no identified facet joint subluxation or dislocation. There is no pronounced facet arthritis of the cervical spine. There is multilevel anterior cervical spine fusion hardware which spans C3-C5 and C6-C7. There is a posterior disc osteophyte complex at C2-C3. Head CT is limited for assessment of disc pathology as well as additional non-bony causes of pathology in the spinal canal. There is prominent osteophyte formation and/or heterotopic ossification adjacent to the anterior aspect of the C2-C3 disc space and also at C7-T1. There is no identified acute fracture of the cervical spine. There are upper lobe findings of emphysema with pleural parenchymal scarring in the lung apices. Impression: 1. No identified acute intracranial abnormality. 2. Mild findings of chronic small vessel ischemic disease. 3. No identified acute maxillofacial bone fracture. 4. Nonspecific opacification in the right middle ear. 5. No identified acute fracture of the cervical spine. 6. Cervical spine hardware and degenerative changes of the cervical spine, as above. Dictated by: Dictated on workstation # [id number]
[2023-04-02] MEDS ORDERED: HOLD METFORMIN - RECEIVED CONTRAST 20 ML VIAL IV SCH ×2 (20:00)
[2023-04-02] MEDS ORDERED: NS 100 ML (IVPB) BAG IV ONE ×2 (20:00)
[2023-04-02] MEDS ORDERED: IOHEXOL 350 MG/ML 100 ML (OMNIPAQUE 350) VIAL IV ONE ×2 (20:00)
[2023-04-02 20:38] LABS: CLARITY,URINE CLEAR; COLOR,URINE YELLOW; GLUCOSE, URINE (UA) NEGATIVE (NEGATIVE); PH,URINE 5.5 (5-9); PROTEIN,URINE NEGATIVE (NEGATIVE)
[2023-04-02 20:39] LABS: AMORPHOUS SEDIMENT,UR RARE AMOR URATES /LPF; BACTERIA,URINE TRACE /HPF; BILIRUBIN,URINE NEGATIVE (NEGATIVE); KETONES,URINE NEGATIVE (NEGATIVE); LEUKOCYTE ESTERASE ,URINE NEGATIVE (NEGATIVE); NITRITE,URINE NEGATIVE (NEGATIVE); RBC,URINE 0-2 /HPF; WBC,URINE 0-2 /HPF
[2023-04-02 20:42] LABS: AMPHETAMINE SCREEN, URINE NEGATIVE (NEGATIVE); BARBITURATE SCREEN URINE NEGATIVE (NEGATIVE); BENZODIAZEPINES SCREEN URINE NEGATIVE (NEGATIVE); CANNABINOID SCREEN, URINE NEGATIVE (NEGATIVE); COCAINE SCREEN URINE NEGATIVE (NEGATIVE); METHADONE STAT NEGATIVE (NEGATIVE); OPIATE SCREEN URINE NEGATIVE (NEGATIVE); OXYCODONE STAT NEGATIVE (NEGATIVE); PROPOXYPHENE STAT NEGATIVE (NEGATIVE); TRICYCLIC ANTIDEPRESSANTS SCRE NEGATIVE (NEGATIVE)
--- NOTE | 2023-04-02 20:45 | Diagnostic Imaging Report ---
PROCEDURE: CT angiography of the head and CT angiography of the neck with and without contrast. TECHNIQUE: Contiguous noncontrast images were obtained from the skull base through the vertex. After intravenous contrast administration, helical CT angiography of the neck was performed. Source data was reformatted into 3D MIP projections. Delayed post contrast acquisition was also obtained. Auto Exposure Controls were utilized during the CT exam to meet ALARA standards for radiation dose reduction. INDICATION: Syncope. Dizziness. Trauma. Multiple falls. COMPARISON: CT head without contrast 04/02/2023. FINDINGS: Postcontrast head CT continues to demonstrate no evidence of large territorial infarction or hemorrhage. No hydrocephalus or extra-axial fluid collection. No abnormal intracranial enhancement. CTA demonstrates conventional aortic arch. Mild scattered atherosclerotic calcifications. The basilar, bilateral vertebral, common carotid, internal carotid, anterior cerebral, middle cerebral and posterior cerebral arteries demonstrate no high-grade narrowing, aneurysm or dissection. The dural venous sinuses are normally opacified. Anterior fusion at C3-C7. No evidence of hardware failure. No acute appearing osseous finding. The paranasal sinuses and mastoids are unremarkable. There is only minimal mucosal thickening in the right maxillary sinus. No acute finding in the visualized paravertebral soft tissues. Emphysematous changes in the lung apices. IMPRESSION: No large vessel occlusion. No high-grade narrowing, aneurysm or dissection involving the major arteries in the head and neck. Dictated by: Dictated on workstation # [id number]
--- NOTE | 2023-04-02 20:56 | Diagnostic Imaging Report ---
EXAM: CT angiogram of the chest. CT abdomen and pelvis with contrast. 3D reconstructions including MIPs of the angiographic images were performed and reviewed. INDICATION: Dizziness. Syncope. Elevated D-dimer. Trauma. Multiple falls. COMPARISON: CTA chest, abdomen and pelvis 03/22/2023. FINDINGS: CTA CHEST: No pulmonary artery filling defect. No thoracic aortic aneurysm dissection. Normal heart size. No mediastinal, hilar or axillary lymphadenopathy. Advanced emphysema. No focal pulmonary opacity. No pleural effusion or pneumothorax. No acute osseous finding. CT ABDOMEN/PELVIS: Cholecystectomy. The liver, pancreas, spleen, adrenals, kidneys, collecting systems and bladder demonstrate no acute finding. No free intraperitoneal air or fluid. No lymphadenopathy. No evidence of bowel obstruction. Postoperative changes at T10-L5 are similar to the prior exam including osteolysis about the bilateral T10 pedicle screws suggesting early loosening. Hardware components are intact. No acute appearing osseous finding. IMPRESSION: 1. No pulmonary emboli. 2. Severe emphysema. No focal pulmonary opacity. 3. No acute CT finding in the abdomen or pelvis. 4. Stable postoperative changes in the thoracic and lumbar spine. There is osteolysis about the bilateral T10 pedicle screw suggesting early loosening. Dictated by: Dictated on workstation # [id number]
--- NOTE | 2023-04-02 22:53 | Tele-ICU Progress Note ---
Subjective Date Seen by a Provider: Apr 02, 2023 Subjective/Events-last exam This virtual visit was conducted using real time audio/video. Thank you for asking us to see this patient for critical care services due to syncope and head injury. ICU bed requested by admitting MD per Dr. Chavez in ED. Recent events: recently treated for acute panc. PMH: Homeless, alcoholic with multiple admissions. PE: VSS. O2 sat 96% on RA HEENT: No obvious masses, adenopathy or JVD. Chest: clear to auscultation. CV: RRR S1 S2 No murmur or added sounds. Abd: Non-tender. Bowel sounds Y. : Unremarkable. Parada N. DYNAMO TENDER/psychiatric: Grossly intact. No obvious focal findings. Extremities: No edema. Capillary refill < 3 seconds. Skin: unremarkable. Results: CXR: hyperinflated. CTH negative for acute process.. Available chart/ vitals / labs / images reviewed. Video assessment done using teleICU camera, rest of exam as per RN. A/P: Critical Care: Cont. IVF, monitor for alcohol withdrawal. Discussed with OMER Santana and Dr. Chavez. Asked RN to reach out to eICU if any questions or concerns later. Time spent with patient/coordination of care with other health professionals (mins): 15 Sepsis Event Evaluation Height, Weight, BMI Height: 5'6.00" Weight: 130lbs. 2.0oz. [id number]; 22.30 BMI Method:Stated Exam Exam Patient acknowledged, consented, and participated in this virtual visit which was conducted using real time audio/video Vital Signs Date Time Temp Pulse Resp B/P (MAP) Pulse Ox O2 Delivery O2 Flow Rate FiO2 04/02/23 18:00 37.6 90 17 125/80 (95) Height & Weight Height: 5'6.00" Weight: 130lbs. 2.0oz. [id number]; 22.30 BMI Method:Stated General Appearance: No Apparent Distress, WD/WN, Other (FILTHY, UNKEMPT, MALODOROUS. 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 Critical Care: Critically Ill Patient BRANDON VIEIRA MD Apr 02, 2023 22:53
[2023-04-02] MEDS ORDERED: MELATONIN 3 MG TABLET PO PRN (23:30)
[2023-04-02] MEDS ORDERED: 1/2 NS IV SOLUTION 1000 ML 1,000 ML IV PRN (23:30)
[2023-04-02] MEDS ORDERED: LORazepam 1 MG TABLET PO PRN (23:30)
[2023-04-02] MEDS ORDERED: ONDANSETRON 4 MG ORAL DISSOLVE TABLET PO PRN (23:30)
[2023-04-02] MEDS ORDERED: ONDANSETRON INJECTION 4 MG/2 ML (SDV) IV PRN (23:30)
[2023-04-02] MEDS ORDERED: D5 1/2 NS 1,000 ML IV 1,000 ML IV PRN (23:30)
[2023-04-02] MEDS ORDERED: CALCIUM CARBONATE 500 MG CHEW TABLET PO PRN (23:30)
[2023-04-03 00:23] LABS: INR 1.1 (0.8-1.4); PROTHROMBIN TIME PATIENT 14.3 SEC (12.2-14.7)
[2023-04-03] MEDS ORDERED: ACETAMINOPHEN 325 MG TABLET ONE (00:26)
[2023-04-03] MEDS: ACETAMINOPHEN 325 MG TABLET PO PRN (00:29)
[2023-04-03 00:44] LABS: BACTERIA,URINE NEGATIVE /HPF; BILIRUBIN,URINE NEGATIVE (NEGATIVE); CLARITY,URINE CLEAR; COLOR,URINE YELLOW; GLUCOSE, URINE (UA) NEGATIVE (NEGATIVE); KETONES,URINE NEGATIVE (NEGATIVE); LEUKOCYTE ESTERASE ,URINE NEGATIVE (NEGATIVE); NITRITE,URINE NEGATIVE (NEGATIVE); PH,URINE 5.5 (5-9); PROTEIN,URINE NEGATIVE (NEGATIVE)
[2023-04-03 00:45] LABS: WBC,URINE RARE /HPF
[2023-04-03] MEDS ORDERED: NS IV 500 ML 500 ML IV PRN (02:00)
[2023-04-03 05:09] LABS: BASOPHILS # (AUTO) 0.1 10^3/uL (0.0-0.1); BASOPHILS % (AUTO) 1 % (0-10); EOSINOPHILS # (AUTO) 0.1 10^3/uL (0.0-0.3); EOSINOPHILS % (AUTO) 2 % (0-10); HEMATOCRIT 40 % (40-54); HEMOGLOBIN 13.3 g/dL (13.3-17.7); LYMPHOCYTES # (AUTO) 1.5 10^3/uL (1.0-4.0); LYMPHOCYTES % (AUTO) 33 % (12-44); MEAN CORPUSCULAR HEMOGLOBIN 33 pg (25-34); MEAN CORPUSCULAR HGB CONC 33 g/dL (32-36); MEAN CORPUSCULAR VOLUME 101 fL (80-99); MONOCYTES # (AUTO) 0.6 10^3/uL (0.0-1.0); MONOCYTES % (AUTO) 12 % (0-12); NEUTROPHILS # (AUTO) 2.5 10^3/uL (1.8-7.8); NEUTROPHILS % (AUTO) 52 % (42-75); PLATELET COUNT 259 10^3/uL (130-400); WHITE BLOOD COUNT 4.7 10^3/uL (4.3-11.0)
[2023-04-03 05:29] LABS: ALBUMIN 2.7 GM/DL (3.2-4.5); BILIRUBIN,TOTAL 0.5 MG/DL (0.1-1.0); CALCIUM 7.9 MG/DL (8.5-10.1); CREATININE SERUM 0.73 MG/DL (0.60-1.30); POTASSIUM 2.9 MMOL/L (3.6-5.0); TOTAL PROTEIN 5.5 GM/DL (6.4-8.2)
[2023-04-03] MEDS ORDERED: POTASSIUM CHLORIDE 20 MEQ TABLET PO SCH (06:00)
[2023-04-03] MEDS ORDERED: MAGNESIUM 1 GM/100 ML IVPB 100 ML IV SCH (06:00)
[2023-04-03] MEDS ORDERED: POTASSIUM CL 10MEQ/50ML IVPB 50 ML IV SCH (06:00)
[2023-04-03] MEDS ORDERED: MAGNESIUM 1 GM/100 ML IVPB 400 ML IV ONE (06:20)
[2023-04-03] MEDS ORDERED: POTASSIUM CL 10MEQ/50ML IVPB 400 ML IV ONE (06:20)
[2023-04-03] MEDS: MAGNESIUM 1 GM/100 ML IVPB 100 ML IV SCH ×4 (06:29→09:48)
[2023-04-03] MEDS: POTASSIUM CL 10MEQ/50ML IVPB 50 ML IV SCH ×7 (06:29→12:48)
[2023-04-03] MEDS: THIAMINE 100 MG (VITAMIN B-1) TAB PO SCH (06:51)
[2023-04-03] MEDS: THERAPEUTIC MULTIVITAMIN W/MINERALS TABLET PO SCH (06:51)
[2023-04-03] MEDS: ENOXAPARIN 40 MG/0.4 ML SYRINGE SC SCH (08:26)
[2023-04-03] MEDS: FOLIC ACID 1 MG TAB PO SCH (08:26)
--- NOTE | 2023-04-03 08:34 | History & Physical ---
HPI History of Present Illness: 68 yo male, recently discharged after an episode of acute alcoholic pancreatitis. He states he fainted when he was walking into the garage, he isn't able to describe it well, but when asked if he had dizziness, he says yes, but "I don't know" to what the symptoms were. He did feel palpitations, denies chest pain. He doesn't think he has passed out before. He did hit his head. He reports he was eating and drinking normally yesterday. Admits diarrhea for "too long" probably a couple of months. Denies fever, earache, hearing loss. He reports he drinks a shot of alcohol most days, last drink a couple of days ago. Source: patient Date seen by provider: Apr 03, 2023 Time Seen by Provider: 08:31 Attending Physician [facility] PCP Admitting Physician: Denisa Escalona MD Attending Physician: Denisa Escalona MD Consult Date of Admission Apr 02, 2023 at 21:36 Home Medications Home Medications Reviewed patient Home Medication Reconciliation performed by pharmacy medication reconciliations perinatal technician and/or nursing. Patients Allergies have been reviewed. Allergies Coded Allergies: ibuprofen (Verified Adverse Reaction, Unknown, Hypertension, pt has rec ASA in the past, 11/05/21) HYPERTENSION tramadol (Verified Adverse Reaction, Unknown, VOMIT, 10/03/18) ZZB-Iewsim-Pcpzcu Hx Patient Social History Drug of Choice: denies Smoking Status: Current Everyday Smoker (3 cigarettes per day) 2nd Hand Smoke Exposure: Yes Recent Hopitalizations: No Alcohol Use?: Yes (states he has to drink because "no one will give me pain medicine for my back", reports 1 shot per day) Tobacco type used: Cigarettes Immunizations Up To Date Tetanus Booster (TDap): Unknown Influenza Vaccine Up-to-Date: Yes; Up-to-Date First/Initial COVID19 Vaccinat: 09/2021 Second COVID19 Vaccination Jl: 10/2021 Third COVID19 Vaccination Date: 09/2021 COVID19 Vaccine Dental Claims Processor: UNKNOWN Past Medical History PMHx: Denies SurgHx: Back surgery x 3 Neck surgery x 3 Cholecystectomy Appendectomy Rotator cuff repair left Family Medical History Significant Family History: Cancer, Stroke Other Significan Family Hx: LONG HISTORY OF EXTREME NON-COMPLIANCE IN ALL ASPECTS OF CARE PT IS HOMELESS, AND HAS BEEN FOR A LONG TIME SOCIAL HISTORY: -SMOKES 2-3 PPD -ETOH--ABUSE/DAILY USE--ALSO DRINKS LARGE AMOUNTS OF NYQUIL DAILY; WITH HISTORY OF ALCOHOL WITHDRAWL SYMPTOMS -DRUGS-EXTENSIVE POLYSUBSTANCE ABUSE AND OVERDOSES--ESPECIALLY XANAX/BENZODIAZEPINES AND NARCOTICS/OPIATES; METHAMPHETAMINES -HAS HAD A MULTITUDE OF ACCIDENTS DUE TO SUBSTANCE ABUSE, HISTORY OF GETTING MULTIPLE RX'S FROM MULTIPROVIDERS USING MULTIPLE PHARMACIES; -HAS BEEN EVICTED FROM MULTIPLE REHAB /SUBSTANCE ABUSE TREATMENT FACILITIES, INCLUDING [facility], FOR EXTREME NON-COMPLIANCE. 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 % Family History: Cancer 03 FATHER (PROSTATE) 03 MOTHER (BREAST CA ) 09 BROTHER (THROAT/PANCREATIC) 09 SISTER (LIVER) DEAFNESS 03 FATHER 09 BROTHER Family history: Breast disease 03 MOTHER (BREAST CA) History of - respiratory disease Prostate cancer 03 FATHER Stroke 03 MOTHER Visual impairment Review of Systems ([facility]) Constitutional: No fever EENTM: No nose congestion, No throat pain Respiratory: cough (reports chronic) Cardiovascular: No chest pain Gastrointestinal: abdominal pain (reports chronic), diarrhea; No nausea, No vomiting Genitourinary: No dysuria Musculoskeletal: back pain, joint pain Skin: No rash Reviewed Test Results Reviewed Test Results Lab Laboratory Tests Test 04/02/23 18:06 04/02/23 18:13 04/02/23 18:17 04/02/23 20:20 Range/Units White Blood Count 6.0 4.3-11.0 10^3/uL Red Blood Count 4.24 L 4.30-5.52 10^6/uL Hemoglobin 14.4 13.3-17.7 g/dL Hematocrit 44 40-54 % Mean Corpuscular Volume 103 H 80-99 fL Mean Corpuscular Hemoglobin 34 25-34 pg Mean Corpuscular Hemoglobin Concent 33 32-36 g/dL Red Cell Distribution Width 13.5 10.0-14.5 % Platelet Count 303 130-400 10^3/uL Mean Platelet Volume 8.6 L 9.0-12.2 fL Immature Granulocyte % (Auto) 0 % Neutrophils (%) (Auto) 58 42-75 % Lymphocytes (%) (Auto) 29 12-44 % Monocytes (%) (Auto) 10 0-12 % Eosinophils (%) (Auto) 2 0-10 % Basophils (%) (Auto) 1 0-10 % Neutrophils # (Auto) 3.5 1.8-7.8 10^3/uL Lymphocytes # (Auto) 1.7 1.0-4.0 10^3/uL Monocytes # (Auto) 0.6 0.0-1.0 10^3/uL Eosinophils # (Auto) 0.1 0.0-0.3 10^3/uL Basophils # (Auto) 0.1 0.0-0.1 10^3/uL Immature Granulocyte # (Auto) 0.0 0.0-0.1 10^3/uL Prothrombin Time 13.9 12.2-14.7 SEC INR Comment 1.1 0.8-1.4 Activated Partial Thromboplast Time 29 24-35 SEC D-Dimer 1.09 H 0.00-0.49 UG/ML Sodium Level 143 135-145 MMOL/L Potassium Level 3.6 3.6-5.0 MMOL/L Chloride Level 106 98-107 MMOL/L Carbon Dioxide Level 25 21-32 MMOL/L Anion Gap 12 5-14 MMOL/L Blood Urea Nitrogen 9 7-18 MG/DL Creatinine 0.81 0.60-1.30 MG/DL Estimat Glomerular Filtration Rate 96 BUN/Creatinine Ratio 11 Glucose Level 121 H 70-105 MG/DL Calcium Level 8.7 8.5-10.1 MG/DL Corrected Calcium 9.3 8.5-10.1 MG/DL Magnesium Level 1.9 1.6-2.4 MG/DL Total Bilirubin 0.3 0.1-1.0 MG/DL Aspartate Amino Transf (AST/SGOT) 23 5-34 U/L Alanine Aminotransferase (ALT/SGPT) 17 0-55 U/L Alkaline Phosphatase 101 40-136 U/L Ammonia 31 11-32 UMOL/L Total Creatine Kinase 66 30-200 U/L Creatine Kinase MB 1.5 <6.6 NG/ML Myoglobin 34.4 10.0-92.0 NG/ML Troponin I < 0.028 <0.028 NG/ML C-Reactive Protein High Sensitivity 0.25 0.00-0.50 MG/DL Total Protein 6.5 6.4-8.2 GM/DL Albumin 3.2 3.2-4.5 GM/DL Amylase Level 53 25-125 U/L Lipase 143 H 8-78 U/L Serum Alcohol 13 H <10 MG/DL Glucometer 112 H 70-110 MG/DL Influenza Type A (RT-PCR) Not Detected Not Detecte Influenza Type B (RT-PCR) Not Detected Not Detecte SARS-CoV-2 RNA (RT-PCR) Not Detected Not Detecte Urine Color YELLOW Urine Clarity CLEAR Urine pH 5.5 5-9 Urine Specific [place] 1.010 L 1.016-1.022 Urine Protein NEGATIVE NEGATIVE Urine Glucose (UA) NEGATIVE NEGATIVE Urine Ketones NEGATIVE NEGATIVE Urine Nitrite NEGATIVE NEGATIVE Urine Bilirubin NEGATIVE NEGATIVE Urine Urobilinogen 0.2 < = 1.0 MG/DL Urine Leukocyte Esterase NEGATIVE NEGATIVE Urine RBC (Auto) NEGATIVE NEGATIVE Urine RBC 0-2 /HPF Urine WBC 0-2 /HPF Urine Squamous Epithelial Cells 2-5 /HPF Urine Crystals PRESENT H /LPF Urine Amorphous Sediment RARE [place] URATES H /LPF Urine Bacteria TRACE /HPF Urine Casts PRESENT /LPF Urine Hyaline Casts 5-10 H /LPF Urine Mucus LARGE H /LPF Urine Culture Indicated NO Urine Opiates Screen NEGATIVE NEGATIVE Urine Oxycodone Screen NEGATIVE NEGATIVE Urine Methadone Screen NEGATIVE NEGATIVE Urine Propoxyphene Screen NEGATIVE NEGATIVE Urine Barbiturates Screen NEGATIVE NEGATIVE Ur Tricyclic Antidepressants Screen NEGATIVE NEGATIVE Urine Phencyclidine Screen NEGATIVE NEGATIVE Urine Amphetamines Screen NEGATIVE NEGATIVE Urine Methamphetamines Screen NEGATIVE NEGATIVE Urine Benzodiazepines Screen NEGATIVE NEGATIVE Urine Cocaine Screen NEGATIVE NEGATIVE Urine Cannabinoids Screen NEGATIVE NEGATIVE Test 04/02/23 23:57 04/03/23 00:00 04/03/23 00:26 04/03/23 04:45 Range/Units Prothrombin Time 14.3 12.2-14.7 SEC INR Comment 1.1 0.8-1.4 Activated Partial Thromboplast Time 30 24-35 SEC Serum Alcohol < 10 <10 MG/DL HIV (1&2) Ag and Ab Screen Referral Non-Reactive Non-Reactive Urine Color YELLOW Urine Clarity CLEAR Urine pH 5.5 5-9 Urine Specific [place] <=1.005 1.016-1.022 Urine Protein NEGATIVE NEGATIVE Urine Glucose (UA) NEGATIVE NEGATIVE Urine Ketones NEGATIVE NEGATIVE Urine Nitrite NEGATIVE NEGATIVE Urine Bilirubin NEGATIVE NEGATIVE Urine Urobilinogen .2 < = 1.0 MG/DL Urine Leukocyte Esterase NEGATIVE NEGATIVE Urine RBC (Auto) NEGATIVE NEGATIVE Urine RBC NONE /HPF Urine WBC RARE /HPF Urine Crystals NONE /LPF Urine Bacteria NEGATIVE /HPF Urine Casts NONE /LPF Urine Mucus NEGATIVE /LPF Urine Culture Indicated NO Glucometer 116 H 70-110 MG/DL White Blood Count 4.7 4.3-11.0 10^3/uL Red Blood Count 3.99 L 4.30-5.52 10^6/uL Hemoglobin 13.3 13.3-17.7 g/dL Hematocrit 40 40-54 % Mean Corpuscular Volume 101 H 80-99 fL Mean Corpuscular Hemoglobin 33 25-34 pg Mean Corpuscular Hemoglobin Concent 33 32-36 g/dL Red Cell Distribution Width 13.5 10.0-14.5 % Platelet Count 259 130-400 10^3/uL Mean Platelet Volume 9.0 9.0-12.2 fL Immature Granulocyte % (Auto) 0 % Neutrophils (%) (Auto) 52 42-75 % Lymphocytes (%) (Auto) 33 12-44 % Monocytes (%) (Auto) 12 0-12 % Eosinophils (%) (Auto) 2 0-10 % Basophils (%) (Auto) 1 0-10 % Neutrophils # (Auto) 2.5 1.8-7.8 10^3/uL Lymphocytes # (Auto) 1.5 1.0-4.0 10^3/uL Monocytes # (Auto) 0.6 0.0-1.0 10^3/uL Eosinophils # (Auto) 0.1 0.0-0.3 10^3/uL Basophils # (Auto) 0.1 0.0-0.1 10^3/uL Immature Granulocyte # (Auto) 0.0 0.0-0.1 10^3/uL Sodium Level 141 135-145 MMOL/L Potassium Level 2.9 L 3.6-5.0 MMOL/L Chloride Level 106 98-107 MMOL/L Carbon Dioxide Level 26 21-32 MMOL/L Anion Gap 9 5-14 MMOL/L Blood Urea Nitrogen 9 7-18 MG/DL Creatinine 0.73 0.60-1.30 MG/DL Estimat Glomerular Filtration Rate 99 BUN/Creatinine Ratio 12 Glucose Level 96 70-105 MG/DL Calcium Level 7.9 L 8.5-10.1 MG/DL Corrected Calcium 8.9 8.5-10.1 MG/DL Magnesium Level 1.6 1.6-2.4 MG/DL Total Bilirubin 0.5 0.1-1.0 MG/DL Aspartate Amino Transf (AST/SGOT) 18 5-34 U/L Alanine Aminotransferase (ALT/SGPT) 14 0-55 U/L Alkaline Phosphatase 86 40-136 U/L Total Protein 5.5 L 6.4-8.2 GM/DL Albumin 2.7 L 3.2-4.5 GM/DL Test 04/03/23 11:46 Range/Units Glucometer 92 70-110 MG/DL Radiology CXR 04/02/23: IMPRESSION: . "1. COPD. 2. Persistent perihilar and bibasilar atelectasis or infiltrate." CT head/face/cervical spine 04/02/23: "Impression: 1. No identified acute intracranial abnormality. 2. Mild findings of chronic small vessel ischemic disease. 3. No identified acute maxillofacial bone fracture. 4. Nonspecific opacification in the right middle ear. 5. No identified acute fracture of the cervical spine. 6. Cervical spine hardware and degenerative changes of the cervical spine, as above." CTA chest 04/02/23: "IMPRESSION: 1. No pulmonary emboli. 2. Severe emphysema. No focal pulmonary opacity. 3. No acute CT finding in the abdomen or pelvis. 4. Stable postoperative changes in the thoracic and lumbar spine. There is osteolysis about the bilateral T10 pedicle screw suggesting early loosening." Head CTA 04/02/23: "IMPRESSION: No large vessel occlusion. No high-grade narrowing, aneurysm or dissection involving the major arteries in the head and neck." Physical Exam-([facility]) Physical Exam Vital Signs VS - Last 72 Hours, by Label 04/02/23 04/02/23 04/02/23 04/02/23 18:00 22:45 22:45 22:55 Temp 37.6 36.7 Pulse 90 80 Resp 17 24 20 B/P (MAP) 125/80 (95) 142/79 (100) 127/102 Pulse Ox 90 98 O2 Delivery Room Air Room Air 04/02/23 04/02/23 04/02/23 04/02/23 22:56 23:00 23:15 23:29 Pulse 80 80 79 Resp 24 11 B/P (MAP) 153/102 (119) 153/92 (112) Pulse Ox 91 92 96 O2 Delivery Room Air Room Air Room Air 04/02/23 04/02/23 04/03/23 04/03/23 23:30 23:44 00:00 01:00 Temp 37.1 Pulse 69 69 70 Resp 19 22 B/P (MAP) 135/70 (91) 131/72 (91) Pulse Ox 92 94 O2 Delivery Room Air Room Air 04/03/23 04/03/23 04/03/23 04/03/23 01:00 02:00 03:00 03:59 Pulse 72 79 64 Resp 22 18 17 B/P (MAP) 153/83 (106) 150/92 (111) 128/90 (103) Pulse Ox 97 95 93 93 O2 Delivery Room Air Room Air Room Air Room Air 04/03/23 04/03/23 04/03/23 04/03/23 04:00 04:04 05:00 06:00 Temp 36.3 Pulse 68 67 57 Resp 15 18 18 B/P (MAP) 136/80 (98) 143/90 (107) 131/79 (96) Pulse Ox 94 95 95 O2 Delivery Room Air Room Air Room Air 04/03/23 04/03/23 04/03/23 04/03/23 07:00 07:00 08:00 08:00 Temp 36.0 Pulse 58 88 60 Resp 13 16 B/P (MAP) 155/85 (127) 129/79 (101) Pulse Ox 95 O2 Delivery Room Air Room Air 04/03/23 04/03/23 04/03/23 04/03/23 08:00 09:00 10:00 11:00 Pulse 83 67 67 Resp 17 B/P (MAP) 126/80 (94) 134/80 (98) 144/102 (117) Pulse Ox 93 96 100 O2 Delivery Room Air Room Air Room Air Room Air 04/03/23 04/03/23 04/03/23 04/03/23 12:00 12:00 12:00 12:24 Temp 36.1 Pulse 69 69 B/P (MAP) 153/95 (115) Pulse Ox 93 O2 Delivery Room Air Room Air 04/03/23 14:25 Temp 36.7 Pulse 77 Resp 18 B/P (MAP) 129/79 (96) Pulse Ox 94 O2 Delivery Room Air Capillary Refill : General Appearance: WD/WN, no apparent distress HEENT: PERRL/EOMI Respiratory: lungs clear, normal breath sounds Cardiovascular: regular rate, rhythm, no murmur Gastrointestinal: normal bowel sounds, non tender, soft Extremities: no pedal edema Neurologic/Psychiatric: alert, other (patient declined to complete neuro exam, said "I'm fine" and would not complete exam after the first few cranial nerve tests) Skin: normal color, warm/dry Assessment/Plan Assessment/Plan Admission Status: Observation (1) Syncope Status: Acute Assessment & Plan: Suspect possible dehydration and hypotension. No events noted on tele overnight, CTA head and chest without acute concern. Consult Cardiology. (2) Hypokalemia Status: Acute Assessment & Plan: After admission. Replace and recheck (3) Pancreatitis Status: Acute Assessment & Plan: Recently discharged after acute episode, repeat lipase this stay still elevated, but down from discharge, monitor. Qualifiers: (4) COPD (chronic obstructive pulmonary disease) Status: Chronic Assessment & Plan: Albuterol as needed, supplemental oxygen as needed. No evidence of exacerbation. (5) Alcoholism Status: Chronic Assessment & Plan: Alcohol withdrawal protocol. (6) Chronic pain Status: Chronic (7) DVT prophylaxis Status: Acute Assessment & Plan: Enoxaparin DENISA ESCALONA MD Apr 03, 2023 08:34
[2023-04-03] MEDS: KETOROLAC INJ 30 MG/ML VIAL IVP PRN ×2 (12:45→18:50)
[2023-04-03 16:54] VITALS: BP 156/89
--- NOTE | 2023-04-03 17:41 | Consultation-Cardiology ---
HPI-Cardiology Cardiology Consultation: Date of Consultation 04/03/23 Date of Admission Attending Physician [place] Admitting Physician Admitting Physician: Denisa Escalona MD Attending Physician: Denisa Escalona MD Consulting Physician René RAMIREZ MD HPI: Time Seen by a Provider: 17:41 Chief Complaint: syncope This is a 68-year-old gentleman who presented with possible syncope. Difficult historian. Significant history of alcohol. Previous coronary angiography in 2017 did not show any obstructive coronary artery disease. Significant history of noncompliance with treatment, medications and physician follow-up. Also has history of polysubstance abuse and cigarette smoking. Review of Systems-Cardiology Review of Systems Constitutional: no symptoms reported Eyes: no symptoms reported Ears/Nose/Throat: no symptoms reported Respiratory: no symptoms reported Cardiovascular: syncope Gastrointestinal: no symptoms reported Genitourinary: no symptoms reported [id number] Hx Patient Social History Smoking Status: Current Everyday Smoker (3 cigarettes per day) 2nd Hand Smoke Exposure: Yes Alcohol Use?: Yes (states he has to drink because "no one will give me pain medicine for my back", reports 1 shot per day) Pt feels they are or have been: No Tobacco type used: Cigarettes Immunizations Up To Date Tetanus Booster (TDap): Unknown Date of Pneumonia Vaccine: Jun 05, 2020 Date of Influenza Vaccine: Jun 05, 2020 Past Medical History PMH As described under Assessment. Family Medical History Family Medical History: He does not know of any family history of premature coronary artery disease. Family History: Cancer 03 FATHER (PROSTATE) 03 MOTHER (BREAST CA ) 09 BROTHER (THROAT/PANCREATIC) 09 SISTER (LIVER) DEAFNESS 03 FATHER 09 BROTHER Family history: Breast disease 03 MOTHER (BREAST CA) History of - respiratory disease Prostate cancer 03 FATHER Stroke 03 MOTHER Visual impairment Allergies and Home Medications Allergies Coded Allergies: ibuprofen (Verified Adverse Reaction, Unknown, Hypertension, pt has rec ASA in the past, 11/05/21) HYPERTENSION tramadol (Verified Adverse Reaction, Unknown, VOMIT, 10/03/18) Patient Home Medication List Home Medication List Reviewed: Yes No Active Prescriptions or Reported Meds Exam Vital Signs Vital Signs Date Time Temp Pulse Resp B/P (MAP) Pulse Ox O2 Delivery O2 Flow Rate FiO2 04/03/23 16:54 36.9 77 16 156/89 (111) 96 Room Air Physical Exam Constitutional: No respiratory distress. Chest: Clear to auscultation bilaterally. CVS: Normal rate and rhythm. No murmur. Neuro: Nonfocal. No significant pedal edema. Labs Laboratory Tests Test 04/02/23 18:06 04/02/23 18:13 04/02/23 18:17 04/02/23 20:20 Range/Units White Blood Count 6.0 4.3-11.0 10^3/uL Red Blood Count 4.24 L 4.30-5.52 10^6/uL Hemoglobin 14.4 13.3-17.7 g/dL Hematocrit 44 40-54 % Mean Corpuscular Volume 103 H 80-99 fL Mean Corpuscular Hemoglobin 34 25-34 pg Mean Corpuscular Hemoglobin Concent 33 32-36 g/dL Red Cell Distribution Width 13.5 10.0-14.5 % Platelet Count 303 130-400 10^3/uL Mean Platelet Volume 8.6 L 9.0-12.2 fL Immature Granulocyte % (Auto) 0 % Neutrophils (%) (Auto) 58 42-75 % Lymphocytes (%) (Auto) 29 12-44 % Monocytes (%) (Auto) 10 0-12 % Eosinophils (%) (Auto) 2 0-10 % Basophils (%) (Auto) 1 0-10 % Neutrophils # (Auto) 3.5 1.8-7.8 10^3/uL Lymphocytes # (Auto) 1.7 1.0-4.0 10^3/uL Monocytes # (Auto) 0.6 0.0-1.0 10^3/uL Eosinophils # (Auto) 0.1 0.0-0.3 10^3/uL Basophils # (Auto) 0.1 0.0-0.1 10^3/uL Immature Granulocyte # (Auto) 0.0 0.0-0.1 10^3/uL Prothrombin Time 13.9 12.2-14.7 SEC INR Comment 1.1 0.8-1.4 Activated Partial Thromboplast Time 29 24-35 SEC D-Dimer 1.09 H 0.00-0.49 UG/ML Sodium Level 143 135-145 MMOL/L Potassium Level 3.6 3.6-5.0 MMOL/L Chloride Level 106 98-107 MMOL/L Carbon Dioxide Level 25 21-32 MMOL/L Anion Gap 12 5-14 MMOL/L Blood Urea Nitrogen 9 7-18 MG/DL Creatinine 0.81 0.60-1.30 MG/DL Estimat Glomerular Filtration Rate 96 BUN/Creatinine Ratio 11 Glucose Level 121 H 70-105 MG/DL Calcium Level 8.7 8.5-10.1 MG/DL Corrected Calcium 9.3 8.5-10.1 MG/DL Magnesium Level 1.9 1.6-2.4 MG/DL Total Bilirubin 0.3 0.1-1.0 MG/DL Aspartate Amino Transf (AST/SGOT) 23 5-34 U/L Alanine Aminotransferase (ALT/SGPT) 17 0-55 U/L Alkaline Phosphatase 101 40-136 U/L Ammonia 31 11-32 UMOL/L Total Creatine Kinase 66 30-200 U/L Creatine Kinase MB 1.5 <6.6 NG/ML Myoglobin 34.4 10.0-92.0 NG/ML Troponin I < 0.028 <0.028 NG/ML C-Reactive Protein High Sensitivity 0.25 0.00-0.50 MG/DL Total Protein 6.5 6.4-8.2 GM/DL Albumin 3.2 3.2-4.5 GM/DL Amylase Level 53 25-125 U/L Lipase 143 H 8-78 U/L Serum Alcohol 13 H <10 MG/DL Glucometer 112 H 70-110 MG/DL Influenza Type A (RT-PCR) Not Detected Not Detecte Influenza Type B (RT-PCR) Not Detected Not Detecte SARS-CoV-2 RNA (RT-PCR) Not Detected Not Detecte Urine Color YELLOW Urine Clarity CLEAR Urine pH 5.5 5-9 Urine Specific [place] 1.010 L 1.016-1.022 Urine Protein NEGATIVE NEGATIVE Urine Glucose (UA) NEGATIVE NEGATIVE Urine Ketones NEGATIVE NEGATIVE Urine Nitrite NEGATIVE NEGATIVE Urine Bilirubin NEGATIVE NEGATIVE Urine Urobilinogen 0.2 < = 1.0 MG/DL Urine Leukocyte Esterase NEGATIVE NEGATIVE Urine RBC (Auto) NEGATIVE NEGATIVE Urine RBC 0-2 /HPF Urine WBC 0-2 /HPF Urine Squamous Epithelial Cells 2-5 /HPF Urine Crystals PRESENT H /LPF Urine Amorphous Sediment RARE [place] URATES H /LPF Urine Bacteria TRACE /HPF Urine Casts PRESENT /LPF Urine Hyaline Casts 5-10 H /LPF Urine Mucus LARGE H /LPF Urine Culture Indicated NO Urine Opiates Screen NEGATIVE NEGATIVE Urine Oxycodone Screen NEGATIVE NEGATIVE Urine Methadone Screen NEGATIVE NEGATIVE Urine Propoxyphene Screen NEGATIVE NEGATIVE Urine Barbiturates Screen NEGATIVE NEGATIVE Ur Tricyclic Antidepressants Screen NEGATIVE NEGATIVE Urine Phencyclidine Screen NEGATIVE NEGATIVE Urine Amphetamines Screen NEGATIVE NEGATIVE Urine Methamphetamines Screen NEGATIVE NEGATIVE Urine Benzodiazepines Screen NEGATIVE NEGATIVE Urine Cocaine Screen NEGATIVE NEGATIVE Urine Cannabinoids Screen NEGATIVE NEGATIVE Test 04/02/23 23:57 04/03/23 00:00 04/03/23 00:26 04/03/23 04:45 Range/Units Prothrombin Time 14.3 12.2-14.7 SEC INR Comment 1.1 0.8-1.4 Activated Partial Thromboplast Time 30 24-35 SEC Serum Alcohol < 10 <10 MG/DL HIV (1&2) Ag and Ab Screen Referral Non-Reactive Non-Reactive Urine Color YELLOW Urine Clarity CLEAR Urine pH 5.5 5-9 Urine Specific [place] <=1.005 1.016-1.022 Urine Protein NEGATIVE NEGATIVE Urine Glucose (UA) NEGATIVE NEGATIVE Urine Ketones NEGATIVE NEGATIVE Urine Nitrite NEGATIVE NEGATIVE Urine Bilirubin NEGATIVE NEGATIVE Urine Urobilinogen .2 < = 1.0 MG/DL Urine Leukocyte Esterase NEGATIVE NEGATIVE Urine RBC (Auto) NEGATIVE NEGATIVE Urine RBC NONE /HPF Urine WBC RARE /HPF Urine Crystals NONE /LPF Urine Bacteria NEGATIVE /HPF Urine Casts NONE /LPF Urine Mucus NEGATIVE /LPF Urine Culture Indicated NO Glucometer 116 H 70-110 MG/DL White Blood Count 4.7 4.3-11.0 10^3/uL Red Blood Count 3.99 L 4.30-5.52 10^6/uL Hemoglobin 13.3 13.3-17.7 g/dL Hematocrit 40 40-54 % Mean Corpuscular Volume 101 H 80-99 fL Mean Corpuscular Hemoglobin 33 25-34 pg Mean Corpuscular Hemoglobin Concent 33 32-36 g/dL Red Cell Distribution Width 13.5 10.0-14.5 % Platelet Count 259 130-400 10^3/uL Mean Platelet Volume 9.0 9.0-12.2 fL Immature Granulocyte % (Auto) 0 % Neutrophils (%) (Auto) 52 42-75 % Lymphocytes (%) (Auto) 33 12-44 % Monocytes (%) (Auto) 12 0-12 % Eosinophils (%) (Auto) 2 0-10 % Basophils (%) (Auto) 1 0-10 % Neutrophils # (Auto) 2.5 1.8-7.8 10^3/uL Lymphocytes # (Auto) 1.5 1.0-4.0 10^3/uL Monocytes # (Auto) 0.6 0.0-1.0 10^3/uL Eosinophils # (Auto) 0.1 0.0-0.3 10^3/uL Basophils # (Auto) 0.1 0.0-0.1 10^3/uL Immature Granulocyte # (Auto) 0.0 0.0-0.1 10^3/uL Sodium Level 141 135-145 MMOL/L Potassium Level 2.9 L 3.6-5.0 MMOL/L Chloride Level 106 98-107 MMOL/L Carbon Dioxide Level 26 21-32 MMOL/L Anion Gap 9 5-14 MMOL/L Blood Urea Nitrogen 9 7-18 MG/DL Creatinine 0.73 0.60-1.30 MG/DL Estimat Glomerular Filtration Rate 99 BUN/Creatinine Ratio 12 Glucose Level 96 70-105 MG/DL Calcium Level 7.9 L 8.5-10.1 MG/DL Corrected Calcium 8.9 8.5-10.1 MG/DL Magnesium Level 1.6 1.6-2.4 MG/DL Total Bilirubin 0.5 0.1-1.0 MG/DL Aspartate Amino Transf (AST/SGOT) 18 5-34 U/L Alanine Aminotransferase (ALT/SGPT) 14 0-55 U/L Alkaline Phosphatase 86 40-136 U/L Total Protein 5.5 L 6.4-8.2 GM/DL Albumin 2.7 L 3.2-4.5 GM/DL Test 04/03/23 11:46 04/03/23 17:11 Range/Units Glucometer 92 118 H 70-110 MG/DL ECG Impression ECG Initial ECG Rhythm: Normal Sinus A/P-Cardiology Assessment/Admission Diagnosis Syncope, Alcohol abuse, Polysubstance abuse, Cigarette smoking, Noncompliance with treatment and physician follow-up. Hypertension, Hyperlipidemia Plan Difficult to take a good history. Unclear history. Presented with possible s yncope. History of significant alcohol abuse. EKG normal. Telemetry does not show any arrhythmias. Consider event monitor for 30 days as an outpatient and follow-up with cardiology. René RAMIREZ MD Apr 03, 2023 17:41
[2023-04-03 19:40] VITALS: BP 132/73
[2023-04-04] VITALS (7 sets, daily range): BP systolic 137–174; BP diastolic 82–98
[2023-04-04] MEDS: KETOROLAC INJ 30 MG/ML VIAL IVP PRN ×4 (01:57→21:13)
[2023-04-04] MEDS: THERAPEUTIC MULTIVITAMIN W/MINERALS TABLET PO SCH ×2 (05:24→08:13)
[2023-04-04] MEDS: THIAMINE 100 MG (VITAMIN B-1) TAB PO SCH ×2 (05:24→08:13)
[2023-04-04 05:34] LABS: BASOPHILS % (AUTO) 1 % (0-10); EOSINOPHILS # (AUTO) 0.1 10^3/uL (0.0-0.3); EOSINOPHILS % (AUTO) 2 % (0-10); HEMATOCRIT 41 % (40-54); HEMOGLOBIN 13.4 g/dL (13.3-17.7); LYMPHOCYTES # (AUTO) 1.3 10^3/uL (1.0-4.0); LYMPHOCYTES % (AUTO) 27 % (12-44); MEAN CORPUSCULAR HEMOGLOBIN 34 pg (25-34); MEAN CORPUSCULAR HGB CONC 33 g/dL (32-36); MEAN CORPUSCULAR VOLUME 102 fL (80-99); MONOCYTES # (AUTO) 0.5 10^3/uL (0.0-1.0); MONOCYTES % (AUTO) 9 % (0-12); NEUTROPHILS # (AUTO) 3.1 10^3/uL (1.8-7.8); NEUTROPHILS % (AUTO) 61 % (42-75); PLATELET COUNT 219 10^3/uL (130-400)
[2023-04-04 05:48] LABS: ALBUMIN 2.7 GM/DL (3.2-4.5); POTASSIUM 3.7 MMOL/L (3.6-5.0)
[2023-04-04 05:50] LABS: TOTAL PROTEIN 5.4 GM/DL (6.4-8.2)
[2023-04-04 05:52] LABS: BILIRUBIN,TOTAL 0.3 MG/DL (0.1-1.0)
[2023-04-04 05:54] LABS: CREATININE SERUM 0.65 MG/DL (0.60-1.30)
--- NOTE | 2023-04-04 06:58 | Progress Note ---
NY MEDEROS MD 04/04/23 0658: Subjective Subjective/Events-last exam Pt reports doing well this morning. Has no complaints. Per nursing, Pt was refusing his vitamins. Agreed to take them after conversation with this provider. Objective Exam Last Set of Vital Signs Vital Signs Date Time Temp Pulse Resp B/P (MAP) Pulse Ox O2 Delivery O2 Flow Rate FiO2 04/04/23 04:59 36.7 64 18 159/95 (116) 96 Room Air Capillary Refill : I&O Intake and Output 04/04/23 00:00 Intake Total 1200 ml Output Total 1245 ml Balance -45 ml Intake Oral 800 ml IV Total 400 ml Output Urine Total 1245 ml # Voids 1 # Bowel Movements 2 General: Alert, Oriented X3, Cooperative, No Acute Distress HEENT: Atraumatic, EOMI Neck: Supple Lungs: Other (Mild expiratory wheezes in BL upper lobes) Heart: Regular Rate, No Murmurs Abdomen: No Tenderness Extremities: No Edema Neuro: Normal Speech, Strength at 5/5 X4 Ext, Cranial Nerves 3-12 NL, Other (Negative for asterixis, mild BL hand tremor ) Psych/Mental Status: Mental Status NL Results/Procedures Lab Laboratory Tests 04/03/23 11:46: Glucometer 92 04/03/23 17:11: Glucometer 118H 04/04/23 05:05: White Blood Count 5.0, Red Blood Count 3.98L, Hemoglobin 13.4, Hematocrit 41, Mean Corpuscular Volume 102H, Mean Corpuscular Hemoglobin 34, Mean Corpuscular Hemoglobin Concent 33, Red Cell Distribution Width 13.2, Platelet Count 219, Mean Platelet Volume 9.0, Immature Granulocyte % (Auto) 0, Neutrophils (%) (Auto) 61, Lymphocytes (%) (Auto) 27, Monocytes (%) (Auto) 9, Eosinophils (%) (Auto) 2, Basophils (%) (Auto) 1, Neutrophils # (Auto) 3.1, Lymphocytes # (Auto) 1.3, Monocytes # (Auto) 0.5, Eosinophils # (Auto) 0.1, Basophils # (Auto) 0.0, Immature Granulocyte # (Auto) 0.0, Sodium Level 142, Potassium Level 3.7, Chloride Level 110H, Carbon Dioxide Level 23, Anion Gap 9, Blood Urea Nitrogen 8, Creatinine 0.65, Estimat Glomerular Filtration Rate 103, BUN/Creatinine Ratio 12, Glucose Level 99, Calcium Level 8.0L, Corrected Calcium 9.0, Total Bilirubin 0.3, Aspartate Amino Transf (AST/SGOT) 17, Alanine Aminotransferase (ALT/SGPT) 14, Alkaline Phosphatase 85, Total Protein 5.4L, Albumin 2.7L Microbiology 04/02/23 MRSA Screen - Final, Complete MRSA not isolated Radiology CXR 04/02/23: IMPRESSION: . "1. COPD. 2. Persistent perihilar and bibasilar atelectasis or infiltrate." CT head/face/cervical spine 04/02/23: "Impression: 1. No identified acute intracranial abnormality. 2. Mild findings of chronic small vessel ischemic disease. 3. No identified acute maxillofacial bone fracture. 4. Nonspecific opacification in the right middle ear. 5. No identified acute fracture of the cervical spine. 6. Cervical spine hardware and degenerative changes of the cervical spine, as above." CTA chest 04/02/23: "IMPRESSION: 1. No pulmonary emboli. 2. Severe emphysema. No focal pulmonary opacity. 3. No acute CT finding in the abdomen or pelvis. 4. Stable postoperative changes in the thoracic and lumbar spine. There is osteolysis about the bilateral T10 pedicle screw suggesting early loosening." Head CTA 04/02/23: "IMPRESSION: No large vessel occlusion. No high-grade narrowing, aneurysm or dissection involving the major arteries in the head and neck." Assessment/Plan Assessment/Plan Admission Dx Syncope Admission Status: Inpatient Order (span 2 midnights) (1) Syncope Status: Acute Assessment & Plan: Suspect possible dehydration and hypotension. No events noted on tele overnight, CTA head and chest without acute concern. Obtain orthostatic BP Cardiology recs: 30 day event monitoring with cardiology f/u. (2) Hypokalemia Status: Acute Assessment & Plan: After admission. Replace and recheck (3) Pancreatitis Status: Acute Assessment & Plan: Recently discharged after acute episode, repeat lipase this stay still elevated, but down from discharge, monitor. Qualifiers: (4) COPD (chronic obstructive pulmonary disease) Status: Chronic Assessment & Plan: Albuterol as needed, supplemental oxygen as needed. No evidence of exacerbation. (5) Alcoholism Status: Chronic Assessment & Plan: Alcohol withdrawal protocol. (6) Chronic pain Status: Chronic (7) DVT prophylaxis Status: Acute Assessment & Plan: Enoxaparin RUSSELL ACUÑA MD 04/05/23 1215: Addendum Physician Addendum Addendum I personally performed the castorena portions of the visit, discussed case with resident and concur with resident documentation of history, physical exam, assessment and treatment plan unless otherwise noted Progress 12:14 NY MEDEROS MD Apr 04, 2023 06:58 RUSSELL ACUÑA MD Apr 05, 2023 12:15
[2023-04-04] MEDS: FOLIC ACID 1 MG TAB PO SCH (08:10)
[2023-04-04] MEDS: ENOXAPARIN 40 MG/0.4 ML SYRINGE SC SCH (08:13)
[2023-04-04] MEDS: ACETAMINOPHEN 325 MG TABLET PO PRN (12:40)
[2023-04-05 03:23] VITALS: BP 121/76
[2023-04-05] MEDS: THERAPEUTIC MULTIVITAMIN W/MINERALS TABLET PO SCH (05:19)
[2023-04-05] MEDS: THIAMINE 100 MG (VITAMIN B-1) TAB PO SCH (05:19)
[2023-04-05 05:37] LABS: BASOPHILS % (AUTO) 1 % (0-10); EOSINOPHILS # (AUTO) 0.1 10^3/uL (0.0-0.3); EOSINOPHILS % (AUTO) 3 % (0-10); HEMATOCRIT 41 % (40-54); HEMOGLOBIN 13.9 g/dL (13.3-17.7); LYMPHOCYTES # (AUTO) 1.3 10^3/uL (1.0-4.0); LYMPHOCYTES % (AUTO) 29 % (12-44); MEAN CORPUSCULAR HEMOGLOBIN 34 pg (25-34); MEAN CORPUSCULAR HGB CONC 34 g/dL (32-36); MEAN CORPUSCULAR VOLUME 102 fL (80-99); MONOCYTES # (AUTO) 0.5 10^3/uL (0.0-1.0); MONOCYTES % (AUTO) 10 % (0-12); NEUTROPHILS # (AUTO) 2.7 10^3/uL (1.8-7.8); NEUTROPHILS % (AUTO) 58 % (42-75); PLATELET COUNT 198 10^3/uL (130-400); WHITE BLOOD COUNT 4.6 10^3/uL (4.3-11.0)
[2023-04-05 06:00] LABS: ALBUMIN 2.8 GM/DL (3.2-4.5); BILIRUBIN,TOTAL 0.4 MG/DL (0.1-1.0); CALCIUM 7.9 MG/DL (8.5-10.1); CREATININE SERUM 0.69 MG/DL (0.60-1.30); POTASSIUM 3.7 MMOL/L (3.6-5.0); TOTAL PROTEIN 5.6 GM/DL (6.4-8.2)
--- NOTE | 2023-04-05 06:59 | Progress Note ---
NY MEDEROS MD 04/05/23 0659: Subjective Subjective/Events-last exam No acute events overnight. Pt denies any chest pain, N/V/D, SOB. Objective Exam Last Set of Vital Signs Vital Signs Date Time Temp Pulse Resp B/P (MAP) Pulse Ox O2 Delivery O2 Flow Rate FiO2 04/05/23 03:23 36.2 66 20 121/76 (91) 97 Room Air Capillary Refill : I&O Intake and Output 04/05/23 00:00 Intake Total 1151 ml Output Total 575 ml Balance 576 ml Intake Oral 1151 ml Output Urine Total 575 ml # Voids 2 # Bowel Movements 2 General: Alert, Oriented X3, Cooperative, No Acute Distress HEENT: Atraumatic, EOMI Neck: Supple Lungs: Other (Coarse throughout) Heart: Regular Rate, No Murmurs Abdomen: Soft Extremities: No Edema Skin: No Rashes Neuro: Normal Gait, Normal Speech Psych/Mental Status: Mental Status NL Results/Procedures Lab Laboratory Tests 04/05/23 05:10: White Blood Count 4.6, Red Blood Count 4.06L, Hemoglobin 13.9, Hematocrit 41, Mean Corpuscular Volume 102H, Mean Corpuscular Hemoglobin 34, Mean Corpuscular Hemoglobin Concent 34, Red Cell Distribution Width 13.2, Platelet Count 198, Mean Platelet Volume 9.0, Immature Granulocyte % (Auto) 0, Neutrophils (%) (Auto) 58, Lymphocytes (%) (Auto) 29, Monocytes (%) (Auto) 10, Eosinophils (%) (Auto) 3, Basophils (%) (Auto) 1, Neutrophils # (Auto) 2.7, Lymphocytes # (Auto) 1.3, Monocytes # (Auto) 0.5, Eosinophils # (Auto) 0.1, Basophils # (Auto) 0.0, Immature Granulocyte # (Auto) 0.0, Sodium Level 138, Potassium Level 3.7, Chloride Level 107, Carbon Dioxide Level 26, Anion Gap 5, Blood Urea Nitrogen 10, Creatinine 0.69, Estimat Glomerular Filtration Rate 101, BUN/Creatinine Ratio 14, Glucose Level 91, Calcium Level 7.9L, Corrected Calcium 8.9, Total Bilirubin 0.4, Aspartate Amino Transf (AST/SGOT) 16, Alanine Aminotransferase (ALT/SGPT) 13, Alkaline Phosphatase 78, Total Protein 5.6L, Albumin 2.8L Microbiology 04/02/23 MRSA Screen - Final, Complete MRSA not isolated Radiology CXR 04/02/23: IMPRESSION: . "1. COPD. 2. Persistent perihilar and bibasilar atelectasis or infiltrate." CT head/face/cervical spine 04/02/23: "Impression: 1. No identified acute intracranial abnormality. 2. Mild findings of chronic small vessel ischemic disease. 3. No identified acute maxillofacial bone fracture. 4. Nonspecific opacification in the right middle ear. 5. No identified acute fracture of the cervical spine. 6. Cervical spine hardware and degenerative changes of the cervical spine, as above." CTA chest 04/02/23: "IMPRESSION: 1. No pulmonary emboli. 2. Severe emphysema. No focal pulmonary opacity. 3. No acute CT finding in the abdomen or pelvis. 4. Stable postoperative changes in the thoracic and lumbar spine. There is osteolysis about the bilateral T10 pedicle screw suggesting early loosening." Head CTA 04/02/23: "IMPRESSION: No large vessel occlusion. No high-grade narrowing, aneurysm or dissection involving the major arteries in the head and neck." Assessment/Plan Assessment/Plan Admission Dx Syncope Admission Status: Observation (1) Syncope Status: Acute Assessment & Plan: Suspect possible dehydration and hypotension. No events noted on tele overnight, CTA head and chest without acute concern. Obtain orthostatic BP Cardiology recs: 30 day event monitoring with cardiology f/u. (2) Hypokalemia Status: Acute Assessment & Plan: After admission. Replace and recheck (3) Pancreatitis Status: Acute Assessment & Plan: Recently discharged after acute episode, repeat lipase this stay still elevated, but down from discharge, monitor. Qualifiers: (4) COPD (chronic obstructive pulmonary disease) Status: Chronic Assessment & Plan: Albuterol as needed, supplemental oxygen as needed. No evidence of exacerbation. (5) Alcoholism Status: Chronic Assessment & Plan: Alcohol withdrawal protocol. (6) Chronic pain Status: Chronic (7) DVT prophylaxis Status: Acute Assessment & Plan: Enoxaparin Addendum Physician Addendum Progress 12:25 RUSSELL ACUÑA MD 04/05/23 1225: Addendum Physician Addendum Addendum I personally performed the castoerna portions of the visit, discussed case with resident and concur with resident documentation of history, physical exam, assessment and treatment plan unless otherwise noted Progress 12:25 NY MEDEROS MD Apr 05, 2023 06:59 RUSSELL ACUÑA MD Apr 05, 2023 12:25
[2023-04-05 07:28] VITALS: BP 163/84
[2023-04-05] MEDS: FOLIC ACID 1 MG TAB PO SCH (08:06)
[2023-04-05] MEDS: ENOXAPARIN 40 MG/0.4 ML SYRINGE SC SCH (08:07)
[2023-04-05] MEDS: KETOROLAC INJ 30 MG/ML VIAL IVP PRN ×3 (08:08→19:48)
[2023-04-05 11:35] VITALS: BP 162/90
[2023-04-05 15:27] VITALS: BP 163/93
[2023-04-05 19:38] VITALS: BP 165/94
[2023-04-05 23:08] VITALS: BP 146/78
[2023-04-06] MEDS: KETOROLAC INJ 30 MG/ML VIAL IVP PRN ×2 (01:58→07:51)
[2023-04-06 03:20] VITALS: BP 168/92
[2023-04-06] MEDS: THERAPEUTIC MULTIVITAMIN W/MINERALS TABLET PO SCH (05:49)
[2023-04-06 06:00] LABS: BASOPHILS % (AUTO) 1 % (0-10); EOSINOPHILS # (AUTO) 0.1 10^3/uL (0.0-0.3); EOSINOPHILS % (AUTO) 3 % (0-10); HEMATOCRIT 42 % (40-54); HEMOGLOBIN 13.9 g/dL (13.3-17.7); LYMPHOCYTES # (AUTO) 1.6 10^3/uL (1.0-4.0); LYMPHOCYTES % (AUTO) 31 % (12-44); MEAN CORPUSCULAR HEMOGLOBIN 34 pg (25-34); MEAN CORPUSCULAR HGB CONC 33 g/dL (32-36); MEAN CORPUSCULAR VOLUME 102 fL (80-99); MEAN PLATELET VOLUME 8.8 fL (9.0-12.2); MONOCYTES # (AUTO) 0.5 10^3/uL (0.0-1.0); MONOCYTES % (AUTO) 9 % (0-12); NEUTROPHILS # (AUTO) 2.8 10^3/uL (1.8-7.8); NEUTROPHILS % (AUTO) 56 % (42-75); PLATELET COUNT 177 10^3/uL (130-400); WHITE BLOOD COUNT 5.1 10^3/uL (4.3-11.0)
[2023-04-06 06:20] LABS: ALBUMIN 2.9 GM/DL (3.2-4.5); BILIRUBIN,TOTAL 0.3 MG/DL (0.1-1.0); CALCIUM 8.2 MG/DL (8.5-10.1); CREATININE SERUM 0.75 MG/DL (0.60-1.30); TOTAL PROTEIN 5.6 GM/DL (6.4-8.2)
[2023-04-06] MEDS: FOLIC ACID 1 MG TAB PO SCH (07:50)
[2023-04-06] MEDS: ENOXAPARIN 40 MG/0.4 ML SYRINGE SC SCH (07:51)
[2023-04-06 08:01] VITALS: BP 173/91
[2023-04-06 08:13] VITALS: BP 132/64
--- NOTE | 2023-04-06 11:39 | Discharge Summary ---
Discharge Summary Hospital Course Was the Problem List Reviewed?: Yes Problems/Dx: (1) Syncope Status: Acute (2) Alcoholism Status: Chronic Hospital Course Date of Admission: Apr 02, 2023 at 21:36 Admission Diagnosis : Family Physician/Provider: Harshil/[facility] Date of Discharge: 04/06/23 Discharge Diagnosis: [ ] Hospital Course: Anjel Tidwell is a 68 year old male with a past medical history of alcoholic p ancreatitis, HTN, hyperlipidemia, alcoholism, COPD, and polysubstance abuse. The patient is homeless and was brought into the ED on 04/02 after a syncopal episode after walking around all day in 90+ degree heat. He hit his head on concrete when he passed out. He had just been in the hospital from 03/22-03/26 for treatment of alcoholic pancreatitis and since then has had issues with weakness and falling. His temperature on arrival to the ED was 99.6 and BP was 125/80. His CBC, CMP, troponin, PT/PTT/INR, EKG, and CTA of head and neck were all within normal limits. His lipase was 146, his D-dimer was 1.9, and his EtOH was 13. Chest xray showed bibasilar atelecstasis. He was started on IV fluids in the ED. He was admitted for syncope likely secondary to dehydration and hypotension as well as hypokalemia of 3.6. He received potassium replacement. He was placed on enoxaparin for DVT prophylaxis and was placed on alcohol withdrawal protocol. Cardiology was consulted and they suggested a 30 day event monitor with outpati ent follow up. The patient began noting improvement over the next few days. On 04/06 he said he feels "not bad" and denies dizziness, headache, N/V and his BP is 173/91 and potassium is corrected at 4.0. He was subsequently discharged on 04/06. BOY GONZALES Labs and Pending Lab Test: Laboratory Tests 04/06/23 05:53: White Blood Count 5.1, Red Blood Count 4.11L, Hemoglobin 13.9, Hematocrit 42, Mean Corpuscular Volume 102H, Mean Corpuscular Hemoglobin 34, Mean Corpuscular Hemoglobin Concent 33, Red Cell Distribution Width 13.3, Platelet Count 177, Mean Platelet Volume 8.8L, Immature Granulocyte % (Auto) 0, Neutrophils (%) (Auto) 56, Lymphocytes (%) (Auto) 31, Monocytes (%) (Auto) 9, Eosinophils (%) (Auto) 3, Basophils (%) (Auto) 1, Neutrophils # (Auto) 2.8, Lymphocytes # (Auto) 1.6, Monocytes # (Auto) 0.5, Eosinophils # (Auto) 0.1, Basophils # (Auto) 0.0, Immature Granulocyte # (Auto) 0.0, Sodium Level 138, Potassium Level 4.0, Chloride Level 107, Carbon Dioxide Level 24, Anion Gap 7, Blood Urea Nitrogen 13, Creatinine 0.75, Estimat Glomerular Filtration Rate 98, BUN/Creatinine Ratio 17, Glucose Level 105, Calcium Level 8.2L, Corrected Calcium 9.1, Total Bilirubin 0.3, Aspartate Amino Transf (AST/SGOT) 18, Alanine Aminotransferase (ALT/SGPT) 10, Alkaline Phosphatase 76, Total Protein 5.6L, Albumin 2.9L Microbiology 04/02/23 MRSA Screen - Final, Complete MRSA not isolated Home Meds Active No Active Prescriptions or Reported Medications Assessment/Pt Instructions pcp 1 week Discharge Planning: <30 minutes discharge planning Discharge Instructions Discharge Diet: No Restrictions Activity as Tolerated: Yes Discharge Physical Examination Vital Signs Vital Signs Date Time Temp Pulse Resp B/P (MAP) Pulse Ox O2 Delivery O2 Flow Rate FiO2 04/06/23 08:13 132/64 (86) 04/06/23 08:01 36.4 69 18 97 Room Air General Appearance: No Apparent Distress, WD/WN, Chronically ill Allergies: Coded Allergies: ibuprofen (Verified Adverse Reaction, Unknown, Hypertension, pt has rec ASA in the past, 11/05/21) HYPERTENSION tramadol (Verified Adverse Reaction, Unknown, VOMIT, 10/03/18) Discharge Summary Date of Admission Apr 02, 2023 at 21:36 Date of Discharge Discharge Date: Apr 06, 2023 STALIN KISER DO Apr 06, 2023 11:39
[2023-04-06 11:54] VITALS: BP 135/78
--- NOTE | 2023-04-06 13:39 | Progress Note ---
PAWANLuzBOY Mccoy 04/06/23 1338: Progress Note Anjel Tidwell is a 68 year old male with a past medical history of alcoholic pancreatitis, HTN, hyperlipidemia, alcoholism, COPD, and polysubstance abuse. The patient is homeless and was brought into the ED on 04/02 after a syncopal episode after walking around all day in 90+ degree heat. He hit his head on concrete when he passed out. He had just been in the hospital from 03/22-03/26 for treatment of alcoholic pancreatitis and since then has had issues with weakness and falling. His temperature on arrival to the ED was 99.6 and BP was 125/80. His CBC, CMP, troponin, PT/PTT/INR, EKG, and CTA of head and neck were all within normal limits. His lipase was 146, his D-dimer was 1.9, and his EtOH was 13. Chest xray showed bibasilar atelecstasis. He was started on IV fluids in the ED. He was admitted for syncope likely secondary to dehydration and hypotension as well as hypokalemia of 3.6. He received potassium replacement. He was placed on enoxaparin for DVT prophylaxis and was placed on alcohol withdrawal protocol. Cardiology was consulted and they suggested a 30 day event monitor with outpatient follow up. The patient began noting improvement over the next few days. On 04/06 he said he feels "not bad" and denies dizziness, headache, N/V and his BP is 173/91 and potassium is corrected at 4.0. He was subsequently disc harged on 04/06. BRITTNEE KISER DO 04/07/23 0453: Supervisory-Addendum Brief Verification & Attestation Participated in pt care: history, MDM, physical Personally performed: exam, history, MDM, supervision of care Care discussed with: Medical Student Procedures: n/a Results interpretation: Verified all documentation Verification and Attestation of Medical Student E/M Service A medical student performed and documented this service in my presence. I reviewed and verified all information documented by the medical student and made modifications to such information, when appropriate. I personally performed the physical exam and medical decision making. Brittnee Kiser, Apr 07, 2023,04:53 PAWANLuzBOY Mccoy Apr 06, 2023 13:38 BRITTNEE KISER DO Apr 07, 2023 04:53
[2023-04-06 15:50] VITALS: BP 135/78
== END 2023-04-06 15:50 | disposition home or self-care (01) ==
LOC: EDUNIT# 17:52 → ER 17:54 → INTOOBSV 21:36 → ICU 21:36 → 4TH 04-03 14:06
PROVIDERS: ADMIT Family Medicine; ATTEND Internal Medicine
DX: R55 Syncope and collapse (principal); S09.90XA Unspecified injury of head, initial encounter; K85.20 Alcohol induced acute pancreatitis without necrosis or infection; G89.29 Other chronic pain; I10 Essential (primary) hypertension; E78.5 Hyperlipidemia, unspecified; E87.6 Hypokalemia; J44.9 Chronic obstructive pulmonary disease, unspecified; F19.10 Other psychoactive substance abuse, uncomplicated; F10.20 Alcohol dependence, uncomplicated; F17.210 Nicotine dependence, cigarettes, uncomplicated; Y90.9 Presence of alcohol in blood, level not specified; Z79.01 Long term (current) use of anticoagulants; Z59.00 Homelessness unspecified; Z91.199 Patient's noncompliance with other medical treatment and regimen due to unspecified reason; W22.8XXA Striking against or struck by other objects, initial encounter
CPT/HCPCS: 70450; 70486; 70496; 70498; 71045; 71275; 72125; 74177; 80053 ×5; 80306; 81000 ×2; 82140; 82150; 82550; 82553; 82947 ×2; 83690; 83735 ×2; 83874; 84484; 85025 ×5; 85379; 85610; 85730; 86141; 87081; 87389; 87636; 93005; 93041; 96360; 96361; 96366; 96372 ×2; 96375; 96376 ×4; 99284; G0378 ×2; G0480; 36415; 80320

== ENCOUNTER 2023-04-08 18:32 | Emergency (ER) | payer MEDICARE, MEDICAID ==
[~2023-04-08] VITALS: Ht 167.7 cm; Wt 61.2 kg
[2023-04-08] MEDS ORDERED: NS IV 1000 ML 1,000 ML IV STA (18:51)
[2023-04-08] MEDS ORDERED: HYDROcodone/ACETAMINOPHEN 5 MG/325 MG TABLET PO ONE (19:00)
[2023-04-08 19:33] LABS: BASOPHILS % (AUTO) 1 % (0-10); EOSINOPHILS # (AUTO) 0.1 10^3/uL (0.0-0.3); EOSINOPHILS % (AUTO) 1 % (0-10); HEMATOCRIT 46 % (40-54); HEMOGLOBIN 15.2 g/dL (13.3-17.7); LYMPHOCYTES # (AUTO) 1.4 10^3/uL (1.0-4.0); LYMPHOCYTES % (AUTO) 19 % (12-44); MEAN CORPUSCULAR HEMOGLOBIN 34 pg (25-34); MEAN CORPUSCULAR HGB CONC 33 g/dL (32-36); MEAN CORPUSCULAR VOLUME 103 fL (80-99); MEAN PLATELET VOLUME 8.9 fL (9.0-12.2); MONOCYTES # (AUTO) 0.8 10^3/uL (0.0-1.0); MONOCYTES % (AUTO) 11 % (0-12); NEUTROPHILS % (AUTO) 68 % (42-75); PLATELET COUNT 194 10^3/uL (130-400); WHITE BLOOD COUNT 7.4 10^3/uL (4.3-11.0)
[2023-04-08 19:45] LABS: CALCIUM 8.8 MG/DL (8.5-10.1); POTASSIUM 3.7 MMOL/L (3.6-5.0)
[2023-04-08 19:49] LABS: CREATININE SERUM 1.01 MG/DL (0.60-1.30)
--- NOTE | 2023-04-08 20:00 | ED Trauma-Multisystem ---
General Chief Complaint: Trauma-Non Activation Stated Complaint: [facility] Nursing Triage Note: PT TO ED BY EMS WITH C/O SYNCOPAL EPISODE. EMS REPORTS PT WAS FOUND ON THE GROUND BY BYSTANDERS. PT HAD UNWITNESSED LOC THIS AFTERNOON, REPORTS SIMILAR SYNCOPAL EPISODE AROUND 1130 TODAY. PT REPORTS HE IS WEAK, DIZZY, AND HAS A CALDERÓN. ABRASION NOTED TO NOSE. PT DENIES NECK PAIN OR INCREASED BACK PAIN. PT REPORTS HE IS HOMELESS AND HAS ONLY HAD 1 BOTTLE OF WATER TODAY, NO FOOD TODAY. PT A&O. Source of Information: Patient, EMS Exam Limitations: No Limitations History of Present Illness Date Seen by Provider: Apr 08, 2023 Time Seen by Provider: 18:32 Initial Comments Patient is a 68-year-old male who presents to the emergency room by EMS chief complaint of syncopal episode this afternoon. Patient was found outside of a [facility] on the ground unresponsive. He states that he felt weak and dizzy just prior to the fall. Does not recall any shortness of breath, nausea, chest pain. Per review of the medical record he has a long history of medical noncompliance, chronic alcoholism, frequent falls. The patient states that he has chronic back pain that he treats daily with "1 shot" of alcohol. He denies excessive daily drinking to me. He is homeless. Denies any medications. No recent illnesses. He is complaining of facial pain and his chronic back pain. Denies any numbness tingling or weakness to any of his extremities. He states he has not eaten today and has only had 1 bottle of water. He states he has not actually eaten in 2 days that he can think of. He states his last tetanus shot was within the last few months as a result of a prior fall and ER visit. He is asking for pain medications. Occurred: Just Prior to Arrival Severity: Mild Pain/Injury Location: Face Method of Injury: Fall Loss of Consciousness: Brief (Seconds) Associated Symptoms (Fall): Other (headache and pain in his nose/face) Allergies and Home Medications Allergies Coded Allergies: ibuprofen (Verified Adverse Reaction, Unknown, Hypertension, pt has rec ASA in the past, 11/05/21) HYPERTENSION tramadol (Verified Adverse Reaction, Unknown, VOMIT, 10/03/18) Patient Home Medication List Home Medication List Reviewed: Yes Discontinued Medications Aspirin (Aspirin EC) 81 Mg Tablet., 81 MG PO DAILY Discontinued Reason: No Longer Taking Prescribed by: STALIN KISER on 03/26/23 120 Atorvastatin Calcium (Lipitor) 40 Mg Tablet, 40 MG PO HS Discontinued Reason: No Longer Taking Prescribed by: STALIN KISER on 03/26/23 120 Multivitamin/Iron/Folic Acid (Tab-A-Carole Multivit with Iron) 18 Mg Iron-400 Mcg Tablet, 1 EA PO DAILY@0700 Discontinued Reason: No Longer Taking Prescribed by: STALIN KISER on 03/26/23 120 Oxycodone Hcl (Oxyir Tablet) 5 Mg Tab, 5 MG PO TID Discontinued Reason: No Longer Taking Prescribed by: STALIN KISER on 03/26/23 1203 Review of Systems Review of Systems Constitutional: see HPI Eyes: No Symptoms Reported Ears: No Symptoms Reported Nose: Pain Mouth: No Symptoms Reported Respiratory: no symptoms reported Cardiovascular: No Symptoms Reported Gastrointestinal: no symptoms reported Genitourinary: no symptoms reported Musculoskeletal: other (chronic back pain) Skin: other (abrasions - facial) Psychiatric/Neurological: Other (syncope) All Other Systems Reviewed Negative Unless Noted: Yes Past Gfgxwxv-Waiczp-Pqheae Hx Immunizations Up To Date Tetanus Booster (TDap): Unknown First/Initial COVID19 Vaccinat: 09/2021 Second COVID19 Vaccination Jl: 10/2021 Third COVID19 Vaccination Date: 09/2021 Seasonal Allergies Seasonal Allergies: No Past Medical History Surgery/Hospitalization HX: BACK X 3, ROTATOR CUFF X 3, APPENDIX, GALLBLADDER Surgeries: Yes Appendectomy, Gallbladder, Orthopedic Respiratory: No Currently Using CPAP: No Currently Using BIPAP: No Cardiac: Yes High Cholesterol, Hypertension Neurological: Yes TIA Gastrointestinal: Yes Gastroesophageal Reflux, Pancreatitis, Gall Bladder Disease Musculoskeletal: Yes Arthritis, Chronic Back Pain Endocrine: No HEENT: Yes Hearing Impairment: Hard of Hearing Cancer: No Skin Did You Recieve Any Treatments: Yes What Type of Treatment Did You: Surgical Intervention Adverse Reaction/Blood Tranf: No Family Medical History Cancer 03 FATHER (PROSTATE) 03 MOTHER (BREAST CA ) 09 BROTHER (THROAT/PANCREATIC) 09 SISTER (LIVER) DEAFNESS 03 FATHER 09 BROTHER Family history: Breast disease 03 MOTHER (BREAST CA) History of - respiratory disease Prostate cancer 03 FATHER Stroke 03 MOTHER Visual impairment Cancer, Stroke LONG HISTORY OF EXTREME NON-COMPLIANCE IN ALL ASPECTS OF CARE PT IS HOMELESS, AND HAS BEEN FOR A LONG TIME SOCIAL HISTORY: -SMOKES 2-3 PPD -ETOH--ABUSE/DAILY USE--ALSO DRINKS LARGE AMOUNTS OF NYQUIL DAILY; WITH HISTORY OF ALCOHOL WITHDRAWL SYMPTOMS -DRUGS-EXTENSIVE POLYSUBSTANCE ABUSE AND OVERDOSES--ESPECIALLY XANAX/BENZODIAZEPINES AND NARCOTICS/OPIATES; METHAMPHETAMINES -HAS HAD A MULTITUDE OF ACCIDENTS DUE TO SUBSTANCE ABUSE, HISTORY OF GETTING MULTIPLE RX'S FROM MULTIPROVIDERS USING MULTIPLE PHARMACIES; -HAS BEEN EVICTED FROM MULTIPLE REHAB /SUBSTANCE ABUSE TREATMENT FACILITIES, INCLUDING [facility], FOR EXTREME NON-COMPLIANCE. 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 2.0oz. [id number]; 21.00 BMI Method:Stated General Appearance: No Apparent Distress, WD/WN, Other (Disheveled, dirty and unkempt; smells of etoh) Head: No Evidence of Injury Eyes: Bilateral Eye Normal Inspection, Bilateral Eye PERRL, Bilateral Eye EOMI Ears, Nose, Throat: Other (significant abrasion across the bridge of the nose) Neck: Normal Inspection, Non Tender, Supple Cardiovascular: Regular Rate, Rhythm Respiratory: Lungs Clear, Normal Breath Sounds, No Accessory Muscle Use, No Respiratory Distress Gastrointestinal: Non Tender, Soft Extremity: Normal Inspection, Normal Range of Motion Neurologic/Psychiatric: Alert, Oriented x3, No Motor/Sensory Deficits, Other (tearful when discussing his homelessness and the loss of his to [place]) Skin: Normal Color, Warm/Dry [place] Coma Score Best Eye Response ([place]): (4) Open Spontaneously Best Verbal Response ([place]): (5) Oriented Best Motor Response ([place]): (6) Obeys Commands Progress/Results/Core Measures Results/Orders Lab Results Laboratory Tests Test 04/08/23 19:25 Range/Units White Blood Count 7.4 4.3-11.0 10^3/uL Red Blood Count 4.46 4.30-5.52 10^6/uL Hemoglobin 15.2 13.3-17.7 g/dL Hematocrit 46 40-54 % Mean Corpuscular Volume 103 H 80-99 fL Mean Corpuscular Hemoglobin 34 25-34 pg Mean Corpuscular Hemoglobin Concent 33 32-36 g/dL Red Cell Distribution Width 14.0 10.0-14.5 % Platelet Count 194 130-400 10^3/uL Mean Platelet Volume 8.9 L 9.0-12.2 fL Immature Granulocyte % (Auto) 0 % Neutrophils (%) (Auto) 68 42-75 % Lymphocytes (%) (Auto) 19 12-44 % Monocytes (%) (Auto) 11 0-12 % Eosinophils (%) (Auto) 1 0-10 % Basophils (%) (Auto) 1 0-10 % Neutrophils # (Auto) 5.0 1.8-7.8 10^3/uL Lymphocytes # (Auto) 1.4 1.0-4.0 10^3/uL Monocytes # (Auto) 0.8 0.0-1.0 10^3/uL Eosinophils # (Auto) 0.1 0.0-0.3 10^3/uL Basophils # (Auto) 0.0 0.0-0.1 10^3/uL Immature Granulocyte # (Auto) 0.0 0.0-0.1 10^3/uL Sodium Level 142 135-145 MMOL/L Potassium Level 3.7 3.6-5.0 MMOL/L Chloride Level 108 H 98-107 MMOL/L Carbon Dioxide Level 21 21-32 MMOL/L Anion Gap 13 5-14 MMOL/L Blood Urea Nitrogen 20 H 7-18 MG/DL Creatinine 1.01 0.60-1.30 MG/DL Estimat Glomerular Filtration Rate 81 BUN/Creatinine Ratio 20 Glucose Level 100 70-105 MG/DL Calcium Level 8.8 8.5-10.1 MG/DL Total Creatine Kinase 50 30-200 U/L Serum Alcohol 61 H <10 MG/DL My Orders Orders - LUCIA COLEMAN MD Ed Iv/Invasive Line Start (04/08/23 18:51) Cbc With Automated Diff (04/08/23 18:51) Alcohol (04/08/23 18:51) Basic Metabolic Panel (04/08/23 18:51) Ekg Tracing (04/08/23 18:51) Ct Head/Face/Cervical Wo (04/08/23 18:51) Ns Iv 1000 Ml (Ns Iv 1000 Ml) (04/08/23 18:51) Creatine Kinase (04/08/23 18:51) Ua Culture If Indicated (04/08/23 18:51) Hydrocodone/Apap 5/325 Tablet (Hydrocod (04/08/23 19:00) Medications Given in ED Current Medications Medications Dose Ordered Sig/Isabell Route Start Time Stop Time Status Last Admin Dose Admin Acetaminophen/ Hydrocodone Bitart 1 ea ONCE ONCE PO 04/08/23 19:00 04/08/23 19:01 DC 04/08/23 19:16 1 EA Vital Signs/I&O 04/08/23 18:35 Temp 36.8 Pulse 91 Resp 16 B/P (MAP) 114/71 (85) Pulse Ox 97 O2 Delivery Room Air Blood Pressure Mean: 85 Progress Progress Note : Time: 20:57 Progress Note Patient seen and evaluated by me. Evaluation today includes physical exam, CBC, basic metabolic panel, total CK, EKG, etoh level, CT head facial bones and c ervical spine. Pertinent physical exam findings well-developed well-nourished thin elderly male in no acute distress. Significant abrasions over the mid face. Rest of his HEENT exam is unremarkable. The patient is edentulous. No cervical spine tenderness. No chest wall tenderness, heart is regular, lungs are clear. Moves all extremities equally. No focal neurologic deficits. Differential diagnosis based on history and physical exam, heat related syncope, dehydration, arrhythmia, electrolyte imbalance, cervical spine fracture, facial fracture; rhabdomyolysis Patient's labs are independently reviewed and interpreted by me. His CBC is normal his chemistry is normal. Total CK is 50. Alcohol level 61. EKG shows normal sinus rhythm with occasional PVC. No ST segment change or interval concerns. CT head facial bones and cervical spine are negative for any acute abnormality. Patient is treated in the emergency department with 1 L of normal saline and is given a 5 mg hydrocodone tablet. I have reviewed wound care precautions with the patient. He will be provided with a couple of packets of triple antibiotic ointment. He is strongly encouraged to hydrate extra in the excessive heat recently. He is encouraged to follow-up with [facility]. Return precautions are provided in both verbal and written format. Patient was unable to provide a urine sample however due to the low CK very low clinical concern for rhabdomyolysis. Patient is appreciative of the care received today. All questions were sought and answered. Patient is stable for discharge Initial ECG Impression Date: Apr 08, 2023 Initial ECG Impression Time: 19:01 Initial ECG Rate: 86 Initial ECG Rhythm: Normal Sinus Initial ECG Impression: Normal Comment occ PVC - normal intervals Diagnostic Imaging Diagonstic Imaging: CT Comments CT of the head, cervical spine and facial bones read by "stat rad"no acute findings/fractures Departure Impression Primary Impression: Syncope Qualified Codes: T67.1XXA - Heat syncope, initial encounter Additional Impressions: Minor head injury Qualified Codes: S09.90XA - Unspecified injury of head, initial encounter Facial abrasion Qualified Codes: S00.81XA - Abrasion of other part of head, initial encounter Alcohol intoxication Qualified Codes: F10.920 - Alcohol use, unspecified with intoxication, uncomplicated Disposition: 01 HOME, SELF-CARE Condition: Improved Departure-Patient Inst. Decision time for Depature: 20:55 Referrals: [facility] [place] Primary Care Physician Patient Instructions: Heat Illness ED, Minor Head Injury, Adult ED Add. Discharge Instructions: Drink plenty of fluids to stay well-hydrated. At least 3-4 bottles of water daily. Try and cut down on your alcohol use. Dress in loose light-colored clothing while you are outside to prevent further heat related illness. [id number]-[id number] extra strength Tylenol, 2 tablets every 6 hours as needed for pain. I have also provided you with 4 hydrocodone tablets you can take 1 every 6 hours as needed for more severe pain. Return to the emergency department for any new, concerning or emergent complaints for Copy Copies To 1: ROSE KWONG KATHRYN M MD Apr 08, 2023 20:00
--- NOTE | 2023-04-08 21:08 | Diagnostic Imaging Report ---
PROCEDURE: CT head, face, and cervical spine without contrast. TECHNIQUE: Multiple contiguous axial images were obtained through the head, neck, and facial bones without the use of intravenous contrast. Sagittal and coronal reformations through the cervical spine and facial bones were also performed. Auto Exposure Controls were utilized during the CT exam to meet ALARA standards for radiation dose reduction. INDICATION: Syncope, altered mental status. COMPARISON: CT A of the head and neck on 04/02/2023. FINDINGS: No acute intracranial hemorrhage. The aguilar-white matter differentiation is preserved. Scattered hypoattenuation within the periventricular and subcortical white matter. No midline shift or mass effect. No intracranial mass or fluid collection. The subarachnoid cisterns are maintained. Scattered intracranial vascular calcification. The skull is intact. The paranasal sinuses and mastoids are clear. The globes and orbits are intact. There is straightening of the cervical lordosis. Postsurgical changes from prior ACDF from C3 to C7 no acute fracture or dislocation of the cervical spine. Multilevel facet arthritis. Moderate spinal canal stenosis at C2-C3 due to disc bulge and uncovertebral and facet arthritis. The nasal bone is intact. The nasal septum is deviated to the left. The zygomatic bone is intact. The mandible is intact. The pterygoid plates are intact. The paranasal sinuses and mastoids are clear. The globes and orbits are intact. IMPRESSION: No acute intracranial hemorrhage. No large vascular territory west-white loss. No intracranial mass, midline shift, or hydrocephalus. No acute fracture dislocation of the cervical spine. No acute facial fractures. Moderate spinal canal stenosis at C2-C3. Dictated by: Dictated on workstation # [id number]
[2023-04-08 21:24] VITALS: BP 116/69
== END 2023-04-08 21:24 | disposition home or self-care (01) ==
LOC: EDUNIT# 18:32 → ER 18:33
DX: S09.90XA Unspecified injury of head, initial encounter (principal); S00.81XA Abrasion of other part of head, initial encounter; R55 Syncope and collapse; F10.129 Alcohol abuse with intoxication, unspecified; M54.9 Dorsalgia, unspecified; G89.29 Other chronic pain; F17.210 Nicotine dependence, cigarettes, uncomplicated; Z59.00 Homelessness unspecified; Z91.199 Patient's noncompliance with other medical treatment and regimen due to unspecified reason; W19.XXXA Unspecified fall, initial encounter; Y90.3 Blood alcohol level of 60-79 mg/100 ml
CPT/HCPCS: 70450; 70486; 72125; 80048; 82550; 85025; 93005; 99284; G0480; 36415; 80320

== ENCOUNTER 2023-04-13 10:31 | Inpatient (IN) | payer MEDICARE, MEDICAID ==
[~2023-04-13] VITALS: Ht 167.7 cm; Wt 72.1 kg
[2023-04-13 10:54] LABS: ALBUMIN 3.3 GM/DL (3.2-4.5); BASOPHILS # (AUTO) 0.1 10^3/uL (0.0-0.1); BASOPHILS % (AUTO) 0 % (0-10); CHLORIDE 97 MMOL/L (98-107); EOSINOPHILS # (AUTO) 0.1 10^3/uL (0.0-0.3); EOSINOPHILS % (AUTO) 0 % (0-10); HEMATOCRIT 44 % (40-54); HEMOGLOBIN 14.7 g/dL (13.3-17.7); LYMPHOCYTES # (AUTO) 0.7 10^3/uL (1.0-4.0); LYMPHOCYTES % (AUTO) 3 % (12-44); MEAN CORPUSCULAR HEMOGLOBIN 34 pg (25-34); MEAN CORPUSCULAR HGB CONC 34 g/dL (32-36); MEAN CORPUSCULAR VOLUME 100 fL (80-99); MEAN PLATELET VOLUME 9.6 fL (9.0-12.2); MONOCYTES # (AUTO) 1.4 10^3/uL (0.0-1.0); MONOCYTES % (AUTO) 6 % (0-12); NEUTROPHILS # (AUTO) 23.6 10^3/uL (1.8-7.8); NEUTROPHILS % (AUTO) 90 % (42-75); PLATELET COUNT 215 10^3/uL (130-400); POTASSIUM 2.8 MMOL/L (3.6-5.0); SODIUM 131 MMOL/L (135-145); WHITE BLOOD COUNT 26.3 10^3/uL (4.3-11.0)
[2023-04-13 10:56] LABS: CALCIUM 8.9 MG/DL (8.5-10.1)
[2023-04-13 10:57] LABS: GLUCOSE 146 MG/DL (70-105)
--- NOTE | 2023-04-13 10:57 | ED General ---
General Chief Complaint: Fever-Adult/Adol Stated Complaint: WEAKNESS Nursing Triage Note: PT ARRIVED PER EMS, PT FOUND SLEEPING OUTSIDE, [facility] TRYING TO TAKE PT BACK TO [facility] BUT PT TOO WEAK. PT HAS SEVERAL ABRASIONS ON FACE FROM FALL A FEW WEEKS AGO STATES PT. PT HAS TEMP 104 FOR EMS. PT HAS IV NS INFUSING IN L AC BY EMS #20 JELCO. PT INC OF URINE. PT HAVING CHILLS, SAT IN 80'S FOR EMS ON RM AIR. PT ON N/C @3L. Source of Information: Patient, EMS Exam Limitations: No Limitations History of Present Illness Date Seen by Provider: Apr 13, 2023 Time Seen by Provider: 10:38 Initial Comments By EMS after being found sleeping behind a local restaurant. Patient was very weak. Does have abrasions to his face. EMS reports that the patient seemed a little confused and did have a temperature of 104 for them. They did initiate IV and started normal saline 1 L bolus which is continuing currently. Patient was noted to be hypoxic in the low 80s and was placed on oxygen at 3 L. He is wet and covered in urine and has some stool. Patient is confused and very hard of hearing. He apparently is currently homeless and has been for about a week. He is not giving great answers to questions at this point and just states he is cold and wants to roll over. Timing/Duration: 1-3 Hours Severity: Moderate Associated Systoms: Cough, Fever/Chills, Weakness Allergies and Home Medications Allergies Coded Allergies: ibuprofen (Verified Adverse Reaction, Unknown, Hypertension, pt has rec ASA in the past, 11/05/21) HYPERTENSION tramadol (Verified Adverse Reaction, Unknown, VOMIT, 10/03/18) Patient Home Medication List Home Medication List Reviewed: Yes Review of Systems Review of Systems Constitutional: see HPI, chills, fever, weakness Respiratory: cough Cardiovascular: No chest pain Gastrointestinal: No nausea, No vomiting Skin: change in color, lesions (Healing wounds to the face reportedly from fall a few weeks ago) Past Jcvnxkv-Paimzp-Scbbjh Hx Patient Social History Tobacco Use?: Yes Tobacco type used: Cigarettes Smoking Status: Current Everyday Smoker Substance use?: No Alcohol Use?: Yes Alcohol type: Hard Liquor Alcohol Frequency: Couple times a week Pt feels they are or have been: No Immunizations Up To Date Tetanus Booster (TDap): Unknown First/Initial COVID19 Vaccinat: 09/2021 Second COVID19 Vaccination Jl: 10/2021 Third COVID19 Vaccination Date: 09/2021 Seasonal Allergies Seasonal Allergies: No Past Medical History Surgery/Hospitalization HX: BACK X 3, ROTATOR CUFF X 3, APPENDIX, GALLBLADDER Surgeries: Yes Appendectomy, Gallbladder, Orthopedic Respiratory: No Currently Using CPAP: No Currently Using BIPAP: No Cardiac: Yes High Cholesterol, Hypertension Neurological: Yes TIA Gastrointestinal: Yes Gastroesophageal Reflux, Pancreatitis, Gall Bladder Disease Musculoskeletal: Yes Arthritis, Chronic Back Pain Endocrine: No HEENT: Yes Hearing Impairment: Hard of Hearing Cancer: No Skin Did You Recieve Any Treatments: Yes What Type of Treatment Did You: Surgical Intervention Adverse Reaction/Blood Tranf: No Family Medical History Reviewed Nursing Family Hx Cancer 03 FATHER (PROSTATE) 03 MOTHER (BREAST CA ) 09 BROTHER (THROAT/PANCREATIC) 09 SISTER (LIVER) DEAFNESS 03 FATHER 09 BROTHER Family history: Breast disease 03 MOTHER (BREAST CA) History of - respiratory disease Prostate cancer 03 FATHER Stroke 03 MOTHER Visual impairment Cancer, Stroke LONG HISTORY OF EXTREME NON-COMPLIANCE IN ALL ASPECTS OF CARE PT IS HOMELESS, AND HAS BEEN FOR A LONG TIME SOCIAL HISTORY: -SMOKES 2-3 PPD -ETOH--ABUSE/DAILY USE--ALSO DRINKS LARGE AMOUNTS OF NYQUIL DAILY; WITH HISTORY OF ALCOHOL WITHDRAWL SYMPTOMS -DRUGS-EXTENSIVE POLYSUBSTANCE ABUSE AND OVERDOSES--ESPECIALLY XANAX/BENZODIAZEPINES AND NARCOTICS/OPIATES; METHAMPHETAMINES -HAS HAD A MULTITUDE OF ACCIDENTS DUE TO SUBSTANCE ABUSE, HISTORY OF GETTING MULTIPLE RX'S FROM MULTIPROVIDERS USING MULTIPLE PHARMACIES; -HAS BEEN EVICTED FROM MULTIPLE REHAB /SUBSTANCE ABUSE TREATMENT FACILITIES, INCLUDING [facility], FOR EXTREME NON-COMPLIANCE. 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 % Physical Exam-Suspected Sepsis Physical Exam Vital Signs Vital Signs - First Documented Capillary Refill : Less Than 3 Seconds Blood Pressure Mean: 91 Height, Weight, BMI Height: 5'6.00" Weight: 130lbs. 2.0oz. 59.521720pi; 21.00 BMI Method:Stated General Appearance: Chronically ill, Thin HEENT: PERRL/EOMI, Other (His membranes dry) Neck: Non Tender, Supple Respiratory: No Respiratory Distress, Other (Coarse breath sounds bilateral) Cardiovascular: No Murmur, Tachycardia Gastrointestinal: Non Tender, Soft Extremity: Non Tender, No Calf Tenderness, No Pedal Edema Neurologic/Psychiatric: Alert, Oriented x3 Skin: normal color, warm/dry, other (Smells of urine and feces) Focused Exam Lactate Level 04/13/23 10:38: Lactic Acid Level 4.24*H Lactic Acid Level Laboratory Tests Test 04/13/23 10:38 Lactic Acid Level 4.24 MMOL/L (0.50-2.00) *H Progress/Results/Core Measures Suspected Sepsis SIRS Temperature: Pulse: 130 Respiratory Rate: 32 Laboratory Tests 04/13/23 10:38: White Blood Count 26.3H Blood Pressure 124 /75 Mean: 91 04/13/23 10:38: Lactic Acid Level 4.24*H Laboratory Tests 04/13/23 10:38: Creatinine 1.01, INR Comment 1.4, Platelet Count 215, Total Bilirubin 1.0 Results/Orders Lab Results Laboratory Tests Test 04/13/23 10:38 04/13/23 10:48 04/13/23 10:51 Range/Units White Blood Count 26.3 H 4.3-11.0 10^3/uL Red Blood Count 4.34 4.30-5.52 10^6/uL Hemoglobin 14.7 13.3-17.7 g/dL Hematocrit 44 40-54 % Mean Corpuscular Volume 100 H 80-99 fL Mean Corpuscular Hemoglobin 34 25-34 pg Mean Corpuscular Hemoglobin Concent 34 32-36 g/dL Red Cell Distribution Width 13.9 10.0-14.5 % Platelet Count 215 130-400 10^3/uL Mean Platelet Volume 9.6 9.0-12.2 fL Immature Granulocyte % (Auto) 2 % Neutrophils (%) (Auto) 90 H 42-75 % Lymphocytes (%) (Auto) 3 L 12-44 % Monocytes (%) (Auto) 6 0-12 % Eosinophils (%) (Auto) 0 0-10 % Basophils (%) (Auto) 0 0-10 % Neutrophils # (Auto) 23.6 H 1.8-7.8 10^3/uL Lymphocytes # (Auto) 0.7 L 1.0-4.0 10^3/uL Monocytes # (Auto) 1.4 H 0.0-1.0 10^3/uL Eosinophils # (Auto) 0.1 0.0-0.3 10^3/uL Basophils # (Auto) 0.1 0.0-0.1 10^3/uL Immature Granulocyte # (Auto) 0.4 H 0.0-0.1 10^3/uL Neutrophils % (Manual) 81 % Lymphocytes % (Manual) 3 % Monocytes % (Manual) 4 % Metamyelocytes % 1 % Band Neutrophils 11 % Blood Morphology Comment NORMAL Prothrombin Time 17.1 H 12.2-14.7 SEC INR Comment 1.4 0.8-1.4 Activated Partial Thromboplast Time 39 H 24-35 SEC Sodium Level 131 L 135-145 MMOL/L Potassium Level 2.8 L 3.6-5.0 MMOL/L Chloride Level 97 L 98-107 MMOL/L Carbon Dioxide Level 17 L 21-32 MMOL/L Anion Gap 17 H 5-14 MMOL/L Blood Urea Nitrogen 26 H 7-18 MG/DL Creatinine 1.01 0.60-1.30 MG/DL Estimat Glomerular Filtration Rate 81 BUN/Creatinine Ratio 26 Glucose Level 146 H 70-105 MG/DL Lactic Acid Level 4.24 *H 0.50-2.00 MMOL/L Calcium Level 8.9 8.5-10.1 MG/DL Corrected Calcium 9.5 8.5-10.1 MG/DL Total Bilirubin 1.0 0.1-1.0 MG/DL Aspartate Amino Transf (AST/SGOT) 45 H 5-34 U/L Alanine Aminotransferase (ALT/SGPT) 20 0-55 U/L Alkaline Phosphatase 80 40-136 U/L Troponin I < 0.028 <0.028 NG/ML Total Protein 7.0 6.4-8.2 GM/DL Albumin 3.3 3.2-4.5 GM/DL Urine Color ORANGE Urine Clarity SL CLOUDY Urine pH 5.5 5-9 Urine Specific [place] >=1.030 1.016-1.022 Urine Protein 2+ H NEGATIVE Urine Glucose (UA) NEGATIVE NEGATIVE Urine Ketones NEGATIVE NEGATIVE Urine Nitrite NEGATIVE NEGATIVE Urine Bilirubin 1+ H NEGATIVE Urine Urobilinogen 0.2 < = 1.0 MG/DL Urine Leukocyte Esterase NEGATIVE NEGATIVE Urine RBC (Auto) 2+ H NEGATIVE Urine RBC 2-5 H /HPF Urine WBC 2-5 /HPF Urine Squamous Epithelial Cells 5-10 /HPF Urine Crystals PRESENT H /LPF Urine Amorphous Sediment LARGE [place]NNETTE URATES H /LPF Urine Bacteria FEW H /HPF Urine Casts NONE /LPF Urine Mucus LARGE H /LPF Urine Culture Indicated CULTURE PENDING Influenza Type A (RT-PCR) Not Detected Not Detecte Influenza Type B (RT-PCR) Not Detected Not Detecte SARS-CoV-2 RNA (RT-PCR) Not Detected Not Detecte My Orders Orders - DIEGO NEWBERRY MD Cbc With Automated Diff (04/13/23 10:42) Comprehensive Metabolic Panel (04/13/23 10:42) Blood Culture (04/13/23 10:42) Sputum Culture (04/13/23 10:42) Urinalysis (04/13/23 10:42) Urine Culture (04/13/23 10:42) Protime With Inr (04/13/23 10:42) Partial Thromboplastin Time (04/13/23 10:42) Chest 1 View, Ap/Pa Only (04/13/23 10:42) Ed Iv/Invasive Line Start (04/13/23 10:42) Troponin I Desha (04/13/23 10:42) Vital Signs Adult Sepsis Patie Q15M (04/13/23 10:42) O2 (04/13/23 10:42) Remove Rings In Anticipation O (04/13/23 10:42) Lactic Acid Analyzer (04/13/23 10:42) Covid 19 Inhouse Test (04/13/23 10:42) Influenza A And B By Pcr (04/13/23 10:42) Manual Differential (04/13/23 10:38) Ct Head Wo (04/13/23 11:16) Ns Iv 1000 Ml (Ns Iv 1000 Ml) (04/13/23 11:16) Piperacillin/Tazobactam (Piperacillin/Ta (04/13/23 11:45) Alcohol (04/13/23 12:25) Medications Given in ED Current Medications Medications Dose Ordered Sig/Isabell Route Start Time Stop Time Status Last Admin Dose Admin Piperacillin Sod/ Tazobactam Sod 4.5 gm/Sodium Chloride 100 ml @ 200 mls/hr ONCE ONCE IV 04/13/23 11:45 04/13/23 12:14 DC 04/13/23 11:57 200 MLS/HR Vital Signs/I&O 04/13/23 04/13/23 04/13/23 10:35 10:35 11:59 Temp 39.0 Pulse 130 104 Resp 32 20 B/P (MAP) 124/75 (91) 121/72 Pulse Ox 94 93 94 O2 Delivery Nasal Cannula Nasal Cannula Nasal Cannula O2 Flow Rate 3.00 3.00 3.00 3.00 Capillary Refill : Less Than 3 Seconds Blood Pressure Mean: 91 Progress Note : Progress Note Seen and evaluated. IV by EMS. We will continue normal saline 1 L bolus initiated by EMS. We will initiate secondary IV. Sepsis work-up ordered including CBC, CMP, CRP, blood cultures, lactic acid chest x-ray. We will get CT of the head due to possibility of fall and facial to the left cheek and forehead monitor patient. We will get COVID and influenza screen. Sepsis from pneumonia or UTI, viral illness, dehydration, electrolyte abnormality, intracranial hemorrhage 1130: Lactic acid is 4.24. I have ordered second liter of normal saline which will give him the 30 mL/kg bolus required for severe sepsis protocol. Blood pressure currently 121/69 with heart rate of 105. 1145: Zosyn 4.5 g added as patient has large right lower lobe pneumonia and possibly bilateral lower lobe pneumonia on chest x-ray on my interpretation. I did discuss the case with Dr. Fitzgerald. He does have elevated white count at 26,000 with left shift with coagulopathy noted with increased PT/INR and coag studies. Chemistry is abnormal with potassium of 2.8 and normal LFTs and normal creatinine. COVID and flu are negative. UA shows concentration. Given the grossly elevated lactic acid and bilateral pneumonia, admission is indicated and patient should go to the ICU for severe sepsis concerns. Dr. Fitzgerald has excepted patient for admission, inpatient status. I will write bridge orders. Pending CT of the head. Monitor patient 1227: I did review CT of the head and do not see any obvious intracranial hemorrhage on my interpretation. I did call report to the eICU physician on-call and discussed current findings and treatment. Patient's blood pressure 128/96 and heart rate in the 90s currently. I attest to focused exam at this time. Diagnostic Imaging Diagonstic Imaging: Xray Plain Films/CT/US/NM/MRI: chest Comments [facility] [place], [place] NAME: LUZ ELENA CALDWELL [employer] REC#: [id number] PT STATUS: REG ER : 1955 PHYSICIAN: DIEGO NEWBERRY MD ADMIT DATE: 04/13/23/ER Draft Date of Exam:04/13/23 CHEST 1 VIEW, AP/PA ONLY INDICATION: Fever, chills, found outside. TECHNIQUE: Single view chest at 11:04 AM. CORRELATION STUDY: 04/02/2023. FINDINGS: New infiltrate-like opacity of the right and to a lesser degree the left lung base near the costophrenic angles. Findings are superimposed on advanced emphysematous lung disease. Heart size and mediastinum are normal. Vasculature is normal at followup. Partially visualized multifocal ACDF and lumbosacral spinal fixation hardware. IMPRESSION: Bibasilar infiltrate-like opacities, right greater than left. Given distribution, aspiration is a diagnostic consideration. Findings are superimposed on apparent chronic lung disease. Followup imaging to resolution is recommended. Dictated on workstation # [id number] Dict: 04/13/23 1125 Trans: 04/13/23 1135 [id number] Interpreted by: ELI MINAYA DO Electronically signed by: Diagonstic Imaging: CT Plain Films/CT/US/NM/MRI: head Comments [facility]. [place], [place] NAME: LUZ ELENA CALDWELL [employer] REC#: [id number] PT STATUS: REG ER : 1955 PHYSICIAN: DIEGO NEWBERRY MD ADMIT DATE: 04/13/23/ER Draft Date of Exam:04/13/23 CT HEAD WO PROCEDURE: CT head without contrast. TECHNIQUE: Multiple contiguous axial images were obtained through the brain without the use of intravenous contrast. Auto Exposure Controls were utilized during the CT exam to meet ALARA standards for radiation dose reduction. INDICATION: Weakness and fall and head pain. Comparison is made with prior head CT from 04/08/2023. Ventricles and sulci are stable in appearance. There is moderate periventricular low-attenuation consistent with chronic microvascular ischemia. No sulcal effacement or midline shift is identified. No acute intra-axial or extra-axial hemorrhage is detected. Cisterns are patent. Visualized paranasal sinuses are clear. IMPRESSION: Stable chronic changes of microvascular ischemia. No acute intracranial process is detected. Dictated on workstation # [id number] Dict: 04/13/23 1229 Trans: 04/13/23 1232 [facility] [id number] Interpreted by: NEW FLETCHER MD Electronically signed by: Critical Care Note Critical Care Start Time: 10:38 Stop Time: 12:45 Total Time (minutes) 30 Progress See progress note for details. Time excludes separately billable procedures. Departure Communication (Admissions) Time/Spoke to Admitting Phy: 11:45 Impression Primary Impression: Pneumonia of both lower lobes Qualified Codes: J18.9 - Pneumonia, unspecified organism Additional Impression: Severe sepsis Disposition: ADMITTED INPATIENT Condition: Critical Admissions Decision to Admit Reason: Admit from ER (General) Decision to Admit/Date: Apr 13, 2023 Time/Decision to Admit Time: 11:45 Departure-Patient Inst. Referrals: [facility] [place] Primary Care Physician DIEGO NEWBERRY MD Apr 13, 2023 10:57
[2023-04-13 10:58] LABS: CARBON DIOXIDE 17 MMOL/L (21-32)
[2023-04-13 10:59] LABS: INR 1.4 (0.8-1.4); PROTHROMBIN TIME PATIENT 17.1 SEC (12.2-14.7)
[2023-04-13 11:00] LABS: ALKALINE PHOSPHATASE 80 U/L (40-136); CREATININE SERUM 1.01 MG/DL (0.60-1.30); GFR ESTIMATED 81
[2023-04-13 11:01] LABS: BUN/CREATININE RATIO 26
[2023-04-13 11:03] LABS: ALANINE AMINOTRANSFERASE 20 U/L (0-55)
[2023-04-13 11:05] LABS: CLARITY,URINE SL CLOUDY; COLOR,URINE ORANGE; PH,URINE 5.5 (5-9); PROTEIN,URINE 2+ (NEGATIVE)
[2023-04-13 11:06] LABS: BILIRUBIN,URINE 1+ (NEGATIVE); GLUCOSE, URINE (UA) NEGATIVE (NEGATIVE); KETONES,URINE NEGATIVE (NEGATIVE); LEUKOCYTE ESTERASE ,URINE NEGATIVE (NEGATIVE); NITRITE,URINE NEGATIVE (NEGATIVE)
[2023-04-13 11:07] LABS: AMORPHOUS SEDIMENT,UR LARGE AMOR URATES /LPF; BACTERIA,URINE FEW /HPF
[2023-04-13] MEDS ORDERED: NS IV 1000 ML 1,000 ML IV STA (11:16)
--- NOTE | 2023-04-13 11:35 | Diagnostic Imaging Report ---
INDICATION: Fever, chills, found outside. TECHNIQUE: Single view chest at 11:04 AM. CORRELATION STUDY: 04/02/2023. FINDINGS: New infiltrate-like opacity of the right and to a lesser degree the left lung base near the costophrenic angles. Findings are superimposed on advanced emphysematous lung disease. Heart size and mediastinum are normal. Vasculature is normal at followup. Partially visualized multifocal ACDF and lumbosacral spinal fixation hardware. IMPRESSION: Bibasilar infiltrate-like opacities, right greater than left. Given distribution, aspiration is a diagnostic consideration. Findings are superimposed on apparent chronic lung disease. Followup imaging to resolution is recommended. Dictated by: Dictated on workstation # [id number]
[2023-04-13 11:36] LABS: BAND NEUTROPHILS 11 %; LYMPHOCYTES % (MANUAL) 3 %; METAMYELOCYTES % 1 %; MONOCYTES % (MANUAL) 4 %; NEUTROPHILS % (MANUAL) 81 %; RBC MORPH NORMAL
[2023-04-13] MEDS ORDERED: PIPERACILLIN/Tazobactam 4.5 GM in NS (IVPB) 100 ML 100 ML IV ONE (11:45)
--- NOTE | 2023-04-13 12:32 | Diagnostic Imaging Report ---
PROCEDURE: CT head without contrast. TECHNIQUE: Multiple contiguous axial images were obtained through the brain without the use of intravenous contrast. Auto Exposure Controls were utilized during the CT exam to meet ALARA standards for radiation dose reduction. INDICATION: Weakness and fall and head pain. Comparison is made with prior head CT from 04/08/2023. Ventricles and sulci are stable in appearance. There is moderate periventricular low-attenuation consistent with chronic microvascular ischemia. No sulcal effacement or midline shift is identified. No acute intra-axial or extra-axial hemorrhage is detected. Cisterns are patent. Visualized paranasal sinuses are clear. IMPRESSION: Stable chronic changes of microvascular ischemia. No acute intracranial process is detected. Dictated by: Dictated on workstation # [id number]
[2023-04-13] MEDS ORDERED: ONDANSETRON INJECTION 4 MG/2 ML (SDV) IV PRN (14:15)
[2023-04-13] MEDS ORDERED: ACETAMINOPHEN 325 MG TABLET PO PRN (14:15)
--- NOTE | 2023-04-13 14:19 | Tele-ICU Consult ---
History of Present Illness History of Present Illness Date Seen by Provider: Apr 13, 2023 Time Seen by Provider: 14:18 Date of Admission History of Present Illness (Tele-ICU Physician , consultation as per request of PCP Service provided via interactive audio and video telecommunPressMatrix E-CARE system to a patient admitted to ICU bed in [facility], [place], operated by [facility]. Available chart/ vitals / labs / Images reviewed H&P is from ER notes Patient's information available about PMH, Shx, Fhx allergy reviewed inEMR. ROS as per chart and RN report Now in ICU, hemodynamically stable Video assessment done using teleICU camera, rest of exam as per RN Discussed with RN. Hospital course: (04/13) 68M homeless with long history of extensive substance abuse/ETOH and non compliance been evicted from multiple rehabs, admitted for septic shock PNA A/P Sepsis - received > 30 cc/kf bolises - ABX started , cx pending PNA RIGHT ( NEG covid and flu ) - ? aspiration - zosyn started Acute hypoxix resp failure - due to PNA Encephalopathy - presumed TME - CTH 04/13 - stable microvascular ischemia , no acute findings - improving Hypokalemia- replace Hyponatremia- mild - monitor Lactatemia - with hypoxia and sepsis - folow with tratment COPD CTA chest 04/02/23: - severe emphysema ( NO pe ) - cont nebs H/p pancretitis ( ETOH ) ETOH abuse - vitamins - monitor , CIWA H/o abn EKG , bradycardia , HTN - noncompliant with tests / w-up /Tx / recom Lines : , (Central Line Necessity Reviewed) Parada: OG: Nutrition: Analgesia: Anxiety/ delirium VTE Prophylaxis: Stress Ulcer Prophylaxis: Plans in collaboration with bedside consultants and IM MDs. Discussed with RN to reach out if any questions or concerns A total of _ minutes of critical care time was devoted to this patient today, required to treat and/or prevent further deterioration of critical care condition ( as above ) . I am remotely monitoring this patient from another state. I am unable to do the bedside exam, and history/physical and pertinent information is taken from other notes in the computer and bedside staff. . Allergies and Home Medications Allergies Coded Allergies: ibuprofen (Verified Adverse Reaction, Unknown, Hypertension, pt has rec ASA in the past, 11/05/21) HYPERTENSION tramadol (Verified Adverse Reaction, Unknown, VOMIT, 10/03/18) Past Medical/Social/Family Hx Patient Social History Tobacco Use?: Yes Tobacco type used: Cigarettes Smoking Status: Current Everyday Smoker Substance use?: No Alcohol Use?: Yes Alcohol type: Hard Liquor Alcohol Frequency: Couple times a week Pt stated abuse/neglect: No Immunizations Up To Date First/Initial COVID19 Vaccinat: 09/2021 Second COVID19 Vaccination Jl: 10/2021 Tetanus Booster (TDap): Less Than 5 Years Hepatitis A: No Hepatitis B: No Date of Pneumonia Vaccine: Jun 05, 2020 Current Status Advance Directives: No Communicates: Verbally Primary Language: Citizen Of [place] Preferred Spoken Language: Citizen Of [place] Is interpretation needed?: No Implanted or Applied [employer] D: Orthopedic hardware Past Medical History PMHx: Denies SurgHx: Back surgery x 3 Neck surgery x 3 Cholecystectomy Appendectomy Rotator cuff repair left Family Medical History Family Hx: LONG HISTORY OF EXTREME NON-COMPLIANCE IN ALL ASPECTS OF CARE PT IS HOMELESS, AND HAS BEEN FOR A LONG TIME SOCIAL HISTORY: -SMOKES 2-3 PPD -ETOH--ABUSE/DAILY USE--ALSO DRINKS LARGE AMOUNTS OF NYQUIL DAILY; WITH HISTORY OF ALCOHOL WITHDRAWL SYMPTOMS -DRUGS-EXTENSIVE POLYSUBSTANCE ABUSE AND OVERDOSES--ESPECIALLY XANAX/BENZODIAZEPINES AND NARCOTICS/OPIATES; METHAMPHETAMINES -HAS HAD A MULTITUDE OF ACCIDENTS DUE TO SUBSTANCE ABUSE, HISTORY OF GETTING MULTIPLE RX'S FROM MULTIPROVIDERS USING MULTIPLE PHARMACIES; -HAS BEEN EVICTED FROM MULTIPLE REHAB /SUBSTANCE ABUSE TREATMENT FACILITIES, INCLUDING [facility], FOR EXTREME NON-COMPLIANCE. 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 % Review of Systems Constitutional: other Focused Exam Sepsis Stage: Severe Sepsis Lactate Level 04/13/23 10:38: Lactic Acid Level 4.24*H 04/13/23 12:55: Lactic Acid Level 2.09*H Height, Weight, BMI Height: 5'6.00" Weight: 130lbs. 2.0oz. 59.187094rx; 21.00 BMI Method:Stated Respiratory: Other Cardiovascular: Other Skin: other Lactic Acid Level Laboratory Tests Test 04/13/23 10:38 04/13/23 12:55 Lactic Acid Level 4.24 MMOL/L (0.50-2.00) *H 2.09 MMOL/L (0.50-2.00) *H Within 3hrs of presentation: Admin fluids, Admin ABX, Blood cultures prior to ABX's, Focus exam, Lactate level Exam Exam Patient acknowledged, consented, and participated in this virtual visit which was conducted using real time audio/video Vital Signs Date Time Temp Pulse Resp B/P (MAP) Pulse Ox O2 Delivery O2 Flow Rate FiO2 04/13/23 13:45 114 40 125/65 (85) 90 Nasal Cannula 3.00 04/13/23 13:39 114 04/13/23 13:30 101 44 111/62 (78) 100 Nasal Cannula 3.00 04/13/23 13:15 101 28 101/61 (74) 100 Nasal Cannula 3.00 04/13/23 13:00 103 28 105/65 (78) 100 Nasal Cannula 3.00 04/13/23 12:45 106 28 107/84 (92) 100 Nasal Cannula 3.00 04/13/23 11:59 104 20 121/72 94 Nasal Cannula 3.00 3.00 04/13/23 10:35 93 Nasal Cannula 3.00 04/13/23 10:35 39.0 130 32 124/75 (91) 94 Nasal Cannula 3.00 Height & Weight Height: 5'6.00" Weight: 130lbs. 2.0oz. 59.716589gb; 21.00 BMI Method:Stated General Appearance: Chronically ill, Thin HEENT: PERRL/EOMI, Other (His membranes dry) Neck: Non Tender, Supple Respiratory: No Respiratory Distress, Other (Coarse breath sounds bilateral) Cardiovascular: No Murmur, Tachycardia Capillary Refill: Less Than 3 Seconds Extremity: Non Tender, No Calf Tenderness, No Pedal Edema Neurologic/Psychiatric: Alert, Oriented x3 Results Lab Laboratory Tests 04/13/23 10:38 Assessment/Plan Assessment/Plan 1 DEB MELTON MD Apr 13, 2023 14:19
[2023-04-13 14:23] VITALS: BP 125/65
[2023-04-13] MEDS ORDERED: RT-Ipratropium/Albuterol NEB 3 ML VIAL INH PRN (14:45)
[2023-04-13] MEDS: LACTATED RINGERS 1,000 ML 1,000 ML IV SCH ×2 (15:06→22:04)
[2023-04-13] MEDS: ENOXAPARIN 40 MG/0.4 ML SYRINGE SC SCH (15:07)
[2023-04-13] MEDS: RT-Ipratropium/Albuterol NEB 3 ML VIAL INH SCH ×2 (15:19→21:36)
[2023-04-13] MEDS ORDERED: LIDOCAINE UROJET 2% GEL 10 ML PKG ONE (15:26)
[2023-04-13] MEDS ORDERED: NS IV 500 ML 500 ML IV PRN (16:15)
[2023-04-13] MEDS ORDERED: 1/2 NS IV SOLUTION 1000 ML 1,000 ML IV PRN (16:15)
[2023-04-13] MEDS ORDERED: D5 1/2 NS 1,000 ML IV 1,000 ML IV PRN (16:15)
[2023-04-13] MEDS ORDERED: LORazepam 1 MG TABLET PO PRN (16:15)
[2023-04-13] MEDS: MAGNESIUM 1 GM/100 ML IVPB 100 ML IV SCH ×2 (17:27→18:53)
[2023-04-13] MEDS: POTASSIUM CL 10MEQ/50ML IVPB 50 ML IV SCH ×7 (17:27→23:11)
[2023-04-13] MEDS ORDERED: LACTATED RINGERS 1,000 ML 1,000 ML IV ONE (18:30)
[2023-04-13] MEDS ORDERED: POTASSIUM CHLORIDE 20 MEQ TABLET PO NR (18:45)
[2023-04-13] MEDS: PIPERACILLIN/Tazobactam 4.5 GM in NS (IVPB) 100 ML 100 ML IV SCH (18:50)
[2023-04-13 22:19] LABS: POTASSIUM 2.8 MMOL/L (3.6-5.0)
[2023-04-13 22:26] LABS: MAGNESIUM 2.3 MG/DL (1.6-2.4)
[2023-04-13] MEDS: DexMEDEtomidine 1,000mcg/250ml 250 ML IV SCH (23:10)
[2023-04-14] MEDS: POTASSIUM CL 10MEQ/50ML IVPB 50 ML IV SCH ×6 (00:04→08:32)
[2023-04-14] MEDS: PIPERACILLIN/Tazobactam 4.5 GM in NS (IVPB) 100 ML 100 ML IV SCH ×3 (01:51→17:46)
[2023-04-14] MEDS: RT-Ipratropium/Albuterol NEB 3 ML VIAL INH SCH ×4 (02:21→20:25)
[2023-04-14] MEDS: LACTATED RINGERS 1,000 ML 1,000 ML IV SCH ×3 (04:05→17:46)
[2023-04-14 04:45] LABS: BASOPHILS % (AUTO) 0 % (0-10); EOSINOPHILS % (AUTO) 0 % (0-10); HEMATOCRIT 35 % (40-54); HEMOGLOBIN 11.8 g/dL (13.3-17.7); LYMPHOCYTES # (AUTO) 0.3 10^3/uL (1.0-4.0); LYMPHOCYTES % (AUTO) 2 % (12-44); MEAN CORPUSCULAR HEMOGLOBIN 34 pg (25-34); MEAN CORPUSCULAR HGB CONC 34 g/dL (32-36); MEAN CORPUSCULAR VOLUME 98 fL (80-99); MEAN PLATELET VOLUME 10.1 fL (9.0-12.2); MONOCYTES # (AUTO) 0.4 10^3/uL (0.0-1.0); MONOCYTES % (AUTO) 3 % (0-12); NEUTROPHILS # (AUTO) 14.4 10^3/uL (1.8-7.8); NEUTROPHILS % (AUTO) 95 % (42-75); PLATELET COUNT 136 10^3/uL (130-400); WHITE BLOOD COUNT 15.2 10^3/uL (4.3-11.0)
[2023-04-14 04:59] LABS: ALBUMIN 2.3 GM/DL (3.2-4.5); POTASSIUM 3.1 MMOL/L (3.6-5.0)
[2023-04-14 05:00] LABS: CALCIUM 7.8 MG/DL (8.5-10.1)
[2023-04-14 05:02] LABS: TOTAL PROTEIN 4.8 GM/DL (6.4-8.2)
[2023-04-14 05:03] LABS: BILIRUBIN,TOTAL 0.5 MG/DL (0.1-1.0)
[2023-04-14 05:05] LABS: CREATININE SERUM 0.8 MG/DL (0.60-1.30); PHOSPHORUS 2.5 MG/DL (2.3-4.7)
[2023-04-14 05:08] LABS: MAGNESIUM 2.1 MG/DL (1.6-2.4)
[2023-04-14] MEDS ORDERED: POTASSIUM CL 10MEQ/50ML IVPB 200 ML IV ONE (05:11)
[2023-04-14] MEDS: POTASSIUM CHLORIDE 20 MEQ TABLET PO SCH (05:18)
[2023-04-14] MEDS: MAGNESIUM 1 GM/100 ML IVPB 100 ML IV SCH (05:18)
[2023-04-14] MEDS: THIAMINE 100 MG (VITAMIN B-1) TAB PO SCH (06:43)
[2023-04-14 07:13] VITALS: BP 103/67
[2023-04-14] MEDS: THIAMINE INJECTION 100 MG in NS (IVPB) 50 ML 50 ML IV SCH (08:31)
--- NOTE | 2023-04-14 09:05 | Tele-ICU Progress Note ---
Subjective Date Seen by a Provider: Apr 14, 2023 Time Seen by a Provider: 09:02 Subjective/Events-last exam (Tele-ICU Physician , consultation as per request of PCP Service provided via interactive audio and video telecommunications E-CARE system to a patient admitted to ICU bed in [facility]. Available chart/ vitals / labs / Images reviewed H&P is from ER notes Patient's information available about PMH, Shx, Fhx allergy reviewed inEMR. ROS as per chart and RN report Now in ICU, hemodynamically stable Video assessment done using teleICU camera, rest of exam as per RN Discussed with RN. Hospital course: (04/13) 68M homeless with long history of extensive substance abuse/ETOH and non compliance been evicted from multiple rehabs, admitted for septic shock PNA, on IV Zosyn, WBC down from 26k, now 15, LA down from 4.31 to 1.5 Still on BIPAP 15/5 FiO2 40%, moderate WOB, has good cough, on IV Precedex @ 0.5 Getting tremulous, better with IV Precedex, mild diaphoresis, CIWA score 7 Sepsis Event Evaluation Height, Weight, BMI Height: 5'6.00" Weight: 130lbs. 2.0oz. 59.487237zx; 23.29 BMI Method:Stated Focused Exam Lactate Level 04/13/23 16:55: Lactic Acid Level 3.16*H 04/13/23 22:00: Lactic Acid Level 4.31*H 04/14/23 04:33: Lactic Acid Level 1.50 Exam Exam Patient acknowledged, consented, and participated in this virtual visit which was conducted using real time audio/video Vital Signs Date Time Temp Pulse Resp B/P (MAP) Pulse Ox O2 Delivery O2 Flow Rate FiO2 04/14/23 08:00 95 37 105/63 (77) 91 NIV CPAP 50.00 04/14/23 07:46 37.1 04/14/23 07:13 84 39 92 55.00 04/14/23 07:10 84 04/14/23 07:00 85 37 103/67 (79) 92 NIV CPAP 50.00 04/14/23 06:30 85 38 101/61 (69) 90 NIV CPAP 50.00 04/14/23 06:15 85 37 102/63 (72) 92 NIV CPAP 50.00 04/14/23 06:00 85 37 103/62 (75) 92 NIV CPAP 50.00 04/14/23 05:45 84 36 101/66 (71) 89 NIV CPAP 50.00 04/14/23 05:30 84 35 104/69 (80) 89 NIV CPAP 50.00 04/14/23 05:15 84 36 110/67 (81) 91 NIV CPAP 50.00 04/14/23 05:00 85 36 109/68 (80) 91 NIV CPAP 50.00 04/14/23 04:45 85 37 100/65 (71) 91 NIV CPAP 50.00 04/14/23 04:30 86 30 94/62 (69) 91 NIV CPAP 50.00 04/14/23 04:24 37.4 04/14/23 04:15 88 96/60 (73) NIV CPAP 50.00 04/14/23 04:04 86 98/63 04/14/23 04:00 90 NIV CPAP 50 04/14/23 04:00 86 34 98/63 (69) 90 NIV CPAP 50.00 04/14/23 03:45 89 36 98/63 (75) 93 NIV CPAP 50.00 04/14/23 03:20 92 37 91 OxyMask 5.00 04/14/23 03:00 94 41 119/64 (79) 91 Nasal Cannula 3.00 04/14/23 02:45 117/60 (78) Nasal Cannula 3.00 04/14/23 02:30 95 40 116/74 (88) 93 Nasal Cannula 3.00 04/14/23 02:21 98 Nasal Cannula 3.00 04/14/23 02:15 93 39 113/70 (81) 90 Nasal Cannula 3.00 04/14/23 02:00 94 38 123/66 (87) 92 Nasal Cannula 3.00 04/14/23 01:45 119/63 (78) 04/14/23 01:30 97 37 123/63 (73) 97 Nasal Cannula 3.00 04/14/23 01:15 114/67 (79) Nasal Cannula 3.00 04/14/23 01:00 100 04/14/23 01:00 99 20 105/57 (69) 98 Nasal Cannula 3.00 04/14/23 00:45 104 38 121/68 (85) 97 Nasal Cannula 3.00 04/14/23 00:30 105 35 104/70 (77) 97 Nasal Cannula 3.00 04/14/23 00:15 102 39 102/60 (69) 93 Nasal Cannula 3.00 04/14/23 00:05 37.9 04/14/23 00:00 112 40 116/63 (80) 95 Nasal Cannula 3.00 04/13/23 23:59 92 Nasal Cannula 3.00 04/13/23 23:15 123 51 89/67 (71) 93 Nasal Cannula 3.00 04/13/23 23:10 125 121/109 04/13/23 23:00 125 25 121/109 (113) 92 Nasal Cannula 3.00 04/13/23 22:45 35 104/37 (55) Nasal Cannula 3.00 04/13/23 22:30 124 38 112/83 (89) 89 Nasal Cannula 3.00 04/13/23 22:15 124 35 126/110 (113) 94 Nasal Cannula 3.00 04/13/23 22:00 39 110/98 (102) 94 Nasal Cannula 3.00 04/13/23 21:45 112 47 105/77 (94) 88 Nasal Cannula 3.00 04/13/23 21:36 96 Nasal Cannula 5.00 04/13/23 21:30 106 32 119/94 (105) 95 Nasal Cannula 3.00 04/13/23 21:15 99 38 131/70 (93) 89 Nasal Cannula 3.00 04/13/23 21:08 19 129/85 (99) 91 Nasal Cannula 3.00 04/13/23 21:05 36 65/34 (45) 93 Nasal Cannula 3.00 04/13/23 21:00 40 81/81 (81) 94 Nasal Cannula 3.00 04/13/23 20:45 114 24 91/61 (75) 94 Nasal Cannula 3.00 04/13/23 20:30 36 119/64 (85) 95 Nasal Cannula 3.00 04/13/23 20:20 39 79/48 (50) 96 Nasal Cannula 3.00 04/13/23 20:15 31 95/90 (91) 100 Nasal Cannula 3.00 04/13/23 20:15 90 Nasal Cannula 3.00 04/13/23 20:00 32 111/97 (100) 99 Nasal Cannula 3.00 04/13/23 19:45 96 32 118/108 (113) 100 Nasal Cannula 3.00 04/13/23 19:42 37.0 04/13/23 19:30 28 87/71 (79) 100 Nasal Cannula 3.00 04/13/23 19:15 31 91/78 (84) 100 Nasal Cannula 3.00 04/13/23 19:00 99 04/13/23 19:00 27 77/60 (66) 79 Nasal Cannula 3.00 04/13/23 18:00 87 21 94/53 (67) 94 Nasal Cannula 3.00 04/13/23 17:00 98 39 101/60 (74) 89 Nasal Cannula 3.00 04/13/23 16:07 36.8 04/13/23 16:00 116 32 117/55 (75) 97 Nasal Cannula 3.00 04/13/23 16:00 90 Nasal Cannula 3.00 04/13/23 15:37 37.7 04/13/23 15:07 37.9 04/13/23 15:00 122 13 123/98 (106) 90 Nasal Cannula 3.00 04/13/23 14:23 39.0 114 90 04/13/23 14:15 122 48 154/81 (105) 90 Nasal Cannula 3.00 04/13/23 13:45 114 40 125/65 (85) 90 Nasal Cannula 3.00 04/13/23 13:39 114 04/13/23 13:30 101 44 111/62 (78) 100 Nasal Cannula 3.00 04/13/23 13:15 101 28 101/61 (74) 100 Nasal Cannula 3.00 04/13/23 13:00 103 28 105/65 (78) 100 Nasal Cannula 3.00 04/13/23 12:45 106 28 107/84 (92) 100 Nasal Cannula 3.00 04/13/23 11:59 104 20 121/72 94 Nasal Cannula 3.00 3.00 04/13/23 10:35 93 Nasal Cannula 3.00 04/13/23 10:35 39.0 130 32 124/75 (91) 94 Nasal Cannula 3.00 I & O 04/14/23 07:00 Intake Total 81609 ml Output Total 625 ml Balance 05027 ml Height & Weight Height: 5'6.00" Weight: 130lbs. 2.0oz. 59.672999uh; 23.29 BMI Method:Stated General Appearance: Chronically ill, Mild Distress, Thin HEENT: PERRL/EOMI, Other (His membranes dry) Neck: Non Tender, Supple Respiratory: No Respiratory Distress, Other (Coarse breath sounds bilateral erik on left) Cardiovascular: Regular Rate, Rhythm, No Murmur, Tachycardia Capillary Refill: Less Than 3 Seconds Gastrointestinal: normal bowel sounds, non tender, soft Extremity: Non Tender, No Calf Tenderness, No Pedal Edema, Other Neurologic/Psychiatric: Alert, Oriented x3, Disoriented Skin: Other (cuts and abrasions all over) Results Lab Laboratory Tests 04/13/23 10:38 04/13/23 22:00 04/14/23 04:33 Assessment/Plan Assessment/Plan PNA, possible aspiration, will continue IVF and abx, Mg and potassium have been replaced watch for drug or ETOH withdrawal, continue IV Prededex, follow CIWA score spoke with application processor: Critically Ill Patient Time spent with patient (mins): 25 DAIN TRIVEDI MD Apr 14, 2023 09:05
[2023-04-14 09:08] LABS: ABG BASE EXCESS -6.3 MMOL/L (-2.5-2.5); ABG OXYGEN SATURATION 95 % (94-100); ABG PCO2 36 MMHG (35-45); ABG PO2 80 MMHG (79-93); ABG TCO2 19.7 MMOL/L (21.0-31.0)
[2023-04-14 09:11] LABS: ABG PH 7.33 (7.37-7.43); ALLENS TEST POSITIVE; PATIENT TEMP 37.1; VENTILATOR YES
--- NOTE | 2023-04-14 09:38 | Diagnostic Imaging Report ---
CHEST 1 VIEW, AP/PA ONLY INDICATION: Hypoxia. COMPARISON: Chest radiograph on 04/13/2023. FINDINGS: Lungs: Normal lung volume. Increased bibasilar airspace opacities. Pleura: Increased small bilateral pleural effusions. Heart and Mediastinum: Cardiomediastinal silhouette and great vessels of the thorax are stable. Osseous Structures and Soft Tissues: No acute osseous abnormality. Normal soft tissues. IMPRESSION: Increased bibasilar airspace opacities and small bilateral pleural effusions. Dictated by: Dictated on workstation # [id number]
[2023-04-14 11:04] VITALS: BP 107/66
--- NOTE | 2023-04-14 11:53 | History & Physical ---
DEMETRIUS RECINOS 04/14/23 1153: History of Present Illness History of Present Illness Reason for visit/HPI HPI limited to chart review due to patient being sedated when seen. Mr. Tidwell is a 68 male who was found by EMS on the laying on the ground outside of a local restaurant on 28aug. At that time he was reported by EMS to be stuporous and appeared to be confused. Mr. Tidwell had an elevated body temp of 104 o2 sat in low 80's, abrasions to his face and shoulder, with some urine and feces on his clothes. At that time he was given a 1L fluid bolus and started on 3L O2 and br ought to the [facility] ED. Patient is known to have history of EToH abuse, admitted to [facility] in february 2023 for EToH pancreatitis. ED course Labs CBC notable for luekocytosis L shift. CMP- notable for hyponeutemia and hypokalemia Gap: 17 CO2 17, Lactic Acid- 4.24 Imagining CXR- RLL infiltrate possible aspiration PNA CT head- stable miscrovascular changes when compared to previous imaging. Medications- 1L NS bolus, Zoysn Admitted to ICU for acute on chronic repository distress 2/2 PNA/ possible Sepsis and suspected EToH withdrawal Continued to have increasing O2 demands overnight, switched to CPAP then BiPAP sats in low 90's on 50L RR high 30s low 40s CO2 17 CIWA-20 given ativan 2mg patient was persistently agitated, and having marked tremors. Precedex started at 0.2, increased to 0.314 Date of Admission Apr 13, 2023 at 12:37 Date Seen by a Provider: Apr 14, 2023 Time Seen by a Provider: 09:45 I consulted on this patient on 04/14/23 11:48 Attending Physician [facility] Dr. Huerta Admitting Physician Admitting Physician: Caryn Huerta MD Attending Physician: Caryn Huerta MD Consult Allergies and Home Medications Allergies Coded Allergies: ibuprofen (Verified Adverse Reaction, Unknown, Hypertension, pt has rec ASA in the past, 11/05/21) HYPERTENSION tramadol (Verified Adverse Reaction, Unknown, VOMIT, 10/03/18) Patient Home Medication List Home Medication List Reviewed: No Past Vqiledx-Lygpts-Rqtlee Hx Patient Social History Tobacco Use?: Yes Tobacco type used: Cigarettes Smoking Status: Current Everyday Smoker Substance use?: No Additional substance use comme: PATIENT DENIES BUT THERE IS A KNOWN HX Alcohol Use?: No Alcohol type: Hard Liquor Additional alcohol type: PATIENT DENIES BUT THERE IS A KNOWN HX Alcohol Frequency: Couple times a week Pt feels they are or have been: Unable to obtain Immunizations Up To Date Date of Influenza Vaccine: Jun 05, 2020 First/Initial COVID19 Vaccinat: 09/2021 Second COVID19 Vaccination Jl: 10/2021 Tetanus Booster (TDap): Less Than 5 Years Hepatitis A: No Hepatitis B: No Date of Pneumonia Vaccine: Jun 05, 2020 Seasonal Allergies Seasonal Allergies: No Current Status Advance Directives: No Communicates: Verbally Primary Language: American Preferred Spoken Language: American Is interpretation needed?: No Implanted or Applied Medical D: None Past Medical History Surgeries: Appendectomy, Gallbladder, Orthopedic Currently Using CPAP: No Currently Using BIPAP: No High Cholesterol, Hypertension TIA Gastroesophageal Reflux, Pancreatitis, Gall Bladder Disease Arthritis, Chronic Back Pain Hearing Impairment: Hard of Hearing Skin Did You Recieve Any Treatments: Yes What Type of Treatment Did You: Surgical Intervention Adverse Reaction/Blood Tranf: No PMHx: Denies SurgHx: Back surgery x 3 Neck surgery x 3 Cholecystectomy Appendectomy Rotator cuff repair left Family Medical History Reviewed Nursing Family Hx Cancer 03 FATHER (PROSTATE) 03 MOTHER (BREAST CA ) 09 BROTHER (THROAT/PANCREATIC) 09 SISTER (LIVER) DEAFNESS 03 FATHER 09 BROTHER Family history: Breast disease 03 MOTHER (BREAST CA) History of - respiratory disease Prostate cancer 03 FATHER Stroke 03 MOTHER Visual impairment Cancer, Stroke LONG HISTORY OF EXTREME NON-COMPLIANCE IN ALL ASPECTS OF CARE PT IS HOMELESS, AND HAS BEEN FOR A LONG TIME SOCIAL HISTORY: -SMOKES 2-3 PPD -ETOH--ABUSE/DAILY USE--ALSO DRINKS LARGE AMOUNTS OF NYQUIL DAILY; WITH HISTORY OF ALCOHOL WITHDRAWL SYMPTOMS -DRUGS-EXTENSIVE POLYSUBSTANCE ABUSE AND OVERDOSES--ESPECIALLY XANAX/BENZODIAZEPINES AND NARCOTICS/OPIATES; METHAMPHETAMINES -HAS HAD A MULTITUDE OF ACCIDENTS DUE TO SUBSTANCE ABUSE, HISTORY OF GETTING MULTIPLE RX'S FROM MULTIPROVIDERS USING MULTIPLE PHARMACIES; -HAS BEEN EVICTED FROM MULTIPLE REHAB /SUBSTANCE ABUSE TREATMENT FACILITIES, INCLUDING [facility], FOR EXTREME NON-COMPLIANCE. 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 % Review of Systems Constitutional: see HPI Physical Exam Vital Signs Vital Signs - First Documented 04/14/23 04:00 FiO2 50 Capillary Refill : Less Than 3 Seconds Height, Weight, BMI Height: 5'6.00" Weight: 130lbs. 2.0oz. 59.552209gi; 23.29 BMI Method:Stated General Appearance: Cachetic, Moderate Distress, Thin Neck: Full Range of Motion, Normal Inspection, Non Tender, Supple; No Carotid Bruit; Lymphadenopathy (R); No Thyromegaly Respiratory: Decreased Breath Sounds, Respiratory Distress, Rhonci (R>L) Cardiovascular: Regular Rate, Rhythm, No Edema, No JVD, Normal Peripheral Pulses Gastrointestinal: Normal Bowel Sounds Neurologic/Psychiatric: Other (Sedated tremors when aroused ) Skin: Normal Color, Warm/Dry, Ecchymosis Lymphatic: No Adenopathy Assessment/Plan Assessment and Plan A/P Sepsis - Lactic acidosis 4.24 on admit 1.5 04/14 - Zoysn started , cx pending - MRSA nares Neg PLAN >Continue Zoysn >monitor UC Acute hypoxic resp failure - CXR showed possible aspiration R lobe -COVID/ FLU Neg - suspect hypoxemia 2/2 to aspiration PNA in the setting of COPD PLAN > continue ABX >Continue Bipap titrate as needed > Low threshold to intubate ETOH Abuse Encephalopathy - Suspect Wernicke's - CTH 04/13 - stable microvascular ischemia , no acute findings - CIWA-20 overnight -S/P 2g ativan -increased tremors and agitation - Precedex started 04/13 PM PLAN - continue Precedex -continue Thiamine -Q4h vitals Hypokalemia- replace Hyponatremia- mild - monitor COPD CTA chest 04/02/23: - severe emphysema - cont nebs Lines : , (Central Line Necessity Reviewed) Parada: in place OG: Nutrition: NPO Analgesia: Anxiety/ delirium- Precedex VTE Prophylaxis: Lovenox Stress Ulcer Prophylaxis:n/a Problems: (1) ETOH abuse Status: Chronic (2) DVT prophylaxis Status: Acute (3) Severe sepsis Status: Acute Admission Diagnosis Acute on Chronic respiratory distress Admission Status: Inpatient Order (span 2 midnights) Reason for Inpatient Admission: incrreased o2 demands CARYN HUERTA MD 04/14/23 7776: Allergies and Home Medications Allergies Coded Allergies: ibuprofen (Verified Adverse Reaction, Unknown, Hypertension, pt has rec A in the past, 11/05/21) HYPERTENSION tramadol (Verified Adverse Reaction, Unknown, VOMIT, 10/03/18) Patient Home Medication List Home Medication List Reviewed: Yes Past Awdlchf-Bovvyv-Atfxsv Hx Patient Social History Living Status: homeless Family Medical History Cancer 03 FATHER (PROSTATE) 03 MOTHER (BREAST CA ) 09 BROTHER (THROAT/PANCREATIC) 09 SISTER (LIVER) DEAFNESS 03 FATHER 09 BROTHER Family history: Breast disease 03 MOTHER (BREAST CA) History of - respiratory disease Prostate cancer 03 FATHER Stroke 03 MOTHER Visual impairment Review of Systems Constitutional: other (Unable to evaluate due to sedation and illness) Physical Exam General Appearance: Cachetic, Moderate Distress, Thin Neck: Non Tender, Supple Respiratory: Crackles, Decreased Breath Sounds, Respiratory Distress, Rhonci (R>L) Cardiovascular: Regular Rate, Rhythm, No Murmur Gastrointestinal: Normal Bowel Sounds, Non Tender, Soft Extremity: Normal Capillary Refill, Normal Range of Motion, Non Tender, No Calf Tenderness Neurologic/Psychiatric: Other (Sedated tremors when aroused ) Skin: Normal Color, Warm/Dry Lymphatic: No Adenopathy Assessment/Plan Admission Diagnosis Admission Status: Inpatient Order (span 2 midnights) Reason for Inpatient Admission: High risk for decompensation, multiple comorbidities Supervisory-Addendum Brief Verification & Attestation Participated in pt care: history, physical Personally performed: exam, history Care discussed with: Medical Student Procedures: n/a Verification and Attestation of Medical Student E/M Service A medical student performed and documented this service in my presence. I reviewed and verified all information documented by the medical student and made modifications to such information, when appropriate. I personally performed the physical exam and medical decision making. Caryn Huerta, Apr 14, 2023,18:33 Agree with above, in addition Severe Sepsis with septic Shock Acute Respiratory Failure with hypoxia Bilateral PNA Altered Mental Status - Admit to ICU, Patient started on bipap today,Sepsis protocol with IVFs, low UOP, strict I/Os EtOH dependence h/o substance abuse - CIWS, high risk for intubation, Thiamine and folic acid Hyponatremia Hypokalemia - IVFs, replace and repeat BMP DEMETRIUS RECINOS Apr 14, 2023 11:53 CARYN HUERTA MD Apr 14, 2023 18:36
[2023-04-14] MEDS: ACETAMINOPHEN 650 MG SUPPOSITORY PR PRN ×2 (12:37→14:20)
[2023-04-14 13:45] VITALS: BP 105/70
--- NOTE | 2023-04-14 14:13 | Progress Note ---
Standard Progress Note Progress Notes/Assess & Plan Date Seen by a Provider: Apr 14, 2023 Time Seen by a Provider: 14:13 Progress/Assessment & Plan called for temp 101 and then 102, give Tylenol supp but would not stay in. On IV Precedex, having tremors I would try Tylenol again, do blood culutres, give 2 mg IV Ativan MD FAROOQ Zapata,DAIN Berrios MD Apr 14, 2023 14:13
[2023-04-14] MEDS: ENOXAPARIN 40 MG/0.4 ML SYRINGE SC SCH (15:04)
[2023-04-14 18:40] VITALS: BP 88/48
[2023-04-14 20:25] VITALS: BP 100/68
[2023-04-14 22:10] VITALS: BP 98/70
[2023-04-15] VITALS (8 sets, daily range): BP systolic 81–145; BP diastolic 56–101
[2023-04-15] MEDS: DexMEDEtomidine 1,000mcg/250ml 250 ML IV SCH ×2 (00:33→19:43)
[2023-04-15] MEDS: LACTATED RINGERS 1,000 ML 1,000 ML IV SCH ×3 (00:34→14:07)
[2023-04-15] MEDS ORDERED: LACTATED RINGERS 1,000 ML 1,000 ML IV ONE (00:45)
[2023-04-15] MEDS ORDERED: LACTATED RINGERS 1,000 ML 1,000 ML IV SCH ×2 (01:00→22:45)
[2023-04-15 01:31] LABS: ABG BASE EXCESS -5.9 MMOL/L (-2.5-2.5); ABG OXYGEN SATURATION 96 % (94-100); ABG PCO2 37 MMHG (35-45); ABG PO2 78 MMHG (79-93); ABG TCO2 19.9 MMOL/L (21.0-31.0)
[2023-04-15 01:32] LABS: ABG PH 7.33 (7.37-7.43); ALLENS TEST YES-POS; INSPIRED O2 60%
[2023-04-15 01:33] LABS: PATIENT TEMP 37.9; VENTILATOR NO
[2023-04-15] MEDS: RT-Ipratropium/Albuterol NEB 3 ML VIAL INH SCH ×6 (01:38→21:46)
[2023-04-15] MEDS: PIPERACILLIN/Tazobactam 4.5 GM in NS (IVPB) 100 ML 100 ML IV SCH ×3 (01:53→18:35)
[2023-04-15 04:14] LABS: BASOPHILS # (AUTO) 0.1 10^3/uL (0.0-0.1); BASOPHILS % (AUTO) 1 % (0-10); EOSINOPHILS # (AUTO) 0.1 10^3/uL (0.0-0.3); EOSINOPHILS % (AUTO) 0 % (0-10); HEMATOCRIT 42 % (40-54); HEMOGLOBIN 13.8 g/dL (13.3-17.7); LYMPHOCYTES # (AUTO) 0.6 10^3/uL (1.0-4.0); LYMPHOCYTES % (AUTO) 4 % (12-44); MEAN CORPUSCULAR HEMOGLOBIN 34 pg (25-34); MEAN CORPUSCULAR HGB CONC 33 g/dL (32-36); MEAN CORPUSCULAR VOLUME 103 fL (80-99); MEAN PLATELET VOLUME 10.6 fL (9.0-12.2); MONOCYTES # (AUTO) 0.5 10^3/uL (0.0-1.0); MONOCYTES % (AUTO) 4 % (0-12); NEUTROPHILS # (AUTO) 13.8 10^3/uL (1.8-7.8); NEUTROPHILS % (AUTO) 91 % (42-75); PLATELET COUNT 141 10^3/uL (130-400); WHITE BLOOD COUNT 15.2 10^3/uL (4.3-11.0)
[2023-04-15 04:23] LABS: ALBUMIN 2.4 GM/DL (3.2-4.5)
[2023-04-15 04:24] LABS: CALCIUM 8.5 MG/DL (8.5-10.1)
[2023-04-15 04:26] LABS: TOTAL PROTEIN 5.3 GM/DL (6.4-8.2)
[2023-04-15 04:28] LABS: BILIRUBIN,TOTAL 0.4 MG/DL (0.1-1.0)
[2023-04-15 04:29] LABS: CREATININE SERUM 0.83 MG/DL (0.60-1.30); PHOSPHORUS 2.8 MG/DL (2.3-4.7)
[2023-04-15 04:32] LABS: MAGNESIUM 2.1 MG/DL (1.6-2.4)
[2023-04-15] MEDS: MAGNESIUM 1 GM/100 ML IVPB 100 ML IV SCH (05:06)
[2023-04-15] MEDS: POTASSIUM CL 10MEQ/50ML IVPB 50 ML IV SCH (05:06)
[2023-04-15] MEDS: POTASSIUM CHLORIDE 20 MEQ TABLET PO SCH (05:06)
--- NOTE | 2023-04-15 06:19 | Diagnostic Imaging Report ---
INDICATION: Difficulty breathing. Comparison is made with prior examination of 04/14/2023. FINDINGS: The heart size is stable. There are persistent bibasilar infiltrates and small bilateral pleural effusions. There is no pneumothorax previous sounds. The mediastinum is unremarkable. There are postsurgical changes in cervical spine. IMPRESSION: Persistent bibasilar infiltrates and bilateral pleural effusions. May be some minimal venous congestion. Dictated by: Dictated on workstation # [id number]
[2023-04-15] MEDS: THIAMINE 100 MG (VITAMIN B-1) TAB PO SCH (07:02)
--- NOTE | 2023-04-15 08:06 | Tele-ICU Progress Note ---
Subjective Date Seen by a Provider: Apr 15, 2023 Time Seen by a Provider: 08:01 Subjective/Events-last exam (Tele-ICU Physician , Progress Note ) Service provided via interactive audio and video telecommunications E-CARE system to a patient admitted to ICU bed in [facility]. Patient is seen today due to persistent need of ICU care Available chart/ vitals / labs / Images reviewed Video assessment done using teleICU camera, rest of exam as per RN Discussed with RN Now on BiPAP 03/04, FIO2 70%, spont RR 30, pt not very responsive, does withdraw to pain, last IV Ativan was at 5am On PRN IV Ativan for EtOH withdrawal on IV Precedex @ 0.4, Can protect airway, does have gag, has tremor, moves all 4 extremities No further Sz, Potassium and magnesium levels ok Has significant bilateral infiltrates on CXR R > L also bilateral pleural effusion, on IV Zosyn Sepsis Event Evaluation Height, Weight, BMI Height: 5'6.00" Weight: 130lbs. 2.0oz. 59.171942ot; 23.11 BMI Method:Stated Focused Exam Lactate Level 04/14/23 16:36: Lactic Acid Level 1.58 04/15/23 04:05: Lactic Acid Level 3.40*H 04/15/23 06:04: Lactic Acid Level 3.71*H Lactic Acid Level Laboratory Tests Test 04/15/23 04:05 04/15/23 06:04 Lactic Acid Level 3.40 MMOL/L (0.50-2.00) *H 3.71 MMOL/L (0.50-2.00) *H Exam Exam Patient acknowledged, consented, and participated in this virtual visit which was conducted using real time audio/video Vital Signs Date Time Temp Pulse Resp B/P (MAP) Pulse Ox O2 Delivery O2 Flow Rate FiO2 04/15/23 07:46 90 04/15/23 06:45 89 31 91/64 (73) 95 NIV Bilevel 70.00 04/15/23 06:44 89 31 95 70.00 04/15/23 06:30 89 30 98/64 (75) 95 NIV Bilevel 70.00 04/15/23 06:15 91 31 96/63 (77) 95 NIV Bilevel 70.00 04/15/23 06:00 90 94/71 (79) 89 NIV Bilevel 70.00 04/15/23 05:45 92 35 101/63 (76) 95 NIV Bilevel 70.00 04/15/23 05:30 93 36 137/66 (89) 94 NIV Bilevel 70.00 04/15/23 05:15 93 36 114/90 (98) 93 NIV Bilevel 70.00 04/15/23 05:00 92 35 88/48 (61) 94 NIV Bilevel 70.00 04/15/23 04:59 92 77/58 04/15/23 04:45 91 36 77/58 (64) 94 NIV Bilevel 70.00 04/15/23 04:30 92 36 79/58 (65) 94 NIV Bilevel 70.00 04/15/23 04:15 95 32 93/61 (72) 93 NIV Bilevel 70.00 04/15/23 04:01 37.9 04/15/23 04:00 90 37 97/57 (70) NIV Bilevel 70.00 04/15/23 04:00 90 NIV Bilevel 70 04/15/23 03:45 90 32 98/66 (77) 91 NIV Bilevel 70.00 04/15/23 03:30 89 31 87/65 (72) NIV Bilevel 70.00 04/15/23 03:15 89 31 93/64 (74) 93 NIV Bilevel 70.00 04/15/23 03:00 89 31 95/63 (72) 96 NIV Bilevel 70.00 04/15/23 02:45 90 31 88/62 (73) 95 NIV Bilevel 70.00 04/15/23 02:30 90 31 90/64 (71) 95 NIV Bilevel 70.00 04/15/23 02:15 92 32 90/59 (70) 93 NIV Bilevel 70.00 04/15/23 02:13 39.0 115 94 75 04/15/23 02:00 92 32 83/59 (65) 79 NIV Bilevel 70.00 04/15/23 01:45 78/57 (63) 04/15/23 01:30 85 30 83/60 (67) 95 NIV Bilevel 70.00 04/15/23 01:20 86 31 98 75.00 04/15/23 01:15 87/63 (72) 04/15/23 01:00 91 37 81/56 (64) 93 NIV Bilevel 75.00 04/15/23 01:00 91 04/15/23 00:45 93 35 77/56 (63) 91 NIV Bilevel 75.00 04/15/23 00:34 94 36 74/54 (61) 91 NIV Bilevel 75.00 04/15/23 00:33 92 76/54 04/15/23 00:30 93 35 76/54 (61) 91 NIV Bilevel 60.00 04/15/23 00:15 96 36 78/56 (63) 91 NIV Bilevel 60.00 04/15/23 00:11 115 90 04/15/23 00:00 101 34 82/55 (64) 90 NIV Bilevel 60.00 04/14/23 23:59 90 NIV Bilevel 60 04/14/23 23:45 101 34 97/63 (74) 89 NIV Bilevel 60.00 04/14/23 23:30 98 34 89/62 (71) 90 NIV Bilevel 60.00 04/14/23 23:26 98 36 91 NIV Bilevel 60.00 04/14/23 23:15 98 37 88/66 (73) 90 NIV Bilevel 55.00 04/14/23 23:00 94 33 100/69 (79) NIV Bilevel 55.00 04/14/23 22:45 93 35 100/73 (82) 91 NIV Bilevel 55.00 04/14/23 22:30 92 37 99/61 (74) 94 NIV Bilevel 55.00 04/14/23 22:15 87 29 98/71 (79) 92 NIV Bilevel 55.00 04/14/23 22:10 87 32 93 55.00 04/14/23 22:00 85 33 98/70 (81) 91 NIV Bilevel 55.00 04/14/23 21:45 84 33 93/63 (71) 91 NIV Bilevel 55.00 04/14/23 21:30 83 30 85/64 (73) 93 NIV Bilevel 55.00 04/14/23 21:15 83 31 88/64 (71) 92 NIV Bilevel 55.00 04/14/23 21:00 84 31 89/63 (71) 93 NIV Bilevel 55.00 04/14/23 20:45 85 31 93/65 (72) 93 NIV Bilevel 55.00 04/14/23 20:30 86 32 98/61 (73) 93 NIV Bilevel 55.00 04/14/23 20:25 87 32 93 55.00 04/14/23 20:15 89 34 100/68 (80) 93 NIV Bilevel 55.00 04/14/23 20:05 91 NIV Bilevel 55 04/14/23 20:00 37.1 90 33 99/64 (75) 94 NIV Bilevel 55.00 04/14/23 19:45 92 35 94/63 (72) 94 NIV Bilevel 55.00 04/14/23 19:30 93 36 90/58 (68) NIV Bilevel 55.00 04/14/23 19:15 95 33 85/56 (65) 90 NIV Bilevel 55.00 04/14/23 19:07 95 35 76/51 (60) 91 NIV Bilevel 55.00 04/14/23 19:04 96 33 77/54 (58) 91 NIV Bilevel 55.00 04/14/23 19:00 96 32 106/52 (61) 90 NIV Bilevel 55.00 04/14/23 19:00 98 04/14/23 18:40 114 36 94 55.00 04/14/23 18:00 83 29 122/80 (94) 90 NIV Bilevel 55.00 04/14/23 17:00 81 29 121/75 (90) 94 NIV Bilevel 55.00 04/14/23 16:00 89 32 112/68 (83) 94 NIV Bilevel 55.00 04/14/23 16:00 90 NIV CPAP 50 04/14/23 15:16 39.1 04/14/23 15:00 93 32 112/71 (85) 95 NIV Bilevel 55.00 04/14/23 14:20 39.0 04/14/23 14:00 94 34 105/63 (77) 95 NIV Bilevel 55.00 04/14/23 13:45 81 34 94 55.00 04/14/23 13:38 36.7 04/14/23 13:00 81 34 105/70 (82) 94 NIV Bilevel 55.00 04/14/23 12:37 38.3 04/14/23 12:31 38.3 04/14/23 12:02 84 04/14/23 12:00 90 NIV CPAP 50 04/14/23 12:00 84 36 102/66 (78) 93 NIV Bilevel 55.00 04/14/23 11:04 86 34 92 55.00 04/14/23 11:00 87 37 106/65 (79) 93 NIV Bilevel 55.00 04/14/23 10:00 89 40 108/60 (76) 93 NIV Bilevel 55.00 04/14/23 09:20 NIV Bilevel 55.00 04/14/23 09:00 89 37 83/67 (72) 93 NIV CPAP 50.00 I & O 04/15/23 07:00 Intake Total 9751 ml Output Total 870 ml Balance 8881 ml Height & Weight Height: 5'6.00" Weight: 130lbs. 2.0oz. 59.914237eb; 23.11 BMI Method:Stated General Appearance: Cachetic, Moderate Distress, Thin HEENT: PERRL/EOMI, Other (His membranes dry, pupils small) Neck: Non Tender, Supple Respiratory: Crackles, Decreased Breath Sounds, Respiratory Distress, Rhonci (R>L) Cardiovascular: Regular Rate, Rhythm, No Murmur Capillary Refill: Less Than 3 Seconds Gastrointestinal: normal bowel sounds, non tender, soft Extremity: Normal Capillary Refill, Normal Range of Motion, Non Tender, No Calf Tenderness Neurologic/Psychiatric: Other (Sedated tremors when aroused ) Skin: Normal Color, Warm/Dry, Other (mutlple skin lesions but do not look infected) Lymphatic: No Adenopathy Results Lab Laboratory Tests 04/13/23 10:38 04/13/23 22:00 04/14/23 04:33 04/15/23 04:05 Assessment/Plan Assessment/Plan EtOH withdrawal, on IV Precedex, will watch closely due to lethargy, if SpO2 drops into 80's or can not protect airway would intubate, Keep HOB up sepsis, probably form PNA. skin lesions do not appear infected Sz disorder-no further Sz Long Hx of substance abuse Repeat lactate this am is down at 2.51, was 3.71 at 6 am, will continue to hydrate WBC is still high at 15k Critical Care: Critically Ill Patient Time spent with patient (mins): 30 DAIN TRIVEDI MD Apr 15, 2023 08:06
[2023-04-15] MEDS: THIAMINE INJECTION 100 MG in NS (IVPB) 50 ML 50 ML IV SCH (08:07)
[2023-04-15] MEDS ORDERED: NOREPINEPHRINE 8 MG/250 ML 250 ML IV ONE (10:51)
--- NOTE | 2023-04-15 10:52 | Tele-ICU Progress Note ---
Subjective Date Seen by a Provider: Apr 15, 2023 Time Seen by a Provider: 10:48 Subjective/Events-last exam Pt has been doing worse, SpO2 in high 80's on BiPAP 18/8, FiO2 70%, less awake with poor cough, LA has improved however. At this point I would electively intubate pt. place on AC 18 Vt 450, FiO2 75%, PEEP 5 Be prepared for drop in BP on intubation, will have IV levophed ready to go, Has only peripheral lines but they are secure Once stable will send for non contrast CT head though is moving all 4 extremities Spoke at length with RN Sepsis Event Evaluation Height, Weight, BMI Height: 5'6.00" Weight: 130lbs. 2.0oz. 59.735606tp; 23.11 BMI Method:Stated Focused Exam Lactate Level 04/15/23 04:05: Lactic Acid Level 3.40*H 04/15/23 06:04: Lactic Acid Level 3.71*H 04/15/23 08:50: Lactic Acid Level 2.51*H Lactic Acid Level Laboratory Tests Test 04/15/23 08:50 Lactic Acid Level 2.51 MMOL/L (0.50-2.00) *H Exam Exam Patient acknowledged, consented, and participated in this virtual visit which was conducted using real time audio/video Vital Signs Date Time Temp Pulse Resp B/P (MAP) Pulse Ox O2 Delivery O2 Flow Rate FiO2 04/15/23 10:31 93 38 90 70.00 04/15/23 10:00 93 31 89/59 (69) 91 NIV Bilevel 70.00 04/15/23 09:00 87 31 88/59 (69) 94 NIV Bilevel 70.00 04/15/23 08:00 88 31 89/59 (69) 94 NIV Bilevel 70.00 04/15/23 08:00 94 NIV Bilevel 70 04/15/23 07:46 90 04/15/23 07:00 90 31 86/57 (67) 95 NIV Bilevel 70.00 04/15/23 06:45 89 31 91/64 (73) 95 NIV Bilevel 70.00 04/15/23 06:44 89 31 95 70.00 04/15/23 06:30 89 30 98/64 (75) 95 NIV Bilevel 70.00 04/15/23 06:15 91 31 96/63 (77) 95 NIV Bilevel 70.00 04/15/23 06:00 90 94/71 (79) 89 NIV Bilevel 70.00 04/15/23 05:45 92 35 101/63 (76) 95 NIV Bilevel 70.00 04/15/23 05:30 93 36 137/66 (89) 94 NIV Bilevel 70.00 04/15/23 05:15 93 36 114/90 (98) 93 NIV Bilevel 70.00 04/15/23 05:00 92 35 88/48 (61) 94 NIV Bilevel 70.00 04/15/23 04:59 92 77/58 04/15/23 04:45 91 36 77/58 (64) 94 NIV Bilevel 70.00 04/15/23 04:30 92 36 79/58 (65) 94 NIV Bilevel 70.00 04/15/23 04:15 95 32 93/61 (72) 93 NIV Bilevel 70.00 04/15/23 04:01 37.9 04/15/23 04:00 90 37 97/57 (70) NIV Bilevel 70.00 04/15/23 04:00 90 NIV Bilevel 70 04/15/23 03:45 90 32 98/66 (77) 91 NIV Bilevel 70.00 04/15/23 03:30 89 31 87/65 (72) NIV Bilevel 70.00 04/15/23 03:15 89 31 93/64 (74) 93 NIV Bilevel 70.00 04/15/23 03:00 89 31 95/63 (72) 96 NIV Bilevel 70.00 04/15/23 02:45 90 31 88/62 (73) 95 NIV Bilevel 70.00 04/15/23 02:30 90 31 90/64 (71) 95 NIV Bilevel 70.00 04/15/23 02:15 92 32 90/59 (70) 93 NIV Bilevel 70.00 04/15/23 02:13 39.0 115 94 75 04/15/23 02:00 92 32 83/59 (65) 79 NIV Bilevel 70.00 04/15/23 01:45 78/57 (63) 04/15/23 01:30 85 30 83/60 (67) 95 NIV Bilevel 70.00 04/15/23 01:20 86 31 98 75.00 04/15/23 01:15 87/63 (72) 04/15/23 01:00 91 37 81/56 (64) 93 NIV Bilevel 75.00 04/15/23 01:00 91 04/15/23 00:45 93 35 77/56 (63) 91 NIV Bilevel 75.00 04/15/23 00:34 94 36 74/54 (61) 91 NIV Bilevel 75.00 04/15/23 00:33 92 76/54 04/15/23 00:30 93 35 76/54 (61) 91 NIV Bilevel 60.00 04/15/23 00:15 96 36 78/56 (63) 91 NIV Bilevel 60.00 04/15/23 00:11 115 90 04/15/23 00:00 101 34 82/55 (64) 90 NIV Bilevel 60.00 04/14/23 23:59 90 NIV Bilevel 60 04/14/23 23:45 101 34 97/63 (74) 89 NIV Bilevel 60.00 04/14/23 23:30 98 34 89/62 (71) 90 NIV Bilevel 60.00 04/14/23 23:26 98 36 91 NIV Bilevel 60.00 04/14/23 23:15 98 37 88/66 (73) 90 NIV Bilevel 55.00 04/14/23 23:00 94 33 100/69 (79) NIV Bilevel 55.00 04/14/23 22:45 93 35 100/73 (82) 91 NIV Bilevel 55.00 04/14/23 22:30 92 37 99/61 (74) 94 NIV Bilevel 55.00 04/14/23 22:15 87 29 98/71 (79) 92 NIV Bilevel 55.00 04/14/23 22:10 87 32 93 55.00 04/14/23 22:00 85 33 98/70 (81) 91 NIV Bilevel 55.00 04/14/23 21:45 84 33 93/63 (71) 91 NIV Bilevel 55.00 04/14/23 21:30 83 30 85/64 (73) 93 NIV Bilevel 55.00 04/14/23 21:15 83 31 88/64 (71) 92 NIV Bilevel 55.00 04/14/23 21:00 84 31 89/63 (71) 93 NIV Bilevel 55.00 8/29/23 20:45 85 31 93/65 (72) 93 NIV Bilevel 55.00 04/14/23 20:30 86 32 98/61 (73) 93 NIV Bilevel 55.00 04/14/23 20:25 87 32 93 55.00 04/14/23 20:15 89 34 100/68 (80) 93 NIV Bilevel 55.00 04/14/23 20:05 91 NIV Bilevel 55 04/14/23 20:00 37.1 90 33 99/64 (75) 94 NIV Bilevel 55.00 04/14/23 19:45 92 35 94/63 (72) 94 NIV Bilevel 55.00 04/14/23 19:30 93 36 90/58 (68) NIV Bilevel 55.00 04/14/23 19:15 95 33 85/56 (65) 90 NIV Bilevel 55.00 04/14/23 19:07 95 35 76/51 (60) 91 NIV Bilevel 55.00 04/14/23 19:04 96 33 77/54 (58) 91 NIV Bilevel 55.00 04/14/23 19:00 96 32 106/52 (61) 90 NIV Bilevel 55.00 04/14/23 19:00 98 04/14/23 18:40 114 36 94 55.00 04/14/23 18:00 83 29 122/80 (94) 90 NIV Bilevel 55.00 04/14/23 17:00 81 29 121/75 (90) 94 NIV Bilevel 55.00 04/14/23 16:00 89 32 112/68 (83) 94 NIV Bilevel 55.00 04/14/23 16:00 90 NIV CPAP 50 04/14/23 15:16 39.1 04/14/23 15:00 93 32 112/71 (85) 95 NIV Bilevel 55.00 04/14/23 14:20 39.0 04/14/23 14:00 94 34 105/63 (77) 95 NIV Bilevel 55.00 04/14/23 13:45 81 34 94 55.00 04/14/23 13:38 36.7 04/14/23 13:00 81 34 105/70 (82) 94 NIV Bilevel 55.00 04/14/23 12:37 38.3 04/14/23 12:31 38.3 04/14/23 12:02 84 04/14/23 12:00 90 NIV CPAP 50 04/14/23 12:00 84 36 102/66 (78) 93 NIV Bilevel 55.00 04/14/23 11:04 86 34 92 55.00 04/14/23 11:00 87 37 106/65 (79) 93 NIV Bilevel 55.00 I & O 04/15/23 07:00 Intake Total 9751 ml Output Total 870 ml Balance 8881 ml Height & Weight Height: 5'6.00" Weight: 130lbs. 2.0oz. 59.797586zk; 23.11 BMI Method:Stated General Appearance: Cachetic, Moderate Distress, Thin HEENT: PERRL/EOMI, Other (His membranes dry, pupils small) Neck: Non Tender, Supple Respiratory: Crackles, Decreased Breath Sounds, Respiratory Distress, Rhonci (R>L) Cardiovascular: Regular Rate, Rhythm, No Murmur Capillary Refill: Less Than 3 Seconds Gastrointestinal: normal bowel sounds, non tender, soft Extremity: Normal Capillary Refill, Normal Range of Motion, Non Tender, No Calf Tenderness Neurologic/Psychiatric: Other (Sedated tremors when aroused ) Skin: Normal Color, Warm/Dry, Other (mutlple skin lesions but do not look infected) Lymphatic: No Adenopathy Results Lab Laboratory Tests 04/13/23 22:00 04/14/23 04:33 04/15/23 04:05 Assessment/Plan Assessment/Plan Pt has been doing worse, SpO2 in high 80's on BiPAP 18/8, FiO2 70%, less awake with poor cough, LA has improved however. At this point I would electively intubate pt. place on AC 18 Vt 450, FiO2 75%, PEEP 5 Be prepared for drop in BP on intubation, will have IV levophed ready to go, Has only peripheral lines but they are secure Once stable will send for non contrast CT head though is moving all 4 extremities Spoke at length with supervising fire marshal: Ventilator Management Time spent with patient (mins): 40 DAIN TRIVEDI MD Apr 15, 2023 10:52
--- NOTE | 2023-04-15 11:26 | Anesthesia-Procedure Note ---
Procedures/Interventions Procedure Start/Stop/Diagnosis Date of Procedure: Apr 15, 2023 Start Time: 11:00 Stop Time: 11:30 Intubation RSI: Yes 100% pre-Ox, [id number]: Yes Intubation Method: orotracheal Videoscope used: Yes Medications: Propofol, Succinylcholine Mask Ventilation: positive Positive End Tide CO2: Yes Breath Sounds after Intubation: bilateral-equal ETT Securred @ (cm): 23 Intubated with ease: Yes Intubation Complications: no complications Post Intubation Xray-done: Yes Care turned over to: ROBERTO Leal CRNA Apr 15, 2023 11:26
--- NOTE | 2023-04-15 11:48 | Diagnostic Imaging Report ---
INDICATION: Intubation. Comparison is made with prior examination 04/15/2023 at 1:01 AM. This is done on the same date at 11:03 AM FINDINGS: Endotracheal tube has its tip just below the thoracic inlet. There is cardiomegaly and mild venous congestion. There are patchy bibasilar infiltrates. There is no pneumothorax. Mediastinum is unremarkable. IMPRESSION: Endotracheal tube has its tip between the thoracic inlet and key. Patchy bibasilar pulmonary infiltrates. Cardiomegaly and some central pulmonary venous congestion. Dictated by: Dictated on workstation # [id number]
[2023-04-15] MEDS: NOREPINEPHRINE 8 MG/250 ML 250 ML IV SCH (12:08)
--- NOTE | 2023-04-15 13:04 | Physical Therapy Progress Note ---
Therapy Progress Note Received PT orders however patient just placed on mechanical ventilator. Will continue to monitor and evaluate patient when appropriate. EMILIA FREEMAN PT Apr 15, 2023 13:04
--- NOTE | 2023-04-15 13:59 | Progress Note ---
Subjective Subjective Date Seen by Provider: Apr 15, 2023 Time Seen by Provider: 10:45 CIWA triggered, ativan given per protocol. BP liable MAPs ~60- Epi started 04/15 increased o2 demand- intubated 04/15 lactic acidosis improving. Objective Exam Vital Signs Vital Signs Date Time Temp Pulse Resp B/P (MAP) Pulse Ox O2 Delivery O2 Flow Rate FiO2 04/15/23 13:37 37.7 04/15/23 13:28 123 116/79 04/15/23 13:28 125 04/15/23 12:08 98 101/71 04/15/23 12:00 105 28 152/93 (112) 91 Mechanical Ventilator 100.00 04/15/23 12:00 91 Mechanical Ventilator 100 04/15/23 11:54 101 77/55 04/15/23 11:15 114 20 96 100 04/15/23 11:11 85 15 80/50 (60) 91 Mechanical Ventilator 100.00 04/15/23 10:31 93 38 90 70.00 04/15/23 10:00 93 31 89/59 (69) 91 NIV Bilevel 70.00 04/15/23 09:00 87 31 88/59 (69) 94 NIV Bilevel 70.00 04/15/23 08:00 88 31 89/59 (69) 94 NIV Bilevel 70.00 04/15/23 08:00 94 NIV Bilevel 70 04/15/23 07:46 90 04/15/23 07:00 90 31 86/57 (67) 95 NIV Bilevel 70.00 04/15/23 06:45 89 31 91/64 (73) 95 NIV Bilevel 70.00 04/15/23 06:44 89 31 95 70.00 04/15/23 06:30 89 30 98/64 (75) 95 NIV Bilevel 70.00 04/15/23 06:15 91 31 96/63 (77) 95 NIV Bilevel 70.00 04/15/23 06:00 90 94/71 (79) 89 NIV Bilevel 70.00 04/15/23 05:45 92 35 101/63 (76) 95 NIV Bilevel 70.00 04/15/23 05:30 93 36 137/66 (89) 94 NIV Bilevel 70.00 04/15/23 05:15 93 36 114/90 (98) 93 NIV Bilevel 70.00 04/15/23 05:00 92 35 88/48 (61) 94 NIV Bilevel 70.00 04/15/23 04:59 92 77/58 04/15/23 04:45 91 36 77/58 (64) 94 NIV Bilevel 70.00 04/15/23 04:30 92 36 79/58 (65) 94 NIV Bilevel 70.00 04/15/23 04:15 95 32 93/61 (72) 93 NIV Bilevel 70.00 04/15/23 04:01 37.9 04/15/23 04:00 90 37 97/57 (70) NIV Bilevel 70.00 04/15/23 04:00 90 NIV Bilevel 70 04/15/23 03:45 90 32 98/66 (77) 91 NIV Bilevel 70.00 04/15/23 03:30 89 31 87/65 (72) NIV Bilevel 70.00 04/15/23 03:15 89 31 93/64 (74) 93 NIV Bilevel 70.00 04/15/23 03:00 89 31 95/63 (72) 96 NIV Bilevel 70.00 04/15/23 02:45 90 31 88/62 (73) 95 NIV Bilevel 70.00 04/15/23 02:30 90 31 90/64 (71) 95 NIV Bilevel 70.00 04/15/23 02:15 92 32 90/59 (70) 93 NIV Bilevel 70.00 04/15/23 02:13 39.0 115 94 75 04/15/23 02:00 92 32 83/59 (65) 79 NIV Bilevel 70.00 04/15/23 01:45 78/57 (63) 04/15/23 01:30 85 30 83/60 (67) 95 NIV Bilevel 70.00 04/15/23 01:20 86 31 98 75.00 04/15/23 01:15 87/63 (72) 04/15/23 01:00 91 37 81/56 (64) 93 NIV Bilevel 75.00 04/15/23 01:00 91 04/15/23 00:45 93 35 77/56 (63) 91 NIV Bilevel 75.00 04/15/23 00:34 94 36 74/54 (61) 91 NIV Bilevel 75.00 04/15/23 00:33 92 76/54 04/15/23 00:30 93 35 76/54 (61) 91 NIV Bilevel 60.00 04/15/23 00:15 96 36 78/56 (63) 91 NIV Bilevel 60.00 04/15/23 00:11 115 90 04/15/23 00:00 101 34 82/55 (64) 90 NIV Bilevel 60.00 04/14/23 23:59 90 NIV Bilevel 60 04/14/23 23:45 101 34 97/63 (74) 89 NIV Bilevel 60.00 04/14/23 23:30 98 34 89/62 (71) 90 NIV Bilevel 60.00 04/14/23 23:26 98 36 91 NIV Bilevel 60.00 04/14/23 23:15 98 37 88/66 (73) 90 NIV Bilevel 55.00 04/14/23 23:00 94 33 100/69 (79) NIV Bilevel 55.00 04/14/23 22:45 93 35 100/73 (82) 91 NIV Bilevel 55.00 04/14/23 22:30 92 37 99/61 (74) 94 NIV Bilevel 55.00 04/14/23 22:15 87 29 98/71 (79) 92 NIV Bilevel 55.00 04/14/23 22:10 87 32 93 55.00 04/14/23 22:00 85 33 98/70 (81) 91 NIV Bilevel 55.00 04/14/23 21:45 84 33 93/63 (71) 91 NIV Bilevel 55.00 04/14/23 21:30 83 30 85/64 (73) 93 NIV Bilevel 55.00 04/14/23 21:15 83 31 88/64 (71) 92 NIV Bilevel 55.00 04/14/23 21:00 84 31 89/63 (71) 93 NIV Bilevel 55.00 04/14/23 20:45 85 31 93/65 (72) 93 NIV Bilevel 55.00 04/14/23 20:30 86 32 98/61 (73) 93 NIV Bilevel 55.00 04/14/23 20:25 87 32 93 55.00 04/14/23 20:15 89 34 100/68 (80) 93 NIV Bilevel 55.00 04/14/23 20:05 91 NIV Bilevel 55 04/14/23 20:00 37.1 90 33 99/64 (75) 94 NIV Bilevel 55.00 04/14/23 19:45 92 35 94/63 (72) 94 NIV Bilevel 55.00 04/14/23 19:30 93 36 90/58 (68) NIV Bilevel 55.00 04/14/23 19:15 95 33 85/56 (65) 90 NIV Bilevel 55.00 04/14/23 19:07 95 35 76/51 (60) 91 NIV Bilevel 55.00 04/14/23 19:04 96 33 77/54 (58) 91 NIV Bilevel 55.00 04/14/23 19:00 96 32 106/52 (61) 90 NIV Bilevel 55.00 04/14/23 19:00 98 04/14/23 18:40 114 36 94 55.00 04/14/23 18:00 83 29 122/80 (94) 90 NIV Bilevel 55.00 04/14/23 17:00 81 29 121/75 (90) 94 NIV Bilevel 55.00 04/14/23 16:00 89 32 112/68 (83) 94 NIV Bilevel 55.00 04/14/23 16:00 90 NIV CPAP 50 04/14/23 15:16 39.1 04/14/23 15:00 93 32 112/71 (85) 95 NIV Bilevel 55.00 04/14/23 14:20 39.0 04/14/23 14:00 94 34 105/63 (77) 95 NIV Bilevel 55.00 I & O 04/15/23 07:00 Intake Total 9751 ml Output Total 870 ml Balance 8881 ml General Appearance: Cachetic, Severe Distress, Thin Eyes: Bilateral Eye PERRL HEENT: Other (His membranes dry, pupils small) Respiratory: Crackles, Decreased Breath Sounds, Respiratory Distress, Rhonci (R>L) Cardiovascular: Regular Rate, Rhythm, No Murmur Gastrointestinal: Normal Bowel Sounds, Soft, Distended Extremity: Normal Capillary Refill, Normal Range of Motion, Non Tender, No Calf Tenderness, No Pedal Edema Neurologic/Psychiatric: Other (Sedated- tremors when aroused ) Skin: Normal Color, Warm/Dry, Other (mutlple skin lesions that do not look infected) Lymphatic: No Adenopathy Results Lab Laboratory Tests 04/14/23 14:36: Lactic Acid Level 3.54*H 04/14/23 16:36: Lactic Acid Level 1.58 04/15/23 01:20: Blood Gas Puncture Site RIGHT RADIAL, Blood Gas Patient Temperature 37.9, Arterial Blood pH 7.33*L, Arterial Blood Partial Pressure CO2 37, Arterial Blood Partial Pressure O2 78L, Arterial Blood HCO3 19L, Arterial Blood Total CO2 19.9L , Arterial Blood Oxygen Saturation 96, Arterial Blood Base Excess -5.9L, Junaid Test YES-POS, Blood Gas Ventilator Setting NO, Blood Gas Inspired Oxygen 60% 04/15/23 04:05: Lactic Acid Level 3.40*H, White Blood Count 15.2H, Red Blood Count 4.08L, Hemoglobin 13.8, Hematocrit 42, Mean Corpuscular Volume 103H, Mean Corpuscular Hemoglobin 34, Mean Corpuscular Hemoglobin Concent 33, Red Cell Distribution Width 14.6H, Platelet Count 141, Mean Platelet Volume 10.6, Immature Granulocyte % (Auto) 1, Neutrophils (%) (Auto) 91H, Lymphocytes (%) (Auto) 4L, Monocytes (%) (Auto) 4, Eosinophils (%) (Auto) 0, Basophils (%) (Auto) 1, Neutrophils # (Auto) 13.8H, Lymphocytes # (Auto) 0.6L, Monocytes # (Auto) 0.5, Eosinophils # (Auto) 0.1, Basophils # (Auto) 0.1, Immature Granulocyte # (Auto) 0.1, Sodium Level 137, Potassium Level 4.0, Chloride Level 106, Carbon Dioxide Level 19L, Anion Gap 12, Blood Urea Nitrogen 20H, Creatinine 0.83, Estimat Glomerular Filtration Rate 95, BUN/Creatinine Ratio 24, Glucose Level 125H, Calcium Level 8.5, Corrected Calcium 9.8, Phosphorus Level 2.8, Magnesium Level 2.1, Total Bilirubin 0.4, Aspartate Amino Transf (AST/SGOT) 35H, Alanine Aminotransferase (ALT/SGPT) 20, Alkaline Phosphatase 44, Total Creatine Kinase 287H, Total Protei n 5.3L, Albumin 2.4L, Triglycerides Level 98 04/15/23 06:04: Lactic Acid Level 3.71*H 04/15/23 08:50: Lactic Acid Level 2.51*H 04/15/23 12:32: Lactic Acid Level 2.02*H 04/15/23 12:37: Glucometer 148H Microbiology 04/13/23 MRSA Screen - Final, Complete MRSA not isolated 04/13/23 Blood Culture - Preliminary, Resulted No growth 04/13/23 Urine Culture - Final, Complete Mixed Bacterial Sahil See Comments Assessment/Plan Assessment/Plan Admission Dx Acute on Chronic respiratory distress Admission Status: Inpatient Order (span 2 midnights) Assessment and Plan Anjel Tidwell is a 68 y/o male who was found down outside by EMS 04/13 was hyperthermic @104 degrees, confused. Has a medical history of EToH abuse, panceratitis and was recently hospitalized for a syncopal episode. Sepsis - Lactic acidosis 4.24 on admit, improving 2.02 04/15 - Zoysn started - MRSA nares Neg - NGTD on BC - UC- normal sahil - BP liable. PLAN >Continue Zoysn Acute hypoxic resp failure - CXR showed possible aspiration R lobe -COVID/ FLU Neg - suspect hypoxemia 2/2 to aspiration PNA - Increased O2 demands 04/15 PLAN > continue ABX > Intubate ETOH Abuse Encephalopathy - Suspect Wernicke's - CTH 04/13 - stable microvascular ischemia , no acute findings - CIWA-20 overnight -S/P 2g ativan -increased tremors and agitation - Precedex started 04/13 PM- D/cd on intubation. Propofol for sedation. PLAN > Continue CIWS > PRN ativan -continue Thiamine -Q4h vitals Hypokalemia- replace Hyponatremia- mild - monitor COPD CTA chest 04/02/23: - severe emphysema - cont nebs Lines : , (Central Line Necessity Reviewed) Parada: in place OG: Nutrition: NPO Analgesia: Anxiety/ delirium- PRN ativan VTE Prophylaxis: Lovenox Stress Ulcer Prophylaxis:n/a Stanley Silverman MS4 Problems: (1) ETOH abuse (2) DVT prophylaxis (3) Severe sepsis Admission Dx Acute on Chronic respiratory distress Clinical Quality Measures Admission Status Admission Dx Acute on Chronic respiratory distress Supervisory-Addendum Brief Verification & Attestation Participated in pt care: history, physical Personally performed: exam, history Care discussed with: Medical Student Procedures: n/a Verification and Attestation of Medical Student E/M Service A medical student performed and documented this service in my presence. I reviewed and verified all information documented by the medical student and made modifications to such information, when appropriate. I personally performed the physical exam and medical decision making. Caryn Huerta, Apr 15, 2023,17:37 Agree with above, in addition Severe Sepsis with septic Shock Acute Respiratory Failure with hypoxia Bilateral PNA Altered Mental Status Metabolic Encephalopathy Lactic Acidosis - Admit to ICU, Patient started on bipap today,Sepsis protocol with IVFs, low UOP, strict I/Os 04/15: Minimal improvement, continues to be acidotic, eICU recommends intubation EtOH dependence h/o substance abuse - CIWS, high risk for intubation, Thiamine and folic acid Hyponatremia Hypokalemia - IVFs, replace and repeat BMP COPD STANLEY SILVERMAN Apr 15, 2023 13:59 CARYN HUERTA MD Apr 15, 2023 17:39
--- NOTE | 2023-04-15 14:02 | Occ Therapy Progress Note ---
Therapy Progress Note OT order received, patient just placed on mechanical ventilator. Will continue to monitor and evaluate patient when appropriate. FRANDY AQUINO OT Apr 15, 2023 14:02
[2023-04-15] MEDS: ENOXAPARIN 40 MG/0.4 ML SYRINGE SC SCH (14:07)
[2023-04-15] MEDS ORDERED: SUCCINYLCHOLINE INJ 20 MG/1 ML 10 ML VIAL INJ ONE (14:14)
[2023-04-15] MEDS ORDERED: proPOfol INJECTION 200 MG/20 ML VIAL IV ONE (14:14)
--- NOTE | 2023-04-15 15:31 | Diagnostic Imaging Report ---
PROCEDURE: CT head without contrast. TECHNIQUE: Multiple contiguous axial images were obtained through the brain without the use of intravenous contrast. Auto Exposure Controls were utilized during the CT exam to meet ALARA standards for radiation dose reduction. INDICATION: Seizure COMPARISON: CT of the head on 04/05/2023. FINDINGS: Scattered hypoattenuation within the periventricular and subcortical white matter. Generalized prominence of ventricles and cortical sulci. The aguilar-white matter differentiation is preserved. The ventricles and cortical sulci mildly prominent. The subarachnoid cisterns are maintained. The sella is normal. No intracranial mass or fluid collection. No midline shift or mass effect. The paranasal sinuses and mastoids are clear. The globes and orbits are normal. IMPRESSION: No acute intracranial hemorrhage. No large vascular territory west-white loss. No intracranial mass, midline shift, or hydrocephalus. Moderate chronic small vessel ischemic disease. Mild global volume loss. Dictated by: Dictated on workstation # [id number]
[2023-04-15] MEDS: ACETAMINOPHEN 650 MG SUPPOSITORY PR PRN (20:28)
[2023-04-15] MEDS ORDERED: PHENYLEPHRINE DRIP 250 ML IV ONE (21:09)
[2023-04-15] MEDS: PHENYLEPHRINE DRIP 250 ML IV SCH (21:20)
[2023-04-15] MEDS ORDERED: KETOROLAC INJ 15 MG/ML VIAL IVP ONE (22:45)
[2023-04-15] MEDS: FAMOTIDINE INJ 20MG/2ML VIAL IVP SCH (22:49)
[2023-04-15 23:31] LABS: ABG BASE EXCESS -7.4 MMOL/L (-2.5-2.5); ABG OXYGEN SATURATION 99 % (94-100); ABG PCO2 30 MMHG (35-45); ABG PH 7.37 (7.37-7.43); ABG PO2 109 MMHG (79-93); ABG TCO2 17.7 MMOL/L (21.0-31.0)
[2023-04-15 23:32] LABS: INSPIRED O2 100%; VENTILATOR YES
[2023-04-15 23:33] LABS: PATIENT TEMP 39.5
[2023-04-16] MEDS: LACTATED RINGERS 1,000 ML 1,000 ML IV SCH ×4 (00:17→21:14)
[2023-04-16] MEDS: PIPERACILLIN/Tazobactam 4.5 GM in NS (IVPB) 100 ML 100 ML IV SCH ×3 (01:56→17:13)
[2023-04-16] MEDS: RT-Ipratropium/Albuterol NEB 3 ML VIAL INH SCH ×5 (02:16→18:17)
[2023-04-16 02:17] VITALS: BP 127/84
[2023-04-16 06:19] LABS: BASOPHILS # (AUTO) 0.1 10^3/uL (0.0-0.1); BASOPHILS % (AUTO) 1 % (0-10); EOSINOPHILS % (AUTO) 0 % (0-10); HEMATOCRIT 46 % (40-54); LYMPHOCYTES # (AUTO) 0.8 10^3/uL (1.0-4.0); LYMPHOCYTES % (AUTO) 4 % (12-44); MEAN CORPUSCULAR HEMOGLOBIN 34 pg (25-34); MEAN CORPUSCULAR HGB CONC 33 g/dL (32-36); MEAN CORPUSCULAR VOLUME 103 fL (80-99); MEAN PLATELET VOLUME 11.3 fL (9.0-12.2); MONOCYTES # (AUTO) 0.7 10^3/uL (0.0-1.0); MONOCYTES % (AUTO) 4 % (0-12); NEUTROPHILS % (AUTO) 90 % (42-75); PLATELET COUNT 130 10^3/uL (130-400); WHITE BLOOD COUNT 17.8 10^3/uL (4.3-11.0)
[2023-04-16] MEDS: THIAMINE 100 MG (VITAMIN B-1) TAB PO SCH (06:26)
[2023-04-16 06:39] LABS: ALBUMIN 2.1 GM/DL (3.2-4.5); BILIRUBIN,TOTAL 0.4 MG/DL (0.1-1.0); CALCIUM 8.1 MG/DL (8.5-10.1); CREATININE SERUM 0.81 MG/DL (0.60-1.30); MAGNESIUM 2.1 MG/DL (1.6-2.4); PHOSPHORUS 3.2 MG/DL (2.3-4.7); POTASSIUM 3.6 MMOL/L (3.6-5.0); TOTAL PROTEIN 5.2 GM/DL (6.4-8.2)
[2023-04-16 06:40] VITALS: BP 107/75
[2023-04-16] MEDS: MAGNESIUM 1 GM/100 ML IVPB 100 ML IV SCH (06:51)
[2023-04-16] MEDS: POTASSIUM CHLORIDE 20 MEQ TABLET PO SCH (06:51)
--- NOTE | 2023-04-16 07:12 | Physical Therapy Progress Note ---
Therapy Progress Note Patient currently sedated and intubated. PT will require new orders when patient is deemed medically stable and able to actively participate with skilled therapy. MAG ZULETA PT Apr 16, 2023 07:12
[2023-04-16] MEDS: ACETAMINOPHEN 650 MG SUPPOSITORY PR PRN ×3 (07:35→19:58)
[2023-04-16] MEDS: DexMEDEtomidine 1,000mcg/250ml 250 ML IV SCH (08:55)
[2023-04-16] MEDS: FAMOTIDINE INJ 20MG/2ML VIAL IVP SCH (08:55)
[2023-04-16] MEDS: THIAMINE INJECTION 100 MG in NS (IVPB) 50 ML 50 ML IV SCH (09:04)
[2023-04-16] MEDS: NOREPINEPHRINE 8 MG/250 ML 250 ML IV SCH (09:07)
--- NOTE | 2023-04-16 09:27 | Diagnostic Imaging Report ---
Indication: Respiratory distress, intubation Frontal chest obtained at 0506 a.m. compared with 04/15/2023. ET tube is unchanged. There is cardiomegaly. There is no change in bibasilar infiltrates and bilateral pleural effusions. There is no pneumothorax. IMPRESSION: Cardiomegaly. No change in bibasilar infiltrates and bilateral pleural effusions. Stable ET tube. Dictated by: Dictated on workstation # [id number]
[2023-04-16 10:16] VITALS: BP 126/88
[2023-04-16 10:21] LABS: ALLENS TEST YES-POS; INSPIRED O2 95%; PATIENT TEMP 36.5; VENTILATOR NO
[2023-04-16 10:26] LABS: ABG BASE EXCESS -4.3 MMOL/L (-2.5-2.5); ABG OXYGEN SATURATION 95 % (94-100); ABG PCO2 38 MMHG (35-45); ABG PO2 75 MMHG (79-93); ABG TCO2 21.7 MMOL/L (21.0-31.0)
[2023-04-16 10:27] LABS: ABG PH 7.35 (7.37-7.43)
--- NOTE | 2023-04-16 11:29 | Tele-ICU Progress Note ---
Subjective Date Seen by a Provider: Apr 16, 2023 Time Seen by a Provider: 11:29 Subjective/Events-last exam (Tele-ICU Physician , Progress Note ) Service provided via interactive audio and video telecommunications E-CARE system to a patient admitted to ICU bed in [facility]. Patient is seen today due to persistent need of ICU care Available chart/ vitals / labs / Images reviewed Video assessment done using teleICU camera, rest of exam as per RN Discussed with RN Events overnight : Afebrile hemodynamically stable Respiratory - 90% +10 I/O = _+ Drips: LT 100 Pressors- herson VENT SETTINGS and ABG reviewed, discussed with RT NOT CANDIDATE for SBTreviewed possible contraindications including Cardiovascular Stability /Sedation Score / FI02/PEEP / ABG / CXR/ secretions Sedation-discussed with RN -RASS - 2 on propofol 30 , Precedex 1.1 Hospital course: (04/13) 68M homeless with long history of extensive substance abuse/ETOH and non compliance been evicted from multiple rehabs, admitted for septic shock PNA 04/15- -Intubated 04/15 for WOB and hypoxia , AC 18 Vt 450, FiO2 75%, PEEP 5 04/16- overning worsenign FIo2 95% peep 10 , HERSON 50 A/P Shock - on herson gtt - to wean off - received > 30 cc/kf bolises - ABX started , cx pending Acute hypoxic resp failure -Intubated 04/15 for WOB and hypoxia , AC 18 Vt 450, FiO2 75%, PEEP 5, overning worsenign FIo2 95% peep 10 - propofol 30 , Precedex 1.1 - will d/c precedex , cont on propofol PNA RIGHT ( NEG covid and flu ) - ? aspiration - zosyn started Encephalopathy - presumed TME - CTH 04/13 - stable microvascular ischemia , no acute findings, -CHT 04/15 - no acute changes ( was unresponsive ) - sedated - propofol 30 , Precedex 1.1 abd tenderness - check amylase and KUB Lactatemia - with hypoxia and sepsis - folow with tratment COPD CTA chest 04/02/23: - severe emphysema ( NO pe ) - cont nebs H/p pancretitis ( ETOH ) ETOH abuse - vitamins - monitor , CIWA Nutritions - start TF if KUB OK H/o abn EKG , bradycardia , HTN - noncompliant with tests / w-up /Tx / recom Lines : PICC 04/[address] , (Central Line Necessity Reviewed) Parada: + O/31 Nutrition: Analgesia: Anxiety/ delirium VTE Prophylaxis: helen 40 Stress Ulcer Prophylaxis: pepcid Plans in collaboration with bedside consultants and IM MDs. Discussed with RN to reach out if any questions or concerns A total of _ minutes of critical care time was devoted to this patient today, required to treat and/or prevent further deterioration of critical care condition ( as above ) . I am remotely monitoring this patient from another state. I am unable to do the bedside exam, and history/physical and pertinent information is taken from other notes in the computer and bedside staff. . Sepsis Event Evaluation Height, Weight, BMI Height: 5'6.00" Weight: 130lbs. 2.0oz. [id number]; 25.63 BMI Method:Stated Focused Exam Lactate Level 04/16/23 00:26: Lactic Acid Level 3.61*H 04/16/23 04:54: Lactic Acid Level 3.90*H 04/16/23 07:15: Lactic Acid Level 3.34*H Exam Exam Patient acknowledged, consented, and participated in this virtual visit which was conducted using real time audio/video Vital Signs Date Time Temp Pulse Resp B/P (MAP) Pulse Ox O2 Delivery O2 Flow Rate FiO2 04/16/23 10:41 Mechanical Ventilator 85.00 04/16/23 10:38 93 85 04/16/23 10:16 106 20 95 95 04/16/23 10:00 107 16 119/83 (95) 94 Mechanical Ventilator 95.00 04/16/23 09:07 37.5 04/16/23 09:00 108 19 119/82 (94) 93 Mechanical Ventilator 95.00 04/16/23 08:00 107 17 136/94 (108) 94 Mechanical Ventilator 95.00 04/16/23 07:35 37.2 04/16/23 07:00 103 04/16/23 07:00 103 19 121/80 (94) 92 Mechanical Ventilator 95.00 04/16/23 06:40 102 19 91 95 04/16/23 06:00 103 16 113/79 (90) 91 Mechanical Ventilator 95.00 04/16/23 05:00 105 17 121/83 (96) 92 Mechanical Ventilator 95.00 04/16/23 04:30 103 107/78 04/16/23 04:12 92 Mechanical Ventilator 95 04/16/23 04:10 103 17 127/84 (99) 92 Mechanical Ventilator 95.00 04/16/23 04:00 36.6 103 21 124/83 (98) 92 Mechanical Ventilator 95.00 04/16/23 03:50 104 15 124/83 (96) 91 Mechanical Ventilator 95.00 04/16/23 03:45 105 18 91 Mechanical Ventilator 95.00 04/16/23 03:40 106 16 124/84 (97) 91 Mechanical Ventilator 95.00 04/16/23 03:30 105 19 124/81 (97) 91 Mechanical Ventilator 95.00 04/16/23 03:20 105 17 124/82 (96) 91 Mechanical Ventilator 95.00 04/16/23 03:15 105 18 91 Mechanical Ventilator 95.00 04/16/23 03:00 105 19 126/82 (97) 91 Mechanical Ventilator 95.00 04/16/23 02:17 108 20 90 95 04/16/23 01:10 111 18 129/85 (96) 93 Mechanical Ventilator 100.00 04/16/23 01:00 36.8 20 124/83 (96) 93 Mechanical Ventilator 100.00 04/16/23 01:00 112 04/16/23 00:50 127/80 (93) 04/16/23 00:45 115 21 94 Mechanical Ventilator 100.00 04/16/23 00:40 128/81 (95) 04/16/23 00:30 120 20 127/84 (97) 94 Mechanical Ventilator 100.00 04/16/23 00:20 123 22 125/80 (94) 94 Mechanical Ventilator 100.00 04/16/23 00:18 123 116/79 04/16/23 00:18 123 116/79 04/16/23 00:15 124 24 94 Mechanical Ventilator 100.00 04/16/23 00:10 38.2 124 18 116/79 (103) 92 Mechanical Ventilator 100.00 04/16/23 00:00 125 25 115/77 (89) 91 Mechanical Ventilator 100.00 04/15/23 23:59 90 Mechanical Ventilator 100 04/15/23 23:55 38.5 04/15/23 23:50 129 27 118/79 (88) 91 Mechanical Ventilator 100.00 04/15/23 23:45 133 27 91 Mechanical Ventilator 100.00 04/15/23 23:40 133 30 118/79 (84) 91 Mechanical Ventilator 100.00 04/15/23 23:30 137 31 122/79 (88) 90 Mechanical Ventilator 100.00 04/15/23 23:10 39.5 140 29 113/83 (92) 90 Mechanical Ventilator 100.00 04/15/23 23:00 140 30 117/82 (92) 88 Mechanical Ventilator 100.00 04/15/23 22:56 39.2 04/15/23 22:50 140 29 95/71 (76) 88 Mechanical Ventilator 100.00 04/15/23 22:45 140 33 89 Mechanical Ventilator 100.00 04/15/23 22:40 140 29 99/71 (78) 89 Mechanical Ventilator 100.00 04/15/23 22:30 138 33 110/74 (87) 81 Mechanical Ventilator 100.00 04/15/23 22:20 138 25 111/69 (88) Mechanical Ventilator 100.00 04/15/23 22:15 137 16 89 Mechanical Ventilator 100.00 04/15/23 22:10 138 29 109/74 (89) Mechanical Ventilator 100.00 04/15/23 22:00 137 21 117/78 (83) 90 Mechanical Ventilator 100.00 04/15/23 21:50 135 29 116/79 (91) 75 Mechanical Ventilator 100.00 04/15/23 21:47 135 26 93 100 04/15/23 21:45 137 26 92 Mechanical Ventilator 100.00 04/15/23 21:40 137 29 125/84 (93) 95 Mechanical Ventilator 100.00 04/15/23 21:30 135 28 130/82 (98) 96 Mechanical Ventilator 100.00 04/15/23 21:22 38.4 04/15/23 21:20 141 94/63 04/15/23 21:20 141 22 87/56 (64) 91 Mechanical Ventilator 100.00 04/15/23 21:15 141 24 92 Mechanical Ventilator 100.00 04/15/23 21:10 142 14 94/63 (68) 90 Mechanical Ventilator 100.00 04/15/23 21:00 141 29 95/64 (78) 91 Mechanical Ventilator 100.00 04/15/23 20:40 140 20 87/60 (67) 92 Mechanical Ventilator 100.00 04/15/23 20:30 137 20 96/64 (72) 93 Mechanical Ventilator 100.00 04/15/23 20:28 39.6 04/15/23 20:20 138 28 94/62 (72) 92 Mechanical Ventilator 100.00 04/15/23 20:15 138 29 92 Mechanical Ventilator 100.00 04/15/23 20:10 138 30 82/62 (70) 94 Mechanical Ventilator 100.00 04/15/23 20:00 90 Mechanical Ventilator 100 04/15/23 20:00 39.6 138 14 85/56 (62) 86 Mechanical Ventilator 100.00 04/15/23 19:54 138 29 86/65 (71) 93 Mechanical Ventilator 100.00 04/15/23 19:45 138 23 94 Mechanical Ventilator 100.00 04/15/23 19:43 138 97/56 04/15/23 19:40 138 31 97/56 (65) 93 Mechanical Ventilator 100.00 04/15/23 19:30 137 27 99/55 (70) 94 Mechanical Ventilator 100.00 04/15/23 19:20 135 27 76/53 (64) 95 Mechanical Ventilator 100.00 04/15/23 19:15 134 23 95 Mechanical Ventilator 100.00 04/15/23 19:10 133 30 79/57 (65) 95 Mechanical Ventilator 100.00 04/15/23 19:03 131 28 87/58 (68) 93 Mechanical Ventilator 100.00 04/15/23 19:00 131 04/15/23 19:00 130 33 78/56 (65) 97 Mechanical Ventilator 100.00 04/15/23 18:26 120 30 99 100 04/15/23 18:00 117 30 85/62 (70) 97 Mechanical Ventilator 100.00 04/15/23 17:00 117 30 85/62 (70) 97 Mechanical Ventilator 100.00 04/15/23 16:00 91 Mechanical Ventilator 100 04/15/23 16:00 121 30 85/60 (68) 97 Mechanical Ventilator 100.00 04/15/23 15:07 112 29 94 100 04/15/23 15:00 108 22 86/63 (71) 96 Mechanical Ventilator 100.00 04/15/23 14:00 122 22 107/78 (88) 96 Mechanical Ventilator 100.00 04/15/23 13:37 37.7 04/15/23 13:28 123 116/79 04/15/23 13:28 125 04/15/23 13:00 128 28 124/81 (95) 95 Mechanical Ventilator 100.00 04/15/23 12:08 98 101/71 04/15/23 12:00 105 28 152/93 (112) 91 Mechanical Ventilator 100.00 04/15/23 12:00 91 Mechanical Ventilator 100 04/15/23 11:54 101 77/55 I & O 04/16/23 07:00 Intake Total 2200 ml Output Total 885 ml Balance 1315 ml Height & Weight Height: 5'6.00" Weight: 130lbs. 2.0oz. 59.163011zg; 25.63 BMI Method:Stated General Appearance: Cachetic, Severe Distress, Thin HEENT: Other (His membranes dry, pupils small) Respiratory: Crackles, Decreased Breath Sounds, Respiratory Distress, Rhonci (R>L) Cardiovascular: Regular Rate, Rhythm, No Murmur Capillary Refill: Less Than 3 Seconds Gastrointestinal: normal bowel sounds, non tender, soft Extremity: Normal Capillary Refill, Normal Range of Motion, Non Tender, No Calf Tenderness, No Pedal Edema Neurologic/Psychiatric: Other (Sedated- tremors when aroused ) Skin: Normal Color, Warm/Dry, Other (mutlple skin lesions that do not look infected) Lymphatic: No Adenopathy Results Lab Laboratory Tests 04/15/23 04:05 04/16/23 06:02 Assessment/Plan Assessment/Plan 1 DEB MELTON MD Apr 16, 2023 11:29
[2023-04-16] MEDS ORDERED: FUROSEMIDE INJECTION 40 MG/4 ML VIAL IVP NR (11:30)
[2023-04-16] MEDS ORDERED: RT-Ipratropium/Albuterol NEB 3 ML VIAL INH PRN ×2 (12:00→21:45)
--- NOTE | 2023-04-16 13:54 | Progress Note ---
Subjective Subjective Date Seen by Provider: Apr 16, 2023 Time Seen by Provider: 10:30 CIWA triggered, ativan given per protocol. BP liable MAPs ~60- Epi started 04/15 increased o2 demand- intubated 04/15 lactic acidosis worsening Nephew and daughter seen at bedside, discussed course of care and the expectation that early next week there might be a clearer picture of clinical course. Objective Exam Vital Signs Vital Signs Date Time Temp Pulse Resp B/P (MAP) Pulse Ox O2 Delivery O2 Flow Rate FiO2 04/16/23 12:00 118 16 119/85 (96) 93 Mechanical Ventilator 85.00 04/16/23 11:00 116 16 121/83 (96) 93 Mechanical Ventilator 85.00 04/16/23 10:41 Mechanical Ventilator 85.00 04/16/23 10:38 93 85 04/16/23 10:16 106 20 95 95 04/16/23 10:00 107 16 119/83 (95) 94 Mechanical Ventilator 95.00 04/16/23 09:07 37.5 04/16/23 09:00 108 19 119/82 (94) 93 Mechanical Ventilator 95.00 04/16/23 08:00 107 17 136/94 (108) 94 Mechanical Ventilator 95.00 04/16/23 07:35 37.2 04/16/23 07:00 103 04/16/23 07:00 103 19 121/80 (94) 92 Mechanical Ventilator 95.00 04/16/23 06:40 102 19 91 95 04/16/23 06:00 103 16 113/79 (90) 91 Mechanical Ventilator 95.00 04/16/23 05:00 105 17 121/83 (96) 92 Mechanical Ventilator 95.00 04/16/23 04:30 103 107/78 04/16/23 04:12 92 Mechanical Ventilator 95 04/16/23 04:10 103 17 127/84 (99) 92 Mechanical Ventilator 95.00 04/16/23 04:00 36.6 103 21 124/83 (98) 92 Mechanical Ventilator 95.00 04/16/23 03:50 104 15 124/83 (96) 91 Mechanical Ventilator 95.00 04/16/23 03:45 105 18 91 Mechanical Ventilator 95.00 04/16/23 03:40 106 16 124/84 (97) 91 Mechanical Ventilator 95.00 04/16/23 03:30 105 19 124/81 (97) 91 Mechanical Ventilator 95.00 04/16/23 03:20 105 17 124/82 (96) 91 Mechanical Ventilator 95.00 04/16/23 03:15 105 18 91 Mechanical Ventilator 95.00 04/16/23 03:00 105 19 126/82 (97) 91 Mechanical Ventilator 95.00 04/16/23 02:17 108 20 90 95 04/16/23 01:10 111 18 129/85 (96) 93 Mechanical Ventilator 100.00 04/16/23 01:00 36.8 20 124/83 (96) 93 Mechanical Ventilator 100.00 04/16/23 01:00 112 04/16/23 00:50 127/80 (93) 04/16/23 00:45 115 21 94 Mechanical Ventilator 100.00 04/16/23 00:40 128/81 (95) 04/16/23 00:30 120 20 127/84 (97) 94 Mechanical Ventilator 100.00 04/16/23 00:20 123 22 125/80 (94) 94 Mechanical Ventilator 100.00 04/16/23 00:18 123 116/79 04/16/23 00:18 123 116/79 04/16/23 00:15 124 24 94 Mechanical Ventilator 100.00 04/16/23 00:10 38.2 124 18 116/79 (103) 92 Mechanical Ventilator 100.00 04/16/23 00:00 125 25 115/77 (89) 91 Mechanical Ventilator 100.00 04/15/23 23:59 90 Mechanical Ventilator 100 04/15/23 23:55 38.5 04/15/23 23:50 129 27 118/79 (88) 91 Mechanical Ventilator 100.00 04/15/23 23:45 133 27 91 Mechanical Ventilator 100.00 04/15/23 23:40 133 30 118/79 (84) 91 Mechanical Ventilator 100.00 04/15/23 23:30 137 31 122/79 (88) 90 Mechanical Ventilator 100.00 04/15/23 23:10 39.5 140 29 113/83 (92) 90 Mechanical Ventilator 100.00 04/15/23 23:00 140 30 117/82 (92) 88 Mechanical Ventilator 100.00 04/15/23 22:56 39.2 04/15/23 22:50 140 29 95/71 (76) 88 Mechanical Ventilator 100.00 04/15/23 22:45 140 33 89 Mechanical Ventilator 100.00 04/15/23 22:40 140 29 99/71 (78) 89 Mechanical Ventilator 100.00 04/15/23 22:30 138 33 110/74 (87) 81 Mechanical Ventilator 100.00 04/15/23 22:20 138 25 111/69 (88) Mechanical Ventilator 100.00 04/15/23 22:15 137 16 89 Mechanical Ventilator 100.00 04/15/23 22:10 138 29 109/74 (89) Mechanical Ventilator 100.00 04/15/23 22:00 137 21 117/78 (83) 90 Mechanical Ventilator 100.00 04/15/23 21:50 135 29 116/79 (91) 75 Mechanical Ventilator 100.00 04/15/23 21:47 135 26 93 100 04/15/23 21:45 137 26 92 Mechanical Ventilator 100.00 04/15/23 21:40 137 29 125/84 (93) 95 Mechanical Ventilator 100.00 04/15/23 21:30 135 28 130/82 (98) 96 Mechanical Ventilator 100.00 04/15/23 21:22 38.4 04/15/23 21:20 141 94/63 04/15/23 21:20 141 22 87/56 (64) 91 Mechanical Ventilator 100.00 04/15/23 21:15 141 24 92 Mechanical Ventilator 100.00 04/15/23 21:10 142 14 94/63 (68) 90 Mechanical Ventilator 100.00 04/15/23 21:00 141 29 95/64 (78) 91 Mechanical Ventilator 100.00 04/15/23 20:40 140 20 87/60 (67) 92 Mechanical Ventilator 100.00 04/15/23 20:30 137 20 96/64 (72) 93 Mechanical Ventilator 100.00 04/15/23 20:28 39.6 04/15/23 20:20 138 28 94/62 (72) 92 Mechanical Ventilator 100.00 04/15/23 20:15 138 29 92 Mechanical Ventilator 100.00 04/15/23 20:10 138 30 82/62 (70) 94 Mechanical Ventilator 100.00 04/15/23 20:00 90 Mechanical Ventilator 100 04/15/23 20:00 39.6 138 14 85/56 (62) 86 Mechanical Ventilator 100.00 04/15/23 19:54 138 29 86/65 (71) 93 Mechanical Ventilator 100.00 04/15/23 19:45 138 23 94 Mechanical Ventilator 100.00 04/15/23 19:43 138 97/56 04/15/23 19:40 138 31 97/56 (65) 93 Mechanical Ventilator 100.00 04/15/23 19:30 137 27 99/55 (70) 94 Mechanical Ventilator 100.00 04/15/23 19:20 135 27 76/53 (64) 95 Mechanical Ventilator 100.00 04/15/23 19:15 134 23 95 Mechanical Ventilator 100.00 04/15/23 19:10 133 30 79/57 (65) 95 Mechanical Ventilator 100.00 04/15/23 19:03 131 28 87/58 (68) 93 Mechanical Ventilator 100.00 04/15/23 19:00 131 04/15/23 19:00 130 33 78/56 (65) 97 Mechanical Ventilator 100.00 04/15/23 18:26 120 30 99 100 04/15/23 18:00 117 30 85/62 (70) 97 Mechanical Ventilator 100.00 04/15/23 17:00 117 30 85/62 (70) 97 Mechanical Ventilator 100.00 04/15/23 16:00 91 Mechanical Ventilator 100 04/15/23 16:00 121 30 85/60 (68) 97 Mechanical Ventilator 100.00 04/15/23 15:07 112 29 94 100 04/15/23 15:00 108 22 86/63 (71) 96 Mechanical Ventilator 100.00 04/15/23 14:00 122 22 107/78 (88) 96 Mechanical Ventilator 100.00 I & O 04/16/23 07:00 Intake Total 2200 ml Output Total 885 ml Balance 1315 ml General Appearance: Cachetic, Severe Distress, Thin Eyes: Bilateral Eye PERRL HEENT: Other (His membranes dry, pupils small) Respiratory: Crackles, Decreased Breath Sounds, Respiratory Distress, Rhonci (R>L) Cardiovascular: Regular Rate, Rhythm, No Murmur, Tachycardia Gastrointestinal: Normal Bowel Sounds, Soft Extremity: Normal Capillary Refill, Normal Range of Motion, Non Tender, No Calf Tenderness, Swelling (UE >LE) Neurologic/Psychiatric: Other (intubated and sedated) Skin: Normal Color, Warm/Dry, Other (mutlple skin lesions that do not look infected) Lymphatic: No Adenopathy Results Lab Laboratory Tests 04/15/23 14:53: Lactic Acid Level 2.24*H 04/15/23 17:40: Lactic Acid Level 2.87*H 04/15/23 18:42: Glucometer 132H 04/15/23 19:55: Lactic Acid Level 3.06*H 04/15/23 22:14: Lactic Acid Level 3.36*H 04/15/23 23:25: Blood Gas Puncture Site R RAD, Blood Gas Patient Temperature 39.5, Arterial Blood pH 7.37, Arterial Blood Partial Pressure CO2 30L, Arterial Blood Partial Pressure O2 109H, Arterial Blood HCO3 17*L, Arterial Blood Total CO2 17.7L, Arterial Blood Oxygen Saturation 99, Arterial Blood Base Excess -7.4L, Junaid Te st NA, Blood Gas Ventilator Setting YES, Blood Gas Inspired Oxygen 100% 04/16/23 00:08: Glucometer 137H 04/16/23 00:26: Lactic Acid Level 3.61*H 04/16/23 04:54: Lactic Acid Level 3.90*H 04/16/23 05:52: Glucometer 151H 04/16/23 06:02: White Blood Count 17.8H, Red Blood Count 4.48, Hemoglobin 15.0, Hematocrit 46, Mean Corpuscular Volume 103H, Mean Corpuscular Hemoglobin 34, Mean Corpuscular Hemoglobin Concent 33, Red Cell Distribution Width 15.0H, Platelet Count 130, Mean Platelet Volume 11.3, Immature Granulocyte % (Auto) 1, Neutrophils (%) (Auto) 90H, Lymphocytes (%) (Auto) 4L, Monocytes (%) (Auto) 4, Eosinophils (%) (Auto) 0, Basophils (%) (Auto) 1, Neutrophils # (Auto) 16.0H, Lymphocytes # (Auto) 0.8L, Monocytes # (Auto) 0.7, Eosinophils # (Auto) 0.0, Basophils # (Auto) 0.1, Immature Granulocyte # (Auto) 0.3H, Sodium Level 137, Potassium Level 3.6, Chloride Level 109H, Carbon Dioxide Level 15L, Anion Gap 13, Blood Urea Nitrogen 21H, Creatinine 0.81, Estimat Glomerular Filtration Rate 96, BUN/Creatinine Ratio 26, Glucose Level 155H, Calcium Level 8.1L, Corrected Calcium 9.6, Phosphorus Level 3.2, Magnesium Level 2.1, Total Bilirubin 0.4, Aspartate Amino Transf (AST/SGOT) 88H, Alanine Aminotransferase (ALT/SGPT) 29, Alkaline Phosphatase 63, Total Protein 5.2L, Albumin 2.1L, Amylase Level 29 04/16/23 07:15: Lactic Acid Level 3.34*H 04/16/23 10:14: Blood Gas Puncture Site RR, Blood Gas Patient Temperature 36.5, Arterial Blood pH 7.35L, Arterial Blood Partial Pressure CO2 38, Arterial Blood Partial Pressure O2 75L, Arterial Blood HCO3 21L, Arterial Blood Total CO2 21.7, Arterial Blood Oxygen Saturation 95, Arterial Blood Base Excess -4.3L, Junaid Test YES-POS, Blood Gas Ventilator Setting NO, Blood Gas Inspired Oxygen 95% Microbiology 04/14/23 Blood Culture - Preliminary, Resulted No growth 04/13/23 MRSA Screen - Final, Complete MRSA not isolated 04/13/23 Urine Culture - Final, Complete Mixed Bacterial Sahil See Comments Assessment/Plan Assessment/Plan Admission Dx Acute on Chronic respiratory distress Assessment and Plan Anjel Tidwell is a 68 y/o male who was found down outside by EMS 04/13 was hyperthermic @104 degrees, confused. Has a medical history of EToH abuse, panceratitis and was recently hospitalized for a syncopal episode. Sepsis suspected aspiration PNA - Lactic acidosis 4.24 on admit, 04/16 3.34 - Zoysn started - MRSA nares Neg - NGTD on BC - UC- normal sahil - BP liable. Epi and Norepi started 04/15 PLAN >Continue Zoysn > continue EPI and NorEpi > LA Qday > LR @ 75ml/hr > 40 mg IV lasix, patient was volume up on PE Acute hypoxic resp failure - CXR showed possible aspiration R lobe -COVID/ FLU Neg - suspect hypoxemia 2/2 to aspiration PNA - Increased O2 demands 04/15 PLAN > continue ABX > Intubated > D/c precedex > Propofol for sedation. ETOH Abuse Encephalopathy - Suspect Wernicke's - CTH 04/13 - stable microvascular ischemia , no acute findings - CIWA-20 overnight -S/P 2g ativan -increased tremors and agitation - Precedex started 04/13 PM- D/cd on intubation. Propofol for sedation. PLAN > Continue CIWS > PRN ativan -continue Thiamine -Q4h vitals Hypokalemia- replace Hyponatremia- mild - monitor COPD CTA chest 04/02/23: - severe emphysema - cont nebs Lines : PIV, (Central Line Necessity Reviewed) Parada: in place OG: Nutrition: NPO Analgesia: Anxiety/ delirium- PRN ativan VTE Prophylaxis: Lovenox Stress Ulcer Prophylaxis:n/a Stanley Silverman MS4 Problems: (1) ETOH abuse (2) DVT prophylaxis (3) Severe sepsis Admission Dx Acute on Chronic respiratory distress Clinical Quality Measures Admission Status Admission Dx Acute on Chronic respiratory distress Supervisory-Addendum Brief Verification & Attestation Participated in pt care: history, physical Personally performed: exam, history Care discussed with: Medical Student Procedures: n/a Verification and Attestation of Medical Student E/M Service A medical student performed and documented this service in my presence. I reviewed and verified all information documented by the medical student and made modifications to such information, when appropriate. I personally performed the physical exam and medical decision making. Caryn Huerta, Apr 16, 2023,16:35 Agree with above, in addition Severe Sepsis with septic Shock Acute Respiratory Failure with hypoxia Bilateral PNA Altered Mental Status - Admit to ICU, Patient started on bipap today,Sepsis protocol with IVFs, low UOP, strict I/Os 04/16: Patient intubated and comfortable, sedation EtOH dependence h/o substance abuse - CIWS, high risk for intubation, Thiamine and folic acid 04/16: Discussed keeping him intubated and sedated through withdraw and then later this weekend starting titration and SBT Hyponatremia Hypokalemia - IVFs, replace and repeat BMP STANLEY SILVERMAN Apr 16, 2023 13:54 CARYN HUERTA MD Apr 16, 2023 16:42
[2023-04-16 15:01] VITALS: BP 96/70
[2023-04-16] MEDS: ENOXAPARIN 40 MG/0.4 ML SYRINGE SC SCH (15:27)
[2023-04-16] MEDS: POTASSIUM CL 10MEQ/50ML IVPB 50 ML IV SCH (15:42)
--- NOTE | 2023-04-16 16:52 | Diagnostic Imaging Report ---
INDICATION: NG tube placement Supine and upright abdominal images show postoperative changes from fusion of the thoracolumbar spine. There is some atelectasis and/or infiltrate at both lung bases with small effusions. The gallbladder appears to be surgically absent. Bowel gas pattern is normal. IMPRESSION: Postsurgical changes as noted. No acute abnormality seen in the abdomen. There are bilateral pleural effusions with some bibasilar consolidation. Dictated by: Dictated on workstation # [id number]
[2023-04-16] MEDS ORDERED: KETOROLAC INJ 15 MG/ML VIAL IVP NR (17:00)
[2023-04-16 18:17] VITALS: BP 116/80
--- NOTE | 2023-04-16 20:06 | Diagnostic Imaging Report ---
EXAMINATION: Chest 1 view HISTORY: Hypoxia COMPARISON: 04/16/2023 FINDINGS: Endotracheal tube tip terminates 4 cm above the key. Gastric tube is in the stomach. Right upper extremity peripherally inserted central venous catheter tip terminates in the superior vena cava. Bilateral pleural effusions are unchanged. Airspace opacities in lung bases are unchanged. No pneumothorax. Heart size is normal. IMPRESSION: 1. Unchanged airspace opacities and pleural effusions favored to represent pneumonia. Dictated by: Dictated on workstation # [id number]
[2023-04-16 20:50] VITALS: BP 76/58
[2023-04-16] MEDS: PHENYLEPHRINE DRIP 250 ML IV SCH (20:50)
[2023-04-16] MEDS ORDERED: ACETAMINOPHEN 650 MG SUPPOSITORY PR PRN (21:45)
[2023-04-16] MEDS ORDERED: ONDANSETRON INJECTION 4 MG/2 ML (SDV) IVP PRN (21:45)
[2023-04-16] MEDS ORDERED: BISACODYL 10 MG SUPPOSITORY PR PRN (21:45)
[2023-04-16] MEDS ORDERED: ARTIFICAL TEARS Ophth solution 0.4 ML UNIT DOSE OU PRN (21:45)
[2023-04-16] MEDS ORDERED: GLYCOPYRROLATE INJ 0.2 MG/ML 2 ML VIAL IV PRN (21:45)
[2023-04-16] MEDS ORDERED: LORazepam 1 MG TABLET SL PRN (21:45)
[2023-04-16] MEDS ORDERED: PROMETHAZINE INJ 25 MG/ML VIAL IVP PRN (21:45)
[2023-04-16] MEDS ORDERED: SALIVA SUBSTITUTE 60 ML SPRAY MM PRN (21:45)
[2023-04-16] MEDS ORDERED: morphine INJ 4 MG/ML 1 ML (VIAL/SYRINGE) IV PRN (21:45)
[2023-04-16] MEDS ORDERED: morphine INJ 4 MG/ML 1 ML (VIAL/SYRINGE) ONE (22:04)
== END 2023-04-17 01:00 | disposition expired | DRG 871 ==
LOC: EDUNIT# 10:31 → ER 10:32 → ICU 12:37
PROVIDERS: ADMIT Family Medicine; ATTEND Family Medicine
PROC: 5A09457 Assistance with Respiratory Ventilation, 24-96 Consecutive Hours, Continuous Positive Airway Pressure (ICD-10-PCS; 2023-04-14)
PROC: 5A1945Z Respiratory Ventilation, 24-96 Consecutive Hours (ICD-10-PCS; principal; 2023-04-15)
PROC: 0BH17EZ Insertion of Endotracheal Airway into Trachea, Via Natural or Artificial Opening (ICD-10-PCS; 2023-04-15)
DX: A41.9 Sepsis, unspecified organism (principal); J18.9 Pneumonia, unspecified organism; J96.01 Acute respiratory failure with hypoxia; G93.40 Encephalopathy, unspecified; F10.239 Alcohol dependence with withdrawal, unspecified; E87.1 Hypo-osmolality and hyponatremia; E87.20 Acidosis, unspecified; Z66 Do not resuscitate; Z51.5 Encounter for palliative care; Z20.822 Contact with and (suspected) exposure to COVID-19; R65.20 Severe sepsis without septic shock; Z59.00 Homelessness unspecified; F19.10 Other psychoactive substance abuse, uncomplicated; E87.6 Hypokalemia; E86.0 Dehydration; J43.9 Emphysema, unspecified; G40.909 Epilepsy, unspecified, not intractable, without status epilepticus; S00.81XA Abrasion of other part of head, initial encounter; E78.00 Pure hypercholesterolemia, unspecified; F17.210 Nicotine dependence, cigarettes, uncomplicated; I10 Essential (primary) hypertension; K21.9 Gastro-esophageal reflux disease without esophagitis; M19.90 Unspecified osteoarthritis, unspecified site; Y90.0 Blood alcohol level of less than 20 mg/100 ml; W19.XXXA Unspecified fall, initial encounter
CPT/HCPCS: 36415; 36569; 36600; 70450; 71045; 74019; 76937; 80053; 80320; 81000; 82150; 82550; 82805; 82947; 83605; 83735; 84100; 84132; 84478; 84484; 85007; 85025; 85027; 85610; 85730; 87040; 87070; 87081; 87088; 87205; 87636; 94002; 94003; 94640; 94660; 94799